=== PATIENT | female | born 1940 | race American Indian/Alaskan Native ===

== ENCOUNTER 2016-04-08 14:31 | Emergency (ER) | payer MEDICARE ==
--- NOTE | 2016-04-08 15:27 | XRay Report ---
PORTABLE CHEST INDICATION: Difficulty breathing. COMPARISON: 11/06/2011 FINDINGS: Portable, frontal chest radiograph again demonstrates post CABG changes with stable cardiomediastinal silhouette, aortic atherosclerotic calcifications and few possible calcified mediastinal lymph nodes. Slightly prominent lung markings may in part be technical. No pleural effusions or CHF. EKG lead. Stable bones. CONCLUSION: No acute disease in the chest, stable. Thank you for the opportunity to participate in this patient's care.
[2016-04-08 16:01] LABS: Anion Gap 21 mmol/L; BUN/Creatinine Ratio 11.25; Blood Urea Nitrogen 18 mg/dL (7-17); Carbon Dioxide 23 mmol/L (22-30); Chloride 101.6 mmol/L (98-107); Glucose 127 mg/dL (65-100); Potassium 4.5 mmol/L (3.6-5.0); Sodium 141 mmol/L (137-145)
[2016-04-08 16:12] LABS: Basophils % (Auto) 0.6 % (0.0-1.8); Hematocrit 37.6 % (30.3-42.9); Hemoglobin 11.8 gm/dl (10.1-14.3); Mean Corpuscular HGB Conc 32 % (30-34); Mean Corpuscular Hemoglobin 27 pg (28-32); Mean Corpuscular Volume 84 fl (79-97); Platelet Count 216 K/mm3 (140-440); Red Blood Count 4.46 M/mm3 (3.65-5.03); Red Cell Distribution Width 15.7 % (13.2-15.2); White Blood Count 6.6 K/mm3 (4.5-11.0)
[2016-04-08] MEDS ORDERED: TESSALON PERLES PO ONE (16:13)
[2016-04-08] MEDS ORDERED: DUONEB 0.5 MG-3 MG/3 ML SOLN IH ONE (16:13)
--- NOTE | 2016-04-08 16:41 | Emergency Department Report ---
HPI - General Chief Complaint: Dyspnea/Respdistress Time Seen by Provider: 04/08/16 15:56 - HPI HPI: The patient is a 75-year-old female with a significant history of asthma, who presents for evaluation of dyspnea. The patient reports dyspnea since last night at 11 PM, greater than 12 hours prior to my evaluation. She states that her dyspnea has been constant since onset, progressive, severe since this morning, exacerbated with exertion, and associated with tightness of the chest. She also reports a mild cough productive of yellow sputum. She states that her symptoms are consistent with her previous asthma exacerbations. The patient denies fever, sore throat, syncope, hemoptysis, unilateral leg swelling , arthralgias, myalgias, rash,, recent immobilization, history of DVT or PE, recent cancer. ED Past Medical Hx - Past Medical History Hx Hypertension: Yes Hx Heart Attack/AMI: Yes (2007) Hx Congestive Heart Failure: Yes Hx Diabetes: Yes Hx Renal Disease: Yes (CKD) Hx Arthritis: Yes Hx Seizures: No Hx Kidney Stones: Yes Hx Asthma: Yes Hx COPD: Yes Hx HIV: No Additional medical history: facial tic - Surgical History Hx Open Heart Surgery: Yes Additional Surgical History: right knee surgery, right foot surgery - Social History Smoking Status: Former Smoker - Medications Home Medications: Home Medications Medication Instructions Recorded Confirmed Last Taken Type Aspirin [Aspirin TAB] 81 mg PO QDAY 04/28/13 08/02/15 08/05/14 History Clopidogrel Bisulfate [Plavix] 75 mg PO DAILY 04/28/13 08/02/15 08/05/14 History Ezetimibe [Zetia] 10 mg PO QDAY 04/28/13 08/02/15 08/09/14 History Famotidine [Pepcid] 20 mg PO DAILY 04/28/13 08/02/15 08/09/14 History Ferrous Sulfate [Ferrous Sulfate 325 mg PO DAILY 04/28/13 08/02/15 08/08/14 History Oral Liq 12.5 Mg/0.83 Ml] Gabapentin 300 mg PO BID 04/28/13 08/02/15 08/09/14 History Ipratropium/Albuterol Sulfate 1 spray IH QID 04/28/13 08/02/15 08/10/14 07:30 History [Combivent Respimat] Metoprolol [Lopressor TAB] 50 mg PO BID 04/28/13 08/02/15 08/10/14 07:30 History Simvastatin 20 mg PO QDAY 04/28/13 08/02/15 08/10/14 07:30 History amLODIPine [Norvasc] 5 mg PO DAILY 04/28/13 08/02/15 08/10/14 07:30 History cloNIDine [Catapres] 0.3 mg PO QHS 04/28/13 08/02/15 08/09/14 21:30 History Budesoni/Formotero 160-4.5(Nf) 2 puff IH BID 11/01/13 08/02/15 08/10/14 07:30 History [Symbicort 160-4.5 (Nf)] Colchicine [Colcrys] 0.6 mg PO DAILY 11/01/13 08/02/15 08/08/14 History HYDROcodone/APAP 7.5-325 [[place] 1 tab PO Q4-6H 08/02/15 08/02/15 Unknown History 7.5-325 mg TAB] Hydrochlorothiazide [HCTZ] 25 mg PO QDAY 08/02/15 08/02/15 Unknown History Montelukast [Singulair] 10 mg PO QPM 08/02/15 08/02/15 Unknown History ProAir HFA Inhaler 2 puff IH Q4-6H 08/02/15 08/02/15 Unknown History Tramadol HCl [traMADol ER 100 MG] 100 mg PO QDAY 08/02/15 08/02/15 Unknown History Budesonide [Pulmicort Respules] 1 mg IH Q12HRT nebu 08/05/15 Unknown Rx predniSONE [Deltasone] 40 mg PO QDAY #5 tablet 08/05/15 Unknown Rx ALBUTEROL Inhaler [ProAir HFA 2 puff IH QID PRN #1 inhalation 04/08/16 Unknown Rx Inhaler] Albuterol Sulfate [Albuterol 0.63% 0.83 mg IH TID PRN #20 vial.neb 04/08/16 Unknown Rx NEBS] Azithromycin [Zithromax Z-KARI] 250 mg PO QDAY #6 tablet 04/08/16 Unknown Rx Benzonatate [Tessalon Perles] 100 mg PO Q8HR #20 capsule 04/08/16 Unknown Rx guaiFENesin [Mucinex] 600 mg PO Q6HR #20 tab.er.12h 04/08/16 Unknown Rx ED Review of Systems ROS: Stated complaint: CRUZITO Other details as noted in HPI Constitutional: denies: fever ENT: denies: throat or neck pain Respiratory: reports cough, shortness of breath Cardiovascular: denies: chest pain Endocrine: denies unexplained weight loss or gain Gastrointestinal: denies: abdominal pain, nausea Genitourinary: denies: dysuria Musculoskeletal: denies: leg swelling Skin: denies: rash Neurological: denies: headache Hematological/Lymphatic: denies: easy bleeding or easy bruising Psych: denies sadness or hopelessness Physical Exam - Physical Exam Vital Signs: Vital Signs 04/08/16 04/08/16 14:40 16:28 Temperature 99.2 F Pulse Rate 42 L Pulse Rate [ 70 Anterior Bilateral Throughout] Respiratory 24 Rate Respiratory 18 Rate [Anterior Bilateral Throughout] Blood Pressure 144/84 [Right] O2 Sat by Pulse 100 Oximetry Physical Exam: General: well-nourished, well-developed, no acute distress Head: Normocephalic, atraumatic Eyes: normal sclera ENT: Mucous membranes are pink and moist Neck: trachea midline, neck supple, No neck stiffness, no cervical adenopathy Respiratory: Mildly diminished breath sounds and wheezing present throughout lung [place] bilaterally Cardio: S1 and S2 present, no murmurs, rubs, gallops, capillary refill is brisk Abdomen: soft abdomen, no tenderness Musc: No pitting edema Skin: No rash Neuro: no facial drooping, normal speech Psych: Normal affect ED Course Vital Signs 04/08/16 04/08/16 14:40 16:28 Temperature 99.2 F Pulse Rate 42 L Pulse Rate [ 70 Anterior Bilateral Throughout] Respiratory 24 Rate Respiratory 18 Rate [Anterior Bilateral Throughout] Blood Pressure 144/84 [Right] O2 Sat by Pulse 100 Oximetry ED Medical Decision Making - Lab Data Result diagrams: 04/08/16 15:25 04/08/16 15:25 - Medical Decision Making The patient was seen and examined by myself. The patient is placed on a insurance marketing rep and continuous pulse ox. On initial evaluation, the patient was found to be in no distress. Evaluation orders were placed. The patient is given Tessalon Perles for her cough and a duoneb breathing treatment for txt of COPD. the patient received Solu-Medrol and magnesium via EMS prior to arrival. Chest x-ray negative for focal consolidation, pleural effusions, pulmonary congestion, pneumothorax, or other acute cardio pulmonary disease process. Lab results are grossly not concerning and are at patient baseline. The patient was reevaluated and reported that their symptoms were markedly improved. The patient is stable for discharge with outpatient follow-up. The patient is given follow-up and return instructions. The patient expressed understanding and agreed with the plan. The patient is given a prescription for prednisone. The patient is discharged in stable condition. Critical care attestation.: If time is entered above; I have spent that time in minutes in the direct care of this critically ill patient, excluding procedure time. ED Disposition Clinical Impression: Acute exacerbation of chronic obstructive pulmonary disease (COPD), Upper respiratory infection, acute Disposition: DISCHARGED TO HOME OR SELFCARE Is pt being admited?: No Does the pt Need Aspirin: No Condition: Stable Instructions: Upper Respiratory Infection (ED), Chronic Obstructive Pulmonary Disease (ED), Viral Syndrome (ED) Prescriptions: ALBUTEROL Inhaler [ProAir HFA Inhaler] 2 puff IH QID PRN #1 inhalation PRN Reason: Shortness Of Breath Albuterol Sulfate [Albuterol 0.63% NEBS] 0.83 mg IH TID PRN #20 vial.neb PRN Reason: Wheezing Azithromycin [Zithromax Z-KARI] 250 mg PO QDAY #6 tablet Benzonatate [Tessalon Perles] 100 mg PO Q8HR #20 capsule guaiFENesin [Mucinex] 600 mg PO Q6HR #20 tab.er.12h Referrals: PRIMARY CARE, [Primary Care Provider] - 3-5 Days Time of Disposition: 16:35
[2016-04-08 17:02] VITALS: BP 120/61
[2016-04-08] MEDS ORDERED: MUCINEX ER PO ONE (17:48)
== END 2016-04-08 17:20 | disposition home or self-care (01) ==
LOC: ED 14:31
DX: J44.1 Chronic obstructive pulmonary disease with (acute) exacerbation (principal); J06.9 Acute upper respiratory infection, unspecified; J45.909 Unspecified asthma, uncomplicated; I25.2 Old myocardial infarction; E11.22 Type 2 diabetes mellitus with diabetic chronic kidney disease; I13.0 Hypertensive heart and chronic kidney disease with heart failure and stage 1 through stage 4 chronic kidney disease, or unspecified chronic kidney disease; N18.9 Chronic kidney disease, unspecified; I50.9 Heart failure, unspecified; Z87.442 Personal history of urinary calculi; Z98.890 Other specified postprocedural states; Z87.891 Personal history of nicotine dependence; Z91.040 Latex allergy status; Z91.011 Allergy to milk products; Z79.82 Long term (current) use of aspirin; Z79.899 Other long term (current) drug therapy
CPT/HCPCS: 36415; 71010; 80048; 84484; 85025; 93005; 93010; 94640

== ENCOUNTER 2016-05-28 20:35 | Inpatient (IN) | payer MEDICARE ==
[2016-05-28] MEDS ORDERED: MAGNESIUM SULFATE 2GM/50ML 2 GM/50 ML BAG IV ONE (20:38)
[2016-05-28] MEDS: ATROVENT IH ONE ×2 (20:39→20:53)
[2016-05-28] MEDS: PROVENTIL IH ONE ×2 (20:39→20:53)
--- NOTE | 2016-05-28 20:42 | Emergency Department Report ---
HPI - General Time Seen by Provider: 05/28/16 20:37 - HPI HPI: Room 21 The patient is a 75-year-old female presenting with a chief complaint of shortness of breath. Patient states for the past 3 days she has had worsening shortness of breath and chest congestion. Patient denies chest pain but admits to feeling as though there is a lot of phlegm in her chest. The patient's symptoms worsened today and EMS was called. EMS states the patient was tripoding upon arrival. The patient was administered albuterol and Atrovent addition to Solu-Medrol 125 mg IV. The patient still complains of shortness of breath upon arrival to the ED Location: Lungs Duration: 3 Days Quality: This of breath Severity:. Moderate Modifying factors: [see above] Context: [see above] Mode of transportation: [not driving] ED Past Medical Hx - Past Medical History Hx Hypertension: Yes Hx Heart Attack/AMI: Yes (2007) Hx Congestive Heart Failure: Yes Hx Diabetes: Yes Hx Renal Disease: Yes (CKD) Hx Arthritis: Yes Hx Kidney Stones: Yes Hx Asthma: Yes Hx COPD: Yes Additional medical history: facial tic - Surgical History Hx Open Heart Surgery: Yes Additional Surgical History: right knee surgery, right foot surgery - Family History Family history: no significant - Social History Smoking Status: Former Smoker - Medications Home Medications: Home Medications Medication Instructions Recorded Confirmed Last Taken Type Aspirin [Aspirin TAB] 81 mg PO QDAY 04/28/13 08/02/15 08/05/14 History Clopidogrel Bisulfate [Plavix] 75 mg PO DAILY 04/28/13 08/02/15 08/05/14 History Ezetimibe [Zetia] 10 mg PO QDAY 04/28/13 08/02/15 08/09/14 History Famotidine [Pepcid] 20 mg PO DAILY 04/28/13 08/02/15 08/09/14 History Ferrous Sulfate [Ferrous Sulfate 325 mg PO DAILY 04/28/13 08/02/15 08/08/14 History Oral Liq 12.5 Mg/0.83 Ml] Gabapentin 300 mg PO BID 04/28/13 08/02/15 08/09/14 History Ipratropium/Albuterol Sulfate 1 spray IH QID 04/28/13 08/02/15 08/10/14 07:30 History [Combivent Respimat] Metoprolol [Lopressor TAB] 50 mg PO BID 04/28/13 08/02/15 08/10/14 07:30 History Simvastatin 20 mg PO QDAY 04/28/13 08/02/15 08/10/14 07:30 History amLODIPine [Norvasc] 5 mg PO DAILY 04/28/13 08/02/15 08/10/14 07:30 History cloNIDine [Catapres] 0.3 mg PO QHS 04/28/13 08/02/15 08/09/14 21:30 History Budesoni/Formotero 160-4.5(Nf) 2 puff IH BID 11/01/13 08/02/15 08/10/14 07:30 History [Symbicort 160-4.5 (Nf)] Colchicine [Colcrys] 0.6 mg PO DAILY 11/01/13 08/02/15 08/08/14 History HYDROcodone/APAP 7.5-325 [[place] 1 tab PO Q4-6H 08/02/15 08/02/15 Unknown History 7.5-325 mg TAB] Montelukast [Singulair] 10 mg PO QPM 08/02/15 08/02/15 Unknown History ProAir HFA Inhaler 2 puff IH Q4-6H 08/02/15 08/02/15 Unknown History Budesonide [Pulmicort Respules] 1 mg IH Q12HRT nebu 08/05/15 Unknown Rx ALBUTEROL Inhaler [ProAir HFA 2 puff IH QID PRN #1 inhalation 04/08/16 Unknown Rx Inhaler] Furosemide [Lasix] 20 mg PO QDAY 05/28/16 05/28/16 Unknown History ED Review of Systems ROS: Stated complaint: CRUZITO Other details as noted in HPI Comment: All other systems reviewed and negative Constitutional: denies: chills, fever Eyes: denies: eye pain, eye discharge, vision change ENT: denies: ear pain, throat pain Respiratory: shortness of breath Cardiovascular: denies: chest pain, palpitations Endocrine: no symptoms reported Gastrointestinal: denies: abdominal pain, nausea, diarrhea Genitourinary: denies: urgency, dysuria, discharge Musculoskeletal: denies: back pain, joint swelling, arthralgia Skin: denies: rash, lesions Neurological: denies: headache, weakness, paresthesias Psychiatric: denies: anxiety, depression Hematological/Lymphatic: denies: easy bleeding, easy bruising Physical Exam - Physical Exam Physical Exam: GENERAL: The patient is well-developed well-nourished female lying on stretcher appearing to be in moderate respiratory discomfort. [] HEENT: Normocephalic. Atraumatic. Extraocular motions are intact. Patient has moist mucous membranes. NECK: Supple. Trachea midline CHEST/LUNGS: Diffuse wheezing. There is moderate respiratory distress noted. HEART/CARDIOVASCULAR: Regular. There is tachycardia. There is no gallop rub or murmur. ABDOMEN: Abdomen is soft, nontender. Patient has normal bowel sounds. There is no abdominal distention. SKIN: There is no rash. There is no edema. There is no diaphoresis. NEURO: The patient is awake, alert, and oriented. The patient is cooperative. The patient has normal speech MUSCULOSKELETAL: There is no evidence of acute injury. ED Medical Decision Making - Lab Data Result diagrams: 05/28/16 20:47 05/28/16 20:47 Laboratory Tests 05/28/16 05/28/16 05/28/16 20:47 20:47 20:47 WBC 8.8 RBC 4.78 Hgb 12.7 Hct 39.6 MCV 83 MCH 27 L MCHC 32 RDW 16.5 H Plt Count 194 Lymph % (Auto) 30.4 [place] % (Auto) 14.0 H Eos % (Auto) 4.2 Baso % (Auto) 0.6 Lymph # 2.7 [place] # 1.2 H Eos # 0.4 Baso # 0.1 Seg Neutrophils % 50.8 Seg Neutrophils # 4.5 PT 13.5 INR 1.04 APTT 29.7 Sodium 145 Potassium 3.6 Chloride 107.1 H Carbon Dioxide 22 Anion Gap 20 BUN 20 H Creatinine 1.6 H Estimated GFR 38 BUN/Creatinine Ratio 12.50 Glucose 119 H Calcium 8.7 Total Creatine Kinase 147 H CK-MB (CK-2) 2.7 CK-MB (CK-2) Rel Index 1.8 Troponin T < 0.010 NT-Pro-B Natriuret Pep 564.7 - Radiology Data Radiology results: image reviewed (chest x-ray) interpreted by me: This x-ray- no definite focal infiltrates, no pneumothorax - Differential Diagnosis COPD exacerbation, CHF exacerbation, pneumonia Critical care attestation.: If time is entered above; I have spent that time in minutes in the direct care of this critically ill patient, excluding procedure time. ED Disposition Clinical Impression: COPD exacerbation, Shortness of breath Disposition: OP ADMITTED IP TO THIS HOSP Is pt being admited?: Yes Does the pt Need Aspirin: No Condition: Fair Instructions: Chronic Obstructive Pulmonary Disease (ED) Time of Disposition: 21:40 (hospitalist paged)
[2016-05-28 21:02] LABS: Basophils % (Auto) 0.6 % (0.0-1.8); Eosinophils % (Auto) 4.2 % (0.0-4.3); Hematocrit 39.6 % (30.3-42.9); Hemoglobin 12.7 gm/dl (10.1-14.3); Mean Corpuscular HGB Conc 32 % (30-34); Mean Corpuscular Hemoglobin 27 pg (28-32); Mean Corpuscular Volume 83 fl (79-97); Platelet Count 194 K/mm3 (140-440); Red Blood Count 4.78 M/mm3 (3.65-5.03); Red Cell Distribution Width 16.5 % (13.2-15.2); White Blood Count 8.8 K/mm3 (4.5-11.0)
[2016-05-28 21:13] LABS: INR 1.04 (0.87-1.13); Partial Thromboplastin Time 29.7 Sec. (24.2-36.6)
--- NOTE | 2016-05-28 21:22 | Admit Criteria Form ---
Admission Criteria Documentation: COPD Clinical Indications for Admission to Inpatient Care (Place 'X' for any and all applicable criteria): Admission is indicated for ANY ONE of the following (1)(2)(3): [ ]I. Acute exacerbation by high-risk comorbidity (e.g., pneumonia, dysrhythmia, heart failure, pleural effusion, pneumothorax) or severe underlying COPD (e.g., steroid dependent) [X ]II. Inpatient admission required rather than observation care (see Chronic Obstructive Pulmonary Disease: Observation Care) because of ANY ONE of the following: [ X]a) New or pre-existing signs or symptoms of COPD (eg, dyspnea or Tachypnea at rest or with minimal activity) that persist despite outpatient and observation care treatment [ ]b) New-onset hypoxemia (room air SaO2 less than 90%, PO2 less than 60 mm Hg (8.0 kPa)) that persists despite outpatient and observation care treatment [ ]c) Worsening of pre-existing hypoxemia (eg, new or increased requirement for supplemental oxygen to maintain oxygenation at baseline level) that persists despite outpatient and observation care treatment, with oxygen treatment needs performable only in acute inpatient setting [ ]d) Hypercarbia (PCO2 greater than 40 mm Hg (5.3 kPa))-induced respiratory acidosis (pH less than 7.35) that persists despite outpatient and observation care treatment [ ]e) Supplemental oxygen or respiratory treatments for over 24 hours that are performable only in acute inpatient setting [ ]f) Chest tube placement with active evacuation (e.g., suction, drainage) (5) [ ]g) Other condition, treatment or monitoring requiring inpatient admission [ ]III. Planned invasive surgical or diagnostic procedures requiring acute- care hospitalization [ ]IV. Acute respiratory failure (e.g., uncompensated hypercarbia, severe hypoxemia) [ ]V. Severe comorbid condition (e.g., severe steroid myopathy, acute vertebral fracture) that has acutely worsened pulmonary function [ ]. Confusion state, lethargy, obtundation, stupor or coma Extended stay beyond goal length of stay may be needed for (31)(32): [ ]a ) Respiratory Failure. [ ]b) Severe or persisting hypoxemia or hypercarbia [ ]c) Severe or persistent dyspnea [ ]d) Comorbidities (e.g. chronic heart failure, atrial fibrillation with rapid response, pneumonia) [ ]e) Malnutrition The original [facility] content created by [facility] has been revised. The portions of the content which have been revised are identified through the use of italic text or in bold, and [facility] has neither reviewed nor approved the modified material. All other unmodified content is copyright [facility]. Please see references footnoted in the original [facility] edition 2016 Admission Criteria Met: Yes
[2016-05-28 21:27] LABS: Creatine Kinase MB 2.7 ng/mL (0.0-4.0)
[2016-05-28 21:28] LABS: Anion Gap 20 mmol/L; Blood Urea Nitrogen 20 mg/dL (7-17); Calcium 8.7 mg/dL (8.4-10.2); Carbon Dioxide 22 mmol/L (22-30); Chloride 107.1 mmol/L (98-107); Creatine Kinase 147 units/L (30-135); Glucose 119 mg/dL (65-100); Potassium 3.6 mmol/L (3.6-5.0); Sodium 145 mmol/L (137-145)
--- NOTE | 2016-05-28 22:59 | XRay Report ---
FINAL REPORT PROCEDURE: XR CHEST 1V AP TECHNIQUE: Chest radiograph anteroposterior view. CPT 44248 HISTORY: shortness of breath COMPARISON: No prior studies are available for comparison. FINDINGS: Heart: Postsurgical changes Mediastinum/Vessels: Normal contour. Lungs/Pleural space: No infiltrate, effusion, or pneumothorax is seen. Bony thorax: No acute osseous abnormality. Life support devices: None. IMPRESSION: No radiographic evidence of acute cardiopulmonary abnormality.
[2016-05-28] MEDS ORDERED: TYLENOL PO PRN (23:40)
[2016-05-28] MEDS ORDERED: MILK OF MAGNESIA PO PRN (23:40)
[2016-05-28] MEDS ORDERED: DULCOLAX PR PRN (23:40)
[2016-05-28] MEDS ORDERED: ZOFRAN IV PRN (23:40)
--- NOTE | 2016-05-28 23:43 | History and Physical Report ---
History of Present Illness Date of examination: 05/28/16 History of present illness: 75 year old woman with history of hypertension, coronary artery disease, CHF, diabetes, chronic kidney disease, gout, COPD comes emergency room with complaints of shortness of breath 3 day. Also complaining of cough productive of yellow phlegm. Patient states she had bleeding on her pad a few days ago, she is not sure if it was vaginal or rectal, he only had one episode Patient denies chest pain, palpitation, abdominal pain, dysuria, frequency, focal weakness, dysarthria, fever chills, polydipsia polyuria, hot or cold intolerance, easy bruisability, or rash or bleeding from mucosal membrane, rhinorrhea, epistaxis, earache, tinnitus, blurry vision, eye discharge, anxiety , depression. Other review of systems negative PAST SURGICAL HISTORY: Right knee, foot surgery, CABG SOCIAL HISTORY: Smoking, no alcohol or drugs FAMILY HISTORY: Hypertension Medications and Allergies Allergies Allergy/AdvReac Type Severity Reaction Status Date / Time latex Allergy Hives Verified 08/02/15 20:42 milk Allergy Rash Verified 08/02/15 14:07 Home Medications Medication Instructions Recorded Confirmed Last Taken Type Aspirin [Aspirin TAB] 81 mg PO QDAY 04/28/13 05/28/16 08/05/14 History Clopidogrel Bisulfate [Plavix] 75 mg PO DAILY 04/28/13 05/28/16 08/05/14 History Ezetimibe [Zetia] 10 mg PO QDAY 04/28/13 05/28/16 08/09/14 History Famotidine [Pepcid] 20 mg PO DAILY 04/28/13 05/28/16 08/09/14 History Ferrous Sulfate [Ferrous Sulfate 325 mg PO DAILY 04/28/13 05/28/16 08/08/14 History Oral Liq 12.5 Mg/0.83 Ml] Gabapentin 300 mg PO BID 04/28/13 05/28/16 08/09/14 History Ipratropium/Albuterol Sulfate 1 spray IH QID 04/28/13 05/28/16 08/10/14 07:30 History [Combivent Respimat] Metoprolol [Lopressor TAB] 50 mg PO BID 04/28/13 05/28/16 08/10/14 07:30 History Simvastatin 20 mg PO QDAY 03/01/3005/28/16 08/10/14 07:30 History amLODIPine [Norvasc] 10 mg PO DAILY 04/28/13 05/28/16 08/10/14 07:30 History cloNIDine [Catapres] 0.1 mg PO QHS 04/28/13 05/28/16 08/09/14 21:30 History Budesoni/Formotero 160-4.5(Nf) 2 puff IH BID 11/01/13 05/28/16 08/10/14 07:30 History [Symbicort 160-4.5 (Nf)] Colchicine [Colcrys] 0.6 mg PO DAILY 11/01/13 05/28/16 08/08/14 History HYDROcodone/APAP 7.5-325 [[place] 1 tab PO Q4-6H 08/02/15 05/28/16 Unknown History 7.5-325 mg TAB] Montelukast [Singulair] 10 mg PO QPM 08/02/15 05/28/16 Unknown History ProAir HFA Inhaler 2 puff IH Q4-6H 08/02/15 05/28/16 Unknown History Budesonide [Pulmicort Respules] 1 mg IH Q12HRT nebu 08/05/15 05/28/16 Unknown Rx ALBUTEROL Inhaler [ProAir HFA 2 puff IH QID PRN #1 inhalation 04/08/16 05/28/16 Unknown Rx Inhaler] Furosemide [Lasix] 20 mg PO QDAY 05/28/16 05/28/16 Unknown History Exam - Physical Exam Narrative exam: Gen. appearance: Patient lying in bed, no apparent distress HEENT: Normocephalic, atraumatic, pupils equally round and reactive to light, extraocular movement intact, and no sclericterus,. No JVD or thyromegaly or nodule,neck supple, no carotid bruit ,mucous membranes moist, no exudate or erythema Heart: S1, S2, regular rate and rhythm Lungs: Wheezing bilaterally, breathing comfortable Abdomen: Positive bowel sounds, nontender, nondistended, no organomegaly Extremity: No edema, cyanosis, clubbing Skin: No rash, nodules, warm, dry Neuro: Oriented 3, cranial nerves II-12 intact, speech is fluent, motor and sensory intact Rectal: brown stool, heme negative - Constitutional Vitals: Temp Pulse Resp BP Pulse Ox 98.2 F 85 22 135/69 95 05/28/16 20:35 05/28/16 23:41 05/28/16 23:41 05/28/16 23:41 05/28/16 23:41 Results - Labs CBC & Chem 7: 05/28/16 20:47 05/28/16 20:47 Labs: Abnormal lab results 05/28/16 05/28/16 Range/Units 20:47 20:47 MCH 27 L (28-32) pg RDW 16.5 H (13.2-15.2) % [place] % (Auto) 14.0 H (0.0-7.3) % [place] # 1.2 H (0.0-0.8) K/mm3 Chloride 107.1 H (98-107) mmol/L BUN 20 H (7-17) mg/dL Creatinine 1.6 H (0.7-1.2) mg/dL Glucose 119 H (65-100) mg/dL Total Creatine Kinase 147 H (30-135) units/L - Imaging and Cardiology EKG: image reviewed Chest x-ray: image reviewed Assessment and Plan COPD exacerbation Probably vaginal bleed Hypertension Diabetes Coronary artery disease CHF, stable Chronic kidney disease Gout Admits medicine Start high-dose IV steroids, nebulizer treatments Monitor hemoglobin, consult [employer] Dvt prophylaxis with SCD, check fingersticks and initiate insulin sliding scale hold aspirin, plavix Continue appropriate outpatient medications
[2016-05-29] MEDS: DUONEB 0.5 MG-3 MG/3 ML SOLN IH SCH ×4 (02:05→21:52)
[2016-05-29 05:52] LABS: Hematocrit 36.8 % (30.3-42.9); Hemoglobin 11.6 gm/dl (10.1-14.3); Mean Corpuscular HGB Conc 32 % (30-34); Mean Corpuscular Hemoglobin 27 pg (28-32); Mean Corpuscular Volume 84 fl (79-97); Platelet Count 178 K/mm3 (140-440); Red Blood Count 4.36 M/mm3 (3.65-5.03); Red Cell Distribution Width 17.1 % (13.2-15.2); White Blood Count 7.4 K/mm3 (4.5-11.0)
[2016-05-29 06:13] LABS: BUN/Creatinine Ratio 14.11; Calcium 8.7 mg/dL (8.4-10.2); Chloride 104.3 mmol/L (98-107)
[2016-05-29 07:01] LABS: Basophils % (Manual) 0 % (0.0-1.8); Blastocytes % (Manual) 0 %; Eosinophils % (Manual) 0 % (0.0-4.3); RBC Morphology Normal
[2016-05-29 07:02] LABS: Diff Status Complete
[2016-05-29] MEDS: PULMICORT IH SCH ×2 (08:04→20:06)
[2016-05-29] MEDS: BROVANA NEBU IH SCH ×2 (08:06→20:06)
[2016-05-29] MEDS: FEOSOL PO SCH (09:46)
[2016-05-29] MEDS: PEPCID PO SCH (09:46)
[2016-05-29] MEDS: NEURONTIN PO SCH ×2 (09:47→21:48)
[2016-05-29] MEDS: LASIX PO SCH (09:47)
[2016-05-29] MEDS: LOPRESSOR PO SCH ×2 (09:47→21:48)
[2016-05-29] MEDS: ZETIA PO SCH (09:47)
[2016-05-29] MEDS: COLCRYS PO SCH (09:47)
[2016-05-29] MEDS: NORVASC PO SCH (09:48)
[2016-05-29] MEDS ORDERED: NON-FORMULARY (Budesoni/Formotero 160-4.5(Nf) 2 PUFF) IH SCH (10:00)
[2016-05-30] MEDS: DUONEB 0.5 MG-3 MG/3 ML SOLN IH SCH ×3 (01:40→13:39)
--- NOTE | 2016-05-30 06:04 | Consultation ---
History of Present Illness Consult date: 05/30/16 History of present illness: Vaginal bleeding This is a 75-year-old female 3 para 3 who presented today to the emergency department with COPD exacerbation. Patient is a poor historian. She states she's had some vaginal bleeding intermittently when she has excessive coughing. Patient states she noticed spotting prior to her admission after she into the bathroom. She also had one episode of 1 spot of blood on toilet paper when she went to the bathroom this admission. She denies any vaginal bleeding now. Patient states she does not remember when her last mammogram and Pap smear was performed. Past History Past Medical History: other (See hospitalist's H&P) Past Surgical History: denies: CRAB PICKER/uterine surgery, section CRAB PICKER History: other (she gives a history of an STD but she was unsure of which one. She denies abnormal Pap smears or abnormal mammograms however she hasn't had either she can't remember the last time she had a Pap or a mammogram.) Medications and Allergies Allergies Allergy/AdvReac Type Severity Reaction Status Date / Time latex Allergy Hives Verified 08/02/15 20:42 milk Allergy Rash Verified 08/02/15 14:07 Home Medications Medication Instructions Recorded Confirmed Last Taken Type Aspirin [Aspirin TAB] 81 mg PO QDAY 04/28/13 05/28/16 08/05/14 History Clopidogrel Bisulfate [Plavix] 75 mg PO DAILY 04/28/13 05/28/16 08/05/14 History Ezetimibe [Zetia] 10 mg PO QDAY 04/28/13 05/28/16 08/09/14 History Famotidine [Pepcid] 20 mg PO DAILY 04/28/13 05/28/16 08/09/14 History Ferrous Sulfate [Ferrous Sulfate 325 mg PO DAILY 04/28/13 05/28/16 08/08/14 History Oral Liq 12.5 Mg/0.83 Ml] Gabapentin 300 mg PO BID 04/28/13 05/28/16 08/09/14 History Ipratropium/Albuterol Sulfate 1 spray IH QID 04/28/13 05/28/16 08/10/14 07:30 History [Combivent Respimat] Metoprolol [Lopressor TAB] 50 mg PO BID 04/28/13 05/28/1615 07:30 History Simvastatin 20 mg PO QDAY 04/28/13 05/28/16 08/10/14 07:30 History amLODIPine [Norvasc] 10 mg PO DAILY 04/28/13 05/28/16 08/10/14 07:30 History cloNIDine [Catapres] 0.1 mg PO QHS 04/28/13 05/28/16 08/09/14 21:30 History Budesoni/Formotero 160-4.5(Nf) 2 puff IH BID 11/01/13 05/28/16 08/10/14 07:30 History [Symbicort 160-4.5 (Nf)] Colchicine [Colcrys] 0.6 mg PO DAILY 11/01/13 05/28/16 08/08/14 History HYDROcodone/APAP 7.5-325 [[place] 1 tab PO Q4-6H 08/02/15 05/28/16 Unknown History 7.5-325 mg TAB] Montelukast [Singulair] 10 mg PO QPM 08/02/15 05/28/16 Unknown History ProAir HFA Inhaler 2 puff IH Q4-6H 08/02/15 05/28/16 Unknown History Budesonide [Pulmicort Respules] 1 mg IH Q12HRT nebu 08/05/15 05/28/16 Unknown Rx ALBUTEROL Inhaler [ProAir HFA 2 puff IH QID PRN #1 inhalation 04/08/16 05/28/16 Unknown Rx Inhaler] Furosemide [Lasix] 20 mg PO QDAY 05/28/16 05/28/16 Unknown History Active Meds: Active Medications Acetaminophen (Tylenol) 650 mg PO Q4H PRN PRN Reason: Pain MILD(1-3)/Fever >100.5/HERRMANN Albuterol/Ipratropium (Duoneb 0.5 Mg-3 Mg/3 Ml Soln) 1 ampul IH Q6HRT [facility] Last Admin: 05/30/16 01:40 Dose: 1 ampul Amlodipine Besylate (Norvasc) 10 mg PO DAILY [facility] Last Admin: 05/29/16 09:48 Dose: 10 mg Arformoterol Tartrate (Brovana Nebu) 15 mcg IH Q12HRT [facility] Last Admin: 05/29/16 20:06 Dose: 15 mcg Bisacodyl (Dulcolax) 10 mg VT QDAY PRN PRN Reason: Constipation unrelieved by MOM Budesonide (Pulmicort) 1 mg IH Q12HRT [facility] Last Admin: 05/29/16 20:06 Dose: 1 mg Colchicine (Colcrys) 0.6 mg PO DAILY [facility] Last Admin: 05/29/16 09:47 Dose: 0.6 mg Ezetimibe (Zetia) 10 mg PO QDAY [facility] Last Admin: 05/29/16 09:47 Dose: 10 mg Famotidine (Pepcid) 20 mg PO DAILY [facility] Last Admin: 05/29/16 09:46 Dose: 20 mg Ferrous Sulfate (Feosol) 325 mg PO DAILY [facility] Last Admin: 05/29/16 09:46 Dose: 325 mg Furosemide (Lasix) 20 mg PO QDAY [facility] Last Admin: 05/29/16 09:47 Dose: 20 mg Gabapentin (Neurontin) 300 mg PO BID [facility] Last Admin: 05/29/16 21:48 Dose: 300 mg Magnesium Hydroxide (Milk Of Magnesia) 30 ml PO Q4H PRN PRN Reason: Constipation Methylprednisolone Sodium Succinate (Solu-Medrol) 125 mg IV Q6H [facility] Last Admin: 05/30/16 01:14 Dose: 125 mg Metoprolol Tartrate (Lopressor) 50 mg PO BID [facility] Last Admin: 05/29/16 21:48 Dose: 50 mg Ondansetron HCl (Zofran) 4 mg IV Q8H PRN PRN Reason: N/V unrelieved by Reglan - Vital Signs Vital signs: Vital Signs Temp Pulse Resp BP Pulse Ox 98.2 F 95 H 40 H 141/104 95 05/28/16 20:35 05/28/16 20:35 05/28/16 20:35 05/28/16 20:35 05/28/16 20:35 Temp Pulse Resp BP Pulse Ox 97.6 F 80 24 168/86 100 05/30/16 04:00 05/30/16 04:00 05/30/16 04:00 05/30/16 04:00 05/30/16 04:00 - Physical Exam Genitourinary (Female): Positive: normal external genitalia, normal perenium Vulva: both: normal ( atrophy) Vagina: Positive: other (blood on the glove noted after the exam.) Adnexa: both: normal Results Result Diagrams: 05/29/16 04:33 05/29/16 04:33 Abnormal lab results 05/29/16 05/29/16 05/29/16 Range/Units 04:33 04:33 07:51 MCH 27 L (28-32) pg RDW 17.1 H (13.2-15.2) % Seg Neuts % (Manual) 92.0 H (40.0-70.0) % Lymphocytes % (Manual) 4.0 L (13.4-35.0) % Lymphocytes # (Manual) 0.3 L (1.2-5.4) K/mm3 Carbon Dioxide 20 L (22-30) mmol/L BUN 24 H (7-17) mg/dL Creatinine 1.7 H (0.7-1.2) mg/dL Glucose 208 H (65-100) mg/dL POC Glucose 154 H (70-105) 05/29/16 05/29/16 Range/Units 11:18 16:38 MCH (28-32) pg RDW (13.2-15.2) % Seg Neuts % (Manual) (40.0-70.0) % Lymphocytes % (Manual) (13.4-35.0) % Lymphocytes # (Manual) (1.2-5.4) K/mm3 Carbon Dioxide (22-30) mmol/L BUN (7-17) mg/dL Creatinine (0.7-1.2) mg/dL Glucose (65-100) mg/dL POC Glucose 198 H 178 H (70-105) All other labs normal. Assessment and Plan - Patient Problems (1) Vaginal bleeding Current Visit: Yes Status: Acute Plan to address problem: No evidence of uterine or vaginal bleeding at this time. She needs to follow-up in our office after discharge for her gynecologic evaluation. Will sign off at this time.
[2016-05-30] MEDS ORDERED: DUONEB 0.5 MG-3 MG/3 ML SOLN IH ONE (07:29)
[2016-05-30] MEDS: BROVANA NEBU IH SCH (07:50)
--- NOTE | 2016-05-30 07:59 | Progress Note ---
Assessment and Plan Assessment and plan: Acute on chronic resp failurre due to COPD exacerbation. COPD exacerbation History Interval history: less shortness of breath, less cough wheezing Hospitalist Physical - Physical exam Narrative exam: Gen: Not in acute distress HEENT: Atraumatic, Normocephalic Neck: supple, no JVD Lungs: Decreased breath sounds bilaterally, bilateral rhonchi and wheezing Heart :S1-S2 regular, no murmurs rubs or gallop, Abdomen: soft, non tender,non-distended, normal bowel sounds Ext: No edema, no clubbing, no cyanosis Neuro: Awake, alert.oriented x 3, no focal neurologic signs, Psych: normal mood - Constitutional Vitals: Temp Pulse Resp BP Pulse Ox 97.4 F L 90 16 175/88 96 05/30/16 07:00 05/30/16 07:50 05/30/16 07:50 05/30/16 07:00 05/30/16 07:50 Results - Labs CBC & Chem 7: 05/29/16 04:33 05/29/16 04:33 Labs: Laboratory Last Values WBC 7.4 K/mm3 (4.5-11.0) 05/29/16 04:33 RBC 4.36 M/mm3 (3.65-5.03) 05/29/16 04:33 Hgb 11.6 gm/dl (10.1-14.3) 05/29/16 04:33 Hct 36.8 % (30.3-42.9) 05/29/16 04:33 MCV 84 fl (79-97) 05/29/16 04:33 MCH 27 pg (28-32) L 05/29/16 04:33 MCHC 32 % (30-34) 05/29/16 04:33 RDW 17.1 % (13.2-15.2) H 05/29/16 04:33 Plt Count 178 K/mm3 (140-440) 05/29/16 04:33 Lymph % (Auto) 30.4 % (13.4-35.0) 05/28/16 20:47 [place] % (Auto) 14.0 % (0.0-7.3) H 05/28/16 20:47 Eos % (Auto) 4.2 % (0.0-4.3) 05/28/16 20:47 Baso % (Auto) 0.6 % (0.0-1.8) 05/28/16 20:47 Lymph # 2.7 K/mm3 (1.2-5.4) 05/28/16 20:47 [place] # 1.2 K/mm3 (0.0-0.8) H 05/28/16 20:47 Eos # 0.4 K/mm3 (0.0-0.4) 05/28/16 20:47 Baso # 0.1 K/mm3 (0.0-0.1) 05/28/16 20:47 Add Manual Diff Complete 05/29/16 04:33 Total Counted 100 05/29/16 04:33 Seg Neutrophils % Life Guard 05/29/16 04:33 Seg Neuts % (Manual) 92.0 % (40.0-70.0) H 05/29/16 04:33 Band Neutrophils % 0 % 05/29/16 04:33 Lymphocytes % (Manual) 4.0 % (13.4-35.0) L 05/29/16 04:33 Reactive Lymphs % (Man) 0 % 05/29/16 04:33 Monocytes % (Manual) 4.0 % (0.0-7.3) 05/29/16 04:33 Eosinophils % (Manual) 0 % (0.0-4.3) 05/29/16 04:33 Basophils % (Manual) 0 % (0.0-1.8) 05/29/16 04:33 Metamyelocytes % 0 % 05/29/16 04:33 Myelocytes % 0 % 05/29/16 04:33 Promyelocytes % 0 % 05/29/16 04:33 Blast Cells % 0 % 05/29/16 04:33 Nucleated RBC % Not Reportable 05/29/16 04:33 Seg Neutrophils # 4.5 K/mm3 (1.8-7.7) 05/28/16 20:47 Seg Neutrophils # Man 6.8 K/mm3 (1.8-7.7) 05/29/16 04:33 Band Neutrophils # 0.0 K/mm3 05/29/16 04:33 Lymphocytes # (Manual) 0.3 K/mm3 (1.2-5.4) L 05/29/16 04:33 Abs React Lymphs (Man) 0.0 K/mm3 05/29/16 04:33 Monocytes # (Manual) 0.3 K/mm3 (0.0-0.8) 05/29/16 04:33 Eosinophils # (Manual) 0.0 K/mm3 (0.0-0.4) 05/29/16 04:33 Basophils # (Manual) 0.0 K/mm3 (0.0-0.1) 05/29/16 04:33 Metamyelocytes # 0.0 K/mm3 05/29/16 04:33 Myelocytes # 0.0 K/mm3 05/29/16 04:33 Promyelocytes # 0.0 K/mm3 05/29/16 04:33 Blast Cells # 0.0 K/mm3 05/29/16 04:33 WBC Morphology Not Reportable 05/29/16 04:33 Hypersegmented Neuts Not Reportable 05/29/16 04:33 Hyposegmented Neuts Not Reportable 05/29/16 04:33 Hypogranular Neuts Not Reportable 05/29/16 04:33 Smudge Cells Not Reportable 05/29/16 04:33 Toxic Granulation Not Reportable 05/29/16 04:33 Toxic Vacuolation Not Reportable 05/29/16 04:33 Dohle Bodies Not Reportable 05/29/16 04:33 Pelger-Huet Anomaly Not Reportable 05/29/16 04:33 Ariel Rods Not Reportable 05/29/16 04:33 Platelet Estimate Appears normal 05/29/16 04:33 Clumped Platelets Not Reportable 05/29/16 04:33 Plt Clumps, EDTA Not Reportable 05/29/16 04:33 Large Platelets Not Reportable 05/29/16 04:33 Giant Platelets Not Reportable 05/29/16 04:33 Platelet Satelliting Not Reportable 05/29/16 04:33 Plt Morphology Comment Not Reportable 05/29/16 04:33 RBC Morphology Normal 05/29/16 04:33 Dimorphic RBCs Not Reportable 05/29/16 04:33 Polychromasia Not Reportable 05/29/16 04:33 Hypochromasia Not Reportable 05/29/16 04:33 Poikilocytosis Not Reportable 05/29/16 04:33 Anisocytosis Not Reportable 05/29/16 04:33 Microcytosis Not Reportable 05/29/16 04:33 Macrocytosis Not Reportable 05/29/16 04:33 Spherocytes Not Reportable 05/29/16 04:33 Pappenheimer Bodies Not Reportable 05/29/16 04:33 Sickle Cells Not Reportable 05/29/16 04:33 Target Cells Not Reportable 05/29/16 04:33 Tear Drop Cells Not Reportable 05/29/16 04:33 Ovalocytes Not Reportable 05/29/16 04:33 Helmet Cells Not Reportable 05/29/16 04:33 Edwards-Boone Bodies Not Reportable 05/29/16 04:33 [place] Rings Not Reportable 05/29/16 04:33 [place] Cells Not Reportable 05/29/16 04:33 Bite Cells Not Reportable 05/29/16 04:33 Crenated Cell Not Reportable 05/29/16 04:33 Elliptocytes Not Reportable 05/29/16 04:33 Acanthocytes (Spur) Not Reportable 05/29/16 04:33 Rouleaux Not Reportable 05/29/16 04:33 Hemoglobin C Crystals Not Reportable 05/29/16 04:33 Schistocytes Not Reportable 05/29/16 04:33 Malaria parasites Not Reportable 05/29/16 04:33 [place] Bodies Not Reportable 05/29/16 04:33 Hem Pathologist Commnt No 05/29/16 04:33 PT 13.5 Sec. (12.2-14.9) 05/28/16 20:47 INR 1.04 (0.87-1.13) 05/28/16 20:47 APTT 29.7 Sec. (24.2-36.6) 05/28/16 20:47 Sodium 143 mmol/L (137-145) 05/29/16 04:33 Potassium 4.0 mmol/L (3.6-5.0) 05/29/16 04:33 Chloride 104.3 mmol/L (98-107) 05/29/16 04:33 Carbon Dioxide 20 mmol/L (22-30) L 05/29/16 04:33 Anion Gap 23 mmol/L 05/29/16 04:33 BUN 24 mg/dL (7-17) H 05/29/16 04:33 Creatinine 1.7 mg/dL (0.7-1.2) H 05/29/16 04:33 Estimated GFR 36 ml/min 05/29/16 04:33 BUN/Creatinine Ratio 14.11 % 05/29/16 04:33 Glucose 208 mg/dL (65-100) H 05/29/16 04:33 POC Glucose 178 (70-105) H 05/29/16 16:38 Calcium 8.7 mg/dL (8.4-10.2) 05/29/16 04:33 Total Creatine Kinase 147 units/L (30-135) H 05/28/16 20:47 CK-MB (CK-2) 2.7 ng/mL (0.0-4.0) 05/28/16 20:47 CK-MB (CK-2) Rel Index 1.8 (0-4) 05/28/16 20:47 Troponin T < 0.010 ng/mL (0.00-0.029) 05/28/16 20:47 NT-Pro-B Natriuret Pep 564.7 pg/mL (0-900) 05/28/16 20:47
--- NOTE | 2016-05-30 10:34 | Discharge Summary ---
Providers - Providers Date of Admission: 05/28/16 23:40 Date of discharge: 05/30/16 Attending physician: GLENN PEREZ 05/29/16 02:06 Consult to Physician [CONS] Routine Consulting Provider: ADAM AQUINO Reason For Exam: vag bleed Notified:: service secretary pl call Primary care physician: [employer] Hospitalization Condition: Fair Disposition: DISCHARGED TO HOME OR SELFCARE - Discharge Diagnoses (1) COPD exacerbation Status: Acute Exam - Constitutional Vitals: Temp Pulse Resp BP Pulse Ox 97.4 F L 92 H 16 175/88 96 05/30/16 07:00 05/30/16 08:05 05/30/16 08:05 05/30/16 07:00 05/30/16 07:50 Plan Activity: advance as tolerated Diet: low fat, low cholesterol, low salt Additional Instructions: 1.Follow up with PCP in 1 week. 2.Follow up with Pulmonology in 1 week. 3.Continue Home oxygen continuous at 2 L/m by NC. 4.Follow up with Dr. Covarrubias, Rotary Operator in 1 week Follow up with: [facility] [Provider Group] - 7 Days PRIMARY CARE, [Primary Care Provider] - 7 Days Prescriptions: Azithromycin [Zithromax TAB] 500 mg PO QDAY #5 tablet Prednisone [predniSONE 10 mg (6-Day Pack, 21 Tabs)] 10 mg PO .TAPER #1 tab.ds.pk
[2016-05-30] MEDS: COLCRYS PO SCH (10:44)
[2016-05-30] MEDS: NEURONTIN PO SCH (10:46)
[2016-05-30] MEDS: PEPCID PO SCH (10:46)
[2016-05-30] MEDS: FEOSOL PO SCH (10:46)
[2016-05-30] MEDS: LOPRESSOR PO SCH (10:47)
[2016-05-30] MEDS: LASIX PO SCH (10:48)
[2016-05-30] MEDS: NORVASC PO SCH (10:48)
[2016-05-30] MEDS: ZETIA PO SCH (10:49)
[2016-05-30] MEDS: PULMICORT IH SCH (13:38)
[2016-05-30] MEDS ORDERED: APRESOLINE IV PRN (14:38)
[2016-05-30 17:52] VITALS: BP 138/78
== END 2016-05-30 17:40 | disposition home or self-care (01) | DRG 189 ==
LOC: ED 20:35 → 4A 23:40
PROVIDERS: ADMIT Internal Medicine; ATTEND Internal Medicine
PROC: 5A09357 Assistance with Respiratory Ventilation, Less than 24 Consecutive Hours, Continuous Positive Airway Pressure (ICD-10-PCS; principal; 2016-05-29)
DX: J96.20 Acute and chronic respiratory failure, unspecified whether with hypoxia or hypercapnia (principal); J44.1 Chronic obstructive pulmonary disease with (acute) exacerbation; I13.0 Hypertensive heart and chronic kidney disease with heart failure and stage 1 through stage 4 chronic kidney disease, or unspecified chronic kidney disease; I50.9 Heart failure, unspecified; I25.10 Atherosclerotic heart disease of native coronary artery without angina pectoris; N93.9 Abnormal uterine and vaginal bleeding, unspecified; N18.9 Chronic kidney disease, unspecified; E11.22 Type 2 diabetes mellitus with diabetic chronic kidney disease; M19.90 Unspecified osteoarthritis, unspecified site; Z96.651 Presence of right artificial knee joint; Z87.891 Personal history of nicotine dependence; I25.2 Old myocardial infarction; Z79.82 Long term (current) use of aspirin; Z79.899 Other long term (current) drug therapy; Z82.49 Family history of ischemic heart disease and other diseases of the circulatory system; Z95.1 Presence of aortocoronary bypass graft; Z91.011 Allergy to milk products; Z91.040 Latex allergy status
CPT/HCPCS: 36415; 71010; 80048; 82550; 82553; 82962; 83880; 84484; 85007; 85025; 85610; 85730; 93005; 93010; 94640; 94644; 94660; 94760; 96365; J0360; J2930; J3475

== ENCOUNTER 2016-09-05 10:36 | Inpatient (IN) | payer MEDICARE ==
[2016-09-05] MEDS ORDERED: ATROVENT IH ONE (11:08)
[2016-09-05] MEDS ORDERED: PROVENTIL IH ONE (11:08)
[2016-09-05] MEDS ORDERED: MAGNESIUM SULFATE 2GM/50ML 2 GM/50 ML BAG IV ONE (11:09)
--- NOTE | 2016-09-05 11:15 | Emergency Department Report ---
HPI - General Chief Complaint: Dyspnea/Respdistress Time Seen by Provider: 09/05/16 11:01 - HPI HPI: Room 4 The patient is a 76-year-old female presenting with a chief complaint of wheezing. The patient states for the past 2-3 days she has been wheezing and developed a cough productive of yellow sputum. Patient admits to subjective fever and rhinorrhea. Patient believes her symptoms are consistent with her COPD. Location: Lungs Duration: 2-3 days Quality: Wheezing Severity: Moderate Modifying factors: [see above] Context: [see above] Mode of transportation: Unknown ED Past Medical Hx - Past Medical History Hx Hypertension: Yes Hx Heart Attack/AMI: Yes (2007) Hx Congestive Heart Failure: Yes Hx Diabetes: Yes Hx Renal Disease: Yes (CKD) Hx Arthritis: Yes Hx Kidney Stones: Yes Hx Asthma: Yes Hx COPD: Yes Additional medical history: facial tic - Surgical History Hx Open Heart Surgery: Yes Additional Surgical History: right knee surgery, right foot surgery - Family History Family history: no significant - Social History Smoking Status: Former Smoker (none 20 years) Substance Use Type: None - Medications Home Medications: Home Medications Medication Instructions Recorded Confirmed Last Taken Type Aspirin [Aspirin TAB] 81 mg PO QDAY 04/28/13 05/28/16 08/05/14 History Famotidine [Pepcid] 20 mg PO DAILY 04/28/13 05/28/16 08/09/14 History Ipratropium/Albuterol Sulfate 1 spray IH QID 04/28/13 05/28/16 08/10/14 07:30 History [Combivent Respimat] Metoprolol [Lopressor TAB] 50 mg PO BID 04/28/13 05/28/16 08/10/14 07:30 History Simvastatin 20 mg PO QDAY 04/28/13 05/28/16 08/10/14 07:30 History amLODIPine [Norvasc] 10 mg PO DAILY 04/28/13 05/28/16 08/10/14 07:30 History cloNIDine [Catapres] 0.1 mg PO QHS 04/28/13 05/28/16 08/09/14 21:30 History Budesoni/Formotero 160-4.5(Nf) 2 puff IH BID 11/01/13 05/28/16 08/10/14 07:30 History [Symbicort 160-4.5 (Nf)] Colchicine [Colcrys] 0.6 mg PO DAILY 11/01/13 05/28/16 08/08/14 History Montelukast [Singulair] 10 mg PO QPM 08/02/15 05/28/16 Unknown History ProAir HFA Inhaler 2 puff IH Q4-6H 08/02/15 05/28/16 Unknown History ALBUTEROL Inhaler [ProAir HFA 2 puff IH QID PRN #1 inhalation 04/08/16 05/28/16 Unknown Rx Inhaler] Allopurinol [Zyloprim] 100 mg PO QDAY 09/05/16 09/05/16 09/04/16 History amLODIPine [Norvasc] 10 mg PO DAILY 09/05/16 09/05/16 09/04/16 History ED Review of Systems ROS: Stated complaint: CRUZITO/CHEST PAIN Other details as noted in HPI Comment: All other systems reviewed and negative Constitutional: fever (subjective) Eyes: denies: eye pain, eye discharge, vision change ENT: denies: ear pain, throat pain Respiratory: cough, shortness of breath, wheezing Cardiovascular: denies: chest pain, palpitations Endocrine: no symptoms reported Gastrointestinal: denies: abdominal pain, nausea, diarrhea Genitourinary: denies: urgency, dysuria, discharge Musculoskeletal: denies: back pain, joint swelling, arthralgia Skin: denies: rash, lesions Neurological: denies: headache, weakness, paresthesias Psychiatric: denies: anxiety, depression Hematological/Lymphatic: denies: easy bleeding, easy bruising Physical Exam - Physical Exam Vital Signs: Vital Signs 09/05/16 10:46 Temperature 99.7 F H Pulse Rate 71 Respiratory 20 Rate Blood Pressure 129/62 O2 Sat by Pulse 98 Oximetry Physical Exam: GENERAL: The patient is well-developed well-nourished female sitting on stretcher appearing to be in moderate respiratory distress. [] HEENT: Normocephalic. Atraumatic. Extraocular motions are intact. Patient has moist mucous membranes. NECK: Supple. Trachea midline CHEST/LUNGS: Diffuse wheezing. There is moderate respiratory distress noted. Frequent coughing HEART/CARDIOVASCULAR: Regular. There is no tachycardia. There is no gallop rub or murmur. ABDOMEN: Abdomen is soft, nontender. Patient has normal bowel sounds. There is no abdominal distention. SKIN: There is no rash. There is no edema. There is no diaphoresis. NEURO: The patient is awake, alert, and oriented. The patient is cooperative. The patient has normal speech MUSCULOSKELETAL: There is no evidence of acute injury. ED Course Vital Signs 09/05/16 10:46 Temperature 99.7 F H Pulse Rate 71 Respiratory 20 Rate Blood Pressure 129/62 O2 Sat by Pulse 98 Oximetry ED Medical Decision Making - Lab Data Result diagrams: 09/05/16 11:01 09/05/16 11:01 Laboratory Tests 09/05/16 09/05/16 09/05/16 11:01 11:01 11:01 WBC 15.7 H RBC 4.45 Hgb 12.2 Hct 37.4 MCV 84 MCH 27 L MCHC 33 RDW 15.7 H Plt Count 182 Lymph % (Auto) 12.7 L [place] % (Auto) 8.6 H Eos % (Auto) 0.1 Baso % (Auto) 0.4 Lymph # 2.0 [place] # 1.4 H Eos # 0.0 Baso # 0.1 Seg Neutrophils % 78.2 H Seg Neutrophils # 12.3 H Sodium 143 Potassium 3.9 Chloride 103.2 Carbon Dioxide 21 L Anion Gap 23 BUN 16 Creatinine 1.5 H Estimated GFR 41 BUN/Creatinine Ratio 10.66 Glucose 115 H Calcium 9.0 Total Creatine Kinase 138 H CK-MB (CK-2) 1.0 CK-MB (CK-2) Rel Index 0.7 Troponin T < 0.010 NT-Pro-B Natriuret Pep 5248 H - EKG Data -: EKG Interpreted by Me EKG shows normal: sinus rhythm Rate: normal - EKG Data When compared to previous EKG there are: changes noted Interpretation: nonspecific ST-T wave masha (T-wave inversions in leads V3, V4, V5 , V6.), other (trigeminy) - Radiology Data Radiology results: image reviewed (chest x-ray) interpreted by me: Chest x-ray-left lower lobe pneumonia - Differential Diagnosis COPD exacerbation, ACS, pneumonia, bronchitis Critical care attestation.: If time is entered above; I have spent that time in minutes in the direct care of this critically ill patient, excluding procedure time. ED Disposition Clinical Impression: Shortness of breath, Trigeminy, Chest tightness, Left lower lobe pneumonia, T wave inversion in EKG Disposition: DC-09 OP ADMIT IP TO THIS HOSP Is pt being admited?: Yes Does the pt Need Aspirin: No Condition: Fair Instructions: Bacterial Pneumonia (ED) Referrals: PRIMARY CARE, [Primary Care Provider] - 3-5 Days Time of Disposition: 12:22 (hospitalist paged)
[2016-09-05 11:18] LABS: Basophils % (Auto) 0.4 % (0.0-1.8); Eosinophils % (Auto) 0.1 % (0.0-4.3); Hematocrit 37.4 % (30.3-42.9); Hemoglobin 12.2 gm/dl (10.1-14.3); Mean Corpuscular HGB Conc 33 % (30-34); Mean Corpuscular Hemoglobin 27 pg (28-32); Mean Corpuscular Volume 84 fl (79-97); Platelet Count 182 K/mm3 (140-440); Red Blood Count 4.45 M/mm3 (3.65-5.03); Red Cell Distribution Width 15.7 % (13.2-15.2); White Blood Count 15.7 K/mm3 (4.5-11.0)
[2016-09-05 11:37] LABS: BUN/Creatinine Ratio 10.66; Chloride 103.2 mmol/L (98-107); Potassium 3.9 mmol/L (3.6-5.0)
--- NOTE | 2016-09-05 11:38 | XRay Report ---
PORTABLE CHEST INDICATION: Shortness of breath. COMPARISON: 05/28/2016 FINDINGS: Portable, frontal chest radiograph demonstrates new left lower lung pneumonia. No pleural effusions or CHF. Stable cardiomediastinal silhouette, given the difference in technique. Stable post CABG changes, aortic knob calcifications, EKG leads and osseous structures. CONCLUSION: New left lower lung pneumonia with few other findings, as above. Please correlate. Thank you for the opportunity to participate in this patient's care.
--- NOTE | 2016-09-05 11:48 | Admit Criteria Form ---
Admission Criteria Documentation: PULMONARY DISEASE GRG Clinical Indications for Admission to Inpatient Care ( Place 'X' for any and all applicable criteria): Hospital admission is needed for appropriate care of the patient because of 1 or more of the following(1)(2): [ ]I. Impending or actual respiratory arrest. See Respiratory Failure GRG guideline for severe respiratory disease and long-term mechanical ventilation patients. (3)(4) (5) [ ]II. Severe airflow or ventilation abnormalities (not responsive to emergency and observation care treatment as appropriate) as indicated by 1 or more of the following (6)(7)(8)(9) : [ ]a) PCO2 greater than 42 mm Hg (5.6 kPa) and pH less than 7.35 (new) [ ]b) Documented PCO2 increased more than 5 mm Hg (0.7 kPa) from disease baseline [ ]c) Airflow measurements[A] less than 60% of previous best or predicted (eg, peak expiratory flow rate less than 300 L/min) despite intensive emergent treatment(B) [ ]d) Required respiratory treatments that are performable only in acute inpatient setting [ ]III. Severe respiratory findings (not responsive to emergency and observation care treatment as appropriate) including 1 or more of the following(6)(9)(10): [ ]a) Respiratory distress as indicated by ALL of the following(6)(11): [ ]i) Patient with 1 or more of the following: [ ]1) Dyspnea (difficulty breathing) [ ]2) Tachypnea [ ]3) Abnormal breathing pattern (eg, chest retractions) [ ]4) Other evidence of difficulty breathing [ ]ii) Evidence of respiratory compromise indicated by 1 or more of the following: [ ]1) Hypoxemia [ ]2) Altered mental status [ ]3) Other evidence of respiratory compromise (eg, pulmonary edema on chest x-ray) [ ]b) Stridor [ ]c) Gross hemoptysis(12) [ ]d) Acute cyanosis [ ]IV. Chronic lung disease with severe deterioration (not responsive to emergency and observation care treatment as appropriate) as indicated by 1 or more of the following(7) (13): [ ]a) SaO2 5% below baseline in patient with chronic hypoxemia [ ]b) New requirement for supplemental oxygen to keep SaO2 at baseline or acceptable level [ ]c) Required supplemental oxygen performable only in acute inpatient setting [ ]d) Severe airflow or ventilation abnormalities [ ]e) Previouslymobile patient unable to walk between rooms [ ]f) Inability to eat or sleep due to dyspnea [ ]g) Altered mental status that is severe or persistent [ ]V. Empyema or lung abscess(14)(15) [ ]Vl. Severe atelectasis or lung collapse(16)(17) [ ]Norma. Tuberculosis requiring inpatient treatment as indicated by 1 or more of the following(18)(19)(20)(21): [ ]a) Diagnosis suspected (eg, symptomatic patient from endemic area or in high-risk population, with abnormal chest imaging) and cannot be ruled out within observation care timeframe (ie, sputum analysis, nucleic acid amplification techniques not rapidly available or not diagnostic) [ ]b) Severely symptomatic patient (eg, Hypoxemia, Hemodynamic instability, Tachypnea) [ ]c) Hkhep-ccul-djstiswyf infection suspected in newly diagnosed patient (eg, treatment regimen may require near-term adjustment) [ ]d) Newly diagnosed patient at high-risk of short-term deterioration (eg, HIV positive, frail, immunocompromised, chronic lung disease) [ ]e) High infectivity suspected (eg, laryngeal disease, cavitary pulmonary lesions, ongoing positivity of sputum) and 1 or more of the following: [ ]i) Unexposed household contacts at high risk (eg, immunocompromised, elderly, infants, chronic lung disease) [ ]ii) Patient unable or unwilling to avoid exposing others (eg, significant psychiatric disease, substance abuse, developmental disability) [ ]f) Complication of tuberculosis requiring inpatient treatment (eg , constrictive pericarditis, tubercular meningitis) [ ]g) Hospitalization mandated by public health authority (eg, patient continually noncompliant with directly observed therapy) [ ]VIII. High-risk pulmonary infection as indicated by 1 or more of the following(22)(23)(24)(25): [ ]a) Temperature less than 95 degrees F (35 degrees C) or greater than 103.1 degrees F (39.5 degrees C) [ ]b) Hemodynamic instability [ ]c) Immunocompromised patient (eg, AIDS, post transplant, neutropenic)(26)(27) [ ]d) History of severe COPD(28) [ ]e) History of severely symptomatic congestive heart failure(29) [ ]f) Other high-risk comorbidity (eg, poorly controlled diabetes, cirrhosis, chronic renal insufficiency) [ ]g) Hypoxemia [ ]h) severe stridor (30) [ ]i) Outpatient, observation, or recovery facility therapy has failed, is not appropriate, or is not feasible. [ ]IX. Complications of tracheostomy that remains after emergency or observation level care(31)(32)(33)(34) [ ]X. Respiratory complications of organ transplant (eg, rejection, respiratory failure, respiratory infection)(27) [ ]XI. Severe pulmonary arterial hypertension or pulmonary vascular disease requiring inpatient care indicated by 1 or more of the following(35)(36)(37)(38): [ ]a) Initiation or change of vasodilators (IV, subcutaneous, or inhaled) or other vasoactive medications needed [ ]b) IV anticoagulation needed (eg, immediate anticoagulation necessary, alternatives not appropriate) [ ]c) Arterial or pulmonary artery catheter monitoring needed due to infusion or other treatment [ ]XII. Cystic fibrosis requiring inpatient care as indicated by 1 or more of the following(39)(40): [ ]a) Severe exacerbation that does not respond to intensified home therapy(41) [ ]b) Severe exacerbation with patient unable to perform prescribed treatments at home [ ]c) Pneumonia [ ]d) Pneumothorax(42) [ ]e) Atelectasis [ ]f) Hemoptysis(43) [ ]XIII. Bronchiectasis requiring inpatient care as indicated by 1 or more of the following(44)(45): [ ]a) Respiratory distress [ ]b) Severe exacerbation and outpatient or observation care therapy has failed, is not appropriate, or is not feasible. [ ]XIV. Sarcoidosis requiring inpatient care as indicated by 1 or more of the following(46)(47)(48): [ ]a) Respiratory distress [ ]b) Cardiac involvement with arrhythmia(49) [ ]c) Outpatient or observation care therapy has failed, is not appropriate, or is not feasible. [ ]XV. Intestitial lung disease requiring inpatient care as indicated by 1 or more of the following(50)(51): [ ]a) Respiratory distress [ ]b) Severe exacerbation and outpatient or observation care therapy has failed, is not appropriate, or is not feasible [ ]XVI. Allergic pneumonitis requiring inpatient care as indicated by 1 or more of the following(52): [ ]a) Respiratory distress [ ]b) Acute eosinophilic pneumonia [ ]c) [place] with cardiac involvement [ ]d) Outpatient or observation care therapy has failed, is not appropriate, or is not feasible [ ]XVIl. Severe right heart failure requiring inpatient care as indicated by 1 or more of the following(35)(53)(54): [ ]a) Respiratory distress [ ]b) Debilitating anasarca that remains after emergency or observation level care (eg, tissue [ ]c) breakdown with severe infection, inability to void due to edema) [C](41)(42)(43)(44) [ ]d) Hemodynamic instability [ ]e) Syncope [ ]f) Angina that requires inpatient care (eg, not treatable in emergency or observation level of care) [ ]g) Increasing organ failure (eg, liver congestion with significant and worsening or new elevation of transaminases) [ ]XVIll. Injury requiring inpatient care (medical) as indicated by 1 or more of the following(59)(60)(61) [ ]a) Significant inhalation injury (eg, smoke inhalation, other toxic inhalation)(62)(63)(64) [ ]b) Airway obstruction that remains or is unstable after emergency or observation level care(65)(66) [ ]c) Severe pain requiring acute inpatient management [ ]d) Lung contusion(67) [ ]e) Flail chest(68) [ ]f) Bronchial tree injury [ ]g) Air or fat emboli [ ]h) Other injury not treatable in emergency or observation level care (eg, hemothorax)(55) [ ]XlX. Pulmonary hemorrhage or significant hemoptysis(12)(43)(69) [ ]XXl. Complications of transplanted lung indicated by 1 or more of the following(70)(71) [ ]a) Acute graft rejection requiring inpatient management (eg, intravenous immunosuppression)(72)(73)(74) [ ]b) Failure of transplant lung as indicated by 1 or more of the following(75)(76): [ ]i) Anastomotic leak [ ]ii) Airway ischemia or necrosis [ ]iii) Airway fistula [ ]iv) Obstructing granulation tissue requiring intervention [ ]v) Bronchial stenosis or stricture requiring intervention [ ]vi) Tracheobronchomalacia requiring intervention [ ]vii) Severe airflow or ventilation abnormalities [ ]viii) Severe respiratory findings [ ]c) Infection requiring inpatient management (eg, Hemodynamic instability, need for intravenous antimicrobial treatment)(77)(78)(79)(80)(81)(82 [ ]d) Other complication of transplanted lung (eg, obliterative bronchiolitis, plastic bronchitis, thrombotic microangiopathy, constrictive pericarditis) requiring inpatient management(83)(84)(85)(86)(87) [ ]XXll. Inpatient palliative care needed.[D](88)(89)(90)(91) [X ]XXlll. Pulmonary Disease condition, symptom, or finding for which emergency and observation care have failed or are not considered appropriate. The original [facility] content created by [employer] has been revised. The portions of the content which have been revised are identified through the use of italic text or in bold, and [facility] has neither reviewed nor approved the modified material. All other unmodified content is copyright [facility]. Please see references footnoted in the original [facility] edition 2017 Admission Criteria Met: Yes
[2016-09-05 12:04] LABS: Creatine Kinase 138 units/L (30-135)
[2016-09-05] MEDS: ZOSYN/NS 3.375GM/50ML 3.375 GM/50 ML BAG IV SCH ×3 (13:16→23:56)
[2016-09-05] MEDS ORDERED: NACL 0.9% 1000 ML IV ONE (13:52)
[2016-09-05] MEDS ORDERED: DUONEB *Not for PRN Use IH (13:52)
[2016-09-05] MEDS ORDERED: ZOFRAN IV PRN (13:52)
[2016-09-05] MEDS ORDERED: DULCOLAX PR PRN (13:52)
[2016-09-05] MEDS ORDERED: TYLENOL PO PRN (13:52)
[2016-09-05] MEDS ORDERED: MILK OF MAGNESIA PO PRN (13:52)
[2016-09-05] MEDS: NACL 0.45% 1000 ML 1,000 ML IV SCH (14:22)
--- NOTE | 2016-09-05 15:03 | History and Physical Report ---
History of Present Illness Chief complaint: I cant breathe, and jessie been coughing History of present illness: 76 YO Female with HTN, MD, CHF, CKD, DM, Asthma, COPD presents to ED for evaluation. Pt states that she has experienced shortness of breath for the past 3 days wit worsening symptoms over the past day. Pt also acknowledges productive cough of yellow sputum, subjective fever, and runny nose. Pt denies shaking chills, CP, Palpitations, NVD, syncope, recent ill contacts, skin rashes , BRBPR, trauma. Past History Past Medical History: CAD, COPD, diabetes, heart failure, hypertension, renal failure Past Surgical History: CABG, Other (R Knee/Foot surgery) Social history: single. denies: smoking, alcohol abuse, prescription drug abuse Family history: no significant family history, diabetes, hypertension Medications and Allergies Allergies Allergy/AdvReac Type Severity Reaction Status Date / Time latex Allergy Hives Verified 09/05/16 10:49 milk Allergy Rash Verified 09/05/16 10:49 Home Medications Medication Instructions Recorded Confirmed Last Taken Type Aspirin [Aspirin TAB] 81 mg PO QDAY 04/28/13 09/05/16 09/04/16 History Famotidine [Pepcid] 20 mg PO DAILY 04/28/13 09/05/16 09/04/16 History Ipratropium/Albuterol Sulfate 1 spray IH QID 04/28/13 09/05/16 09/04/16 History [Combivent Respimat] Metoprolol [Lopressor TAB] 50 mg PO BID 04/28/13 09/05/16 09/04/16 History Simvastatin 20 mg PO QDAY 04/28/13 09/05/16 09/04/16 History amLODIPine [Norvasc] 10 mg PO DAILY 04/28/13 09/05/16 09/04/16 History cloNIDine [Catapres] 0.1 mg PO BID 04/28/13 09/05/16 09/04/16 History Budesoni/Formotero 160-4.5(Nf) 2 puff IH BID 11/01/13 09/05/16 09/04/16 History [Symbicort 160-4.5 (Nf)] Colchicine [Colcrys] 0.6 mg PO DAILY 11/01/13 09/05/16 09/04/16 History Montelukast [Singulair] 10 mg PO QPM 08/02/15 09/05/16 09/04/16 History ProAir HFA Inhaler 2 puff IH Q4-6H 08/02/15 09/05/16 09/04/16 History ALBUTEROL Inhaler [ProAir HFA 2 puff IH QID PRN #1 inhalation 04/08/16 09/05/16 09/04/16 Rx Inhaler] Allopurinol [Zyloprim] 100 mg PO QDAY 09/05/16 09/05/16 09/04/16 History amLODIPine [Norvasc] 10 mg PO DAILY 09/05/16 09/05/16 09/04/16 History Active Meds: Active Medications Acetaminophen (Tylenol) 650 mg PO Q4H PRN PRN Reason: Pain MILD(1-3)/Fever >100.5/HERRMANN Albuterol (Proventil) 2.5 mg IH Q4HRT PRN PRN Reason: Shortness Of Breath Bisacodyl (Dulcolax) 10 mg [place] QDAY PRN PRN Reason: Constipation unrelieved by MOM Piperacillin Sod/Tazobactam Sod (Zosyn/Ns 3.375gm/50ml) 3.375 gm in 50 mls @ 100 mls/hr IV Q6HR [facility] Last Admin: 09/05/16 13:16 Dose: 100 mls/hr Sodium Chloride (Nacl 0.45% 1000 Ml) 1,000 mls @ 75 mls/hr IV DIRECT KVNG Last Admin: 09/05/16 14:22 Dose: 75 mls/hr Azithromycin 500 mg/ Sodium (Chloride) 250 mls @ 250 mls/hr IV Q24HR KVNG Ceftriaxone Sodium (Rocephin/Ns 2 Gm/100 Ml) 2 gm in 100 mls @ 200 mls/hr IV Q24HR KVNG PRN Reason: Protocol Magnesium Hydroxide (Milk Of Magnesia) 30 ml PO Q4H PRN PRN Reason: Constipation Ondansetron HCl (Zofran) 4 mg IV Q8H PRN PRN Reason: N/V unrelieved by Reglan Review of Systems All systems: negative Constitutional: no weight loss Ears, nose, mouth and throat: no ear pain Breasts: no swelling Cardiovascular: no orthopnea Respiratory: cough with sputum Gastrointestinal: no abdominal pain Genitourinary Female: no dyspareunia Menstruation: no ammenorrhea Rectal: no pain Musculoskeletal: no neck stiffness Integumentary: no rash Neurological: no head injury Psychiatric: no anxiety Endocrine: no cold intolerance Hematologic/Lymphatic: no easy bruising Allergic/Immunologic: no urticaria Exam - Constitutional Vitals: Temp Pulse Resp BP Pulse Ox 99.7 F H 98 H 22 142/75 98 09/05/16 10:46 09/05/16 13:20 09/05/16 13:20 09/05/16 13:20 09/05/16 13:20 General appearance: Present: mild distress - EENT Eyes: Present: PERRL ENT: hearing intact, clear oral mucosa - Neck Neck: Present: supple, normal ROM - Respiratory Respiratory: bilateral: diminished - Cardiovascular Heart Sounds: Present: S1 & S2. Absent: rub, click - Extremities Extremities: pulses symmetrical, No edema Peripheral Pulses: within normal limits - Abdominal General gastrointestinal: Present: soft, non-tender, non-distended, normal bowel sounds Female genitourinary: Present: normal - Integumentary Integumentary: Present: clear, dry, decreased turgor - Musculoskeletal Musculoskeletal: generalized weakness - Psychiatric Psychiatric: appropriate mood/affect, intact judgment & insight - Neurologic Neurologic: CNII-XII intact, moves all extremities Results - Labs CBC & Chem 7: 09/05/16 11:01 09/05/16 11:01 Labs: Abnormal lab results 09/05/16 09/05/16 09/05/16 Range/Units 11:01 11:01 11:01 WBC 15.7 H (4.5-11.0) K/mm3 MCH 27 L (28-32) pg RDW 15.7 H (13.2-15.2) % Lymph % (Auto) 12.7 L (13.4-35.0) % [place] % (Auto) 8.6 H (0.0-7.3) % [place] # 1.4 H (0.0-0.8) K/mm3 Seg Neutrophils % 78.2 H (40.0-70.0) % Seg Neutrophils # 12.3 H (1.8-7.7) K/mm3 Carbon Dioxide 21 L (22-30) mmol/L Creatinine 1.5 H (0.7-1.2) mg/dL Glucose 115 H (65-100) mg/dL Total Creatine Kinase 138 H (30-135) units/L NT-Pro-B Natriuret Pep 5248 H (0-900) pg/mL Assessment and Plan - Patient Problems (1) Sepsis Current Visit: Yes Status: Acute Qualifiers: Sepsis type: S Plan to address problem: Sepsis Protocol: IV abx, ivf, monitor uop q shift, serial lactate, blood culture , (2) Acute and chronic respiratory failure Current Visit: No Status: Acute Qualifiers: Respiratory failure complication: hypoxia Qualified Code(s): J96.21 - Acute and chronic respiratory failure with hypoxia Plan to address problem: Supplemental oxygen, nebulizer therapy, aspiration precautions, NIPPV as clinically indicated (3) Pneumonia Current Visit: Yes Status: Acute Qualifiers: Pneumonia type: P Aspiration pneumonia type: A Laterality: L Lung location: L Plan to address problem: Pneumonia protocol: IV abx, supplemental oxygen, nebs, blood culture, repeat cbc (4) COPD exacerbation Current Visit: Yes Status: Acute Plan to address problem: Treat pneumonia, supportive care, incentive spirometry, nebulizer therapy (5) ARF (acute renal failure) Current Visit: Yes Status: Acute Qualifiers: Acute renal failure type: A Plan to address problem: IVF replacement, monitor uop q shift, urine electrolytes. (6) Metabolic acidosis Current Visit: Yes Status: Acute Plan to address problem: Treat sepsis/pneumonia, IVF, repeat bmp, serial lactate (7) DVT prophylaxis Current Visit: Yes Status: Acute
[2016-09-05] MEDS: PROVENTIL IH PRN (18:40)
[2016-09-05] MEDS ORDERED: NACL 0.45% 1000 ML IV ONE (21:00)
[2016-09-06] MEDS: PROVENTIL IH PRN ×3 (00:29→12:20)
[2016-09-06] MEDS: NACL 0.45% 1000 ML 1,000 ML IV SCH ×2 (02:19→17:18)
[2016-09-06] MEDS: ZOSYN/NS 3.375GM/50ML 3.375 GM/50 ML BAG IV SCH ×2 (05:40→13:42)
[2016-09-06] MEDS: DUONEB *Not for PRN Use IH SCH ×3 (07:05→20:01)
[2016-09-06 08:52] LABS: Hematocrit 34.2 % (30.3-42.9); Hemoglobin 10.8 gm/dl (10.1-14.3); Mean Corpuscular HGB Conc 32 % (30-34); Mean Corpuscular Hemoglobin 27 pg (28-32); Mean Corpuscular Volume 85 fl (79-97); Platelet Count 156 K/mm3 (140-440); Red Cell Distribution Width 16.4 % (13.2-15.2); White Blood Count 13.4 K/mm3 (4.5-11.0)
--- NOTE | 2016-09-06 09:00 | Progress Note ---
Assessment and Plan Assessment and plan: Acute on chronic respiratory failure due to pneumonia and COPD exacerbation. Supplemental Oxygen Pneumonia left lower lobe. Started on Rocephin and Zithromax. Blood cultures ordered. Consult her it compliance analyst, Dr. Garriod. COPD exacerbation. She started on Solu-Medrol, DuoNeb Coronary artery disease, stable Diabetes mellitus type II. Check fingerstick glucose before every meal and at bedtime. CKD DVT prophylaxis with heparin Full code status History Interval history: Shortness of breath, cough, wheezing Hospitalist Physical - Physical exam Narrative exam: Gen Appearance: No acute distress, HEENT: normocephalic, atraumatic Neck: supple, no JVD Lungs: Rales right base, bilateral rhonchi. Heart: S1 and S2 regular, no murmurs or gallop Abdomen: Soft,non-tender, non-distended, normal bowel sounds Extremity: No edema, clubbing or cyanosis Neuro : Awake, alert,oriented x 3, moves all extremities - Constitutional Vitals: Temp Pulse Resp BP Pulse Ox 98.8 F 108 H 18 139/73 99 09/06/16 08:00 09/06/16 08:00 09/06/16 08:00 09/06/16 08:00 09/06/16 08:00 General appearance: Present: mild distress Results - Labs CBC & Chem 7: 09/06/16 08:18 09/06/16 08:18 Labs: Laboratory Last Values WBC 13.4 K/mm3 (4.5-11.0) H 09/06/16 08:18 RBC 4.00 M/mm3 (3.65-5.03) 09/06/16 08:18 Hgb 10.8 gm/dl (10.1-14.3) 09/06/16 08:18 Hct 34.2 % (30.3-42.9) 09/06/16 08:18 MCV 85 fl (79-97) 09/06/16 08:18 MCH 27 pg (28-32) L 09/06/16 08:18 MCHC 32 % (30-34) 09/06/16 08:18 RDW 16.4 % (13.2-15.2) H 09/06/16 08:18 Plt Count 156 K/mm3 (140-440) 09/06/16 08:18 Lymph % (Auto) 12.7 % (13.4-35.0) L 09/05/16 11:01 [place] % (Auto) 8.6 % (0.0-7.3) H 09/05/16 11:01 Eos % (Auto) 0.1 % (0.0-4.3) 09/05/16 11:01 Baso % (Auto) 0.4 % (0.0-1.8) 09/05/16 11:01 Lymph # 2.0 K/mm3 (1.2-5.4) 09/05/16 11:01 [place] # 1.4 K/mm3 (0.0-0.8) H 09/05/16 11:01 Eos # 0.0 K/mm3 (0.0-0.4) 09/05/16 11:01 Baso # 0.1 K/mm3 (0.0-0.1) 09/05/16 11:01 Seg Neutrophils % 78.2 % (40.0-70.0) H 09/05/16 11:01 Seg Neutrophils # 12.3 K/mm3 (1.8-7.7) H 09/05/16 11:01 Sodium 143 mmol/L (137-145) 09/05/16 11:01 Potassium 3.9 mmol/L (3.6-5.0) 09/05/16 11:01 Chloride 103.2 mmol/L (98-107) 09/05/16 11:01 Carbon Dioxide 21 mmol/L (22-30) L 09/05/16 11:01 Anion Gap 23 mmol/L 09/05/16 11:01 BUN 16 mg/dL (7-17) 09/05/16 11:01 Creatinine 1.5 mg/dL (0.7-1.2) H 09/05/16 11:01 Estimated GFR 41 ml/min 09/05/16 11:01 BUN/Creatinine Ratio 10.66 % 09/05/16 11:01 Glucose 115 mg/dL (65-100) H 09/05/16 11:01 Lactic Acid 4.20 mmol/L (0.7-2.0) H* 09/05/16 19:59 Calcium 9.0 mg/dL (8.4-10.2) 09/05/16 11:01 Total Creatine Kinase 138 units/L (30-135) H 09/05/16 11:01 CK-MB (CK-2) 1.0 ng/mL (0.0-4.0) 09/05/16 11:01 CK-MB (CK-2) Rel Index 0.7 (0-4) 09/05/16 11:01 Troponin T < 0.010 ng/mL (0.00-0.029) 09/05/16 11:01 NT-Pro-B Natriuret Pep 5248 pg/mL (0-900) H 09/05/16 11:01 Blood Type A POSITIVE 09/05/16 14:06 Antibody Screen TNR 09/05/16 14:06 FELICIANO Antibody Screen Negative 09/05/16 14:06
[2016-09-06 09:03] LABS: Calcium 8.6 mg/dL (8.4-10.2); Potassium 3.4 mmol/L (3.6-5.0)
[2016-09-06] MEDS: ROCEPHIN/NS 2 GM/100 ML 2 GM/100 ML BAG IV SCH (10:36)
[2016-09-06] MEDS: ZITHROMAX 500 MG in NACL 0.9% 250ML 250 ML IV SCH (12:29)
[2016-09-06] MEDS: TESSALON PERLES PO PRN ×2 (13:42→19:55)
[2016-09-06] MEDS: NORCO 5/325 PO PRN ×2 (13:43→22:20)
[2016-09-06] MEDS ORDERED: POTASSIUM CHLORIDE PO ONE (14:13)
[2016-09-06] MEDS ORDERED: LOVENOX SUB-Q SCH ×2 (22:00)
[2016-09-07] MEDS: DUONEB *Not for PRN Use IH SCH ×4 (01:18→20:15)
[2016-09-07] MEDS: ROBITUSSIN AC PO PRN ×3 (03:25→18:05)
[2016-09-07 04:27] LABS: Hematocrit 33.8 % (30.3-42.9); Hemoglobin 10.7 gm/dl (10.1-14.3); Mean Corpuscular HGB Conc 32 % (30-34); Mean Corpuscular Hemoglobin 27 pg (28-32); Mean Corpuscular Volume 86 fl (79-97); Platelet Count 161 K/mm3 (140-440); Red Blood Count 3.95 M/mm3 (3.65-5.03); Red Cell Distribution Width 16.5 % (13.2-15.2); White Blood Count 14.6 K/mm3 (4.5-11.0)
[2016-09-07 04:47] LABS: BUN/Creatinine Ratio 10.9; Calcium 8.5 mg/dL (8.4-10.2); Chloride 103.9 mmol/L (98-107); Potassium 3.8 mmol/L (3.6-5.0)
[2016-09-07] MEDS: NACL 0.45% 1000 ML 1,000 ML IV SCH (07:09)
[2016-09-07] MEDS: NORCO 5/325 PO PRN ×2 (08:41→22:08)
--- NOTE | 2016-09-07 10:40 | Progress Note ---
Assessment and Plan Assessment and plan: Acute on chronic respiratory failure due to pneumonia and COPD exacerbation. Continue Oxygen Pneumonia left lower lobe. Continue Rocephin and Zithromax. Blood cultures - No growth .Consulted her women's ministry director, Dr. Garrido. She feels slightly better. COPD exacerbation. On Solu-Medrol, DuoNeb Coronary artery disease, stable Diabetes mellitus type II. Check fingerstick glucose before every meal and at bedtime. Chronic kidney disease stage 3 DVT prophylaxis with heparin Full code status History Interval history: Still has shortness of breath, cough, wheezing Hospitalist Physical - Physical exam Narrative exam: Gen Appearance: No acute distress, HEENT: normocephalic, atraumatic Neck: supple, no JVD Lungs: Rales right base, bilateral rhonchi. Heart: S1 and S2 regular, no murmurs or gallop Abdomen: Soft,non-tender, non-distended, normal bowel sounds Extremity: No edema, clubbing or cyanosis Neuro : Awake, alert,oriented x 3, moves all extremities - Constitutional Vitals: Temp Pulse Resp BP Pulse Ox 97.8 F 124 H 20 166/90 100 09/07/16 08:00 09/07/16 09:06 09/07/16 09:06 09/07/16 08:00 09/07/16 08:52 General appearance: Present: mild distress Results - Labs CBC & Chem 7: 09/07/16 03:33 09/07/16 03:33 Labs: Laboratory Last Values WBC 14.6 K/mm3 (4.5-11.0) H 09/07/16 03:33 RBC 3.95 M/mm3 (3.65-5.03) 09/07/16 03:33 Hgb 10.7 gm/dl (10.1-14.3) 09/07/16 03:33 Hct 33.8 % (30.3-42.9) 09/07/16 03:33 MCV 86 fl (79-97) 09/07/16 03:33 MCH 27 pg (28-32) L 09/07/16 03:33 MCHC 32 % (30-34) 09/07/16 03:33 RDW 16.5 % (13.2-15.2) H 09/07/16 03:33 Plt Count 161 K/mm3 (140-440) 09/07/16 03:33 Lymph % (Auto) 12.7 % (13.4-35.0) L 09/05/16 11:01 [place] % (Auto) 8.6 % (0.0-7.3) H 09/05/16 11:01 Eos % (Auto) 0.1 % (0.0-4.3) 09/05/16 11:01 Baso % (Auto) 0.4 % (0.0-1.8) 09/05/16 11:01 Lymph # 2.0 K/mm3 (1.2-5.4) 09/05/16 11:01 [place] # 1.4 K/mm3 (0.0-0.8) H 09/05/16 11:01 Eos # 0.0 K/mm3 (0.0-0.4) 09/05/16 11:01 Baso # 0.1 K/mm3 (0.0-0.1) 09/05/16 11:01 Seg Neutrophils % 78.2 % (40.0-70.0) H 09/05/16 11:01 Seg Neutrophils # 12.3 K/mm3 (1.8-7.7) H 09/05/16 11:01 Sodium 143 mmol/L (137-145) 09/07/16 03:33 Potassium 3.8 mmol/L (3.6-5.0) 09/07/16 03:33 Chloride 103.9 mmol/L (98-107) 09/07/16 03:33 Carbon Dioxide 20 mmol/L (22-30) L 09/07/16 03:33 Anion Gap 23 mmol/L 09/07/16 03:33 BUN 12 mg/dL (7-17) 09/07/16 03:33 Creatinine 1.1 mg/dL (0.7-1.2) 09/07/16 03:33 Estimated GFR 59 ml/min 09/07/16 03:33 BUN/Creatinine Ratio 10.90 % 09/07/16 03:33 Glucose 147 mg/dL (65-100) H 09/07/16 03:33 Lactic Acid 4.20 mmol/L (0.7-2.0) H* 09/05/16 19:59 Calcium 8.5 mg/dL (8.4-10.2) 09/07/16 03:33 Total Creatine Kinase 138 units/L (30-135) H 09/05/16 11:01 CK-MB (CK-2) 1.0 ng/mL (0.0-4.0) 09/05/16 11:01 CK-MB (CK-2) Rel Index 0.7 (0-4) 09/05/16 11:01 Troponin T < 0.010 ng/mL (0.00-0.029) 09/05/16 11:01 NT-Pro-B Natriuret Pep 5248 pg/mL (0-900) H 09/05/16 11:01 Blood Type A POSITIVE 09/05/16 14:06 Antibody Screen TNR 09/05/16 14:06 FELICIANO Antibody Screen Negative 09/05/16 14:06
[2016-09-07] MEDS ORDERED: NON-FORMULARY (Budesoni/Formotero 160-4.5(Nf) 2 PUFF) IH SCH (10:45)
[2016-09-07] MEDS: ZOCOR PO SCH (11:00)
[2016-09-07] MEDS ORDERED: PEPCID PO SCH (11:00)
[2016-09-07] MEDS: ROCEPHIN/NS 2 GM/100 ML 2 GM/100 ML BAG IV SCH (11:00)
[2016-09-07] MEDS ORDERED: ASPIRIN PO SCH (11:00)
[2016-09-07] MEDS: ZITHROMAX 500 MG in NACL 0.9% 250ML 250 ML IV SCH (11:01)
[2016-09-07] MEDS: LOPRESSOR PO SCH ×2 (13:14→22:07)
[2016-09-07] MEDS: NORVASC PO SCH (13:14)
[2016-09-07] MEDS: CATAPRES PO SCH ×2 (13:14→22:07)
[2016-09-07] MEDS: COLCRYS PO SCH (13:15)
[2016-09-07] MEDS: TESSALON PERLES PO PRN ×2 (13:15→22:08)
[2016-09-07] MEDS: BABY ASPIRIN PO SCH (13:15)
[2016-09-07] MEDS: ZYLOPRIM PO SCH (13:15)
[2016-09-07] MEDS: BROVANA NEBU IH SCH ×2 (14:32→20:15)
[2016-09-07] MEDS: PULMICORT IH SCH ×2 (14:32→20:15)
--- NOTE | 2016-09-07 16:54 | Consultation ---
History of Present Illness Consult date: 09/07/16 Requesting physician: GLENN PEREZ Reason for consult: pneumonia History of present illness: 76 yo admitted with increased SOB, chest pressure, wheezing, cough w/ brown sputum, subjective fevers/chills. She is feeling better since admit. Denies hemoptysis. She is on O2 QHS. Active Medications Acetaminophen (Tylenol) 650 mg PO Q4H PRN PRN Reason: Pain MILD(1-3)/Fever >100.5/HERRMANN Acetaminophen/Hydrocodone Bitart ([place] 5/325) 1 each PO Q6H PRN PRN Reason: Pain, Moderate (4-6) Last Admin: 09/07/16 08:41 Dose: 1 each Albuterol (Proventil) 2.5 mg IH Q4HRT PRN PRN Reason: Shortness Of Breath Last Admin: 09/06/16 12:20 Dose: 2.5 mg Albuterol/Ipratropium (Duoneb *Not For Prn Use*) 1 ampul IH Q6HRT [facility] Last Admin: 09/07/16 14:11 Dose: 1 ampul Allopurinol (Zyloprim) 100 mg PO QDAY [facility] Last Admin: 09/07/16 13:15 Dose: 100 mg Amlodipine Besylate (Norvasc) 10 mg PO DAILY [facility] Last Admin: 09/07/16 13:14 Dose: 10 mg Arformoterol Tartrate (Brovana Nebu) 15 mcg IH Q12HRT [facility] Last Admin: 09/07/16 14:32 Dose: Not Given Aspirin (Baby Aspirin) 81 mg PO QDAY [facility] Last Admin: 09/07/16 13:15 Dose: 81 mg Benzonatate (Tessalon Perles) 100 mg PO Q8HR PRN PRN Reason: Cough Last Admin: 09/07/16 13:15 Dose: 100 mg Bisacodyl (Dulcolax) 10 mg [place] QDAY PRN PRN Reason: Constipation unrelieved by MOM Budesonide (Pulmicort) 0.5 mg IH Q12HRT [facility] Last Admin: 09/07/16 14:32 Dose: Not Given Clonidine HCl (Catapres) 0.1 mg PO BID [facility] Last Admin: 09/07/16 13:14 Dose: 0.1 mg Colchicine (Colcrys) 0.6 mg PO DAILY [facility] Last Admin: 09/07/16 13:15 Dose: 0.6 mg Enoxaparin Sodium (Lovenox) 40 mg SUB-Q DAILY@2200 [facility] Famotidine (Pepcid) 20 mg PO DAILY [facility] Sodium Chloride (Nacl 0.45% 1000 Ml) 1,000 mls @ 75 mls/hr IV DIRECT [facility] Last Admin: 09/07/16 07:09 Dose: 75 mls/hr Azithromycin 500 mg/ Sodium (Chloride) 250 mls @ 250 mls/hr IV Q24HR [facility] Last Admin: 09/07/16 11:01 Dose: 250 mls/hr Ceftriaxone Sodium (Rocephin/Ns 2 Gm/100 Ml) 2 gm in 100 mls @ 200 mls/hr IV Q24HR [facility] PRN Reason: Protocol Last Admin: 09/07/16 11:00 Dose: 200 mls/hr Magnesium Hydroxide (Milk Of Magnesia) 30 ml PO Q4H PRN PRN Reason: Constipation Methylprednisolone Sodium Succinate (Solu-Medrol) 20 mg IV Q8HR [facility] Metoprolol Tartrate (Lopressor) 50 mg PO BID [facility] Last Admin: 09/07/16 13:14 Dose: 50 mg Montelukast Sodium (Singulair) 10 mg PO QPM [facility] Ondansetron HCl (Zofran) 4 mg IV Q8H PRN PRN Reason: N/V unrelieved by Reglan Pseudoephedrine/Acetam/Chlorphenir (Robitussin Ac) 10 ml PO QID PRN PRN Reason: Cough Last Admin: 09/07/16 08:41 Dose: 10 ml Simvastatin (Zocor) 20 mg PO QDAY [facility] Last Admin: 09/07/16 11:00 Dose: 20 mg Past History Past Medical History: CAD, COPD, diabetes, heart failure, hypertension, renal failure Past Surgical History: CABG, Other (R Knee/Foot surgery) Social history: single. denies: smoking, alcohol abuse, prescription drug abuse Family history: no significant family history, diabetes, hypertension Medications and Allergies Allergies Allergy/AdvReac Type Severity Reaction Status Date / Time latex Allergy Hives Verified 09/05/16 10:49 milk Allergy Rash Verified 09/05/16 10:49 Home Medications Medication Instructions Recorded Confirmed Last Taken Type Aspirin [Aspirin TAB] 81 mg PO QDAY 04/28/13 09/05/16 09/04/16 History Famotidine [Pepcid] 20 mg PO DAILY 04/28/13 09/05/16 09/04/16 History Ipratropium/Albuterol Sulfate 1 spray IH QID 04/28/13 09/05/16 09/04/16 History [Combivent Respimat] Metoprolol [Lopressor TAB] 50 mg PO BID 04/28/13 09/05/16 09/04/16 History Simvastatin 20 mg PO QDAY 04/28/13 09/05/16 09/04/16 History amLODIPine [Norvasc] 10 mg PO DAILY 04/28/13 09/05/16 09/04/16 History cloNIDine [Catapres] 0.1 mg PO BID 04/28/13 09/05/16 09/04/16 History Budesoni/Formotero 160-4.5(Nf) 2 puff IH BID 11/01/13 09/05/16 09/04/16 History [Symbicort 160-4.5 (Nf)] Colchicine [Colcrys] 0.6 mg PO DAILY 11/01/13 09/05/16 09/04/16 History Montelukast [Singulair] 10 mg PO QPM 08/02/15 09/05/16 09/04/16 History ProAir HFA Inhaler 2 puff IH Q4-6H 08/02/15 09/05/16 09/04/16 History ALBUTEROL Inhaler [ProAir HFA 2 puff IH QID PRN #1 inhalation 04/08/16 09/05/16 09/04/16 Rx Inhaler] Allopurinol [Zyloprim] 100 mg PO QDAY 09/05/16 09/05/16 09/04/16 History amLODIPine [Norvasc] 10 mg PO DAILY 09/05/16 09/05/16 09/04/16 History Active Meds: Active Medications Acetaminophen (Tylenol) 650 mg PO Q4H PRN PRN Reason: Pain MILD(1-3)/Fever >100.5/HERRMANN Acetaminophen/Hydrocodone Bitart ([place] 5/325) 1 each PO Q6H PRN PRN Reason: Pain, Moderate (4-6) Last Admin: 09/07/16 08:41 Dose: 1 each Albuterol (Proventil) 2.5 mg IH Q4HRT PRN PRN Reason: Shortness Of Breath Last Admin: 09/06/16 12:20 Dose: 2.5 mg Albuterol/Ipratropium (Duoneb *Not For Prn Use*) 1 ampul IH Q6HRT [facility] Last Admin: 09/07/16 14:11 Dose: 1 ampul Allopurinol (Zyloprim) 100 mg PO QDAY [facility] Last Admin: 09/07/16 13:15 Dose: 100 mg Amlodipine Besylate (Norvasc) 10 mg PO DAILY [facility] Last Admin: 09/07/16 13:14 Dose: 10 mg Arformoterol Tartrate (Brovana Nebu) 15 mcg IH Q12HRT [facility] Last Admin: 09/07/16 14:32 Dose: Not Given Aspirin (Baby Aspirin) 81 mg PO QDAY [facility] Last Admin: 09/07/16 13:15 Dose: 81 mg Benzonatate (Tessalon Perles) 100 mg PO Q8HR PRN PRN Reason: Cough Last Admin: 09/07/16 13:15 Dose: 100 mg Bisacodyl (Dulcolax) 10 mg [place] QDAY PRN PRN Reason: Constipation unrelieved by MOM Budesonide (Pulmicort) 0.5 mg IH Q12HRT [facility] Last Admin: 09/07/16 14:32 Dose: Not Given Clonidine HCl (Catapres) 0.1 mg PO BID [facility] Last Admin: 09/07/16 13:14 Dose: 0.1 mg Colchicine (Colcrys) 0.6 mg PO DAILY [facility] Last Admin: 09/07/16 13:15 Dose: 0.6 mg Enoxaparin Sodium (Lovenox) 40 mg SUB-Q DAILY@2200 [facility] Famotidine (Pepcid) 20 mg PO DAILY [facility] Sodium Chloride (Nacl 0.45% 1000 Ml) 1,000 mls @ 75 mls/hr IV DIRECT [facility] Last Admin: 09/07/16 07:09 Dose: 75 mls/hr Azithromycin 500 mg/ Sodium (Chloride) 250 mls @ 250 mls/hr IV Q24HR [facility] Last Admin: 09/07/16 11:01 Dose: 250 mls/hr Ceftriaxone Sodium (Rocephin/Ns 2 Gm/100 Ml) 2 gm in 100 mls @ 200 mls/hr IV Q24HR [facility] PRN Reason: Protocol Last Admin: 09/07/16 11:00 Dose: 200 mls/hr Magnesium Hydroxide (Milk Of Magnesia) 30 ml PO Q4H PRN PRN Reason: Constipation Methylprednisolone Sodium Succinate (Solu-Medrol) 20 mg IV Q8HR [facility] Metoprolol Tartrate (Lopressor) 50 mg PO BID [facility] Last Admin: 09/07/16 13:14 Dose: 50 mg Montelukast Sodium (Singulair) 10 mg PO QPM [facility] Ondansetron HCl (Zofran) 4 mg IV Q8H PRN PRN Reason: N/V unrelieved by Reglan Pseudoephedrine/Acetam/Chlorphenir (Robitussin Ac) 10 ml PO QID PRN PRN Reason: Cough Last Admin: 09/07/16 08:41 Dose: 10 ml Simvastatin (Zocor) 20 mg PO QDAY [facility] Last Admin: 09/07/16 11:00 Dose: 20 mg Review of Systems All systems: negative Physical Examination Vital signs: Vital Signs Temp Pulse Resp BP Pulse Ox 99.7 F H 71 20 129/62 98 09/05/16 10:46 09/05/16 10:46 09/05/16 10:46 09/05/16 10:46 09/05/16 10:46 Vital Signs - 24 hr 09/06/16 09/06/16 09/06/16 17:00 20:00 20:05 Temperature 98.5 F 98.6 F Pulse Rate [ 121 H Anterior Bilateral Throughout] Pulse Rate [ 109 H 100 H Apical] Pulse Rate [ 109 H 114 H Left Radial] Pulse Rate [ 109 H 114 H Right Radial] Respiratory 18 18 Rate Respiratory 15 Rate [Anterior Bilateral Throughout] Blood Pressure 150/85 176/84 [Left Arm] O2 Sat by Pulse 100 99 Oximetry 09/06/16 09/06/16 09/06/16 20:10 22:00 22:20 Temperature Pulse Rate [ 90 Anterior Bilateral Throughout] Pulse Rate [ Apical] Pulse Rate [ Left Radial] Pulse Rate [ Right Radial] Respiratory 28 H 28 H Rate Respiratory 15 Rate [Anterior Bilateral Throughout] Blood Pressure [Left Arm] O2 Sat by Pulse 99 Oximetry 09/07/16 09/07/16 09/07/16 01:18 01:24 04:00 Temperature 98.7 F Pulse Rate [ 119 H 111 H Anterior Bilateral Throughout] Pulse Rate [ 96 H Apical] Pulse Rate [ 111 H Left Radial] Pulse Rate [ 111 H Right Radial] Respiratory 20 Rate Respiratory 20 16 Rate [Anterior Bilateral Throughout] Blood Pressure 179/85 [Left Arm] O2 Sat by Pulse 98 Oximetry 09/07/16 09/07/16 09/07/16 08:00 08:52 09:06 Temperature 97.8 F Pulse Rate [ 120 H 124 H Anterior Bilateral Throughout] Pulse Rate [ 100 H Apical] Pulse Rate [ 100 H Left Radial] Pulse Rate [ 100 H Right Radial] Respiratory 24 Rate Respiratory 20 20 Rate [Anterior Bilateral Throughout] Blood Pressure 166/90 [Left Arm] O2 Sat by Pulse 96 100 Oximetry 09/07/16 13:15 Temperature 98.1 F Pulse Rate [ Anterior Bilateral Throughout] Pulse Rate [ 110 H Apical] Pulse Rate [ 110 H Left Radial] Pulse Rate [ 110 H Right Radial] Respiratory 24 Rate Respiratory Rate [Anterior Bilateral Throughout] Blood Pressure 168/96 [Left Arm] O2 Sat by Pulse 96 Oximetry General appearance: no acute distress, alert Eyes: non-icteric ENT: oropharynx moist Neck: supple Effort: normal Ascultation: Bilateral: clear Cardiovascular: other (tachy, RR; no mrg) Gastrointestinal: normoactive bowel sounds, soft, non-tender, non-distended Integumentary: normal Extremities: no cyanosis, no edema, pink and warm Musculoskeletal: no deformities normal mental status, non-focal exam, pupils equal and round, CN II-XII normal mood appropriate, affect normal Results - Laboratory Findings CBC and BMP: 09/07/16 03:33 09/07/16 03:33 Abnormal lab findings: Abnormal Labs 09/05/16 09/05/16 09/06/16 17:12 19:59 08:18 WBC 13.4 H MCH 27 L RDW 16.4 H Potassium Carbon Dioxide Creatinine Glucose Lactic Acid 3.30 H* 4.20 H* 09/06/16 09/07/16 09/07/16 08:18 03:33 03:33 WBC 14.6 H MCH 27 L RDW 16.5 H Potassium 3.4 L Carbon Dioxide 19 L 20 L Creatinine 1.4 H Glucose 180 H 147 H Lactic Acid - Diagnostic Findings Chest x-ray: report reviewed, image reviewed (LLL pneumonia) Assessment and Plan Imp: 1. CAP 2. COPD exac. 3. A/C respiratory failure, hypoxia 4. Lactic acidosis 5. SMITA, better 6. Volume depletion Rec: 1. Repeat lactic acid and CXR 2. Cont. Rocephin/Azithro and IVFs 3. Taper Solumedrol 4. Further plans pending clinical course Plan of care reviewed w/ patient, she understands/agrees Thanks kindly for the consult.
[2016-09-07] MEDS: SINGULAIR PO SCH (17:57)
[2016-09-07] MEDS: LOVENOX SUB-Q SCH (22:11)
[2016-09-08] MEDS: DUONEB *Not for PRN Use IH SCH ×4 (01:52→19:39)
[2016-09-08 07:03] LABS: BUN/Creatinine Ratio 14.54; Calcium 8.3 mg/dL (8.4-10.2); Chloride 98.8 mmol/L (98-107)
[2016-09-08 07:04] LABS: Hematocrit 34.2 % (30.3-42.9); Mean Corpuscular HGB Conc 32 % (30-34); Mean Corpuscular Hemoglobin 27 pg (28-32); Mean Corpuscular Volume 85 fl (79-97); Platelet Count 182 K/mm3 (140-440); Red Blood Count 4.03 M/mm3 (3.65-5.03); Red Cell Distribution Width 15.8 % (13.2-15.2); White Blood Count 10.1 K/mm3 (4.5-11.0)
[2016-09-08] MEDS: PULMICORT IH SCH ×2 (07:23→19:40)
[2016-09-08] MEDS: BROVANA NEBU IH SCH ×2 (07:23→19:40)
--- NOTE | 2016-09-08 08:25 | Progress Note ---
Assessment and Plan Assessment and plan: 76 YO Female with HTN, CA, CHF, CKD, DM, Asthma, COPD presents to ED for evaluation. Pt states that she has experienced shortness of breath for the past 3 days wit worsening symptoms over the past day. Pt also acknowledges productive cough of yellow sputum, subjective fever, and runny nose. Pt denies shaking chills, CP, Palpitations, NVD, syncope, recent ill contacts, skin rashes , BRBPR, trauma. Imaging was consistent with LLL pneumonia and emperic treatments for sepsis was began with antibiotics and steroids. Pulmonary was consulted. Acute on chronic respiratory failure due to pneumonia and COPD exacerbation. Continue Oxygen, adjust steroids, pulmonary input appreciated Pneumonia left lower lobe, possible gram-negative. Continue Rocephin and Zithromax. Blood cultures - No growth Sepsis secondary to pneumonia-continue treatment as noted above, lactic acidosis improved COPD exacerbation. On Solu-Medrol, DuoNeb Coronary artery disease, stable Diabetes mellitus type II. Check fingerstick glucose before every meal and at bedtime. Acute kidney injury on Chronic kidney disease stage 3-likely secondary to vasomotor nephropathy improved. Continue fluids and discontinue once patient tolerating adequate by mouth Metabolic acidosis-resolved likely secondary to combination of acute kidney injury and sepsis syndrome. Volume depletion-secondary to sepsis, resolved. DVT prophylaxis with heparin Full code status History Interval history: Patient seen and examined today, still with audible wheezing, short of breath with exertion. not yet at baseline. No other adverse event from nursing staff. Hospitalist Physical - Physical exam Narrative exam: VITAL SIGNS: Reviewed. GENERAL: The patient appeared well nourished and normally developed. Vital signs as documented. HEAD: No signs of head trauma. EYES: Pupils are equal. Extraocular motions intact. EARS: Hearing grossly intact. MOUTH: Oropharynx is normal. NECK: No adenopathy, no JVD. CHEST: Chest with wheezing expiratory Greater inspiratory bilateral lobes. nO rales, or rhonchi. CARDIAC: Regular rate and rhythm. S1 and S2, without murmurs, gallops, or rubs. VASCULAR: No Edema. Peripheral pulses normal and equal in all extremities. ABDOMEN: Soft, without detectable tenderness. No sign of distention. No rebound or guarding, and no masses palpated. Bowel Sounds normal. MUSCULOSKELETAL: Good range of motion of all major joints. Extremities without clubbing, cyanosis or edema. NEUROLOGIC EXAM: Alert and oriented x 3. No focal sensory or strength deficits. Speech normal. Follows commands. PSYCHIATRIC: Mood normal. SKIN: No rash or lesions. - Constitutional Vitals: Temp Pulse Resp BP Pulse Ox 97.8 F 96 H 22 140/90 96 09/08/16 08:00 09/08/16 08:00 09/08/16 08:00 09/08/16 08:00 09/08/16 08:00 General appearance: Present: mild distress Results - Labs CBC & Chem 7: 09/08/16 06:23 09/08/16 06:23 Labs: Laboratory Last Values WBC 10.1 K/mm3 (4.5-11.0) 09/08/16 06:23 RBC 4.03 M/mm3 (3.65-5.03) 09/08/16 06:23 Hgb 11.0 gm/dl (10.1-14.3) 09/08/16 06:23 Hct 34.2 % (30.3-42.9) 09/08/16 06:23 MCV 85 fl (79-97) 09/08/16 06:23 MCH 27 pg (28-32) L 09/08/16 06:23 MCHC 32 % (30-34) 09/08/16 06:23 RDW 15.8 % (13.2-15.2) H 09/08/16 06:23 Plt Count 182 K/mm3 (140-440) 09/08/16 06:23 Lymph % (Auto) 12.7 % (13.4-35.0) L 09/05/16 11:01 [place] % (Auto) 8.6 % (0.0-7.3) H 09/05/16 11:01 Eos % (Auto) 0.1 % (0.0-4.3) 09/05/16 11:01 Baso % (Auto) 0.4 % (0.0-1.8) 09/05/16 11:01 Lymph # 2.0 K/mm3 (1.2-5.4) 09/05/16 11:01 [place] # 1.4 K/mm3 (0.0-0.8) H 09/05/16 11:01 Eos # 0.0 K/mm3 (0.0-0.4) 09/05/16 11:01 Baso # 0.1 K/mm3 (0.0-0.1) 09/05/16 11:01 Seg Neutrophils % 78.2 % (40.0-70.0) H 09/05/16 11:01 Seg Neutrophils # 12.3 K/mm3 (1.8-7.7) H 09/05/16 11:01 Sodium 139 mmol/L (137-145) 09/08/16 06:23 Potassium 4.0 mmol/L (3.6-5.0) 09/08/16 06:23 Chloride 98.8 mmol/L (98-107) 09/08/16 06:23 Carbon Dioxide 26 mmol/L (22-30) 09/08/16 06:23 Anion Gap 18 mmol/L 09/08/16 06:23 BUN 16 mg/dL (7-17) 09/08/16 06:23 Creatinine 1.1 mg/dL (0.7-1.2) 09/08/16 06:23 Estimated GFR 59 ml/min 09/08/16 06:23 BUN/Creatinine Ratio 14.54 % 09/08/16 06:23 Glucose 147 mg/dL (65-100) H 09/08/16 06:23 Lactic Acid 1.20 mmol/L (0.7-2.0) 09/08/16 06:23 Calcium 8.3 mg/dL (8.4-10.2) L 09/08/16 06:23 Total Creatine Kinase 138 units/L (30-135) H 09/05/16 11:01 CK-MB (CK-2) 1.0 ng/mL (0.0-4.0) 09/05/16 11:01 CK-MB (CK-2) Rel Index 0.7 (0-4) 09/05/16 11:01 Troponin T < 0.010 ng/mL (0.00-0.029) 09/05/16 11:01 NT-Pro-B Natriuret Pep 5248 pg/mL (0-900) H 09/05/16 11:01 Blood Type A POSITIVE 09/05/16 14:06 Antibody Screen TNR 09/05/16 14:06 FELICIANO Antibody Screen Negative 09/05/16 14:06
--- NOTE | 2016-09-08 08:58 | XRay Report ---
FINAL REPORT PROCEDURE: XR CHEST 1V AP TECHNIQUE: Chest radiograph anteroposterior view. CPT 45919 HISTORY: Pneumonia COMPARISON: Chest one view 05/28/2016 FINDINGS: Prior CABG is noted. The trachea is midline. The heart is normal in size. Airspace disease at the left lung base is present. There is no evident pneumothorax or pleural fluid. No acute osseous abnormality is seen. IMPRESSION: Left basilar subsegmental atelectasis and or infiltrate. Obtain follow-up imaging as clinically relevant.
[2016-09-08] MEDS: NACL 0.45% 1000 ML 1,000 ML IV SCH (09:05)
[2016-09-08] MEDS: BABY ASPIRIN PO SCH (09:06)
[2016-09-08] MEDS: NORVASC PO SCH (09:06)
[2016-09-08] MEDS: ZYLOPRIM PO SCH (09:06)
[2016-09-08] MEDS: CATAPRES PO SCH ×2 (09:06→21:10)
[2016-09-08] MEDS: NORCO 5/325 PO PRN (09:06)
[2016-09-08] MEDS: LOPRESSOR PO SCH ×2 (09:06→21:09)
[2016-09-08] MEDS: ZOCOR PO SCH (09:06)
[2016-09-08] MEDS: TESSALON PERLES PO PRN ×2 (09:06→21:16)
[2016-09-08] MEDS: COLCRYS PO SCH (09:06)
[2016-09-08] MEDS: ZITHROMAX 500 MG in NACL 0.9% 250ML 250 ML IV SCH (10:28)
--- NOTE | 2016-09-08 10:51 | Discharge Summary ---
Providers - Providers Date of Admission: 09/05/16 13:53 Date of discharge: 09/09/16 Attending physician: AMBER HENRY MD 09/06/16 13:57 Consult to Physician [CONS] Routine Consulting Provider: KOJO HILL Reason For Exam: Pneumonia, COPD Place consult to:: DR. WOODS Notified:: OFFICE Phone number called:: [phone] Was contact made?: Yes If yes, spoke with:: SANDY Time called:: 14:16 Comment:: CALEB NOTIFIED Primary care physician: AMY NGUYEN Hospitalization Reason for admission: sepsis Condition: Stable Hospital course: 76 YO Female with HTN, [place], CHF, CKD, DM, Asthma, COPD presents to ED for evaluation. Pt states that she has experienced shortness of breath for the past 3 days wit worsening symptoms over the past day. Pt also acknowledges productive cough of yellow sputum, subjective fever, and runny nose. Pt denies shaking chills, CP, Palpitations, NVD, syncope, recent ill contacts, skin rashes , BRBPR, trauma. Imaging was consistent with LLL pneumonia and emperic treatments for sepsis was began with antibiotics and steroids. Pulmonary was consulted. Patient was on steroids intravenously and subsequently transitioned to by mouth. She was also treated with antibiotics for pneumonia cultures were unremarkable. Diabetes was adjusted and managed appropriately. Patient's renal function did improve back to baseline. 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 Discharge diagnosis Acute on chronic respiratory failure due to pneumonia and COPD exacerbation. Pneumonia left lower lobe Sepsis secondary to pneumonia COPD exacerbation Coronary artery disease, Diabetes mellitus type II. Acute kidney injury on Chronic kidney disease stage 3-likely secondary to vasomotor nephropathy Metabolic acidosis Disposition: [id number]/TX-06 HOME UNDER HOME [facility] Time spent for discharge: 35 MINS Core Measure Documentation - Palliative Care Palliative Care/ Comfort Measures: Not Applicable - Core Measures Any of the following diagnoses?: none - VTE Discharge Requirements Deep Vein Thrombosis/Pulmonary Embolism Present on Admission: No Exam - Physical Exam Narrative exam: VITAL SIGNS: Reviewed. GENERAL: The patient appeared well nourished and normally developed. Vital signs as documented. HEAD: No signs of head trauma. EYES: Pupils are equal. Extraocular motions intact. EARS: Hearing grossly intact. MOUTH: Oropharynx is normal. NECK: No adenopathy, no JVD. CHEST: Chest with wheezing expiratory Greater inspiratory bilateral lobes. nO rales, or rhonchi. CARDIAC: Regular rate and rhythm. S1 and S2, without murmurs, gallops, or rubs. VASCULAR: No Edema. Peripheral pulses normal and equal in all extremities. ABDOMEN: Soft, without detectable tenderness. No sign of distention. No rebound or guarding, and no masses palpated. Bowel Sounds normal. MUSCULOSKELETAL: Good range of motion of all major joints. Extremities without clubbing, cyanosis or edema. NEUROLOGIC EXAM: Alert and oriented x 3. No focal sensory or strength deficits. Speech normal. Follows commands. PSYCHIATRIC: Mood normal. SKIN: No rash or lesions. - Constitutional Vitals: Temp Pulse Resp BP Pulse Ox 97.8 F 96 H 22 140/90 96 09/08/16 08:00 09/08/16 08:00 09/08/16 08:00 09/08/16 08:00 09/08/16 08:00 Plan Activity: advance as tolerated, fall precautions Diet: low cholesterol Special Instructions: record daily BP diary Follow up with: PRIMARY CAREMD [Referring] - 3-5 Days KOJO HILL MD [Staff Physician] - 7 Days Prescriptions: Azithromycin [Zithromax TAB] 500 mg PO QDAY #10 tablet Benzonatate [Tessalon Perles] 100 mg PO Q8HR PRN #20 capsule PRN Reason: Cough HYDROcodone/APAP 5-325 [[place] 5-325 mg TAB] 1 each PO Q6H PRN 3 Days PRN Reason: Pain, Moderate (4-6) predniSONE [Deltasone] 10 mg PO .TAPER #48 tab
[2016-09-08] MEDS: ROBITUSSIN AC PO PRN (11:09)
[2016-09-08] MEDS: PEPCID PO SCH (11:09)
[2016-09-08] MEDS: ROCEPHIN/NS 2 GM/100 ML 2 GM/100 ML BAG IV SCH (11:09)
--- NOTE | 2016-09-08 14:33 | Progress Note ---
Assessment and Plan Imp: 1. CAP 2. COPD exac. 3. A/C respiratory failure, hypoxia 4. Lactic acidosis, resolved 5. SMITA, better 6. Volume depletion Rec: 1. Cont. Rocephin/Azithro while in hospital; complete ~ 10 days total of ABX oral + IV 2. Tapered Solumedrol -> prednisone taper at d/c 3. Has O2 at home 4. F/u CXR in office 1-2 weeks, w/ Dr. Garrido 5. Can go home pulm-vergara Plan of care reviewed w/ patient, she understands/agrees Subjective Date of service: 09/08/16 Principal diagnosis: pneumonia Interval history: No events. Awake, alert. SOB, cough, wheezing much better. C/o hoarseness. Active Medications Acetaminophen (Tylenol) 650 mg PO Q4H PRN PRN Reason: Pain MILD(1-3)/Fever >100.5/HERRMANN Acetaminophen/Hydrocodone Bitart ([place] 5/325) 1 each PO Q6H PRN PRN Reason: Pain, Moderate (4-6) Last Admin: 09/08/16 09:06 Dose: 1 each Albuterol (Proventil) 2.5 mg IH Q4HRT PRN PRN Reason: Shortness Of Breath Last Admin: 09/06/16 12:20 Dose: 2.5 mg Albuterol/Ipratropium (Duoneb *Not For Prn Use*) 1 ampul IH Q6HRT [facility] Last Admin: 09/08/16 13:56 Dose: 1 ampul Allopurinol (Zyloprim) 100 mg PO QDAY [facility] Last Admin: 09/08/16 09:06 Dose: 100 mg Amlodipine Besylate (Norvasc) 10 mg PO DAILY [facility] Last Admin: 09/08/16 09:06 Dose: 10 mg Arformoterol Tartrate (Brovana Nebu) 15 mcg IH Q12HRT [facility] Last Admin: 09/08/16 07:23 Dose: 15 mcg Aspirin (Baby Aspirin) 81 mg PO QDAY [facility] Last Admin: 09/08/16 09:06 Dose: 81 mg Azithromycin (Zithromax) 500 mg PO QDAY [facility] Benzonatate (Tessalon Perles) 100 mg PO Q8HR PRN PRN Reason: Cough Last Admin: 09/08/16 09:06 Dose: 100 mg Bisacodyl (Dulcolax) 10 mg MS QDAY PRN PRN Reason: Constipation unrelieved by MOM Budesonide (Pulmicort) 0.5 mg IH Q12HRT [facility] Last Admin: 09/08/16 07:23 Dose: 0.5 mg Clonidine HCl (Catapres) 0.1 mg PO BID [facility] Last Admin: 09/08/16 09:06 Dose: 0.1 mg Colchicine (Colcrys) 0.6 mg PO DAILY [facility] Last Admin: 09/08/16 09:06 Dose: 0.6 mg Enoxaparin Sodium (Lovenox) 40 mg SUB-Q DAILY@2200 [facility] Last Admin: 09/07/16 22:11 Dose: 40 mg Famotidine (Pepcid) 20 mg PO DAILY [facility] Last Admin: 09/08/16 11:09 Dose: 20 mg Sodium Chloride (Nacl 0.45% 1000 Ml) 1,000 mls @ 75 mls/hr IV DIRECT [facility] Last Admin: 09/08/16 09:05 Dose: 75 mls/hr Ceftriaxone Sodium (Rocephin/Ns 2 Gm/100 Ml) 2 gm in 100 mls @ 200 mls/hr IV Q24HR [facility] PRN Reason: Protocol Last Admin: 09/08/16 11:09 Dose: 200 mls/hr Magnesium Hydroxide (Milk Of Magnesia) 30 ml PO Q4H PRN PRN Reason: Constipation Methylprednisolone Sodium Succinate (Solu-Medrol) 20 mg IV Q8HR [facility] Last Admin: 09/08/16 13:23 Dose: 20 mg Metoprolol Tartrate (Lopressor) 50 mg PO BID [facility] Last Admin: 09/08/16 09:06 Dose: 50 mg Montelukast Sodium (Singulair) 10 mg PO QPM [facility] Last Admin: 09/07/16 17:57 Dose: 10 mg Ondansetron HCl (Zofran) 4 mg IV Q8H PRN PRN Reason: N/V unrelieved by Reglan Pseudoephedrine/Acetam/Chlorphenir (Robitussin Ac) 10 ml PO QID PRN PRN Reason: Cough Last Admin: 09/08/16 11:09 Dose: 10 ml Simvastatin (Zocor) 20 mg PO QDAY [facility] Last Admin: 09/08/16 09:06 Dose: 20 mg Objective Vital Signs - 12hr 09/08/16 09/08/16 09/08/16 07:23 07:33 08:00 Temperature 97.8 F Pulse Rate [ 89 80 Anterior Bilateral Throughout] Pulse Rate [ 96 H Left Radial] Respiratory 22 Rate Respiratory 20 20 Rate [Anterior Bilateral Throughout] Blood Pressure 140/90 [Left Arm] O2 Sat by Pulse 100 96 Oximetry 09/08/16 09/08/16 09/08/16 12:15 13:56 14:06 Temperature 97.8 F Pulse Rate [ 80 72 Anterior Bilateral Throughout] Pulse Rate [ 82 Left Radial] Respiratory 20 Rate Respiratory 20 20 Rate [Anterior Bilateral Throughout] Blood Pressure 118/72 [Left Arm] O2 Sat by Pulse 97 Oximetry Constitutional: no acute distress, alert Eyes: non-icteric ENT: oropharynx moist Neck: supple Effort: normal Ascultation: Bilateral: clear Cardiovascular: regular rate and rhythm (no mrg) Gastrointestinal: normoactive bowel sounds, soft, non-tender, non-distended Integumentary: normal Extremities: no cyanosis, no edema, pink and warm Neurologic: normal mental status, non-focal exam, pupils equal and round, CN II- XII normal Psychiatric: mood appropriate, affect normal CBC and BMP: 09/08/16 06:23 09/08/16 06:23 Abnormal lab findings: Abnormal Labs 09/05/16 09/05/16 09/06/16 17:12 19:59 08:18 WBC 13.4 H MCH 27 L RDW 16.4 H Potassium Carbon Dioxide Creatinine Glucose Lactic Acid 3.30 H* 4.20 H* Calcium 09/06/16 09/07/16 09/07/16 08:18 03:33 03:33 WBC 14.6 H MCH 27 L RDW 16.5 H Potassium 3.4 L Carbon Dioxide 19 L 20 L Creatinine 1.4 H Glucose 180 H 147 H Lactic Acid Calcium 09/08/16 09/08/16 06:23 06:23 WBC MCH 27 L RDW 15.8 H Potassium Carbon Dioxide Creatinine Glucose 147 H Lactic Acid Calcium 8.3 L Chest x-ray: report reviewed, image reviewed (LLL infiltrate better)
[2016-09-08] MEDS: SINGULAIR PO SCH (17:15)
[2016-09-08] MEDS: LOVENOX SUB-Q SCH (21:10)
[2016-09-09] MEDS: ROBITUSSIN AC PO PRN (00:56)
[2016-09-09] MEDS: NORCO 5/325 PO PRN ×2 (00:56→08:37)
[2016-09-09] MEDS: DUONEB *Not for PRN Use IH SCH ×3 (02:08→14:19)
[2016-09-09] MEDS: PULMICORT IH SCH (08:08)
[2016-09-09] MEDS: BROVANA NEBU IH SCH (08:08)
[2016-09-09] MEDS: TESSALON PERLES PO PRN (08:37)
[2016-09-09] MEDS ORDERED: ZITHROMAX PO SCH (10:00)
[2016-09-09] MEDS: ROCEPHIN/NS 2 GM/100 ML 2 GM/100 ML BAG IV SCH (11:41)
[2016-09-09] MEDS: CATAPRES PO SCH (11:42)
[2016-09-09] MEDS: ZOCOR PO SCH (11:42)
[2016-09-09] MEDS: BABY ASPIRIN PO SCH (11:42)
[2016-09-09] MEDS: LOPRESSOR PO SCH (11:42)
[2016-09-09] MEDS: COLCRYS PO SCH (11:42)
[2016-09-09] MEDS: NORVASC PO SCH (11:44)
[2016-09-09] MEDS: PEPCID PO SCH (11:44)
[2016-09-09 11:45] VITALS: BP 158/80
[2016-09-09] MEDS: ZYLOPRIM PO SCH (11:45)
== END 2016-09-09 15:00 | disposition home health service (06) | DRG 871 ==
LOC: ED 10:36 → 3A 13:53
PROVIDERS: ADMIT Internal Medicine; ATTEND Internal Medicine
DX: A41.9 Sepsis, unspecified organism (principal); J96.21 Acute and chronic respiratory failure with hypoxia; N17.0 Acute kidney failure with tubular necrosis; J18.1 Lobar pneumonia, unspecified organism; J44.1 Chronic obstructive pulmonary disease with (acute) exacerbation; J44.0 Chronic obstructive pulmonary disease with (acute) lower respiratory infection; I13.0 Hypertensive heart and chronic kidney disease with heart failure and stage 1 through stage 4 chronic kidney disease, or unspecified chronic kidney disease; I25.10 Atherosclerotic heart disease of native coronary artery without angina pectoris; E86.9 Volume depletion, unspecified; E11.9 Type 2 diabetes mellitus without complications; I50.9 Heart failure, unspecified; N18.9 Chronic kidney disease, unspecified; E11.22 Type 2 diabetes mellitus with diabetic chronic kidney disease; J45.909 Unspecified asthma, uncomplicated; M19.90 Unspecified osteoarthritis, unspecified site; Z79.82 Long term (current) use of aspirin; Z87.891 Personal history of nicotine dependence; Z79.899 Other long term (current) drug therapy; Z95.1 Presence of aortocoronary bypass graft; I25.2 Old myocardial infarction; Z91.040 Latex allergy status; Z91.011 Allergy to milk products
CPT/HCPCS: 36415; 71010; 80048; 82140; 82550; 82553; 83880; 84484; 85025; 85027; 86850; 86900; 86901; 87040; 93005; 93010; 94640; 94644; 94760; 96374; 99285; J0456; J0696; J1650; J2543; J2920; J7030; J7050

== ENCOUNTER 2016-12-31 08:12 | Inpatient (IN) | payer MEDICARE ==
--- NOTE | 2016-12-31 08:47 | Emergency Department Report ---
HPI - General Time Seen by Provider: 12/31/16 08:21 - HPI HPI: This is a 76-year-old -[place] female who presents to the emergency department by EMS from home with complaint of difficulty breathing since waking up this morning. She tried to use her home nebulizer treatment without much relief. She received a total of 7.5 mg of albuterol, 125 mg of Solu-Medrol and 1-2 g of magnesium in route. She has a past medical history of asthma, CHF, COPD, diabetes, coronary artery disease with [place], hypertension. She has been intubated 3 times in the past for similar asthmatic or respiratory conditions. No recent travel or sick contacts at home. Her primary care physician is Dr. 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 Iniguez and her last putter away is through [facility] ED Past Medical Hx - Past Medical History Previous Medical History?: Yes Hx Hypertension: Yes Hx Heart Attack/AMI: Yes Hx Congestive Heart Failure: Yes Hx Diabetes: Yes Hx Renal Disease: Yes Hx Arthritis: Yes Hx Kidney Stones: Yes Hx Asthma: Yes Hx COPD: Yes Hx HIV: No Additional medical history: facial tic - Surgical History Hx Open Heart Surgery: Yes Additional Surgical History: right knee surgery, right foot surgery - Social History Smoking Status: Never Smoker Substance Use Type: None - Medications Home Medications: Home Medications Medication Instructions Recorded Confirmed Last Taken Type Aspirin [Aspirin TAB] 81 mg PO QDAY 04/28/13 12/31/16 12/30/16 History Ipratropium/Albuterol Sulfate 1 spray IH QID 04/28/13 12/31/16 12/30/16 History [Combivent Respimat] Metoprolol [Lopressor TAB] 50 mg PO BID 04/28/13 12/31/16 12/30/16 History Simvastatin 20 mg PO QDAY 04/28/13 12/31/16 12/30/16 History cloNIDine [Catapres] 0.1 mg PO BID 04/28/13 12/31/16 12/30/16 History Budesoni/Formotero 160-4.5(Nf) 2 puff IH BID 11/01/13 12/31/16 12/30/16 History [Symbicort 160-4.5 (Nf)] Colchicine [Colcrys] 0.6 mg PO DAILY 11/01/13 12/31/1612/30/17 History Montelukast [Singulair] 10 mg PO QPM 08/02/15 12/31/16 12/30/16 History ALBUTEROL Inhaler [ProAir HFA 2 puff IH QID PRN #1 inhalation 04/08/16 12/31/16 12/30/16 Rx Inhaler] Allopurinol [Zyloprim] 100 mg PO QDAY 09/05/16 12/31/16 12/30/16 History amLODIPine [Norvasc] 10 mg PO DAILY 09/05/16 12/31/16 12/30/16 History Fluticasone [Flonase] 1 spray NS QDAY 12/31/16 12/31/16 12/30/16 History Furosemide [Lasix] 20 mg PO BID 12/31/16 12/31/16 12/30/16 History HYDROcodone/APAP 7.5-325 [[place] 1 each PO Q6HR PRN 12/31/16 12/31/16 12/30/16 History 7.5/325] ED Review of Systems ROS: Stated complaint: CRUZITO Other details as noted in HPI Comment: All other systems reviewed and negative Constitutional: denies: chills, fever Eyes: denies: eye pain, eye discharge, vision change ENT: denies: ear pain, throat pain Respiratory: cough, shortness of breath, wheezing Cardiovascular: denies: chest pain, edema Gastrointestinal: denies: abdominal pain, nausea, diarrhea Genitourinary: denies: urgency, dysuria, discharge Musculoskeletal: denies: back pain, joint swelling, arthralgia Skin: denies: rash, lesions Neurological: denies: headache, weakness, paresthesias Physical Exam - Physical Exam Vital Signs: Vital Signs 12/31/16 08:12 Temperature 98.6 F Pulse Rate 79 Respiratory 24 Rate Blood Pressure 140/76 Blood Pressure 140/76 [Right] O2 Sat by Pulse 100 Oximetry Physical Exam: GENERAL: The patient is well-developed well-nourished. HENT: Normocephalic. Atraumatic. Patient has moist mucous membranes. EYES: Extraocular motions are intact. Pupils equal reactive to light bilaterally. NECK: Supple. Trachea is midline. CHEST/LUNGS: There is moderate to severe wheezing throughout the chest. There is tachypnea and supraclavicular accessory muscle use. Patient has conversational dyspnea. There is respiratory distress noted. HEART/CARDIOVASCULAR: Regular. There is no tachycardia. There is no gallop rub or murmur. ABDOMEN: Abdomen is soft, nontender. Patient has normal bowel sounds. There is no abdominal distention. SKIN: Skin is warm and dry. NEURO: The patient is awake, alert, and oriented. The patient is cooperative. The patient has no focal neurologic deficits. The patient has normal speech. MUSCULOSKELETAL: There is no tenderness or deformity. There is no limitation range of motion. There is no evidence of acute injury. ED Course Vital Signs 12/31/16 08:12 Temperature 98.6 F Pulse Rate 79 Respiratory 24 Rate Blood Pressure 140/76 Blood Pressure 140/76 [Right] O2 Sat by Pulse 100 Oximetry ED Medical Decision Making - Lab Data Result diagrams: 12/31/16 08:45 12/31/16 08:45 - EKG Data -: EKG Interpreted by Me EKG shows normal: sinus rhythm (PVCs), axis (left axis deviation), intervals ( prolonged QT and QTC intervals), QRS complexes, ST-T waves (nonspecific ST-T waves) Rate: normal - EKG Data When compared to previous EKG there are: no significant change Interpretation: unchanged when compared t (08/06/16) - Radiology Data Radiology results: report reviewed, image reviewed interpreted by me: Chest x-ray does not show any acute process. There are no pleural effusions, obvious pneumonia and there is no pneumothorax. Perfusion lung scan: SOB. Perfusion imaging in multiple projections demonstrates multiple segmental and subsegmental areas of perfusion deficiency bilaterally. A prior scan 2011 is described as being homogeneous and unremarkable. A current chest x-ray shows no obvious pulmonary lesions. Impressions: High probability of pulmonary embolus. Transcribed By: LUCIANO Dictated By: MINDY ZELAYA MD Electronically Authenticated By: MINDY ZELAYA MD Signed Date/Time: 12/31/16 1121 - Medical Decision Making 76-year-old female presents with shortness of breath that started this morning. She has some severe bronchospasm. She was given steroids, magnesium and breathing treatments as she came in to be seen. She required BiPAP because of increased work of breathing. Labs show a very elevated d-dimer and some renal insufficiency so a VQ scan was done and it came back showing high probability for a pulmonary embolus. Patient was started on heparin. She will be admitted to the hospitalist service and has been accepted for admission by Dr Milan. - Differential Diagnosis PE, Asthma, Pneumonia, CHF, MO Critical Care Time: No Critical care attestation.: If time is entered above; I have spent that time in minutes in the direct care of this critically ill patient, excluding procedure time. ED Disposition Clinical Impression: Dyspnea Qualifiers: Dyspnea type: shortness of breath Qualified Code(s): R06.02 - Shortness of breath Asthma exacerbation Qualifiers: Asthma severity: unspecified severity Asthma persistence: unspecified Qualified Code(s): J45.901 - Unspecified asthma with (acute) exacerbation Pulmonary embolism Qualifiers: Pulmonary embolism type: other Chronicity: acute Acute cor pulmonale presence: without acute cor pulmonale Qualified Code(s): I26.99 - Other pulmonary embolism without acute cor pulmonale Disposition: DC-09 OP ADMIT IP TO THIS HOSP Is pt being admited?: Yes Condition: Stable Time of Disposition: 11:49
--- NOTE | 2016-12-31 08:58 | XRay Report ---
Single view chest: Compared to 09/08/16. History: Dyspnea. Findings: Cardiomegaly. Trachea is midline. No consolidation, pneumothorax or pleural effusion. No significant interval change. Impression: No significant interval change.
[2016-12-31 09:00] LABS: Basophils % (Auto) 0.5 % (0.0-1.8); Hematocrit 36.5 % (30.3-42.9); Hemoglobin 11.6 gm/dl (10.1-14.3); Mean Corpuscular HGB Conc 32 % (30-34); Mean Corpuscular Hemoglobin 27 pg (28-32); Mean Corpuscular Volume 85 fl (79-97); Platelet Count 163 K/mm3 (140-440); Red Blood Count 4.27 M/mm3 (3.65-5.03); Red Cell Distribution Width 15.9 % (13.2-15.2); White Blood Count 7.1 K/mm3 (4.5-11.0)
[2016-12-31 09:14] LABS: Calcium 8.5 mg/dL (8.4-10.2); Chloride 101.1 mmol/L (98-107); Magnesium 2.9 mg/dL (1.7-2.3); Potassium 4.8 mmol/L (3.6-5.0)
[2016-12-31] MEDS ORDERED: PROVENTIL IH ONE (11:09)
--- NOTE | 2016-12-31 11:37 | Nuclear Medicine Report ---
Perfusion lung scan: SOB. Perfusion imaging in multiple projections demonstrates multiple segmental and subsegmental areas of perfusion deficiency bilaterally. A prior scan 2011 is described as being homogeneous and unremarkable. A current chest x-ray shows no obvious pulmonary lesions. Impressions: High probability of pulmonary embolus.
[2016-12-31] MEDS ORDERED: HEPARIN 10,000 UNITS/10 ML IV ONE (11:48)
[2016-12-31 12:11] LABS: Bilirubin,Urine NEG (Negative); Blood,Urine NEG (Negative); Ketones,Urine NEG (Negative); Leukocyte Esterase,Urine SM (Negative); Nitrite,Urine NEG (Negative); Protein,Urine <15 mg/dL mg/dL (Negative); Urobilinogen,Urine < 2.0 mg/dL (<2.0); WBC,Urine < 1.0 /HPF (0.0-6.0)
[2016-12-31] MEDS: HEPARIN/ 0.45% NACL-25,000 UNIT/500 ML 25,000 UNIT/500 ML BAG IV SCH (12:29)
[2016-12-31 12:37] LABS: Partial Thromboplastin Time 30.2 Sec. (24.2-36.6)
--- NOTE | 2016-12-31 15:34 | Progress Note ---
Subjective Date of service: 12/31/16 Objective - Constitutional Vitals: Vital Signs - 12hr 12/31/16 12/31/16 13:00 14:00 Pulse Rate 78 75 Respiratory 19 13 Rate Blood Pressure 133/67 143/79 O2 Sat by Pulse 100 100 Oximetry - Labs CBC & Chem 7: 12/31/16 08:45 12/31/16 08:45
[2016-12-31] MEDS ORDERED: DUONEB *Not for PRN Use IH ONE (16:47)
[2016-12-31] MEDS: DUONEB *Not for PRN Use IH SCH ×2 (17:00→21:38)
--- NOTE | 2016-12-31 23:59 | History and Physical Report ---
History of Present Illness Date of examination: 12/31/16 Date of admission: 12/31/16 12:06 Chief complaint: CC : Increasing SOB for couple of days History of present illness: HPI This is a 76-year-old -[place] female who presents to the emergency department by EMS from home with complaint of difficulty breathing since waking up this morning. She tried to use her home nebulizer treatment without much relief. She received a total of 7.5 mg of albuterol, 125 mg of Solu-Medrol and 1-2 g of magnesium in route. She has a past medical history of asthma, CHF, COPD, diabetes, coronary artery disease with [place], hypertension. She has been intubated 3 times in the past for similar asthmatic or respiratory conditions. No recent travel or sick contacts at home. - Past Medical History Previous Medical History?: Yes Hx Hypertension: Yes Hx Heart Attack/AMI: Yes Hx Congestive Heart Failure: Yes Hx Diabetes: Yes Hx Renal Disease: Yes Hx Arthritis: Yes Hx Kidney Stones: Yes Hx Asthma: Yes Hx COPD: Yes Additional medical history: facial tic - Surgical History Hx Open Heart Surgery: Yes Additional Surgical History: right knee surgery, right foot surgery - Social History Smoking Status: Never Smoker Substance Use Type: None - Medications Home Medications: Home Medications Medication Instructions Recorded Confirmed Last Taken Type Aspirin [Aspirin TAB] 81 mg PO QDAY 04/28/13 12/31/16 12/30/16 History Ipratropium/Albuterol Sulfate 1 spray IH QID 04/28/13 12/31/16 12/30/16 History [Combivent Respimat] Metoprolol [Lopressor TAB] 50 mg PO BID 04/28/13 12/31/16 12/30/16 History Simvastatin 20 mg PO QDAY 04/28/13 12/31/16 12/30/16 History cloNIDine [Catapres] 0.1 mg PO BID 04/28/13 12/31/16 12/30/16 History Budesoni/Formotero 160-4.5(Nf) 2 puff IH BID 11/01/13 12/31/16 12/30/16 History [Symbicort 160-4.5 (Nf)] Colchicine [Colcrys] 0.6 mg PO DAILY 11/01/13 12/31/16 12/30/16 History Montelukast [Singulair] 10 mg PO QPM 06/15/16 11/14/17 11/13/17 History ALBUTEROL Inhaler [ProAir HFA 2 puff IH QID PRN #1 inhalation 04/08/16 12/31/16 12/30/16 Rx Inhaler] Allopurinol [Zyloprim] 100 mg PO QDAY 09/05/16 12/31/16 12/30/16 History amLODIPine [Norvasc] 10 mg PO DAILY 09/05/16 12/31/16 12/30/16 History Fluticasone [Flonase] 1 spray NS QDAY 12/31/16 12/31/16 12/30/16 History Furosemide [Lasix] 20 mg PO BID 12/31/16 12/31/16 12/30/16 History HYDROcodone/APAP 7.5-325 [[place] 1 each PO Q6HR PRN 12/31/16 12/31/16 12/30/16 History 7.5/325] Review of Systems ROS: Stated complaint: CRUZITO Other details as noted in HPI Comment: All other systems reviewed and negative Constitutional: denies: chills, fever Eyes: denies: eye pain, eye discharge, vision change ENT: denies: ear pain, throat pain Respiratory: cough, shortness of breath, wheezing Cardiovascular: denies: chest pain, edema Gastrointestinal: denies: abdominal pain, nausea, diarrhea Genitourinary: denies: urgency, dysuria, discharge Musculoskeletal: denies: back pain, joint swelling, arthralgia Skin: denies: rash, lesions Neurological: denies: headache, weakness, paresthesias Medications and Allergies Allergies Allergy/AdvReac Type Severity Reaction Status Date / Time latex Allergy Hives Verified 09/05/16 10:49 milk Allergy Rash Verified 09/05/16 10:49 Home Medications Medication Instructions Recorded Confirmed Last Taken Type Aspirin [Aspirin TAB] 81 mg PO QDAY 04/28/13 12/31/16 12/30/16 History Ipratropium/Albuterol Sulfate 1 spray IH QID 04/28/13 12/31/16 12/30/16 History [Combivent Respimat] Metoprolol [Lopressor TAB] 50 mg PO BID 04/28/13 12/31/16 12/30/16 History Simvastatin 20 mg PO QDAY 04/28/13 12/31/16 12/30/16 History cloNIDine [Catapres] 0.1 mg PO BID 04/28/13 12/31/16 12/30/16 History Budesoni/Formotero 160-4.5(Nf) 2 puff IH BID 11/01/13 12/31/16 12/30/16 History [Symbicort 160-4.5 (Nf)] Colchicine [Colcrys] 0.6 mg PO DAILY 11/01/13 12/31/16 12/30/16 History Montelukast [Singulair] 10 mg PO QPM 08/02/15 12/31/16 12/30/16 History ALBUTEROL Inhaler [ProAir HFA 2 puff IH QID PRN #1 inhalation 04/08/16 12/31/16 12/30/16 Rx Inhaler] Allopurinol [Zyloprim] 100 mg PO QDAY 09/05/16 12/31/16 12/30/16 History amLODIPine [Norvasc] 10 mg PO DAILY 09/05/16 12/31/16 12/30/16 History Fluticasone [Flonase] 1 spray NS QDAY 12/31/16 12/31/16 12/30/16 History Furosemide [Lasix] 20 mg PO BID 12/31/16 12/31/16 12/30/16 History HYDROcodone/APAP 7.5-325 [[place] 1 each PO Q6HR PRN 12/31/16 12/31/16 12/30/16 History 7.5/325] Active Meds: Active Medications Albuterol/Ipratropium (Duoneb *Not For Prn Use*) 1 ampul IH Q4HRT [facility] Last Admin: 12/31/16 21:38 Dose: 1 ampul Heparin Sodium/Sodium Chloride (Heparin/ 0.45% Nacl-25,000 Unit/500 Ml) 25,000 unit in 500 mls @ 15 mls/hr IV TITR [facility]; 750 UNITS/HR PRN Reason: Protocol Last Admin: 12/31/16 12:29 Dose: 750 units/hr, 15 mls/hr Influenza Virus Vaccine Quadrival (Fluarix Quad 6152-8363(36 Mos+) 0.5 ml IM .ONCE ONE Stop: 01/01/17 12:01 Exam - Constitutional Vitals: Temp Pulse Resp BP Pulse Ox 98.1 F 86 22 175/89 100 12/31/16 19:30 12/31/16 21:50 12/31/16 21:50 12/31/16 19:30 12/31/16 19:30 General appearance: Present: no acute distress, mild distress, well-nourished - EENT Eyes: Present: PERRL ENT: hearing intact, clear oral mucosa - Neck Neck: Present: supple, normal ROM - Respiratory Respiratory effort: normal Respiratory: bilateral: diminished, rhonchi - Cardiovascular Heart rate: 80 Rhythm: regular Heart Sounds: Present: S1 & S2. Absent: rub, click - Extremities Extremities: no ischemia, pulses intact, pulses symmetrical, No edema Peripheral Pulses: within normal limits - Abdominal General gastrointestinal: Present: soft, non-tender, non-distended, normal bowel sounds Female genitourinary: Present: normal - Rectal Rectal Exam: deferred - Integumentary Integumentary: Present: clear, warm, dry - Musculoskeletal Musculoskeletal: gait normal, strength equal bilaterally - Psychiatric Psychiatric: appropriate mood/affect, intact judgment & insight - Neurologic Neurologic: CNII-XII intact, moves all extremities - Allied Health Allied health notes reviewed: nursing, case management Results - Labs CBC & Chem 7: 12/31/16 08:45 12/31/16 08:45 Labs: Laboratory Last Values WBC 7.1 K/mm3 (4.5-11.0) 12/31/16 08:45 RBC 4.27 M/mm3 (3.65-5.03) 12/31/16 08:45 Hgb 11.6 gm/dl (10.1-14.3) 12/31/16 08:45 Hct 36.5 % (30.3-42.9) 12/31/16 08:45 MCV 85 fl (79-97) 12/31/16 08:45 MCH 27 pg (28-32) L 12/31/16 08:45 MCHC 32 % (30-34) 12/31/16 08:45 RDW 15.9 % (13.2-15.2) H 12/31/16 08:45 Plt Count 163 K/mm3 (140-440) 12/31/16 08:45 Lymph % (Auto) 18.9 % (13.4-35.0) 12/31/16 08:45 [place] % (Auto) 14.3 % (0.0-7.3) H 12/31/16 08:45 Eos % (Auto) 2.0 % (0.0-4.3) 12/31/16 08:45 Baso % (Auto) 0.5 % (0.0-1.8) 12/31/16 08:45 Lymph # 1.3 K/mm3 (1.2-5.4) 12/31/16 08:45 [place] # 1.0 K/mm3 (0.0-0.8) H 12/31/16 08:45 Eos # 0.1 K/mm3 (0.0-0.4) 12/31/16 08:45 Baso # 0.0 K/mm3 (0.0-0.1) 12/31/16 08:45 Seg Neutrophils % 64.3 % (40.0-70.0) 12/31/16 08:45 Seg Neutrophils # 4.5 K/mm3 (1.8-7.7) 12/31/16 08:45 PT 13.7 Sec. (12.2-14.9) 12/31/16 12:12 INR 1.00 (0.87-1.13) 12/31/16 12:12 APTT 30.2 Sec. (24.2-36.6) 12/31/16 12:12 D-Dimer 2527.54 ng/mlDDU (0-234) H 12/31/16 08:45 Heparin Anti-Xa Level 1.31 U.I./ml (0.3-0.7) H 12/31/16 17:50 Sodium 143 mmol/L (137-145) 12/31/16 08:45 Potassium 4.8 mmol/L (3.6-5.0) 12/31/16 08:45 Chloride 101.1 mmol/L (98-107) 12/31/16 08:45 Carbon Dioxide 26 mmol/L (22-30) 12/31/16 08:45 Anion Gap 21 mmol/L 12/31/16 08:45 BUN 35 mg/dL (7-17) H 12/31/16 08:45 Creatinine 1.8 mg/dL (0.7-1.2) H 12/31/16 08:45 Estimated GFR 33 ml/min 12/31/16 08:45 BUN/Creatinine Ratio 19 % 12/31/16 08:45 Glucose 103 mg/dL (65-100) H 12/31/16 08:45 Calcium 8.5 mg/dL (8.4-10.2) 12/31/16 08:45 Magnesium 2.90 mg/dL (1.7-2.3) H 12/31/16 08:45 Troponin T < 0.010 ng/mL (0.00-0.029) 12/31/16 08:45 NT-Pro-B Natriuret Pep 909.2 pg/mL (0-900) H 12/31/16 08:54 Urine Color Straw (Yellow) 12/31/16 11:15 Urine Turbidity Clear (Clear) 12/31/16 11:15 Urine pH 7.0 (5.0-7.0) 12/31/16 11:15 Ur Specific [place] 1.013 (1.003-1.030) 12/31/16 11:15 Urine Protein <15 mg/dl mg/dL (Negative) 12/31/16 11:15 Urine Glucose (UA) Neg mg/dL (Negative) 12/31/16 11:15 Urine Ketones Neg mg/dL (Negative) 12/31/16 11:15 Urine Blood Neg (Negative) 12/31/16 11:15 Urine Nitrite Neg (Negative) 12/31/16 11:15 Urine Bilirubin Neg (Negative) 12/31/16 11:15 Urine Urobilinogen < 2.0 mg/dL (<2.0) 12/31/16 11:15 Ur Leukocyte Esterase Sm (Negative) 12/31/16 11:15 Urine WBC (Auto) < 1.0 /HPF (0.0-6.0) 12/31/16 11:15 Urine RBC (Auto) 1.0 /HPF (0.0-6.0) 12/31/16 11:15 U Epithel Cells (Auto) < 1.0 /HPF (0-13.0) 12/31/16 11:15 - Imaging and Cardiology EKG: report reviewed Chest x-ray: report reviewed Assessment and Plan Advance Directives: Yes (Full code) VTE prophylaxis?: Chemical Plan of care discussed with patient/family: Yes - Patient Problems (1) Acute pulmonary embolism Current Visit: Yes Status: Acute Qualifiers: Pulmonary embolism type: P Acute cor pulmonale presence: without acute cor pulmonale Plan to address problem: Patient initiated on IV Heparin and Xarelto IR consult requested (2) COPD exacerbation Current Visit: Yes Status: Acute Plan to address problem: Patient initiated on Neb tx IV solumedrol and Levaquin pulm consulted (3) SMITA (acute kidney injury) Current Visit: Yes Status: Acute Plan to address problem: IV fluids for now (4) HTN (hypertension) Current Visit: Yes Status: Chronic Qualifiers: Hypertension type: essential hypertension Qualified Code(s): I10 - Essential (primary) hypertension Plan to address problem: Cont Metoprolol and Clonidine (5) HLD (hyperlipidemia) Current Visit: Yes Status: Chronic Qualifiers: Hyperlipidemia type: mixed hyperlipidemia Qualified Code(s): E78.2 - Mixed hyperlipidemia Plan to address problem: Cont Simvastatin (6) Gout Current Visit: Yes Status: Inactive Qualifiers: Gout site: G Gout etiology: G Encounter type: E Chronicity: C Laterality: L Presence of tophus: P Plan to address problem: Cont Allopurinol (7) Asthma Current Visit: Yes Status: Acute Qualifiers: Asthma severity: mild Asthma persistence: A Asthma complication type: A Plan to address problem: Cont Singulair (8) DVT prophylaxis Current Visit: Yes Status: Acute Plan to address problem: On Heparin and Xarelto
[2017-01-01] MEDS: DUONEB *Not for PRN Use IH SCH ×6 (00:20→20:00)
[2017-01-01] MEDS ORDERED: MILK OF MAGNESIA PO PRN (00:46)
[2017-01-01] MEDS ORDERED: ZOFRAN IV PRN (00:46)
[2017-01-01] MEDS ORDERED: DULCOLAX PR PRN (00:46)
[2017-01-01] MEDS ORDERED: TYLENOL PO PRN (00:46)
[2017-01-01] MEDS: NACL 0.9% 1000 ML 1,000 ML IV SCH ×2 (02:35→14:20)
[2017-01-01] MEDS: PEPCID IV SCH (09:49)
[2017-01-01] MEDS ORDERED: NON-FORMULARY (Ipratropium/Albuterol Sulfate [Combivent Respimat] 1 SPRAY) IH SCH (10:00)
[2017-01-01] MEDS ORDERED: LEVAQUIN 750MG/150ML 750 MG/150 ML BAG IV SCH ×2 (10:00)
[2017-01-01] MEDS ORDERED: NON-FORMULARY (Budesoni/Formotero 160-4.5(Nf) 2 PUFF) IH SCH (10:00)
[2017-01-01] MEDS ORDERED: PEPCID IV SCH (10:00)
[2017-01-01] MEDS ORDERED: ASPIRIN PO SCH (10:00)
[2017-01-01] MEDS ORDERED: NON-FORMULARY (Simvastatin [Simvastatin] 20 MG) PO SCH (10:00)
[2017-01-01] MEDS: LOPRESSOR PO SCH ×2 (10:07→22:45)
[2017-01-01] MEDS: BABY ASPIRIN PO SCH (10:08)
[2017-01-01] MEDS: LASIX PO SCH ×2 (10:08→17:41)
[2017-01-01] MEDS: NORVASC PO SCH (10:08)
[2017-01-01] MEDS: CATAPRES PO SCH ×2 (10:08→22:45)
[2017-01-01] MEDS: ZYLOPRIM PO SCH (10:09)
[2017-01-01] MEDS: HEPARIN/ 0.45% NACL-25,000 UNIT/500 ML 25,000 UNIT/500 ML BAG IV SCH (10:54)
--- NOTE | 2017-01-01 11:51 | Consultation ---
History of Present Illness - Reason for Consult Consult date: 01/01/17 acute renal failure - History of Present Illness The patient is a 76-year-old AAF with medical history significant for COPD, Asthma, CHF, Type 2 diabetes, CAD, Hypertension and CKD stage 3 who presented to the emergency department by EMS from home with complaint of difficulty breathing since she woke up that morning. She tried to use her home nebulizer without much relief. Patient was intubated 3 times in the past for similar asthmatic or respiratory conditions. She reports poor appetite, decreased PO intake and 30 lbs weight loss over the past 3 months. Her creatinine on admission was 1.8. She is currently not followed by any [employer] [facility] [employer] [facility]. Consult requested for evaluation of SMITA. Past History Past Medical History: COPD, diabetes, heart failure, hypertension, hyperlipidemia Medications and Allergies Allergies Allergy/AdvReac Type Severity Reaction Status Date / Time latex Allergy Hives Verified 09/05/16 10:49 milk Allergy Rash Verified 09/05/16 10:49 Home Medications Medication Instructions Recorded Confirmed Last Taken Type Aspirin [Aspirin TAB] 81 mg PO QDAY 04/28/13 12/31/16 12/30/16 History Ipratropium/Albuterol Sulfate 1 spray IH QID 04/28/13 12/31/16 12/30/16 History [Combivent Respimat] Metoprolol [Lopressor TAB] 50 mg PO BID 04/28/13 12/31/16 12/30/16 History Simvastatin 20 mg PO QDAY 04/28/13 12/31/16 12/30/16 History cloNIDine [Catapres] 0.1 mg PO BID 04/28/13 12/31/16 12/30/16 History Budesoni/Formotero 160-4.5(Nf) 2 puff IH BID 11/01/13 12/31/16 12/30/16 History [Symbicort 160-4.5 (Nf)] Colchicine [Colcrys] 0.6 mg PO DAILY 11/01/13 12/31/16 12/30/16 History Montelukast [Singulair] 10 mg PO QPM 08/02/15 12/31/16 12/30/16 History ALBUTEROL Inhaler [ProAir HFA 2 puff IH QID PRN #1 inhalation 04/08/16 12/31/16 12/30/16 Rx Inhaler] Allopurinol [Zyloprim] 100 mg PO QDAY 09/05/16 12/31/16 12/30/16 History amLODIPine [Norvasc] 10 mg PO DAILY 09/05/16 12/31/16 12/30/16 History Fluticasone [Flonase] 1 spray NS QDAY 12/31/16 12/31/16 12/30/16 History Furosemide [Lasix] 20 mg PO BID 12/31/16 12/31/16 12/30/16 History HYDROcodone/APAP 7.5-325 [[place] 1 each PO Q6HR PRN 12/31/16 12/31/16 12/30/16 History 7.5/325] Active Meds: Active Medications Acetaminophen (Tylenol) 650 mg PO Q4H PRN PRN Reason: Pain MILD(1-3)/Fever >100.5/HERRMANN Acetaminophen/Hydrocodone Bitart ([place] 7.5/325) 1 each PO Q6HR PRN PRN Reason: Pain Albuterol/Ipratropium (Duoneb *Not For Prn Use*) 1 ampul IH Q6HRT [facility] Last Admin: 01/01/17 08:47 Dose: 1 ampul Allopurinol (Zyloprim) 100 mg PO QDAY [facility] Last Admin: 01/01/17 10:09 Dose: 100 mg Amlodipine Besylate (Norvasc) 10 mg PO DAILY [facility] Last Admin: 01/01/17 10:08 Dose: 10 mg Aspirin (Baby Aspirin) 81 mg PO QDAY [facility] Last Admin: 01/01/17 10:08 Dose: 81 mg Bisacodyl (Dulcolax) 10 mg [place] QDAY PRN PRN Reason: Constipation unrelieved by MOM Clonidine HCl (Catapres) 0.1 mg PO BID [facility] Last Admin: 01/01/17 10:08 Dose: 0.1 mg Famotidine (Pepcid) 20 mg IV DAILY [facility] Last Admin: 01/01/17 09:49 Dose: 20 mg Fluticasone Propionate (Flonase) mcg NS QDAY [facility] Furosemide (Lasix) 20 mg PO 0600,1800 [facility] Last Admin: 01/01/17 10:08 Dose: 20 mg Heparin Sodium/Sodium Chloride (Heparin/ 0.45% Nacl-25,000 Unit/500 Ml) 25,000 unit in 500 mls @ 15 mls/hr IV TITR [facility]; 750 UNITS/HR PRN Reason: Protocol Last Admin: 01/01/17 10:54 Dose: 700 units/hr, 14 mls/hr Sodium Chloride (Nacl 0.9% 1000 Ml) 1,000 mls @ 100 mls/hr IV DIRECT [facility] Last Admin: 01/01/17 02:35 Dose: 100 mls/hr Levofloxacin/Dextrose (Levaquin 750mg/150ml) 750 mg in 150 mls @ 100 mls/hr IV Q48HR [facility]KNG PRN Reason: Protocol Last Admin: 01/01/17 09:48 Dose: 100 mls/hr Influenza Virus Vaccine Quadrival (Fluarix Quad [id number](36 Mos+) 0.5 ml IM .ONCE ONE Stop: 01/01/17 12:01 Magnesium Hydroxide (Milk Of Magnesia) 30 ml PO Q4H PRN PRN Reason: Constipation Methylprednisolone Sodium Succinate (Solu-Medrol) 125 mg IV Q8H [facility] Last Admin: 01/01/17 09:49 Dose: 125 mg Metoprolol Tartrate (Lopressor) 50 mg PO BID [facility] Last Admin: 01/01/17 10:07 Dose: 50 mg Miscellaneous Medication (Budesoni/Formotero 160-4.5(Nf)) 2 puff IH BID [facility] Miscellaneous Medication (Ipratropium/Albuterol Sulfate [Combivent Respimat]) 1 spray IH QID [facility] Miscellaneous Medication (Simvastatin [Simvastatin]) 20 mg PO QDAY [facility] Montelukast Sodium (Singulair) 10 mg PO QPM [facility] Ondansetron HCl (Zofran) 4 mg IV Q8H PRN PRN Reason: N/V unrelieved by Reglan Oxycodone/Acetaminophen (Percocet 5/325) 1 tab PO Q6H PRN PRN Reason: Pain, Moderate (4-6) Rivaroxaban (Xarelto) 15 mg PO BIDDIAB [facility] PRN Reason: Protocol Zolpidem Tartrate (Ambien) 5 mg PO QHS PRN PRN Reason: Insomnia Review of Systems Constitutional: weight loss (30 lbs weigt loss over 3 months), anorexia, poor appetite, no weight gain, no fever, no chills Ears, nose, mouth and throat: no epistaxis Breasts: deferred Cardiovascular: shortness of breath, dyspnea on exertion, high blood pressure, decreased exercise tolerance, no chest pain, no orthopnea, no palpitations, no edema, no syncope, no lightheadedness, no leg edema Respiratory: cough, shortness of breath, dyspnea on exertion, no hemoptysis Gastrointestinal: no abdominal pain, no nausea, no vomiting, no diarrhea, no BRBPR, no melena Genitourinary Female: no dysuria, no hematuria Rectal: no bleeding Musculoskeletal: no redness of joints Integumentary: no rash, no redness, no wounds, no jaundice Neurological: no paralysis, no weakness, no seizures, no syncope Psychiatric: no disorientation Exam - Vital Signs Vital signs: Vital Signs Temp Pulse Resp BP Pulse Ox 98.6 F 79 24 140/76 100 12/31/16 08:12 12/31/16 08:12 12/31/16 08:12 12/31/16 08:12 12/31/16 08:12 - General Appearance General appearance: well-developed, appears stated age, other (thin built, tachypneic) EENT: ATNC, PERRL, hearing intact, vision intact Neck: Present: neck supple, trachea midline Respiratory: Ronchi Heart: regular, S1S2, no murmurs Gastrointestinal: Present: normoactive bowel sounds Integumentary: no rash, warm and dry Neurologic: no focal deficit, no asterixis, alert and oriented x3, CN 3-12 intact Musculoskeletal: Present: other (no edema) Psychiatric: mood/affect appropriate, cooperative Results - Lab Results 01/02/17 07:14 01/02/17 07:14 Most recent lab results Calcium 8.5 mg/dL (8.4-10.2) 12/31/16 08:45 Magnesium 2.90 mg/dL (1.7-2.3) H 12/31/16 08:45 Assessment and Plan 1. Acute kidney injury: SMITA superimposed on CKD stage 3 in the setting of volume depletion. Continue IV fluids. Hemodynamically stable. 2. Acute PE. 3. COPD exacerbation.
[2017-01-01] MEDS ORDERED: Fluarix Quad 2017-2018(36 MOS+ IM ONE (12:00)
--- NOTE | 2017-01-01 12:15 | Consultation ---
History of Present Illness Consult date: 01/01/17 Reason for consult: dyspnea, COPD, pulmonary embolism History of present illness: Called to evaluate case of a 76-year-old -[place] female, admitted to the hospital after she presented with history of shortness of breath and COPD. The patient reportedly had breathing problems yesterday and came to the ED after no improvement with breathing treatments. She has history of COPD and heart problems and she follows with Dr. Garrido at the pulmonary office. She reported that she had some shortness of breath, chest tightness and some increase in her cough and expectoration. Expectoration appears to be yellow color. No hemoptysis. She denies fever, chills or flu contacts. The patient has prior history of DVT for which she had been taking aspirin and reportedly Plavix previously Initial chest x-ray showed no evidence of pulmonary infiltrates or effusions. No pneumothorax. There was evidence of sternotomy. Ventilation/perfusion scan however was reportedly high probability, consistent with pulmonary embolism. Called to evaluate. Past History Past Medical History: COPD, DVT Medications and Allergies Allergies Allergy/AdvReac Type Severity Reaction Status Date / Time latex Allergy Hives Verified 09/05/16 10:49 milk Allergy Rash Verified 09/05/16 10:49 Home Medications Medication Instructions Recorded Confirmed Last Taken Type Aspirin [Aspirin TAB] 81 mg PO QDAY 04/28/13 12/31/16 12/30/16 History Ipratropium/Albuterol Sulfate 1 spray IH QID 04/28/13 12/31/16 12/30/16 History [Combivent Respimat] Metoprolol [Lopressor TAB] 50 mg PO BID 04/28/13 12/31/16 12/30/16 History Simvastatin 20 mg PO QDAY 04/28/13 12/31/16 12/30/16 History cloNIDine [Catapres] 0.1 mg PO BID 04/28/13 12/31/16 12/30/16 History Budesoni/Formotero 160-4.5(Nf) 2 puff IH BID 11/01/13 12/31/16 12/30/16 History [Symbicort 160-4.5 (Nf)] Colchicine [Colcrys] 0.6 mg PO DAILY 11/01/13 12/31/16 12/30/16 History Montelukast [Singulair] 10 mg PO QPM 08/02/15 12/31/16 12/30/16 History ALBUTEROL Inhaler [ProAir HFA 2 puff IH QID PRN #1 inhalation 04/08/16 12/31/16 12/30/16 Rx Inhaler] Allopurinol [Zyloprim] 100 mg PO QDAY 09/05/16 12/31/16 12/30/16 History amLODIPine [Norvasc] 10 mg PO DAILY 09/05/16 12/31/16 12/30/16 History Fluticasone [Flonase] 1 spray NS QDAY 12/31/16 12/31/16 12/30/16 History Furosemide [Lasix] 20 mg PO BID 12/31/16 12/31/16 12/30/16 History HYDROcodone/APAP 7.5-325 [[place] 1 each PO Q6HR PRN 12/31/16 12/31/16 12/30/16 History 7.5/325] Active Meds: Active Medications Acetaminophen (Tylenol) 650 mg PO Q4H PRN PRN Reason: Pain MILD(1-3)/Fever >100.5/HERRMANN Acetaminophen/Hydrocodone Bitart ([place] 7.5/325) 1 each PO Q6HR PRN PRN Reason: Pain Albuterol/Ipratropium (Duoneb *Not For Prn Use*) 1 ampul IH Q6HRT [facility] Last Admin: 01/01/17 08:47 Dose: 1 ampul Allopurinol (Zyloprim) 100 mg PO QDAY [facility] Last Admin: 01/01/17 10:09 Dose: 100 mg Amlodipine Besylate (Norvasc) 10 mg PO DAILY [facility] Last Admin: 01/01/17 10:08 Dose: 10 mg Aspirin (Baby Aspirin) 81 mg PO QDAY [facility] Last Admin: 01/01/17 10:08 Dose: 81 mg Bisacodyl (Dulcolax) 10 mg [place] QDAY PRN PRN Reason: Constipation unrelieved by MOM Clonidine HCl (Catapres) 0.1 mg PO BID [facility] Last Admin: 01/01/17 10:08 Dose: 0.1 mg Famotidine (Pepcid) 20 mg IV DAILY [facility] Last Admin: 01/01/17 09:49 Dose: 20 mg Fluticasone Propionate (Flonase) 100 mcg NS QDAY [facility] Furosemide (Lasix) 20 mg PO 0600,1800 [facility] Last Admin: 01/01/17 10:08 Dose: 20 mg Heparin Sodium/Sodium Chloride (Heparin/ 0.45% Nacl-25,000 Unit/500 Ml) 25,000 unit in 500 mls @ 15 mls/hr IV TITR [facility]; 750 UNITS/HR PRN Reason: Protocol Last Admin: 01/01/17 10:54 Dose: 700 units/hr, 14 mls/hr Sodium Chloride (Nacl 0.9% 1000 Ml) 1,000 mls @ 100 mls/hr IV DIRECT [facility] Last Admin: 01/01/17 02:35 Dose: 100 mls/hr Levofloxacin/Dextrose (Levaquin 750mg/150ml) 750 mg in 150 mls @ 100 mls/hr IV Q48HR [facility] PRN Reason: Protocol Last Admin: 01/01/17 09:48 Dose: 100 mls/hr Magnesium Hydroxide (Milk Of Magnesia) 30 ml PO Q4H PRN PRN Reason: Constipation Methylprednisolone Sodium Succinate (Solu-Medrol) 125 mg IV Q8H [facility] Last Admin: 01/01/17 09:49 Dose: 125 mg Metoprolol Tartrate (Lopressor) 50 mg PO BID [facility] Last Admin: 01/01/17 10:07 Dose: 50 mg Miscellaneous Medication (Budesoni/Formotero 160-4.5(Nf)) 2 puff IH BID [facility] Miscellaneous Medication (Ipratropium/Albuterol Sulfate [Combivent Respimat]) 1 spray IH QID [facility] Miscellaneous Medication (Simvastatin [Simvastatin]) 20 mg PO QDAY [facility] Montelukast Sodium (Singulair) 10 mg PO QPM [facility] Ondansetron HCl (Zofran) 4 mg IV Q8H PRN PRN Reason: N/V unrelieved by Reglan Oxycodone/Acetaminophen (Percocet 5/325) 1 tab PO Q6H PRN PRN Reason: Pain, Moderate (4-6) Rivaroxaban (Xarelto) 15 mg PO BIDDIAB [facility] PRN Reason: Protocol Zolpidem Tartrate (Ambien) 5 mg PO QHS PRN PRN Reason: Insomnia Review of Systems Constitutional: no fever, no chills, no sweats Ears, nose, mouth and throat: no epistaxis, no bleeding gums Cardiovascular: shortness of breath, dyspnea on exertion, no chest pain, no orthopnea, no palpitations, no rapid/irregular heart beat, no edema, no syncope Respiratory: cough with sputum Gastrointestinal: no abdominal pain, no nausea, no vomiting, no diarrhea, no constipation, no BRBPR, no melena, no hematochezia Genitourinary Female: no menorrhagia Rectal: no bleeding Neurological: no head injury, no transient paralysis, no paralysis, no weakness , no parathesias, no numbness, no tingling, no seizures Hematologic/Lymphatic: no easy bruising, no easy bleeding, no lymphadenopathy, no lymphedema Physical Examination Vital signs: Vital Signs Temp Pulse Resp BP Pulse Ox 98.6 F 79 24 140/76 100 12/31/16 08:12 12/31/16 08:12 12/31/16 08:12 12/31/16 08:12 12/31/16 08:12 General appearance: no acute distress Eyes: non-icteric ENT: oropharynx moist Neck: supple, no lymphadenopathy, no JVD Ascultation: Bilateral: diminished breath sounds, rales (very mild bases bilaterally.) Cardiovascular: regular rate and rhythm Gastrointestinal: normoactive bowel sounds, non-distended Integumentary: normal Extremities: no cyanosis, no edema, other (yaya's is negative) normal mental status, non-focal exam, CN II-XII normal, motor strength normal and Results - Laboratory Findings CBC and BMP: 12/31/16 08:45 12/31/16 08:45 PT/INR, D-dimer PT 13.7 Sec. (12.2-14.9) 12/31/16 12:12 INR 1.00 (0.87-1.13) 12/31/16 12:12 D-Dimer 2527.54 ng/mlDDU (0-234) H 12/31/16 08:45 Abnormal lab findings: Abnormal Labs 12/31/16 01/01/17 01/01/17 17:50 05:25 08:06 Heparin Anti-Xa Level 1.31 H 0.15 L 0.22 L - Diagnostic Findings Chest x-ray: report reviewed, image reviewed Assessment and Plan Pulmonary embolism. Hemodynamically stable at this time. High BNP COPD with exacerbation Dyspnea secondary to the above. Past medical history of DVT Chronic kidney disease Recommendations Albuterol 2.5 milligram nebulizations every 4-6 hours with or without ipratropium Solu-Medrol 40-60 mg IV every 6-8 hours Oxygen support via nasal cannula or mask to maintain oximetry over 92% Continue started on the coordination with heparin and progress to OAC as tolerated. Echo evaluation
--- NOTE | 2017-01-01 12:37 | Progress Note ---
Assessment and Plan Assessment and plan: (1) Acute pulmonary embolism Patient initiated on IV Heparin and Xarelto. Echocardiogram IR consulted (2) COPD exacerbation Continue on Neb tx, IV solumedrol and Levaquin. Oxygen support via nasal cannula or mask to maintain oximetry over 92% pulm consulted (3) SMITA (acute kidney injury) IV fluids for now (4) HTN (hypertension) Cont Metoprolol and Clonidine (5) HLD (hyperlipidemia) Cont Simvastatin (6) Gout Cont Allopurinol (7) Asthma Cont Singulair (8) DVT prophylaxis On Heparin and Xarelto History Interval history: No new issues overnight. Hospitalist Physical - Constitutional Vitals: Temp Pulse Resp BP Pulse Ox 97.9 F 96 H 22 172/89 97 01/01/17 04:52 01/01/17 12:07 01/01/17 10:00 01/01/17 10:08 01/01/17 10:00 General appearance: Present: no acute distress, well-nourished Results - Labs CBC & Chem 7: 12/31/16 08:45 12/31/16 08:45 Labs: Laboratory Last Values WBC 7.1 K/mm3 (4.5-11.0) 12/31/16 08:45 RBC 4.27 M/mm3 (3.65-5.03) 12/31/16 08:45 Hgb 11.6 gm/dl (10.1-14.3) 12/31/16 08:45 Hct 36.5 % (30.3-42.9) 12/31/16 08:45 MCV 85 fl (79-97) 12/31/16 08:45 MCH 27 pg (28-32) L 12/31/16 08:45 MCHC 32 % (30-34) 12/31/16 08:45 RDW 15.9 % (13.2-15.2) H 12/31/16 08:45 Plt Count 163 K/mm3 (140-440) 12/31/16 08:45 Lymph % (Auto) 18.9 % (13.4-35.0) 12/31/16 08:45 [place] % (Auto) 14.3 % (0.0-7.3) H 12/31/16 08:45 Eos % (Auto) 2.0 % (0.0-4.3) 12/31/16 08:45 Baso % (Auto) 0.5 % (0.0-1.8) 12/31/16 08:45 Lymph # 1.3 K/mm3 (1.2-5.4) 12/31/16 08:45 [place] # 1.0 K/mm3 (0.0-0.8) H 12/31/16 08:45 Eos # 0.1 K/mm3 (0.0-0.4) 12/31/16 08:45 Baso # 0.0 K/mm3 (0.0-0.1) 12/31/16 08:45 Seg Neutrophils % 64.3 % (40.0-70.0) 12/31/16 08:45 Seg Neutrophils # 4.5 K/mm3 (1.8-7.7) 12/31/16 08:45 PT 13.7 Sec. (12.2-14.9) 12/31/16 12:12 INR 1.00 (0.87-1.13) 12/31/16 12:12 APTT 30.2 Sec. (24.2-36.6) 12/31/16 12:12 D-Dimer 2527.54 ng/mlDDU (0-234) H 12/31/16 08:45 Heparin Anti-Xa Level 0.22 U.I./ml (0.3-0.7) L 01/01/17 08:06 Sodium 143 mmol/L (137-145) 12/31/16 08:45 Potassium 4.8 mmol/L (3.6-5.0) 12/31/16 08:45 Chloride 101.1 mmol/L (98-107) 12/31/16 08:45 Carbon Dioxide 26 mmol/L (22-30) 12/31/16 08:45 Anion Gap 21 mmol/L 12/31/16 08:45 BUN 35 mg/dL (7-17) H 12/31/16 08:45 Creatinine 1.8 mg/dL (0.7-1.2) H 12/31/16 08:45 Estimated GFR 33 ml/min 12/31/16 08:45 BUN/Creatinine Ratio 19 % 12/31/16 08:45 Glucose 103 mg/dL (65-100) H 12/31/16 08:45 Calcium 8.5 mg/dL (8.4-10.2) 12/31/16 08:45 Magnesium 2.90 mg/dL (1.7-2.3) H 12/31/16 08:45 Troponin T < 0.010 ng/mL (0.00-0.029) 12/31/16 08:45 NT-Pro-B Natriuret Pep 909.2 pg/mL (0-900) H 12/31/16 08:54 Urine Color Straw (Yellow) 12/31/16 11:15 Urine Turbidity Clear (Clear) 12/31/16 11:15 Urine pH 7.0 (5.0-7.0) 12/31/16 11:15 Ur Specific [place] 1.013 (1.003-1.030) 12/31/16 11:15 Urine Protein <15 mg/dl mg/dL (Negative) 12/31/16 11:15 Urine Glucose (UA) Neg mg/dL (Negative) 12/31/16 11:15 Urine Ketones Neg mg/dL (Negative) 12/31/16 11:15 Urine Blood Neg (Negative) 12/31/16 11:15 Urine Nitrite Neg (Negative) 12/31/16 11:15 Urine Bilirubin Neg (Negative) 12/31/16 11:15 Urine Urobilinogen < 2.0 mg/dL (<2.0) 12/31/16 11:15 Ur Leukocyte Esterase Sm (Negative) 12/31/16 11:15 Urine WBC (Auto) < 1.0 /HPF (0.0-6.0) 12/31/16 11:15 Urine RBC (Auto) 1.0 /HPF (0.0-6.0) 12/31/16 11:15 U Epithel Cells (Auto) < 1.0 /HPF (0-13.0) 12/31/16 11:15
[2017-01-01] MEDS: ELIQUIS PO SCH ×2 (13:30→22:45)
[2017-01-01] MEDS: PULMICORT IH SCH ×2 (14:00→19:57)
[2017-01-01] MEDS: BROVANA NEBU IH SCH ×2 (14:00→19:57)
[2017-01-01] MEDS: FLONASE NS SCH (14:21)
[2017-01-01] MEDS ORDERED: DUONEB *Not for PRN Use IH SCH (16:00)
[2017-01-01] MEDS ORDERED: XARELTO PO SCH (17:00)
[2017-01-01] MEDS: SINGULAIR PO SCH (17:41)
--- NOTE | 2017-01-01 19:15 | Consultation ---
History of Present Illness - Reason for Consult Consult date: 01/01/17 Pulmonary Embolus Requesting physician: KEITH ROTH - History of Present Illness This patient is a 76-year-old -[place] female who presented to the emergency room due to progressive shortness of breath. She has underlying lung disease. However, this did not improved with her typical nebulizer treatments. Therefore, she went to the emergency room where she has since been admitted. A VQ scan was ordered and showed a high probability of pulmonary embolus. A vascular surgery consult has been requested to further evaluate. She was started on heparin initially and has since been converted to Eliquis. Past History Past Medical History: CAD, COPD, diabetes, DVT, PVD, renal failure Past Surgical History: CABG, Other (right knee and foot surgery ) Social history: denies: smoking Family history: no significant family history (none listed) Medications and Allergies Allergies Allergy/AdvReac Type Severity Reaction Status Date / Time latex Allergy Hives Verified 09/05/16 10:49 milk Allergy Rash Verified 09/05/16 10:49 Home Medications Medication Instructions Recorded Confirmed Last Taken Type Aspirin [Aspirin TAB] 81 mg PO QDAY 04/28/13 12/31/16 12/30/16 History Ipratropium/Albuterol Sulfate 1 spray IH QID 04/28/13 12/31/16 12/30/16 History [Combivent Respimat] Metoprolol [Lopressor TAB] 50 mg PO BID 04/28/13 12/31/16 12/30/16 History Simvastatin 20 mg PO QDAY 04/28/13 12/31/16 12/30/16 History cloNIDine [Catapres] 0.1 mg PO BID 04/28/13 12/31/16 12/30/16 History Budesoni/Formotero 160-4.5(Nf) 2 puff IH BID 11/01/13 12/31/16 12/30/16 History [Symbicort 160-4.5 (Nf)] Colchicine [Colcrys] 0.6 mg PO DAILY 11/01/13 12/31/16 12/30/16 History Montelukast [Singulair] 10 mg PO QPM 08/02/15 12/31/16 12/30/16 History ALBUTEROL Inhaler [ProAir HFA 2 puff IH QID PRN #1 inhalation 04/08/16 12/31/16 12/30/16 Rx Inhaler] Allopurinol [Zyloprim] 100 mg PO QDAY 09/05/16 12/31/16 12/30/16 History amLODIPine [Norvasc] 10 mg PO DAILY 09/05/16 12/31/16 12/30/16 History Fluticasone [Flonase] 1 spray NS QDAY 12/31/16 12/31/16 12/30/16 History Furosemide [Lasix] 20 mg PO BID 12/31/16 12/31/16 12/30/16 History HYDROcodone/APAP 7.5-325 [Sublimity 1 each PO Q6HR PRN 12/31/16 12/31/16 12/30/16 History 7.5/325] Active Meds: Active Medications Acetaminophen (Tylenol) 650 mg PO Q4H PRN PRN Reason: Pain MILD(1-3)/Fever >100.5/HERRMANN Acetaminophen/Hydrocodone Bitart (Sublimity 7.5/325) 1 each PO Q6HR PRN PRN Reason: Pain Albuterol/Ipratropium (Duoneb *Not For Prn Use*) 1 ampul IH Q6HRT [facility] Last Admin: 01/01/17 14:00 Dose: 1 ampul Allopurinol (Zyloprim) 100 mg PO QDAY [facility] Last Admin: 01/01/17 10:09 Dose: 100 mg Amlodipine Besylate (Norvasc) 10 mg PO DAILY [facility] Last Admin: 01/01/17 10:08 Dose: 10 mg Apixaban (Eliquis) 10 mg PO Q12HR [facility] Stop: 01/07/17 22:01 Last Admin: 01/01/17 13:30 Dose: 10 mg Apixaban (Eliquis) 5 mg PO Q12HR [facility] Arformoterol Tartrate (Brovana Nebu) 15 mcg Q12HRT [facility] Last Admin: 01/01/17 14:00 Dose: Not Given Aspirin (Baby Aspirin) 81 mg PO QDAY [facility] Last Admin: 01/01/17 10:08 Dose: 81 mg Bisacodyl (Dulcolax) 10 mg CO QDAY PRN PRN Reason: Constipation unrelieved by MOM Budesonide (Pulmicort) 0.5 mg IH Q12HRT [facility] Last Admin: 01/01/17 14:00 Dose: 0.5 mg Clonidine HCl (Catapres) 0.1 mg PO BID [facility] Last Admin: 01/01/17 10:08 Dose: 0.1 mg Famotidine (Pepcid) 20 mg IV DAILY [facility] Last Admin: 01/01/17 09:49 Dose: 20 mg Fluticasone Propionate (Flonase) 100 mcg NS QDAY [facility] Last Admin: 01/01/17 14:21 Dose: 100 mcg Furosemide (Lasix) 20 mg PO 0600,1800 [facility] Last Admin: 01/01/17 17:41 Dose: 20 mg Sodium Chloride (Nacl 0.9% 1000 Ml) 1,000 mls @ 100 mls/hr IV DIRECT [facility] Last Admin: 01/01/17 14:20 Dose: 100 mls/hr Levofloxacin/Dextrose (Levaquin 750mg/150ml) 750 mg in 150 mls @ 100 mls/hr IV Q48HR [facility] PRN Reason: Protocol Last Admin: 01/01/17 09:48 Dose: 100 mls/hr Magnesium Hydroxide (Milk Of Magnesia) 30 ml PO Q4H PRN PRN Reason: Constipation Methylprednisolone Sodium Succinate (Solu-Medrol) 125 mg IV Q8H [facility] Last Admin: 01/01/17 18:01 Dose: 125 mg Metoprolol Tartrate (Lopressor) 50 mg PO BID [facility] Last Admin: 01/01/17 10:07 Dose: 50 mg Montelukast Sodium (Singulair) 10 mg PO QPM [facility] Last Admin: 01/01/17 17:41 Dose: 10 mg Ondansetron HCl (Zofran) 4 mg IV Q8H PRN PRN Reason: N/V unrelieved by Reglan Oxycodone/Acetaminophen (Percocet 5/325) 1 tab PO Q6H PRN PRN Reason: Pain, Moderate (4-6) Pravastatin Sodium (Pravachol) 40 mg PO QHS [facility] Zolpidem Tartrate (Ambien) 5 mg PO QHS PRN PRN Reason: Insomnia Review of Systems All systems: negative Exam - Constitutional Vitals: Temp Pulse Resp BP Pulse Ox 98.8 F 81 18 163/83 96 01/01/17 16:30 01/01/17 16:30 01/01/17 16:30 01/01/17 16:30 01/01/17 16:30 General appearance: Present: no acute distress - EENT Eyes: Present: EOM intact ENT: hearing intact - Neck Neck: Present: supple - Respiratory Respiratory effort: other (patient presently on oxygen supplementation and CPAP) - Extremities Extremities: no ischemia, normal temperature - Psychiatric Psychiatric: appropriate mood/affect, intact judgment & insight, cooperative - Neurologic Neurologic: no focal deficits Results - Labs CBC & Chem 7: 12/31/16 08:45 12/31/16 08:45 Labs: Abnormal lab results 01/01/17 01/01/17 01/01/17 Range/Units 05:25 08:06 16:47 Heparin Anti-Xa Level 0.15 L 0.22 L > 2.00 H (0.3-0.7) U.I./ml Assessment and Plan Patient presented with progressive shortness of breath. Patient with acute renal failure, and therefore a CT scan was not ordered. VQ scan suggests pulmonary embolus. The patient is currently on anticoagulation. Await the results of echocardiogram. I doubt the patient will require thrombolytic therapy. We'll see again tomorrow. - Patient Problems (1) Pulmonary embolism Current Visit: Yes Status: Acute Qualifiers: Pulmonary embolism type: other Chronicity: acute Acute cor pulmonale presence: without acute cor pulmonale Qualified Code(s): I26.99 - Other pulmonary embolism without acute cor pulmonale (2) SMITA (acute kidney injury) Current Visit: Yes Status: Acute (3) ARF (acute renal failure) Current Visit: No Status: Acute Qualifiers: Acute renal failure type: A (4) CAD (coronary artery disease) Current Visit: No Status: Chronic Qualifiers: Coronary Disease-Associated Artery/Lesion type: bypass graft, other [place] vs. transplanted heart: N Associated angina: A (5) COPD (chronic obstructive pulmonary disease) Current Visit: No Status: Chronic Qualifiers: COPD type: C Chronic bronchitis type: C Emphysema type: E (6) Diabetes mellitus type 2 in nonobese Current Visit: No Status: Chronic
[2017-01-01] MEDS ORDERED: PULMICORT IH SCH (20:00)
[2017-01-01] MEDS: PRAVACHOL PO SCH (22:45)
[2017-01-02] MEDS: DUONEB *Not for PRN Use IH SCH ×4 (01:28→20:48)
[2017-01-02] MEDS: LASIX PO SCH (06:00)
[2017-01-02 08:08] LABS: Hematocrit 37.2 % (30.3-42.9); Hemoglobin 12.1 gm/dl (10.1-14.3); Mean Corpuscular HGB Conc 33 % (30-34); Mean Corpuscular Hemoglobin 28 pg (28-32); Mean Corpuscular Volume 87 fl (79-97); Platelet Count 173 K/mm3 (140-440); White Blood Count 9.7 K/mm3 (4.5-11.0)
[2017-01-02] MEDS: PULMICORT IH SCH ×2 (08:18→20:48)
[2017-01-02] MEDS: BROVANA NEBU IH SCH ×2 (08:18→20:48)
[2017-01-02 08:34] LABS: Albumin 3.5 g/dL (3.9-5); Albumin/Globulin Ratio 0.9 %; Bilirubin,Total 0.2 mg/dL (0.1-1.2); Calcium 8.9 mg/dL (8.4-10.2); Chloride 97.1 mmol/L (98-107); Total Protein 7.2 g/dL (6.3-8.2)
--- NOTE | 2017-01-02 09:25 | Progress Note ---
Assessment and Plan 1. Acute kidney injury: SMITA superimposed on CKD stage 3 in the setting of volume depletion. Renal function is improving. Continue IV fluids. Hemodynamically stable. 2. Acute PE. 3. COPD exacerbation. Subjective Date of service: 01/02/17 Interval history: Patient is feeling better today. Objective - Vital Signs Vital signs: Vital Signs - 12hr 01/01/17 01/01/17 01/02/17 22:00 22:45 00:21 Temperature 98.8 F Pulse Rate 67 65 Pulse Rate [ Anterior Bilateral Throughout] Respiratory 22 23 Rate Respiratory Rate [Anterior Bilateral Throughout] Blood Pressure 131/78 150/67 Blood Pressure [Right] O2 Sat by Pulse 100 100 Oximetry 01/02/17 01/02/17 01/02/17 01:00 01:37 04:00 Temperature Pulse Rate 85 65 Pulse Rate [ 84 Anterior Bilateral Throughout] Respiratory 23 Rate Respiratory 18 Rate [Anterior Bilateral Throughout] Blood Pressure 150/67 Blood Pressure [Right] O2 Sat by Pulse 100 Oximetry 01/02/17 01/02/17 01/02/17 05:17 06:02 07:45 Temperature 98.7 F 98.7 F 98.9 F Pulse Rate 87 85 85 Pulse Rate [ Anterior Bilateral Throughout] Respiratory 18 20 18 Rate Respiratory Rate [Anterior Bilateral Throughout] Blood Pressure 148/81 133/77 Blood Pressure 148/81 [Right] O2 Sat by Pulse 100 100 Oximetry - General Appearance General appearance: well-developed, appears stated age, other (thin built, no acute distress) EENT: ATNC, PERRL, hearing intact, vision intact Neck: supple Respiratory: Present: Clear to Ascultation Cardiology: regular, S1S2, no murmurs Gastrointestinal: normoactive bowel sounds, no tenderness, no distended Integumentary: no rash, warm and dry Neurologic: no focal deficit, no asterixis, alert and oriented x3 Musculoskeletal: other (no edema) Psychiatric: mood/affect appropriate, cooperative - Lab 01/02/17 07:14 01/02/17 07:14 Most recent lab results Calcium 8.9 mg/dL (8.4-10.2) 01/02/17 07:14 Magnesium 2.90 mg/dL (1.7-2.3) H 12/31/16 08:45
[2017-01-02 09:27] LABS: Anisocytosis 1+; Basophils % (Manual) 0 % (0.0-1.8); Blastocytes % (Manual) 0 %; Diff Status Complete; Eosinophils % (Manual) 0 % (0.0-4.3); Ovalocytes 1+
[2017-01-02] MEDS: FLONASE NS SCH (09:32)
[2017-01-02] MEDS: PEPCID IV SCH (09:32)
[2017-01-02] MEDS: CATAPRES PO SCH ×2 (09:33→22:10)
[2017-01-02] MEDS: ELIQUIS PO SCH ×2 (09:33→22:10)
[2017-01-02] MEDS: BABY ASPIRIN PO SCH (09:33)
[2017-01-02] MEDS: NORVASC PO SCH (09:33)
[2017-01-02] MEDS: PERCOCET 5/325 PO PRN ×2 (09:34→17:39)
[2017-01-02] MEDS: LOPRESSOR PO SCH ×2 (09:38→22:10)
[2017-01-02] MEDS: ZYLOPRIM PO SCH (09:38)
--- NOTE | 2017-01-02 11:22 | Progress Note ---
Assessment and Plan Pt presented with progressive SOB. VQ was ordered (instead of CTA given ARF). VQ suggest high probability of PE. Pt was started on anticoagulation. The reliability of VQ with underlying chronic lung dz can be compromised. Would consider Echo if concerned about Right heart strain. If present then could consider further work up (including CT angiography) to determine if thrombolysis would be of benefit. Will check lower ext venous duplex to eval for dvt. Pt c/o pain in lower ext discomfort, including muscle cramping. Will check lower ext arterial duplex as well. - Patient Problems (1) Pulmonary embolism Current Visit: Yes Status: Acute Qualifiers: Pulmonary embolism type: other Chronicity: acute Acute cor pulmonale presence: without acute cor pulmonale Qualified Code(s): I26.99 - Other pulmonary embolism without acute cor pulmonale (2) SMITA (acute kidney injury) Current Visit: Yes Status: Acute (3) ARF (acute renal failure) Current Visit: No Status: Acute (4) CAD (coronary artery disease) Current Visit: No Status: Chronic Qualifiers: Coronary Disease-Associated Artery/Lesion type: bypass graft, other (5) COPD (chronic obstructive pulmonary disease) Current Visit: No Status: Chronic (6) Diabetes mellitus type 2 in nonobese Current Visit: No Status: Chronic Subjective Date of service: 01/02/17 Interval history: Pt awake and alert. She feels a little better today. Objective - Constitutional Vitals: Vital Signs - 12hr 01/02/17 01/02/17 01/02/17 00:21 01:00 01:37 Temperature 98.8 F Pulse Rate 65 85 Pulse Rate [ 84 Anterior Bilateral Throughout] Respiratory 23 Rate Respiratory 18 Rate [Anterior Bilateral Throughout] Blood Pressure 150/67 Blood Pressure [Right] O2 Sat by Pulse 100 Oximetry 01/02/17 01/02/17 01/02/17 04:00 05:17 06:02 Temperature 98.7 F 98.7 F Pulse Rate 65 87 85 Pulse Rate [ Anterior Bilateral Throughout] Respiratory 23 18 20 Rate Respiratory Rate [Anterior Bilateral Throughout] Blood Pressure 150/67 148/81 Blood Pressure 148/81 [Right] O2 Sat by Pulse 100 100 Oximetry 01/02/17 01/02/17 01/02/17 07:45 08:18 09:33 Temperature 98.9 F Pulse Rate 85 84 Pulse Rate [ 66 Anterior Bilateral Throughout] Respiratory 18 Rate Respiratory 20 Rate [Anterior Bilateral Throughout] Blood Pressure 133/77 133/77 Blood Pressure [Right] O2 Sat by Pulse 100 100 Oximetry General appearance: Present: no acute distress - EENT Eyes: EOM intact ENT: hearing intact - Respiratory Respiratory effort: normal (unlabored at rest with oxygen supplementation.) Extremities: No edema, normal temperature - Neurologic Neurologic: no focal deficits - Psychiatric Psychiatric: appropriate mood/affect, intact judgment & insight, cooperative - Labs CBC & Chem 7: 01/02/17 07:14 01/02/17 07:14 Labs: Abnormal lab results 01/01/17 01/02/17 01/02/17 Range/Units 16:47 07:14 07:14 RDW 16.0 H (13.2-15.2) % Seg Neuts % (Manual) 91.0 H (40.0-70.0) % Lymphocytes % (Manual) 8.0 L (13.4-35.0) % Seg Neutrophils # Man 8.8 H (1.8-7.7) K/mm3 Lymphocytes # (Manual) 0.8 L (1.2-5.4) K/mm3 Heparin Anti-Xa Level > 2.00 H (0.3-0.7) U.I./ml Chloride 97.1 L (98-107) mmol/L BUN 25 H (7-17) mg/dL Creatinine 1.3 H (0.7-1.2) mg/dL Glucose 156 H (65-100) mg/dL Albumin 3.5 L (3.9-5) g/dL
--- NOTE | 2017-01-02 11:55 | Ultrasound Report ---
ULTRASOUND RENAL INDICATION: Acute renal failure. COMPARISON: None similar. FINDINGS: Renal sonography suggests borderline/slight increased renal cortical echogenicity somewhat difficult to appreciate on the right secondary to echogenic imaged liver. Grossly preserved contours. No hydronephrosis. RIGHT KIDNEY measures 9 x 3.7 x 4.3 cm with cortical thickness of 0.9 cm. A 1.7 cm right lower renal cortical cyst with few level intrinsic echoes, images 7-11. Approximately 1 cm similar right upper renal cortical cyst also seen, image 15. LEFT KIDNEY estimated at 8.4 x 3.1 x 3 cm with cortical thickness of 0.9 cm. URINARY BLADDER region obscured due to artifact, inadequately assessed. CONCLUSION: Right renal cysts, mild underlying medical renal disease and fatty liver possible sonographically without acute renal abnormality. Please correlate. Thank you for the opportunity to participate in this patient's care.
--- NOTE | 2017-01-02 12:19 | Event Note ---
Date: 01/02/17 Came to see Patient, but she is currently out on test. Echocardiogram pending. We'll see later on went available.
--- NOTE | 2017-01-02 12:42 | Progress Note ---
Assessment and Plan Assessment and plan: (1) Acute pulmonary embolism Patient initiated on IV Heparin and Xarelto. Echocardiogram pending. Doppler ultrasound of lower extremities negative. IR consulted (2) COPD exacerbation Continue on Neb tx, IV solumedrol and Levaquin. Oxygen support via nasal cannula or mask to maintain oximetry over 92% pulm consulted (3) SMITA (acute kidney injury) IV fluids for now (4) HTN (hypertension) Cont Metoprolol and Clonidine (5) HLD (hyperlipidemia) Cont Simvastatin (6) Gout Cont Allopurinol (7) Asthma Cont Singulair (8) DVT prophylaxis On Heparin and Xarelto History Interval history: No new issues overnight. Hospitalist Physical - Constitutional Vitals: Temp Pulse Resp BP Pulse Ox 98.9 F 84 20 133/77 100 01/02/17 07:45 01/02/17 09:33 01/02/17 08:28 01/02/17 09:33 01/02/17 10:00 General appearance: Present: no acute distress - EENT Eyes: Present: PERRL, EOM intact ENT: hearing intact, clear oral mucosa, dentition normal - Neck Neck: Present: supple, normal ROM - Respiratory Respiratory effort: normal Respiratory: bilateral: CTA - Cardiovascular Rhythm: regular Heart Sounds: Present: S1 & S2. Absent: gallop, rub - Extremities Extremities: no ischemia, No edema, Full ROM - Abdominal General gastrointestinal: soft, non-tender, non-distended, normal bowel sounds - Integumentary Integumentary: Present: clear, warm, dry - Neurologic Neurologic: CNII-XII intact, moves all extremities Results - Labs CBC & Chem 7: 01/02/17 07:14 01/02/17 07:14 Labs: Laboratory Last Values WBC 9.7 K/mm3 (4.5-11.0) 01/02/17 07:14 RBC 4.30 M/mm3 (3.65-5.03) 01/02/17 07:14 Hgb 12.1 gm/dl (10.1-14.3) 01/02/17 07:14 Hct 37.2 % (30.3-42.9) 01/02/17 07:14 MCV 87 fl (79-97) 01/02/17 07:14 MCH 28 pg (28-32) 01/02/17 07:14 MCHC 33 % (30-34) 01/02/17 07:14 RDW 16.0 % (13.2-15.2) H 01/02/17 07:14 Plt Count 173 K/mm3 (140-440) 01/02/17 07:14 Lymph % (Auto) 18.9 % (13.4-35.0) 12/31/16 08:45 Real % (Auto) 14.3 % (0.0-7.3) H 12/31/16 08:45 Eos % (Auto) 2.0 % (0.0-4.3) 12/31/16 08:45 Baso % (Auto) 0.5 % (0.0-1.8) 12/31/16 08:45 Lymph # 1.3 K/mm3 (1.2-5.4) 12/31/16 08:45 Real # 1.0 K/mm3 (0.0-0.8) H 12/31/16 08:45 Eos # 0.1 K/mm3 (0.0-0.4) 12/31/16 08:45 Baso # 0.0 K/mm3 (0.0-0.1) 12/31/16 08:45 Add Manual Diff Complete 01/02/17 07:14 Total Counted 100 01/02/17 07:14 Seg Neutrophils % 64.3 % (40.0-70.0) 12/31/16 08:45 Seg Neuts % (Manual) 91.0 % (40.0-70.0) H 01/02/17 07:14 Band Neutrophils % 0 % 01/02/17 07:14 Lymphocytes % (Manual) 8.0 % (13.4-35.0) L 01/02/17 07:14 Reactive Lymphs % (Man) 0 % 01/02/17 07:14 Monocytes % (Manual) 1.0 % (0.0-7.3) 01/02/17 07:14 Eosinophils % (Manual) 0 % (0.0-4.3) 01/02/17 07:14 Basophils % (Manual) 0 % (0.0-1.8) 01/02/17 07:14 Metamyelocytes % 0 % 01/02/17 07:14 Myelocytes % 0 % 01/02/17 07:14 Promyelocytes % 0 % 01/02/17 07:14 Blast Cells % 0 % 01/02/17 07:14 Nucleated RBC % Not Reportable 01/02/17 07:14 Seg Neutrophils # 4.5 K/mm3 (1.8-7.7) 12/31/16 08:45 Seg Neutrophils # Man 8.8 K/mm3 (1.8-7.7) H 01/02/17 07:14 Band Neutrophils # 0.0 K/mm3 01/02/17 07:14 Lymphocytes # (Manual) 0.8 K/mm3 (1.2-5.4) L 01/02/17 07:14 Abs React Lymphs (Man) 0.0 K/mm3 01/02/17 07:14 Monocytes # (Manual) 0.1 K/mm3 (0.0-0.8) 01/02/17 07:14 Eosinophils # (Manual) 0.0 K/mm3 (0.0-0.4) 01/02/17 07:14 Basophils # (Manual) 0.0 K/mm3 (0.0-0.1) 01/02/17 07:14 Metamyelocytes # 0.0 K/mm3 01/02/17 07:14 Myelocytes # 0.0 K/mm3 01/02/17 07:14 Promyelocytes # 0.0 K/mm3 01/02/17 07:14 Blast Cells # 0.0 K/mm3 01/02/17 07:14 WBC Morphology Not Reportable 01/02/17 07:14 Hypersegmented Neuts Not Reportable 01/02/17 07:14 Hyposegmented Neuts Not Reportable 01/02/17 07:14 Hypogranular Neuts Not Reportable 01/02/17 07:14 Smudge Cells Not Reportable 01/02/17 07:14 Toxic Granulation Not Reportable 01/02/17 07:14 Toxic Vacuolation Not Reportable 01/02/17 07:14 Dohle Bodies Not Reportable 01/02/17 07:14 Pelger-Huet Anomaly Not Reportable 01/02/17 07:14 Ariel Rods Not Reportable 01/02/17 07:14 Platelet Estimate Appears normal 01/02/17 07:14 Clumped Platelets Not Reportable 01/02/17 07:14 Plt Clumps, EDTA Not Reportable 01/02/17 07:14 Large Platelets Not Reportable 01/02/17 07:14 Giant Platelets Not Reportable 01/02/17 07:14 Platelet Satelliting Not Reportable 01/02/17 07:14 Plt Morphology Comment Not Reportable 01/02/17 07:14 RBC Morphology Not Reportable 01/02/17 07:14 Dimorphic RBCs Not Reportable 01/02/17 07:14 Polychromasia Not Reportable 01/02/17 07:14 Hypochromasia Not Reportable 01/02/17 07:14 Poikilocytosis Not Reportable 01/02/17 07:14 Anisocytosis 1+ 01/02/17 07:14 Microcytosis Not Reportable 01/02/17 07:14 Macrocytosis Not Reportable 01/02/17 07:14 Spherocytes Not Reportable 01/02/17 07:14 Pappenheimer Bodies Not Reportable 01/02/17 07:14 Sickle Cells Not Reportable 01/02/17 07:14 Target Cells Not Reportable 01/02/17 07:14 Tear Drop Cells Not Reportable 01/02/17 07:14 Ovalocytes 1+ 01/02/17 07:14 Helmet Cells Not Reportable 01/02/17 07:14 [place] Bodies Not Reportable 01/02/17 07:14 [place] Rings Not Reportable 01/02/17 07:14 [place] Cells Not Reportable 01/02/17 07:14 Bite Cells Not Reportable 01/02/17 07:14 Crenated Cell Not Reportable 01/02/17 07:14 Elliptocytes Not Reportable 01/02/17 07:14 Acanthocytes (Spur) Not Reportable 01/02/17 07:14 Rouleaux Not Reportable 01/02/17 07:14 Hemoglobin C Crystals Not Reportable 01/02/17 07:14 Schistocytes Not Reportable 01/02/17 07:14 Malaria parasites Not Reportable 01/02/17 07:14 [place] Bodies Not Reportable 01/02/17 07:14 Hem Pathologist Commnt No 01/02/17 07:14 PT 13.7 Sec. (12.2-14.9) 12/31/16 12:12 INR 1.00 (0.87-1.13) 12/31/16 12:12 APTT 30.2 Sec. (24.2-36.6) 12/31/16 12:12 D-Dimer 2527.54 ng/mlDDU (0-234) H 12/31/16 08:45 Heparin Anti-Xa Level > 2.00 U.I./ml (0.3-0.7) H 01/01/17 16:47 Sodium 137 mmol/L (137-145) 01/02/17 07:14 Potassium 4.0 mmol/L (3.6-5.0) 01/02/17 07:14 Chloride 97.1 mmol/L (98-107) L 01/02/17 07:14 Carbon Dioxide 24 mmol/L (22-30) 01/02/17 07:14 Anion Gap 20 mmol/L 01/02/17 07:14 BUN 25 mg/dL (7-17) H 01/02/17 07:14 Creatinine 1.3 mg/dL (0.7-1.2) H 01/02/17 07:14 Estimated GFR 48 ml/min 01/02/17 07:14 BUN/Creatinine Ratio 19 % 01/02/17 07:14 Glucose 156 mg/dL (65-100) H 01/02/17 07:14 Calcium 8.9 mg/dL (8.4-10.2) 01/02/17 07:14 Magnesium 2.90 mg/dL (1.7-2.3) H 12/31/16 08:45 Total Bilirubin 0.20 mg/dL (0.1-1.2) 01/02/17 07:14 AST 20 units/L (5-40) 01/02/17 07:14 ALT 18 units/L (7-56) 01/02/17 07:14 Alkaline Phosphatase 100 units/L (35-129) 01/02/17 07:14 Troponin T < 0.010 ng/mL (0.00-0.029) 12/31/16 08:45 NT-Pro-B Natriuret Pep 909.2 pg/mL (0-900) H 12/31/16 08:54 Total Protein 7.2 g/dL (6.3-8.2) 01/02/17 07:14 Albumin 3.5 g/dL (3.9-5) L 01/02/17 07:14 Albumin/Globulin Ratio 0.9 % 01/02/17 07:14 Urine Color Straw (Yellow) 12/31/16 11:15 Urine Turbidity Clear (Clear) 12/31/16 11:15 Urine pH 7.0 (5.0-7.0) 12/31/16 11:15 Ur Specific [place] 1.013 (1.003-1.030) 12/31/16 11:15 Urine Protein <15 mg/dl mg/dL (Negative) 12/31/16 11:15 Urine Glucose (UA) Neg mg/dL (Negative) 12/31/16 11:15 Urine Ketones Neg mg/dL (Negative) 12/31/16 11:15 Urine Blood Neg (Negative) 12/31/16 11:15 Urine Nitrite Neg (Negative) 12/31/16 11:15 Urine Bilirubin Neg (Negative) 12/31/16 11:15 Urine Urobilinogen < 2.0 mg/dL (<2.0) 12/31/16 11:15 Ur Leukocyte Esterase Sm (Negative) 12/31/16 11:15 Urine WBC (Auto) < 1.0 /HPF (0.0-6.0) 12/31/16 11:15 Urine RBC (Auto) 1.0 /HPF (0.0-6.0) 12/31/16 11:15 U Epithel Cells (Auto) < 1.0 /HPF (0-13.0) 12/31/16 11:15
--- NOTE | 2017-01-02 15:12 | Query- Renal Failure ---
Dear ___Manav Date: 01/02/17 Medicaid Specialist/CDS:___Jaya Phone#:[phone] Exercise your independent professional judgment when responding to query. Questions asked do not imply a particular answer is desired or expected. We greatly appreciate your clarification on this issue. Clinical Documentation States: 76 year old female was admitted on 12/31/16. The H&P (Dr. Milan) states " This is a 76-year-old -[place] female who presents to the emergency department by EMS from home with complaint of difficulty breathing since waking up this morning. " The Nephrology progress note (Dr. Friedman 01/02/17) states " Assessment and Plan : 1. Acute kidney injury: SMITA superimposed on CKD stage 3 in the setting of volume depletion. Renal function is improving. Continue IV fluids. Hemodynamically stable. " The Progress note (Dr. Em 01/02/17) states " (3) SMITA (acute kidney injury) IV fluids for now " Clinical Findings Show: 12/31/16 01/02/17 Creatinine: 1.8 1.3 Please clarify if you mean: Acute Renal Failure with or due to: [ ] Tubular Necrosis [ ] Medullary Necrosis [ x] Vasomotor Nephropathy [ ] Shock Kidney [ ] Tubular Nephrosis [ ] Renal Tubular Stasis [ ] Cortical Necrosis [ ] Acute Renal Failure (unspecified) [ ] Lower Tubular Nephrosis [ ] Other: [ ] Not Applicable Present on Admission: [ x] Yes (Y) [ ] Clinically undeterminable (W) [ ] No (N) Please also document response in your Progress Notes and/or Discharge Summary and indicate if the condition was present on admission. MTDD
[2017-01-02] MEDS: SINGULAIR PO SCH (17:39)
[2017-01-02] MEDS: PRAVACHOL PO SCH (22:05)
[2017-01-03] MEDS: DUONEB *Not for PRN Use IH SCH ×4 (02:54→21:42)
[2017-01-03 06:30] LABS: Basophils % (Auto) 0.1 % (0.0-1.8); Hematocrit 38.2 % (30.3-42.9); Hemoglobin 12.2 gm/dl (10.1-14.3); Mean Corpuscular HGB Conc 32 % (30-34); Mean Corpuscular Hemoglobin 27 pg (28-32); Mean Corpuscular Volume 85 fl (79-97); Platelet Count 176 K/mm3 (140-440); Red Blood Count 4.48 M/mm3 (3.65-5.03); Red Cell Distribution Width 15.6 % (13.2-15.2); White Blood Count 9.1 K/mm3 (4.5-11.0)
[2017-01-03 07:17] LABS: Calcium 8.5 mg/dL (8.4-10.2); Chloride 95.7 mmol/L (98-107); Potassium 4.2 mmol/L (3.6-5.0)
[2017-01-03] MEDS: PULMICORT IH SCH ×2 (07:31→21:28)
[2017-01-03] MEDS: BROVANA NEBU IH SCH ×2 (07:31→21:28)
--- NOTE | 2017-01-03 09:04 | Progress Note ---
Assessment and Plan 1. Acute kidney injury: SMITA superimposed on CKD stage 3 in the setting of volume depletion. Renal function is overall better. Continue IV fluids. Advised to increase fluid intake. Hemodynamically stable. 2. Acute PE. 3. COPD exacerbation. Will follow. Pateint was advised to follow with us in 1-2 weeks. Subjective Date of service: 01/03/17 Interval history: Patient is feeling better. Objective - Vital Signs Vital signs: Vital Signs - 12hr 01/02/17 01/03/17 01/03/17 22:10 00:38 02:43 Temperature 98.3 F Pulse Rate 78 75 Pulse Rate [ Anterior Bilateral Throughout] Respiratory 20 20 Rate Respiratory Rate [Anterior Bilateral Throughout] Blood Pressure 144/91 134/68 O2 Sat by Pulse 98 100 Oximetry 01/03/17 01/03/17 01/03/17 02:55 05:00 05:23 Temperature 98.0 F Pulse Rate 75 72 Pulse Rate [ 72 Anterior Bilateral Throughout] Respiratory 19 Rate Respiratory 18 Rate [Anterior Bilateral Throughout] Blood Pressure 135/79 O2 Sat by Pulse 97 Oximetry 01/03/17 01/03/17 01/03/17 06:25 07:24 07:52 Temperature Pulse Rate Pulse Rate [ 80 89 92 H Anterior Bilateral Throughout] Respiratory Rate Respiratory 18 20 20 Rate [Anterior Bilateral Throughout] Blood Pressure O2 Sat by Pulse 100 Oximetry - General Appearance General appearance: well-developed, appears stated age, other (no distress) EENT: ATNC, PERRL, hearing intact, vision intact Neck: supple Respiratory: Present: Clear to Ascultation Cardiology: regular, S1S2, no murmurs Gastrointestinal: normoactive bowel sounds, no tenderness Integumentary: no rash, warm and dry Neurologic: no focal deficit, no asterixis, alert and oriented x3 Musculoskeletal: other (no edema) Psychiatric: mood/affect appropriate, cooperative - Lab 01/03/17 05:16 01/03/17 05:16 Most recent lab results Calcium 8.5 mg/dL (8.4-10.2) 01/03/17 05:16 Magnesium 2.90 mg/dL (1.7-2.3) H 12/31/16 08:45
[2017-01-03] MEDS: FLONASE NS SCH (11:54)
[2017-01-03] MEDS: LEVAQUIN PO SCH (11:54)
[2017-01-03] MEDS: BABY ASPIRIN PO SCH (11:55)
[2017-01-03] MEDS: ZYLOPRIM PO SCH (11:56)
[2017-01-03] MEDS: PEPCID PO SCH (11:57)
[2017-01-03] MEDS: ELIQUIS PO SCH ×2 (11:57→21:35)
[2017-01-03] MEDS: CATAPRES PO SCH ×2 (12:24→21:40)
[2017-01-03] MEDS: LOPRESSOR PO SCH ×2 (12:25→21:33)
[2017-01-03] MEDS: NORVASC PO SCH (12:25)
--- NOTE | 2017-01-03 12:30 | Progress Note ---
Assessment and Plan Assessment and plan: (1) Acute pulmonary embolism Patient initiated on IV Heparin and Xarelto. Echocardiogram pending. Doppler ultrasound of lower extremities negative. IR consulted (2) COPD exacerbation Continue on Neb tx, IV solumedrol and Levaquin. Oxygen support via nasal cannula or mask to maintain oximetry over 92% pulm consulted (3) SMITA (acute kidney injury) IV fluids for now (4) HTN (hypertension) Cont Metoprolol and Clonidine (5) HLD (hyperlipidemia) Cont Simvastatin (6) Gout Cont Allopurinol (7) Asthma Cont Singulair (8) DVT prophylaxis On Heparin and Xarelto History Interval history: No new issues overnight. Hospitalist Physical - Constitutional Vitals: Temp Pulse Resp BP Pulse Ox 98.2 F 80 18 147/78 100 01/03/17 08:25 01/03/17 12:25 01/03/17 08:25 01/03/17 12:25 01/03/17 08:26 General appearance: Present: no acute distress - EENT Eyes: Present: PERRL, EOM intact ENT: hearing intact, clear oral mucosa, dentition normal - Neck Neck: Present: supple, normal ROM - Respiratory Respiratory effort: normal Respiratory: bilateral: CTA - Cardiovascular Rhythm: regular Heart Sounds: Present: S1 & S2. Absent: gallop, rub - Extremities Extremities: no ischemia, No edema, Full ROM - Abdominal General gastrointestinal: soft, non-tender, non-distended, normal bowel sounds - Integumentary Integumentary: Present: clear, warm, dry - Neurologic Neurologic: CNII-XII intact, moves all extremities Results - Labs CBC & Chem 7: 01/03/17 05:16 01/03/17 05:16 Labs: Laboratory Last Values WBC 9.1 K/mm3 (4.5-11.0) 01/03/17 05:16 RBC 4.48 M/mm3 (3.65-5.03) 01/03/17 05:16 Hgb 12.2 gm/dl (10.1-14.3) 01/03/17 05:16 Hct 38.2 % (30.3-42.9) 01/03/17 05:16 MCV 85 fl (79-97) 01/03/17 05:16 MCH 27 pg (28-32) L 01/03/17 05:16 MCHC 32 % (30-34) 01/03/17 05:16 RDW 15.6 % (13.2-15.2) H 01/03/17 05:16 Plt Count 176 K/mm3 (140-440) 01/03/17 05:16 Lymph % (Auto) 6.6 % (13.4-35.0) L 01/03/17 05:16 [place] % (Auto) 3.4 % (0.0-7.3) 01/03/17 05:16 Eos % (Auto) 0.0 % (0.0-4.3) 01/03/17 05:16 Baso % (Auto) 0.1 % (0.0-1.8) 01/03/17 05:16 Lymph # 0.6 K/mm3 (1.2-5.4) L 01/03/17 05:16 [place] # 0.3 K/mm3 (0.0-0.8) 01/03/17 05:16 Eos # 0.0 K/mm3 (0.0-0.4) 01/03/17 05:16 Baso # 0.0 K/mm3 (0.0-0.1) 01/03/17 05:16 Add Manual Diff Complete 01/02/17 07:14 Total Counted 100 01/02/17 07:14 Seg Neutrophils % 89.9 % (40.0-70.0) H 01/03/17 05:16 Seg Neuts % (Manual) 91.0 % (40.0-70.0) H 01/02/17 07:14 Band Neutrophils % 0 % 01/02/17 07:14 Lymphocytes % (Manual) 8.0 % (13.4-35.0) L 01/02/17 07:14 Reactive Lymphs % (Man) 0 % 01/02/17 07:14 Monocytes % (Manual) 1.0 % (0.0-7.3) 01/02/17 07:14 Eosinophils % (Manual) 0 % (0.0-4.3) 01/02/17 07:14 Basophils % (Manual) 0 % (0.0-1.8) 01/02/17 07:14 Metamyelocytes % 0 % 01/02/17 07:14 Myelocytes % 0 % 01/02/17 07:14 Promyelocytes % 0 % 01/02/17 07:14 Blast Cells % 0 % 01/02/17 07:14 Nucleated RBC % Not Reportable 01/02/17 07:14 Seg Neutrophils # 8.2 K/mm3 (1.8-7.7) H 01/03/17 05:16 Seg Neutrophils # Man 8.8 K/mm3 (1.8-7.7) H 01/02/17 07:14 Band Neutrophils # 0.0 K/mm3 01/02/17 07:14 Lymphocytes # (Manual) 0.8 K/mm3 (1.2-5.4) L 01/02/17 07:14 Abs React Lymphs (Man) 0.0 K/mm3 01/02/17 07:14 Monocytes # (Manual) 0.1 K/mm3 (0.0-0.8) 01/02/17 07:14 Eosinophils # (Manual) 0.0 K/mm3 (0.0-0.4) 01/02/17 07:14 Basophils # (Manual) 0.0 K/mm3 (0.0-0.1) 01/02/17 07:14 Metamyelocytes # 0.0 K/mm3 01/02/17 07:14 Myelocytes # 0.0 K/mm3 01/02/17 07:14 Promyelocytes # 0.0 K/mm3 01/02/17 07:14 Blast Cells # 0.0 K/mm3 01/02/17 07:14 WBC Morphology Not Reportable 01/02/17 07:14 Hypersegmented Neuts Not Reportable 01/02/17 07:14 Hyposegmented Neuts Not Reportable 01/02/17 07:14 Hypogranular Neuts Not Reportable 01/02/17 07:14 Smudge Cells Not Reportable 01/02/17 07:14 Toxic Granulation Not Reportable 01/02/17 07:14 Toxic Vacuolation Not Reportable 01/02/17 07:14 Dohle Bodies Not Reportable 01/02/17 07:14 Pel[place]-Huet Anomaly Not Reportable 01/02/17 07:14 Ariel Rods Not Reportable 01/02/17 07:14 Platelet Estimate Appears normal 01/02/17 07:14 Clumped Platelets Not Reportable 01/02/17 07:14 Plt Clumps, EDTA Not Reportable 01/02/17 07:14 Large Platelets Not Reportable 01/02/17 07:14 Giant Platelets Not Reportable 01/02/17 07:14 Platelet Satelliting Not Reportable 01/02/17 07:14 Plt Morphology Comment Not Reportable 01/02/17 07:14 RBC Morphology Not Reportable 01/02/17 07:14 Dimorphic RBCs Not Reportable 01/02/17 07:14 Polychromasia Not Reportable 01/02/17 07:14 Hypochromasia Not Reportable 01/02/17 07:14 Poikilocytosis Not Reportable 01/02/17 07:14 Anisocytosis 1+ 01/02/17 07:14 Microcytosis Not Reportable 01/02/17 07:14 Macrocytosis Not Reportable 01/02/17 07:14 Spherocytes Not Reportable 01/02/17 07:14 Pappenheimer Bodies Not Reportable 01/02/17 07:14 Sickle Cells Not Reportable 01/02/17 07:14 Target Cells Not Reportable 01/02/17 07:14 Tear Drop Cells Not Reportable 01/02/17 07:14 Ovalocytes 1+ 01/02/17 07:14 Helmet Cells Not Reportable 01/02/17 07:14 [place] Bodies Not Reportable 01/02/17 07:14 [place] Rings Not Reportable 01/02/17 07:14 [place] Cells Not Reportable 01/02/17 07:14 Bite Cells Not Reportable 01/02/17 07:14 Crenated Cell Not Reportable 01/02/17 07:14 Elliptocytes Not Reportable 01/02/17 07:14 Acanthocytes (Spur) Not Reportable 01/02/17 07:14 Rouleaux Not Reportable 01/02/17 07:14 Hemoglobin C Crystals Not Reportable 01/02/17 07:14 Schistocytes Not Reportable 01/02/17 07:14 Malaria parasites Not Reportable 01/02/17 07:14 [place] Bodies Not Reportable 01/02/17 07:14 Hem Pathologist Commnt No 01/02/17 07:14 PT 13.7 Sec. (12.2-14.9) 12/31/16 12:12 INR 1.00 (0.87-1.13) 12/31/16 12:12 APTT 30.2 Sec. (24.2-36.6) 12/31/16 12:12 D-Dimer 2527.54 ng/mlDDU (0-234) H 12/31/16 08:45 Heparin Anti-Xa Level > 2.00 U.I./ml (0.3-0.7) H 01/01/17 16:47 Sodium 141 mmol/L (137-145) 01/03/17 05:16 Potassium 4.2 mmol/L (3.6-5.0) 01/03/17 05:16 Chloride 95.7 mmol/L (98-107) L 01/03/17 05:16 Carbon Dioxide 28 mmol/L (22-30) 01/03/17 05:16 Anion Gap 22 mmol/L 01/03/17 05:16 BUN 37 mg/dL (7-17) H 01/03/17 05:16 Creatinine 1.7 mg/dL (0.7-1.2) H 01/03/17 05:16 Estimated GFR 36 ml/min 01/03/17 05:16 BUN/Creatinine Ratio 22 % 01/03/17 05:16 Glucose 152 mg/dL (65-100) H 01/03/17 05:16 Calcium 8.5 mg/dL (8.4-10.2) 01/03/17 05:16 Magnesium 2.90 mg/dL (1.7-2.3) H 12/31/16 08:45 Total Bilirubin 0.20 mg/dL (0.1-1.2) 01/02/17 07:14 AST 20 units/L (5-40) 01/02/17 07:14 ALT 18 units/L (7-56) 01/02/17 07:14 Alkaline Phosphatase 100 units/L (35-129) 01/02/17 07:14 Troponin T < 0.010 ng/mL (0.00-0.029) 12/31/16 08:45 NT-Pro-B Natriuret Pep 909.2 pg/mL (0-900) H 12/31/16 08:54 Total Protein 7.2 g/dL (6.3-8.2) 01/02/17 07:14 Albumin 3.5 g/dL (3.9-5) L 01/02/17 07:14 Albumin/Globulin Ratio 0.9 % 01/02/17 07:14 Urine Color Straw (Yellow) 12/31/16 11:15 Urine Turbidity Clear (Clear) 12/31/16 11:15 Urine pH 7.0 (5.0-7.0) 12/31/16 11:15 Ur Specific [place] 1.013 (1.003-1.030) 12/31/16 11:15 Urine Protein <15 mg/dl mg/dL (Negative) 12/31/16 11:15 Urine Glucose (UA) Neg mg/dL (Negative) 12/31/16 11:15 Urine Ketones Neg mg/dL (Negative) 12/31/16 11:15 Urine Blood Neg (Negative) 12/31/16 11:15 Urine Nitrite Neg (Negative) 12/31/16 11:15 Urine Bilirubin Neg (Negative) 12/31/16 11:15 Urine Urobilinogen < 2.0 mg/dL (<2.0) 12/31/16 11:15 Ur Leukocyte Esterase Sm (Negative) 12/31/16 11:15 Urine WBC (Auto) < 1.0 /HPF (0.0-6.0) 12/31/16 11:15 Urine RBC (Auto) 1.0 /HPF (0.0-6.0) 12/31/16 11:15 U Epithel Cells (Auto) < 1.0 /HPF (0-13.0) 12/31/16 11:15
[2017-01-03] MEDS: PERCOCET 5/325 PO PRN (12:38)
--- NOTE | 2017-01-03 13:57 | Progress Note ---
Assessment and Plan Pulmonary embolism. Hemodynamically stable at this time. High BNP COPD with exacerbation Dyspnea secondary to the above. Past medical history of DVT Chronic kidney disease Epistaxis Recommendations Continue nebs Can transition to Breo or Symbicort at . Oxygen support via nasal cannula or mask to maintain oximetry over 92% Continue to progress to OAC as tolerated.Monitor epistaxis, may need to adjust to 2.5 mg BID in the meantime and based on creat, Creat Cl. Check Echo results Subjective Date of service: 01/03/17 Interval history: Some nose bleeds,cough. Nose bleed an old problem. Otherwise fine. Objective Vital Signs - 12hr 01/03/17 01/03/17 01/03/17 02:43 02:55 05:00 Temperature Pulse Rate 75 Pulse Rate [ 72 Anterior Bilateral Throughout] Respiratory 20 Rate Respiratory 18 Rate [Anterior Bilateral Throughout] Blood Pressure O2 Sat by Pulse 100 Oximetry 01/03/17 01/03/17 01/03/17 05:23 06:25 07:24 Temperature 98.0 F Pulse Rate 72 Pulse Rate [ 80 89 Anterior Bilateral Throughout] Respiratory 19 Rate Respiratory 18 20 Rate [Anterior Bilateral Throughout] Blood Pressure 135/79 O2 Sat by Pulse 97 100 Oximetry 01/03/17 01/03/17 01/03/17 07:52 08:25 08:26 Temperature 98.2 F Pulse Rate 78 72 Pulse Rate [ 92 H Anterior Bilateral Throughout] Respiratory 18 Rate Respiratory 20 Rate [Anterior Bilateral Throughout] Blood Pressure 136/89 O2 Sat by Pulse 100 100 Oximetry 01/03/17 01/03/17 01/03/17 12:24 12:25 12:38 Temperature Pulse Rate 80 80 Pulse Rate [ Anterior Bilateral Throughout] Respiratory 21 Rate Respiratory Rate [Anterior Bilateral Throughout] Blood Pressure 147/78 147/78 O2 Sat by Pulse Oximetry 01/03/17 01/03/17 13:36 13:38 Temperature Pulse Rate Pulse Rate [ 80 Anterior Bilateral Throughout] Respiratory Rate Respiratory 20 Rate [Anterior Bilateral Throughout] Blood Pressure O2 Sat by Pulse 100 Oximetry Constitutional: no acute distress Eyes: non-icteric ENT: oropharynx moist, epistaxis Neck: supple, no lymphadenopathy, no JVD Ascultation: Bilateral: clear, diminished breath sounds Cardiovascular: regular rate and rhythm Gastrointestinal: normoactive bowel sounds, non-distended Integumentary: normal Extremities: no cyanosis, no edema, other (yaya's is negative) Neurologic: normal mental status, non-focal exam, CN II-XII normal, motor strength normal and CBC and BMP: 01/03/17 05:16 01/03/17 05:16 ABG, PT/INR, D-dimer: PT/INR, D-dimer PT 13.7 Sec. (12.2-14.9) 12/31/16 12:12 INR 1.00 (0.87-1.13) 12/31/16 12:12 D-Dimer 2527.54 ng/mlDDU (0-234) H 12/31/16 08:45 Abnormal lab findings: Abnormal Labs 12/31/16 12/31/16 12/31/16 08:45 08:45 08:45 MCH 27 L RDW 15.9 H Lymph % (Auto) [place] % (Auto) 14.3 H Lymph # [place] # 1.0 H Seg Neutrophils % Seg Neuts % (Manual) Lymphocytes % (Manual) Seg Neutrophils # Seg Neutrophils # Man Lymphocytes # (Manual) D-Dimer 2527.54 H Heparin Anti-Xa Level Chloride BUN 35 H Creatinine 1.8 H Glucose 103 H Magnesium 2.90 H NT-Pro-B Natriuret Pep Albumin 12/31/16 12/31/16 01/01/17 08:54 17:50 05:25 MCH RDW Lymph % (Auto) [place] % (Auto) Lymph # [place] # Seg Neutrophils % Seg Neuts % (Manual) Lymphocytes % (Manual) Seg Neutrophils # Seg Neutrophils # Man Lymphocytes # (Manual) D-Dimer Heparin Anti-Xa Level 1.31 H 0.15 L Chloride BUN Creatinine Glucose Magnesium NT-Pro-B Natriuret Pep 909.2 H Albumin 01/01/17 01/01/17 01/02/17 08:06 16:47 07:14 MCH RDW 16.0 H Lymph % (Auto) [place] % (Auto) Lymph # [place] # Seg Neutrophils % Seg Neuts % (Manual) 91.0 H Lymphocytes % (Manual) 8.0 L Seg Neutrophils # Seg Neutrophils # Man 8.8 H Lymphocytes # (Manual) 0.8 L D-Dimer Heparin Anti-Xa Level 0.22 L > 2.00 H Chloride BUN Creatinine Glucose Magnesium NT-Pro-B Natriuret Pep Albumin 11/01/03/17 01/03/17 07:14 05:16 05:16 MCH 27 L RDW 15.6 H Lymph % (Auto) 6.6 L [place] % (Auto) Lymph # 0.6 L [place] # Seg Neutrophils % 89.9 H Seg Neuts % (Manual) Lymphocytes % (Manual) Seg Neutrophils # 8.2 H Seg Neutrophils # Man Lymphocytes # (Manual) D-Dimer Heparin Anti-Xa Level Chloride 97.1 L 95.7 L BUN 25 H 37 H Creatinine 1.3 H 1.7 H Glucose 156 H 152 H Magnesium NT-Pro-B Natriuret Pep Albumin 3.5 L
--- NOTE | 2017-01-03 15:32 | Progress Note ---
Assessment and Plan Echocardiogram completed. Results pending. Further recommendations based upon these findings. Venous duplex was negative for DVT. Her arterial studies did show peripheral vascular disease. No need for acute intervention, this can be addressed in our office as an outpatient once her breathing issues have resolved. - Patient Problems (1) Pulmonary embolism Current Visit: Yes Status: Acute Qualifiers: Pulmonary embolism type: other Chronicity: acute Acute cor pulmonale presence: without acute cor pulmonale Qualified Code(s): I26.99 - Other pulmonary embolism without acute cor pulmonale (2) SMITA (acute kidney injury) Current Visit: Yes Status: Acute (3) ARF (acute renal failure) Current Visit: No Status: Acute (4) CAD (coronary artery disease) Current Visit: No Status: Chronic Qualifiers: Coronary Disease-Associated Artery/Lesion type: bypass graft, other (5) COPD (chronic obstructive pulmonary disease) Current Visit: No Status: Chronic (6) Diabetes mellitus type 2 in nonobese Current Visit: No Status: Chronic Subjective Date of service: 01/03/17 Interval history: Pt awake and alert, breathing is improved. Objective - Constitutional Vitals: Vital Signs - 12hr 01/03/17 01/03/17 01/03/17 05:00 05:23 06:25 Temperature 98.0 F Pulse Rate 75 72 Pulse Rate [ 80 Anterior Bilateral Throughout] Pulse Rate [ Posterior Right Throughout] Respiratory 19 Rate Respiratory 18 Rate [Anterior Bilateral Throughout] Respiratory Rate [Posterior Right Throughout] Blood Pressure 135/79 O2 Sat by Pulse 97 Oximetry 01/03/17 01/03/17 01/03/17 07:24 07:52 08:25 Temperature 98.2 F Pulse Rate 78 Pulse Rate [ 89 92 H Anterior Bilateral Throughout] Pulse Rate [ Posterior Right Throughout] Respiratory 18 Rate Respiratory 20 20 Rate [Anterior Bilateral Throughout] Respiratory Rate [Posterior Right Throughout] Blood Pressure 136/89 O2 Sat by Pulse 100 100 Oximetry 01/03/17 01/03/17 01/03/17 08:26 12:24 12:25 Temperature Pulse Rate 72 80 80 Pulse Rate [ Anterior Bilateral Throughout] Pulse Rate [ Posterior Right Throughout] Respiratory Rate Respiratory Rate [Anterior Bilateral Throughout] Respiratory Rate [Posterior Right Throughout] Blood Pressure 147/78 147/78 O2 Sat by Pulse 100 Oximetry 01/03/17 01/03/17 01/03/17 12:38 13:36 13:38 Temperature Pulse Rate Pulse Rate [ 80 Anterior Bilateral Throughout] Pulse Rate [ Posterior Right Throughout] Respiratory 21 Rate Respiratory 20 Rate [Anterior Bilateral Throughout] Respiratory Rate [Posterior Right Throughout] Blood Pressure O2 Sat by Pulse 100 Oximetry 01/03/17 14:01 Temperature Pulse Rate Pulse Rate [ Anterior Bilateral Throughout] Pulse Rate [ 86 Posterior Right Throughout] Respiratory Rate Respiratory Rate [Anterior Bilateral Throughout] Respiratory 20 Rate [Posterior Right Throughout] Blood Pressure O2 Sat by Pulse Oximetry General appearance: Present: no acute distress - EENT Eyes: PERRL ENT: hearing intact - Neck Neck: supple - Respiratory Respiratory effort: normal (unlabored at rest on oxygen supplementation by NC) Extremities: no ischemia, No edema, normal temperature - Neurologic Neurologic: no focal deficits - Psychiatric Psychiatric: appropriate mood/affect, intact judgment & insight, cooperative - Labs CBC & Chem 7: 01/03/17 05:16 01/03/17 05:16 Labs: Abnormal lab results 01/03/17 01/03/17 Range/Units 05:16 05:16 MCH 27 L (28-32) pg RDW 15.6 H (13.2-15.2) % Lymph % (Auto) 6.6 L (13.4-35.0) % Lymph # 0.6 L (1.2-5.4) K/mm3 Seg Neutrophils % 89.9 H (40.0-70.0) % Seg Neutrophils # 8.2 H (1.8-7.7) K/mm3 Chloride 95.7 L (98-107) mmol/L BUN 37 H (7-17) mg/dL Creatinine 1.7 H (0.7-1.2) mg/dL Glucose 152 H (65-100) mg/dL
[2017-01-03] MEDS: ROBITUSSIN DM PO PRN (17:25)
[2017-01-03] MEDS: SINGULAIR PO SCH (17:26)
[2017-01-03] MEDS: TESSALON PERLES PO PRN (21:35)
[2017-01-03] MEDS: AMBIEN PO PRN (21:40)
[2017-01-03] MEDS: NORCO 7.5/325 PO PRN (22:53)
[2017-01-04] MEDS: DUONEB *Not for PRN Use IH SCH ×4 (02:09→20:12)
[2017-01-04] MEDS: PRAVACHOL PO SCH ×2 (05:28→22:00)
[2017-01-04] MEDS: TESSALON PERLES PO PRN ×2 (05:31→22:30)
[2017-01-04 05:35] LABS: Hematocrit 37.3 % (30.3-42.9); Hemoglobin 11.8 gm/dl (10.1-14.3)
--- NOTE | 2017-01-04 07:14 | Progress Note ---
Assessment and Plan 1. Acute kidney injury: SMITA superimposed on CKD stage 3 in the setting of volume depletion. Renal function is overall better. Creatinine level is dtable. Continue IV fluids. Advised to increase fluid intake. Hemodynamically stable. 2. Acute PE. 3. COPD exacerbation. Will follow. Subjective Date of service: 01/04/17 Interval history: Patient is feeling ok. Objective - Vital Signs Vital signs: Vital Signs - 12hr 01/03/17 01/03/17 01/03/17 21:28 21:32 21:33 Temperature Pulse Rate 88 Pulse Rate [ 83 Posterior Left Throughout] Respiratory Rate Respiratory 17 Rate [Posterior Left Throughout] Blood Pressure 114/82 Blood Pressure [Right] O2 Sat by Pulse 97 Oximetry 01/03/17 01/03/17 01/03/17 21:40 21:44 22:00 Temperature Pulse Rate 80 61 Pulse Rate [ 80 Posterior Left Throughout] Respiratory 22 Rate Respiratory 15 Rate [Posterior Left Throughout] Blood Pressure 114/82 Blood Pressure [Right] O2 Sat by Pulse 96 Oximetry 01/03/17 01/03/17 01/03/17 22:47 22:53 23:53 Temperature 99.0 F Pulse Rate 61 Pulse Rate [ Posterior Left Throughout] Respiratory 22 27 H 15 Rate Respiratory Rate [Posterior Left Throughout] Blood Pressure Blood Pressure 149/82 [Right] O2 Sat by Pulse 98 Oximetry 01/04/17 01/04/17 01/04/17 00:14 02:10 02:21 Temperature 98.3 F Pulse Rate 74 Pulse Rate [ 75 81 Posterior Left Throughout] Respiratory 22 Rate Respiratory 12 15 Rate [Posterior Left Throughout] Blood Pressure Blood Pressure 117/64 [Right] O2 Sat by Pulse 94 Oximetry 01/04/17 04:00 Temperature 98.6 F Pulse Rate 76 Pulse Rate [ Posterior Left Throughout] Respiratory 18 Rate Respiratory Rate [Posterior Left Throughout] Blood Pressure Blood Pressure 151/86 [Right] O2 Sat by Pulse Oximetry - General Appearance General appearance: well-developed, appears stated age, other (no distress) EENT: ATNC, PERRL, hearing intact, vision intact Neck: supple Respiratory: Present: Clear to Ascultation, Decreased Breath Sounds Cardiology: regular, S1S2, no murmurs Gastrointestinal: normoactive bowel sounds, no tenderness, no distended Integumentary: no rash, warm and dry Neurologic: no focal deficit, no asterixis, alert and oriented x3 Musculoskeletal: other (no edema) Psychiatric: mood/affect appropriate, cooperative - Lab 01/04/17 03:13 01/04/17 07:47 Most recent lab results Calcium 8.5 mg/dL (8.4-10.2) 01/03/17 05:16 Magnesium 2.90 mg/dL (1.7-2.3) H 12/31/16 08:45
[2017-01-04] MEDS: PULMICORT IH SCH ×2 (08:36→20:11)
[2017-01-04] MEDS: BROVANA NEBU IH SCH ×2 (08:37→20:11)
[2017-01-04] MEDS: NORVASC PO SCH (10:00)
[2017-01-04] MEDS: ZYLOPRIM PO SCH (10:00)
[2017-01-04] MEDS: CATAPRES PO SCH ×2 (10:00→22:00)
[2017-01-04] MEDS: PEPCID PO SCH (10:00)
[2017-01-04] MEDS: ELIQUIS PO SCH ×2 (10:00→22:00)
[2017-01-04] MEDS: LOPRESSOR PO SCH (10:00)
[2017-01-04] MEDS: FLONASE NS SCH (10:00)
[2017-01-04] MEDS: BABY ASPIRIN PO SCH (10:00)
--- NOTE | 2017-01-04 11:23 | Progress Note ---
Assessment and Plan Patient has venous duplex negative for DVT and 2-D echo showing no right heart strain, therefore no vascular intervention needed at this time. Patient will follow-up with Dr. York in the office as an outpatient. Subjective Date of service: 01/04/17 Interval history: Patient feels well, complains of left leg cramps sometimes. Objective - Exam Narrative Exam: Feet warm bilaterally, stable oxygen requirements, at baseline - Constitutional Vitals: Vital Signs - 12hr 01/03/17 01/04/17 01/04/17 23:53 00:06 00:14 Temperature 98.3 F Pulse Rate 81 74 Pulse Rate [ Posterior Left Throughout] Respiratory 15 22 Rate Respiratory Rate [Posterior Left Throughout] Blood Pressure Blood Pressure 117/64 [Right] O2 Sat by Pulse 99 94 Oximetry 01/04/17 01/04/17 01/04/17 02:10 02:21 04:00 Temperature 98.6 F Pulse Rate 76 Pulse Rate [ 75 81 Posterior Left Throughout] Respiratory 18 Rate Respiratory 12 15 Rate [Posterior Left Throughout] Blood Pressure Blood Pressure 151/86 [Right] O2 Sat by Pulse Oximetry 01/04/17 01/04/17 04:42 10:00 Temperature 97.9 F Pulse Rate 86 Pulse Rate [ Posterior Left Throughout] Respiratory 22 18 Rate Respiratory Rate [Posterior Left Throughout] Blood Pressure 151/86 Blood Pressure 149/90 [Right] O2 Sat by Pulse 99 Oximetry - Labs CBC & Chem 7: 01/04/17 03:13 01/04/17 07:47 Labs: Abnormal lab results 01/04/17 Range/Units 07:47 Chloride 96.0 L (98-107) mmol/L BUN 40 H (7-17) mg/dL Creatinine 1.6 H (0.7-1.2) mg/dL Glucose 148 H (65-100) mg/dL Calcium 8.0 L (8.4-10.2) mg/dL
--- NOTE | 2017-01-04 11:46 | Progress Note ---
Assessment and Plan Pulmonary embolism. Hemodynamically stable at this time. Normal venous Doppler and echocardiogram with no significant right ventricular strain, mild pulmonary hypertension at 37 mmHg. Also evidence of left ventricular diastolic dysfunction COPD with exacerbation. Controlled Dyspnea secondary to the above. Controlled Past medical history of DVT Chronic kidney disease Epistaxis. After today. On anticoagulation Recommendations Continue nebs Can transition to Breo or Symbicort at . Oxygen support via nasal cannula or mask to maintain oximetry over 92% Continue OAC as tolerated. Revaluate as an outpatient. She is to follow-up [place] a patient for COPD and PE evaluation. She follows with Dr. Garrido, we'll set for follow-up appointment in 2-3 weeks after discharge Will sign off Subjective Date of service: 01/04/17 Interval history: Patient reports no respiratory complaints. She has some chest tightness and wheezing earlier this morning that disappeared after her neb treatment Objective Vital Signs - 12hr 01/03/17 01/04/17 01/04/17 23:53 00:06 00:14 Temperature 98.3 F Pulse Rate 81 74 Pulse Rate [ Posterior Left Throughout] Respiratory 15 22 Rate Respiratory Rate [Posterior Left Throughout] Blood Pressure Blood Pressure 117/64 [Right] O2 Sat by Pulse 99 94 Oximetry 01/04/17 01/04/17 01/04/17 02:10 02:21 04:00 Temperature 98.6 F Pulse Rate 76 Pulse Rate [ 75 81 Posterior Left Throughout] Respiratory 18 Rate Respiratory 12 15 Rate [Posterior Left Throughout] Blood Pressure Blood Pressure 151/86 [Right] O2 Sat by Pulse Oximetry 01/04/17 01/04/17 04:42 10:00 Temperature 97.9 F Pulse Rate 86 Pulse Rate [ Posterior Left Throughout] Respiratory 22 18 Rate Respiratory Rate [Posterior Left Throughout] Blood Pressure 151/86 Blood Pressure 149/90 [Right] O2 Sat by Pulse 99 Oximetry Constitutional: no acute distress Eyes: non-icteric ENT: oropharynx moist, epistaxis Neck: supple, no lymphadenopathy, no JVD Ascultation: Bilateral: clear, diminished breath sounds Cardiovascular: regular rate and rhythm Gastrointestinal: normoactive bowel sounds, non-distended Integumentary: normal Extremities: no cyanosis, no edema, other (yaya's is negative) Neurologic: normal mental status, non-focal exam, CN II-XII normal, motor strength normal and CBC and BMP: 01/04/17 03:13 01/04/17 07:47 ABG, PT/INR, D-dimer: PT/INR, D-dimer PT 13.7 Sec. (12.2-14.9) 12/31/16 12:12 INR 1.00 (0.87-1.13) 12/31/16 12:12 D-Dimer 2527.54 ng/mlDDU (0-234) H 12/31/16 08:45 Abnormal lab findings: Abnormal Labs 12/31/16 12/31/16 12/31/16 08:45 08:45 08:45 MCH 27 L RDW 15.9 H Lymph % (Auto) [place] % (Auto) 14.3 H Lymph # [place] # 1.0 H Seg Neutrophils % Seg Neuts % (Manual) Lymphocytes % (Manual) Seg Neutrophils # Seg Neutrophils # Man Lymphocytes # (Manual) D-Dimer 2527.54 H Heparin Anti-Xa Level Chloride BUN 35 H Creatinine 1.8 H Glucose 103 H Calcium Magnesium 2.90 H NT-Pro-B Natriuret Pep Albumin 12/31/16 12/31/16 01/01/17 08:54 17:50 05:25 MCH RDW Lymph % (Auto) [place] % (Auto) Lymph # [place] # Seg Neutrophils % Seg Neuts % (Manual) Lymphocytes % (Manual) Seg Neutrophils # Seg Neutrophils # Man Lymphocytes # (Manual) D-Dimer Heparin Anti-Xa Level 1.31 H 0.15 L Chloride BUN Creatinine Glucose Calcium Magnesium NT-Pro-B Natriuret Pep 909.2 H Albumin 01/01/17 01/01/17 01/02/17 08:06 16:47 07:14 MCH RDW 16.0 H Lymph % (Auto) [place] % (Auto) Lymph # [place] # Seg Neutrophils % Seg Neuts % (Manual) 91.0 H Lymphocytes % (Manual) 8.0 L Seg Neutrophils # Seg Neutrophils # Man 8.8 H Lymphocytes # (Manual) 0.8 L D-Dimer Heparin Anti-Xa Level 0.22 L > 2.00 H Chloride BUN Creatinine Glucose Calcium Magnesium NT-Pro-B Natriuret Pep Albumin 01/02/17 01/03/17 01/03/17 07:14 05:16 05:16 MCH 27 L RDW 15.6 H Lymph % (Auto) 6.6 L [place] % (Auto) Lymph # 0.6 L [place] # Seg Neutrophils % 89.9 H Seg Neuts % (Manual) Lymphocytes % (Manual) Seg Neutrophils # 8.2 H Seg Neutrophils # Man Lymphocytes # (Manual) D-Dimer Heparin Anti-Xa Level Chloride 97.1 L 95.7 L BUN 25 H 37 H Creatinine 1.3 H 1.7 H Glucose 156 H 152 H Calcium Magnesium NT-Pro-B Natriuret Pep Albumin 3.5 L 01/04/17 07:47 MCH RDW Lymph % (Auto) [place] % (Auto) Lymph # [place] # Seg Neutrophils % Seg Neuts % (Manual) Lymphocytes % (Manual) Seg Neutrophils # Seg Neutrophils # Man Lymphocytes # (Manual) D-Dimer Heparin Anti-Xa Level Chloride 96.0 L BUN 40 H Creatinine 1.6 H Glucose 148 H Calcium 8.0 L Magnesium NT-Pro-B Natriuret Pep Albumin
--- NOTE | 2017-01-04 12:23 | Progress Note ---
Assessment and Plan Assessment and plan: (1) Acute pulmonary embolism Patient initiated on IV Heparin and Xarelto. Echocardiogram reveals left ventricular chamber size, normal with mild concentric left ventricular hypertrophy. Left ventricular wall motion and contractility are within normal limits. EF 50-55%. There is mild pulmonary hypertension but no heart strain . Doppler ultrasound of lower extremities negative. Patient has venous duplex negative for DVT and 2-D echo showing no right heart strain, therefore no vascular intervention needed at this time (2) COPD exacerbation Continue on Neb tx, IV solumedrol and Levaquin. Oxygen support via nasal cannula or mask to maintain oximetry over 92% pulm consulted (3) SMITA (acute kidney injury) IV fluids for now. Nephrology following (4) HTN (hypertension) Cont Metoprolol and Clonidine (5) HLD (hyperlipidemia) Cont Simvastatin (6) Gout Cont Allopurinol (7) Asthma Cont Singulair (8) DVT prophylaxis On Heparin and Xarelto History Interval history: No new issues overnight. Hospitalist Physical - Constitutional Vitals: Temp Pulse Resp BP Pulse Ox 97.9 F 86 18 149/90 99 01/04/17 10:00 01/04/17 10:00 01/04/17 10:00 01/04/17 10:00 01/04/17 10:00 General appearance: Present: no acute distress - EENT Eyes: Present: PERRL, EOM intact ENT: hearing intact, clear oral mucosa, dentition normal - Neck Neck: Present: supple, normal ROM - Respiratory Respiratory effort: normal Respiratory: bilateral: CTA - Cardiovascular Rhythm: regular Heart Sounds: Present: S1 & S2. Absent: gallop, rub - Extremities Extremities: no ischemia, No edema, Full ROM - Abdominal General gastrointestinal: soft, non-tender, non-distended, normal bowel sounds - Integumentary Integumentary: Present: clear, warm, dry - Neurologic Neurologic: CNII-XII intact, moves all extremities Results - Labs CBC & Chem 7: 01/04/17 03:13 01/04/17 07:47 Labs: Laboratory Last Values WBC 9.1 K/mm3 (4.5-11.0) 01/03/17 05:16 RBC 4.48 M/mm3 (3.65-5.03) 01/03/17 05:16 Hgb 11.8 gm/dl (10.1-14.3) 01/04/17 03:13 Hct 37.3 % (30.3-42.9) 01/04/17 03:13 MCV 85 fl (79-97) 01/03/17 05:16 MCH 27 pg (28-32) L 01/03/17 05:16 MCHC 32 % (30-34) 01/03/17 05:16 RDW 15.6 % (13.2-15.2) H 01/03/17 05:16 Plt Count 191 K/mm3 (140-440) 01/04/17 03:13 Lymph % (Auto) 6.6 % (13.4-35.0) L 01/03/17 05:16 [place] % (Auto) 3.4 % (0.0-7.3) 01/03/17 05:16 Eos % (Auto) 0.0 % (0.0-4.3) 01/03/17 05:16 Baso % (Auto) 0.1 % (0.0-1.8) 01/03/17 05:16 Lymph # 0.6 K/mm3 (1.2-5.4) L 01/03/17 05:16 [place] # 0.3 K/mm3 (0.0-0.8) 01/03/17 05:16 Eos # 0.0 K/mm3 (0.0-0.4) 01/03/17 05:16 Baso # 0.0 K/mm3 (0.0-0.1) 01/03/17 05:16 Add Manual Diff Complete 01/02/17 07:14 Total Counted 100 01/02/17 07:14 Seg Neutrophils % 89.9 % (40.0-70.0) H 01/03/17 05:16 Seg Neuts % (Manual) 91.0 % (40.0-70.0) H 01/02/17 07:14 Band Neutrophils % 0 % 01/02/17 07:14 Lymphocytes % (Manual) 8.0 % (13.4-35.0) L 01/02/17 07:14 Reactive Lymphs % (Man) 0 % 01/02/17 07:14 Monocytes % (Manual) 1.0 % (0.0-7.3) 01/02/17 07:14 Eosinophils % (Manual) 0 % (0.0-4.3) 01/02/17 07:14 Basophils % (Manual) 0 % (0.0-1.8) 01/02/17 07:14 Metamyelocytes % 0 % 01/02/17 07:14 Myelocytes % 0 % 01/02/17 07:14 Promyelocytes % 0 % 01/02/17 07:14 Blast Cells % 0 % 01/02/17 07:14 Nucleated RBC % Not Reportable 01/02/17 07:14 Seg Neutrophils # 8.2 K/mm3 (1.8-7.7) H 01/03/17 05:16 Seg Neutrophils # Man 8.8 K/mm3 (1.8-7.7) H 01/02/17 07:14 Band Neutrophils # 0.0 K/mm3 01/02/17 07:14 Lymphocytes # (Manual) 0.8 K/mm3 (1.2-5.4) L 01/02/17 07:14 Abs React Lymphs (Man) 0.0 K/mm3 01/02/17 07:14 Monocytes # (Manual) 0.1 K/mm3 (0.0-0.8) 01/02/17 07:14 Eosinophils # (Manual) 0.0 K/mm3 (0.0-0.4) 01/02/17 07:14 Basophils # (Manual) 0.0 K/mm3 (0.0-0.1) 01/02/17 07:14 Metamyelocytes # 0.0 K/mm3 01/02/17 07:14 Myelocytes # 0.0 K/mm3 01/02/17 07:14 Promyelocytes # 0.0 K/mm3 01/02/17 07:14 Blast Cells # 0.0 K/mm3 01/02/17 07:14 WBC Morphology Not Reportable 01/02/17 07:14 Hypersegmented Neuts Not Reportable 01/02/17 07:14 Hyposegmented Neuts Not Reportable 01/02/17 07:14 Hypogranular Neuts Not Reportable 01/02/17 07:14 Smudge Cells Not Reportable 01/02/17 07:14 Toxic Granulation Not Reportable 01/02/17 07:14 Toxic Vacuolation Not Reportable 01/02/17 07:14 Dohle Bodies Not Reportable 01/02/17 07:14 Pelger-Huet Anomaly Not Reportable 01/02/17 07:14 Ariel Rods Not Reportable 01/02/17 07:14 Platelet Estimate Appears normal 01/02/17 07:14 Clumped Platelets Not Reportable 01/02/17 07:14 Plt Clumps, EDTA Not Reportable 01/02/17 07:14 Large Platelets Not Reportable 01/02/17 07:14 Giant Platelets Not Reportable 01/02/17 07:14 Platelet Satelliting Not Reportable 01/02/17 07:14 Plt Morphology Comment Not Reportable 01/02/17 07:14 RBC Morphology Not Reportable 01/02/17 07:14 Dimorphic RBCs Not Reportable 01/02/17 07:14 Polychromasia Not Reportable 01/02/17 07:14 Hypochromasia Not Reportable 01/02/17 07:14 Poikilocytosis Not Reportable 01/02/17 07:14 Anisocytosis 1+ 01/02/17 07:14 Microcytosis Not Reportable 01/02/17 07:14 Macrocytosis Not Reportable 01/02/17 07:14 Spherocytes Not Reportable 01/02/17 07:14 Pappenheimer Bodies Not Reportable 01/02/17 07:14 Sickle Cells Not Reportable 01/02/17 07:14 Target Cells Not Reportable 01/02/17 07:14 Tear Drop Cells Not Reportable 01/02/17 07:14 Ovalocytes 1+ 01/02/17 07:14 Helmet Cells Not Reportable 01/02/17 07:14 Edwards-[place]off[place] Bodies Not Reportable 01/02/17 07:14 [place] Rings Not Reportable 01/02/17 07:14 [place] Cells Not Reportable 01/02/17 07:14 Bite Cells Not Reportable 01/02/17 07:14 Crenated Cell Not Reportable 01/02/17 07:14 Elliptocytes Not Reportable 01/02/17 07:14 Acanthocytes (Spur) Not Reportable 01/02/17 07:14 Rouleaux Not Reportable 01/02/17 07:14 Hemoglobin C Crystals Not Reportable 01/02/17 07:14 Schistocytes Not Reportable 01/02/17 07:14 Malaria parasites Not Reportable 01/02/17 07:14 [place] Bodies Not Reportable 01/02/17 07:14 Hem Pathologist Commnt No 01/02/17 07:14 PT 13.7 Sec. (12.2-14.9) 12/31/16 12:12 INR 1.00 (0.87-1.13) 12/31/16 12:12 APTT 30.2 Sec. (24.2-36.6) 12/31/16 12:12 D-Dimer 2527.54 ng/mlDDU (0-234) H 12/31/16 08:45 Heparin Anti-Xa Level > 2.00 U.I./ml (0.3-0.7) H 01/01/17 16:47 Sodium 139 mmol/L (137-145) 01/04/17 07:47 Potassium 4.0 mmol/L (3.6-5.0) 01/04/17 07:47 Chloride 96.0 mmol/L (98-107) L 01/04/17 07:47 Carbon Dioxide 29 mmol/L (22-30) 01/04/17 07:47 Anion Gap 18 mmol/L 01/04/17 07:47 BUN 40 mg/dL (7-17) H 01/04/17 07:47 Creatinine 1.6 mg/dL (0.7-1.2) H 01/04/17 07:47 Estimated GFR 38 ml/min 01/04/17 07:47 BUN/Creatinine Ratio 25 % 01/04/17 07:47 Glucose 148 mg/dL (65-100) H 01/04/17 07:47 Calcium 8.0 mg/dL (8.4-10.2) L 01/04/17 07:47 Magnesium 2.90 mg/dL (1.7-2.3) H 12/31/16 08:45 Total Bilirubin 0.20 mg/dL (0.1-1.2) 01/02/17 07:14 AST 20 units/L (5-40) 01/02/17 07:14 ALT 18 units/L (7-56) 01/02/17 07:14 Alkaline Phosphatase 100 units/L (35-129) 01/02/17 07:14 Troponin T < 0.010 ng/mL (0.00-0.029) 12/31/16 08:45 NT-Pro-B Natriuret Pep 909.2 pg/mL (0-900) H 12/31/16 08:54 Total Protein 7.2 g/dL (6.3-8.2) 01/02/17 07:14 Albumin 3.5 g/dL (3.9-5) L 01/02/17 07:14 Albumin/Globulin Ratio 0.9 % 01/02/17 07:14 Urine Color Straw (Yellow) 12/31/16 11:15 Urine Turbidity Clear (Clear) 12/31/16 11:15 Urine pH 7.0 (5.0-7.0) 12/31/16 11:15 Ur Specific [place] 1.013 (1.003-1.030) 12/31/16 11:15 Urine Protein <15 mg/dl mg/dL (Negative) 12/31/16 11:15 Urine Glucose (UA) Neg mg/dL (Negative) 12/31/16 11:15 Urine Ketones Neg mg/dL (Negative) 12/31/16 11:15 Urine Blood Neg (Negative) 12/31/16 11:15 Urine Nitrite Neg (Negative) 12/31/16 11:15 Urine Bilirubin Neg (Negative) 12/31/16 11:15 Urine Urobilinogen < 2.0 mg/dL (<2.0) 12/31/16 11:15 Ur Leukocyte Esterase Sm (Negative) 12/31/16 11:15 Urine WBC (Auto) < 1.0 /HPF (0.0-6.0) 12/31/16 11:15 Urine RBC (Auto) 1.0 /HPF (0.0-6.0) 12/31/16 11:15 U Epithel Cells (Auto) < 1.0 /HPF (0-13.0) 12/31/16 11:15
[2017-01-04] MEDS: AMBIEN PO PRN (22:00)
[2017-01-04] MEDS: ROBITUSSIN DM PO PRN (22:30)
[2017-01-05] MEDS: LOPRESSOR PO SCH ×3 (00:29→22:25)
[2017-01-05] MEDS: DUONEB *Not for PRN Use IH SCH ×5 (03:55→21:03)
[2017-01-05] MEDS: PULMICORT IH SCH ×2 (07:22→21:03)
[2017-01-05] MEDS: BROVANA NEBU IH SCH ×2 (07:22→21:03)
[2017-01-05 07:46] LABS: Calcium 8.5 mg/dL (8.4-10.2); Chloride 96.9 mmol/L (98-107); Phosphorous 3.7 mg/dL (2.5-4.5); Potassium 3.9 mmol/L (3.6-5.0)
[2017-01-05] MEDS: SINGULAIR PO SCH ×2 (08:38→18:35)
[2017-01-05] MEDS: PERCOCET 5/325 PO PRN ×2 (08:50→13:50)
--- NOTE | 2017-01-05 09:05 | Progress Note ---
Assessment and Plan 1. Acute kidney injury: SMITA superimposed on CKD stage 3 in the setting of volume depletion. Renal function is overall better. Creatinine level is stable. Continue IV fluids. Advised to increase fluid intake. Hemodynamically stable. 2. Acute PE. 3. COPD exacerbation. Will follow. Subjective Date of service: 01/05/17 Interval history: Patient is feeling ok. Objective - Vital Signs Vital signs: Vital Signs - 12hr 01/05/17 01/05/17 01/05/17 00:28 04:58 05:30 Temperature 98.3 F 97.8 F Pulse Rate 71 81 Pulse Rate [ 77 Anterior Bilateral Throughout] Pulse Rate [ Posterior Bilateral Throughout] Respiratory 20 19 Rate Respiratory 24 Rate [Anterior Bilateral Throughout] Respiratory Rate [Posterior Bilateral Throughout] Blood Pressure 127/66 Blood Pressure 145/92 [Right] O2 Sat by Pulse 98 100 Oximetry 01/05/17 01/05/17 01/05/17 05:40 07:20 08:00 Temperature Pulse Rate Pulse Rate [ 70 82 Anterior Bilateral Throughout] Pulse Rate [ 84 Posterior Bilateral Throughout] Respiratory Rate Respiratory 22 20 Rate [Anterior Bilateral Throughout] Respiratory 20 Rate [Posterior Bilateral Throughout] Blood Pressure Blood Pressure [Right] O2 Sat by Pulse 100 Oximetry 01/05/17 08:35 Temperature Pulse Rate 81 Pulse Rate [ Anterior Bilateral Throughout] Pulse Rate [ Posterior Bilateral Throughout] Respiratory Rate Respiratory Rate [Anterior Bilateral Throughout] Respiratory Rate [Posterior Bilateral Throughout] Blood Pressure Blood Pressure [Right] O2 Sat by Pulse Oximetry - General Appearance General appearance: well-developed, appears stated age, other (thin built, no distress) EENT: ATNC, PERRL, hearing intact, vision intact Neck: supple Respiratory: Present: Clear to Ascultation, Decreased Breath Sounds Cardiology: regular, S1S2, no murmurs Gastrointestinal: normoactive bowel sounds, no tenderness, no distended Integumentary: no rash Neurologic: no focal deficit, no asterixis, alert and oriented x3, CN 3-12 intact Musculoskeletal: other (no edema) Psychiatric: mood/affect appropriate, cooperative - Lab 01/06/17 04:36 01/06/17 04:36 Most recent lab results Calcium 8.5 mg/dL (8.4-10.2) 01/05/17 07:08 Phosphorus 3.70 mg/dL (2.5-4.5) 01/05/17 07:08 Magnesium 2.90 mg/dL (1.7-2.3) H 12/31/16 08:45
[2017-01-05] MEDS: ZYLOPRIM PO SCH (10:30)
[2017-01-05] MEDS: CATAPRES PO SCH ×2 (10:30→22:24)
[2017-01-05] MEDS: FLONASE NS SCH (10:30)
[2017-01-05] MEDS: NORVASC PO SCH (10:30)
[2017-01-05] MEDS: PEPCID PO SCH (10:30)
[2017-01-05] MEDS: ELIQUIS PO SCH ×2 (10:30→22:26)
[2017-01-05] MEDS: LEVAQUIN PO SCH (10:30)
[2017-01-05] MEDS: BABY ASPIRIN PO SCH (10:30)
--- NOTE | 2017-01-05 10:41 | Progress Note ---
Assessment and Plan Assessment and plan: (1) Acute pulmonary embolism Cont. Eliquis. Echocardiogram reveals left ventricular chamber size, normal with mild concentric left ventricular hypertrophy. Left ventricular wall motion and contractility are within normal limits. EF 50-55%. There is mild pulmonary hypertension but no heart strain . Doppler ultrasound of lower extremities negative. Patient has venous duplex negative for DVT and 2-D echo showing no right heart strain, therefore no vascular intervention needed at this time (2) COPD exacerbation Continue on Neb tx, IV solumedrol and Levaquin. Oxygen support via nasal cannula or mask to maintain oximetry over 92% pulm consulted (3) SMITA (acute kidney injury) IV fluids for now. Nephrology following. Creatinine is still slightly elevated. Anticipate normalization in a.m. Likely discharged at that time. (4) HTN (hypertension) Cont Metoprolol and Clonidine (5) HLD (hyperlipidemia) Cont Simvastatin (6) Gout Cont Allopurinol (7) Asthma Cont Singulair (8) DVT prophylaxis On Heparin and Xarelto (9) Disposition Anticipate discharge in a.m. History Interval history: No new issues overnight. Hospitalist Physical - Constitutional Vitals: Temp Pulse Resp BP Pulse Ox 97.8 F 81 20 145/92 100 01/05/17 04:58 01/05/17 08:35 01/05/17 08:00 01/05/17 04:58 01/05/17 07:20 General appearance: Present: no acute distress - EENT Eyes: Present: PERRL, EOM intact ENT: hearing intact, clear oral mucosa, dentition normal - Neck Neck: Present: supple, normal ROM - Respiratory Respiratory effort: normal Respiratory: bilateral: CTA - Cardiovascular Rhythm: regular Heart Sounds: Present: S1 & S2. Absent: gallop, rub - Extremities Extremities: no ischemia, No edema, Full ROM - Abdominal General gastrointestinal: soft, non-tender, non-distended, normal bowel sounds - Integumentary Integumentary: Present: clear, warm, dry - Neurologic Neurologic: CNII-XII intact, moves all extremities Results - Labs CBC & Chem 7: 01/04/17 03:13 01/05/17 07:08 Labs: Laboratory Last Values WBC 9.1 K/mm3 (4.5-11.0) 01/03/17 05:16 RBC 4.48 M/mm3 (3.65-5.03) 01/03/17 05:16 Hgb 11.8 gm/dl (10.1-14.3) 01/04/17 03:13 Hct 37.3 % (30.3-42.9) 01/04/17 03:13 MCV 85 fl (79-97) 01/03/17 05:16 MCH 27 pg (28-32) L 01/03/17 05:16 MCHC 32 % (30-34) 01/03/17 05:16 RDW 15.6 % (13.2-15.2) H 01/03/17 05:16 Plt Count 191 K/mm3 (140-440) 01/04/17 03:13 Lymph % (Auto) 6.6 % (13.4-35.0) L 01/03/17 05:16 [place] % (Auto) 3.4 % (0.0-7.3) 01/03/17 05:16 Eos % (Auto) 0.0 % (0.0-4.3) 01/03/17 05:16 Baso % (Auto) 0.1 % (0.0-1.8) 01/03/17 05:16 Lymph # 0.6 K/mm3 (1.2-5.4) L 01/03/17 05:16 [place] # 0.3 K/mm3 (0.0-0.8) 01/03/17 05:16 Eos # 0.0 K/mm3 (0.0-0.4) 01/03/17 05:16 Baso # 0.0 K/mm3 (0.0-0.1) 01/03/17 05:16 Add Manual Diff Complete 01/02/17 07:14 Total Counted 100 01/02/17 07:14 Seg Neutrophils % 89.9 % (40.0-70.0) H 01/03/17 05:16 Seg Neuts % (Manual) 91.0 % (40.0-70.0) H 01/02/17 07:14 Band Neutrophils % 0 % 01/02/17 07:14 Lymphocytes % (Manual) 8.0 % (13.4-35.0) L 01/02/17 07:14 Reactive Lymphs % (Man) 0 % 01/02/17 07:14 Monocytes % (Manual) 1.0 % (0.0-7.3) 01/02/17 07:14 Eosinophils % (Manual) 0 % (0.0-4.3) 01/02/17 07:14 Basophils % (Manual) 0 % (0.0-1.8) 01/02/17 07:14 Metamyelocytes % 0 % 01/02/17 07:14 Myelocytes % 0 % 01/02/17 07:14 Promyelocytes % 0 % 01/02/17 07:14 Blast Cells % 0 % 01/02/17 07:14 Nucleated RBC % Not Reportable 01/02/17 07:14 Seg Neutrophils # 8.2 K/mm3 (1.8-7.7) H 01/03/17 05:16 Seg Neutrophils # Man 8.8 K/mm3 (1.8-7.7) H 01/02/17 07:14 Band Neutrophils # 0.0 K/mm3 01/02/17 07:14 Lymphocytes # (Manual) 0.8 K/mm3 (1.2-5.4) L 01/02/17 07:14 Abs React Lymphs (Man) 0.0 K/mm3 01/02/17 07:14 Monocytes # (Manual) 0.1 K/mm3 (0.0-0.8) 01/02/17 07:14 Eosinophils # (Manual) 0.0 K/mm3 (0.0-0.4) 01/02/17 07:14 Basophils # (Manual) 0.0 K/mm3 (0.0-0.1) 01/02/17 07:14 Metamyelocytes # 0.0 K/mm3 01/02/17 07:14 Myelocytes # 0.0 K/mm3 01/02/17 07:14 Promyelocytes # 0.0 K/mm3 01/02/17 07:14 Blast Cells # 0.0 K/mm3 01/02/17 07:14 WBC Morphology Not Reportable 01/02/17 07:14 Hypersegmented Neuts Not Reportable 01/02/17 07:14 Hyposegmented Neuts Not Reportable 01/02/17 07:14 Hypogranular Neuts Not Reportable 01/02/17 07:14 Smudge Cells Not Reportable 01/02/17 07:14 Toxic Granulation Not Reportable 01/02/17 07:14 Toxic Vacuolation Not Reportable 01/02/17 07:14 Dohle Bodies Not Reportable 01/02/17 07:14 Pelger-Huet Anomaly Not Reportable 01/02/17 07:14 Ariel Rods Not Reportable 01/02/17 07:14 Platelet Estimate Appears normal 01/02/17 07:14 Clumped Platelets Not Reportable 01/02/17 07:14 Plt Clumps, EDTA Not Reportable 01/02/17 07:14 Large Platelets Not Reportable 01/02/17 07:14 Giant Platelets Not Reportable 01/02/17 07:14 Platelet Satelliting Not Reportable 01/02/17 07:14 Plt Morphology Comment Not Reportable 01/02/17 07:14 RBC Morphology Not Reportable 01/02/17 07:14 Dimorphic RBCs Not Reportable 01/02/17 07:14 Polychromasia Not Reportable 01/02/17 07:14 Hypochromasia Not Reportable 01/02/17 07:14 Poikilocytosis Not Reportable 01/02/17 07:14 Anisocytosis 1+ 01/02/17 07:14 Microcytosis Not Reportable 01/02/17 07:14 Macrocytosis Not Reportable 01/02/17 07:14 Spherocytes Not Reportable 01/02/17 07:14 Pappenheimer Bodies Not Reportable 01/02/17 07:14 Sickle Cells Not Reportable 01/02/17 07:14 Target Cells Not Reportable 01/02/17 07:14 Tear Drop Cells Not Reportable 01/02/17 07:14 Ovalocytes 1+ 01/02/17 07:14 Helmet Cells Not Reportable 01/02/17 07:14 [place] Bodies Not Reportable 01/02/17 07:14 [place] Rings Not Reportable 01/02/17 07:14 [place] Cells Not Reportable 01/02/17 07:14 Bite Cells Not Reportable 01/02/17 07:14 Crenated Cell Not Reportable 01/02/17 07:14 Elliptocytes Not Reportable 01/02/17 07:14 Acanthocytes (Spur) Not Reportable 01/02/17 07:14 Rouleaux Not Reportable 01/02/17 07:14 Hemoglobin C Crystals Not Reportable 01/02/17 07:14 Schistocytes Not Reportable 01/02/17 07:14 Malaria parasites Not Reportable 01/02/17 07:14 [place] Bodies Not Reportable 01/02/17 07:14 Hem Pathologist Commnt No 01/02/17 07:14 PT 13.7 Sec. (12.2-14.9) 12/31/16 12:12 INR 1.00 (0.87-1.13) 12/31/16 12:12 APTT 30.2 Sec. (24.2-36.6) 12/31/16 12:12 D-Dimer 2527.54 ng/mlDDU (0-234) H 12/31/16 08:45 Heparin Anti-Xa Level > 2.00 U.I./ml (0.3-0.7) H 01/01/17 16:47 Sodium 139 mmol/L (137-145) 01/05/17 07:08 Potassium 3.9 mmol/L (3.6-5.0) 01/05/17 07:08 Chloride 96.9 mmol/L (98-107) L 01/05/17 07:08 Carbon Dioxide 30 mmol/L (22-30) 01/05/17 07:08 Anion Gap 16 mmol/L 01/05/17 07:08 BUN 38 mg/dL (7-17) H 01/05/17 07:08 Creatinine 1.4 mg/dL (0.7-1.2) H 01/05/17 07:08 Estimated GFR 44 ml/min 01/05/17 07:08 BUN/Creatinine Ratio 27 % 01/05/17 07:08 Glucose 157 mg/dL (65-100) H 01/05/17 07:08 Calcium 8.5 mg/dL (8.4-10.2) 01/05/17 07:08 Phosphorus 3.70 mg/dL (2.5-4.5) 01/05/17 07:08 Magnesium 2.90 mg/dL (1.7-2.3) H 12/31/16 08:45 Total Bilirubin 0.20 mg/dL (0.1-1.2) 01/02/17 07:14 AST 20 units/L (5-40) 01/02/17 07:14 ALT 18 units/L (7-56) 01/02/17 07:14 Alkaline Phosphatase 100 units/L (35-129) 01/02/17 07:14 Total Creatine Kinase 72 units/L (30-135) 01/05/17 07:08 Troponin T < 0.010 ng/mL (0.00-0.029) 12/31/16 08:45 NT-Pro-B Natriuret Pep 909.2 pg/mL (0-900) H 12/31/16 08:54 Total Protein 7.2 g/dL (6.3-8.2) 01/02/17 07:14 Albumin 3.5 g/dL (3.9-5) L 01/02/17 07:14 Albumin/Globulin Ratio 0.9 % 01/02/17 07:14 Urine Color Straw (Yellow) 12/31/16 11:15 Urine Turbidity Clear (Clear) 12/31/16 11:15 Urine pH 7.0 (5.0-7.0) 12/31/16 11:15 Ur Specific [place] 1.013 (1.003-1.030) 12/31/16 11:15 Urine Protein <15 mg/dl mg/dL (Negative) 12/31/16 11:15 Urine Glucose (UA) Neg mg/dL (Negative) 12/31/16 11:15 Urine Ketones Neg mg/dL (Negative) 12/31/16 11:15 Urine Blood Neg (Negative) 12/31/16 11:15 Urine Nitrite Neg (Negative) 12/31/16 11:15 Urine Bilirubin Neg (Negative) 12/31/16 11:15 Urine Urobilinogen < 2.0 mg/dL (<2.0) 12/31/16 11:15 Ur Leukocyte Esterase Sm (Negative) 12/31/16 11:15 Urine WBC (Auto) < 1.0 /HPF (0.0-6.0) 12/31/16 11:15 Urine RBC (Auto) 1.0 /HPF (0.0-6.0) 12/31/16 11:15 U Epithel Cells (Auto) < 1.0 /HPF (0-13.0) 12/31/16 11:15
[2017-01-05] MEDS: ROBITUSSIN DM PO PRN (11:38)
[2017-01-05] MEDS: NORCO 7.5/325 PO PRN ×2 (11:44→17:35)
--- NOTE | 2017-01-05 14:34 | Vascular Lab Report ---
LOWER EXTREMITY VENOUS DUPLEX: REASON FOR EXAM: Pain of the lower extremities. COMMENTS ON THE RIGHT: All veins visualized are freely compressible without evidence of internal echogenicity. Flow is spontaneous and phasic throughout. COMMENTS ON THE LEFT: All veins visualized are freely compressible without evidence of internal echogenicity. Flow is spontaneous and phasic throughout. IMPRESSION: No evidence of acute or chronic deep venous thrombosis in either lower extremity.
[2017-01-05] MEDS: TESSALON PERLES PO PRN (18:36)
[2017-01-05] MEDS: PRAVACHOL PO SCH (22:27)
[2017-01-06] MEDS: DUONEB *Not for PRN Use IH SCH ×3 (02:00→13:33)
[2017-01-06 05:14] LABS: Hematocrit 37.3 % (30.3-42.9); Hemoglobin 12.2 gm/dl (10.1-14.3); Mean Corpuscular HGB Conc 33 % (30-34); Mean Corpuscular Hemoglobin 28 pg (28-32); Mean Corpuscular Volume 85 fl (79-97); Platelet Count 178 K/mm3 (140-440); Red Blood Count 4.39 M/mm3 (3.65-5.03); Red Cell Distribution Width 15.2 % (13.2-15.2); White Blood Count 7.8 K/mm3 (4.5-11.0)
[2017-01-06 05:53] LABS: Calcium 8.5 mg/dL (8.4-10.2); Potassium 4.5 mmol/L (3.6-5.0)
[2017-01-06 06:38] LABS: Basophils % (Manual) 0 % (0.0-1.8); Blastocytes % (Manual) 0 %; Diff Status Complete; Eosinophils % (Manual) 0 % (0.0-4.3); Platelet Estimate Consistent w Auto
--- NOTE | 2017-01-06 07:21 | Progress Note ---
Assessment and Plan 1. Acute kidney injury: SMITA superimposed on CKD stage 3 in the setting of volume depletion. Renal function has improved. Creatinine level is stable. Advised to increase fluid intake. Hemodynamically stable. 2. Acute PE. 3. COPD exacerbation. 4. HTN. Will follow. Subjective Date of service: 01/06/17 Interval history: Patient is feeling ok. Objective - Vital Signs Vital signs: Vital Signs - 12hr 01/05/17 01/05/17 01/05/17 20:00 20:08 21:04 Temperature Pulse Rate 72 64 Pulse Rate [ Posterior Bilateral Throughout] Respiratory 20 Rate Respiratory Rate [Posterior Bilateral Throughout] Blood Pressure 150/80 O2 Sat by Pulse 99 100 Oximetry 01/05/17 01/05/17 01/06/17 21:05 21:25 00:40 Temperature 98.0 F Pulse Rate 67 Pulse Rate [ 71 72 Posterior Bilateral Throughout] Respiratory 20 Rate Respiratory 19 18 Rate [Posterior Bilateral Throughout] Blood Pressure 134/80 O2 Sat by Pulse 100 Oximetry 01/06/17 05:34 Temperature 98.4 F Pulse Rate 71 Pulse Rate [ Posterior Bilateral Throughout] Respiratory 17 Rate Respiratory Rate [Posterior Bilateral Throughout] Blood Pressure 140/58 O2 Sat by Pulse 99 Oximetry - General Appearance General appearance: well-developed, appears stated age, other (no distress) EENT: ATNC, PERRL, hearing intact, vision intact Neck: supple Respiratory: Present: Clear to Ascultation, Decreased Breath Sounds Cardiology: regular, S1S2, no murmurs Gastrointestinal: normoactive bowel sounds, no tenderness, no distended Integumentary: no rash, warm and dry Neurologic: no focal deficit, no asterixis, alert and oriented x3, CN 3-12 intact Musculoskeletal: other (no edema) Psychiatric: mood/affect appropriate, cooperative - Lab 01/06/17 04:36 01/06/17 04:36 Most recent lab results Calcium 8.5 mg/dL (8.4-10.2) 01/06/17 04:36 Phosphorus 3.70 mg/dL (2.5-4.5) 01/05/17 07:08 Magnesium 2.90 mg/dL (1.7-2.3) H 12/31/16 08:45
[2017-01-06] MEDS: PULMICORT IH SCH (07:42)
[2017-01-06] MEDS: BROVANA NEBU IH SCH (07:42)
--- NOTE | 2017-01-06 09:21 | XRay Report ---
AP CHEST: HISTORY: Shortness of breath Compared to 12/31/16. 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 Heart size is borderline. The lungs are hyperinflated but clear. The bony structures are grossly intact. IMPRESSION: No acute cardiopulmonary process. Borderline heart size. Mild hyperinflation.
[2017-01-06] MEDS: ELIQUIS PO SCH (10:46)
[2017-01-06] MEDS: BABY ASPIRIN PO SCH (10:46)
[2017-01-06] MEDS: NORVASC PO SCH (10:47)
[2017-01-06] MEDS: LOPRESSOR PO SCH (10:47)
[2017-01-06] MEDS: PEPCID PO SCH (10:47)
[2017-01-06] MEDS: CATAPRES PO SCH (10:48)
[2017-01-06] MEDS: ZYLOPRIM PO SCH (10:48)
--- NOTE | 2017-01-06 12:31 | Discharge Summary ---
Providers - Providers Date of Admission: 12/31/16 12:06 Attending physician: PAL MORGAN 01/01/17 08:37 Consult to Physician [CONS] Routine Consulting Provider: ODALIS RAMOS Reason For Exam: acute PE Place consult to:: Dr. Ramos Notified:: Divya RN Phone number called:: Was contact made?: Yes If yes, spoke with:: Marcella-office Time called:: 09:27 01/01/17 08:38 Consult to Physician [CONS] Routine Consulting Provider: ANAM RODRIGUEZ Reason For Exam: SMITA Place consult to:: Dr. 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 OFFICER Hospitalization Condition: Stable Disposition: DC-30 STILL A PATIENT Core Measure Documentation - Palliative Care Palliative Care/ Comfort Measures: Not Applicable Exam - Constitutional Vitals: Temp Pulse Resp BP Pulse Ox 99.0 F 67 18 153/76 100 01/06/17 07:35 01/06/17 10:48 01/06/17 07:52 01/06/17 10:48 01/06/17 07:42 Plan Follow up with: PRIMARY CAREMD [Primary Care Provider] - 3-5 Days Prescriptions: ALBUTEROL Inhaler [ProAir HFA Inhaler] 2 puff IH QID PRN #1 inhalation PRN Reason: Shortness Of Breath Allopurinol [Zyloprim] 100 mg PO QDAY #30 tablet amLODIPine [Norvasc] 10 mg PO DAILY #30 tablet Apixaban [Eliquis] 10 mg PO Q12HR #30 tablet Arformoterol Nebu [Brovana Nebu] 15 mcg IH Q12HRT #7 ml Benzonatate [Tessalon Perles] 100 mg PO Q8HR PRN #30 capsule PRN Reason: cough Budesonide [Pulmicort Respules] 0.5 mg IH Q12HRT #1 nebu cloNIDine [Catapres] 0.1 mg PO BID #60 tablet Famotidine [Pepcid] 20 mg PO DAILY #30 tablet Fluticasone [Flonase] 1 spray NS QDAY #1 bottle Furosemide [Lasix TAB] 20 mg PO BID #60 tablet Ipratropium/Albuterol Sulfate [DUONEB *Not for PRN Use*] 1 ampul IH Q6HRT #1 ampul.neb Ipratropium/Albuterol Sulfate [Combivent Respimat] 1 spray IH QID #1 mist.inhal Levofloxacin [Levaquin TAB] 750 mg PO Q48HR #7 tablet Metoprolol [Lopressor TAB] 50 mg PO BID #60 tablet Montelukast [Singulair] 10 mg PO QPM #30 tablet oxyCODONE /ACETAMINOPHEN [Percocet 5/325 mg] 1 tab PO Q6H PRN #30 tablet PRN Reason: Pain, Moderate (4-6) Pravastatin [Pravachol] 40 mg PO QHS #30 tablet
[2017-01-06 12:35] VITALS: BP 158/70
--- NOTE | 2017-01-06 13:18 | Discharge Summary ---
Providers - Providers Date of Admission: 12/31/16 12:06 Date of discharge: 01/06/17 Attending physician: PAL MORGAN 01/01/17 08:37 Consult to Physician [CONS] Routine Consulting Provider: ODALIS RAMOS Reason For Exam: acute PE Place consult to:: Dr. Ramos Notified:: Divya RN Phone number called:: Was contact made?: Yes If yes, spoke with:: Marcella-office Time called:: 09:27 01/01/17 08:38 Consult to Physician [CONS] Routine Consulting Provider: ANAM RODRIGUEZ Reason For Exam: SMITA Place consult to:: Dr. Chowdhury Notified:: Divya HAMM Phone number called:: Was contact made?: Yes If yes, spoke with:: message with consult info left via voicemail Time called:: 09:03 Consult to Physician [CONS] Urgent Consulting Provider: KOJO HILL Reason For Exam: COPD Notified:: antonette Primary care physician: COMPUTER ARCHITECT Hospitalization Condition: Stable Hospital course: This is a 76-year-old -[place] female who was admitted to the hospital 6 days ago after she presented to the emergency department by EMS from home with complaint of difficulty breathing upon waking that morning. Chest X-ray revealed cardiomegaly but no significant interval changes. VQ scan revealed high probability of PE. Renal US revealed R renal cyst, mild underlying medical renal disease and fatty liver possible sonographically without acute renal abnormality. Lower extremity venous duplex showed no evidence of acute or chronic deep venous thrombosis in either lower extremity. Echocarcardiogram showed L ventricular hypertrophy, EF 50-55, abnormal left ventricular diastolic filling was noted consistent with impaired relaxation. Patient was treated with IVF, antibiotics, inhaled steroids and beta agonist, anticoagulant and resumed home medications. Patient improved clinically. Patient instructed to follow up with PCP in 3-5 days Disposition: DC-01 TO HOME OR SELFCARE Core Measure Documentation - Palliative Care Palliative Care/ Comfort Measures: Not Applicable - Core Measures Any of the following diagnoses?: DVT/PE - VTE Discharge Requirements Deep Vein Thrombosis/Pulmonary Embolism Present on Admission: Yes Has pt received <5 days of overlap therapy or INR<2.0: No (Patient d/c on Eliquis) Anticoagulant overlap therapy prescribed at discharge: Yes Contraindication No Overlap Therapy order at DC: Not Indicated Exam - Constitutional Vitals: Temp Pulse Resp BP Pulse Ox 99.8 F H 67 18 158/70 100 01/06/17 12:43 01/06/17 12:43 01/06/17 12:43 01/06/17 12:43 01/06/17 07:42 Plan Activity: no restrictions, fall precautions Weight Bearing Status: Full Weight Bearing Diet: low fat, low cholesterol, low salt, renal Follow up with: [facility] [Provider Group] - 7 Days PRIMARY [facility]ARE, [Primary Care Provider] - 3-5 Days Prescriptions: Pravastatin [Pravachol] 40 mg PO QHS #30 tablet ALBUTEROL Inhaler [ProAir HFA Inhaler] 2 puff IH QID PRN #1 inhalation PRN Reason: Shortness Of Breath Allopurinol [Zyloprim] 100 mg PO QDAY #30 tablet amLODIPine [Norvasc] 10 mg PO DAILY #30 tablet Apixaban [Eliquis] 10 mg PO Q12HR #30 tablet Arformoterol Nebu [Brovana Nebu] 15 mcg IH Q12HRT #7 ml Benzonatate [Tessalon Perles] 100 mg PO Q8HR PRN #30 capsule PRN Reason: cough Budesonide [Pulmicort Respules] 0.5 mg IH Q12HRT #1 nebu cloNIDine [Catapres] 0.1 mg PO BID #60 tablet Famotidine [Pepcid] 20 mg PO DAILY #30 tablet Fluticasone [Flonase] 1 spray NS QDAY #1 bottle Furosemide [Lasix TAB] 20 mg PO BID #60 tablet Ipratropium/Albuterol Sulfate [DUONEB *Not for PRN Use*] 1 ampul IH Q6HRT #1 ampul.neb Ipratropium/Albuterol Sulfate [Combivent Respimat] 1 spray IH QID #1 mist.inhal Metoprolol [Lopressor TAB] 50 mg PO BID #60 tablet Montelukast [Singulair] 10 mg PO QPM #30 tablet oxyCODONE /ACETAMINOPHEN [Percocet 5/325 mg] 1 tab PO Q6H PRN #30 tablet PRN Reason: Pain, Moderate (4-6) Levofloxacin [Levaquin TAB] 750 mg PO Q48HR #7 tablet
--- NOTE | 2017-01-07 11:21 | Vascular Lab Report ---
LOWER EXTREMITY ARTERIAL DUPLEX: REASON FOR EXAM: Peripheral arterial disease. COMMENTS ON THE RIGHT: Biphasic waveforms are seen proximally. Monophasic waveforms are seen distally. No significant velocity gradients are identified. No focal significant plaque is identified. Findings are consistent with abnormal perfusion. Findings are inconclusive with the ability to heal distal wounds. COMMENTS ON THE LEFT: Monophasic waveforms are seen proximally. Monophasic waveforms are seen distally. No significant velocity gradients are identified. No focal significant plaque is identified. Findings are consistent with abnormal perfusion. Findings are inconclusive with the ability to heal distal wounds. IMPRESSION: RIGHT: Possible inflow disease without any identifiable stenosis in the lower extremity. LEFT:Possible inflow disease without identified any focal stenosis of the lower extremity. Clinical correlation is recommended. If warranted contrast angiography should be considered..
[2017-01-08] MEDS ORDERED: ELIQUIS PO SCH (10:00)
== END 2017-01-06 15:32 | disposition home or self-care (01) | DRG 175 ==
LOC: ED 08:12 → 4A 12:06
PROVIDERS: ADMIT Internal Medicine; ATTEND Internal Medicine
PROC: 5A09357 Assistance with Respiratory Ventilation, Less than 24 Consecutive Hours, Continuous Positive Airway Pressure (ICD-10-PCS; principal; 2017-01-01)
PROC: 3E0234Z Introduction of Serum, Toxoid and Vaccine into Muscle, Percutaneous Approach (ICD-10-PCS; principal; 2017-01-01)
DX: I26.99 Other pulmonary embolism without acute cor pulmonale (principal); N17.0 Acute kidney failure with tubular necrosis; J44.1 Chronic obstructive pulmonary disease with (acute) exacerbation; J45.901 Unspecified asthma with (acute) exacerbation; I13.0 Hypertensive heart and chronic kidney disease with heart failure and stage 1 through stage 4 chronic kidney disease, or unspecified chronic kidney disease; E78.5 Hyperlipidemia, unspecified; M10.9 Gout, unspecified; E11.22 Type 2 diabetes mellitus with diabetic chronic kidney disease; N18.3 Chronic kidney disease, stage 3 (moderate); M19.90 Unspecified osteoarthritis, unspecified site; R04.0 Epistaxis; I50.9 Heart failure, unspecified; I25.10 Atherosclerotic heart disease of native coronary artery without angina pectoris; I25.2 Old myocardial infarction; Z23 Encounter for immunization; Z87.442 Personal history of urinary calculi; Z79.82 Long term (current) use of aspirin; Z79.899 Other long term (current) drug therapy; Z91.040 Latex allergy status; Z91.011 Allergy to milk products; Z95.1 Presence of aortocoronary bypass graft
CPT/HCPCS: 36415; 71010; 76770; 78580; 80048; 80053; 81001; 82550; 83735; 83880; 84100; 84484; 85007; 85014; 85018; 85025; 85049; 85379; 85520; 85610; 85730; 90686; 93005; 93010; 93306; 93925; 93970; 94640; 94660; 94760; A9540; J1644; J1956; J2930; J7030

== ENCOUNTER 2018-06-17 15:56 | Inpatient (IN) | payer MEDICARE ==
[2018-06-17] MEDS ORDERED: MAGNESIUM SULFATE 2GM/50ML 2 GM/50 ML BAG IV ONE ×2 (16:11→16:22)
[2018-06-17] MEDS ORDERED: SOLU-Medrol ONE (16:11)
[2018-06-17] MEDS ORDERED: SOLU-Medrol IV ONE (16:22)
--- NOTE | 2018-06-17 17:29 | XRay Report ---
PROCEDURE: XR CHEST 1V AP TECHNIQUE: AP chest HISTORY: Dyspnea COMPARISONS: Chest x-ray January 23, 2018 FINDINGS: Trachea midline. Heart size top normal. Atherosclerotic calcification of the aorta. Stable appearance . No pneumothorax. No sizable effusion. No acute airspace disease No acute bony abnormality. Status post sternotomy IMPRESSION: No acute pulmonary disease. This document is electronically signed by Vincent York MD., Jun 17 2018 05:27:25 PM ET
[2018-06-17 18:20] LABS: Basophils % (Auto) 0.5 % (0.0-1.8); Eosinophils % (Auto) 0.7 % (0.0-4.3); Hematocrit 37.8 % (30.3-42.9); Hemoglobin 12.4 gm/dl (10.1-14.3); Lymphocytes # (Auto) 1.5 K/mm3 (1.2-5.4); Mean Corpuscular HGB Conc 33 % (30-34); Mean Corpuscular Volume 84 fl (79-97); Monocytes # (Auto) 0.5 K/mm3 (0.0-0.8); Monocytes % (Auto) 6.6 % (0.0-7.3); Platelet Count 189 K/mm3 (140-440); Red Blood Count 4.52 M/mm3 (3.65-5.03); Red Cell Distribution Width 14.9 % (13.2-15.2)
[2018-06-17 18:40] LABS: Albumin 3.6 g/dL (3.9-5); Calcium 9.1 mg/dL (8.4-10.2)
[2018-06-17] MEDS ORDERED: NORCO 5/325 PO ONE (19:21)
--- NOTE | 2018-06-17 20:11 | Emergency Department Report ---
HPI <CHERRI WEBBER III - Last Filed: 06/17/18 22:43> - HPI HPI: 78-year-old female presents to the emergency Department from the office of her vascular surgeon with a complaint of shortness of breath, wheezing. The patient was at the office of Dr. Rivera for some type of procedure to take care of her peripheral arterial disease and a chronic discoloration and vascular issue of one of the toes on her right foot. While the patient was on the "table" she began having coughing fits and some shortness of breath. The patient does have a history of COPD and is oxygen dependent at home. She also has history of hypertension and elevated cholesterol levels. She was given a small breathing treatment in route with EMS. No recent travel or sick contacts at home. She is a former smoker. <CHARIS MEYERS - Last Filed: 06/19/18 10:02> - General Chief Complaint: Dyspnea/Respdistress Time Seen by Provider: 06/17/18 16:26 ED Past Medical Hx <CHERRI WEBBER III - Last Filed: 06/17/18 22:43> - Past Medical History Previous Medical History?: Yes Hx Hypertension: Yes Hx Heart Attack/AMI: Yes Hx Congestive Heart Failure: Yes Hx Diabetes: Yes Hx Renal Disease: Yes Hx Arthritis: Yes Hx Kidney Stones: Yes Hx Asthma: Yes Hx COPD: Yes Hx HIV: No Additional medical history: facial tic - Surgical History Past Surgical History?: Yes Hx Open Heart Surgery: Yes Additional Surgical History: right knee surgery, right/left foot surgery, left hip surgery - Social History Smoking Status: Former Smoker <CHARIS MEYERS - Last Filed: 06/19/18 10:02> - Medications Home Medications: Home Medications Medication Instructions Recorded Confirmed Last Taken Type Ipratropium/Albuterol Sulfate 1 puff IH BID 01/23/18 06/17/18 Unknown History [Combivent Respimat] Allopurinol [Zyloprim] 100 mg PO QDAY #30 tablet 01/27/18 06/17/18 Unknown Rx Metoprolol [Lopressor TAB] 50 mg PO BID #60 tablet 01/27/18 06/17/18 Unknown Rx Montelukast [Singulair] 10 mg PO QPM #30 tablet 01/27/18 06/17/18 Unknown Rx Pravastatin [Pravachol] 40 mg PO QHS #30 tablet 01/27/18 06/17/18 Unknown Rx amLODIPine [Norvasc] 10 mg PO DAILY #30 tablet 01/27/18 06/17/18 Unknown Rx hydrALAZINE [Apresoline TAB] 100 mg PO TID #90 tab 01/27/18 06/17/18 Unknown Rx Aspirin 81 mg PO DAILY 06/17/18 06/17/18 Unknown History Famotidine [Pepcid] 20 mg PO BID 06/17/18 06/17/18 Unknown History traMADol [Ultram] 50 mg PO Q8H PRN 06/17/18 06/17/18 Unknown History ED Review of Systems ROS: Stated complaint: CRUZITO/FOOT PAIN Other details as noted in HPI <CHERRI WEBBER III - Last Filed: 06/17/18 22:43> ROS: Stated complaint: CRUZITO/FOOT PAIN Other details as noted in HPI Comment: All other systems reviewed and negative Constitutional: denies: chills, fever Eyes: denies: eye pain, vision change ENT: denies: ear pain, throat pain Respiratory: cough, shortness of breath, wheezing Cardiovascular: denies: chest pain, palpitations Gastrointestinal: denies: abdominal pain, vomiting Genitourinary: denies: dysuria, discharge Musculoskeletal: denies: back pain, arthralgia Skin: denies: rash, lesions Neurological: denies: headache, weakness <CHARIS MEYERS - Last Filed: 06/19/18 10:02> Physical Exam - Physical Exam Vital Signs: Vital Signs 06/17/18 06/17/18 06/17/18 16:12 16:15 16:17 Pulse Rate 70 70 Pulse Rate [ 87 Bilateral] Pulse Rate [ 88 Throughout] Respiratory 21 28 H Rate Respiratory 24 Rate [Bilateral ] Respiratory 16 Rate [ Throughout] Blood Pressure 135/81 158/67 O2 Sat by Pulse 94 100 Oximetry 06/17/18 06/17/18 06/17/18 16:31 16:45 17:01 Pulse Rate 69 68 69 Pulse Rate [ Bilateral] Pulse Rate [ Throughout] Respiratory 26 H 21 18 Rate Respiratory Rate [Bilateral ] Respiratory Rate [ Throughout] Blood Pressure 154/83 156/70 147/78 O2 Sat by Pulse 100 100 99 Oximetry 06/17/18 06/17/18 06/17/18 17:31 17:45 18:01 Pulse Rate 71 75 76 Pulse Rate [ Bilateral] Pulse Rate [ Throughout] Respiratory 22 18 18 Rate Respiratory Rate [Bilateral ] Respiratory Rate [ Throughout] Blood Pressure 139/59 150/79 145/77 O2 Sat by Pulse 99 95 87 Oximetry 06/17/18 06/17/18 06/17/18 18:15 18:30 18:45 Pulse Rate 80 78 86 Pulse Rate [ Bilateral] Pulse Rate [ Throughout] Respiratory 19 20 22 Rate Respiratory Rate [Bilateral ] Respiratory Rate [ Throughout] Blood Pressure 145/69 150/75 152/93 O2 Sat by Pulse 88 89 89 Oximetry 06/17/18 06/17/18 06/17/18 19:09 19:15 20:45 Pulse Rate 88 75 Pulse Rate [ Bilateral] Pulse Rate [ Throughout] Respiratory 24 Rate Respiratory Rate [Bilateral ] Respiratory Rate [ Throughout] Blood Pressure 150/75 154/72 152/93 O2 Sat by Pulse 88 90 97 Oximetry 06/17/18 06/17/18 06/17/18 21:01 21:15 21:31 Pulse Rate 83 81 76 Pulse Rate [ Bilateral] Pulse Rate [ Throughout] Respiratory 25 H 26 H 21 Rate Respiratory Rate [Bilateral ] Respiratory Rate [ Throughout] Blood Pressure 152/93 150/58 150/58 O2 Sat by Pulse 97 96 96 Oximetry 06/17/18 06/17/18 21:45 22:01 Pulse Rate 78 Pulse Rate [ Bilateral] Pulse Rate [ Throughout] Respiratory 16 15 Rate Respiratory Rate [Bilateral ] Respiratory Rate [ Throughout] Blood Pressure 150/58 150/58 O2 Sat by Pulse 98 98 Oximetry <CHERRI WEBBER III - Last Filed: 06/17/18 22:43> - Physical Exam Vital Signs: Vital Signs 06/17/18 06/17/18 06/17/18 16:12 16:15 16:17 Pulse Rate 70 70 Pulse Rate [ 87 Bilateral] Pulse Rate [ 88 Throughout] Respiratory 21 28 H Rate Respiratory 24 Rate [Bilateral ] Respiratory 16 Rate [ Throughout] Blood Pressure 135/81 158/67 O2 Sat by Pulse 94 100 Oximetry 06/17/18 06/17/18 06/17/18 16:31 16:45 17:01 Pulse Rate 69 68 69 Pulse Rate [ Bilateral] Pulse Rate [ Throughout] Respiratory 26 H 21 18 Rate Respiratory Rate [Bilateral ] Respiratory Rate [ Throughout] Blood Pressure 154/83 156/70 147/78 O2 Sat by Pulse 100 100 99 Oximetry 06/17/18 06/17/18 06/17/18 17:31 17:45 18:01 Pulse Rate 71 75 76 Pulse Rate [ Bilateral] Pulse Rate [ Throughout] Respiratory 22 18 18 Rate Respiratory Rate [Bilateral ] Respiratory Rate [ Throughout] Blood Pressure 139/59 150/79 145/77 O2 Sat by Pulse 99 95 87 Oximetry 06/17/18 06/17/18 06/17/18 18:15 18:30 18:45 Pulse Rate 80 78 86 Pulse Rate [ Bilateral] Pulse Rate [ Throughout] Respiratory 19 20 22 Rate Respiratory Rate [Bilateral ] Respiratory Rate [ Throughout] Blood Pressure 145/69 150/75 152/93 O2 Sat by Pulse 88 89 89 Oximetry 06/17/18 06/17/18 19:09 19:15 Pulse Rate 88 Pulse Rate [ Bilateral] Pulse Rate [ Throughout] Respiratory 24 Rate Respiratory Rate [Bilateral ] Respiratory Rate [ Throughout] Blood Pressure 150/75 154/72 O2 Sat by Pulse 88 90 Oximetry Physical Exam: GENERAL: The patient is well-developed well-nourished. HENT: Normocephalic. Atraumatic. Patient has moist mucous membranes. EYES: Extraocular motions are intact. Pupils equal reactive to light bilaterally. NECK: Supple. Trachea is midline. CHEST/LUNGS: Moderate to severe wheezing. The chest. Tachypnea with accessory muscle use. Conversational dyspnea. Clear to auscultation. There is respiratory distress noted. HEART/CARDIOVASCULAR: Regular. There is no tachycardia. There is no murmur. ABDOMEN: Abdomen is soft, nontender. Patient has normal bowel sounds. There is no abdominal distention. SKIN: Skin is warm and dry. There is darkening of the toes of the right foot. NEURO: The patient is awake, alert, and oriented. The patient is cooperative. The patient has no focal neurologic deficits. MUSCULOSKELETAL: There is no tenderness or deformity. There is no limitation range of motion. There is no evidence of acute injury. <CHARIS MEYERS S - Last Filed: 06/19/18 10:02> ED Course Vital Signs 06/17/18 06/17/18 06/17/18 16:12 16:15 16:17 Pulse Rate 70 70 Pulse Rate [ 87 Bilateral] Pulse Rate [ 88 Throughout] Respiratory 21 28 H Rate Respiratory 24 Rate [Bilateral ] Respiratory 16 Rate [ Throughout] Blood Pressure 135/81 158/67 O2 Sat by Pulse 94 100 Oximetry 06/17/18 06/17/18 06/17/18 16:31 16:45 17:01 Pulse Rate 69 68 69 Pulse Rate [ Bilateral] Pulse Rate [ Throughout] Respiratory 26 H 21 18 Rate Respiratory Rate [Bilateral ] Respiratory Rate [ Throughout] Blood Pressure 154/83 156/70 147/78 O2 Sat by Pulse 100 100 99 Oximetry 06/17/18 06/17/18 06/17/18 17:31 17:45 18:01 Pulse Rate 71 75 76 Pulse Rate [ Bilateral] Pulse Rate [ Throughout] Respiratory 22 18 18 Rate Respiratory Rate [Bilateral ] Respiratory Rate [ Throughout] Blood Pressure 139/59 150/79 145/77 O2 Sat by Pulse 99 95 87 Oximetry 06/17/18 06/17/18 06/17/18 18:15 18:30 18:45 Pulse Rate 80 78 86 Pulse Rate [ Bilateral] Pulse Rate [ Throughout] Respiratory 19 20 22 Rate Respiratory Rate [Bilateral ] Respiratory Rate [ Throughout] Blood Pressure 145/69 150/75 152/93 O2 Sat by Pulse 88 89 89 Oximetry 06/17/18 06/17/18 06/17/18 19:09 19:15 20:45 Pulse Rate 88 75 Pulse Rate [ Bilateral] Pulse Rate [ Throughout] Respiratory 24 Rate Respiratory Rate [Bilateral ] Respiratory Rate [ Throughout] Blood Pressure 150/75 154/72 152/93 O2 Sat by Pulse 88 90 97 Oximetry 06/17/18 06/17/18 06/17/18 21:01 21:15 21:31 Pulse Rate 83 81 76 Pulse Rate [ Bilateral] Pulse Rate [ Throughout] Respiratory 25 H 26 H 21 Rate Respiratory Rate [Bilateral ] Respiratory Rate [ Throughout] Blood Pressure 152/93 150/58 150/58 O2 Sat by Pulse 97 96 96 Oximetry 06/17/18 06/17/18 21:45 22:01 Pulse Rate 78 Pulse Rate [ Bilateral] Pulse Rate [ Throughout] Respiratory 16 15 Rate Respiratory Rate [Bilateral ] Respiratory Rate [ Throughout] Blood Pressure 150/58 150/58 O2 Sat by Pulse 98 98 Oximetry - Consultations Consultation #2: Hospitalist consulted for admission. Hospitalist to admit patient. Hospitalist to assume care patient. Dr. Arteaga to see patient <CHERRI WEBBER III - Last Filed: 06/17/18 22:43> Vital Signs 06/17/18 06/17/18 06/17/18 16:12 16:15 16:17 Pulse Rate 70 70 Pulse Rate [ 87 Bilateral] Pulse Rate [ 88 Throughout] Respiratory 21 28 H Rate Respiratory 24 Rate [Bilateral ] Respiratory 16 Rate [ Throughout] Blood Pressure 135/81 158/67 O2 Sat by Pulse 94 100 Oximetry 06/17/18 06/17/18 06/17/18 16:31 16:45 17:01 Pulse Rate 69 68 69 Pulse Rate [ Bilateral] Pulse Rate [ Throughout] Respiratory 26 H 21 18 Rate Respiratory Rate [Bilateral ] Respiratory Rate [ Throughout] Blood Pressure 154/83 156/70 147/78 O2 Sat by Pulse 100 100 99 Oximetry 06/17/18 06/17/18 06/17/18 17:31 17:45 18:01 Pulse Rate 71 75 76 Pulse Rate [ Bilateral] Pulse Rate [ Throughout] Respiratory 22 18 18 Rate Respiratory Rate [Bilateral ] Respiratory Rate [ Throughout] Blood Pressure 139/59 150/79 145/77 O2 Sat by Pulse 99 95 87 Oximetry 06/17/18 06/17/18 06/17/18 18:15 18:30 18:45 Pulse Rate 80 78 86 Pulse Rate [ Bilateral] Pulse Rate [ Throughout] Respiratory 19 20 22 Rate Respiratory Rate [Bilateral ] Respiratory Rate [ Throughout] Blood Pressure 145/69 150/75 152/93 O2 Sat by Pulse 88 89 89 Oximetry 06/17/18 06/17/18 19:09 19:15 Pulse Rate 88 Pulse Rate [ Bilateral] Pulse Rate [ Throughout] Respiratory 24 Rate Respiratory Rate [Bilateral ] Respiratory Rate [ Throughout] Blood Pressure 150/75 154/72 O2 Sat by Pulse 88 90 Oximetry - Consultations Consultation #1: 06/17/18 20:10 I spoke the patient's vascular surgeon, Dr Rivera, who says that the discoloration of her toe and her foot pain is a chronic issue and the patient can follow up regarding this outpatient after she is discharged. <CHARIS MEYERS - Last Filed: 06/19/18 10:02> ED Medical Decision Making - Lab Data Result diagrams: 06/17/18 17:50 06/17/18 17:50 <CHERRI WEBBER III - Last Filed: 06/17/18 22:43> - Lab Data Result diagrams: 06/17/18 17:50 06/18/18 05:07 - EKG Data -: EKG Interpreted by Me EKG shows normal: sinus rhythm, axis, intervals, QRS complexes, ST-T waves (diffuse T-wave inversions) Rate: normal - EKG Data When compared to previous EKG there are: previous EKG unavailable Interpretation: other (sinus rhythm, normal axis, diffuse T-wave inversions) - Radiology Data Radiology results: report reviewed, image reviewed interpreted by me: Chest x-ray does not show any acute process. There are no pleural effusions, obvious pneumonia and there is no pneumothorax. PROCEDURE: NM LUNG SCAN PERF/VENT HISTORY: SOB, elevated dimer FINDINGS: Ventilation perfusion scan was performed following the injection of 5.3 mCi technetium 99m labeled macroaggregated of and inflammation of 17.2 mCi xenon-133. No focal perfusion defect is seen. Ventilation is somewhat heterogeneous which could represent COPD or which could be due to technical factors. Impression: No scintigraphic evidence of pulmonary thromboembolic disease This document is electronically signed by Norman Qureshi MD., Jun 17 2018 08:54:25 PM ET Transcribed By: CELINA Dictated By: NORMAN QURESHI MD Electronically Authenticated By: NORMAN QURESHI MD Signed Date/Time: 06/17/182055 - Medical Decision Making Patient presents with moderate to severe bronchospasm with some mild respiratory distress at first. However after long breathing treatments, the patient did not require BiPAP or intubation and had some improvement. Chest x-ray did not show any focal consolidation, pneumothorax, pneumonia, pleural effusions, or any other acute processes. The patient's labs were grossly unremarkable except for chronic kidney disease, and elevated d-dimer level. VQ scan was done and was negative for pulmonary embolus. Patient received Solu-Medrol, magnesium and these pretreatments and while she had some improvement she still has moderate bronchospasm and worsens with any, even mild, exertion. For this reason the patient will be admitted to hospital for further evaluation and treatment. - Differential Diagnosis COPD, asthma, pneumonia, PE <CHARIS MEYERS - Last Filed: 06/19/18 10:02> Critical care attestation.: If time is entered above; I have spent that time in minutes in the direct care of this critically ill patient, excluding procedure time. <CHERRI WEBBER III - Last Filed: 06/17/18 22:43> Critical care attestation.: If time is entered above; I have spent that time in minutes in the direct care of this critically ill patient, excluding procedure time. <CHARIS MEYERS - Last Filed: 06/19/18 10:02> ED Disposition Is pt being admited?: Yes Does the pt Need Aspirin: No <CHERRI WEBBER III - Last Filed: 06/17/18 22:43> Is pt being admited?: Yes Time of Disposition: 20:11 <CHARIS MEYERS S - Last Filed: 06/19/18 10:02> Clinical Impression: COPD exacerbation CKD (chronic kidney disease) Qualifiers: Chronic kidney disease stage: unspecified stage Qualified Code(s): N18.9 - Chronic kidney disease, unspecified COPD (chronic obstructive pulmonary disease) Qualifiers: COPD type: COPD with acute exacerbation Qualified Code(s): J44.1 - Chronic obstructive pulmonary disease with (acute) exacerbation Disposition: 09 OP ADMIT IP TO THIS HOSP Condition: Critical
--- NOTE | 2018-06-17 20:56 | Nuclear Medicine Report ---
PROCEDURE: NM LUNG SCAN PERF/VENT HISTORY: SOB, elevated dimer FINDINGS: Ventilation perfusion scan was performed following the injection of 5.3 mCi technetium 99m labeled macroaggregated of and inflammation of 17.2 mCi xenon-133. No focal perfusion defect is seen. Ventilation is somewhat heterogeneous which could represent COPD o r which could be due to technical factors. Impression: No scintigraphic evidence of pulmonary thromboembolic disease This document is electronically signed by Norman Qureshi MD., Jun 17 2018 08:54:25 PM ET
[2018-06-17] MEDS ORDERED: DUONEB *Not for PRN Use IH ONE (23:13)
[2018-06-17] MEDS ORDERED: TYLENOL PO PRN (23:37)
[2018-06-17] MEDS ORDERED: NORCO 5/325 PO PRN (23:37)
[2018-06-17] MEDS ORDERED: ZOFRAN IV PRN (23:37)
[2018-06-18] MEDS ORDERED: SOLU-Medrol ONE (01:17)
[2018-06-18] MEDS ORDERED: MUCINEX ER PO ONE (01:18)
[2018-06-18] MEDS ORDERED: DUONEB *Not for PRN Use IH ONE (01:18)
[2018-06-18] MEDS: ZITHROMAX 500 MG in NACL 0.9% 250ML 250 ML IV SCH (01:22)
[2018-06-18] MEDS: MUCINEX ER PO SCH ×2 (01:22→12:53)
[2018-06-18] MEDS: SOLU-Medrol IV SCH ×4 (01:23→17:40)
[2018-06-18] MEDS: DUONEB *Not for PRN Use IH SCH ×6 (01:36→19:49)
--- NOTE | 2018-06-18 02:10 | History and Physical Report ---
History of Present Illness Date of examination: 06/17/18 Date of admission: 06/17/18 23:37 Chief complaint: Shortness of breath History of present illness: Patient is a 78-year-old -[place] female with history of COPD on home oxygen who presented to the ED on account of few weeks history of worsening shortness of breath. She has associated cough productive of yellow sputum, sore throat and lightheadedness. She also has positive history of right foot sw elling. She denies chest pain, fever, chills, palpitation, runny nose/congestion, orthopnea or PND. No headaches, nausea, vomiting, syncope or loss of consciousness. No abdominal pain, constipation, diarrhea, bleeding from any orifice, dysuria or frequency. Past History Past Medical History: CAD, COPD (on home oxygen 2 L), hypertension, PVD, other (gout) Past Surgical History: CABG, Other (arterial stent placement, feet surgery) Social history: smoking (smoked cigarettes for 30 years but quit about a year ago. She denies alcohol or illicit drug use) Family history: other (reviewed and noncontributory) Medications and Allergies Allergies Allergy/AdvReac Type Severity Reaction Status Date / Time latex Allergy Hives Verified 01/23/18 09:20 milk Allergy Rash Verified 01/23/18 09:20 Home Medications Medication Instructions Recorded Confirmed Last Taken Type Ipratropium/Albuterol Sulfate 1 puff IH BID 01/23/18 06/17/18 Unknown History [Combivent Respimat] Allopurinol [Zyloprim] 100 mg PO QDAY #30 tablet 01/27/18 06/17/18 Unknown Rx Metoprolol [Lopressor TAB] 50 mg PO BID #60 tablet 01/27/18 06/17/18 Unknown Rx Montelukast [Singulair] 10 mg PO QPM #30 tablet 01/27/18 06/17/18 Unknown Rx Pravastatin [Pravachol] 40 mg PO QHS #30 tablet 01/27/18 06/17/18 Unknown Rx amLODIPine [Norvasc] 10 mg PO DAILY #30 tablet 01/27/18 06/17/18 Unknown Rx hydrALAZINE [Apresoline TAB] 100 mg PO TID #90 tab 01/27/18 06/17/18 Unknown Rx Aspirin 81 mg PO DAILY 06/17/18 06/17/18 Unknown History Famotidine [Pepcid] 20 mg PO BID 06/17/18 06/17/18 Unknown History traMADol [Ultram] 50 mg PO Q8H PRN 06/17/18 06/17/18 Unknown History Active Meds: Active Medications Acetaminophen (Tylenol) 650 mg PO Q4H PRN PRN Reason: Pain MILD(1-3)/Fever >100.5/HERRMANN Acetaminophen/Hydrocodone Bitart ([place] 5/325) 1 each PO Q6H PRN PRN Reason: Pain, Moderate (4-6) Albuterol/Ipratropium (Duoneb *Not For Prn Use*) 1 ampul IH Q4HRT [facility] Last Admin: 06/18/18 01:36 Dose: Not Given Documented by: Guaifenesin (Mucinex Er) 600 mg PO BID [facility] Last Admin: 06/18/18 01:22 Dose: 600 mg Documented by: Heparin Sodium (Porcine) (Heparin) 5,000 unit SUB-Q Q12HR [facility] Sodium Chloride (Nacl 0.9% 1000 Ml) 1,000 mls @ 100 mls/hr IV DIRECT [facility] Azithromycin 500 mg/ Sodium (Chloride) 250 mls @ 250 mls/hr IV Q24HR@2200 [facility] Stop: 06/22/18 23:55 Last Admin: 06/18/18 01:22 Dose: 250 mls/hr Documented by: Methylprednisolone Sodium Succinate (Solu-Medrol) 125 mg IV Q6HR [facility] Last Admin: 06/18/18 01:23 Dose: 125 mg Documented by: Ondansetron HCl (Zofran) 4 mg IV Q8H PRN PRN Reason: Nausea And Vomiting Sodium Chloride (Sodium Chloride Flush Syringe 10 Ml) 10 ml IV BID [facility] Sodium Chloride (Sodium Chloride Flush Syringe 10 Ml) 10 ml IV PRN PRN PRN Reason: LINE FLUSH Review of Systems All systems: negative (except as documented in the HPI, all other systems were reviewed and negative) Exam - Constitutional Vitals: Temp Pulse Resp BP Pulse Ox 78 15 150/58 98 06/17/18 21:45 06/17/18 22:01 06/17/18 22:01 06/17/18 22:01 General appearance: Present: mild distress - EENT Eyes: Present: PERRL, EOM intact ENT: hearing intact, clear oral mucosa - Neck Neck: Present: supple, normal ROM - Respiratory Respiratory effort: labored Respiratory: bilateral: CTA - Cardiovascular Rhythm: regular Heart Sounds: Present: S1 & S2. Absent: rub, click - Extremities Extremities: pulses symmetrical Extremity abnormal: edema (in RT foot and toes) - Abdominal General gastrointestinal: Present: soft, non-tender, non-distended, normal bowel sounds Female genitourinary: Present: deferred - Integumentary Integumentary: Present: clear, warm, dry - Musculoskeletal Musculoskeletal: gait normal, strength equal bilaterally - Psychiatric Psychiatric: appropriate mood/affect, intact judgment & insight - Neurologic Neurologic: CNII-XII intact, moves all extremities Results - Labs CBC & Chem 7: 06/17/18 17:50 06/17/18 17:50 Labs: Laboratory Last Values WBC 7.2 K/mm3 (4.5-11.0) 06/17/18 17:50 RBC 4.52 M/mm3 (3.65-5.03) 06/17/18 17:50 Hgb 12.4 gm/dl (10.1-14.3) 06/17/18 17:50 Hct 37.8 % (30.3-42.9) 06/17/18 17:50 MCV 84 fl (79-97) 06/17/18 17:50 MCH 27 pg (28-32) L 06/17/18 17:50 MCHC 33 % (30-34) 06/17/18 17:50 RDW 14.9 % (13.2-15.2) 06/17/18 17:50 Plt Count 189 K/mm3 (140-440) 06/17/18 17:50 Lymph % (Auto) 21.0 % (13.4-35.0) 06/17/18 17:50 [place] % (Auto) 6.6 % (0.0-7.3) 06/17/18 17:50 Eos % (Auto) 0.7 % (0.0-4.3) 06/17/18 17:50 Baso % (Auto) 0.5 % (0.0-1.8) 06/17/18 17:50 Lymph # 1.5 K/mm3 (1.2-5.4) 06/17/18 17:50 [place] # 0.5 K/mm3 (0.0-0.8) 06/17/18 17:50 Eos # 0.0 K/mm3 (0.0-0.4) 06/17/18 17:50 Baso # 0.0 K/mm3 (0.0-0.1) 06/17/18 17:50 Seg Neutrophils % 71.2 % (40.0-70.0) H 06/17/18 17:50 Seg Neutrophils # 5.1 K/mm3 (1.8-7.7) 06/17/18 17:50 D-Dimer 686.12 ng/mlDDU (0-234) H 06/17/18 17:50 Sodium 140 mmol/L (137-145) 06/17/18 17:50 Potassium 4.1 mmol/L (3.6-5.0) 06/17/18 17:50 Chloride 104.5 mmol/L (98-107) 06/17/18 17:50 Carbon Dioxide 21 mmol/L (22-30) L 06/17/18 17:50 Anion Gap 19 mmol/L 06/17/18 17:50 BUN 21 mg/dL (7-17) H 06/17/18 17:50 Creatinine 1.6 mg/dL (0.7-1.2) H 06/17/18 17:50 Estimated GFR 38 ml/min 06/17/18 17:50 BUN/Creatinine Ratio 13 % 06/17/18 17:50 Glucose 118 mg/dL (65-100) H 06/17/18 17:50 Calcium 9.1 mg/dL (8.4-10.2) 06/17/18 17:50 Magnesium 2.70 mg/dL (1.7-2.3) H 06/17/18 17:50 Total Bilirubin 0.40 mg/dL (0.1-1.2) 06/17/18 17:50 AST 15 units/L (5-40) 06/17/18 17:50 ALT 15 units/L (7-56) 06/17/18 17:50 Alkaline Phosphatase 85 units/L (35-129) 06/17/18 17:50 Troponin T < 0.010 ng/mL (0.00-0.029) 06/17/18 23:55 Total Protein 6.3 g/dL (6.3-8.2) 06/17/18 17:50 Albumin 3.6 g/dL (3.9-5) L 06/17/18 17:50 Albumin/Globulin Ratio 1.3 % 06/17/18 17:50 Assessment and Plan Assessment and plan: Acute severe COPD exacerbation -Likely secondary to acute bronchitis -On IV steroids, Mucinex, antibiotic and nebulizer breathing treatments Acute on chronic hypoxemic respiratory failure -We'll continue oxygen supplementation as needed and nebulizer breathing treatments RT foot/toes swelling with pain -will do RT foot x-ray Hypertension -stable, we'll resume her home antihypertensives PVD/CAD -Stable, will resume home meds Gout -cont allopurinol DVT prophylaxis with heparin Disposition: for d/c when medically stable Time spent: 38 minutes
[2018-06-18] MEDS ORDERED: ULTRAM PO PRN (03:02)
[2018-06-18] MEDS: APRESOLINE PO SCH ×3 (03:40→15:31)
[2018-06-18] MEDS: NORVASC PO SCH ×2 (03:40→12:53)
[2018-06-18] MEDS: LOPRESSOR PO SCH ×2 (04:05→10:00)
[2018-06-18 05:37] LABS: Bilirubin,Urine NEG (Negative); Blood,Urine LG (Negative); Color,Urine Yellow (Yellow); Hyaline Casts,Urine 26 /LPF; Mucus,Urine FEW /HPF
[2018-06-18 05:39] LABS: RBC,Urine > 182.0 /HPF (0.0-6.0)
[2018-06-18] MEDS: NACL 0.9% 1000 ML 1,000 ML IV SCH ×2 (05:52→15:30)
[2018-06-18 06:55] LABS: Calcium 9.6 mg/dL (8.4-10.2)
--- NOTE | 2018-06-18 09:13 | XRay Report ---
Right foot 2 views: History: Right foot swelling with its lead in the stools. Findings: There is osteopenia. Soft tissue swelling/mass distal second toe with absorption/destruction of the intervening bone. Post-osteotomy changes at the distal first metatarsal. There is calcification identified within the medullary canal of the first metatarsal. No soft tissue swelling. Vascular calcifications. No periosteal reaction. No lytic lesion. Impression: Postsurgical changes distal right great toe. Soft tissue mass/swelling distal second toe with loss of distal part of the middle phalanx and the proximal part of the distal phalanx including the joint. No previous studies available for comparison. Additional findings as detailed above.
[2018-06-18] MEDS ORDERED: HEPARIN SUB-Q SCH (10:00)
[2018-06-18] MEDS ORDERED: PEPCID PO SCH (10:00)
[2018-06-18] MEDS ORDERED: ZITHROMAX 500 MG in NACL 0.9% 250ML 250 ML IV SCH (10:00)
--- NOTE | 2018-06-18 11:34 | Progress Note ---
<CHRISTEL LAWSON - Last Filed: 06/18/18 17:47> Assessment and Plan Assessment and plan: 78-year-old -[place] female with history of HLD, CAD, s/p CABG, s/p stent placenets, PVD, gout, right foot swelling, COPD on 2L [place] home oxygen who presented to the ED with c/o dyspnea which has progressively worsened over the past few weeks. She has associated cough productive of yellow sputum, sore throat and lightheadedness. She also c/o worsening right foot pain and swelling. Rt foot XR showed postsurgical changes distal right great toe; soft tissue mass/swelling distal second toe with loss of distal part of the middle phalanx and the proximal part of the distal phalanx including the joint. Acute exacerbation of COPD Acute on chronic respiratory failure Hypertension CAD/PVD History of gout CKD stage III Right Foot swelling History of PE- previously anticoagulated on L [place] Plan: Continue allopurinol Continue duo nebs Continue systemic steroids Continue supplemental oxygen weaned to baseline requirements as tolerated Start Lovenox 60 mg daily Continue statin Continue azithromycin to and on / Continue guaifenesin Monitor BP Continue antihypertensive medication to optimize BP Continue pain management Arterial Doppler pending Vascular consult pending Nephrology consult pending History Interval history: Pt is seen on the HEATH unit. She is on 3L [place] with saturation of 95%. She continues to have labored breathing with prolong expiratory phase. Right foot is warm to touch, tender with swelling. She continues to have intermittent productive cough. She denies fever, chills, hemoptysis, pain other than in the right foot. Hospitalist Physical - Constitutional Vitals: Temp Pulse Resp BP Pulse Ox 98.8 F 94 H 26 H 137/58 99 06/18/18 08:03 06/18/18 08:03 06/18/18 08:03 06/18/18 08:03 06/18/18 08:03 General appearance: Present: mild distress - EENT Eyes: Present: PERRL, EOM intact ENT: hearing intact, poor dentition - Neck Neck: Present: supple, normal ROM - Respiratory Respiratory effort: labored Respiratory: bilateral: diminished (bases), wheezing (scattered wheezing with poor air movement) - Cardiovascular Heart rate: 93 (bpm) Rhythm: regular Heart Sounds: Present: S1 & S2. 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) - Peripheral Assessment Right Foot Edema Type: Pitting Edema Degree: 2+ Peripheral Pulses: abnormal (diminished right pedal pulse) - Abdominal General gastrointestinal: soft, non-tender, normal bowel sounds - Integumentary Integumentary: Present: warm, dry - Psychiatric Psychiatric: cooperative Results - Labs CBC & Chem 7: 06/17/18 17:50 06/18/18 05:07 Labs: Laboratory Last Values WBC 7.2 K/mm3 (4.5-11.0) 06/17/18 17:50 RBC 4.52 M/mm3 (3.65-5.03) 06/17/18 17:50 Hgb 12.4 gm/dl (10.1-14.3) 06/17/18 17:50 Hct 37.8 % (30.3-42.9) 06/17/18 17:50 MCV 84 fl (79-97) 06/17/18 17:50 MCH 27 pg (28-32) L 06/17/18 17:50 MCHC 33 % (30-34) 06/17/18 17:50 RDW 14.9 % (13.2-15.2) 06/17/18 17:50 Plt Count 189 K/mm3 (140-440) 06/17/18 17:50 Lymph % (Auto) 21.0 % (13.4-35.0) 06/17/18 17:50 [place] % (Auto) 6.6 % (0.0-7.3) 06/17/18 17:50 Eos % (Auto) 0.7 % (0.0-4.3) 06/17/18 17:50 Baso % (Auto) 0.5 % (0.0-1.8) 06/17/18 17:50 Lymph # 1.5 K/mm3 (1.2-5.4) 06/17/18 17:50 [place] # 0.5 K/mm3 (0.0-0.8) 06/17/18 17:50 Eos # 0.0 K/mm3 (0.0-0.4) 06/17/18 17:50 Baso # 0.0 K/mm3 (0.0-0.1) 06/17/18 17:50 Seg Neutrophils % 71.2 % (40.0-70.0) H 06/17/18 17:50 Seg Neutrophils # 5.1 K/mm3 (1.8-7.7) 06/17/18 17:50 D-Dimer 686.12 ng/mlDDU (0-234) H 06/17/18 17:50 Sodium 140 mmol/L (137-145) 06/18/18 05:07 Potassium 4.6 mmol/L (3.6-5.0) 06/18/18 05:07 Chloride 103.3 mmol/L (98-107) 06/18/18 05:07 Carbon Dioxide 19 mmol/L (22-30) L 06/18/18 05:07 Anion Gap 22 mmol/L 06/18/18 05:07 BUN 27 mg/dL (7-17) H 06/18/18 05:07 Creatinine 1.8 mg/dL (0.7-1.2) H 06/18/18 05:07 Estimated GFR 33 ml/min 06/18/18 05:07 BUN/Creatinine Ratio 15 % 06/18/18 05:07 Glucose 241 mg/dL (65-100) H 06/18/18 05:07 Calcium 9.6 mg/dL (8.4-10.2) 06/18/18 05:07 Magnesium 2.70 mg/dL (1.7-2.3) H 06/17/18 17:50 Total Bilirubin 0.40 mg/dL (0.1-1.2) 06/17/18 17:50 AST 15 units/L (5-40) 06/17/18 17:50 ALT 15 units/L (7-56) 06/17/18 17:50 Alkaline Phosphatase 85 units/L (35-129) 06/17/18 17:50 Troponin T < 0.010 ng/mL (0.00-0.029) 06/18/18 05:07 Total Protein 6.3 g/dL (6.3-8.2) 06/17/18 17:50 Albumin 3.6 g/dL (3.9-5) L 06/17/18 17:50 Albumin/Globulin Ratio 1.3 % 06/17/18 17:50 Urine Color Yellow (Yellow) 06/18/18 04:00 Urine Turbidity Slightly-cloudy (Clear) 06/18/18 04:00 Urine pH 5.0 (5.0-7.0) 06/18/18 04:00 Ur Specific [place] 1.025 (1.003-1.030) 06/18/18 04:00 Urine Protein 30 mg/dl mg/dL (Negative) 06/18/18 04:00 Urine Glucose (UA) Neg mg/dL (Negative) 06/18/18 04:00 Urine Ketones Tr mg/dL (Negative) 06/18/18 04:00 Urine Blood Lg (Negative) 06/18/18 04:00 Urine Nitrite Neg (Negative) 06/18/18 04:00 Urine Bilirubin Neg (Negative) 06/18/18 04:00 Urine Urobilinogen 2.0 mg/dL (<2.0) 06/18/18 04:00 Ur Leukocyte Esterase Neg (Negative) 06/18/18 04:00 Urine WBC (Auto) 3.0 /HPF (0.0-6.0) 06/18/18 04:00 Urine RBC (Auto) > 182.0 /HPF (0.0-6.0) 06/18/18 04:00 U Epithel Cells (Auto) 1.0 /HPF (0-13.0) 06/18/18 04:00 Hyaline Casts 26 /LPF 06/18/18 04:00 Urine Mucus Few /HPF 06/18/18 04:00 Active Medications - Current Medications Current Medications: Generic Name Dose Route Start Last Admin Trade Name Freq PRN Reason Stop Dose Admin Acetaminophen 650 mg 06/17/18 23:37 Tylenol PO Q4H PRN Pain MILD(1-3)/Fever >100.5/HERRMANN Albuterol/Ipratropium 1 ampul 06/18/18 00:00 06/18/18 07:49 Duoneb *Not For Prn Use* IH 1 ampul Q4HRT KVNG Administration Allopurinol 100 mg 06/18/18 10:00 Zyloprim PO QDAY KVNG Amlodipine Besylate 10 mg 06/18/18 03:02 06/18/18 03:40 Norvasc PO 10 mg DAILY KVNG Administration Aspirin 81 mg 06/18/18 10:00 Baby Aspirin PO DAILY [facility] Famotidine 10 mg 06/18/18 10:00 Pepcid PO BID KVNG Guaifenesin 600 mg 06/17/18 23:45 06/18/18 01:22 Mucinex Er PO 600 mg BID KVNG Administration Heparin Sodium (Porcine) 5,000 unit 06/18/18 10:00 Heparin SUB-Q Q12HR KVNG Hydralazine HCl 100 mg 06/18/18 03:03 06/18/18 03:40 Apresoline PO 100 mg TID KVNG Administration Sodium Chloride 1,000 mls @ 100 mls/hr 06/17/18 23:45 06/18/18 05:52 Nacl 0.9% 1000 Ml IV 100 mls/hr DIRECT KVNG Administration Azithromycin 500 mg/ Sodium 250 mls @ 250 mls/hr 06/17/18 23:56 06/18/18 01:22 Chloride IV 06/22/18 23:55 250 mls/hr Q24HR@2200 KVNG Administration Methylprednisolone Sodium Succinate 125 mg 06/18/18 00:00 06/18/18 06:55 Solu-Medrol IV 125 mg Q6HR KVNG Administration Metoprolol Tartrate 50 mg 06/18/18 04:00 06/18/18 04:05 Lopressor PO 50 mg BID KVNG Administration Montelukast Sodium 10 mg 06/18/18 18:00 Singulair PO QPM KVNG Ondansetron HCl 4 mg 06/17/18 23:37 Zofran IV Q8H PRN Nausea And Vomiting Pravastatin Sodium 40 mg 06/18/18 22:00 Pravachol PO QHS [facility] Sodium Chloride 10 ml 06/18/18 10:00 Sodium Chloride Flush Syringe 10 Ml IV BID KVNG Sodium Chloride 10 ml 06/17/18 23:37 Sodium Chloride Flush Syringe 10 Ml IV PRN PRN LINE FLUSH Tramadol HCl 50 mg 06/18/18 03:02 Ultram PO Q8H PRN Pain <HANSEL MOLINA M - Last Filed: 06/20/18 19:16> Assessment and Plan Assessment and plan: I saw and evaluated the patient. I agree with the findings and the plan of care as documented in the Nurse Practitioner's~note, with the following corrections and additions. claudication; awaiting vasc sx consult cont breathing rx cont anticoagulation, Hospitalist Physical - Constitutional Vitals: Temp Pulse Resp BP Pulse Ox 97.7 F 102 H 21 171/91 94 06/20/18 13:25 06/20/18 14:05 06/20/18 16:43 06/20/18 13:25 06/20/18 13:25 Results - Labs CBC & Chem 7: 06/19/18 13:34 06/20/18 10:47 Labs: Laboratory Last Values WBC 7.2 K/mm3 (4.5-11.0) 06/17/18 17:50 RBC 4.52 M/mm3 (3.65-5.03) 06/17/18 17:50 Hgb 11.3 gm/dl (10.1-14.3) 06/19/18 13:34 Hct 35.4 % (30.3-42.9) 06/19/18 13:34 MCV 84 fl (79-97) 06/17/18 17:50 MCH 27 pg (28-32) L 06/17/18 17:50 MCHC 33 % (30-34) 06/17/18 17:50 RDW 14.9 % (13.2-15.2) 06/17/18 17:50 Plt Count 196 K/mm3 (140-440) 06/19/18 13:34 Lymph % (Auto) 21.0 % (13.4-35.0) 06/17/18 17:50 [place] % (Auto) 6.6 % (0.0-7.3) 06/17/18 17:50 Eos % (Auto) 0.7 % (0.0-4.3) 06/17/18 17:50 Baso % (Auto) 0.5 % (0.0-1.8) 06/17/18 17:50 Lymph # 1.5 K/mm3 (1.2-5.4) 06/17/18 17:50 [place] # 0.5 K/mm3 (0.0-0.8) 06/17/18 17:50 Eos # 0.0 K/mm3 (0.0-0.4) 06/17/18 17:50 Baso # 0.0 K/mm3 (0.0-0.1) 06/17/18 17:50 Seg Neutrophils % 71.2 % (40.0-70.0) H 06/17/18 17:50 Seg Neutrophils # 5.1 K/mm3 (1.8-7.7) 06/17/18 17:50 PT 14.6 Sec. (12.2-14.9) 06/19/18 13:34 INR 1.07 (0.87-1.13) 06/19/18 13:34 APTT 94.9 Sec. (24.2-36.6) H* 06/19/18 13:34 D-Dimer 686.12 ng/mlDDU (0-234) H 06/17/18 17:50 Heparin Anti-Xa Level 0.68 U.I./ml (0.3-0.7) 06/19/18 20:40 POC ABG pH 7.320 (7.35-7.45) L 06/20/18 14:47 POC ABG pCO2 39.1 (35-45) 06/20/18 14:47 POC ABG pO2 87 (80-105) 06/20/18 14:47 POC ABG HCO3 20.1 (22-26 mml/L) 06/20/18 14:47 POC ABG Total CO2 21 (23-27mmol/L) 06/20/18 14:47 POC ABG O2 Sat 96 06/20/18 14:47 POC ABG Base Excess -6 ((-2) - (+3)mmol/L) 06/20/18 14:47 FiO2 21 % 06/20/18 14:47 Sodium 142 mmol/L (137-145) 06/20/18 06:06 Potassium 4.9 mmol/L (3.6-5.0) 06/20/18 10:47 Chloride 109.3 mmol/L (98-107) H 06/20/18 06:06 Carbon Dioxide 18 mmol/L (22-30) L 06/20/18 06:06 Anion Gap 20 mmol/L 06/20/18 06:06 BUN 40 mg/dL (7-17) H 06/20/18 06:06 Creatinine 1.8 mg/dL (0.7-1.2) H 06/20/18 06:06 Estimated GFR 33 ml/min 06/20/18 06:06 BUN/Creatinine Ratio 22 % 06/20/18 06:06 Glucose 148 mg/dL (65-100) H 06/20/18 06:06 Calcium 8.9 mg/dL (8.4-10.2) 06/20/18 06:06 Magnesium 2.70 mg/dL (1.7-2.3) H 06/17/18 17:50 Total Bilirubin 0.40 mg/dL (0.1-1.2) 06/17/18 17:50 AST 15 units/L (5-40) 06/17/18 17:50 ALT 15 units/L (7-56) 06/17/18 17:50 Alkaline Phosphatase 85 units/L (35-129) 06/17/18 17:50 Troponin T < 0.010 ng/mL (0.00-0.029) 06/18/18 05:07 Total Protein 6.3 g/dL (6.3-8.2) 06/17/18 17:50 Albumin 3.6 g/dL (3.9-5) L 06/17/18 17:50 Albumin/Globulin Ratio 1.3 % 06/17/18 17:50 TSH 0.147 mlU/mL (0.270-4.200) L 06/19/18 Unknown Free T4 1.26 ng/dL (0.76-1.46) 06/19/18 Unknown Thyroxine (T4) 6.6 ug/dL (4.0-12.0) 06/19/18 Unknown Urine Color Yellow (Yellow) 06/18/18 04:00 Urine Turbidity Slightly-cloudy (Clear) 06/18/18 04:00 Urine pH 5.0 (5.0-7.0) 06/18/18 04:00 Ur Specific [place] 1.025 (1.003-1.030) 06/18/18 04:00 Urine Protein 30 mg/dl mg/dL (Negative) 06/18/18 04:00 Urine Glucose (UA) Neg mg/dL (Negative) 06/18/18 04:00 Urine Ketones Tr mg/dL (Negative) 06/18/18 04:00 Urine Blood Lg (Negative) 06/18/18 04:00 Urine Nitrite Neg (Negative) 06/18/18 04:00 Urine Bilirubin Neg (Negative) 06/18/18 04:00 Urine Urobilinogen 2.0 mg/dL (<2.0) 06/18/18 04:00 Ur Leukocyte Esterase Neg (Negative) 06/18/18 04:00 Urine WBC (Auto) 3.0 /HPF (0.0-6.0) 06/18/18 04:00 Urine RBC (Auto) > 182.0 /HPF (0.0-6.0) 06/18/18 04:00 U Epithel Cells (Auto) 1.0 /HPF (0-13.0) 06/18/18 04:00 Hyaline Casts 26 /LPF 06/18/18 04:00 Urine Mucus Few /HPF 06/18/18 04:00 Active Medications - Current Medications Current Medications: Generic Name Dose Route Start Last Admin Trade Name Freq PRN Reason Stop Dose Admin Acetaminophen 650 mg 06/17/18 23:37 Tylenol PO Q4H PRN Pain MILD(1-3)/Fever >100.5/HERRMANN Albuterol 2.5 mg 06/18/18 15:46 Proventil IH Q4HRT PRN Shortness Of Breath Albuterol/Ipratropium 1 ampul 06/20/18 12:15 06/20/18 13:47 Duoneb *Not For Prn Use* IH 1 ampul Q6H KVNG Administration Allopurinol 100 mg 06/18/18 10:00 06/20/18 09:24 Zyloprim PO 100 mg QDAY KVNG Administration Amlodipine Besylate 10 mg 06/18/18 03:02 06/20/18 09:24 Norvasc PO 10 mg DAILY KVNG Administration Arformoterol Tartrate 15 mcg 06/20/18 12:15 06/20/18 12:17 Brovana Nebu IH Not Given Q12HRT KVNG Aspirin 81 mg 06/18/18 10:00 06/20/18 09:24 Baby Aspirin PO 81 mg DAILY KVNG Administration Azithromycin 500 mg 06/20/18 22:00 Zithromax PO QHS KVNG Budesonide 0.5 mg 06/20/18 20:00 Pulmicort IH Q12HRT KVNG Famotidine 10 mg 06/18/18 10:00 06/20/18 09:23 Pepcid PO 10 mg BID KVNG Administration Guaifenesin 600 mg 06/17/18 23:45 06/20/18 09:23 Mucinex Er PO 600 mg BID KVNG Administration Hydralazine HCl 100 mg 06/18/18 03:03 06/20/18 15:03 Apresoline PO 100 mg TID KVNG Administration Hydromorphone HCl 1 mg 06/19/18 12:01 06/20/18 16:43 Dilaudid IV 1 mg Q4H PRN Administration Pain , Severe (7-10) Heparin Sodium/Sodium Chloride 25,000 unit in 500 mls @ 14 mls/hr 06/19/18 1 2:00 06/19/18 15:16 Heparin/ 0.45% Nacl-25,000 Unit/500 Ml IV 700 units/hr TITR KVNG 14 mls/hr Administration Protocol 700 UNITS/HR Methylprednisolone Sodium Succinate 60 mg 06/20/18 20:00 Solu-Medrol IV Q8H [facility] Metoprolol Tartrate 50 mg 06/18/18 04:00 06/20/18 09:25 Lopressor PO 50 mg BID KVNG Administration Montelukast Sodium 10 mg 06/18/18 18:00 06/20/18 17:33 Singulair PO 10 mg QPM KVNG Administration Ondansetron HCl 4 mg 06/17/18 23:37 Zofran IV Q8H PRN Nausea And Vomiting Oxycodone/Acetaminophen 2 tab 06/19/18 12:01 Percocet 5/325 PO Q4H PRN Pain, Moderate (4-6) Pravastatin Sodium 40 mg 06/18/18 22:00 06/19/18 22:24 Pravachol PO 40 mg QHS KVNG Administration Sodium Bicarbonate 650 mg 06/19/18 22:00 06/20/18 09:23 Sodium Bicarbonate PO 650 mg BID KVNG Administration Sodium Chloride 10 ml 06/18/18 10:00 06/20/18 09:23 Sodium Chloride Flush Syringe 10 Ml IV 10 ml BID KVNG Administration Sodium Chloride 10 ml 06/17/18 23:37 06/20/18 16:44 Sodium Chloride Flush Syringe 10 Ml IV 10 ml PRN PRN Administration LINE FLUSH Warfarin Sodium 5 mg 06/20/18 17:00 06/20/18 16:47 Coumadin PO 5 mg DAILY@1700 KVNG Administration
[2018-06-18] MEDS: PEPCID PO SCH (12:52)
[2018-06-18] MEDS: BABY ASPIRIN PO SCH (12:53)
[2018-06-18] MEDS: ZYLOPRIM PO SCH (12:53)
[2018-06-18] MEDS: SODIUM CHLORIDE FLUSH SYRINGE 10 ML IV SCH (15:34)
[2018-06-18] MEDS ORDERED: PROVENTIL IH PRN (15:46)
[2018-06-18] MEDS: SINGULAIR PO SCH (17:39)
[2018-06-18] MEDS: SODIUM CHLORIDE FLUSH SYRINGE 10 ML IV PRN (17:40)
[2018-06-18] MEDS ORDERED: PERCOCET 5/325 PO PRN (18:27)
[2018-06-18] MEDS ORDERED: LOVENOX SUB-Q SCH ×2 (22:00)
[2018-06-19] MEDS: DUONEB *Not for PRN Use IH SCH ×6 (00:21→19:36)
[2018-06-19] MEDS: SOLU-Medrol IV SCH ×4 (05:31→23:09)
[2018-06-19] MEDS: NACL 0.9% 1000 ML 1,000 ML IV SCH (05:32)
[2018-06-19] MEDS ORDERED: LOVENOX SUB-Q SCH ×3 (10:00→22:00)
--- NOTE | 2018-06-19 11:45 | Vascular Lab Report ---
PROCEDURE: VL ARTERIAL DUPLEX LE BILAT TECHNIQUE: [place]za scale, color and pulsed Doppler ultrasound with color flow and spectral analysis eval uation of both lower extremities arteries were performed. HISTORY: claudication in rt foot with pain and swelling COMPARISONS: None currently available. FINDINGS: RIGHT EXTREMITY: Proximal STAFF RN, STAFF RN, SFA origin, proximal SFA, DFA, mid SFA, distal SFA, popliteal, distal popliteal, P TA, MOLINA, and peroneal velocities in cm/sec: 276, 145, 159, 94, 0, 82, 177, 204, 32, 0, 0, and 32. Possible stent edge at the distal right superficial femoral artery. LEFT EXTREMITY: Proximal STAFF RN, STAFF RN, SFA origin, proximal SFA, DFA, mid SFA, distal SFA, popliteal, distal popliteal, P TA, MOLINA, and peroneal velocities in cm/sec: 118, 95, 352, 58, 280, 62, 57, 56, 60, 0, 0, and 56. [place] phasic waveforms throughout. IMPRESSION: * Suspect significant right inflow disease. * Greater than 50% stenosis in the right STAFF RN. * Occluded right deep femoral artery and both anterior and posterior tibial arteries. * Greater than 75% stenosis suspected in the right mid to distal SFA. Possible stent. * Greater than 75% stenosis at the right popliteal artery. * Greater than 75% stenosis suspected at the left common femoral artery bifurcation. * 06/19/2018 at 0843 PT: IShaheen MD, discussed the findings over the phone with Dr. Bowden. This document is electronically signed by Shaheen Casey MD., Jun 19 2018 11:43:44 AM ET
[2018-06-19] MEDS ORDERED: PERCOCET 5/325 PO PRN (12:01)
[2018-06-19] MEDS: MUCINEX ER PO SCH ×3 (12:12→22:28)
[2018-06-19] MEDS: APRESOLINE PO SCH ×3 (12:13→20:51)
[2018-06-19] MEDS: LOPRESSOR PO SCH ×2 (12:13→22:24)
[2018-06-19] MEDS: ZYLOPRIM PO SCH (12:14)
[2018-06-19] MEDS: PEPCID PO SCH ×2 (12:14→22:24)
[2018-06-19] MEDS: NORVASC PO SCH (12:16)
[2018-06-19] MEDS: SODIUM CHLORIDE FLUSH SYRINGE 10 ML IV SCH ×2 (12:16→23:13)
[2018-06-19] MEDS: DILAUDID IV PRN ×2 (12:36→17:24)
[2018-06-19] MEDS: BABY ASPIRIN PO SCH (12:36)
[2018-06-19 12:37] LABS: Calcium 8.4 mg/dL (8.4-10.2)
[2018-06-19] MEDS ORDERED: HEPARIN 10,000 UNITS/10 ML IV ONE (12:42)
[2018-06-19 14:01] LABS: Hematocrit 35.4 % (30.3-42.9); Hemoglobin 11.3 gm/dl (10.1-14.3)
[2018-06-19 14:19] LABS: INR 1.07 (0.87-1.13)
[2018-06-19 14:26] LABS: Partial Thromboplastin Time 94.9 Sec. (24.2-36.6)
--- NOTE | 2018-06-19 14:27 | Progress Note ---
<CHRISTEL LAWSON - Last Filed: 06/19/18 14:34> Assessment and Plan Assessment and plan: 78-year-old -Cypriot female with history of HLD, CAD, s/p CABG, s/p stent placenets, PVD, gout, right foot swelling, COPD on 2L [place] home oxygen who presented to the ED with c/o dyspnea which has progressively worsened over the past few weeks. She has associated cough productive of yellow sputum, sore throat and lightheadedness. She also c/o worsening right foot pain and swelling. Rt foot XR showed postsurgical changes distal right great toe; soft tissue mass/swelling distal second toe with loss of distal part of the middle phalanx and the proximal part of the distal phalanx including the joint. 06/19/18 Bilateral arterial LE doppler reveals: Suspect significant right inflow disease. Greater than 50% stenosis in the right [employer]ER. Occluded right deep femoral artery and both anterior and posterior tibial arteries. Greater than 75% stenosis suspected in the right mid to distal SFA. Possible stent. Greater than 75% stenosis at the right popliteal artery. Greater than 75% stenosis suspected at the left common femoral artery bifurcation. Acute exacerbation of COPD Acute on chronic respiratory failure Hypertension CAD/PVD History of gout CKD stage III Right Foot swelling History of PE- previously anticoagulated on Eliquis Plan: Continue allopurinol Continue duo nebs Continue systemic steroids Continue supplemental oxygen weaned to baseline requirements as tolerated Continue statin Continue azithromycin to and on 6 Continue guaifenesin Monitor BP Continue antihypertensive medication to optimize BP Continue pain management Start on Heparin gtt Vascular consult pending Nephrology consult pending Will request pt's med list from op pharmacy History Interval history: Pt is seen on the HEATH unit. She is placed on BiPaP nocturnally. She remains on 3L NC with saturation of 95%. Her breathing is still labored with prolong expiratory phase. Pt went for bilateral arterial doppler this morning. Right foot is still discolored, warm to touch, tender with swelling. She c/o of periods of restlessness and foot pain. She denies fever, chills, hemoptysis, pain other than in the right foot. Hospitalist Physical - Physical exam Narrative exam: General appearance: Present: mild distress - EENT Eyes: Present: PERRL, EOM intact ENT: hearing intact, poor dentition - Neck Neck: Present: supple, normal ROM - Respiratory Respiratory effort: labored Respiratory: bilateral: diminished (bases), wheezing (scattered wheezing with poor air movement) - Cardiovascular Heart rate: 93 (bpm) Rhythm: regular Heart Sounds: Present: S1 & S2. Absent: rub, click - Extremities Extremities: abnormal (discoloration of right foot, swelling to right foot, it is warm to touch, right pedal pulse diminished, prolonged capillary refill) Extremity abnormal: edema, cyanosis, other (right electric cell tender to touch) - Peripheral Assessment Right Foot Edema Type: Pitting Edema Degree: 2+ Peripheral Pulses: abnormal (diminished right pedal pulse) - Abdominal General gastrointestinal: soft, non-tender, normal bowel sounds - Integumentary Integumentary: Present: warm, dry - Psychiatric Psychiatric: cooperative - Constitutional Vitals: Temp Pulse Resp BP Pulse Ox 98.4 F 68 22 155/60 99 06/19/18 13:34 06/19/18 13:34 06/19/18 13:34 06/19/18 13:34 06/19/18 13:34 General appearance: Present: mild distress Results - Labs CBC & Chem 7: 06/19/18 13:34 06/19/18 11:47 Labs: Laboratory Last Values WBC 7.2 K/mm3 (4.5-11.0) 06/17/18 17:50 RBC 4.52 M/mm3 (3.65-5.03) 06/17/18 17:50 Hgb 11.3 gm/dl (10.1-14.3) 06/19/18 13:34 Hct 35.4 % (30.3-42.9) 06/19/18 13:34 MCV 84 fl (79-97) 06/17/18 17:50 MCH 27 pg (28-32) L 06/17/18 17:50 MCHC 33 % (30-34) 06/17/18 17:50 RDW 14.9 % (13.2-15.2) 06/17/18 17:50 Plt Count 196 K/mm3 (140-440) 06/19/18 13:34 Lymph % (Auto) 21.0 % (13.4-35.0) 06/17/18 17:50 [place] % (Auto) 6.6 % (0.0-7.3) 06/17/18 17:50 Eos % (Auto) 0.7 % (0.0-4.3) 06/17/18 17:50 Baso % (Auto) 0.5 % (0.0-1.8) 06/17/18 17:50 Lymph # 1.5 K/mm3 (1.2-5.4) 06/17/18 17:50 [place] # 0.5 K/mm3 (0.0-0.8) 06/17/18 17:50 Eos # 0.0 K/mm3 (0.0-0.4) 06/17/18 17:50 Baso # 0.0 K/mm3 (0.0-0.1) 06/17/18 17:50 Seg Neutrophils % 71.2 % (40.0-70.0) H 06/17/18 17:50 Seg Neutrophils # 5.1 K/mm3 (1.8-7.7) 06/17/18 17:50 PT 14.6 Sec. (12.2-14.9) 06/19/18 13:34 INR 1.07 (0.87-1.13) 06/19/18 13:34 D-Dimer 686.12 ng/mlDDU (0-234) H 06/17/18 17:50 POC ABG pH 7.409 (7.35-7.45) 06/18/18 20:50 POC ABG pCO2 30.2 (35-45) L 06/18/18 20:50 POC ABG pO2 100 (80-105) 06/18/18 20:50 POC ABG HCO3 19.1 (22-26 mml/L) 06/18/18 20:50 POC ABG Total CO2 20 (23-27mmol/L) 06/18/18 20:50 POC ABG O2 Sat 98 06/18/18 20:50 POC ABG Base Excess -6 ((-2) - (+3)mmol/L) 06/18/18 20:50 FiO2 28 % 06/18/18 20:50 Sodium 142 mmol/L (137-145) 06/19/18 11:47 Potassium 4.3 mmol/L (3.6-5.0) 06/19/18 11:47 Chloride 112.9 mmol/L (98-107) H 06/19/18 11:47 Carbon Dioxide 16 mmol/L (22-30) L 06/19/18 11:47 Anion Gap 17 mmol/L 06/19/18 11:47 BUN 29 mg/dL (7-17) H 06/19/18 11:47 Creatinine 1.6 mg/dL (0.7-1.2) H 06/19/18 11:47 Estimated GFR 38 ml/min 06/19/18 11:47 BUN/Creatinine Ratio 18 % 06/19/18 11:47 Glucose 182 mg/dL (65-100) H 06/19/18 11:47 Calcium 8.4 mg/dL (8.4-10.2) 06/19/18 11:47 Magnesium 2.70 mg/dL (1.7-2.3) H 06/17/18 17:50 Total Bilirubin 0.40 mg/dL (0.1-1.2) 06/17/18 17:50 AST 15 units/L (5-40) 06/17/18 17:50 ALT 15 units/L (7-56) 06/17/18 17:50 Alkaline Phosphatase 85 units/L (35-129) 06/17/18 17:50 Troponin T < 0.010 ng/mL (0.00-0.029) 06/18/18 05:07 Total Protein 6.3 g/dL (6.3-8.2) 06/17/18 17:50 Albumin 3.6 g/dL (3.9-5) L 06/17/18 17:50 Albumin/Globulin Ratio 1.3 % 06/17/18 17:50 Urine Color Yellow (Yellow) 06/18/18 04:00 Urine Turbidity Slightly-cloudy (Clear) 06/18/18 04:00 Urine pH 5.0 (5.0-7.0) 06/18/18 04:00 Ur Specific [place] 1.025 (1.003-1.030) 06/18/18 04:00 Urine Protein 30 mg/dl mg/dL (Negative) 06/18/18 04:00 Urine Glucose (UA) Neg mg/dL (Negative) 06/18/18 04:00 Urine Ketones Tr mg/dL (Negative) 06/18/18 04:00 Urine Blood Lg (Negative) 06/18/18 04:00 Urine Nitrite Neg (Negative) 06/18/18 04:00 Urine Bilirubin Neg (Negative) 06/18/18 04:00 Urine Urobilinogen 2.0 mg/dL (<2.0) 06/18/18 04:00 Ur Leukocyte Esterase Neg (Negative) 06/18/18 04:00 Urine WBC (Auto) 3.0 /HPF (0.0-6.0) 06/18/18 04:00 Urine RBC (Auto) > 182.0 /HPF (0.0-6.0) 06/18/18 04:00 U Epithel Cells (Auto) 1.0 /HPF (0-13.0) 06/18/18 04:00 Hyaline Casts 26 /LPF 06/18/18 04:00 Urine Mucus Few /HPF 06/18/18 04:00 Active Medications - Current Medications Current Medications: Generic Name Dose Route Start Last Admin Trade Name Freq PRN Reason Stop Dose Admin Acetaminophen 650 mg 06/17/18 23:37 Tylenol PO Q4H PRN Pain MILD(1-3)/Fever >100.5/HERRMANN Albuterol 2.5 mg 06/18/18 15:46 Proventil IH Q4HRT PRN Shortness Of Breath Albuterol/Ipratropium 1 ampul 06/18/18 00:00 06/19/18 13:03 Duoneb *Not For Prn Use* IH 1 ampul Q4HRT KVNG Administration Allopurinol 100 mg 06/18/18 10:00 06/19/18 12:14 Zyloprim PO 100 mg QDAY KVNG Administration Amlodipine Besylate 10 mg 06/18/18 03:02 06/19/18 12:16 Norvasc PO Not Given DAILY KVNG Aspirin 81 mg 06/18/18 10:00 06/19/18 12:36 Baby Aspirin PO 81 mg DAILY KVNG Administration Famotidine 10 mg 06/18/18 10:00 06/19/18 12:14 Pepcid PO 10 mg BID KVNG Administration Guaifenesin 600 mg 06/17/18 23:45 06/19/18 12:13 Mucinex Er PO 600 mg BID KVNG Administration Hydralazine HCl 100 mg 06/18/18 03:03 06/19/18 12:13 Apresoline PO Not Given TID KVNG Hydromorphone HCl 1 mg 06/19/18 12:01 06/19/18 12:36 Dilaudid IV 1 mg Q4H PRN Administration Pain , Severe (7-10) Sodium Chloride 1,000 mls @ 100 mls/hr 06/17/18 23:45 06/19/18 05:32 Nacl 0.9% 1000 Ml IV 100 mls/hr DIRECT KVNG Administration Azithromycin 500 mg/ Sodium 250 mls @ 250 mls/hr 06/17/18 23:56 06/18/18 01:22 Chloride IV 06/22/18 23:55 250 mls/hr Q24HR@2200 KVNG Administration Heparin Sodium/Sodium Chloride 25,000 unit in 500 mls @ 14 mls/hr 06/19/18 12:00 Heparin/ 0.45% Nacl-25,000 Unit/500 Ml IV TITR KVNG Protocol 700 UNITS/HR Methylprednisolone Sodium Succinate 125 mg 06/18/18 00:00 06/19/18 12:14 Solu-Medrol IV 125 mg Q6HR KVNG Administration Metoprolol Tartrate 50 mg 06/18/18 04:00 06/19/18 12:13 Lopressor PO 50 mg BID KVNG Administration Montelukast Sodium 10 mg 06/18/18 18:00 06/18/18 17:39 Singulair PO 10 mg QPM KVNG Administration Ondansetron HCl 4 mg 06/17/18 23:37 Zofran IV Q8H PRN Nausea And Vomiting Oxycodone/Acetaminophen 2 tab 06/19/18 12:01 Percocet 5/325 PO Q4H PRN Pain, Moderate (4-6) Pravastatin Sodium 40 mg 06/18/18 22:00 Pravachol PO QHS KVNG Sodium Chloride 10 ml 06/18/18 10:00 06/19/18 12:16 Sodium Chloride Flush Syringe 10 Ml IV 10 ml BID KVNG Administration Sodium Chloride 10 ml 06/17/18 23:37 06/18/18 17:40 Sodium Chloride Flush Syringe 10 Ml IV 10 ml PRN PRN Administration LINE FLUSH <HANSEL MOLINA M - Last Filed: 06/21/18 23:01> Assessment and Plan Assessment and plan: I saw and evaluated the patient. I agree with the findings and the plan of care as documented in the Nurse Practitioner's~note, with the following corrections and additions. cont anticoagulation and meds for COPD Hospitalist Physical - Constitutional Vitals: Temp Pulse Resp BP Pulse Ox 98.5 F 84 20 132/69 100 06/21/18 19:31 06/21/18 20:44 06/21/18 21:37 06/21/18 19:31 06/21/18 20:29 Results - Labs CBC & Chem 7: 06/21/18 03:47 06/21/18 03:47 Labs: Laboratory Last Values WBC 7.2 K/mm3 (4.5-11.0) 06/17/18 17:50 RBC 4.52 M/mm3 (3.65-5.03) 06/17/18 17:50 Hgb 11.8 gm/dl (10.1-14.3) 06/21/18 03:47 Hct 36.5 % (30.3-42.9) 06/21/18 03:47 MCV 84 fl (79-97) 06/17/18 17:50 MCH 27 pg (28-32) L 06/17/18 17:50 MCHC 33 % (30-34) 06/17/18 17:50 RDW 14.9 % (13.2-15.2) 06/17/18 17:50 Plt Count 184 K/mm3 (140-440) 06/21/18 03:47 Lymph % (Auto) 21.0 % (13.4-35.0) 06/17/18 17:50 [place] % (Auto) 6.6 % (0.0-7.3) 06/17/18 17:50 Eos % (Auto) 0.7 % (0.0-4.3) 06/17/18 17:50 Baso % (Auto) 0.5 % (0.0-1.8) 06/17/18 17:50 Lymph # 1.5 K/mm3 (1.2-5.4) 06/17/18 17:50 [place] # 0.5 K/mm3 (0.0-0.8) 06/17/18 17:50 Eos # 0.0 K/mm3 (0.0-0.4) 06/17/18 17:50 Baso # 0.0 K/mm3 (0.0-0.1) 06/17/18 17:50 Seg Neutrophils % 71.2 % (40.0-70.0) H 06/17/18 17:50 Seg Neutrophils # 5.1 K/mm3 (1.8-7.7) 06/17/18 17:50 PT 14.8 Sec. (12.2-14.9) 06/21/18 03:47 INR 1.09 (0.87-1.13) 06/21/18 03:47 APTT 94.9 Sec. (24.2-36.6) H* 06/19/18 13:34 D-Dimer 686.12 ng/mlDDU (0-234) H 06/17/18 17:50 Heparin Anti-Xa Level 0.59 U.I./ml (0.3-0.7) 06/21/18 03:47 POC ABG pH 7.320 (7.35-7.45) L 06/20/18 14:47 POC ABG pCO2 39.1 (35-45) 06/20/18 14:47 POC ABG pO2 87 (80-105) 06/20/18 14:47 POC ABG HCO3 20.1 (22-26 mml/L) 06/20/18 14:47 POC ABG Total CO2 21 (23-27mmol/L) 06/20/18 14:47 POC ABG O2 Sat 96 06/20/18 14:47 POC ABG Base Excess -6 ((-2) - (+3)mmol/L) 06/20/18 14:47 FiO2 21 % 06/20/18 14:47 Sodium 142 mmol/L (137-145) 06/21/18 03:47 Potassium 4.6 mmol/L (3.6-5.0) 06/21/18 03:47 Chloride 106.8 mmol/L (98-107) 06/21/18 03:47 Carbon Dioxide 21 mmol/L (22-30) L 06/21/18 03:47 Anion Gap 19 mmol/L 06/21/18 03:47 BUN 43 mg/dL (7-17) H 06/21/18 03:47 Creatinine 1.7 mg/dL (0.7-1.2) H 06/21/18 03:47 Estimated GFR 35 ml/min 06/21/18 03:47 BUN/Creatinine Ratio 25 % 06/21/18 03:47 Glucose 138 mg/dL (65-100) H 06/21/18 03:47 Calcium 8.7 mg/dL (8.4-10.2) 06/21/18 03:47 Magnesium 2.70 mg/dL (1.7-2.3) H 06/17/18 17:50 Total Bilirubin 0.40 mg/dL (0.1-1.2) 06/17/18 17:50 AST 15 units/L (5-40) 06/17/18 17:50 ALT 15 units/L (7-56) 06/17/18 17:50 Alkaline Phosphatase 85 units/L (35-129) 06/17/18 17:50 Troponin T < 0.010 ng/mL (0.00-0.029) 06/18/18 05:07 Total Protein 6.3 g/dL (6.3-8.2) 06/17/18 17:50 Albumin 3.6 g/dL (3.9-5) L 06/17/18 17:50 Albumin/Globulin Ratio 1.3 % 06/17/18 17:50 TSH 0.147 mlU/mL (0.270-4.200) L 06/19/18 Unknown Free T4 1.26 ng/dL (0.76-1.46) 06/19/18 Unknown Thyroxine (T4) 6.6 ug/dL (4.0-12.0) 06/19/18 Unknown Urine Color Yellow (Yellow) 06/18/18 04:00 Urine Turbidity Slightly-cloudy (Clear) 06/18/18 04:00 Urine pH 5.0 (5.0-7.0) 06/18/18 04:00 Ur Specific [place] 1.025 (1.003-1.030) 06/18/18 04:00 Urine Protein 30 mg/dl mg/dL (Negative) 06/18/18 04:00 Urine Glucose (UA) Neg mg/dL (Negative) 06/18/18 04:00 Urine Ketones Tr mg/dL (Negative) 06/18/18 04:00 Urine Blood Lg (Negative) 06/18/18 04:00 Urine Nitrite Neg (Negative) 06/18/18 04:00 Urine Bilirubin Neg (Negative) 06/18/18 04:00 Urine Urobilinogen 2.0 mg/dL (<2.0) 06/18/18 04:00 Ur Leukocyte Esterase Neg (Negative) 06/18/18 04:00 Urine WBC (Auto) 3.0 /HPF (0.0-6.0) 06/18/18 04:00 Urine RBC (Auto) > 182.0 /HPF (0.0-6.0) 06/18/18 04:00 U Epithel Cells (Auto) 1.0 /HPF (0-13.0) 06/18/18 04:00 Hyaline Casts 26 /LPF 06/18/18 04:00 Urine Mucus Few /HPF 06/18/18 04:00 Active Medications - Current Medications Current Medications: Generic Name Dose Route Start Last Admin Trade Name Freq PRN Reason Stop Dose Admin Acetaminophen 650 mg 06/17/18 23:37 Tylenol PO Q4H PRN Pain MILD(1-3)/Fever >100.5/HERRMANN Albuterol 2.5 mg 06/18/18 15:46 06/21/18 11:42 Proventil IH 2.5 mg Q4HRT PRN Administration Shortness Of Breath Albuterol/Ipratropium 1 ampul 06/20/18 12:15 06/21/18 20:28 Duoneb *Not For Prn Use* IH Not Given Q6H KVNG Allopurinol 100 mg 06/18/18 10:00 06/21/18 09:23 Zyloprim PO 100 mg QDAY KVNG Administration Amlodipine Besylate 10 mg 06/18/18 03:02 06/21/18 09:24 Norvasc PO 10 mg DAILY KVNG Administration Arformoterol Tartrate 15 mcg 06/20/18 12:15 06/21/18 20:28 Brovana Nebu IH 15 mcg Q12HRT KVNG Administration Aspirin 81 mg 06/18/18 10:00 06/21/18 09:23 Baby Aspirin PO 81 mg DAILY KVNG Administration Budesonide 0.5 mg 06/20/18 20:00 06/21/18 20:28 Pulmicort IH 0.5 mg Q12HRT KVNG Administration Famotidine 10 mg 06/18/18 10:00 06/21/18 21:01 Pepcid PO 10 mg BID KVNG Administration Guaifenesin 600 mg 06/17/18 23:45 06/21/18 21:02 Mucinex Er PO 600 mg BID KVNG Administration Hydralazine HCl 100 mg 06/18/18 03:03 06/21/18 20:54 Apresoline PO 100 mg TID KVNG Administration Hydromorphone HCl 1 mg 06/19/18 12:01 06/21/18 21:37 Dilaudid IV 1 mg Q4H PRN Administration Pain , Severe (7-10) Heparin Sodium/Sodium Chloride 25,000 unit in 500 mls @ 14 mls/hr 06/19/18 12:00 06/21/18 05:01 Heparin/ 0.45% Nacl-25,000 Unit/500 Ml IV 650 units/hr TITR KVNG 13 mls/hr Titration Protocol 700 UNITS/HR Levofloxacin/Dextrose 500 mg in 100 mls @ 100 mls/hr 06/21/18 13:00 06/21/18 13:30 Levaquin 500mg/100ml IV 100 mls/hr Q48H KVNG Administration Protocol Methylprednisolone Sodium Succinate 60 mg 06/20/18 20:00 06/21/18 20:53 Solu-Medrol IV 60 mg Q8H KVNG Administration Metoprolol Tartrate 50 mg 06/18/18 04:00 06/21/18 21:02 Lopressor PO 50 mg BID KVNG Administration Montelukast Sodium 10 mg 06/18/18 18:00 06/21/18 17:30 Singulair PO 10 mg QPM KVNG Administration Morphine Sulfate 2 mg 06/21/18 16:42 06/21/18 17:39 Morphine IV 06/23/18 16:41 2 mg Q4H PRN Administration Pain, Moderate (4-6) Ondansetron HCl 4 mg 06/17/18 23:37 Zofran IV Q8H PRN Nausea And Vomiting Oxycodone/Acetaminophen 2 tab 06/19/18 12:01 Percocet 5/325 PO Q4H PRN Pain, Moderate (4-6) Pravastatin Sodium 40 mg 06/18/18 22:00 06/21/18 21:02 Pravachol PO 40 mg QHS KVNG Administration Sodium Bicarbonate 650 mg 06/19/18 22:00 06/21/18 21:01 Sodium Bicarbonate PO 650 mg BID KVNG Administration Sodium Chloride 10 ml 06/18/18 10:00 06/21/18 21:37 Sodium Chloride Flush Syringe 10 Ml IV 10 ml BID KVNG Administration Sodium Chloride 10 ml 06/17/18 23:37 06/21/18 17:40 Sodium Chloride Flush Syringe 10 Ml IV 10 ml PRN PRN Administration LINE FLUSH Warfarin Sodium 5 mg 06/20/18 17:00 06/21/18 17:30 Coumadin PO 5 mg DAILY@1700 KVNG Administration
--- NOTE | 2018-06-19 15:01 | Consultation ---
History of Present Illness - Reason for Consult Consult date: 06/19/18 PAD - History of Present Illness This pt is a 78yo AAF that was admitted via the ER on 06/17/18 due to SOB. She has underlying PAD. She was at Dr Rivera's office in preparation for a procedure, but this was unable to be completed due to her inability to lay flat. She c/o pain at rest (worse at night) and a darkened toe to the right 2nd toe. She frequently hangs her feet off the side of the bed due to discomfort. A vascular surgery consult is requested to further evaluate. Past History Past Medical History: CAD, COPD (on home oxygen 2 L), hypertension, PVD, other (gout) Past Surgical History: CABG, Other (Previous peripheral arterial stent place ment, feet surgery (casting of the L foot due to a Charcot's foot), bilat 1st toe bunionectomy ) Social history: smoking (smoked cigarettes for 30 years but quit about a year ago. She denies alcohol or illicit drug use) Family history: other (reviewed and noncontributory) Medications and Allergies Allergies Allergy/AdvReac Type Severity Reaction Status Date / Time latex Allergy Hives Verified 01/23/18 09:20 milk Allergy Rash Verified 01/23/18 09:20 Home Medications Medication Instructions Recorded Confirmed Last Taken Type Ipratropium/Albuterol Sulfate 1 puff IH BID 01/23/18 06/17/18 Unknown History [Combivent Respimat] Allopurinol [Zyloprim] 100 mg PO QDAY #30 tablet 01/27/18 06/17/18 Unknown Rx Metoprolol [Lopressor TAB] 50 mg PO BID #60 tablet 01/27/18 06/17/18 Unknown Rx Montelukast [Singulair] 10 mg PO QPM #30 tablet 01/27/18 06/17/18 Unknown Rx Pravastatin [Pravachol] 40 mg PO QHS #30 tablet 01/27/18 06/17/18 Unknown Rx amLODIPine [Norvasc] 10 mg PO DAILY #30 tablet 01/27/18 06/17/18 Unknown Rx hydrALAZINE [Apresoline TAB] 100 mg PO TID #90 tab 01/27/18 06/17/18 Unknown Rx Aspirin 81 mg PO DAILY 06/17/18 06/17/18 Unknown History Famotidine [Pepcid] 20 mg PO BID 06/17/18 06/17/18 Unknown History traMADol [Ultram] 50 mg PO Q8H PRN 06/17/18 06/17/18 Unknown History Active Meds: Active Medications Acetaminophen (Tylenol) 650 mg PO Q4H PRN PRN Reason: Pain MILD(1-3)/Fever >100.5/HERRMANN Albuterol (Proventil) 2.5 mg IH Q4HRT PRN PRN Reason: Shortness Of Breath Albuterol/Ipratropium (Duoneb *Not For Prn Use*) 1 ampul IH Q4HRT [facility] Last Admin: 06/19/18 13:03 Dose: 1 ampul Documented by: Allopurinol (Zyloprim) 100 mg PO QDAY [facility] Last Admin: 06/19/18 12:14 Dose: 100 mg Documented by: Amlodipine Besylate (Norvasc) 10 mg PO DAILY [facility] Last Admin: 06/19/18 12:16 Dose: Not Given Documented by: Aspirin (Baby Aspirin) 81 mg PO DAILY [facility] Last Admin: 06/19/18 12:36 Dose: 81 mg Documented by: Famotidine (Pepcid) 10 mg PO BID [facility] Last Admin: 06/19/18 12:14 Dose: 10 mg Documented by: Guaifenesin (Mucinex Er) 600 mg PO BID [facility] Last Admin: 06/19/18 12:13 Dose: 600 mg Documented by: Hydralazine HCl (Apresoline) 100 mg PO TID [facility] Last Admin: 06/19/18 12:13 Dose: Not Given Documented by: Hydromorphone HCl (Dilaudid) 1 mg IV Q4H PRN PRN Reason: Pain , Severe (7-10) Last Admin: 06/19/18 12:36 Dose: 1 mg Documented by: Sodium Chloride (Nacl 0.9% 1000 Ml) 1,000 mls @ 100 mls/hr IV DIRECT [facility] Last Admin: 06/19/18 05:32 Dose: 100 mls/hr Documented by: Azithromycin 500 mg/ Sodium (Chloride) 250 mls @ 250 mls/hr IV Q24HR@2200 [facility] Stop: 06/22/18 23:55 Last Admin: 06/18/18 01:22 Dose: 250 mls/hr Documented by: Heparin Sodium/Sodium Chloride (Heparin/ 0.45% Nacl-25,000 Unit/500 Ml) 25,000 unit in 500 mls @ 14 mls/hr IV TITR [facility]; Protocol Methylprednisolone Sodium Succinate (Solu-Medrol) 125 mg IV Q6HR [facility] Last Admin: 06/19/18 12:14 Dose: 125 mg Documented by: Metoprolol Tartrate (Lopressor) 50 mg PO BID [facility] Last Admin: 06/19/18 12:13 Dose: 50 mg Documented by: Montelukast Sodium (Singulair) 10 mg PO QPM [facility] Last Admin: 06/18/18 17:39 Dose: 10 mg Documented by: Ondansetron HCl (Zofran) 4 mg IV Q8H PRN PRN Reason: Nausea And Vomiting Oxycodone/Acetaminophen (Percocet 5/325) 2 tab PO Q4H PRN PRN Reason: Pain, Moderate (4-6) Pravastatin Sodium (Pravachol) 40 mg PO QHS [facility] Sodium Chloride (Sodium Chloride Flush Syringe 10 Ml) 10 ml IV BID [facility] Last Admin: 06/19/18 12:16 Dose: 10 ml Documented by: Sodium Chloride (Sodium Chloride Flush Syringe 10 Ml) 10 ml IV PRN PRN PRN Reason: LINE FLUSH Last Admin: 06/18/18 17:40 Dose: 10 ml Documented by: Review of Systems All systems: negative Exam - Constitutional Vitals: Temp Pulse Resp BP Pulse Ox 98.4 F 68 22 155/60 99 06/19/18 13:34 06/19/18 13:34 06/19/18 13:34 06/19/18 13:34 06/19/18 13:34 General appearance: Present: no acute distress - EENT Eyes: Present: EOM intact ENT: hearing intact - Neck Neck: Present: supple - Extremities Extremities: normal temperature, abnormal (right 2nd toe (hammer toe) is darker than the others, skin appears viable, no appreciable ulcerations. ) Extremity abnormal: pulses diminished (unable to palpate pedal pulses bilaterally) - Psychiatric Psychiatric: appropriate mood/affect, intact judgment & insight, cooperative - Neurologic Neurologic: no focal deficits Results - Labs CBC & Chem 7: 06/19/18 13:34 06/19/18 11:47 Labs: Abnormal lab results 06/18/18 06/19/18 06/19/18 Range/Units 20:50 11:47 13:34 APTT 94.9 H* (24.2-36.6) Sec. Heparin Anti-Xa Level (0.3-0.7) U.I./ml POC ABG pCO2 30.2 L (35-45) Chloride 112.9 H (98-107) mmol/L Carbon Dioxide 16 L (22-30) mmol/L BUN 29 H (7-17) mg/dL Creatinine 1.6 H (0.7-1.2) mg/dL Glucose 182 H (65-100) mg/dL 06/19/18 Range/Units 13:34 APTT (24.2-36.6) Sec. Heparin Anti-Xa Level 1.00 H (0.3-0.7) U.I./ml POC ABG pCO2 (35-45) Chloride (98-107) mmol/L Carbon Dioxide (22-30) mmol/L BUN (7-17) mg/dL Creatinine (0.7-1.2) mg/dL Glucose (65-100) mg/dL [facility] [address] [place] [address] Vascular Lab Report Signed Patient: GENARO SCHMID#: [id number] : 3Acct:[id number] Age/Sex: 78 / FADM Date: 06/17/18 Loc: 2B-[facility] B243-[address]: HANSEL MOLINA MD Ordering Physician: CHRISTEL LAWSON NP Date of Service: 06/18/18 Procedure(s): arterial duplex LE BILAT Accession Number(s): [id number] cc: CHRISTEL LAWSON NP~ PROCEDURE: ARTERIAL DUPLEX LE BILAT TECHNIQUE: Pedroza scale, color and pulsed Doppler ultrasound with color flow and spectral analysis evaluation of both lower extremities arteries were performed. HISTORY: claudication in rt foot with pain and swelling COMPARISONS: None currently available. FINDINGS: RIGHT EXTREMITY: Proximal SCREEN WRITER, SCREEN WRITER, SFA origin, proximal SFA, DFA, mid SFA, distal SFA, popliteal, distal popliteal, TRACTOR EXPERT, MOLINA, and peroneal velocities in cm/sec: 276, 145, 159, 94, 0, 82, 177, 204, 32, 0, 0, and 32. Possible stent edge at the distal right superficial femoral artery. LEFT EXTREMITY: Proximal SCREEN WRITER, SCREEN WRITER, SFA origin, proximal SFA, DFA, mid SFA, distal SFA, popliteal, distal popliteal, TRACTOR EXPERT, MOLINA, and peroneal velocities in cm/sec: 118, 95, 352, 58, 280, 62, 57, 56, 60, 0, 0, and 56. Monophasic waveforms throughout. IMPRESSION: * Suspect significant right inflow disease. * Greater than 50% stenosis in the right SCREEN WRITER. * Occluded right deep femoral artery and both anterior and posterior tibial arteries. * Greater than 75% stenosis suspected in the right mid to distal SFA. Possible stent. * Greater than 75% stenosis at the right popliteal artery. * Greater than 75% stenosis suspected at the left common femoral artery bifurcation. * 06/19/2018 at 0843 PT: IShaheen MD, discussed the findings over the phone with Dr. Bowden. This document is electronically signed by Shaheen Garner MD., Jun 19 2018 11:43:44 AM ET Transcribed By: TYM Dictated By: SHAHEEN GARNER MD Electronically Authenticated By: SHAHEEN GARNER MD Signed Date/Time: 06/19/18 1146 Imaging [id number] Patient name: SANDY SCHMID 2 of 2 DD/ 1117 TD/TT: 06/19/18 1120 Imaging [id number] Assessment and Plan Pt presented with an acute on chronic exacerbation of lung disease. She was scheduled to have a vascular procedure completed as an outpt by Dr Rivera, but was unable to lay flat to complete the arteriogram. The procedure was cx'd and the pt sent home. She subsequently called EMS and was brought to the ER at [facility] and has since been admitted. A non-invasive arterial duplex was completed. This was reported as: IMPRESSION: * Suspect significant right inflow disease. * Greater than 50% stenosis in the right SCREEN WRITER. * Occluded right deep femoral artery and both anterior and posterior tibial arteries. * Greater than 75% stenosis suspected in the right mid to distal SFA. Possible stent. * Greater than 75% stenosis at the right popliteal artery. * Greater than 75% stenosis suspected at the left common femoral artery bifurcation. She has multi-level arterial disease, with an acute exacerbation of underlying lung disease. In addition she has CKD and at risk of contrast nephropathy. Her leg is viable and does not appear to need emergent intervention at this point. Discussed with Dr Rivera. She can follow up with him upon discharge. - Patient Problems (1) Atherosclerosis of [place] arteries of extremity with rest pain Current Visit: Yes Status: Acute (2) CKD (chronic kidney disease) Current Visit: Yes Status: Acute Qualifiers: Chronic kidney disease stage: unspecified stage Qualified Code(s): N18.9 - Chronic kidney disease, unspecified (3) COPD exacerbation Current Visit: Yes Status: Acute (4) CHF (congestive heart failure) Current Visit: No Status: Acute Qualifiers: Heart failure type: other Qualified Code(s): I50.9 - Heart failure, unspecified (5) Shortness of breath Current Visit: No Status: Acute (6) Diet-controlled type 2 diabetes mellitus Current Visit: No Status: Chronic (7) HLD (hyperlipidemia) Current Visit: No Status: Chronic Qualifiers: Hyperlipidemia type: mixed hyperlipidemia Qualified Code(s): E78.2 - Mixed hyperlipidemia (8) HTN (hypertension) Current Visit: No Status: Chronic Qualifiers: Hypertension type: essential hypertension Qualified Code(s): I10 - Essential (primary) hypertension
[2018-06-19] MEDS: HEPARIN/ 0.45% NACL-25,000 UNIT/500 ML 25,000 UNIT/500 ML BAG IV SCH (15:16)
--- NOTE | 2018-06-19 15:51 | Consultation ---
History of Present Illness - Reason for Consult Consult date: 06/19/18 chronic renal failure Requesting physician: CHRISTEL LAWSON - History of Present Illness This is a 78 yo F with past medical history of hypertension, CAD, PVD, COPD on home oxygen who presented to the ED with complaints of worsening shortness of breath, associated with productive cough, sore throat. She also c/o for worsening R foot swelling and pain. pt was found to be in acute COPD exacerbat ion and was started on IV steroids, IV antibiotic and nebulizer breathing treatments. Rt foot XR showed postsurgical changes distal right great toe; soft tissue mass/swelling distal second toe with loss of distal part of the middle phalanx and the proximal part of the distal phalanx including the joint. labs showed elevated BUN/Cr at 27/1.8mg/dl for which renal consult is requested. based on chart review pt has underlying CKD with baseline Cr around 1.3-1.8mg/dl in the past. pt denies recent NSAIDs use IV contrast exposure. Past History Past Medical History: CAD, COPD (on home oxygen 2 L), hypertension, PVD, other (gout) Past Surgical History: CABG, Other (Previous peripheral arterial stent placement, feet surgery (casting of the L foot due to a Charcot's foot), bilat 1st toe bunionectomy ) Social history: smoking (smoked cigarettes for 30 years but quit about a year ago. She denies alcohol or illicit drug use) Family history: other (reviewed and noncontributory) Medications and Allergies Allergies Allergy/AdvReac Type Severity Reaction Status Date / Time latex Allergy Hives Verified 01/23/18 09:20 milk Allergy Rash Verified 01/23/18 09:20 Home Medications Medication Instructions Recorded Confirmed Last Taken Type Ipratropium/Albuterol Sulfate 1 puff IH BID 01/23/18 06/17/18 Unknown History [Combivent Respimat] Allopurinol [Zyloprim] 100 mg PO QDAY #30 tablet 01/27/18 06/17/18 Unknown Rx Metoprolol [Lopressor TAB] 50 mg PO BID #60 tablet 01/27/18 06/17/18 Unknown Rx Montelukast [Singulair] 10 mg PO QPM #30 tablet 01/27/18 06/17/18 Unknown Rx Pravastatin [Pravachol] 40 mg PO QHS #30 tablet 01/27/18 06/17/18 Unknown Rx amLODIPine [Norvasc] 10 mg PO DAILY #30 tablet 01/27/18 06/17/18 Unknown Rx hydrALAZINE [Apresoline TAB] 100 mg PO TID #90 tab 01/27/18 06/17/18 Unknown Rx Aspirin 81 mg PO DAILY 06/17/18 06/17/18 Unknown History Famotidine [Pepcid] 20 mg PO BID 06/17/18 06/17/18 Unknown History traMADol [Ultram] 50 mg PO Q8H PRN 06/17/18 06/17/18 Unknown History Active Meds: Active Medications Acetaminophen (Tylenol) 650 mg PO Q4H PRN PRN Reason: Pain MILD(1-3)/Fever >100.5/HERRMANN Albuterol (Proventil) 2.5 mg IH Q4HRT PRN PRN Reason: Shortness Of Breath Albuterol/Ipratropium (Duoneb *Not For Prn Use*) 1 ampul IH Q4HRT [facility] Last Admin: 06/19/18 13:03 Dose: 1 ampul Documented by: Allopurinol (Zyloprim) 100 mg PO QDAY [facility] Last Admin: 06/19/18 12:14 Dose: 100 mg Documented by: Amlodipine Besylate (Norvasc) 10 mg PO DAILY [facility] Last Admin: 06/19/18 12:16 Dose: Not Given Documented by: Aspirin (Baby Aspirin) 81 mg PO DAILY [facility] Last Admin: 06/19/18 12:36 Dose: 81 mg Documented by: Famotidine (Pepcid) 10 mg PO BID [facility] Last Admin: 06/19/18 12:14 Dose: 10 mg Documented by: Guaifenesin (Mucinex Er) 600 mg PO BID [facility] Last Admin: 06/19/18 12:13 Dose: 600 mg Documented by: Hydralazine HCl (Apresoline) 100 mg PO TID [facility] Last Admin: 06/19/18 15:32 Dose: 100 mg Documented by: Hydromorphone HCl (Dilaudid) 1 mg IV Q4H PRN PRN Reason: Pain , Severe (7-10) Last Admin: 06/19/18 12:36 Dose: 1 mg Documented by: Sodium Chloride (Nacl 0.9% 1000 Ml) 1,000 mls @ 100 mls/hr IV DIRECT [facility] Last Admin: 06/19/18 05:32 Dose: 100 mls/hr Documented by: Azithromycin 500 mg/ Sodium (Chloride) 250 mls @ 250 mls/hr IV Q24HR@2200 [facility] Stop: 06/22/18 23:55 Last Admin: 06/18/18 01:22 Dose: 250 mls/hr Documented by: Heparin Sodium/Sodium Chloride (Heparin/ 0.45% Nacl-25,000 Unit/500 Ml) 25,000 unit in 500 mls @ 14 mls/hr IV TITR [facility]; Protocol Last Admin: 06/19/18 15:16 Dose: 700 units/hr, 14 mls/hr Documented by: Methylprednisolone Sodium Succinate (Solu-Medrol) 125 mg IV Q6HR [facility] Last Admin: 06/19/18 12:14 Dose: 125 mg Documented by: Metoprolol Tartrate (Lopressor) 50 mg PO BID [facility] Last Admin: 06/19/18 12:13 Dose: 50 mg Documented by: Montelukast Sodium (Singulair) 10 mg PO QPM [facility] Last Admin: 06/18/18 17:39 Dose: 10 mg Documented by: Ondansetron HCl (Zofran) 4 mg IV Q8H PRN PRN Reason: Nausea And Vomiting Oxycodone/Acetaminophen (Percocet 5/325) 2 tab PO Q4H PRN PRN Reason: Pain, Moderate (4-6) Pravastatin Sodium (Pravachol) 40 mg PO QHS [facility] Sodium Chloride (Sodium Chloride Flush Syringe 10 Ml) 10 ml IV BID [facility] Last Admin: 06/19/18 12:16 Dose: 10 ml Documented by: Sodium Chloride (Sodium Chloride Flush Syringe 10 Ml) 10 ml IV PRN PRN PRN Reason: LINE FLUSH Last Admin: 06/18/18 17:40 Dose: 10 ml Documented by: Exam - Vital Signs Vital signs: Vital Signs Pulse Resp 87 24 06/17/18 16:12 06/17/18 16:12 - General Appearance General appearance: well-developed, appears stated age, chronically ill EENT: ATNC, PERRL, mucous membranes moist Neck: Present: neck supple Respiratory: Decreased Breath Sounds Heart: regular, S1S2 Gastrointestinal: Present: normoactive bowel sounds Integumentary: no rash, other (R foot edema ) Neurologic: no focal deficit, alert and oriented x3, strength 5/5, CN 3-12 intact Psychiatric: mood/affect appropriate, cooperative Results - Lab Results 06/19/18 13:34 06/19/18 11:47 Most recent lab results Calcium 8.4 mg/dL (8.4-10.2) 06/19/18 11:47 Magnesium 2.70 mg/dL (1.7-2.3) H 06/17/18 17:50 Laboratory Tests 06/17/18 06/17/18 06/17/18 17:50 17:50 17:50 PT INR D-Dimer 686.12 H Heparin Anti-Xa Level POC ABG pH POC ABG pCO2 POC ABG pO2 POC ABG HCO3 POC ABG Total CO2 POC ABG O2 Sat POC ABG Base Excess Calcium 9.1 Magnesium 2.70 H Total Bilirubin 0.40 AST 15 ALT 15 Alkaline Phosphatase 85 Troponin T < 0.010 Total Protein 6.3 Albumin 3.6 L Albumin/Globulin Ratio 1.3 Urine Color Urine Turbidity Urine pH Ur Specific [place] Urine Protein Urine Glucose (UA) Urine Ketones Urine Blood Urine Nitrite Urine Bilirubin Urine Urobilinogen Ur Leukocyte Esterase Urine WBC (Auto) Urine RBC (Auto) U Epithel Cells (Auto) Hyaline Casts Urine Mucus 06/18/18 06/18/18 06/19/18 04:00 20:50 13:34 PT 14.6 INR 1.07 D-Dimer Heparin Anti-Xa Level POC ABG pH 7.409 POC ABG pCO2 30.2 L POC ABG pO2 100 POC ABG HCO3 19.1 POC ABG Total CO2 20 POC ABG O2 Sat 98 POC ABG Base Excess -6 Calcium Magnesium Total Bilirubin AST ALT Alkaline Phosphatase Troponin T Total Protein Albumin Albumin/Globulin Ratio Urine Color Yellow Urine Turbidity Slightly-cloudy Urine pH 5.0 Ur Specific [place] 1.025 Urine Protein 30 mg/dl Urine Glucose (UA) Neg Urine Ketones Tr Urine Blood Lg Urine Nitrite Neg Urine Bilirubin Neg Urine Urobilinogen 2.0 Ur Leukocyte Esterase Neg Urine WBC (Auto) 3.0 Urine RBC (Auto) > 182.0 U Epithel Cells (Auto) 1.0 Hyaline Casts 26 Urine Mucus Few 06/19/18 13:34 PT INR D-Dimer Heparin Anti-Xa Level 1.00 H POC ABG pH POC ABG pCO2 POC ABG pO2 POC ABG HCO3 POC ABG Total CO2 POC ABG O2 Sat POC ABG Base Excess Calcium Magnesium Total Bilirubin AST ALT Alkaline Phosphatase Troponin T Total Protein Albumin Albumin/Globulin Ratio Urine Color Urine Turbidity Urine pH Ur Specific [place] Urine Protein Urine Glucose (UA) Urine Ketones Urine Blood Urine Nitrite Urine Bilirubin Urine Urobilinogen Ur Leukocyte Esterase Urine WBC (Auto) Urine RBC (Auto) U Epithel Cells (Auto) Hyaline Casts Urine Mucus Assessment and Plan - Patient Problems (1) COPD exacerbation Current Visit: Yes Status: Acute Plan to address problem: cont IV steroid, ABXs and bronchodilator therapy as per primary attending (2) CKD (chronic kidney disease) Current Visit: Yes Status: Acute Qualifiers: Chronic kidney disease stage: unspecified stage Qualified Code(s): N18.9 - Chronic kidney disease, unspecified Plan to address problem: 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 appears to be stable at her baseline based on chart review. UA showed large blood with > 182 RBCs likely in the setting of systemic anticoagulation. no significant proteinuria seen, I doubt acute glomerular injury. however will repeat UA, urine protein/cr ratio, if significant proteinuria and persistent hematuria seen will obtain further GN w/u. Avoid nephrotoxins, NSAIDs, IV contrast. If IV contrast required to further evaluate/treat PAD, pt will need IV hydration 12hr prior and post IV contrast exposure, since she has increased risk for Contrast induced nephropathy. (3) Hypertensive chronic kidney disease with stage 1 through stage 4 chronic kidney disease, or unspecified chronic kidney disease Current Visit: Yes Status: Acute Plan to address problem: Monitor BP on current meds (4) Atherosclerosis of [place] arteries of extremity with rest pain Current Visit: Yes Status: Acute Plan to address problem: on heparin gtt, follow vascular surgery recommendations.
[2018-06-19] MEDS: SINGULAIR PO SCH (17:24)
[2018-06-19] MEDS: SODIUM BICARBONATE PO SCH (22:24)
[2018-06-19] MEDS: PRAVACHOL PO SCH (22:24)
[2018-06-19] MEDS: ZITHROMAX 500 MG in NACL 0.9% 250ML 250 ML IV SCH (22:25)
[2018-06-20] MEDS: DILAUDID IV PRN ×4 (00:23→22:00)
[2018-06-20] MEDS: DUONEB *Not for PRN Use IH SCH ×6 (01:11→21:18)
[2018-06-20] MEDS: SOLU-Medrol IV SCH ×3 (05:24→19:46)
[2018-06-20 06:55] LABS: Calcium 8.9 mg/dL (8.4-10.2)
[2018-06-20] MEDS: SODIUM CHLORIDE FLUSH SYRINGE 10 ML IV PRN ×4 (08:07→19:48)
[2018-06-20] MEDS: APRESOLINE PO SCH ×3 (08:09→19:45)
[2018-06-20] MEDS: PEPCID PO SCH ×2 (09:23→21:26)
[2018-06-20] MEDS: SODIUM CHLORIDE FLUSH SYRINGE 10 ML IV SCH ×2 (09:23→21:30)
[2018-06-20] MEDS: MUCINEX ER PO SCH ×2 (09:23→21:27)
[2018-06-20] MEDS: SODIUM BICARBONATE PO SCH ×2 (09:23→21:26)
[2018-06-20] MEDS: ZYLOPRIM PO SCH (09:24)
[2018-06-20] MEDS: NORVASC PO SCH (09:24)
[2018-06-20] MEDS: BABY ASPIRIN PO SCH (09:24)
[2018-06-20] MEDS: LOPRESSOR PO SCH ×2 (09:25→21:28)
--- NOTE | 2018-06-20 10:39 | Progress Note ---
Assessment and Plan Assessment and plan: 78-year-old -B[place] female with history of HLD, CAD, s/p CABG, s/p stent placenets, PVD, gout, right foot swelling, COPD on 2L [place] home oxygen who presented to the ED with c/o dyspnea, cough and chronic Bilat LE pain worse on Right 2nd toe, she takes eliquis at homewhich has progressively worsened over the past few weeks. She has associated cough productive of yellow sputum, sore throat and lightheadedness. She also c/o worsening right foot pain and swelling. Rt foot XR showed postsurgical changes distal right great toe; soft tissue mass/swelling distal second toe with loss of distal part of the middle phalanx and the proximal part of the distal phalanx including the joint. 06/19/18 Bilateral arterial LE doppler reveals: Suspect significant right inflow disease. Greater than 50% stenosis in the right [employer]. Occluded right deep femoral artery and both anterior and posterior tibial arteries. Greater than 75% stenosis suspected in the right mid to distal SFA. Possible stent. Greater than 75% stenosis at the right popliteal artery. Greater than 75% stenosis suspected at the left common femoral artery bifurcation. Diagnosis Acute exacerbation of COPD; cont steroids, nebs and RT Acute on chronic respiratory failure; cont oxygen Hypertension; optimize BP meds CAD/PVD; cw Vasc, has chronic PAD, and needs to fup as outpatient, continue anticoagulation, plan to put back on eliquis prior to dc, on heparin ggt for now History of gout; cont allopurinol CKD stage III; stable, nephrology managing, avoid nephrotoxins History of PE- takes Eliquis at home History Interval history: BL LE pain is improved, Review of systems Constitutional: No fevers, no malaise, no joint pains CVS: No chest pain, no orthopnea, no dyspnea on exertion, no pedal edema GI: No abdominal pain, no diarrhea, no vomiting, no constipation Respiratory: sob and wheezing is imrpoved Hospitalist Physical - Physical exam Narrative exam: General appearance: Present: mild distress - EENT Eyes: Present: PERRL, EOM intact ENT: hearing intact, poor dentition - Neck Neck: Present: supple, normal ROM - Respiratory Respiratory effort: labored Respiratory: bilateral: diminished (bases), wheezing (scattered wheezing with poor air movement) - Cardiovascular Heart rate: 93 (bpm) Rhythm: regular Heart Sounds: Present: S1 & S2. 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) - Peripheral Assessment no edema Peripheral Pulses: abnormal (diminished right pedal pulse) - Abdominal General gastrointestinal: soft, non-tender, normal bowel sounds - Integumentary Integumentary: Present: warm, dry - Psychiatric Psychiatric: cooperative - Constitutional Vitals: Temp Pulse Resp BP Pulse Ox 98.6 F 93 H 20 164/87 94 06/20/18 07:47 06/20/18 09:36 06/20/18 09:36 06/20/18 09:25 06/20/18 09:36 General appearance: Present: no acute distress Results - Labs CBC & Chem 7: 06/22/18 06:43 06/22/18 04:51 Labs: Laboratory Last Values WBC 7.2 K/mm3 (4.5-11.0) 06/17/18 17:50 RBC 4.52 M/mm3 (3.65-5.03) 06/17/18 17:50 Hgb 11.3 gm/dl (10.1-14.3) 06/19/18 13:34 Hct 35.4 % (30.3-42.9) 06/19/18 13:34 MCV 84 fl (79-97) 06/17/18 17:50 MCH 27 pg (28-32) L 06/17/18 17:50 MCHC 33 % (30-34) 06/17/18 17:50 RDW 14.9 % (13.2-15.2) 06/17/18 17:50 Plt Count 196 K/mm3 (140-440) 06/19/18 13:34 Lymph % (Auto) 21.0 % (13.4-35.0) 06/17/18 17:50 [place] % (Auto) 6.6 % (0.0-7.3) 06/17/18 17:50 Eos % (Auto) 0.7 % (0.0-4.3) 06/17/18 17:50 Baso % (Auto) 0.5 % (0.0-1.8) 06/17/18 17:50 Lymph # 1.5 K/mm3 (1.2-5.4) 06/17/18 17:50 [place] # 0.5 K/mm3 (0.0-0.8) 06/17/18 17:50 Eos # 0.0 K/mm3 (0.0-0.4) 06/17/18 17:50 Baso # 0.0 K/mm3 (0.0-0.1) 06/17/18 17:50 Seg Neutrophils % 71.2 % (40.0-70.0) H 06/17/18 17:50 Seg Neutrophils # 5.1 K/mm3 (1.8-7.7) 06/17/18 17:50 PT 14.6 Sec. (12.2-14.9) 06/19/18 13:34 INR 1.07 (0.87-1.13) 06/19/18 13:34 APTT 94.9 Sec. (24.2-36.6) H* 06/19/18 13:34 D-Dimer 686.12 ng/mlDDU (0-234) H 06/17/18 17:50 Heparin Anti-Xa Level 0.68 U.I./ml (0.3-0.7) 06/19/18 20:40 POC ABG pH 7.409 (7.35-7.45) 06/18/18 20:50 POC ABG pCO2 30.2 (35-45) L 06/18/18 20:50 POC ABG pO2 100 (80-105) 06/18/18 20:50 POC ABG HCO3 19.1 (22-26 mml/L) 06/18/18 20:50 POC ABG Total CO2 20 (23-27mmol/L) 06/18/18 20:50 POC ABG O2 Sat 98 06/18/18 20:50 POC ABG Base Excess -6 ((-2) - (+3)mmol/L) 06/18/18 20:50 FiO2 28 % 06/18/18 20:50 Sodium 142 mmol/L (137-145) 06/20/18 06:06 Potassium 5.7 mmol/L (3.6-5.0) H D 06/20/18 06:06 Chloride 109.3 mmol/L (98-107) H 06/20/18 06:06 Carbon Dioxide 18 mmol/L (22-30) L 06/20/18 06:06 Anion Gap 20 mmol/L 06/20/18 06:06 BUN 40 mg/dL (7-17) H 06/20/18 06:06 Creatinine 1.8 mg/dL (0.7-1.2) H 06/20/18 06:06 Estimated GFR 33 ml/min 06/20/18 06:06 BUN/Creatinine Ratio 22 % 06/20/18 06:06 Glucose 148 mg/dL (65-100) H 06/20/18 06:06 Calcium 8.9 mg/dL (8.4-10.2) 06/20/18 06:06 Magnesium 2.70 mg/dL (1.7-2.3) H 06/17/18 17:50 Total Bilirubin 0.40 mg/dL (0.1-1.2) 06/17/18 17:50 AST 15 units/L (5-40) 06/17/18 17:50 ALT 15 units/L (7-56) 06/17/18 17:50 Alkaline Phosphatase 85 units/L (35-129) 06/17/18 17:50 Troponin T < 0.010 ng/mL (0.00-0.029) 06/18/18 05:07 Total Protein 6.3 g/dL (6.3-8.2) 06/17/18 17:50 Albumin 3.6 g/dL (3.9-5) L 06/17/18 17:50 Albumin/Globulin Ratio 1.3 % 06/17/18 17:50 TSH 0.147 mlU/mL (0.270-4.200) L 06/19/18 Unknown Free T4 1.26 ng/dL (0.76-1.46) 06/19/18 Unknown Thyroxine (T4) 6.6 ug/dL (4.0-12.0) 06/19/18 Unknown Urine Color Yellow (Yellow) 06/18/18 04:00 Urine Turbidity Slightly-cloudy (Clear) 06/18/18 04:00 Urine pH 5.0 (5.0-7.0) 06/18/18 04:00 Ur Specific [place] 1.025 (1.003-1.030) 06/18/18 04:00 Urine Protein 30 mg/dl mg/dL (Negative) 06/18/18 04:00 Urine Glucose (UA) Neg mg/dL (Negative) 06/18/18 04:00 Urine Ketones Tr mg/dL (Negative) 06/18/18 04:00 Urine Blood Lg (Negative) 06/18/18 04:00 Urine Nitrite Neg (Negative) 06/18/18 04:00 Urine Bilirubin Neg (Negative) 06/18/18 04:00 Urine Urobilinogen 2.0 mg/dL (<2.0) 06/18/18 04:00 Ur Leukocyte Esterase Neg (Negative) 06/18/18 04:00 Urine WBC (Auto) 3.0 /HPF (0.0-6.0) 06/18/18 04:00 Urine RBC (Auto) > 182.0 /HPF (0.0-6.0) 06/18/18 04:00 U Epithel Cells (Auto) 1.0 /HPF (0-13.0) 06/18/18 04:00 Hyaline Casts 26 /LPF 06/18/18 04:00 Urine Mucus Few /HPF 06/18/18 04:00 Active Medications - Current Medications Current Medications: Generic Name Dose Route Start Last Admin Trade Name Freq PRN Reason Stop Dose Admin Acetaminophen 650 mg 06/17/18 23:37 Tylenol PO Q4H PRN Pain MILD(1-3)/Fever >100.5/HERRMANN Albuterol 2.5 mg 06/18/18 15:46 Proventil IH Q4HRT PRN Shortness Of Breath Albuterol/Ipratropium 1 ampul 06/18/18 00:00 06/20/18 08:18 Duoneb *Not For Prn Use* IH 1 ampul Q4HRT KVNG Administration Allopurinol 100 mg 06/18/18 10:00 06/20/18 09:24 Zyloprim PO 100 mg QDAY KVNG Administration Amlodipine Besylate 10 mg 06/18/18 03:02 06/20/18 09:24 Norvasc PO 10 mg DAILY KVNG Administration Aspirin 81 mg 06/18/18 10:00 06/20/18 09:24 Baby Aspirin PO 81 mg DAILY KVNG Administration Famotidine 10 mg 06/18/18 10:00 06/20/18 09:23 Pepcid PO 10 mg BID KVNG Administration Guaifenesin 600 mg 06/17/18 23:45 06/20/18 09:23 Mucinex Er PO 600 mg BID KVNG Administration Hydralazine HCl 100 mg 06/18/18 03:03 06/20/18 08:09 Apresoline PO 100 mg TID KVNG Administration Hydromorphone HCl 1 mg 06/19/18 12:01 06/20/18 08:07 Dilaudid IV 1 mg Q4H PRN Administration Pain , Severe (7-10) Azithromycin 500 mg/ Sodium 250 mls @ 250 mls/hr 06/17/18 23:56 06/20/18 00:18 Chloride IV 06/22/18 23:55 Infused Q24HR@2200 KVNG Infusion Heparin Sodium/Sodium Chloride 25,000 unit in 500 mls @ 14 mls/hr 06/19/18 12:00 06/19/18 15:16 Heparin/ 0.45% Nacl-25,000 Unit/500 Ml IV 700 units/hr TITR KVNG 14 mls/hr Administration Protocol 700 UNITS/HR Methylprednisolone Sodium Succinate 125 mg 06/18/18 00:00 06/20/18 05:24 Solu-Medrol IV 125 mg Q6HR KVNG Administration Metoprolol Tartrate 50 mg 06/18/18 04:00 06/20/18 09:25 Lopressor PO 50 mg BID KVNG Administration Montelukast Sodium 10 mg 06/18/18 18:00 06/19/18 17:24 Singulair PO 10 mg QPM KVNG Administration Ondansetron HCl 4 mg 06/17/18 23:37 Zofran IV Q8H PRN Nausea And Vomiting Oxycodone/Acetaminophen 2 tab 06/19/18 12:01 Percocet 5/325 PO Q4H PRN Pain, Moderate (4-6) Pravastatin Sodium 40 mg 06/18/18 22:00 06/19/18 22:24 Pravachol PO 40 mg QHS KVNG Administration Sodium Bicarbonate 650 mg 06/19/18 22:00 06/20/18 09:23 Sodium Bicarbonate PO 650 mg BID KVNG Administration Sodium Chloride 10 ml 06/18/18 10:00 06/20/18 09:23 Sodium Chloride Flush Syringe 10 Ml IV 10 ml BID KVNG Administration Sodium Chloride 10 ml 06/17/18 23:37 06/20/18 08:07 Sodium Chloride Flush Syringe 10 Ml IV 10 ml PRN PRN Administration LINE FLUSH
[2018-06-20] MEDS ORDERED: ATIVAN IV NR (12:03)
[2018-06-20] MEDS: BROVANA NEBU IH SCH ×2 (12:17→21:18)
--- NOTE | 2018-06-20 13:52 | Event Note ---
Date: 06/20/18 Patient is a 78-year-old -[place]i female with history of COPD on home oxygen who presented to the ED on account of few weeks history of worsening shortness of breath. She has associated cough productive of yellow sputum, sore throat and lightheadedness. She also has positive history of right foot swelling. She denies chest pain, fever, chills, palpitation, runny nose/congestion, orthopnea or PND. No headaches, nausea, vomiting, syncope or loss of consciousness. No abdominal pain, constipation, diarrhea, bleeding from any orifice, dysuria or frequency. I have been consulted for COPD. Thank you Patient was seen and examined. Vitals, labs, medications, chart and imaging reviewed. She is in moderate distress on NIPPV. She was able to tell me that she is on home oxygen but not on NIPPV She is seen by Dr. Garrido in the outpatient Past Medical History: CAD, COPD (on home oxygen 2 L), hypertension, PVD, other (gout) Past Surgical History: CABG, Other (arterial stent placement, feet surgery) Social history: smoking (smoked cigarettes for 30 years but quit about a year ago. She denies alcohol or illicit drug use) Family history: other (reviewed and noncontributory) PHYSICAL EXAMINATION General appearance: Present: moderate distress on MVS -HEENT Eyes: Present: PERRL, EOM intact ENT: hearing intact, clear oral mucosa - Neck Neck: Present: supple, normal ROM - Respiratory Respiratory effort: labored Respiratory: bilateral: CTA - Cardiovascular Rhythm: regular Heart Sounds: Present: S1 & S2. Absent: rub, click - Extremities Extremities: pulses symmetrical Extremity abnormal: edema (in RT foot and toes) - Abdominal General gastrointestinal: Present: soft, non-tender, non-distended, normal bowel sounds Female genitourinary: Present: deferred - Integumentary Integumentary: Present: clear, warm, dry - Musculoskeletal Musculoskeletal: gait normal, strength equal bilaterally - Psychiatric Psychiatric: appropriate mood/affect, intact judgment & insight - Neurologic Neurologic: CNII-XII intact, moves all extremities Assessment and Plan Acute severe COPD exacerbation Acute on chronic hypoxemic respiratory failure -Continue with NIPPV -Bronchodilators -Steroids -Accuchecks with glycemic control -Anticoagulation -ABG Continue all current care. Notified primary service and clerk secretary to change consult request to Dr. Garrido. Thank you for the consult
--- NOTE | 2018-06-20 15:28 | Progress Note ---
Assessment and Plan - Patient Problems (1) Chronic kidney disease, stage III (moderate) Current Visit: Yes Status: Acute Plan to address problem: Kidney function stable at baseline. No labs today. Will follow-up tomorrow if still in the hospital but otherwise as out patient (2) COPD exacerbation Current Visit: Yes Status: Acute Plan to address problem: Continue management by primary attending (3) Hypertensive chronic kidney disease with stage 1 through stage 4 chronic kidney disease, or unspecified chronic kidney disease Current Visit: Yes Status: Acute Plan to address problem: Blood pressure is not quite at goal. Adjust medications and follow up blood pressure (4) Acute and chronic respiratory failure Current Visit: No Status: Acute Qualifiers: Respiratory failure complication: hypoxia Qualified Code(s): J96.21 - Acute and chronic respiratory failure with hypoxia Plan to address problem: Continue management by primary attending Subjective Date of service: 06/20/18 Principal diagnosis: CKD 3 Interval history: Patient seen lying in bed. No new C/o Still with SOB No N/V Objective - Exam Narrative Exam: Elderly female on BiPAP i HEENT: NCAT, pink oral mucous membrane Neck: Supple, no venous distention CVS: S1S2 RRR with no murmur, rub or gallop Chest: Few scattered rales lower zones Abdomen: Protuberant, soft, nontender, no organomegaly, bowel sounds are present Extremities: Mild edema Neuro: Awake, alert no focal deficits - Vital Signs Vital signs: Vital Signs - 12hr 06/20/18 06/20/18 06/20/18 04:00 05:40 07:47 Temperature 98.6 F Pulse Rate 90 Pulse Rate [ Apical] Pulse Rate [ 76 74 Throughout] Respiratory 20 Rate Respiratory 20 20 Rate [ Throughout] Blood Pressure 151/82 O2 Sat by Pulse 94 Oximetry 06/20/18 06/20/18 06/20/18 08:07 08:19 08:20 Temperature Pulse Rate Pulse Rate [ Apical] Pulse Rate [ 80 Throughout] Respiratory 20 Rate Respiratory 20 Rate [ Throughout] Blood Pressure O2 Sat by Pulse 96 Oximetry 06/20/18 06/20/18 06/20/18 08:28 09:24 09:25 Temperature Pulse Rate 93 H 93 H Pulse Rate [ Apical] Pulse Rate [ 84 Throughout] Respiratory Rate Respiratory 18 Rate [ Throughout] Blood Pressure 164/87 164/87 O2 Sat by Pulse Oximetry 06/20/18 06/20/18 06/20/18 10:00 11:41 11:49 Temperature Pulse Rate Pulse Rate [ 93 H Apical] Pulse Rate [ 90 94 H Throughout] Respiratory 20 Rate Respiratory 20 20 Rate [ Throughout] Blood Pressure O2 Sat by Pulse 94 Oximetry 06/20/18 06/20/18 06/20/18 12:19 13:25 13:47 Temperature 97.7 F Pulse Rate 84 93 H Pulse Rate [ Apical] Pulse Rate [ 100 H Throughout] Respiratory 32 H 20 Rate Respiratory 20 Rate [ Throughout] Blood Pressure 171/91 O2 Sat by Pulse 95 94 Oximetry 06/20/18 14:05 Temperature Pulse Rate Pulse Rate [ Apical] Pulse Rate [ 102 H Throughout] Respiratory Rate Respiratory 20 Rate [ Throughout] Blood Pressure O2 Sat by Pulse Oximetry - Lab 06/19/18 13:34 06/20/18 10:47 Most recent lab results Calcium 8.9 mg/dL (8.4-10.2) 06/20/18 06:06 Magnesium 2.70 mg/dL (1.7-2.3) H 06/17/18 17:50 Medications & Allergies - Medications Allergies/Adverse Reactions: Allergies latex Allergy (Verified 01/23/18 09:20) Hives milk Allergy (Verified 01/23/18 09:20) Rash Home Medications: Home Medications Medication Instructions Recorded Confirmed Last Taken Type Ipratropium/Albuterol Sulfate 1 puff IH BID 01/23/18 06/17/18 Unknown History [Combivent Respimat] Allopurinol [Zyloprim] 100 mg PO QDAY #30 tablet 01/27/18 06/17/18 Unknown Rx Metoprolol [Lopressor TAB] 50 mg PO BID #60 tablet 01/27/18 06/17/18 Unknown Rx Montelukast [Singulair] 10 mg PO QPM #30 tablet 01/27/18 06/17/18 Unknown Rx Pravastatin [Pravachol] 40 mg PO QHS #30 tablet 01/27/18 06/17/18 Unknown Rx amLODIPine [Norvasc] 10 mg PO DAILY #30 tablet 01/27/18 06/17/18 Unknown Rx hydrALAZINE [Apresoline TAB] 100 mg PO TID #90 tab 01/27/18 06/17/18 Unknown Rx Aspirin 81 mg PO DAILY 06/17/18 06/17/18 Unknown History Famotidine [Pepcid] 20 mg PO BID 06/17/18 06/17/18 Unknown History traMADol [Ultram] 50 mg PO Q8H PRN 06/17/18 06/17/18 Unknown History Active Medications: Generic Name Dose Route Start Last Admin Trade Name Freq PRN Reason Stop Dose Admin Acetaminophen 650 mg 06/17/18 23:37 Tylenol PO Q4H PRN Pain MILD(1-3)/Fever >100.5/HERRMANN Albuterol 2.5 mg 06/18/18 15:46 Proventil IH Q4HRT PRN Shortness Of Breath Albuterol/Ipratropium 1 ampul 06/20/18 12:15 06/20/18 13:47 Duoneb *Not For Prn Use* IH 1 ampul Q6H KVNG Administration Allopurinol 100 mg 06/18/18 10:00 06/20/18 09:24 Zyloprim PO 100 mg QDAY KVNG Administration Amlodipine Besylate 10 mg 06/18/18 03:02 06/20/18 09:24 Norvasc PO 10 mg DAILY KVNG Administration Arformoterol Tartrate 15 mcg 06/20/18 12:15 06/20/18 12:17 Brovana Nebu IH Not Given Q12HRT KVNG Aspirin 81 mg 06/18/18 10:00 06/20/18 09:24 Baby Aspirin PO 81 mg DAILY KVNG Administration Azithromycin 500 mg 06/20/18 22:00 Zithromax PO QHS KVNG Budesonide 0.5 mg 06/20/18 20:00 Pulmicort IH Q12HRT KVNG Famotidine 10 mg 06/18/18 10:00 06/20/18 09:23 Pepcid PO 10 mg BID KVNG Administration Guaifenesin 600 mg 06/17/18 23:45 06/20/18 09:23 Mucinex Er PO 600 mg BID KVNG Administration Hydralazine HCl 100 mg 06/18/18 03:03 06/20/18 15:03 Apresoline PO 100 mg TID KVNG Administration Hydromorphone HCl 1 mg 06/19/18 12:01 06/20/18 08:07 Dilaudid IV 1 mg Q4H PRN Administration Pain , Severe (7-10) Heparin Sodium/Sodium Chloride 25,000 unit in 500 mls @ 14 mls/hr 06/19/18 12:00 06/19/18 15:16 Heparin/ 0.45% Nacl-25,000 Unit/500 Ml IV 700 units/hr TITR KVNG 14 mls/hr Administration Protocol 700 UNITS/HR Methylprednisolone Sodium Succinate 60 mg 06/20/18 20:00 Solu-Medrol IV Q8H KVNG Metoprolol Tartrate 50 mg 06/18/18 04:00 06/20/18 09:25 Lopressor PO 50 mg BID KVNG Administration Montelukast Sodium 10 mg 06/18/18 18:00 06/19/18 17:24 Singulair PO 10 mg QPM KVNG Administration Ondansetron HCl 4 mg 06/17/18 23:37 Zofran IV Q8H PRN Nausea And Vomiting Oxycodone/Acetaminophen 2 tab 06/19/18 12:01 Percocet 5/325 PO Q4H PRN Pain, Moderate (4-6) Pravastatin Sodium 40 mg 06/18/18 22:00 06/19/18 22:24 Pravachol PO 40 mg QHS [facility] Administration Sodium Bicarbonate 650 mg 06/19/18 22:00 06/20/18 09:23 Sodium Bicarbonate PO 650 mg BID VKNG Administration Sodium Chloride 10 ml 06/18/18 10:00 06/20/18 09:23 Sodium Chloride Flush Syringe 10 Ml IV 10 ml BID KVNG Administration Sodium Chloride 10 ml 06/17/18 23:37 06/20/18 11:54 Sodium Chloride Flush Syringe 10 Ml IV 10 ml PRN PRN Administration LINE FLUSH Warfarin Sodium 5 mg 06/20/18 17:00 Coumadin PO DAILY@1700 [facility]
--- NOTE | 2018-06-20 16:41 | XRay Report ---
PROCEDURE: XR CHEST 1V AP TECHNIQUE: Single view chest HISTORY: Asthma COMPARISONS: Chest x-ray June 17, 2018 FINDINGS: Heart size remains top normal. Atherosclerotic calcification and tortuosity aorta. New right base airspace disease. Small right effusion. Mild interstitial prominence stable. No pneumothorax Status post sternotomy IMPRESSION: New right basilar airspace disease.. This document is electronically signed by Vincent York MD., Jun 20 2018 04:38:54 PM ET
[2018-06-20] MEDS: COUMADIN PO SCH (16:47)
[2018-06-20] MEDS: SINGULAIR PO SCH (17:33)
[2018-06-20] MEDS: PULMICORT IH SCH (21:18)
[2018-06-20] MEDS: PRAVACHOL PO SCH (21:27)
[2018-06-20] MEDS ORDERED: ZITHROMAX PO SCH (22:00)
[2018-06-21] MEDS: DUONEB *Not for PRN Use IH SCH ×5 (02:31→20:28)
[2018-06-21] MEDS: SOLU-Medrol IV SCH ×3 (04:38→20:53)
[2018-06-21] MEDS: HEPARIN/ 0.45% NACL-25,000 UNIT/500 ML 25,000 UNIT/500 ML BAG IV SCH (04:39)
[2018-06-21 04:47] LABS: INR 1.09 (0.87-1.13)
[2018-06-21 04:54] LABS: Hematocrit 36.5 % (30.3-42.9); Hemoglobin 11.8 gm/dl (10.1-14.3)
[2018-06-21 04:56] LABS: Calcium 8.7 mg/dL (8.4-10.2)
[2018-06-21] MEDS: APRESOLINE PO SCH ×4 (08:15→20:54)
[2018-06-21] MEDS: DILAUDID IV PRN ×3 (08:16→21:37)
[2018-06-21] MEDS: SODIUM CHLORIDE FLUSH SYRINGE 10 ML IV PRN ×4 (08:16→17:40)
[2018-06-21] MEDS: BROVANA NEBU IH SCH ×2 (09:03→20:28)
[2018-06-21] MEDS: PULMICORT IH SCH ×2 (09:04→20:28)
[2018-06-21] MEDS: BABY ASPIRIN PO SCH (09:23)
[2018-06-21] MEDS: PEPCID PO SCH ×3 (09:23→21:01)
[2018-06-21] MEDS: SODIUM BICARBONATE PO SCH ×2 (09:23→21:01)
[2018-06-21] MEDS: MUCINEX ER PO SCH ×2 (09:23→21:02)
[2018-06-21] MEDS: ZYLOPRIM PO SCH (09:23)
[2018-06-21] MEDS: NORVASC PO SCH (09:24)
[2018-06-21] MEDS: LOPRESSOR PO SCH ×3 (09:24→21:02)
[2018-06-21] MEDS: SODIUM CHLORIDE FLUSH SYRINGE 10 ML IV SCH ×3 (09:25→21:37)
--- NOTE | 2018-06-21 11:42 | Consultation ---
History of Present Illness Reason for consult: dyspnea, cough, COPD History of present illness: This is a 78 yo AAF w hx of chronic resp failure on home o2 who was scheduled for a vascular procedure on but it was unable to be done secondary to her resp status ( pt couldnt lay flat). She was dc and went to her daughters house. She was not feeling better and EMS was called and she was brought to the hosp. Since admission she has been treated with heparin for her vascular problems and was also treated for copd exacerb w steroids and antibx plus neb tx. She reports that she is still sob worse than her baseline. At home she wears o2 at night and with ambulation , she reports some dyspnea w limited excertion. Presently she reports that she is coughing up thick yellow phelgm Past History Past Medical History: CAD, COPD (on home oxygen 2 L), hypertension, PVD, other (gout, PVD) Past Surgical History: CABG, Other (Previous peripheral arterial stent placement, feet surgery (casting of the L foot due to a Charcot's foot), bilat 1st toe bunionectomy ) Social history: smoking (smoked cigarettes for 30 years but quit about a year ago. She denies alcohol or illicit drug use) Family history: hypertension Medications and Allergies Allergies Allergy/AdvReac Type Severity Reaction Status Date / Time latex Allergy Hives Verified 01/23/18 09:20 milk Allergy Rash Verified 01/23/18 09:20 Home Medications Medication Instructions Recorded Confirmed Last Taken Type Ipratropium/Albuterol Sulfate 1 puff IH BID 01/23/18 06/17/18 Unknown History [Combivent Respimat] Allopurinol [Zyloprim] 100 mg PO QDAY #30 tablet 01/27/18 06/17/18 Unknown Rx Metoprolol [Lopressor TAB] 50 mg PO BID #60 tablet 01/27/18 06/17/18 Unknown Rx Montelukast [Singulair] 10 mg PO QPM #30 tablet 01/27/18 06/17/18 Unknown Rx Pravastatin [Pravachol] 40 mg PO QHS #30 tablet 01/27/18 06/17/18 Unknown Rx amLODIPine [Norvasc] 10 mg PO DAILY #30 tablet 01/27/18 06/17/18 Unknown Rx hydrALAZINE [Apresoline TAB] 100 mg PO TID #90 tab 01/27/18 06/17/18 Unknown Rx Aspirin 81 mg PO DAILY 06/17/18 06/17/18 Unknown History Famotidine [Pepcid] 20 mg PO BID 06/17/18 06/17/18 Unknown History traMADol [Ultram] 50 mg PO Q8H PRN 06/17/18 06/17/18 Unknown History Active Meds: Active Medications Acetaminophen (Tylenol) 650 mg PO Q4H PRN PRN Reason: Pain MILD(1-3)/Fever >100.5/HERRMANN Albuterol (Proventil) 2.5 mg IH Q4HRT PRN PRN Reason: Shortness Of Breath Albuterol/Ipratropium (Duoneb *Not For Prn Use*) 1 ampul IH Q6H [facility] Last Admin: 06/21/18 09:06 Dose: Not Given Documented by: Allopurinol (Zyloprim) 100 mg PO QDAY [facility] Last Admin: 06/21/18 09:23 Dose: 100 mg Documented by: Amlodipine Besylate (Norvasc) 10 mg PO DAILY [facility] Last Admin: 06/21/18 09:24 Dose: 10 mg Documented by: Arformoterol Tartrate (Brovana Nebu) 15 mcg IH Q12HRT [facility] Last Admin: 06/21/18 09:03 Dose: 15 mcg Documented by: Aspirin (Baby Aspirin) 81 mg PO DAILY [facility] Last Admin: 06/21/18 09:23 Dose: 81 mg Documented by: Azithromycin (Zithromax) 500 mg PO QHS [facility] Last Admin: 06/20/18 21:28 Dose: 500 mg Documented by: Budesonide (Pulmicort) 0.5 mg IH Q12HRT [facility] Last Admin: 06/21/18 09:04 Dose: 0.5 mg Documented by: Famotidine (Pepcid) 10 mg PO BID [facility] Last Admin: 06/21/18 09:23 Dose: 10 mg Documented by: Guaifenesin (Mucinex Er) 600 mg PO BID [facility] Last Admin: 06/21/18 09:23 Dose: 600 mg Documented by: Hydralazine HCl (Apresoline) 100 mg PO TID [facility] Last Admin: 06/21/18 08:15 Dose: 100 mg Documented by: Hydromorphone HCl (Dilaudid) 1 mg IV Q4H PRN PRN Reason: Pain , Severe (7-10) Last Admin: 06/21/18 08:16 Dose: 1 mg Documented by: Heparin Sodium/Sodium Chloride (Heparin/ 0.45% Nacl-25,000 Unit/500 Ml) 25,000 unit in 500 mls @ 14 mls/hr IV TITR [facility]; Protocol Last Titration: 06/21/18 05:01 Dose: 650 units/hr, 13 mls/hr Documented by: Methylprednisolone Sodium Succinate (Solu-Medrol) 60 mg IV Q8H [facility] Last Admin: 06/21/18 04:38 Dose: 60 mg Documented by: Metoprolol Tartrate (Lopressor) 50 mg PO BID [facility] Last Admin: 06/21/18 09:24 Dose: 50 mg Documented by: Montelukast Sodium (Singulair) 10 mg PO QPM [facility] Last Admin: 06/20/18 17:33 Dose: 10 mg Documented by: Ondansetron HCl (Zofran) 4 mg IV Q8H PRN PRN Reason: Nausea And Vomiting Oxycodone/Acetaminophen (Percocet 5/325) 2 tab PO Q4H PRN PRN Reason: Pain, Moderate (4-6) Pravastatin Sodium (Pravachol) 40 mg PO QHS [facility] Last Admin: 06/20/18 21:27 Dose: 40 mg Documented by: Sodium Bicarbonate (Sodium Bicarbonate) 650 mg PO BID [facility] Last Admin: 06/21/18 09:23 Dose: 650 mg Documented by: Sodium Chloride (Sodium Chloride Flush Syringe 10 Ml) 10 ml IV BID [facility] Last Admin: 06/21/18 09:25 Dose: 10 ml Documented by: Sodium Chloride (Sodium Chloride Flush Syringe 10 Ml) 10 ml IV PRN PRN PRN Reason: LINE FLUSH Last Admin: 06/21/18 08:16 Dose: 10 ml Documented by: Warfarin Sodium (Coumadin) 5 mg PO DAILY@1700 [facility] Last Admin: 06/20/18 16:47 Dose: 5 mg Documented by: Review of Systems Constitutional: poor appetite Ears, nose, mouth and throat: post-nasal drip Breasts: deferred Cardiovascular: rapid/irregular heart beat (history of) Respiratory: cough with sputum, shortness of breath, dyspnea on exertion, whee zing, home oxygen Gastrointestinal: abdominal pain (lower abdomen) Genitourinary Female: nocturia Musculoskeletal: morning stiffness, arthritis, other (she reports pain in le on rt with discolration of 2nd toe) Physical Examination Vital signs: Vital Signs Pulse Resp 87 24 06/17/18 16:12 06/17/18 16:12 General appearance: alert Eyes: non-icteric ENT: oropharynx moist Neck: supple Effort: mildly labored Ascultation: Bilateral: wheezes Percussion: Bilateral: not dull Tactile fremitus: Bilateral: normal Cardiovascular: regular rate and rhythm Gastrointestinal: normoactive bowel sounds Integumentary: normal Extremities: other (rt second toe discolored) Musculoskeletal: no deformities normal mental status, non-focal exam Results - Laboratory Findings CBC and BMP: 06/21/18 03:47 06/21/18 03:47 ABG POC ABG pH 7.320 (7.35-7.45) L 06/20/18 14:47 POC ABG pCO2 39.1 (35-45) 06/20/18 14:47 POC ABG pO2 87 (80-105) 06/20/18 14:47 POC ABG HCO3 20.1 (22-26 mml/L) 06/20/18 14:47 POC ABG Total CO2 21 (23-27mmol/L) 06/20/18 14:47 POC ABG O2 Sat 96 06/20/18 14:47 PT/INR, D-dimer PT 14.8 Sec. (12.2-14.9) 06/21/18 03:47 INR 1.09 (0.87-1.13) 06/21/18 03:47 D-Dimer 686.12 ng/mlDDU (0-234) H 06/17/18 17:50 Abnormal lab findings: Abnormal Labs 06/17/18 06/17/18 06/17/18 17:50 17:50 17:50 MCH 27 L Seg Neutrophils % 71.2 H APTT D-Dimer 686.12 H Heparin Anti-Xa Level POC ABG pH POC ABG pCO2 Potassium Chloride Carbon Dioxide 21 L BUN 21 H Creatinine 1.6 H Glucose 118 H Magnesium 2.70 H Albumin 3.6 L TSH 06/18/18 06/18/18 06/19/18 05:07 20:50 11:47 MCH Seg Neutrophils % APTT D-Dimer Heparin Anti-Xa Level POC ABG pH POC ABG pCO2 30.2 L Potassium Chloride 112.9 H Carbon Dioxide 19 L 16 L BUN 27 H 29 H Creatinine 1.8 H 1.6 H Glucose 241 H 182 H Magnesium Albumin TSH 06/19/18 06/19/18 06/19/18 13:34 13:34 Unknown MCH Seg Neutrophils % APTT 94.9 H* D-Dimer Heparin Anti-Xa Level 1.00 H POC ABG pH POC ABG pCO2 Potassium Chloride Carbon Dioxide BUN Creatinine Glucose Magnesium Albumin TSH 0.147 L 06/20/18 06/20/18 06/20/18 06:06 14:47 20:27 MCH Seg Neutrophils % APTT D-Dimer Heparin Anti-Xa Level 0.71 H POC ABG pH 7.320 L POC ABG pCO2 Potassium 5.7 H D Chloride 109.3 H Carbon Dioxide 18 L BUN 40 H Creatinine 1.8 H Glucose 148 H Magnesium Albumin TSH 06/21/18 03:47 MCH Seg Neutrophils % APTT D-Dimer Heparin Anti-Xa Level POC ABG pH POC ABG pCO2 Potassium Chloride Carbon Dioxide 21 L BUN 43 H Creatinine 1.7 H Glucose 138 H Magnesium Albumin TSH - Diagnostic Findings Chest x-ray: report reviewed, image reviewed Assessment and Plan - Patient Problems (1) Peripheral vascular disease Current Visit: Yes Status: Acute (2) COPD exacerbation Current Visit: Yes Status: Acute (3) Hypertensive chronic kidney disease with stage 1 through stage 4 chronic kidney disease, or unspecified chronic kidney disease Current Visit: Yes Status: Acute (4) COPD (chronic obstructive pulmonary disease) Current Visit: Yes Status: Chronic Qualifiers: COPD type: COPD with acute exacerbation Qualified Code(s): J44.1 - Chronic obstructive pulmonary disease with (acute) exacerbation (5) SMITA (acute kidney injury) Current Visit: No Status: Acute (6) Acute and chronic respiratory failure Current Visit: No Status: Acute Qualifiers: Respiratory failure complication: hypoxia Qualified Code(s): J96.21 - Acute and chronic respiratory failure with hypoxia (7) Arthralgia of right hand Current Visit: No Status: Acute (8) Gout Current Visit: No Status: Inactive
[2018-06-21] MEDS: LEVAQUIN 500MG/100ML 500 MG/100 ML BAG IV SCH (13:30)
--- NOTE | 2018-06-21 15:07 | Progress Note ---
Assessment and Plan Assessment and plan: 78-year-old -[place] female with history of HLD, CAD, s/p CABG, s/p stent placenets, PVD, gout, right foot swelling, COPD on 2L [place] home oxygen who presented to the ED with c/o dyspnea, cough and chronic Bilat LE pain worse on Right 2nd toe, she takes eliquis at homewhich has progressively worsened over the past few weeks. She has associated cough productive of yellow sputum, sore throat and lightheadedness. She also c/o worsening right foot pain and swelling. Rt foot XR showed postsurgical changes distal right great toe; soft tissue mass/swelling distal second toe with loss of distal part of the middle phalanx and the proximal part of the distal phalanx including the joint. 06/19/18 Bilateral arterial LE doppler reveals: Suspect significant right inflow disease. Greater than 50% stenosis in the right [employer]. Occluded right deep femoral artery and both anterior and posterior tibial arteries. Greater than 75% stenosis suspected in the right mid to distal SFA. Possible stent. Greater than 75% stenosis at the right popliteal artery. Greater than 75% stenosis suspected at the left common femoral artery bifurcation. CXR; Right basilar PNA Diagnosis Acute exacerbation of COPD; cont steroids, nebs and RT PNA; cont abx Acute on chronic respiratory failure; cont oxygen Abdominal pain; obtain CT A/P CKD stage III; stable, nephrology managing, avoid nephrotoxins CAD/PVD; cw Vasc, has chronic PAD, and needs to fup as outpatient, continue anticoagulation, plan to put back on eliquis prior to dc, on heparin ggt for now History of gout; cont allopurinol History of PE- takes Eliquis at home Hypertension; optimize BP meds History Interval history: BL LE pain is improved, Review of systems Constitutional: No fevers, no malaise, no joint pains CVS: No chest pain, no orthopnea, no dyspnea on exertion, no pedal edema GI: c/o lower abdominal pain, no diarrhea, no vomiting, no constipation Respiratory: sob and wheezing is imrpoved Hospitalist Physical - Physical exam Narrative exam: General appearance: Present: mild distress - EENT Eyes: Present: PERRL, EOM intact ENT: hearing intact, poor dentition - Neck Neck: Present: supple, normal ROM - Respiratory Respiratory effort: labored Respiratory: bilateral: diminished (bases), wheezing (scattered wheezing with poor air movement) - Cardiovascular Heart rate: 93 (bpm) Rhythm: regular Heart Sounds: Present: S1 & S2. Absent: rub, click - Extremities Extremities: abnormal (discoloration of right foot, swelling to right foot, it is warm to touch, right pedal pulse diminished, prolonged capillary refill) Extremity abnormal: edema, , other (right blister packing machine tender to touch) - Peripheral Assessment no edema Peripheral Pulses: abnormal (diminished right pedal pulse) - Abdominal General gastrointestinal: soft, non-tender, normal bowel sounds - Integumentary Integumentary: Present: warm, dry - Psychiatric Psychiatric: cooperative - Constitutional Vitals: Temp Pulse Resp BP Pulse Ox 97.8 F 83 16 138/69 97 06/21/18 13:26 06/21/18 15:04 06/21/18 15:04 06/21/18 13:26 06/21/18 13:26 General appearance: Present: no acute distress Results - Labs CBC & Chem 7: 06/22/18 06:43 06/22/18 04:51 Labs: Laboratory Last Values WBC 7.2 K/mm3 (4.5-11.0) 06/17/18 17:50 RBC 4.52 M/mm3 (3.65-5.03) 06/17/18 17:50 Hgb 11.8 gm/dl (10.1-14.3) 06/21/18 03:47 Hct 36.5 % (30.3-42.9) 06/21/18 03:47 MCV 84 fl (79-97) 06/17/18 17:50 MCH 27 pg (28-32) L 06/17/18 17:50 MCHC 33 % (30-34) 06/17/18 17:50 RDW 14.9 % (13.2-15.2) 06/17/18 17:50 Plt Count 184 K/mm3 (140-440) 06/21/18 03:47 Lymph % (Auto) 21.0 % (13.4-35.0) 06/17/18 17:50 [place] % (Auto) 6.6 % (0.0-7.3) 06/17/18 17:50 Eos % (Auto) 0.7 % (0.0-4.3) 06/17/18 17:50 Baso % (Auto) 0.5 % (0.0-1.8) 06/17/18 17:50 Lymph # 1.5 K/mm3 (1.2-5.4) 06/17/18 17:50 [place] # 0.5 K/mm3 (0.0-0.8) 06/17/18 17:50 Eos # 0.0 K/mm3 (0.0-0.4) 06/17/18 17:50 Baso # 0.0 K/mm3 (0.0-0.1) 06/17/18 17:50 Seg Neutrophils % 71.2 % (40.0-70.0) H 06/17/18 17:50 Seg Neutrophils # 5.1 K/mm3 (1.8-7.7) 06/17/18 17:50 PT 14.8 Sec. (12.2-14.9) 06/21/18 03:47 INR 1.09 (0.87-1.13) 06/21/18 03:47 APTT 94.9 Sec. (24.2-36.6) H* 06/19/18 13:34 D-Dimer 686.12 ng/mlDDU (0-234) H 06/17/18 17:50 Heparin Anti-Xa Level 0.59 U.I./ml (0.3-0.7) 06/21/18 03:47 POC ABG pH 7.320 (7.35-7.45) L 06/20/18 14:47 POC ABG pCO2 39.1 (35-45) 06/20/18 14:47 POC ABG pO2 87 (80-105) 06/20/18 14:47 POC ABG HCO3 20.1 (22-26 mml/L) 06/20/18 14:47 POC ABG Total CO2 21 (23-27mmol/L) 06/20/18 14:47 POC ABG O2 Sat 96 06/20/18 14:47 POC ABG Base Excess -6 ((-2) - (+3)mmol/L) 06/20/18 14:47 FiO2 21 % 06/20/18 14:47 Sodium 142 mmol/L (137-145) 06/21/18 03:47 Potassium 4.6 mmol/L (3.6-5.0) 06/21/18 03:47 Chloride 106.8 mmol/L (98-107) 06/21/18 03:47 Carbon Dioxide 21 mmol/L (22-30) L 06/21/18 03:47 Anion Gap 19 mmol/L 06/21/18 03:47 BUN 43 mg/dL (7-17) H 06/21/18 03:47 Creatinine 1.7 mg/dL (0.7-1.2) H 06/21/18 03:47 Estimated GFR 35 ml/min 06/21/18 03:47 BUN/Creatinine Ratio 25 % 06/21/18 03:47 Glucose 138 mg/dL (65-100) H 06/21/18 03:47 Calcium 8.7 mg/dL (8.4-10.2) 06/21/18 03:47 Magnesium 2.70 mg/dL (1.7-2.3) H 06/17/18 17:50 Total Bilirubin 0.40 mg/dL (0.1-1.2) 06/17/18 17:50 AST 15 units/L (5-40) 06/17/18 17:50 ALT 15 units/L (7-56) 06/17/18 17:50 Alkaline Phosphatase 85 units/L (35-129) 06/17/18 17:50 Troponin T < 0.010 ng/mL (0.00-0.029) 06/18/18 05:07 Total Protein 6.3 g/dL (6.3-8.2) 06/17/18 17:50 Albumin 3.6 g/dL (3.9-5) L 06/17/18 17:50 Albumin/Globulin Ratio 1.3 % 06/17/18 17:50 TSH 0.147 mlU/mL (0.270-4.200) L 06/19/18 Unknown Free T4 1.26 ng/dL (0.76-1.46) 06/19/18 Unknown Thyroxine (T4) 6.6 ug/dL (4.0-12.0) 06/19/18 Unknown Urine Color Yellow (Yellow) 06/18/18 04:00 Urine Turbidity Slightly-cloudy (Clear) 06/18/18 04:00 Urine pH 5.0 (5.0-7.0) 06/18/18 04:00 Ur Specific [place] 1.025 (1.003-1.030) 06/18/18 04:00 Urine Protein 30 mg/dl mg/dL (Negative) 06/18/18 04:00 Urine Glucose (UA) Neg mg/dL (Negative) 06/18/18 04:00 Urine Ketones Tr mg/dL (Negative) 06/18/18 04:00 Urine Blood Lg (Negative) 06/18/18 04:00 Urine Nitrite Neg (Negative) 06/18/18 04:00 Urine Bilirubin Neg (Negative) 06/18/18 04:00 Urine Urobilinogen 2.0 mg/dL (<2.0) 06/18/18 04:00 Ur Leukocyte Esterase Neg (Negative) 06/18/18 04:00 Urine WBC (Auto) 3.0 /HPF (0.0-6.0) 06/18/18 04:00 Urine RBC (Auto) > 182.0 /HPF (0.0-6.0) 06/18/18 04:00 U Epithel Cells (Auto) 1.0 /HPF (0-13.0) 06/18/18 04:00 Hyaline Casts 26 /LPF 06/18/18 04:00 Urine Mucus Few /HPF 06/18/18 04:00 Active Medications - Current Medications Current Medications: Generic Name Dose Route Start Last Admin Trade Name Freq PRN Reason Stop Dose Admin Acetaminophen 650 mg 06/17/18 23:37 Tylenol PO Q4H PRN Pain MILD(1-3)/Fever >100.5/HERRMANN Albuterol 2.5 mg 06/18/18 15:46 06/21/18 11:42 Proventil IH 2.5 mg Q4HRT PRN Administration Shortness Of Breath Albuterol/Ipratropium 1 ampul 06/20/18 12:15 06/21/18 14:53 Duoneb *Not For Prn Use* IH 1 ampul Q6H [facility] Administration Allopurinol 100 mg 06/18/18 10:00 06/21/18 09:23 Zyloprim PO 100 mg QDAY [facility] Administration Amlodipine Besylate 10 mg 06/18/18 03:02 06/21/18 09:24 Norvasc PO 10 mg DAILY [facility] Administration Arformoterol Tartrate 15 mcg 06/20/18 12:15 06/21/18 09:03 Brovana Nebu IH 15 mcg Q12HRT [facility] Administration Aspirin 81 mg 06/18/18 10:00 06/21/18 09:23 Baby Aspirin PO 81 mg DAILY [facility] Administration Budesonide 0.5 mg 06/20/18 20:00 06/21/18 09:04 Pulmicort IH 0.5 mg Q12HRT [facility] Administration Famotidine 10 mg 06/18/18 10:00 06/21/18 09:23 Pepcid PO 10 mg BID [facility] Administration Guaifenesin 600 mg 06/17/18 23:45 06/21/18 09:23 Mucinex Er PO 600 mg BID [facility] Administration Hydralazine HCl 100 mg 06/18/18 03:03 06/21/18 13:34 Apresoline PO 100 mg TID [facility] Administration Hydromorphone HCl 1 mg 06/19/18 12:01 06/21/18 15:01 Dilaudid IV 1 mg Q4H PRN Administration Pain , Severe (7-10) Heparin Sodium/Sodium Chloride 25,000 unit in 500 mls @ 14 mls/hr 06/19/18 12 :00 06/21/18 05:01 Heparin/ 0.45% Nacl-25,000 Unit/500 Ml IV 650 units/hr TITR [facility] 13 mls/hr Titration Protocol 700 UNITS/HR Levofloxacin/Dextrose 500 mg in 100 mls @ 100 mls/hr 06/21/18 13:00 06/21/18 13:30 Levaquin 500mg/100ml IV 100 mls/hr Q48H [facility] Administration Protocol Methylprednisolone Sodium Succinate 60 mg 06/20/18 20:00 06/21/18 11:55 Solu-Medrol IV 60 mg Q8H [facility] Administration Metoprolol Tartrate 50 mg 06/18/18 04:00 06/21/18 09:24 Lopressor PO 50 mg BID [facility] Administration Montelukast Sodium 10 mg 06/18/18 18:00 06/20/18 17:33 Singulair PO 10 mg QPM [facility] Administration Ondansetron HCl 4 mg 06/17/18 23:37 Zofran IV Q8H PRN Nausea And Vomiting Oxycodone/Acetaminophen 2 tab 06/19/18 12:01 Percocet 5/325 PO Q4H PRN Pain, Moderate (4-6) Pravastatin Sodium 40 mg 06/18/18 22:00 06/20/18 21:27 Pravachol PO 40 mg QHS [facility] Administration Sodium Bicarbonate 650 mg 06/19/18 22:00 06/21/18 09:23 Sodium Bicarbonate PO 650 mg BID [facility] Administration Sodium Chloride 10 ml 06/18/18 10:00 06/21/18 09:25 Sodium Chloride Flush Syringe 10 Ml IV 10 ml BID [facility] Administration Sodium Chloride 10 ml 06/17/18 23:37 06/21/18 15:01 Sodium Chloride Flush Syringe 10 Ml IV 10 ml PRN PRN Administration LINE FLUSH Warfarin Sodium 5 mg 06/20/18 17:00 06/20/18 16:47 Coumadin PO 5 mg DAILY@1700 [facility] Administration
[2018-06-21] MEDS ORDERED: MAXIPIME/NS 1 GM/100 ML 1 GM/100 ML BAG IV SCH (16:00)
--- NOTE | 2018-06-21 16:30 | Progress Note ---
Assessment and Plan - Patient Problems (1) Chronic kidney disease, stage III (moderate) Current Visit: Yes Status: Acute Plan to address problem: Kidney function stable at baseline/marginally better. Discharge planning per primary attending (2) COPD exacerbation Current Visit: Yes Status: Acute Plan to address problem: Continue management by primary attending (3) Hypertensive chronic kidney disease with stage 1 through stage 4 chronic k idney disease, or unspecified chronic kidney disease Current Visit: Yes Status: Acute Plan to address problem: Blood pressure has improved. Follow up blood pressure on current medications (4) Acute and chronic respiratory failure Current Visit: No Status: Acute Qualifiers: Respiratory failure complication: hypoxia Qualified Code(s): J96.21 - Acute and chronic respiratory failure with hypoxia Plan to address problem: Continue management by primary attending (5) Lower abdominal pain Current Visit: Yes Status: Acute Plan to address problem: Patient has suprapubic fullness. Question bladder mass. Get bedside bladder scan and if significant postvoid residual, straight cath patient. I discussed this with the nurse. Repeat bladder scan in 6 hours and if patient again has significant postvoid residual, insert Taveras catheter and leave intact Subjective Date of service: 06/21/18 Principal diagnosis: CKD 3 Interval history: Patient seen lying in bed. No new C/o except for lower abdominal pain. Feels better today. Shortness of breath improving. No nausea or vomiting. Objective - Exam Narrative Exam: Elderly female on BiPAP i HEENT: NCAT, pink oral mucous membrane Neck: Supple, no venous distention CVS: S1S2 RRR with no murmur, rub or gallop Chest: Few scattered rales lower zones Abdomen: Protuberant, soft, suprapubic fullness and tenderness, no organomegaly, bowel sounds are present Extremities: Mild edema Neuro: Awake, alert no focal deficits - Vital Signs Vital signs: Vital Signs - 12hr 06/21/18 06/21/18 06/21/18 07:28 08:16 09:03 Temperature 98.4 F Pulse Rate 82 Pulse Rate [ Apical] Pulse Rate [ 83 Throughout] Respiratory 18 20 Rate Respiratory 17 Rate [ Throughout] Blood Pressure 176/74 O2 Sat by Pulse 96 Oximetry 06/21/18 06/21/18 06/21/18 09:07 09:15 09:23 Temperature Pulse Rate Pulse Rate [ Apical] Pulse Rate [ 91 H Throughout] Respiratory Rate Respiratory 17 Rate [ Throughout] Blood Pressure 161/80 O2 Sat by Pulse 98 Oximetry 06/21/18 06/21/18 06/21/18 09:24 10:00 11:42 Temperature Pulse Rate 86 Pulse Rate [ 82 Apical] Pulse Rate [ 78 Throughout] Respiratory 18 Rate Respiratory 20 Rate [ Throughout] Blood Pressure 161/80 O2 Sat by Pulse 96 Oximetry 06/21/18 06/21/18 06/21/18 11:51 13:26 14:54 Temperature 97.8 F Pulse Rate 80 Pulse Rate [ Apical] Pulse Rate [ 83 75 Throughout] Respiratory 18 Rate Respiratory 20 16 Rate [ Throughout] Blood Pressure 138/69 O2 Sat by Pulse 97 Oximetry 06/21/18 06/21/18 15:01 15:04 Temperature Pulse Rate Pulse Rate [ Apical] Pulse Rate [ 83 Throughout] Respiratory 20 Rate Respiratory 16 Rate [ Throughout] Blood Pressure O2 Sat by Pulse Oximetry - Lab 06/21/18 03:47 06/21/18 03:47 Most recent lab results Calcium 8.7 mg/dL (8.4-10.2) 06/21/18 03:47 Magnesium 2.70 mg/dL (1.7-2.3) H 06/17/18 17:50 Medications & Allergies - Medications Allergies/Adverse Reactions: Allergies latex Allergy (Verified 01/23/18 09:20) Hives milk Allergy (Verified 01/23/18 09:20) Rash Home Medications: Home Medications Medication Instructions Recorded Confirmed Last Taken Type Ipratropium/Albuterol Sulfate 1 puff IH BID 01/23/18 06/17/18 Unknown History [Combivent Respimat] Allopurinol [Zyloprim] 100 mg PO QDAY #30 tablet 01/27/18 06/17/18 Unknown Rx Metoprolol [Lopressor TAB] 50 mg PO BID #60 tablet 01/27/18 06/17/18 Unknown Rx Montelukast [Singulair] 10 mg PO QPM #30 tablet 01/27/18 06/17/18 Unknown Rx Pravastatin [Pravachol] 40 mg PO QHS #30 tablet 01/27/18 06/17/18 Unknown Rx amLODIPine [Norvasc] 10 mg PO DAILY #30 tablet 01/27/18 06/17/18 Unknown Rx hydrALAZINE [Apresoline TAB] 100 mg PO TID #90 tab 12/11/18 05/01/19 Unknown Rx Aspirin 81 mg PO DAILY 06/17/18 06/17/18 Unknown History Famotidine [Pepcid] 20 mg PO BID 06/17/18 06/17/18 Unknown History traMADol [Ultram] 50 mg PO Q8H PRN 06/17/18 06/17/18 Unknown History Active Medications: Generic Name Dose Route Start Last Admin Trade Name Freq PRN Reason Stop Dose Admin Acetaminophen 650 mg 06/17/18 23:37 Tylenol PO Q4H PRN Pain MILD(1-3)/Fever >100.5/HERRMANN Albuterol 2.5 mg 06/18/18 15:46 06/21/18 11:42 Proventil IH 2.5 mg Q4HRT PRN Administration Shortness Of Breath Albuterol/Ipratropium 1 ampul 06/20/18 12:15 06/21/18 14:53 Duoneb *Not For Prn Use* IH 1 ampul Q6H KVNG Administration Allopurinol 100 mg 06/18/18 10:00 06/21/18 09:23 Zyloprim PO 100 mg QDAY KVNG Administration Amlodipine Besylate 10 mg 06/18/18 03:02 06/21/18 09:24 Norvasc PO 10 mg DAILY KVNG Administration Arformoterol Tartrate 15 mcg 06/20/18 12:15 06/21/18 09:03 Brovana Nebu IH 15 mcg Q12HRT KVNG Administration Aspirin 81 mg 06/18/18 10:00 06/21/18 09:23 Baby Aspirin PO 81 mg DAILY KVNG Administration Budesonide 0.5 mg 06/20/18 20:00 06/21/18 09:04 Pulmicort IH 0.5 mg Q12HRT KVNG Administration Famotidine 10 mg 06/18/18 10:00 06/21/18 09:23 Pepcid PO 10 mg BID KVNG Administration Guaifenesin 600 mg 06/17/18 23:45 06/21/18 09:23 Mucinex Er PO 600 mg BID KVNG Administration Hydralazine HCl 100 mg 06/18/18 03:03 06/21/18 13:34 Apresoline PO 100 mg TID KVNG Administration Hydromorphone HCl 1 mg 06/19/18 12:01 06/21/18 15:01 Dilaudid IV 1 mg Q4H PRN Administration Pain , Severe (7-10) Heparin Sodium/Sodium Chloride 25,000 unit in 500 mls @ 14 mls/hr 06/19/18 12:00 06/21/18 05:01 Heparin/ 0.45% Nacl-25,000 Unit/500 Ml IV 650 units/hr TITR KVNG 13 mls/hr Titration Protocol 700 UNITS/HR Levofloxacin/Dextrose 500 mg in 100 mls @ 100 mls/hr 06/21/18 13:00 06/21/18 13:30 Levaquin 500mg/100ml IV 100 mls/hr Q48H KVNG Administration Protocol Methylprednisolone Sodium Succinate 60 mg 06/20/18 20:00 06/21/18 11:55 Solu-Medrol IV 60 mg Q8H KVNG Administration Metoprolol Tartrate 50 mg 06/18/18 04:00 06/21/18 09:24 Lopressor PO 50 mg BID KVNG Administration Montelukast Sodium 10 mg 06/18/18 18:00 06/20/18 17:33 Singulair PO 10 mg QPM KVNG Administration Ondansetron HCl 4 mg 06/17/18 23:37 Zofran IV Q8H PRN Nausea And Vomiting Oxycodone/Acetaminophen 2 tab 06/19/18 12:01 Percocet 5/325 PO Q4H PRN Pain, Moderate (4-6) Pravastatin Sodium 40 mg 06/18/18 22:00 06/20/18 21:27 Pravachol PO 40 mg QHS KVNG Administration Sodium Bicarbonate 650 mg 06/19/18 22:00 06/21/18 09:23 Sodium Bicarbonate PO 650 mg BID KVNG Administration Sodium Chloride 10 ml 06/18/18 10:00 06/21/18 09:25 Sodium Chloride Flush Syringe 10 Ml IV 10 ml BID KVNG Administration Sodium Chloride 10 ml 06/17/18 23:37 06/21/18 15:01 Sodium Chloride Flush Syringe 10 Ml IV 10 ml PRN PRN Administration LINE FLUSH Warfarin Sodium 5 mg 06/20/18 17:00 06/20/18 16:47 Coumadin PO 5 mg DAILY@1700 KVNG Administration
[2018-06-21] MEDS ORDERED: MORPHINE IV PRN (16:42)
[2018-06-21] MEDS: COUMADIN PO SCH (17:30)
[2018-06-21] MEDS: SINGULAIR PO SCH (17:30)
[2018-06-21] MEDS: PRAVACHOL PO SCH ×2 (20:35→21:02)
[2018-06-21] MEDS: ZITHROMAX 500 MG in NACL 0.9% 250ML 250 ML IV SCH (20:37)
[2018-06-22] MEDS: SOLU-Medrol IV SCH ×3 (04:57→22:18)
[2018-06-22 05:44] LABS: INR 1.71 (0.87-1.13)
[2018-06-22 05:54] LABS: Calcium 8.5 mg/dL (8.4-10.2)
[2018-06-22] MEDS: DUONEB *Not for PRN Use IH SCH ×4 (06:15→19:27)
[2018-06-22 07:19] LABS: Hematocrit 28.8 % (30.3-42.9); Hemoglobin 9.7 gm/dl (10.1-14.3)
[2018-06-22] MEDS: BROVANA NEBU IH SCH ×2 (07:25→19:26)
[2018-06-22] MEDS: PULMICORT IH SCH ×2 (07:25→19:26)
[2018-06-22] MEDS: APRESOLINE PO SCH ×3 (08:45→20:14)
--- NOTE | 2018-06-22 09:05 | Cat Scan Report ---
CT scan of abdomen and pelvis without IV contrast: History: Abdominal pain. Findings: There is right basilar atelectasis/infiltrate with minimal pleural thickening/pleural effusion. No pericardial effusion. Bilateral thickening of the skin of the breast with edema of the right breast tissue. If clinically indicated further evaluation with mammogram recommended. Minimal perihepatic fluid. The Extensive vascular calcifications. Pancreas faintly visualized and grossly appears unremarkable. Spleen appears normal. Normal adrenals. Bilateral small kidneys however no mass identified. No evidence of hydronephrosis. Bladder grossly appears unremarkable. The suspected cystic mass measuring 6.5 cm in diameter noted right of the bladder above the right adnexa. Gaseous colon the stool in colon. Generalized edema of the subcutaneous tissue. The Impression: There is a cystic mass in the pelvis. Additional findings as detailed above. If clinically indicated further evaluation with oral and IV contrast recommended.
--- NOTE | 2018-06-22 10:29 | XRay Report ---
Chest 2 views: Compared to 06/20/18. History: PNA/SOB. Findings: Borderline cardiomegaly. Trachea is midline. Blunting of right CP angle probably due to pleural thickening and/or pleural effusion. Minimal blunting of left CP angle. No consolidation. Impression: Findings as detailed above. If clinically indicated CT scan may be utilized. The
--- NOTE | 2018-06-22 10:43 | Progress Note ---
Assessment and Plan - Patient Problems (1) Chronic kidney disease, stage III (moderate) Current Visit: No Status: Chronic Plan to address problem: Fluctuation noted today on labs, with SMITA on CKD in setting of gross hematuria and consequent drop in H/H. Will add patient on NS @ 75 cc/hr. Transfuse PRBC to maintain HgB>7. Avoid nephrotoxins. Maintain MAP >65mmHg. (2) Hematuria Current Visit: Yes Status: Acute Qualifiers: Hematuria type: gross Qualified Code(s): R31.0 - Gross hematuria Plan to address problem: Patient underwent CT abdomen pelvis, with findings noted with concerns for cystic mass above right adnexal region, just right of the bladder per reading. Would recommend urologic/gynecologic evaluation. (3) Hypertensive chronic kidney disease with stage 1 through stage 4 chronic kidney disease, or unspecified chronic kidney disease Current Visit: Yes Status: Chronic Plan to address problem: Monitor on current regimen. (4) Lower abdominal pain Current Visit: Yes Status: Acute Plan to address problem: Patient underwent CT abdomen and is also scheduled for MRA abdomen given h/o PAD. Will follow up on findings. (5) COPD (chronic obstructive pulmonary disease) Current Visit: Yes Status: Chronic Qualifiers: COPD type: COPD with acute exacerbation Qualified Code(s): J44.1 - Chronic obstructive pulmonary disease with (acute) exacerbation Plan to address problem: Management per primary attending. (6) Acute and chronic respiratory failure Current Visit: No Status: Acute Qualifiers: Respiratory failure complication: hypoxia Qualified Code(s): J96.21 - Acute and chronic respiratory failure with hypoxia Plan to address problem: Respiratory status is stable. Further management per primary attending. Subjective Date of service: 06/22/18 Principal diagnosis: CKD 3 Interval history: Patient had episode of gross hematuria this am, and was being transported to radiology for CT abdomen imaging. Her renal function does show fluctuation of renal function/serum creatinine this morning in setting of drop in H/H with the aforementioned gross hematuria. Objective - Vital Signs Vital signs: Vital Signs - 12hr 06/22/18 06/22/18 06/22/18 02:30 02:34 06:18 Temperature 98.0 F 98.1 F Pulse Rate 80 84 Pulse Rate [ Posterior Bilateral Throughout] Respiratory 20 18 Rate Respiratory Rate [Posterior Bilateral Throughout] Blood Pressure 143/76 110/50 O2 Sat by Pulse 91 96 Oximetry 06/22/18 06/22/18 06/22/18 07:25 07:35 07:48 Temperature 98.4 F Pulse Rate 85 Pulse Rate [ 80 78 Posterior Bilateral Throughout] Respiratory 20 Rate Respiratory 18 18 Rate [Posterior Bilateral Throughout] Blood Pressure 106/59 O2 Sat by Pulse 100 100 Oximetry - General Appearance General appearance: appears stated age, chronically ill, frail EENT: ATNC, PERRL Neck: no JVD, no thyromegaly Respiratory: Present: Wheezes Cardiology: regular, S1S2 Gastrointestinal: normal, normoactive bowel sounds Integumentary: warm and dry Neurologic: no focal deficit Psychiatric: mood/affect appropriate, cooperative - Lab 06/22/18 06:43 06/22/18 04:51 Most recent lab results Calcium 8.5 mg/dL (8.4-10.2) 06/22/18 04:51 Magnesium 2.70 mg/dL (1.7-2.3) H 06/17/18 17:50 - Imaging Chest x-ray: report reviewed CT scan - abdomen: report reviewed - Allied health notes Allied health notes reviewed: nursing Medications & Allergies - Medications Allergies/Adverse Reactions: Allergies latex Allergy (Verified 01/23/18 09:20) Hives milk Allergy (Verified 01/23/18 09:20) Rash Home Medications: Home Medications Medication Instructions Recorded Confirmed Last Taken Type Ipratropium/Albuterol Sulfate 1 puff IH BID 01/23/18 06/17/18 Unknown History [Combivent Respimat] Allopurinol [Zyloprim] 100 mg PO QDAY #30 tablet 01/27/18 06/17/18 Unknown Rx Metoprolol [Lopressor TAB] 50 mg PO BID #60 tablet 01/27/18 06/17/18 Unknown Rx Montelukast [Singulair] 10 mg PO QPM #30 tablet 01/27/18 06/17/18 Unknown Rx Pravastatin [Pravachol] 40 mg PO QHS #30 tablet 01/27/18 06/17/18 Unknown Rx amLODIPine [Norvasc] 10 mg PO DAILY #30 tablet 01/27/18 06/17/18 Unknown Rx hydrALAZINE [Apresoline TAB] 100 mg PO TID #90 tab 01/27/18 06/17/18 Unknown Rx Aspirin 81 mg PO DAILY 06/17/18 06/17/18 Unknown History Famotidine [Pepcid] 20 mg PO BID 06/17/18 06/17/18 Unknown History traMADol [Ultram] 50 mg PO Q8H PRN 06/17/18 06/17/18 Unknown History Active Medications: Generic Name Dose Route Start Last Admin Trade Name Freq PRN Reason Stop Dose Admin Acetaminophen 650 mg 06/17/18 23:37 Tylenol PO Q4H PRN Pain MILD(1-3)/Fever >100.5/HERRMANN Albuterol 2.5 mg 06/18/18 15:46 06/21/18 11:42 Proventil IH 2.5 mg Q4HRT PRN Administration Shortness Of Breath Albuterol/Ipratropium 1 ampul 06/22/18 02:00 06/22/18 07:26 Duoneb *Not For Prn Use* IH Not Given Q6HRT KVNG Allopurinol 100 mg 06/18/18 10:00 06/21/18 09:23 Zyloprim PO 100 mg QDAY KVNG Administration Amlodipine Besylate 10 mg 06/18/18 03:02 06/21/18 09:24 Norvasc PO 10 mg DAILY KVNG Administration Arformoterol Tartrate 15 mcg 06/20/18 12:15 06/22/18 07:25 Brovana Nebu IH 15 mcg Q12HRT KVNG Administration Aspirin 81 mg 06/18/18 10:00 06/21/18 09:23 Baby Aspirin PO 81 mg DAILY KVNG Administration Budesonide 0.5 mg 06/20/18 20:00 06/22/18 07:25 Pulmicort IH 0.5 mg Q12HRT KVNG Administration Famotidine 10 mg 06/18/18 10:00 06/21/18 21:01 Pepcid PO 10 mg BID KVNG Administration Guaifenesin 600 mg 06/17/18 23:45 06/21/18 21:02 Mucinex Er PO 600 mg BID KVNG Administration Hydralazine HCl 100 mg 06/18/18 03:03 06/22/18 08:45 Apresoline PO Not Given TID KVNG Hydromorphone HCl 1 mg 06/19/18 12:01 06/21/18 21:37 Dilaudid IV 1 mg Q4H PRN Administration Pain , Severe (7-10) Levofloxacin/Dextrose 500 mg in 100 mls @ 100 mls/hr 06/21/18 13:00 06/21/18 13:30 Levaquin 500mg/100ml IV 100 mls/hr Q48H KVNG Administration Protocol Sodium Chloride 1,000 mls @ 75 mls/hr 06/22/18 09:00 Nacl 0.9% 1000 Ml IV DIRECT KVNG Methylprednisolone Sodium Succinate 60 mg 06/20/18 20:00 06/22/18 04:57 Solu-Medrol IV 60 mg Q8H KVNG Administration Metoprolol Tartrate 50 mg 06/18/18 04:00 06/21/18 21:02 Lopressor PO 50 mg BID KVNG Administration Montelukast Sodium 10 mg 06/18/18 18:00 06/21/18 17:30 Singulair PO 10 mg QPM KVNG Administration Morphine Sulfate 2 mg 06/21/18 16:42 06/21/18 17:39 Morphine IV 06/23/18 16:41 2 mg Q4H PRN Administration Pain, Moderate (4-6) Ondansetron HCl 4 mg 06/17/18 23:37 Zofran IV Q8H PRN Nausea And Vomiting Oxycodone/Acetaminophen 2 tab 06/19/18 12:01 Percocet 5/325 PO Q4H PRN Pain, Moderate (4-6) Pravastatin Sodium 40 mg 06/18/18 22:00 06/21/18 21:02 Pravachol PO 40 mg QHS KVNG Administration Sodium Bicarbonate 650 mg 06/19/18 22:00 06/21/18 21:01 Sodium Bicarbonate PO 650 mg BID KVNG Administration Sodium Chloride 10 ml 06/18/18 10:00 06/21/18 21:37 Sodium Chloride Flush Syringe 10 Ml IV 10 ml BID KVNG Administration Sodium Chloride 10 ml 06/17/18 23:37 06/21/18 17:40 Sodium Chloride Flush Syringe 10 Ml IV 10 ml PRN PRN Administration LINE FLUSH Warfarin Sodium 2.5 mg 06/22/18 17:00 Coumadin PO DAILY@1700 [facility]
--- NOTE | 2018-06-22 10:51 | Progress Note ---
Assessment and Plan 78 y/o female with known COPD and chronic respiratory failure 1. Follow up OB recs 2. Continue baseline home cannula 3. Will decrease steroids tomorrow to 40 or 20 q8 4. Continue long acting bronchodilator therapy Subjective Date of service: 06/22/18 Principal diagnosis: CKD 3 Interval history: No acute events. Afebrile and other vitals have been stable Objective Vital Signs - 12hr 06/22/18 06/22/18 06/22/18 02:30 02:34 06:18 Temperature 98.0 F 98.1 F Pulse Rate 80 84 Pulse Rate [ Posterior Bilateral Throughout] Respiratory 20 18 Rate Respiratory Rate [Posterior Bilateral Throughout] Blood Pressure 143/76 110/50 O2 Sat by Pulse 91 96 Oximetry 06/22/18 06/22/18 06/22/18 07:25 07:35 07:48 Temperature 98.4 F Pulse Rate 85 Pulse Rate [ 80 78 Posterior Bilateral Throughout] Respiratory 20 Rate Respiratory 18 18 Rate [Posterior Bilateral Throughout] Blood Pressure 106/59 O2 Sat by Pulse 100 100 Oximetry Constitutional: alert Eyes: non-icteric ENT: oropharynx moist Neck: supple Effort: mildly labored Ascultation: Bilateral: wheezes Percussion: Bilateral: not dull Tactile fremitus: Bilateral: normal Cardiovascular: regular rate and rhythm Gastrointestinal: normoactive bowel sounds Integumentary: normal Extremities: other (rt second toe discolored) Neurologic: normal mental status, non-focal exam CBC and BMP: 06/23/18 09:54 06/23/18 06:00 ABG, PT/INR, D-dimer: ABG POC ABG pH 7.320 (7.35-7.45) L 06/20/18 14:47 POC ABG pCO2 39.1 (35-45) 06/20/18 14:47 POC ABG pO2 87 (80-105) 06/20/18 14:47 POC ABG HCO3 20.1 (22-26 mml/L) 06/20/18 14:47 POC ABG Total CO2 21 (23-27mmol/L) 06/20/18 14:47 POC ABG O2 Sat 96 06/20/18 14:47 PT/INR, D-dimer PT 21.2 Sec. (12.2-14.9) H 06/22/18 04:51 INR 1.71 (0.87-1.13) H 06/22/18 04:51 D-Dimer 686.12 ng/mlDDU (0-234) H 06/17/18 17:50 Abnormal lab findings: Abnormal Labs 06/17/18 06/17/18 06/17/18 17:50 17:50 17:50 Hgb Hct MCH 27 L Seg Neutrophils % 71.2 H PT INR APTT D-Dimer 686.12 H Heparin Anti-Xa Level POC ABG pH POC ABG pCO2 Potassium Chloride Carbon Dioxide 21 L BUN 21 H Creatinine 1.6 H Glucose 118 H Magnesium 2.70 H Albumin 3.6 L TSH 06/18/18 06/18/18 06/19/18 05:07 20:50 11:47 Hgb Hct MCH Seg Neutrophils % PT INR APTT D-Dimer Heparin Anti-Xa Level POC ABG pH POC ABG pCO2 30.2 L Potassium Chloride 112.9 H Carbon Dioxide 19 L 16 L BUN 27 H 29 H Creatinine 1.8 H 1.6 H Glucose 241 H 182 H Magnesium Albumin TSH 06/19/18 06/19/18 06/19/18 13:34 13:34 Unknown Hgb Hct MCH Seg Neutrophils % PT INR APTT 94.9 H* D-Dimer Heparin Anti-Xa Level 1.00 H POC ABG pH POC ABG pCO2 Potassium Chloride Carbon Dioxide BUN Creatinine Glucose Magnesium Albumin TSH 0.147 L 06/20/18 06/20/18 06/20/18 06:06 14:47 20:27 Hgb Hct MCH Seg Neutrophils % PT INR APTT D-Dimer Heparin Anti-Xa Level 0.71 H POC ABG pH 7.320 L POC ABG pCO2 Potassium 5.7 H D Chloride 109.3 H Carbon Dioxide 18 L BUN 40 H Creatinine 1.8 H Glucose 148 H Magnesium Albumin TSH 06/21/18 06/22/18 06/22/18 03:47 04:51 04:51 Hgb Hct MCH Seg Neutrophils % PT 21.2 H INR 1.71 H APTT D-Dimer Heparin Anti-Xa Level 0.84 H POC ABG pH POC ABG pCO2 Potassium 5.3 H Chloride Carbon Dioxide 21 L 19 L BUN 43 H 61 H Creatinine 1.7 H 2.7 H D Glucose 138 H 155 H Magnesium Albumin TSH 06/22/18 06:43 Hgb 9.7 L Hct 28.8 L D MCH Seg Neutrophils % PT INR APTT D-Dimer Heparin Anti-Xa Level POC ABG pH POC ABG pCO2 Potassium Chloride Carbon Dioxide BUN Creatinine Glucose Magnesium Albumin TSH Allied health notes reviewed: nursing
[2018-06-22] MEDS: NACL 0.9% 1000 ML 1,000 ML IV SCH ×2 (11:02→22:17)
[2018-06-22] MEDS: SODIUM CHLORIDE FLUSH SYRINGE 10 ML IV SCH ×2 (11:06→22:23)
[2018-06-22] MEDS: LOPRESSOR PO SCH ×2 (11:08→22:22)
[2018-06-22] MEDS: BABY ASPIRIN PO SCH (11:08)
[2018-06-22] MEDS: NORVASC PO SCH (11:09)
[2018-06-22] MEDS: MUCINEX ER PO SCH ×2 (11:09→22:18)
[2018-06-22] MEDS: PEPCID PO SCH ×2 (11:09→22:19)
[2018-06-22] MEDS: ZYLOPRIM PO SCH (11:10)
[2018-06-22] MEDS: SODIUM BICARBONATE PO SCH ×2 (11:10→22:19)
[2018-06-22] MEDS ORDERED: AFLURIA QUAD 2018-2019 SYRINGE IM ONE (12:00)
--- NOTE | 2018-06-22 13:08 | Ultrasound Report ---
Sonogram right upper quadrant: History: Right lower quadrant pain. Findings: Normal aorta. Normal liver. Common bile duct diameter 2.7 mm. No intrahepatic duct dilatation. Gallbladder wall thickness 2.3 mm. No definite calculi in the gallbladder. There is extrinsic pressure on the gallbladder neck which may be from adjacent bowel. If clinically indicated CT scan may be advised. Right kidney 6.3 x 2.5 x 3.8 cm. Cortical thickness 2.9 cm normal pancreas. Incidentally noted in the pelvis the mass in the midline measuring approximate 7 cm. Impression: Findings as detailed above. Clinical correlation and if necessary further evaluation
--- NOTE | 2018-06-22 13:19 | Magnetic Resonance Report ---
MRI ABDOMEN WITHOUT CONTRAST : 06/22/18 CLINICAL: Abdominal pain. COMPARISON :06/22/18 CT abdomen TECHNIQUE: Axial T1 in phase and opposed phase, coronal and axial T2 and axial T2 fat sat sequences without contrast on a 1.5 Lisette magnet. FINDINGS: A small liver with normal contour and signal. The right lobe measures 12 cm in length. No liver mass. Normal hepatic veins and portal veins. The gallbladder and bile ducts are normal. The gallbladder is normally distended with no stones. The common bile duct is normal and measures 8 mm maximum diameter. The pancreatic head and proximal body are mildly enlarged where as the distal body and tail are relatively small. Normal pancreatic signal and no pre-pancreatic fluid or inflammatory changes. The pancreatic duct is normal. Bilateral benign renal cysts. The largest is in the lower pole of the right kidney and measures 1.9 cm. The right kidney measures 8 cm in length and the left kidney measures 7 cm in length. The spleen is small. Mild ascites with most of the fluid around the liver. Aortic tortuosity. The inferior vena cava is normal. The imaged portions of small and large bowel are normal. Pronounced edema of the posterolateral abdominal wall. IMPRESSION: 1. Small but otherwise normal liver. 2. Normal biliary tract. 3. Enlargement of the pancreatic head and proximal body suggesting possible mild acute pancreatitis. 4. No pancreatic pseudocyst. 5. Benign renal cysts. 5. Benign dependent edema of the abdominal wall.
--- NOTE | 2018-06-22 13:50 | Magnetic Resonance Report ---
MRI PELVIS WITHOUT CONTRAST: 06/22/18 CLINICAL: Pelvic mass and pelvic pain. COMPARISON :06/22/18 CT abdomen and pelvis without contrast TECHNIQUE: Sagittal, coronal and axial T1 and T2 fat sat sequences without contrast on a 1.5 Lisette magnet. FINDINGS: Considerable artifact from a left hip prosthesis degrades the quality of imaging and the lack of IV contrast limits the examination. The urinary bladder is moderately distended with a thickened but relatively smooth wall. The bladder wall measures approximately 14 mm in maximum thickness. The uterus is small and measures 6.9 x 1.2 x 4.0 cm. The uterine cavity is nondistended there is no measurable endometrial thickening. 2 collections of fluid are identified superior to the urinary bladder. The largest is relatively midline and measures 9.1 x 8.3 x 7.1 cm. There is a fluid debris level. There is a relatively thin wall to this fluid collection. A similar right-sided fluid collection is more tubular and measures 11.7 x 4.2 x 6.3 cm. This collection has a few partial septations but also has a fluid debris level and is similar in signal to the more midline fluid collection. Neither fluid collection contains air. Ovaries are not identified. Moderate free pelvic fluid. The rectum and small and large bowel loops are normal. Extensive edema of the subcutaneous soft tissues. IMPRESSION: Pelvic fluid collections measuring 11.7 and 9.1 cm in maximum dimension. The appearance is suggestive of chronic hydrosalpinx with a without infection. Despite the absence of air, abscesses cannot be excluded. They do not appear to be related to bowel but this cannot be excluded without bowel contrast. A less likely possibility is that these are tumors. A pelvic CT with both oral and IV contrast would be helpful in better delineating these fluid collections and determining their etiology.
[2018-06-22] MEDS: DILAUDID IV PRN (15:10)
[2018-06-22] MEDS ORDERED: COUMADIN PO SCH (17:00)
--- NOTE | 2018-06-22 17:56 | Consultation ---
History of Present Illness Consult date: 06/22/18 Requesting physician: HANSEL MOLINA Reason for consult: other (Postmenopausal Bleeding ) History of present illness: Thank you for this consultation. Limited history is obtained from patient. The patient is a 78-year-old -[place] female 5 para 2123 LMP at least ten years ago with multiple medical comorbidities including cardiovascular disease status post CABG, peripheral vascular disease, COPD on home oxygen 2L nasal cannula, history of DVT, hypertension, and gout was initially admitted on 06/17/2018 with shortness of breath and concern for pulmonary embolus. She has been anticoagulated during this hospitalization. Two days ago the patient began to have dark red blood in her diaper that she reports occurs after urination. The patient reports that she does not have a flute grinder and has not seen 1 in greater than 10 years. She believes her last Pap smear was 10 years ago as well. She denies a history of any other gynecologic issues. Past History Past Medical History: heart disease, hypertension, deep vein thrombosis, other (per HPI) Past Surgical History: other (vascular surgery, foot surgery ) Social history: no significant social history, smoking (former ) Medications and Allergies Allergies Allergy/AdvReac Type Severity Reaction Status Date / Time latex Allergy Hives Verified 01/23/18 09:20 milk Allergy Rash Verified 01/23/18 09:20 Home Medications Medication Instructions Recorded Confirmed Last Taken Type Ipratropium/Albuterol Sulfate 1 puff IH BID 01/23/18 06/17/18 Unknown History [Combivent Respimat] Allopurinol [Zyloprim] 100 mg PO QDAY #30 tablet 01/27/18 06/17/18 Unknown Rx Metoprolol [Lopressor TAB] 50 mg PO BID #60 tablet 01/27/18 06/17/18 Unknown Rx Montelukast [Singulair] 10 mg PO QPM #30 tablet 01/27/18 06/17/18 Unknown Rx Pravastatin [Pravachol] 40 mg PO QHS #30 tablet 01/27/18 06/17/18 Unknown Rx amLODIPine [Norvasc] 10 mg PO DAILY #30 tablet 01/27/18 06/17/18 Unknown Rx hydrALAZINE [Apresoline TAB] 100 mg PO TID #90 tab 01/27/18 06/17/18 Unknown Rx Aspirin 81 mg PO DAILY 06/17/18 06/17/18 Unknown History Famotidine [Pepcid] 20 mg PO BID 06/17/18 06/17/18 Unknown History traMADol [Ultram] 50 mg PO Q8H PRN 06/17/18 06/17/18 Unknown History Active Meds: Active Medications Acetaminophen (Tylenol) 650 mg PO Q4H PRN PRN Reason: Pain MILD(1-3)/Fever >100.5/HERRMANN Albuterol (Proventil) 2.5 mg IH Q4HRT PRN PRN Reason: Shortness Of Breath Last Admin: 06/21/18 11:42 Dose: 2.5 mg Documented by: Albuterol/Ipratropium (Duoneb *Not For Prn Use*) 1 ampul IH Q6HRT [facility] Last Admin: 06/22/18 13:01 Dose: 1 ampul Documented by: Allopurinol (Zyloprim) 100 mg PO QDAY [facility] Last Admin: 06/22/18 11:10 Dose: Not Given Documented by: Amlodipine Besylate (Norvasc) 10 mg PO DAILY [facility] Last Admin: 06/22/18 11:09 Dose: Not Given Documented by: Arformoterol Tartrate (Brovana Nebu) 15 mcg IH Q12HRT [facility] Last Admin: 06/22/18 07:25 Dose: 15 mcg Documented by: Aspirin (Baby Aspirin) 81 mg PO DAILY [facility] Last Admin: 06/22/18 11:08 Dose: Not Given Documented by: Budesonide (Pulmicort) 0.5 mg IH Q12HRT [facility] Last Admin: 06/22/18 07:25 Dose: 0.5 mg Documented by: Famotidine (Pepcid) 10 mg PO BID [facility] Last Admin: 06/22/18 11:09 Dose: Not Given Documented by: Guaifenesin (Mucinex Er) 600 mg PO BID [facility] Last Admin: 06/22/18 11:09 Dose: Not Given Documented by: Hydralazine HCl (Apresoline) 100 mg PO TID [facility] Last Admin: 06/22/18 14:12 Dose: Not Given Documented by: Hydromorphone HCl (Dilaudid) 1 mg IV Q4H PRN PRN Reason: Pain , Severe (7-10) Last Admin: 06/22/18 15:10 Dose: 1 mg Documented by: Levofloxacin/Dextrose (Levaquin 500mg/100ml) 500 mg in 100 mls @ 100 mls/hr IV Q48H [facility]; Protocol Last Admin: 06/21/18 13:30 Dose: 100 mls/hr Documented by: Sodium Chloride (Nacl 0.9% 1000 Ml) 1,000 mls @ 75 mls/hr IV DIRECT [facility] Last Admin: 06/22/18 11:02 Dose: 75 mls/hr Documented by: Methylprednisolone Sodium Succinate (Solu-Medrol) 60 mg IV Q8H [facility] Last Admin: 06/22/18 12:55 Dose: 60 mg Documented by: Metoprolol Tartrate (Lopressor) 50 mg PO BID [facility] Last Admin: 06/22/18 11:08 Dose: Not Given Documented by: Montelukast Sodium (Singulair) 10 mg PO QPM [facility] Last Admin: 06/21/18 17:30 Dose: 10 mg Documented by: Morphine Sulfate (Morphine) 2 mg IV Q4H PRN PRN Reason: Pain, Moderate (4-6) Stop: 06/23/18 16:41 Last Admin: 06/21/18 17:39 Dose: 2 mg Documented by: Ondansetron HCl (Zofran) 4 mg IV Q8H PRN PRN Reason: Nausea And Vomiting Oxycodone/Acetaminophen (Percocet 5/325) 2 tab PO Q4H PRN PRN Reason: Pain, Moderate (4-6) Pravastatin Sodium (Pravachol) 40 mg PO QHS [facility] Last Admin: 06/21/18 21:02 Dose: 40 mg Documented by: Sodium Bicarbonate (Sodium Bicarbonate) 650 mg PO BID [facility] Last Admin: 06/22/18 11:10 Dose: Not Given Documented by: Sodium Chloride (Sodium Chloride Flush Syringe 10 Ml) 10 ml IV BID [facility] Last Admin: 06/22/18 11:06 Dose: 10 ml Documented by: Sodium Chloride (Sodium Chloride Flush Syringe 10 Ml) 10 ml IV PRN PRN PRN Reason: LINE FLUSH Last Admin: 06/21/18 17:40 Dose: 10 ml Documented by: - Vital Signs Vital signs: Vital Signs Pulse Resp 87 24 06/17/18 16:12 06/17/18 16:12 Temp Pulse Resp BP Pulse Ox 97.7 F 89 20 107/61 98 06/22/18 14:03 06/22/18 14:03 06/22/18 15:10 06/22/18 14:03 06/22/18 14:03 - Physical Exam Breasts: Positive: deferred Cardiovascular: Regular rate Lungs: Positive: Other (decreased air movement in both bases ) Abdomen: Positive: soft, abnormal bowel sounds (hypoactive ). Negative: tenderness Genitourinary (Female): Positive: normal external genitalia Results Result Diagrams: 06/22/18 06:43 06/22/18 04:51 Abnormal lab results 06/22/18 06/22/18 06/22/18 Range/Units 04:51 04:51 06:43 Hgb 9.7 L (10.1-14.3) gm/dl Hct 28.8 L D (30.3-42.9) % PT 21.2 H (12.2-14.9) Sec. INR 1.71 H (0.87-1.13) Heparin Anti-Xa Level 0.84 H (0.3-0.7) U.I./ml POC ABG pCO2 (35-45) Potassium 5.3 H (3.6-5.0) mmol/L Carbon Dioxide 19 L (22-30) mmol/L BUN 61 H (7-17) mg/dL Creatinine 2.7 H D (0.7-1.2) mg/dL Glucose 155 H (65-100) mg/dL 06/22/18 Range/Units 11:40 Hgb (10.1-14.3) gm/dl Hct (30.3-42.9) % PT (12.2-14.9) Sec. INR (0.87-1.13) Heparin Anti-Xa Level (0.3-0.7) U.I./ml POC ABG pCO2 33.7 L (35-45) Potassium (3.6-5.0) mmol/L Carbon Dioxide (22-30) mmol/L BUN (7-17) mg/dL Creatinine (0.7-1.2) mg/dL Glucose (65-100) mg/dL All other labs normal. CT scan - pelvis: report reviewed Chest x-ray: report reviewed MRI: report reviewed Assessment and Plan A: Hematuria vs vaginal bleeding in the setting of anticoagulation Two pelvic masses (9.1 cm mass with thin wall and fluid debris level; 11.7 cm mass which is more tubular, septated, and contains fluid debris) No measurable endometrium on pelvic MRI Multiple medical comorbidities P: Given pt's history that bleeding only seems to occur during micturition and there is no thickening of the endometrial lining on pelvic MRI, a Urologic evaluation would be useful in this patient. It remains unclear whether this bleeding is urethral or vaginal. Additionally, given the pt's age, size and character of the pelvic masses, she would benefit from a Gynecologic-Oncology consult, though we do not have that service at this hospital. I am happy to see this pt in the office once she is discharged to facilitate obtaining an appt with a Gynecologic-Oncologist to further evaluate these masses. Please draw a Cancer Antigen -125 at her next blood draw. Please contact me if I can be of any further assistance.
[2018-06-22] MEDS: SINGULAIR PO SCH (17:58)
--- NOTE | 2018-06-22 21:56 | Progress Note ---
Assessment and Plan Assessment and plan: 78-year-old -[place]ij[place] female with history of HLD, CAD, s/p CABG, s/p stent placenets, PVD, gout, right foot swelling, COPD on 2L [place] home oxygen who presented to the ED with c/o dyspnea, cough and chronic Bilat LE pain worse on Right 2nd toe, she takes eliquis at homewhich has progressively worsened over the past few weeks. She has associated cough productive of yellow sputum, sore throat and lightheadedness. She also c/o worsening right foot pain and swelling. Rt foot XR showed postsurgical changes distal right great toe; soft tissue mass/swelling distal second toe with loss of distal part of the middle phalanx and the proximal part of the distal phalanx including the joint. 06/19/18 Bilateral arterial LE doppler reveals: Suspect significant right inflow disease. Greater than 50% stenosis in the right [employer]. Occluded right deep femoral artery and both anterior and posterior tibial arteries. Greater than 75% stenosis suspected in the right mid to distal SFA. Possible stent. Greater than 75% stenosis at the right popliteal artery. Greater than 75% stenosis suspected at the left common femoral artery bifurcation. CXR; Right basilar PNA Diagnosis Acute exacerbation of COPD; cont steroids, nebs and RT PNA; cont abx Acute on chronic respiratory failure; cont oxygen Abdominal pain; pelvic mass noted on CT a/p, with hematuria obtain MR pelvis, WASTE/MATERIALS EXCHANGE SPECIALIST consult, Urology consult, hold anticoagulation for now Acute blood loss anemia; hg dropping, stop blood thinners, monitor closely CKD stage III; stable, nephrology managing, avoid nephrotoxins CAD/PVD; cw Vasc, has chronic PAD, and needs to fup as outpatient, continue anticoagulation, plan to put back on eliquis prior to dc, on heparin ggt for now History of gout; cont allopurinol History of PE- takes Eliquis at home Hypertension; optimize BP meds History Interval history: BL LE pain is improved, c/o hematuria Review of systems Constitutional: No fevers, no malaise, no joint pains CVS: No chest pain, no orthopnea, no dyspnea on exertion, no pedal edema GI: c/o lower abdominal pain, no diarrhea, no vomiting, no constipation Respiratory: sob and wheezing is imrpoved Hospitalist Physical - Physical exam Narrative exam: General appearance: Present: mild distress - EENT Eyes: Present: PERRL, EOM intact ENT: hearing intact, poor dentition - Neck Neck: Present: supple, normal ROM - Respiratory Respiratory effort: labored Respiratory: bilateral: diminished (bases), wheezing (scattered wheezing with poor air movement) - Cardiovascular Heart rate: 93 (bpm) Rhythm: regular Heart Sounds: Present: S1 & S2. Absent: rub, click - Extremities Extremities: abnormal (discoloration of right foot, swelling to right foot, it is warm to touch, right pedal pulse diminished, prolonged capillary refill) Extremity abnormal: edema, , other (right ball thread machine tender to touch) - Peripheral Assessment no edema Peripheral Pulses: abnormal (diminished right pedal pulse) - Abdominal General gastrointestinal: soft, non-tender, normal bowel sounds - Integumentary Integumentary: Present: warm, dry - Psychiatric Psychiatric: cooperative - Constitutional Vitals: Temp Pulse Resp BP Pulse Ox 98.3 F 93 H 20 105/72 98 06/22/18 20:10 06/22/18 20:10 06/22/18 20:10 06/22/18 20:10 06/22/18 20:10 General appearance: Present: no acute distress Results - Labs CBC & Chem 7: 06/22/18 06:43 06/22/18 04:51 Labs: Laboratory Last Values WBC 7.2 K/mm3 (4.5-11.0) 06/17/18 17:50 RBC 4.52 M/mm3 (3.65-5.03) 06/17/18 17:50 Hgb 9.7 gm/dl (10.1-14.3) L 06/22/18 06:43 Hct 28.8 % (30.3-42.9) L D 06/22/18 06:43 MCV 84 fl (79-97) 06/17/18 17:50 MCH 27 pg (28-32) L 06/17/18 17:50 MCHC 33 % (30-34) 06/17/18 17:50 RDW 14.9 % (13.2-15.2) 06/17/18 17:50 Plt Count 184 K/mm3 (140-440) 06/21/18 03:47 Lymph % (Auto) 21.0 % (13.4-35.0) 06/17/18 17:50 [place] % (Auto) 6.6 % (0.0-7.3) 06/17/18 17:50 Eos % (Auto) 0.7 % (0.0-4.3) 06/17/18 17:50 Baso % (Auto) 0.5 % (0.0-1.8) 06/17/18 17:50 Lymph # 1.5 K/mm3 (1.2-5.4) 06/17/18 17:50 [place] # 0.5 K/mm3 (0.0-0.8) 06/17/18 17:50 Eos # 0.0 K/mm3 (0.0-0.4) 06/17/18 17:50 Baso # 0.0 K/mm3 (0.0-0.1) 06/17/18 17:50 Seg Neutrophils % 71.2 % (40.0-70.0) H 06/17/18 17:50 Seg Neutrophils # 5.1 K/mm3 (1.8-7.7) 06/17/18 17:50 PT 21.2 Sec. (12.2-14.9) H 06/22/18 04:51 INR 1.71 (0.87-1.13) H 06/22/18 04:51 APTT 94.9 Sec. (24.2-36.6) H* 06/19/18 13:34 D-Dimer 686.12 ng/mlDDU (0-234) H 06/17/18 17:50 Heparin Anti-Xa Level 0.84 U.I./ml (0.3-0.7) H 06/22/18 04:51 POC ABG pH 7.384 (7.35-7.45) 06/22/18 11:40 POC ABG pCO2 33.7 (35-45) L 06/22/18 11:40 POC ABG pO2 86 (80-105) 06/22/18 11:40 POC ABG HCO3 20.1 (22-26 mml/L) 06/22/18 11:40 POC ABG Total CO2 21 (23-27mmol/L) 06/22/18 11:40 POC ABG O2 Sat 97 06/22/18 11:40 POC ABG Base Excess -5 ((-2) - (+3)mmol/L) 06/22/18 11:40 FiO2 2 % 06/22/18 11:40 Sodium 139 mmol/L (137-145) 06/22/18 04:51 Potassium 5.3 mmol/L (3.6-5.0) H 06/22/18 04:51 Chloride 104.5 mmol/L (98-107) 06/22/18 04:51 Carbon Dioxide 19 mmol/L (22-30) L 06/22/18 04:51 Anion Gap 21 mmol/L 06/22/18 04:51 BUN 61 mg/dL (7-17) H 06/22/18 04:51 Creatinine 2.7 mg/dL (0.7-1.2) H D 06/22/18 04:51 Estimated GFR 21 ml/min 06/22/18 04:51 BUN/Creatinine Ratio 23 % 06/22/18 04:51 Glucose 155 mg/dL (65-100) H 06/22/18 04:51 Calcium 8.5 mg/dL (8.4-10.2) 06/22/18 04:51 Magnesium 2.70 mg/dL (1.7-2.3) H 06/17/18 17:50 Total Bilirubin 0.40 mg/dL (0.1-1.2) 06/17/18 17:50 AST 15 units/L (5-40) 06/17/18 17:50 ALT 15 units/L (7-56) 06/17/18 17:50 Alkaline Phosphatase 85 units/L (35-129) 06/17/18 17:50 Troponin T < 0.010 ng/mL (0.00-0.029) 06/18/18 05:07 Total Protein 6.3 g/dL (6.3-8.2) 06/17/18 17:50 Albumin 3.6 g/dL (3.9-5) L 06/17/18 17:50 Albumin/Globulin Ratio 1.3 % 06/17/18 17:50 TSH 0.147 mlU/mL (0.270-4.200) L 06/19/18 Unknown Free T4 1.26 ng/dL (0.76-1.46) 06/19/18 Unknown Thyroxine (T4) 6.6 ug/dL (4.0-12.0) 06/19/18 Unknown Urine Color Yellow (Yellow) 06/18/18 04:00 Urine Turbidity Slightly-cloudy (Clear) 06/18/18 04:00 Urine pH 5.0 (5.0-7.0) 06/18/18 04:00 Ur Specific [place] 1.025 (1.003-1.030) 06/18/18 04:00 Urine Protein 30 mg/dl mg/dL (Negative) 06/18/18 04:00 Urine Glucose (UA) Neg mg/dL (Negative) 06/18/18 04:00 Urine Ketones Tr mg/dL (Negative) 06/18/18 04:00 Urine Blood Lg (Negative) 06/18/18 04:00 Urine Nitrite Neg (Negative) 06/18/18 04:00 Urine Bilirubin Neg (Negative) 06/18/18 04:00 Urine Urobilinogen 2.0 mg/dL (<2.0) 06/18/18 04:00 Ur Leukocyte Esterase Neg (Negative) 06/18/18 04:00 Urine WBC (Auto) 3.0 /HPF (0.0-6.0) 06/18/18 04:00 Urine RBC (Auto) > 182.0 /HPF (0.0-6.0) 06/18/18 04:00 U Epithel Cells (Auto) 1.0 /HPF (0-13.0) 06/18/18 04:00 Hyaline Casts 26 /LPF 06/18/18 04:00 Urine Mucus Few /HPF 06/18/18 04:00 Active Medications - Current Medications Current Medications: Generic Name Dose Route Start Last Admin Trade Name Donavanq PRN Reason Stop Dose Admin Acetaminophen 650 mg 06/17/18 23:37 Tylenol PO Q4H PRN Pain MILD(1-3)/Fever >100.5/HERRMANN Albuterol 2.5 mg 06/18/18 15:46 06/21/18 11:42 Proventil IH 2.5 mg Q4HRT PRN Administration Shortness Of Breath Albuterol/Ipratropium 1 ampul 06/22/18 02:00 06/22/18 19:27 Duoneb *Not For Prn Use* IH Not Given Q6HRT [facility] Allopurinol 100 mg 06/18/18 10:00 06/22/18 11:10 Zyloprim PO Not Given QDAY [facility] Amlodipine Besylate 10 mg 06/18/18 03:02 06/22/18 11:09 Norvasc PO Not Given DAILY [facility] Arformoterol Tartrate 15 mcg 06/20/18 12:15 06/22/18 19:26 Иван Nebu IH 15 mcg Q12HRT [facility] Administration Aspirin 81 mg 06/18/18 10:00 06/22/18 11:08 Baby Aspirin PO Not Given DAILY [facility] Budesonide 0.5 mg 06/20/18 20:00 06/22/18 19:26 Pulmicort IH 0.5 mg Q12HRT [facility] Administration Famotidine 10 mg 06/18/18 10:00 06/22/18 11:09 Pepcid PO Not Given BID [facility] Guaifenesin 600 mg 06/17/18 23:45 06/22/18 11:09 Mucinex Er PO Not Given BID [facility] Hydralazine HCl 100 mg 06/18/18 03:03 06/22/18 20:14 Apresoline PO Not Given TID [facility] Hydromorphone HCl 1 mg 06/19/18 12:01 06/22/18 15:10 Dilaudid IV 1 mg Q4H PRN Administration Pain , Severe (7-10) Levofloxacin/Dextrose 500 mg in 100 mls @ 100 mls/hr 06/21/18 13:00 06/21/18 13:30 Levaquin 500mg/100ml IV 100 mls/hr Q48H [facility] Administration Protocol Sodium Chloride 1,000 mls @ 75 mls/hr 06/22/18 09:00 06/22/18 11:02 Nacl 0.9% 1000 Ml IV 75 mls/hr DIRECT [facility] Administration Methylprednisolone Sodium Succinate 60 mg 06/20/18 20:00 06/22/18 12:55 Solu-Medrol IV 60 mg Q8H [facility] Administration Metoprolol Tartrate 50 mg 06/18/18 04:00 06/22/18 11:08 Lopressor PO Not Given BID [facility] Montelukast Sodium 10 mg 06/18/18 18:00 06/22/18 17:58 Singulair PO 10 mg QPM [facility] Administration Morphine Sulfate 2 mg 06/21/18 16:42 06/21/18 17:39 Morphine IV 06/23/18 16:41 2 mg Q4H PRN Administration Pain, Moderate (4-6) Ondansetron HCl 4 mg 06/17/18 23:37 Zofran IV Q8H PRN Nausea And Vomiting Oxycodone/Acetaminophen 2 tab 06/19/18 12:01 Percocet 5/325 PO Q4H PRN Pain, Moderate (4-6) Pravastatin Sodium 40 mg 06/18/18 22:00 06/21/18 21:02 Pravachol PO 40 mg QHS [facility] Administration Sodium Bicarbonate 650 mg 06/19/18 22:00 06/22/18 11:10 Sodium Bicarbonate PO Not Given BID [facility] Sodium Chloride 10 ml 06/18/18 10:00 06/22/18 11:06 Sodium Chloride Flush Syringe 10 Ml IV 10 ml BID [facility] Administration Sodium Chloride 10 ml 06/17/18 23:37 06/21/18 17:40 Sodium Chloride Flush Syringe 10 Ml IV 10 ml PRN PRN Administration LINE FLUSH Nutrition/Malnutrition Assess - Dietary Evaluation Nutrition/Malnutrition Findings: Nutrition Notes Start: 06/22/18 16:55 Freq: Status: Active Protocol: Document 06/22/18 16:55 RM (Rec: 06/22/18 17:03 RM [id number]) Nutrition Notes Need for Assessment generated from: MST Initial or Follow up Assessment Current Diagnosis Acute Kidney Injury,CKD(stage I-IV),COPD Other Pertinent Diagnosis Lower abdominal pain Current Diet Cardiac Labs/Tests K 5.3 Pertinent Medications Solu-Medrol Height 5 ft Weight 53.8 kg Usual Body Weight 50 kg Adams Body Weight (kg) 45.45 BMI 23.1 Subjective/Other Information Screened for malnutrition and Coumadin/Vit K diet education. Pt and pt daughter in room at time of visit. Pt daughter helped answer questions. VOCATIONAL EVALUATOR pt had a good appetite and ate 3 meals daily. Pt appetite is now poor and she eats bites of her meals. Noted preferences. Pt daughter stated that pt needs food to be soft d/t throat pain. Pt declined regular ONS d/t similarity to milk. Stated UBW was 110 lbs months ago. No temporal or orbital wasting . Reviewed Coumadin/Vit K diet education. Gave handout. Burn Absent Trauma Absent #2 Nutrition Diagnosis Food and nutrition-related knowledge deficit Etiology lack of prior education As Evidenced by Signs and Symptoms no prior knowledge of need for food and nutrition recommendations #1 Nutrition Diagnosis Inadequate oral intake Etiology decreased appetite, abdominal pain, throat pain As Evidenced by Signs and Symptoms pt eating bites of her meals Is patient on ventilator? No Is Patient Ambulatory and/or Out of Bed Yes REE-([facility]-ambulatory/OOB) [ 1234.350 [id number]] Kcal/Kg value to use for calculation 27 Approximate Energy Requirements Using 1453 kcal/Kg Calculation Used for Recommendations [facility] Additional Notes Protein Needs: 42-54g (0.8-1g/ kg) Fluid Needs: 1 ml/kcal Nutrition Intervention Change Diet Order: Continue current Add Supplement/Snack (indicate name/kcal Ensure Clear 1 daily /protein ) Provides kCal: 240 Provides Protein (gm) 8 Teaching Recipient Patient,Family Learning Readiness Good Teaching Methods Discussion,Handout Response to Teaching Verbalize understanding Education Handouts Provided Vitamin K and medications Barriers to Learning No Barriers RD phone number provided Yes Patient aware of follow up options Yes Goal #1 Meet at least 75% of calorie and protein needs via PO and ONS intakes Goal #2 Adhere to diet Anticipated Discharge Needs: Cardiac diet Follow-Up By: 06/24/18 Additional Comments Follow for PO and ONS intakes
[2018-06-22] MEDS: PRAVACHOL PO SCH (22:19)
[2018-06-23] MEDS: DUONEB *Not for PRN Use IH SCH ×4 (01:38→21:40)
[2018-06-23] MEDS: DILAUDID IV PRN ×3 (01:50→22:11)
[2018-06-23] MEDS: SOLU-Medrol IV SCH ×3 (04:15→21:37)
[2018-06-23] MEDS: APRESOLINE PO SCH ×3 (08:00→21:39)
--- NOTE | 2018-06-23 08:20 | Progress Note ---
Assessment and Plan - Patient Problems (1) Chronic kidney disease, stage III (moderate) Current Visit: No Status: Chronic Plan to address problem: Fluctuation noted yesterday on labs, with SMITA on CKD in setting of gross hematuria and consequent drop in H/H. Added patient on NS @ 75 cc/hr. Transfuse PRBC to maintain HgB>7. Avoid nephrotoxins. Maintain MAP >65mmHg. Labs pending today. Will monitor renal function closely. (2) Hematuria Current Visit: Yes Status: Acute Qualifiers: Hematuria type: gross Qualified Code(s): R31.0 - Gross hematuria Plan to address problem: Patient underwent CT abdomen pelvis as well as MRI pelvis, with findings noted , pending urology evaluation. Gynecology input noted. (3) Hypertensive chronic kidney disease with stage 1 through stage 4 chronic kidney disease, or unspecified chronic kidney disease Current Visit: Yes Status: Chronic Plan to address problem: Monitor on current regimen. (4) Lower abdominal pain Current Visit: Yes Status: Acute Plan to address problem: Patient underwent CT abdomen and MRA abdomen given h/o PAD. Studies reviewed. (5) COPD (chronic obstructive pulmonary disease) Current Visit: Yes Status: Chronic Qualifiers: COPD type: COPD with acute exacerbation Qualified Code(s): J44.1 - Chronic obstructive pulmonary disease with (acute) exacerbation Plan to address problem: Management per primary attending. (6) Acute and chronic respiratory failure Current Visit: No Status: Acute Qualifiers: Respiratory failure complication: hypoxia Qualified Code(s): J96.21 - Acute and chronic respiratory failure with hypoxia Plan to address problem: Respiratory status is stable. Further management per primary attending. Subjective Date of service: 06/23/18 Principal diagnosis: CKD 3 Interval history: Continues to have gross hematuria. Gynecologic evaluation noted. Based on MRI findings and symptoms, urology consulted and pending evaluation this am. No new labs this am. Placed on continuous IVF overnight. Objective - Vital Signs Vital signs: Vital Signs - 12hr 06/22/18 06/23/18 06/23/18 22:00 01:38 01:46 Temperature 97.6 F Pulse Rate 91 H Pulse Rate [ 89 Posterior Bilateral Throughout] Respiratory 20 24 Rate Respiratory Rate [Lower Abdomen] Respiratory 16 Rate [Posterior Bilateral Throughout] Blood Pressure 129/66 O2 Sat by Pulse 99 99 Oximetry 06/23/18 06/23/18 06/23/18 01:48 01:50 02:20 Temperature Pulse Rate Pulse Rate [ 95 H Posterior Bilateral Throughout] Respiratory 20 20 Rate Respiratory 20 Rate [Lower Abdomen] Respiratory 21 Rate [Posterior Bilateral Throughout] Blood Pressure O2 Sat by Pulse Oximetry - General Appearance General appearance: appears stated age, frail EENT: ATNC, PERRL Neck: no JVD, no thyromegaly Respiratory: Present: Clear to Ascultation Cardiology: regular, S1S2 Gastrointestinal: normal, normoactive bowel sounds Integumentary: no rash, warm and dry Neurologic: no focal deficit Musculoskeletal: other (-edema) Psychiatric: mood/affect appropriate, cooperative - Lab 06/22/18 06:43 06/22/18 04:51 Most recent lab results Calcium 8.5 mg/dL (8.4-10.2) 06/22/18 04:51 Magnesium 2.70 mg/dL (1.7-2.3) H 06/17/18 17:50 - Imaging Other: report reviewed - Allied health notes Allied health notes reviewed: nursing Medications & Allergies - Medications Allergies/Adverse Reactions: Allergies latex Allergy (Verified 01/23/18 09:20) Hives milk Allergy (Verified 01/23/18 09:20) Rash Home Medications: Home Medications Medication Instructions Recorded Confirmed Last Taken Type Ipratropium/Albuterol Sulfate 1 puff IH BID 01/23/18 06/17/18 Unknown History [Combivent Respimat] Allopurinol [Zyloprim] 100 mg PO QDAY #30 tablet 01/27/18 06/17/18 Unknown Rx Metoprolol [Lopressor TAB] 50 mg PO BID #60 tablet 01/27/18 06/17/18 Unknown Rx Montelukast [Singulair] 10 mg PO QPM #30 tablet 01/27/18 06/17/18 Unknown Rx Pravastatin [Pravachol] 40 mg PO QHS #30 tablet 01/27/18 06/17/18 Unknown Rx amLODIPine [Norvasc] 10 mg PO DAILY #30 tablet 01/27/18 06/17/18 Unknown Rx hydrALAZINE [Apresoline TAB] 100 mg PO TID #90 tab 01/27/18 06/17/18 Unknown Rx Aspirin 81 mg PO DAILY 06/17/18 06/17/18 Unknown History Famotidine [Pepcid] 20 mg PO BID 06/17/18 06/17/18 Unknown History traMADol [Ultram] 50 mg PO Q8H PRN 06/17/18 06/17/18 Unknown History Active Medications: Generic Name Dose Route Start Last Admin Trade Name Freq PRN Reason Stop Dose Admin Acetaminophen 650 mg 06/17/18 23:37 Tylenol PO Q4H PRN Pain MILD(1-3)/Fever >100.5/HERRMANN Albuterol 2.5 mg 06/18/18 15:46 06/21/18 11:42 Proventil IH 2.5 mg Q4HRT PRN Administration Shortness Of Breath Albuterol/Ipratropium 1 ampul 06/22/18 02:00 06/23/18 01:38 Duoneb *Not For Prn Use* IH 1 ampul Q6HRT KVNG Administration Allopurinol 100 mg 06/18/18 10:00 06/22/18 11:10 Zyloprim PO Not Given QDAY KVNG Amlodipine Besylate 10 mg 06/18/18 03:02 06/22/18 11:09 Norvasc PO Not Given DAILY KVNG Arformoterol Tartrate 15 mcg 06/20/18 12:15 06/22/18 19:26 Brovana Nebu IH 15 mcg Q12HRT KVNG Administration Aspirin 81 mg 06/18/18 10:00 06/22/18 11:08 Baby Aspirin PO Not Given DAILY KVNG Budesonide 0.5 mg 06/20/18 20:00 06/22/18 19:26 Pulmicort IH 0.5 mg Q12HRT KVNG Administration Famotidine 10 mg 06/18/18 10:00 06/22/18 22:19 Pepcid PO 10 mg BID KVNG Administration Guaifenesin 600 mg 06/17/18 23:45 06/22/18 22:18 Mucinex Er PO 600 mg BID KVNG Administration Hydralazine HCl 100 mg 06/18/18 03:03 06/22/18 20:14 Apresoline PO Not Given TID KVNG Hydromorphone HCl 1 mg 06/19/18 12:01 06/23/18 01:50 Dilaudid IV 1 mg Q4H PRN Administration Pain , Severe (7-10) Levofloxacin/Dextrose 500 mg in 100 mls @ 100 mls/hr 06/21/18 13:00 06/21/18 13:30 Levaquin 500mg/100ml IV 100 mls/hr Q48H KVNG Administration Protocol Sodium Chloride 1,000 mls @ 75 mls/hr 06/22/18 09:00 06/22/18 22:17 Nacl 0.9% 1000 Ml IV 75 mls/hr DIRECT KVNG Administration Methylprednisolone Sodium Succinate 60 mg 06/20/18 20:00 06/23/18 04:15 Solu-Medrol IV 60 mg Q8H KVNG Administration Metoprolol Tartrate 50 mg 06/18/18 04:00 06/22/18 22:22 Lopressor PO Not Given BID KVNG Montelukast Sodium 10 mg 06/18/18 18:00 06/22/18 17:58 Singulair PO 10 mg QPM KVNG Administration Morphine Sulfate 2 mg 06/21/18 16:42 06/21/18 17:39 Morphine IV 06/23/18 16:41 2 mg Q4H PRN Administration Pain, Moderate (4-6) Ondansetron HCl 4 mg 06/17/18 23:37 Zofran IV Q8H PRN Nausea And Vomiting Oxycodone/Acetaminophen 2 tab 06/19/18 12:01 Percocet 5/325 PO Q4H PRN Pain, Moderate (4-6) Pravastatin Sodium 40 mg 06/18/18 22:00 06/22/18 22:19 Pravachol PO 40 mg QHS KVNG Administration Sodium Bicarbonate 650 mg 06/19/18 22:00 06/22/18 22:19 Sodium Bicarbonate PO 650 mg BID KVNG Administration Sodium Chloride 10 ml 06/18/18 10:00 06/22/18 22:23 Sodium Chloride Flush Syringe 10 Ml IV 10 ml BID KVNG Administration Sodium Chloride 10 ml 06/17/18 23:37 06/21/18 17:40 Sodium Chloride Flush Syringe 10 Ml IV 10 ml PRN PRN Administration LINE FLUSH
[2018-06-23 08:48] LABS: Calcium 7.6 mg/dL (8.4-10.2)
[2018-06-23] MEDS: BROVANA NEBU IH SCH ×2 (09:38→21:40)
[2018-06-23] MEDS: PULMICORT IH SCH ×2 (09:38→21:40)
[2018-06-23] MEDS: LOPRESSOR PO SCH ×2 (10:04→21:37)
[2018-06-23] MEDS: NORVASC PO SCH (10:05)
[2018-06-23 10:22] LABS: Hematocrit 22.9 % (30.3-42.9); Hemoglobin 7.5 gm/dl (10.1-14.3)
[2018-06-23 10:30] LABS: INR 2.21 (0.87-1.13)
[2018-06-23] MEDS: NACL 0.9% 1000 ML 1,000 ML IV SCH (11:18)
[2018-06-23] MEDS: SODIUM CHLORIDE FLUSH SYRINGE 10 ML IV SCH ×3 (11:19→22:11)
[2018-06-23] MEDS: SODIUM BICARBONATE PO SCH ×2 (11:26→21:39)
[2018-06-23] MEDS: MUCINEX ER PO SCH ×2 (11:26→21:38)
[2018-06-23] MEDS: PEPCID PO SCH ×2 (11:27→21:38)
[2018-06-23] MEDS: ZYLOPRIM PO SCH (11:27)
[2018-06-23] MEDS: BABY ASPIRIN PO SCH (11:27)
--- NOTE | 2018-06-23 12:14 | Progress Note ---
Assessment and Plan Assessment and plan: 78-year-old -[place] female with history of HLD, CAD, s/p CABG, s/p stent placenets, PVD, gout, right foot swelling, COPD on 2L [place] home oxygen who presented to the ED with c/o dyspnea, cough and chronic Bilat LE pain worse on Right 2nd toe, she takes eliquis at home which has progressively worsened over the past few weeks. She has associated cough productive of yellow sputum, sore throat and lightheadedness. She also c/o worsening right foot pain and swelling. Rt foot XR showed postsurgical changes distal right great toe; soft tissue mass/swelling distal second toe with loss of distal part of the middle phalanx and the proximal part of the distal phalanx including the joint. 06/19/18 Bilateral arterial LE doppler reveals: Suspect significant right inflow disease. Greater than 50% stenosis in the right COMMUNITY LIAISON. Occluded right deep femoral artery and both anterior and posterior tibial arteries. Greater than 75% stenosis suspected in the right mid to distal SFA. Possible stent. Greater than 75% stenosis at the right popliteal artery. Greater than 75% stenosis suspected at the left common femoral artery bifurcation. 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 Patient denied any abdominal pain, nausea or vomiting. Hospitalist Physical - Physical exam Narrative exam: Not in cardiopulmonary distress. The patient appeared well nourished and normally developed. Vital signs as documented. Head exam is unremarkable. No scleral icterus . Neck is without jugular venous distension, thyromegaly, or carotid bruits. Lungs are clear to auscultation. Cardiac exam reveals regular rate and Rhythm. Abdominal exam reveals normal bowel sounds. Extremities are nonedematous and both femoral and pedal pulses are normal. 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 No focal weakness. - Constitutional Vitals: Temp Pulse Resp BP Pulse Ox 97.6 F 84 20 112/62 96 06/23/18 07:43 06/23/18 09:40 06/23/18 09:40 06/23/18 07:43 06/23/18 09:41 General appearance: Present: no acute distress Results - Labs CBC & Chem 7: 06/23/18 09:54 06/23/18 06:00 Labs: Laboratory Last Values WBC 7.2 K/mm3 (4.5-11.0) 06/17/18 17:50 RBC 4.52 M/mm3 (3.65-5.03) 06/17/18 17:50 Hgb 7.5 gm/dl (10.1-14.3) L 06/23/18 09:54 Hct 22.9 % (30.3-42.9) L 06/23/18 09:54 MCV 84 fl (79-97) 06/17/18 17:50 MCH 27 pg (28-32) L 06/17/18 17:50 MCHC 33 % (30-34) 06/17/18 17:50 RDW 14.9 % (13.2-15.2) 06/17/18 17:50 Plt Count 158 K/mm3 (140-440) 06/23/18 09:54 Lymph % (Auto) 21.0 % (13.4-35.0) 06/17/18 17:50 [place] % (Auto) 6.6 % (0.0-7.3) 06/17/18 17:50 Eos % (Auto) 0.7 % (0.0-4.3) 06/17/18 17:50 Baso % (Auto) 0.5 % (0.0-1.8) 06/17/18 17:50 Lymph # 1.5 K/mm3 (1.2-5.4) 06/17/18 17:50 [place] # 0.5 K/mm3 (0.0-0.8) 06/17/18 17:50 Eos # 0.0 K/mm3 (0.0-0.4) 06/17/18 17:50 Baso # 0.0 K/mm3 (0.0-0.1) 06/17/18 17:50 Seg Neutrophils % 71.2 % (40.0-70.0) H 06/17/18 17:50 Seg Neutrophils # 5.1 K/mm3 (1.8-7.7) 06/17/18 17:50 PT 26.0 Sec. (12.2-14.9) H 06/23/18 09:54 INR 2.21 (0.87-1.13) H 06/23/18 09:54 APTT 94.9 Sec. (24.2-36.6) H* 06/19/18 13:34 686.12 ng/mlDDU (0-234) H 06/17/18 17:50 Heparin Anti-Xa Level 0.84 U.I./ml (0.3-0.7) H 06/22/18 04:51 POC ABG pH 7.384 (7.35-7.45) 06/22/18 11:40 POC ABG pCO2 33.7 (35-45) L 06/22/18 11:40 POC ABG pO2 86 (80-105) 06/22/18 11:40 POC ABG HCO3 20.1 (22-26 mml/L) 06/22/18 11:40 POC ABG Total CO2 21 (23-27mmol/L) 06/22/18 11:40 POC ABG O2 Sat 97 06/22/18 11:40 POC ABG Base Excess -5 ((-2) - (+3)mmol/L) 06/22/18 11:40 2 % 06/22/18 11:40 Sodium 136 mmol/L (137-145) L 06/23/18 06:00 Potassium 5.3 mmol/L (3.6-5.0) H 06/23/18 06:00 Chloride 103.8 mmol/L (98-107) 06/23/18 06:00 Carbon Dioxide 16 mmol/L (22-30) L 06/23/18 06:00 22 mmol/L 06/23/18 06:00 BUN 79 mg/dL (7-17) H 06/23/18 06:00 2.9 mg/dL (0.7-1.2) H 06/23/18 06:00 Estimated GFR 19 ml/min 06/23/18 06:00 27 % 06/23/18 06:00 Glucose 175 mg/dL (65-100) H 06/23/18 06:00 Calcium 7.6 mg/dL (8.4-10.2) L 06/23/18 06:00 Magnesium 2.70 mg/dL (1.7-2.3) H 06/17/18 17:50 0.40 mg/dL (0.1-1.2) 06/17/18 17:50 AST 15 units/L (5-40) 06/17/18 17:50 ALT 15 units/L (7-56) 06/17/18 17:50 85 units/L (35-129) 06/17/18 17:50 < 0.010 ng/mL (0.00-0.029) 06/18/18 05:07 6.3 g/dL (6.3-8.2) 06/17/18 17:50 3.6 g/dL (3.9-5) L 06/17/18 17:50 1.3 % 06/17/18 17:50 TSH 0.147 mlU/mL (0.270-4.200) L 06/19/18 Unknown Free T4 1.26 ng/dL (0.76-1.46) 06/19/18 Unknown 6.6 ug/dL (4.0-12.0) 06/19/18 Unknown Yellow (Yellow) 06/18/18 04:00 Slightly-cloudy (Clear) 06/18/18 04:00 5.0 (5.0-7.0) 06/18/18 04:00 Ur Specific [place] 1.025 (1.003-1.030) 06/18/18 04:00 30 mg/dl mg/dL (Negative) 06/18/18 04:00 Neg mg/dL (Negative) 06/18/18 04:00 Tr mg/dL (Negative) 06/18/18 04:00 Lg (Negative) 06/18/18 04:00 Neg (Negative) 06/18/18 04:00 Neg (Negative) 06/18/18 04:00 2.0 mg/dL (<2.0) 06/18/18 04:00 Ur Leukocyte Esterase Neg (Negative) 06/18/18 04:00 3.0 /HPF (0.0-6.0) 06/18/18 04:00 > 182.0 /HPF (0.0-6.0) 06/18/18 04:00 U Epithel Cells (Auto) 1.0 /HPF (0-13.0) 06/18/18 04:00 Hyaline Casts 26 /LPF 06/18/18 04:00 Few /HPF 06/18/18 04:00 Active Medications - Current Medications Current Medications: Generic Name Dose Route Start Last Admin Trade Name Freq PRN Reason Stop Dose Admin Acetaminophen 650 mg 06/17/18 23:37 Tylenol PO Q4H PRN Pain MILD(1-3)/Fever >100.5/HERRMANN Albuterol 2.5 mg 06/18/18 15:46 06/21/18 11:42 Proventil IH 2.5 mg Q4HRT PRN Administration Shortness Of Breath Albuterol/Ipratropium 1 ampul 06/22/18 02:00 06/23/18 09:38 Duoneb *Not For Prn Use* IH 1 ampul Q6HRT KVNG Administration Allopurinol 100 mg 06/18/18 10:00 06/23/18 11:27 Zyloprim PO 100 mg QDAY KVNG Administration Amlodipine Besylate 10 mg 06/18/18 03:02 06/23/18 10:05 Norvasc PO Not Given DAILY KVNG Arformoterol Tartrate 15 mcg 06/20/18 12:15 06/23/18 09:38 Brovana Nebu IH 15 mcg Q12HRT KVNG Administration Aspirin 81 mg 06/18/18 10:00 06/23/18 11:27 Baby Aspirin PO 81 mg DAILY KVNG Administration Budesonide 0.5 mg 06/20/18 20:00 06/23/18 09:38 Pulmicort IH 0.5 mg Q12HRT KVNG Administration Famotidine 10 mg 06/18/18 10:00 06/23/18 11:27 Pepcid PO 10 mg BID KVNG Administration Guaifenesin 600 mg 06/17/18 23:45 06/23/18 11:26 Mucinex Er PO 600 mg BID KVNG Administration Hydralazine HCl 100 mg 06/18/18 03:03 06/23/18 08:00 Apresoline PO Not Given TID KVNG Hydromorphone HCl 1 mg 06/19/18 12:01 06/23/18 01:50 Dilaudid IV 1 mg Q4H PRN Administration Pain , Severe (7-10) Levofloxacin/Dextrose 500 mg in 100 mls @ 100 mls/hr 06/21/18 13:00 06/21/18 13:30 Levaquin 500mg/100ml IV 100 mls/hr Q48H KVNG Administration Protocol Sodium Chloride 1,000 mls @ 75 mls/hr 06/22/18 09:00 06/23/18 11:18 Nacl 0.9% 1000 Ml IV 75 mls/hr DIRECT KVNG Administration Methylprednisolone Sodium Succinate 60 mg 06/20/18 20:00 06/23/18 04:15 Solu-Medrol IV 60 mg Q8H KVNG Administration Metoprolol Tartrate 50 mg 06/18/18 04:00 06/23/18 10:04 Lopressor PO Not Given BID KVNG Montelukast Sodium 10 mg 06/18/18 18:00 06/22/18 17:58 Singulair PO 10 mg QPM KVNG Administration Morphine Sulfate 2 mg 06/21/18 16:42 06/21/18 17:39 Morphine IV 06/23/18 16:41 2 mg Q4H PRN Administration Pain, Moderate (4-6) Ondansetron HCl 4 mg 06/17/18 23:37 Zofran IV Q8H PRN Nausea And Vomiting Oxycodone/Acetaminophen 2 tab 06/19/18 12:01 Percocet 5/325 PO Q4H PRN Pain, Moderate (4-6) Pravastatin Sodium 40 mg 06/18/18 22:00 06/22/18 22:19 Pravachol PO 40 mg QHS KVNG Administration Sodium Bicarbonate 650 mg 06/19/18 22:00 06/23/18 11:26 Sodium Bicarbonate PO 650 mg BID KVNG Administration Sodium Chloride 10 ml 06/18/18 10:00 06/23/18 11:19 Sodium Chloride Flush Syringe 10 Ml IV 10 ml BID KVNG Administration Sodium Chloride 10 ml 06/17/18 23:37 06/21/18 17:40 Sodium Chloride Flush Syringe 10 Ml IV 10 ml PRN PRN Administration LINE FLUSH Nutrition/Malnutrition Assess - Dietary Evaluation Nutrition/Malnutrition Findings: Nutrition Notes Start: 06/22/18 16:55 Freq: Status: Active Protocol: Document 06/22/18 16:55 RM (Rec: 06/22/18 17:03 RM [id number]) Nutrition Notes Need for Assessment generated from: [facility] Initial or Follow up Assessment Current Diagnosis Acute Kidney Injury,CKD(stage I-IV),COPD Other Pertinent Diagnosis Lower abdominal pain Current Diet Cardiac Labs/Tests K 5.3 Pertinent Medications Solu-Medrol Height 5 ft Weight 53.8 kg Usual Body Weight 50 kg [place] Body Weight (kg) 45.45 BMI 23.1 Subjective/Other Information Screened for malnutrition and Coumadin/Vit K diet education. Pt and pt daughter in room at time of visit. Pt daughter helped answer questions. 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 Pt appetite is now poor and she eats bites of her meals. Noted preferences. Pt daughter stated that pt needs food to be soft d/t throat pain. Pt declined regular ONS d/t similarity to milk. Stated UBW was 110 lbs months ago. No temporal or orbital wasting . Reviewed Coumadin/Vit K diet education. Gave handout. Burn Absent Trauma Absent #2 Nutrition Diagnosis Food and nutrition-related knowledge deficit Etiology lack of prior education As Evidenced by Signs and Symptoms no prior knowledge of need for food and nutrition recommendations #1 Nutrition Diagnosis Inadequate oral intake Etiology decreased appetite, abdominal pain, throat pain As Evidenced by Signs and Symptoms pt eating bites of her meals Is patient on ventilator? No Is Patient Ambulatory and/or Out of Bed Yes REE-([facility]-ambulatory/OOB) [ 1234.350 [id number]] Kcal/Kg value to use for calculation 27 Approximate Energy Requirements Using 1453 kcal/Kg Calculation Used for Recommendations [facility] Additional Notes Protein Needs: 42-54g (0.8-1g/ kg) Fluid Needs: 1 ml/kcal Nutrition Intervention Change Diet Order: Continue current Add Supplement/Snack (indicate name/kcal Ensure Clear 1 daily /protein ) Provides kCal: 240 Provides Protein (gm) 8 Teaching Recipient Patient,Family Learning Readiness Good Teaching Methods Discussion,Handout Response to Teaching Verbalize understanding Education Handouts Provided Vitamin K and medications Barriers to Learning No Barriers RD phone number provided Yes Patient aware of follow up options Yes Goal #1 Meet at least 75% of calorie and protein needs via PO and ONS intakes Goal #2 Adhere to diet Anticipated Discharge Needs: Cardiac diet Follow-Up By: 06/24/18 Additional Comments Follow for PO and ONS intakes
[2018-06-23] MEDS: LEVAQUIN 500MG/100ML 500 MG/100 ML BAG IV SCH (12:39)
--- NOTE | 2018-06-23 12:40 | Progress Note ---
Assessment and Plan 78 y/o female with known COPD and chronic respiratory failure 1. 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 2. Continue baseline home cannula 3. decrease roids 4. Continue long acting bronchodilator therapy 5. CXR reviewed and right lower lobe airspace disease appears to be more consistent with fluid and atelectasis. ordered IS yesterday but given findings in pelvis, may need thora to help with diagnosis but will hold for now. Subjective Date of service: 06/23/18 Principal diagnosis: CKD 3 Interval history: stable Objective Vital Signs - 12hr 06/23/18 06/23/18 06/23/18 01:38 01:46 01:48 Temperature 97.6 F Pulse Rate 91 H Pulse Rate [ 89 95 H Posterior Bilateral Throughout] Pulse Rate [ Throughout] Respiratory 24 Rate Respiratory Rate [Lower Abdomen] Respiratory 16 21 Rate [Posterior Bilateral Throughout] Respiratory Rate [ Throughout] Blood Pressure 129/66 O2 Sat by Pulse 99 Oximetry 06/23/18 06/23/18 06/23/18 01:50 02:20 07:43 Temperature 97.6 F Pulse Rate 98 H Pulse Rate [ Posterior Bilateral Throughout] Pulse Rate [ Throughout] Respiratory 20 20 18 Rate Respiratory 20 Rate [Lower Abdomen] Respiratory Rate [Posterior Bilateral Throughout] Respiratory Rate [ Throughout] Blood Pressure 112/62 O2 Sat by Pulse 98 Oximetry 06/23/18 06/23/18 06/23/18 07:45 09:40 09:41 Temperature Pulse Rate 95 H Pulse Rate [ 96 H Posterior Bilateral Throughout] Pulse Rate [ 84 Throughout] Respiratory Rate Respiratory Rate [Lower Abdomen] Respiratory 18 Rate [Posterior Bilateral Throughout] Respiratory 20 Rate [ Throughout] Blood Pressure O2 Sat by Pulse 99 96 Oximetry Constitutional: alert Eyes: non-icteric ENT: oropharynx moist Neck: supple Effort: mildly labored Ascultation: Bilateral: wheezes Percussion: Bilateral: not dull Tactile fremitus: Bilateral: normal Cardiovascular: regular rate and rhythm Gastrointestinal: normoactive bowel sounds Integumentary: normal Extremities: other (rt second toe discolored) Neurologic: normal mental status, non-focal exam CBC and BMP: 06/23/18 09:54 06/23/18 06:00 ABG, PT/INR, D-dimer: ABG POC ABG pH 7.384 (7.35-7.45) 06/22/18 11:40 POC ABG pCO2 33.7 (35-45) L 06/22/18 11:40 POC ABG pO2 86 (80-105) 06/22/18 11:40 POC ABG HCO3 20.1 (22-26 mml/L) 06/22/18 11:40 POC ABG Total CO2 21 (23-27mmol/L) 06/22/18 11:40 POC ABG O2 Sat 97 06/22/18 11:40 PT/INR, D-dimer PT 26.0 Sec. (12.2-14.9) H 06/23/18 09:54 INR 2.21 (0.87-1.13) H 06/23/18 09:54 686.12 ng/mlDDU (0-234) H 06/17/18 17:50 Abnormal lab findings: Abnormal Labs 06/17/18 06/17/18 06/17/18 17:50 17:50 17:50 Hgb Hct MCH 27 L Seg Neutrophils % 71.2 H PT INR APTT D-Dimer 686.12 H Heparin Anti-Xa Level POC ABG pH POC ABG pCO2 Sodium Potassium Chloride Carbon Dioxide 21 L BUN 21 H Creatinine 1.6 H Glucose 118 H Calcium Magnesium 2.70 H Albumin 3.6 L TSH 06/18/18 06/18/18 06/19/18 05:07 20:50 11:47 Hgb Hct MCH Seg Neutrophils % PT INR APTT D-Dimer Heparin Anti-Xa Level POC ABG pH POC ABG pCO2 30.2 L Sodium Potassium Chloride 112.9 H Carbon Dioxide 19 L 16 L BUN 27 H 29 H Creatinine 1.8 H 1.6 H Glucose 241 H 182 H Calcium Magnesium Albumin TSH 06/19/18 06/19/18 06/19/18 13:34 13:34 Unknown Hgb Hct MCH Seg Neutrophils % PT INR APTT 94.9 H* D-Dimer Heparin Anti-Xa Level 1.00 H POC ABG pH POC ABG pCO2 Sodium Potassium Chloride Carbon Dioxide BUN Creatinine Glucose Calcium Magnesium Albumin TSH 0.147 L 06/20/18 06/20/18 06/20/18 06:06 14:47 20:27 Hgb Hct MCH Seg Neutrophils % PT INR APTT D-Dimer Heparin Anti-Xa Level 0.71 H POC ABG pH 7.320 L POC ABG pCO2 Sodium Potassium 5.7 H D Chloride 109.3 H Carbon Dioxide 18 L BUN 40 H Creatinine 1.8 H Glucose 148 H Calcium Magnesium Albumin TSH 06/21/18 06/22/18 06/22/18 03:47 04:51 04:51 Hgb Hct MCH Seg Neutrophils % PT 21.2 H INR 1.71 H APTT D-Dimer Heparin Anti-Xa Level 0.84 H POC ABG pH POC ABG pCO2 Sodium Potassium 5.3 H Chloride Carbon Dioxide 21 L 19 L BUN 43 H 61 H Creatinine 1.7 H 2.7 H D Glucose 138 H 155 H Calcium Magnesium Albumin TSH 06/22/18 06/22/18 06/23/18 06:43 11:40 06:00 Hgb 9.7 L Hct 28.8 L D MCH Seg Neutrophils % PT INR APTT D-Dimer Heparin Anti-Xa Level POC ABG pH POC ABG pCO2 33.7 L Sodium 136 L Potassium 5.3 H Chloride Carbon Dioxide 16 L BUN 79 H Creatinine 2.9 H Glucose 175 H Calcium 7.6 L Magnesium Albumin TSH 06/23/18 06/23/18 09:54 09:54 Hgb 7.5 L Hct 22.9 L MCH Seg Neutrophils % PT 26.0 H INR 2.21 H APTT D-Dimer Heparin Anti-Xa Level POC ABG pH POC ABG pCO2 Sodium Potassium Chloride Carbon Dioxide BUN Creatinine Glucose Calcium Magnesium Albumin TSH Allied health notes reviewed: nursing
--- NOTE | 2018-06-23 12:55 | Consultation ---
History of Present Illness - Reason for Consult Consult date: 06/23/18 - History of Present Illness Patient is a 78-year-old -Mong[place] female with history of COPD on home oxygen who presented to the ED on account of few weeks history of worsening shortness of breath. She has associated cough productive of yellow sputum, sore throat and lightheadedness. She also has positive history of right foot swelling. She denies chest pain, fever, chills, palpitation, runny nose/congestion, orthopnea or PND. No headaches, nausea, vomiting, syncope or loss of consciousness. No abdominal pain, constipation, diarrhea, bleeding from any orifice, dysuria or frequency. CTAP - pelvic mass abd soft gross blood in toilet Hb7 (down from 12) A/P gross hematuria pelvic mass on CT needs medical clearance for cystoscopy, bx NPO after midnight may need tranfusion Past History Past Medical History: CAD, COPD (on home oxygen 2 L), hypertension, PVD, other (gout, PVD) Past Surgical History: CABG, Other (Previous peripheral arterial stent placement, feet surgery (casting of the L foot due to a Charcot's foot), bilat 1st toe bunionectomy ) Social history: no significant social history, smoking (former ) Family history: hypertension Medications and Allergies Allergies Allergy/AdvReac Type Severity Reaction Status Date / Time latex Allergy Hives Verified 01/23/18 09:20 milk Allergy Rash Verified 01/23/18 09:20 Home Medications Medication Instructions Recorded Confirmed Last Taken Type Ipratropium/Albuterol Sulfate 1 puff IH BID 01/23/18 06/17/18 Unknown History [Combivent Respimat] Allopurinol [Zyloprim] 100 mg PO QDAY #30 tablet 01/27/18 06/17/18 Unknown Rx Metoprolol [Lopressor TAB] 50 mg PO BID #60 tablet 01/27/18 06/17/18 Unknown Rx Montelukast [Singulair] 10 mg PO QPM #30 tablet 01/27/18 06/17/18 Unknown Rx Pravastatin [Pravachol] 40 mg PO QHS #30 tablet 01/27/18 06/17/18 Unknown Rx amLODIPine [Norvasc] 10 mg PO DAILY #30 tablet 01/27/18 06/17/18 Unknown Rx hydrALAZINE [Apresoline TAB] 100 mg PO TID #90 tab 01/27/18 06/17/18 Unknown Rx Aspirin 81 mg PO DAILY 06/17/18 06/17/18 Unknown History Famotidine [Pepcid] 20 mg PO BID 06/17/18 06/17/18 Unknown History traMADol [Ultram] 50 mg PO Q8H PRN 06/17/18 06/17/18 Unknown History Active Meds: Active Medications Acetaminophen (Tylenol) 650 mg PO Q4H PRN PRN Reason: Pain MILD(1-3)/Fever >100.5/HERRMANN Albuterol (Proventil) 2.5 mg IH Q4HRT PRN PRN Reason: Shortness Of Breath Last Admin: 06/21/18 11:42 Dose: 2.5 mg Documented by: Albuterol/Ipratropium (Duoneb *Not For Prn Use*) 1 ampul IH Q6HRT [facility] Last Admin: 06/23/18 09:38 Dose: 1 ampul Documented by: Allopurinol (Zyloprim) 100 mg PO QDAY [facility] Last Admin: 06/23/18 11:27 Dose: 100 mg Documented by: Amlodipine Besylate (Norvasc) 10 mg PO DAILY [facility] Last Admin: 06/23/18 10:05 Dose: Not Given Documented by: Arformoterol Tartrate (Brovana Nebu) 15 mcg IH Q12HRT [facility] Last Admin: 06/23/18 09:38 Dose: 15 mcg Documented by: Aspirin (Baby Aspirin) 81 mg PO DAILY [facility] Last Admin: 06/23/18 11:27 Dose: 81 mg Documented by: Budesonide (Pulmicort) 0.5 mg IH Q12HRT [facility] Last Admin: 06/23/18 09:38 Dose: 0.5 mg Documented by: Famotidine (Pepcid) 10 mg PO BID [facility] Last Admin: 06/23/18 11:27 Dose: 10 mg Documented by: Guaifenesin (Mucinex Er) 600 mg PO BID [facility] Last Admin: 06/23/18 11:26 Dose: 600 mg Documented by: Hydralazine HCl (Apresoline) 100 mg PO TID [facility] Last Admin: 06/23/18 08:00 Dose: Not Given Documented by: Hydromorphone HCl (Dilaudid) 1 mg IV Q4H PRN PRN Reason: Pain , Severe (7-10) Last Admin: 06/23/18 12:39 Dose: 1 mg Documented by: Levofloxacin/Dextrose (Levaquin 500mg/100ml) 500 mg in 100 mls @ 100 mls/hr IV Q48H [facility]; Protocol Last Admin: 06/23/18 12:39 Dose: 100 mls/hr Documented by: Sodium Chloride (Nacl 0.9% 1000 Ml) 1,000 mls @ 75 mls/hr IV DIRECT [facility] Last Admin: 06/23/18 11:18 Dose: 75 mls/hr Documented by: Methylprednisolone Sodium Succinate (Solu-Medrol) 60 mg IV Q8H [facility] Last Admin: 06/23/18 12:39 Dose: 60 mg Documented by: Metoprolol Tartrate (Lopressor) 50 mg PO BID [facility] Last Admin: 06/23/18 10:04 Dose: Not Given Documented by: Montelukast Sodium (Singulair) 10 mg PO QPM [facility] Last Admin: 06/22/18 17:58 Dose: 10 mg Documented by: Morphine Sulfate (Morphine) 2 mg IV Q4H PRN PRN Reason: Pain, Moderate (4-6) Stop: 06/23/18 16:41 Last Admin: 06/21/18 17:39 Dose: 2 mg Documented by: Ondansetron HCl (Zofran) 4 mg IV Q8H PRN PRN Reason: Nausea And Vomiting Oxycodone/Acetaminophen (Percocet 5/325) 2 tab PO Q4H PRN PRN Reason: Pain, Moderate (4-6) Pravastatin Sodium (Pravachol) 40 mg PO QHS [facility] Last Admin: 06/22/18 22:19 Dose: 40 mg Documented by: Sodium Bicarbonate (Sodium Bicarbonate) 650 mg PO BID [facility] Last Admin: 06/23/18 11:26 Dose: 650 mg Documented by: Sodium Chloride (Sodium Chloride Flush Syringe 10 Ml) 10 ml IV BID [facility] Last Admin: 06/23/18 11:19 Dose: 10 ml Documented by: Sodium Chloride (Sodium Chloride Flush Syringe 10 Ml) 10 ml IV PRN PRN PRN Reason: LINE FLUSH Last Admin: 06/21/18 17:40 Dose: 10 ml Documented by: Exam - Constitutional Vitals: Temp Pulse Resp BP Pulse Ox 97.6 F 84 20 112/62 96 06/23/18 07:43 06/23/18 09:40 06/23/18 09:40 06/23/18 07:43 06/23/18 09:41 Results - Labs CBC & Chem 7: 06/23/18 09:54 06/23/18 06:00 Labs: Abnormal lab results 06/23/18 06/23/18 06/23/18 Range/Units 06:00 09:54 09:54 Hgb 7.5 L (10.1-14.3) gm/dl Hct 22.9 L (30.3-42.9) % PT 26.0 H (12.2-14.9) Sec. INR 2.21 H (0.87-1.13) Sodium 136 L (137-145) mmol/L Potassium 5.3 H (3.6-5.0) mmol/L Carbon Dioxide 16 L (22-30) mmol/L BUN 79 H (7-17) mg/dL Creatinine 2.9 H (0.7-1.2) mg/dL Glucose 175 H (65-100) mg/dL Calcium 7.6 L (8.4-10.2) mg/dL
[2018-06-23] MEDS ORDERED: NACL 0.9% 500 ML 500 ML IV SCH (13:52)
[2018-06-23] MEDS: SINGULAIR PO SCH (17:23)
[2018-06-23] MEDS: PRAVACHOL PO SCH (21:38)
[2018-06-24] MEDS: NACL 0.9% 1000 ML 1,000 ML IV SCH (03:11)
[2018-06-24] MEDS: SOLU-Medrol IV SCH ×3 (03:32→21:48)
[2018-06-24 06:21] LABS: Hematocrit 22.2 % (30.3-42.9); Hemoglobin 7.5 gm/dl (10.1-14.3); Mean Corpuscular HGB Conc 34 % (30-34); Mean Corpuscular Volume 84 fl (79-97); Platelet Count 114 K/mm3 (140-440); Red Blood Count 2.65 M/mm3 (3.65-5.03); Red Cell Distribution Width 14.5 % (13.2-15.2)
[2018-06-24 06:30] LABS: INR 1.99 (0.87-1.13)
[2018-06-24 06:34] LABS: Calcium 7.4 mg/dL (8.4-10.2)
[2018-06-24] MEDS: PULMICORT IH SCH ×2 (08:21→21:12)
[2018-06-24] MEDS: BROVANA NEBU IH SCH ×2 (08:21→20:59)
[2018-06-24] MEDS: DUONEB *Not for PRN Use IH SCH ×3 (08:23→20:59)
[2018-06-24] MEDS: NORVASC PO SCH (09:42)
[2018-06-24] MEDS: BABY ASPIRIN PO SCH (09:42)
[2018-06-24] MEDS: MUCINEX ER PO SCH ×2 (09:42→21:49)
[2018-06-24] MEDS: APRESOLINE PO SCH ×3 (09:42→21:49)
[2018-06-24] MEDS: LOPRESSOR PO SCH ×2 (09:42→21:54)
[2018-06-24] MEDS: SODIUM CHLORIDE FLUSH SYRINGE 10 ML IV SCH ×2 (09:43→21:47)
[2018-06-24] MEDS: PEPCID PO SCH ×2 (09:43→21:49)
[2018-06-24] MEDS: ZYLOPRIM PO SCH (09:43)
[2018-06-24] MEDS: SODIUM BICARBONATE PO SCH ×2 (09:43→21:49)
--- NOTE | 2018-06-24 11:19 | Progress Note ---
Assessment and Plan 78 y/o female with known COPD and chronic respiratory failure 1. Follow up OB recs, needs urology as well as likely manager sustainability-onc. 2. Continue baseline home cannula 3. decrease roids 4. Continue long acting bronchodilator therapy 5. CXR reviewed and right lower lobe airspace disease appears to be more consistent with fluid and atelectasis. ordered IS yesterday but given findings in pelvis, may need thora to help with diagnosis but will hold for now. At this point, COPD is optimized and right lower lobe airspace disease appears stable. If benefits outweigh the risk, suggest proceeding with cystoscopy to obtain hopeful diagnosis to plan further treatment. Subjective Date of service: 06/24/18 Principal diagnosis: CKD 3 Interval history: No acute events. Seen by Urology yesterday afternoon. Breathing stable. Objective Vital Signs - 12hr 06/23/18 06/23/18 06/24/18 23:18 23:48 02:36 Temperature 98.1 F 98.1 F 97.5 F L Pulse Rate 84 83 86 Pulse Rate [ From Monitor] Pulse Rate [ Throughout] Respiratory 16 16 20 Rate Respiratory Rate [ Throughout] Blood Pressure 152/84 143/88 137/107 O2 Sat by Pulse 99 99 100 Oximetry 06/24/18 06/24/18 06/24/18 07:54 08:24 08:25 Temperature 98.1 F Pulse Rate 84 Pulse Rate [ From Monitor] Pulse Rate [ 90 Throughout] Respiratory 18 Rate Respiratory 16 Rate [ Throughout] Blood Pressure 140/65 O2 Sat by Pulse 98 100 Oximetry 06/24/18 09:12 Temperature Pulse Rate Pulse Rate [ 90 From Monitor] Pulse Rate [ Throughout] Respiratory Rate Respiratory Rate [ Throughout] Blood Pressure O2 Sat by Pulse Oximetry Constitutional: alert Eyes: non-icteric ENT: oropharynx moist Neck: supple Effort: mildly labored Ascultation: Bilateral: wheezes Percussion: Bilateral: not dull Tactile fremitus: Bilateral: normal Cardiovascular: regular rate and rhythm Gastrointestinal: normoactive bowel sounds Integumentary: normal Extremities: other (rt second toe discolored) Neurologic: normal mental status, non-focal exam CBC and BMP: 06/24/18 06:03 06/24/18 06:03 ABG, PT/INR, D-dimer: ABG POC ABG pH 7.384 (7.35-7.45) 06/22/18 11:40 POC ABG pCO2 33.7 (35-45) L 06/22/18 11:40 POC ABG pO2 86 (80-105) 06/22/18 11:40 POC ABG HCO3 20.1 (22-26 mml/L) 06/22/18 11:40 POC ABG Total CO2 21 (23-27mmol/L) 06/22/18 11:40 POC ABG O2 Sat 97 06/22/18 11:40 PT/INR, D-dimer PT 23.9 Sec. (12.2-14.9) H 06/24/18 06:03 INR 1.99 (0.87-1.13) H 06/24/18 06:03 686.12 ng/mlDDU (0-234) H 06/17/18 17:50 Abnormal lab findings: Abnormal Labs 06/17/18 06/17/18 06/17/18 17:50 17:50 17:50 RBC Hgb Hct MCH 27 L Plt Count Seg Neutrophils % 71.2 H PT INR APTT D-Dimer 686.12 H Heparin Anti-Xa Level POC ABG pH POC ABG pCO2 Sodium Potassium Chloride Carbon Dioxide 21 L BUN 21 H Creatinine 1.6 H Glucose 118 H Calcium Magnesium 2.70 H Albumin 3.6 L TSH Crossmatch 06/18/18 06/18/18 06/19/18 05:07 20:50 11:47 RBC Hgb Hct MCH Plt Count Seg Neutrophils % PT INR APTT D-Dimer Heparin Anti-Xa Level POC ABG pH POC ABG pCO2 30.2 L Sodium Potassium Chloride 112.9 H Carbon Dioxide 19 L 16 L BUN 27 H 29 H Creatinine 1.8 H 1.6 H Glucose 241 H 182 H Calcium Magnesium Albumin TSH Crossmatch 06/19/18 06/19/18 06/19/18 13:34 13:34 Unknown RBC Hgb Hct MCH Plt Count Seg Neutrophils % PT INR APTT 94.9 H* D-Dimer Heparin Anti-Xa Level 1.00 H POC ABG pH POC ABG pCO2 Sodium Potassium Chloride Carbon Dioxide BUN Creatinine Glucose Calcium Magnesium Albumin TSH 0.147 L Crossmatch 06/20/18 06/20/18 06/20/18 06:06 14:47 20:27 RBC Hgb Hct MCH Plt Count Seg Neutrophils % PT INR APTT D-Dimer Heparin Anti-Xa Level 0.71 H POC ABG pH 7.320 L POC ABG pCO2 Sodium Potassium 5.7 H D Chloride 109.3 H Carbon Dioxide 18 L BUN 40 H Creatinine 1.8 H Glucose 148 H Calcium Magnesium Albumin TSH Crossmatch 06/21/18 06/22/18 06/22/18 03:47 04:51 04:51 RBC Hgb Hct MCH Plt Count Seg Neutrophils % PT 21.2 H INR 1.71 H APTT D-Dimer Heparin Anti-Xa Level 0.84 H POC ABG pH POC ABG pCO2 Sodium Potassium 5.3 H Chloride Carbon Dioxide 21 L 19 L BUN 43 H 61 H Creatinine 1.7 H 2.7 H D Glucose 138 H 155 H Calcium Magnesium Albumin TSH Crossmatch 06/22/18 06/22/18 06/23/18 06:43 11:40 06:00 RBC Hgb 9.7 L Hct 28.8 L D MCH Plt Count Seg Neutrophils % PT INR APTT D-Dimer Heparin Anti-Xa Level POC ABG pH POC ABG pCO2 33.7 L Sodium 136 L Potassium 5.3 H Chloride Carbon Dioxide 16 L BUN 79 H Creatinine 2.9 H Glucose 175 H Calcium 7.6 L Magnesium Albumin TSH Crossmatch 06/23/18 06/23/18 06/23/18 09:54 09:54 14:58 RBC Hgb 7.5 L Hct 22.9 L MCH Plt Count Seg Neutrophils % PT 26.0 H INR 2.21 H APTT D-Dimer Heparin Anti-Xa Level POC ABG pH POC ABG pCO2 Sodium Potassium Chloride Carbon Dioxide BUN Creatinine Glucose Calcium Magnesium Albumin TSH Crossmatch See Detail 06/24/18 06/24/18 06/24/18 06:03 06:03 06:03 RBC 2.65 L Hgb 7.5 L Hct 22.2 L MCH Plt Count 114 L Seg Neutrophils % PT 23.9 H INR 1.99 H APTT D-Dimer Heparin Anti-Xa Level POC ABG pH POC ABG pCO2 Sodium Potassium Chloride 109.0 H Carbon Dioxide 18 L BUN 86 H Creatinine 2.7 H Glucose 161 H Calcium 7.4 L Magnesium Albumin TSH Crossmatch Allied health notes reviewed: nursing
[2018-06-24 14:23] LABS: Total Cells Counted 100
[2018-06-24 14:24] LABS: Band Neutrophils # (Manual) 0.1 K/mm3; Basophils % (Manual) 0 % (0.0-1.8); Eosinophils % (Manual) 0 % (0.0-4.3)
[2018-06-24 14:25] LABS: Platelet Estimate Consistent w Auto; RBC Morphology Normal
--- NOTE | 2018-06-24 14:41 | Progress Note ---
Assessment and Plan Assessment and plan: 78-year-old -[place] female with history of HLD, CAD, s/p CABG, s/p stent placenets, PVD, gout, right foot swelling, COPD on 2L [place] home oxygen who presented to the ED with c/o dyspnea, cough and chronic Bilat LE pain worse on Right 2nd toe, she takes eliquis at home which has progressively worsened over the past few weeks. She has associated cough productive of yellow sputum, sore throat and lightheadedness. She also c/o worsening right foot pain and swelling. Rt foot XR showed postsurgical changes distal right great toe; soft tissue mass/swelling distal second toe with loss of distal part of the middle phalanx and the proximal part of the distal phalanx including the joint. 06/19/18 Bilateral arterial LE doppler reveals: Suspect significant right inflow disease. 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 Occluded right deep femoral artery and both anterior and posterior tibial arteries. Greater than 75% stenosis suspected in the right mid to distal SFA. Possible stent. Greater than 75% stenosis at the right popliteal artery. Greater than 75% stenosis suspected at the left common femoral artery bifurcation. CXR; Right basilar PNA Diagnosis Acute exacerbation of COPD; cont steroids, nebs and RT PNA; cont abx Acute on chronic respiratory failure; cont oxygen Abdominal pain; pelvic mass noted on CT a/p, with hematuria obtain MR pelvis, STAFFING DIRECTOR consult, Urology consult, considering cystoscopy Acute blood loss anemia; patient refused blood transfusion because she is Johva witness. CKD stage III; stable, nephrology managing, avoid nephrotoxins CAD/PVD; cw Vasc, has chronic PAD, and needs to f/up as outpatient, continue anticoagulation, plan to put back on eliquis prior to discharge. History of gout; cont allopurinol History of PE- takes Eliquis at home Hypertension; optimize BP meds History Interval history: Patient was seen and evaluated this morning. Patient denied any abdominal pain, nausea or vomiting. Hematuria resolved. Hospitalist Physical - Physical exam Narrative exam: Not in cardiopulmonary distress. The patient appeared well nourished and normally developed. Vital signs as documented. Head exam is unremarkable. No scleral icterus . Neck is without jugular venous distension, thyromegaly, or carotid bruits. Lungs are clear to auscultation. Cardiac exam reveals regular rate and Rhythm. Abdominal exam reveals normal bowel sounds. Extremities are nonedematous and both femoral and pedal pulses are normal. ANGLESMITH HELPER: Alert and oriented 3. No focal weakness. - Constitutional Vitals: Temp Pulse Resp BP Pulse Ox 98.1 F 90 16 140/65 100 06/24/18 07:54 06/24/18 13:27 06/24/18 13:27 06/24/18 07:54 06/24/18 08:25 General appearance: Present: no acute distress Results - Labs CBC & Chem 7: 06/24/18 06:03 06/24/18 06:03 Labs: Laboratory Last Values WBC 8.6 K/mm3 (4.5-11.0) 06/24/18 06:03 RBC 2.65 M/mm3 (3.65-5.03) L 06/24/18 06:03 Hgb 7.5 gm/dl (10.1-14.3) L 06/24/18 06:03 Hct 22.2 % (30.3-42.9) L 06/24/18 06:03 MCV 84 fl (79-97) 06/24/18 06:03 MCH 28 pg (28-32) 06/24/18 06:03 MCHC 34 % (30-34) 06/24/18 06:03 RDW 14.5 % (13.2-15.2) 06/24/18 06:03 Plt Count 114 K/mm3 (140-440) L 06/24/18 06:03 Lymph % (Auto) 21.0 % (13.4-35.0) 06/17/18 17:50 [place] % (Auto) 6.6 % (0.0-7.3) 06/17/18 17:50 Eos % (Auto) 0.7 % (0.0-4.3) 06/17/18 17:50 Baso % (Auto) 0.5 % (0.0-1.8) 06/17/18 17:50 Lymph # 1.5 K/mm3 (1.2-5.4) 06/17/18 17:50 [place] # 0.5 K/mm3 (0.0-0.8) 06/17/18 17:50 Eos # 0.0 K/mm3 (0.0-0.4) 06/17/18 17:50 Baso # 0.0 K/mm3 (0.0-0.1) 06/17/18 17:50 Add Manual Diff Complete 06/24/18 06:03 Total Counted 100 06/24/18 06:03 Seg Neutrophils % 71.2 % (40.0-70.0) H 06/17/18 17:50 Seg Neuts % (Manual) 94.0 % (40.0-70.0) H 06/24/18 06:03 1.0 % 06/24/18 06:03 1.0 % (13.4-35.0) L 06/24/18 06:03 Reactive Lymphs % (Man) 0 % 06/24/18 06:03 3.0 % (0.0-7.3) 06/24/18 06:03 0 % (0.0-4.3) 06/24/18 06:03 0 % (0.0-1.8) 06/24/18 06:03 1.0 % 06/24/18 06:03 0 % 06/24/18 06:03 0 % 06/24/18 06:03 0 % 06/24/18 06:03 Nucleated RBC % 1.0 % (0.0-0.9) H 06/24/18 06:03 Seg Neutrophils # 5.1 K/mm3 (1.8-7.7) 06/17/18 17:50 Seg Neutrophils # Man 8.1 K/mm3 (1.8-7.7) H 06/24/18 06:03 Band Neutrophils # 0.1 K/mm3 06/24/18 06:03 0.1 K/mm3 (1.2-5.4) L 06/24/18 06:03 Abs React Lymphs (Man) 0.0 K/mm3 06/24/18 06:03 0.3 K/mm3 (0.0-0.8) 06/24/18 06:03 0.0 K/mm3 (0.0-0.4) 06/24/18 06:03 0.0 K/mm3 (0.0-0.1) 06/24/18 06:03 0.1 K/mm3 06/24/18 06:03 0.0 K/mm3 06/24/18 06:03 0.0 K/mm3 06/24/18 06:03 Blast Cells # 0.0 K/mm3 06/24/18 06:03 WBC Morphology Not Reportable 06/24/18 06:03 Hypersegmented Neuts Not Reportable 06/24/18 06:03 Hyposegmented Neuts Not Reportable 06/24/18 06:03 Hypogranular Neuts Not Reportable 06/24/18 06:03 Not Reportable 06/24/18 06:03 Not Reportable 06/24/18 06:03 Not Reportable 06/24/18 06:03 Not Reportable 06/24/18 06:03 Not Reportable 06/24/18 06:03 Not Reportable 06/24/18 06:03 Consistent w auto 06/24/18 06:03 Not Reportable 06/24/18 06:03 Plt Clumps, EDTA Not Reportable 06/24/18 06:03 Not Reportable 06/24/18 06:03 Not Reportable 06/24/18 06:03 Not Reportable 06/24/18 06:03 Plt Morphology Comment Not Reportable 06/24/18 06:03 RBC Morphology Normal 06/24/18 06:03 Dimorphic RBCs Not Reportable 06/24/18 06:03 Not Reportable 06/24/18 06:03 Not Reportable 06/24/18 06:03 Not Reportable 06/24/18 06:03 Not Reportable 06/24/18 06:03 Not Reportable 06/24/18 06:03 Not Reportable 06/24/18 06:03 Not Reportable 06/24/18 06:03 Not Reportable 06/24/18 06:03 Not Reportable 06/24/18 06:03 Not Reportable 06/24/18 06:03 Not Reportable 06/24/18 06:03 Not Reportable 06/24/18 06:03 Not Reportable 06/24/18 06:03 Not Reportable 06/24/18 06:03 Not Reportable 06/24/18 06:03 Not Reportable 06/24/18 06:03 Not Reportable 06/24/18 06:03 Not Reportable 06/24/18 06:03 Not Reportable 06/24/18 06:03 Acanthocytes (Spur) Not Reportable 06/24/18 06:03 Rouleaux Not Reportable 06/24/18 06:03 Not Reportable 06/24/18 06:03 Not Reportable 06/24/18 06:03 Not Reportable 06/24/18 06:03 Not Reportable 06/24/18 06:03 Hem Pathologist Commnt No 06/24/18 06:03 PT 23.9 Sec. (12.2-14.9) H 06/24/18 06:03 INR 1.99 (0.87-1.13) H 06/24/18 06:03 APTT 94.9 Sec. (24.2-36.6) H* 06/19/18 13:34 686.12 ng/mlDDU (0-234) H 06/17/18 17:50 Heparin Anti-Xa Level 0.84 U.I./ml (0.3-0.7) H 06/22/18 04:51 POC ABG pH 7.384 (7.35-7.45) 06/22/18 11:40 POC ABG pCO2 33.7 (35-45) L 06/22/18 11:40 POC ABG pO2 86 (80-105) 06/22/18 11:40 POC ABG HCO3 20.1 (22-26 mml/L) 06/22/18 11:40 POC ABG Total CO2 21 (23-27mmol/L) 06/22/18 11:40 POC ABG O2 Sat 97 06/22/18 11:40 POC ABG Base Excess -5 ((-2) - (+3)mmol/L) 06/22/18 11:40 2 % 06/22/18 11:40 Sodium 139 mmol/L (137-145) 06/24/18 06:03 Potassium 4.8 mmol/L (3.6-5.0) 06/24/18 06:03 Chloride 109.0 mmol/L (98-107) H 06/24/18 06:03 Carbon Dioxide 18 mmol/L (22-30) L 06/24/18 06:03 17 mmol/L 06/24/18 06:03 BUN 86 mg/dL (7-17) H 06/24/18 06:03 2.7 mg/dL (0.7-1.2) H 06/24/18 06:03 Estimated GFR 21 ml/min 06/24/18 06:03 32 % 06/24/18 06:03 Glucose 161 mg/dL (65-100) H 06/24/18 06:03 Calcium 7.4 mg/dL (8.4-10.2) L 06/24/18 06:03 Magnesium 2.70 mg/dL (1.7-2.3) H 06/17/18 17:50 0.40 mg/dL (0.1-1.2) 06/17/18 17:50 AST 15 units/L (5-40) 06/17/18 17:50 ALT 15 units/L (7-56) 06/17/18 17:50 85 units/L (35-129) 06/17/18 17:50 < 0.010 ng/mL (0.00-0.029) 06/18/18 05:07 6.3 g/dL (6.3-8.2) 06/17/18 17:50 3.6 g/dL (3.9-5) L 06/17/18 17:50 1.3 % 06/17/18 17:50 TSH 0.147 mlU/mL (0.270-4.200) L 06/19/18 Unknown Free T4 1.26 ng/dL (0.76-1.46) 06/19/18 Unknown 6.6 ug/dL (4.0-12.0) 06/19/18 Unknown Yellow (Yellow) 06/18/18 04:00 Slightly-cloudy (Clear) 06/18/18 04:00 5.0 (5.0-7.0) 06/18/18 04:00 Ur Specific [place] 1.025 (1.003-1.030) 06/18/18 04:00 30 mg/dl mg/dL (Negative) 06/18/18 04:00 Neg mg/dL (Negative) 06/18/18 04:00 Tr mg/dL (Negative) 06/18/18 04:00 Lg (Negative) 06/18/18 04:00 Neg (Negative) 06/18/18 04:00 Neg (Negative) 06/18/18 04:00 2.0 mg/dL (<2.0) 06/18/18 04:00 Ur Leukocyte Esterase Neg (Negative) 06/18/18 04:00 3.0 /HPF (0.0-6.0) 06/18/18 04:00 > 182.0 /HPF (0.0-6.0) 06/18/18 04:00 U Epithel Cells (Auto) 1.0 /HPF (0-13.0) 06/18/18 04:00 Hyaline Casts 26 /LPF 06/18/18 04:00 Few /HPF 06/18/18 04:00 Blood Type A POSITIVE 06/23/18 14:58 Antibody Screen Negative 06/23/18 14:58 Crossmatch See Detail 06/23/18 14:58 Active Medications - Current Medications Current Medications: Generic Name Dose Route Start Last Admin Trade Name Freq PRN Reason Stop Dose Admin Acetaminophen 650 mg 06/17/18 23:37 Tylenol PO Q4H PRN Pain MILD(1-3)/Fever >100.5/HERRMANN Albuterol 2.5 mg 06/18/18 15:46 06/21/18 11:42 Proventil IH 2.5 mg Q4HRT PRN Administration Shortness Of Breath Albuterol/Ipratropium 1 ampul 06/22/18 02:00 06/24/18 13:26 Duoneb *Not For Prn Use* IH 1 ampul Q6HRT [facility] Administration Allopurinol 100 mg 06/18/18 10:00 06/24/18 09:43 Zyloprim PO Not Given QDAY [facility] Amlodipine Besylate 10 mg 06/18/18 03:02 06/24/18 09:42 Norvasc PO Not Given DAILY [facility] Arformoterol Tartrate 15 mcg 06/20/18 12:15 06/24/18 08:21 Brovana Nebu IH 15 mcg Q12HRT [facility] Administration Aspirin 81 mg 06/18/18 10:00 06/24/18 09:42 Baby Aspirin PO Not Given DAILY [facility] Budesonide 0.5 mg 06/20/18 20:00 06/24/18 08:21 Pulmicort IH 0.5 mg Q12HRT [facility] Administration Famotidine 10 mg 06/18/18 10:00 06/24/18 09:43 Pepcid PO Not Given BID [facility] Guaifenesin 600 mg 06/17/18 23:45 06/24/18 09:42 Mucinex Er PO Not Given BID [facility] Hydralazine HCl 100 mg 06/18/18 03:03 06/24/18 13:37 Apresoline PO 100 mg TID [facility] Administration Hydromorphone HCl 1 mg 06/19/18 12:01 06/23/18 22:11 Dilaudid IV 1 mg Q4H PRN Administration Pain , Severe (7-10) Levofloxacin/Dextrose 500 mg in 100 mls @ 100 mls/hr 06/21/18 13:00 06/23/18 12:39 Levaquin 500mg/100ml IV 100 mls/hr Q48H [facility] Administration Protocol Sodium Chloride 1,000 mls @ 75 mls/hr 06/22/18 09:00 06/24/18 03:11 Nacl 0.9% 1000 Ml IV 75 mls/hr DIRECT [facility] Administration Methylprednisolone Sodium Succinate 60 mg 06/20/18 20:00 06/24/18 13:31 Solu-Medrol IV 60 mg Q8H [facility] Administration Metoprolol Tartrate 50 mg 06/18/18 04:00 06/24/18 09:42 Lopressor PO Not Given BID [facility] Montelukast Sodium 10 mg 06/18/18 18:00 06/23/18 17:23 Singulair PO 10 mg QPM [facility] Administration Ondansetron HCl 4 mg 06/17/18 23:37 Zofran IV Q8H PRN Nausea And Vomiting Oxycodone/Acetaminophen 2 tab 06/19/18 12:01 Percocet 5/325 PO Q4H PRN Pain, Moderate (4-6) Pravastatin Sodium 40 mg 06/18/18 22:00 06/23/18 21:38 Pravachol PO 40 mg QHS KVNG Administration Sodium Bicarbonate 650 mg 06/19/18 22:00 06/24/18 09:43 Sodium Bicarbonate PO Not Given BID KVNG Sodium Chloride 10 ml 06/18/18 10:00 06/24/18 09:43 Sodium Chloride Flush Syringe 10 Ml IV Not Given BID KVNG Sodium Chloride 10 ml 06/17/18 23:37 06/21/18 17:40 Sodium Chloride Flush Syringe 10 Ml IV 10 ml PRN PRN Administration LINE FLUSH Nutrition/Malnutrition Assess - Dietary Evaluation Nutrition/Malnutrition Findings: Nutrition Notes Start: 06/22/18 16:55 Freq: Status: Active Protocol: Document 05/08/19 13:44 CP (Rec: 06/24/18 13:46 CP [id number]) Co-Sign 06/24/18 13:44 LP Nutrition Notes Initial or Follow up Brief Note Current Diagnosis Acute Kidney Injury,CKD(stage I-IV),COPD Other Pertinent Diagnosis Lower abdominal pain Current Diet NPO after midnight Subjective/Other Information F/U for PO/ONS intakes. Pt is currently NPO but requested to be put on a mechanical soft diet when NPO status is lifted . Nutrition Intervention Follow-Up By: 06/26/18 Additional Comments Follow for PO and ONS intakes
[2018-06-24] MEDS ORDERED: XYLOCAINE MPF 2% ONE (16:22)
[2018-06-24] MEDS ORDERED: DIPRIVAN 10 MG/ML IV ONE (16:23)
[2018-06-24] MEDS ORDERED: SUBLIMAZE ONE (16:23)
--- NOTE | 2018-06-24 16:23 | Anesthesia Day of Surgery ---
Anesthesia Day of Surgery - Day of Surgery Patient Examined: Yes Patient H&P Reviewed: Yes Patient is NPO: Yes Beta Blockers: No Cardiac Clearance: No Pulmonary Clearance: No Herb's Test: N/A
[2018-06-24] MEDS ORDERED: LACTATED RINGERS 1,000 ML ONE (16:25)
--- NOTE | 2018-06-24 16:26 | Anesthesia Consultation ---
Anesthesia Consult and Med Hx Date of service: 06/24/18 - Airway Anesthetic Teeth Evaluation: Poor ROM Head & Neck: Adequate Mental/Hyoid Distance: Adequate Mallampati Class: Class II - Pulmonary Exam CTA: No (inspiratory crackles, wheezing ) - Pre-Operative Health Status ASA Pre-Surgery Classification: ASA4 Proposed Anesthetic Plan: General, MAC - Pulmonary Hx Smoking: Yes Hx Asthma: Yes COPD: Yes Hx Pneumonia: No Hx Sleep Apnea: No - Cardiovascular System Hx Hypertension: Yes Hx Coronary Artery Disease: Yes (+ CHF; s/p CABG 2007) Hx Heart Attack/AMI: Yes Hx Angina: No Hx Pacemaker: No Hx Internal Defibrillator: No Hx Peripheral Vascular Disease: Yes - Central Nervous System CVA: Yes Hx Psychiatric Problems: No - Gastrointestinal Hx Gastroesophageal Reflux Disease: Yes (CONTROLLED W/ MEDS) - Endocrine Hx Renal Disease: Yes Hx End Stage Renal Disease: No Hx Non-Insulin Dependent Diabetes: Yes (NO MEDS, diet controlled) Hx Thyroid Disease: No - Hematic Hx Anemia: No - Other Systems Hx Substance Use: Yes (DENIES CURRENT USE;) Hx Cancer: No Hx Obesity: No - Additional Comments Anesthesia Medical History Comments: - COPD and chronic respiratory failure on baseline 2L N/C. long acting bronchodilator therapy. - CXR reviewed and right lower lobe airspace disease appears to be more consistent with fluid and atelectasis. - At this point, COPD is optimized and right lower lobe airspace disease appears stable. -CKD 3: on labs, with SMITA on CKD in setting of gross hematuria and consequent drop in H/H.
[2018-06-24] MEDS ORDERED: OMNIPAQUE 300 MG/50 ML (CATH LAB) IV ONE (17:10)
--- NOTE | 2018-06-24 17:25 | Post Operative Note ---
Date of procedure: 06/24/18 Pre-op diagnosis: hematuria, pelvic mass Post-op diagnosis: other (mass not in bladder, + patchy erythema - bx done) Procedure: cysto, rpg, bladdr bx, cystogram Anesthesia: GETA Surgeon: FRANCHESKA AYALA Estimated blood loss: minimal Pathology: list (bladder lesions) Specimen disposition: to lab Condition: stable Disposition: PACU
--- NOTE | 2018-06-24 17:30 | Event Note ---
Date: 06/24/18 update (cysto) pt has external hemrrhoids also this may also cause bleeding mass is note in bladder maybe EQUINE PHARMACOLOGY TECHNICIAN pr GI in nature
--- NOTE | 2018-06-24 18:22 | Progress Note ---
Assessment and Plan - Patient Problems (1) Chronic kidney disease, stage III (moderate) Status: Acute Plan to address problem: Kidney function stable at baseline/marginally better. Discharge planning per primary attending (2) COPD exacerbation Status: Acute Plan to address problem: Continue management by primary attending (3) Hypertensive chronic kidney disease with stage 1 through stage 4 chronic kidney disease, or unspecified chronic kidney disease Status: Chronic Plan to address problem: Blood pressure has improved. Follow up blood pressure on current medications (4) Acute and chronic respiratory failure Status: Acute Qualifiers: Respiratory failure complication: hypoxia Qualified Code(s): J96.21 - Acute and chronic respiratory failure with hypoxia Plan to address problem: Continue management by primary attending (5) Lower abdominal pain Status: Acute Plan to address problem: s/p cystoscopy, fulguration of bladder lesions and biopsy. Follow-up histology Subjective Date of service: 06/24/18 Principal diagnosis: CKD 3 Interval history: Patient seen lying in bed. She is in the recovery rooms. Still a bit drowsy Objective - Exam Narrative Exam: Elderly female on BiPAP i HEENT: NCAT, pink oral mucous membrane Neck: Supple, no venous distention CVS: S1S2 RRR with no murmur, rub or gallop Chest: Few scattered rales lower zones Abdomen: Protuberant, soft, suprapubic fullness and tenderness, no organomegaly, bowel sounds are present Extremities: Mild edema Neuro: Awake, alert no focal deficits - Vital Signs Vital signs: Vital Signs - 12hr 06/24/18 06/24/18 06/24/18 07:54 08:24 08:25 Temperature 98.1 F Pulse Rate 84 Pulse Rate [ From Monitor] Pulse Rate [ Posterior Bilateral Throughout] Pulse Rate [ 90 Throughout] Respiratory 18 Rate Respiratory Rate [Posterior Bilateral Throughout] Respiratory 16 Rate [ Throughout] Blood Pressure 140/65 O2 Sat by Pulse 98 100 Oximetry 06/24/18 06/24/18 06/24/18 09:12 13:27 14:50 Temperature 99.6 F Pulse Rate 90 Pulse Rate [ 90 From Monitor] Pulse Rate [ 88 Posterior Bilateral Throughout] Pulse Rate [ 90 Throughout] Respiratory 22 Rate Respiratory 16 Rate [Posterior Bilateral Throughout] Respiratory 16 Rate [ Throughout] Blood Pressure 146/71 O2 Sat by Pulse 100 Oximetry 06/24/18 06/24/18 06/24/18 15:54 17:34 17:40 Temperature 99.6 F 99.0 F Pulse Rate 90 95 H 91 H Pulse Rate [ From Monitor] Pulse Rate [ Posterior Bilateral Throughout] Pulse Rate [ Throughout] Respiratory 22 16 17 Rate Respiratory Rate [Posterior Bilateral Throughout] Respiratory Rate [ Throughout] Blood Pressure 146/71 156/75 155/75 O2 Sat by Pulse 100 98 100 Oximetry 06/24/18 06/24/18 06/24/18 17:45 17:50 18:05 Temperature Pulse Rate 89 86 85 Pulse Rate [ From Monitor] Pulse Rate [ Posterior Bilateral Throughout] Pulse Rate [ Throughout] Respiratory 16 15 20 Rate Respiratory Rate [Posterior Bilateral Throughout] Respiratory Rate [ Throughout] Blood Pressure 156/76 149/78 150/72 O2 Sat by Pulse 100 100 99 Oximetry - Lab 06/25/18 05:37 06/25/18 05:37 Most recent lab results Calcium 7.4 mg/dL (8.4-10.2) L 06/24/18 06:03 Magnesium 2.70 mg/dL (1.7-2.3) H 06/17/18 17:50 Medications & Allergies - Medications Allergies/Adverse Reactions: Allergies latex Allergy (Verified 01/23/18 09:20) Hives milk Allergy (Verified 01/23/18 09:20) Rash Home Medications: Home Medications Medication Instructions Recorded Confirmed Last Taken Type Ipratropium/Albuterol Sulfate 1 puff IH BID 01/23/18 06/17/18 Unknown History [Combivent Respimat] Allopurinol [Zyloprim] 100 mg PO QDAY #30 tablet 01/27/18 06/17/18 Unknown Rx Metoprolol [Lopressor TAB] 50 mg PO BID #60 tablet 01/27/18 06/17/18 Unknown Rx Montelukast [Singulair] 10 mg PO QPM #30 tablet 01/27/18 06/17/18 Unknown Rx Pravastatin [Pravachol] 40 mg PO QHS #30 tablet 01/27/18 06/17/18 Unknown Rx amLODIPine [Norvasc] 10 mg PO DAILY #30 tablet 01/27/18 06/17/18 Unknown Rx hydrALAZINE [Apresoline TAB] 100 mg PO TID #90 tab 01/27/18 06/17/18 Unknown Rx Famotidine [Pepcid] 20 mg PO BID 06/17/18 06/17/18 Unknown History traMADol [Ultram 50 MG tab] 50 mg PO Q8H PRN 06/17/18 06/17/18 Unknown History ALBUTEROL NEB's [Proventil 0.083% 2.5 mg IH Q4HRT PRN #60 nebu 06/25/18 Unknown Rx NEBS] Budesonide [Pulmicort Respules] 0.5 mg IH Q12HRT #60 nebu 06/25/18 Unknown Rx Prednisone [predniSONE 10 mg 10 mg PO .TAPER #1 tab.ds.pk 06/25/18 Unknown Rx (6-Day Pack, 21 Tabs)] Sodium Bicarbonate 650 mg PO BID #60 tablet 06/25/18 Unknown Rx Active Medications: Generic Name Dose Route Start Last Admin Trade Name Freq PRN Reason Stop Dose Admin Acetaminophen 650 mg 06/17/18 23:37 Tylenol PO Q4H PRN Pain MILD(1-3)/Fever >100.5/HERRMANN Albuterol 2.5 mg 06/18/18 15:46 06/21/18 11:42 Proventil IH 2.5 mg Q4HRT PRN Administration Shortness Of Breath Albuterol/Ipratropium 1 ampul 06/22/18 02:00 06/24/18 13:26 Duoneb *Not For Prn Use* IH 1 ampul Q6HRT KVNG Administration Allopurinol 100 mg 06/18/18 10:00 06/24/18 09:43 Zyloprim PO Not Given QDAY KVNG Amlodipine Besylate 10 mg 06/18/18 03:02 06/24/18 09:42 Norvasc PO Not Given DAILY KVNG Arformoterol Tartrate 15 mcg 06/20/18 12:15 06/24/18 08:21 Brovana Nebu IH 15 mcg Q12HRT KVNG Administration Aspirin 81 mg 06/18/18 10:00 06/24/18 09:42 Baby Aspirin PO Not Given DAILY KVNG Budesonide 0.5 mg 06/20/18 20:00 06/24/18 08:21 Pulmicort IH 0.5 mg Q12HRT KVNG Administration Famotidine 10 mg 06/18/18 10:00 06/24/18 09:43 Pepcid PO Not Given BID KVNG Guaifenesin 600 mg 06/17/18 23:45 06/24/18 09:42 Mucinex Er PO Not Given BID KVNG Hydralazine HCl 100 mg 06/18/18 03:03 06/24/18 13:37 Apresoline PO 100 mg TID KVNG Administration Hydromorphone HCl 1 mg 06/19/18 12:01 06/23/18 22:11 Dilaudid IV 1 mg Q4H PRN Administration Pain , Severe (7-10) Levofloxacin/Dextrose 500 mg in 100 mls @ 100 mls/hr 06/21/18 13:00 06/23/18 12:39 Levaquin 500mg/100ml IV 100 mls/hr Q48H KVNG Administration Protocol Sodium Chloride 1,000 mls @ 75 mls/hr 06/22/18 09:00 06/24/18 03:11 Nacl 0.9% 1000 Ml IV 75 mls/hr DIRECT KVNG Administration Methylprednisolone Sodium Succinate 60 mg 06/20/18 20:00 06/24/18 13:31 Solu-Medrol IV 60 mg Q8H KVNG Administration Metoprolol Tartrate 50 mg 06/18/18 04:00 06/24/18 09:42 Lopressor PO Not Given BID KVNG Montelukast Sodium 10 mg 06/18/18 18:00 06/23/18 17:23 Singulair PO 10 mg QPM KVNG Administration Ondansetron HCl 4 mg 06/17/18 23:37 Zofran IV Q8H PRN Nausea And Vomiting Oxycodone/Acetaminophen 2 tab 06/19/18 12:01 Percocet 5/325 PO Q4H PRN Pain, Moderate (4-6) Pravastatin Sodium 40 mg 06/18/18 22:00 06/23/18 21:38 Pravachol PO 40 mg QHS KVNG Administration Sodium Bicarbonate 650 mg 06/19/18 22:00 06/24/18 09:43 Sodium Bicarbonate PO Not Given BID KVNG Sodium Chloride 10 ml 06/18/18 10:00 06/24/18 09:43 Sodium Chloride Flush Syringe 10 Ml IV Not Given BID KVNG Sodium Chloride 10 ml 06/17/18 23:37 06/21/18 17:40 Sodium Chloride Flush Syringe 10 Ml IV 10 ml PRN PRN Administration LINE FLUSH
--- NOTE | 2018-06-24 18:57 | Operative Report ---
PREOPERATIVE DIAGNOSIS: Pelvic mass, hematuria. POSTOPERATIVE DIAGNOSES: Pelvic mass, hematuria. PROCEDURE: Cystoscopy, bilateral retrograde pyelograms, cystogram, biopsy of bladder lesions. SURGEON: Gibson Ruffin MD ANESTHESIA: General. ESTIMATED BLOOD LOSS: Minimal. FLUIDS: Crystalloid. COMPLICATIONS: No complications. INDICATIONS: This is a 78-year-old female, who was admitted through the department for shortness of breath. The patient was due to have some type of procedure by Dr. Pamela Rivera for peripheral vascular disease. She started coughing and subsequently presented to the Emergency Room. She is a former smoker. She was also found to have what appeared to be blood per in hematuria and abdominal pain. CT of abdomen and pelvis revealed the cystic mass in the pelvis approximately 6.5 cm of unknown etiology. Based on these findings, Urology was consulted. DESCRIPTION OF PROCEDURE: The patient was taken to the operative suite, placed in a supine position. After adequate general anesthesia, she was placed in a dorsal lithotomy position, prepped and draped in a sterile fashion. On external exam, she had obvious external hemorrhoids. Pelvic exam under anesthesia, you could palpate grapefruit size mass in the pelvis. Cystoscopy was performed. No obvious mass could be appreciated in the bladder. There was some patchy erythema diffusely. Both ureteral orifices were in normal position. No stones or tumors noted. Bilateral retrograde pyelograms were obtained with an 8 Welsh Giles catheter and 8 mL of contrast. No filling defects or obstruction could be appreciated. Alphonso Cup biopsy forceps was used, biopsy of 3 different areas of this patchy erythema was obtained with fulguration. Specimen was sent for routine pathologic evaluation. Cystogram, no extravasation. Bladder was drained. She was extubated and taken to the recovery room in stable condition. JOB# [id number] [facility]
[2018-06-24] MEDS: SINGULAIR PO SCH (19:06)
[2018-06-24] MEDS: PRAVACHOL PO SCH (21:49)
[2018-06-25] MEDS: DUONEB *Not for PRN Use IH SCH ×3 (03:24→14:10)
[2018-06-25] MEDS: SOLU-Medrol IV SCH (04:14)
[2018-06-25 06:22] LABS: Hematocrit 21.8 % (30.3-42.9); Hemoglobin 7.4 gm/dl (10.1-14.3)
[2018-06-25 06:34] LABS: INR 1.67 (0.87-1.13)
[2018-06-25 06:37] LABS: Calcium 7.6 mg/dL (8.4-10.2)
--- NOTE | 2018-06-25 07:52 | Fluoroscopy Report ---
FLUORO RETROGRADE UROGRAPHY FLUORO CYSTOGRAM STATIC - OR INDICATION: Gross hematuria. COMPARISON: None similar. IMAGES/CINE CLIPS: 7+3 FINDINGS: Automatic Centrifugal Station Operator view demonstrates left hip arthroplasty, left iliac stent, numerous pelvic vascular calcifications and sternotomy wires. Submitted 7 fluoroscopic images demonstrate normal opacification and caliber of both ureters. No persistent suspicious filling defects. No hydronephrosis. Some motion artifact. Submitted 3 images for the cystogram suggest grossly normal urinary bladder contours with complete drainage. CONCLUSION: Intraoperative fluoroscopic assistance provided for bilateral retrograde pyelogram, cystoscopy/cystogram, biopsy and fulguration of bladder lesions. Please also correlate with Dr. Ruffin's procedure notes. Thank you for the opportunity to participate in this patient's care.
[2018-06-25] MEDS: BROVANA NEBU IH SCH (08:20)
[2018-06-25] MEDS: PULMICORT IH SCH (08:21)
[2018-06-25] MEDS: ZYLOPRIM PO SCH (09:12)
[2018-06-25] MEDS: MUCINEX ER PO SCH (09:13)
[2018-06-25] MEDS: SODIUM BICARBONATE PO SCH (09:13)
[2018-06-25] MEDS: BABY ASPIRIN PO SCH (09:13)
[2018-06-25] MEDS: APRESOLINE PO SCH (09:13)
[2018-06-25] MEDS: PEPCID PO SCH (09:13)
[2018-06-25] MEDS: LOPRESSOR PO SCH (09:14)
[2018-06-25] MEDS: NORVASC PO SCH (09:14)
[2018-06-25 09:15] VITALS: BP 153/98
[2018-06-25] MEDS: SODIUM CHLORIDE FLUSH SYRINGE 10 ML IV SCH (09:15)
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
--- NOTE | 2018-06-25 10:29 | Progress Note ---
Assessment and Plan - Patient Problems (1) Chronic kidney disease, stage III (moderate) Current Visit: No Status: Chronic Plan to address problem: Overall renal function is improving with adequate fluid hydration. From a nephrology standpoint patient is stable for D/C with need for follow up in 1-2 weeks post discharge. (2) Hematuria Current Visit: Yes Status: Acute Qualifiers: Hematuria type: gross Qualified Code(s): R31.0 - Gross hematuria Plan to address problem: s/p cystoscopy with no evidence of bladder mass per urology. She will need to follow up with gynecology as outpatient. (3) Hypertensive chronic kidney disease with stage 1 through stage 4 chronic kidney disease, or unspecified chronic kidney disease Current Visit: Yes Status: Chronic Plan to address problem: Monitor on current regimen. (4) Lower abdominal pain Current Visit: Yes Status: Acute Plan to address problem: Patient underwent CT abdomen and MRA abdomen given h/o PAD. Studies reviewed. Overall abdominal pain has improved at this time. (5) COPD (chronic obstructive pulmonary disease) Current Visit: Yes Status: Chronic Qualifiers: COPD type: COPD with acute exacerbation Qualified Code(s): J44.1 - Chronic obstructive pulmonary disease with (acute) exacerbation Plan to address problem: Management per primary attending. (6) Acute and chronic respiratory failure Current Visit: No Status: Acute Qualifiers: Respiratory failure complication: hypoxia Qualified Code(s): J96.21 - Acute and chronic respiratory failure with hypoxia Plan to address problem: Respiratory status is stable. Further management per primary attending. Subjective Date of service: 06/25/18 Principal diagnosis: CKD 3 Interval history: No acute issues overnight. She denies any gross hematuria over night. Labs noted and renal function is stable with slight improvement noted with fluid hydration. S/P cystoscopy with no evidence of bladder mass noted per urology noted. Objective - Vital Signs Vital signs: Vital Signs - 12hr 06/25/18 06/25/18 06/25/18 00:26 01:58 03:16 Temperature 97.8 F Pulse Rate 80 80 Pulse Rate [ 78 Anterior Bilateral Upper Lobe] Respiratory 16 20 Rate Respiratory 20 Rate [Anterior Bilateral Upper Lobe] Blood Pressure 135/70 O2 Sat by Pulse 100 100 Oximetry 06/25/18 06/25/18 06/25/18 03:26 07:33 07:34 Temperature 99.1 F Pulse Rate 83 83 Pulse Rate [ 80 Anterior Bilateral Upper Lobe] Respiratory 20 20 Rate Respiratory 18 Rate [Anterior Bilateral Upper Lobe] Blood Pressure 153/64 O2 Sat by Pulse 98 99 Oximetry 06/25/18 09:14 Temperature Pulse Rate Pulse Rate [ Anterior Bilateral Upper Lobe] Respiratory Rate Respiratory Rate [Anterior Bilateral Upper Lobe] Blood Pressure 153/98 O2 Sat by Pulse Oximetry - General Appearance General appearance: well-nourished, appears stated age EENT: ATNC, PERRL Neck: no JVD, no thyromegaly Respiratory: Present: Clear to Ascultation, Normal Exam Cardiology: regular, normal heart rate, S1S2 Gastrointestinal: normal, normoactive bowel sounds Integumentary: no rash, warm and dry Neurologic: no focal deficit Musculoskeletal: other (-edema ) Psychiatric: mood/affect appropriate - Lab 06/25/18 05:37 06/25/18 05:37 Most recent lab results Calcium 7.6 mg/dL (8.4-10.2) L 06/25/18 05:37 Magnesium 2.70 mg/dL (1.7-2.3) H 06/17/18 17:50 - Allied health notes Allied health notes reviewed: nursing Medications & Allergies - Medications Allergies/Adverse Reactions: Allergies latex Allergy (Verified 01/23/18 09:20) Hives milk Allergy (Verified 01/23/18 09:20) Rash Home Medications: Home Medications Medication Instructions Recorded Confirmed Last Taken Type Ipratropium/Albuterol Sulfate 1 puff IH BID 01/23/18 06/17/18 Unknown History [Combivent Respimat] Allopurinol [Zyloprim] 100 mg PO QDAY #30 tablet 01/27/18 06/17/18 Unknown Rx Metoprolol [Lopressor TAB] 50 mg PO BID #60 tablet 01/27/18 06/17/18 Unknown Rx Montelukast [Singulair] 10 mg PO QPM #30 tablet 01/27/18 06/17/18 Unknown Rx Pravastatin [Pravachol] 40 mg PO QHS #30 tablet 01/27/18 06/17/18 Unknown Rx amLODIPine [Norvasc] 10 mg PO DAILY #30 tablet 01/27/18 06/17/18 Unknown Rx hydrALAZINE [Apresoline TAB] 100 mg PO TID #90 tab 01/27/18 06/17/18 Unknown Rx Famotidine [Pepcid] 20 mg PO BID 06/17/18 06/17/18 Unknown History traMADol [Ultram 50 MG tab] 50 mg PO Q8H PRN 06/17/18 06/17/18 Unknown History ALBUTEROL NEB's [Proventil 0.083% 2.5 mg IH Q4HRT PRN #60 nebu 06/25/18 Unknown Rx NEBS] Budesonide [Pulmicort Respules] 0.5 mg IH Q12HRT #60 nebu 06/25/18 Unknown Rx Prednisone [predniSONE 10 mg 10 mg PO .TAPER #1 tab.ds.pk 06/25/18 Unknown Rx (6-Day Pack, 21 Tabs)] Sodium Bicarbonate 650 mg PO BID #60 tablet 06/25/18 Unknown Rx Active Medications: Generic Name Dose Route Start Last Admin Trade Name Freq PRN Reason Stop Dose Admin Acetaminophen 650 mg 06/17/18 23:37 Tylenol PO Q4H PRN Pain MILD(1-3)/Fever >100.5/HERRMANN Albuterol 2.5 mg 06/18/18 15:46 06/21/18 11:42 Proventil IH 2.5 mg Q4HRT PRN Administration Shortness Of Breath Albuterol/Ipratropium 1 ampul 06/22/18 02:00 06/25/18 08:20 Duoneb *Not For Prn Use* IH 1 ampul Q6HRT KVNG Administration Allopurinol 100 mg 06/18/18 10:00 06/25/18 09:12 Zyloprim PO 100 mg QDAY KVNG Administration Amlodipine Besylate 10 mg 06/18/18 03:02 06/25/18 09:14 Norvasc PO 10 mg DAILY KVNG Administration Arformoterol Tartrate 15 mcg 06/20/18 12:15 06/25/18 08:20 Brovana Nebu IH 15 mcg Q12HRT KVNG Administration Aspirin 81 mg 06/18/18 10:00 06/25/18 09:13 Baby Aspirin PO 81 mg DAILY KVNG Administration Budesonide 0.5 mg 06/20/18 20:00 06/25/18 08:21 Pulmicort IH 0.5 mg Q12HRT KVNG Administration Famotidine 10 mg 06/18/18 10:00 06/25/18 09:13 Pepcid PO 10 mg BID KVNG Administration Guaifenesin 600 mg 06/17/18 23:45 06/25/18 09:13 Mucinex Er PO 600 mg BID KVNG Administration Hydralazine HCl 100 mg 06/18/18 03:03 06/25/18 09:13 Apresoline PO 100 mg TID KVNG Administration Hydromorphone HCl 1 mg 06/19/18 12:01 06/23/18 22:11 Dilaudid IV 1 mg Q4H PRN Administration Pain , Severe (7-10) Levofloxacin/Dextrose 500 mg in 100 mls @ 100 mls/hr 06/21/18 13:00 06/23/18 12:39 Levaquin 500mg/100ml IV 100 mls/hr Q48H KVNG Administration Protocol Sodium Chloride 1,000 mls @ 75 mls/hr 06/22/18 09:00 06/24/18 03:11 Nacl 0.9% 1000 Ml IV 75 mls/hr DIRECT KVNG Administration Methylprednisolone Sodium Succinate 60 mg 06/20/18 20:00 06/25/18 04:14 Solu-Medrol IV 60 mg Q8H KVNG Administration Metoprolol Tartrate 50 mg 06/18/18 04:00 06/25/18 09:14 Lopressor PO 50 mg BID KVNG Administration Montelukast Sodium 10 mg 06/18/18 18:00 06/24/18 19:06 Singulair PO Not Given QPM KVNG Ondansetron HCl 4 mg 06/17/18 23:37 Zofran IV Q8H PRN Nausea And Vomiting Oxycodone/Acetaminophen 2 tab 06/19/18 12:01 06/24/18 21:55 Percocet 5/325 PO 2 tab Q4H PRN Administration Pain, Moderate (4-6) Pravastatin Sodium 40 mg 06/18/18 22:00 06/24/18 21:49 Pravachol PO 40 mg QHS KVNG Administration Sodium Bicarbonate 650 mg 06/19/18 22:00 06/25/18 09:13 Sodium Bicarbonate PO 650 mg BID KVNG Administration Sodium Chloride 10 ml 06/18/18 10:00 06/25/18 09:15 Sodium Chloride Flush Syringe 10 Ml IV 10 ml BID KVNG Administration Sodium Chloride 10 ml 06/17/18 23:37 06/21/18 17:40 Sodium Chloride Flush Syringe 10 Ml IV 10 ml PRN PRN Administration LINE FLUSH
--- NOTE | 2018-06-25 11:59 | Progress Note ---
Assessment and Plan 78 y/o female with known COPD and chronic respiratory failure 1. Discharge on steroid taper: 60 daily for 4 days, 40 for 4 , 20x4 then 10 for 4 then stop. 2. Continue baseline home cannula 3. Follow up in office in 10-14 days 4. send home with Incentive spirometer Subjective Date of service: 06/25/18 Principal diagnosis: CKD 3 Interval history: Mass not in bladder based on cysto. IMS discharging today. Objective Vital Signs - 12hr 06/25/18 06/25/18 06/25/18 00:26 01:58 03:16 Temperature 97.8 F Pulse Rate 80 80 Pulse Rate [ 78 Anterior Bilateral Upper Lobe] Respiratory 16 20 Rate Respiratory 20 Rate [Anterior Bilateral Upper Lobe] Blood Pressure 135/70 O2 Sat by Pulse 100 100 Oximetry 06/25/18 06/25/18 06/25/18 03:26 07:33 07:34 Temperature 99.1 F Pulse Rate 83 83 Pulse Rate [ 80 Anterior Bilateral Upper Lobe] Respiratory 20 20 Rate Respiratory 18 Rate [Anterior Bilateral Upper Lobe] Blood Pressure 153/64 O2 Sat by Pulse 98 99 Oximetry 06/25/18 09:14 Temperature Pulse Rate Pulse Rate [ Anterior Bilateral Upper Lobe] Respiratory Rate Respiratory Rate [Anterior Bilateral Upper Lobe] Blood Pressure 153/98 O2 Sat by Pulse Oximetry Constitutional: alert Eyes: non-icteric ENT: oropharynx moist Neck: supple Effort: mildly labored Ascultation: Bilateral: wheezes Percussion: Bilateral: not dull Tactile fremitus: Bilateral: normal Cardiovascular: regular rate and rhythm Gastrointestinal: normoactive bowel sounds Integumentary: normal Extremities: other (rt second toe discolored) Neurologic: normal mental status, non-focal exam CBC and BMP: 06/25/18 05:37 06/25/18 05:37 ABG, PT/INR, D-dimer: ABG POC ABG pH 7.384 (7.35-7.45) 06/22/18 11:40 POC ABG pCO2 33.7 (35-45) L 06/22/18 11:40 POC ABG pO2 86 (80-105) 06/22/18 11:40 POC ABG HCO3 20.1 (22-26 mml/L) 06/22/18 11:40 POC ABG Total CO2 21 (23-27mmol/L) 06/22/18 11:40 POC ABG O2 Sat 97 06/22/18 11:40 PT/INR, D-dimer PT 20.8 Sec. (12.2-14.9) H 06/25/18 05:37 INR 1.67 (0.87-1.13) H 06/25/18 05:37 686.12 ng/mlDDU (0-234) H 06/17/18 17:50 Abnormal lab findings: Abnormal Labs 06/17/18 06/17/18 06/17/18 17:50 17:50 17:50 RBC Hgb Hct MCH 27 L Plt Count Seg Neutrophils % 71.2 H Seg Neuts % (Manual) Lymphocytes % (Manual) Nucleated RBC % Seg Neutrophils # Man Lymphocytes # (Manual) PT INR APTT D-Dimer 686.12 H Heparin Anti-Xa Level POC ABG pH POC ABG pCO2 Sodium Potassium Chloride Carbon Dioxide 21 L BUN 21 H Creatinine 1.6 H Glucose 118 H POC Glucose Calcium Magnesium 2.70 H Albumin 3.6 L TSH Crossmatch 06/18/18 06/18/18 06/19/18 05:07 20:50 11:47 RBC Hgb Hct MCH Plt Count Seg Neutrophils % Seg Neuts % (Manual) Lymphocytes % (Manual) Nucleated RBC % Seg Neutrophils # Man Lymphocytes # (Manual) PT INR APTT D-Dimer Heparin Anti-Xa Level POC ABG pH POC ABG pCO2 30.2 L Sodium Potassium Chloride 112.9 H Carbon Dioxide 19 L 16 L BUN 27 H 29 H Creatinine 1.8 H 1.6 H Glucose 241 H 182 H POC Glucose Calcium Magnesium Albumin TSH Crossmatch 06/19/18 06/19/18 06/19/18 13:34 13:34 Unknown RBC Hgb Hct MCH Plt Count Seg Neutrophils % Seg Neuts % (Manual) Lymphocytes % (Manual) Nucleated RBC % Seg Neutrophils # Man Lymphocytes # (Manual) PT INR APTT 94.9 H* D-Dimer Heparin Anti-Xa Level 1.00 H POC ABG pH POC ABG pCO2 Sodium Potassium Chloride Carbon Dioxide BUN Creatinine Glucose POC Glucose Calcium Magnesium Albumin TSH 0.147 L Crossmatch 06/20/18 06/20/18 06/20/18 06:06 14:47 20:27 RBC Hgb Hct MCH Plt Count Seg Neutrophils % Seg Neuts % (Manual) Lymphocytes % (Manual) Nucleated RBC % Seg Neutrophils # Man Lymphocytes # (Manual) PT INR APTT D-Dimer Heparin Anti-Xa Level 0.71 H POC ABG pH 7.320 L POC ABG pCO2 Sodium Potassium 5.7 H D Chloride 109.3 H Carbon Dioxide 18 L BUN 40 H Creatinine 1.8 H Glucose 148 H POC Glucose Calcium Magnesium Albumin TSH Crossmatch 06/21/18 06/22/18 06/22/18 03:47 04:51 04:51 RBC Hgb Hct MCH Plt Count Seg Neutrophils % Seg Neuts % (Manual) Lymphocytes % (Manual) Nucleated RBC % Seg Neutrophils # Man Lymphocytes # (Manual) PT 21.2 H INR 1.71 H APTT D-Dimer Heparin Anti-Xa Level 0.84 H POC ABG pH POC ABG pCO2 Sodium Potassium 5.3 H Chloride Carbon Dioxide 21 L 19 L BUN 43 H 61 H Creatinine 1.7 H 2.7 H D Glucose 138 H 155 H POC Glucose Calcium Magnesium Albumin TSH Crossmatch 06/22/18 06/22/18 06/23/18 06:43 11:40 06:00 RBC Hgb 9.7 L Hct 28.8 L D MCH Plt Count Seg Neutrophils % Seg Neuts % (Manual) Lymphocytes % (Manual) Nucleated RBC % Seg Neutrophils # Man Lymphocytes # (Manual) PT INR APTT D-Dimer Heparin Anti-Xa Level POC ABG pH POC ABG pCO2 33.7 L Sodium 136 L Potassium 5.3 H Chloride Carbon Dioxide 16 L BUN 79 H Creatinine 2.9 H Glucose 175 H POC Glucose Calcium 7.6 L Magnesium Albumin TSH Crossmatch 06/23/18 06/23/18 06/23/18 09:54 09:54 14:58 RBC Hgb 7.5 L Hct 22.9 L MCH Plt Count Seg Neutrophils % Seg Neuts % (Manual) Lymphocytes % (Manual) Nucleated RBC % Seg Neutrophils # Man Lymphocytes # (Manual) PT 26.0 H INR 2.21 H APTT D-Dimer Heparin Anti-Xa Level POC ABG pH POC ABG pCO2 Sodium Potassium Chloride Carbon Dioxide BUN Creatinine Glucose POC Glucose Calcium Magnesium Albumin TSH Crossmatch See Detail 06/24/18 06/24/18 06/24/18 06:03 06:03 06:03 RBC 2.65 L Hgb 7.5 L Hct 22.2 L MCH Plt Count 114 L Seg Neutrophils % Seg Neuts % (Manual) 94.0 H Lymphocytes % (Manual) 1.0 L Nucleated RBC % 1.0 H Seg Neutrophils # Man 8.1 H Lymphocytes # (Manual) 0.1 L PT 23.9 H INR 1.99 H APTT D-Dimer Heparin Anti-Xa Level POC ABG pH POC ABG pCO2 Sodium Potassium Chloride 109.0 H Carbon Dioxide 18 L BUN 86 H Creatinine 2.7 H Glucose 161 H POC Glucose Calcium 7.4 L Magnesium Albumin TSH Crossmatch 06/24/18 06/24/18 06/25/18 17:44 22:22 05:37 RBC Hgb Hct MCH Plt Count Seg Neutrophils % Seg Neuts % (Manual) Lymphocytes % (Manual) Nucleated RBC % Seg Neutrophils # Man Lymphocytes # (Manual) PT INR APTT D-Dimer Heparin Anti-Xa Level POC ABG pH POC ABG pCO2 Sodium Potassium Chloride 111.9 H Carbon Dioxide 21 L BUN 70 H Creatinine 2.3 H Glucose 186 H POC Glucose 154 H 215 H Calcium 7.6 L Magnesium Albumin TSH Crossmatch 06/25/18 06/25/18 06/25/18 05:37 05:37 07:37 RBC Hgb 7.4 L Hct 21.8 L MCH Plt Count 129 L Seg Neutrophils % Seg Neuts % (Manual) Lymphocytes % (Manual) Nucleated RBC % Seg Neutrophils # Man Lymphocytes # (Manual) PT 20.8 H INR 1.67 H APTT D-Dimer Heparin Anti-Xa Level POC ABG pH POC ABG pCO2 Sodium Potassium Chloride Carbon Dioxide BUN Creatinine Glucose POC Glucose 198 H Calcium Magnesium Albumin TSH Crossmatch 06/25/18 11:18 RBC Hgb Hct MCH Plt Count Seg Neutrophils % Seg Neuts % (Manual) Lymphocytes % (Manual) Nucleated RBC % Seg Neutrophils # Man Lymphocytes # (Manual) PT INR APTT D-Dimer Heparin Anti-Xa Level POC ABG pH POC ABG pCO2 Sodium Potassium Chloride Carbon Dioxide BUN Creatinine Glucose POC Glucose 203 H Calcium Magnesium Albumin TSH Crossmatch Allied health notes reviewed: nursing
== END 2018-06-25 14:00 | disposition home health service (06) | DRG 987 ==
LOC: ED 15:56 → 2B-ACE 23:37
PROVIDERS: ADMIT Internal Medicine; ATTEND Internal Medicine
PROC: 4A033R1 Measurement of Arterial Saturation, Peripheral, Percutaneous Approach (ICD-10-PCS; 2018-06-18)
PROC: 5A09357 Assistance with Respiratory Ventilation, Less than 24 Consecutive Hours, Continuous Positive Airway Pressure (ICD-10-PCS; 2018-06-18)
PROC: 5A09357 Assistance with Respiratory Ventilation, Less than 24 Consecutive Hours, Continuous Positive Airway Pressure (ICD-10-PCS; 2018-06-19)
PROC: 5A09357 Assistance with Respiratory Ventilation, Less than 24 Consecutive Hours, Continuous Positive Airway Pressure (ICD-10-PCS; 2018-06-20)
PROC: 30233N1 Transfusion of Nonautologous Red Blood Cells into Peripheral Vein, Percutaneous Approach (ICD-10-PCS; principal; 2018-06-23)
PROC: 5A09357 Assistance with Respiratory Ventilation, Less than 24 Consecutive Hours, Continuous Positive Airway Pressure (ICD-10-PCS; 2018-06-23)
PROC: 05HY33Z Insertion of Infusion Device into Upper Vein, Percutaneous Approach (ICD-10-PCS; 2018-06-24)
PROC: 0TBB8ZX Excision of Bladder, Via Natural or Artificial Opening Endoscopic, Diagnostic (ICD-10-PCS; 2018-06-24)
PROC: BT141ZZ Fluoroscopy of Kidneys, Ureters and Bladder using Low Osmolar Contrast (ICD-10-PCS; 2018-06-24)
PROC: 5A09357 Assistance with Respiratory Ventilation, Less than 24 Consecutive Hours, Continuous Positive Airway Pressure (ICD-10-PCS; 2018-06-25)
DX: J96.21 Acute and chronic respiratory failure with hypoxia (principal); J18.1 Lobar pneumonia, unspecified organism; J44.1 Chronic obstructive pulmonary disease with (acute) exacerbation; I13.0 Hypertensive heart and chronic kidney disease with heart failure and stage 1 through stage 4 chronic kidney disease, or unspecified chronic kidney disease; D62 Acute posthemorrhagic anemia; E87.2 Acidosis; J44.0 Chronic obstructive pulmonary disease with (acute) lower respiratory infection; N17.9 Acute kidney failure, unspecified; R31.0 Gross hematuria; K64.8 Other hemorrhoids; R19.00 Intra-abdominal and pelvic swelling, mass and lump, unspecified site; N18.3 Chronic kidney disease, stage 3 (moderate); I50.9 Heart failure, unspecified; E11.22 Type 2 diabetes mellitus with diabetic chronic kidney disease; E11.51 Type 2 diabetes mellitus with diabetic peripheral angiopathy without gangrene; I25.2 Old myocardial infarction; M19.90 Unspecified osteoarthritis, unspecified site; I25.10 Atherosclerotic heart disease of native coronary artery without angina pectoris; M10.9 Gout, unspecified; F17.210 Nicotine dependence, cigarettes, uncomplicated; I70.221 Atherosclerosis of native arteries of extremities with rest pain, right leg; E78.2 Mixed hyperlipidemia; Z99.81 Dependence on supplemental oxygen; Z95.1 Presence of aortocoronary bypass graft; Z79.82 Long term (current) use of aspirin; Z95.9 Presence of cardiac and vascular implant and graft, unspecified; Z91.040 Latex allergy status; Z91.011 Allergy to milk products
CPT/HCPCS: 36415; 36600; 71045; 71046; 72195; 74176; 74181; 74420; 74430; 76705; 78582; 80048; 80053; 81001; 82378; 82803; 82962; 83735; 84132; 84436; 84439; 84443; 84484; 85007; 85014; 85018; 85025; 85049; 85379; 85520; 85610; 85730; 86850; 86900; 86901; 86920; 87116; 88305; 88307; 88341; 88342; 90686; 93005; 93010; 93925; 94640; 94644; 94660; 94760; 96365; 96375; 99285; G0378; A9270-GY; A9540; A9558; C1758; J0456; J1170; J1644; J1650; J1956; J2270; J2704; J2920; J2930; J3010; J3475; J7030; J7050; J7120; P9016; Q9967

== ENCOUNTER 2018-12-28 15:55 | Inpatient (IN) | payer MEDICARE ==
[2018-12-28] MEDS ORDERED: FUROSEMIDE 40 MG/4 ML INJ IV ONE (16:57)
--- NOTE | 2018-12-28 17:01 | Emergency Department Report ---
ED Shortness of Breath HPI - General Chief Complaint: Dyspnea/Respdistress Stated Complaint: CRUZITO Time Seen by Provider: 12/28/18 16:33 Source: patient, EMS Mode of arrival: Stretcher Limitations: Physical Limitation - History of Present Illness Initial Comments: Patient is 78-year-old female with history of COPD, congestive heart failure, hypertension and diabetes. Patient brought to the emergency room via EMS for evaluation of shortness of breath for the last 3 days. Patient stated that she is getting out of breath when she even walk for a short distance. The patient denies any fever cough. Patient also denied any chest pain. MD Complaint: shortness of breath -: days(s) (3) Known History Of: COPD, congestive heart failure - Related Data Home Medications Medication Instructions Recorded Confirmed Last Taken Ipratropium/Albuterol Sulfate 1 puff IH BID 01/23/18 06/17/18 Unknown [Combivent Respimat] Famotidine [Pepcid] 20 mg PO BID 06/17/18 06/17/18 Unknown traMADol [Ultram 50 MG tab] 50 mg PO Q8H PRN 06/17/18 06/17/18 Unknown Previous Rx's Medication Instructions Recorded Last Taken Type Allopurinol [Zyloprim] 100 mg PO QDAY #30 tablet 01/27/18 Unknown Rx Metoprolol [Lopressor TAB] 50 mg PO BID #60 tablet 01/27/18 Unknown Rx Montelukast [Singulair] 10 mg PO QPM #30 tablet 01/27/18 Unknown Rx Pravastatin [Pravachol] 40 mg PO QHS #30 tablet 01/27/18 Unknown Rx amLODIPine 10 mg PO DAILY #30 tablet 01/27/18 Unknown Rx hydrALAZINE [Apresoline TAB] 100 mg PO TID #90 tab 01/27/18 Unknown Rx ALBUTEROL NEB's [Proventil 0.083% 2.5 mg IH Q4HRT PRN #60 nebu 06/25/18 Unknown Rx NEBS] Budesonide [Pulmicort Respules] 0.5 mg IH Q12HRT #60 nebu 06/25/18 Unknown Rx Prednisone [predniSONE 10 mg 10 mg PO .TAPER #1 tab.ds.pk 06/25/18 Unknown Rx (6-Day Pack, 21 Tabs)] Sodium Bicarbonate 650 mg PO BID #60 tablet 06/25/18 Unknown Rx Allergies Allergy/AdvReac Type Severity Reaction Status Date / Time latex Allergy Hives Verified 01/23/18 09:20 milk Allergy Rash Verified 01/23/18 09:20 ED Review of Systems ROS: Stated complaint: CRUZITO Other details as noted in HPI Comment: All other systems reviewed and negative Constitutional: denies: chills, fever Respiratory: shortness of breath, SOB with exertion. denies: cough, wheezing Cardiovascular: denies: chest pain, palpitations Gastrointestinal: denies: abdominal pain, nausea, vomiting Musculoskeletal: denies: back pain ED Past Medical Hx - Past Medical History Hx Hypertension: Yes Hx Heart Attack/AMI: Yes Hx Congestive Heart Failure: Yes Hx Diabetes: Yes Hx Deep Vein Thrombosis: No Hx Renal Disease: Yes Hx Arthritis: Yes Hx Kidney Stones: Yes Hx Asthma: Yes Hx COPD: Yes Hx HIV: No Additional medical history: facial tic - Surgical History Hx Open Heart Surgery: Yes Hx Pacemaker: No Hx Internal Defibrillator: No Additional Surgical History: right knee surgery, right/left foot surgery, left hip surgery - Social History Smoking Status: Former Smoker Substance Use Type: Alcohol - Medications Home Medications: Home Medications Medication Instructions Recorded Confirmed Last Taken Type Ipratropium/Albuterol Sulfate 1 puff IH BID 01/23/18 06/17/18 Unknown History [Combivent Respimat] Allopurinol [Zyloprim] 100 mg PO QDAY #30 tablet 01/27/18 06/17/18 Unknown Rx Metoprolol [Lopressor TAB] 50 mg PO BID #60 tablet 01/27/18 06/17/18 Unknown Rx Montelukast [Singulair] 10 mg PO QPM #30 tablet 01/27/18 06/17/18 Unknown Rx Pravastatin [Pravachol] 40 mg PO QHS #30 tablet 01/27/18 06/17/18 Unknown Rx amLODIPine 10 mg PO DAILY #30 tablet 01/27/18 06/17/18 Unknown Rx hydrALAZINE [Apresoline TAB] 100 mg PO TID #90 tab 01/27/18 06/17/18 Unknown Rx Famotidine [Pepcid] 20 mg PO BID 06/17/18 06/17/18 Unknown History traMADol [Ultram 50 MG tab] 50 mg PO Q8H PRN 06/17/18 06/17/18 Unknown History ALBUTEROL NEB's [Proventil 0.083% 2.5 mg IH Q4HRT PRN #60 nebu 06/25/18 Unknown Rx NEBS] Budesonide [Pulmicort Respules] 0.5 mg IH Q12HRT #60 nebu 06/25/18 Unknown Rx Prednisone [predniSONE 10 mg 10 mg PO .TAPER #1 tab.ds.pk 06/25/18 Unknown Rx (6-Day Pack, 21 Tabs)] Sodium Bicarbonate 650 mg PO BID #60 tablet 06/25/18 Unknown Rx ED Physical Exam - General Limitations: Physical Limitation ED Course Vital Signs 12/28/18 12/28/18 16:20 18:03 Temperature 98.0 F Pulse Rate 89 88 Respiratory 20 20 Rate Blood Pressure 182/91 Blood Pressure 177/98 [Left] O2 Sat by Pulse 100 100 Oximetry ED Medical Decision Making - Lab Data Result diagrams: 12/28/18 Unknown 12/28/18 Unknown - EKG Data -: EKG Interpreted by Me - Radiology Data Radiology results: report reviewed - Medical Decision Making Patient is 78-year-old female with history of COPD, congestive heart failure, hypertension and diabetes. Patient brought to the emergency room via EMS for evaluation of shortness of breath for the last 3 days. Patient stated that she is getting out of breath when she even walk for a short distance. The patient denies any fever cough. Patient also denied any chest pain. Labs reviewed and showed elevated creatinine. Significant elevated BNP. Patient found to be in acute CHF exacerbation. I discussed the patient is Dr. Milan, he agreed to admit the patient to medical service for further management. Critical Care Time: Yes Critical care time in (mins) excluding proc time.: 30 Critical care attestation.: If time is entered above; I have spent that time in minutes in the direct care of this critically ill patient, excluding procedure time. ED Disposition Clinical Impression: Chronic kidney disease, stage III (moderate), Shortness of breath, Acute exacerbation of CHF (congestive heart failure) Disposition: OP ADMIT IP TO THIS HOSP Is pt being admited?: Yes Condition: Stable
[2018-12-28 17:32] LABS: Hemoglobin 11.3 gm/dl (10.1-14.3); Mean Corpuscular HGB Conc 32 % (30-34); Mean Corpuscular Volume 86 fl (79-97); Platelet Count 173 K/mm3 (140-440); Red Blood Count 4.07 M/mm3 (3.65-5.03); Red Cell Distribution Width 16.3 % (13.2-15.2)
[2018-12-28 17:39] LABS: Partial Thromboplastin Time 25.5 Sec. (24.2-36.6)
[2018-12-28 17:45] LABS: Calcium 9.4 mg/dL (8.4-10.2)
--- NOTE | 2018-12-28 17:45 | XRay Report ---
CHEST 1 VIEW INDICATION: Dyspnea. COMPARISON: 06/22/2018. FINDINGS: Support devices: None. Heart: Mild cardiomegaly status post previous median sternotomy. Lungs/Pleura: No acute air space or interstitial disease. Additional findings: None. IMPRESSION: Stable mild cardiomegaly. Signer Name: Davian Malone MD Signed: 12/28/2018 5:41 PM Workstation Name: [id number]
[2018-12-28 17:49] LABS: Alanine Aminotransferase 62 units/L (7-56); Albumin 3.8 g/dL (3.9-5)
[2018-12-28 18:00] LABS: Bilirubin,Direct < 0.2 mg/dL (0-0.2); LDL Cholesterol,Direct 158 mg/dL (50-130)
[2018-12-28 18:14] LABS: HDL Cholesterol 98 mg/dL (40-59)
[2018-12-28 19:04] LABS: Basophils % (Manual) 0 % (0.0-1.8); Eosinophils % (Manual) 0 % (0.0-4.3); Total Cells Counted 100
[2018-12-28 19:06] LABS: Platelet Estimate Consistent w Auto; RBC Morphology Normal
[2018-12-28] MEDS ORDERED: hydrALAZINE 20 MG/1 ML INJ IV ONE (20:20)
[2018-12-28] MEDS ORDERED: hydrALAZINE 20 MG/1 ML INJ ONE ×2 (20:29→21:54)
[2018-12-28] MEDS ORDERED: HYDROmorphone 1 MG/1 ML INJ IV ONE (20:47)
[2018-12-28] MEDS ORDERED: ALBUTEROL 2.5 MG/3 ML NEBU IH ONE (20:52)
[2018-12-28] MEDS ORDERED: HYDROmorphone 1 MG/1 ML INJ ONE (21:31)
[2018-12-28] MEDS ORDERED: hydrALAZINE 20 MG/1 ML INJ IV PRN (21:49)
[2018-12-28] MEDS ORDERED: ALBUTEROL 2.5 MG/3 ML NEBU IH PRN (22:03)
[2018-12-28] MEDS ORDERED: traMADol 50 MG TAB PO PRN (22:03)
[2018-12-28] MEDS ORDERED: ONDANSETRON 4 MG/2 ML INJ IV PRN (22:09)
[2018-12-28] MEDS ORDERED: ACETAMINOPHEN 325 MG TAB PO PRN (22:09)
[2018-12-28] MEDS ORDERED: HYDROmorphone 1 MG/1 ML INJ IV PRN (22:09)
[2018-12-28] MEDS ORDERED: METOCLOPRAMIDE 10 MG/2 ML INJ IV PRN ×2 (22:09→22:27)
[2018-12-28] MEDS ORDERED: BUDESONIDE 0.5 MG/2 ML NEBU IH SCH (22:15)
[2018-12-28] MEDS ORDERED: FAMOTIDINE 20 MG TAB PO SCH (23:00)
[2018-12-28] MEDS: METOPROLOL TARTRATE 50 MG TAB PO SCH (23:30)
[2018-12-28] MEDS: FAMOTIDINE 10 MG TAB PO SCH (23:31)
[2018-12-28] MEDS: SODIUM BICARBONATE 650 MG TAB PO SCH (23:31)
[2018-12-29] MEDS: oxyCODONE /ACETAMINOPHEN 5-325MG TAB PO PRN ×3 (00:54→21:49)
--- NOTE | 2018-12-29 02:05 | History and Physical Report ---
History of Present Illness Date of examination: 12/28/18 Date of admission: 12/28/18 18:20 Chief complaint: SOB for 3 days History of present illness: 78-year-old female with history of COPD, congestive heart failure, hypertension and diabetes brought to the emergency room via EMS for evaluation of shortness of breath for the last 3 days. Patient stated that she is getting out of breath when she even walks for a short distance. The patient denies any fever cough. Patient also denied any chest pain.Orthopnea present. Past Medical History Hypertension: Yes Hx Heart Attack/AMI: Yes Congestive Heart Failure: Yes Diabetes Renal Disease Asthma: Yes COPD Additional medical history: facial tic Surgical History Open Heart Surgery: Yes Additional Surgical History: right knee surgery, right/left foot surgery, left hip surgery Social History Smoking Status: Former Smoker Substance Use Type: Alcohol Family History Htn - Medications Home Medications: Home Medications Medication Instructions Recorded Confirmed Last Taken Type Ipratropium/Albuterol Sulfate 1 puff IH BID 01/23/18 06/17/18 Unknown History [Combivent Respimat] Allopurinol [Zyloprim] 100 mg PO QDAY #30 tablet 01/27/18 06/17/18 Unknown Rx Metoprolol [Lopressor TAB] 50 mg PO BID #60 tablet 01/27/18 06/17/18 Unknown Rx Montelukast [Singulair] 10 mg PO QPM #30 tablet 01/27/18 06/17/18 Unknown Rx Pravastatin [Pravachol] 40 mg PO QHS #30 tablet 01/27/18 06/17/18 Unknown Rx amLODIPine 10 mg PO DAILY #30 tablet 01/27/18 06/17/18 Unknown Rx hydrALAZINE [Apresoline TAB] 100 mg PO TID #90 tab 01/27/18 06/17/18 Unknown Rx Famotidine [Pepcid] 20 mg PO BID 06/17/18 06/17/18 Unknown History traMADol [Ultram 50 MG tab] 50 mg PO Q8H PRN 06/17/18 06/17/18 Unknown History ALBUTEROL NEB's [Proventil 0.083% 2.5 mg IH Q4HRT PRN #60 nebu 06/25/18 Unknown Rx NEBS] Budesonide [Pulmicort Respules] 0.5 mg IH Q12HRT #60 nebu 06/25/18 Unknown Rx Prednisone [predniSONE 10 mg 10 mg PO .TAPER #1 tab.ds.pk 06/25/18 Unknown Rx (6-Day Pack, 21 Tabs)] Sodium Bicarbonate 650 mg PO BID #60 tablet 06/25/18 Unknown Rx Review of Systems ROS: Stated complaint: CRUZITO Other details as noted in HPI Comment: All other systems reviewed and negative Constitutional: denies: chills, fever Respiratory: shortness of breath, SOB with exertion. denies: cough, wheezing Cardiovascular: denies: chest pain, palpitations Gastrointestinal: denies: abdominal pain, nausea, vomiting Musculoskeletal: denies: back pain Medications and Allergies Allergies Allergy/AdvReac Type Severity Reaction Status Date / Time latex Allergy Hives Verified 01/23/18 09:20 milk Allergy Rash Verified 01/23/18 09:20 Home Medications Medication Instructions Recorded Confirmed Last Taken Type Ipratropium/Albuterol Sulfate 1 puff IH BID 01/23/18 12/28/18 Unknown History [Combivent Respimat] Allopurinol [Zyloprim] 100 mg PO QDAY #30 tablet 01/27/18 12/28/18 Unknown Rx Metoprolol [Lopressor TAB] 50 mg PO BID #60 tablet 01/27/18 12/28/18 Unknown Rx Montelukast [Singulair] 10 mg PO QPM #30 tablet 01/27/18 12/28/18 Unknown Rx Pravastatin [Pravachol] 40 mg PO QHS #30 tablet 01/27/18 12/28/18 Unknown Rx amLODIPine 10 mg PO DAILY #30 tablet 01/27/18 12/28/18 Unknown Rx hydrALAZINE [Apresoline TAB] 100 mg PO TID #90 tab 01/27/18 12/28/18 Unknown Rx Famotidine [Pepcid] 20 mg PO BID 06/17/18 12/28/18 Unknown History traMADol [Ultram 50 MG tab] 50 mg PO Q8H PRN 06/17/18 12/28/18 Unknown History ALBUTEROL NEB's [Proventil 0.083% 2.5 mg IH Q4HRT PRN #60 nebu 06/25/18 12/28/18 Unknown Rx NEBS] Budesonide [Pulmicort Respules] 0.5 mg IH Q12HRT #60 nebu 06/25/18 12/28/18 Unknown Rx Prednisone [predniSONE 10 mg 10 mg PO .TAPER #1 tab.ds.pk 06/25/18 12/28/18 Unknown Rx (6-Day Pack, 21 Tabs)] Sodium Bicarbonate 650 mg PO BID #60 tablet 06/25/18 12/28/18 Unknown Rx Active Meds: Active Medications Acetaminophen (Tylenol) 650 mg PO Q4H PRN PRN Reason: Pain MILD(1-3)/Fever >100.5/HERRMANN Albuterol/Ipratropium (Duoneb *Not For Prn Use*) 1 ampul IH QIDRT [facility] Allopurinol (Zyloprim) 100 mg PO QDAY [facility] Amlodipine Besylate (Amlodipine) 10 mg PO DAILY [facility] Budesonide (Pulmicort) 0.5 mg IH Q12HRT [facility] Famotidine (Pepcid) 10 mg PO BID [facility] Last Admin: 12/28/18 23:31 Dose: 10 mg Documented by: Furosemide (Lasix) 40 mg IV 0600,1800 [facility] Hydralazine HCl (Apresoline) 100 mg PO TID [facility] Hydralazine HCl (Apresoline) 10 mg IV Q3H PRN PRN Reason: Blood Pressure Hydromorphone HCl (Dilaudid) 0.5 mg IV Q3H PRN PRN Reason: Pain , Severe (7-10) Metoclopramide HCl (Reglan) 5 mg IV Q6H PRN PRN Reason: Nausea And Vomiting Metoprolol Tartrate (Metoprolol) 50 mg PO BID [facility] Last Admin: 12/28/18 23:30 Dose: 50 mg Documented by: Montelukast Sodium (Singulair) 10 mg PO QPM [facility] Ondansetron HCl (Zofran) 4 mg IV Q8H PRN PRN Reason: Nausea And Vomiting Oxycodone/Acetaminophen (Percocet 5/325) 1 tab PO Q6H PRN PRN Reason: Pain, Moderate (4-6) Last Admin: 12/29/18 00:54 Dose: 1 tab Documented by: Potassium Chloride (K-Dur) 20 meq PO Q12HR [facility] Pravastatin Sodium (Pravachol) 40 mg PO QHS [facility] Sodium Bicarbonate (Sodium Bicarbonate) 650 mg PO BID [facility] Last Admin: 12/28/18 23:31 Dose: 650 mg Documented by: Sodium Chloride (Sodium Chloride Flush Syringe 10 Ml) 10 ml IV BID [facility] Last Admin: 12/28/18 23:31 Dose: 10 ml Documented by: Sodium Chloride (Sodium Chloride Flush Syringe 10 Ml) 10 ml IV PRN PRN PRN Reason: LINE FLUSH Tramadol HCl (Ultram) 50 mg PO Q8H PRN PRN Reason: Pain, Moderate (4-6) Exam - Constitutional Vitals: Temp Pulse Resp BP Pulse Ox 98.5 F 103 H 22 200/99 99 12/28/18 23:15 12/28/18 23:30 12/28/18 23:15 12/28/18 23:30 12/28/18 23:15 General appearance: Present: mild distress, well-nourished - EENT Eyes: Present: PERRL ENT: hearing intact, clear oral mucosa - Neck Neck: Present: supple, normal ROM - Respiratory Respiratory effort: normal Respiratory: bilateral: CTA - Cardiovascular Heart rate: 78 Rhythm: regular Heart Sounds: Present: S1 & S2. Absent: rub, click - Extremities Extremities: no ischemia, pulses symmetrical, No edema Peripheral Pulses: within normal limits - Abdominal General gastrointestinal: Present: soft, non-tender, non-distended, normal bowel sounds Female genitourinary: Present: normal - Rectal Rectal Exam: deferred - Integumentary Integumentary: Present: clear, warm, dry - Musculoskeletal Musculoskeletal: gait normal, strength equal bilaterally - Psychiatric Psychiatric: appropriate mood/affect, intact judgment & insight - Neurologic Neurologic: CNII-XII intact, moves all extremities - Allied Health Allied health notes reviewed: nursing, case management Results - Labs CBC & Chem 7: 12/28/18 Unknown 12/28/18 Unknown Labs: Laboratory Last Values WBC 7.5 K/mm3 (4.5-11.0) 12/28/18 Unknown RBC 4.07 M/mm3 (3.65-5.03) 12/28/18 Unknown Hgb 11.3 gm/dl (10.1-14.3) 12/28/18 Unknown Hct 35.0 % (30.3-42.9) 12/28/18 Unknown MCV 86 fl (79-97) 12/28/18 Unknown MCH 28 pg (28-32) 12/28/18 Unknown MCHC 32 % (30-34) 12/28/18 Unknown RDW 16.3 % (13.2-15.2) H 12/28/18 Unknown Plt Count 173 K/mm3 (140-440) 12/28/18 Unknown Add Manual Diff Complete 12/28/18 Unknown Total Counted 100 12/28/18 Unknown Seg Neutrophils % Citizenship Teacher 12/28/18 Unknown Seg Neuts % (Manual) 93.0 % (40.0-70.0) H 12/28/18 Unknown Band Neutrophils % 0 % 12/28/18 Unknown Lymphocytes % (Manual) 4.0 % (13.4-35.0) L 12/28/18 Unknown Reactive Lymphs % (Man) 0 % 12/28/18 Unknown Monocytes % (Manual) 3.0 % (0.0-7.3) 12/28/18 Unknown Eosinophils % (Manual) 0 % (0.0-4.3) 12/28/18 Unknown Basophils % (Manual) 0 % (0.0-1.8) 12/28/18 Unknown Metamyelocytes % 0 % 12/28/18 Unknown Myelocytes % 0 % 12/28/18 Unknown Promyelocytes % 0 % 12/28/18 Unknown Blast Cells % 0 % 12/28/18 Unknown Nucleated RBC % Not Reportable 12/28/18 Unknown Seg Neutrophils # Man 7.0 K/mm3 (1.8-7.7) 12/28/18 Unknown Band Neutrophils # 0.0 K/mm3 12/28/18 Unknown Lymphocytes # (Manual) 0.3 K/mm3 (1.2-5.4) L 12/28/18 Unknown Abs React Lymphs (Man) 0.0 K/mm3 12/28/18 Unknown Monocytes # (Manual) 0.2 K/mm3 (0.0-0.8) 12/28/18 Unknown Eosinophils # (Manual) 0.0 K/mm3 (0.0-0.4) 12/28/18 Unknown Basophils # (Manual) 0.0 K/mm3 (0.0-0.1) 12/28/18 Unknown Metamyelocytes # 0.0 K/mm3 12/28/18 Unknown Myelocytes # 0.0 K/mm3 12/28/18 Unknown Promyelocytes # 0.0 K/mm3 12/28/18 Unknown Blast Cells # 0.0 K/mm3 12/28/18 Unknown WBC Morphology Not Reportable 12/28/18 Unknown Hypersegmented Neuts Not Reportable 12/28/18 Unknown Hyposegmented Neuts Not Reportable 12/28/18 Unknown Hypogranular Neuts Not Reportable 12/28/18 Unknown Smudge Cells Not Reportable 12/28/18 Unknown Toxic Granulation Not Reportable 12/28/18 Unknown Toxic Vacuolation Not Reportable 12/28/18 Unknown Dohle Bodies Not Reportable 12/28/18 Unknown Pelger-Huet Anomaly Not Reportable 12/28/18 Unknown Ariel Rods Not Reportable 12/28/18 Unknown Platelet Estimate Consistent w auto 12/28/18 Unknown Clumped Platelets Not Reportable 12/28/18 Unknown Plt Clumps, EDTA Not Reportable 12/28/18 Unknown Large Platelets Not Reportable 12/28/18 Unknown Giant Platelets Not Reportable 12/28/18 Unknown Platelet Satelliting Not Reportable 12/28/18 Unknown Plt Morphology Comment Not Reportable 12/28/18 Unknown RBC Morphology Normal 12/28/18 Unknown Dimorphic RBCs Not Reportable 12/28/18 Unknown Polychromasia Not Reportable 12/28/18 Unknown Hypochromasia Not Reportable 12/28/18 Unknown Poikilocytosis Not Reportable 12/28/18 Unknown Anisocytosis Not Reportable 12/28/18 Unknown Microcytosis Not Reportable 12/28/18 Unknown Macrocytosis Not Reportable 12/28/18 Unknown Spherocytes Not Reportable 12/28/18 Unknown Pappenheimer Bodies Not Reportable 12/28/18 Unknown Sickle Cells Not Reportable 12/28/18 Unknown Target Cells Not Reportable 12/28/18 Unknown Tear Drop Cells Not Reportable 12/28/18 Unknown Ovalocytes Not Reportable 12/28/18 Unknown Helmet Cells Not Reportable 12/28/18 Unknown Edwards-Harri[place] Bodies Not Reportable 12/28/18 Unknown [place] Rings Not Reportable 12/28/18 Unknown [place] Cells Not Reportable 12/28/18 Unknown Bite Cells Not Reportable 12/28/18 Unknown Crenated Cell Not Reportable 12/28/18 Unknown Elliptocytes Not Reportable 12/28/18 Unknown Acanthocytes (Spur) Not Reportable 12/28/18 Unknown Rouleaux Not Reportable 12/28/18 Unknown Hemoglobin C Crystals Not Reportable 12/28/18 Unknown Schistocytes Not Reportable 12/28/18 Unknown Malaria parasites Not Reportable 12/28/18 Unknown Garland Bodies Not Reportable 12/28/18 Unknown Hem Pathologist Commnt No 12/28/18 Unknown PT 13.1 Sec. (12.2-14.9) 12/28/18 Unknown INR 1.00 (0.87-1.13) 12/28/18 Unknown APTT 25.5 Sec. (24.2-36.6) 12/28/18 Unknown Sodium 138 mmol/L (137-145) 12/28/18 Unknown Potassium 5.4 mmol/L (3.6-5.0) H 12/28/18 Unknown Chloride 101.1 mmol/L (98-107) 12/28/18 Unknown Carbon Dioxide 19 mmol/L (22-30) L 12/28/18 Unknown Anion Gap 23 mmol/L 12/28/18 Unknown BUN 41 mg/dL (7-17) H 12/28/18 Unknown Creatinine 2.3 mg/dL (0.7-1.2) H 12/28/18 Unknown Estimated GFR 25 ml/min 12/28/18 Unknown BUN/Creatinine Ratio 18 % 12/28/18 Unknown Glucose 274 mg/dL (65-100) H 12/28/18 Unknown Calcium 9.4 mg/dL (8.4-10.2) 12/28/18 Unknown Total Bilirubin 0.20 mg/dL (0.1-1.2) 12/28/18 Unknown Direct Bilirubin < 0.2 mg/dL (0-0.2) 12/28/18 Unknown Indirect Bilirubin 0.0 mg/dL 12/28/18 Unknown AST 54 units/L (5-40) H 12/28/18 Unknown ALT 62 units/L (7-56) H 12/28/18 Unknown Alkaline Phosphatase 93 units/L (35-129) 12/28/18 Unknown Troponin T 0.047 ng/mL (0.00-0.029) H 12/28/18 Unknown NT-Pro-B Natriuret Pep 44818 pg/mL (0-900) H 12/28/18 Unknown Total Protein 6.9 g/dL (6.3-8.2) 12/28/18 Unknown Albumin 3.8 g/dL (3.9-5) L 12/28/18 Unknown Albumin/Globulin Ratio 1.2 % 12/28/18 Unknown Triglycerides 175 mg/dL (2-149) H 12/28/18 Unknown Cholesterol 265 mg/dL (50-199) H 12/28/18 Unknown LDL Cholesterol Direct 158 mg/dL (50-130) H 12/28/18 Unknown HDL Cholesterol 98 mg/dL (40-59) H 12/28/18 Unknown Cholesterol/HDL Ratio 2.70 % 12/28/18 Unknown Short CBC 12/28/18 Range/Units Unknown WBC 7.5 (4.5-11.0) K/mm3 Hgb 11.3 (10.1-14.3) gm/dl Hct 35.0 (30.3-42.9) % Plt Count 173 (140-440) K/mm3 BMP 12/28/18 Unknown Sodium 138 Potassium 5.4 H Chloride 101.1 Carbon Dioxide 19 L BUN 41 H Creatinine 2.3 H Glucose 274 H Calcium 9.4 Cardiac Enzymes 12/28/18 12/28/18 Range/Units 20:53 Unknown Troponin T 0.052 H 0.047 H (0.00-0.029) ng/mL Liver Function 12/28/18 Range/Units Unknown Total Bilirubin 0.20 (0.1-1.2) mg/dL Direct Bilirubin < 0.2 (0-0.2) mg/dL AST 54 H (5-40) units/L ALT 62 H (7-56) units/L Alkaline Phosphatase 93 (35-129) units/L Albumin 3.8 L (3.9-5) g/dL - Imaging and Cardiology EKG: report reviewed Chest x-ray: report reviewed (Stable Cardiomegaly) Assessment and Plan Advance Directives: Yes (Full code) VTE prophylaxis?: Chemical Plan of care discussed with patient/family: Yes - Patient Problems (1) Acute exacerbation of CHF (congestive heart failure) Current Visit: Yes Status: Acute Qualifiers: Heart failure type: combined systolic and diastolic Qualified Code(s): I50.43 - Acute on chronic combined systolic (congestive) and diastolic (congestive) heart failure Plan to address problem: Check ECHO for EF IV Lasix for now Daily weights I/o,s (2) COPD exacerbation Current Visit: No Status: Acute Plan to address problem: Neb treatments and low dose steroids (3) HLD (hyperlipidemia) Current Visit: No Status: Chronic Qualifiers: Hyperlipidemia type: mixed hyperlipidemia Qualified Code(s): E78.2 - Mixed hyperlipidemia Plan to address problem: Cont statins (4) HTN (hypertension) Current Visit: No Status: Chronic Qualifiers: Hypertension type: essential hypertension Qualified Code(s): I10 - Essential (primary) hypertension Plan to address problem: Cont antihypertensives (5) CKD (chronic kidney disease) Current Visit: Yes Status: Chronic Qualifiers: Chronic kidney disease stage: stage 3 (moderate) Qualified Code(s): N18.3 - Chronic kidney disease, stage 3 (moderate) Plan to address problem: Cr stable In June 2018 Bun/cr 70/2.3 --today 41/2.3 (6) DVT prophylaxis Current Visit: No Status: Acute Plan to address problem: on Heparin and GI prophylaxis
[2018-12-29] MEDS: hydrALAZINE 20 MG/1 ML INJ IV PRN ×2 (05:15→08:39)
[2018-12-29] MEDS: FUROSEMIDE 40 MG/4 ML INJ IV SCH ×2 (05:15→18:57)
[2018-12-29 06:25] LABS: Hematocrit 37.7 % (30.3-42.9); Hemoglobin 12.2 gm/dl (10.1-14.3); Mean Corpuscular HGB Conc 32 % (30-34); Mean Corpuscular Volume 85 fl (79-97); Platelet Count 192 K/mm3 (140-440); Red Blood Count 4.45 M/mm3 (3.65-5.03)
[2018-12-29 07:13] LABS: Albumin 4.1 g/dL (3.9-5)
[2018-12-29] MEDS: hydrALAZINE 100 MG TAB PO SCH ×3 (08:33→21:51)
[2018-12-29 08:59] LABS: Band Neutrophils # (Manual) 0.1 K/mm3; Basophils % (Manual) 0 % (0.0-1.8); Eosinophils % (Manual) 0 % (0.0-4.3); Myelocytes # (Manual) 0.2 K/mm3; Platelet Estimate Consistent w Auto; RBC Morphology Normal; Total Cells Counted 100
[2018-12-29] MEDS: BUDESONIDE 0.5 MG/2 ML NEBU IH SCH ×2 (09:06→21:16)
[2018-12-29] MEDS: IPRATROPIUM/ALBUTEROL SULFATE 3 ML AMPUL.NEB IH SCH ×5 (09:06→21:16)
[2018-12-29] MEDS: amLODIPine 10 MG TAB PO SCH (09:41)
[2018-12-29] MEDS: allopurinoL 100 MG TAB PO SCH (09:41)
[2018-12-29] MEDS: METOPROLOL TARTRATE 50 MG TAB PO SCH ×2 (09:41→21:50)
[2018-12-29] MEDS: SODIUM BICARBONATE 650 MG TAB PO SCH ×2 (09:41→21:51)
[2018-12-29] MEDS: FAMOTIDINE 10 MG TAB PO SCH ×2 (09:41→21:51)
[2018-12-29] MEDS ORDERED: FAMOTIDINE 20 MG TAB PO SCH (10:00)
[2018-12-29] MEDS ORDERED: POTASSIUM CHLORIDE ER 20 MEQ TAB PO SCH (10:00)
[2018-12-29] MEDS ORDERED: IPRATROPIUM IH SCH (10:00)
[2018-12-29] MEDS ORDERED: ALBUTEROL SULFATE IH SCH (10:00)
--- NOTE | 2018-12-29 11:01 | Consultation ---
History of Present Illness Consult date: 12/29/18 Consult reason: congestive heart failure History of present illness: This is a 78-year old woman with multiple medical problems including a history of chronic respiratory failure, COPD on home oxygen who presented with shortness of breath with minimal exertion. She was placed on Bipap therapy in the emergency department. Noted with an uncontrolled systolic blood pressure ranging from 180's to 218. A cardiac consultation has been requested for CHF evaluation. Initial lab measurement shows a creatinine of 2.4 and a proBNP greater than 14,000. A chest x-ray reports no evidence of interstitial disease.There is no lower extremity edema. Patient is known to [facility] and shows with Dr Santos on a routine basis. She has a cardiac history of coronary artery disease with prior bypass grafting in 2006. An echocardiogram done in October reports a normal left ventricular systolic function, ejection fraction 60%. Medications and Allergies Allergies Allergy/AdvReac Type Severity Reaction Status Date / Time latex Allergy Hives Verified 01/23/18 09:20 milk Allergy Rash Verified 01/23/18 09:20 Home Medications Medication Instructions Recorded Confirmed Last Taken Type Ipratropium/Albuterol Sulfate 1 puff IH BID 01/23/18 12/28/18 Unknown History [Combivent Respimat] Allopurinol [Zyloprim] 100 mg PO QDAY #30 tablet 01/27/18 12/28/18 Unknown Rx Metoprolol [Lopressor TAB] 50 mg PO BID #60 tablet 01/27/18 12/28/18 Unknown Rx Montelukast [Singulair] 10 mg PO QPM #30 tablet 01/27/18 12/28/18 Unknown Rx Pravastatin [Pravachol] 40 mg PO QHS #30 tablet 01/27/18 12/28/18 Unknown Rx amLODIPine 10 mg PO DAILY #30 tablet 01/27/18 12/28/18 Unknown Rx hydrALAZINE [Apresoline TAB] 100 mg PO TID #90 tab 01/27/18 12/28/18 Unknown Rx Famotidine [Pepcid] 20 mg PO BID 06/17/18 12/28/18 Unknown History traMADol [Ultram 50 MG tab] 50 mg PO Q8H PRN 06/17/18 12/28/18 Unknown History ALBUTEROL NEB's [Proventil 0.083% 2.5 mg IH Q4HRT PRN #60 nebu 06/25/18 12/28/18 Unknown Rx NEBS] Budesonide [Pulmicort Respules] 0.5 mg IH Q12HRT #60 nebu 06/25/18 12/28/18 Unknown Rx Prednisone [predniSONE 10 mg 10 mg PO .TAPER #1 tab.ds.pk 06/25/18 12/28/18 Unknown Rx (6-Day Pack, 21 Tabs)] Sodium Bicarbonate 650 mg PO BID #60 tablet 06/25/18 12/28/18 Unknown Rx Active Meds: Active Medications Acetaminophen (Tylenol) 650 mg PO Q4H PRN PRN Reason: Pain MILD(1-3)/Fever >100.5/HERRMANN Last Admin: 12/29/18 08:33 Dose: 650 mg Documented by: Albuterol/Ipratropium (Duoneb *Not For Prn Use*) 1 ampul IH QIDRT [facility] Last Admin: 12/29/18 09:06 Dose: 1 ampul Documented by: Allopurinol (Zyloprim) 100 mg PO QDAY [facility] Last Admin: 12/29/18 09:41 Dose: 100 mg Documented by: Amlodipine Besylate (Amlodipine) 10 mg PO DAILY [facility] Last Admin: 12/29/18 09:41 Dose: 10 mg Documented by: Budesonide (Pulmicort) 0.5 mg IH Q12HRT [facility] Last Admin: 12/29/18 09:06 Dose: 0.5 mg Documented by: Famotidine (Pepcid) 10 mg PO BID [facility] Last Admin: 12/29/18 09:41 Dose: 10 mg Documented by: Furosemide (Lasix) 40 mg IV 0600,1800 [facility] Last Admin: 12/29/18 05:15 Dose: 40 mg Documented by: Hydralazine HCl (Apresoline) 100 mg PO TID [facility] Last Admin: 12/29/18 08:33 Dose: 100 mg Documented by: Hydralazine HCl (Apresoline) 10 mg IV Q3H PRN PRN Reason: Blood Pressure Last Admin: 12/29/18 08:39 Dose: 10 mg Documented by: Hydromorphone HCl (Dilaudid) 0.5 mg IV Q3H PRN PRN Reason: Pain , Severe (7-10) Metoclopramide HCl (Reglan) 5 mg IV Q6H PRN PRN Reason: Nausea And Vomiting Metoprolol Tartrate (Metoprolol) 50 mg PO BID [facility] Last Admin: 12/29/18 09:41 Dose: 50 mg Documented by: Montelukast Sodium (Singulair) 10 mg PO QPM [facility] Ondansetron HCl (Zofran) 4 mg IV Q8H PRN PRN Reason: Nausea And Vomiting Oxycodone/Acetaminophen (Percocet 5/325) 1 tab PO Q6H PRN PRN Reason: Pain, Moderate (4-6) Last Admin: 12/29/18 00:54 Dose: 1 tab Documented by: Pravastatin Sodium (Pravachol) 40 mg PO QHS [facility] Sodium Bicarbonate (Sodium Bicarbonate) 650 mg PO BID [facility] Last Admin: 12/29/18 09:41 Dose: 650 mg Documented by: Sodium Chloride (Sodium Chloride Flush Syringe 10 Ml) 10 ml IV BID [facility] Last Admin: 12/29/18 09:41 Dose: 10 ml Documented by: Sodium Chloride (Sodium Chloride Flush Syringe 10 Ml) 10 ml IV PRN PRN PRN Reason: LINE FLUSH Tramadol HCl (Ultram) 50 mg PO Q8H PRN PRN Reason: Pain, Moderate (4-6) Physical Examination Vital Signs Temp Pulse Resp BP Pulse Ox 98.0 F 89 20 182/91 100 12/28/18 16:20 12/28/18 16:20 12/28/18 16:20 12/28/18 16:20 12/28/18 16:20 General appearance: other (on Bipap) HEENT: Positive: PERRL Cardiac: Positive: Reg Rate and Rhythm Lungs: Positive: Decreased Breath Sounds Results 12/29/18 05:25 12/29/18 05:25 Cardiac Enzymes 12/28/18 12/29/18 Range/Units Unknown 05:25 AST 54 H 58 H (5-40) units/L Coagulation 12/28/18 Range/Units Unknown PT 13.1 (12.2-14.9) Sec. INR 1.00 (0.87-1.13) APTT 25.5 (24.2-36.6) Sec. Lipids 12/28/18 Range/Units Unknown Triglycerides 175 H (2-149) mg/dL Cholesterol 265 H (50-199) mg/dL HDL Cholesterol 98 H (40-59) mg/dL Cholesterol/HDL Ratio 2.70 % CBC 12/28/18 12/29/18 Range/Units Unknown 05:25 WBC 7.5 9.9 (4.5-11.0) K/mm3 RBC 4.07 4.45 (3.65-5.03) M/mm3 Hgb 11.3 12.2 (10.1-14.3) gm/dl Hct 35.0 37.7 (30.3-42.9) % Plt Count 173 192 (140-440) K/mm3 Comprehensive Metabolic Panel 12/28/18 12/28/18 12/29/18 Range/Units Unknown Unknown 05:25 Sodium 138 141 (137-145) mmol/L Potassium 5.4 H 4.9 (3.6-5.0) mmol/L Chloride 101.1 100.6 (98-107) mmol/L Carbon Dioxide 19 L 23 (22-30) mmol/L BUN 41 H 44 H (7-17) mg/dL Creatinine 2.3 H 2.4 H (0.7-1.2) mg/dL Glucose 274 H 96 (65-100) mg/dL Calcium 9.4 10.0 (8.4-10.2) mg/dL Direct Bilirubin < 0.2 (0-0.2) mg/dL Indirect Bilirubin 0.0 mg/dL AST 54 H 58 H (5-40) units/L ALT 62 H 82 H (7-56) units/L Alkaline Phosphatase 93 105 (35-129) units/L Total Protein 6.9 8.0 (6.3-8.2) g/dL Albumin 3.8 L 4.1 (3.9-5) g/dL
[2018-12-29] MEDS: HEPARIN 5,000 UNIT/1 ML VIAL SUB-Q SCH ×2 (11:11→21:51)
--- NOTE | 2018-12-29 11:31 | Progress Note ---
Assessment and Plan Assessment and plan: 78-year-old woman who presented to the hospital with shortness of breath COPD exacerbation Continue BiPAP as needed. Pulmonology consult pending, steroids nebulizers Acute hypoxic respiratory failure Continue rescue BiPAP and will try on nasal cannula if patient tolerates. Acute on chronic systolic CHF, EF 45% Has mild pulmonary edema, judicious use of diuretics Patient will need predischarge MPI Chronic kidney disease stage III Creatinine is at baseline, nephrology consult, judicious use of diuretics DVT prophylaxis chemical History Interval history: Review of systems Constitutional: No fevers, no malaise, no joint pains CVS: No chest pain, has had mild orthopnea, no pedal edema GI: No abdominal pain, no diarrhea, no vomiting, no constipation Respiratory: Complaining of severe shortness of breath Hospitalist Physical - Physical exam Narrative exam: General.: Appears well, no distress, nontoxic HEENT: Moist mucous membranes, extraocular muscles intact, no lymphadenopathy Neck: supple Cardiac: S1-S2 heard Lungs: Minimal crackles in the bases, decreased air entry. Abdomen: soft , nontender, nondistended, bowel sounds positive Extremities: no edema clubbing or cyanosis Skin: no rash or lesions Neurologic: no gross focal deficits Psych: calm, and cooperative - Constitutional Vitals: Temp Pulse Resp BP Pulse Ox 97.9 F 88 16 204/105 99 12/29/18 08:11 12/29/18 08:11 12/29/18 08:11 12/29/18 08:11 12/29/18 08:11 General appearance: Present: other (on Bipap) Results - Labs CBC & Chem 7: 12/29/18 05:25 12/29/18 05:25 Labs: Laboratory Last Values WBC 9.9 K/mm3 (4.5-11.0) 12/29/18 05:25 RBC 4.45 M/mm3 (3.65-5.03) 12/29/18 05:25 Hgb 12.2 gm/dl (10.1-14.3) 12/29/18 05:25 Hct 37.7 % (30.3-42.9) 12/29/18 05:25 MCV 85 fl (79-97) 12/29/18 05:25 MCH 27 pg (28-32) L 12/29/18 05:25 MCHC 32 % (30-34) 12/29/18 05:25 RDW 16.0 % (13.2-15.2) H 12/29/18 05:25 Plt Count 192 K/mm3 (140-440) 12/29/18 05:25 Add Manual Diff Complete 12/29/18 05:25 Total Counted 100 12/29/18 05:25 Seg Neutrophils % Ragman 12/28/18 Unknown Seg Neuts % (Manual) 74.0 % (40.0-70.0) H 12/29/18 05:25 Band Neutrophils % 1.0 % 12/29/18 05:25 Lymphocytes % (Manual) 18.0 % (13.4-35.0) 12/29/18 05:25 Reactive Lymphs % (Man) 0 % 12/29/18 05:25 Monocytes % (Manual) 5.0 % (0.0-7.3) 12/29/18 05:25 Eosinophils % (Manual) 0 % (0.0-4.3) 12/29/18 05:25 Basophils % (Manual) 0 % (0.0-1.8) 12/29/18 05:25 Metamyelocytes % 0 % 12/29/18 05:25 Myelocytes % 2.0 % 12/29/18 05:25 Promyelocytes % 0 % 12/29/18 05:25 Blast Cells % 0 % 12/29/18 05:25 Nucleated RBC % Not Reportable 12/29/18 05:25 Seg Neutrophils # Man 7.3 K/mm3 (1.8-7.7) 12/29/18 05:25 Band Neutrophils # 0.1 K/mm3 12/29/18 05:25 Lymphocytes # (Manual) 1.8 K/mm3 (1.2-5.4) 12/29/18 05:25 Abs React Lymphs (Man) 0.0 K/mm3 12/29/18 05:25 Monocytes # (Manual) 0.5 K/mm3 (0.0-0.8) 12/29/18 05:25 Eosinophils # (Manual) 0.0 K/mm3 (0.0-0.4) 12/29/18 05:25 Basophils # (Manual) 0.0 K/mm3 (0.0-0.1) 12/29/18 05:25 Metamyelocytes # 0.0 K/mm3 12/29/18 05:25 Myelocytes # 0.2 K/mm3 12/29/18 05:25 Promyelocytes # 0.0 K/mm3 12/29/18 05:25 Blast Cells # 0.0 K/mm3 12/29/18 05:25 WBC Morphology Not Reportable 12/29/18 05:25 Hypersegmented Neuts Not Reportable 12/29/18 05:25 Hyposegmented Neuts Not Reportable 12/29/18 05:25 Hypogranular Neuts Not Reportable 12/29/18 05:25 Smudge Cells Not Reportable 12/29/18 05:25 Toxic Granulation Not Reportable 12/29/18 05:25 Toxic Vacuolation Not Reportable 12/29/18 05:25 Dohle Bodies Not Reportable 12/29/18 05:25 Pelger-Huet Anomaly Not Reportable 12/29/18 05:25 Ariel Rods Not Reportable 12/29/18 05:25 Platelet Estimate Consistent w auto 12/29/18 05:25 Clumped Platelets Not Reportable 12/29/18 05:25 Plt Clumps, EDTA Not Reportable 12/29/18 05:25 Large Platelets Not Reportable 12/29/18 05:25 Giant Platelets Not Reportable 12/29/18 05:25 Platelet Satelliting Not Reportable 12/29/18 05:25 Plt Morphology Comment Not Reportable 12/29/18 05:25 RBC Morphology Normal 12/29/18 05:25 Dimorphic RBCs Not Reportable 12/29/18 05:25 Polychromasia Not Reportable 12/29/18 05:25 Hypochromasia Not Reportable 12/29/18 05:25 Poikilocytosis Not Reportable 12/29/18 05:25 Anisocytosis Not Reportable 12/29/18 05:25 Microcytosis Not Reportable 12/29/18 05:25 Macrocytosis Not Reportable 12/29/18 05:25 Spherocytes Not Reportable 12/29/18 05:25 Pappenheimer Bodies Not Reportable 12/29/18 05:25 Sickle Cells Not Reportable 12/29/18 05:25 Target Cells Not Reportable 12/29/18 05:25 Tear Drop Cells Not Reportable 12/29/18 05:25 Ovalocytes Not Reportable 12/29/18 05:25 Helmet Cells Not Reportable 12/29/18 05:25 Edwards-De Graff Bodies Not Reportable 12/29/18 05:25 Onaka Rings Not Reportable 12/29/18 05:25 Bethany Cells Not Reportable 12/29/18 05:25 Bite Cells Not Reportable 12/29/18 05:25 Crenated Cell Not Reportable 12/29/18 05:25 Elliptocytes Not Reportable 12/29/18 05:25 Acanthocytes (Spur) Not Reportable 12/29/18 05:25 Rouleaux Not Reportable 12/29/18 05:25 Hemoglobin C Crystals Not Reportable 12/29/18 05:25 Schistocytes Not Reportable 12/29/18 05:25 Malaria parasites Not Reportable 12/29/18 05:25 Garland Bodies Not Reportable 12/29/18 05:25 Hem Pathologist Commnt No 12/29/18 05:25 PT 13.1 Sec. (12.2-14.9) 12/28/18 Unknown INR 1.00 (0.87-1.13) 12/28/18 Unknown APTT 25.5 Sec. (24.2-36.6) 12/28/18 Unknown Sodium 141 mmol/L (137-145) 12/29/18 05:25 Potassium 4.9 mmol/L (3.6-5.0) 12/29/18 05:25 Chloride 100.6 mmol/L (98-107) 12/29/18 05:25 Carbon Dioxide 23 mmol/L (22-30) 12/29/18 05:25 Anion Gap 22 mmol/L 12/29/18 05:25 BUN 44 mg/dL (7-17) H 12/29/18 05:25 Creatinine 2.4 mg/dL (0.7-1.2) H 12/29/18 05:25 Estimated GFR 24 ml/min 12/29/18 05:25 BUN/Creatinine Ratio 18 % 12/29/18 05:25 Glucose 96 mg/dL (65-100) 12/29/18 05:25 POC Glucose 105 (70-105) 12/29/18 09:15 Hemoglobin A1c 6.6 % (4-6) H 12/29/18 05:25 Calcium 10.0 mg/dL (8.4-10.2) 12/29/18 05:25 Total Bilirubin 0.40 mg/dL (0.1-1.2) 12/29/18 05:25 Direct Bilirubin < 0.2 mg/dL (0-0.2) 12/28/18 Unknown Indirect Bilirubin 0.0 mg/dL 12/28/18 Unknown AST 58 units/L (5-40) H 12/29/18 05:25 ALT 82 units/L (7-56) H 12/29/18 05:25 Alkaline Phosphatase 105 units/L (35-129) 12/29/18 05:25 Troponin T 0.047 ng/mL (0.00-0.029) H 12/28/18 Unknown NT-Pro-B Natriuret Pep 41155 pg/mL (0-900) H 12/28/18 Unknown Total Protein 8.0 g/dL (6.3-8.2) 12/29/18 05:25 Albumin 4.1 g/dL (3.9-5) 12/29/18 05:25 Albumin/Globulin Ratio 1.1 % 12/29/18 05:25 Triglycerides 175 mg/dL (2-149) H 12/28/18 Unknown Cholesterol 265 mg/dL (50-199) H 12/28/18 Unknown LDL Cholesterol Direct 158 mg/dL (50-130) H 12/28/18 Unknown HDL Cholesterol 98 mg/dL (40-59) H 12/28/18 Unknown Cholesterol/HDL Ratio 2.70 % 12/28/18 Unknown Active Medications - Current Medications Current Medications: Generic Name Dose Route Start Last Admin Trade Name Freq PRN Reason Stop Dose Admin Acetaminophen 650 mg 12/28/18 22:09 12/29/18 08:33 Tylenol PO 650 mg Q4H PRN Administration Pain MILD(1-3)/Fever >100.5/HERRMANN Albuterol/Ipratropium 1 ampul 12/29/18 08:00 12/29/18 09:06 Duoneb *Not For Prn Use* IH 1 ampul QIDRT KVNG Administration Allopurinol 100 mg 12/29/18 10:00 12/29/18 09:41 Zyloprim PO 100 mg QDAY KVNG Administration Amlodipine Besylate 10 mg 12/29/18 10:00 12/29/18 09:41 Amlodipine PO 10 mg DAILY KVNG Administration Budesonide 0.5 mg 12/29/18 08:00 12/29/18 09:06 Pulmicort IH 0.5 mg Q12HRT KVNG Administration Famotidine 10 mg 12/28/18 23:00 12/29/18 09:41 Pepcid PO 10 mg BID KVNG Administration Furosemide 40 mg 12/29/18 06:00 12/29/18 05:15 Lasix IV 40 mg 0600,1800 KVNG Administration Heparin Sodium (Porcine) 5,000 unit 12/29/18 11:30 12/29/18 11:11 Heparin SUB-Q 5,000 unit Q12HR KVNG Administration Hydralazine HCl 100 mg 12/29/18 08:00 12/29/18 08:33 Apresoline PO 100 mg TID KVNG Administration Hydralazine HCl 10 mg 12/28/18 22:05 12/29/18 08:39 Apresoline IV 10 mg Q3H PRN Administration Blood Pressure Hydromorphone HCl 0.5 mg 12/28/18 22:09 Dilaudid IV Q3H PRN Pain , Severe (7-10) Metoclopramide HCl 5 mg 12/28/18 22:27 Reglan IV Q6H PRN Nausea And Vomiting Metoprolol Tartrate 50 mg 12/28/18 23:00 12/29/18 09:41 Metoprolol PO 50 mg BID [facility] Administration Montelukast Sodium 10 mg 12/29/18 18:00 Singulair PO QPM [facility] Ondansetron HCl 4 mg 12/28/18 22:09 12/29/18 11:11 Zofran IV 4 mg Q8H PRN Administration Nausea And Vomiting Oxycodone/Acetaminophen 1 tab 12/28/18 22:09 12/29/18 00:54 Percocet 5/325 PO 1 tab Q6H PRN Administration Pain, Moderate (4-6) Pravastatin Sodium 40 mg 12/29/18 22:00 Pravachol PO QHS [facility] Sodium Bicarbonate 650 mg 12/28/18 23:00 12/29/18 09:41 Sodium Bicarbonate PO 650 mg BID KVNG Administration Sodium Chloride 10 ml 12/28/18 23:00 12/29/18 09:41 Sodium Chloride Flush Syringe 10 Ml IV 10 ml BID KVNG Administration Sodium Chloride 10 ml 12/28/18 22:09 Sodium Chloride Flush Syringe 10 Ml IV PRN PRN LINE FLUSH Tramadol HCl 50 mg 12/28/18 22:03 Ultram PO Q8H PRN Pain, Moderate (4-6)
[2018-12-29] MEDS: methylPREDNISolone Sod Succinate 125 MG/2 ML INJ IV SCH ×2 (16:05→23:00)
[2018-12-29] MEDS: MONTELUKAST 10 MG TAB PO SCH (18:57)
[2018-12-29] MEDS: PRAVASTATIN 40 MG TAB PO SCH (21:51)
[2018-12-30] MEDS: hydrALAZINE 20 MG/1 ML INJ IV PRN ×2 (05:06→18:25)
[2018-12-30] MEDS: FUROSEMIDE 40 MG/4 ML INJ IV SCH ×2 (05:06→18:25)
[2018-12-30] MEDS: oxyCODONE /ACETAMINOPHEN 5-325MG TAB PO PRN (05:14)
[2018-12-30] MEDS: hydrALAZINE 100 MG TAB PO SCH ×3 (08:40→21:28)
[2018-12-30] MEDS: methylPREDNISolone Sod Succinate 125 MG/2 ML INJ IV SCH ×2 (08:40→18:24)
[2018-12-30] MEDS: IPRATROPIUM/ALBUTEROL SULFATE 3 ML AMPUL.NEB IH SCH ×3 (09:23→20:30)
[2018-12-30] MEDS: BUDESONIDE 0.5 MG/2 ML NEBU IH SCH ×2 (09:23→20:30)
[2018-12-30] MEDS: amLODIPine 10 MG TAB PO SCH (09:52)
[2018-12-30] MEDS: SODIUM BICARBONATE 650 MG TAB PO SCH ×2 (09:53→21:28)
[2018-12-30] MEDS: HEPARIN 5,000 UNIT/1 ML VIAL SUB-Q SCH ×2 (09:53→21:28)
[2018-12-30] MEDS: allopurinoL 100 MG TAB PO SCH (09:53)
[2018-12-30] MEDS: METOPROLOL TARTRATE 50 MG TAB PO SCH ×2 (09:53→21:28)
[2018-12-30] MEDS: FAMOTIDINE 10 MG TAB PO SCH ×2 (09:53→21:28)
--- NOTE | 2018-12-30 10:46 | Progress Note ---
<ELIZABETH ALBERTO - Last Filed: 12/30/18 10:42> Assessment and Plan COPD on home oxygen Hx of coronary artery disease s/p CABG in 2006 Mild cardiomyopathy echocardiogram done 01/2018 reports an ejection fraction of 40-45%. echocardiogram on this presentation reports an ejection fraction 45-50%. Chronic kidney disease Hypertension Recommendations: Continue medical therapy including diuretics as tolerated for mild fluid overload. Lexiscan thallium stress test for further ischemia assessment will be done . Subjective Date of service: 12/30/18 Interval history: Patient reports her breathing is better. No distress noted. Objective Vital Signs Temp Pulse Pulse Resp Resp BP BP 12/30/18 09:53 86 211/104 12/30/18 09:52 86 211/104 12/30/18 09:43 98 H 20 12/30/18 09:23 12/30/18 08:28 98.6 F 86 18 211/104 12/30/18 05:14 20 12/30/18 05:06 85 187/94 12/30/18 04:01 98.6 F 87 18 187/94 12/30/18 03:00 83 12/30/18 00:30 84 168/84 12/30/18 00:00 87 18 12/29/18 22:28 98.6 F 89 17 171/78 12/29/18 22:27 22 12/29/18 21:50 88 180/88 12/29/18 21:49 0 L 12/29/18 21:18 12/29/18 21:16 89 20 12/29/18 19:30 98.1 F 89 18 180/88 12/29/18 19:00 88 12/29/18 17:13 92 H 20 12/29/18 16:16 98.4 F 83 18 177/88 12/29/18 14:25 88 22 12/29/18 11:27 96.6 F L 74 20 154/86 Pulse Ox 12/30/18 09:53 12/30/18 09:52 12/30/18 09:43 12/30/18 09:23 99 12/30/18 08:28 100 12/30/18 05:14 12/30/18 05:06 12/30/18 04:01 100 12/30/18 03:00 12/30/18 00:30 12/30/18 00:00 100 12/29/18 22:28 97 12/29/18 22:27 12/29/18 21:50 12/29/18 21:49 12/29/18 21:18 100 12/29/18 21:16 12/29/18 19:30 100 12/29/18 19:00 12/29/18 17:13 12/29/18 16:16 100 12/29/18 14:25 12/29/18 11:27 98 - Physical Examination General: No Apparent Distress HEENT: Positive: PERRL Neck: Positive: trachea midline Cardiac: Positive: Reg Rate and Rhythm Lungs: Positive: Decreased Breath Sounds Neuro: Positive: Grossly Intact Extremities: Absent: edema - Imaging and Cardiology EKG: report reviewed <GLENN BURRELL - Last Filed: 12/30/18 12:07> Assessment and Plan I've seen and evaluated the patient and agree with the assessment and plan. The patient presents with history of COPD on home oxygen, history of coronary artery disease status post bypass in 2006, and mild LV dysfunction, as well as chronic kidney disease and hypertension. At this time continue maximal medical therapy for treatment of cardiomyopathy. Continue gentle diuresis as tolerated for volume removal. Plan for Lexiscan tomorrow. Objective Vital Signs Temp Pulse Pulse Resp Resp BP BP 12/30/18 11:59 98.9 F 85 18 181/87 12/30/18 11:04 12/30/18 10:50 88 12/30/18 10:00 22 12/30/18 09:53 86 211/104 12/30/18 09:52 86 211/104 12/30/18 09:43 98 H 20 12/30/18 09:23 12/30/18 08:28 98.6 F 86 18 211/104 12/30/18 05:14 20 12/30/18 05:06 85 187/94 12/30/18 04:01 98.6 F 87 18 187/94 12/30/18 03:00 83 12/30/18 00:30 84 168/84 12/30/18 00:00 87 18 12/29/18 22:28 98.6 F 89 17 171/78 12/29/18 22:27 22 12/29/18 21:50 88 180/88 12/29/18 21:49 0 L 12/29/18 21:18 12/29/18 21:16 89 20 12/29/18 19:30 98.1 F 89 18 180/88 12/29/18 19:00 88 12/29/18 17:13 92 H 20 12/29/18 16:16 98.4 F 83 18 177/88 12/29/18 14:25 88 22 Pulse Ox 12/30/18 11:59 98 12/30/18 11:04 99 12/30/18 10:50 12/30/18 10:00 12/30/18 09:53 12/30/18 09:52 12/30/18 09:43 12/30/18 09:23 99 12/30/18 08:28 100 12/30/18 05:14 12/30/18 05:06 12/30/18 04:01 100 12/30/18 03:00 12/30/18 00:30 12/30/18 00:00 100 12/29/18 22:28 97 12/29/18 22:27 12/29/18 21:50 12/29/18 21:49 12/29/18 21:18 100 12/29/18 21:16 12/29/18 19:30 100 12/29/18 19:00 12/29/18 17:13 12/29/18 16:16 100 12/29/18 14:25
--- NOTE | 2018-12-30 11:09 | Consultation ---
History of Present Illness Consult date: 12/30/18 Requesting physician: HANSEL MOLINA Reason for consult: COPD History of present illness: 78 y/o female with known COPD and CHF followed by Hema, with chronic respiratory failure admitted with worsening shortness of breath. patient with shortness of breath for about 3 days duration prior to coming in. Found to have elevated BNP as well. Patient placed on IV diuresis and cardiology seen. Past History Past Medical History: COPD, hypertension, other (chronic respiratory failure) Social history: no significant social history Family history: CAD Medications and Allergies Allergies Allergy/AdvReac Type Severity Reaction Status Date / Time latex Allergy Hives Verified 01/23/18 09:20 milk Allergy Rash Verified 01/23/18 09:20 Home Medications Medication Instructions Recorded Confirmed Last Taken Type Ipratropium/Albuterol Sulfate 1 puff IH BID 01/23/18 12/28/18 Unknown History [Combivent Respimat] Allopurinol [Zyloprim] 100 mg PO QDAY #30 tablet 01/27/18 12/28/18 Unknown Rx Metoprolol [Lopressor TAB] 50 mg PO BID #60 tablet 01/27/18 12/28/18 Unknown Rx Montelukast [Singulair] 10 mg PO QPM #30 tablet 01/27/18 12/28/18 Unknown Rx Pravastatin [Pravachol] 40 mg PO QHS #30 tablet 01/27/18 12/28/18 Unknown Rx amLODIPine 10 mg PO DAILY #30 tablet 01/27/18 12/28/18 Unknown Rx hydrALAZINE [Apresoline TAB] 100 mg PO TID #90 tab 01/27/18 12/28/18 Unknown Rx Famotidine [Pepcid] 20 mg PO BID 06/17/18 12/28/18 Unknown History traMADoL [Ultram 50 MG tab] 50 mg PO Q8H PRN 06/17/18 12/28/18 Unknown History ALBUTEROL NEB's [Proventil 0.083% 2.5 mg IH Q4HRT PRN #60 nebu 06/25/18 12/28/18 Unknown Rx NEBS] Budesonide [Pulmicort Respules] 0.5 mg IH Q12HRT #60 nebu 06/25/18 12/28/18 Unknown Rx Prednisone [predniSONE 10 mg 10 mg PO .TAPER #1 tab.ds.pk 06/25/18 12/28/18 Unknown Rx (6-Day Pack, 21 Tabs)] Sodium Bicarbonate 650 mg PO BID #60 tablet 06/25/18 12/28/18 Unknown Rx Active Meds: Active Medications Acetaminophen (Tylenol) 650 mg PO Q4H PRN PRN Reason: Pain MILD(1-3)/Fever >100.5/HERRMANN Last Admin: 12/29/18 08:33 Dose: 650 mg Documented by: Albuterol/Ipratropium (Duoneb *Not For Prn Use*) 1 ampul IH QIDRT [facility] Last Admin: 12/30/18 09:23 Dose: 1 ampul Documented by: Allopurinol (Zyloprim) 100 mg PO QDAY [facility] Last Admin: 12/30/18 09:53 Dose: 100 mg Documented by: Amlodipine Besylate (Amlodipine) 10 mg PO DAILY [facility] Last Admin: 12/30/18 09:52 Dose: 10 mg Documented by: Budesonide (Pulmicort) 0.5 mg IH Q12HRT [facility] Last Admin: 12/30/18 09:23 Dose: 0.5 mg Documented by: Famotidine (Pepcid) 10 mg PO BID [facility] Last Admin: 12/30/18 09:53 Dose: 10 mg Documented by: Furosemide (Lasix) 40 mg IV 0600,1800 [facility] Last Admin: 12/30/18 05:06 Dose: 40 mg Documented by: Heparin Sodium (Porcine) (Heparin) 5,000 unit SUB-Q Q12HR [facility] Last Admin: 12/30/18 09:53 Dose: 5,000 unit Documented by: Hydralazine HCl (Apresoline) 100 mg PO TID [facility] Last Admin: 12/30/18 08:40 Dose: 100 mg Documented by: Hydralazine HCl (Apresoline) 10 mg IV Q3H PRN PRN Reason: Blood Pressure Last Admin: 12/30/18 05:06 Dose: 10 mg Documented by: Hydromorphone HCl (Dilaudid) 0.5 mg IV Q3H PRN PRN Reason: Pain , Severe (7-10) Methylprednisolone Sodium Succinate (Solu-Medrol) 80 mg IV Q8H [facility] Last Admin: 12/30/18 08:40 Dose: 80 mg Documented by: Metoclopramide HCl (Reglan) 5 mg IV Q6H PRN PRN Reason: Nausea And Vomiting Metoprolol Tartrate (Metoprolol) 50 mg PO BID [facility] Last Admin: 12/30/18 09:53 Dose: 50 mg Documented by: Montelukast Sodium (Singulair) 10 mg PO QPM [facility] Last Admin: 12/29/18 18:57 Dose: 10 mg Documented by: Ondansetron HCl (Zofran) 4 mg IV Q8H PRN PRN Reason: Nausea And Vomiting Last Admin: 12/29/18 11:11 Dose: 4 mg Documented by: Oxycodone/Acetaminophen (Percocet 5/325) 1 tab PO Q6H PRN PRN Reason: Pain, Moderate (4-6) Last Admin: 12/30/18 05:14 Dose: 1 tab Documented by: Pravastatin Sodium (Pravachol) 40 mg PO QHS [facility] Last Admin: 12/29/18 21:51 Dose: 40 mg Documented by: Sodium Bicarbonate (Sodium Bicarbonate) 650 mg PO BID [facility] Last Admin: 12/30/18 09:53 Dose: 650 mg Documented by: Sodium Chloride (Sodium Chloride Flush Syringe 10 Ml) 10 ml IV BID [facility] Last Admin: 12/30/18 09:53 Dose: 10 ml Documented by: Sodium Chloride (Sodium Chloride Flush Syringe 10 Ml) 10 ml IV PRN PRN PRN Reason: LINE FLUSH Tramadol HCl (Ultram) 50 mg PO Q8H PRN PRN Reason: Pain, Moderate (4-6) Review of Systems All systems: negative Physical Examination Vital signs: Vital Signs Temp Pulse Resp BP Pulse Ox 98.0 F 89 20 182/91 100 12/28/18 16:20 12/28/18 16:20 12/28/18 16:20 12/28/18 16:20 12/28/18 16:20 General appearance: no acute distress, alert Eyes: non-icteric ENT: oropharynx moist Neck: supple Effort: normal Ascultation: Bilateral: wheezes, rales Percussion: Bilateral: not dull Tactile fremitus: Bilateral: normal Cardiovascular: regular rate and rhythm Gastrointestinal: normoactive bowel sounds, soft Musculoskeletal: no deformities normal mental status Results - Laboratory Findings CBC and BMP: 12/29/18 05:25 12/29/18 05:25 PT/INR, D-dimer PT 13.1 Sec. (12.2-14.9) 12/28/18 Unknown INR 1.00 (0.87-1.13) 12/28/18 Unknown Abnormal lab findings: Abnormal Labs 12/28/18 12/28/18 12/28/18 20:53 Unknown Unknown MCH RDW 16.3 H Seg Neuts % (Manual) 93.0 H Lymphocytes % (Manual) 4.0 L Lymphocytes # (Manual) 0.3 L Potassium 5.4 H Carbon Dioxide 19 L BUN 41 H Creatinine 2.3 H Glucose 274 H Hemoglobin A1c AST ALT Troponin T 0.052 H NT-Pro-B Natriuret Pep Albumin Triglycerides Cholesterol LDL Cholesterol Direct HDL Cholesterol 12/28/18 12/29/18 12/29/18 Unknown 05:25 05:25 MCH 27 L RDW 16.0 H Seg Neuts % (Manual) 74.0 H Lymphocytes % (Manual) Lymphocytes # (Manual) Potassium Carbon Dioxide BUN Creatinine Glucose Hemoglobin A1c 6.6 H AST 54 H ALT 62 H Troponin T 0.047 H NT-Pro-B Natriuret Pep 99441 H Albumin 3.8 L Triglycerides 175 H Cholesterol 265 H LDL Cholesterol Direct 158 H HDL Cholesterol 98 H 12/29/18 05:25 MCH RDW Seg Neuts % (Manual) Lymphocytes % (Manual) Lymphocytes # (Manual) Potassium Carbon Dioxide BUN 44 H Creatinine 2.4 H Glucose Hemoglobin A1c AST 58 H ALT 82 H Troponin T NT-Pro-B Natriuret Pep Albumin Triglycerides Cholesterol LDL Cholesterol Direct HDL Cholesterol - Diagnostic Findings Chest x-ray: image reviewed (hyperinflation with what appears to be chronic interstitial changes, possibly some superimposed edema) Assessment and Plan 78 y/o with known COPD and chronic respiratory failure admitted with worsening shortness of breath. 1. Start to wean steroids 2. Follow up Cardiology recs (stress tomorrow) 3. Needs outpatient GEORGETTE screening 4. Continue pulmicort and scheduled nebs.
--- NOTE | 2018-12-30 12:18 | Progress Note ---
Assessment and Plan Assessment and plan: 78-year-old woman who presented to the hospital with shortness of breath COPD exacerbation Continue BiPAP as needed. Pulmonology consult pending, steroids nebulizers need op sleep study, suspect vicki Acute on chronic hypoxic respiratory failure Tolerating oxygen by nasal cannula. Uses 2.5 l at home, currently on 3 L Acute on chronic systolic CHF, EF 45% Has mild pulmonary edema, judicious use of diuretics Patient will need predischarge MPI tomorrow Chronic kidney disease stage III Creatinine is at baseline, nephrology consult, judicious use of diuretics DVT prophylaxis chemical History Interval history: Review of systems Constitutional: No fevers, no malaise, no joint pains CVS: No chest pain, has had mild orthopnea, no pedal edema GI: No abdominal pain, no diarrhea, no vomiting, no constipation Respiratory: Complaining of shortness of breath which has improved Hospitalist Physical - Physical exam Narrative exam: General.: Appears well, no distress, nontoxic HEENT: Moist mucous membranes, extraocular muscles intact, no lymphadenopathy Neck: supple Cardiac: S1-S2 heard Lungs: decreased air entry. Abdomen: soft , nontender, nondistended, bowel sounds positive Extremities: no edema clubbing or cyanosis Skin: no rash or lesions Neurologic: no gross focal deficits Psych: calm, and cooperative - Constitutional Vitals: Temp Pulse Resp BP Pulse Ox 98.9 F 85 18 181/87 98 12/30/18 11:59 12/30/18 11:59 12/30/18 11:59 12/30/18 11:59 12/30/18 11:59 General appearance: Present: other (on Bipap) Results - Labs CBC & Chem 7: 12/29/18 05:25 12/29/18 05:25 Labs: Laboratory Last Values WBC 9.9 K/mm3 (4.5-11.0) 12/29/18 05:25 RBC 4.45 M/mm3 (3.65-5.03) 12/29/18 05:25 Hgb 12.2 gm/dl (10.1-14.3) 12/29/18 05:25 Hct 37.7 % (30.3-42.9) 12/29/18 05:25 MCV 85 fl (79-97) 12/29/18 05:25 MCH 27 pg (28-32) L 12/29/18 05:25 MCHC 32 % (30-34) 12/29/18 05:25 RDW 16.0 % (13.2-15.2) H 12/29/18 05:25 Plt Count 192 K/mm3 (140-440) 12/29/18 05:25 Add Manual Diff Complete 12/29/18 05:25 Total Counted 100 12/29/18 05:25 Seg Neutrophils % [employer]ice 12/28/18 Unknown Seg Neuts % (Manual) 74.0 % (40.0-70.0) H 12/29/18 05:25 Band Neutrophils % 1.0 % 12/29/18 05:25 Lymphocytes % (Manual) 18.0 % (13.4-35.0) 12/29/18 05:25 Reactive Lymphs % (Man) 0 % 12/29/18 05:25 Monocytes % (Manual) 5.0 % (0.0-7.3) 12/29/18 05:25 Eosinophils % (Manual) 0 % (0.0-4.3) 12/29/18 05:25 Basophils % (Manual) 0 % (0.0-1.8) 12/29/18 05:25 Metamyelocytes % 0 % 12/29/18 05:25 Myelocytes % 2.0 % 12/29/18 05:25 Promyelocytes % 0 % 12/29/18 05:25 Blast Cells % 0 % 12/29/18 05:25 Nucleated RBC % Not Reportable 12/29/18 05:25 Seg Neutrophils # Man 7.3 K/mm3 (1.8-7.7) 12/29/18 05:25 Band Neutrophils # 0.1 K/mm3 12/29/18 05:25 Lymphocytes # (Manual) 1.8 K/mm3 (1.2-5.4) 12/29/18 05:25 Abs React Lymphs (Man) 0.0 K/mm3 12/29/18 05:25 Monocytes # (Manual) 0.5 K/mm3 (0.0-0.8) 12/29/18 05:25 Eosinophils # (Manual) 0.0 K/mm3 (0.0-0.4) 12/29/18 05:25 Basophils # (Manual) 0.0 K/mm3 (0.0-0.1) 12/29/18 05:25 Metamyelocytes # 0.0 K/mm3 12/29/18 05:25 Myelocytes # 0.2 K/mm3 12/29/18 05:25 Promyelocytes # 0.0 K/mm3 12/29/18 05:25 Blast Cells # 0.0 K/mm3 12/29/18 05:25 WBC Morphology Not Reportable 12/29/18 05:25 Hypersegmented Neuts Not Reportable 12/29/18 05:25 Hyposegmented Neuts Not Reportable 12/29/18 05:25 Hypogranular Neuts Not Reportable 12/29/18 05:25 Smudge Cells Not Reportable 12/29/18 05:25 Toxic Granulation Not Reportable 12/29/18 05:25 Toxic Vacuolation Not Reportable 12/29/18 05:25 Dohle Bodies Not Reportable 12/29/18 05:25 Pelger-Huet Anomaly Not Reportable 12/29/18 05:25 Ariel Rods Not Reportable 12/29/18 05:25 Platelet Estimate Consistent w auto 12/29/18 05:25 Clumped Platelets Not Reportable 12/29/18 05:25 Plt Clumps, EDTA Not Reportable 12/29/18 05:25 Large Platelets Not Reportable 12/29/18 05:25 Giant Platelets Not Reportable 12/29/18 05:25 Platelet Satelliting Not Reportable 12/29/18 05:25 Plt Morphology Comment Not Reportable 12/29/18 05:25 RBC Morphology Normal 12/29/18 05:25 Dimorphic RBCs Not Reportable 12/29/18 05:25 Polychromasia Not Reportable 12/29/18 05:25 Hypochromasia Not Reportable 12/29/18 05:25 Poikilocytosis Not Reportable 12/29/18 05:25 Anisocytosis Not Reportable 12/29/18 05:25 Microcytosis Not Reportable 12/29/18 05:25 Macrocytosis Not Reportable 12/29/18 05:25 Spherocytes Not Reportable 12/29/18 05:25 Pappenheimer Bodies Not Reportable 12/29/18 05:25 Sickle Cells Not Reportable 12/29/18 05:25 Target Cells Not Reportable 12/29/18 05:25 Tear Drop Cells Not Reportable 12/29/18 05:25 Ovalocytes Not Reportable 12/29/18 05:25 Helmet Cells Not Reportable 12/29/18 05:25 Edwards-Thayne Bodies Not Reportable 12/29/18 05:25 [place] Rings Not Reportable 12/29/18 05:25 [place] Cells Not Reportable 12/29/18 05:25 Bite Cells Not Reportable 12/29/18 05:25 Crenated Cell Not Reportable 12/29/18 05:25 Elliptocytes Not Reportable 12/29/18 05:25 Acanthocytes (Spur) Not Reportable 12/29/18 05:25 Rouleaux Not Reportable 12/29/18 05:25 Hemoglobin C Crystals Not Reportable 12/29/18 05:25 Schistocytes Not Reportable 12/29/18 05:25 Malaria parasites Not Reportable 12/29/18 05:25 [place] Bodies Not Reportable 12/29/18 05:25 Hem Pathologist Commnt No 12/29/18 05:25 PT 13.1 Sec. (12.2-14.9) 12/28/18 Unknown INR 1.00 (0.87-1.13) 12/28/18 Unknown APTT 25.5 Sec. (24.2-36.6) 12/28/18 Unknown Sodium 141 mmol/L (137-145) 12/29/18 05:25 Potassium 4.9 mmol/L (3.6-5.0) 12/29/18 05:25 Chloride 100.6 mmol/L (98-107) 12/29/18 05:25 Carbon Dioxide 23 mmol/L (22-30) 12/29/18 05:25 Anion Gap 22 mmol/L 12/29/18 05:25 BUN 44 mg/dL (7-17) H 12/29/18 05:25 Creatinine 2.4 mg/dL (0.7-1.2) H 12/29/18 05:25 Estimated GFR 24 ml/min 12/29/18 05:25 BUN/Creatinine Ratio 18 % 12/29/18 05:25 Glucose 96 mg/dL (65-100) 12/29/18 05:25 POC Glucose 105 (70-105) 12/29/18 09:15 Hemoglobin A1c 6.6 % (4-6) H 12/29/18 05:25 Calcium 10.0 mg/dL (8.4-10.2) 12/29/18 05:25 Total Bilirubin 0.40 mg/dL (0.1-1.2) 12/29/18 05:25 Direct Bilirubin < 0.2 mg/dL (0-0.2) 12/28/18 Unknown Indirect Bilirubin 0.0 mg/dL 12/28/18 Unknown AST 58 units/L (5-40) H 12/29/18 05:25 ALT 82 units/L (7-56) H 12/29/18 05:25 Alkaline Phosphatase 105 units/L (35-129) 12/29/18 05:25 Troponin T 0.047 ng/mL (0.00-0.029) H 12/28/18 Unknown NT-Pro-B Natriuret Pep 36469 pg/mL (0-900) H 12/28/18 Unknown Total Protein 8.0 g/dL (6.3-8.2) 12/29/18 05:25 Albumin 4.1 g/dL (3.9-5) 12/29/18 05:25 Albumin/Globulin Ratio 1.1 % 12/29/18 05:25 Triglycerides 175 mg/dL (2-149) H 12/28/18 Unknown Cholesterol 265 mg/dL (50-199) H 12/28/18 Unknown LDL Cholesterol Direct 158 mg/dL (50-130) H 12/28/18 Unknown HDL Cholesterol 98 mg/dL (40-59) H 12/28/18 Unknown Cholesterol/HDL Ratio 2.70 % 12/28/18 Unknown Active Medications - Current Medications Current Medications: Generic Name Dose Route Start Last Admin Trade Name Freq PRN Reason Stop Dose Admin Acetaminophen 650 mg 12/28/18 22:09 12/29/18 08:33 Tylenol PO 650 mg Q4H PRN Administration Pain MILD(1-3)/Fever >100.5/HERRMANN Albuterol/Ipratropium 1 ampul 12/30/18 14:00 Duoneb *Not For Prn Use* IH TIDRT PENDING SALE TO [facility] Allopurinol 100 mg 12/29/18 10:00 12/30/18 09:53 Zyloprim PO 100 mg QDAY KVNG Administration Amlodipine Besylate 10 mg 12/29/18 10:00 12/30/18 09:52 Amlodipine PO 10 mg DAILY KVNG Administration Budesonide 0.5 mg 12/29/18 08:00 12/30/18 09:23 Pulmicort IH 0.5 mg Q12HRT KVNG Administration Famotidine 10 mg 12/28/18 23:00 12/30/18 09:53 Pepcid PO 10 mg BID KVNG Administration Furosemide 40 mg 12/29/18 06:00 12/30/18 05:06 Lasix IV 40 mg 0600,1800 KVNG Administration Heparin Sodium (Porcine) 5,000 unit 12/29/18 11:30 12/30/18 09:53 Heparin SUB-Q 5,000 unit Q12HR KVNG Administration Hydralazine HCl 100 mg 12/29/18 08:00 12/30/18 08:40 Apresoline PO 100 mg TID KVNG Administration Hydralazine HCl 10 mg 12/28/18 22:05 12/30/18 05:06 Apresoline IV 10 mg Q3H PRN Administration Blood Pressure Hydromorphone HCl 0.5 mg 12/28/18 22:09 Dilaudid IV Q3H PRN Pain , Severe (7-10) Methylprednisolone Sodium Succinate 80 mg 12/29/18 16:00 12/30/18 08:40 Solu-Medrol IV 80 mg Q8H KVNG Administration Metoclopramide HCl 5 mg 12/28/18 22:27 Reglan IV Q6H PRN Nausea And Vomiting Metoprolol Tartrate 50 mg 12/28/18 23:00 12/30/18 09:53 Metoprolol PO 50 mg BID KVNG Administration Montelukast Sodium 10 mg 12/29/18 18:00 12/29/18 18:57 Singulair PO 10 mg QPM KVNG Administration Ondansetron HCl 4 mg 12/28/18 22:09 12/29/18 11:11 Zofran IV 4 mg Q8H PRN Administration Nausea And Vomiting Oxycodone/Acetaminophen 1 tab 12/28/18 22:09 12/30/18 05:14 Percocet 5/325 PO 1 tab Q6H PRN Administration Pain, Moderate (4-6) Pravastatin Sodium 40 mg 12/29/18 22:00 12/29/18 21:51 Pravachol PO 40 mg QHS KVNG Administration Sodium Bicarbonate 650 mg 12/28/18 23:00 12/30/18 09:53 Sodium Bicarbonate PO 650 mg BID KVNG Administration Sodium Chloride 10 ml 12/28/18 23:00 12/30/18 09:53 Sodium Chloride Flush Syringe 10 Ml IV 10 ml BID KVNG Administration Sodium Chloride 10 ml 12/28/18 22:09 Sodium Chloride Flush Syringe 10 Ml IV PRN PRN LINE FLUSH Tramadol HCl 50 mg 12/28/18 22:03 Ultram PO Q8H PRN Pain, Moderate (4-6)
[2018-12-30] MEDS: MONTELUKAST 10 MG TAB PO SCH (18:25)
[2018-12-30] MEDS: PRAVASTATIN 40 MG TAB PO SCH (21:28)
[2018-12-31] MEDS: methylPREDNISolone Sod Succinate 125 MG/2 ML INJ IV SCH (00:32)
[2018-12-31] MEDS: FUROSEMIDE 40 MG/4 ML INJ IV SCH ×2 (06:45→18:00)
[2018-12-31] MEDS ORDERED: REGADENOSON 0.4 MG/5 ML INJ IV ONE (07:22)
--- NOTE | 2018-12-31 08:00 | Progress Note ---
Assessment and Plan 78 y/o with known COPD and chronic respiratory failure admitted with worsening shortness of breath. 1. Start to wean steroids, will drop today as IMS did not see my note yesterday. 2. Follow up Cardiology recs (stress today) 3. Needs outpatient GEORGETTE screening 4. Continue pulmicort and scheduled nebs. Subjective Date of service: 12/31/18 Interval history: Patient did not wear bipap last night. stable on nasal cannula. Going for stress today. Objective Vital Signs - 12hr 12/30/18 12/30/18 12/30/18 20:00 20:31 20:33 Temperature Pulse Rate 88 Pulse Rate [ 85 Bilateral Throughout] Respiratory Rate Respiratory 18 Rate [Bilateral Throughout] Blood Pressure O2 Sat by Pulse 100 Oximetry 12/30/18 12/30/18 12/30/18 21:28 21:47 23:18 Temperature 98.1 F Pulse Rate 88 Pulse Rate [ Bilateral Throughout] Respiratory 20 18 Rate Respiratory Rate [Bilateral Throughout] Blood Pressure 175/77 162/84 O2 Sat by Pulse Oximetry 12/30/18 12/31/18 12/31/18 23:40 00:12 03:34 Temperature 98.5 F Pulse Rate 88 88 84 Pulse Rate [ Bilateral Throughout] Respiratory 18 18 Rate Respiratory Rate [Bilateral Throughout] Blood Pressure 172/86 O2 Sat by Pulse 93 93 99 Oximetry 12/31/18 12/31/18 04:00 07:41 Temperature 98.6 F Pulse Rate 87 91 H Pulse Rate [ Bilateral Throughout] Respiratory 18 Rate Respiratory Rate [Bilateral Throughout] Blood Pressure 194/108 O2 Sat by Pulse 100 Oximetry Constitutional: no acute distress, alert Eyes: non-icteric ENT: oropharynx moist Neck: supple Effort: normal Ascultation: Bilateral: wheezes, rales Percussion: Bilateral: not dull Tactile fremitus: Bilateral: normal Cardiovascular: regular rate and rhythm Gastrointestinal: normoactive bowel sounds, soft Neurologic: normal mental status CBC and BMP: 12/29/18 05:25 12/29/18 05:25 ABG, PT/INR, D-dimer: PT/INR, D-dimer PT 13.1 Sec. (12.2-14.9) 12/28/18 Unknown INR 1.00 (0.87-1.13) 12/28/18 Unknown Abnormal lab findings: Abnormal Labs 11/01/0512/28/18 12/28/18 20:53 Unknown Unknown MCH RDW 16.3 H Seg Neuts % (Manual) 93.0 H Lymphocytes % (Manual) 4.0 L Lymphocytes # (Manual) 0.3 L Potassium 5.4 H Carbon Dioxide 19 L BUN 41 H Creatinine 2.3 H Glucose 274 H Hemoglobin A1c AST ALT Troponin T 0.052 H NT-Pro-B Natriuret Pep Albumin Triglycerides Cholesterol LDL Cholesterol Direct HDL Cholesterol 12/28/18 12/29/18 12/29/18 Unknown 05:25 05:25 MCH 27 L RDW 16.0 H Seg Neuts % (Manual) 74.0 H Lymphocytes % (Manual) Lymphocytes # (Manual) Potassium Carbon Dioxide BUN Creatinine Glucose Hemoglobin A1c 6.6 H AST 54 H ALT 62 H Troponin T 0.047 H NT-Pro-B Natriuret Pep 63208 H Albumin 3.8 L Triglycerides 175 H Cholesterol 265 H LDL Cholesterol Direct 158 H HDL Cholesterol 98 H 12/29/18 05:25 MCH RDW Seg Neuts % (Manual) Lymphocytes % (Manual) Lymphocytes # (Manual) Potassium Carbon Dioxide BUN 44 H Creatinine 2.4 H Glucose Hemoglobin A1c AST 58 H ALT 82 H Troponin T NT-Pro-B Natriuret Pep Albumin Triglycerides Cholesterol LDL Cholesterol Direct HDL Cholesterol
[2018-12-31] MEDS ORDERED: methylPREDNISolone Sod Succinate 125 MG/2 ML INJ IV SCH (08:01)
--- NOTE | 2018-12-31 10:35 | Discharge Summary ---
Providers - Providers Date of Admission: 12/28/18 18:20 Attending physician: HANSEL MOLINA MD 12/28/18 22:09 Consult to Physician [CONS] Routine Comment: Consulting Provider: GLENN BURRELL Physician Instructions: Reason For Exam: CHF exacerbation 12/29/18 12:11 Consult to Physician [CONS] Routine Comment: Consulting Provider: JOHN DUDLEY Physician Instructions: Reason For Exam: copd [facility] care [facility]: [facility] Hospitalization Condition: Stable Hospital course: 78-year-old woman who presented to the hospital with shortness of breath COPD exacerbation Was medically treated and improved. Received pulmonology consult need op sleep study, suspect vicki Acute on chronic hypoxic respiratory failure She was treated with supplemental oxygen Acute on chronic systolic CHF, EF 45% Has mild pulmonary edema, judicious use of diuretics predischarge MPI was negative, cardiology input appreciated Chronic kidney disease stage III Creatinine is at baseline, nephrology consult appreciated, judicious use of diuretics DVT prophylaxis chemical Disposition: TO HOME OR SELFCARE Time spent for discharge: 33 mins Core Measure Documentation - Palliative Care Palliative Care/ Comfort Measures: Not Applicable - Core Measures Any of the following diagnoses?: none Exam - Physical Exam Narrative exam: General.: Appears well, no distress, nontoxic HEENT: Moist mucous membranes, extraocular muscles intact, no lymphadenopathy Neck: supple Cardiac: S1-S2 heard Lungs: decreased air entry. Abdomen: soft , nontender, nondistended, bowel sounds positive Extremities: no edema clubbing or cyanosis Skin: no rash or lesions Neurologic: no gross focal deficits Psych: calm, and cooperative - Constitutional Vitals: Temp Pulse Resp BP Pulse Ox 98.6 F 92 H 18 194/108 100 12/31/18 07:41 12/31/18 08:48 12/31/18 07:41 12/31/18 07:41 12/31/18 07:41 Plan Follow up with: JOHN DUDLEY MD [Staff Physician] - 7 Days KARTHIKEYAN RAMOS MD [Staff Physician] - 7 Days [place] FRANNIE HEBERT MD [Primary Care Provider] - 7 Days Prescriptions: Fluticasone/Vilanterol [Breo Ellipta 200-25 Mcg INH] 1 each IH BID #1 blst.w.dev Ipratropium/Albuterol Sulfate [Combivent Respimat] 1 puff IH BID #1 Prednisone [predniSONE 10 mg (6-Day Pack, 21 Tabs)] 10 mg PO .TAPER #1 tab.ds.pk ALBUTEROL NEB's [Proventil 0.083% NEBS] 2.5 mg IH Q4HRT PRN #60 nebu PRN Reason: Shortness Of Breath Tiotropium [place] [Spiriva Respimat] 4 gm IH DAILY #1 mist.inhal
[2018-12-31] MEDS: allopurinoL 100 MG TAB PO SCH (11:45)
[2018-12-31] MEDS: oxyCODONE /ACETAMINOPHEN 5-325MG TAB PO PRN (11:45)
[2018-12-31] MEDS: FAMOTIDINE 10 MG TAB PO SCH (11:46)
[2018-12-31] MEDS: SODIUM BICARBONATE 650 MG TAB PO SCH (11:46)
[2018-12-31] MEDS: METOPROLOL TARTRATE 50 MG TAB PO SCH (11:46)
[2018-12-31] MEDS: methylPREDNISolone Sod Succinate 40 MG/1 ML INJ IV SCH ×2 (11:46→16:34)
[2018-12-31] MEDS: amLODIPine 10 MG TAB PO SCH (11:46)
--- NOTE | 2018-12-31 12:41 | Treadmill Report ---
THALLIUM STRESS TEST LEFT VENTRICLE: Left ventricular chamber size is within normal spread. Perfusion study demonstrates a small to medium sized, fixed basal lateral wall defect. On the resting study, there is no significant reversibility. Gated analysis suggests mild left ventricular systolic dysfunction with ejection fraction 43%. 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 There is no reversible periinfarct ischemia noted on this study. There is mild residual left ventricular systolic dysfunction. Clinical correlation is recommended. JOB# [id number] CA/NTS
--- NOTE | 2018-12-31 13:19 | Event Note ---
Date: 12/31/18 Patient underwent a Lexiscan thallium stress test today, which shows a small to moderate size, fixed basal lateral wall defect. Defect is consistent with a prior infarct in this territory, but no clare-infarct ischemia is demonstrated. Left ventricular systolic ejection fraction was 43% by gated SPECT, and 45-50% by echocardiogram. In the absence of an ischemic defect, we'll recommend continued medical therapy and risk factor modification for underlying coronary artery disease. Patient is otherwise stable for cardiac discharge and outpatient follow-up in 7-10 days.
[2018-12-31] MEDS: BUDESONIDE 0.5 MG/2 ML NEBU IH SCH (14:46)
[2018-12-31] MEDS: IPRATROPIUM/ALBUTEROL SULFATE 3 ML AMPUL.NEB IH SCH ×2 (14:46→14:47)
[2018-12-31 15:38] VITALS: BP 161/74
[2018-12-31] MEDS: HEPARIN 5,000 UNIT/1 ML VIAL SUB-Q SCH (16:34)
[2018-12-31] MEDS: hydrALAZINE 100 MG TAB PO SCH ×2 (16:34→16:45)
[2018-12-31] MEDS: MONTELUKAST 10 MG TAB PO SCH (18:02)
== END 2018-12-31 18:27 | disposition home or self-care (01) | DRG 291 ==
LOC: ED 15:55 → 4A 18:20
PROVIDERS: ADMIT Internal Medicine; ATTEND Internal Medicine
PROC: 5A09357 Assistance with Respiratory Ventilation, Less than 24 Consecutive Hours, Continuous Positive Airway Pressure (ICD-10-PCS; principal; 2018-12-28)
PROC: 5A09357 Assistance with Respiratory Ventilation, Less than 24 Consecutive Hours, Continuous Positive Airway Pressure (ICD-10-PCS; 2018-12-29)
DX: I13.0 Hypertensive heart and chronic kidney disease with heart failure and stage 1 through stage 4 chronic kidney disease, or unspecified chronic kidney disease (principal); I50.43 Acute on chronic combined systolic (congestive) and diastolic (congestive) heart failure; J96.21 Acute and chronic respiratory failure with hypoxia; J44.1 Chronic obstructive pulmonary disease with (acute) exacerbation; I16.1 Hypertensive emergency; I42.9 Cardiomyopathy, unspecified; E87.5 Hyperkalemia; E78.2 Mixed hyperlipidemia; N18.3 Chronic kidney disease, stage 3 (moderate); E11.22 Type 2 diabetes mellitus with diabetic chronic kidney disease; Z79.51 Long term (current) use of inhaled steroids; Z79.899 Other long term (current) drug therapy; Z91.040 Latex allergy status; Z91.011 Allergy to milk products; I25.2 Old myocardial infarction; Z87.442 Personal history of urinary calculi; Z87.891 Personal history of nicotine dependence; Z95.1 Presence of aortocoronary bypass graft; Z99.81 Dependence on supplemental oxygen; Z82.49 Family history of ischemic heart disease and other diseases of the circulatory system; Z79.84 Long term (current) use of oral hypoglycemic drugs
CPT/HCPCS: 36415; 71045; 78452; 80048; 80053; 80061; 80076; 82962; 83036; 83880; 84484; 85007; 85025; 85610; 85730; 93005; 93010; 93017; 93306; 94640; 94644; 94660; 94760; 96360; G0378; A9270-GY; A9502; J0360; J1170; J1644; J1940; J2405; J2785; J2920; J2930

== ENCOUNTER 2019-04-30 09:45 | Inpatient (IN) | payer MEDICARE ==
[2019-04-30] MEDS ORDERED: ALBUTEROL 2.5 MG/3 ML NEBU IH ONE ×2 (09:48→09:58)
[2019-04-30] MEDS ORDERED: IPRATROPIUM 0.02% NEBU 2.5 ML IH ONE ×2 (09:48→09:59)
[2019-04-30] MEDS ORDERED: MAGNESIUM SULFATE 2 GM/50 ML BAG IV ONE (09:55)
[2019-04-30] MEDS ORDERED: NITROGLYCERIN 2% OINT 1 GM TP ONE (09:59)
--- NOTE | 2019-04-30 10:00 | Emergency Department Report ---
ED Shortness of Breath HPI - General Chief Complaint: Dyspnea/Respdistress Stated Complaint: CHEST PAIN/CRUZITO Time Seen by Provider: 04/30/19 09:54 Source: EMS Mode of arrival: Ambulatory Limitations: No Limitations - History of Present Illness Initial Comments: Patient is a 78 yo AA woman with a history of [place], Diastolic CHF, CAD S/P CABG, DM, Asthma, OA, Anxiety disorder, Chronic Respiratory Failure on 2-3 L Home oxygen due to end stage COPD and ESRD on HD(M,W,F) who presented to [facility] ED with SOB and wheezing for the last 2 days. No improvement with home breathing treatments. Patient was found tachypneic in mild respiratory distress upon their arrival to the house. Patient received albuterol 7.5 mg, started initiation of mag 1 g, Decadron 20 mg IV, and required CPAP and additional oxygen support during transport to the hospital. Patient states she has a history of one intubation. The last 3 days she has been short of breath with wheezing and cough productive of yellow sputum. She is compliant with dialysis and is due today. Patient has very little urine output daily. Patient did complain of chest pain prior to arrival which has improved with CPAP support. - Related Data Home Medications Medication Instructions Recorded Confirmed Last Taken Famotidine [Pepcid] 20 mg PO BID 06/17/18 04/12/19 04/11/19 Previous Rx's Medication Instructions Recorded Last Taken Type Metoprolol [Lopressor TAB] 50 mg PO BID #60 tablet 01/27/18 04/11/19 Rx Montelukast [Singulair] 10 mg PO QPM #30 tablet 01/27/18 04/11/19 Rx Pravastatin [Pravachol] 40 mg PO QHS #30 tablet 01/27/18 04/11/19 Rx allopurinoL [Zyloprim] 100 mg PO QDAY #30 tablet 01/27/18 04/11/19 Rx Fluticasone/Vilanterol [Breo 1 each IH BID #1 blst.w.dev 12/31/18 04/11/19 Rx Ellipta 200-25 Mcg INH] Tiotropium [place] [Spiriva 4 gm IH DAILY #1 mist.inhal 12/31/18 04/11/19 Rx Respimat] Aspirin EC [Halfprin EC] 81 mg PO QDAY #30 tablet. 02/18/19 04/11/19 Rx ISOSORBIDE MONOnitrate [Imdur ER] 30 mg PO QDAY #30 tablet 02/18/19 Unknown Rx glipiZIDE [Glucotrol] 5 mg PO QDAY #30 tablet 02/18/19 Unknown Rx ALBUTEROL NEB's [Proventil 0.083% 2.5 mg IH Q4HRT PRN #30 nebu 04/15/19 Unknown Rx NEBS] Furosemide [Lasix] 20 mg PO QDAY #30 tablet 04/15/19 Unknown Rx Ipratropium/Albuterol Sulfate 2 puff IH BID #1 unit 04/15/19 Unknown Rx [Combivent Respimat] Olanzapine/Fluoxetine HCl [Symbyax 1 each PO QHS #30 capsule 04/15/19 Unknown Rx 3-25 mg] Sodium Bicarbonate 650 mg PO BID #60 tablet 04/15/19 Unknown Rx amLODIPine 10 mg PO DAILY #30 tablet 04/15/19 Unknown Rx cefUROXime [Ceftin] 250 mg PO Q12H #14 tablet 04/15/19 Unknown Rx predniSONE [Deltasone] 1 tab PO QDAY #91 tab 04/15/19 Unknown Rx traMADoL [Ultram 50 MG tab] 50 mg PO Q8H PRN #15 tab 04/15/19 04/11/19 Rx Allergies Allergy/AdvReac Type Severity Reaction Status Date / Time latex Allergy Hives Verified 02/05/19 13:51 milk Allergy Rash Verified 02/05/19 13:51 ED Review of Systems ROS: Stated complaint: CHEST PAIN/CRUZITO Other details as noted in HPI Comment: All other systems reviewed and negative ED Past Medical Hx - Past Medical History Previous Medical History?: Yes Hx Hypertension: Yes (usu high per pt.) Hx Heart Attack/AMI: Yes Hx Congestive Heart Failure: Yes Hx Diabetes: Yes Hx Deep Vein Thrombosis: No Hx Renal Disease: Yes (right VAS cath, M, W, F) Hx Arthritis: Yes Hx Kidney Stones: Yes Hx Asthma: Yes Hx COPD: Yes (2L at home) Hx HIV: No Additional medical history: facial tic - Surgical History Past Surgical History?: Yes Hx Open Heart Surgery: Yes Hx Pacemaker: No Hx Internal Defibrillator: No Additional Surgical History: right knee surgery, right/left foot surgery, left hip surgery - Social History Smoking Status: Former Smoker - Medications Home Medications: Home Medications Medication Instructions Recorded Confirmed Last Taken Type Metoprolol [Lopressor TAB] 50 mg PO BID #60 tablet 01/27/18 04/12/19 04/11/19 Rx Montelukast [Singulair] 10 mg PO QPM #30 tablet 01/27/18 04/12/19 04/11/19 Rx Pravastatin [Pravachol] 40 mg PO QHS #30 tablet 01/27/18 04/12/19 04/11/19 Rx allopurinoL [Zyloprim] 100 mg PO QDAY #30 tablet 01/27/18 04/12/19 04/11/19 Rx Famotidine [Pepcid] 20 mg PO BID 06/17/18 04/12/19 04/11/19 History Fluticasone/Vilanterol [Breo 1 each IH BID #1 blst.w.dev 12/31/18 04/12/19 04/11/19 Rx Ellipta 200-25 Mcg INH] Tiotropium [place] [Spiriva 4 gm IH DAILY #1 mist.inhal 12/31/18 04/12/19 04/11/19 Rx Respimat] Aspirin EC [Halfprin EC] 81 mg PO QDAY #30 tablet. 02/18/19 04/12/19 04/11/19 Rx ISOSORBIDE MONOnitrate [Imdur ER] 30 mg PO QDAY #30 tablet 02/18/19 04/13/19 Unknown Rx glipiZIDE [Glucotrol] 5 mg PO QDAY #30 tablet 02/18/19 04/13/19 Unknown Rx ALBUTEROL NEB's [Proventil 0.083% 2.5 mg IH Q4HRT PRN #30 nebu 04/15/19 Unknown Rx NEBS] Furosemide [Lasix] 20 mg PO QDAY #30 tablet 04/15/19 Unknown Rx Ipratropium/Albuterol Sulfate 2 puff IH BID #1 unit 04/15/19 Unknown Rx [Combivent Respimat] Olanzapine/Fluoxetine HCl [Symbyax 1 each PO QHS #30 capsule 04/15/19 Unknown Rx 3-25 mg] Sodium Bicarbonate 650 mg PO BID #60 tablet 04/15/19 Unknown Rx amLODIPine 10 mg PO DAILY #30 tablet 04/15/19 Unknown Rx cefUROXime [Ceftin] 250 mg PO Q12H #14 tablet 04/15/19 Unknown Rx predniSONE [Deltasone] 1 tab PO QDAY #91 tab 04/15/19 Unknown Rx traMADoL [Ultram 50 MG tab] 50 mg PO Q8H PRN #15 tab 04/15/19 04/12/19 04/11/19 Rx ED Physical Exam - General Limitations: No Limitations - Other Other exam information: General: Moderate respiratory distress Head: Atraumatic Eyes: normal appearance ENT: Moist mucous membranes Neck: Normal appearance, no midline tenderness Chest: Bilateral wheezing, fair air movement, tachypnea, accessory muscle use, breathlessness with speaking CV: R tachycardic regular rhythm Abdomen: Soft, normal bowel sounds, nontender, nondistended, no rebound or guarding Back: Normal inspection Extremity: Normal inspection, full range of motion, no leg edema or calf tenderness Neuro: Alert O x 3, no facial asymmetry, speech clear, no gross motor sensory deficit Psych: Appropriate behavior Skin: No rash ED Course Vital Signs 04/30/19 04/30/19 04/30/19 09:42 09:45 09:46 Temperature Pulse Rate 102 H 98 H 96 H Pulse Rate [ Bilateral] Respiratory 44 H 34 H 34 H Rate Respiratory Rate [Bilateral ] Blood Pressure 197/108 Blood Pressure [Left] O2 Sat by Pulse 99 100 Oximetry 04/30/19 04/30/19 04/30/19 09:47 09:51 10:01 Temperature Pulse Rate 100 H 98 H Pulse Rate [ Bilateral] Respiratory 30 H 30 H 28 H Rate Respiratory Rate [Bilateral ] Blood Pressure 184/117 Blood Pressure 197/108 [Left] O2 Sat by Pulse 100 100 100 Oximetry 04/30/19 04/30/19 04/30/19 10:06 10:15 10:29 Temperature Pulse Rate 95 H 95 H Pulse Rate [ 96 H Bilateral] Respiratory 28 H Rate Respiratory 20 Rate [Bilateral ] Blood Pressure 175/104 175/104 Blood Pressure [Left] O2 Sat by Pulse 100 Oximetry 04/30/19 04/30/19 04/30/19 10:30 10:45 11:01 Temperature Pulse Rate 99 H 101 H 99 H Pulse Rate [ Bilateral] Respiratory 23 18 22 Rate Respiratory Rate [Bilateral ] Blood Pressure 172/104 172/104 162/109 Blood Pressure [Left] O2 Sat by Pulse 100 100 100 Oximetry 04/30/19 04/30/19 04/30/19 11:15 11:31 11:45 Temperature Pulse Rate 101 H 105 H 100 H Pulse Rate [ Bilateral] Respiratory 38 H 21 28 H Rate Respiratory Rate [Bilateral ] Blood Pressure 170/108 190/106 173/109 Blood Pressure [Left] O2 Sat by Pulse 100 100 Oximetry 04/30/19 04/30/19 04/30/19 12:01 12:15 12:30 Temperature Pulse Rate 97 H 98 H 94 H Pulse Rate [ Bilateral] Respiratory 17 35 H 20 Rate Respiratory Rate [Bilateral ] Blood Pressure 178/113 208/105 213/120 Blood Pressure [Left] O2 Sat by Pulse 100 100 99 Oximetry 04/30/19 04/30/19 04/30/19 12:45 13:01 13:15 Temperature Pulse Rate 96 H 104 H Pulse Rate [ Bilateral] Respiratory 23 19 16 Rate Respiratory Rate [Bilateral ] Blood Pressure 205/114 176/116 183/89 Blood Pressure [Left] O2 Sat by Pulse 99 99 100 Oximetry 04/30/19 04/30/19 04/30/19 13:24 13:30 13:45 Temperature 97.7 F Pulse Rate 100 H 100 H Pulse Rate [ Bilateral] Respiratory 22 27 H Rate Respiratory Rate [Bilateral ] Blood Pressure 192/121 182/112 Blood Pressure [Left] O2 Sat by Pulse 100 100 Oximetry 04/30/19 04/30/19 04/30/19 13:55 14:10 14:15 Temperature 97.7 F Pulse Rate 100 H 67 82 Pulse Rate [ Bilateral] Respiratory 27 H Rate Respiratory Rate [Bilateral ] Blood Pressure 210/108 192/78 168/114 Blood Pressure [Left] O2 Sat by Pulse Oximetry 04/30/19 04/30/19 04/30/19 14:30 14:45 15:00 Temperature Pulse Rate 81 60 75 Pulse Rate [ Bilateral] Respiratory Rate Respiratory Rate [Bilateral ] Blood Pressure 165/105 160/80 172/111 Blood Pressure [Left] O2 Sat by Pulse Oximetry 04/30/19 04/30/19 04/30/19 15:15 15:30 15:45 Temperature Pulse Rate 74 63 62 Pulse Rate [ Bilateral] Respiratory Rate Respiratory Rate [Bilateral ] Blood Pressure 192/101 192/94 204/107 Blood Pressure [Left] O2 Sat by Pulse Oximetry 04/30/19 16:00 Temperature Pulse Rate 79 Pulse Rate [ Bilateral] Respiratory Rate Respiratory Rate [Bilateral ] Blood Pressure 177/115 Blood Pressure [Left] O2 Sat by Pulse Oximetry - Consultations Consultation #1: 04/30/19 13:[address] Markham title i math tutor who will manage dialysis. At this time labs are still pending (delayed) 04/30/19 13:12 dialysis called and they will collect remaining labs in dialysis ED Medical Decision Making - Lab Data Result diagrams: 04/30/19 11:32 04/30/19 14:20 Lab Results 04/30/19 04/30/19 04/30/19 Range/Units 10:12 11:32 11:32 WBC 7.4 (4.5-11.0) K/mm3 RBC 4.38 (3.65-5.03) M/mm3 Hgb 13.0 (10.1-14.3) gm/dl Hct 41.1 (30.3-42.9) % MCV 94 (79-97) fl MCH 30 (28-32) pg MCHC 32 (30-34) % RDW 17.1 H (13.2-15.2) % Plt Count 84 L (140-440) K/mm3 Lymph % (Auto) 10.9 L (13.4-35.0) % [place] % (Auto) 7.4 H (0.0-7.3) % Eos % (Auto) 0.4 (0.0-4.3) % Baso % (Auto) 0.7 (0.0-1.8) % Lymph # 0.8 L (1.2-5.4) K/mm3 [place] # 0.5 (0.0-0.8) K/mm3 Eos # 0.0 (0.0-0.4) K/mm3 Baso # 0.1 (0.0-0.1) K/mm3 Seg Neutrophils % 80.6 H (40.0-70.0) % Seg Neutrophils # 6.0 (1.8-7.7) K/mm3 PT 28.3 H (12.2-14.9) Sec. INR 2.59 H (0.87-1.13) APTT 32.6 (24.2-36.6) Sec. ABG pH 7.347 L (7.350-7.450) pH Units ABG pCO2 43.9 mm Hg ABG pO2 221.9 H (80.0-90.0) mm Hg ABG HCO3 23.5 (20.0-26.0) mmol/L ABG O2 Saturation 99.3 H (95.0-99.0) % ABG O2 Content 17.5 (0.0-44) ABG Base Excess -2.2 L (-2.0-3.0) mmol/L ABG Hemoglobin 12.4 (12.0-16.0) gm/dl ABG Carboxyhemoglobin 1.6 (0.0-5.0) % ABG Methemoglobin 0.7 (0.0-1.5) % Oxyhemoglobin 97.1 (95.0-99.0) % FiO2 30 % - EKG Data -: EKG Interpreted by [place] EKG shows normal: sinus rhythm, ST-T waves (lat wave inver, lvh) Rate: normal (99) - EKG Data When compared to previous EKG there are: no significant change - Radiology Data Radiology results: report reviewed CHEST 1 VIEW 04/30/2019 9:37 AM INDICATION / CLINICAL INFORMATION: Dyspnea. COMPARISON: 2 views of the chest from 04/15/2019. FINDINGS: SUPPORT DEVICES: Stable right internal jugular vein PermCath. HEART / MEDIASTINUM: Stable. LUNGS / PLEURA: Generalized bilateral interstitial opacities are seen with a bibasilar predominance. No significant pleural effusion. No pneumothorax. ADDITIONAL FINDINGS: No significant additional findings. IMPRESSION: Probable interstitial edema. - Medical Decision Making There was a delay in obtaining labs because patient was a difficult IV access patient. IV team place IV and collected labs. For some reason only CBC was collected and other labs are pending. I discussed case with title i math tutor as patient is due for dialysis today. The plan is to collect the remaining labs during dialysis. Patient also noted to have elevated INR but states she is taking aspirin and initially denied blood thinner use. Her current medication list is not available for review therefore PT/INR repeat order has been placed. Patient does not complain of chest pain currently does not have any acute EKG findings or signs of ischemia. Troponin level is pending at disposition. Patient is afebrile without pulmonary infiltrate or leukocytosis. Nitroglycerin paste placed in the ED for hypertension and mild CHF ABG does not reveal significant respiratory acidosis. Respiratory therapist discontinued BiPAP for a trial and continued nebs. Pt did not do well off bipap and it was restarted - Differential Diagnosis CHF, pneumonia, bronchitis, COPD Critical Care Time: No Critical care attestation.: If time is entered above; I have spent that time in minutes in the direct care of this critically ill patient, excluding procedure time. ED Disposition Clinical Impression: COPD exacerbation, Mild congestive heart failure, ESRD needing dialysis, O2 dependent Disposition: OP ADMIT IP TO THIS HOSP Is pt being admited?: Yes Condition: Stable Time of Disposition: 13:15 (Dr garcia/hosp)
[2019-04-30 10:41] LABS: ABG Base Excess -2.2 mmol/L (-2.0-3.0); ABG HCO3 23.5 mmol/L (20.0-26.0); ABG Methemoglobin 0.7 % (0.0-1.5); ABG Oxygen Saturation 99.3 % (95.0-99.0); ABG PCO2 43.9 mm Hg; ABG PH 7.347 pH Units (7.350-7.450); ABG PO2 221.9 mm Hg (80.0-90.0)
--- NOTE | 2019-04-30 10:43 | XRay Report ---
CHEST 1 VIEW 04/30/2019 9:37 AM INDICATION / CLINICAL INFORMATION: Dyspnea. COMPARISON: 2 views of the chest from 04/15/2019. FINDINGS: SUPPORT DEVICES: Stable right internal jugular vein PermCath. HEART / MEDIASTINUM: Stable. LUNGS / PLEURA: Generalized bilateral interstitial opacities are seen with a bibasilar predominance. No significant pleural effusion. No pneumothorax. ADDITIONAL FINDINGS: No significant additional findings. IMPRESSION: Probable interstitial edema. Signer Name: Geo Rasmussen MD Signed: 04/30/2019 10:39 AM Workstation Name: [id number]
[2019-04-30 11:49] LABS: Basophils # (Auto) 0.1 K/mm3 (0.0-0.1); Basophils % (Auto) 0.7 % (0.0-1.8); Eosinophils % (Auto) 0.4 % (0.0-4.3); Hematocrit 41.1 % (30.3-42.9); Lymphocytes # (Auto) 0.8 K/mm3 (1.2-5.4); Lymphocytes % (Auto) 10.9 % (13.4-35.0); Mean Corpuscular HGB Conc 32 % (30-34); Mean Corpuscular Volume 94 fl (79-97); Monocytes # (Auto) 0.5 K/mm3 (0.0-0.8); Monocytes % (Auto) 7.4 % (0.0-7.3); Red Blood Count 4.38 M/mm3 (3.65-5.03); Red Cell Distribution Width 17.1 % (13.2-15.2)
[2019-04-30 11:54] LABS: Platelet Count 84 K/mm3 (140-440)
[2019-04-30 11:58] LABS: INR 2.59 (0.87-1.13)
[2019-04-30 11:59] LABS: Partial Thromboplastin Time 32.6 Sec. (24.2-36.6)
[2019-04-30] MEDS ORDERED: SODIUM CHLORIDE 0.9% 100 ML IV PRN (13:29)
[2019-04-30 15:16] LABS: Hepatitis B Surface Antigen Non-Reactive (Negative); Hepatitis C Virus Antibody Non-Reactive (NonReactive)
[2019-04-30 15:30] LABS: Albumin 4.1 g/dL (3.9-5); Calcium 9.3 mg/dL (8.4-10.2)
--- NOTE | 2019-04-30 15:47 | Consultation ---
History of Present Illness - Reason for Consult Consult date: 04/30/19 end stage renal disease Requesting physician: TAMMY QUINONEZ - History of Present Illness Patient is a 78 yo AA woman with a history of [place], Diastolic CHF, CAD S/P CABG, DM, Asthma, OA, Anxiety disorder, Chronic Respiratory Failure on 2-3 L Home oxygen due to end stage COPD and ESRD on HD(M,W,F) who presented to [facility] ED with SOB and wheezing for the last 2 days. No improvement with home breathing treatments. Patient was found tachypneic in mild respiratory distress upon their arrival to the house. Patient received albuterol 7.5 mg, started initiation of mag 1 g, Decadron 20 mg IV, and required CPAP and additional oxygen support during transport to the hospital. Patient states she has a h istory of one intubation. The last 3 days she has been short of breath with wheezing and cough productive of yellow sputum. She is compliant with dialysis and is due today. Patient has very little urine output daily. Patient did complain of chest pain prior to arrival which has improved with CPAP support. Patient is seen in the dialysis room. Currently she is on a BiPAP mask. Difficult to obtain much history from her. Information obtained from patient's current chart Past History Past Medical History: CAD, COPD, diabetes, dialysis, hypertension Past Surgical History: Other (History of coronary artery bypass surgery and also PermCath placement) Social history: no significant social history Family history: no significant family history Medications and Allergies Allergies Allergy/AdvReac Type Severity Reaction Status Date / Time latex Allergy Hives Verified 02/05/19 13:51 milk Allergy Rash Verified 02/05/19 13:51 Home Medications Medication Instructions Recorded Confirmed Last Taken Type Metoprolol [Lopressor TAB] 50 mg PO BID #60 tablet 01/27/18 04/12/19 04/11/19 Rx Montelukast [Singulair] 10 mg PO QPM #30 tablet 01/27/18 04/12/19 04/11/19 Rx Pravastatin [Pravachol] 40 mg PO QHS #30 tablet 01/27/18 04/12/19 04/11/19 Rx allopurinoL [Zyloprim] 100 mg PO QDAY #30 tablet 01/27/18 04/12/19 04/11/19 Rx Famotidine [Pepcid] 20 mg PO BID 06/17/18 04/12/19 04/11/19 History Fluticasone/Vilanterol [Breo 1 each IH BID #1 blst.w.dev 12/31/18 04/12/19 04/11/19 Rx Ellipta 200-25 Mcg INH] Tiotropium [place] [Spiriva 4 gm IH DAILY #1 mist.inhal 12/31/18 04/12/19 04/11/19 Rx Respimat] Aspirin EC [Halfprin EC] 81 mg PO QDAY #30 tablet.dr 02/18/19 04/12/19 04/11/19 Rx ISOSORBIDE MONOnitrate [Imdur ER] 30 mg PO QDAY #30 tablet 02/18/19 04/13/19 Unknown Rx glipiZIDE [Glucotrol] 5 mg PO QDAY #30 tablet 02/18/19 04/13/19 Unknown Rx ALBUTEROL NEB's [Proventil 0.083% 2.5 mg IH Q4HRT PRN #30 nebu 04/15/19 Unknown Rx NEBS] Furosemide [Lasix] 20 mg PO QDAY #30 tablet 04/15/19 Unknown Rx Ipratropium/Albuterol Sulfate 2 puff IH BID #1 unit 04/15/19 Unknown Rx [Combivent Respimat] Olanzapine/Fluoxetine HCl [Symbyax 1 each PO QHS #30 capsule 04/15/19 Unknown Rx 3-25 mg] Sodium Bicarbonate 650 mg PO BID #60 tablet 04/15/19 Unknown Rx amLODIPine 10 mg PO DAILY #30 tablet 04/15/19 Unknown Rx cefUROXime [Ceftin] 250 mg PO Q12H #14 tablet 04/15/19 Unknown Rx predniSONE [Deltasone] 1 tab PO QDAY #91 tab 04/15/19 Unknown Rx traMADoL [Ultram 50 MG tab] 50 mg PO Q8H PRN #15 tab 04/15/19 04/12/19 04/11/19 Rx Active Meds: Active Medications Sodium Chloride (Nacl 0.9%) 100 mls @ 999 mls/hr IV ALBINO PRN PRN Reason: Hypotension Review of Systems All systems: negative (As noted above) Exam - Vital Signs Vital signs: Vital Signs Pulse Resp 102 H 44 H 04/30/19 09:42 04/30/19 09:42 - General Appearance General appearance: well-developed, well-nourished, appears stated age, other (Patient is currently on a BiPAP mask) EENT: PERRL, mucous membranes moist Neck: Present: neck supple, trachea midline. Absent: JVD/HJR, Masses Respiratory: Wheezes (Bilateral wheezing) Heart: regular, normal heart rate, S1S2, no murmurs Gastrointestinal: Present: normal, normoactive bowel sounds Integumentary: other (No edema) Results - Lab Results 04/30/19 11:32 04/30/19 14:20 Most recent lab results ABG pH 7.347 pH Units (7.350-7.450) L 04/30/19 10:12 ABG pCO2 43.9 mm Hg 04/30/19 10:12 ABG pO2 221.9 mm Hg (80.0-90.0) H 04/30/19 10:12 ABG HCO3 23.5 mmol/L (20.0-26.0) 04/30/19 10:12 ABG O2 Saturation 99.3 % (95.0-99.0) H 04/30/19 10:12 Calcium 9.3 mg/dL (8.4-10.2) 04/30/19 14:20 Assessment and Plan Impression * End-stage renal disease on maintenance hemodialysis * Respiratory failure secondary to COPD exacerbation * Coronary artery disease status post bypass surgery * Hypertension * Diabetes Recommendations * Patient is currently undergoing hemodialysis * Remove fluid as tolerated. * Respiratory failure seems to be more from her COPD exacerbation then volume overload. She is already starting to cramp and ultrafiltration has been re duced * Adjust diet and meds for ESRD state * Avoid nephrotoxins * Monitor fluid status and electrolytes closely * Thank you very much for the consultation. Shall follow along with you
[2019-04-30 16:00] LABS: Chol/HDL Ratio 2.88 %
[2019-04-30 16:29] LABS: INR 1.1 (0.87-1.13)
[2019-04-30 16:30] LABS: Partial Thromboplastin Time 37.2 Sec. (24.2-36.6)
[2019-04-30] MEDS ORDERED: hydrALAZINE 20 MG/1 ML INJ IV ONE (17:00)
[2019-04-30] MEDS ORDERED: LORazepam 2 MG/ML VIAL IV ONE (17:30)
[2019-04-30] MEDS ORDERED: traMADol 50 MG TAB PO PRN (17:37)
[2019-04-30] MEDS ORDERED: HYDROmorphone 1 MG/1 ML INJ IV PRN (17:44)
[2019-04-30] MEDS ORDERED: ONDANSETRON 4 MG/2 ML INJ IV PRN (17:44)
[2019-04-30] MEDS ORDERED: oxyCODONE /ACETAMINOPHEN 5-325MG TAB PO PRN (17:44)
[2019-04-30] MEDS ORDERED: ACETAMINOPHEN 325 MG TAB PO PRN (17:44)
[2019-04-30] MEDS ORDERED: METOCLOPRAMIDE 10 MG/2 ML INJ IV PRN (17:44)
[2019-04-30] MEDS ORDERED: predniSONE 10 MG TAB PO SCH (18:00)
[2019-04-30] MEDS ORDERED: FUROSEMIDE 20 MG TAB PO SCH (18:00)
[2019-04-30 18:10] LABS: ABG Base Excess 0.3 mmol/L (-2.0-3.0); ABG HCO3 25.4 mmol/L (20.0-26.0); ABG Methemoglobin 0.6 % (0.0-1.5); ABG Oxygen Saturation 96.5 % (95.0-99.0); ABG PCO2 42.7 mm Hg; ABG PH 7.392 pH Units (7.350-7.450); ABG PO2 79.2 mm Hg (80.0-90.0)
[2019-04-30] MEDS: LORazepam 2 MG/ML VIAL IV PRN ×2 (18:14→21:40)
[2019-04-30] MEDS ORDERED: IPRATROPIUM/ALBUTEROL SULFATE 3 ML AMPUL.NEB IH PRN (18:25)
[2019-04-30] MEDS ORDERED: fentaNYL 100 MCG/2 ML INJ IV ONE (18:30)
[2019-04-30] MEDS ORDERED: HALOPERIDOL LACTATE 5 MG/1 ML INJ IV ONE (19:00)
[2019-04-30] MEDS: VALSARTAN 160MG TAB PO SCH (20:25)
[2019-04-30] MEDS: FAMOTIDINE 10 MG TAB PO SCH (20:25)
[2019-04-30] MEDS: METOPROLOL TARTRATE 50 MG TAB PO SCH (20:25)
[2019-04-30] MEDS: MONTELUKAST 10 MG TAB PO SCH (20:25)
[2019-04-30] MEDS: methylPREDNISolone Sod Succinate 125 MG/2 ML INJ IV SCH (20:37)
[2019-04-30] MEDS: allopurinoL 100 MG TAB PO SCH (20:41)
[2019-04-30] MEDS: ASPIRIN EC 81 MG TAB PO SCH (20:41)
[2019-04-30] MEDS: amLODIPine 10 MG TAB PO SCH (20:41)
[2019-04-30] MEDS: IPRATROPIUM/ALBUTEROL SULFATE 3 ML AMPUL.NEB IH SCH (21:41)
[2019-04-30] MEDS ORDERED: FAMOTIDINE 20 MG TAB PO SCH (22:00)
[2019-04-30] MEDS ORDERED: OLANZAPINE PO SCH (22:00)
[2019-04-30] MEDS ORDERED: NON-FORMULARY EACH (Fluticasone/Vilanterol [Breo Ellipta 200-25 Mcg Inh] 1 EACH) IH SCH (22:00)
[2019-04-30] MEDS ORDERED: FLUOXETINE HCL PO SCH (22:00)
[2019-04-30] MEDS: PRAVASTATIN 40 MG TAB PO SCH (22:24)
[2019-04-30] MEDS: SODIUM BICARBONATE 650 MG TAB PO SCH (22:25)
[2019-04-30 22:30] LABS: ABG Base Excess -0.7 mmol/L (-2.0-3.0); ABG HCO3 25.3 mmol/L (20.0-26.0); ABG Methemoglobin 0.7 % (0.0-1.5); ABG Oxygen Saturation 97.3 % (95.0-99.0); ABG PCO2 46.8 mm Hg; ABG PH 7.351 pH Units (7.350-7.450); ABG PO2 98.3 mm Hg (80.0-90.0)
[2019-04-30] MEDS ORDERED: HALOPERIDOL LACTATE 5 MG/1 ML INJ IV STA (22:34)
[2019-04-30] MEDS ORDERED: fentaNYL 100 MCG/2 ML INJ IV STA (22:34)
[2019-05-01] MEDS: methylPREDNISolone Sod Succinate 125 MG/2 ML INJ IV SCH ×3 (03:40→21:46)
[2019-05-01] MEDS: LORazepam 2 MG/ML VIAL IV PRN ×3 (03:54→11:36)
[2019-05-01] MEDS: ALBUTEROL 2.5 MG/3 ML NEBU IH PRN (04:13)
--- NOTE | 2019-05-01 07:17 | History and Physical Report ---
History of Present Illness Date of examination: 04/30/19 Date of admission: 04/30/19 13:20 Chief complaint: SOB and Wheezing for 3 days-not responding to out patient treatment History of present illness: 78 yo AA woman with a history of TX, Diastolic CHF, CAD S/P CABG, DM, Asthma, OA, Anxiety disorder, Chronic Respiratory Failure on 2-3 L Home oxygen due to end stage COPD and ESRD on HD(M,W,F) who presented to [facility] ED with SOB and wheezing for the last 2 days. No improvement with home breathing treatments. Patient was found tachypneic and respiratory distress upon their arrival to the house. Patient received albuterol 7.5 mg, started initiation of mag 1 g, Decadron 20 mg IV, and required CPAP and additional oxygen support during transport to the hospital. Patient states she has a history of one intubation. The last 3 days she has been short of breath with wheezing and cough productive of yellow sputum. She is compliant with dialysis and is due today. Patient has very little urine output daily. Patient did complain of chest pain prior to arrival which has improved with CPAP support. Patient very SOB and wheezing during my exam.Patient has not been exposed to anyone with fever and Dry cough.No recent travewl.No exposure to foreign traveled patients. No fever or chills or Body aches Past Medical History Previous Medical History?: Yes Hypertension: Yes (usu high per pt.) Heart Attack/AMI: Yes Congestive Heart Failure: Yes Diabetes: Yes Renal Disease: Yes (right VAS cath, M, W, F) Arthritis: Yes Kidney Stones: Yes Asthma: Yes COPD: Yes (2L at home) Additional medical history: facial tic Surgical History Past Surgical History?: Yes Open Heart Surgery: Yes Additional Surgical History: right knee surgery, right/left foot surgery, left hip surgery Social History Smoking Status: Former Smoker Family history Htn - Medications Home Medications: Home Medications Medication Instructions Recorded Confirmed Last Taken Type Metoprolol [Lopressor TAB] 50 mg PO BID #60 tablet 01/27/18 04/12/19 04/11/19 Rx Montelukast [Singulair] 10 mg PO QPM #30 tablet 01/27/18 04/12/19 04/11/19 Rx Pravastatin [Pravachol] 40 mg PO QHS #30 tablet 01/27/18 04/12/19 04/11/19 Rx allopurinoL [Zyloprim] 100 mg PO QDAY #30 tablet 01/27/18 04/12/19 04/11/19 Rx Famotidine [Pepcid] 20 mg PO BID 06/17/18 04/12/19 04/11/19 History Fluticasone/Vilanterol [Breo 1 each IH BID #1 blst.w.dev 12/31/18 04/12/19 04/11/19 Rx Ellipta 200-25 Mcg INH] Tiotropium Scio [Spiriva 4 gm IH DAILY #1 mist.inhal 12/31/18 04/12/19 04/11/19 Rx Respimat] Aspirin EC [Halfprin EC] 81 mg PO QDAY #30 tablet. 02/18/19 04/12/19 04/11/19 Rx ISOSORBIDE MONOnitrate [Imdur ER] 30 mg PO QDAY #30 tablet 02/18/19 04/13/19 Unknown Rx glipiZIDE [Glucotrol] 5 mg PO QDAY #30 tablet 02/18/19 04/13/19 Unknown Rx ALBUTEROL NEB's [Proventil 0.083% 2.5 mg IH Q4HRT PRN #30 nebu 04/15/19 Unknown Rx NEBS] Furosemide [Lasix] 20 mg PO QDAY #30 tablet 04/15/19 Unknown Rx Ipratropium/Albuterol Sulfate 2 puff IH BID #1 unit 04/15/19 Unknown Rx [Combivent Respimat] Olanzapine/Fluoxetine HCl [Symbyax 1 each PO QHS #30 capsule 04/15/19 Unknown R x 3-25 mg] Sodium Bicarbonate 650 mg PO BID #60 tablet 04/15/19 Unknown Rx amLODIPine 10 mg PO DAILY #30 tablet 04/15/19 Unknown Rx cefUROXime [Ceftin] 250 mg PO Q12H #14 tablet 04/15/19 Unknown Rx predniSONE [Deltasone] 1 tab PO QDAY #91 tab 04/15/19 Unknown Rx traMADoL [Ultram 50 MG tab] 50 mg PO Q8H PRN #15 tab 04/15/19 04/12/19 04/11/19 Rx Review of Systems ROS: Stated complaint: CHEST PAIN/CRUZITO Other details as noted in HPI Comment: All other systems reviewed and negative Past History Past Medical History: CAD, COPD, diabetes, dialysis, hypertension Past Surgical History: Other (History of coronary artery bypass surgery and also PermCath placement) Social history: no significant social history Family history: no significant family history Medications and Allergies Allergies Allergy/AdvReac Type Severity Reaction Status Date / Time latex Allergy Hives Verified 02/05/19 13:51 milk Allergy Rash Verified 02/05/19 13:51 Home Medications Medication Instructions Recorded Confirmed Last Taken Type Metoprolol [Lopressor TAB] 50 mg PO BID #60 tablet 01/27/18 04/12/19 04/11/19 Rx Montelukast [Singulair] 10 mg PO QPM #30 tablet 01/27/18 04/12/19 04/11/19 Rx Pravastatin [Pravachol] 40 mg PO QHS #30 tablet 01/27/18 04/12/19 04/11/19 Rx allopurinoL [Zyloprim] 100 mg PO QDAY #30 tablet 01/27/18 04/12/19 04/11/19 Rx Famotidine [Pepcid] 20 mg PO BID 06/17/18 04/12/19 04/11/19 History Fluticasone/Vilanterol [Breo 1 each IH BID #1 blst.w.dev 12/31/18 04/12/19 04/11/19 Rx Ellipta 200-25 Mcg INH] Tiotropium Scio [Spiriva 4 gm IH DAILY #1 mist.inhal 12/31/18 04/12/19 04/11/19 Rx Respimat] Aspirin EC [Halfprin EC] 81 mg PO QDAY #30 tablet.dr 02/18/19 04/12/19 04/11/19 Rx ISOSORBIDE MONOnitrate [Imdur ER] 30 mg PO QDAY #30 tablet 02/18/19 04/13/19 Unknown Rx glipiZIDE [Glucotrol] 5 mg PO QDAY #30 tablet 02/18/19 04/13/19 Unknown Rx ALBUTEROL NEB's [Proventil 0.083% 2.5 mg IH Q4HRT PRN #30 nebu 04/15/19 Unknown Rx NEBS] Furosemide [Lasix] 20 mg PO QDAY #30 tablet 04/15/19 Unknown Rx Ipratropium/Albuterol Sulfate 2 puff IH BID #1 unit 04/15/19 Unknown Rx [Combivent Respimat] Olanzapine/Fluoxetine HCl [Symbyax 1 each PO QHS #30 capsule 04/15/19 Unknown Rx 3-25 mg] Sodium Bicarbonate 650 mg PO BID #60 tablet 04/15/19 Unknown Rx amLODIPine 10 mg PO DAILY #30 tablet 04/15/19 Unknown Rx cefUROXime [Ceftin] 250 mg PO Q12H #14 tablet 04/15/19 Unknown Rx predniSONE [Deltasone] 1 tab PO QDAY #91 tab 04/15/19 Unknown Rx traMADoL [Ultram 50 MG tab] 50 mg PO Q8H PRN #15 tab 04/15/19 04/12/19 04/11/19 Rx Active Meds: Active Medications Acetaminophen (Tylenol) 650 mg PO Q4H PRN PRN Reason: Pain MILD(1-3)/Fever >100.5/HERRMANN Albuterol (Proventil) 2.5 mg IH Q3H PRN PRN Reason: Shortness Of Breath Last Admin: 05/01/19 04:13 Dose: 2.5 mg Documented by: Albuterol/Ipratropium (Duoneb *Not For Prn Use*) 1 ampul IH QIDRT [facility] Last Admin: 04/30/19 21:41 Dose: 1 ampul Documented by: Allopurinol (Zyloprim) 100 mg PO QDAY [facility] Last Admin: 04/30/19 20:41 Dose: Not Given Documented by: Amlodipine Besylate (Amlodipine) 10 mg PO DAILY [facility] Last Admin: 04/30/19 20:41 Dose: Not Given Documented by: Arformoterol Tartrate (Brovana Nebu) 15 mcg IH Q12HRT [facility] Aspirin (Halfprin Ec) 81 mg PO QDAY [facility] Last Admin: 04/30/19 20:41 Dose: Not Given Documented by: Budesonide (Pulmicort) 1 mg IH Q12HRT [facility] Famotidine (Pepcid) 10 mg PO BID [facility] Last Admin: 04/30/19 20:25 Dose: Not Given Documented by: Furosemide (Lasix) 20 mg PO QDAY [facility] Last Admin: 04/30/19 20:41 Dose: Not Given Documented by: Hydromorphone HCl (Dilaudid) 0.5 mg IV Q3H PRN PRN Reason: Pain , Severe (7-10) Sodium Chloride (Nacl 0.9%) 100 mls @ 999 mls/hr IV ALBINO PRN PRN Reason: Hypotension Levofloxacin/Dextrose (Levaquin 500mg/100ml) 500 mg in 100 mls @ 100 mls/hr IV Q48H [facility] Isosorbide Mononitrate (Imdur) 30 mg PO QDAY [facility] Last Admin: 04/30/19 20:41 Dose: Not Given Documented by: Lorazepam (Ativan) 2 mg IV Q3H PRN PRN Reason: Agitation Last Admin: 05/01/19 03:54 Dose: 2 mg Documented by: Methylprednisolone Sodium Succinate (Solu-Medrol) 125 mg IV Q8H [facility] Last Admin: 05/01/19 03:40 Dose: 125 mg Documented by: Metoclopramide HCl (Reglan) 10 mg IV Q6H PRN PRN Reason: Nausea And Vomiting Metoprolol Tartrate (Metoprolol) 50 mg PO BID [facility] Last Admin: 04/30/19 20:25 Dose: Not Given Documented by: Miscellaneous Medication (Olanzapine/Fluoxetine Hcl [Symbyax 3-25 Mg]) 1 each PO QHS [facility] Montelukast Sodium (Singulair) 10 mg PO QPM [facility] Last Admin: 04/30/19 20:25 Dose: Not Given Documented by: Ondansetron HCl (Zofran) 4 mg IV Q3H PRN PRN Reason: Nausea And Vomiting Oxycodone/Acetaminophen (Percocet 5/325) 1 tab PO Q6H PRN PRN Reason: Pain, Moderate (4-6) Pravastatin Sodium (Pravachol) 40 mg PO QHS [facility] Last Admin: 04/30/19 22:24 Dose: Not Given Documented by: Sodium Bicarbonate (Sodium Bicarbonate) 650 mg PO BID [facility] Last Admin: 04/30/19 22:25 Dose: Not Given Documented by: Sodium Chloride (Sodium Chloride Flush Syringe 10 Ml) 10 ml IV BID [facility] Last Admin: 04/30/19 21:44 Dose: 10 ml Documented by: Sodium Chloride (Sodium Chloride Flush Syringe 10 Ml) 10 ml IV PRN PRN PRN Reason: LINE FLUSH Last Admin: 05/01/19 03:55 Dose: 10 ml Documented by: Tramadol HCl (Ultram) 50 mg PO Q8H PRN PRN Reason: Pain, Moderate (4-6) Valsartan (Diovan) 160 mg PO BID [facility] Last Admin: 04/30/19 20:25 Dose: Not Given Documented by: Exam - Constitutional Vitals: Temp Pulse Resp BP Pulse Ox 98.6 F 104 H 24 151/123 100 05/01/19 04:50 05/01/19 06:25 05/01/19 06:25 05/01/19 05:53 05/01/19 06:25 General appearance: Present: severe distress, well-nourished - EENT Eyes: Present: PERRL ENT: hearing intact, clear oral mucosa - Neck Neck: Present: supple, normal ROM - Respiratory Respiratory effort: normal Respiratory: bilateral: diminished, rhonchi, wheezing - Cardiovascular Heart rate: 88 Rhythm: regular Heart Sounds: Present: S1 & S2. Absent: rub, click - Extremities Extremities: no ischemia, pulses intact, pulses symmetrical, No edema Peripheral Pulses: within normal limits - Abdominal General gastrointestinal: Present: soft, non-tender, non-distended, normal bowel sounds Female genitourinary: Present: normal - Rectal Rectal Exam: deferred - Integumentary Integumentary: Present: clear, warm, dry - Musculoskeletal Musculoskeletal: gait normal, strength equal bilaterally - Psychiatric Psychiatric: appropriate mood/affect, intact judgment & insight - Neurologic Neurologic: CNII-XII intact, moves all extremities - Allied Health Allied health notes reviewed: nursing, case management ROB score - Rob Score Age > 65: (1) Yes Aspirin use within the Past 7 Days: (1) Yes 3 or more CAD Risk Factors: (1) Yes 2 or more Angina events in past 24 hrs: (0) No Known CAD with more than 50% Stenosis: (0) No Elevated Cardiac Markers: (0) No ST Deviation Greater than 0.5mm: (0) No ROB Score: 3 Results - Labs CBC & Chem 7: 04/30/19 11:32 04/30/19 14:20 Labs: Laboratory Last Values WBC 7.4 K/mm3 (4.5-11.0) 04/30/19 11:32 RBC 4.38 M/mm3 (3.65-5.03) 04/30/19 11:32 Hgb 13.0 gm/dl (10.1-14.3) 04/30/19 11: Hct 41.1 % (30.3-42.9) 04/30/19 11: MCV 94 fl (79-97) 04/30/19 11: MCH 30 pg (28-32) 04/30/19 11: MCHC 32 % (30-34) 04/30/19 11: RDW 17.1 % (13.2-15.2) H 04/30/19 11:32 Plt Count 84 K/mm3 (140-440) L 04/30/19 11: Lymph % (Auto) 10.9 % (13.4-35.0) L 04/30/19 11:32 Foard % (Auto) 7.4 % (0.0-7.3) H 04/30/19 11: Eos % (Auto) 0.4 % (0.0-4.3) 04/30/19 11: Baso % (Auto) 0.7 % (0.0-1.8) 04/30/19 11: Lymph # 0.8 K/mm3 (1.2-5.4) L 04/30/19 11: Foard # 0.5 K/mm3 (0.0-0.8) 04/30/19 11: Eos # 0.0 K/mm3 (0.0-0.4) 04/30/19 11: Baso # 0.1 K/mm3 (0.0-0.1) 04/30/19 11: Seg Neutrophils % 80.6 % (40.0-70.0) H 04/30/19 11: Seg Neutrophils # 6.0 K/mm3 (1.8-7.7) 04/30/19 11: PT 14.3 Sec. (12.2-14.9) 04/30/19 15: INR 1.10 (0.87-1.13) 04/30/19 15:23 APTT 37.2 Sec. (24.2-36.6) H 04/30/19 15:23 ABG pH 7.351 pH Units (7.350-7.450) 04/30/19 22:20 ABG pCO2 46.8 mm Hg 04/30/19 22:20 ABG pO2 98.3 mm Hg (80.0-90.0) H 04/30/19 22:20 ABG HCO3 25.3 mmol/L (20.0-26.0) 04/30/19 22:20 ABG O2 Saturation 97.3 % (95.0-99.0) 04/30/19 22:20 ABG O2 Content 17.7 (0.0-44) 04/30/19 22:20 ABG Base Excess -0.7 mmol/L (-2.0-3.0) 04/30/19 22:20 ABG Hemoglobin 13.2 gm/dl (12.0-16.0) 04/30/19 22:20 ABG Carboxyhemoglobin 1.6 % (0.0-5.0) 04/30/19 22: ABG Methemoglobin 0.7 % (0.0-1.5) 04/30/19 22:20 Oxyhemoglobin 95.1 % (95.0-99.0) 04/30/19 22:20 FiO2 35 % 04/30/19 22:20 Sodium 146 mmol/L (137-145) H 04/30/19 14:20 Potassium 3.2 mmol/L (3.6-5.0) L 04/30/19 14:20 Chloride 105.9 mmol/L (98-107) 04/30/19 14:20 Carbon Dioxide 22 mmol/L (22-30) 04/30/19 14:20 Anion Gap 21 mmol/L 04/30/19 14:20 BUN 39 mg/dL (7-17) H 04/30/19 14:20 Creatinine 2.6 mg/dL (0.7-1.2) H 04/30/19 14:20 Estimated GFR 22 ml/min 04/30/19 14:20 BUN/Creatinine Ratio 15 % 04/30/19 14:20 Glucose 90 mg/dL (65-100) 04/30/19 14:20 POC Glucose 142 (70-105) H 05/01/19 04:46 Hemoglobin A1c 5.6 % (4-6) 04/30/19 11:32 Calcium 9.3 mg/dL (8.4-10.2) 04/30/19 14:20 Total Bilirubin 0.40 mg/dL (0.1-1.2) 04/30/19 14:20 AST 30 units/L (5-40) 04/30/19 14:20 ALT 23 units/L (7-56) 04/30/19 14:20 Alkaline Phosphatase 106 units/L (35-129) 04/30/19 14:20 Total Creatine Kinase Cancelled 04/30/19 14:20 CK-MB (CK-2) Cancelled 04/30/19 14:20 CK-MB (CK-2) Rel Index Cancelled 04/30/19 14:20 Troponin T 0.117 ng/mL (0.00-0.029) H* 04/30/19 14:20 NT-Pro-B Natriuret Pep 96268 pg/mL (0-900) H 04/30/19 14:20 Total Protein 6.4 g/dL (6.3-8.2) 04/30/19 14:20 Albumin 4.1 g/dL (3.9-5) 04/30/19 14:20 Albumin/Globulin Ratio 1.8 % 04/30/19 14:20 Triglycerides 178 mg/dL (2-149) H 04/30/19 14:20 Cholesterol 303 mg/dL (50-199) H 04/30/19 14:20 LDL Cholesterol Direct 190 mg/dL (50-130) H 04/30/19 14:20 HDL Cholesterol 105 mg/dL (40-59) H 04/30/19 14:20 Cholesterol/HDL Ratio 2.88 % 04/30/19 14:20 Hepatitis A IgM Ab Non-reactive (NonReactive) 04/30/19 14:20 Hep Bs Antigen Non-reactive (Negative) 04/30/19 14:20 Hep B Core IgM Ab Non-reactive (NonReactive) 04/30/19 14:20 Hepatitis C Antibody Non-reactive (NonReactive) 04/30/19 14:20 Short CBC 04/30/19 Range/Units 11:32 WBC 7.4 (4.5-11.0) K/mm3 Hgb 13.0 (10.1-14.3) gm/dl Hct 41.1 (30.3-42.9) % Plt Count 84 L (140-440) K/mm3 BMP 04/30/19 14:20 Sodium 146 H Potassium 3.2 L Chloride 105.9 Carbon Dioxide 22 BUN 39 H Creatinine 2.6 H Glucose 90 Calcium 9.3 Cardiac Enzymes 04/30/19 Range/Units 14:20 Total Creatine Kinase Cancelled CK-MB (CK-2) Cancelled Troponin T 0.117 H* (0.00-0.029) ng/mL Liver Function 04/30/19 Range/Units 14:20 Total Bilirubin 0.40 (0.1-1.2) mg/dL AST 30 (5-40) units/L ALT 23 (7-56) units/L Alkaline Phosphatase 106 (35-129) units/L Albumin 4.1 (3.9-5) g/dL - Imaging and Cardiology EKG: report reviewed Chest x-ray: report reviewed (CHF) Imaging and Cardiology: EKG SINUS RHYTHM VENTRICULAR PREMATURE COMPLEX PROBABLE LEFT ATRIAL ENLARGEMENT LVH WITH SECONDARY REPOLARIZATION ABNORMALITY INFERIOR INFARCT, OLD PROLONGED QT INTERVAL [place]/IV: Voiding Method Incontinent IV Catheter Type [Right Hand] INT / Saline Lock IV Catheter Type [Left Forearm INT / Saline Lock ] IV Catheter Type [Right VAS Cath Internal Jugular] Assessment and Plan Advance Directives: Yes (Full code) VTE prophylaxis?: Chemical Plan of care discussed with patient/family: Yes - Patient Problems (1) Acute and chronic respiratory failure Current Visit: No Status: Acute Qualifiers: Respiratory failure complication: hypoxia Qualified Code(s): J96.21 - Acute and chronic respiratory failure with hypoxia Plan to address problem: Patient admitted to [facility] initially Had to transfer to ICU for severe Tachypnea and Severe anxiety Duonebs IV steroids and IV abx On Bipap Intubation if necessary (2) JOSE ANGEL (generalized anxiety disorder) Current Visit: Yes Status: Acute Plan to address problem: IV Ativan q3 prn (3) COPD exacerbation Current Visit: Yes Status: Acute Plan to address problem: Patient admitted to [facility] initially Had to transfer to ICU for severe Tachypnea and Severe anxiety Duonebs IV steroids and IV abx On Bipap Intubation if necessary (4) ESRD needing dialysis Current Visit: Yes Status: Chronic Plan to address problem: Nephrology consult requested Emergent HD Increased UF (5) CAD (coronary artery disease) Current Visit: No Status: Chronic Qualifiers: Coronary Disease-Associated Artery/Lesion type: [place] artery [place] vs. transplanted heart: [place] heart Plan to address problem: On Ismo and Asa (6) HLD (hyperlipidemia) Current Visit: No Status: Chronic Qualifiers: Hyperlipidemia type: mixed hyperlipidemia Qualified Code(s): E78.2 - Mixed hyperlipidemia Plan to address problem: On Statins (7) HTN (hypertension) Current Visit: No Status: Chronic Qualifiers: Hypertension type: essential hypertension Qualified Code(s): I10 - Essential (primary) hypertension Plan to address problem: Cnt antihypertensives (8) Hypokalemia Current Visit: Yes Status: Acute Plan to address problem: Supplemented (9) Elevated troponin level Current Visit: Yes Status: Chronic Plan to address problem: Sec to ESRD NSTEMI 2 (10) DVT prophylaxis Current Visit: No Status: Acute Plan to address problem: On Heparin and GI prophylaxis
[2019-05-01] MEDS: ARFORMOTEROL 15 MCG/2 ML NEBU IH SCH ×2 (07:19→20:29)
[2019-05-01] MEDS: BUDESONIDE 0.5 MG/2 ML NEBU IH SCH ×2 (07:19→20:29)
[2019-05-01] MEDS: IPRATROPIUM/ALBUTEROL SULFATE 3 ML AMPUL.NEB IH SCH ×4 (07:19→20:29)
[2019-05-01] MEDS ORDERED: FUROSEMIDE 40 MG/4 ML INJ IV ONE ×2 (08:44→11:24)
[2019-05-01] MEDS ORDERED: TIOTROPIUM BROMIDE 4 GM IH SCH (10:00)
--- NOTE | 2019-05-01 11:09 | Consultation ---
History of Present Illness Consult date: 05/01/19 Requesting physician: KEITH ROTH Reason for consult: dyspnea History of present illness: 78 y/o female well known to me admitted with acute on chronic respiratory failure from volume overload. Required continuous bipap therapy and was transitioned to either IMCU or ICU, orders were not placed. She recieved none of her PO meds and was not able to finish HD yesterday secondary to anxiety. Remainder of the review is negative. Past History Past Medical History: CAD, COPD, diabetes, dialysis, hypertension Past Surgical History: Other (History of coronary artery bypass surgery and also PermCath placement) Social history: no significant social history Family history: no significant family history Medications and Allergies Allergies Allergy/AdvReac Type Severity Reaction Status Date / Time latex Allergy Hives Verified 02/05/19 13:51 milk Allergy Rash Verified 02/05/19 13:51 Home Medications Medication Instructions Recorded Confirmed Last Taken Type Metoprolol [Lopressor TAB] 50 mg PO BID #60 tablet 01/27/18 04/12/19 04/11/19 Rx Montelukast [Singulair] 10 mg PO QPM #30 tablet 01/27/18 04/12/19 04/11/19 Rx Pravastatin [Pravachol] 40 mg PO QHS #30 tablet 01/27/18 04/12/19 04/11/19 Rx allopurinoL [Zyloprim] 100 mg PO QDAY #30 tablet 01/27/18 04/12/19 04/11/19 Rx Famotidine [Pepcid] 20 mg PO BID 06/17/18 04/12/19 04/11/19 History Fluticasone/Vilanterol [Breo 1 each IH BID #1 blst.w.dev 12/31/18 04/12/19 04/11/19 Rx Ellipta 200-25 Mcg INH] Tiotropium [place] [Spiriva 4 gm IH DAILY #1 mist.inhal 12/31/18 04/12/19 04/11/19 Rx Respimat] Aspirin EC [Halfprin EC] 81 mg PO QDAY #30 tablet. 02/18/19 04/12/19 04/11/19 Rx ISOSORBIDE MONOnitrate [Imdur ER] 30 mg PO QDAY #30 tablet 02/18/19 04/13/19 Unknown Rx glipiZIDE [Glucotrol] 5 mg PO QDAY #30 tablet 02/18/19 04/13/19 Unknown Rx ALBUTEROL NEB's [Proventil 0.083% 2.5 mg IH Q4HRT PRN #30 nebu 04/15/19 Unknown Rx NEBS] Furosemide [Lasix] 20 mg PO QDAY #30 tablet 04/15/19 Unknown Rx Ipratropium/Albuterol Sulfate 2 puff IH BID #1 unit 04/15/19 Unknown Rx [Combivent Respimat] Olanzapine/Fluoxetine HCl [Symbyax 1 each PO QHS #30 capsule 04/15/19 Unknown Rx 3-25 mg] Sodium Bicarbonate 650 mg PO BID #60 tablet 04/15/19 Unknown Rx amLODIPine 10 mg PO DAILY #30 tablet 04/15/19 Unknown Rx cefUROXime [Ceftin] 250 mg PO Q12H #14 tablet 04/15/19 Unknown Rx predniSONE [Deltasone] 1 tab PO QDAY #91 tab 04/15/19 Unknown Rx traMADoL [Ultram 50 MG tab] 50 mg PO Q8H PRN #15 tab 04/15/19 04/12/19 04/11/19 Rx Active Meds: Active Medications Acetaminophen (Tylenol) 650 mg PO Q4H PRN PRN Reason: Pain MILD(1-3)/Fever >100.5/HERRMANN Albuterol (Proventil) 2.5 mg IH Q3H PRN PRN Reason: Shortness Of Breath Last Admin: 05/01/19 04:13 Dose: 2.5 mg Documented by: Albuterol/Ipratropium (Duoneb *Not For Prn Use*) 1 ampul IH QIDRT [facility] Last Admin: 05/01/19 07:19 Dose: Not Given Documented by: Allopurinol (Zyloprim) 100 mg PO QDAY [facility] Last Admin: 04/30/19 20:41 Dose: Not Given Documented by: Amlodipine Besylate (Amlodipine) 10 mg PO DAILY [facility] Last Admin: 04/30/19 20:41 Dose: Not Given Documented by: Arformoterol Tartrate (Brovana Nebu) 15 mcg IH Q12HRT [facility] Last Admin: 05/01/19 07:19 Dose: 15 mcg Documented by: Aspirin (Halfprin Ec) 81 mg PO QDAY [facility] Last Admin: 04/30/19 20:41 Dose: Not Given Documented by: Budesonide (Pulmicort) 1 mg IH Q12HRT [facility] Last Admin: 05/01/19 07:19 Dose: 1 mg Documented by: Famotidine (Pepcid) 10 mg PO BID [facility] Last Admin: 04/30/19 20:25 Dose: Not Given Documented by: Furosemide (Lasix) 40 mg IV 0600,1800 [facility] Hydromorphone HCl (Dilaudid) 0.5 mg IV Q3H PRN PRN Reason: Pain , Severe (7-10) Sodium Chloride (Nacl 0.9%) 100 mls @ 999 mls/hr IV ALBINO PRN PRN Reason: Hypotension Levofloxacin/Dextrose (Levaquin 500mg/100ml) 500 mg in 100 mls @ 100 mls/hr IV Q48H [facility] Isosorbide Mononitrate (Imdur) 30 mg PO QDAY [facility] Last Admin: 04/30/19 20:41 Dose: Not Given Documented by: Lorazepam (Ativan) 2 mg IV Q3H PRN PRN Reason: Agitation Last Admin: 05/01/19 07:12 Dose: 2 mg Documented by: Methylprednisolone Sodium Succinate (Solu-Medrol) 125 mg IV Q8H [facility] Last Admin: 05/01/19 03:40 Dose: 125 mg Documented by: Metoclopramide HCl (Reglan) 10 mg IV Q6H PRN PRN Reason: Nausea And Vomiting Metoprolol Tartrate (Metoprolol) 50 mg PO BID [facility] Last Admin: 04/30/19 20:25 Dose: Not Given Documented by: Miscellaneous Medication (Olanzapine/Fluoxetine Hcl [Symbyax 3-25 Mg]) 1 each PO QHS [facility] Montelukast Sodium (Singulair) 10 mg PO QPM [facility] Last Admin: 04/30/19 20:25 Dose: Not Given Documented by: Ondansetron HCl (Zofran) 4 mg IV Q3H PRN PRN Reason: Nausea And Vomiting Oxycodone/Acetaminophen (Percocet 5/325) 1 tab PO Q6H PRN PRN Reason: Pain, Moderate (4-6) Pravastatin Sodium (Pravachol) 40 mg PO QHS [facility] Last Admin: 04/30/19 22:24 Dose: Not Given Documented by: Sodium Bicarbonate (Sodium Bicarbonate) 650 mg PO BID [facility] Last Admin: 04/30/19 22:25 Dose: Not Given Documented by: Sodium Chloride (Sodium Chloride Flush Syringe 10 Ml) 10 ml IV BID [facility] Last Admin: 04/30/19 21:44 Dose: 10 ml Documented by: Sodium Chloride (Sodium Chloride Flush Syringe 10 Ml) 10 ml IV PRN PRN PRN Reason: LINE FLUSH Last Admin: 05/01/19 03:55 Dose: 10 ml Documented by: Tramadol HCl (Ultram) 50 mg PO Q8H PRN PRN Reason: Pain, Moderate (4-6) Valsartan (Diovan) 160 mg PO BID [facility] Last Admin: 04/30/19 20:25 Dose: Not Given Documented by: Review of Systems All systems: negative Physical Examination Vital signs: Vital Signs Pulse Resp 102 H 44 H 04/30/19 09:42 04/30/19 09:42 General appearance: appears uncomfortable Eyes: non-icteric ENT: other (still on full face bipap mask) Neck: supple Effort: mildly labored Ascultation: Bilateral: rales Results - Laboratory Findings CBC and BMP: 04/30/19 11:32 04/30/19 14:20 ABG ABG pH 7.351 pH Units (7.350-7.450) 04/30/19 22:20 ABG pCO2 46.8 mm Hg 04/30/19 22:20 ABG pO2 98.3 mm Hg (80.0-90.0) H 04/30/19 22:20 ABG O2 Saturation 97.3 % (95.0-99.0) 04/30/19 22:20 PT/INR, D-dimer PT 14.3 Sec. (12.2-14.9) 04/30/19 15:23 INR 1.10 (0.87-1.13) 04/30/19 15:23 Abnormal lab findings: Abnormal Labs 04/30/19 04/30/19 04/30/19 10:12 11:32 11:32 RDW 17.1 H Plt Count 84 L Lymph % (Auto) 10.9 L [place] % (Auto) 7.4 H Lymph # 0.8 L Seg Neutrophils % 80.6 H PT 28.3 H INR 2.59 H APTT ABG pH 7.347 L ABG pO2 221.9 H ABG O2 Saturation 99.3 H ABG Base Excess -2.2 L Oxyhemoglobin Sodium Potassium BUN Creatinine POC Glucose Troponin T NT-Pro-B Natriuret Pep Triglycerides Cholesterol LDL Cholesterol Direct HDL Cholesterol 04/30/19 04/30/19 04/30/19 14:20 15:23 18:05 RDW Plt Count Lymph % (Auto) [place] % (Auto) Lymph # Seg Neutrophils % PT INR APTT 37.2 H ABG pH ABG pO2 79.2 L ABG O2 Saturation ABG Base Excess Oxyhemoglobin 94.4 L Sodium 146 H Potassium 3.2 L BUN 39 H Creatinine 2.6 H POC Glucose Troponin T 0.117 H* NT-Pro-B Natriuret Pep 33581 H Triglycerides 178 H Cholesterol 303 H LDL Cholesterol Direct 190 H HDL Cholesterol 105 H 04/30/19 05/01/19 05/01/19 22:20 00:48 04:46 RDW Plt Count Lymph % (Auto) [place] % (Auto) Lymph # Seg Neutrophils % PT INR APTT ABG pH ABG pO2 98.3 H ABG O2 Saturation ABG Base Excess Oxyhemoglobin Sodium Potassium BUN Creatinine POC Glucose 108 H 142 H Troponin T NT-Pro-B Natriuret Pep Triglycerides Cholesterol LDL Cholesterol Direct HDL Cholesterol - Diagnostic Findings Chest x-ray: image reviewed Assessment and Plan 78 y/o female with acute on chronic respiratory failure secondary to volume overload 1. Started patient on IV BID lasix. Awaiting renal eval but patient states that she makes urine 2. Per report, did not finish HD on yesterday, may need more today. 3. Will transfer/place order for step down bed.
[2019-05-01] MEDS: ASPIRIN EC 81 MG TAB PO SCH ×2 (11:13→13:45)
[2019-05-01] MEDS: SODIUM BICARBONATE 650 MG TAB PO SCH ×3 (11:13→22:40)
[2019-05-01] MEDS: VALSARTAN 160MG TAB PO SCH ×3 (11:13→22:40)
[2019-05-01] MEDS: METOPROLOL TARTRATE 50 MG TAB PO SCH ×4 (11:13→22:40)
[2019-05-01] MEDS: FAMOTIDINE 10 MG TAB PO SCH ×3 (11:13→22:40)
[2019-05-01] MEDS: amLODIPine 10 MG TAB PO SCH ×2 (11:14→13:44)
[2019-05-01] MEDS: POTASSIUM CHLORIDE ER 20 MEQ TAB PO ONE ×2 (11:16→13:40)
[2019-05-01] MEDS: allopurinoL 100 MG TAB PO SCH ×2 (11:16→13:50)
--- NOTE | 2019-05-01 12:19 | Progress Note ---
Assessment and Plan Impression * End-stage renal disease on maintenance hemodialysis * Respiratory failure secondary to COPD exacerbation * Coronary artery disease status post bypass surgery * Hypertension * Diabetes Recommendations * Patient had hemodialysis treatment yesterday. She did however developed severe cramps on dialysis and ultrafiltration had to be reduced * Respiratory failure seems to be more from her COPD exacerbation then volume overload. * Adjust diet and meds for ESRD state * Avoid nephrotoxins * Monitor fluid status and electrolytes closely * Agree with trial of loop diuretics. However would increase the dose to 80 mg twice a day. Discussed with patient's nurse * No urgent indication for dialysis treatment today Subjective Date of service: 05/01/19 Interval history: Patient is currently in the ICU. On a BiPAP mask. Appears comfortable. Objective - Vital Signs Vital signs: Vital Signs - 12hr 05/01/19 05/01/19 05/01/19 00:20 00:31 00:41 Temperature Pulse Rate 100 H 99 H 108 H Pulse Rate [ Bilateral] Respiratory 30 H 27 H 28 H Rate Respiratory Rate [Bilateral ] Blood Pressure 99/61 99/61 99/61 O2 Sat by Pulse 99 99 98 Oximetry 05/01/19 05/01/19 05/01/19 00:51 00:58 01:00 Temperature Pulse Rate 101 H 103 H 101 H Pulse Rate [ Bilateral] Respiratory 25 H 28 H 25 H Rate Respiratory Rate [Bilateral ] Blood Pressure 99/61 99/61 131/65 O2 Sat by Pulse 98 98 97 Oximetry 05/01/19 05/01/19 05/01/19 01:10 01:21 01:31 Temperature Pulse Rate 99 H 102 H 99 H Pulse Rate [ Bilateral] Respiratory 25 H 27 H 23 Rate Respiratory Rate [Bilateral ] Blood Pressure 131/65 131/65 131/65 O2 Sat by Pulse 99 99 99 Oximetry 05/01/19 05/01/19 05/01/19 01:41 01:51 02:00 Temperature Pulse Rate 96 H 103 H 97 H Pulse Rate [ Bilateral] Respiratory 29 H 26 H 27 H Rate Respiratory Rate [Bilateral ] Blood Pressure 131/65 131/65 122/75 O2 Sat by Pulse 99 99 99 Oximetry 05/01/19 05/01/19 05/01/19 02:11 02:21 02:31 Temperature Pulse Rate 100 H 102 H 101 H Pulse Rate [ Bilateral] Respiratory 27 H 26 H 25 H Rate Respiratory Rate [Bilateral ] Blood Pressure 122/75 122/75 122/75 O2 Sat by Pulse 99 100 100 Oximetry 05/01/19 05/01/19 05/01/19 02:41 02:51 03:00 Temperature Pulse Rate 98 H 95 H 97 H Pulse Rate [ Bilateral] Respiratory 22 25 H 25 H Rate Respiratory Rate [Bilateral ] Blood Pressure 122/75 122/75 140/80 O2 Sat by Pulse 100 100 98 Oximetry 05/01/19 05/01/19 05/01/19 03:11 03:20 03:21 Temperature Pulse Rate 98 H 103 H 100 H Pulse Rate [ Bilateral] Respiratory 25 H 24 25 H Rate Respiratory Rate [Bilateral ] Blood Pressure 140/80 140/80 O2 Sat by Pulse 99 100 100 Oximetry 05/01/19 05/01/19 05/01/19 03:31 03:41 03:51 Temperature Pulse Rate 97 H 111 H 113 H Pulse Rate [ Bilateral] Respiratory 24 34 H 36 H Rate Respiratory Rate [Bilateral ] Blood Pressure 140/80 140/80 140/80 O2 Sat by Pulse 100 100 100 Oximetry 05/01/19 05/01/19 05/01/19 04:01 04:11 04:14 Temperature Pulse Rate 104 H 104 H Pulse Rate [ 106 H Bilateral] Respiratory 25 H 25 H Rate Respiratory 30 H Rate [Bilateral ] Blood Pressure 140/80 119/89 O2 Sat by Pulse 100 100 Oximetry 05/01/19 05/01/19 05/01/19 04:21 04:31 04:41 Temperature Pulse Rate 113 H 113 H 111 H Pulse Rate [ Bilateral] Respiratory 32 H 32 H 25 H Rate Respiratory Rate [Bilateral ] Blood Pressure 119/89 140/80 140/80 O2 Sat by Pulse 100 100 100 Oximetry 05/01/19 05/01/19 05/01/19 04:50 04:51 05:01 Temperature 98.6 F Pulse Rate 112 H 110 H Pulse Rate [ Bilateral] Respiratory 31 H 19 Rate Respiratory Rate [Bilateral ] Blood Pressure 140/80 151/123 O2 Sat by Pulse 100 98 Oximetry 05/01/19 05/01/19 05/01/19 05:11 05:20 05:30 Temperature Pulse Rate 116 H 114 H 114 H Pulse Rate [ Bilateral] Respiratory 36 H 21 35 H Rate Respiratory Rate [Bilateral ] Blood Pressure 151/123 151/123 151/123 O2 Sat by Pulse 100 100 100 Oximetry 05/01/19 05/01/19 05/01/19 05:41 05:51 05:53 Temperature Pulse Rate 105 H 105 H 104 H Pulse Rate [ Bilateral] Respiratory 26 H 28 H 28 H Rate Respiratory Rate [Bilateral ] Blood Pressure 151/123 151/123 151/123 O2 Sat by Pulse 100 100 100 Oximetry 05/01/19 05/01/19 05/01/19 06:01 06:11 06:21 Temperature Pulse Rate 101 H 103 H 106 H Pulse Rate [ Bilateral] Respiratory 25 H 22 19 Rate Respiratory Rate [Bilateral ] Blood Pressure 151/123 117/83 117/83 O2 Sat by Pulse 100 100 100 Oximetry 05/01/19 05/01/19 05/01/19 06:25 06:31 06:41 Temperature Pulse Rate 104 H 105 H 104 H Pulse Rate [ Bilateral] Respiratory 24 18 18 Rate Respiratory Rate [Bilateral ] Blood Pressure 117/83 117/83 O2 Sat by Pulse 100 100 100 Oximetry 05/01/19 05/01/19 05/01/19 06:51 07:00 07:11 Temperature Pulse Rate 103 H 107 H 101 H Pulse Rate [ Bilateral] Respiratory 27 H 33 H 24 Rate Respiratory Rate [Bilateral ] Blood Pressure 117/83 185/101 185/101 O2 Sat by Pulse 100 96 100 Oximetry 05/01/19 05/01/19 05/01/19 07:21 07:31 07:38 Temperature Pulse Rate 101 H 104 H Pulse Rate [ 106 H Bilateral] Respiratory 21 22 Rate Respiratory 30 H Rate [Bilateral ] Blood Pressure 146/88 185/101 O2 Sat by Pulse 100 100 Oximetry 05/01/19 05/01/19 05/01/19 07:41 07:51 08:00 Temperature Pulse Rate 101 H 99 H 101 H Pulse Rate [ Bilateral] Respiratory 24 23 22 Rate Respiratory Rate [Bilateral ] Blood Pressure 185/101 185/101 114/76 O2 Sat by Pulse 100 100 98 Oximetry 05/01/19 05/01/19 05/01/19 08:11 08:21 10:27 Temperature 99.0 F Pulse Rate 99 H 101 H Pulse Rate [ Bilateral] Respiratory 21 22 Rate Respiratory Rate [Bilateral ] Blood Pressure 114/76 114/76 O2 Sat by Pulse 99 99 Oximetry - General Appearance General appearance: well-developed, well-nourished, appears stated age, other (On a BiPAP mask) EENT: PERRL, mucous membranes moist Neck: no JVD, no thyromegaly, no carotid bruit, supple, other (Right IJ PermCath in place) Respiratory: Present: Wheezes (Wheezing bilaterally) Cardiology: regular, normal heart rate Gastrointestinal: normal, normoactive bowel sounds Integumentary: no rash, other (No edema) - Lab 04/30/19 11:32 04/30/19 14:20 Most recent lab results ABG pH 7.351 pH Units (7.350-7.450) 04/30/19 22:20 ABG pCO2 46.8 mm Hg 04/30/19 22:20 ABG pO2 98.3 mm Hg (80.0-90.0) H 04/30/19 22:20 ABG HCO3 25.3 mmol/L (20.0-26.0) 04/30/19 22:20 ABG O2 Saturation 97.3 % (95.0-99.0) 04/30/19 22:20 Calcium 9.3 mg/dL (8.4-10.2) 04/30/19 14:20 Medications & Allergies - Medications Allergies/Adverse Reactions: Allergies latex Allergy (Verified 02/05/19 13:51) Hives milk Allergy (Verified 02/05/19 13:51) Rash Home Medications: Home Medications Medication Instructions Recorded Confirmed Last Taken Type Metoprolol [Lopressor TAB] 50 mg PO BID #60 tablet 01/27/18 04/12/19 04/11/19 Rx Montelukast [Singulair] 10 mg PO QPM #30 tablet 01/27/18 04/12/19 04/11/19 Rx Pravastatin [Pravachol] 40 mg PO QHS #30 tablet 01/27/18 04/12/19 04/11/19 Rx allopurinoL [Zyloprim] 100 mg PO QDAY #30 tablet 01/27/18 04/12/19 04/11/19 Rx Famotidine [Pepcid] 20 mg PO BID 06/17/18 04/12/19 04/11/19 History Fluticasone/Vilanterol [Breo 1 each IH BID #1 blst.w.dev 12/31/18 04/12/19 04/11/19 Rx Ellipta 200-25 Mcg INH] Tiotropium [place] [Spiriva 4 gm IH DAILY #1 mist.inhal 12/31/18 04/12/19 04/11/19 Rx Respimat] Aspirin EC [Halfprin EC] 81 mg PO QDAY #30 tablet. 02/18/19 04/12/19 04/11/19 Rx ISOSORBIDE MONOnitrate [Imdur ER] 30 mg PO QDAY #30 tablet 02/18/19 04/13/19 Unknown Rx glipiZIDE [Glucotrol] 5 mg PO QDAY #30 tablet 02/18/19 04/13/19 Unknown Rx ALBUTEROL NEB's [Proventil 0.083% 2.5 mg IH Q4HRT PRN #30 nebu 04/15/19 Unknown Rx NEBS] Furosemide [Lasix] 20 mg PO QDAY #30 tablet 04/15/19 Unknown Rx Ipratropium/Albuterol Sulfate 2 puff IH BID #1 unit 04/15/19 Unknown Rx [Combivent Respimat] Olanzapine/Fluoxetine HCl [Symbyax 1 each PO QHS #30 capsule 04/15/19 Unknown Rx 3-25 mg] Sodium Bicarbonate 650 mg PO BID #60 tablet 04/15/19 Unknown Rx amLODIPine 10 mg PO DAILY #30 tablet 04/15/19 Unknown Rx cefUROXime [Ceftin] 250 mg PO Q12H #14 tablet 04/15/19 Unknown Rx predniSONE [Deltasone] 1 tab PO QDAY #91 tab 04/15/19 Unknown Rx traMADoL [Ultram 50 MG tab] 50 mg PO Q8H PRN #15 tab 04/15/19 04/12/19 04/11/19 Rx Active Medications: Generic Name Dose Route Start Last Admin Trade Name Freq PRN Reason Stop Dose Admin Acetaminophen 650 mg 04/30/19 17:44 Tylenol PO Q4H PRN Pain MILD(1-3)/Fever >100.5/HERRMANN Albuterol 2.5 mg 04/30/19 18:32 05/01/19 04:13 Proventil IH 2.5 mg Q3H PRN Administration Shortness Of Breath Albuterol/Ipratropium 1 ampul 04/30/19 20:00 05/01/19 07:19 Duoneb *Not For Prn Use* IH Not Given QIDRT [facility] Allopurinol 100 mg 04/30/19 18:00 04/30/19 20:41 Zyloprim PO Not Given QDAY [facility] Amlodipine Besylate 10 mg 04/30/19 18:00 04/30/19 20:41 Amlodipine PO Not Given DAILY [facility] Arformoterol Tartrate 15 mcg 05/01/19 08:00 05/01/19 07:19 Brovana Nebu IH 15 mcg Q12HRT [facility] Administration Aspirin 81 mg 04/30/19 18:00 04/30/19 20:41 Halfprin Ec PO Not Given QDAY [facility] Budesonide 1 mg 05/01/19 08:00 05/01/19 07:19 Pulmicort IH 1 mg Q12HRT [facility] Administration Famotidine 10 mg 04/30/19 22:00 04/30/19 20:25 Pepcid PO Not Given BID [facility] Furosemide 80 mg 05/01/19 18:00 Lasix IV 0600,1800 [facility] Hydromorphone HCl 0.5 mg 04/30/19 17:44 Dilaudid IV Q3H PRN Pain , Severe (7-10) Sodium Chloride 100 mls @ 999 mls/hr 04/30/19 13:29 Nacl 0.9% IV ALBINO PRN Hypotension Levofloxacin/Dextrose 500 mg in 100 mls @ 100 mls/hr 05/02/19 19:00 Levaquin 500mg/100ml IV Q48H [facility] Isosorbide Mononitrate 30 mg 04/30/19 18:00 04/30/19 20:41 Imdur PO Not Given QDAY [facility] Lorazepam 2 mg 04/30/19 17:48 05/01/19 11:36 Ativan IV 2 mg Q3H PRN Administration Agitation Lorazepam 1 mg 05/01/19 15:00 Ativan IV Q4H [facility] Methylprednisolone Sodium Succinate 125 mg 04/30/19 20:00 05/01/19 03:40 Solu-Medrol IV 125 mg Q8H [facility] Administration Metoclopramide HCl 10 mg 04/30/19 17:44 Reglan IV Q6H PRN Nausea And Vomiting Metoprolol Tartrate 50 mg 04/30/19 22:00 05/01/19 11:43 Metoprolol PO Not Given BID [facility] Miscellaneous Medication 1 each 04/30/19 22:00 Olanzapine/Fluoxetine Hcl [Symbyax 3-25 Mg] PO QHS [facility] Montelukast Sodium 10 mg 04/30/19 19:00 04/30/19 20:25 Singulair PO Not Given QPM [facility] Ondansetron HCl 4 mg 04/30/19 17:44 Zofran IV Q3H PRN Nausea And Vomiting Oxycodone/Acetaminophen 1 tab 04/30/19 17:44 Percocet 5/325 PO Q6H PRN Pain, Moderate (4-6) Pravastatin Sodium 40 mg 04/30/19 22:00 04/30/19 22:24 Pravachol PO Not Given QHS [facility] Sodium Bicarbonate 650 mg 04/30/19 22:00 04/30/19 22:25 Sodium Bicarbonate PO Not Given BID [facility] Sodium Chloride 10 ml 04/30/19 22:00 05/01/19 11:17 Sodium Chloride Flush Syringe 10 Ml IV 10 ml BID [facility] Administration Sodium Chloride 10 ml 04/30/19 17:44 05/01/19 03:55 Sodium Chloride Flush Syringe 10 Ml IV 10 ml PRN PRN Administration LINE FLUSH Tramadol HCl 50 mg 04/30/19 17:37 Ultram PO Q8H PRN Pain, Moderate (4-6) Valsartan 160 mg 04/30/19 22:00 04/30/19 20:25 Diovan PO Not Given BID [facility]
[2019-05-01 13:13] LABS: Hematocrit 41.1 % (30.3-42.9); Mean Corpuscular HGB Conc 32 % (30-34); Mean Corpuscular Volume 93 fl (79-97); Platelet Count 132 K/mm3 (140-440); Red Blood Count 4.41 M/mm3 (3.65-5.03); Red Cell Distribution Width 16.4 % (13.2-15.2)
[2019-05-01 13:36] LABS: Calcium 9.2 mg/dL (8.4-10.2)
[2019-05-01] MEDS ORDERED: hydrALAZINE 20 MG/1 ML INJ IV ONE (14:00)
[2019-05-01] MEDS: LORazepam 2 MG/ML VIAL IV SCH ×3 (14:58→23:32)
[2019-05-01 15:10] LABS: Basophils % (Manual) 0 % (0.0-1.8); Eosinophils % (Manual) 0 % (0.0-4.3); Total Cells Counted 100
[2019-05-01 15:11] LABS: Giant Platelets Rare; Platelet Estimate Consistent w Auto; Target Cells Rare; Tear Drop Cells Few
[2019-05-01] MEDS ORDERED: FUROSEMIDE 40 MG/4 ML INJ IV SCH (18:00)
[2019-05-01] MEDS: FUROSEMIDE 40 MG/4 ML INJ IV SCH (18:15)
[2019-05-01] MEDS: MONTELUKAST 10 MG TAB PO SCH (18:16)
[2019-05-01] MEDS: PRAVASTATIN 40 MG TAB PO SCH (22:40)
[2019-05-01] MEDS: hydrALAZINE 20 MG/1 ML INJ IV PRN (23:33)
[2019-05-02] MEDS: ALBUTEROL 2.5 MG/3 ML NEBU IH PRN ×2 (01:09→04:49)
[2019-05-02] MEDS: LORazepam 2 MG/ML VIAL IV SCH ×2 (03:48→07:28)
[2019-05-02] MEDS: methylPREDNISolone Sod Succinate 125 MG/2 ML INJ IV SCH ×3 (06:15→18:54)
[2019-05-02] MEDS: FUROSEMIDE 40 MG/4 ML INJ IV SCH ×2 (06:15→18:54)
--- NOTE | 2019-05-02 06:23 | Progress Note ---
Assessment and Plan - Patient Problems (1) Acute and chronic respiratory failure Current Visit: No Status: Acute Qualifiers: Respiratory failure complication: hypoxia Qualified Code(s): J96.21 - Acute and chronic respiratory failure with hypoxia Plan to address problem: Patient admitted to [facility] initially Had to transfer to ICU for severe Tachypnea and Severe anxiety Duonebs IV steroids and IV abx On Bipap Intubation if necessary Interval improvement present (2) JOSE ANGEL (generalized anxiety disorder) Current Visit: Yes Status: Acute Plan to address problem: IV Ativan q3 prn (3) COPD exacerbation Current Visit: Yes Status: Acute Plan to address problem: Patient admitted to [facility] initially Had to transfer to ICU for severe Tachypnea and Severe anxiety Duonebs IV steroids and IV abx On Bipap Intubation if necessary (4) ESRD needing dialysis Current Visit: Yes Status: Chronic Plan to address problem: Nephrology consult requested Emergent HD Increased UF (5) CAD (coronary artery disease) Current Visit: No Status: Chronic Qualifiers: Coronary Disease-Associated Artery/Lesion type: telida artery Lummi vs. transplanted heart: telida heart Plan to address problem: On Ismo and Asa (6) HLD (hyperlipidemia) Current Visit: No Status: Chronic Qualifiers: Hyperlipidemia type: mixed hyperlipidemia Qualified Code(s): E78.2 - Mixed hyperlipidemia Plan to address problem: On Statins (7) HTN (hypertension) Current Visit: No Status: Chronic Qualifiers: Hypertension type: essential hypertension Qualified Code(s): I10 - Essential (primary) hypertension Plan to address problem: Cnt antihypertensives (8) Hypokalemia Current Visit: Yes Status: Acute Plan to address problem: Supplemented (9) Elevated troponin level Current Visit: Yes Status: Chronic Plan to address problem: Sec to ESRD NSTEMI 2 (10) DVT prophylaxis Current Visit: No Status: Acute Plan to address problem: On Heparin and GI prophylaxis Subjective Date of service: 05/01/19 Principal diagnosis: Acute resp failure,COPd exacerbation Interval history: Interval improvement present Objective - Constitutional Vitals: Vital Signs - 12hr 05/01/19 05/01/19 05/01/19 18:20 18:30 18:40 Temperature Pulse Rate 96 H 94 H 92 H Pulse Rate [ Anterior Bilateral] Pulse Rate [ From Monitor] Pulse Rate [ None] Respiratory 34 H 21 21 Rate Respiratory Rate [Anterior Bilateral] Blood Pressure 131/101 131/101 188/124 O2 Sat by Pulse 99 98 100 Oximetry 05/01/19 05/01/19 05/01/19 18:50 19:00 19:10 Temperature Pulse Rate 90 91 H 90 Pulse Rate [ Anterior Bilateral] Pulse Rate [ From Monitor] Pulse Rate [ None] Respiratory 18 18 18 Rate Respiratory Rate [Anterior Bilateral] Blood Pressure 196/130 168/133 168/133 O2 Sat by Pulse 100 98 100 Oximetry 05/01/19 05/01/19 05/01/19 19:20 19:30 19:40 Temperature Pulse Rate 90 89 88 Pulse Rate [ Anterior Bilateral] Pulse Rate [ From Monitor] Pulse Rate [ None] Respiratory 17 15 16 Rate Respiratory Rate [Anterior Bilateral] Blood Pressure 168/133 164/121 164/121 O2 Sat by Pulse 100 97 100 Oximetry 05/01/19 05/01/19 05/01/19 19:50 20:00 20:10 Temperature 97.4 F L Pulse Rate 88 90 89 Pulse Rate [ Anterior Bilateral] Pulse Rate [ From Monitor] Pulse Rate [ None] Respiratory 18 22 19 Rate Respiratory Rate [Anterior Bilateral] Blood Pressure 164/121 161/113 164/121 O2 Sat by Pulse 100 99 100 Oximetry 05/01/19 05/01/19 05/01/19 20:20 20:30 20:37 Temperature Pulse Rate 86 91 H Pulse Rate [ 90 Anterior Bilateral] Pulse Rate [ From Monitor] Pulse Rate [ None] Respiratory 22 30 H Rate Respiratory 22 Rate [Anterior Bilateral] Blood Pressure 164/121 155/95 O2 Sat by Pulse 100 100 Oximetry 05/01/19 05/01/19 05/01/19 20:39 20:40 20:50 Temperature Pulse Rate 88 89 88 Pulse Rate [ Anterior Bilateral] Pulse Rate [ From Monitor] Pulse Rate [ None] Respiratory 22 20 18 Rate Respiratory Rate [Anterior Bilateral] Blood Pressure 155/95 155/95 155/95 O2 Sat by Pulse 100 100 100 Oximetry 05/01/19 05/01/19 05/01/19 21:00 21:10 21:20 Temperature Pulse Rate 89 91 H 94 H Pulse Rate [ Anterior Bilateral] Pulse Rate [ From Monitor] Pulse Rate [ None] Respiratory 21 18 15 Rate Respiratory Rate [Anterior Bilateral] Blood Pressure 155/61 155/61 155/61 O2 Sat by Pulse 100 100 100 Oximetry 03/14/20 03/14/20 03/14/20 21:30 21:40 21:50 Temperature Pulse Rate 94 H 95 H 95 H Pulse Rate [ Anterior Bilateral] Pulse Rate [ From Monitor] Pulse Rate [ None] Respiratory 16 23 18 Rate Respiratory Rate [Anterior Bilateral] Blood Pressure 149/119 149/119 149/119 O2 Sat by Pulse 100 100 100 Oximetry 05/01/19 05/01/19 05/01/19 22:00 23:25 23:33 Temperature 97.4 F L Pulse Rate 93 H 91 H Pulse Rate [ Anterior Bilateral] Pulse Rate [ From Monitor] Pulse Rate [ None] Respiratory 15 Rate Respiratory Rate [Anterior Bilateral] Blood Pressure 160/109 179/101 O2 Sat by Pulse 100 Oximetry 05/02/19 05/02/19 05/02/19 00:00 00:55 01:10 Temperature Pulse Rate 91 H 90 Pulse Rate [ 95 H Anterior Bilateral] Pulse Rate [ 93 H From Monitor] Pulse Rate [ None] Respiratory 18 24 Rate Respiratory 26 H Rate [Anterior Bilateral] Blood Pressure 107/68 O2 Sat by Pulse 100 100 Oximetry 05/02/19 05/02/19 05/02/19 03:56 04:00 04:30 Temperature 97.9 F Pulse Rate 90 93 H Pulse Rate [ Anterior Bilateral] Pulse Rate [ 94 H From Monitor] Pulse Rate [ 97 H None] Respiratory 25 H 27 H 27 H Rate Respiratory Rate [Anterior Bilateral] Blood Pressure 118/88 111/78 O2 Sat by Pulse 100 100 100 Oximetry 05/02/19 04:47 Temperature Pulse Rate Pulse Rate [ 98 H Anterior Bilateral] Pulse Rate [ From Monitor] Pulse Rate [ None] Respiratory Rate Respiratory 28 H Rate [Anterior Bilateral] Blood Pressure O2 Sat by Pulse Oximetry General appearance: Present: mild distress, well-nourished - EENT Eyes: PERRL, EOM intact ENT: hearing intact, clear oral mucosa Ears: bilateral: normal - Neck Neck: supple, normal ROM - Respiratory Respiratory effort: normal Respiratory: bilateral: CTA, rhonchi, wheezing - Breasts Breasts: normal - Cardiovascular Heart rate: 78 Rhythm: regular Heart Sounds: Present: S1 & S2. Absent: gallop, rub Extremities: pulses intact, No edema, normal color, Full ROM - Gastrointestinal General gastrointestinal: Present: soft, non-tender, non-distended, normal bowel sounds - Genitourinary Female genitourinary: normal - Integumentary Integumentary: clear, warm, dry - Musculoskeletal Musculoskeletal: 1, strength equal bilaterally - Neurologic Neurologic: moves all extremities - Psychiatric Psychiatric: memory intact, appropriate mood/affect, intact judgment & insight - Allied health notes Allied health notes reviewed: nursing, case management - Labs CBC & Chem 7: 05/01/19 12:43 05/01/19 12:43 Labs: Abnormal lab results 05/01/19 05/01/19 05/01/19 Range/Units 12:43 12:43 13:27 RDW 16.4 H (13.2-15.2) % Plt Count 132 L (140-440) K/mm3 Seg Neuts % (Manual) 95.0 H (40.0-70.0) % Lymphocytes % (Manual) 3.0 L (13.4-35.0) % Lymphocytes # (Manual) 0.2 L (1.2-5.4) K/mm3 Chloride 95.1 L (98-107) mmol/L Carbon Dioxide 21 L (22-30) mmol/L BUN 29 H (7-17) mg/dL Creatinine 3.2 H (0.7-1.2) mg/dL Glucose 137 H (65-100) mg/dL POC Glucose 114 H (70-105) 05/01/19 05/02/19 05/02/19 Range/Units 18:41 00:01 05:40 RDW (13.2-15.2) % Plt Count (140-440) K/mm3 Seg Neuts % (Manual) (40.0-70.0) % Lymphocytes % (Manual) (13.4-35.0) % Lymphocytes # (Manual) (1.2-5.4) K/mm3 Chloride (98-107) mmol/L Carbon Dioxide (22-30) mmol/L BUN (7-17) mg/dL Creatinine (0.7-1.2) mg/dL Glucose (65-100) mg/dL POC Glucose 127 H 110 H 135 H (70-105)
[2019-05-02] MEDS: SODIUM BICARBONATE 650 MG TAB PO SCH ×2 (10:00→21:24)
[2019-05-02] MEDS: METOPROLOL TARTRATE 50 MG TAB PO SCH ×2 (10:00→21:23)
[2019-05-02] MEDS: amLODIPine 10 MG TAB PO SCH (10:00)
[2019-05-02] MEDS: VALSARTAN 160MG TAB PO SCH ×2 (10:00→21:23)
[2019-05-02] MEDS: ASPIRIN EC 81 MG TAB PO SCH (10:00)
[2019-05-02] MEDS: FAMOTIDINE 10 MG TAB PO SCH ×2 (10:00→21:23)
[2019-05-02] MEDS: allopurinoL 100 MG TAB PO SCH (10:00)
[2019-05-02] MEDS: BUDESONIDE 0.5 MG/2 ML NEBU IH SCH ×2 (10:34→19:43)
[2019-05-02] MEDS: IPRATROPIUM/ALBUTEROL SULFATE 3 ML AMPUL.NEB IH SCH ×4 (10:35→19:43)
[2019-05-02] MEDS: ARFORMOTEROL 15 MCG/2 ML NEBU IH SCH ×2 (10:35→19:43)
--- NOTE | 2019-05-02 11:01 | Progress Note ---
Assessment and Plan Impression * End-stage renal disease on maintenance hemodialysis * Respiratory failure secondary to COPD exacerbation * Coronary artery disease status post bypass surgery * Hypertension * Diabetes Recommendations * Patient had hemodialysis on Friday . She did however developed severe cramps on dialysis and ultrafiltration had to be reduced * Respiratory failure seems to be more from her COPD exacerbation then volume overload. * Adjust diet and meds for ESRD state * Avoid nephrotoxins * Monitor fluid status and electrolytes closely * No urgent indication for dialysis treatment today * Continue dialysis on MWF schedule for now Subjective Date of service: 05/02/19 Principal diagnosis: Acute resp failure,COPd exacerbation Interval history: Patient is currently in the ICU. On a BiPAP mask. Currently on 35% FiO2. Oxygen saturation is 100%. appears comfortable. Objective - Vital Signs Vital signs: Vital Signs - 12hr 05/01/19 05/01/19 05/02/19 23:25 23:33 00:00 Temperature 97.4 F L Pulse Rate 91 H 91 H Pulse Rate [ Anterior Bilateral] Pulse Rate [ 93 H From Monitor] Pulse Rate [ None] Respiratory 18 Rate Respiratory Rate [Anterior Bilateral] Blood Pressure 179/101 O2 Sat by Pulse 100 Oximetry 05/02/19 05/02/19 05/02/19 00:55 01:10 03:56 Temperature Pulse Rate 90 Pulse Rate [ 95 H Anterior Bilateral] Pulse Rate [ From Monitor] Pulse Rate [ 97 H None] Respiratory 24 25 H Rate Respiratory 26 H Rate [Anterior Bilateral] Blood Pressure 107/68 118/88 O2 Sat by Pulse 100 100 Oximetry 05/02/19 05/02/19 05/02/19 04:00 04:30 04:47 Temperature 97.9 F Pulse Rate 90 93 H Pulse Rate [ 98 H Anterior Bilateral] Pulse Rate [ 94 H From Monitor] Pulse Rate [ None] Respiratory 27 H 27 H Rate Respiratory 28 H Rate [Anterior Bilateral] Blood Pressure 111/78 O2 Sat by Pulse 100 100 Oximetry 05/02/19 05/02/19 05/02/19 08:00 10:31 10:35 Temperature Pulse Rate 97 H Pulse Rate [ 97 H Anterior Bilateral] Pulse Rate [ 103 H From Monitor] Pulse Rate [ None] Respiratory 22 30 H Rate Respiratory 31 H Rate [Anterior Bilateral] Blood Pressure 143/66 O2 Sat by Pulse 100 99 Oximetry - General Appearance General appearance: well-developed, well-nourished, appears stated age, other (Currently with a BiPAP mask) EENT: PERRL, mucous membranes moist Neck: no JVD, no thyromegaly, no carotid bruit, supple, other (Right IJ PermCath in place) Respiratory: Present: Wheezes (Bilateral wheezing) Cardiology: regular, normal heart rate, S1S2, no murmurs Gastrointestinal: normal, normoactive bowel sounds Integumentary: no rash, other (No edema) - Lab 05/01/19 12:43 05/01/19 12:43 Most recent lab results ABG pH 7.351 pH Units (7.350-7.450) 04/30/19 22:20 ABG pCO2 46.8 mm Hg 04/30/19 22:20 ABG pO2 98.3 mm Hg (80.0-90.0) H 04/30/19 22:20 ABG HCO3 25.3 mmol/L (20.0-26.0) 04/30/19 22:20 ABG O2 Saturation 97.3 % (95.0-99.0) 04/30/19 22:20 Calcium 9.2 mg/dL (8.4-10.2) 05/01/19 12:43 Medications & Allergies - Medications Allergies/Adverse Reactions: Allergies latex Allergy (Verified 02/05/19 13:51) Hives milk Allergy (Verified 02/05/19 13:51) Rash Home Medications: Home Medications Medication Instructions Recorded Confirmed Last Taken Type Metoprolol [Lopressor TAB] 50 mg PO BID #60 tablet 01/27/18 04/12/19 04/11/19 Rx Montelukast [Singulair] 10 mg PO QPM #30 tablet 01/27/18 04/12/19 04/11/19 Rx Pravastatin [Pravachol] 40 mg PO QHS #30 tablet 01/27/18 04/12/19 04/11/19 Rx allopurinoL [Zyloprim] 100 mg PO QDAY #30 tablet 01/27/18 04/12/19 04/11/19 Rx Famotidine [Pepcid] 20 mg PO BID 06/17/18 04/12/19 04/11/19 History Fluticasone/Vilanterol [Breo 1 each IH BID #1 blst.w.dev 12/31/18 04/12/19 04/11/19 Rx Ellipta 200-25 Mcg INH] Tiotropium [place] [Spiriva 4 gm IH DAILY #1 mist.inhal 12/31/18 04/12/19 04/11/19 Rx Respimat] Aspirin EC [Halfprin EC] 81 mg PO QDAY #30 tablet. 02/18/19 04/12/19 04/11/19 Rx ISOSORBIDE MONOnitrate [Imdur ER] 30 mg PO QDAY #30 tablet 02/18/19 04/13/19 Unknown Rx glipiZIDE [Glucotrol] 5 mg PO QDAY #30 tablet 02/18/19 04/13/19 Unknown Rx ALBUTEROL NEB's [Proventil 0.083% 2.5 mg IH Q4HRT PRN #30 nebu 04/15/19 Unknown Rx NEBS] Furosemide [Lasix] 20 mg PO QDAY #30 tablet 04/15/19 Unknown Rx Ipratropium/Albuterol Sulfate 2 puff IH BID #1 unit 04/15/19 Unknown Rx [Combivent Respimat] Olanzapine/Fluoxetine HCl [Symbyax 1 each PO QHS #30 capsule 04/15/19 Unknown Rx 3-25 mg] Sodium Bicarbonate 650 mg PO BID #60 tablet 04/15/19 Unknown Rx amLODIPine 10 mg PO DAILY #30 tablet 04/15/19 Unknown Rx cefUROXime [Ceftin] 250 mg PO Q12H #14 tablet 04/15/19 Unknown Rx predniSONE [Deltasone] 1 tab PO QDAY #91 tab 04/15/19 Unknown Rx traMADoL [Ultram 50 MG tab] 50 mg PO Q8H PRN #15 tab 04/15/19 04/12/19 04/11/19 Rx Active Medications: Generic Name Dose Route Start Last Admin Trade Name Freq PRN Reason Stop Dose Admin Acetaminophen 650 mg 04/30/19 17:44 Tylenol PO Q4H PRN Pain MILD(1-3)/Fever >100.5/HERRMANN Albuterol 2.5 mg 04/30/19 18:32 05/02/19 04:49 Proventil IH 2.5 mg Q3H PRN Administration Shortness Of Breath Albuterol/Ipratropium 1 ampul 04/30/19 20:00 05/02/19 10:35 Duoneb *Not For Prn Use* IH Not Given QIDRT KVNG Allopurinol 100 mg 04/30/19 18:00 05/01/19 13:50 Zyloprim PO 100 mg QDAY KVNG Administration Amlodipine Besylate 10 mg 04/30/19 18:00 05/01/19 13:44 Amlodipine PO 10 mg DAILY KVNG Administration Arformoterol Tartrate 15 mcg 05/01/19 08:00 05/02/19 10:35 Brovana Nebu IH 15 mcg Q12HRT KVNG Administration Aspirin 81 mg 04/30/19 18:00 05/01/19 13:45 Halfprin Ec PO 81 mg QDAY KVNG Administration Budesonide 1 mg 05/01/19 08:00 05/02/19 10:34 Pulmicort IH 1 mg Q12HRT KVNG Administration Famotidine 10 mg 04/30/19 22:00 05/01/19 22:40 Pepcid PO Not Given BID KVNG Furosemide 80 mg 05/01/19 18:00 05/02/19 06:15 Lasix IV 80 mg 0600,1800 KVNG Administration Hydralazine HCl 5 mg 05/01/19 22:47 05/01/19 23:33 Apresoline IV 5 mg Q6HR PRN Administration Blood Pressure Hydromorphone HCl 0.5 mg 04/30/19 17:44 05/01/19 12:59 Dilaudid IV 0.5 mg Q3H PRN Administration Pain , Severe (7-10) Sodium Chloride 100 mls @ 999 mls/hr 04/30/19 13:29 Nacl 0.9% IV ALBINO PRN Hypotension Levofloxacin/Dextrose 500 mg in 100 mls @ 100 mls/hr 05/02/19 19:00 Levaquin 500mg/100ml IV 05/10/19 19:59 Q48H [facility] Isosorbide Mononitrate 30 mg 04/30/19 18:00 05/01/19 13:45 Imdur PO 30 mg QDAY KVNG Administration Lorazepam 2 mg 04/30/19 17:48 05/01/19 11:36 Ativan IV 2 mg Q3H PRN Administration Agitation Lorazepam 1 mg 05/01/19 15:00 05/02/19 07:28 Ativan IV 1 mg Q4H KVNG Administration Methylprednisolone Sodium Succinate 125 mg 04/30/19 20:00 05/02/19 06:15 Solu-Medrol IV 125 mg Q8H KVNG Administration Metoclopramide HCl 10 mg 04/30/19 17:44 Reglan IV Q6H PRN Nausea And Vomiting Metoprolol Tartrate 50 mg 04/30/19 22:00 05/01/19 22:40 Metoprolol PO Not Given BID [facility] Miscellaneous Medication 1 each 04/30/19 22:00 Olanzapine/Fluoxetine Hcl [Symbyax 3-25 Mg] PO QHS [facility] Montelukast Sodium 10 mg 04/30/19 19:00 05/01/19 18:16 Singulair PO 10 mg QPM KVNG Administration Ondansetron HCl 4 mg 04/30/19 17:44 Zofran IV Q3H PRN Nausea And Vomiting Oxycodone/Acetaminophen 1 tab 04/30/19 17:44 Percocet 5/325 PO Q6H PRN Pain, Moderate (4-6) Pravastatin Sodium 40 mg 04/30/19 22:00 05/01/19 22:40 Pravachol PO Not Given QHS [facility] Sodium Bicarbonate 650 mg 04/30/19 22:00 05/01/19 22:40 Sodium Bicarbonate PO Not Given BID [facility] Sodium Chloride 10 ml 04/30/19 22:00 05/01/19 23:35 Sodium Chloride Flush Syringe 10 Ml IV 10 ml BID KVNG Administration Sodium Chloride 10 ml 04/30/19 17:44 05/01/19 03:55 Sodium Chloride Flush Syringe 10 Ml IV 10 ml PRN PRN Administration LINE FLUSH Tramadol HCl 50 mg 04/30/19 17:37 Ultram PO Q8H PRN Pain, Moderate (4-6) Valsartan 160 mg 04/30/19 22:00 05/01/19 22:40 Diovan PO Not Given BID [facility]
--- NOTE | 2019-05-02 11:16 | Progress Note ---
Assessment and Plan 78 y/o female with acute on chronic respiratory failure secondary to volume overload 1. Decreased steroids to 40q8 2. Will start patient on Klonopin 1 BID and continue PRN ativan at 1 IV q4 3. Continue daily diuresis 4. Patient's anxiety is adding to her respiratory failure, without questions. Must control this to improve her therapy. Subjective Date of service: 05/02/19 Principal diagnosis: Acute resp failure,COPd exacerbation Interval history: Patient remains anxious. Will get tachypnic off bipap. No family at bedside. Objective Vital Signs - 12hr 05/01/19 05/01/19 05/02/19 23:25 23:33 00:00 Temperature 97.4 F L Pulse Rate 91 H 91 H Pulse Rate [ Anterior Bilateral] Pulse Rate [ 93 H From Monitor] Pulse Rate [ None] Respiratory 18 Rate Respiratory Rate [Anterior Bilateral] Blood Pressure 179/101 O2 Sat by Pulse 100 Oximetry 05/02/19 05/02/19 05/02/19 00:55 01:10 03:56 Temperature Pulse Rate 90 Pulse Rate [ 95 H Anterior Bilateral] Pulse Rate [ From Monitor] Pulse Rate [ 97 H None] Respiratory 24 25 H Rate Respiratory 26 H Rate [Anterior Bilateral] Blood Pressure 107/68 118/88 O2 Sat by Pulse 100 100 Oximetry 05/02/19 05/02/19 05/02/19 04:00 04:30 04:47 Temperature 97.9 F Pulse Rate 90 93 H Pulse Rate [ 98 H Anterior Bilateral] Pulse Rate [ 94 H From Monitor] Pulse Rate [ None] Respiratory 27 H 27 H Rate Respiratory 28 H Rate [Anterior Bilateral] Blood Pressure 111/78 O2 Sat by Pulse 100 100 Oximetry 05/02/19 05/02/19 05/02/19 08:00 10:31 10:35 Temperature Pulse Rate 97 H Pulse Rate [ 97 H Anterior Bilateral] Pulse Rate [ 103 H From Monitor] Pulse Rate [ None] Respiratory 22 30 H Rate Respiratory 31 H Rate [Anterior Bilateral] Blood Pressure 143/66 O2 Sat by Pulse 100 99 Oximetry Constitutional: appears uncomfortable Eyes: non-icteric ENT: other (still on full face bipap mask) Neck: supple Effort: mildly labored Ascultation: Bilateral: rales CBC and BMP: 05/01/19 12:43 05/01/19 12:43 ABG, PT/INR, D-dimer: ABG ABG pH 7.351 pH Units (7.350-7.450) 04/30/19 22:20 ABG pCO2 46.8 mm Hg 04/30/19 22:20 ABG pO2 98.3 mm Hg (80.0-90.0) H 04/30/19 22:20 ABG O2 Saturation 97.3 % (95.0-99.0) 04/30/19 22:20 PT/INR, D-dimer PT 14.3 Sec. (12.2-14.9) 04/30/19 15:23 INR 1.10 (0.87-1.13) 04/30/19 15:23 Abnormal lab findings: Abnormal Labs 04/30/19 04/30/19 04/30/19 10:12 11:32 11:32 RDW 17.1 H Plt Count 84 L Lymph % (Auto) 10.9 L [place] % (Auto) 7.4 H Lymph # 0.8 L Seg Neutrophils % 80.6 H Seg Neuts % (Manual) Lymphocytes % (Manual) Lymphocytes # (Manual) PT 28.3 H INR 2.59 H APTT ABG pH 7.347 L ABG pO2 221.9 H ABG O2 Saturation 99.3 H ABG Base Excess -2.2 L Oxyhemoglobin Sodium Potassium Chloride Carbon Dioxide BUN Creatinine Glucose POC Glucose Troponin T NT-Pro-B Natriuret Pep Triglycerides Cholesterol LDL Cholesterol Direct HDL Cholesterol 04/30/19 04/30/19 04/30/19 14:20 15:23 18:05 RDW Plt Count Lymph % (Auto) [place] % (Auto) Lymph # Seg Neutrophils % Seg Neuts % (Manual) Lymphocytes % (Manual) Lymphocytes # (Manual) PT INR APTT 37.2 H ABG pH ABG pO2 79.2 L ABG O2 Saturation ABG Base Excess Oxyhemoglobin 94.4 L Sodium 146 H Potassium 3.2 L Chloride Carbon Dioxide BUN 39 H Creatinine 2.6 H Glucose POC Glucose Troponin T 0.117 H* NT-Pro-B Natriuret Pep 25468 H Triglycerides 178 H Cholesterol 303 H LDL Cholesterol Direct 190 H HDL Cholesterol 105 H 04/30/19 05/01/19 05/01/19 22:20 00:48 04:46 RDW Plt Count Lymph % (Auto) [place] % (Auto) Lymph # Seg Neutrophils % Seg Neuts % (Manual) Lymphocytes % (Manual) Lymphocytes # (Manual) PT INR APTT ABG pH ABG pO2 98.3 H ABG O2 Saturation ABG Base Excess Oxyhemoglobin Sodium Potassium Chloride Carbon Dioxide BUN Creatinine Glucose POC Glucose 108 H 142 H Troponin T NT-Pro-B Natriuret Pep Triglycerides Cholesterol LDL Cholesterol Direct HDL Cholesterol 05/01/19 05/01/19 05/01/19 12:43 12:43 13:27 RDW 16.4 H Plt Count 132 L Lymph % (Auto) [place] % (Auto) Lymph # Seg Neutrophils % Seg Neuts % (Manual) 95.0 H Lymphocytes % (Manual) 3.0 L Lymphocytes # (Manual) 0.2 L PT INR APTT ABG pH ABG pO2 ABG O2 Saturation ABG Base Excess Oxyhemoglobin Sodium Potassium Chloride 95.1 L Carbon Dioxide 21 L BUN 29 H Creatinine 3.2 H Glucose 137 H POC Glucose 114 H Troponin T NT-Pro-B Natriuret Pep Triglycerides Cholesterol LDL Cholesterol Direct HDL Cholesterol 05/01/19 05/02/19 05/02/19 18:41 00:01 05:40 RDW Plt Count Lymph % (Auto) [place] % (Auto) Lymph # Seg Neutrophils % Seg Neuts % (Manual) Lymphocytes % (Manual) Lymphocytes # (Manual) PT INR APTT ABG pH ABG pO2 ABG O2 Saturation ABG Base Excess Oxyhemoglobin Sodium Potassium Chloride Carbon Dioxide BUN Creatinine Glucose POC Glucose 127 H 110 H 135 H Troponin T NT-Pro-B Natriuret Pep Triglycerides Cholesterol LDL Cholesterol Direct HDL Cholesterol
[2019-05-02] MEDS: clonazePAM 0.5 MG TAB PO SCH ×2 (11:56→21:23)
--- NOTE | 2019-05-02 12:39 | Progress Note ---
Subjective Date of service: 05/02/19 Principal diagnosis: Acute resp failure,COPd exacerbation Interval history: Patient is on BiPAP, resting, can be aroused easily, unable to perform review of systems as the patient is on BiPAP Pulmonary and nephrology notes reviewed and appreciated Vital signs and lab results reviewed On examination: Mildly short of breath HEENT: Normocephalic pupils are round reactive to light, throat cannot be assessed Neck: Supple no significant adenopathy no JVD Lungs: Diffuse bilateral expiratory rhonchi Heart: Regular rate and rhythm Abdomen: Soft, nontender Extremities: There is no leg edema A/P: Acute on chronic hypoxic respiratory failure Presently on BiPAP with 35% FiO2 Continue aggressive neb treatments Steroids being tapered Pulmonary consult note reviewed Continue management per Dr. Buck's recommendations COPD exacerbation: Continue neb treatments, antibiotics, steroids and oxygen supplement History of anxiety disorder Continue [place] End-stage renal disease: On hemodialysis Friday and Friday Nephrology note reviewed Objective - Constitutional Vitals: Vital Signs - 12hr 05/02/19 05/02/19 05/02/19 00:55 01:10 03:56 Temperature Pulse Rate 90 Pulse Rate [ 95 H Anterior Bilateral] Pulse Rate [ From Monitor] Pulse Rate [ 97 H None] Respiratory 24 25 H Rate Respiratory 26 H Rate [Anterior Bilateral] Blood Pressure 107/68 118/88 O2 Sat by Pulse 100 100 Oximetry 05/02/19 05/02/19 05/02/19 04:00 04:30 04:47 Temperature 97.9 F Pulse Rate 90 93 H Pulse Rate [ 98 H Anterior Bilateral] Pulse Rate [ 94 H From Monitor] Pulse Rate [ None] Respiratory 27 H 27 H Rate Respiratory 28 H Rate [Anterior Bilateral] Blood Pressure 111/78 O2 Sat by Pulse 100 100 Oximetry 05/02/19 05/02/19 05/02/19 08:00 10:31 10:35 Temperature Pulse Rate 97 H Pulse Rate [ 97 H Anterior Bilateral] Pulse Rate [ 103 H From Monitor] Pulse Rate [ None] Respiratory 22 30 H Rate Respiratory 31 H Rate [Anterior Bilateral] Blood Pressure 143/66 O2 Sat by Pulse 100 99 Oximetry - Labs CBC & Chem 7: 05/01/19 12:43 05/01/19 12:43 Labs: Abnormal lab results 05/01/19 05/01/19 05/01/19 Range/Units 12:43 12:43 13:27 RDW 16.4 H (13.2-15.2) % Plt Count 132 L (140-440) K/mm3 Seg Neuts % (Manual) 95.0 H (40.0-70.0) % Lymphocytes % (Manual) 3.0 L (13.4-35.0) % Lymphocytes # (Manual) 0.2 L (1.2-5.4) K/mm3 Chloride 95.1 L (98-107) mmol/L Carbon Dioxide 21 L (22-30) mmol/L BUN 29 H (7-17) mg/dL Creatinine 3.2 H (0.7-1.2) mg/dL Glucose 137 H (65-100) mg/dL POC Glucose 114 H (70-105) 05/01/19 05/02/19 05/02/19 Range/Units 18:41 00:01 05:40 RDW (13.2-15.2) % Plt Count (140-440) K/mm3 Seg Neuts % (Manual) (40.0-70.0) % Lymphocytes % (Manual) (13.4-35.0) % Lymphocytes # (Manual) (1.2-5.4) K/mm3 Chloride (98-107) mmol/L Carbon Dioxide (22-30) mmol/L BUN (7-17) mg/dL Creatinine (0.7-1.2) mg/dL Glucose (65-100) mg/dL POC Glucose 127 H 110 H 135 H (70-105)
[2019-05-02] MEDS: MONTELUKAST 10 MG TAB PO SCH (18:48)
[2019-05-02] MEDS: LORazepam 2 MG/ML VIAL IV PRN (20:54)
[2019-05-02] MEDS: PRAVASTATIN 40 MG TAB PO SCH (21:23)
[2019-05-02] MEDS ORDERED: LORazepam 2 MG/ML VIAL IV ONE (21:53)
[2019-05-03] MEDS: LORazepam 2 MG/ML VIAL IV PRN ×3 (03:40→16:59)
[2019-05-03] MEDS: methylPREDNISolone Sod Succinate 125 MG/2 ML INJ IV SCH ×3 (03:40→21:52)
[2019-05-03] MEDS: FUROSEMIDE 40 MG/4 ML INJ IV SCH ×2 (06:34→16:59)
[2019-05-03] MEDS: IPRATROPIUM/ALBUTEROL SULFATE 3 ML AMPUL.NEB IH SCH ×4 (08:16→21:46)
[2019-05-03] MEDS: BUDESONIDE 0.5 MG/2 ML NEBU IH SCH ×3 (08:16→21:47)
[2019-05-03] MEDS: ARFORMOTEROL 15 MCG/2 ML NEBU IH SCH ×2 (08:17→21:46)
--- NOTE | 2019-05-03 09:09 | XRay Report ---
CHEST - 1 VIEW INDICATION: Dyspnea COMPARISON: 04/30/2019 FINDINGS: Support devices: Stable support device positioning. Heart: Stable cardiomediastinal silhouette. Lungs/pleura: Clear lungs. Additional findings: None. IMPRESSION: Clear lungs. Signer Name: Hai Castillo MD Signed: 05/03/2019 9:04 AM Workstation Name: [id number]
[2019-05-03 10:23] LABS: ABG Base Excess -8.8 mmol/L (-2.0-3.0); ABG Methemoglobin 0.6 % (0.0-1.5); ABG Oxygen Saturation 94.5 % (95.0-99.0); ABG PCO2 56.5 mm Hg; ABG PO2 83.6 mm Hg (80.0-90.0)
[2019-05-03 10:28] LABS: ABG PH 7.166 pH Units (7.350-7.450)
[2019-05-03 10:42] LABS: Mean Corpuscular HGB Conc 31 % (30-34); Mean Corpuscular Volume 95 fl (79-97); Platelet Count 160 K/mm3 (140-440); Red Blood Count 4.23 M/mm3 (3.65-5.03); Red Cell Distribution Width 17.1 % (13.2-15.2)
[2019-05-03 10:43] LABS: Hematocrit 40.2 % (30.3-42.9); Hemoglobin 12.4 gm/dl (10.1-14.3)
[2019-05-03] MEDS ORDERED: SODIUM BICARB 8.4% 50 MEQ/50 ML SYRINGE IV ONE ×2 (10:56→12:00)
--- NOTE | 2019-05-03 11:01 | Progress Note ---
Assessment and Plan 78 y/o female with acute on chronic respiratory failure secondary to volume overload, resolved. 1. Decreased steroids to 40q8. Will continue this dose for now. 2. Given worsening acidemia, will stop Klonopin BID 3. Continue daily diuresis 4. Patient's anxiety is adding to her respiratory failure, without questions. Must control this to improve her therapy. Will consider buspar after HD to stop the acidemia insult. Subjective Date of service: 05/03/19 Principal diagnosis: Acute resp failure,COPd exacerbation Interval history: No acute events. This am somewhat more lethargic then normal. ABG shows slightly elevated CO2 but very acidotic. More tachypnic. Objective Vital Signs - 12hr 05/02/19 05/03/19 05/03/19 23:00 00:00 01:00 Temperature 96.0 F L Pulse Rate 98 H 92 H 91 H Pulse Rate [ Anterior Bilateral] Pulse Rate [ 97 H From Monitor] Respiratory 28 H 31 H 30 H Rate Respiratory Rate [Anterior Bilateral] Blood Pressure 160/76 158/89 158/89 O2 Sat by Pulse 97 99 100 Oximetry 05/03/19 05/03/19 05/03/19 02:00 03:00 04:00 Temperature Pulse Rate 92 H 90 87 Pulse Rate [ Anterior Bilateral] Pulse Rate [ 97 H From Monitor] Respiratory 27 H 26 H 21 Rate Respiratory Rate [Anterior Bilateral] Blood Pressure 158/89 158/89 133/67 O2 Sat by Pulse 99 100 99 Oximetry 05/03/19 05/03/19 05/03/19 04:10 05:00 05:16 Temperature 94.6 F L Pulse Rate 87 94 H Pulse Rate [ Anterior Bilateral] Pulse Rate [ From Monitor] Respiratory 26 H 22 Rate Respiratory Rate [Anterior Bilateral] Blood Pressure 133/67 O2 Sat by Pulse 99 99 Oximetry 05/03/19 05/03/19 05/03/19 06:00 08:50 09:00 Temperature Pulse Rate 82 Pulse Rate [ 82 Anterior Bilateral] Pulse Rate [ From Monitor] Respiratory 21 28 H Rate Respiratory 28 H Rate [Anterior Bilateral] Blood Pressure 133/67 O2 Sat by Pulse 100 99 Oximetry Constitutional: appears uncomfortable Eyes: non-icteric ENT: other (still on full face bipap mask) Neck: supple Effort: mildly labored Ascultation: Bilateral: rales CBC and BMP: 05/03/19 09:44 05/01/19 12:43 ABG, PT/INR, D-dimer: ABG ABG pH 7.166 pH Units (7.350-7.450) L* 05/03/19 10:13 ABG pCO2 56.5 mm Hg 05/03/19 10:13 ABG pO2 83.6 mm Hg (80.0-90.0) 05/03/19 10:13 ABG O2 Saturation 94.5 % (95.0-99.0) L 05/03/19 10:13 PT/INR, D-dimer PT 14.3 Sec. (12.2-14.9) 04/30/19 15:23 INR 1.10 (0.87-1.13) 04/30/19 15:23 Abnormal lab findings: Abnormal Labs 04/30/19 04/30/19 04/30/19 10:12 11:32 11:32 RDW 17.1 H Plt Count 84 L Lymph % (Auto) 10.9 L [place] % (Auto) 7.4 H Lymph # 0.8 L Seg Neutrophils % 80.6 H Seg Neuts % (Manual) Lymphocytes % (Manual) Lymphocytes # (Manual) PT 28.3 H INR 2.59 H APTT ABG pH 7.347 L ABG pO2 221.9 H ABG O2 Saturation 99.3 H ABG Base Excess -2.2 L ABG Hemoglobin Oxyhemoglobin Sodium Potassium Chloride Carbon Dioxide BUN Creatinine Glucose POC Glucose Troponin T NT-Pro-B Natriuret Pep Triglycerides Cholesterol LDL Cholesterol Direct HDL Cholesterol 04/30/19 04/30/19 04/30/19 14:20 15:23 18:05 RDW Plt Count Lymph % (Auto) [place] % (Auto) Lymph # Seg Neutrophils % Seg Neuts % (Manual) Lymphocytes % (Manual) Lymphocytes # (Manual) PT INR APTT 37.2 H ABG pH ABG pO2 79.2 L ABG O2 Saturation ABG Base Excess ABG Hemoglobin Oxyhemoglobin 94.4 L Sodium 146 H Potassium 3.2 L Chloride Carbon Dioxide BUN 39 H Creatinine 2.6 H Glucose POC Glucose Troponin T 0.117 H* NT-Pro-B Natriuret Pep 92166 H Triglycerides 178 H Cholesterol 303 H LDL Cholesterol Direct 190 H HDL Cholesterol 105 H 04/30/19 05/01/19 05/01/19 22:20 00:48 04:46 RDW Plt Count Lymph % (Auto) [place] % (Auto) Lymph # Seg Neutrophils % Seg Neuts % (Manual) Lymphocytes % (Manual) Lymphocytes # (Manual) PT INR APTT ABG pH ABG pO2 98.3 H ABG O2 Saturation ABG Base Excess ABG Hemoglobin Oxyhemoglobin Sodium Potassium Chloride Carbon Dioxide BUN Creatinine Glucose POC Glucose 108 H 142 H Troponin T NT-Pro-B Natriuret Pep Triglycerides Cholesterol LDL Cholesterol Direct HDL Cholesterol 05/01/19 05/01/19 05/01/19 12:43 12:43 13:27 RDW 16.4 H Plt Count 132 L Lymph % (Auto) [place] % (Auto) Lymph # Seg Neutrophils % Seg Neuts % (Manual) 95.0 H Lymphocytes % (Manual) 3.0 L Lymphocytes # (Manual) 0.2 L PT INR APTT ABG pH ABG pO2 ABG O2 Saturation ABG Base Excess ABG Hemoglobin Oxyhemoglobin Sodium Potassium Chloride 95.1 L Carbon Dioxide 21 L BUN 29 H Creatinine 3.2 H Glucose 137 H POC Glucose 114 H Troponin T NT-Pro-B Natriuret Pep Triglycerides Cholesterol LDL Cholesterol Direct HDL Cholesterol 05/01/19 05/02/19 05/02/19 18:41 00:01 05:40 RDW Plt Count Lymph % (Auto) [place] % (Auto) Lymph # Seg Neutrophils % Seg Neuts % (Manual) Lymphocytes % (Manual) Lymphocytes # (Manual) PT INR APTT ABG pH ABG pO2 ABG O2 Saturation ABG Base Excess ABG Hemoglobin Oxyhemoglobin Sodium Potassium Chloride Carbon Dioxide BUN Creatinine Glucose POC Glucose 127 H 110 H 135 H Troponin T NT-Pro-B Natriuret Pep Triglycerides Cholesterol LDL Cholesterol Direct HDL Cholesterol 05/02/19 05/02/19 05/03/19 13:06 19:14 09:44 RDW 17.1 H Plt Count Lymph % (Auto) [place] % (Auto) Lymph # Seg Neutrophils % Seg Neuts % (Manual) Lymphocytes % (Manual) Lymphocytes # (Manual) PT INR APTT ABG pH ABG pO2 ABG O2 Saturation ABG Base Excess ABG Hemoglobin Oxyhemoglobin Sodium Potassium Chloride Carbon Dioxide BUN Creatinine Glucose POC Glucose 152 H 117 H Troponin T NT-Pro-B Natriuret Pep Triglycerides Cholesterol LDL Cholesterol Direct HDL Cholesterol 05/03/19 10:13 RDW Plt Count Lymph % (Auto) [place] % (Auto) Lymph # Seg Neutrophils % Seg Neuts % (Manual) Lymphocytes % (Manual) Lymphocytes # (Manual) PT INR APTT ABG pH 7.166 L* ABG pO2 ABG O2 Saturation 94.5 L ABG Base Excess -8.8 L ABG Hemoglobin 11.6 L Oxyhemoglobin 92.4 L Sodium Potassium Chloride Carbon Dioxide BUN Creatinine Glucose POC Glucose Troponin T NT-Pro-B Natriuret Pep Triglycerides Cholesterol LDL Cholesterol Direct HDL Cholesterol
[2019-05-03 11:38] LABS: Calcium 8.7 mg/dL (8.4-10.2)
[2019-05-03] MEDS: VALSARTAN 160MG TAB PO SCH ×2 (15:26→23:43)
[2019-05-03] MEDS: amLODIPine 10 MG TAB PO SCH (15:26)
[2019-05-03] MEDS: ASPIRIN EC 81 MG TAB PO SCH (15:26)
[2019-05-03] MEDS: METOPROLOL TARTRATE 50 MG TAB PO SCH ×2 (15:27→23:47)
[2019-05-03] MEDS: FAMOTIDINE 10 MG TAB PO SCH ×2 (15:28→23:43)
[2019-05-03] MEDS: SODIUM BICARBONATE 650 MG TAB PO SCH ×2 (15:28→23:42)
[2019-05-03] MEDS: allopurinoL 100 MG TAB PO SCH (15:29)
--- NOTE | 2019-05-03 15:39 | Progress Note ---
Assessment and Plan Impression: * End stage renal disease * Acute on chronic hypoxic respiratory failure --wears 2-3L [place] oxygen at home * COPD exacerbation * Chronic diastolic heart failure * Hypertension * Anemia secondary to ESRD * Secondary hyperparathyroidism Plan: * Continue MWF schedule * UF as tolerated * Pulmonary recommendations noted * Dose medications for renal function * Renal diet Subjective Date of service: 05/03/19 Principal diagnosis: Acute resp failure,COPd exacerbation Interval history: Chart reviewed. No acute events overnight. Attempted to see patient - patient getting cleaned Objective - Exam Narrative Exam: Deferred - Vital Signs Vital signs: Vital Signs - 12hr 05/03/19 05/03/19 05/03/19 04:00 04:10 05:00 Temperature 94.6 F L Pulse Rate 87 87 Pulse Rate [ Anterior Bilateral] Pulse Rate [ 97 H From Monitor] Respiratory 21 26 H Rate Respiratory Rate [Anterior Bilateral] Blood Pressure 133/67 133/67 O2 Sat by Pulse 99 99 Oximetry O2 Sat by Pulse Oximetry [ Anterior Bilateral] 05/03/19 05/03/19 05/03/19 05:16 06:00 08:00 Temperature 96.5 F L Pulse Rate 94 H Pulse Rate [ Anterior Bilateral] Pulse Rate [ From Monitor] Respiratory 22 21 Rate Respiratory Rate [Anterior Bilateral] Blood Pressure 133/67 O2 Sat by Pulse 99 100 Oximetry O2 Sat by Pulse Oximetry [ Anterior Bilateral] 05/03/19 05/03/19 05/03/19 08:50 09:00 10:30 Temperature 97.2 F L Pulse Rate 82 110 H Pulse Rate [ 82 Anterior Bilateral] Pulse Rate [ From Monitor] Respiratory 28 H 35 H Rate Respiratory 28 H Rate [Anterior Bilateral] Blood Pressure 182/87 O2 Sat by Pulse 99 Oximetry O2 Sat by Pulse 98 Oximetry [ Anterior Bilateral] 05/03/19 05/03/19 05/03/19 10:45 11:00 11:15 Temperature Pulse Rate 87 94 H 108 H Pulse Rate [ Anterior Bilateral] Pulse Rate [ From Monitor] Respiratory Rate Respiratory Rate [Anterior Bilateral] Blood Pressure 172/84 155/84 155/87 O2 Sat by Pulse Oximetry O2 Sat by Pulse Oximetry [ Anterior Bilateral] 05/03/19 05/03/19 05/03/19 11:30 11:45 12:00 Temperature Pulse Rate 109 H 118 H 116 H Pulse Rate [ Anterior Bilateral] Pulse Rate [ From Monitor] Respiratory Rate Respiratory Rate [Anterior Bilateral] Blood Pressure 170/100 155/84 141/88 O2 Sat by Pulse Oximetry O2 Sat by Pulse Oximetry [ Anterior Bilateral] 05/03/19 05/03/19 05/03/19 12:15 12:30 12:45 Temperature Pulse Rate 116 H 110 H 120 H Pulse Rate [ Anterior Bilateral] Pulse Rate [ From Monitor] Respiratory Rate Respiratory Rate [Anterior Bilateral] Blood Pressure 180/104 137/59 130/94 O2 Sat by Pulse Oximetry O2 Sat by Pulse Oximetry [ Anterior Bilateral] 05/03/19 05/03/19 05/03/19 13:00 13:15 13:30 Temperature Pulse Rate 119 H 117 H 114 H Pulse Rate [ Anterior Bilateral] Pulse Rate [ From Monitor] Respiratory Rate Respiratory Rate [Anterior Bilateral] Blood Pressure 144/73 128/80 131/74 O2 Sat by Pulse Oximetry O2 Sat by Pulse Oximetry [ Anterior Bilateral] 05/03/19 05/03/19 05/03/19 13:45 14:00 14:15 Temperature Pulse Rate 109 H 110 H 108 H Pulse Rate [ Anterior Bilateral] Pulse Rate [ From Monitor] Respiratory Rate Respiratory Rate [Anterior Bilateral] Blood Pressure 113/67 123/65 129/65 O2 Sat by Pulse Oximetry O2 Sat by Pulse Oximetry [ Anterior Bilateral] 05/03/19 05/03/19 05/03/19 14:24 14:55 14:56 Temperature Pulse Rate 108 H Pulse Rate [ 108 H Anterior Bilateral] Pulse Rate [ From Monitor] Respiratory 24 Rate Respiratory 18 Rate [Anterior Bilateral] Blood Pressure O2 Sat by Pulse 98 Oximetry O2 Sat by Pulse 98 Oximetry [ Anterior Bilateral] - Lab 05/03/19 09:44 05/03/19 09:44 Most recent lab results ABG pH 7.166 pH Units (7.350-7.450) L* 05/03/19 10:13 ABG pCO2 56.5 mm Hg 05/03/19 10:13 ABG pO2 83.6 mm Hg (80.0-90.0) 05/03/19 10:13 ABG HCO3 20.0 mmol/L (20.0-26.0) 05/03/19 10:13 ABG O2 Saturation 94.5 % (95.0-99.0) L 05/03/19 10:13 Calcium 8.7 mg/dL (8.4-10.2) 05/03/19 09:44 Phosphorus 12.90 mg/dL (2.5-4.5) H 05/03/19 09:44 Magnesium 2.70 mg/dL (1.7-2.3) H 05/03/19 09:44 Medications & Allergies - Medications Allergies/Adverse Reactions: Allergies latex Allergy (Verified 02/05/19 13:51) Hives milk Allergy (Verified 02/05/19 13:51) Rash Home Medications: Home Medications Medication Instructions Recorded Confirmed Last Taken Type Metoprolol [Lopressor TAB] 50 mg PO BID #60 tablet 01/27/18 05/03/19 04/11/19 Rx Montelukast [Singulair] 10 mg PO QPM #30 tablet 01/27/18 05/03/19 04/11/19 Rx Pravastatin [Pravachol] 40 mg PO QHS #30 tablet 01/27/18 05/03/19 04/11/19 Rx allopurinoL [Zyloprim] 100 mg PO QDAY #30 tablet 01/27/18 05/03/19 04/11/19 Rx Famotidine [Pepcid] 20 mg PO BID 06/17/18 05/03/19 04/11/19 History Fluticasone/Vilanterol [Breo 1 each IH BID #1 blst.w.dev 12/31/18 05/03/19 04/11/19 Rx Ellipta 200-25 Mcg INH] Tiotropium [place] [Spiriva 4 gm IH DAILY #1 mist.inhal 12/31/18 05/03/19 04/11/19 Rx Respimat] Aspirin EC [Halfprin EC] 81 mg PO QDAY #30 tablet.dr 02/18/19 05/03/19 04/11/19 Rx ISOSORBIDE MONOnitrate [Imdur ER] 30 mg PO QDAY #30 tablet 02/18/19 05/03/19 Unknown Rx glipiZIDE [Glucotrol] 5 mg PO QDAY #30 tablet 02/18/19 05/03/19 Unknown Rx ALBUTEROL NEB's [Proventil 0.083% 2.5 mg IH Q4HRT PRN #30 nebu 04/15/19 05/03/19 Unknown Rx NEBS] Furosemide [Lasix] 20 mg PO QDAY #30 tablet 04/15/19 05/03/19 Unknown Rx Ipratropium/Albuterol Sulfate 2 puff IH BID #1 unit 04/15/19 05/03/19 Unknown Rx [Combivent Respimat] Olanzapine/Fluoxetine HCl [Symbyax 1 each PO QHS #30 capsule 04/15/19 05/03/19 Unknown Rx 3-25 mg] Sodium Bicarbonate 650 mg PO BID #60 tablet 04/15/19 05/03/19 Unknown Rx amLODIPine 10 mg PO DAILY #30 tablet 04/15/19 05/03/19 Unknown Rx cefUROXime [Ceftin] 250 mg PO Q12H #14 tablet 04/15/19 05/03/19 Unknown Rx predniSONE [Deltasone] 1 tab PO QDAY #91 tab 04/15/19 05/03/19 Unknown Rx traMADoL [Ultram 50 MG tab] 50 mg PO Q8H PRN #15 tab 04/15/19 05/03/19 04/11/19 Rx Active Medications: Generic Name Dose Route Start Last Admin Trade Name Freq PRN Reason Stop Dose Admin Acetaminophen 650 mg 04/30/19 17:44 Tylenol PO Q4H PRN Pain MILD(1-3)/Fever >100.5/HERRMANN Albuterol 2.5 mg 04/30/19 18:32 05/02/19 04:49 Proventil IH 2.5 mg Q3H PRN Administration Shortness Of Breath Albuterol/Ipratropium 1 ampul 04/30/19 20:00 05/03/19 14:53 Duoneb *Not For Prn Use* IH 1 ampul QIDRT KVNG Administration Allopurinol 100 mg 04/30/19 18:00 05/02/19 10:00 Zyloprim PO Not Given QDAY KVNG Amlodipine Besylate 10 mg 04/30/19 18:00 05/02/19 10:00 Amlodipine PO Not Given DAILY KVNG Arformoterol Tartrate 15 mcg 05/01/19 08:00 05/03/19 08:17 Brovana Nebu IH 15 mcg Q12HRT KVNG Administration Aspirin 81 mg 04/30/19 18:00 05/02/19 10:00 Halfprin Ec PO Not Given QDAY KVNG Budesonide 0.5 mg 05/03/19 11:00 05/03/19 14:53 Pulmicort IH Not Given Q12HRT [facility] Famotidine 10 mg 04/30/19 22:00 05/02/19 21:23 Pepcid PO Not Given BID [facility] Furosemide 80 mg 05/01/19 18:00 05/03/19 06:34 Lasix IV 80 mg 0600,1800 KVNG Administration Hydralazine HCl 5 mg 05/01/19 22:47 05/01/19 23:33 Apresoline IV 5 mg Q6HR PRN Administration SBP > 160 AND/OR DBP > 100 Sodium Chloride 100 mls @ 999 mls/hr 04/30/19 13:29 Nacl 0.9% IV ALBINO PRN Hypotension Levofloxacin/Dextrose 500 mg in 100 mls @ 100 mls/hr 05/02/19 19:00 05/02/19 18:54 Levaquin 500mg/100ml IV 05/10/19 19:59 100 mls/hr Q48H KVNG Administration Isosorbide Mononitrate 30 mg 04/30/19 18:00 05/02/19 10:00 Imdur PO Not Given QDAY [facility] Lorazepam 1 mg 05/02/19 11:08 05/03/19 11:15 Ativan IV 1 mg Q4H PRN Administration Anxiety Methylprednisolone Sodium Succinate 40 mg 05/02/19 11:08 05/03/19 03:40 Solu-Medrol IV 40 mg Q8H KVNG Administration Metoclopramide HCl 10 mg 04/30/19 17:44 Reglan IV Q6H PRN Nausea And Vomiting Metoprolol Tartrate 50 mg 04/30/19 22:00 05/02/19 21:23 Metoprolol PO Not Given BID [facility] Miscellaneous Medication 1 each 04/30/19 22:00 Olanzapine/Fluoxetine Hcl [Symbyax 3-25 Mg] PO QHS [facility] Montelukast Sodium 10 mg 04/30/19 19:00 05/02/19 18:48 Singulair PO Not Given QPM [facility] Ondansetron HCl 4 mg 04/30/19 17:44 Zofran IV Q3H PRN Nausea And Vomiting Pravastatin Sodium 40 mg 04/30/19 22:00 05/02/19 21:23 Pravachol PO Not Given QHS [facility] Sodium Bicarbonate 650 mg 04/30/19 22:00 05/02/19 21:24 Sodium Bicarbonate PO Not Given BID [facility] Sodium Chloride 10 ml 04/30/19 22:00 05/02/19 22:06 Sodium Chloride Flush Syringe 10 Ml IV 10 ml BID KVNG Administration Sodium Chloride 10 ml 04/30/19 17:44 05/01/19 03:55 Sodium Chloride Flush Syringe 10 Ml IV 10 ml PRN PRN Administration LINE FLUSH Valsartan 160 mg 04/30/19 22:00 05/02/19 21:23 Diovan PO Not Given BID [facility]
--- NOTE | 2019-05-03 17:31 | Progress Note ---
Assessment and Plan Assessment and plan: 78 yo AA woman with a history of TX, Diastolic CHF, CAD S/P CABG, DM, Asthma, OA, Anxiety disorder, Chronic Respiratory Failure on 2-3 L Home oxygen due to end stage COPD and ESRD on HD(M,W,F) who presented to [facility] ED with SOB and wheezing for the last 2 days. No improvement with home breathing treatments. Patient was found tachypneic and respiratory distress upon their arrival to the house. Patient received albuterol 7.5 mg, started initiation of mag 1 g, Decadron 20 mg IV, and required CPAP and additional oxygen support during transport to the hospital. Patient states she has a history of one intubation. The last 3 days she has been short of breath with wheezing and cough productive of yellow sputum. She is compliant with dialysis and is due today. Patient has very little urine output daily. Patient did complain of chest pain prior to arrival which has improved with CPAP support. Patient very SOB and wheezing during my exam.Patient has not been exposed to anyone with fever and Dry cough.No recent travewl.No exposure to foreign traveled patients. No fever or chills or Body aches Acute on chronic hypoxic respiratory failure Presently on BiPAP with 35% FiO2 Continue aggressive neb treatments Steroids being tapered Pulmonary consult note reviewed Continue management per Dr. Buck's recommendations COPD exacerbation: Continue neb treatments, antibiotics, steroids and oxygen supplement History of anxiety disorder Continue Klonopin End-stage renal disease: On hemodialysis Friday and Friday Nephrology note reviewed The high probability of a clinically significant, sudden or life threatening deterioration of the [] system(s) required my full and direct attention, intervention and personal management. The aggregate critical care time was [] minutes. This time is in addition to time spent performing reported procedures but includes the following: [] Data Review and interpretation [] Patient assessment and monitoring of vital signs [] Documentation [] Medication orders and management History Interval history: Patient seen and examined remains agitated on BiPAP. Unable to wean off of BiPAP Hospitalist Physical - Physical exam Narrative exam: On examination: Remains acutely short of breath on BiPAP very agitated HEENT: Normocephalic pupils are round reactive to light, throat cannot be assessed Neck: Supple no significant adenopathy no JVD Lungs: Diffuse bilateral expiratory rhonchi Heart: Regular rate and rhythm Abdomen: Soft, nontender Extremities: There is no leg edema - Constitutional Vitals: Temp Pulse Resp BP Pulse Ox 96.7 F L 106 H 31 H 178/86 94 05/03/19 16:00 05/03/19 16:00 05/03/19 16:00 05/03/19 16:00 05/03/19 16:00 General appearance: Present: mild distress, well-nourished ROB score - Rob Score Age > 65: (1) Yes Aspirin use within the Past 7 Days: (1) Yes 3 or more CAD Risk Factors: (1) Yes 2 or more Angina events in past 24 hrs: (0) No Known CAD with more than 50% Stenosis: (0) No Elevated Cardiac Markers: (0) No ST Deviation Greater than 0.5mm: (0) No ROB Score: 3 Results - Labs CBC & Chem 7: 05/04/19 03:51 05/04/19 03:51 Labs: Laboratory Last Values WBC 9.9 K/mm3 (4.5-11.0) 05/03/19 09:44 RBC 4.23 M/mm3 (3.65-5.03) 05/03/19 09:44 Hgb 12.4 gm/dl (10.1-14.3) 05/03/19 09:44 Hct 40.2 % (30.3-42.9) 05/03/19 09:44 MCV 95 fl (79-97) 05/03/19 09:44 MCH 29 pg (28-32) 05/03/19 09:44 MCHC 31 % (30-34) 05/03/19 09:44 RDW 17.1 % (13.2-15.2) H 05/03/19 09:44 Plt Count 160 K/mm3 (140-440) 05/03/19 09:44 Lymph % (Auto) 10.9 % (13.4-35.0) L 04/30/19 11:32 Story % (Auto) 7.4 % (0.0-7.3) H 04/30/19 11:32 Eos % (Auto) 0.4 % (0.0-4.3) 04/30/19 11:32 Baso % (Auto) 0.7 % (0.0-1.8) 04/30/19 11:32 Lymph # 0.8 K/mm3 (1.2-5.4) L 04/30/19 11:32 Story # 0.5 K/mm3 (0.0-0.8) 04/30/19 11:32 Eos # 0.0 K/mm3 (0.0-0.4) 04/30/19 11:32 Baso # 0.1 K/mm3 (0.0-0.1) 04/30/19 11:32 Add Manual Diff Complete 05/01/19 12:43 Total Counted 100 05/01/19 12:43 Seg Neutrophils % Cell Room Operator 05/01/19 12:43 Seg Neuts % (Manual) 95.0 % (40.0-70.0) H 05/01/19 12:43 Band Neutrophils % 0 % 05/01/19 12:43 Lymphocytes % (Manual) 3.0 % (13.4-35.0) L 05/01/19 12:43 Reactive Lymphs % (Man) 0 % 05/01/19 12:43 Monocytes % (Manual) 2.0 % (0.0-7.3) 05/01/19 12:43 Eosinophils % (Manual) 0 % (0.0-4.3) 05/01/19 12:43 Basophils % (Manual) 0 % (0.0-1.8) 05/01/19 12:43 Metamyelocytes % 0 % 05/01/19 12:43 Myelocytes % 0 % 05/01/19 12:43 Promyelocytes % 0 % 05/01/19 12:43 Blast Cells % 0 % 05/01/19 12:43 Nucleated RBC % Not Reportable 05/01/19 12:43 Seg Neutrophils # 6.0 K/mm3 (1.8-7.7) 04/30/19 11:32 Seg Neutrophils # Man 6.5 K/mm3 (1.8-7.7) 05/01/19 12:43 Band Neutrophils # 0.0 K/mm3 05/01/19 12:43 Lymphocytes # (Manual) 0.2 K/mm3 (1.2-5.4) L 05/01/19 12:43 Abs React Lymphs (Man) 0.0 K/mm3 05/01/19 12:43 Monocytes # (Manual) 0.1 K/mm3 (0.0-0.8) 05/01/19 12:43 Eosinophils # (Manual) 0.0 K/mm3 (0.0-0.4) 05/01/19 12:43 Basophils # (Manual) 0.0 K/mm3 (0.0-0.1) 05/01/19 12:43 Metamyelocytes # 0.0 K/mm3 05/01/19 12:43 Myelocytes # 0.0 K/mm3 05/01/19 12:43 Promyelocytes # 0.0 K/mm3 05/01/19 12:43 Blast Cells # 0.0 K/mm3 05/01/19 12:43 WBC Morphology Not Reportable 05/01/19 12:43 Hypersegmented Neuts Not Reportable 05/01/19 12:43 Hyposegmented Neuts Not Reportable 05/01/19 12:43 Hypogranular Neuts Not Reportable 05/01/19 12:43 Smudge Cells Not Reportable 05/01/19 12:43 Toxic Granulation Not Reportable 05/01/19 12:43 Toxic Vacuolation Not Reportable 05/01/19 12:43 Dohle Bodies Not Reportable 05/01/19 12:43 Pelger-Huet Anomaly Not Reportable 05/01/19 12:43 Ariel Rods Not Reportable 05/01/19 12:43 Platelet Estimate Consistent w auto 05/01/19 12:43 Clumped Platelets Not Reportable 05/01/19 12:43 Plt Clumps, EDTA Not Reportable 05/01/19 12:43 Large Platelets Not Reportable 05/01/19 12:43 Giant Platelets Rare 05/01/19 12:43 Platelet Satelliting Not Reportable 05/01/19 12:43 Plt Morphology Comment Not Reportable 05/01/19 12:43 RBC Morphology Not Reportable 05/01/19 12:43 Dimorphic RBCs Not Reportable 05/01/19 12:43 Polychromasia Not Reportable 05/01/19 12:43 Hypochromasia Not Reportable 05/01/19 12:43 Poikilocytosis Not Reportable 05/01/19 12:43 Anisocytosis Not Reportable 05/01/19 12:43 Microcytosis Not Reportable 05/01/19 12:43 Macrocytosis Not Reportable 05/01/19 12:43 Spherocytes Not Reportable 05/01/19 12:43 Pappenheimer Bodies Not Reportable 05/01/19 12:43 Sickle Cells Not Reportable 05/01/19 12:43 Target Cells Rare 05/01/19 12:43 Tear Drop Cells Few 05/01/19 12:43 Ovalocytes Not Reportable 05/01/19 12:43 Helmet Cells Not Reportable 05/01/19 12:43 Edwards-Lavallette Bodies Not Reportable 05/01/19 12:43 [place] Rings Not Reportable 05/01/19 12:43 [place] Cells Not Reportable 05/01/19 12:43 Bite Cells Not Reportable 05/01/19 12:43 Crenated Cell Not Reportable 05/01/19 12:43 Elliptocytes Few 05/01/19 12:43 Acanthocytes (Spur) Not Reportable 05/01/19 12:43 Rouleaux Not Reportable 05/01/19 12:43 Hemoglobin C Crystals Not Reportable 05/01/19 12:43 Schistocytes Not Reportable 05/01/19 12:43 Malaria parasites Not Reportable 05/01/19 12:43 [place] Bodies Not Reportable 05/01/19 12:43 Hem Pathologist Commnt No 05/01/19 12:43 PT 14.3 Sec. (12.2-14.9) 04/30/19 15:23 INR 1.10 (0.87-1.13) 04/30/19 15:23 APTT 37.2 Sec. (24.2-36.6) H 04/30/19 15:23 ABG pH 7.166 pH Units (7.350-7.450) L* 05/03/19 10:13 ABG pCO2 56.5 mm Hg 05/03/19 10:13 ABG pO2 83.6 mm Hg (80.0-90.0) 05/03/19 10:13 ABG HCO3 20.0 mmol/L (20.0-26.0) 05/03/19 10:13 ABG O2 Saturation 94.5 % (95.0-99.0) L 05/03/19 10:13 ABG O2 Content 15.2 (0.0-44) 05/03/19 10:13 ABG Base Excess -8.8 mmol/L (-2.0-3.0) L 05/03/19 10:13 ABG Hemoglobin 11.6 gm/dl (12.0-16.0) L 05/03/19 10:13 ABG Carboxyhemoglobin 1.5 % (0.0-5.0) 05/03/19 10:13 ABG Methemoglobin 0.6 % (0.0-1.5) 05/03/19 10:13 Oxyhemoglobin 92.4 % (95.0-99.0) L 05/03/19 10:13 FiO2 30 % 05/03/19 10:13 Sodium 139 mmol/L (137-145) 05/03/19 09:44 Potassium 6.2 mmol/L (3.6-5.0) H* D 05/03/19 09:44 Chloride 93.2 mmol/L (98-107) L 05/03/19 09:44 Carbon Dioxide 13 mmol/L (22-30) L D 05/03/19 09:44 Anion Gap 39 mmol/L 05/03/19 09:44 BUN 93 mg/dL (7-17) H 05/03/19 09:44 Creatinine 7.2 mg/dL (0.7-1.2) H D 05/03/19 09:44 Estimated GFR 7 ml/min 05/03/19 09:44 BUN/Creatinine Ratio 13 % 05/03/19 09:44 Glucose 138 mg/dL (65-100) H 05/03/19 09:44 POC Glucose 117 (70-105) H 05/02/19 19:14 Hemoglobin A1c 5.6 % (4-6) 04/30/19 11:32 Calcium 8.7 mg/dL (8.4-10.2) 05/03/19 09:44 Phosphorus 12.90 mg/dL (2.5-4.5) H 05/03/19 09:44 Magnesium 2.70 mg/dL (1.7-2.3) H 05/03/19 09:44 Total Bilirubin 0.40 mg/dL (0.1-1.2) 05/01/19 12:43 AST 39 units/L (5-40) 05/01/19 12:43 ALT 23 units/L (7-56) 05/01/19 12:43 Alkaline Phosphatase 102 units/L (35-129) 05/01/19 12:43 Total Creatine Kinase Cancelled 04/30/19 14:20 CK-MB (CK-2) Cancelled 04/30/19 14:20 CK-MB (CK-2) Rel Index Cancelled 04/30/19 14:20 Troponin T 0.117 ng/mL (0.00-0.029) H* 04/30/19 14:20 NT-Pro-B Natriuret Pep 04651 pg/mL (0-900) H 04/30/19 14:20 Total Protein 6.6 g/dL (6.3-8.2) 05/01/19 12:43 Albumin 4.0 g/dL (3.9-5) 05/01/19 12:43 Albumin/Globulin Ratio 1.5 % 05/01/19 12:43 Triglycerides 178 mg/dL (2-149) H 04/30/19 14:20 Cholesterol 303 mg/dL (50-199) H 04/30/19 14:20 LDL Cholesterol Direct 190 mg/dL (50-130) H 04/30/19 14:20 HDL Cholesterol 105 mg/dL (40-59) H 04/30/19 14:20 Cholesterol/HDL Ratio 2.88 % 04/30/19 14:20 Hepatitis A IgM Ab Non-reactive (NonReactive) 04/30/19 14:20 Hep Bs Antigen Non-reactive (Negative) 04/30/19 14:20 Hep B Core IgM Ab Non-reactive (NonReactive) 04/30/19 14:20 Hepatitis C Antibody Non-reactive (NonReactive) 04/30/19 14:20 [place]/IV: Voiding Method Bedpan IV Catheter Type [Right Upper INT / Saline Lock arm] IV Catheter Type [Right Hand] INT / Saline Lock IV Catheter Type [Left Forearm INT / Saline Lock ] IV Catheter Type [Right VAS Cath Internal Jugular] Active Medications - Current Medications Current Medications: Generic Name Dose Route Start Last Admin Trade Name Freq PRN Reason Stop Dose Admin Acetaminophen 650 mg 04/30/19 17:44 Tylenol PO Q4H PRN Pain MILD(1-3)/Fever >100.5/HERRMANN Albuterol 2.5 mg 04/30/19 18:32 05/02/19 04:49 Proventil IH 2.5 mg Q3H PRN Administration Shortness Of Breath Albuterol/Ipratropium 1 ampul 04/30/19 20:00 05/03/19 14:53 Duoneb *Not For Prn Use* IH 1 ampul QIDRT KVNG Administration Allopurinol 100 mg 04/30/19 18:00 05/03/19 15:29 Zyloprim PO Not Given QDAY KVNG Amlodipine Besylate 10 mg 04/30/19 18:00 05/03/19 15:26 Amlodipine PO Not Given DAILY [facility] Arformoterol Tartrate 15 mcg 05/01/19 08:00 05/03/19 08:17 Brovana Nebu IH 15 mcg Q12HRT KVNG Administration Aspirin 81 mg 04/30/19 18:00 05/03/19 15:26 Halfprin Ec PO Not Given QDAY KVNG Budesonide 0.5 mg 05/03/19 11:00 05/03/19 14:53 Pulmicort IH Not Given Q12HRT KVNG Famotidine 10 mg 04/30/19 22:00 05/03/19 15:28 Pepcid PO Not Given BID [facility] Furosemide 80 mg 05/01/19 18:00 05/03/19 16:59 Lasix IV 80 mg 0600,1800 KVNG Administration Hydralazine HCl 5 mg 05/01/19 22:47 05/01/19 23:33 Apresoline IV 5 mg Q6HR PRN Administration SBP > 160 AND/OR DBP > 100 Sodium Chloride 100 mls @ 999 mls/hr 04/30/19 13:29 Nacl 0.9% IV ALBINO PRN Hypotension Levofloxacin/Dextrose 500 mg in 100 mls @ 100 mls/hr 05/02/19 19:00 05/02/19 18:54 Levaquin 500mg/100ml IV 05/10/19 19:59 100 mls/hr Q48H KVNG Administration Isosorbide Mononitrate 30 mg 04/30/19 18:00 05/03/19 15:26 Imdur PO Not Given QDAY KVNG Lorazepam 1 mg 05/02/19 11:08 05/03/19 16:59 Ativan IV 1 mg Q4H PRN Administration Anxiety Methylprednisolone Sodium Succinate 40 mg 05/02/19 11:08 05/03/19 15:34 Solu-Medrol IV 40 mg Q8H KVNG Administration Metoclopramide HCl 10 mg 04/30/19 17:44 Reglan IV Q6H PRN Nausea And Vomiting Metoprolol Tartrate 50 mg 04/30/19 22:00 05/03/19 15:27 Metoprolol PO Not Given BID [facility] Miscellaneous Medication 1 each 04/30/19 22:00 Olanzapine/Fluoxetine Hcl [Symbyax 3-25 Mg] PO QHS [facility] Montelukast Sodium 10 mg 04/30/19 19:00 05/02/19 18:48 Singulair PO Not Given QPM [facility] Ondansetron HCl 4 mg 04/30/19 17:44 Zofran IV Q3H PRN Nausea And Vomiting Pravastatin Sodium 40 mg 04/30/19 22:00 05/02/19 21:23 Pravachol PO Not Given QHS [facility] Sodium Bicarbonate 650 mg 04/30/19 22:00 05/03/19 15:28 Sodium Bicarbonate PO Not Given BID [facility] Sodium Chloride 10 ml 04/30/19 22:00 05/03/19 15:28 Sodium Chloride Flush Syringe 10 Ml IV Not Given BID [facility] Sodium Chloride 10 ml 04/30/19 17:44 05/01/19 03:55 Sodium Chloride Flush Syringe 10 Ml IV 10 ml PRN PRN Administration LINE FLUSH Valsartan 160 mg 04/30/19 22:00 05/03/19 15:26 Diovan PO Not Given BID [facility]
[2019-05-03 20:14] LABS: Calcium 9.4 mg/dL (8.4-10.2)
[2019-05-03] MEDS: hydrALAZINE 20 MG/1 ML INJ IV PRN (23:38)
[2019-05-03] MEDS: PRAVASTATIN 40 MG TAB PO SCH (23:43)
[2019-05-03] MEDS: MONTELUKAST 10 MG TAB PO SCH (23:47)
[2019-05-04 05:11] LABS: Hematocrit 40.8 % (30.3-42.9); Hemoglobin 12.6 gm/dl (10.1-14.3); Mean Corpuscular HGB Conc 31 % (30-34); Mean Corpuscular Volume 94 fl (79-97); Platelet Count 170 K/mm3 (140-440); Red Blood Count 4.36 M/mm3 (3.65-5.03); Red Cell Distribution Width 16.6 % (13.2-15.2)
[2019-05-04 05:23] LABS: Calcium 9.5 mg/dL (8.4-10.2)
[2019-05-04] MEDS: methylPREDNISolone Sod Succinate 125 MG/2 ML INJ IV SCH ×4 (05:34→22:51)
[2019-05-04] MEDS: hydrALAZINE 20 MG/1 ML INJ IV PRN (05:38)
[2019-05-04] MEDS: FUROSEMIDE 40 MG/4 ML INJ IV SCH ×2 (05:48→17:03)
[2019-05-04] MEDS ORDERED: fentaNYL 100 MCG/2 ML INJ IV ONE ×2 (09:00)
[2019-05-04] MEDS ORDERED: MIDAZOLAM 2 MG/2 ML INJ IV ONE (09:00)
--- NOTE | 2019-05-04 09:19 | Event Note ---
Date: 05/04/19 patient's breathing is still not better, even after HD on yesterday. Spoke with Daughter, Kasia, over the phone. Will electively intubate patient. Using RSI, given 100 of Fentanyl 10 of Etomidate and 4 of versed. Intubated using the glide scope. 8.0 tube placed and secured. Good color change. Easy to bag. Awaiting CXR to confirm placement. No immediate post procedure complications were noted.
--- NOTE | 2019-05-04 09:25 | Progress Note ---
Assessment and Plan 78 y/o female with acute on chronic respiratory failure secondary to volume overload, resolved. 1. Will increase steroids to 60q6. Continue the other pulmonary treatments. 2. Will use Diprovan for sedation. 3. Continue daily diuresis and HD per renal 4. Started Buspar prior to intubation, will continue 5. Midline placement 6. NG tube placed. CCT 31 minutes. Subjective Date of service: 05/04/19 Principal diagnosis: Acute resp failure,COPd exacerbation Interval history: Electively Intubated this am secondary to work of breathing and respiratory distress. Spoke with Daughter over the phone. Objective Vital Signs - 12hr 05/03/19 05/03/19 05/03/19 22:00 22:30 23:00 Temperature Pulse Rate 114 H 120 H 120 H Pulse Rate [ From Monitor] Respiratory 32 H 34 H 35 H Rate Blood Pressure 152/92 165/94 171/96 O2 Sat by Pulse 98 96 97 Oximetry 05/03/19 05/03/19 05/03/19 23:30 23:36 23:38 Temperature 98.2 F Pulse Rate 111 H 120 H 121 H Pulse Rate [ From Monitor] Respiratory 35 H 33 H Rate Blood Pressure 187/91 180/98 187/91 O2 Sat by Pulse 97 96 Oximetry 05/03/19 05/03/19 05/04/19 23:43 23:47 00:00 Temperature Pulse Rate 114 H 114 H 119 H Pulse Rate [ 119 H From Monitor] Respiratory 35 H Rate Blood Pressure 152/92 152/92 171/96 O2 Sat by Pulse 96 Oximetry 05/04/19 05/04/19 05/04/19 00:30 01:00 01:30 Temperature Pulse Rate 119 H 117 H 118 H Pulse Rate [ From Monitor] Respiratory 40 H 37 H 38 H Rate Blood Pressure 160/91 166/80 135/82 O2 Sat by Pulse 96 96 96 Oximetry 05/04/19 05/04/19 05/04/19 01:49 02:00 02:30 Temperature Pulse Rate 113 H 118 H 118 H Pulse Rate [ From Monitor] Respiratory 38 H 35 H 38 H Rate Blood Pressure 135/82 152/89 141/76 O2 Sat by Pulse 95 95 96 Oximetry 05/04/19 05/04/19 05/04/19 03:00 03:30 03:41 Temperature 98.3 F Pulse Rate 117 H 115 H Pulse Rate [ From Monitor] Respiratory 39 H 25 H Rate Blood Pressure 138/80 150/80 O2 Sat by Pulse 96 96 Oximetry 05/04/19 05/04/19 05/04/19 04:00 04:30 05:00 Temperature Pulse Rate 116 H 117 H 118 H Pulse Rate [ 116 H From Monitor] Respiratory 22 36 H 36 H Rate Blood Pressure 157/87 154/85 169/90 O2 Sat by Pulse 98 97 96 Oximetry 05/04/19 05/04/19 05/04/19 05:30 05:38 06:00 Temperature Pulse Rate 119 H 116 H 118 H Pulse Rate [ From Monitor] Respiratory 44 H 37 H Rate Blood Pressure 158/99 158/100 163/89 O2 Sat by Pulse 97 96 Oximetry 05/04/19 08:00 Temperature 98.3 F Pulse Rate Pulse Rate [ From Monitor] Respiratory Rate Blood Pressure O2 Sat by Pulse Oximetry Constitutional: appears uncomfortable Eyes: non-icteric ENT: other (orally intubated and sedated.) Neck: supple Effort: mildly labored Ascultation: Bilateral: rales Percussion: Bilateral: not dull Cardiovascular: other (sinus tach) Gastrointestinal: normoactive bowel sounds Neurologic: unable to assess CBC and BMP: 05/04/19 03:51 05/04/19 03:51 ABG, PT/INR, D-dimer: ABG ABG pH 7.166 pH Units (7.350-7.450) L* 05/03/19 10:13 ABG pCO2 56.5 mm Hg 05/03/19 10:13 ABG pO2 83.6 mm Hg (80.0-90.0) 05/03/19 10:13 ABG O2 Saturation 94.5 % (95.0-99.0) L 05/03/19 10:13 PT/INR, D-dimer PT 14.3 Sec. (12.2-14.9) 04/30/19 15:23 INR 1.10 (0.87-1.13) 04/30/19 15:23 Abnormal lab findings: Abnormal Labs 04/30/19 04/30/19 04/30/19 10:12 11:32 11:32 WBC RDW 17.1 H Plt Count 84 L Lymph % (Auto) 10.9 L [place] % (Auto) 7.4 H Lymph # 0.8 L Seg Neutrophils % 80.6 H Seg Neuts % (Manual) Lymphocytes % (Manual) Lymphocytes # (Manual) PT 28.3 H INR 2.59 H APTT ABG pH 7.347 L ABG pO2 221.9 H ABG O2 Saturation 99.3 H ABG Base Excess -2.2 L ABG Hemoglobin Oxyhemoglobin Sodium Potassium Chloride Carbon Dioxide BUN Creatinine Glucose POC Glucose Phosphorus Magnesium Troponin T NT-Pro-B Natriuret Pep Triglycerides Cholesterol LDL Cholesterol Direct HDL Cholesterol 04/30/19 04/30/19 04/30/19 14:20 15:23 18:05 WBC RDW Plt Count Lymph % (Auto) [place] % (Auto) Lymph # Seg Neutrophils % Seg Neuts % (Manual) Lymphocytes % (Manual) Lymphocytes # (Manual) PT INR APTT 37.2 H ABG pH ABG pO2 79.2 L ABG O2 Saturation ABG Base Excess ABG Hemoglobin Oxyhemoglobin 94.4 L Sodium 146 H Potassium 3.2 L Chloride Carbon Dioxide BUN 39 H Creatinine 2.6 H Glucose POC Glucose Phosphorus Magnesium Troponin T 0.117 H* NT-Pro-B Natriuret Pep 73450 H Triglycerides 178 H Cholesterol 303 H LDL Cholesterol Direct 190 H HDL Cholesterol 105 H 04/30/19 05/01/19 05/01/19 22:20 00:48 04:46 WBC RDW Plt Count Lymph % (Auto) [place] % (Auto) Lymph # Seg Neutrophils % Seg Neuts % (Manual) Lymphocytes % (Manual) Lymphocytes # (Manual) PT INR APTT ABG pH ABG pO2 98.3 H ABG O2 Saturation ABG Base Excess ABG Hemoglobin Oxyhemoglobin Sodium Potassium Chloride Carbon Dioxide BUN Creatinine Glucose POC Glucose 108 H 142 H Phosphorus Magnesium Troponin T NT-Pro-B Natriuret Pep Triglycerides Cholesterol LDL Cholesterol Direct HDL Cholesterol 05/01/19 05/01/19 05/01/19 12:43 12:43 13:27 WBC RDW 16.4 H Plt Count 132 L Lymph % (Auto) [place] % (Auto) Lymph # Seg Neutrophils % Seg Neuts % (Manual) 95.0 H Lymphocytes % (Manual) 3.0 L Lymphocytes # (Manual) 0.2 L PT INR APTT ABG pH ABG pO2 ABG O2 Saturation ABG Base Excess ABG Hemoglobin Oxyhemoglobin Sodium Potassium Chloride 95.1 L Carbon Dioxide 21 L BUN 29 H Creatinine 3.2 H Glucose 137 H POC Glucose 114 H Phosphorus Magnesium Troponin T NT-Pro-B Natriuret Pep Triglycerides Cholesterol LDL Cholesterol Direct HDL Cholesterol 05/01/19 05/02/19 05/02/19 18:41 00:01 05:40 WBC RDW Plt Count Lymph % (Auto) [place] % (Auto) Lymph # Seg Neutrophils % Seg Neuts % (Manual) Lymphocytes % (Manual) Lymphocytes # (Manual) PT INR APTT ABG pH ABG pO2 ABG O2 Saturation ABG Base Excess ABG Hemoglobin Oxyhemoglobin Sodium Potassium Chloride Carbon Dioxide BUN Creatinine Glucose POC Glucose 127 H 110 H 135 H Phosphorus Magnesium Troponin T NT-Pro-B Natriuret Pep Triglycerides Cholesterol LDL Cholesterol Direct HDL Cholesterol 05/02/19 05/02/19 05/03/19 13:06 19:14 09:44 WBC RDW 17.1 H Plt Count Lymph % (Auto) [place] % (Auto) Lymph # Seg Neutrophils % Seg Neuts % (Manual) Lymphocytes % (Manual) Lymphocytes # (Manual) PT INR APTT ABG pH ABG pO2 ABG O2 Saturation ABG Base Excess ABG Hemoglobin Oxyhemoglobin Sodium Potassium Chloride Carbon Dioxide BUN Creatinine Glucose POC Glucose 152 H 117 H Phosphorus Magnesium Troponin T NT-Pro-B Natriuret Pep Triglycerides Cholesterol LDL Cholesterol Direct HDL Cholesterol 05/03/19 05/03/19 05/03/19 09:44 10:13 18:45 WBC RDW Plt Count Lymph % (Auto) [place] % (Auto) Lymph # Seg Neutrophils % Seg Neuts % (Manual) Lymphocytes % (Manual) Lymphocytes # (Manual) PT INR APTT ABG pH 7.166 L* ABG pO2 ABG O2 Saturation 94.5 L ABG Base Excess -8.8 L ABG Hemoglobin 11.6 L Oxyhemoglobin 92.4 L Sodium Potassium 6.2 H* D Chloride 93.2 L Carbon Dioxide 13 L D BUN 93 H Creatinine 7.2 H D Glucose 138 H POC Glucose 128 H Phosphorus 12.90 H Magnesium 2.70 H Troponin T NT-Pro-B Natriuret Pep Triglycerides Cholesterol LDL Cholesterol Direct HDL Cholesterol 05/03/19 05/04/19 05/04/19 19:40 01:04 03:51 WBC 11.2 H RDW 16.6 H Plt Count Lymph % (Auto) [place] % (Auto) Lymph # Seg Neutrophils % Seg Neuts % (Manual) Lymphocytes % (Manual) Lymphocytes # (Manual) PT INR APTT ABG pH ABG pO2 ABG O2 Saturation ABG Base Excess ABG Hemoglobin Oxyhemoglobin Sodium Potassium Chloride 92.7 L Carbon Dioxide BUN 26 H Creatinine 3.2 H D Glucose 129 H POC Glucose 134 H Phosphorus Magnesium Troponin T NT-Pro-B Natriuret Pep Triglycerides Cholesterol LDL Cholesterol Direct HDL Cholesterol 05/04/19 05/04/19 03:51 06:05 WBC RDW Plt Count Lymph % (Auto) [place] % (Auto) Lymph # Seg Neutrophils % Seg Neuts % (Manual) Lymphocytes % (Manual) Lymphocytes # (Manual) PT INR APTT ABG pH ABG pO2 ABG O2 Saturation ABG Base Excess ABG Hemoglobin Oxyhemoglobin Sodium Potassium Chloride 92.5 L Carbon Dioxide 19 L BUN 39 H Creatinine 4.3 H Glucose 148 H POC Glucose 138 H Phosphorus Magnesium Troponin T NT-Pro-B Natriuret Pep Triglycerides Cholesterol LDL Cholesterol Direct HDL Cholesterol
[2019-05-04] MEDS ORDERED: LIP THERAPY VASELINE TP PRN (09:42)
[2019-05-04] MEDS ORDERED: MINERAL OIL/PETROLATUM, WHITE OPHTH OINT 3.5 GM OU PRN (09:42)
--- NOTE | 2019-05-04 10:15 | Progress Note ---
Assessment and Plan Impression: * End stage renal disease * Acute on chronic hypoxic respiratory failure --wears 2-3L [place] oxygen at home * COPD exacerbation * Chronic diastolic heart failure * Hypertension * Anemia secondary to ESRD * Secondary hyperparathyroidism Plan: * Continue MWF schedule * UF as tolerated * Vent management per pulmonary medicine * Dose medications for renal function * Epogen TIW prn * Nutrition per primary team Subjective Date of service: 05/04/19 Principal diagnosis: Acute resp failure,COPd exacerbation Interval history: Patient intubated this AM Objective - Vital Signs Vital signs: Vital Signs - 12hr 05/03/19 05/03/19 05/03/19 22:30 23:00 23:30 Temperature 98.2 F Pulse Rate 120 H 120 H 111 H Pulse Rate [ From Monitor] Respiratory 34 H 35 H 35 H Rate Blood Pressure 165/94 171/96 187/91 O2 Sat by Pulse 96 97 97 Oximetry 05/03/19 05/03/19 05/03/19 23:36 23:38 23:43 Temperature Pulse Rate 120 H 121 H 114 H Pulse Rate [ From Monitor] Respiratory 33 H Rate Blood Pressure 180/98 187/91 152/92 O2 Sat by Pulse 96 Oximetry 05/03/19 05/04/19 05/04/19 23:47 00:00 00:30 Temperature Pulse Rate 114 H 119 H 119 H Pulse Rate [ 119 H From Monitor] Respiratory 35 H 40 H Rate Blood Pressure 152/92 171/96 160/91 O2 Sat by Pulse 96 96 Oximetry 05/04/19 05/04/19 05/04/19 01:00 01:30 01:49 Temperature Pulse Rate 117 H 118 H 113 H Pulse Rate [ From Monitor] Respiratory 37 H 38 H 38 H Rate Blood Pressure 166/80 135/82 135/82 O2 Sat by Pulse 96 96 95 Oximetry 05/04/19 05/04/19 05/04/19 02:00 02:30 03:00 Temperature Pulse Rate 118 H 118 H 117 H Pulse Rate [ From Monitor] Respiratory 35 H 38 H 39 H Rate Blood Pressure 152/89 141/76 138/80 O2 Sat by Pulse 95 96 96 Oximetry 05/04/19 05/04/19 05/04/19 03:30 03:41 04:00 Temperature 98.3 F Pulse Rate 115 H 116 H Pulse Rate [ 116 H From Monitor] Respiratory 25 H 22 Rate Blood Pressure 150/80 157/87 O2 Sat by Pulse 96 98 Oximetry 05/04/19 05/04/19 05/04/19 04:30 05:00 05:30 Temperature Pulse Rate 117 H 118 H 119 H Pulse Rate [ From Monitor] Respiratory 36 H 36 H 44 H Rate Blood Pressure 154/85 169/90 158/99 O2 Sat by Pulse 97 96 97 Oximetry 05/04/19 05/04/19 05/04/19 05:38 06:00 08:00 Temperature 98.3 F Pulse Rate 116 H 118 H Pulse Rate [ From Monitor] Respiratory 37 H Rate Blood Pressure 158/100 163/89 O2 Sat by Pulse 96 Oximetry - General Appearance General appearance: intubated, frail EENT: ATNC Respiratory: Present: Clear to Ascultation Cardiology: regular, S1S2 Gastrointestinal: no tenderness, no distended Integumentary: no rash, cool/clammy Musculoskeletal: other (no edema) - Lab 05/04/19 03:51 05/04/19 03:51 Most recent lab results ABG pH 7.166 pH Units (7.350-7.450) L* 05/03/19 10:13 ABG pCO2 56.5 mm Hg 05/03/19 10:13 ABG pO2 83.6 mm Hg (80.0-90.0) 05/03/19 10:13 ABG HCO3 20.0 mmol/L (20.0-26.0) 05/03/19 10:13 ABG O2 Saturation 94.5 % (95.0-99.0) L 05/03/19 10:13 Calcium 9.5 mg/dL (8.4-10.2) 05/04/19 03:51 Phosphorus 12.90 mg/dL (2.5-4.5) H 05/03/19 09:44 Magnesium 2.70 mg/dL (1.7-2.3) H 05/03/19 09:44 Medications & Allergies - Medications Allergies/Adverse Reactions: Allergies latex Allergy (Verified 02/05/19 13:51) Hives milk Allergy (Verified 02/05/19 13:51) Rash Home Medications: Home Medications Medication Instructions Recorded Confirmed Last Taken Type Metoprolol [Lopressor TAB] 50 mg PO BID #60 tablet 01/27/18 05/03/19 04/11/19 Rx Montelukast [Singulair] 10 mg PO QPM #30 tablet 01/27/18 05/03/19 04/11/19 Rx Pravastatin [Pravachol] 40 mg PO QHS #30 tablet 01/27/18 05/03/19 04/11/19 Rx allopurinoL [Zyloprim] 100 mg PO QDAY #30 tablet 01/27/18 05/03/19 04/11/19 Rx Famotidine [Pepcid] 20 mg PO BID 06/17/18 05/03/19 04/11/19 History Fluticasone/Vilanterol [Breo 1 each IH BID #1 blst.w.dev 12/31/18 05/03/19 04/11/19 Rx Ellipta 200-25 Mcg INH] Tiotropium [place] [Spiriva 4 gm IH DAILY #1 mist.inhal 12/31/18 05/03/19 04/11/19 Rx Respimat] Aspirin EC [Halfprin EC] 81 mg PO QDAY #30 tablet. 02/18/19 05/03/19 04/11/19 Rx ISOSORBIDE MONOnitrate [Imdur ER] 30 mg PO QDAY #30 tablet 02/18/19 05/03/19 Unknown Rx glipiZIDE [Glucotrol] 5 mg PO QDAY #30 tablet 02/18/19 05/03/19 Unknown Rx ALBUTEROL NEB's [Proventil 0.083% 2.5 mg IH Q4HRT PRN #30 nebu 04/15/19 05/03/19 Unknown Rx NEBS] Furosemide [Lasix] 20 mg PO QDAY #30 tablet 04/15/19 05/03/19 Unknown Rx Ipratropium/Albuterol Sulfate 2 puff IH BID #1 unit 04/15/19 05/03/19 Unknown Rx [Combivent Respimat] Olanzapine/Fluoxetine HCl [Symbyax 1 each PO QHS #30 capsule 04/15/19 05/03/19 Unknown Rx 3-25 mg] Sodium Bicarbonate 650 mg PO BID #60 tablet 04/15/19 05/03/19 Unknown Rx amLODIPine 10 mg PO DAILY #30 tablet 04/15/19 05/03/19 Unknown Rx cefUROXime [Ceftin] 250 mg PO Q12H #14 tablet 04/15/19 05/03/19 Unknown Rx predniSONE [Deltasone] 1 tab PO QDAY #91 tab 04/15/19 05/03/19 Unknown Rx traMADoL [Ultram 50 MG tab] 50 mg PO Q8H PRN #15 tab 04/15/19 05/03/19 04/11/19 Rx Active Medications: Generic Name Dose Route Start Last Admin Trade Name Freq PRN Reason Stop Dose Admin Acetaminophen 650 mg 04/30/19 17:44 Tylenol PO Q4H PRN Pain MILD(1-3)/Fever >100.5/HERRMANN Albuterol 2.5 mg 04/30/19 18:32 05/02/19 04:49 Proventil IH 2.5 mg Q3H PRN Administration Shortness Of Breath Albuterol/Ipratropium 1 ampul 04/30/19 20:00 05/03/19 21:46 Duoneb *Not For Prn Use* IH 1 ampul QIDRT KVNG Administration Allopurinol 100 mg 04/30/19 18:00 05/03/19 15:29 Zyloprim PO Not Given QDAY KVNG Amlodipine Besylate 10 mg 04/30/19 18:00 05/03/19 15:26 Amlodipine PO Not Given DAILY KVNG Arformoterol Tartrate 15 mcg 05/01/19 08:00 05/03/19 21:46 Brovana Nebu IH 15 mcg Q12HRT KVNG Administration Aspirin 81 mg 04/30/19 18:00 05/03/19 15:26 Halfprin Ec PO Not Given QDAY KVNG Budesonide 0.5 mg 05/03/19 11:00 05/03/19 21:47 Pulmicort IH 0.5 mg Q12HRT KVNG Administration Buspirone HCl 15 mg 05/04/19 10:00 Buspar PO BID K[facility]NG Famotidine 10 mg 04/30/19 22:00 05/03/19 23:43 Pepcid PO Not Given BID K[facility]NG Furosemide 80 mg 05/01/19 18:00 05/04/19 05:48 Lasix IV 80 mg 0600,1800 K[facility]NG Administration Hydralazine HCl 5 mg 05/01/19 22:47 05/04/19 05:38 Apresoline IV 5 mg Q6HR PRN Administration SBP > 160 AND/OR DBP > 100 Hydrophilic Ointment 1 applic 05/04/19 09:42 Vaseline Lip Therapy TP Q2HR PRN Dry Lips Sodium Chloride 100 mls @ 999 mls/hr 04/30/19 13:29 Nacl 0.9% IV ALBINO PRN Hypotension Levofloxacin/Dextrose 500 mg in 100 mls @ 100 mls/hr 05/02/19 19:00 05/02/19 18:54 Levaquin 500mg/100ml IV 05/10/19 19:59 100 mls/hr Q48H K[facility]NG Administration Propofol 1,000 mg in 100 mls @ 1.482 mls/hr 05/04/19 09:00 Diprivan 10 Mg/Ml IV TITR K[facility]NG Protocol 5 MCG/KG/MIN Isosorbide Dinitrate 10 mg 05/04/19 14:00 Isordil Titradose PO Q8HR [facility] Lorazepam 1 mg 05/02/19 11:08 05/03/19 16:59 Ativan IV 1 mg Q4H PRN Administration Anxiety Methylprednisolone Sodium Succinate 60 mg 05/04/19 09:00 Solu-Medrol IV Q6H [facility] Metoclopramide HCl 10 mg 04/30/19 17:44 Reglan IV Q6H PRN Nausea And Vomiting Metoprolol Tartrate 50 mg 04/30/19 22:00 05/03/19 23:47 Metoprolol PO Not Given BID [facility] Miscellaneous Medication 1 each 04/30/19 22:00 Olanzapine/Fluoxetine Hcl [Symbyax 3-25 Mg] PO QHS [facility] Montelukast Sodium 10 mg 04/30/19 19:00 05/03/19 23:47 Singulair PO Not Given QPM [facility] Multi-Ingred Cream/Lotion/Oil/Oint 1 applic 05/04/19 09:42 Artificial Tears Ophth Oint OU Q4HR PRN Dry Eye(s) Ondansetron HCl 4 mg 04/30/19 17:44 Zofran IV Q3H PRN Nausea And Vomiting Pravastatin Sodium 40 mg 04/30/19 22:00 05/03/19 23:43 Pravachol PO Not Given QHS [facility] Sodium Bicarbonate 650 mg 04/30/19 22:00 05/03/19 23:42 Sodium Bicarbonate PO Not Given BID [facility] Sodium Chloride 10 ml 04/30/19 22:00 05/03/19 21:53 Sodium Chloride Flush Syringe 10 Ml IV 10 ml BID [facility] Administration Sodium Chloride 10 ml 04/30/19 17:44 05/01/19 03:55 Sodium Chloride Flush Syringe 10 Ml IV 10 ml PRN PRN Administration LINE FLUSH Valsartan 160 mg 04/30/19 22:00 05/03/19 23:43 Diovan PO Not Given BID [facility]
--- NOTE | 2019-05-04 10:25 | XRay Report ---
CHEST 1 VIEW 05/04/2019 9:17 AM INDICATION / CLINICAL INFORMATION: ET tube placement. COMPARISON: One view of the chest from 05/03/2019. FINDINGS: SUPPORT DEVICES: Stable right internal jugular vein PermCath. An ET tube has been placed with the tip located 5 cm above the dat. An esophagogastric tube has been placed with the most distal visualiz ed portion projecting over the gastric fundus. The tip of that tube is not seen. HEART / MEDIASTINUM: Stable. LUNGS / PLEURA: No significant pulmonary or pleural abnormality. No pneumothorax. ADDITIONAL FINDINGS: No significant additional findings. IMPRESSION: 1. No acute abnormality of the chest. 2. ET and esophagogastric tubes as above. Signer Name: Geo Rasmussen MD Signed: 05/04/2019 10:21 AM Workstation Name: [id number]
--- NOTE | 2019-05-04 10:26 | XRay Report ---
ABDOMEN 1 VIEW INDICATION: NGT placement. COMPARISON: No relevant prior imaging study available. FINDINGS: A nasogastric tube tip appears to be within the distal stomach at the pylorus. Normal bowel gas patte rn. IMPRESSION: 1. Satisfactory NG tube placement.. Signer Name: Mo Prieto MD Signed: 05/04/2019 10:22 AM Workstation Name: [id number]
--- NOTE | 2019-05-04 10:28 | XRay Report ---
ABDOMEN 1 VIEW INDICATION: NGT. COMPARISON: No relevant prior imaging study available. FINDINGS: A nasogastric tube tip appears to be in the distal stomach in satisfactory position. Normal gas patte rn. IMPRESSION: 1. Satisfactory NG tube placement.. Signer Name: Mo Prieto MD Signed: 05/04/2019 10:24 AM Workstation Name: [id number]
[2019-05-04] MEDS: VALSARTAN 160MG TAB PO SCH ×2 (11:20→22:54)
[2019-05-04] MEDS: ASPIRIN EC 81 MG TAB PO SCH (11:21)
[2019-05-04] MEDS: FAMOTIDINE 10 MG TAB PO SCH ×2 (11:21→22:55)
[2019-05-04] MEDS: SODIUM BICARBONATE 650 MG TAB PO SCH ×2 (11:21→22:54)
[2019-05-04] MEDS: METOPROLOL TARTRATE 50 MG TAB PO SCH ×2 (11:21→22:53)
[2019-05-04] MEDS: allopurinoL 100 MG TAB PO SCH (11:21)
[2019-05-04] MEDS: amLODIPine 10 MG TAB PO SCH (11:22)
[2019-05-04 12:17] LABS: ABG Base Excess -3.4 mmol/L (-2.0-3.0); ABG HCO3 21.5 mmol/L (20.0-26.0); ABG Methemoglobin 0.6 % (0.0-1.5); ABG Oxygen Saturation 96.5 % (95.0-99.0); ABG PCO2 38.3 mm Hg; ABG PH 7.368 pH Units (7.350-7.450); ABG PO2 83.5 mm Hg (80.0-90.0)
[2019-05-04] MEDS: IPRATROPIUM/ALBUTEROL SULFATE 3 ML AMPUL.NEB IH SCH ×3 (13:28→19:49)
[2019-05-04] MEDS: BUDESONIDE 0.5 MG/2 ML NEBU IH SCH ×2 (13:28→19:49)
[2019-05-04] MEDS: ARFORMOTEROL 15 MCG/2 ML NEBU IH SCH ×2 (13:28→19:49)
[2019-05-04] MEDS: ISOSORBIDE DINITRATE 10 MG TAB PO SCH ×2 (14:23→22:53)
[2019-05-04] MEDS: busPIRone 10 MG TAB PO SCH ×2 (14:23→22:52)
[2019-05-04] MEDS ORDERED: SIMPLE SYRUP 15 ML FEEDTUBE PRN ×2 (14:58)
[2019-05-04] MEDS ORDERED: LIPASE 10,500/PROTEASE 25,000/AMYLASE 43,750 (UNITS) DR CAP FEEDTUBE PRN (14:58)
[2019-05-04] MEDS ORDERED: SODIUM BICARBONATE 325 MG TAB FEEDTUBE PRN (14:58)
[2019-05-04] MEDS: MONTELUKAST 10 MG TAB PO SCH (17:02)
--- NOTE | 2019-05-04 18:30 | Progress Note ---
Assessment and Plan Assessment and plan: 78 yo AA woman with a history of SC, Diastolic CHF, CAD S/P CABG, DM, Asthma, OA, Anxiety disorder, Chronic Respiratory Failure on 2-3 L Home oxygen due to end stage COPD and ESRD on HD(M,W,F) who presented to [facility] ED with SOB and wheezing for the last 2 days. No improvement with home breathing treatments. Patient was found tachypneic and respiratory distress upon their arrival to the house. Patient received albuterol 7.5 mg, started initiation of mag 1 g, Decadron 20 mg IV, and required CPAP and additional oxygen support during transport to the hospital. Patient states she has a history of one intubation. The last 3 days she has been short of breath with wheezing and cough productive of yellow sputum. She is compliant with dialysis and is due today. Patient has very little urine output daily. Patient did complain of chest pain prior to arrival which has improved with CPAP support. Patient very SOB and wheezing during my exam.Patient has not been exposed to anyone with fever and Dry cough.No recent travel.No exposure to foreign traveled patients. No fever or chills or Body aches Acute on chronic hypoxic respiratory failure Now placed on Mechanical ventilation Continue aggressive neb treatments Steroids being tapered Pulmonary consult note reviewed Continue management per Dr. Buck's recommendations COPD exacerbation: Continue neb treatments, antibiotics, steroids and oxygen supplement History of anxiety disorder Continue Candy End-stage renal disease: On hemodialysis Friday and Friday Nephrology note reviewed The high probability of a clinically significant, sudden or life threatening deterioration of the [pulmonary] system(s) required my full and direct attention, intervention and personal management. The aggregate critical care time was [35] minutes. This time is in addition to time spent performing reported procedures but includes the following: [x] Data Review and interpretation [x] Patient assessment and monitoring of vital signs [x] Documentation [x] Medication orders and management History Interval history: Patient seen and examined required intubation this morning and stable at this time Hospitalist Physical - Physical exam Narrative exam: On examination: Remains acutely short of breath on BiPAP very agitated HEENT: Normocephalic pupils are round reactive to light, throat cannot be assessed Neck: Supple no significant adenopathy no JVD Lungs: Diffuse bilateral expiratory rhonchi Heart: Regular rate and rhythm Abdomen: Soft, nontender Extremities: There is no leg edema - Constitutional Vitals: Temp Pulse Resp BP Pulse Ox 98.3 F 97 H 29 H 132/74 96 05/04/19 16:00 05/04/19 18:23 05/04/19 18:00 05/04/19 18:23 05/04/19 18:23 General appearance: Present: mild distress, well-nourished ROB score - Rob Score Age > 65: (1) Yes Aspirin use within the Past 7 Days: (1) Yes 3 or more CAD Risk Factors: (1) Yes 2 or more Angina events in past 24 hrs: (0) No Known CAD with more than 50% Stenosis: (0) No Elevated Cardiac Markers: (0) No ST Deviation Greater than 0.5mm: (0) No ROB Score: 3 Results - Labs CBC & Chem 7: 05/04/19 03:51 05/04/19 03:51 Labs: Laboratory Last Values WBC 11.2 K/mm3 (4.5-11.0) H 05/04/19 03:51 RBC 4.36 M/mm3 (3.65-5.03) 05/04/19 03:51 Hgb 12.6 gm/dl (10.1-14.3) 05/04/19 03:51 Hct 40.8 % (30.3-42.9) 05/04/19 03:51 MCV 94 fl (79-97) 05/04/19 03:51 MCH 29 pg (28-32) 05/04/19 03:51 MCHC 31 % (30-34) 05/04/19 03:51 RDW 16.6 % (13.2-15.2) H 05/04/19 03:51 Plt Count 170 K/mm3 (140-440) 05/04/19 03:51 Lymph % (Auto) 10.9 % (13.4-35.0) L 04/30/19 11:32 [place] % (Auto) 7.4 % (0.0-7.3) H 04/30/19 11:32 Eos % (Auto) 0.4 % (0.0-4.3) 04/30/19 11:32 Baso % (Auto) 0.7 % (0.0-1.8) 04/30/19 11:32 Lymph # 0.8 K/mm3 (1.2-5.4) L 04/30/19 11:32 [place] # 0.5 K/mm3 (0.0-0.8) 04/30/19 11:32 Eos # 0.0 K/mm3 (0.0-0.4) 04/30/19 11:32 Baso # 0.1 K/mm3 (0.0-0.1) 04/30/19 11:32 Add Manual Diff Complete 05/01/19 12:43 Total Counted 100 05/01/19 12:43 Seg Neutrophils % Moving Picture Producer 05/01/19 12:43 Seg Neuts % (Manual) 95.0 % (40.0-70.0) H 05/01/19 12:43 Band Neutrophils % 0 % 05/01/19 12:43 Lymphocytes % (Manual) 3.0 % (13.4-35.0) L 05/01/19 12:43 Reactive Lymphs % (Man) 0 % 05/01/19 12:43 Monocytes % (Manual) 2.0 % (0.0-7.3) 05/01/19 12:43 Eosinophils % (Manual) 0 % (0.0-4.3) 05/01/19 12:43 Basophils % (Manual) 0 % (0.0-1.8) 05/01/19 12:43 Metamyelocytes % 0 % 05/01/19 12:43 Myelocytes % 0 % 05/01/19 12:43 Promyelocytes % 0 % 05/01/19 12:43 Blast Cells % 0 % 05/01/19 12:43 Nucleated RBC % Not Reportable 05/01/19 12:43 Seg Neutrophils # 6.0 K/mm3 (1.8-7.7) 04/30/19 11:32 Seg Neutrophils # Man 6.5 K/mm3 (1.8-7.7) 05/01/19 12:43 Band Neutrophils # 0.0 K/mm3 05/01/19 12:43 Lymphocytes # (Manual) 0.2 K/mm3 (1.2-5.4) L 05/01/19 12:43 Abs React Lymphs (Man) 0.0 K/mm3 05/01/19 12:43 Monocytes # (Manual) 0.1 K/mm3 (0.0-0.8) 05/01/19 12:43 Eosinophils # (Manual) 0.0 K/mm3 (0.0-0.4) 05/01/19 12:43 Basophils # (Manual) 0.0 K/mm3 (0.0-0.1) 05/01/19 12:43 Metamyelocytes # 0.0 K/mm3 05/01/19 12:43 Myelocytes # 0.0 K/mm3 05/01/19 12:43 Promyelocytes # 0.0 K/mm3 05/01/19 12:43 Blast Cells # 0.0 K/mm3 05/01/19 12:43 WBC Morphology Not Reportable 05/01/19 12:43 Hypersegmented Neuts Not Reportable 05/01/19 12:43 Hyposegmented Neuts Not Reportable 05/01/19 12:43 Hypogranular Neuts Not Reportable 05/01/19 12:43 Smudge Cells Not Reportable 05/01/19 12:43 Toxic Granulation Not Reportable 05/01/19 12:43 Toxic Vacuolation Not Reportable 05/01/19 12:43 Dohle Bodies Not Reportable 05/01/19 12:43 Pelger-Huet Anomaly Not Reportable 05/01/19 12:43 Ariel Rods Not Reportable 05/01/19 12:43 Platelet Estimate Consistent w auto 05/01/19 12:43 Clumped Platelets Not Reportable 05/01/19 12:43 Plt Clumps, EDTA Not Reportable 05/01/19 12:43 Large Platelets Not Reportable 05/01/19 12:43 Giant Platelets Rare 05/01/19 12:43 Platelet Satelliting Not Reportable 05/01/19 12:43 Plt Morphology Comment Not Reportable 05/01/19 12:43 RBC Morphology Not Reportable 05/01/19 12:43 Dimorphic RBCs Not Reportable 05/01/19 12:43 Polychromasia Not Reportable 05/01/19 12:43 Hypochromasia Not Reportable 05/01/19 12:43 Poikilocytosis Not Reportable 05/01/19 12:43 Anisocytosis Not Reportable 05/01/19 12:43 Microcytosis Not Reportable 05/01/19 12:43 Macrocytosis Not Reportable 05/01/19 12:43 Spherocytes Not Reportable 05/01/19 12:43 Pappenheimer Bodies Not Reportable 05/01/19 12:43 Sickle Cells Not Reportable 05/01/19 12:43 Target Cells Rare 05/01/19 12:43 Tear Drop Cells Few 05/01/19 12:43 Ovalocytes Not Reportable 05/01/19 12:43 Helmet Cells Not Reportable 05/01/19 12:43 [place] Bodies Not Reportable 05/01/19 12:43 [place] Rings Not Reportable 05/01/19 12:43 [place] Cells Not Reportable 05/01/19 12:43 Bite Cells Not Reportable 05/01/19 12:43 Crenated Cell Not Reportable 05/01/19 12:43 Elliptocytes Few 05/01/19 12:43 Acanthocytes (Spur) Not Reportable 05/01/19 12:43 Rouleaux Not Reportable 05/01/19 12:43 Hemoglobin C Crystals Not Reportable 05/01/19 12:43 Schistocytes Not Reportable 05/01/19 12:43 Malaria parasites Not Reportable 05/01/19 12:43 [place] Bodies Not Reportable 05/01/19 12:43 Hem Pathologist Commnt No 05/01/19 12:43 PT 14.3 Sec. (12.2-14.9) 04/30/19 15:23 INR 1.10 (0.87-1.13) 04/30/19 15:23 APTT 37.2 Sec. (24.2-36.6) H 04/30/19 15:23 ABG pH 7.368 pH Units (7.350-7.450) 05/04/19 Unknown ABG pCO2 38.3 mm Hg 05/04/19 Unknown ABG pO2 83.5 mm Hg (80.0-90.0) 05/04/19 Unknown ABG HCO3 21.5 mmol/L (20.0-26.0) 05/04/19 Unknown ABG O2 Saturation 96.5 % (95.0-99.0) 05/04/19 Unknown ABG O2 Content 16.5 (0.0-44) 05/04/19 Unknown ABG Base Excess -3.4 mmol/L (-2.0-3.0) L 05/04/19 Unknown ABG Hemoglobin 12.4 gm/dl (12.0-16.0) 05/04/19 Unknown ABG Carboxyhemoglobin 1.5 % (0.0-5.0) 05/04/19 Unknown ABG Methemoglobin 0.6 % (0.0-1.5) 05/04/19 Unknown Oxyhemoglobin 94.5 % (95.0-99.0) L 05/04/19 Unknown FiO2 30 % 05/04/19 Unknown Sodium 142 mmol/L (137-145) 05/04/19 03:51 Potassium 4.5 mmol/L (3.6-5.0) 05/04/19 03:51 Chloride 92.5 mmol/L (98-107) L 05/04/19 03:51 Carbon Dioxide 19 mmol/L (22-30) L 05/04/19 03:51 Anion Gap 35 mmol/L 05/04/19 03:51 BUN 39 mg/dL (7-17) H 05/04/19 03:51 Creatinine 4.3 mg/dL (0.7-1.2) H 05/04/19 03:51 Estimated GFR 12 ml/min 05/04/19 03:51 BUN/Creatinine Ratio 9 % 05/04/19 03:51 Glucose 148 mg/dL (65-100) H 05/04/19 03:51 POC Glucose 190 (70-105) H 05/04/19 12:33 Hemoglobin A1c 5.6 % (4-6) 04/30/19 11:32 Calcium 9.5 mg/dL (8.4-10.2) 05/04/19 03:51 Phosphorus 12.90 mg/dL (2.5-4.5) H 05/03/19 09:44 Magnesium 2.70 mg/dL (1.7-2.3) H 05/03/19 09:44 Total Bilirubin 0.40 mg/dL (0.1-1.2) 05/01/19 12:43 AST 39 units/L (5-40) 05/01/19 12:43 ALT 23 units/L (7-56) 05/01/19 12:43 Alkaline Phosphatase 102 units/L (35-129) 05/01/19 12:43 Total Creatine Kinase Cancelled 04/30/19 14:20 CK-MB (CK-2) Cancelled 04/30/19 14:20 CK-MB (CK-2) Rel Index Cancelled 04/30/19 14:20 Troponin T 0.117 ng/mL (0.00-0.029) H* 04/30/19 14:20 NT-Pro-B Natriuret Pep 94568 pg/mL (0-900) H 04/30/19 14:20 Total Protein 6.6 g/dL (6.3-8.2) 05/01/19 12:43 Albumin 4.0 g/dL (3.9-5) 05/01/19 12:43 Albumin/Globulin Ratio 1.5 % 05/01/19 12:43 Triglycerides 178 mg/dL (2-149) H 04/30/19 14:20 Cholesterol 303 mg/dL (50-199) H 04/30/19 14:20 LDL Cholesterol Direct 190 mg/dL (50-130) H 04/30/19 14:20 HDL Cholesterol 105 mg/dL (40-59) H 04/30/19 14:20 Cholesterol/HDL Ratio 2.88 % 04/30/19 14:20 Hepatitis A IgM Ab Non-reactive (NonReactive) 04/30/19 14:20 Hep Bs Antigen Non-reactive (Negative) 04/30/19 14:20 Hep B Core IgM Ab Non-reactive (NonReactive) 04/30/19 14:20 Hepatitis C Antibody Non-reactive (NonReactive) 04/30/19 14:20 [place]/IV: Voiding Method Bedpan IV Catheter Type [Right Upper INT / Saline Lock arm] IV Catheter Type [Right Hand] INT / Saline Lock IV Catheter Type [Left Forearm INT / Saline Lock ] IV Catheter Type [Right VAS Cath Internal Jugular] Active Medications - Current Medications Current Medications: Generic Name Dose Route Start Last Admin Trade Name Freq PRN Reason Stop Dose Admin Acetaminophen 650 mg 04/30/19 17:44 Tylenol PO Q4H PRN Pain MILD(1-3)/Fever >100.5/HERRMANN Albuterol 2.5 mg 04/30/19 18:32 05/02/19 04:49 Proventil IH 2.5 mg Q3H PRN Administration Shortness Of Breath Albuterol/Ipratropium 1 ampul 04/30/19 20:00 05/04/19 13:28 Duoneb *Not For Prn Use* IH 1 ampul QIDRT KVNG Administration Allopurinol 100 mg 04/30/19 18:00 05/04/19 11:21 Zyloprim PO 100 mg QDAY [facility] Administration Lipase/Protease/Amylase 1 each 05/04/19 14:58 Pancreazivania Gould 10,500 Unit FEEDTUBE PRN PRN For Clogged Feeding Tube Arformoterol Tartrate 15 mcg 05/01/19 08:00 05/04/19 13:28 Brovana Nebu IH Not Given Q12HRT KVNG Aspirin 81 mg 04/30/19 18:00 05/04/19 11:21 Halfprin Ec PO 81 mg QDAY KVNG Administration Budesonide 0.5 mg 05/03/19 11:00 05/04/19 13:28 Pulmicort IH 0.5 mg Q12HRT KVNG Administration Buspirone HCl 15 mg 05/04/19 10:00 05/04/19 14:23 Buspar PO 15 mg BID KVNG Administration Famotidine 10 mg 04/30/19 22:00 05/04/19 11:21 Pepcid PO 10 mg BID KVNG Administration Furosemide 80 mg 05/01/19 18:00 05/04/19 17:03 Lasix IV 80 mg 0600,1800 [facility] Administration Heparin Sodium (Porcine) 5,000 unit 05/04/19 22:00 Heparin SUB-Q Q12HR [facility] Hydralazine HCl 5 mg 05/01/19 22:47 05/04/19 05:38 Apresoline IV 5 mg Q6HR PRN Administration SBP > 160 AND/OR DBP > 100 Hydrophilic Ointment 1 applic 05/04/19 09:42 Vaseline Lip Therapy TP Q2HR PRN Dry Lips Sodium Chloride 100 mls @ 999 mls/hr 04/30/19 13:29 Nacl 0.9% IV ALBINO PRN Hypotension Levofloxacin/Dextrose 500 mg in 100 mls @ 100 mls/hr 05/02/19 19:00 05/04/19 18:06 Levaquin 500mg/100ml IV 05/10/19 19:59 100 mls/hr Q48H KVNG Administration Propofol 1,000 mg in 100 mls @ 1.482 mls/hr 05/04/19 09:00 05/04/19 13:00 Diprivan 10 Mg/Ml IV 20 mcg/kg/min TITR KVNG 5.928 mls/hr Titration Protocol 5 MCG/KG/MIN Isosorbide Dinitrate 10 mg 05/04/19 14:00 05/04/19 14:23 Isordil Titradose PO 10 mg Q8HR KVNG Administration Lorazepam 1 mg 05/02/19 11:08 05/03/19 16:59 Ativan IV 1 mg Q4H PRN Administration Anxiety Methylprednisolone Sodium Succinate 60 mg 05/04/19 09:00 05/04/19 14:23 Solu-Medrol IV 60 mg Q6H KVNG Administration Metoprolol Tartrate 50 mg 04/30/19 22:00 05/04/19 11:21 Metoprolol PO 50 mg BID KVNG Administration Miscellaneous Medication 1 each 04/30/19 22:00 Olanzapine/Fluoxetine Hcl [Symbyax 3-25 Mg] PO QHS KVNG Montelukast Sodium 10 mg 04/30/19 19:00 05/04/19 17:02 Singulair PO 10 mg QPM KVNG Administration Multi-Ingred Cream/Lotion/Oil/Oint 1 applic 05/04/19 09:42 Artificial Tears Ophth Oint OU Q4HR PRN Dry Eye(s) Pravastatin Sodium 40 mg 04/30/19 22:00 05/03/19 23:43 Pravachol PO Not Given QHS KVNG Simple Syrup 15 ml 05/04/19 14:58 Simple Syrup FEEDTUBE PRN PRN Hypoglycemia Simple Syrup 30 ml 05/04/19 14:58 Simple Syrup FEEDTUBE PRN PRN Hypoglycemia Sodium Bicarbonate 650 mg 04/30/19 22:00 05/04/19 11:21 Sodium Bicarbonate PO 650 mg BID KVNG Administration Sodium Bicarbonate 325 mg 05/04/19 14:58 Sodium Bicarbonate FEEDTUBE PRN PRN For Clogged Feeding Tube Sodium Chloride 10 ml 04/30/19 22:00 05/04/19 11:23 Sodium Chloride Flush Syringe 10 Ml IV 10 ml BID KVNG Administration Sodium Chloride 10 ml 04/30/19 17:44 05/01/19 03:55 Sodium Chloride Flush Syringe 10 Ml IV 10 ml PRN PRN Administration LINE FLUSH Valsartan 160 mg 04/30/19 22:00 05/04/19 11:20 Diovan PO 160 mg BID KVNG Administration Nutrition/Malnutrition Assess - Dietary Evaluation Nutrition/Malnutrition Findings: Nutrition Notes Start: 05/04/19 11:09 Freq: Status: Active Protocol: Document 05/04/19 11:09 LM (Rec: 05/04/19 11:27 LM [email or web address]) Nutrition Notes Need for Assessment generated from: MD Order Initial or Follow up Assessment Current Diagnosis CKD (stage V CKD),COPD, Coronary Artery Disease, Diabetes,Heart Failure, Respiratory Failure Other Pertinent Diagnosis End stage COPD, SOB, asthma, OA, SC Current Diet NPO Labs/Tests Reviewed Pertinent Medications Lasix Height 5 ft Weight 49.4 kg [place] Body Weight (kg) 45.45 BMI 21.2 Weight change and time frame 14% wt loss in 1 month ( possibly fluid wt) Weight Status Underweight Subjective/Other Information MD consult to evaluate nutritional intake and for TF. Pt intubated today. Reviewed chart from 02/18/19. Pt weighed 57.6 kg with good appetite and intakes reported from pt. Wt change could be from fluid. Burn Absent Trauma Absent GI Symptoms None Difficulty In Swallowing Current % PO Negligible Minimum of two criteria Yes Interpretation of Weight Loss (severe) >5% in 1 month Fluid Accumulation Mild (non-severe) Reduced Project Safety Manager Strength Measurably Reduced (severe) #2 Nutrition Diagnosis Inadequate oral intake Etiology Mechanical vent As Evidenced by Signs and Symptoms Pt NPO #1 Nutrition Diagnosis Malnutrition Etiology COPD, chronic illness As Evidenced by Signs and Symptoms 14% wt loss in 1 month, fluid accumulation, weak manipulator operator strength Is patient on ventilator? Yes Is Patient Ambulatory and/or Out of Bed No REE-([facility]-confined to bed) [phone] Calculation Used for Recommendations [facility] Additional Notes Protein: 59-98g (1.2-2g/kg) Fluid: per MD Nutrition Intervention Change Diet Order: TF Nutrition Support: Nepro 1.8 at 30 ml/hr Flush 130 ml q4h Kcal 1,296 Protein (gm) 58 Fluid (mL) 523 Goal #1 Start TF start/tolerance Anticipated Discharge Needs: unable to determine at this time Follow-Up By: 05/06/19 Additional Comments F/U for TF start/tolerance
[2019-05-04] MEDS: PRAVASTATIN 40 MG TAB PO SCH (22:52)
[2019-05-04] MEDS: HEPARIN 5,000 UNIT/1 ML VIAL SUB-Q SCH (22:55)
[2019-05-05] MEDS: methylPREDNISolone Sod Succinate 125 MG/2 ML INJ IV SCH ×4 (02:33→22:12)
--- NOTE | 2019-05-05 02:53 | XRay Report ---
CHEST 1 VIEW INDICATION: follow up respiratory failure. COMPARISON: 05/04/2019 FINDINGS: SUPPORT DEVICES: Endotracheal tubes in good position. Hemodialysis catheters tip in superior vena cav a. Nasogastric tubes in place. HEART / MEDIASTINUM: No significant abnormality. LUNGS / PLEURA: No significant pulmonary or pleural abnormality. No pneumothorax. ADDITIONAL FINDINGS: IMPRESSION: 1. No acute cardiopulmonary disease Signer Name: Christopher Edward MD Signed: 05/05/2019 2:49 AM Workstation Name: [email or web address]
[2019-05-05 03:58] LABS: ABG Base Excess 0.3 mmol/L (-2.0-3.0); ABG HCO3 23.8 mmol/L (20.0-26.0); ABG Methemoglobin 0.7 % (0.0-1.5); ABG Oxygen Saturation 93.6 % (95.0-99.0); ABG PCO2 34.5 mm Hg; ABG PH 7.456 pH Units (7.350-7.450); ABG PO2 64.8 mm Hg (80.0-90.0)
[2019-05-05] MEDS: ISOSORBIDE DINITRATE 10 MG TAB PO SCH ×3 (06:28→21:22)
[2019-05-05] MEDS: FUROSEMIDE 40 MG/4 ML INJ IV SCH (06:28)
[2019-05-05] MEDS: ARFORMOTEROL 15 MCG/2 ML NEBU IH SCH ×2 (09:07→22:32)
[2019-05-05] MEDS: BUDESONIDE 0.5 MG/2 ML NEBU IH SCH ×2 (09:07→22:32)
[2019-05-05] MEDS: IPRATROPIUM/ALBUTEROL SULFATE 3 ML AMPUL.NEB IH SCH ×4 (09:08→22:32)
--- NOTE | 2019-05-05 09:25 | Progress Note ---
Assessment and Plan Impression: * End stage renal disease * Acute on chronic hypoxic respiratory failure --wears 2-3L NC oxygen at home * COPD exacerbation * Chronic diastolic heart failure * Hypertension * Anemia secondary to ESRD * Secondary hyperparathyroidism Plan: * HD today. Continue MWF schedule * UF as tolerated * Vent management per pulmonary medicine * Dose medications for renal function * Epogen TIW prn * Nutrition per primary team Subjective Date of service: 05/05/19 Principal diagnosis: Acute resp failure,COPd exacerbation Interval history: Patient remains intubated, sedated. No acute events overnight. Objective - Vital Signs Vital signs: Vital Signs - 12hr 05/04/19 05/04/19 05/04/19 21:30 22:00 22:30 Temperature Pulse Rate 113 H 102 H 103 H Pulse Rate [ Anterior Bilateral] Respiratory 29 H 30 H 28 H Rate Respiratory Rate [Anterior Bilateral] Blood Pressure 153/108 138/99 107/75 O2 Sat by Pulse 94 94 95 Oximetry 05/04/19 05/04/19 05/04/19 22:53 22:54 23:00 Temperature Pulse Rate 107 H 107 H 102 H Pulse Rate [ Anterior Bilateral] Respiratory 29 H Rate Respiratory Rate [Anterior Bilateral] Blood Pressure 107/75 107/75 109/85 O2 Sat by Pulse 96 Oximetry 05/04/19 05/04/19 05/04/19 23:20 23:30 23:48 Temperature Pulse Rate 103 H 100 H 108 H Pulse Rate [ Anterior Bilateral] Respiratory 29 H 29 H Rate Respiratory Rate [Anterior Bilateral] Blood Pressure 175/107 129/78 129/78 O2 Sat by Pulse 95 95 96 Oximetry 05/05/19 05/05/19 05/05/19 00:00 00:30 01:00 Temperature 100.0 F H Pulse Rate 103 H 107 H 109 H Pulse Rate [ Anterior Bilateral] Respiratory 29 H 29 H 31 H Rate Respiratory Rate [Anterior Bilateral] Blood Pressure 139/87 149/94 142/88 O2 Sat by Pulse 96 94 94 Oximetry 05/05/19 05/05/19 05/05/19 01:30 02:00 02:30 Temperature Pulse Rate 104 H 105 H 107 H Pulse Rate [ Anterior Bilateral] Respiratory 28 H 29 H 29 H Rate Respiratory Rate [Anterior Bilateral] Blood Pressure 125/75 132/85 125/75 O2 Sat by Pulse 94 95 94 Oximetry 05/05/19 05/05/19 05/05/19 03:00 03:18 03:30 Temperature Pulse Rate 110 H 103 H 101 H Pulse Rate [ Anterior Bilateral] Respiratory 33 H 28 H Rate Respiratory Rate [Anterior Bilateral] Blood Pressure 144/72 156/86 112/77 O2 Sat by Pulse 94 94 94 Oximetry 05/05/19 05/05/19 05/05/19 03:50 04:00 04:30 Temperature 100.1 F H Pulse Rate 95 H 92 H Pulse Rate [ Anterior Bilateral] Respiratory 28 H 28 H Rate Respiratory Rate [Anterior Bilateral] Blood Pressure 102/75 137/79 O2 Sat by Pulse 95 95 Oximetry 05/05/19 05/05/19 05/05/19 05:00 05:30 06:00 Temperature Pulse Rate 96 H 92 H 91 H Pulse Rate [ Anterior Bilateral] Respiratory 32 H 28 H 31 H Rate Respiratory Rate [Anterior Bilateral] Blood Pressure 137/79 112/73 123/72 O2 Sat by Pulse 94 94 94 Oximetry 05/05/19 05/05/19 05/05/19 06:28 06:30 07:00 Temperature Pulse Rate 93 H 95 H 99 H Pulse Rate [ Anterior Bilateral] Respiratory 16 27 H Rate Respiratory Rate [Anterior Bilateral] Blood Pressure 123/72 117/71 134/69 O2 Sat by Pulse 96 95 Oximetry 05/05/19 05/05/19 05/05/19 07:30 08:00 08:30 Temperature 99.3 F Pulse Rate 96 H 98 H 96 H Pulse Rate [ Anterior Bilateral] Respiratory 28 H 30 H 28 H Rate Respiratory Rate [Anterior Bilateral] Blood Pressure 133/77 127/79 117/79 O2 Sat by Pulse 96 96 96 Oximetry 05/05/19 05/05/19 05/05/19 09:01 09:09 09:10 Temperature Pulse Rate 98 H 104 H Pulse Rate [ 95 H Anterior Bilateral] Respiratory 29 H Rate Respiratory 32 H Rate [Anterior Bilateral] Blood Pressure 157/97 157/97 O2 Sat by Pulse 96 96 Oximetry - General Appearance General appearance: well-developed, well-nourished EENT: ATNC Respiratory: Present: Clear to Ascultation Cardiology: regular, S1S2 Gastrointestinal: normal, no tenderness, no distended Neurologic: other (sedated) Musculoskeletal: other (no edema) - Lab 05/04/19 03:51 05/04/19 03:51 Most recent lab results ABG pH 7.456 pH Units (7.350-7.450) H 05/05/19 03:45 ABG pCO2 34.5 mm Hg 05/05/19 03:45 ABG pO2 64.8 mm Hg (80.0-90.0) L 05/05/19 03:45 ABG HCO3 23.8 mmol/L (20.0-26.0) 05/05/19 03:45 ABG O2 Saturation 93.6 % (95.0-99.0) L 05/05/19 03:45 Calcium 9.5 mg/dL (8.4-10.2) 05/04/19 03:51 Phosphorus 12.90 mg/dL (2.5-4.5) H 05/03/19 09:44 Magnesium 2.70 mg/dL (1.7-2.3) H 05/03/19 09:44 Medications & Allergies - Medications Allergies/Adverse Reactions: Allergies latex Allergy (Verified 02/05/19 13:51) Hives milk Allergy (Verified 02/05/19 13:51) Rash Home Medications: Home Medications Medication Instructions Recorded Confirmed Last Taken Type Metoprolol [Lopressor TAB] 50 mg PO BID #60 tablet 01/27/18 05/03/19 04/11/19 Rx Montelukast [Singulair] 10 mg PO QPM #30 tablet 01/27/18 05/03/19 04/11/19 Rx Pravastatin [Pravachol] 40 mg PO QHS #30 tablet 01/27/18 05/03/19 04/11/19 Rx allopurinoL [Zyloprim] 100 mg PO QDAY #30 tablet 01/27/18 05/03/19 04/11/19 Rx Famotidine [Pepcid] 20 mg PO BID 06/17/18 05/03/19 04/11/19 History Fluticasone/Vilanterol [Breo 1 each IH BID #1 blst.w.dev 12/31/18 05/03/19 04/11/19 Rx Ellipta 200-25 Mcg INH] Tiotropium [place] [Spiriva 4 gm IH DAILY #1 mist.inhal 12/31/18 05/03/19 04/11/19 Rx Respimat] Aspirin EC [Halfprin EC] 81 mg PO QDAY #30 tablet. 02/18/19 05/03/19 04/11/19 Rx ISOSORBIDE MONOnitrate [Imdur ER] 30 mg PO QDAY #30 tablet 02/18/19 05/03/19 Unknown Rx glipiZIDE [Glucotrol] 5 mg PO QDAY #30 tablet 02/18/19 05/03/19 Unknown Rx ALBUTEROL NEB's [Proventil 0.083% 2.5 mg IH Q4HRT PRN #30 nebu 04/15/19 05/03/19 Unknown Rx NEBS] Furosemide [Lasix] 20 mg PO QDAY #30 tablet 04/15/19 05/03/19 Unknown Rx Ipratropium/Albuterol Sulfate 2 puff IH BID #1 unit 04/15/19 05/03/19 Unknown Rx [Combivent Respimat] Olanzapine/Fluoxetine HCl [Symbyax 1 each PO QHS #30 capsule 04/15/19 05/03/19 Unknown Rx 3-25 mg] Sodium Bicarbonate 650 mg PO BID #60 tablet 04/15/19 05/03/19 Unknown Rx amLODIPine 10 mg PO DAILY #30 tablet 04/15/19 05/03/19 Unknown Rx cefUROXime [Ceftin] 250 mg PO Q12H #14 tablet 04/15/19 05/03/19 Unknown Rx predniSONE [Deltasone] 1 tab PO QDAY #91 tab 04/15/19 05/03/19 Unknown Rx traMADoL [Ultram 50 MG tab] 50 mg PO Q8H PRN #15 tab 04/15/19 05/03/19 04/11/19 Rx Active Medications: Generic Name Dose Route Start Last Admin Trade Name Freq PRN Reason Stop Dose Admin Acetaminophen 650 mg 04/30/19 17:44 Tylenol PO Q4H PRN Pain MILD(1-3)/Fever >100.5/HERRMANN Albuterol 2.5 mg 04/30/19 18:32 05/02/19 04:49 Proventil IH 2.5 mg Q3H PRN Administration Shortness Of Breath Albuterol/Ipratropium 1 ampul 04/30/19 20:00 05/05/19 09:08 Duoneb *Not For Prn Use* IH Not Given QIDRT KVNG Allopurinol 100 mg 04/30/19 18:00 05/04/19 11:21 Zyloprim PO 100 mg QDAY KVNG Administration Lipase/Protease/Amylase 1 each 05/04/19 14:58 Pancrejessica Gould 10,500 Unit FEEDTUBE PRN PRN For Clogged Feeding Tube Arformoterol Tartrate 15 mcg 05/01/19 08:00 05/05/19 09:07 Brovana Nebu IH 15 mcg Q12HRT KVNG Administration Aspirin 81 mg 04/30/19 18:00 05/04/19 11:21 Halfprin Ec PO 81 mg QDAY KVNG Administration Budesonide 0.5 mg 05/03/19 11:00 05/05/19 09:07 Pulmicort IH 0.5 mg Q12HRT KVNG Administration Buspirone HCl 15 mg 05/04/19 10:00 05/04/19 22:52 Buspar PO 15 mg BID KVNG Administration Famotidine 10 mg 04/30/19 22:00 05/04/19 22:55 Pepcid PO 10 mg BID KVNG Administration Furosemide 80 mg 05/01/19 18:00 05/05/19 06:28 Lasix IV 80 mg 0600,1800 KVNG Administration Heparin Sodium (Porcine) 5,000 unit 05/04/19 22:00 05/04/19 22:55 Heparin SUB-Q 5,000 unit Q12HR KVNG Administration Hydralazine HCl 5 mg 05/01/19 22:47 05/04/19 05:38 Apresoline IV 5 mg Q6HR PRN Administration SBP > 160 AND/OR DBP > 100 Hydrophilic Ointment 1 applic 05/04/19 09:42 Vaseline Lip Therapy TP Q2HR PRN Dry Lips Sodium Chloride 100 mls @ 999 mls/hr 04/30/19 13:29 Nacl 0.9% IV ALBINO PRN Hypotension Levofloxacin/Dextrose 500 mg in 100 mls @ 100 mls/hr 05/02/19 19:00 05/04/19 18:06 Levaquin 500mg/100ml IV 05/10/19 19:59 100 mls/hr Q48H KVNG Administration Propofol 1,000 mg in 100 mls @ 1.482 mls/hr 05/04/19 09:00 05/05/19 02:33 Diprivan 10 Mg/Ml IV 20 mcg/kg/min TITR KVNG 5.928 mls/hr Administration Protocol 5 MCG/KG/MIN Isosorbide Dinitrate 10 mg 05/04/19 14:00 05/05/19 06:28 Isordil Titradose PO 10 mg Q8HR KVNG Administration Lorazepam 1 mg 05/02/19 11:08 05/03/19 16:59 Ativan IV 1 mg Q4H PRN Administration Anxiety Methylprednisolone Sodium Succinate 60 mg 05/04/19 09:00 05/05/19 02:33 Solu-Medrol IV 60 mg Q6H KVNG Administration Metoprolol Tartrate 50 mg 04/30/19 22:00 05/04/19 22:53 Metoprolol PO 50 mg BID KVNG Administration Miscellaneous Medication 1 each 04/30/19 22:00 Olanzapine/Fluoxetine Hcl [Symbyax 3-25 Mg] PO QHS KVNG Montelukast Sodium 10 mg 04/30/19 19:00 05/04/19 17:02 Singulair PO 10 mg QPM KVNG Administration Multi-Ingred Cream/Lotion/Oil/Oint 1 applic 05/04/19 09:42 Artificial Tears Ophth Oint OU Q4HR PRN Dry Eye(s) Pravastatin Sodium 40 mg 04/30/19 22:00 05/04/19 22:52 Pravachol PO 40 mg QHS KVNG Administration Simple Syrup 15 ml 05/04/19 14:58 Simple Syrup FEEDTUBE PRN PRN Hypoglycemia Simple Syrup 30 ml 05/04/19 14:58 Simple Syrup FEEDTUBE PRN PRN Hypoglycemia Sodium Bicarbonate 650 mg 04/30/19 22:00 05/04/19 22:54 Sodium Bicarbonate PO 650 mg BID KVNG Administration Sodium Bicarbonate 325 mg 05/04/19 14:58 Sodium Bicarbonate FEEDTUBE PRN PRN For Clogged Feeding Tube Sodium Chloride 10 ml 04/30/19 22:00 05/04/19 22:55 Sodium Chloride Flush Syringe 10 Ml IV 10 ml BID KVNG Administration Sodium Chloride 10 ml 04/30/19 17:44 05/01/19 03:55 Sodium Chloride Flush Syringe 10 Ml IV 10 ml PRN PRN Administration LINE FLUSH Valsartan 160 mg 04/30/19 22:00 05/04/19 22:54 Diovan PO 160 mg BID KVNG Administration
--- NOTE | 2019-05-05 09:48 | Progress Note ---
Assessment and Plan 78 y/o female with acute on chronic respiratory failure secondary to volume overload, resolved. 1. Continue steroids at 60q6 2. Will use Diprovan for sedation. Asked Nursing to achieve RASS of 0. Decreasing Diprovan now. Check Triglycerides tomorrow. 3. Continue daily diuresis and HD per renal. Placed rosa to see how much urin e, essentially anuric. Will remove rosa and stop lasix therapy. 4. Started Buspar prior to intubation, will continue 5. Midline placement, done 6. NG tube placed. 7. Guarded prognosis. Will given patient another 24-36 hours of rest on vent and then start PSV trials with hopes of extubation. CCT 31 minutes. Subjective Date of service: 05/05/19 Principal diagnosis: Acute resp failure,COPd exacerbation Interval history: DAy one of intubation. CXR stable. ABG stable. No fever. Has had 2 doses of IV abx given renal function (every other day). No family present but I did speak with daughter over the phone on yesterday prior to intubation. Objective Vital Signs - 12hr 05/04/19 05/04/19 05/04/19 22:00 22:30 22:53 Temperature Pulse Rate 102 H 103 H 107 H Pulse Rate [ Anterior Bilateral] Respiratory 30 H 28 H Rate Respiratory Rate [Anterior Bilateral] Blood Pressure 138/99 107/75 107/75 O2 Sat by Pulse 94 95 Oximetry 05/04/19 05/04/19 05/04/19 22:54 23:00 23:20 Temperature Pulse Rate 107 H 102 H 103 H Pulse Rate [ Anterior Bilateral] Respiratory 29 H 29 H Rate Respiratory Rate [Anterior Bilateral] Blood Pressure 107/75 109/85 175/107 O2 Sat by Pulse 96 95 Oximetry 05/04/19 05/04/19 05/05/19 23:30 23:48 00:00 Temperature 100.0 F H Pulse Rate 100 H 108 H 103 H Pulse Rate [ Anterior Bilateral] Respiratory 29 H 29 H Rate Respiratory Rate [Anterior Bilateral] Blood Pressure 129/78 129/78 139/87 O2 Sat by Pulse 95 96 96 Oximetry 05/05/19 05/05/19 05/05/19 00:30 01:00 01:30 Temperature Pulse Rate 107 H 109 H 104 H Pulse Rate [ Anterior Bilateral] Respiratory 29 H 31 H 28 H Rate Respiratory Rate [Anterior Bilateral] Blood Pressure 149/94 142/88 125/75 O2 Sat by Pulse 94 94 94 Oximetry 05/05/19 05/05/19 05/05/19 02:00 02:30 03:00 Temperature Pulse Rate 105 H 107 H 110 H Pulse Rate [ Anterior Bilateral] Respiratory 29 H 29 H 33 H Rate Respiratory Rate [Anterior Bilateral] Blood Pressure 132/85 125/75 144/72 O2 Sat by Pulse 95 94 94 Oximetry 05/05/19 05/05/19 05/05/19 03:18 03:30 03:50 Temperature 100.1 F H Pulse Rate 103 H 101 H Pulse Rate [ Anterior Bilateral] Respiratory 28 H Rate Respiratory Rate [Anterior Bilateral] Blood Pressure 156/86 112/77 O2 Sat by Pulse 94 94 Oximetry 05/05/19 05/05/19 05/05/19 04:00 04:30 05:00 Temperature Pulse Rate 95 H 92 H 96 H Pulse Rate [ Anterior Bilateral] Respiratory 28 H 28 H 32 H Rate Respiratory Rate [Anterior Bilateral] Blood Pressure 102/75 137/79 137/79 O2 Sat by Pulse 95 95 94 Oximetry 05/05/19 05/05/19 05/05/19 05:30 06:00 06:28 Temperature Pulse Rate 92 H 91 H 93 H Pulse Rate [ Anterior Bilateral] Respiratory 28 H 31 H Rate Respiratory Rate [Anterior Bilateral] Blood Pressure 112/73 123/72 123/72 O2 Sat by Pulse 94 94 Oximetry 05/05/19 05/05/19 05/05/19 06:30 07:00 07:30 Temperature Pulse Rate 95 H 99 H 96 H Pulse Rate [ Anterior Bilateral] Respiratory 16 27 H 28 H Rate Respiratory Rate [Anterior Bilateral] Blood Pressure 117/71 134/69 133/77 O2 Sat by Pulse 96 95 96 Oximetry 05/05/19 05/05/19 05/05/19 08:00 08:30 09:01 Temperature 99.3 F Pulse Rate 98 H 96 H 98 H Pulse Rate [ Anterior Bilateral] Respiratory 30 H 28 H 29 H Rate Respiratory Rate [Anterior Bilateral] Blood Pressure 127/79 117/79 157/97 O2 Sat by Pulse 96 96 96 Oximetry 05/05/19 05/05/19 09:09 09:10 Temperature Pulse Rate 104 H Pulse Rate [ 95 H Anterior Bilateral] Respiratory Rate Respiratory 32 H Rate [Anterior Bilateral] Blood Pressure 157/97 O2 Sat by Pulse 96 Oximetry Constitutional: appears uncomfortable Eyes: non-icteric ENT: other (orally intubated and sedated.) Neck: supple Effort: mildly labored Ascultation: Bilateral: rales Percussion: Bilateral: not dull Cardiovascular: other (sinus tach) Gastrointestinal: normoactive bowel sounds Neurologic: unable to assess CBC and BMP: 05/04/19 03:51 05/04/19 03:51 ABG, PT/INR, D-dimer: ABG ABG pH 7.456 pH Units (7.350-7.450) H 05/05/19 03:45 ABG pCO2 34.5 mm Hg 05/05/19 03:45 ABG pO2 64.8 mm Hg (80.0-90.0) L 05/05/19 03:45 ABG O2 Saturation 93.6 % (95.0-99.0) L 05/05/19 03:45 PT/INR, D-dimer PT 14.3 Sec. (12.2-14.9) 04/30/19 15:23 INR 1.10 (0.87-1.13) 04/30/19 15:23 Abnormal lab findings: Abnormal Labs 04/30/19 04/30/19 04/30/19 10:12 11:32 11:32 WBC RDW 17.1 H Plt Count 84 L Lymph % (Auto) 10.9 L Andrew % (Auto) 7.4 H Lymph # 0.8 L Seg Neutrophils % 80.6 H Seg Neuts % (Manual) Lymphocytes % (Manual) Lymphocytes # (Manual) PT 28.3 H INR 2.59 H APTT ABG pH 7.347 L ABG pO2 221.9 H ABG O2 Saturation 99.3 H ABG Base Excess -2.2 L ABG Hemoglobin Oxyhemoglobin Sodium Potassium Chloride Carbon Dioxide BUN Creatinine Glucose POC Glucose Phosphorus Magnesium Troponin T NT-Pro-B Natriuret Pep Triglycerides Cholesterol LDL Cholesterol Direct HDL Cholesterol 04/30/19 04/30/19 04/30/19 14:20 15:23 18:05 WBC RDW Plt Count Lymph % (Auto) Andrew % (Auto) Lymph # Seg Neutrophils % Seg Neuts % (Manual) Lymphocytes % (Manual) Lymphocytes # (Manual) PT INR APTT 37.2 H ABG pH ABG pO2 79.2 L ABG O2 Saturation ABG Base Excess ABG Hemoglobin Oxyhemoglobin 94.4 L Sodium 146 H Potassium 3.2 L Chloride Carbon Dioxide BUN 39 H Creatinine 2.6 H Glucose POC Glucose Phosphorus Magnesium Troponin T 0.117 H* NT-Pro-B Natriuret Pep 69276 H Triglycerides 178 H Cholesterol 303 H LDL Cholesterol Direct 190 H HDL Cholesterol 105 H 04/30/19 05/01/19 05/01/19 22:20 00:48 04:46 WBC RDW Plt Count Lymph % (Auto) Andrew % (Auto) Lymph # Seg Neutrophils % Seg Neuts % (Manual) Lymphocytes % (Manual) Lymphocytes # (Manual) PT INR APTT ABG pH ABG pO2 98.3 H ABG O2 Saturation ABG Base Excess ABG Hemoglobin Oxyhemoglobin Sodium Potassium Chloride Carbon Dioxide BUN Creatinine Glucose POC Glucose 108 H 142 H Phosphorus Magnesium Troponin T NT-Pro-B Natriuret Pep Triglycerides Cholesterol LDL Cholesterol Direct HDL Cholesterol 05/01/19 05/01/19 05/01/19 12:43 12:43 13:27 WBC RDW 16.4 H Plt Count 132 L Lymph % (Auto) Andrew % (Auto) Lymph # Seg Neutrophils % Seg Neuts % (Manual) 95.0 H Lymphocytes % (Manual) 3.0 L Lymphocytes # (Manual) 0.2 L PT INR APTT ABG pH ABG pO2 ABG O2 Saturation ABG Base Excess ABG Hemoglobin Oxyhemoglobin Sodium Potassium Chloride 95.1 L Carbon Dioxide 21 L BUN 29 H Creatinine 3.2 H Glucose 137 H POC Glucose 114 H Phosphorus Magnesium Troponin T NT-Pro-B Natriuret Pep Triglycerides Cholesterol LDL Cholesterol Direct HDL Cholesterol 05/01/19 05/02/19 05/02/19 18:41 00:01 05:40 WBC RDW Plt Count Lymph % (Auto) Andrew % (Auto) Lymph # Seg Neutrophils % Seg Neuts % (Manual) Lymphocytes % (Manual) Lymphocytes # (Manual) PT INR APTT ABG pH ABG pO2 ABG O2 Saturation ABG Base Excess ABG Hemoglobin Oxyhemoglobin Sodium Potassium Chloride Carbon Dioxide BUN Creatinine Glucose POC Glucose 127 H 110 H 135 H Phosphorus Magnesium Troponin T NT-Pro-B Natriuret Pep Triglycerides Cholesterol LDL Cholesterol Direct HDL Cholesterol 05/02/19 05/02/19 05/03/19 13:06 19:14 09:44 WBC RDW 17.1 H Plt Count Lymph % (Auto) Andrew % (Auto) Lymph # Seg Neutrophils % Seg Neuts % (Manual) Lymphocytes % (Manual) Lymphocytes # (Manual) PT INR APTT ABG pH ABG pO2 ABG O2 Saturation ABG Base Excess ABG Hemoglobin Oxyhemoglobin Sodium Potassium Chloride Carbon Dioxide BUN Creatinine Glucose POC Glucose 152 H 117 H Phosphorus Magnesium Troponin T NT-Pro-B Natriuret Pep Triglycerides Cholesterol LDL Cholesterol Direct HDL Cholesterol 05/03/19 05/03/19 05/03/19 09:44 10:13 18:45 WBC RDW Plt Count Lymph % (Auto) Andrew % (Auto) Lymph # Seg Neutrophils % Seg Neuts % (Manual) Lymphocytes % (Manual) Lymphocytes # (Manual) PT INR APTT ABG pH 7.166 L* ABG pO2 ABG O2 Saturation 94.5 L ABG Base Excess -8.8 L ABG Hemoglobin 11.6 L Oxyhemoglobin 92.4 L Sodium Potassium 6.2 H* D Chloride 93.2 L Carbon Dioxide 13 L D BUN 93 H Creatinine 7.2 H D Glucose 138 H POC Glucose 128 H Phosphorus 12.90 H Magnesium 2.70 H Troponin T NT-Pro-B Natriuret Pep Triglycerides Cholesterol LDL Cholesterol Direct HDL Cholesterol 05/03/19 05/04/19 05/04/19 19:40 01:04 03:51 WBC 11.2 H RDW 16.6 H Plt Count Lymph % (Auto) Andrew % (Auto) Lymph # Seg Neutrophils % Seg Neuts % (Manual) Lymphocytes % (Manual) Lymphocytes # (Manual) PT INR APTT ABG pH ABG pO2 ABG O2 Saturation ABG Base Excess ABG Hemoglobin Oxyhemoglobin Sodium Potassium Chloride 92.7 L Carbon Dioxide BUN 26 H Creatinine 3.2 H D Glucose 129 H POC Glucose 134 H Phosphorus Magnesium Troponin T NT-Pro-B Natriuret Pep Triglycerides Cholesterol LDL Cholesterol Direct HDL Cholesterol 05/04/19 05/04/19 05/04/19 03:51 06:05 12:33 WBC RDW Plt Count Lymph % (Auto) Andrew % (Auto) Lymph # Seg Neutrophils % Seg Neuts % (Manual) Lymphocytes % (Manual) Lymphocytes # (Manual) PT INR APTT ABG pH ABG pO2 ABG O2 Saturation ABG Base Excess ABG Hemoglobin Oxyhemoglobin Sodium Potassium Chloride 92.5 L Carbon Dioxide 19 L BUN 39 H Creatinine 4.3 H Glucose 148 H POC Glucose 138 H 190 H Phosphorus Magnesium Troponin T NT-Pro-B Natriuret Pep Triglycerides Cholesterol LDL Cholesterol Direct HDL Cholesterol 05/04/19 05/04/19 05/04/19 18:25 23:57 Unknown WBC RDW Plt Count Lymph % (Auto) Andrew % (Auto) Lymph # Seg Neutrophils % Seg Neuts % (Manual) Lymphocytes % (Manual) Lymphocytes # (Manual) PT INR APTT ABG pH ABG pO2 ABG O2 Saturation ABG Base Excess -3.4 L ABG Hemoglobin Oxyhemoglobin 94.5 L Sodium Potassium Chloride Carbon Dioxide BUN Creatinine Glucose POC Glucose 190 H 119 H Phosphorus Magnesium Troponin T NT-Pro-B Natriuret Pep Triglycerides Cholesterol LDL Cholesterol Direct HDL Cholesterol 05/05/19 05/05/19 03:45 06:09 WBC RDW Plt Count Lymph % (Auto) Andrew % (Auto) Lymph # Seg Neutrophils % Seg Neuts % (Manual) Lymphocytes % (Manual) Lymphocytes # (Manual) PT INR APTT ABG pH 7.456 H ABG pO2 64.8 L ABG O2 Saturation 93.6 L ABG Base Excess ABG Hemoglobin Oxyhemoglobin 91.4 L Sodium Potassium Chloride Carbon Dioxide BUN Creatinine Glucose POC Glucose 173 H Phosphorus Magnesium Troponin T NT-Pro-B Natriuret Pep Triglycerides Cholesterol LDL Cholesterol Direct HDL Cholesterol
[2019-05-05] MEDS: FAMOTIDINE 10 MG TAB PO SCH ×2 (10:36→21:22)
[2019-05-05] MEDS: SODIUM BICARBONATE 650 MG TAB PO SCH ×2 (10:36→21:23)
[2019-05-05] MEDS: ASPIRIN EC 81 MG TAB PO SCH (10:36)
[2019-05-05] MEDS: VALSARTAN 160MG TAB PO SCH ×2 (10:37→21:21)
[2019-05-05] MEDS: allopurinoL 100 MG TAB PO SCH (10:37)
[2019-05-05] MEDS: HEPARIN 5,000 UNIT/1 ML VIAL SUB-Q SCH ×2 (10:37→21:18)
[2019-05-05] MEDS: METOPROLOL TARTRATE 50 MG TAB PO SCH ×2 (10:37→21:23)
[2019-05-05] MEDS: busPIRone 10 MG TAB PO SCH ×2 (10:46→21:20)
--- NOTE | 2019-05-05 15:19 | Progress Note ---
Assessment and Plan Assessment and plan: 78 yo AA woman with a history of [place], Diastolic CHF, CAD S/P CABG, DM, Asthma, OA, Anxiety disorder, Chronic Respiratory Failure on 2-3 L Home oxygen due to end stage COPD and ESRD on HD(M,W,F) who presented to [facility] ED with SOB and wheezing for the last 2 days. No improvement with home breathing treatments. Patient was found tachypneic and respiratory distress upon their arrival to the house. Patient received albuterol 7.5 mg, started initiation of mag 1 g, Decadron 20 mg IV, and required CPAP and additional oxygen support during transport to the hospital. Patient states she has a history of one intubation. The last 3 days she has been short of breath with wheezing and cough productive of yellow sputum. She is compliant with dialysis and is due today. Patient has very little urine output daily. Patient did complain of chest pain prior to arrival which has improved with CPAP support. Patient very SOB and wheezing during my exam.Patient has not been exposed to anyone with fever and Dry cough.No recent travel.No exposure to foreign traveled patients. Acute on chronic hypoxic respiratory failure Now placed on Mechanical ventilation Patient chronically on home oxygen Continue aggressive neb treatments Steroids being tapered Pulmonary consult note reviewed Continue management per Dr. Buck's recommendations COPD exacerbation: Continue neb treatments, antibiotics, steroids and oxygen supplement History of anxiety disorder Continue Klonopin Hyperglycemia Continue to monitor likely induced by steroid use. end-stage renal disease: On hemodialysis Friday and Friday Nephrology note reviewed Acute metabolic acidosis Chronic diastolic heart failure, Hypertension, Anemia of chronic kidney disease The high probability of a clinically significant, sudden or life threatening deterioration of the [pulmonary] system(s) required my full and direct attention, intervention and personal management. The aggregate critical care time was [35] minutes. This time is in addition to time spent performing reported procedures but includes the following: [x] Data Review and interpretation [x] Patient assessment and monitoring of vital signs [x] Documentation [x] Medication orders and management History Interval history: Patient seen and examined still on mechanical ventilatory support agitated during periods of sedation holiday Hospitalist Physical - Physical exam Narrative exam: VITAL SIGNS: Reviewed. GENERAL: The patient appears chronically ill, agitated, on mechanical ventilation vital signs as documented. HEAD: No signs of head trauma. EYES: Pupils are equal. EARS: Hearing grossly intact. MOUTH: ET tube in place. NECK: No adenopathy, no JVD. CHEST: Chest with clear breath sounds bilaterally. No wheezes, rales, or rhonchi. CARDIAC: Regular rate and rhythm. S1 and S2, without murmurs, gallops, or rubs. VASCULAR: No Edema. Peripheral pulses normal and equal in all extremities. ABDOMEN: Soft, non tender and non distended. No rebound or guarding, and no masses palpated. Bowel Sounds normal. MUSCULOSKELETAL: moving all around NEUROLOGIC EXAM: Disoriented, currently on full mechanical support PSYCHIATRIC: Unable to assess SKIN: detail exam as documented in skin assessment - Constitutional Vitals: Temp Pulse Resp BP Pulse Ox 99.1 F 94 H 28 H 221/116 100 05/05/19 12:00 05/05/19 15:13 05/05/19 13:00 05/05/19 15:13 05/05/19 13:00 General appearance: Present: mild distress, well-nourished ROB score - Rob Score Age > 65: (1) Yes Aspirin use within the Past 7 Days: (1) Yes 3 or more CAD Risk Factors: (1) Yes 2 or more Angina events in past 24 hrs: (0) No Known CAD with more than 50% Stenosis: (0) No Elevated Cardiac Markers: (0) No ST Deviation Greater than 0.5mm: (0) No ROB Score: 3 Results - Labs CBC & Chem 7: 05/04/19 03:51 05/04/19 03:51 Labs: Laboratory Last Values WBC 11.2 K/mm3 (4.5-11.0) H 05/04/19 03:51 RBC 4.36 M/mm3 (3.65-5.03) 05/04/19 03:51 Hgb 12.6 gm/dl (10.1-14.3) 05/04/19 03:51 Hct 40.8 % (30.3-42.9) 05/04/19 03:51 MCV 94 fl (79-97) 05/04/19 03:51 MCH 29 pg (28-32) 05/04/19 03:51 MCHC 31 % (30-34) 05/04/19 03:51 RDW 16.6 % (13.2-15.2) H 05/04/19 03:51 Plt Count 170 K/mm3 (140-440) 05/04/19 03:51 Lymph % (Auto) 10.9 % (13.4-35.0) L 04/30/19 11:32 Dickey % (Auto) 7.4 % (0.0-7.3) H 04/30/19 11:32 Eos % (Auto) 0.4 % (0.0-4.3) 04/30/19 11:32 Baso % (Auto) 0.7 % (0.0-1.8) 04/30/19 11:32 Lymph # 0.8 K/mm3 (1.2-5.4) L 04/30/19 11:32 Dickey # 0.5 K/mm3 (0.0-0.8) 04/30/19 11:32 Eos # 0.0 K/mm3 (0.0-0.4) 04/30/19 11:32 Baso # 0.1 K/mm3 (0.0-0.1) 04/30/19 11:32 Add Manual Diff Complete 05/01/19 12:43 Total Counted 100 05/01/19 12:43 Seg Neutrophils % Chief Yeoman 05/01/19 12:43 Seg Neuts % (Manual) 95.0 % (40.0-70.0) H 05/01/19 12:43 Band Neutrophils % 0 % 05/01/19 12:43 Lymphocytes % (Manual) 3.0 % (13.4-35.0) L 05/01/19 12:43 Reactive Lymphs % (Man) 0 % 05/01/19 12:43 Monocytes % (Manual) 2.0 % (0.0-7.3) 05/01/19 12:43 Eosinophils % (Manual) 0 % (0.0-4.3) 05/01/19 12:43 Basophils % (Manual) 0 % (0.0-1.8) 05/01/19 12:43 Metamyelocytes % 0 % 05/01/19 12:43 Myelocytes % 0 % 05/01/19 12:43 Promyelocytes % 0 % 05/01/19 12:43 Blast Cells % 0 % 05/01/19 12:43 Nucleated RBC % Not Reportable 05/01/19 12:43 Seg Neutrophils # 6.0 K/mm3 (1.8-7.7) 04/30/19 11:32 Seg Neutrophils # Man 6.5 K/mm3 (1.8-7.7) 05/01/19 12:43 Band Neutrophils # 0.0 K/mm3 05/01/19 12:43 Lymphocytes # (Manual) 0.2 K/mm3 (1.2-5.4) L 05/01/19 12:43 Abs React Lymphs (Man) 0.0 K/mm3 05/01/19 12:43 Monocytes # (Manual) 0.1 K/mm3 (0.0-0.8) 05/01/19 12:43 Eosinophils # (Manual) 0.0 K/mm3 (0.0-0.4) 05/01/19 12:43 Basophils # (Manual) 0.0 K/mm3 (0.0-0.1) 05/01/19 12:43 Metamyelocytes # 0.0 K/mm3 05/01/19 12:43 Myelocytes # 0.0 K/mm3 05/01/19 12:43 Promyelocytes # 0.0 K/mm3 05/01/19 12:43 Blast Cells # 0.0 K/mm3 05/01/19 12:43 WBC Morphology Not Reportable 05/01/19 12:43 Hypersegmented Neuts Not Reportable 05/01/19 12:43 Hyposegmented Neuts Not Reportable 05/01/19 12:43 Hypogranular Neuts Not Reportable 05/01/19 12:43 Smudge Cells Not Reportable 05/01/19 12:43 Toxic Granulation Not Reportable 05/01/19 12:43 Toxic Vacuolation Not Reportable 05/01/19 12:43 Dohle Bodies Not Reportable 05/01/19 12:43 Pelger-Huet Anomaly Not Reportable 05/01/19 12:43 Ariel Rods Not Reportable 05/01/19 12:43 Platelet Estimate Consistent w auto 05/01/19 12:43 Clumped Platelets Not Reportable 05/01/19 12:43 Plt Clumps, EDTA Not Reportable 05/01/19 12:43 Large Platelets Not Reportable 05/01/19 12:43 Giant Platelets Rare 05/01/19 12:43 Platelet Satelliting Not Reportable 05/01/19 12:43 Plt Morphology Comment Not Reportable 05/01/19 12:43 RBC Morphology Not Reportable 05/01/19 12:43 Dimorphic RBCs Not Reportable 05/01/19 12:43 Polychromasia Not Reportable 05/01/19 12:43 Hypochromasia Not Reportable 05/01/19 12:43 Poikilocytosis Not Reportable 05/01/19 12:43 Anisocytosis Not Reportable 05/01/19 12:43 Microcytosis Not Reportable 05/01/19 12:43 Macrocytosis Not Reportable 05/01/19 12:43 Spherocytes Not Reportable 05/01/19 12:43 Pappenheimer Bodies Not Reportable 05/01/19 12:43 Sickle Cells Not Reportable 05/01/19 12:43 Target Cells Rare 05/01/19 12:43 Tear Drop Cells Few 05/01/19 12:43 Ovalocytes Not Reportable 05/01/19 12:43 Helmet Cells Not Reportable 05/01/19 12:43 Edwards-Bergman Bodies Not Reportable 05/01/19 12:43 [place] Rings Not Reportable 05/01/19 12:43 Channing Cells Not Reportable 05/01/19 12:43 Bite Cells Not Reportable 05/01/19 12:43 Crenated Cell Not Reportable 05/01/19 12:43 Elliptocytes Few 05/01/19 12:43 Acanthocytes (Spur) Not Reportable 05/01/19 12:43 Rouleaux Not Reportable 05/01/19 12:43 Hemoglobin C Crystals Not Reportable 05/01/19 12:43 Schistocytes Not Reportable 05/01/19 12:43 Malaria parasites Not Reportable 05/01/19 12:43 Garland Bodies Not Reportable 05/01/19 12:43 Hem Pathologist Commnt No 05/01/19 12:43 PT 14.3 Sec. (12.2-14.9) 04/30/19 15: INR 1.10 (0.87-1.13) 04/30/19 15:23 APTT 37.2 Sec. (24.2-36.6) H 04/30/19 15:23 ABG pH 7.456 pH Units (7.350-7.450) H 05/05/19 03:45 ABG pCO2 34.5 mm Hg 05/05/19 03:45 ABG pO2 64.8 mm Hg (80.0-90.0) L 05/05/19 03:45 ABG HCO3 23.8 mmol/L (20.0-26.0) 05/05/19 03:45 ABG O2 Saturation 93.6 % (95.0-99.0) L 05/05/19 03:45 ABG O2 Content 15.5 (0.0-44) 05/05/19 03:45 ABG Base Excess 0.3 mmol/L (-2.0-3.0) 05/05/19 03:45 ABG Hemoglobin 12.0 gm/dl (12.0-16.0) 05/05/19 03:45 ABG Carboxyhemoglobin 1.7 % (0.0-5.0) 05/05/19 03:45 ABG Methemoglobin 0.7 % (0.0-1.5) 05/05/19 03:45 Oxyhemoglobin 91.4 % (95.0-99.0) L 05/05/19 03:45 FiO2 25 % 05/05/19 03:45 Sodium 142 mmol/L (137-145) 05/04/19 03:51 Potassium 4.5 mmol/L (3.6-5.0) 05/04/19 03:51 Chloride 92.5 mmol/L (98-107) L 05/04/19 03:51 Carbon Dioxide 19 mmol/L (22-30) L 05/04/19 03:51 Anion Gap 35 mmol/L 05/04/19 03:51 BUN 39 mg/dL (7-17) H 05/04/19 03:51 Creatinine 4.3 mg/dL (0.7-1.2) H 05/04/19 03:51 Estimated GFR 12 ml/min 05/04/19 03:51 BUN/Creatinine Ratio 9 % 05/04/19 03:51 Glucose 148 mg/dL (65-100) H 05/04/19 03:51 POC Glucose 260 (70-105) H 05/05/19 12:07 Hemoglobin A1c 5.6 % (4-6) 04/30/19 11:32 Calcium 9.5 mg/dL (8.4-10.2) 03/17/20 03:51 Phosphorus 12.90 mg/dL (2.5-4.5) H 05/03/19 09:44 Magnesium 2.70 mg/dL (1.7-2.3) H 05/03/19 09:44 Total Bilirubin 0.40 mg/dL (0.1-1.2) 05/01/19 12:43 AST 39 units/L (5-40) 05/01/19 12:43 ALT 23 units/L (7-56) 05/01/19 12:43 Alkaline Phosphatase 102 units/L (35-129) 05/01/19 12:43 Total Creatine Kinase Cancelled 04/30/19 14:20 CK-MB (CK-2) Cancelled 04/30/19 14:20 CK-MB (CK-2) Rel Index Cancelled 04/30/19 14:20 Troponin T 0.117 ng/mL (0.00-0.029) H* 04/30/19 14:20 NT-Pro-B Natriuret Pep 72569 pg/mL (0-900) H 04/30/19 14:20 Total Protein 6.6 g/dL (6.3-8.2) 05/01/19 12:43 Albumin 4.0 g/dL (3.9-5) 05/01/19 12:43 Albumin/Globulin Ratio 1.5 % 05/01/19 12:43 Triglycerides 178 mg/dL (2-149) H 04/30/19 14:20 Cholesterol 303 mg/dL (50-199) H 04/30/19 14:20 LDL Cholesterol Direct 190 mg/dL (50-130) H 04/30/19 14:20 HDL Cholesterol 105 mg/dL (40-59) H 04/30/19 14:20 Cholesterol/HDL Ratio 2.88 % 04/30/19 14:20 Hepatitis A IgM Ab Non-reactive (NonReactive) 04/30/19 14:20 Hep Bs Antigen Non-reactive (Negative) 04/30/19 14:20 Hep B Core IgM Ab Non-reactive (NonReactive) 04/30/19 14:20 Hepatitis C Antibody Non-reactive (NonReactive) 04/30/19 14:20 Microbiology: Microbiology 05/04/19 Unknown Tracheal Aspirate Sputum Culture - Preliminary [place]/IV: Voiding Method Bedpan IV Catheter Type [Left Mid-line Subclavian] IV Catheter Type [Right Upper INT / Saline Lock arm] IV Catheter Type [Right Hand] INT / Saline Lock IV Catheter Type [Left Forearm INT / Saline Lock ] IV Catheter Type [Right VAS Cath Internal Jugular] Active Medications - Current Medications Current Medications: Generic Name Dose Route Start Last Admin Trade Name Freq PRN Reason Stop Dose Admin Acetaminophen 650 mg 04/30/19 17:44 Tylenol PO Q4H PRN Pain MILD(1-3)/Fever >100.5/HERRMANN Albuterol 2.5 mg 04/30/19 18:32 05/02/19 04:49 Proventil IH 2.5 mg Q3H PRN Administration Shortness Of Breath Albuterol/Ipratropium 1 ampul 04/30/19 20:00 05/05/19 12:40 Duoneb *Not For Prn Use* IH 1 ampul QIDRT KVNG Administration Allopurinol 100 mg 04/30/19 18:00 05/05/19 10:37 Zyloprim PO 100 mg QDAY KVNG Administration Lipase/Protease/Amylase 1 each 05/04/19 14:58 Pancreaze 10,500 Unit FEEDTUBE PRN PRN For Clogged Feeding Tube Arformoterol Tartrate 15 mcg 05/01/19 08:00 05/05/19 09:07 Brovana Nebu IH 15 mcg Q12HRT KVNG Administration Aspirin 81 mg 04/30/19 18:00 05/05/19 10:36 Halfprin Ec PO 81 mg QDAY KVNG Administration Budesonide 0.5 mg 05/03/19 11:00 05/05/19 09:07 Pulmicort IH 0.5 mg Q12HRT KVNG Administration Buspirone HCl 15 mg 05/04/19 10:00 05/05/19 10:46 Buspar PO 15 mg BID KVNG Administration Famotidine 10 mg 04/30/19 22:00 05/05/19 10:36 Pepcid PO 10 mg BID KVNG Administration Heparin Sodium (Porcine) 5,000 unit 05/04/19 22:00 05/05/19 10:37 Heparin SUB-Q 5,000 unit Q12HR KVNG Administration Hydralazine HCl 5 mg 05/01/19 22:47 05/04/19 05:38 Apresoline IV 5 mg Q6HR PRN Administration SBP > 160 AND/OR DBP > 100 Hydrophilic Ointment 1 applic 05/04/19 09:42 Vaseline Lip Therapy TP Q2HR PRN Dry Lips Sodium Chloride 100 mls @ 999 mls/hr 04/30/19 13:29 Nacl 0.9% IV ALBINO PRN Hypotension Levofloxacin/Dextrose 500 mg in 100 mls @ 100 mls/hr 05/02/19 19:00 05/04/19 18:06 Levaquin 500mg/100ml IV 05/10/19 19:59 100 mls/hr Q48H KVNG Administration Propofol 1,000 mg in 100 mls @ 1.482 mls/hr 05/04/19 09:00 05/05/19 11:30 Diprivan 10 Mg/Ml IV 15 mcg/kg/min TITR KVNG 4.446 mls/hr Titration Protocol 5 MCG/KG/MIN Isosorbide Dinitrate 10 mg 05/04/19 14:00 05/05/19 15:13 Isordil Titradose PO 10 mg Q8HR KVNG Administration Lorazepam 1 mg 05/02/19 11:08 05/03/19 16:59 Ativan IV 1 mg Q4H PRN Administration Anxiety Methylprednisolone Sodium Succinate 60 mg 05/04/19 09:00 05/05/19 15:12 Solu-Medrol IV 60 mg Q6H KVNG Administration Metoprolol Tartrate 50 mg 04/30/19 22:00 05/05/19 10:37 Metoprolol PO 50 mg BID KVNG Administration Montelukast Sodium 10 mg 04/30/19 19:00 05/04/19 17:02 Singulair PO 10 mg QPM KVNG Administration Multi-Ingred Cream/Lotion/Oil/Oint 1 applic 05/04/19 09:42 Artificial Tears Ophth Oint OU Q4HR PRN Dry Eye(s) Pravastatin Sodium 40 mg 04/30/19 22:00 05/04/19 22:52 Pravachol PO 40 mg QHS KVNG Administration Simple Syrup 15 ml 05/04/19 14:58 Simple Syrup FEEDTUBE PRN PRN Hypoglycemia Simple Syrup 30 ml 05/04/19 14:58 Simple Syrup FEEDTUBE PRN PRN Hypoglycemia Sodium Bicarbonate 650 mg 04/30/19 22:00 05/05/19 10:36 Sodium Bicarbonate PO 650 mg BID KVNG Administration Sodium Bicarbonate 325 mg 05/04/19 14:58 Sodium Bicarbonate FEEDTUBE PRN PRN For Clogged Feeding Tube Sodium Chloride 10 ml 04/30/19 22:00 05/05/19 10:38 Sodium Chloride Flush Syringe 10 Ml IV 10 ml BID KVNG Administration Sodium Chloride 10 ml 04/30/19 17:44 05/01/19 03:55 Sodium Chloride Flush Syringe 10 Ml IV 10 ml PRN PRN Administration LINE FLUSH Valsartan 160 mg 04/30/19 22:00 05/05/19 10:37 Diovan PO 160 mg BID KVNG Administration Nutrition/Malnutrition Assess - Dietary Evaluation Nutrition/Malnutrition Findings: Nutrition Notes Start: 05/04/19 11:09 Freq: Status: Active Protocol: Document 05/04/19 11:09 LM (Rec: 05/04/19 11:27 LM [id number]) Nutrition Notes Need for Assessment generated from: MD Order Initial or Follow up Assessment Current Diagnosis CKD (stage V CKD),COPD, Coronary Artery Disease, Diabetes,Heart Failure, Respiratory Failure Other Pertinent Diagnosis End stage COPD, SOB, asthma, OA, [place] Current Diet NPO Labs/Tests Reviewed Pertinent Medications Lasix Height 5 ft Weight 49.4 kg [place] Body Weight (kg) 45.45 BMI 21.2 Weight change and time frame 14% wt loss in 1 month ( possibly fluid wt) Weight Status Underweight Subjective/Other Information MD consult to evaluate nutritional intake and for TF. Pt intubated today. Reviewed chart from 02/18/19. Pt weighed 57.6 kg with good appetite and intakes reported from pt. Wt change could be from fluid. Burn Absent Trauma Absent GI Symptoms None Difficulty In Swallowing Current % PO Negligible Minimum of two criteria Yes Interpretation of Weight Loss (severe) >5% in 1 month Fluid Accumulation Mild (non-severe) Reduced Curing Room Supervisor Strength Measurably Reduced (severe) #2 Nutrition Diagnosis Inadequate oral intake Etiology Mechanical vent As Evidenced by Signs and Symptoms Pt NPO #1 Nutrition Diagnosis Malnutrition Etiology COPD, chronic illness As Evidenced by Signs and Symptoms 14% wt loss in 1 month, fluid accumulation, weak assistant real estate manager strength Is patient on ventilator? Yes Is Patient Ambulatory and/or Out of Bed No REE-([facility]-confined to bed) [phone] Calculation Used for Recommendations [facility] Additional Notes Protein: 59-98g (1.2-2g/kg) Fluid: per Nutrition Intervention Change Diet Order: TF Nutrition Support: Nepro 1.8 at 30 ml/hr Flush 130 ml q4h Kcal 1,296 Protein (gm) 58 Fluid (mL) 523 Goal #1 Start TF start/tolerance Anticipated Discharge Needs: unable to determine at this time Follow-Up By: 05/06/19 Additional Comments F/U for TF start/tolerance
[2019-05-05] MEDS: MONTELUKAST 10 MG TAB PO SCH (18:17)
[2019-05-05] MEDS: INSULIN LISPRO 100 UNIT/ML SUB-Q SCH (18:17)
[2019-05-05] MEDS: PRAVASTATIN 40 MG TAB PO SCH (21:23)
[2019-05-06] MEDS: methylPREDNISolone Sod Succinate 125 MG/2 ML INJ IV SCH ×4 (03:05→22:30)
--- NOTE | 2019-05-06 04:07 | XRay Report ---
CHEST 1 VIEW INDICATION: follow up respiratory failure. COMPARISON: 05/05/2019 FINDINGS: SUPPORT DEVICES: Endotracheal tubes in good position. Hemodialysis catheters tip in superior vena cav a. Nasogastric tubes in place. HEART / MEDIASTINUM: No significant abnormality. LUNGS / PLEURA: No significant pulmonary or pleural abnormality. No pneumothorax. ADDITIONAL FINDINGS: IMPRESSION: 1. No acute cardiopulmonary disease Signer Name: Christopher Edward MD Signed: 05/06/2019 4:03 AM Workstation Name: [id number]
[2019-05-06] MEDS: hydrALAZINE 20 MG/1 ML INJ IV PRN (04:57)
[2019-05-06 05:04] LABS: Hematocrit 41.8 % (30.3-42.9); Hemoglobin 13.1 gm/dl (10.1-14.3); Mean Corpuscular HGB Conc 31 % (30-34); Mean Corpuscular Volume 92 fl (79-97); Platelet Count 170 K/mm3 (140-440); Red Blood Count 4.54 M/mm3 (3.65-5.03); Red Cell Distribution Width 16.9 % (13.2-15.2)
[2019-05-06] MEDS: ISOSORBIDE DINITRATE 10 MG TAB PO SCH ×2 (05:14→15:11)
[2019-05-06 05:25] LABS: Calcium 9.3 mg/dL (8.4-10.2)
[2019-05-06 06:13] LABS: ABG Base Excess -1.2 mmol/L (-2.0-3.0); ABG HCO3 22.5 mmol/L (20.0-26.0); ABG Methemoglobin 0.6 % (0.0-1.5); ABG Oxygen Saturation 92.5 % (95.0-99.0); ABG PCO2 34.7 mm Hg; ABG PH 7.43 pH Units (7.350-7.450); ABG PO2 62.9 mm Hg (80.0-90.0)
[2019-05-06] MEDS: INSULIN LISPRO 100 UNIT/ML SUB-Q SCH ×4 (06:24→18:24)
[2019-05-06 06:38] LABS: Anisocytosis 1+; Basophils % (Manual) 0 % (0.0-1.8); Eosinophils % (Manual) 0 % (0.0-4.3); Platelet Estimate Consistent w Auto; Total Cells Counted 100
--- NOTE | 2019-05-06 06:39 | Progress Note ---
Assessment and Plan 78 y/o female with acute on chronic respiratory failure secondary to volume overload, resolved. 1. Continue steroids at 60q6 2. Added scheduled fentanyl pushes along with PRN ativan pushes. Will start to wean off diprovan. Would like to do PSV trials later today. 3. Continue HD per renal 4. Started Buspar prior to intubation, will continue 5. Midline placement, done 6. NG tube placed. 7. Guarded prognosis. Will continuous sedation off today and start PSV trials with hopes of extubation as early as tomorrow, if not later today. Will likely need to have bipap on standby. CCT 31 minutes. Subjective Date of service: 05/06/19 Principal diagnosis: Acute resp failure,COPd exacerbation Interval history: No acute events. CXR remain stable. ABG stable. Triglycerides elevated on Diprovan. Will add PRN Fent. No other issues. Objective Vital Signs - 12hr 05/05/19 05/05/19 05/05/19 18:45 19:00 19:01 Temperature Pulse Rate 97 H 88 90 Pulse Rate [ Anterior Bilateral] Pulse Rate [ From Monitor] Respiratory 34 H Rate Respiratory Rate [Anterior Bilateral] Blood Pressure 124/89 122/95 122/95 O2 Sat by Pulse Oximetry O2 Sat by Pulse Oximetry [ Anterior Bilateral] 05/05/19 05/05/19 05/05/19 19:15 19:31 19:54 Temperature 98.4 F 98.4 F Pulse Rate 85 91 H Pulse Rate [ Anterior Bilateral] Pulse Rate [ From Monitor] Respiratory 30 H 37 H Rate Respiratory Rate [Anterior Bilateral] Blood Pressure 163/77 126/85 O2 Sat by Pulse 98 Oximetry O2 Sat by Pulse 99 Oximetry [ Anterior Bilateral] 05/05/19 05/05/19 05/05/19 20:00 20:01 20:31 Temperature 98.4 F Pulse Rate 92 H 91 H 93 H Pulse Rate [ Anterior Bilateral] Pulse Rate [ 92 H From Monitor] Respiratory 29 H 28 H Rate Respiratory Rate [Anterior Bilateral] Blood Pressure 140/66 140/66 O2 Sat by Pulse 100 100 100 Oximetry O2 Sat by Pulse Oximetry [ Anterior Bilateral] 05/05/19 05/05/19 05/05/19 20:45 21:00 21:21 Temperature Pulse Rate 91 H 101 H 95 H Pulse Rate [ Anterior Bilateral] Pulse Rate [ From Monitor] Respiratory 29 H 25 H Rate Respiratory Rate [Anterior Bilateral] Blood Pressure 140/66 155/111 149/76 O2 Sat by Pulse 100 100 Oximetry O2 Sat by Pulse Oximetry [ Anterior Bilateral] 05/05/19 05/05/19 05/05/19 21:22 21:23 21:31 Temperature Pulse Rate 93 H 93 H 90 Pulse Rate [ Anterior Bilateral] Pulse Rate [ From Monitor] Respiratory 28 H Rate Respiratory Rate [Anterior Bilateral] Blood Pressure 149/76 149/76 138/90 O2 Sat by Pulse 100 Oximetry O2 Sat by Pulse Oximetry [ Anterior Bilateral] 05/05/19 05/05/19 05/05/19 22:00 22:01 22:28 Temperature Pulse Rate 100 H 110 H Pulse Rate [ 102 H Anterior Bilateral] Pulse Rate [ From Monitor] Respiratory 33 H Rate Respiratory 32 H Rate [Anterior Bilateral] Blood Pressure 161/125 112/45 O2 Sat by Pulse 100 100 Oximetry O2 Sat by Pulse Oximetry [ Anterior Bilateral] 05/05/19 05/05/19 05/05/19 22:31 23:01 23:30 Temperature Pulse Rate 99 H 101 H 106 H Pulse Rate [ Anterior Bilateral] Pulse Rate [ From Monitor] Respiratory 30 H 28 H 28 H Rate Respiratory Rate [Anterior Bilateral] Blood Pressure 101/56 107/70 114/43 O2 Sat by Pulse 100 99 100 Oximetry O2 Sat by Pulse Oximetry [ Anterior Bilateral] 05/06/19 05/06/19 05/06/19 00:00 00:01 00:31 Temperature 98.5 F Pulse Rate 100 H 108 H 100 H Pulse Rate [ Anterior Bilateral] Pulse Rate [ 100 H From Monitor] Respiratory 27 H 28 H Rate Respiratory Rate [Anterior Bilateral] Blood Pressure 107/85 96/63 O2 Sat by Pulse 100 100 94 Oximetry O2 Sat by Pulse Oximetry [ Anterior Bilateral] 05/06/19 05/06/19 05/06/19 00:55 01:00 01:30 Temperature Pulse Rate 98 H 99 H 101 H Pulse Rate [ Anterior Bilateral] Pulse Rate [ From Monitor] Respiratory 28 H 28 H Rate Respiratory Rate [Anterior Bilateral] Blood Pressure 131/93 138/99 151/73 O2 Sat by Pulse 95 95 96 Oximetry O2 Sat by Pulse Oximetry [ Anterior Bilateral] 05/06/19 05/06/19 05/06/19 02:00 02:31 03:00 Temperature Pulse Rate 99 H 99 H 99 H Pulse Rate [ Anterior Bilateral] Pulse Rate [ From Monitor] Respiratory 28 H 28 H 28 H Rate Respiratory Rate [Anterior Bilateral] Blood Pressure 146/78 102/56 136/114 O2 Sat by Pulse 96 96 97 Oximetry O2 Sat by Pulse Oximetry [ Anterior Bilateral] 05/06/19 05/06/19 05/06/19 03:31 04:00 04:01 Temperature 97.8 F Pulse Rate 105 H 110 H 104 H Pulse Rate [ Anterior Bilateral] Pulse Rate [ 110 H From Monitor] Respiratory 17 28 H Rate Respiratory Rate [Anterior Bilateral] Blood Pressure 173/152 173/152 O2 Sat by Pulse 95 94 96 Oximetry O2 Sat by Pulse Oximetry [ Anterior Bilateral] 05/06/19 05/06/19 05/06/19 04:31 04:57 05:00 Temperature Pulse Rate 105 H 105 H 107 H Pulse Rate [ Anterior Bilateral] Pulse Rate [ From Monitor] Respiratory 19 29 H Rate Respiratory Rate [Anterior Bilateral] Blood Pressure 173/152 167/109 186/109 O2 Sat by Pulse 95 95 Oximetry O2 Sat by Pulse Oximetry [ Anterior Bilateral] 05/06/19 05/06/19 05/06/19 05:14 05:30 05:55 Temperature Pulse Rate 115 H 108 H 110 H Pulse Rate [ Anterior Bilateral] Pulse Rate [ From Monitor] Respiratory 44 H Rate Respiratory Rate [Anterior Bilateral] Blood Pressure 186/109 139/75 145/102 O2 Sat by Pulse 94 95 Oximetry O2 Sat by Pulse Oximetry [ Anterior Bilateral] 05/06/19 05/06/19 06:01 06:30 Temperature Pulse Rate 108 H 108 H Pulse Rate [ Anterior Bilateral] Pulse Rate [ From Monitor] Respiratory 22 30 H Rate Respiratory Rate [Anterior Bilateral] Blood Pressure 148/100 163/86 O2 Sat by Pulse 94 94 Oximetry O2 Sat by Pulse Oximetry [ Anterior Bilateral] Constitutional: appears uncomfortable Eyes: non-icteric ENT: other (orally intubated and sedated.) Neck: supple Effort: mildly labored Ascultation: Bilateral: rales Percussion: Bilateral: not dull Cardiovascular: other (sinus tach) Gastrointestinal: normoactive bowel sounds Neurologic: unable to assess CBC and BMP: 05/06/19 04:20 05/06/19 04:20 ABG, PT/INR, D-dimer: ABG ABG pH 7.430 pH Units (7.350-7.450) 05/06/19 05:39 ABG pCO2 34.7 mm Hg 05/06/19 05:39 ABG pO2 62.9 mm Hg (80.0-90.0) L 05/06/19 05:39 ABG O2 Saturation 92.5 % (95.0-99.0) L 05/06/19 05:39 PT/INR, D-dimer PT 14.3 Sec. (12.2-14.9) 04/30/19 15:23 INR 1.10 (0.87-1.13) 04/30/19 15:23 Abnormal lab findings: Abnormal Labs 04/30/19 04/30/19 04/30/19 10:12 11:32 11:32 WBC RDW 17.1 H Plt Count 84 L Lymph % (Auto) 10.9 L [place] % (Auto) 7.4 H Lymph # 0.8 L Seg Neutrophils % 80.6 H Seg Neuts % (Manual) Lymphocytes % (Manual) Lymphocytes # (Manual) PT 28.3 H INR 2.59 H APTT ABG pH 7.347 L ABG pO2 221.9 H ABG O2 Saturation 99.3 H ABG Base Excess -2.2 L ABG Hemoglobin Oxyhemoglobin Sodium Potassium Chloride Carbon Dioxide BUN Creatinine Glucose POC Glucose Phosphorus Magnesium Troponin T NT-Pro-B Natriuret Pep Triglycerides Cholesterol LDL Cholesterol Direct HDL Cholesterol 04/30/19 04/30/19 04/30/19 14:20 15:23 18:05 WBC RDW Plt Count Lymph % (Auto) [place] % (Auto) Lymph # Seg Neutrophils % Seg Neuts % (Manual) Lymphocytes % (Manual) Lymphocytes # (Manual) PT INR APTT 37.2 H ABG pH ABG pO2 79.2 L ABG O2 Saturation ABG Base Excess ABG Hemoglobin Oxyhemoglobin 94.4 L Sodium 146 H Potassium 3.2 L Chloride Carbon Dioxide BUN 39 H Creatinine 2.6 H Glucose POC Glucose Phosphorus Magnesium Troponin T 0.117 H* NT-Pro-B Natriuret Pep 38092 H Triglycerides 178 H Cholesterol 303 H LDL Cholesterol Direct 190 H HDL Cholesterol 105 H 04/30/19 05/01/19 05/01/19 22:20 00:48 04:46 WBC RDW Plt Count Lymph % (Auto) [place] % (Auto) Lymph # Seg Neutrophils % Seg Neuts % (Manual) Lymphocytes % (Manual) Lymphocytes # (Manual) PT INR APTT ABG pH ABG pO2 98.3 H ABG O2 Saturation ABG Base Excess ABG Hemoglobin Oxyhemoglobin Sodium Potassium Chloride Carbon Dioxide BUN Creatinine Glucose POC Glucose 108 H 142 H Phosphorus Magnesium Troponin T NT-Pro-B Natriuret Pep Triglycerides Cholesterol LDL Cholesterol Direct HDL Cholesterol 05/01/19 05/01/19 05/01/19 12:43 12:43 13:27 WBC RDW 16.4 H Plt Count 132 L Lymph % (Auto) [place] % (Auto) Lymph # Seg Neutrophils % Seg Neuts % (Manual) 95.0 H Lymphocytes % (Manual) 3.0 L Lymphocytes # (Manual) 0.2 L PT INR APTT ABG pH ABG pO2 ABG O2 Saturation ABG Base Excess ABG Hemoglobin Oxyhemoglobin Sodium Potassium Chloride 95.1 L Carbon Dioxide 21 L BUN 29 H Creatinine 3.2 H Glucose 137 H POC Glucose 114 H Phosphorus Magnesium Troponin T NT-Pro-B Natriuret Pep Triglycerides Cholesterol LDL Cholesterol Direct HDL Cholesterol 05/01/19 05/02/19 05/02/19 18:41 00:01 05:40 WBC RDW Plt Count Lymph % (Auto) [place] % (Auto) Lymph # Seg Neutrophils % Seg Neuts % (Manual) Lymphocytes % (Manual) Lymphocytes # (Manual) PT INR APTT ABG pH ABG pO2 ABG O2 Saturation ABG Base Excess ABG Hemoglobin Oxyhemoglobin Sodium Potassium Chloride Carbon Dioxide BUN Creatinine Glucose POC Glucose 127 H 110 H 135 H Phosphorus Magnesium Troponin T NT-Pro-B Natriuret Pep Triglycerides Cholesterol LDL Cholesterol Direct HDL Cholesterol 05/02/19 05/02/19 05/03/19 13:06 19:14 09:44 WBC RDW 17.1 H Plt Count Lymph % (Auto) [place] % (Auto) Lymph # Seg Neutrophils % Seg Neuts % (Manual) Lymphocytes % (Manual) Lymphocytes # (Manual) PT INR APTT ABG pH ABG pO2 ABG O2 Saturation ABG Base Excess ABG Hemoglobin Oxyhemoglobin Sodium Potassium Chloride Carbon Dioxide BUN Creatinine Glucose POC Glucose 152 H 117 H Phosphorus Magnesium Troponin T NT-Pro-B Natriuret Pep Triglycerides Cholesterol LDL Cholesterol Direct HDL Cholesterol 05/03/19 05/03/19 05/03/19 09:44 10:13 18:45 WBC RDW Plt Count Lymph % (Auto) [place] % (Auto) Lymph # Seg Neutrophils % Seg Neuts % (Manual) Lymphocytes % (Manual) Lymphocytes # (Manual) PT INR APTT ABG pH 7.166 L* ABG pO2 ABG O2 Saturation 94.5 L ABG Base Excess -8.8 L ABG Hemoglobin 11.6 L Oxyhemoglobin 92.4 L Sodium Potassium 6.2 H* D Chloride 93.2 L Carbon Dioxide 13 L D BUN 93 H Creatinine 7.2 H D Glucose 138 H POC Glucose 128 H Phosphorus 12.90 H Magnesium 2.70 H Troponin T NT-Pro-B Natriuret Pep Triglycerides Cholesterol LDL Cholesterol Direct HDL Cholesterol 05/03/19 05/04/19 05/04/19 19:40 01:04 03:51 WBC 11.2 H RDW 16.6 H Plt Count Lymph % (Auto) [place] % (Auto) Lymph # Seg Neutrophils % Seg Neuts % (Manual) Lymphocytes % (Manual) Lymphocytes # (Manual) PT INR APTT ABG pH ABG pO2 ABG O2 Saturation ABG Base Excess ABG Hemoglobin Oxyhemoglobin Sodium Potassium Chloride 92.7 L Carbon Dioxide BUN 26 H Creatinine 3.2 H D Glucose 129 H POC Glucose 134 H Phosphorus Magnesium Troponin T NT-Pro-B Natriuret Pep Triglycerides Cholesterol LDL Cholesterol Direct HDL Cholesterol 05/04/19 05/04/19 05/04/19 03:51 06:05 12:33 WBC RDW Plt Count Lymph % (Auto) [place] % (Auto) Lymph # Seg Neutrophils % Seg Neuts % (Manual) Lymphocytes % (Manual) Lymphocytes # (Manual) PT INR APTT ABG pH ABG pO2 ABG O2 Saturation ABG Base Excess ABG Hemoglobin Oxyhemoglobin Sodium Potassium Chloride 92.5 L Carbon Dioxide 19 L BUN 39 H Creatinine 4.3 H Glucose 148 H POC Glucose 138 H 190 H Phosphorus Magnesium Troponin T NT-Pro-B Natriuret Pep Triglycerides Cholesterol LDL Cholesterol Direct HDL Cholesterol 05/04/19 05/04/19 05/04/19 18:25 23:57 Unknown WBC RDW Plt Count Lymph % (Auto) [place] % (Auto) Lymph # Seg Neutrophils % Seg Neuts % (Manual) Lymphocytes % (Manual) Lymphocytes # (Manual) PT INR APTT ABG pH ABG pO2 ABG O2 Saturation ABG Base Excess -3.4 L ABG Hemoglobin Oxyhemoglobin 94.5 L Sodium Potassium Chloride Carbon Dioxide BUN Creatinine Glucose POC Glucose 190 H 119 H Phosphorus Magnesium Troponin T NT-Pro-B Natriuret Pep Triglycerides Cholesterol LDL Cholesterol Direct HDL Cholesterol 05/05/19 05/05/19 05/05/19 03:45 06:09 12:07 WBC RDW Plt Count Lymph % (Auto) [place] % (Auto) Lymph # Seg Neutrophils % Seg Neuts % (Manual) Lymphocytes % (Manual) Lymphocytes # (Manual) PT INR APTT ABG pH 7.456 H ABG pO2 64.8 L ABG O2 Saturation 93.6 L ABG Base Excess ABG Hemoglobin Oxyhemoglobin 91.4 L Sodium Potassium Chloride Carbon Dioxide BUN Creatinine Glucose POC Glucose 173 H 260 H Phosphorus Magnesium Troponin T NT-Pro-B Natriuret Pep Triglycerides Cholesterol LDL Cholesterol Direct HDL Cholesterol 05/05/19 05/06/19 05/06/19 18:34 00:49 04:20 WBC 12.8 H RDW 16.9 H Plt Count Lymph % (Auto) [place] % (Auto) Lymph # Seg Neutrophils % Seg Neuts % (Manual) Lymphocytes % (Manual) Lymphocytes # (Manual) PT INR APTT ABG pH ABG pO2 ABG O2 Saturation ABG Base Excess ABG Hemoglobin Oxyhemoglobin Sodium Potassium Chloride Carbon Dioxide BUN Creatinine Glucose POC Glucose 334 H 230 H Phosphorus Magnesium Troponin T NT-Pro-B Natriuret Pep Triglycerides Cholesterol LDL Cholesterol Direct HDL Cholesterol 05/06/19 05/06/19 05/06/19 04:20 04:20 05:39 WBC RDW Plt Count Lymph % (Auto) [place] % (Auto) Lymph # Seg Neutrophils % Seg Neuts % (Manual) Lymphocytes % (Manual) Lymphocytes # (Manual) PT INR APTT ABG pH ABG pO2 62.9 L ABG O2 Saturation 92.5 L ABG Base Excess ABG Hemoglobin Oxyhemoglobin 90.5 L Sodium Potassium Chloride 95.1 L Carbon Dioxide BUN 40 H Creatinine 3.6 H Glucose 267 H POC Glucose Phosphorus Magnesium Troponin T NT-Pro-B Natriuret Pep Triglycerides 380 H Cholesterol LDL Cholesterol Direct HDL Cholesterol 05/06/19 06:08 WBC RDW Plt Count Lymph % (Auto) [place] % (Auto) Lymph # Seg Neutrophils % Seg Neuts % (Manual) Lymphocytes % (Manual) Lymphocytes # (Manual) PT INR APTT ABG pH ABG pO2 ABG O2 Saturation ABG Base Excess ABG Hemoglobin Oxyhemoglobin Sodium Potassium Chloride Carbon Dioxide BUN Creatinine Glucose POC Glucose 325 H Phosphorus Magnesium Troponin T NT-Pro-B Natriuret Pep Triglycerides Cholesterol LDL Cholesterol Direct HDL Cholesterol
[2019-05-06] MEDS: fentaNYL 100 MCG/2 ML INJ IV SCH ×7 (07:55→22:24)
[2019-05-06] MEDS: IPRATROPIUM/ALBUTEROL SULFATE 3 ML AMPUL.NEB IH SCH ×4 (08:27→22:13)
[2019-05-06] MEDS: ARFORMOTEROL 15 MCG/2 ML NEBU IH SCH ×2 (08:27→22:13)
[2019-05-06] MEDS: BUDESONIDE 0.5 MG/2 ML NEBU IH SCH ×2 (08:28→22:13)
[2019-05-06] MEDS: allopurinoL 100 MG TAB PO SCH (09:34)
[2019-05-06] MEDS: busPIRone 10 MG TAB PO SCH ×2 (09:34→22:30)
[2019-05-06] MEDS: SODIUM BICARBONATE 650 MG TAB PO SCH ×2 (09:34→22:31)
[2019-05-06] MEDS: FAMOTIDINE 10 MG TAB PO SCH ×2 (09:34→22:32)
[2019-05-06] MEDS: ASPIRIN EC 81 MG TAB PO SCH (09:35)
[2019-05-06] MEDS: HEPARIN 5,000 UNIT/1 ML VIAL SUB-Q SCH ×2 (09:35→22:24)
[2019-05-06] MEDS: VALSARTAN 160MG TAB PO SCH ×2 (09:46→22:29)
[2019-05-06] MEDS: METOPROLOL TARTRATE 50 MG TAB PO SCH ×2 (09:46→22:32)
--- NOTE | 2019-05-06 10:08 | XRay Report ---
ABDOMEN 1 VIEW(S) INDICATION / CLINICAL INFORMATION: not tolerating TF, absent bowel sounds. COMPARISON: 05/05/2019, 05/04/2019. FINDINGS: TUBES / LINES: Gastric tube is again noted with tip overlying the left mid/lower abdomen. This is not significantly changed from prior exam and may be within a distended stomach. BOWEL GAS PATTERN: No gas-distended loops of intestines. FREE AIR / EXTRALUMINAL GAS: No definite free intraperitoneal gas, although evaluation is limited on supine imaging. ADDITIONAL FINDINGS: Vascular stents within the proximal iliac arteries are again noted. Exam is limited as the right and inferior abdomen/pelvis are not included on this study. IMPRESSION: No significant change in nasogastric tube with tip overlying the left lower abdomen. This may be with in a distended stomach. No distended loops of intestines in the partially visualized abdomen. Signer Name: Tyron Coe MD Signed: 05/06/2019 10:03 AM Workstation Name: [id number]
--- NOTE | 2019-05-06 10:33 | Progress Note ---
Assessment and Plan Impression: * End stage renal disease * Acute on chronic hypoxic respiratory failure --wears 2-3L NC oxygen at home * COPD exacerbation * Chronic diastolic heart failure * Hypertension * Anemia secondary to ESRD * Secondary hyperparathyroidism Plan: * Continue MWF schedule. No acute need for HD today * UF as tolerated * Vent management per pulmonary medicine * Dose medications for renal function * Epogen TIW prn * Nutrition per primary team Subjective Date of service: 05/06/19 Principal diagnosis: Acute resp failure,COPd exacerbation Interval history: No acute events overnight. Remains intuabed. FiO2 25%. PS trial today. Objective - Vital Signs Vital signs: Vital Signs - 12hr 05/05/19 05/05/19 05/06/19 23:01 23:30 00:00 Temperature 98.5 F Pulse Rate 101 H 106 H 100 H Pulse Rate [ Anterior Bilateral] Pulse Rate [ 100 H From Monitor] Respiratory 28 H 28 H Rate Respiratory Rate [Anterior Bilateral] Blood Pressure 107/70 114/43 O2 Sat by Pulse 99 100 100 Oximetry 05/06/19 05/06/19 05/06/19 00:01 00:31 00:55 Temperature Pulse Rate 108 H 100 H 98 H Pulse Rate [ Anterior Bilateral] Pulse Rate [ From Monitor] Respiratory 27 H 28 H Rate Respiratory Rate [Anterior Bilateral] Blood Pressure 107/85 96/63 131/93 O2 Sat by Pulse 100 94 95 Oximetry 05/06/19 05/06/19 05/06/19 01:00 01:30 02:00 Temperature Pulse Rate 99 H 101 H 99 H Pulse Rate [ Anterior Bilateral] Pulse Rate [ From Monitor] Respiratory 28 H 28 H 28 H Rate Respiratory Rate [Anterior Bilateral] Blood Pressure 138/99 151/73 146/78 O2 Sat by Pulse 95 96 96 Oximetry 05/06/19 05/06/19 05/06/19 02:31 03:00 03:31 Temperature Pulse Rate 99 H 99 H 105 H Pulse Rate [ Anterior Bilateral] Pulse Rate [ From Monitor] Respiratory 28 H 28 H 17 Rate Respiratory Rate [Anterior Bilateral] Blood Pressure 102/56 136/114 173/152 O2 Sat by Pulse 96 97 95 Oximetry 05/06/19 05/06/19 05/06/19 04:00 04:01 04:31 Temperature 97.8 F Pulse Rate 110 H 104 H 105 H Pulse Rate [ Anterior Bilateral] Pulse Rate [ 110 H From Monitor] Respiratory 28 H 19 Rate Respiratory Rate [Anterior Bilateral] Blood Pressure 173/152 173/152 O2 Sat by Pulse 94 96 95 Oximetry 05/06/19 05/06/19 05/06/19 04:57 05:00 05:14 Temperature Pulse Rate 105 H 107 H 115 H Pulse Rate [ Anterior Bilateral] Pulse Rate [ From Monitor] Respiratory 29 H Rate Respiratory Rate [Anterior Bilateral] Blood Pressure 167/109 186/109 186/109 O2 Sat by Pulse 95 Oximetry 05/06/19 05/06/19 05/06/19 05:30 05:55 06:01 Temperature Pulse Rate 108 H 110 H 108 H Pulse Rate [ Anterior Bilateral] Pulse Rate [ From Monitor] Respiratory 44 H 22 Rate Respiratory Rate [Anterior Bilateral] Blood Pressure 139/75 145/102 148/100 O2 Sat by Pulse 94 95 94 Oximetry 05/06/19 05/06/19 05/06/19 06:30 07:00 07:31 Temperature Pulse Rate 108 H 109 H 113 H Pulse Rate [ Anterior Bilateral] Pulse Rate [ From Monitor] Respiratory 30 H 26 H 19 Rate Respiratory Rate [Anterior Bilateral] Blood Pressure 163/86 143/92 157/82 O2 Sat by Pulse 94 94 94 Oximetry 05/06/19 05/06/19 05/06/19 08:00 08:30 08:31 Temperature 98.7 F Pulse Rate 106 H 110 H Pulse Rate [ 109 H Anterior Bilateral] Pulse Rate [ 99 H From Monitor] Respiratory 29 H 29 H Rate Respiratory 30 H Rate [Anterior Bilateral] Blood Pressure 142/91 129/98 O2 Sat by Pulse 99 97 Oximetry 05/06/19 05/06/19 05/06/19 08:55 09:01 09:46 Temperature Pulse Rate 107 H 108 H Pulse Rate [ Anterior Bilateral] Pulse Rate [ From Monitor] Respiratory 32 H 38 H Rate Respiratory Rate [Anterior Bilateral] Blood Pressure 158/91 O2 Sat by Pulse 99 Oximetry 05/06/19 10:01 Temperature Pulse Rate Pulse Rate [ Anterior Bilateral] Pulse Rate [ From Monitor] Respiratory 29 H Rate Respiratory Rate [Anterior Bilateral] Blood Pressure O2 Sat by Pulse Oximetry - General Appearance General appearance: intubated, frail EENT: other (ETT in place) Respiratory: Present: Wheezes Cardiology: regular, S1S2 Gastrointestinal: hypoactive bowel sounds Integumentary: no rash, warm and dry Musculoskeletal: other (no edema) - Lab 03/19/20 04:20 05/06/19 04:20 Most recent lab results ABG pH 7.430 pH Units (7.350-7.450) 05/06/19 05:39 ABG pCO2 34.7 mm Hg 05/06/19 05:39 ABG pO2 62.9 mm Hg (80.0-90.0) L 05/06/19 05:39 ABG HCO3 22.5 mmol/L (20.0-26.0) 05/06/19 05:39 ABG O2 Saturation 92.5 % (95.0-99.0) L 05/06/19 05:39 Calcium 9.3 mg/dL (8.4-10.2) 05/06/19 04:20 Phosphorus 12.90 mg/dL (2.5-4.5) H 05/03/19 09:44 Magnesium 2.70 mg/dL (1.7-2.3) H 05/03/19 09:44 Medications & Allergies - Medications Allergies/Adverse Reactions: Allergies latex Allergy (Verified 02/05/19 13:51) Hives milk Allergy (Verified 02/05/19 13:51) Rash Home Medications: Home Medications Medication Instructions Recorded Confirmed Last Taken Type Metoprolol [Lopressor TAB] 50 mg PO BID #60 tablet 01/27/18 05/03/19 04/11/19 Rx Montelukast [Singulair] 10 mg PO QPM #30 tablet 01/27/18 05/03/19 04/11/19 Rx Pravastatin [Pravachol] 40 mg PO QHS #30 tablet 01/27/18 05/03/19 04/11/19 Rx allopurinoL [Zyloprim] 100 mg PO QDAY #30 tablet 01/27/18 05/03/19 04/11/19 Rx Famotidine [Pepcid] 20 mg PO BID 06/17/18 05/03/19 04/11/19 History Fluticasone/Vilanterol [Breo 1 each IH BID #1 blst.w.dev 12/31/18 05/03/19 04/11/19 Rx Ellipta 200-25 Mcg INH] Tiotropium Childress [Spiriva 4 gm IH DAILY #1 mist.inhal 12/31/18 05/03/19 04/11/19 Rx Respimat] Aspirin EC [Halfprin EC] 81 mg PO QDAY #30 tablet. 02/18/19 05/03/19 04/11/19 Rx ISOSORBIDE MONOnitrate [Imdur ER] 30 mg PO QDAY #30 tablet 02/18/19 05/03/19 Unknown Rx glipiZIDE [Glucotrol] 5 mg PO QDAY #30 tablet 02/18/19 05/03/19 Unknown Rx ALBUTEROL NEB's [Proventil 0.083% 2.5 mg IH Q4HRT PRN #30 nebu 04/15/19 05/03/19 Unknown Rx NEBS] Furosemide [Lasix] 20 mg PO QDAY #30 tablet 04/15/19 05/03/19 Unknown Rx Ipratropium/Albuterol Sulfate 2 puff IH BID #1 unit 04/15/19 05/03/19 Unknown Rx [Combivent Respimat] Olanzapine/Fluoxetine HCl [Symbyax 1 each PO QHS #30 capsule 04/15/19 05/03/19 Unknown Rx 3-25 mg] Sodium Bicarbonate 650 mg PO BID #60 tablet 04/15/19 05/03/19 Unknown Rx amLODIPine 10 mg PO DAILY #30 tablet 04/15/19 05/03/19 Unknown Rx cefUROXime [Ceftin] 250 mg PO Q12H #14 tablet 04/15/19 05/03/19 Unknown Rx predniSONE [Deltasone] 1 tab PO QDAY #91 tab 04/15/19 05/03/19 Unknown Rx traMADoL [Ultram 50 MG tab] 50 mg PO Q8H PRN #15 tab 04/15/19 05/03/19 04/11/19 Rx Active Medications: Generic Name Dose Route Start Last Admin Trade Name Freq PRN Reason Stop Dose Admin Acetaminophen 650 mg 04/30/19 17:44 05/05/19 15:22 Tylenol PO 650 mg Q4H PRN Administration Pain MILD(1-3)/Fever >100.5/HERRMANN Albuterol 2.5 mg 04/30/19 18:32 05/02/19 04:49 Proventil IH 2.5 mg Q3H PRN Administration Shortness Of Breath Albuterol/Ipratropium 1 ampul 04/30/19 20:00 05/06/19 08:27 Duoneb *Not For Prn Use* IH 1 ampul QIDRT KVNG Administration Allopurinol 100 mg 04/30/19 18:00 05/06/19 09:34 Zyloprim PO 100 mg QDAY KVNG Administration Lipase/Protease/Amylase 1 each 05/04/19 14:58 Pancrejessica Gould 10,500 Unit FEEDTUBE PRN PRN For Clogged Feeding Tube Arformoterol Tartrate 15 mcg 05/01/19 08:00 05/06/19 08:27 Brovana Nebu IH 15 mcg Q12HRT KVNG Administration Aspirin 81 mg 04/30/19 18:00 05/06/19 09:35 Halfprin Ec PO 81 mg QDAY KVNG Administration Budesonide 0.5 mg 05/03/19 11:00 05/06/19 08:28 Pulmicort IH 0.5 mg Q12HRT KVNG Administration Buspirone HCl 15 mg 05/04/19 10:00 05/06/19 09:34 Buspar PO 15 mg BID KVNG Administration Famotidine 10 mg 04/30/19 22:00 05/06/19 09:34 Pepcid PO 10 mg BID KVNG Administration Fentanyl 50 mcg 05/06/19 08:00 05/06/19 10:01 Sublimaze IV 50 mcg Q2H KVNG Administration Heparin Sodium (Porcine) 5,000 unit 05/04/19 22:00 05/06/19 09:35 Heparin SUB-Q 5,000 unit Q12HR KVNG Administration Hydralazine HCl 5 mg 05/01/19 22:47 05/06/19 04:57 Apresoline IV 5 mg Q6HR PRN Administration SBP > 160 AND/OR DBP > 100 Hydrophilic Ointment 1 applic 05/04/19 09:42 Vaseline Lip Therapy TP Q2HR PRN Dry Lips Sodium Chloride 100 mls @ 999 mls/hr 04/30/19 13:29 Nacl 0.9% IV ALBINO PRN Hypotension Levofloxacin/Dextrose 500 mg in 100 mls @ 100 mls/hr 05/02/19 19:00 05/04/19 18:06 Levaquin 500mg/100ml IV 05/10/19 19:59 100 mls/hr Q48H KVNG Administration Propofol 1,000 mg in 100 mls @ 1.482 mls/hr 05/04/19 09:00 05/05/19 21:24 Diprivan 10 Mg/Ml IV 15 mcg/kg/min TITR KVNG 4.446 mls/hr Administration Protocol 5 MCG/KG/MIN Insulin Human Lispro 0 unit 05/05/19 18:00 05/06/19 06:25 Humalog SUB-Q 3 unit Q6HR KVNG Administration Protocol Isosorbide Dinitrate 10 mg 05/04/19 14:00 05/06/19 05:14 Isordil Titradose PO 10 mg Q8HR KVNG Administration Lorazepam 1 mg 05/02/19 11:08 05/03/19 16:59 Ativan IV 1 mg Q4H PRN Administration Anxiety Methylprednisolone Sodium Succinate 60 mg 05/04/19 09:00 05/06/19 09:33 Solu-Medrol IV 60 mg Q6H [facility] Administration Metoprolol Tartrate 50 mg 04/30/19 22:00 05/06/19 09:46 Metoprolol PO 50 mg BID [facility] Administration Montelukast Sodium 10 mg 04/30/19 19:00 05/05/19 18:17 Singulair PO Not Given QPM [facility] Multi-Ingred Cream/Lotion/Oil/Oint 1 applic 05/04/19 09:42 Artificial Tears Ophth Oint OU Q4HR PRN Dry Eye(s) Pravastatin Sodium 40 mg 04/30/19 22:00 05/05/19 21:23 Pravachol PO 40 mg QHS [facility] Administration Simple Syrup 15 ml 05/04/19 14:58 Simple Syrup FEEDTUBE PRN PRN Hypoglycemia Simple Syrup 30 ml 05/04/19 14:58 Simple Syrup FEEDTUBE PRN PRN Hypoglycemia Sodium Bicarbonate 650 mg 04/30/19 22:00 05/06/19 09:34 Sodium Bicarbonate PO 650 mg BID [facility] Administration Sodium Bicarbonate 325 mg 05/04/19 14:58 Sodium Bicarbonate FEEDTUBE PRN PRN For Clogged Feeding Tube Sodium Chloride 10 ml 04/30/19 22:00 05/06/19 09:36 Sodium Chloride Flush Syringe 10 Ml IV 10 ml BID KVNG Administration Sodium Chloride 10 ml 04/30/19 17:44 05/01/19 03:55 Sodium Chloride Flush Syringe 10 Ml IV 10 ml PRN PRN Administration LINE FLUSH Valsartan 160 mg 04/30/19 22:00 05/06/19 09:46 Diovan PO 160 mg BID KVNG Administration
[2019-05-06] MEDS: LORazepam 2 MG/ML VIAL IV PRN (10:53)
[2019-05-06 11:40] LABS: ABG Base Excess -0.5 mmol/L (-2.0-3.0); ABG HCO3 25.6 mmol/L (20.0-26.0); ABG Methemoglobin 0.7 % (0.0-1.5); ABG Oxygen Saturation 85.5 % (95.0-99.0); ABG PCO2 48.1 mm Hg; ABG PH 7.344 pH Units (7.350-7.450); ABG PO2 56.8 mm Hg (80.0-90.0)
[2019-05-06] MEDS: MONTELUKAST 10 MG TAB PO SCH (18:12)
--- NOTE | 2019-05-06 20:33 | Progress Note ---
Assessment and Plan Assessment and plan: 78 yo AA woman with a history of TX, Diastolic CHF, CAD S/P CABG, DM, Asthma, OA, Anxiety disorder, Chronic Respiratory Failure on 2-3 L Home oxygen due to end stage COPD and ESRD on HD(M,W,F) who presented to [facility] ED with SOB and wheezing for the last 2 days. No improvement with home breathing treatments. Patient was found tachypneic and respiratory distress upon their arrival to the house. Patient received albuterol 7.5 mg, started initiation of mag 1 g, Decadron 20 mg IV, and required CPAP and additional oxygen support during transport to the hospital. Patient states she has a history of one intubation. The last 3 days she has been short of breath with wheezing and cough productive of yellow sputum. She is compliant with dialysis and is due today. Patient has very little urine output daily. Patient did complain of chest pain prior to arrival which has improved with CPAP support. Patient very SOB and wheezing during my exam.Patient has not been exposed to anyone with fever and Dry cough.No recent travel.No exposure to foreign traveled patients. * Still on full ventilaotry support. Not tolerating wean becomes tachypenic, fentanyl for pain control added, continue steroids Acute on chronic hypoxic respiratory failure Now placed on Mechanical ventilation Patient chronically on home oxygen Continue aggressive neb treatments Steroids being tapered Pulmonary consult note reviewed Continue management per Dr. Buck's recommendations COPD exacerbation: Continue neb treatments, antibiotics, steroids and oxygen supplement History of anxiety disorder Continue Klonopin Hyperglycemia Continue to monitor likely induced by steroid use. end-stage renal disease: On hemodialysis Friday and Friday Nephrology note reviewed Acute metabolic acidosis Chronic diastolic heart failure, Hypertension, Anemia of chronic kidney disease The high probability of a clinically significant, sudden or life threatening deterioration of the [pulmonary] system(s) required my full and direct attention, intervention and personal management. The aggregate critical care time was [35] minutes. This time is in addition to time spent performing reported procedures but includes the following: [x] Data Review and interpretation [x] Patient assessment and monitoring of vital signs [x] Documentation [x] Medication orders and management History Interval history: Patient seen and examined still on mechanical ventilatory support agitated at times, trial of CPAP this morning, off sedation but requiring pain meds Hospitalist Physical - Physical exam Narrative exam: VITAL SIGNS: Reviewed. GENERAL: The patient appears chronically ill, agitated, on mechanical ventilation vital signs as documented. HEAD: No signs of head trauma. EYES: Pupils are equal. EARS: Hearing grossly intact. MOUTH: ET tube in place. NECK: No adenopathy, no JVD. CHEST: Chest with clear breath sounds bilaterally. tachypenia No wheezes, rales, or rhonchi. CARDIAC: Regular rate and rhythm. S1 and S2, without murmurs, gallops, or rubs. VASCULAR: No Edema. Peripheral pulses normal and equal in all extremities. ABDOMEN: Soft, non tender and non distended. No rebound or guarding, and no masses palpated. Bowel Sounds normal. MUSCULOSKELETAL: moving all around NEUROLOGIC EXAM: Disoriented, currently on full mechanical support PSYCHIATRIC: Unable to assess SKIN: detail exam as documented in skin assessment - Constitutional Vitals: Temp Pulse Resp BP Pulse Ox 98.5 F 89 28 H 114/78 96 05/06/19 16:00 05/06/19 18:00 05/06/19 19:25 05/06/19 18:00 05/06/19 18:00 General appearance: Present: mild distress, well-nourished ROB score - Rob Score Age > 65: (1) Yes Aspirin use within the Past 7 Days: (1) Yes 3 or more CAD Risk Factors: (1) Yes 2 or more Angina events in past 24 hrs: (0) No Known CAD with more than 50% Stenosis: (0) No Elevated Cardiac Markers: (0) No ST Deviation Greater than 0.5mm: (0) No ROB Score: 3 Results - Labs CBC & Chem 7: 05/06/19 04:20 05/06/19 04:20 Labs: Laboratory Last Values WBC 12.8 K/mm3 (4.5-11.0) H 05/06/19 04:20 RBC 4.54 M/mm3 (3.65-5.03) 05/06/19 04:20 Hgb 13.1 gm/dl (10.1-14.3) 05/06/19 04:20 Hct 41.8 % (30.3-42.9) 05/06/19 04:20 MCV 92 fl (79-97) 05/06/19 04:20 MCH 29 pg (28-32) 05/06/19 04:20 MCHC 31 % (30-34) 05/06/19 04:20 RDW 16.9 % (13.2-15.2) H 05/06/19 04:20 Plt Count 170 K/mm3 (140-440) 05/06/19 04:20 Lymph % (Auto) 10.9 % (13.4-35.0) L 04/30/19 11:32 [place] % (Auto) 7.4 % (0.0-7.3) H 04/30/19 11:32 Eos % (Auto) 0.4 % (0.0-4.3) 04/30/19 11:32 Baso % (Auto) 0.7 % (0.0-1.8) 04/30/19 11:32 Lymph # 0.8 K/mm3 (1.2-5.4) L 04/30/19 11:32 [place] # 0.5 K/mm3 (0.0-0.8) 04/30/19 11:32 Eos # 0.0 K/mm3 (0.0-0.4) 04/30/19 11:32 Baso # 0.1 K/mm3 (0.0-0.1) 04/30/19 11:32 Add Manual Diff Complete 05/06/19 04:20 Total Counted 100 05/06/19 04:20 Seg Neutrophils % Acupuncture Physician 05/06/19 04:20 Seg Neuts % (Manual) 93.0 % (40.0-70.0) H 05/06/19 04:20 Band Neutrophils % 0 % 05/06/19 04:20 Lymphocytes % (Manual) 2.0 % (13.4-35.0) L 05/06/19 04:20 Reactive Lymphs % (Man) 0 % 05/06/19 04:20 Monocytes % (Manual) 5.0 % (0.0-7.3) 05/06/19 04:20 Eosinophils % (Manual) 0 % (0.0-4.3) 05/06/19 04:20 Basophils % (Manual) 0 % (0.0-1.8) 05/06/19 04:20 Metamyelocytes % 0 % 05/06/19 04:20 Myelocytes % 0 % 05/06/19 04:20 Promyelocytes % 0 % 05/06/19 04:20 Blast Cells % 0 % 05/06/19 04:20 Nucleated RBC % 1.0 % (0.0-0.9) H 05/06/19 04:20 Seg Neutrophils # 6.0 K/mm3 (1.8-7.7) 04/30/19 11:32 Seg Neutrophils # Man 11.9 K/mm3 (1.8-7.7) H 05/06/19 04:20 Band Neutrophils # 0.0 K/mm3 05/06/19 04:20 Lymphocytes # (Manual) 0.3 K/mm3 (1.2-5.4) L 05/06/19 04:20 Abs React Lymphs (Man) 0.0 K/mm3 05/06/19 04:20 Monocytes # (Manual) 0.6 K/mm3 (0.0-0.8) 05/06/19 04:20 Eosinophils # (Manual) 0.0 K/mm3 (0.0-0.4) 05/06/19 04:20 Basophils # (Manual) 0.0 K/mm3 (0.0-0.1) 05/06/19 04:20 Metamyelocytes # 0.0 K/mm3 05/06/19 04:20 Myelocytes # 0.0 K/mm3 05/06/19 04:20 Promyelocytes # 0.0 K/mm3 05/06/19 04:20 Blast Cells # 0.0 K/mm3 05/06/19 04:20 WBC Morphology Not Reportable 05/06/19 04:20 Hypersegmented Neuts Not Reportable 05/06/19 04:20 Hyposegmented Neuts Not Reportable 05/06/19 04:20 Hypogranular Neuts Not Reportable 05/06/19 04:20 Smudge Cells Not Reportable 05/06/19 04:20 Toxic Granulation Not Reportable 05/06/19 04:20 Toxic Vacuolation Not Reportable 05/06/19 04:20 Dohle Bodies Not Reportable 05/06/19 04:20 Pel[place]-Huet Anomaly Not Reportable 05/06/19 04:20 Ariel Rods Not Reportable 05/06/19 04:20 Platelet Estimate Consistent w auto 05/06/19 04:20 Clumped Platelets Not Reportable 05/06/19 04:20 Plt Clumps, EDTA Not Reportable 05/06/19 04:20 Large Platelets Not Reportable 05/06/19 04:20 Giant Platelets Not Reportable 05/06/19 04:20 Platelet Satelliting Not Reportable 05/06/19 04:20 Plt Morphology Comment Not Reportable 05/06/19 04:20 RBC Morphology Not Reportable 05/06/19 04:20 Dimorphic RBCs Not Reportable 05/06/19 04:20 Polychromasia Not Reportable 05/06/19 04:20 Hypochromasia Not Reportable 05/06/19 04:20 Poikilocytosis Not Reportable 05/06/19 04:20 Anisocytosis 1+ 05/06/19 04:20 Microcytosis Not Reportable 05/06/19 04:20 Macrocytosis Not Reportable 05/06/19 04:20 Spherocytes Not Reportable 05/06/19 04:20 Pappenheimer Bodies Not Reportable 05/06/19 04:20 Sickle Cells Not Reportable 05/06/19 04:20 Target Cells Not Reportable 05/06/19 04:20 Tear Drop Cells Not Reportable 05/06/19 04:20 Ovalocytes Not Reportable 05/06/19 04:20 Helmet Cells Not Reportable 05/06/19 04:20 [place] Bodies Not Reportable 05/06/19 04:20 [place] Rings Not Reportable 05/06/19 04:20 [place] Cells Not Reportable 05/06/19 04:20 Bite Cells Not Reportable 05/06/19 04:20 Crenated Cell Not Reportable 05/06/19 04:20 Elliptocytes Not Reportable 05/06/19 04:20 Acanthocytes (Spur) Not Reportable 05/06/19 04:20 Rouleaux Not Reportable 05/06/19 04:20 Hemoglobin C Crystals Not Reportable 05/06/19 04:20 Schistocytes Not Reportable 05/06/19 04:20 Malaria parasites Not Reportable 05/06/19 04:20 [place] Bodies Not Reportable 05/06/19 04:20 Hem Pathologist Commnt No 05/06/19 04:20 PT 14.3 Sec. (12.2-14.9) 04/30/19 15:23 INR 1.10 (0.87-1.13) 04/30/19 15:23 APTT 37.2 Sec. (24.2-36.6) H 04/30/19 15:23 ABG pH 7.344 pH Units (7.350-7.450) L 05/06/19 11:15 ABG pCO2 48.1 mm Hg 05/06/19 11:15 ABG pO2 56.8 mm Hg (80.0-90.0) L 05/06/19 11:15 ABG HCO3 25.6 mmol/L (20.0-26.0) 05/06/19 11:15 ABG O2 Saturation 85.5 % (95.0-99.0) L 05/06/19 11:15 ABG O2 Content 15.3 (0.0-44) 05/06/19 11:15 ABG Base Excess -0.5 mmol/L (-2.0-3.0) 05/06/19 11:15 ABG Hemoglobin 13.0 gm/dl (12.0-16.0) 05/06/19 11:15 ABG Carboxyhemoglobin 1.4 % (0.0-5.0) 05/06/19 11:15 ABG Methemoglobin 0.7 % (0.0-1.5) 05/06/19 11:15 Oxyhemoglobin 83.8 % (95.0-99.0) L 05/06/19 11:15 FiO2 25 % 05/06/19 11:15 Sodium 140 mmol/L (137-145) 05/06/19 04:20 Potassium 4.0 mmol/L (3.6-5.0) 05/06/19 04:20 Chloride 95.1 mmol/L (98-107) L 05/06/19 04:20 Carbon Dioxide 22 mmol/L (22-30) 05/06/19 04:20 Anion Gap 27 mmol/L 05/06/19 04:20 BUN 40 mg/dL (7-17) H 05/06/19 04:20 Creatinine 3.6 mg/dL (0.7-1.2) H 05/06/19 04:20 Estimated GFR 15 ml/min 05/06/19 04:20 BUN/Creatinine Ratio 11 % 05/06/19 04:20 Glucose 267 mg/dL (65-100) H 05/06/19 04:20 POC Glucose 172 (70-105) H 05/06/19 17:30 Hemoglobin A1c 5.6 % (4-6) 04/30/19 11:32 Calcium 9.3 mg/dL (8.4-10.2) 05/06/19 04:20 Phosphorus 12.90 mg/dL (2.5-4.5) H 05/03/19 09:44 Magnesium 2.70 mg/dL (1.7-2.3) H 05/03/19 09:44 Total Bilirubin 0.40 mg/dL (0.1-1.2) 05/01/19 12:43 AST 39 units/L (5-40) 05/01/19 12:43 ALT 23 units/L (7-56) 05/01/19 12:43 Alkaline Phosphatase 102 units/L (35-129) 05/01/19 12:43 Total Creatine Kinase Cancelled 04/30/19 14:20 CK-MB (CK-2) Cancelled 04/30/19 14:20 CK-MB (CK-2) Rel Index Cancelled 04/30/19 14:20 Troponin T 0.117 ng/mL (0.00-0.029) H* 04/30/19 14:20 NT-Pro-B Natriuret Pep 65652 pg/mL (0-900) H 04/30/19 14:20 Total Protein 6.6 g/dL (6.3-8.2) 05/01/19 12:43 Albumin 4.0 g/dL (3.9-5) 05/01/19 12:43 Albumin/Globulin Ratio 1.5 % 05/01/19 12:43 Triglycerides 380 mg/dL (2-149) H 05/06/19 04:20 Cholesterol 303 mg/dL (50-199) H 04/30/19 14:20 LDL Cholesterol Direct 190 mg/dL (50-130) H 04/30/19 14:20 HDL Cholesterol 105 mg/dL (40-59) H 04/30/19 14:20 Cholesterol/HDL Ratio 2.88 % 04/30/19 14:20 Hepatitis A IgM Ab Non-reactive (NonReactive) 04/30/19 14:20 Hep Bs Antigen Non-reactive (Negative) 04/30/19 14:20 Hep B Core IgM Ab Non-reactive (NonReactive) 04/30/19 14:20 Hepatitis C Antibody Non-reactive (NonReactive) 04/30/19 14:20 Microbiology: Microbiology 05/04/19 Unknown Tracheal Aspirate Sputum Culture - Preliminary [place]/IV: Voiding Method Incontinent IV Catheter Type [Left Mid-line Subclavian] IV Catheter Type [Right Upper INT / Saline Lock arm] IV Catheter Type [Right Hand] INT / Saline Lock IV Catheter Type [Left Forearm INT / Saline Lock ] IV Catheter Type [Right VAS Cath Internal Jugular] Active Medications - Current Medications Current Medications: Generic Name Dose Route Start Last Admin Trade Name Freq PRN Reason Stop Dose Admin Acetaminophen 650 mg 04/30/19 17:44 05/05/19 15:22 Tylenol PO 650 mg Q4H PRN Administration Pain MILD(1-3)/Fever >100.5/HERRMANN Albuterol 2.5 mg 04/30/19 18:32 05/02/19 04:49 Proventil IH 2.5 mg Q3H PRN Administration Shortness Of Breath Albuterol/Ipratropium 1 ampul 04/30/19 20:00 05/06/19 15:05 Duoneb *Not For Prn Use* IH Not Given QIDRT KVNG Allopurinol 100 mg 04/30/19 18:00 05/06/19 09:34 Zyloprim PO 100 mg QDAY KVNG Administration Lipase/Protease/Amylase 1 each 05/04/19 14:58 Pancreazivania [place] 10,500 Unit FEEDTUBE PRN PRN For Clogged Feeding Tube Arformoterol Tartrate 15 mcg 05/01/19 08:00 05/06/19 08:27 Brovana Nebu IH 15 mcg Q12HRT KVNG Administration Aspirin 81 mg 04/30/19 18:00 05/06/19 09:35 Halfprin Ec PO 81 mg QDAY KVNG Administration Budesonide 0.5 mg 05/03/19 11:00 05/06/19 08:28 Pulmicort IH 0.5 mg Q12HRT KVGN Administration Buspirone HCl 15 mg 05/04/19 10:00 05/06/19 09:34 Buspar PO 15 mg BID KVNG Administration Famotidine 10 mg 04/30/19 22:00 05/06/19 09:34 Pepcid PO 10 mg BID KVNG Administration Fentanyl 50 mcg 05/06/19 08:00 05/06/19 18:25 Sublimaze IV 50 mcg Q2H KVNG Administration Heparin Sodium (Porcine) 5,000 unit 05/04/19 22:00 05/06/19 09:35 Heparin SUB-Q 5,000 unit Q12HR KVNG Administration Hydralazine HCl 5 mg 05/01/19 22:47 05/06/19 04:57 Apresoline IV 5 mg Q6HR PRN Administration SBP > 160 AND/OR DBP > 100 Hydrophilic Ointment 1 applic 05/04/19 09:42 Vaseline Lip Therapy TP Q2HR PRN Dry Lips Sodium Chloride 100 mls @ 999 mls/hr 04/30/19 13:29 Nacl 0.9% IV ALBINO PRN Hypotension Levofloxacin/Dextrose 500 mg in 100 mls @ 100 mls/hr 05/02/19 19:00 05/06/19 18:12 Levaquin 500mg/100ml IV 05/10/19 19:59 100 mls/hr Q48H KVNG Administration Propofol 1,000 mg in 100 mls @ 1.482 mls/hr 05/04/19 09:00 05/06/19 07:50 Diprivan 10 Mg/Ml IV 0 mcg/kg/min TITR KVNG 0 mls/hr Titration Protocol 5 MCG/KG/MIN Insulin Human Lispro 0 unit 05/05/19 18:00 05/06/19 18:24 Humalog SUB-Q 3 unit Q6HR KVNG Administration Protocol Isosorbide Dinitrate 10 mg 05/04/19 14:00 05/06/19 15:11 Isordil Titradose PO 10 mg Q8HR KVNG Administration Lorazepam 1 mg 05/02/19 11:08 05/06/19 10:53 Ativan IV 1 mg Q4H PRN Administration Anxiety Methylprednisolone Sodium Succinate 60 mg 05/04/19 09:00 05/06/19 15:11 Solu-Medrol IV 60 mg Q6H KVNG Administration Metoprolol Tartrate 50 mg 04/30/19 22:00 05/06/19 09:46 Metoprolol PO 50 mg BID KVNG Administration Montelukast Sodium 10 mg 04/30/19 19:00 05/06/19 18:12 Singulair PO 10 mg QPM KVNG Administration Multi-Ingred Cream/Lotion/Oil/Oint 1 applic 05/04/19 09:42 Artificial Tears Ophth Oint OU Q4HR PRN Dry Eye(s) Pravastatin Sodium 40 mg 04/30/19 22:00 05/05/19 21:23 Pravachol PO 40 mg QHS KVNG Administration Simple Syrup 15 ml 05/04/19 14:58 Simple Syrup FEEDTUBE PRN PRN Hypoglycemia Simple Syrup 30 ml 05/04/19 14:58 Simple Syrup FEEDTUBE PRN PRN Hypoglycemia Sodium Bicarbonate 650 mg 04/30/19 22:00 05/06/19 09:34 Sodium Bicarbonate PO 650 mg BID KVNG Administration Sodium Bicarbonate 325 mg 05/04/19 14:58 Sodium Bicarbonate FEEDTUBE PRN PRN For Clogged Feeding Tube Sodium Chloride 10 ml 04/30/19 22:00 05/06/19 09:36 Sodium Chloride Flush Syringe 10 Ml IV 10 ml BID KVNG Administration Sodium Chloride 10 ml 04/30/19 17:44 05/01/19 03:55 Sodium Chloride Flush Syringe 10 Ml IV 10 ml PRN PRN Administration LINE FLUSH Valsartan 160 mg 04/30/19 22:00 05/06/19 09:46 Diovan PO 160 mg BID KVNG Administration Nutrition/Malnutrition Assess - Dietary Evaluation Nutrition/Malnutrition Findings: Nutrition Notes Start: 05/04/19 11:09 Freq: Status: Active Protocol: Document 05/06/19 08:23 LP (Rec: 05/06/19 08:27 LP [id number]) Nutrition Notes Initial or Follow up Reassessment Current Diagnosis CKD (stage V CKD),COPD, Coronary Artery Disease, Diabetes,Heart Failure, Respiratory Failure Current Diet Nepro at 30ml/hr Labs/Tests Reviewed Pertinent Medications Reviewed Height 5 ft Weight 50.6 kg [place] Body Weight (kg) 45.45 BMI 21.7 Weight Status Appropriate Subjective/Other Information Pt tolerating TF at goal rate. Pt remains on vent. Burn Absent Trauma Absent GI Symptoms None Difficulty In Swallowing Current % PO Negligible Minimum of two criteria Yes Interpretation of Weight Loss (severe) >5% in 1 month Fluid Accumulation Mild (non-severe) Reduced Reproduction Artist Strength Measurably Reduced (severe) #2 Nutrition Diagnosis Inadequate oral intake Diagnosis Progress(for reassessment Continues documentation) #1 Nutrition Diagnosis Malnutrition Diagnosis Progress(for reassessment Continues documentation) Is patient on ventilator? Yes Is Patient Ambulatory and/or Out of Bed No REE-([place]-St. Jeor-confined to bed) [phone] Calculation Used for Recommendations [place]-St Jeor Additional Notes Protein: 59-98g (1.2-2g/kg) Fluid: per MD Nutrition Intervention Change Diet Order: TF Nutrition Support: Nepro 1.8 at 30 ml/hr Flush 130 ml q4h Kcal 1,296 Protein (gm) 58 Fluid (mL) 523 Goal #1 Meet at least 80% of kcal and protein needs via TF Anticipated Discharge Needs: Unable to determine at this time Follow-Up By: 05/10/19 Additional Comments Follow for TF tolerance
[2019-05-06] MEDS: PRAVASTATIN 40 MG TAB PO SCH (22:31)
[2019-05-07] MEDS: INSULIN LISPRO 100 UNIT/ML SUB-Q SCH ×4 (00:26→18:25)
[2019-05-07] MEDS: ISOSORBIDE DINITRATE 10 MG TAB PO SCH ×4 (00:26→22:08)
[2019-05-07] MEDS: fentaNYL 100 MCG/2 ML INJ IV SCH ×13 (00:30→22:06)
[2019-05-07] MEDS: methylPREDNISolone Sod Succinate 125 MG/2 ML INJ IV SCH ×4 (03:14→22:07)
--- NOTE | 2019-05-07 04:31 | XRay Report ---
CHEST 1 VIEW INDICATION: follow up respiratory failure. COMPARISON: FINDINGS: SUPPORT DEVICES: Endotracheal tubes in good position. Hemodialysis catheters tip in superior vena cav a. Nasogastric tubes in place. HEART / MEDIASTINUM: No significant abnormality. LUNGS / PLEURA: No significant pulmonary or pleural abnormality. No pneumothorax. ADDITIONAL FINDINGS: Median sternotomy changes are present. IMPRESSION: 1. No acute cardiopulmonary disease Signer Name: Christopher Edward MD Signed: 05/07/2019 4:27 AM Workstation Name: [id number]
[2019-05-07 05:37] LABS: ABG Base Excess -3.3 mmol/L (-2.0-3.0); ABG HCO3 21.8 mmol/L (20.0-26.0); ABG Methemoglobin 0.7 % (0.0-1.5); ABG Oxygen Saturation 83.6 % (95.0-99.0); ABG PCO2 39.7 mm Hg; ABG PH 7.358 pH Units (7.350-7.450); ABG PO2 51.8 mm Hg (80.0-90.0)
[2019-05-07] MEDS: LORazepam 2 MG/ML VIAL IV PRN ×3 (07:30→17:12)
[2019-05-07] MEDS: IPRATROPIUM/ALBUTEROL SULFATE 3 ML AMPUL.NEB IH SCH ×4 (08:54→20:58)
[2019-05-07] MEDS: ARFORMOTEROL 15 MCG/2 ML NEBU IH SCH ×2 (08:54→20:57)
[2019-05-07] MEDS: BUDESONIDE 0.5 MG/2 ML NEBU IH SCH ×2 (08:54→20:57)
--- NOTE | 2019-05-07 09:32 | Progress Note ---
Subjective Date of service: 05/07/19 Principal diagnosis: Acute resp failure,COPd exacerbation Interval history: No acute events. Tolerated PSV yesterday but I wasn't called with gas so not extubated. Objective Vital Signs - 12hr 05/06/19 05/06/19 05/06/19 22:01 22:13 22:24 Temperature Pulse Rate 103 H 105 H Pulse Rate [ Anterior Bilateral] Pulse Rate [ From Monitor] Respiratory 32 H 25 H Rate Respiratory Rate [Anterior Bilateral] Respiratory Rate [denies] Blood Pressure 161/90 161/90 O2 Sat by Pulse 89 93 Oximetry 05/06/19 05/06/19 05/06/19 22:29 22:30 22:32 Temperature Pulse Rate 101 H 100 H 99 H Pulse Rate [ Anterior Bilateral] Pulse Rate [ 101 H From Monitor] Respiratory 40 H Rate Respiratory Rate [Anterior Bilateral] Respiratory Rate [denies] Blood Pressure 161/90 107/67 107/67 O2 Sat by Pulse 100 Oximetry 05/06/19 05/06/19 05/06/19 22:37 23:00 23:31 Temperature Pulse Rate 104 H 94 H Pulse Rate [ 110 H Anterior Bilateral] Pulse Rate [ From Monitor] Respiratory 28 H 28 H Rate Respiratory 36 H Rate [Anterior Bilateral] Respiratory Rate [denies] Blood Pressure 104/65 139/72 O2 Sat by Pulse 95 88 Oximetry 05/07/19 05/07/19 05/07/19 00:00 00:30 00:52 Temperature 98.2 F Pulse Rate 101 H 91 H Pulse Rate [ Anterior Bilateral] Pulse Rate [ From Monitor] Respiratory 28 H 21 Rate Respiratory Rate [Anterior Bilateral] Respiratory Rate [denies] Blood Pressure 104/67 126/79 O2 Sat by Pulse 94 Oximetry 05/07/19 05/07/19 05/07/19 01:01 01:32 02:01 Temperature Pulse Rate 96 H 97 H 96 H Pulse Rate [ Anterior Bilateral] Pulse Rate [ From Monitor] Respiratory 27 H 34 H Rate Respiratory Rate [Anterior Bilateral] Respiratory Rate [denies] Blood Pressure 144/104 163/85 153/96 O2 Sat by Pulse 93 92 Oximetry 05/07/19 05/07/19 05/07/19 02:28 02:30 03:00 Temperature Pulse Rate 89 Pulse Rate [ Anterior Bilateral] Pulse Rate [ From Monitor] Respiratory 28 H 28 H Rate Respiratory Rate [Anterior Bilateral] Respiratory 26 H Rate [denies] Blood Pressure 98/63 O2 Sat by Pulse Oximetry 05/07/19 05/07/19 05/07/19 04:00 04:01 04:08 Temperature Pulse Rate 94 H 94 H Pulse Rate [ Anterior Bilateral] Pulse Rate [ From Monitor] Respiratory 25 H 28 H Rate Respiratory Rate [Anterior Bilateral] Respiratory Rate [denies] Blood Pressure 180/88 O2 Sat by Pulse Oximetry 05/07/19 05/07/19 05/07/19 04:30 05:01 05:15 Temperature 98.3 F Pulse Rate 86 Pulse Rate [ Anterior Bilateral] Pulse Rate [ From Monitor] Respiratory 28 H 28 H Rate Respiratory Rate [Anterior Bilateral] Respiratory Rate [denies] Blood Pressure 109/67 O2 Sat by Pulse 100 Oximetry 05/07/19 05/07/19 05/07/19 05:17 06:00 06:11 Temperature Pulse Rate 93 H Pulse Rate [ Anterior Bilateral] Pulse Rate [ From Monitor] Respiratory 24 22 Rate Respiratory Rate [Anterior Bilateral] Respiratory 22 Rate [denies] Blood Pressure 109/67 146/95 O2 Sat by Pulse Oximetry 05/07/19 05/07/19 05/07/19 07:00 07:11 08:00 Temperature 97.6 F Pulse Rate 89 92 H Pulse Rate [ Anterior Bilateral] Pulse Rate [ 92 H From Monitor] Respiratory 23 22 26 H Rate Respiratory Rate [Anterior Bilateral] Respiratory Rate [denies] Blood Pressure 171/87 O2 Sat by Pulse 97 100 Oximetry 05/07/19 05/07/19 05/07/19 08:01 08:03 08:54 Temperature Pulse Rate 99 H 87 Pulse Rate [ 87 Anterior Bilateral] Pulse Rate [ From Monitor] Respiratory 28 H 16 Rate Respiratory 28 H Rate [Anterior Bilateral] Respiratory Rate [denies] Blood Pressure 160/94 123/78 O2 Sat by Pulse 93 98 Oximetry Constitutional: appears uncomfortable Eyes: non-icteric ENT: other (orally intubated and sedated.) Neck: supple Effort: mildly labored Ascultation: Bilateral: rales Percussion: Bilateral: not dull Cardiovascular: other (sinus tach) Gastrointestinal: normoactive bowel sounds Neurologic: unable to assess CBC and BMP: 05/06/19 04:20 05/06/19 04:20 ABG, PT/INR, D-dimer: ABG ABG pH 7.358 pH Units (7.350-7.450) 05/07/19 05:25 ABG pCO2 39.7 mm Hg 05/07/19 05:25 ABG pO2 51.8 mm Hg (80.0-90.0) L 05/07/19 05:25 ABG O2 Saturation 83.6 % (95.0-99.0) L 05/07/19 05:25 PT/INR, D-dimer PT 14.3 Sec. (12.2-14.9) 04/30/19 15:23 INR 1.10 (0.87-1.13) 04/30/19 15:23 Abnormal lab findings: Abnormal Labs 04/30/19 04/30/19 04/30/19 10:12 11:32 11:32 WBC RDW 17.1 H Plt Count 84 L Lymph % (Auto) 10.9 L [place] % (Auto) 7.4 H Lymph # 0.8 L Seg Neutrophils % 80.6 H Seg Neuts % (Manual) Lymphocytes % (Manual) Nucleated RBC % Seg Neutrophils # Man Lymphocytes # (Manual) PT 28.3 H INR 2.59 H APTT ABG pH 7.347 L ABG pO2 221.9 H ABG O2 Saturation 99.3 H ABG Base Excess -2.2 L ABG Hemoglobin Oxyhemoglobin Sodium Potassium Chloride Carbon Dioxide BUN Creatinine Glucose POC Glucose Phosphorus Magnesium Troponin T NT-Pro-B Natriuret Pep Triglycerides Cholesterol LDL Cholesterol Direct HDL Cholesterol 04/30/19 04/30/19 04/30/19 14:20 15:23 18:05 WBC RDW Plt Count Lymph % (Auto) [place] % (Auto) Lymph # Seg Neutrophils % Seg Neuts % (Manual) Lymphocytes % (Manual) Nucleated RBC % Seg Neutrophils # Man Lymphocytes # (Manual) PT INR APTT 37.2 H ABG pH ABG pO2 79.2 L ABG O2 Saturation ABG Base Excess ABG Hemoglobin Oxyhemoglobin 94.4 L Sodium 146 H Potassium 3.2 L Chloride Carbon Dioxide BUN 39 H Creatinine 2.6 H Glucose POC Glucose Phosphorus Magnesium Troponin T 0.117 H* NT-Pro-B Natriuret Pep 52777 H Triglycerides 178 H Cholesterol 303 H LDL Cholesterol Direct 190 H HDL Cholesterol 105 H 04/30/19 05/01/19 05/01/19 22:20 00:48 04:46 WBC RDW Plt Count Lymph % (Auto) [place] % (Auto) Lymph # Seg Neutrophils % Seg Neuts % (Manual) Lymphocytes % (Manual) Nucleated RBC % Seg Neutrophils # Man Lymphocytes # (Manual) PT INR APTT ABG pH ABG pO2 98.3 H ABG O2 Saturation ABG Base Excess ABG Hemoglobin Oxyhemoglobin Sodium Potassium Chloride Carbon Dioxide BUN Creatinine Glucose POC Glucose 108 H 142 H Phosphorus Magnesium Troponin T NT-Pro-B Natriuret Pep Triglycerides Cholesterol LDL Cholesterol Direct HDL Cholesterol 05/01/19 05/01/19 05/01/19 12:43 12:43 13:27 WBC RDW 16.4 H Plt Count 132 L Lymph % (Auto) [place] % (Auto) Lymph # Seg Neutrophils % Seg Neuts % (Manual) 95.0 H Lymphocytes % (Manual) 3.0 L Nucleated RBC % Seg Neutrophils # Man Lymphocytes # (Manual) 0.2 L PT INR APTT ABG pH ABG pO2 ABG O2 Saturation ABG Base Excess ABG Hemoglobin Oxyhemoglobin Sodium Potassium Chloride 95.1 L Carbon Dioxide 21 L BUN 29 H Creatinine 3.2 H Glucose 137 H POC Glucose 114 H Phosphorus Magnesium Troponin T NT-Pro-B Natriuret Pep Triglycerides Cholesterol LDL Cholesterol Direct HDL Cholesterol 05/01/19 05/02/19 05/02/19 18:41 00:01 05:40 WBC RDW Plt Count Lymph % (Auto) [place] % (Auto) Lymph # Seg Neutrophils % Seg Neuts % (Manual) Lymphocytes % (Manual) Nucleated RBC % Seg Neutrophils # Man Lymphocytes # (Manual) PT INR APTT ABG pH ABG pO2 ABG O2 Saturation ABG Base Excess ABG Hemoglobin Oxyhemoglobin Sodium Potassium Chloride Carbon Dioxide BUN Creatinine Glucose POC Glucose 127 H 110 H 135 H Phosphorus Magnesium Troponin T NT-Pro-B Natriuret Pep Triglycerides Cholesterol LDL Cholesterol Direct HDL Cholesterol 05/02/19 05/02/19 05/03/19 13:06 19:14 09:44 WBC RDW 17.1 H Plt Count Lymph % (Auto) [place] % (Auto) Lymph # Seg Neutrophils % Seg Neuts % (Manual) Lymphocytes % (Manual) Nucleated RBC % Seg Neutrophils # Man Lymphocytes # (Manual) PT INR APTT ABG pH ABG pO2 ABG O2 Saturation ABG Base Excess ABG Hemoglobin Oxyhemoglobin Sodium Potassium Chloride Carbon Dioxide BUN Creatinine Glucose POC Glucose 152 H 117 H Phosphorus Magnesium Troponin T NT-Pro-B Natriuret Pep Triglycerides Cholesterol LDL Cholesterol Direct HDL Cholesterol 05/03/19 05/03/19 05/03/19 09:44 10:13 18:45 WBC RDW Plt Count Lymph % (Auto) [place] % (Auto) Lymph # Seg Neutrophils % Seg Neuts % (Manual) Lymphocytes % (Manual) Nucleated RBC % Seg Neutrophils # Man Lymphocytes # (Manual) PT INR APTT ABG pH 7.166 L* ABG pO2 ABG O2 Saturation 94.5 L ABG Base Excess -8.8 L ABG Hemoglobin 11.6 L Oxyhemoglobin 92.4 L Sodium Potassium 6.2 H* D Chloride 93.2 L Carbon Dioxide 13 L D BUN 93 H Creatinine 7.2 H D Glucose 138 H POC Glucose 128 H Phosphorus 12.90 H Magnesium 2.70 H Troponin T NT-Pro-B Natriuret Pep Triglycerides Cholesterol LDL Cholesterol Direct HDL Cholesterol 05/03/19 05/04/19 05/04/19 19:40 01:04 03:51 WBC 11.2 H RDW 16.6 H Plt Count Lymph % (Auto) [place] % (Auto) Lymph # Seg Neutrophils % Seg Neuts % (Manual) Lymphocytes % (Manual) Nucleated RBC % Seg Neutrophils # Man Lymphocytes # (Manual) PT INR APTT ABG pH ABG pO2 ABG O2 Saturation ABG Base Excess ABG Hemoglobin Oxyhemoglobin Sodium Potassium Chloride 92.7 L Carbon Dioxide BUN 26 H Creatinine 3.2 H D Glucose 129 H POC Glucose 134 H Phosphorus Magnesium Troponin T NT-Pro-B Natriuret Pep Triglycerides Cholesterol LDL Cholesterol Direct HDL Cholesterol 05/04/19 05/04/19 05/04/19 03:51 06:05 12:33 WBC RDW Plt Count Lymph % (Auto) [place] % (Auto) Lymph # Seg Neutrophils % Seg Neuts % (Manual) Lymphocytes % (Manual) Nucleated RBC % Seg Neutrophils # Man Lymphocytes # (Manual) PT INR APTT ABG pH ABG pO2 ABG O2 Saturation ABG Base Excess ABG Hemoglobin Oxyhemoglobin Sodium Potassium Chloride 92.5 L Carbon Dioxide 19 L BUN 39 H Creatinine 4.3 H Glucose 148 H POC Glucose 138 H 190 H Phosphorus Magnesium Troponin T NT-Pro-B Natriuret Pep Triglycerides Cholesterol LDL Cholesterol Direct HDL Cholesterol 05/04/19 05/04/19 05/04/19 18:25 23:57 Unknown WBC RDW Plt Count Lymph % (Auto) [place] % (Auto) Lymph # Seg Neutrophils % Seg Neuts % (Manual) Lymphocytes % (Manual) Nucleated RBC % Seg Neutrophils # Man Lymphocytes # (Manual) PT INR APTT ABG pH ABG pO2 ABG O2 Saturation ABG Base Excess -3.4 L ABG Hemoglobin Oxyhemoglobin 94.5 L Sodium Potassium Chloride Carbon Dioxide BUN Creatinine Glucose POC Glucose 190 H 119 H Phosphorus Magnesium Troponin T NT-Pro-B Natriuret Pep Triglycerides Cholesterol LDL Cholesterol Direct HDL Cholesterol 05/05/19 05/05/19 05/05/19 03:45 06:09 12:07 WBC RDW Plt Count Lymph % (Auto) [place] % (Auto) Lymph # Seg Neutrophils % Seg Neuts % (Manual) Lymphocytes % (Manual) Nucleated RBC % Seg Neutrophils # Man Lymphocytes # (Manual) PT INR APTT ABG pH 7.456 H ABG pO2 64.8 L ABG O2 Saturation 93.6 L ABG Base Excess ABG Hemoglobin Oxyhemoglobin 91.4 L Sodium Potassium Chloride Carbon Dioxide BUN Creatinine Glucose POC Glucose 173 H 260 H Phosphorus Magnesium Troponin T NT-Pro-B Natriuret Pep Triglycerides Cholesterol LDL Cholesterol Direct HDL Cholesterol 05/05/19 05/06/19 05/06/19 18:34 00:49 04:20 WBC 12.8 H RDW 16.9 H Plt Count Lymph % (Auto) [place] % (Auto) Lymph # Seg Neutrophils % Seg Neuts % (Manual) 93.0 H Lymphocytes % (Manual) 2.0 L Nucleated RBC % 1.0 H Seg Neutrophils # Man 11.9 H Lymphocytes # (Manual) 0.3 L PT INR APTT ABG pH ABG pO2 ABG O2 Saturation ABG Base Excess ABG Hemoglobin Oxyhemoglobin Sodium Potassium Chloride Carbon Dioxide BUN Creatinine Glucose POC Glucose 334 H 230 H Phosphorus Magnesium Troponin T NT-Pro-B Natriuret Pep Triglycerides Cholesterol LDL Cholesterol Direct HDL Cholesterol 05/06/19 05/06/19 05/06/19 04:20 04:20 05:39 WBC RDW Plt Count Lymph % (Auto) [place] % (Auto) Lymph # Seg Neutrophils % Seg Neuts % (Manual) Lymphocytes % (Manual) Nucleated RBC % Seg Neutrophils # Man Lymphocytes # (Manual) PT INR APTT ABG pH ABG pO2 62.9 L ABG O2 Saturation 92.5 L ABG Base Excess ABG Hemoglobin Oxyhemoglobin 90.5 L Sodium Potassium Chloride 95.1 L Carbon Dioxide BUN 40 H Creatinine 3.6 H Glucose 267 H POC Glucose Phosphorus Magnesium Troponin T NT-Pro-B Natriuret Pep Triglycerides 380 H Cholesterol LDL Cholesterol Direct HDL Cholesterol 05/06/19 05/06/19 05/06/19 06:08 11:15 12:42 WBC RDW Plt Count Lymph % (Auto) [place] % (Auto) Lymph # Seg Neutrophils % Seg Neuts % (Manual) Lymphocytes % (Manual) Nucleated RBC % Seg Neutrophils # Man Lymphocytes # (Manual) PT INR APTT ABG pH 7.344 L ABG pO2 56.8 L ABG O2 Saturation 85.5 L ABG Base Excess ABG Hemoglobin Oxyhemoglobin 83.8 L Sodium Potassium Chloride Carbon Dioxide BUN Creatinine Glucose POC Glucose 325 H 168 H Phosphorus Magnesium Troponin T NT-Pro-B Natriuret Pep Triglycerides Cholesterol LDL Cholesterol Direct HDL Cholesterol 05/06/19 05/07/19 05/07/19 17:30 00:33 05:25 WBC RDW Plt Count Lymph % (Auto) [place] % (Auto) Lymph # Seg Neutrophils % Seg Neuts % (Manual) Lymphocytes % (Manual) Nucleated RBC % Seg Neutrophils # Man Lymphocytes # (Manual) PT INR APTT ABG pH ABG pO2 51.8 L ABG O2 Saturation 83.6 L ABG Base Excess -3.3 L ABG Hemoglobin Oxyhemoglobin 81.7 L Sodium Potassium Chloride Carbon Dioxide BUN Creatinine Glucose POC Glucose 172 H 131 H Phosphorus Magnesium Troponin T NT-Pro-B Natriuret Pep Triglycerides Cholesterol LDL Cholesterol Direct HDL Cholesterol 05/07/19 06:31 WBC RDW Plt Count Lymph % (Auto) [place] % (Auto) Lymph # Seg Neutrophils % Seg Neuts % (Manual) Lymphocytes % (Manual) Nucleated RBC % Seg Neutrophils # Man Lymphocytes # (Manual) PT INR APTT ABG pH ABG pO2 ABG O2 Saturation ABG Base Excess ABG Hemoglobin Oxyhemoglobin Sodium Potassium Chloride Carbon Dioxide BUN Creatinine Glucose POC Glucose 223 H Phosphorus Magnesium Troponin T NT-Pro-B Natriuret Pep Triglycerides Cholesterol LDL Cholesterol Direct HDL Cholesterol
[2019-05-07] MEDS: HEPARIN 5,000 UNIT/1 ML VIAL SUB-Q SCH ×2 (10:15→22:07)
[2019-05-07] MEDS: busPIRone 10 MG TAB PO SCH ×2 (10:16→22:08)
[2019-05-07] MEDS: METOPROLOL TARTRATE 50 MG TAB PO SCH ×2 (10:16→22:08)
[2019-05-07] MEDS: allopurinoL 100 MG TAB PO SCH (10:16)
[2019-05-07] MEDS: FAMOTIDINE 10 MG TAB PO SCH ×2 (10:17→22:08)
[2019-05-07] MEDS: SODIUM BICARBONATE 650 MG TAB PO SCH ×2 (10:18→22:08)
[2019-05-07] MEDS: VALSARTAN 160MG TAB PO SCH (10:20)
[2019-05-07] MEDS: ASPIRIN EC 81 MG TAB PO SCH (10:20)
--- NOTE | 2019-05-07 11:02 | Progress Note ---
Assessment and Plan Impression: * End stage renal disease * Acute on chronic hypoxic respiratory failure --wears 2-3L NC oxygen at home * COPD exacerbation * Chronic diastolic heart failure * Hypertension by history * hypotensive * Anemia secondary to ESRD * Secondary hyperparathyroidism Plan: * Continue MWF schedule. * stop bp meds * UF as tolerated * Vent management per pulmonary medicine * Dose medications for renal function * Epogen TIW prn * Nutrition per primary team Subjective Date of service: 05/07/19 Principal diagnosis: Acute resp failure,COPd exacerbation Interval history: resting in bed Objective - Exam Narrative Exam: General appearance: intubated, frail EENT: other (ETT in place) Respiratory: Present: Wheezes Cardiology: regular, S1S2 Gastrointestinal: hypoactive bowel sounds Integumentary: no rash, warm and dry Musculoskeletal: other (no edema) - Vital Signs Vital signs: Vital Signs - 12hr 05/06/19 05/07/19 05/07/19 23:31 00:00 00:30 Temperature Pulse Rate 94 H 101 H 91 H Pulse Rate [ Anterior Bilateral] Pulse Rate [ From Monitor] Respiratory 28 H 28 H 21 Rate Respiratory Rate [Anterior Bilateral] Respiratory Rate [denies] Blood Pressure 139/72 104/67 126/79 O2 Sat by Pulse 88 94 Oximetry 05/07/19 05/07/19 05/07/19 00:52 01:01 01:32 Temperature 98.2 F Pulse Rate 96 H 97 H Pulse Rate [ Anterior Bilateral] Pulse Rate [ From Monitor] Respiratory 27 H Rate Respiratory Rate [Anterior Bilateral] Respiratory Rate [denies] Blood Pressure 144/104 163/85 O2 Sat by Pulse 93 Oximetry 05/07/19 05/07/19 05/07/19 02:01 02:28 02:30 Temperature Pulse Rate 96 H Pulse Rate [ Anterior Bilateral] Pulse Rate [ From Monitor] Respiratory 34 H 28 H Rate Respiratory Rate [Anterior Bilateral] Respiratory 26 H Rate [denies] Blood Pressure 153/96 O2 Sat by Pulse 92 Oximetry 05/07/19 05/07/19 05/07/19 03:00 04:00 04:01 Temperature Pulse Rate 89 94 H 94 H Pulse Rate [ Anterior Bilateral] Pulse Rate [ From Monitor] Respiratory 28 H 25 H Rate Respiratory Rate [Anterior Bilateral] Respiratory Rate [denies] Blood Pressure 98/63 180/88 O2 Sat by Pulse Oximetry 0305/07/19 05/07/19 04:08 04:30 05:01 Temperature Pulse Rate 86 Pulse Rate [ Anterior Bilateral] Pulse Rate [ From Monitor] Respiratory 28 H 28 H 28 H Rate Respiratory Rate [Anterior Bilateral] Respiratory Rate [denies] Blood Pressure 109/67 O2 Sat by Pulse 100 Oximetry 05/07/19 05/07/19 05/07/19 05:15 05:17 06:00 Temperature 98.3 F Pulse Rate 93 H Pulse Rate [ Anterior Bilateral] Pulse Rate [ From Monitor] Respiratory 24 Rate Respiratory Rate [Anterior Bilateral] Respiratory 22 Rate [denies] Blood Pressure 109/67 146/95 O2 Sat by Pulse Oximetry 05/07/19 05/07/19 05/07/19 06:11 07:00 07:11 Temperature Pulse Rate 89 Pulse Rate [ Anterior Bilateral] Pulse Rate [ From Monitor] Respiratory 22 23 22 Rate Respiratory Rate [Anterior Bilateral] Respiratory Rate [denies] Blood Pressure 171/87 O2 Sat by Pulse 97 Oximetry 05/07/19 05/07/19 05/07/19 08:00 08:01 08:03 Temperature 97.6 F Pulse Rate 92 H 99 H Pulse Rate [ Anterior Bilateral] Pulse Rate [ 92 H From Monitor] Respiratory 26 H 28 H 16 Rate Respiratory Rate [Anterior Bilateral] Respiratory Rate [denies] Blood Pressure 160/94 O2 Sat by Pulse 100 93 Oximetry 05/07/19 05/07/19 05/07/19 08:54 10:05 10:08 Temperature Pulse Rate 87 92 H Pulse Rate [ 87 Anterior Bilateral] Pulse Rate [ From Monitor] Respiratory 17 Rate Respiratory 28 H Rate [Anterior Bilateral] Respiratory Rate [denies] Blood Pressure 123/78 148/105 O2 Sat by Pulse 98 Oximetry 05/07/19 05/07/19 05/07/19 10:15 10:16 10:20 Temperature Pulse Rate 91 H 92 H 102 H Pulse Rate [ Anterior Bilateral] Pulse Rate [ From Monitor] Respiratory Rate Respiratory Rate [Anterior Bilateral] Respiratory Rate [denies] Blood Pressure 92/62 92/62 92/62 O2 Sat by Pulse Oximetry 05/07/19 05/07/19 10:30 10:45 Temperature Pulse Rate 95 H 93 H Pulse Rate [ Anterior Bilateral] Pulse Rate [ From Monitor] Respiratory Rate Respiratory Rate [Anterior Bilateral] Respiratory Rate [denies] Blood Pressure 90/67 93/69 O2 Sat by Pulse Oximetry - Lab 05/06/19 04:20 05/06/19 04:20 Most recent lab results ABG pH 7.358 pH Units (7.350-7.450) 05/07/19 05:25 ABG pCO2 39.7 mm Hg 05/07/19 05:25 ABG pO2 51.8 mm Hg (80.0-90.0) L 05/07/19 05:25 ABG HCO3 21.8 mmol/L (20.0-26.0) 05/07/19 05:25 ABG O2 Saturation 83.6 % (95.0-99.0) L 05/07/19 05:25 Calcium 9.3 mg/dL (8.4-10.2) 05/06/19 04:20 Phosphorus 12.90 mg/dL (2.5-4.5) H 05/03/19 09:44 Magnesium 2.70 mg/dL (1.7-2.3) H 05/03/19 09:44 Medications & Allergies - Medications Allergies/Adverse Reactions: Allergies latex Allergy (Verified 02/05/19 13:51) Hives milk Allergy (Verified 02/05/19 13:51) Rash Home Medications: Home Medications Medication Instructions Recorded Confirmed Last Taken Type Metoprolol [Lopressor TAB] 50 mg PO BID #60 tablet 01/27/18 05/03/19 04/11/19 Rx Montelukast [Singulair] 10 mg PO QPM #30 tablet 01/27/18 05/03/19 04/11/19 Rx Pravastatin [Pravachol] 40 mg PO QHS #30 tablet 01/27/18 05/03/19 04/11/19 Rx allopurinoL [Zyloprim] 100 mg PO QDAY #30 tablet 01/27/18 05/03/19 04/11/19 Rx Famotidine [Pepcid] 20 mg PO BID 06/17/18 05/03/19 04/11/19 History Fluticasone/Vilanterol [Breo 1 each IH BID #1 blst.w.dev 12/31/18 05/03/19 Rx Ellipta 200-25 Mcg INH] Tiotropium [place] [Spiriva 4 gm IH DAILY #1 mist.inhal 12/31/18 05/03/19 04/11/19 Rx Respimat] Aspirin EC [Halfprin EC] 81 mg PO QDAY #30 tablet. 02/18/19 05/03/19 04/11/19 Rx ISOSORBIDE MONOnitrate [Imdur ER] 30 mg PO QDAY #30 tablet 02/18/19 05/03/19 Unknown Rx glipiZIDE [Glucotrol] 5 mg PO QDAY #30 tablet 02/18/19 05/03/19 Unknown Rx ALBUTEROL NEB's [Proventil 0.083% 2.5 mg IH Q4HRT PRN #30 nebu 04/15/19 05/03/19 Unknown Rx NEBS] Furosemide [Lasix] 20 mg PO QDAY #30 tablet 04/15/19 05/03/19 Unknown Rx Ipratropium/Albuterol Sulfate 2 puff IH BID #1 unit 04/15/19 05/03/19 Unknown Rx [Combivent Respimat] Olanzapine/Fluoxetine HCl [Symbyax 1 each PO QHS #30 capsule 04/15/19 05/03/19 Unknown Rx 3-25 mg] Sodium Bicarbonate 650 mg PO BID #60 tablet 04/15/19 05/03/19 Unknown Rx amLODIPine 10 mg PO DAILY #30 tablet 04/15/19 05/03/19 Unknown Rx cefUROXime [Ceftin] 250 mg PO Q12H #14 tablet 04/15/19 05/03/19 Unknown Rx predniSONE [Deltasone] 1 tab PO QDAY #91 tab 04/15/19 05/03/19 Unknown Rx traMADoL [Ultram 50 MG tab] 50 mg PO Q8H PRN #15 tab 04/15/19 05/03/19 04/11/19 Rx Active Medications: Generic Name Dose Route Start Last Admin Trade Name Freq PRN Reason Stop Dose Admin Acetaminophen 650 mg 04/30/19 17:44 05/05/19 15:22 Tylenol PO 650 mg Q4H PRN Administration Pain MILD(1-3)/Fever >100.5/HERRMANN Albuterol 2.5 mg 04/30/19 18:32 05/02/19 04:49 Proventil IH 2.5 mg Q3H PRN Administration Shortness Of Breath Albuterol/Ipratropium 1 ampul 04/30/19 20:00 05/07/19 08:54 Duoneb *Not For Prn Use* IH 1 ampul QIDRT KVNG Administration Allopurinol 100 mg 04/30/19 18:00 05/07/19 10:16 Zyloprim PO 100 mg QDAY KVNG Administration Lipase/Protease/Amylase 1 each 05/04/19 14:58 Pancrejessica Gould 10,500 Unit FEEDTUBE PRN PRN For Clogged Feeding Tube Arformoterol Tartrate 15 mcg 05/01/19 08:00 05/07/19 08:54 Brovana Nebu IH 15 mcg Q12HRT KVNG Administration Aspirin 81 mg 04/30/19 18:00 05/07/19 10:20 Halfprin Ec PO 81 mg QDAY KVNG Administration Budesonide 0.5 mg 05/03/19 11:00 05/07/19 08:54 Pulmicort IH 0.5 mg Q12HRT KVNG Administration Buspirone HCl 15 mg 05/04/19 10:00 05/07/19 10:16 Buspar PO 15 mg BID KVNG Administration Famotidine 10 mg 04/30/19 22:00 05/07/19 10:17 Pepcid PO 10 mg BID KVNG Administration Fentanyl 50 mcg 05/06/19 08:00 05/07/19 10:08 Sublimaze IV 50 mcg Q2H KVNG Administration Heparin Sodium (Porcine) 5,000 unit 05/04/19 22:00 05/07/19 10:15 Heparin SUB-Q 5,000 unit Q12HR KVNG Administration Hydralazine HCl 5 mg 05/01/19 22:47 05/06/19 04:57 Apresoline IV 5 mg Q6HR PRN Administration SBP > 160 AND/OR DBP > 100 Hydrophilic Ointment 1 applic 05/04/19 09:42 Vaseline Lip Therapy TP Q2HR PRN Dry Lips Sodium Chloride 100 mls @ 999 mls/hr 04/30/19 13:29 Nacl 0.9% IV ALBINO PRN Hypotension Levofloxacin/Dextrose 500 mg in 100 mls @ 100 mls/hr 05/02/19 19:00 05/06/19 18:12 Levaquin 500mg/100ml IV 05/10/19 19:59 100 mls/hr Q48H KVNG Administration Propofol 1,000 mg in 100 mls @ 1.482 mls/hr 05/04/19 09:00 05/06/19 07:50 Diprivan 10 Mg/Ml IV 0 mcg/kg/min TITR KVNG 0 mls/hr Titration Protocol 5 MCG/KG/MIN Insulin Human Lispro 0 unit 05/05/19 18:00 05/07/19 06:35 Humalog SUB-Q 4 unit Q6HR KVNG Administration Protocol Isosorbide Dinitrate 10 mg 05/04/19 14:00 05/07/19 08:18 Isordil Titradose PO Not Given Q8HR KVNG Lorazepam 1 mg 05/02/19 11:08 05/07/19 07:30 Ativan IV 1 mg Q4H PRN Administration Anxiety Methylprednisolone Sodium Succinate 60 mg 05/04/19 09:00 05/07/19 10:15 Solu-Medrol IV 60 mg Q6H KVNG Administration Metoprolol Tartrate 50 mg 04/30/19 22:00 05/07/19 10:16 Metoprolol PO 50 mg BID KVNG Administration Montelukast Sodium 10 mg 04/30/19 19:00 05/06/19 18:12 Singulair PO 10 mg QPM KVNG Administration Multi-Ingred Cream/Lotion/Oil/Oint 1 applic 05/04/19 09:42 Artificial Tears Ophth Oint OU Q4HR PRN Dry Eye(s) Pravastatin Sodium 40 mg 04/30/19 22:00 05/06/19 22:31 Pravachol PO 40 mg QHS KVNG Administration Simple Syrup 15 ml 05/04/19 14:58 Simple Syrup FEEDTUBE PRN PRN Hypoglycemia Simple Syrup 30 ml 05/04/19 14:58 Simple Syrup FEEDTUBE PRN PRN Hypoglycemia Sodium Bicarbonate 650 mg 04/30/19 22:00 05/07/19 10:18 Sodium Bicarbonate PO 650 mg BID KVNG Administration Sodium Bicarbonate 325 mg 05/04/19 14:58 Sodium Bicarbonate FEEDTUBE PRN PRN For Clogged Feeding Tube Sodium Chloride 10 ml 04/30/19 22:00 05/07/19 10:19 Sodium Chloride Flush Syringe 10 Ml IV 10 ml BID KVNG Administration Sodium Chloride 10 ml 04/30/19 17:44 05/01/19 03:55 Sodium Chloride Flush Syringe 10 Ml IV 10 ml PRN PRN Administration LINE FLUSH Valsartan 160 mg 04/30/19 22:00 05/07/19 10:20 Diovan PO 160 mg BID KVNG Administration
[2019-05-07] MEDS ORDERED: SODIUM CHLORIDE*PRIMING MACHINE ONLY FOR DIALYSIS MC ONE (13:40)
[2019-05-07 15:36] LABS: ABG Base Excess -1.3 mmol/L (-2.0-3.0); ABG HCO3 25.4 mmol/L (20.0-26.0); ABG Methemoglobin 0.6 % (0.0-1.5); ABG Oxygen Saturation 89.7 % (95.0-99.0); ABG PCO2 50.7 mm Hg; ABG PH 7.317 pH Units (7.350-7.450)
[2019-05-07] MEDS: MONTELUKAST 10 MG TAB PO SCH (18:16)
--- NOTE | 2019-05-07 19:09 | Progress Note ---
Assessment and Plan Assessment and plan: 78 yo AA woman with a history of [place], Diastolic CHF, CAD S/P CABG, DM, Asthma, OA, Anxiety disorder, Chronic Respiratory Failure on 2-3 L Home oxygen due to end stage COPD and ESRD on HD(M,W,F) who presented to [facility] ED with SOB and wheezing for the last 2 days. No improvement with home breathing treatments. Patient was found tachypneic and respiratory distress upon their arrival to the house. Patient received albuterol 7.5 mg, started initiation of mag 1 g, Decadron 20 mg IV, and required CPAP and additional oxygen support during transport to the hospital. Patient states she has a history of one intubation. The last 3 days she has been short of breath with wheezing and cough productive of yellow sputum. She is compliant with dialysis and is due today. Patient has very little urine output daily. Patient did complain of chest pain prior to arrival which has improved with CPAP support. Patient very SOB and wheezing during my exam.Patient has not been exposed to anyone with fever and Dry cough.No recent travel.No exposure to foreign traveled patients. * Still on full ventilaotry support. Not tolerating wean becomes tachypenic, fentanyl for pain control added, continue steroids * 05/06: Discussed with historical guide plan is for extubation today. Continue management. Acute on chronic hypoxic respiratory failure Now placed on Mechanical ventilation Patient chronically on home oxygen Continue aggressive neb treatments Steroids being tapered Pulmonary consult note reviewed Continue management per Dr. Buck's recommendations COPD exacerbation: Continue neb treatments, antibiotics, steroids and oxygen supplement History of anxiety disorder Continue Klonopin Hyperglycemia Continue to monitor likely induced by steroid use. end-stage renal disease: On hemodialysis Friday and Friday Nephrology note reviewed Acute metabolic acidosis Chronic diastolic heart failure, Hypertension, Anemia of chronic kidney disease The high probability of a clinically significant, sudden or life threatening deterioration of the [pulmonary] system(s) required my full and direct attention, intervention and personal management. The aggregate critical care time was [35] minutes. This time is in addition to time spent performing rep orted procedures but includes the following: [x] Data Review and interpretation [x] Patient assessment and monitoring of vital signs [x] Documentation [x] Medication orders and management History Interval history: Patient seen and examined still on mechanical ventilatory support more calm today. Planning for extubation Hospitalist Physical - Physical exam Narrative exam: VITAL SIGNS: Reviewed. GENERAL: The patient appears chronically ill, on mechanical ventilation vital signs as documented. HEAD: No signs of head trauma. EYES: Pupils are equal. EARS: Hearing grossly intact. MOUTH: ET tube in place. NECK: No adenopathy, no JVD. CHEST: Chest with clear breath sounds bilaterally. tachypenia No wheezes, rales, or rhonchi. CARDIAC: Regular rate and rhythm. S1 and S2, without murmurs, gallops, or rubs. VASCULAR: No Edema. Peripheral pulses normal and equal in all extremities. ABDOMEN: Soft, non tender and non distended. No rebound or guarding, and no masses palpated. Bowel Sounds normal. MUSCULOSKELETAL: Restful. Moves all extremities. NEUROLOGIC EXAM: Disoriented, currently on full mechanical support PSYCHIATRIC: Unable to assess SKIN: detail exam as documented in skin assessment - Constitutional Vitals: Temp Pulse Resp BP Pulse Ox 97.5 F L 103 H 33 H 145/82 93 05/07/19 16:00 05/07/19 18:01 05/07/19 18:15 05/07/19 18:01 05/07/19 18:01 General appearance: Present: mild distress, well-nourished ROB score - Rob Score Age > 65: (1) Yes Aspirin use within the Past 7 Days: (1) Yes 3 or more CAD Risk Factors: (1) Yes 2 or more Angina events in past 24 hrs: (0) No Known CAD with more than 50% Stenosis: (0) No Elevated Cardiac Markers: (0) No ST Deviation Greater than 0.5mm: (0) No ROB Score: 3 Results - Labs CBC & Chem 7: 05/06/19 04:20 05/06/19 04:20 Labs: Laboratory Last Values WBC 12.8 K/mm3 (4.5-11.0) H 05/06/19 04:20 RBC 4.54 M/mm3 (3.65-5.03) 05/06/19 04:20 Hgb 13.1 gm/dl (10.1-14.3) 05/06/19 04:20 Hct 41.8 % (30.3-42.9) 05/06/19 04:20 MCV 92 fl (79-97) 05/06/19 04:20 MCH 29 pg (28-32) 05/06/19 04:20 MCHC 31 % (30-34) 05/06/19 04:20 RDW 16.9 % (13.2-15.2) H 05/06/19 04:20 Plt Count 170 K/mm3 (140-440) 05/06/19 04:20 Lymph % (Auto) 10.9 % (13.4-35.0) L 04/30/19 11:32 [place] % (Auto) 7.4 % (0.0-7.3) H 04/30/19 11:32 Eos % (Auto) 0.4 % (0.0-4.3) 04/30/19 11:32 Baso % (Auto) 0.7 % (0.0-1.8) 04/30/19 11:32 Lymph # 0.8 K/mm3 (1.2-5.4) L 04/30/19 11:32 [place] # 0.5 K/mm3 (0.0-0.8) 04/30/19 11:32 Eos # 0.0 K/mm3 (0.0-0.4) 04/30/19 11:32 Baso # 0.1 K/mm3 (0.0-0.1) 04/30/19 11:32 Add Manual Diff Complete 05/06/19 04:20 Total Counted 100 05/06/19 04:20 Seg Neutrophils % [place] 05/06/19 04:20 Seg Neuts % (Manual) 93.0 % (40.0-70.0) H 05/06/19 04:20 Band Neutrophils % 0 % 05/06/19 04:20 Lymphocytes % (Manual) 2.0 % (13.4-35.0) L 05/06/19 04:20 Reactive Lymphs % (Man) 0 % 05/06/19 04:20 Monocytes % (Manual) 5.0 % (0.0-7.3) 05/06/19 04:20 Eosinophils % (Manual) 0 % (0.0-4.3) 05/06/19 04:20 Basophils % (Manual) 0 % (0.0-1.8) 05/06/19 04:20 Metamyelocytes % 0 % 05/06/19 04:20 Myelocytes % 0 % 05/06/19 04:20 Promyelocytes % 0 % 05/06/19 04:20 Blast Cells % 0 % 05/06/19 04:20 Nucleated RBC % 1.0 % (0.0-0.9) H 05/06/19 04:20 Seg Neutrophils # 6.0 K/mm3 (1.8-7.7) 04/30/19 11:32 Seg Neutrophils # Man 11.9 K/mm3 (1.8-7.7) H 05/06/19 04:20 Band Neutrophils # 0.0 K/mm3 05/06/19 04:20 Lymphocytes # (Manual) 0.3 K/mm3 (1.2-5.4) L 05/06/19 04:20 Abs React Lymphs (Man) 0.0 K/mm3 05/06/19 04:20 Monocytes # (Manual) 0.6 K/mm3 (0.0-0.8) 05/06/19 04:20 Eosinophils # (Manual) 0.0 K/mm3 (0.0-0.4) 05/06/19 04:20 Basophils # (Manual) 0.0 K/mm3 (0.0-0.1) 05/06/19 04:20 Metamyelocytes # 0.0 K/mm3 05/06/19 04:20 Myelocytes # 0.0 K/mm3 05/06/19 04:20 Promyelocytes # 0.0 K/mm3 05/06/19 04:20 Blast Cells # 0.0 K/mm3 05/06/19 04:20 WBC Morphology Not Reportable 05/06/19 04:20 Hypersegmented Neuts Not Reportable 05/06/19 04:20 Hyposegmented Neuts Not Reportable 05/06/19 04:20 Hypogranular Neuts Not Reportable 05/06/19 04:20 Smudge Cells Not Reportable 05/06/19 04:20 Toxic Granulation Not Reportable 05/06/19 04:20 Toxic Vacuolation Not Reportable 05/06/19 04:20 Dohle Bodies Not Reportable 05/06/19 04:20 Pelger-Huet Anomaly Not Reportable 05/06/19 04:20 Ariel Rods Not Reportable 05/06/19 04:20 Platelet Estimate Consistent w auto 05/06/19 04:20 Clumped Platelets Not Reportable 05/06/19 04:20 Plt Clumps, EDTA Not Reportable 05/06/19 04:20 Large Platelets Not Reportable 05/06/19 04:20 Giant Platelets Not Reportable 05/06/19 04:20 Platelet Satelliting Not Reportable 05/06/19 04:20 Plt Morphology Comment Not Reportable 05/06/19 04:20 RBC Morphology Not Reportable 05/06/19 04:20 Dimorphic RBCs Not Reportable 05/06/19 04:20 Polychromasia Not Reportable 05/06/19 04:20 Hypochromasia Not Reportable 05/06/19 04:20 Poikilocytosis Not Reportable 05/06/19 04:20 Anisocytosis 1+ 05/06/19 04:20 Microcytosis Not Reportable 05/06/19 04:20 Macrocytosis Not Reportable 05/06/19 04:20 Spherocytes Not Reportable 05/06/19 04:20 Pappenheimer Bodies Not Reportable 05/06/19 04:20 Sickle Cells Not Reportable 05/06/19 04:20 Target Cells Not Reportable 05/06/19 04:20 Tear Drop Cells Not Reportable 05/06/19 04:20 Ovalocytes Not Reportable 05/06/19 04:20 Helmet Cells Not Reportable 05/06/19 04:20 [place] Bodies Not Reportable 05/06/19 04:20 [place] Rings Not Reportable 05/06/19 04:20 [place] Cells Not Reportable 05/06/19 04:20 Bite Cells Not Reportable 05/06/19 04:20 Crenated Cell Not Reportable 05/06/19 04:20 Elliptocytes Not Reportable 05/06/19 04:20 Acanthocytes (Spur) Not Reportable 05/06/19 04:20 Rouleaux Not Reportable 05/06/19 04:20 Hemoglobin C Crystals Not Reportable 05/06/19 04:20 Schistocytes Not Reportable 05/06/19 04:20 Malaria parasites Not Reportable 05/06/19 04:20 [place] Bodies Not Reportable 05/06/19 04:20 Hem Pathologist Commnt No 05/06/19 04:20 PT 14.3 Sec. (12.2-14.9) 04/30/19 15:23 INR 1.10 (0.87-1.13) 04/30/19 15:23 APTT 37.2 Sec. (24.2-36.6) H 04/30/19 15:23 ABG pH 7.317 pH Units (7.350-7.450) L 05/07/19 15:15 ABG pCO2 50.7 mm Hg 05/07/19 15:15 ABG pO2 64.0 mm Hg (80.0-90.0) L 05/07/19 15:15 ABG HCO3 25.4 mmol/L (20.0-26.0) 05/07/19 15:15 ABG O2 Saturation 89.7 % (95.0-99.0) L 05/07/19 15:15 ABG O2 Content 16.8 (0.0-44) 05/07/19 15:15 ABG Base Excess -1.3 mmol/L (-2.0-3.0) 05/07/19 15:15 ABG Hemoglobin 13.6 gm/dl (12.0-16.0) 05/07/19 15:15 ABG Carboxyhemoglobin 1.4 % (0.0-5.0) 05/07/19 15:15 ABG Methemoglobin 0.6 % (0.0-1.5) 05/07/19 15:15 Oxyhemoglobin 87.8 % (95.0-99.0) L 05/07/19 15:15 FiO2 30 % 05/07/19 15:15 Sodium 140 mmol/L (137-145) 05/06/19 04:20 Potassium 4.0 mmol/L (3.6-5.0) 05/06/19 04:20 Chloride 95.1 mmol/L (98-107) L 05/06/19 04:20 Carbon Dioxide 22 mmol/L (22-30) 05/06/19 04:20 Anion Gap 27 mmol/L 05/06/19 04:20 BUN 40 mg/dL (7-17) H 05/06/19 04:20 Creatinine 3.6 mg/dL (0.7-1.2) H 05/06/19 04:20 Estimated GFR 15 ml/min 05/06/19 04:20 BUN/Creatinine Ratio 11 % 05/06/19 04:20 Glucose 267 mg/dL (65-100) H 05/06/19 04:20 POC Glucose 142 (70-105) H 05/07/19 18:40 Hemoglobin A1c 5.6 % (4-6) 04/30/19 11:32 Calcium 9.3 mg/dL (8.4-10.2) 05/06/19 04:20 Phosphorus 12.90 mg/dL (2.5-4.5) H 05/03/19 09:44 Magnesium 2.70 mg/dL (1.7-2.3) H 05/03/19 09:44 Total Bilirubin 0.40 mg/dL (0.1-1.2) 05/01/19 12:43 AST 39 units/L (5-40) 05/01/19 12:43 ALT 23 units/L (7-56) 05/01/19 12:43 Alkaline Phosphatase 102 units/L (35-129) 05/01/19 12:43 Total Creatine Kinase Cancelled 04/30/19 14:20 CK-MB (CK-2) Cancelled 04/30/19 14:20 CK-MB (CK-2) Rel Index Cancelled 04/30/19 14:20 Troponin T 0.117 ng/mL (0.00-0.029) H* 04/30/19 14:20 NT-Pro-B Natriuret Pep 94558 pg/mL (0-900) H 04/30/19 14:20 Total Protein 6.6 g/dL (6.3-8.2) 05/01/19 12:43 Albumin 4.0 g/dL (3.9-5) 05/01/19 12:43 Albumin/Globulin Ratio 1.5 % 05/01/19 12:43 Triglycerides 380 mg/dL (2-149) H 05/06/19 04:20 Cholesterol 303 mg/dL (50-199) H 04/30/19 14:20 LDL Cholesterol Direct 190 mg/dL (50-130) H 04/30/19 14:20 HDL Cholesterol 105 mg/dL (40-59) H 04/30/19 14:20 Cholesterol/HDL Ratio 2.88 % 04/30/19 14:20 Hepatitis A IgM Ab Non-reactive (NonReactive) 04/30/19 14:20 Hep Bs Antigen Non-reactive (Negative) 03/13/20 14:20 Hep B Core IgM Ab Non-reactive (NonReactive) 04/30/19 14:20 Hepatitis C Antibody Non-reactive (NonReactive) 04/30/19 14:20 [place]/IV: Voiding Method Incontinent IV Catheter Type [Left Mid-line Subclavian] IV Catheter Type [Right Upper INT / Saline Lock arm] IV Catheter Type [Right Hand] INT / Saline Lock IV Catheter Type [Left Forearm INT / Saline Lock ] IV Catheter Type [Right VAS Cath Internal Jugular] Active Medications - Current Medications Current Medications: Generic Name Dose Route Start Last Admin Trade Name Freq PRN Reason Stop Dose Admin Acetaminophen 650 mg 04/30/19 17:44 05/05/19 15:22 Tylenol PO 650 mg Q4H PRN Administration Pain MILD(1-3)/Fever >100.5/HERRMANN Albuterol 2.5 mg 04/30/19 18:32 05/02/19 04:49 Proventil IH 2.5 mg Q3H PRN Administration Shortness Of Breath Albuterol/Ipratropium 1 ampul 04/30/19 20:00 05/07/19 15:54 Duoneb *Not For Prn Use* IH 1 ampul QIDRT KVNG Administration Allopurinol 100 mg 04/30/19 18:00 05/07/19 10:16 Zyloprim PO 100 mg QDAY KVNG Administration Lipase/Protease/Amylase 1 each 05/04/19 14:58 Pancreazivania Gould 10,500 Unit FEEDTUBE PRN PRN For Clogged Feeding Tube Arformoterol Tartrate 15 mcg 05/01/19 08:00 05/07/19 08:54 Brovana Nebu IH 15 mcg Q12HRT KVNG Administration Aspirin 81 mg 04/30/19 18:00 05/07/19 10:20 Halfprin Ec PO 81 mg QDAY KVNG Administration Budesonide 0.5 mg 05/03/19 11:00 05/07/19 08:54 Pulmicort IH 0.5 mg Q12HRT KVNG Administration Buspirone HCl 15 mg 05/04/19 10:00 05/07/19 10:16 Buspar PO 15 mg BID KVNG Administration Famotidine 10 mg 04/30/19 22:00 05/07/19 10:17 Pepcid PO 10 mg BID KVNG Administration Fentanyl 50 mcg 05/06/19 08:00 05/07/19 18:15 Sublimaze IV 50 mcg Q2H KVNG Administration Heparin Sodium (Porcine) 5,000 unit 05/04/19 22:00 05/07/19 10:15 Heparin SUB-Q 5,000 unit Q12HR KVNG Administration Hydralazine HCl 5 mg 05/01/19 22:47 05/06/19 04:57 Apresoline IV 5 mg Q6HR PRN Administration SBP > 160 AND/OR DBP > 100 Hydrophilic Ointment 1 applic 05/04/19 09:42 Vaseline Lip Therapy TP Q2HR PRN Dry Lips Sodium Chloride 100 mls @ 999 mls/hr 04/30/19 13:29 Nacl 0.9% IV ALBINO PRN Hypotension Levofloxacin/Dextrose 500 mg in 100 mls @ 100 mls/hr 05/02/19 19:00 05/06/19 18:12 Levaquin 500mg/100ml IV 05/10/19 19:59 100 mls/hr Q48H KVNG Administration Propofol 1,000 mg in 100 mls @ 1.482 mls/hr 05/04/19 09:00 05/06/19 07:50 Diprivan 10 Mg/Ml IV 0 mcg/kg/min TITR KVNG 0 mls/hr Titration Protocol 5 MCG/KG/MIN Insulin Human Lispro 0 unit 05/05/19 18:00 05/07/19 18:25 Humalog SUB-Q Not Given Q6HR [facility] Protocol Isosorbide Dinitrate 10 mg 05/04/19 14:00 05/07/19 13:23 Isordil Titradose PO 10 mg Q8HR KVNG Administration Lorazepam 1 mg 05/02/19 11:08 05/07/19 17:12 Ativan IV 1 mg Q4H PRN Administration Anxiety Methylprednisolone Sodium Succinate 60 mg 05/04/19 09:00 05/07/19 14:11 Solu-Medrol IV 60 mg Q6H KVNG Administration Metoprolol Tartrate 50 mg 04/30/19 22:00 05/07/19 10:16 Metoprolol PO 50 mg BID KVNG Administration Montelukast Sodium 10 mg 04/30/19 19:00 05/07/19 18:16 Singulair PO 10 mg QPM KVNG Administration Multi-Ingred Cream/Lotion/Oil/Oint 1 applic 05/04/19 09:42 Artificial Tears Ophth Oint OU Q4HR PRN Dry Eye(s) Pravastatin Sodium 40 mg 04/30/19 22:00 05/06/19 22:31 Pravachol PO 40 mg QHS KVNG Administration Simple Syrup 15 ml 05/04/19 14:58 Simple Syrup FEEDTUBE PRN PRN Hypoglycemia Simple Syrup 30 ml 05/04/19 14:58 Simple Syrup FEEDTUBE PRN PRN Hypoglycemia Sodium Bicarbonate 650 mg 04/30/19 22:00 05/07/19 10:18 Sodium Bicarbonate PO 650 mg BID KVNG Administration Sodium Bicarbonate 325 mg 05/04/19 14:58 Sodium Bicarbonate FEEDTUBE PRN PRN For Clogged Feeding Tube Sodium Chloride 10 ml 04/30/19 22:00 05/07/19 10:19 Sodium Chloride Flush Syringe 10 Ml IV 10 ml BID KVNG Administration Sodium Chloride 10 ml 04/30/19 17:44 05/01/19 03:55 Sodium Chloride Flush Syringe 10 Ml IV 10 ml PRN PRN Administration LINE FLUSH Nutrition/Malnutrition Assess - Dietary Evaluation Nutrition/Malnutrition Findings: Nutrition Notes Start: 05/04/19 11:09 Freq: Status: Active Protocol: Document 05/06/19 08:23 LP (Rec: 05/06/19 08:27 LP [id number]) Nutrition Notes Initial or Follow up Reassessment Current Diagnosis CKD (stage V CKD),COPD, Coronary Artery Disease, Diabetes,Heart Failure, Respiratory Failure Current Diet Nepro at 30ml/hr Labs/Tests Reviewed Pertinent Medications Reviewed Height 5 ft Weight 50.6 kg [place] Body Weight (kg) 45.45 BMI 21.7 Weight Status Appropriate Subjective/Other Information Pt tolerating TF at goal rate. Pt remains on vent. 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 Yes Is Patient Ambulatory and/or Out of Bed No [facility] [phone] Calculation Used for Recommendations Teresa Hardy Additional Notes Protein: 59-98g (1.2-2g/kg) Fluid: per MD Nutrition Intervention Change Diet Order: TF Nutrition Support: Nepro 1.8 at 30 ml/hr Flush 130 ml q4h Kcal 1,296 Protein (gm) 58 Fluid (mL) 523 Goal #1 Meet at least 80% of kcal and protein needs via TF Anticipated Discharge Needs: Unable to determine at this time Follow-Up By: 05/10/19 Additional Comments Follow for TF tolerance
[2019-05-07] MEDS: PRAVASTATIN 40 MG TAB PO SCH (22:08)
[2019-05-08] MEDS: fentaNYL 100 MCG/2 ML INJ IV SCH ×10 (00:27→23:28)
[2019-05-08] MEDS: INSULIN LISPRO 100 UNIT/ML SUB-Q SCH ×3 (00:27→23:49)
[2019-05-08] MEDS: methylPREDNISolone Sod Succinate 125 MG/2 ML INJ IV SCH ×3 (02:32→23:31)
[2019-05-08] MEDS: ISOSORBIDE DINITRATE 10 MG TAB PO SCH ×2 (06:09→23:48)
[2019-05-08] MEDS: BUDESONIDE 0.5 MG/2 ML NEBU IH SCH ×2 (08:26→21:06)
[2019-05-08] MEDS: ARFORMOTEROL 15 MCG/2 ML NEBU IH SCH ×2 (08:26→21:07)
[2019-05-08] MEDS: IPRATROPIUM/ALBUTEROL SULFATE 3 ML AMPUL.NEB IH SCH ×4 (08:26→21:06)
[2019-05-08] MEDS ORDERED: SODIUM CHLORIDE 0.9% 1000 ML 1,000 ML ONE (08:32)
[2019-05-08] MEDS ORDERED: NORepinephrine/NS 4 MG-250 ML 4 MG/250 ML BAG IV ONE (08:47)
[2019-05-08 09:54] LABS: ABG Base Excess -5.8 mmol/L (-2.0-3.0); ABG HCO3 18.7 mmol/L (20.0-26.0); ABG Methemoglobin 0.6 % (0.0-1.5); ABG Oxygen Saturation 91.9 % (95.0-99.0); ABG PCO2 33.8 mm Hg; ABG PH 7.36 pH Units (7.350-7.450); ABG PO2 65.1 mm Hg (80.0-90.0)
--- NOTE | 2019-05-08 11:43 | Progress Note ---
Assessment and Plan Impression: * End stage renal disease * Acute on chronic hypoxic respiratory failure --wears 2-3L NC oxygen at home * COPD exacerbation * Chronic diastolic heart failure * Hypertension by history * hypotensive * Anemia secondary to ESRD * Secondary hyperparathyroidism Plan: * Continue MWF schedule. * stopped bp meds * UF as tolerated * Vent management per pulmonary medicine * Dose medications for renal function * Epogen TIW prn * Nutrition per primary team Subjective Date of service: 05/08/19 Principal diagnosis: Acute resp failure,COPd exacerbation Interval history: resting in bed Objective - Exam Narrative Exam: General appearance: intubated, frail EENT: other (ETT in place) Respiratory: Present: Wheezes Cardiology: regular, S1S2 Gastrointestinal: hypoactive bowel sounds Integumentary: no rash, warm and dry Musculoskeletal: other (no edema) - Vital Signs Vital signs: Vital Signs - 12hr 05/07/19 05/08/19 05/08/19 23:45 00:01 00:30 Temperature 97.9 F Pulse Rate 110 H 102 H Pulse Rate [ From Monitor] Respiratory 28 H Rate Blood Pressure 154/89 O2 Sat by Pulse 93 Oximetry 05/08/19 05/08/19 05/08/19 00:31 00:41 01:01 Temperature Pulse Rate 105 H 114 H Pulse Rate [ 102 H From Monitor] Respiratory 25 H 22 37 H Rate Blood Pressure 156/89 154/89 O2 Sat by Pulse 98 97 89 Oximetry 05/08/19 05/08/19 05/08/19 02:01 03:01 03:31 Temperature Pulse Rate 124 H 119 H 117 H Pulse Rate [ From Monitor] Respiratory 32 H 28 H 28 H Rate Blood Pressure 155/77 155/77 155/77 O2 Sat by Pulse 90 91 92 Oximetry 05/08/19 05/08/19 05/08/19 04:00 04:28 04:37 Temperature 99.7 F H Pulse Rate 118 H Pulse Rate [ 102 H From Monitor] Respiratory 42 H 25 H Rate Blood Pressure 155/77 O2 Sat by Pulse 92 98 Oximetry 05/08/19 05/08/19 05/08/19 04:43 05:00 06:00 Temperature Pulse Rate 126 H 115 H 113 H Pulse Rate [ From Monitor] Respiratory 32 H 31 H Rate Blood Pressure 135/58 147/68 O2 Sat by Pulse 92 91 Oximetry 03/05/08/19 05/08/19 06:09 07:00 08:00 Temperature 99.0 F Pulse Rate 112 H 111 H Pulse Rate [ From Monitor] Respiratory 40 H 19 Rate Blood Pressure 105/58 147/68 50/14 O2 Sat by Pulse 92 92 Oximetry - Lab 05/06/19 04:20 05/06/19 04:20 Most recent lab results ABG pH 7.360 pH Units (7.350-7.450) 05/08/19 09:32 ABG pCO2 33.8 mm Hg 05/08/19 09:32 ABG pO2 65.1 mm Hg (80.0-90.0) L 05/08/19 09:32 ABG HCO3 18.7 mmol/L (20.0-26.0) L 05/08/19 09:32 ABG O2 Saturation 91.9 % (95.0-99.0) L 05/08/19 09:32 Calcium 9.3 mg/dL (8.4-10.2) 05/06/19 04:20 Phosphorus 12.90 mg/dL (2.5-4.5) H 05/03/19 09:44 Magnesium 1.60 mg/dL (1.7-2.3) L 05/07/19 19:35 Medications & Allergies - Medications Allergies/Adverse Reactions: Allergies latex Allergy (Verified 02/05/19 13:51) Hives milk Allergy (Verified 02/05/19 13:51) Rash Home Medications: Home Medications Medication Instructions Recorded Confirmed Last Taken Type Metoprolol [Lopressor TAB] 50 mg PO BID #60 tablet 01/27/18 05/03/19 04/11/19 Rx Montelukast [Singulair] 10 mg PO QPM #30 tablet 01/27/18 05/03/19 04/11/19 Rx Pravastatin [Pravachol] 40 mg PO QHS #30 tablet 01/27/18 05/03/19 04/11/19 Rx allopurinoL [Zyloprim] 100 mg PO QDAY #30 tablet 01/27/18 05/03/19 04/11/19 Rx Famotidine [Pepcid] 20 mg PO BID 06/17/18 05/03/19 04/11/19 History Fluticasone/Vilanterol [Breo 1 each IH BID #1 blst.w.dev 11/14/19 03/16/20 02/ 23/20 Rx Ellipta 200-25 Mcg INH] Tiotropium [place] [Spiriva 4 gm IH DAILY #1 mist.inhal 12/31/18 05/03/19 04/11/19 Rx Respimat] Aspirin EC [Halfprin EC] 81 mg PO QDAY #30 tablet.dr 02/18/19 05/03/19 04/11/19 Rx ISOSORBIDE MONOnitrate [Imdur ER] 30 mg PO QDAY #30 tablet 02/18/19 05/03/19 Unknown Rx glipiZIDE [Glucotrol] 5 mg PO QDAY #30 tablet 02/18/19 05/03/19 Unknown Rx ALBUTEROL NEB's [Proventil 0.083% 2.5 mg IH Q4HRT PRN #30 nebu 04/15/19 05/03/19 Unknown Rx NEBS] Furosemide [Lasix] 20 mg PO QDAY #30 tablet 04/15/19 05/03/19 Unknown Rx Ipratropium/Albuterol Sulfate 2 puff IH BID #1 unit 04/15/19 05/03/19 Unknown Rx [Combivent Respimat] Olanzapine/Fluoxetine HCl [Symbyax 1 each PO QHS #30 capsule 04/15/19 05/03/19 Unknown Rx 3-25 mg] Sodium Bicarbonate 650 mg PO BID #60 tablet 04/15/19 05/03/19 Unknown Rx amLODIPine 10 mg PO DAILY #30 tablet 04/15/19 05/03/19 Unknown Rx cefUROXime [Ceftin] 250 mg PO Q12H #14 tablet 04/15/19 05/03/19 Unknown Rx predniSONE [Deltasone] 1 tab PO QDAY #91 tab 04/15/19 05/03/19 Unknown Rx traMADoL [Ultram 50 MG tab] 50 mg PO Q8H PRN #15 tab 04/15/19 05/03/19 04/11/19 Rx Active Medications: Generic Name Dose Route Start Last Admin Trade Name Freq PRN Reason Stop Dose Admin Acetaminophen 650 mg 04/30/19 17:44 05/05/19 15:22 Tylenol PO 650 mg Q4H PRN Administration Pain MILD(1-3)/Fever >100.5/HERRMANN Albuterol 2.5 mg 04/30/19 18:32 05/02/19 04:49 Proventil IH 2.5 mg Q3H PRN Administration Shortness Of Breath Albuterol/Ipratropium 1 ampul 04/30/19 20:00 05/08/19 08:26 Duoneb *Not For Prn Use* IH 1 ampul QIDRT KVNG Administration Allopurinol 100 mg 04/30/19 18:00 05/07/19 10:16 Zyloprim PO 100 mg QDAY KVNG Administration Lipase/Protease/Amylase 1 each 05/04/19 14:58 Pancreazivania Gould 10,500 Unit FEEDTUBE PRN PRN For Clogged Feeding Tube Arformoterol Tartrate 15 mcg 05/01/19 08:00 05/08/19 08:26 Brovana Nebu IH 15 mcg Q12HRT KVNG Administration Aspirin 81 mg 04/30/19 18:00 05/07/19 10:20 Halfprin Ec PO 81 mg QDAY KVNG Administration Budesonide 0.5 mg 05/03/19 11:00 05/08/19 08:26 Pulmicort IH 0.5 mg Q12HRT KVNG Administration Buspirone HCl 15 mg 05/04/19 10:00 05/07/19 22:08 Buspar PO Not Given BID [facility] Famotidine 10 mg 04/30/19 22:00 05/07/19 22:08 Pepcid PO Not Given BID [facility] Fentanyl 50 mcg 05/06/19 08:00 05/08/19 10:58 Sublimaze IV 50 mcg Q2H KVNG Administration Heparin Sodium (Porcine) 5,000 unit 05/04/19 22:00 05/07/19 22:07 Heparin SUB-Q 5,000 unit Q12HR KVNG Administration Hydralazine HCl 5 mg 05/01/19 22:47 05/06/19 04:57 Apresoline IV 5 mg Q6HR PRN Administration SBP > 160 AND/OR DBP > 100 Hydrophilic Ointment 1 applic 05/04/19 09:42 Vaseline Lip Therapy TP Q2HR PRN Dry Lips Sodium Chloride 100 mls @ 999 mls/hr 04/30/19 13:29 Nacl 0.9% IV ALBINO PRN Hypotension Levofloxacin/Dextrose 500 mg in 100 mls @ 100 mls/hr 05/02/19 19:00 05/06/19 18:12 Levaquin 500mg/100ml IV 05/10/19 19:59 100 mls/hr Q48H [facility] Administration Propofol 1,000 mg in 100 mls @ 1.482 mls/hr 05/04/19 09:00 05/06/19 07:50 Diprivan 10 Mg/Ml IV 0 mcg/kg/min TITR KVNG 0 mls/hr Titration Protocol 5 MCG/KG/MIN Norepinephrine 4 mg in 250 mls @ 7.5 mls/hr 05/08/19 09:00 Levophed Drip 4 Mg/Ns 250 Ml IV TITR KVNG Protocol 2 MCG/MIN Insulin Human Lispro 0 unit 05/05/19 18:00 05/08/19 06:46 Humalog SUB-Q Not Given Q6HR [facility] Protocol Isosorbide Dinitrate 10 mg 05/04/19 14:00 05/08/19 06:09 Isordil Titradose PO Not Given Q8HR [facility] Lorazepam 1 mg 05/02/19 11:08 05/07/19 17:12 Ativan IV 1 mg Q4H PRN Administration Anxiety Methylprednisolone Sodium Succinate 60 mg 05/04/19 09:00 05/08/19 02:32 Solu-Medrol IV 60 mg Q6H [facility] Administration Metoprolol Tartrate 50 mg 04/30/19 22:00 05/07/19 22:08 Metoprolol PO Not Given BID [facility] Montelukast Sodium 10 mg 04/30/19 19:00 05/07/19 18:16 Singulair PO 10 mg QPM [facility] Administration Multi-Ingred Cream/Lotion/Oil/Oint 1 applic 05/04/19 09:42 Artificial Tears Ophth Oint OU Q4HR PRN Dry Eye(s) Pravastatin Sodium 40 mg 04/30/19 22:00 05/07/19 22:08 Pravachol PO Not Given QHS KVNG Simple Syrup 15 ml 05/04/19 14:58 Simple Syrup FEEDTUBE PRN PRN Hypoglycemia Simple Syrup 30 ml 05/04/19 14:58 Simple Syrup FEEDTUBE PRN PRN Hypoglycemia Sodium Bicarbonate 650 mg 04/30/19 22:00 05/07/19 22:08 Sodium Bicarbonate PO Not Given BID KVNG Sodium Bicarbonate 325 mg 05/04/19 14:58 Sodium Bicarbonate FEEDTUBE PRN PRN For Clogged Feeding Tube Sodium Chloride 10 ml 04/30/19 22:00 05/07/19 22:07 Sodium Chloride Flush Syringe 10 Ml IV 10 ml BID KVNG Administration Sodium Chloride 10 ml 04/30/19 17:44 05/01/19 03:55 Sodium Chloride Flush Syringe 10 Ml IV 10 ml PRN PRN Administration LINE FLUSH
--- NOTE | 2019-05-08 12:43 | XRay Report ---
CHEST 1 VIEW 05/08/2019 11:27 AM INDICATION / CLINICAL INFORMATION: MAIN: resp distress, ETT PLACEMENT. COMPARISON: 05/06/17 FINDINGS: Patient is rotated to the left. SUPPORT DEVICES: Endotracheal tube has been placed or repositioned with the tip about 3.9 cm above th e dat. Other tubes and lines are unchanged. HEART / MEDIASTINUM: Stable. LUNGS / PLEURA: Interval development of mild bilateral pulmonary opacities which may represent inters titial edema. No pneumothorax. ADDITIONAL FINDINGS: No significant additional findings. IMPRESSION: 1. ET tube in expected position. 2. Development of mild bilateral pulmonary opacities. Signer Name: Jesus Kelly MD Signed: 05/08/2019 12:39 PM Workstation Name: [id number]
[2019-05-08 14:11] LABS: ABG Base Excess -6.8 mmol/L (-2.0-3.0); ABG HCO3 18.4 mmol/L (20.0-26.0); ABG Methemoglobin 0.7 % (0.0-1.5); ABG Oxygen Saturation 91.6 % (95.0-99.0); ABG PH 7.327 pH Units (7.350-7.450); ABG PO2 67.2 mm Hg (80.0-90.0)
--- NOTE | 2019-05-08 14:51 | Progress Note ---
Assessment and Plan Impression: COPD with acute exacerbation Mild interstitial lung disease Acute hypoxic hypercapnic respiratory failure. End-stage renal disease on hemodialysis Diabetes mellitus. Recommendations: Continue with mechanical ventilation. Adjustments were made in the settings for proper ventilation Continue with inhaled bronchodilator. Will consider nebulized CAMPOS if available. Continue with steroids. Patient be closely monitored. DVT and GI prophylaxis. Total critical care time 31-minute Subjective Date of service: 05/08/19 Principal diagnosis: Acute resp failure,COPd exacerbation Interval history: Patient was extubated yesterday. Developed respiratory difficulties and distress this morning requiring reintubation. Patient now on mechanical ventilation. She is sedated. Remained tachypneic in spite of mechanical ventilation. Objective Vital Signs - 12hr 05/08/19 05/08/19 05/08/19 03:01 03:31 04:00 Temperature Pulse Rate 119 H 117 H 118 H Pulse Rate [ Anterior Bilateral] Pulse Rate [ From Monitor] Respiratory 28 H 28 H 42 H Rate Respiratory Rate [Anterior Bilateral] Blood Pressure 155/77 155/77 155/77 O2 Sat by Pulse 91 92 92 Oximetry 05/08/19 05/08/19 05/08/19 04:28 04:37 04:43 Temperature 99.7 F H Pulse Rate 126 H Pulse Rate [ Anterior Bilateral] Pulse Rate [ 102 H From Monitor] Respiratory 25 H Rate Respiratory Rate [Anterior Bilateral] Blood Pressure O2 Sat by Pulse 98 Oximetry 05/08/19 05/08/19 05/08/19 05:00 06:00 06:09 Temperature Pulse Rate 115 H 113 H Pulse Rate [ Anterior Bilateral] Pulse Rate [ From Monitor] Respiratory 32 H 31 H Rate Respiratory Rate [Anterior Bilateral] Blood Pressure 135/58 147/68 105/58 O2 Sat by Pulse 92 91 Oximetry 05/08/19 05/08/19 05/08/19 07:00 08:00 08:14 Temperature 99.0 F Pulse Rate 112 H 111 H 115 H Pulse Rate [ Anterior Bilateral] Pulse Rate [ From Monitor] Respiratory 40 H 21 33 H Rate Respiratory Rate [Anterior Bilateral] Blood Pressure 147/68 50/14 O2 Sat by Pulse 92 92 95 Oximetry 05/08/19 05/08/19 05/08/19 09:00 09:16 09:30 Temperature Pulse Rate 111 H 114 H 113 H Pulse Rate [ 115 H Anterior Bilateral] Pulse Rate [ From Monitor] Respiratory 31 H 30 H 32 H Rate Respiratory 33 H Rate [Anterior Bilateral] Blood Pressure 120/17 120/17 120/17 O2 Sat by Pulse 96 94 94 Oximetry 05/08/19 05/08/19 05/08/19 09:46 10:00 10:16 Temperature Pulse Rate 113 H 112 H 111 H Pulse Rate [ Anterior Bilateral] Pulse Rate [ From Monitor] Respiratory 33 H 31 H 30 H Rate Respiratory Rate [Anterior Bilateral] Blood Pressure 120/17 120/76 168/73 O2 Sat by Pulse 95 96 95 Oximetry 05/08/19 05/08/19 05/08/19 10:30 10:46 11:00 Temperature Pulse Rate 109 H 107 H 109 H Pulse Rate [ Anterior Bilateral] Pulse Rate [ From Monitor] Respiratory 29 H 30 H 39 H Rate Respiratory Rate [Anterior Bilateral] Blood Pressure 168/73 168/73 125/74 O2 Sat by Pulse 96 100 Oximetry 05/08/19 05/08/19 05/08/19 11:15 11:30 11:46 Temperature Pulse Rate 106 H 97 H 111 H Pulse Rate [ Anterior Bilateral] Pulse Rate [ From Monitor] Respiratory 26 H 28 H 28 H Rate Respiratory Rate [Anterior Bilateral] Blood Pressure 92/60 92/60 92/60 O2 Sat by Pulse 97 96 94 Oximetry 05/08/19 05/08/19 05/08/19 12:00 12:16 12:30 Temperature 99.6 F Pulse Rate 109 H 112 H 111 H Pulse Rate [ Anterior Bilateral] Pulse Rate [ From Monitor] Respiratory 30 H 28 H 27 H Rate Respiratory Rate [Anterior Bilateral] Blood Pressure 122/77 122/77 122/77 O2 Sat by Pulse 92 93 Oximetry 05/08/19 05/08/19 05/08/19 12:46 13:00 13:16 Temperature Pulse Rate 108 H 109 H 107 H Pulse Rate [ Anterior Bilateral] Pulse Rate [ From Monitor] Respiratory 28 H 28 H 27 H Rate Respiratory Rate [Anterior Bilateral] Blood Pressure 122/77 120/74 120/74 O2 Sat by Pulse 95 93 94 Oximetry 05/08/19 05/08/19 05/08/19 13:30 13:46 14:00 Temperature Pulse Rate 113 H 113 H 110 H Pulse Rate [ Anterior Bilateral] Pulse Rate [ From Monitor] Respiratory 28 H 28 H 25 H Rate Respiratory Rate [Anterior Bilateral] Blood Pressure 120/74 120/74 117/79 O2 Sat by Pulse 95 94 94 Oximetry 03/21/20 14:16 Temperature Pulse Rate 109 H Pulse Rate [ Anterior Bilateral] Pulse Rate [ From Monitor] Respiratory 28 H Rate Respiratory Rate [Anterior Bilateral] Blood Pressure 117/79 O2 Sat by Pulse 96 Oximetry Constitutional: appears uncomfortable, other (Sedated) Eyes: non-icteric ENT: other (orally intubated and sedated.) Neck: supple Effort: mildly labored Ascultation: Bilateral: diminished breath sounds, rales, rhonchi Percussion: Bilateral: not dull Cardiovascular: other (sinus tach) Gastrointestinal: normoactive bowel sounds Neurologic: unable to assess CBC and BMP: 05/06/19 04:20 05/06/19 04:20 ABG, PT/INR, D-dimer: ABG ABG pH 7.327 pH Units (7.350-7.450) L 05/08/19 13:54 ABG pCO2 36.0 mm Hg 05/08/19 13:54 ABG pO2 67.2 mm Hg (80.0-90.0) L 05/08/19 13:54 ABG O2 Saturation 91.6 % (95.0-99.0) L 05/08/19 13:54 PT/INR, D-dimer PT 14.3 Sec. (12.2-14.9) 04/30/19 15:23 INR 1.10 (0.87-1.13) 04/30/19 15:23 Abnormal lab findings: Abnormal Labs 04/30/19 04/30/19 04/30/19 10:12 11:32 11:32 WBC RDW 17.1 H Plt Count 84 L Lymph % (Auto) 10.9 L [place] % (Auto) 7.4 H Lymph # 0.8 L Seg Neutrophils % 80.6 H Seg Neuts % (Manual) Lymphocytes % (Manual) Nucleated RBC % Seg Neutrophils # Man Lymphocytes # (Manual) PT 28.3 H INR 2.59 H APTT ABG pH 7.347 L ABG pO2 221.9 H ABG HCO3 ABG O2 Saturation 99.3 H ABG Base Excess -2.2 L ABG Hemoglobin Oxyhemoglobin Sodium Potassium Chloride Carbon Dioxide BUN Creatinine Glucose POC Glucose Phosphorus Magnesium Troponin T NT-Pro-B Natriuret Pep Triglycerides Cholesterol LDL Cholesterol Direct HDL Cholesterol 04/30/19 04/30/1920 14:20 15:23 18:05 WBC RDW Plt Count Lymph % (Auto) [place] % (Auto) Lymph # Seg Neutrophils % Seg Neuts % (Manual) Lymphocytes % (Manual) Nucleated RBC % Seg Neutrophils # Man Lymphocytes # (Manual) PT INR APTT 37.2 H ABG pH ABG pO2 79.2 L ABG HCO3 ABG O2 Saturation ABG Base Excess ABG Hemoglobin Oxyhemoglobin 94.4 L Sodium 146 H Potassium 3.2 L Chloride Carbon Dioxide BUN 39 H Creatinine 2.6 H Glucose POC Glucose Phosphorus Magnesium Troponin T 0.117 H* NT-Pro-B Natriuret Pep [id number] H Triglycerides 178 H Cholesterol 303 H LDL Cholesterol Direct 190 H HDL Cholesterol 105 H 04/30/19 05/01/19 05/01/19 22:20 00:48 04:46 WBC RDW Plt Count Lymph % (Auto) [place] % (Auto) Lymph # Seg Neutrophils % Seg Neuts % (Manual) Lymphocytes % (Manual) Nucleated RBC % Seg Neutrophils # Man Lymphocytes # (Manual) PT INR APTT ABG pH ABG pO2 98.3 H ABG HCO3 ABG O2 Saturation ABG Base Excess ABG Hemoglobin Oxyhemoglobin Sodium Potassium Chloride Carbon Dioxide BUN Creatinine Glucose POC Glucose 108 H 142 H Phosphorus Magnesium Troponin T NT-Pro-B Natriuret Pep Triglycerides Cholesterol LDL Cholesterol Direct HDL Cholesterol 05/01/19 05/01/19 05/01/19 12:43 12:43 13:27 WBC RDW 16.4 H Plt Count 132 L Lymph % (Auto) [place] % (Auto) Lymph # Seg Neutrophils % Seg Neuts % (Manual) 95.0 H Lymphocytes % (Manual) 3.0 L Nucleated RBC % Seg Neutrophils # Man Lymphocytes # (Manual) 0.2 L PT INR APTT ABG pH ABG pO2 ABG HCO3 ABG O2 Saturation ABG Base Excess ABG Hemoglobin Oxyhemoglobin Sodium Potassium Chloride 95.1 L Carbon Dioxide 21 L BUN 29 H Creatinine 3.2 H Glucose 137 H POC Glucose 114 H Phosphorus Magnesium Troponin T NT-Pro-B Natriuret Pep Triglycerides Cholesterol LDL Cholesterol Direct HDL Cholesterol 05/01/19 05/02/19 05/02/19 18:41 00:01 05:40 WBC RDW Plt Count Lymph % (Auto) [place] % (Auto) Lymph # Seg Neutrophils % Seg Neuts % (Manual) Lymphocytes % (Manual) Nucleated RBC % Seg Neutrophils # Man Lymphocytes # (Manual) PT INR APTT ABG pH ABG pO2 ABG HCO3 ABG O2 Saturation ABG Base Excess ABG Hemoglobin Oxyhemoglobin Sodium Potassium Chloride Carbon Dioxide BUN Creatinine Glucose POC Glucose 127 H 110 H 135 H Phosphorus Magnesium Troponin T NT-Pro-B Natriuret Pep Triglycerides Cholesterol LDL Cholesterol Direct HDL Cholesterol 05/02/19 05/02/19 05/03/19 13:06 19:14 09:44 WBC RDW 17.1 H Plt Count Lymph % (Auto) [place] % (Auto) Lymph # Seg Neutrophils % Seg Neuts % (Manual) Lymphocytes % (Manual) Nucleated RBC % Seg Neutrophils # Man Lymphocytes # (Manual) PT INR APTT ABG pH ABG pO2 ABG HCO3 ABG O2 Saturation ABG Base Excess ABG Hemoglobin Oxyhemoglobin Sodium Potassium Chloride Carbon Dioxide BUN Creatinine Glucose POC Glucose 152 H 117 H Phosphorus Magnesium Troponin T NT-Pro-B Natriuret Pep Triglycerides Cholesterol LDL Cholesterol Direct HDL Cholesterol 05/03/19 05/03/19 05/03/19 09:44 10:13 18:45 WBC RDW Plt Count Lymph % (Auto) [place] % (Auto) Lymph # Seg Neutrophils % Seg Neuts % (Manual) Lymphocytes % (Manual) Nucleated RBC % Seg Neutrophils # Man Lymphocytes # (Manual) PT INR APTT ABG pH 7.166 L* ABG pO2 ABG HCO3 ABG O2 Saturation 94.5 L ABG Base Excess -8.8 L ABG Hemoglobin 11.6 L Oxyhemoglobin 92.4 L Sodium Potassium 6.2 H* D Chloride 93.2 L Carbon Dioxide 13 L D BUN 93 H Creatinine 7.2 H D Glucose 138 H POC Glucose 128 H Phosphorus 12.90 H Magnesium 2.70 H Troponin T NT-Pro-B Natriuret Pep Triglycerides Cholesterol LDL Cholesterol Direct HDL Cholesterol 05/03/19 05/04/19 05/04/19 19:40 01:04 03:51 WBC 11.2 H RDW 16.6 H Plt Count Lymph % (Auto) [place] % (Auto) Lymph # Seg Neutrophils % Seg Neuts % (Manual) Lymphocytes % (Manual) Nucleated RBC % Seg Neutrophils # Man Lymphocytes # (Manual) PT INR APTT ABG pH ABG pO2 ABG HCO3 ABG O2 Saturation ABG Base Excess ABG Hemoglobin Oxyhemoglobin Sodium Potassium Chloride 92.7 L Carbon Dioxide BUN 26 H Creatinine 3.2 H D Glucose 129 H POC Glucose 134 H Phosphorus Magnesium Troponin T NT-Pro-B Natriuret Pep Triglycerides Cholesterol LDL Cholesterol Direct HDL Cholesterol 05/04/19 05/04/19 05/04/19 03:51 06:05 12:33 WBC RDW Plt Count Lymph % (Auto) [place] % (Auto) Lymph # Seg Neutrophils % Seg Neuts % (Manual) Lymphocytes % (Manual) Nucleated RBC % Seg Neutrophils # Man Lymphocytes # (Manual) PT INR APTT ABG pH ABG pO2 ABG HCO3 ABG O2 Saturation ABG Base Excess ABG Hemoglobin Oxyhemoglobin Sodium Potassium Chloride 92.5 L Carbon Dioxide 19 L BUN 39 H Creatinine 4.3 H Glucose 148 H POC Glucose 138 H 190 H Phosphorus Magnesium Troponin T NT-Pro-B Natriuret Pep Triglycerides Cholesterol LDL Cholesterol Direct HDL Cholesterol 05/04/19 05/04/19 05/04/19 18:25 23:57 Unknown WBC RDW Plt Count Lymph % (Auto) [place] % (Auto) Lymph # Seg Neutrophils % Seg Neuts % (Manual) Lymphocytes % (Manual) Nucleated RBC % Seg Neutrophils # Man Lymphocytes # (Manual) PT INR APTT ABG pH ABG pO2 ABG HCO3 ABG O2 Saturation ABG Base Excess -3.4 L ABG Hemoglobin Oxyhemoglobin 94.5 L Sodium Potassium Chloride Carbon Dioxide BUN Creatinine Glucose POC Glucose 190 H 119 H Phosphorus Magnesium Troponin T NT-Pro-B Natriuret Pep Triglycerides Cholesterol LDL Cholesterol Direct HDL Cholesterol 05/05/19 05/05/19 05/05/19 03:45 06:09 12:07 WBC RDW Plt Count Lymph % (Auto) [place] % (Auto) Lymph # Seg Neutrophils % Seg Neuts % (Manual) Lymphocytes % (Manual) Nucleated RBC % Seg Neutrophils # Man Lymphocytes # (Manual) PT INR APTT ABG pH 7.456 H ABG pO2 64.8 L ABG HCO3 ABG O2 Saturation 93.6 L ABG Base Excess ABG Hemoglobin Oxyhemoglobin 91.4 L Sodium Potassium Chloride Carbon Dioxide BUN Creatinine Glucose POC Glucose 173 H 260 H Phosphorus Magnesium Troponin T NT-Pro-B Natriuret Pep Triglycerides Cholesterol LDL Cholesterol Direct HDL Cholesterol 05/05/19 05/06/19 05/06/19 18:34 00:49 04:20 WBC 12.8 H RDW 16.9 H Plt Count Lymph % (Auto) [place] % (Auto) Lymph # Seg Neutrophils % Seg Neuts % (Manual) 93.0 H Lymphocytes % (Manual) 2.0 L Nucleated RBC % 1.0 H Seg Neutrophils # Man 11.9 H Lymphocytes # (Manual) 0.3 L PT INR APTT ABG pH ABG pO2 ABG HCO3 ABG O2 Saturation ABG Base Excess ABG Hemoglobin Oxyhemoglobin Sodium Potassium Chloride Carbon Dioxide BUN Creatinine Glucose POC Glucose 334 H 230 H Phosphorus Magnesium Troponin T NT-Pro-B Natriuret Pep Triglycerides Cholesterol LDL Cholesterol Direct HDL Cholesterol 05/06/19 05/06/19 05/06/19 04:20 04:20 05:39 WBC RDW Plt Count Lymph % (Auto) [place] % (Auto) Lymph # Seg Neutrophils % Seg Neuts % (Manual) Lymphocytes % (Manual) Nucleated RBC % Seg Neutrophils # Man Lymphocytes # (Manual) PT INR APTT ABG pH ABG pO2 62.9 L ABG HCO3 ABG O2 Saturation 92.5 L ABG Base Excess ABG Hemoglobin Oxyhemoglobin 90.5 L Sodium Potassium Chloride 95.1 L Carbon Dioxide BUN 40 H Creatinine 3.6 H Glucose 267 H POC Glucose Phosphorus Magnesium Troponin T NT-Pro-B Natriuret Pep Triglycerides 380 H Cholesterol LDL Cholesterol Direct HDL Cholesterol 05/06/19 05/06/19 05/06/19 06:08 11:15 12:42 WBC RDW Plt Count Lymph % (Auto) [place] % (Auto) Lymph # Seg Neutrophils % Seg Neuts % (Manual) Lymphocytes % (Manual) Nucleated RBC % Seg Neutrophils # Man Lymphocytes # (Manual) PT INR APTT ABG pH 7.344 L ABG pO2 56.8 L ABG HCO3 ABG O2 Saturation 85.5 L ABG Base Excess ABG Hemoglobin Oxyhemoglobin 83.8 L Sodium Potassium Chloride Carbon Dioxide BUN Creatinine Glucose POC Glucose 325 H 168 H Phosphorus Magnesium Troponin T NT-Pro-B Natriuret Pep Triglycerides Cholesterol LDL Cholesterol Direct HDL Cholesterol 05/06/19 05/07/19 05/07/19 17:30 00:33 05:25 WBC RDW Plt Count Lymph % (Auto) [place] % (Auto) Lymph # Seg Neutrophils % Seg Neuts % (Manual) Lymphocytes % (Manual) Nucleated RBC % Seg Neutrophils # Man Lymphocytes # (Manual) PT INR APTT ABG pH ABG pO2 51.8 L ABG HCO3 ABG O2 Saturation 83.6 L ABG Base Excess -3.3 L ABG Hemoglobin Oxyhemoglobin 81.7 L Sodium Potassium Chloride Carbon Dioxide BUN Creatinine Glucose POC Glucose 172 H 131 H Phosphorus Magnesium Troponin T NT-Pro-B Natriuret Pep Triglycerides Cholesterol LDL Cholesterol Direct HDL Cholesterol 05/07/19 05/07/19 05/07/19 06:31 13:21 15:15 WBC RDW Plt Count Lymph % (Auto) [place] % (Auto) Lymph # Seg Neutrophils % Seg Neuts % (Manual) Lymphocytes % (Manual) Nucleated RBC % Seg Neutrophils # Man Lymphocytes # (Manual) PT INR APTT ABG pH 7.317 L ABG pO2 64.0 L ABG HCO3 ABG O2 Saturation 89.7 L ABG Base Excess ABG Hemoglobin Oxyhemoglobin 87.8 L Sodium Potassium Chloride Carbon Dioxide BUN Creatinine Glucose POC Glucose 223 H 200 H Phosphorus Magnesium Troponin T NT-Pro-B Natriuret Pep Triglycerides Cholesterol LDL Cholesterol Direct HDL Cholesterol 05/07/19 05/07/19 05/07/19 18:40 19:35 21:39 WBC RDW Plt Count Lymph % (Auto) [place] % (Auto) Lymph # Seg Neutrophils % Seg Neuts % (Manual) Lymphocytes % (Manual) Nucleated RBC % Seg Neutrophils # Man Lymphocytes # (Manual) PT INR APTT ABG pH ABG pO2 ABG HCO3 ABG O2 Saturation ABG Base Excess ABG Hemoglobin Oxyhemoglobin Sodium Potassium Chloride Carbon Dioxide BUN Creatinine Glucose POC Glucose 142 H 138 H Phosphorus Magnesium 1.60 L Troponin T NT-Pro-B Natriuret Pep Triglycerides Cholesterol LDL Cholesterol Direct HDL Cholesterol 05/07/19 05/08/19 05/08/19 23:49 09:32 12:31 WBC RDW Plt Count Lymph % (Auto) [place] % (Auto) Lymph # Seg Neutrophils % Seg Neuts % (Manual) Lymphocytes % (Manual) Nucleated RBC % Seg Neutrophils # Man Lymphocytes # (Manual) PT INR APTT ABG pH ABG pO2 65.1 L ABG HCO3 18.7 L ABG O2 Saturation 91.9 L ABG Base Excess -5.8 L ABG Hemoglobin Oxyhemoglobin 90.1 L Sodium Potassium Chloride Carbon Dioxide BUN Creatinine Glucose POC Glucose 195 H 298 H Phosphorus Magnesium Troponin T NT-Pro-B Natriuret Pep Triglycerides Cholesterol LDL Cholesterol Direct HDL Cholesterol 05/08/19 13:54 WBC RDW Plt Count Lymph % (Auto) [place] % (Auto) Lymph # Seg Neutrophils % Seg Neuts % (Manual) Lymphocytes % (Manual) Nucleated RBC % Seg Neutrophils # Man Lymphocytes # (Manual) PT INR APTT ABG pH 7.327 L ABG pO2 67.2 L ABG HCO3 18.4 L ABG O2 Saturation 91.6 L ABG Base Excess -6.8 L ABG Hemoglobin Oxyhemoglobin 89.6 L Sodium Potassium Chloride Carbon Dioxide BUN Creatinine Glucose POC Glucose Phosphorus Magnesium Troponin T NT-Pro-B Natriuret Pep Triglycerides Cholesterol LDL Cholesterol Direct HDL Cholesterol Chest x-ray: image reviewed (ET tube in good position but somewhat high end of normal. Changes of COPD and minimal interstitial changes bilaterally no acute infiltrates.)
[2019-05-08 15:28] LABS: Calcium 8.6 mg/dL (8.4-10.2); Hematocrit 42.3 % (30.3-42.9); Mean Corpuscular HGB Conc 31 % (30-34); Mean Corpuscular Volume 94 fl (79-97); Platelet Count 176 K/mm3 (140-440); Red Blood Count 4.52 M/mm3 (3.65-5.03); Red Cell Distribution Width 16.9 % (13.2-15.2)
--- NOTE | 2019-05-08 15:58 | Progress Note ---
Assessment and Plan Assessment and plan: 78 yo AA woman with a history of [place], Diastolic CHF, CAD S/P CABG, DM, Asthma, OA, Anxiety disorder, Chronic Respiratory Failure on 2-3 L Home oxygen due to end stage COPD and ESRD on HD(M,W,F) who presented to [facility] ED with SOB and wheezing for the last 2 days. No improvement with home breathing treatments. Patient was found tachypneic and respiratory distress upon their arrival to the house. Patient received albuterol 7.5 mg, started initiation of mag 1 g, Decadron 20 mg IV, and required CPAP and additional oxygen support during transport to the hospital. Patient states she has a history of one intubation. The last 3 days she has been short of breath with wheezing and cough productive of yellow sputum. She is compliant with dialysis and is due today. Patient has very little urine output daily. Patient did complain of chest pain prior to arrival which has improved with CPAP support. Patient very SOB and wheezing during my exam.Patient has not been exposed to anyone with fever and Dry cough.No recent travel.No exposure to foreign traveled patients. * Still on full ventilaotry support. Not tolerating wean becomes tachypenic, fentanyl for pain control added, continue steroids * 05/06: Discussed with record librarian plan is for extubation today. Continue management. * 05/07: Discussed with family and record librarian, will proceed with re-intubation and possible plan for Trach and PEG. * Daughter informs me that the patient is very anxious and believes that this hampers extubation. Stated that she had discussed with record librarian to reintubate the patient if she failed extubation. She does understand the process of weaning from ventilation. Acute on chronic hypoxic respiratory failure Now placed on Mechanical ventilation Patient chronically on home oxygen Continue aggressive neb treatments Steroids being tapered Pulmonary consult note reviewed Continue management per Dr. Buck's recommendations COPD exacerbation: Continue neb treatments, antibiotics, steroids and oxygen supplement Anxiety disorder Continue Klonopin Hyperglycemia Continue to monitor likely induced by steroid use. end-stage renal disease: On hemodialysis Friday and Friday Nephrology note reviewed Acute metabolic acidosis Chronic diastolic heart failure, Hypertension, Anemia of chronic kidney disease The high probability of a clinically significant, sudden or life threatening deterioration of the [pulmonary] system(s) required my full and direct attention, intervention and personal management. The aggregate critical care time was [35] minutes. This time is in addition to time spent performing reported procedures but includes the following: [x] Data Review and interpretation [x] Patient assessment and monitoring of vital signs [x] Documentation [x] Medication orders and management History Interval history: Patient seen and examined was extubated and on BIPAP but was still struggling to breath and discussed with family, expressed that the patient may need Trach and PEG. AND THEY ARE OK WITH IT. Hospitalist Physical - Physical exam Narrative exam: VITAL SIGNS: Reviewed. GENERAL: The patient appears chronically ill, on mechanical ventilation vital signs as documented. HEAD: No signs of head trauma. EYES: Pupils are equal. EARS: Hearing grossly intact. MOUTH: ET tube in place. NECK: No adenopathy, no JVD. CHEST: dimished, shallow. tachypenia No wheezes, rales, or rhonchi. CARDIAC: tachycardia, S1 and S2, without murmurs, gallops, or rubs. VASCULAR: No Edema. Peripheral pulses normal and equal in all extremities. ABDOMEN: Soft, non tender and non distended. No rebound or guarding, and no masses palpated. Bowel Sounds normal. MUSCULOSKELETAL: Restful. Moves all extremities. NEUROLOGIC EXAM: Disoriented, currently on full mechanical support PSYCHIATRIC: Unable to assess SKIN: detail exam as documented in skin assessment - Constitutional Vitals: Temp Pulse Resp BP Pulse Ox 99.6 F 109 H 28 H 117/79 96 05/08/19 12:00 05/08/19 14:16 05/08/19 14:16 05/08/19 14:16 05/08/19 14:16 General appearance: Present: mild distress, well-nourished ROB score - Rob Score Age > 65: (1) Yes Aspirin use within the Past 7 Days: (1) Yes 3 or more CAD Risk Factors: (1) Yes 2 or more Angina events in past 24 hrs: (0) No Known CAD with more than 50% Stenosis: (0) No Elevated Cardiac Markers: (0) No ST Deviation Greater than 0.5mm: (0) No ROB Score: 3 Results - Labs CBC & Chem 7: 05/08/19 14:44 05/08/19 14:44 Labs: Laboratory Last Values WBC 15.3 K/mm3 (4.5-11.0) H 05/08/19 14:44 RBC 4.52 M/mm3 (3.65-5.03) 05/08/19 14:44 Hgb 13.0 gm/dl (10.1-14.3) 05/08/19 14:44 Hct 42.3 % (30.3-42.9) 05/08/19 14:44 MCV 94 fl (79-97) 05/08/19 14:44 MCH 29 pg (28-32) 05/08/19 14:44 MCHC 31 % (30-34) 05/08/19 14:44 RDW 16.9 % (13.2-15.2) H 05/08/19 14:44 Plt Count 176 K/mm3 (140-440) 05/08/19 14:44 Lymph % (Auto) 10.9 % (13.4-35.0) L 04/30/19 11:32 [place] % (Auto) 7.4 % (0.0-7.3) H 04/30/19 11:32 Eos % (Auto) 0.4 % (0.0-4.3) 04/30/19 11:32 Baso % (Auto) 0.7 % (0.0-1.8) 04/30/19 11:32 Lymph # 0.8 K/mm3 (1.2-5.4) L 04/30/19 11:32 [place] # 0.5 K/mm3 (0.0-0.8) 04/30/19 11:32 Eos # 0.0 K/mm3 (0.0-0.4) 04/30/19 11:32 Baso # 0.1 K/mm3 (0.0-0.1) 04/30/19 11:32 Add Manual Diff Complete 05/06/19 04:20 Total Counted 100 05/06/19 04:20 Seg Neutrophils % Digital Ad Trafficker 05/06/19 04:20 Seg Neuts % (Manual) 93.0 % (40.0-70.0) H 05/06/19 04:20 Band Neutrophils % 0 % 05/06/19 04:20 Lymphocytes % (Manual) 2.0 % (13.4-35.0) L 05/06/19 04:20 Reactive Lymphs % (Man) 0 % 05/06/19 04:20 Monocytes % (Manual) 5.0 % (0.0-7.3) 05/06/19 04:20 Eosinophils % (Manual) 0 % (0.0-4.3) 05/06/19 04:20 Basophils % (Manual) 0 % (0.0-1.8) 05/06/19 04:20 Metamyelocytes % 0 % 05/06/19 04:20 Myelocytes % 0 % 05/06/19 04:20 Promyelocytes % 0 % 05/06/19 04:20 Blast Cells % 0 % 05/06/19 04:20 Nucleated RBC % 1.0 % (0.0-0.9) H 05/06/19 04:20 Seg Neutrophils # 6.0 K/mm3 (1.8-7.7) 04/30/19 11:32 Seg Neutrophils # Man 11.9 K/mm3 (1.8-7.7) H 05/06/19 04:20 Band Neutrophils # 0.0 K/mm3 05/06/19 04:20 Lymphocytes # (Manual) 0.3 K/mm3 (1.2-5.4) L 05/06/19 04:20 Abs React Lymphs (Man) 0.0 K/mm3 05/06/19 04:20 Monocytes # (Manual) 0.6 K/mm3 (0.0-0.8) 05/06/19 04:20 Eosinophils # (Manual) 0.0 K/mm3 (0.0-0.4) 05/06/19 04:20 Basophils # (Manual) 0.0 K/mm3 (0.0-0.1) 05/06/19 04:20 Metamyelocytes # 0.0 K/mm3 05/06/19 04:20 Myelocytes # 0.0 K/mm3 05/06/19 04:20 Promyelocytes # 0.0 K/mm3 05/06/19 04:20 Blast Cells # 0.0 K/mm3 05/06/19 04:20 WBC Morphology Not Reportable 05/06/19 04:20 Hypersegmented Neuts Not Reportable 05/06/19 04:20 Hyposegmented Neuts Not Reportable 05/06/19 04:20 Hypogranular Neuts Not Reportable 05/06/19 04:20 Smudge Cells Not Reportable 05/06/19 04:20 Toxic Granulation Not Reportable 05/06/19 04:20 Toxic Vacuolation Not Reportable 05/06/19 04:20 Dohle Bodies Not Reportable 05/06/19 04:20 Pelger-Huet Anomaly Not Reportable 05/06/19 04:20 Ariel Rods Not Reportable 05/06/19 04:20 Platelet Estimate Consistent w auto 05/06/19 04:20 Clumped Platelets Not Reportable 05/06/19 04:20 Plt Clumps, EDTA Not Reportable 05/06/19 04:20 Large Platelets Not Reportable 05/06/19 04:20 Giant Platelets Not Reportable 05/06/19 04:20 Platelet Satelliting Not Reportable 05/06/19 04:20 Plt Morphology Comment Not Reportable 05/06/19 04:20 RBC Morphology Not Reportable 05/06/19 04:20 Dimorphic RBCs Not Reportable 05/06/19 04:20 Polychromasia Not Reportable 05/06/19 04:20 Hypochromasia Not Reportable 05/06/19 04:20 Poikilocytosis Not Reportable 05/06/19 04:20 Anisocytosis 1+ 05/06/19 04:20 Microcytosis Not Reportable 05/06/19 04:20 Macrocytosis Not Reportable 05/06/19 04:20 Spherocytes Not Reportable 05/06/19 04:20 Pappenheimer Bodies Not Reportable 05/06/19 04:20 Sickle Cells Not Reportable 05/06/19 04:20 Target Cells Not Reportable 05/06/19 04:20 Tear Drop Cells Not Reportable 05/06/19 04:20 Ovalocytes Not Reportable 05/06/19 04:20 Helmet Cells Not Reportable 05/06/19 04:20 [place] Bodies Not Reportable 05/06/19 04:20 [place] Rings Not Reportable 05/06/19 04:20 [place] Cells Not Reportable 05/06/19 04:20 Bite Cells Not Reportable 05/06/19 04:20 Crenated Cell Not Reportable 05/06/19 04:20 Elliptocytes Not Reportable 05/06/19 04:20 Acanthocytes (Spur) Not Reportable 05/06/19 04:20 Rouleaux Not Reportable 05/06/19 04:20 Hemoglobin C Crystals Not Reportable 05/06/19 04:20 Schistocytes Not Reportable 05/06/19 04:20 Malaria parasites Not Reportable 05/06/19 04:20 [place] Bodies Not Reportable 05/06/19 04:20 Hem Pathologist Commnt No 05/06/19 04:20 PT 14.3 Sec. (12.2-14.9) 04/30/19 15:23 INR 1.10 (0.87-1.13) 04/30/19 15:23 APTT 37.2 Sec. (24.2-36.6) H 04/30/19 15:23 ABG pH 7.327 pH Units (7.350-7.450) L 05/08/19 13:54 ABG pCO2 36.0 mm Hg 05/08/19 13:54 ABG pO2 67.2 mm Hg (80.0-90.0) L 05/08/19 13:54 ABG HCO3 18.4 mmol/L (20.0-26.0) L 05/08/19 13:54 ABG O2 Saturation 91.6 % (95.0-99.0) L 05/08/19 13:54 ABG O2 Content 16.8 (0.0-44) 05/08/19 13:54 ABG Base Excess -6.8 mmol/L (-2.0-3.0) L 05/08/19 13:54 ABG Hemoglobin 13.3 gm/dl (12.0-16.0) 05/08/19 13:54 ABG Carboxyhemoglobin 1.4 % (0.0-5.0) 05/08/19 13:54 ABG Methemoglobin 0.7 % (0.0-1.5) 05/08/19 13:54 Oxyhemoglobin 89.6 % (95.0-99.0) L 05/08/19 13:54 FiO2 35 % 05/08/19 13:54 Sodium 137 mmol/L (137-145) 05/08/19 14:44 Potassium 4.6 mmol/L (3.6-5.0) 05/08/19 14:44 Chloride 91.3 mmol/L (98-107) L 05/08/19 14:44 Carbon Dioxide 17 mmol/L (22-30) L 05/08/19 14:44 Anion Gap 33 mmol/L 05/08/19 14:44 BUN 64 mg/dL (7-17) H 05/08/19 14:44 Creatinine 5.0 mg/dL (0.7-1.2) H 05/08/19 14:44 Estimated GFR 10 ml/min 05/08/19 14:44 BUN/Creatinine Ratio 13 % 05/08/19 14:44 Glucose 337 mg/dL (65-100) H 05/08/19 14:44 POC Glucose 298 (70-105) H 05/08/19 12:31 Hemoglobin A1c 5.6 % (4-6) 04/30/19 11:32 Calcium 8.6 mg/dL (8.4-10.2) 05/08/19 14:44 Phosphorus 12.90 mg/dL (2.5-4.5) H 05/03/19 09:44 Magnesium 1.60 mg/dL (1.7-2.3) L 05/07/19 19:35 Total Bilirubin 0.40 mg/dL (0.1-1.2) 05/01/19 12:43 AST 39 units/L (5-40) 05/01/19 12:43 ALT 23 units/L (7-56) 05/01/19 12:43 Alkaline Phosphatase 102 units/L (35-129) 05/01/19 12:43 Total Creatine Kinase Cancelled 04/30/19 14:20 CK-MB (CK-2) Cancelled 04/30/19 14:20 CK-MB (CK-2) Rel Index Cancelled 04/30/19 14:20 Troponin T 0.117 ng/mL (0.00-0.029) H* 04/30/19 14:20 NT-Pro-B Natriuret Pep 96910 pg/mL (0-900) H 04/30/19 14:20 Total Protein 6.6 g/dL (6.3-8.2) 05/01/19 12:43 Albumin 4.0 g/dL (3.9-5) 05/01/19 12:43 Albumin/Globulin Ratio 1.5 % 05/01/19 12:43 Triglycerides 380 mg/dL (2-149) H 05/06/19 04:20 Cholesterol 303 mg/dL (50-199) H 04/30/19 14:20 LDL Cholesterol Direct 190 mg/dL (50-130) H 04/30/19 14:20 HDL Cholesterol 105 mg/dL (40-59) H 04/30/19 14:20 Cholesterol/HDL Ratio 2.88 % 04/30/19 14:20 Hepatitis A IgM Ab Non-reactive (NonReactive) 04/30/19 14:20 Hep Bs Antigen Non-reactive (Negative) 04/30/19 14:20 Hep B Core IgM Ab Non-reactive (NonReactive) 04/30/19 14:20 Hepatitis C Antibody Non-reactive (NonReactive) 04/30/19 14:20 Microbiology: Microbiology 05/04/19 Unknown Tracheal Aspirate Sputum Culture - Final Neisseria Mucosa [place]/IV: Voiding Method Incontinent IV Catheter Type [Left Mid-line Subclavian] IV Catheter Type [Right Upper INT / Saline Lock arm] IV Catheter Type [Right Hand] INT / Saline Lock IV Catheter Type [Left Forearm INT / Saline Lock ] IV Catheter Type [Right VAS Cath Internal Jugular] Active Medications - Current Medications Current Medications: Generic Name Dose Route Start Last Admin Trade Name Freq PRN Reason Stop Dose Admin Acetaminophen 650 mg 04/30/19 17:44 05/05/19 15:22 Tylenol PO 650 mg Q4H PRN Administration Pain MILD(1-3)/Fever >100.5/HERRMANN Albuterol 2.5 mg 04/30/19 18:32 05/02/19 04:49 Proventil IH 2.5 mg Q3H PRN Administration Shortness Of Breath Albuterol/Ipratropium 1 ampul 04/30/19 20:00 05/08/19 08:26 Duoneb *Not For Prn Use* IH 1 ampul QIDRT KVNG Administration Allopurinol 100 mg 04/30/19 18:00 05/07/19 10:16 Zyloprim PO 100 mg QDAY KVNG Administration Lipase/Protease/Amylase 1 each 05/04/19 14:58 Denisha Gould 10,500 Unit FEEDTUBE PRN PRN For Clogged Feeding Tube Arformoterol Tartrate 15 mcg 05/01/19 08:00 05/08/19 08:26 Brovana Nebu IH 15 mcg Q12HRT KVNG Administration Aspirin 81 mg 04/30/19 18:00 05/07/19 10:20 Halfprin Ec PO 81 mg QDAY KVNG Administration Budesonide 0.5 mg 05/03/19 11:00 05/08/19 08:26 Pulmicort IH 0.5 mg Q12HRT KVNG Administration Buspirone HCl 15 mg 05/04/19 10:00 05/07/19 22:08 Buspar PO Not Given BID [facility] Famotidine 10 mg 04/30/19 22:00 05/07/19 22:08 Pepcid PO Not Given BID [facility] Fentanyl 50 mcg 05/06/19 08:00 05/08/19 10:58 Sublimaze IV 50 mcg Q2H KVNG Administration Heparin Sodium (Porcine) 5,000 unit 05/04/19 22:00 05/07/19 22:07 Heparin SUB-Q 5,000 unit Q12HR KVNG Administration Hydralazine HCl 5 mg 05/01/19 22:47 05/06/19 04:57 Apresoline IV 5 mg Q6HR PRN Administration SBP > 160 AND/OR DBP > 100 Hydrophilic Ointment 1 applic 05/04/19 09:42 Vaseline Lip Therapy TP Q2HR PRN Dry Lips Sodium Chloride 100 mls @ 999 mls/hr 04/30/19 13:29 Nacl 0.9% IV ALBINO PRN Hypotension Levofloxacin/Dextrose 500 mg in 100 mls @ 100 mls/hr 05/02/19 19:00 05/06/19 18:12 Levaquin 500mg/100ml IV 05/10/19 19:59 100 mls/hr Q48H KVNG Administration Propofol 1,000 mg in 100 mls @ 1.482 mls/hr 05/04/19 09:00 05/06/19 07:50 Diprivan 10 Mg/Ml IV 0 mcg/kg/min TITR KVNG 0 mls/hr Titration Protocol 5 MCG/KG/MIN Norepinephrine 4 mg in 250 mls @ 7.5 mls/hr 05/08/19 09:00 Levophed Drip 4 Mg/Ns 250 Ml IV TITR KVNG Protocol 2 MCG/MIN Insulin Human Lispro 0 unit 05/05/19 18:00 05/08/19 06:46 Humalog SUB-Q Not Given Q6HR [facility] Protocol Isosorbide Dinitrate 10 mg 05/04/19 14:00 05/08/19 06:09 Isordil Titradose PO Not Given Q8HR [facility] Lorazepam 1 mg 05/02/19 11:08 05/07/19 17:12 Ativan IV 1 mg Q4H PRN Administration Anxiety Methylprednisolone Sodium Succinate 60 mg 05/04/19 09:00 05/08/19 02:32 Solu-Medrol IV 60 mg Q6H KVNG Administration Metoprolol Tartrate 50 mg 04/30/19 22:00 05/07/19 22:08 Metoprolol PO Not Given BID KVNG Montelukast Sodium 10 mg 04/30/19 19:00 05/07/19 18:16 Singulair PO 10 mg QPM KVNG Administration Multi-Ingred Cream/Lotion/Oil/Oint 1 applic 05/04/19 09:42 Artificial Tears Ophth Oint OU Q4HR PRN Dry Eye(s) Pravastatin Sodium 40 mg 04/30/19 22:00 05/07/19 22:08 Pravachol PO Not Given QHS KVNG Simple Syrup 15 ml 05/04/19 14:58 Simple Syrup FEEDTUBE PRN PRN Hypoglycemia Simple Syrup 30 ml 05/04/19 14:58 Simple Syrup FEEDTUBE PRN PRN Hypoglycemia Sodium Bicarbonate 650 mg 04/30/19 22:00 05/07/19 22:08 Sodium Bicarbonate PO Not Given BID KVNG Sodium Bicarbonate 325 mg 05/04/19 14:58 Sodium Bicarbonate FEEDTUBE PRN PRN For Clogged Feeding Tube Sodium Chloride 10 ml 04/30/19 22:00 05/07/19 22:07 Sodium Chloride Flush Syringe 10 Ml IV 10 ml BID KVNG Administration Sodium Chloride 10 ml 04/30/19 17:44 05/01/19 03:55 Sodium Chloride Flush Syringe 10 Ml IV 10 ml PRN PRN Administration LINE FLUSH Nutrition/Malnutrition Assess - Dietary Evaluation Nutrition/Malnutrition Findings: Nutrition Notes Start: 05/04/19 11:09 Freq: Status: Active Protocol: Document 05/06/19 08:23 LP (Rec: 05/06/19 08:27 LP [id number]) Nutrition Notes Initial or Follow up Reassessment Current Diagnosis CKD (stage V CKD),COPD, Coronary Artery Disease, Diabetes,Heart Failure, Respiratory Failure Current Diet Nepro at 30ml/hr Labs/Tests Reviewed Pertinent Medications Reviewed Height 5 ft Weight 50.6 kg [place] Body Weight (kg) 45.45 BMI 21.7 Weight Status Appropriate Subjective/Other Information Pt tolerating TF at goal rate. Pt remains on vent. Burn Absent Trauma Absent GI Symptoms None Difficulty In Swallowing Current % PO Negligible Minimum of two criteria Yes Interpretation of Weight Loss (severe) >5% in 1 month Fluid Accumulation Mild (non-severe) Reduced Aluminum Siding Applicator Strength Measurably Reduced (severe) #2 Nutrition Diagnosis Inadequate oral intake Diagnosis Progress(for reassessment Continues documentation) #1 Nutrition Diagnosis Malnutrition Diagnosis Progress(for reassessment Continues documentation) Is patient on ventilator? Yes Is Patient Ambulatory and/or Out of Bed No REE-([facility] Jepr-confined to bed) [phone] Calculation Used for Recommendations [facility] Additional Notes Protein: 59-98g (1.2-2g/kg) Fluid: per MD Nutrition Intervention Change Diet Order: TF Nutrition Support: Nepro 1.8 at 30 ml/hr Flush 130 ml q4h Kcal 1,296 Protein (gm) 58 Fluid (mL) 523 Goal #1 Meet at least 80% of kcal and protein needs via TF Anticipated Discharge Needs: Unable to determine at this time Follow-Up By: 05/10/19 Additional Comments Follow for TF tolerance
[2019-05-08] MEDS ORDERED: MIDAZOLAM 5 MG/5 ML INJ MDV IV ONE (16:19)
[2019-05-08] MEDS: busPIRone 10 MG TAB PO SCH ×2 (20:42→23:36)
[2019-05-08] MEDS: FAMOTIDINE 10 MG TAB PO SCH (23:29)
[2019-05-08] MEDS: SODIUM BICARBONATE 650 MG TAB PO SCH (23:30)
[2019-05-08] MEDS: PRAVASTATIN 40 MG TAB PO SCH (23:40)
[2019-05-09] MEDS: fentaNYL 100 MCG/2 ML INJ IV SCH ×11 (03:21→23:52)
--- NOTE | 2019-05-09 03:42 | XRay Report ---
CHEST 1 VIEW INDICATION / CLINICAL INFORMATION: follow up respiratory failure. COMPARISON: 05/08/2019 FINDINGS: SUPPORT DEVICES: Endotracheal tube, nasogastric tube, right central venous line HEART / MEDIASTINUM: No significant abnormality. LUNGS / PLEURA: Left retrocardiac density No pneumothorax. ADDITIONAL FINDINGS: No significant additional findings. IMPRESSION: The lower left thorax is not included on this exam. There may be left retrocardiac opacity representi ng either atelectasis or pneumonia Signer Name: Huebrt Savage MD FACR Signed: 05/09/2019 3:37 AM Workstation Name: [id number]
[2019-05-09] MEDS: INSULIN LISPRO 100 UNIT/ML SUB-Q SCH ×4 (06:26→19:13)
[2019-05-09] MEDS: ISOSORBIDE DINITRATE 10 MG TAB PO SCH ×4 (06:27→22:11)
[2019-05-09] MEDS: BUDESONIDE 0.5 MG/2 ML NEBU IH SCH ×2 (07:44→21:44)
[2019-05-09] MEDS: IPRATROPIUM/ALBUTEROL SULFATE 3 ML AMPUL.NEB IH SCH ×4 (07:44→21:44)
[2019-05-09] MEDS: ARFORMOTEROL 15 MCG/2 ML NEBU IH SCH ×2 (07:44→21:44)
[2019-05-09] MEDS: allopurinoL 100 MG TAB PO SCH ×2 (07:53→11:20)
[2019-05-09] MEDS: FAMOTIDINE 10 MG TAB PO SCH ×3 (07:53→22:10)
[2019-05-09] MEDS: SODIUM BICARBONATE 650 MG TAB PO SCH ×3 (07:53→22:11)
[2019-05-09] MEDS: HEPARIN 5,000 UNIT/1 ML VIAL SUB-Q SCH ×4 (07:54→22:12)
[2019-05-09] MEDS: ASPIRIN EC 81 MG TAB PO SCH ×2 (07:54→10:43)
[2019-05-09] MEDS: MONTELUKAST 10 MG TAB PO SCH ×2 (07:55→19:02)
[2019-05-09] MEDS: METOPROLOL TARTRATE 50 MG TAB PO SCH ×4 (07:55→22:11)
[2019-05-09 07:56] LABS: Hematocrit 40.2 % (30.3-42.9); Hemoglobin 12.6 gm/dl (10.1-14.3); Mean Corpuscular HGB Conc 32 % (30-34); Mean Corpuscular Volume 92 fl (79-97); Platelet Count 147 K/mm3 (140-440); Red Blood Count 4.38 M/mm3 (3.65-5.03); Red Cell Distribution Width 17.1 % (13.2-15.2)
[2019-05-09 08:06] LABS: Calcium 8.5 mg/dL (8.4-10.2)
[2019-05-09] MEDS: methylPREDNISolone Sod Succinate 125 MG/2 ML INJ IV SCH ×4 (08:13→21:18)
[2019-05-09 09:53] LABS: Band Neutrophils # (Manual) 0.7 K/mm3; Basophils % (Manual) 0 % (0.0-1.8); Eosinophils % (Manual) 0 % (0.0-4.3); Total Cells Counted 100
[2019-05-09 09:54] LABS: Target Cells Few
[2019-05-09 09:55] LABS: Platelet Estimate Consistent w Auto; Tear Drop Cells Few
--- NOTE | 2019-05-09 10:00 | Event Note ---
Date: 05/09/19 Consult for trach/PEG noted. Pt chart reviewed. Pt with hx of CHF, [place], chronic respiratory failure, on HD who presented to hospital on 04/30/19 with SOB. Respiratory status decompensated on 05/03 and she was intubated. Patient appears to have underlying anxiety. She was extubated on 05/06 but reintubated within 24 hours. Surgery is consulted to evaluate for trach/peg. Discussed with Dr. Preciado. Will speak with family tomorrow to discuss procedures and schedule them if they are agreeable. Full consult to follow tomorrow.
[2019-05-09] MEDS: busPIRone 10 MG TAB PO SCH ×2 (10:38→22:11)
--- NOTE | 2019-05-09 13:44 | Progress Note ---
Assessment and Plan Impression: COPD with acute exacerbation Mild interstitial lung disease Acute hypoxic hypercapnic respiratory failure. End-stage renal disease on hemodialysis Diabetes mellitus. Possible left lower lobe atelectasis or infiltrate per radiology report (unable to see images) Recommendations: Continue with mechanical ventilation. Adjustments were made in the settings for proper ventilation Continue with inhaled bronchodilator. Will consider nebulized CAMPOS if available. Continue with steroids and Levaquin. Check sputum/tracheal aspirate for Gram stain and culture Patient be closely monitored. DVT and GI prophylaxis. Total critical care time 31-minute Subjective Date of service: 05/09/19 Principal diagnosis: Acute resp failure,COPd exacerbation Interval history: Patient was intubated yesterday. Remain on mechanical ventilator. Increased work of breathing noted in spite of being on mechanical ventilator. Objective Vital Signs - 12hr 05/09/19 05/09/19 05/09/19 02:00 03:00 04:00 Temperature 98.6 F Pulse Rate 110 H 110 H 106 H Pulse Rate [ Anterior Bilateral] Respiratory 25 H 22 24 Rate Respiratory Rate [Anterior Bilateral] Blood Pressure 114/77 134/89 134/89 O2 Sat by Pulse 92 95 93 Oximetry 05/09/19 05/09/19 05/09/19 04:50 05:00 06:00 Temperature Pulse Rate 117 H 103 H 112 H Pulse Rate [ Anterior Bilateral] Respiratory 24 25 H Rate Respiratory Rate [Anterior Bilateral] Blood Pressure 91/54 81/54 94/49 O2 Sat by Pulse 94 93 93 Oximetry 05/09/19 05/09/19 05/09/19 06:27 07:00 07:44 Temperature Pulse Rate 109 H 110 H 122 H Pulse Rate [ 118 H Anterior Bilateral] Respiratory 24 Rate Respiratory 28 H Rate [Anterior Bilateral] Blood Pressure 94/49 94/49 171/98 O2 Sat by Pulse 95 95 Oximetry 05/09/19 05/09/19 05/09/19 08:00 09:00 10:01 Temperature 98.2 F Pulse Rate 110 H 123 H 120 H Pulse Rate [ Anterior Bilateral] Respiratory 29 H 23 25 H Rate Respiratory Rate [Anterior Bilateral] Blood Pressure 171/98 143/98 164/95 O2 Sat by Pulse 92 91 90 Oximetry 05/09/19 05/09/19 05/09/19 10:43 11:01 11:52 Temperature 98.3 F Pulse Rate 125 H 110 H Pulse Rate [ Anterior Bilateral] Respiratory 25 H Rate Respiratory Rate [Anterior Bilateral] Blood Pressure 164/95 121/53 O2 Sat by Pulse 94 Oximetry 05/09/19 12:06 Temperature Pulse Rate 114 H Pulse Rate [ 112 H Anterior Bilateral] Respiratory Rate Respiratory 25 H Rate [Anterior Bilateral] Blood Pressure 222/130 O2 Sat by Pulse 94 Oximetry Constitutional: other (Sedated and orally intubated) Eyes: non-icteric ENT: other (orally intubated and sedated.) Neck: supple Effort: mildly labored Ascultation: Bilateral: diminished breath sounds, rales, rhonchi Percussion: Bilateral: not dull Cardiovascular: other (sinus tach) Gastrointestinal: normoactive bowel sounds Neurologic: unable to assess CBC and BMP: 05/09/19 07:14 05/09/19 07:14 ABG, PT/INR, D-dimer: ABG ABG pH 7.327 pH Units (7.350-7.450) L 05/08/19 13:54 ABG pCO2 36.0 mm Hg 05/08/19 13:54 ABG pO2 67.2 mm Hg (80.0-90.0) L 05/08/19 13:54 ABG O2 Saturation 91.6 % (95.0-99.0) L 05/08/19 13:54 PT/INR, D-dimer PT 14.3 Sec. (12.2-14.9) 04/30/19 15:23 INR 1.10 (0.87-1.13) 04/30/19 15:23 Abnormal lab findings: Abnormal Labs 04/30/19 04/30/19 04/30/19 10:12 11:32 11:32 WBC RDW 17.1 H Plt Count 84 L Lymph % (Auto) 10.9 L Dane % (Auto) 7.4 H Lymph # 0.8 L Seg Neutrophils % 80.6 H Seg Neuts % (Manual) Lymphocytes % (Manual) Nucleated RBC % Seg Neutrophils # Man Lymphocytes # (Manual) PT 28.3 H INR 2.59 H APTT ABG pH 7.347 L ABG pO2 221.9 H ABG HCO3 ABG O2 Saturation 99.3 H ABG Base Excess -2.2 L ABG Hemoglobin Oxyhemoglobin Sodium Potassium Chloride Carbon Dioxide BUN Creatinine Glucose POC Glucose Phosphorus Magnesium Troponin T NT-Pro-B Natriuret Pep Triglycerides Cholesterol LDL Cholesterol Direct HDL Cholesterol 04/30/19 04/30/19 04/30/19 14:20 15:23 18:05 WBC RDW Plt Count Lymph % (Auto) Dane % (Auto) Lymph # Seg Neutrophils % Seg Neuts % (Manual) Lymphocytes % (Manual) Nucleated RBC % Seg Neutrophils # Man Lymphocytes # (Manual) PT INR APTT 37.2 H ABG pH ABG pO2 79.2 L ABG HCO3 ABG O2 Saturation ABG Base Excess ABG Hemoglobin Oxyhemoglobin 94.4 L Sodium 146 H Potassium 3.2 L Chloride Carbon Dioxide BUN 39 H Creatinine 2.6 H Glucose POC Glucose Phosphorus Magnesium Troponin T 0.117 H* NT-Pro-B Natriuret Pep 33135 H Triglycerides 178 H Cholesterol 303 H LDL Cholesterol Direct 190 H HDL Cholesterol 105 H 04/30/19 05/01/19 05/01/19 22:20 00:48 04:46 WBC RDW Plt Count Lymph % (Auto) Dane % (Auto) Lymph # Seg Neutrophils % Seg Neuts % (Manual) Lymphocytes % (Manual) Nucleated RBC % Seg Neutrophils # Man Lymphocytes # (Manual) PT INR APTT ABG pH ABG pO2 98.3 H ABG HCO3 ABG O2 Saturation ABG Base Excess ABG Hemoglobin Oxyhemoglobin Sodium Potassium Chloride Carbon Dioxide BUN Creatinine Glucose POC Glucose 108 H 142 H Phosphorus Magnesium Troponin T NT-Pro-B Natriuret Pep Triglycerides Cholesterol LDL Cholesterol Direct HDL Cholesterol 05/01/19 05/01/19 05/01/19 12:43 12:43 13:27 WBC RDW 16.4 H Plt Count 132 L Lymph % (Auto) Dane % (Auto) Lymph # Seg Neutrophils % Seg Neuts % (Manual) 95.0 H Lymphocytes % (Manual) 3.0 L Nucleated RBC % Seg Neutrophils # Man Lymphocytes # (Manual) 0.2 L PT INR APTT ABG pH ABG pO2 ABG HCO3 ABG O2 Saturation ABG Base Excess ABG Hemoglobin Oxyhemoglobin Sodium Potassium Chloride 95.1 L Carbon Dioxide 21 L BUN 29 H Creatinine 3.2 H Glucose 137 H POC Glucose 114 H Phosphorus Magnesium Troponin T NT-Pro-B Natriuret Pep Triglycerides Cholesterol LDL Cholesterol Direct HDL Cholesterol 05/01/19 05/02/19 05/02/19 18:41 00:01 05:40 WBC RDW Plt Count Lymph % (Auto) Dane % (Auto) Lymph # Seg Neutrophils % Seg Neuts % (Manual) Lymphocytes % (Manual) Nucleated RBC % Seg Neutrophils # Man Lymphocytes # (Manual) PT INR APTT ABG pH ABG pO2 ABG HCO3 ABG O2 Saturation ABG Base Excess ABG Hemoglobin Oxyhemoglobin Sodium Potassium Chloride Carbon Dioxide BUN Creatinine Glucose POC Glucose 127 H 110 H 135 H Phosphorus Magnesium Troponin T NT-Pro-B Natriuret Pep Triglycerides Cholesterol LDL Cholesterol Direct HDL Cholesterol 05/02/19 05/02/19 05/03/19 13:06 19:14 09:44 WBC RDW 17.1 H Plt Count Lymph % (Auto) Dane % (Auto) Lymph # Seg Neutrophils % Seg Neuts % (Manual) Lymphocytes % (Manual) Nucleated RBC % Seg Neutrophils # Man Lymphocytes # (Manual) PT INR APTT ABG pH ABG pO2 ABG HCO3 ABG O2 Saturation ABG Base Excess ABG Hemoglobin Oxyhemoglobin Sodium Potassium Chloride Carbon Dioxide BUN Creatinine Glucose POC Glucose 152 H 117 H Phosphorus Magnesium Troponin T NT-Pro-B Natriuret Pep Triglycerides Cholesterol LDL Cholesterol Direct HDL Cholesterol 05/03/19 05/03/19 05/03/19 09:44 10:13 18:45 WBC RDW Plt Count Lymph % (Auto) Dane % (Auto) Lymph # Seg Neutrophils % Seg Neuts % (Manual) Lymphocytes % (Manual) Nucleated RBC % Seg Neutrophils # Man Lymphocytes # (Manual) PT INR APTT ABG pH 7.166 L* ABG pO2 ABG HCO3 ABG O2 Saturation 94.5 L ABG Base Excess -8.8 L ABG Hemoglobin 11.6 L Oxyhemoglobin 92.4 L Sodium Potassium 6.2 H* D Chloride 93.2 L Carbon Dioxide 13 L D BUN 93 H Creatinine 7.2 H D Glucose 138 H POC Glucose 128 H Phosphorus 12.90 H Magnesium 2.70 H Troponin T NT-Pro-B Natriuret Pep Triglycerides Cholesterol LDL Cholesterol Direct HDL Cholesterol 05/03/19 05/04/19 05/04/19 19:40 01:04 03:51 WBC 11.2 H RDW 16.6 H Plt Count Lymph % (Auto) Dane % (Auto) Lymph # Seg Neutrophils % Seg Neuts % (Manual) Lymphocytes % (Manual) Nucleated RBC % Seg Neutrophils # Man Lymphocytes # (Manual) PT INR APTT ABG pH ABG pO2 ABG HCO3 ABG O2 Saturation ABG Base Excess ABG Hemoglobin Oxyhemoglobin Sodium Potassium Chloride 92.7 L Carbon Dioxide BUN 26 H Creatinine 3.2 H D Glucose 129 H POC Glucose 134 H Phosphorus Magnesium Troponin T NT-Pro-B Natriuret Pep Triglycerides Cholesterol LDL Cholesterol Direct HDL Cholesterol 05/04/19 05/04/19 05/04/19 03:51 06:05 12:33 WBC RDW Plt Count Lymph % (Auto) Dane % (Auto) Lymph # Seg Neutrophils % Seg Neuts % (Manual) Lymphocytes % (Manual) Nucleated RBC % Seg Neutrophils # Man Lymphocytes # (Manual) PT INR APTT ABG pH ABG pO2 ABG HCO3 ABG O2 Saturation ABG Base Excess ABG Hemoglobin Oxyhemoglobin Sodium Potassium Chloride 92.5 L Carbon Dioxide 19 L BUN 39 H Creatinine 4.3 H Glucose 148 H POC Glucose 138 H 190 H Phosphorus Magnesium Troponin T NT-Pro-B Natriuret Pep Triglycerides Cholesterol LDL Cholesterol Direct HDL Cholesterol 05/04/19 05/04/19 05/04/19 18:25 23:57 Unknown WBC RDW Plt Count Lymph % (Auto) Dane % (Auto) Lymph # Seg Neutrophils % Seg Neuts % (Manual) Lymphocytes % (Manual) Nucleated RBC % Seg Neutrophils # Man Lymphocytes # (Manual) PT INR APTT ABG pH ABG pO2 ABG HCO3 ABG O2 Saturation ABG Base Excess -3.4 L ABG Hemoglobin Oxyhemoglobin 94.5 L Sodium Potassium Chloride Carbon Dioxide BUN Creatinine Glucose POC Glucose 190 H 119 H Phosphorus Magnesium Troponin T NT-Pro-B Natriuret Pep Triglycerides Cholesterol LDL Cholesterol Direct HDL Cholesterol 05/05/19 05/05/19 05/05/19 03:45 06:09 12:07 WBC RDW Plt Count Lymph % (Auto) Dane % (Auto) Lymph # Seg Neutrophils % Seg Neuts % (Manual) Lymphocytes % (Manual) Nucleated RBC % Seg Neutrophils # Man Lymphocytes # (Manual) PT INR APTT ABG pH 7.456 H ABG pO2 64.8 L ABG HCO3 ABG O2 Saturation 93.6 L ABG Base Excess ABG Hemoglobin Oxyhemoglobin 91.4 L Sodium Potassium Chloride Carbon Dioxide BUN Creatinine Glucose POC Glucose 173 H 260 H Phosphorus Magnesium Troponin T NT-Pro-B Natriuret Pep Triglycerides Cholesterol LDL Cholesterol Direct HDL Cholesterol 05/05/19 05/06/19 05/06/19 18:34 00:49 04:20 WBC 12.8 H RDW 16.9 H Plt Count Lymph % (Auto) Dane % (Auto) Lymph # Seg Neutrophils % Seg Neuts % (Manual) 93.0 H Lymphocytes % (Manual) 2.0 L Nucleated RBC % 1.0 H Seg Neutrophils # Man 11.9 H Lymphocytes # (Manual) 0.3 L PT INR APTT ABG pH ABG pO2 ABG HCO3 ABG O2 Saturation ABG Base Excess ABG Hemoglobin Oxyhemoglobin Sodium Potassium Chloride Carbon Dioxide BUN Creatinine Glucose POC Glucose 334 H 230 H Phosphorus Magnesium Troponin T NT-Pro-B Natriuret Pep Triglycerides Cholesterol LDL Cholesterol Direct HDL Cholesterol 05/06/19 05/06/19 05/06/19 04:20 04:20 05:39 WBC RDW Plt Count Lymph % (Auto) Dane % (Auto) Lymph # Seg Neutrophils % Seg Neuts % (Manual) Lymphocytes % (Manual) Nucleated RBC % Seg Neutrophils # Man Lymphocytes # (Manual) PT INR APTT ABG pH ABG pO2 62.9 L ABG HCO3 ABG O2 Saturation 92.5 L ABG Base Excess ABG Hemoglobin Oxyhemoglobin 90.5 L Sodium Potassium Chloride 95.1 L Carbon Dioxide BUN 40 H Creatinine 3.6 H Glucose 267 H POC Glucose Phosphorus Magnesium Troponin T NT-Pro-B Natriuret Pep Triglycerides 380 H Cholesterol LDL Cholesterol Direct HDL Cholesterol 05/06/19 05/06/19 05/06/19 06:08 11:15 12:42 WBC RDW Plt Count Lymph % (Auto) Dane % (Auto) Lymph # Seg Neutrophils % Seg Neuts % (Manual) Lymphocytes % (Manual) Nucleated RBC % Seg Neutrophils # Man Lymphocytes # (Manual) PT INR APTT ABG pH 7.344 L ABG pO2 56.8 L ABG HCO3 ABG O2 Saturation 85.5 L ABG Base Excess ABG Hemoglobin Oxyhemoglobin 83.8 L Sodium Potassium Chloride Carbon Dioxide BUN Creatinine Glucose POC Glucose 325 H 168 H Phosphorus Magnesium Troponin T NT-Pro-B Natriuret Pep Triglycerides Cholesterol LDL Cholesterol Direct HDL Cholesterol 05/06/19 05/07/19 05/07/19 17:30 00:33 05:25 WBC RDW Plt Count Lymph % (Auto) Dane % (Auto) Lymph # Seg Neutrophils % Seg Neuts % (Manual) Lymphocytes % (Manual) Nucleated RBC % Seg Neutrophils # Man Lymphocytes # (Manual) PT INR APTT ABG pH ABG pO2 51.8 L ABG HCO3 ABG O2 Saturation 83.6 L ABG Base Excess -3.3 L ABG Hemoglobin Oxyhemoglobin 81.7 L Sodium Potassium Chloride Carbon Dioxide BUN Creatinine Glucose POC Glucose 172 H 131 H Phosphorus Magnesium Troponin T NT-Pro-B Natriuret Pep Triglycerides Cholesterol LDL Cholesterol Direct HDL Cholesterol 05/07/19 05/07/19 05/07/19 06:31 13:21 15:15 WBC RDW Plt Count Lymph % (Auto) Dane % (Auto) Lymph # Seg Neutrophils % Seg Neuts % (Manual) Lymphocytes % (Manual) Nucleated RBC % Seg Neutrophils # Man Lymphocytes # (Manual) PT INR APTT ABG pH 7.317 L ABG pO2 64.0 L ABG HCO3 ABG O2 Saturation 89.7 L ABG Base Excess ABG Hemoglobin Oxyhemoglobin 87.8 L Sodium Potassium Chloride Carbon Dioxide BUN Creatinine Glucose POC Glucose 223 H 200 H Phosphorus Magnesium Troponin T NT-Pro-B Natriuret Pep Triglycerides Cholesterol LDL Cholesterol Direct HDL Cholesterol 05/07/19 05/07/19 05/07/19 18:40 19:35 21:39 WBC RDW Plt Count Lymph % (Auto) Dane % (Auto) Lymph # Seg Neutrophils % Seg Neuts % (Manual) Lymphocytes % (Manual) Nucleated RBC % Seg Neutrophils # Man Lymphocytes # (Manual) PT INR APTT ABG pH ABG pO2 ABG HCO3 ABG O2 Saturation ABG Base Excess ABG Hemoglobin Oxyhemoglobin Sodium Potassium Chloride Carbon Dioxide BUN Creatinine Glucose POC Glucose 142 H 138 H Phosphorus Magnesium 1.60 L Troponin T NT-Pro-B Natriuret Pep Triglycerides Cholesterol LDL Cholesterol Direct HDL Cholesterol 05/07/19 05/08/19 05/08/19 23:49 09:32 12:31 WBC RDW Plt Count Lymph % (Auto) Dane % (Auto) Lymph # Seg Neutrophils % Seg Neuts % (Manual) Lymphocytes % (Manual) Nucleated RBC % Seg Neutrophils # Man Lymphocytes # (Manual) PT INR APTT ABG pH ABG pO2 65.1 L ABG HCO3 18.7 L ABG O2 Saturation 91.9 L ABG Base Excess -5.8 L ABG Hemoglobin Oxyhemoglobin 90.1 L Sodium Potassium Chloride Carbon Dioxide BUN Creatinine Glucose POC Glucose 195 H 298 H Phosphorus Magnesium Troponin T NT-Pro-B Natriuret Pep Triglycerides Cholesterol LDL Cholesterol Direct HDL Cholesterol 05/08/19 05/08/19 05/08/19 13:54 14:44 14:44 WBC 15.3 H RDW 16.9 H Plt Count Lymph % (Auto) Dane % (Auto) Lymph # Seg Neutrophils % Seg Neuts % (Manual) Lymphocytes % (Manual) Nucleated RBC % Seg Neutrophils # Man Lymphocytes # (Manual) PT INR APTT ABG pH 7.327 L ABG pO2 67.2 L ABG HCO3 18.4 L ABG O2 Saturation 91.6 L ABG Base Excess -6.8 L ABG Hemoglobin Oxyhemoglobin 89.6 L Sodium Potassium Chloride 91.3 L Carbon Dioxide 17 L BUN 64 H Creatinine 5.0 H Glucose 337 H POC Glucose Phosphorus Magnesium Troponin T NT-Pro-B Natriuret Pep Triglycerides Cholesterol LDL Cholesterol Direct HDL Cholesterol 05/08/19 05/08/19 05/09/19 17:14 23:49 05:22 WBC RDW Plt Count Lymph % (Auto) Dane % (Auto) Lymph # Seg Neutrophils % Seg Neuts % (Manual) Lymphocytes % (Manual) Nucleated RBC % Seg Neutrophils # Man Lymphocytes # (Manual) PT INR APTT ABG pH ABG pO2 ABG HCO3 ABG O2 Saturation ABG Base Excess ABG Hemoglobin Oxyhemoglobin Sodium Potassium Chloride Carbon Dioxide BUN Creatinine Glucose POC Glucose 396 H 322 H 239 H Phosphorus Magnesium Troponin T NT-Pro-B Natriuret Pep Triglycerides Cholesterol LDL Cholesterol Direct HDL Cholesterol 05/09/19 05/09/19 05/09/19 07:14 07:14 11:39 WBC 13.6 H RDW 17.1 H Plt Count Lymph % (Auto) Dane % (Auto) Lymph # Seg Neutrophils % Seg Neuts % (Manual) 91.0 H Lymphocytes % (Manual) 2.0 L Nucleated RBC % 4.0 H Seg Neutrophils # Man 12.4 H Lymphocytes # (Manual) 0.3 L PT INR APTT ABG pH ABG pO2 ABG HCO3 ABG O2 Saturation ABG Base Excess ABG Hemoglobin Oxyhemoglobin Sodium 135 L Potassium 5.3 H Chloride 93.5 L Carbon Dioxide 14 L BUN 85 H Creatinine 6.1 H Glucose 242 H POC Glucose 273 H Phosphorus Magnesium Troponin T NT-Pro-B Natriuret Pep Triglycerides Cholesterol LDL Cholesterol Direct HDL Cholesterol Chest x-ray: report reviewed (Retrocardiac density in the left lower lobe infiltrate versus atelectasis)
--- NOTE | 2019-05-09 15:33 | Progress Note ---
Assessment and Plan Assessment and plan: 78 yo AA woman with a history of TX, Diastolic CHF, CAD S/P CABG, DM, Asthma, OA, Anxiety disorder, Chronic Respiratory Failure on 2-3 L Home oxygen due to end stage COPD and ESRD on HD(M,W,F) who presented to [facility] with SOB and wheezing for the last 2 days. No improvement with home breathing treatments. Patient was found tachypneic and respiratory distress upon their arrival to the house. Patient received albuterol 7.5 mg, started initiation of mag 1 g, Decadron 20 mg IV, and required CPAP and additional oxygen support during transport to the hospital. Patient states she has a history of one intubation. The last 3 days she has been short of breath with wheezing and cough productive of yellow sputum. She is compliant with dialysis and is due today. Patient has very little urine output daily. Patient did complain of chest pain prior to arrival which has improved with CPAP support. Patient very SOB and wheezing during my exam.Patient has not been exposed to anyone with fever and Dry cough.No recent travel.No exposure to foreign traveled patients. * Still on full ventilaotry support. Not tolerating wean becomes tachypenic, fentanyl for pain control added, continue steroids * 05/06: Discussed with boilers and pressure vessels inspector plan is for extubation today. Continue management. * 05/07: Discussed with family and boilers and pressure vessels inspector, will proceed with re-intubation and possible plan for Trach and PEG. * Daughter informs me that the patient is very anxious and believes that this hampers extubation. Stated that she had discussed with boilers and pressure vessels inspector to reintubate the patient if she failed extubation. She does understand the process of weaning from ventilation. * 05/08:" Hyperkalemia, Nephrology managing * Pulmonary adjusting vent. No changes clinically. Discussed with Surgery, will plan for Trach and Peg in am. Acute on chronic hypoxic respiratory failure Now placed on Mechanical ventilation Patient chronically on home oxygen Continue aggressive neb treatments Steroids being tapered Pulmonary consult note reviewed Continue management per Dr. Buck's recommendations COPD exacerbation: Continue neb treatments, antibiotics, steroids and oxygen supplement Anxiety disorder Continue Klonopin Hyperglycemia Continue to monitor likely induced by steroid use. end-stage renal disease: On hemodialysis Friday and Friday Nephrology note reviewed Acute metabolic acidosis Chronic diastolic heart failure, Hypertension, Anemia of chronic kidney disease The high probability of a clinically significant, sudden or life threatening deterioration of the [pulmonary] system(s) required my full and direct attention, intervention and personal management. The aggregate critical care time was [35] minutes. This time is in addition to time spent performing reported procedures but includes the following: [x] Data Review and interpretation [x] Patient assessment and monitoring of vital signs [x] Documentation [x] Medication orders and management History Interval history: Patient seen and examined reintubated yesterday, still with some increased ventilatory rate, adjusting sedation. Hospitalist Physical - Physical exam Narrative exam: VITAL SIGNS: Reviewed. GENERAL: The patient appears chronically ill, on mechanical ventilation vital signs as documented. HEAD: No signs of head trauma. EYES: Pupils are equal. EARS: Hearing grossly intact. MOUTH: ET tube in place. NECK: No adenopathy, no JVD. CHEST: dimished, shallow. tachypenia No wheezes, rales, or rhonchi. CARDIAC: tachycardia, S1 and S2, without murmurs, gallops, or rubs. VASCULAR: No Edema. Peripheral pulses normal and equal in all extremities. ABDOMEN: Soft, non tender and non distended. No rebound or guarding, and no masses palpated. Bowel Sounds normal. MUSCULOSKELETAL: Restful. Moves all extremities. NEUROLOGIC EXAM: Disoriented, currently on full mechanical support PSYCHIATRIC: Unable to assess SKIN: detail exam as documented in skin assessment - Constitutional Vitals: Temp Pulse Resp BP Pulse Ox 98.3 F 112 H 25 H 222/130 94 05/09/19 11:52 05/09/19 12:06 05/09/19 12:06 05/09/19 12:06 05/09/19 12:06 General appearance: Present: mild distress, well-nourished ROB score - Rob Score Age > 65: (1) Yes Aspirin use within the Past 7 Days: (1) Yes 3 or more CAD Risk Factors: (1) Yes 2 or more Angina events in past 24 hrs: (0) No Known CAD with more than 50% Stenosis: (0) No Elevated Cardiac Markers: (0) No ST Deviation Greater than 0.5mm: (0) No ROB Score: 3 Results - Labs CBC & Chem 7: 05/09/19 07:14 05/09/19 07:14 Labs: Laboratory Last Values WBC 13.6 K/mm3 (4.5-11.0) H 03/22/20 07:14 RBC 4.38 M/mm3 (3.65-5.03) 05/09/19 07:14 Hgb 12.6 gm/dl (10.1-14.3) 05/09/19 07:14 Hct 40.2 % (30.3-42.9) 05/09/19 07:14 MCV 92 fl (79-97) 05/09/19 07:14 MCH 29 pg (28-32) 05/09/19 07:14 MCHC 32 % (30-34) 05/09/19 07:14 RDW 17.1 % (13.2-15.2) H 05/09/19 07:14 Plt Count 147 K/mm3 (140-440) 05/09/19 07:14 Lymph % (Auto) 10.9 % (13.4-35.0) L 04/30/19 11:32 [place] % (Auto) 7.4 % (0.0-7.3) H 04/30/19 11:32 Eos % (Auto) 0.4 % (0.0-4.3) 04/30/19 11:32 Baso % (Auto) 0.7 % (0.0-1.8) 04/30/19 11:32 Lymph # 0.8 K/mm3 (1.2-5.4) L 04/30/19 11:32 [place] # 0.5 K/mm3 (0.0-0.8) 04/30/19 11:32 Eos # 0.0 K/mm3 (0.0-0.4) 04/30/19 11:32 Baso # 0.1 K/mm3 (0.0-0.1) 04/30/19 11:32 Add Manual Diff Complete 05/09/19 07:14 Total Counted 100 05/09/19 07:14 Seg Neutrophils % Abrasive [place]yer 05/09/19 07:14 Seg Neuts % (Manual) 91.0 % (40.0-70.0) H 05/09/19 07:14 Band Neutrophils % 5.0 % 05/09/19 07:14 Lymphocytes % (Manual) 2.0 % (13.4-35.0) L 05/09/19 07:14 Reactive Lymphs % (Man) 0 % 05/09/19 07:14 Monocytes % (Manual) 1.0 % (0.0-7.3) 05/09/19 07:14 Eosinophils % (Manual) 0 % (0.0-4.3) 05/09/19 07:14 Basophils % (Manual) 0 % (0.0-1.8) 05/09/19 07:14 Metamyelocytes % 1.0 % 05/09/19 07:14 Myelocytes % 0 % 05/09/19 07:14 Promyelocytes % 0 % 05/09/19 07:14 Blast Cells % 0 % 05/09/19 07:14 Nucleated RBC % 4.0 % (0.0-0.9) H 05/09/19 07:14 Seg Neutrophils # 6.0 K/mm3 (1.8-7.7) 04/30/19 11:32 Seg Neutrophils # Man 12.4 K/mm3 (1.8-7.7) H 05/09/19 07:14 Band Neutrophils # 0.7 K/mm3 05/09/19 07:14 Lymphocytes # (Manual) 0.3 K/mm3 (1.2-5.4) L 05/09/19 07:14 Abs React Lymphs (Man) 0.0 K/mm3 05/09/19 07:14 Monocytes # (Manual) 0.1 K/mm3 (0.0-0.8) 05/09/19 07:14 Eosinophils # (Manual) 0.0 K/mm3 (0.0-0.4) 05/09/19 07:14 Basophils # (Manual) 0.0 K/mm3 (0.0-0.1) 05/09/19 07:14 Metamyelocytes # 0.1 K/mm3 05/09/19 07:14 Myelocytes # 0.0 K/mm3 05/09/19 07:14 Promyelocytes # 0.0 K/mm3 05/09/19 07:14 Blast Cells # 0.0 K/mm3 05/09/19 07:14 WBC Morphology Not Reportable 05/09/19 07:14 Hypersegmented Neuts Not Reportable 05/09/19 07:14 Hyposegmented Neuts Not Reportable 05/09/19 07:14 Hypogranular Neuts Not Reportable 05/09/19 07:14 Smudge Cells Not Reportable 05/09/19 07:14 Toxic Granulation Not Reportable 05/09/19 07:14 Toxic Vacuolation Not Reportable 05/09/19 07:14 Dohle Bodies Not Reportable 05/09/19 07:14 Pelger-Huet Anomaly Not Reportable 05/09/19 07:14 Ariel Rods Not Reportable 05/09/19 07:14 Platelet Estimate Consistent w auto 05/09/19 07:14 Clumped Platelets Not Reportable 05/09/19 07:14 Plt Clumps, EDTA Not Reportable 05/09/19 07:14 Large Platelets Not Reportable 05/09/19 07:14 Giant Platelets Not Reportable 05/09/19 07:14 Platelet Satelliting Not Reportable 05/09/19 07:14 Plt Morphology Comment Not Reportable 05/09/19 07:14 RBC Morphology Not Reportable 05/09/19 07:14 Dimorphic RBCs Not Reportable 05/09/19 07:14 Polychromasia Not Reportable 05/09/19 07:14 Hypochromasia Not Reportable 05/09/19 07:14 Poikilocytosis Not Reportable 05/09/19 07:14 Anisocytosis Not Reportable 05/09/19 07:14 Microcytosis Not Reportable 05/09/19 07:14 Macrocytosis Not Reportable 05/09/19 07:14 Spherocytes Not Reportable 05/09/19 07:14 Pappenheimer Bodies Not Reportable 05/09/19 07:14 Sickle Cells Not Reportable 05/09/19 07:14 Target Cells Few 05/09/19 07:14 Tear Drop Cells Few 05/09/19 07:14 Ovalocytes Not Reportable 05/09/19 07:14 Helmet Cells Not Reportable 05/09/19 07:14 Edwards-Honor Bodies Not Reportable 05/09/19 07:14 [place] Rings Not Reportable 05/09/19 07:14 Channing Cells Not Reportable 05/09/19 07:14 Bite Cells Not Reportable 05/09/19 07:14 Crenated Cell Not Reportable 05/09/19 07:14 Elliptocytes Few 05/09/19 07:14 Acanthocytes (Spur) Not Reportable 05/09/19 07:14 Rouleaux Not Reportable 05/09/19 07:14 Hemoglobin C Crystals Not Reportable 05/09/19 07:14 Schistocytes Not Reportable 05/09/19 07:14 Malaria parasites Not Reportable 05/09/19 07:14 [place] Bodies Not Reportable 05/09/19 07:14 Hem Pathologist Commnt No 05/09/19 07:14 PT 14.3 Sec. (12.2-14.9) 04/30/19 15:23 INR 1.10 (0.87-1.13) 04/30/19 15:23 APTT 37.2 Sec. (24.2-36.6) H 04/30/19 15:23 ABG pH 7.327 pH Units (7.350-7.450) L 05/08/19 13:54 ABG pCO2 36.0 mm Hg 05/08/19 13:54 ABG pO2 67.2 mm Hg (80.0-90.0) L 05/08/19 13:54 ABG HCO3 18.4 mmol/L (20.0-26.0) L 05/08/19 13:54 ABG O2 Saturation 91.6 % (95.0-99.0) L 05/08/19 13:54 ABG O2 Content 16.8 (0.0-44) 05/08/19 13:54 ABG Base Excess -6.8 mmol/L (-2.0-3.0) L 05/08/19 13:54 ABG Hemoglobin 13.3 gm/dl (12.0-16.0) 05/08/19 13:54 ABG Carboxyhemoglobin 1.4 % (0.0-5.0) 05/08/19 13:54 ABG Methemoglobin 0.7 % (0.0-1.5) 05/08/19 13:54 Oxyhemoglobin 89.6 % (95.0-99.0) L 05/08/19 13:54 FiO2 35 % 05/08/19 13:54 Sodium 135 mmol/L (137-145) L 05/09/19 07:14 Potassium 5.3 mmol/L (3.6-5.0) H 05/09/19 07:14 Chloride 93.5 mmol/L (98-107) L 05/09/19 07:14 Carbon Dioxide 14 mmol/L (22-30) L 05/09/19 07:14 Anion Gap 33 mmol/L 05/09/19 07:14 BUN 85 mg/dL (7-17) H 05/09/19 07:14 Creatinine 6.1 mg/dL (0.7-1.2) H 05/09/19 07:14 Estimated GFR 8 ml/min 05/09/19 07:14 BUN/Creatinine Ratio 14 % 05/09/19 07:14 Glucose 242 mg/dL (65-100) H 05/09/19 07:14 POC Glucose 273 (70-105) H 05/09/19 11:39 Hemoglobin A1c 5.6 % (4-6) 04/30/19 11:32 Calcium 8.5 mg/dL (8.4-10.2) 05/09/19 07:14 Phosphorus 12.90 mg/dL (2.5-4.5) H 05/03/19 09:44 Magnesium 1.60 mg/dL (1.7-2.3) L 05/07/19 19:35 Total Bilirubin 0.40 mg/dL (0.1-1.2) 05/01/19 12:43 AST 39 units/L (5-40) 05/01/19 12:43 ALT 23 units/L (7-56) 05/01/19 12:43 Alkaline Phosphatase 102 units/L (35-129) 05/01/19 12:43 Total Creatine Kinase Cancelled 04/30/19 14:20 CK-MB (CK-2) Cancelled 04/30/19 14:20 CK-MB (CK-2) Rel Index Cancelled 04/30/19 14:20 Troponin T 0.117 ng/mL (0.00-0.029) H* 04/30/19 14:20 NT-Pro-B Natriuret Pep 99418 pg/mL (0-900) H 04/30/19 14:20 Total Protein 6.6 g/dL (6.3-8.2) 05/01/19 12:43 Albumin 4.0 g/dL (3.9-5) 05/01/19 12:43 Albumin/Globulin Ratio 1.5 % 05/01/19 12:43 Triglycerides 380 mg/dL (2-149) H 05/06/19 04:20 Cholesterol 303 mg/dL (50-199) H 04/30/19 14:20 LDL Cholesterol Direct 190 mg/dL (50-130) H 04/30/19 14:20 HDL Cholesterol 105 mg/dL (40-59) H 04/30/19 14:20 Cholesterol/HDL Ratio 2.88 % 04/30/19 14:20 Hepatitis A IgM Ab Non-reactive (NonReactive) 04/30/19 14:20 Hep Bs Antigen Non-reactive (Negative) 04/30/19 14:20 Hep B Core IgM Ab Non-reactive (NonReactive) 04/30/19 14:20 Hepatitis C Antibody Non-reactive (NonReactive) 04/30/19 14:20 Microbiology: Microbiology 05/04/19 Unknown Tracheal Aspirate Sputum Culture - Final Neisseria Mucosa [place]/IV: Voiding Method Incontinent IV Catheter Type [Left Mid-line Subclavian] IV Catheter Type [Right Upper INT / Saline Lock arm] IV Catheter Type [Right Hand] INT / Saline Lock IV Catheter Type [Left Forearm INT / Saline Lock ] IV Catheter Type [Right VAS Cath Internal Jugular] Active Medications - Current Medications Current Medications: Generic Name Dose Route Start Last Admin Trade Name Freq PRN Reason Stop Dose Admin Acetaminophen 650 mg 04/30/19 17:44 05/05/19 15:22 Tylenol PO 650 mg Q4H PRN Administration Pain MILD(1-3)/Fever >100.5/HERRMANN Albuterol 2.5 mg 04/30/19 18:32 05/02/19 04:49 Proventil IH 2.5 mg Q3H PRN Administration Shortness Of Breath Albuterol/Ipratropium 1 ampul 04/30/19 20:00 05/09/19 12:06 Duoneb *Not For Prn Use* IH 1 ampul QIDRT KVNG Administration Allopurinol 100 mg 04/30/19 18:00 05/09/19 11:20 Zyloprim PO 100 mg QDAY KVNG Administration Lipase/Protease/Amylase 1 each 05/04/19 14:58 Denisha Gould 10,500 Unit FEEDTUBE PRN PRN For Clogged Feeding Tube Arformoterol Tartrate 15 mcg 05/01/19 08:00 05/09/19 07:44 Brovana Nebu IH 15 mcg Q12HRT KVNG Administration Aspirin 81 mg 04/30/19 18:00 05/09/19 10:43 Halfprin Ec PO 81 mg QDAY KVNG Administration Budesonide 0.5 mg 05/03/19 11:00 05/09/19 07:44 Pulmicort IH 0.5 mg Q12HRT KVNG Administration Buspirone HCl 15 mg 05/04/19 10:00 05/09/19 10:38 Buspar PO 15 mg BID KVNG Administration Famotidine 10 mg 04/30/19 22:00 05/09/19 10:37 Pepcid PO 10 mg BID KVNG Administration Fentanyl 50 mcg 05/06/19 08:00 05/09/19 13:10 Sublimaze IV 50 mcg Q2H KVNG Administration Heparin Sodium (Porcine) 5,000 unit 05/04/19 22:00 05/09/19 10:37 Heparin SUB-Q 5,000 unit Q12HR KVNG Administration Hydralazine HCl 5 mg 05/01/19 22:47 05/06/19 04:57 Apresoline IV 5 mg Q6HR PRN Administration SBP > 160 AND/OR DBP > 100 Hydrophilic Ointment 1 applic 05/04/19 09:42 Vaseline Lip Therapy TP Q2HR PRN Dry Lips Sodium Chloride 100 mls @ 999 mls/hr 04/30/19 13:29 Nacl 0.9% IV ALBINO PRN Hypotension Levofloxacin/Dextrose 500 mg in 100 mls @ 100 mls/hr 05/02/19 19:00 05/09/19 08:07 Levaquin 500mg/100ml IV 05/10/19 19:59 Not Given Q48H KVNG Propofol 1,000 mg in 100 mls @ 1.482 mls/hr 05/04/19 09:00 05/06/19 07:50 Diprivan 10 Mg/Ml IV 0 mcg/kg/min TITR KVNG 0 mls/hr Titration Protocol 5 MCG/KG/MIN Norepinephrine 4 mg in 250 mls @ 7.5 mls/hr 05/08/19 09:00 Levophed Drip 4 Mg/Ns 250 Ml IV TITR KVNG Protocol 2 MCG/MIN Insulin Human Lispro 0 unit 05/05/19 18:00 05/09/19 13:33 Humalog SUB-Q 6 unit Q6HR KVNG Administration Protocol Isosorbide Dinitrate 10 mg 05/04/19 14:00 05/09/19 07:51 Isordil Titradose PO Not Given Q8HR KVNG Lorazepam 1 mg 05/02/19 11:08 05/07/19 17:12 Ativan IV 1 mg Q4H PRN Administration Anxiety Methylprednisolone Sodium Succinate 60 mg 05/04/19 09:00 05/09/19 11:18 Solu-Medrol IV 60 mg Q6H KVNG Administration Metoprolol Tartrate 50 mg 04/30/19 22:00 05/09/19 10:43 Metoprolol PO 50 mg BID KVNG Administration Montelukast Sodium 10 mg 04/30/19 19:00 05/09/19 07:55 Singulair PO Not Given QPM KVNG Multi-Ingred Cream/Lotion/Oil/Oint 1 applic 05/04/19 09:42 Artificial Tears Ophth Oint OU Q4HR PRN Dry Eye(s) Pravastatin Sodium 40 mg 04/30/19 22:00 05/08/19 23:40 Pravachol PO 40 mg QHS KVNG Administration Simple Syrup 15 ml 05/04/19 14:58 Simple Syrup FEEDTUBE PRN PRN Hypoglycemia Simple Syrup 30 ml 05/04/19 14:58 Simple Syrup FEEDTUBE PRN PRN Hypoglycemia Sodium Bicarbonate 650 mg 04/30/19 22:00 05/09/19 10:43 Sodium Bicarbonate PO 650 mg BID KVNG Administration Sodium Bicarbonate 325 mg 05/04/19 14:58 Sodium Bicarbonate FEEDTUBE PRN PRN For Clogged Feeding Tube Sodium Chloride 10 ml 04/30/19 22:00 05/09/19 11:19 Sodium Chloride Flush Syringe 10 Ml IV 10 ml BID KVNG Administration Sodium Chloride 10 ml 04/30/19 17:44 05/01/19 03:55 Sodium Chloride Flush Syringe 10 Ml IV 10 ml PRN PRN Administration LINE FLUSH Nutrition/Malnutrition Assess - Dietary Evaluation Nutrition/Malnutrition Findings: Nutrition Notes Start: 05/04/19 11:09 Freq: Status: Active Protocol: Document 05/06/19 08:23 LP (Rec: 05/06/19 08:27 LP [id number]) Nutrition Notes Initial or Follow up Reassessment Current Diagnosis CKD (stage V CKD),COPD, Coronary Artery Disease, Diabetes,Heart Failure, Respiratory Failure Current Diet Nepro at 30ml/hr Labs/Tests Reviewed Pertinent Medications Reviewed Height 5 ft Weight 50.6 kg [place] Body Weight (kg) 45.45 BMI 21.7 Weight Status Appropriate Subjective/Other Information Pt tolerating TF at goal rate. Pt remains on vent. Burn Absent Trauma Absent GI Symptoms None Difficulty In Swallowing Current % PO Negligible Minimum of two criteria Yes Interpretation of Weight Loss (severe) >5% in 1 month Fluid Accumulation Mild (non-severe) Reduced Senior Qa Tester Strength Measurably Reduced (severe) #2 Nutrition Diagnosis Inadequate oral intake Diagnosis Progress(for reassessment Continues documentation) #1 Nutrition Diagnosis Malnutrition Diagnosis Progress(for reassessment Continues documentation) Is patient on ventilator? Yes Is Patient Ambulatory and/or Out of Bed No REE-([facility]-confined to bed) 7640.652 Calculation Used for Recommendations [facility] Additional Notes Protein: 59-98g (1.2-2g/kg) Fluid: per Nutrition Intervention Change Diet Order: TF Nutrition Support: Nepro 1.8 at 30 ml/hr Flush 130 ml q4h Kcal 1,296 Protein (gm) 58 Fluid (mL) 523 Goal #1 Meet at least 80% of kcal and protein needs via TF Anticipated Discharge Needs: Unable to determine at this time Follow-Up By: 05/10/19 Additional Comments Follow for TF tolerance
--- NOTE | 2019-05-09 15:41 | Progress Note ---
Assessment and Plan Impression: * End stage renal disease * Acute on chronic hypoxic respiratory failure --wears 2-3L [place] oxygen at home * COPD exacerbation * Chronic diastolic heart failure * Hypertension by history * hypotensive * Anemia secondary to ESRD * Secondary hyperparathyroidism Plan: * Continue MWF schedule. * stopped bp meds * kayexalate time one now * plans for trach and peg noted in am * UF as tolerated * Vent management per pulmonary medicine * Dose medications for renal function * Epogen TIW prn * Nutrition per primary team Subjective Date of service: 05/09/19 Principal diagnosis: Acute resp failure,COPd exacerbation Interval history: resting in bed Objective - Exam Narrative Exam: General appearance: intubated, frail EENT: other (ETT in place) Respiratory: Present: Wheezes Cardiology: regular, S1S2 Gastrointestinal: hypoactive bowel sounds Integumentary: no rash, warm and dry Musculoskeletal: other (no edema) - Vital Signs Vital signs: Vital Signs - 12hr 05/09/19 05/09/19 05/09/19 04:00 04:50 05:00 Temperature 98.6 F Pulse Rate 106 H 117 H 103 H Pulse Rate [ Anterior Bilateral] Respiratory 24 24 Rate Respiratory Rate [Anterior Bilateral] Blood Pressure 134/89 91/54 81/54 O2 Sat by Pulse 93 94 93 Oximetry 05/09/19 05/09/19 05/09/19 06:00 06:27 07:00 Temperature Pulse Rate 112 H 109 H 110 H Pulse Rate [ Anterior Bilateral] Respiratory 25 H 24 Rate Respiratory Rate [Anterior Bilateral] Blood Pressure 94/49 94/49 94/49 O2 Sat by Pulse 93 95 Oximetry 05/09/19 05/09/19 05/09/19 07:44 08:00 09:00 Temperature 98.2 F Pulse Rate 122 H 110 H 123 H Pulse Rate [ 118 H Anterior Bilateral] Respiratory 29 H 23 Rate Respiratory 28 H Rate [Anterior Bilateral] Blood Pressure 171/98 171/98 143/98 O2 Sat by Pulse 95 92 91 Oximetry 05/09/19 05/09/19 05/09/19 10:01 10:43 11:01 Temperature Pulse Rate 120 H 125 H 110 H Pulse Rate [ Anterior Bilateral] Respiratory 25 H 25 H Rate Respiratory Rate [Anterior Bilateral] Blood Pressure 164/95 164/95 121/53 O2 Sat by Pulse 90 94 Oximetry 05/09/19 05/09/19 11:52 12:06 Temperature 98.3 F Pulse Rate 114 H Pulse Rate [ 112 H Anterior Bilateral] Respiratory Rate Respiratory 25 H Rate [Anterior Bilateral] Blood Pressure 222/130 O2 Sat by Pulse 94 Oximetry - Lab 05/09/19 07:14 05/09/19 07:14 Most recent lab results ABG pH 7.327 pH Units (7.350-7.450) L 05/08/19 13:54 ABG pCO2 36.0 mm Hg 05/08/19 13:54 ABG pO2 67.2 mm Hg (80.0-90.0) L 05/08/19 13:54 ABG HCO3 18.4 mmol/L (20.0-26.0) L 05/08/19 13:54 ABG O2 Saturation 91.6 % (95.0-99.0) L 05/08/19 13:54 Calcium 8.5 mg/dL (8.4-10.2) 05/09/19 07:14 Phosphorus 12.90 mg/dL (2.5-4.5) H 05/03/19 09:44 Magnesium 1.60 mg/dL (1.7-2.3) L 05/07/19 19:35 Medications & Allergies - Medications Allergies/Adverse Reactions: Allergies latex Allergy (Verified 02/05/19 13:51) Hives milk Allergy (Verified 02/05/19 13:51) Rash Home Medications: Home Medications Medication Instructions Recorded Confirmed Last Taken Type Metoprolol [Lopressor TAB] 50 mg PO BID #60 tablet 01/27/18 05/03/19 04/11/19 Rx Montelukast [Singulair] 10 mg PO QPM #30 tablet 01/27/18 05/03/19 04/11/19 Rx Pravastatin [Pravachol] 40 mg PO QHS #30 tablet 01/27/18 05/03/19 04/11/19 Rx allopurinoL [Zyloprim] 100 mg PO QDAY #30 tablet 01/27/18 05/03/19 04/11/19 Rx Famotidine [Pepcid] 20 mg PO BID 06/17/18 05/03/19 04/11/19 History Fluticasone/Vilanterol [Breo 1 each IH BID #1 blst.w.dev 1105/03/19 04/11/19 Rx Ellipta 200-25 Mcg INH] Tiotropium Rosenberg [Spiriva 4 gm IH DAILY #1 mist.inhal 12/31/18 05/03/19 04/11/19 Rx Respimat] Aspirin EC [Halfprin EC] 81 mg PO QDAY #30 tablet. 02/18/19 05/03/19 04/11/19 Rx ISOSORBIDE MONOnitrate [Imdur ER] 30 mg PO QDAY #30 tablet 02/18/19 05/03/19 Unknown Rx glipiZIDE [Glucotrol] 5 mg PO QDAY #30 tablet 02/18/19 05/03/19 Unknown Rx ALBUTEROL NEB's [Proventil 0.083% 2.5 mg IH Q4HRT PRN #30 nebu 04/15/19 05/03/19 Unknown Rx NEBS] Furosemide [Lasix] 20 mg PO QDAY #30 tablet 04/15/19 05/03/19 Unknown Rx Ipratropium/Albuterol Sulfate 2 puff IH BID #1 unit 04/15/19 05/03/19 Unknown Rx [Combivent Respimat] Olanzapine/Fluoxetine HCl [Symbyax 1 each PO QHS #30 capsule 04/15/19 05/03/19 Unknown Rx 3-25 mg] Sodium Bicarbonate 650 mg PO BID #60 tablet 04/15/19 05/03/19 Unknown Rx amLODIPine 10 mg PO DAILY #30 tablet 04/15/19 05/03/19 Unknown Rx cefUROXime [Ceftin] 250 mg PO Q12H #14 tablet 04/15/19 05/03/19 Unknown Rx predniSONE [Deltasone] 1 tab PO QDAY #91 tab 04/15/19 05/03/19 Unknown Rx traMADoL [Ultram 50 MG tab] 50 mg PO Q8H PRN #15 tab 04/15/19 05/03/19 04/11/19 Rx Active Medications: Generic Name Dose Route Start Last Admin Trade Name Freq PRN Reason Stop Dose Admin Acetaminophen 650 mg 04/30/19 17:44 05/05/19 15:22 Tylenol PO 650 mg Q4H PRN Administration Pain MILD(1-3)/Fever >100.5/HERRMANN Albuterol 2.5 mg 04/30/19 18:32 05/02/19 04:49 Proventil IH 2.5 mg Q3H PRN Administration Shortness Of Breath Albuterol/Ipratropium 1 ampul 04/30/19 20:00 05/09/19 12:06 Duoneb *Not For Prn Use* IH 1 ampul QIDRT KVNG Administration Allopurinol 100 mg 04/30/19 18:00 05/09/19 11:20 Zyloprim PO 100 mg QDAY KVNG Administration Lipase/Protease/Amylase 1 each 05/04/19 14:58 Pancreazivania Gould 10,500 Unit FEEDTUBE PRN PRN For Clogged Feeding Tube Arformoterol Tartrate 15 mcg 05/01/19 08:00 05/09/19 07:44 Brovana Nebu IH 15 mcg Q12HRT KVNG Administration Aspirin 81 mg 04/30/19 18:00 05/09/19 10:43 Halfprin Ec PO 81 mg QDAY KVNG Administration Budesonide 0.5 mg 05/03/19 11:00 05/09/19 07:44 Pulmicort IH 0.5 mg Q12HRT KVNG Administration Buspirone HCl 15 mg 05/04/19 10:00 05/09/19 10:38 Buspar PO 15 mg BID KVNG Administration Famotidine 10 mg 04/30/19 22:00 05/09/19 10:37 Pepcid PO 10 mg BID KVNG Administration Fentanyl 50 mcg 05/06/19 08:00 05/09/19 13:10 Sublimaze IV 50 mcg Q2H KVNG Administration Heparin Sodium (Porcine) 5,000 unit 05/04/19 22:00 05/09/19 10:37 Heparin SUB-Q 5,000 unit Q12HR KVNG Administration Hydralazine HCl 5 mg 05/01/19 22:47 05/06/19 04:57 Apresoline IV 5 mg Q6HR PRN Administration SBP > 160 AND/OR DBP > 100 Hydrophilic Ointment 1 applic 05/04/19 09:42 Vaseline Lip Therapy TP Q2HR PRN Dry Lips Sodium Chloride 100 mls @ 999 mls/hr 04/30/19 13:29 Nacl 0.9% IV ALBINO PRN Hypotension Levofloxacin/Dextrose 500 mg in 100 mls @ 100 mls/hr 05/02/19 19:00 05/09/19 08:07 Levaquin 500mg/100ml IV 05/10/19 19:59 Not Given Q48H KVNG Propofol 1,000 mg in 100 mls @ 1.482 mls/hr 05/04/19 09:00 05/06/19 07:50 Diprivan 10 Mg/Ml IV 0 mcg/kg/min TITR KVNG 0 mls/hr Titration Protocol 5 MCG/KG/MIN Norepinephrine 4 mg in 250 mls @ 7.5 mls/hr 05/08/19 09:00 Levophed Drip 4 Mg/Ns 250 Ml IV TITR KVNG Protocol 2 MCG/MIN Insulin Human Lispro 0 unit 05/05/19 18:00 05/09/19 13:33 Humalog SUB-Q 6 unit Q6HR KVNG Administration Protocol Isosorbide Dinitrate 10 mg 05/04/19 14:00 05/09/19 07:51 Isordil Titradose PO Not Given Q8HR [facility] Lorazepam 1 mg 05/02/19 11:08 05/07/19 17:12 Ativan IV 1 mg Q4H PRN Administration Anxiety Methylprednisolone Sodium Succinate 60 mg 05/04/19 09:00 05/09/19 11:18 Solu-Medrol IV 60 mg Q6H [facility] Administration Metoprolol Tartrate 50 mg 04/30/19 22:00 05/09/19 10:43 Metoprolol PO 50 mg BID [facility] Administration Montelukast Sodium 10 mg 04/30/19 19:00 05/09/19 07:55 Singulair PO Not Given QPM [facility] Multi-Ingred Cream/Lotion/Oil/Oint 1 applic 05/04/19 09:42 Artificial Tears Ophth Oint OU Q4HR PRN Dry Eye(s) Pravastatin Sodium 40 mg 04/30/19 22:00 05/08/19 23:40 Pravachol PO 40 mg QHS [facility] Administration Simple Syrup 15 ml 05/04/19 14:58 Simple Syrup FEEDTUBE PRN PRN Hypoglycemia Simple Syrup 30 ml 05/04/19 14:58 Simple Syrup FEEDTUBE PRN PRN Hypoglycemia Sodium Bicarbonate 650 mg 04/30/19 22:00 05/09/19 10:43 Sodium Bicarbonate PO 650 mg BID KVNG Administration Sodium Bicarbonate 325 mg 05/04/19 14:58 Sodium Bicarbonate FEEDTUBE PRN PRN For Clogged Feeding Tube Sodium Chloride 10 ml 04/30/19 22:00 05/09/19 11:19 Sodium Chloride Flush Syringe 10 Ml IV 10 ml BID KVNG Administration Sodium Chloride 10 ml 04/30/19 17:44 05/01/19 03:55 Sodium Chloride Flush Syringe 10 Ml IV 10 ml PRN PRN Administration LINE FLUSH
[2019-05-09] MEDS ORDERED: SODIUM POLYSTYRENE 15 GM/60 ML ORAL LIQD PO ONE (16:00)
[2019-05-09] MEDS: PRAVASTATIN 40 MG TAB PO SCH (22:12)
[2019-05-09] MEDS: LORazepam 2 MG/ML VIAL IV PRN (23:17)
[2019-05-10] MEDS: NORepinephrine/NS 4 MG-250 ML 4 MG/250 ML BAG IV SCH (00:13)
[2019-05-10] MEDS: INSULIN LISPRO 100 UNIT/ML SUB-Q SCH ×4 (00:14→17:43)
[2019-05-10] MEDS ORDERED: METOPROLOL TARTRATE 5 MG/5 ML INJ IV ONE (00:15)
[2019-05-10] MEDS: fentaNYL 100 MCG/2 ML INJ IV SCH ×11 (02:23→22:13)
[2019-05-10] MEDS: methylPREDNISolone Sod Succinate 125 MG/2 ML INJ IV SCH ×4 (03:25→22:15)
--- NOTE | 2019-05-10 04:03 | XRay Report ---
CHEST 1 VIEW INDICATION / CLINICAL INFORMATION: follow up respiratory failure. COMPARISON: 05/09/2019 FINDINGS: SUPPORT DEVICES: Endotracheal tube, nasogastric tube, right central venous line HEART / MEDIASTINUM: No significant abnormality. LUNGS / PLEURA: Left basilar airspace disease No pneumothorax. ADDITIONAL FINDINGS: No significant additional findings. IMPRESSION: Left basilar airspace disease unchanged from yesterday. The right lung remains clear Signer Name: Hubert Savage MD FACR Signed: 05/10/2019 3:59 AM Workstation Name: [id number]
[2019-05-10 05:45] LABS: Hemoglobin 12.5 gm/dl (10.1-14.3); Mean Corpuscular HGB Conc 32 % (30-34); Mean Corpuscular Volume 91 fl (79-97); Platelet Count 180 K/mm3 (140-440); Red Blood Count 4.29 M/mm3 (3.65-5.03); Red Cell Distribution Width 16.8 % (13.2-15.2)
[2019-05-10] MEDS: ISOSORBIDE DINITRATE 10 MG TAB PO SCH (05:56)
[2019-05-10 06:23] LABS: Calcium 8.7 mg/dL (8.4-10.2)
[2019-05-10 08:44] LABS: Band Neutrophils # (Manual) 0.2 K/mm3; Basophils % (Manual) 0 % (0.0-1.8); Eosinophils % (Manual) 0 % (0.0-4.3); Total Cells Counted 100
[2019-05-10 08:45] LABS: Anisocytosis 1+; Poikilocytosis 1+; Tear Drop Cells Few
[2019-05-10 08:46] LABS: Platelet Estimate Consistent w Auto
[2019-05-10] MEDS: IPRATROPIUM/ALBUTEROL SULFATE 3 ML AMPUL.NEB IH SCH ×4 (09:28→21:50)
[2019-05-10] MEDS: BUDESONIDE 0.5 MG/2 ML NEBU IH SCH ×2 (09:28→21:50)
[2019-05-10] MEDS: ARFORMOTEROL 15 MCG/2 ML NEBU IH SCH ×2 (09:28→21:50)
[2019-05-10] MEDS ORDERED: METOPROLOL TARTRATE 50 MG TAB PO SCH (10:00)
--- NOTE | 2019-05-10 10:16 | XRay Report ---
ABDOMEN 3 VIEW(S) INCLUDING CHEST INDICATION / CLINICAL INFORMATION: n/v. COMPARISON: 05/10/2019 at 0338 hours-chest comparison FINDINGS: SUPPORT DEVICES: Endotracheal tubes in good position. Nasogastric tube has tip curled in the stomach. Hemodialysis catheter has tip in superior vena cava right atrial junction HEART / MEDIASTINUM: No significant abnormality. LUNGS / PLEURA: Bronchovascular markings are prominent minimum hazy density left lower lobe. No evide nce of a pneumothorax No pneumothorax BOWEL: No dilated bowel. FREE AIR / EXTRALUMINAL GAS: None seen. CALCIFICATIONS: No significant abnormal calcifications. ADDITIONAL FINDINGS: Iliac stents are present LUNGS: Visualized lungs show no significant abnormality. SKELETAL STRUCTURES: No significant abnormality. IMPRESSION: 1. Interval development of hazy density left lower lobe atelectasis versus pneumonia should be consid ered Signer Name: Christopher Edward MD Signed: 05/10/2019 10:12 AM Workstation Name: [id number]
[2019-05-10] MEDS: busPIRone 10 MG TAB PO SCH ×2 (10:36→22:13)
[2019-05-10] MEDS: SODIUM BICARBONATE 650 MG TAB PO SCH ×2 (10:36→22:13)
[2019-05-10] MEDS: ASPIRIN EC 81 MG TAB PO SCH (10:36)
--- NOTE | 2019-05-10 10:36 | Progress Note ---
Assessment and Plan Impression: * End stage renal disease * Acute on chronic hypoxic respiratory failure --wears 2-3L [place] oxygen at home * COPD exacerbation * Chronic diastolic heart failure * Hypertension by history * Hypotension * Anemia secondary to ESRD * Secondary hyperparathyroidism * Acidosis Plan: * Continue MWF schedule for HD, due today * Holding bp meds, continue pressors prn for MAP>65 * plans for trach and peg noted in am today * UF as tolerated * Vent management per pulmonary medicine * Dose medications for renal function * Epogen TIW prn * Nutrition per primary team Subjective Date of service: 05/10/19 Principal diagnosis: Acute resp failure,COPd exacerbation Interval history: No acute changes noted per chart review Objective - Exam Narrative Exam: General appearance: intubated, frail EENT: other (ETT in place) Respiratory: Present: Wheezes Cardiology: regular, S1S2 Gastrointestinal: hypoactive bowel sounds Integumentary: no rash, warm and dry Musculoskeletal: other (no edema) Neuro: sedated - Vital Signs Vital signs: Vital Signs - 12hr 05/09/19 05/10/19 05/10/19 23:01 00:00 00:33 Temperature 98.9 F Pulse Rate 163 H 163 H 149 H Pulse Rate [ Anterior Bilateral] Pulse Rate [ 154 H From Monitor] Respiratory 30 H 24 Rate Respiratory Rate [Anterior Bilateral] Blood Pressure 75/60 90/49 76/49 O2 Sat by Pulse 92 90 92 Oximetry 05/10/19 05/10/19 05/10/19 01:00 01:27 02:00 Temperature Pulse Rate 144 H 161 H 154 H Pulse Rate [ Anterior Bilateral] Pulse Rate [ From Monitor] Respiratory 24 36 H Rate Respiratory Rate [Anterior Bilateral] Blood Pressure 91/57 108/79 124/83 O2 Sat by Pulse 90 94 Oximetry 05/10/19 05/10/19 05/10/19 03:00 04:00 04:01 Temperature 98.6 F Pulse Rate 149 H 143 H 144 H Pulse Rate [ Anterior Bilateral] Pulse Rate [ 143 H From Monitor] Respiratory 23 26 H 28 H Rate Respiratory Rate [Anterior Bilateral] Blood Pressure 92/57 134/114 O2 Sat by Pulse 93 94 95 Oximetry 05/10/19 05/10/19 05/10/19 05:00 05:56 06:00 Temperature Pulse Rate 138 H 135 H 149 H Pulse Rate [ Anterior Bilateral] Pulse Rate [ From Monitor] Respiratory 23 24 Rate Respiratory Rate [Anterior Bilateral] Blood Pressure 85/62 97/57 97/59 O2 Sat by Pulse 93 95 Oximetry 05/10/19 05/10/19 05/10/19 06:14 07:00 08:00 Temperature Pulse Rate 145 H 130 H Pulse Rate [ Anterior Bilateral] Pulse Rate [ 90 From Monitor] Respiratory 24 26 H Rate Respiratory Rate [Anterior Bilateral] Blood Pressure 97/59 90/64 O2 Sat by Pulse 96 96 96 Oximetry 05/10/19 05/10/19 05/10/19 08:01 09:01 09:25 Temperature Pulse Rate 87 96 H 91 H Pulse Rate [ Anterior Bilateral] Pulse Rate [ From Monitor] Respiratory 24 22 Rate Respiratory Rate [Anterior Bilateral] Blood Pressure 97/73 68/35 120/70 O2 Sat by Pulse 96 95 Oximetry 05/10/19 09:28 Temperature Pulse Rate Pulse Rate [ 101 H Anterior Bilateral] Pulse Rate [ From Monitor] Respiratory Rate Respiratory 29 H Rate [Anterior Bilateral] Blood Pressure O2 Sat by Pulse Oximetry - Lab 05/10/19 05:14 05/10/19 05:14 Most recent lab results ABG pH 7.327 pH Units (7.350-7.450) L 05/08/19 13:54 ABG pCO2 36.0 mm Hg 05/08/19 13:54 ABG pO2 67.2 mm Hg (80.0-90.0) L 05/08/19 13:54 ABG HCO3 18.4 mmol/L (20.0-26.0) L 05/08/19 13:54 ABG O2 Saturation 91.6 % (95.0-99.0) L 05/08/19 13:54 Calcium 8.7 mg/dL (8.4-10.2) 05/10/19 05:14 Phosphorus 12.90 mg/dL (2.5-4.5) H 05/03/19 09:44 Magnesium 1.60 mg/dL (1.7-2.3) L 05/07/19 19:35 Medications & Allergies - Medications Allergies/Adverse Reactions: Allergies latex Allergy (Verified 02/05/19 13:51) Hives milk Allergy (Verified 02/05/19 13:51) Rash Home Medications: Home Medications Medication Instructions Recorded Confirmed Last Taken Type Metoprolol [Lopressor TAB] 50 mg PO BID #60 tablet 01/27/18 05/03/19 04/11/19 Rx Montelukast [Singulair] 10 mg PO QPM #30 tablet 01/27/18 05/03/19 04/11/19 Rx Pravastatin [Pravachol] 40 mg PO QHS #30 tablet 01/27/18 05/03/19 04/11/19 Rx allopurinoL [Zyloprim] 100 mg PO QDAY #30 tablet 01/27/18 05/03/19 04/11/19 Rx Famotidine [Pepcid] 20 mg PO BID 06/17/18 05/03/19 04/11/19 History Fluticasone/Vilanterol [Breo 1 each IH BID #1 blst.w.dev 12/31/18 05/03/19 Rx Ellipta 200-25 Mcg INH] Tiotropium Piru [Spiriva 4 gm IH DAILY #1 mist.inhal 12/31/18 05/03/19 04/11/19 Rx Respimat] Aspirin EC [Halfprin EC] 81 mg PO QDAY #30 tablet.dr 02/18/19 05/03/19 04/11/19 Rx ISOSORBIDE MONOnitrate [Imdur ER] 30 mg PO QDAY #30 tablet 02/18/19 05/03/19 Unknown Rx glipiZIDE [Glucotrol] 5 mg PO QDAY #30 tablet 02/18/19 05/03/19 Unknown Rx ALBUTEROL NEB's [Proventil 0.083% 2.5 mg IH Q4HRT PRN #30 nebu 04/15/19 05/03/19 Unknown Rx NEBS] Furosemide [Lasix] 20 mg PO QDAY #30 tablet 04/15/19 05/03/19 Unknown Rx Ipratropium/Albuterol Sulfate 2 puff IH BID #1 unit 04/15/19 05/03/19 Unknown Rx [Combivent Respimat] Olanzapine/Fluoxetine HCl [Symbyax 1 each PO QHS #30 capsule 04/15/19 05/03/19 Unknown Rx 3-25 mg] Sodium Bicarbonate 650 mg PO BID #60 tablet 04/15/19 05/03/19 Unknown Rx amLODIPine 10 mg PO DAILY #30 tablet 04/15/19 05/03/19 Unknown Rx cefUROXime [Ceftin] 250 mg PO Q12H #14 tablet 04/15/19 05/03/19 Unknown Rx predniSONE [Deltasone] 1 tab PO QDAY #91 tab 04/15/19 05/03/19 Unknown Rx traMADoL [Ultram 50 MG tab] 50 mg PO Q8H PRN #15 tab 04/15/19 05/03/19 04/11/19 Rx Active Medications: Generic Name Dose Route Start Last Admin Trade Name Freq PRN Reason Stop Dose Admin Acetaminophen 650 mg 04/30/19 17:44 05/05/19 15:22 Tylenol PO 650 mg Q4H PRN Administration Pain MILD(1-3)/Fever >100.5/HERRMANN Albuterol 2.5 mg 04/30/19 18:32 05/02/19 04:49 Proventil IH 2.5 mg Q3H PRN Administration Shortness Of Breath Albuterol/Ipratropium 1 ampul 04/30/19 20:00 05/10/19 09:28 Duoneb *Not For Prn Use* IH Not Given QIDRT KVNG Allopurinol 100 mg 04/30/19 18:00 05/09/19 11:20 Zyloprim PO 100 mg QDAY KVNG Administration Lipase/Protease/Amylase 1 each 05/04/19 14:58 Pancreazivania Gould 10,500 Unit FEEDTUBE PRN PRN For Clogged Feeding Tube Arformoterol Tartrate 15 mcg 05/01/19 08:00 05/10/19 09:28 Brovana Nebu IH 15 mcg Q12HRT KVNG Administration Aspirin 81 mg 04/30/19 18:00 05/09/19 10:43 Halfprin Ec PO 81 mg QDAY KVNG Administration Budesonide 0.5 mg 05/03/19 11:00 05/10/19 09:28 Pulmicort IH 0.5 mg Q12HRT KVNG Administration Buspirone HCl 15 mg 05/04/19 10:00 05/09/19 22:11 Buspar PO 15 mg BID KVNG Administration Famotidine 20 mg 05/10/19 10:00 Pepcid IV DAILY KVNG Fentanyl 50 mcg 05/06/19 08:00 05/10/19 08:37 Sublimaze IV 50 mcg Q2H KVNG Administration Heparin Sodium (Porcine) 5,000 unit 05/04/19 22:00 05/09/19 22:12 Heparin SUB-Q 5,000 unit Q12HR KVNG Administration Hydralazine HCl 5 mg 05/01/19 22:47 05/06/19 04:57 Apresoline IV 5 mg Q6HR PRN Administration SBP > 160 AND/OR DBP > 100 Hydrophilic Ointment 1 applic 05/04/19 09:42 Vaseline Lip Therapy TP Q2HR PRN Dry Lips Sodium Chloride 100 mls @ 999 mls/hr 04/30/19 13:29 Nacl 0.9% IV ALBINO PRN Hypotension Levofloxacin/Dextrose 500 mg in 100 mls @ 100 mls/hr 05/02/19 19:00 05/09/19 08:07 Levaquin 500mg/100ml IV 05/10/19 19:59 Not Given Q48H KVNG Propofol 1,000 mg in 100 mls @ 1.482 mls/hr 05/04/19 09:00 05/06/19 07:50 Diprivan 10 Mg/Ml IV 0 mcg/kg/min TITR KVNG 0 mls/hr Titration Protocol 5 MCG/KG/MIN Norepinephrine 4 mg in 250 mls @ 7.5 mls/hr 05/08/19 09:00 05/10/19 10:34 Levophed Drip 4 Mg/Ns 250 Ml IV 2 mcg/min TITR KVNG 7.5 mls/hr Titration Protocol 2 MCG/MIN Insulin Human Lispro 0 unit 05/05/19 18:00 05/10/19 05:56 Humalog SUB-Q Not Given Q6HR REPLACED BY [facility] Protocol Lorazepam 1 mg 05/02/19 11:08 05/09/19 23:17 Ativan IV 1 mg Q4H PRN Administration Anxiety Methylprednisolone Sodium Succinate 60 mg 05/04/19 09:00 05/10/19 03:25 Solu-Medrol IV 60 mg Q6H KVNG Administration Metoprolol Tartrate 25 mg 05/10/19 10:00 Metoprolol PO BID KVNG Montelukast Sodium 10 mg 04/30/19 19:00 05/09/19 19:02 Singulair PO 10 mg QPM KVNG Administration Multi-Ingred Cream/Lotion/Oil/Oint 1 applic 05/04/19 09:42 Artificial Tears Ophth Oint OU Q4HR PRN Dry Eye(s) Pravastatin Sodium 40 mg 04/30/19 22:00 05/09/19 22:12 Pravachol PO 40 mg QHS KVNG Administration Simple Syrup 15 ml 05/04/19 14:58 Simple Syrup FEEDTUBE PRN PRN Hypoglycemia Simple Syrup 30 ml 05/04/19 14:58 Simple Syrup FEEDTUBE PRN PRN Hypoglycemia Sodium Bicarbonate 650 mg 04/30/19 22:00 05/09/19 22:11 Sodium Bicarbonate PO 650 mg BID KVNG Administration Sodium Bicarbonate 325 mg 05/04/19 14:58 Sodium Bicarbonate FEEDTUBE PRN PRN For Clogged Feeding Tube Sodium Chloride 10 ml 04/30/19 22:00 05/09/19 22:12 Sodium Chloride Flush Syringe 10 Ml IV 10 ml BID KVNG Administration Sodium Chloride 10 ml 04/30/19 17:44 05/01/19 03:55 Sodium Chloride Flush Syringe 10 Ml IV 10 ml PRN PRN Administration LINE FLUSH
[2019-05-10] MEDS: FAMOTIDINE 20 MG/2 ML INJ IV SCH (10:37)
[2019-05-10] MEDS: allopurinoL 100 MG TAB PO SCH (10:38)
[2019-05-10] MEDS: HEPARIN 5,000 UNIT/1 ML VIAL SUB-Q SCH ×2 (10:38→22:13)
--- NOTE | 2019-05-10 11:14 | Progress Note ---
Assessment and Plan 78 y/o female with acute on chronic respiratory failure secondary to volume overload, resolved. 1. Continue steroids at 60q6, will start to wean this week. 2. Diprovan for sedation with PRN ativan 3. Continue HD per renal 4. Started Buspar prior to intubation, will continue 5. Midline placement, done 6. NG tube placed. 7. Trach and Peg and LTACH placement CCT 31 minutes. Subjective Date of service: 05/10/19 Principal diagnosis: Acute resp failure,COPd exacerbation Interval history: No acute events. Remains on minimal vent support. Surgery has been consulted for trach and peg. Objective Vital Signs - 12hr 05/10/19 05/10/19 05/10/19 00:00 00:33 01:00 Temperature 98.9 F Pulse Rate 163 H 149 H 144 H Pulse Rate [ Anterior Bilateral] Pulse Rate [ 154 H From Monitor] Respiratory 24 24 Rate Respiratory Rate [Anterior Bilateral] Blood Pressure 90/49 76/49 91/57 O2 Sat by Pulse 90 92 90 Oximetry 05/10/19 05/10/19 05/10/19 01:27 02:00 03:00 Temperature Pulse Rate 161 H 154 H 149 H Pulse Rate [ Anterior Bilateral] Pulse Rate [ From Monitor] Respiratory 36 H 23 Rate Respiratory Rate [Anterior Bilateral] Blood Pressure 108/79 124/83 92/57 O2 Sat by Pulse 94 93 Oximetry 05/10/19 05/10/19 05/10/19 04:00 04:01 05:00 Temperature 98.6 F Pulse Rate 143 H 144 H 138 H Pulse Rate [ Anterior Bilateral] Pulse Rate [ 143 H From Monitor] Respiratory 26 H 28 H 23 Rate Respiratory Rate [Anterior Bilateral] Blood Pressure 134/114 85/62 O2 Sat by Pulse 94 95 93 Oximetry 05/10/19 05/10/19 05/10/19 05:56 06:00 06:14 Temperature Pulse Rate 135 H 149 H 145 H Pulse Rate [ Anterior Bilateral] Pulse Rate [ From Monitor] Respiratory 24 Rate Respiratory Rate [Anterior Bilateral] Blood Pressure 97/57 97/59 97/59 O2 Sat by Pulse 95 96 Oximetry 05/10/19 05/10/19 05/10/19 07:00 08:00 08:01 Temperature Pulse Rate 130 H 87 Pulse Rate [ Anterior Bilateral] Pulse Rate [ 90 From Monitor] Respiratory 24 26 H 24 Rate Respiratory Rate [Anterior Bilateral] Blood Pressure 90/64 97/73 O2 Sat by Pulse 96 96 Oximetry 05/10/19 05/10/19 05/10/19 09:01 09:25 09:28 Temperature Pulse Rate 96 H 91 H Pulse Rate [ 101 H Anterior Bilateral] Pulse Rate [ From Monitor] Respiratory 22 Rate Respiratory 29 H Rate [Anterior Bilateral] Blood Pressure 68/35 120/70 O2 Sat by Pulse 96 95 Oximetry Constitutional: other (Sedated and orally intubated) Eyes: non-icteric ENT: other (orally intubated and sedated.) Neck: supple Effort: mildly labored Ascultation: Bilateral: diminished breath sounds, rales, rhonchi Percussion: Bilateral: not dull Cardiovascular: other (sinus tach) Gastrointestinal: normoactive bowel sounds Neurologic: unable to assess CBC and BMP: 05/10/19 05:14 05/10/19 05:14 ABG, PT/INR, D-dimer: ABG ABG pH 7.327 pH Units (7.350-7.450) L 05/08/19 13:54 ABG pCO2 36.0 mm Hg 05/08/19 13:54 ABG pO2 67.2 mm Hg (80.0-90.0) L 05/08/19 13:54 ABG O2 Saturation 91.6 % (95.0-99.0) L 05/08/19 13:54 PT/INR, D-dimer PT 14.3 Sec. (12.2-14.9) 04/30/19 15:23 INR 1.10 (0.87-1.13) 04/30/19 15:23 Abnormal lab findings: Abnormal Labs 04/30/19 04/30/19 04/30/19 10:12 11:32 11:32 WBC RDW 17.1 H Plt Count 84 L Lymph % (Auto) 10.9 L [place] % (Auto) 7.4 H Lymph # 0.8 L Seg Neutrophils % 80.6 H Seg Neuts % (Manual) Lymphocytes % (Manual) Nucleated RBC % Seg Neutrophils # Man Lymphocytes # (Manual) Monocytes # (Manual) PT 28.3 H INR 2.59 H APTT ABG pH 7.347 L ABG pO2 221.9 H ABG HCO3 ABG O2 Saturation 99.3 H ABG Base Excess -2.2 L ABG Hemoglobin Oxyhemoglobin Sodium Potassium Chloride Carbon Dioxide BUN Creatinine Glucose POC Glucose Phosphorus Magnesium Troponin T NT-Pro-B Natriuret Pep Triglycerides Cholesterol LDL Cholesterol Direct HDL Cholesterol 04/30/19 04/30/19 04/30/19 14:20 15:23 18:05 WBC RDW Plt Count Lymph % (Auto) [place] % (Auto) Lymph # Seg Neutrophils % Seg Neuts % (Manual) Lymphocytes % (Manual) Nucleated RBC % Seg Neutrophils # Man Lymphocytes # (Manual) Monocytes # (Manual) PT INR APTT 37.2 H ABG pH ABG pO2 79.2 L ABG HCO3 ABG O2 Saturation ABG Base Excess ABG Hemoglobin Oxyhemoglobin 94.4 L Sodium 146 H Potassium 3.2 L Chloride Carbon Dioxide BUN 39 H Creatinine 2.6 H Glucose POC Glucose Phosphorus Magnesium Troponin T 0.117 H* NT-Pro-B Natriuret Pep [id number] H Triglycerides 178 H Cholesterol 303 H LDL Cholesterol Direct 190 H HDL Cholesterol 105 H 04/30/19 05/01/19 05/01/19 22:20 00:48 04:46 WBC RDW Plt Count Lymph % (Auto) [place] % (Auto) Lymph # Seg Neutrophils % Seg Neuts % (Manual) Lymphocytes % (Manual) Nucleated RBC % Seg Neutrophils # Man Lymphocytes # (Manual) Monocytes # (Manual) PT INR APTT ABG pH ABG pO2 98.3 H ABG HCO3 ABG O2 Saturation ABG Base Excess ABG Hemoglobin Oxyhemoglobin Sodium Potassium Chloride Carbon Dioxide BUN Creatinine Glucose POC Glucose 108 H 142 H Phosphorus Magnesium Troponin T NT-Pro-B Natriuret Pep Triglycerides Cholesterol LDL Cholesterol Direct HDL Cholesterol 05/01/19 05/01/19 05/01/19 12:43 12:43 13:27 WBC RDW 16.4 H Plt Count 132 L Lymph % (Auto) [place] % (Auto) Lymph # Seg Neutrophils % Seg Neuts % (Manual) 95.0 H Lymphocytes % (Manual) 3.0 L Nucleated RBC % Seg Neutrophils # Man Lymphocytes # (Manual) 0.2 L Monocytes # (Manual) PT INR APTT ABG pH ABG pO2 ABG HCO3 ABG O2 Saturation ABG Base Excess ABG Hemoglobin Oxyhemoglobin Sodium Potassium Chloride 95.1 L Carbon Dioxide 21 L BUN 29 H Creatinine 3.2 H Glucose 137 H POC Glucose 114 H Phosphorus Magnesium Troponin T NT-Pro-B Natriuret Pep Triglycerides Cholesterol LDL Cholesterol Direct HDL Cholesterol 05/01/19 05/02/19 05/02/19 18:41 00:01 05:40 WBC RDW Plt Count Lymph % (Auto) [place] % (Auto) Lymph # Seg Neutrophils % Seg Neuts % (Manual) Lymphocytes % (Manual) Nucleated RBC % Seg Neutrophils # Man Lymphocytes # (Manual) Monocytes # (Manual) PT INR APTT ABG pH ABG pO2 ABG HCO3 ABG O2 Saturation ABG Base Excess ABG Hemoglobin Oxyhemoglobin Sodium Potassium Chloride Carbon Dioxide BUN Creatinine Glucose POC Glucose 127 H 110 H 135 H Phosphorus Magnesium Troponin T NT-Pro-B Natriuret Pep Triglycerides Cholesterol LDL Cholesterol Direct HDL Cholesterol 05/02/19 05/02/19 05/03/19 13:06 19:14 09:44 WBC RDW 17.1 H Plt Count Lymph % (Auto) [place] % (Auto) Lymph # Seg Neutrophils % Seg Neuts % (Manual) Lymphocytes % (Manual) Nucleated RBC % Seg Neutrophils # Man Lymphocytes # (Manual) Monocytes # (Manual) PT INR APTT ABG pH ABG pO2 ABG HCO3 ABG O2 Saturation ABG Base Excess ABG Hemoglobin Oxyhemoglobin Sodium Potassium Chloride Carbon Dioxide BUN Creatinine Glucose POC Glucose 152 H 117 H Phosphorus Magnesium Troponin T NT-Pro-B Natriuret Pep Triglycerides Cholesterol LDL Cholesterol Direct HDL Cholesterol 05/03/19 05/03/19 05/03/19 09:44 10:13 18:45 WBC RDW Plt Count Lymph % (Auto) [place] % (Auto) Lymph # Seg Neutrophils % Seg Neuts % (Manual) Lymphocytes % (Manual) Nucleated RBC % Seg Neutrophils # Man Lymphocytes # (Manual) Monocytes # (Manual) PT INR APTT ABG pH 7.166 L* ABG pO2 ABG HCO3 ABG O2 Saturation 94.5 L ABG Base Excess -8.8 L ABG Hemoglobin 11.6 L Oxyhemoglobin 92.4 L Sodium Potassium 6.2 H* D Chloride 93.2 L Carbon Dioxide 13 L D BUN 93 H Creatinine 7.2 H D Glucose 138 H POC Glucose 128 H Phosphorus 12.90 H Magnesium 2.70 H Troponin T NT-Pro-B Natriuret Pep Triglycerides Cholesterol LDL Cholesterol Direct HDL Cholesterol 05/03/19 05/04/19 05/04/19 19:40 01:04 03:51 WBC 11.2 H RDW 16.6 H Plt Count Lymph % (Auto) [place] % (Auto) Lymph # Seg Neutrophils % Seg Neuts % (Manual) Lymphocytes % (Manual) Nucleated RBC % Seg Neutrophils # Man Lymphocytes # (Manual) Monocytes # (Manual) PT INR APTT ABG pH ABG pO2 ABG HCO3 ABG O2 Saturation ABG Base Excess ABG Hemoglobin Oxyhemoglobin Sodium Potassium Chloride 92.7 L Carbon Dioxide BUN 26 H Creatinine 3.2 H D Glucose 129 H POC Glucose 134 H Phosphorus Magnesium Troponin T NT-Pro-B Natriuret Pep Triglycerides Cholesterol LDL Cholesterol Direct HDL Cholesterol 05/04/19 05/04/19 05/04/19 03:51 06:05 12:33 WBC RDW Plt Count Lymph % (Auto) [place] % (Auto) Lymph # Seg Neutrophils % Seg Neuts % (Manual) Lymphocytes % (Manual) Nucleated RBC % Seg Neutrophils # Man Lymphocytes # (Manual) Monocytes # (Manual) PT INR APTT ABG pH ABG pO2 ABG HCO3 ABG O2 Saturation ABG Base Excess ABG Hemoglobin Oxyhemoglobin Sodium Potassium Chloride 92.5 L Carbon Dioxide 19 L BUN 39 H Creatinine 4.3 H Glucose 148 H POC Glucose 138 H 190 H Phosphorus Magnesium Troponin T NT-Pro-B Natriuret Pep Triglycerides Cholesterol LDL Cholesterol Direct HDL Cholesterol 05/04/19 05/04/19 05/04/19 18:25 23:57 Unknown WBC RDW Plt Count Lymph % (Auto) [place] % (Auto) Lymph # Seg Neutrophils % Seg Neuts % (Manual) Lymphocytes % (Manual) Nucleated RBC % Seg Neutrophils # Man Lymphocytes # (Manual) Monocytes # (Manual) PT INR APTT ABG pH ABG pO2 ABG HCO3 ABG O2 Saturation ABG Base Excess -3.4 L ABG Hemoglobin Oxyhemoglobin 94.5 L Sodium Potassium Chloride Carbon Dioxide BUN Creatinine Glucose POC Glucose 190 H 119 H Phosphorus Magnesium Troponin T NT-Pro-B Natriuret Pep Triglycerides Cholesterol LDL Cholesterol Direct HDL Cholesterol 05/05/19 05/05/19 05/05/19 03:45 06:09 12:07 WBC RDW Plt Count Lymph % (Auto) [place] % (Auto) Lymph # Seg Neutrophils % Seg Neuts % (Manual) Lymphocytes % (Manual) Nucleated RBC % Seg Neutrophils # Man Lymphocytes # (Manual) Monocytes # (Manual) PT INR APTT ABG pH 7.456 H ABG pO2 64.8 L ABG HCO3 ABG O2 Saturation 93.6 L ABG Base Excess ABG Hemoglobin Oxyhemoglobin 91.4 L Sodium Potassium Chloride Carbon Dioxide BUN Creatinine Glucose POC Glucose 173 H 260 H Phosphorus Magnesium Troponin T NT-Pro-B Natriuret Pep Triglycerides Cholesterol LDL Cholesterol Direct HDL Cholesterol 05/05/19 05/06/19 05/06/19 18:34 00:49 04:20 WBC 12.8 H RDW 16.9 H Plt Count Lymph % (Auto) [place] % (Auto) Lymph # Seg Neutrophils % Seg Neuts % (Manual) 93.0 H Lymphocytes % (Manual) 2.0 L Nucleated RBC % 1.0 H Seg Neutrophils # Man 11.9 H Lymphocytes # (Manual) 0.3 L Monocytes # (Manual) PT INR APTT ABG pH ABG pO2 ABG HCO3 ABG O2 Saturation ABG Base Excess ABG Hemoglobin Oxyhemoglobin Sodium Potassium Chloride Carbon Dioxide BUN Creatinine Glucose POC Glucose 334 H 230 H Phosphorus Magnesium Troponin T NT-Pro-B Natriuret Pep Triglycerides Cholesterol LDL Cholesterol Direct HDL Cholesterol 05/06/19 05/06/19 05/06/19 04:20 04:20 05:39 WBC RDW Plt Count Lymph % (Auto) [place] % (Auto) Lymph # Seg Neutrophils % Seg Neuts % (Manual) Lymphocytes % (Manual) Nucleated RBC % Seg Neutrophils # Man Lymphocytes # (Manual) Monocytes # (Manual) PT INR APTT ABG pH ABG pO2 62.9 L ABG HCO3 ABG O2 Saturation 92.5 L ABG Base Excess ABG Hemoglobin Oxyhemoglobin 90.5 L Sodium Potassium Chloride 95.1 L Carbon Dioxide BUN 40 H Creatinine 3.6 H Glucose 267 H POC Glucose Phosphorus Magnesium Troponin T NT-Pro-B Natriuret Pep Triglycerides 380 H Cholesterol LDL Cholesterol Direct HDL Cholesterol 05/06/19 05/06/19 05/06/19 06:08 11:15 12:42 WBC RDW Plt Count Lymph % (Auto) [place] % (Auto) Lymph # Seg Neutrophils % Seg Neuts % (Manual) Lymphocytes % (Manual) Nucleated RBC % Seg Neutrophils # Man Lymphocytes # (Manual) Monocytes # (Manual) PT INR APTT ABG pH 7.344 L ABG pO2 56.8 L ABG HCO3 ABG O2 Saturation 85.5 L ABG Base Excess ABG Hemoglobin Oxyhemoglobin 83.8 L Sodium Potassium Chloride Carbon Dioxide BUN Creatinine Glucose POC Glucose 325 H 168 H Phosphorus Magnesium Troponin T NT-Pro-B Natriuret Pep Triglycerides Cholesterol LDL Cholesterol Direct HDL Cholesterol 05/06/19 05/07/19 05/07/19 17:30 00:33 05:25 WBC RDW Plt Count Lymph % (Auto) [place] % (Auto) Lymph # Seg Neutrophils % Seg Neuts % (Manual) Lymphocytes % (Manual) Nucleated RBC % Seg Neutrophils # Man Lymphocytes # (Manual) Monocytes # (Manual) PT INR APTT ABG pH ABG pO2 51.8 L ABG HCO3 ABG O2 Saturation 83.6 L ABG Base Excess -3.3 L ABG Hemoglobin Oxyhemoglobin 81.7 L Sodium Potassium Chloride Carbon Dioxide BUN Creatinine Glucose POC Glucose 172 H 131 H Phosphorus Magnesium Troponin T NT-Pro-B Natriuret Pep Triglycerides Cholesterol LDL Cholesterol Direct HDL Cholesterol 05/07/19 05/07/19 05/07/19 06:31 13:21 15:15 WBC RDW Plt Count Lymph % (Auto) [place] % (Auto) Lymph # Seg Neutrophils % Seg Neuts % (Manual) Lymphocytes % (Manual) Nucleated RBC % Seg Neutrophils # Man Lymphocytes # (Manual) Monocytes # (Manual) PT INR APTT ABG pH 7.317 L ABG pO2 64.0 L ABG HCO3 ABG O2 Saturation 89.7 L ABG Base Excess ABG Hemoglobin Oxyhemoglobin 87.8 L Sodium Potassium Chloride Carbon Dioxide BUN Creatinine Glucose POC Glucose 223 H 200 H Phosphorus Magnesium Troponin T NT-Pro-B Natriuret Pep Triglycerides Cholesterol LDL Cholesterol Direct HDL Cholesterol 05/07/19 05/07/19 05/07/19 18:40 19:35 21:39 WBC RDW Plt Count Lymph % (Auto) [place] % (Auto) Lymph # Seg Neutrophils % Seg Neuts % (Manual) Lymphocytes % (Manual) Nucleated RBC % Seg Neutrophils # Man Lymphocytes # (Manual) Monocytes # (Manual) PT INR APTT ABG pH ABG pO2 ABG HCO3 ABG O2 Saturation ABG Base Excess ABG Hemoglobin Oxyhemoglobin Sodium Potassium Chloride Carbon Dioxide BUN Creatinine Glucose POC Glucose 142 H 138 H Phosphorus Magnesium 1.60 L Troponin T NT-Pro-B Natriuret Pep Triglycerides Cholesterol LDL Cholesterol Direct HDL Cholesterol 05/07/19 05/08/19 05/08/19 23:49 09:32 12:31 WBC RDW Plt Count Lymph % (Auto) [place] % (Auto) Lymph # Seg Neutrophils % Seg Neuts % (Manual) Lymphocytes % (Manual) Nucleated RBC % Seg Neutrophils # Man Lymphocytes # (Manual) Monocytes # (Manual) PT INR APTT ABG pH ABG pO2 65.1 L ABG HCO3 18.7 L ABG O2 Saturation 91.9 L ABG Base Excess -5.8 L ABG Hemoglobin Oxyhemoglobin 90.1 L Sodium Potassium Chloride Carbon Dioxide BUN Creatinine Glucose POC Glucose 195 H 298 H Phosphorus Magnesium Troponin T NT-Pro-B Natriuret Pep Triglycerides Cholesterol LDL Cholesterol Direct HDL Cholesterol 05/08/19 05/08/19 05/08/19 13:54 14:44 14:44 WBC 15.3 H RDW 16.9 H Plt Count Lymph % (Auto) [place] % (Auto) Lymph # Seg Neutrophils % Seg Neuts % (Manual) Lymphocytes % (Manual) Nucleated RBC % Seg Neutrophils # Man Lymphocytes # (Manual) Monocytes # (Manual) PT INR APTT ABG pH 7.327 L ABG pO2 67.2 L ABG HCO3 18.4 L ABG O2 Saturation 91.6 L ABG Base Excess -6.8 L ABG Hemoglobin Oxyhemoglobin 89.6 L Sodium Potassium Chloride 91.3 L Carbon Dioxide 17 L BUN 64 H Creatinine 5.0 H Glucose 337 H POC Glucose Phosphorus Magnesium Troponin T NT-Pro-B Natriuret Pep Triglycerides Cholesterol LDL Cholesterol Direct HDL Cholesterol 05/08/19 05/08/19 05/09/19 17:14 23:49 05:22 WBC RDW Plt Count Lymph % (Auto) [place] % (Auto) Lymph # Seg Neutrophils % Seg Neuts % (Manual) Lymphocytes % (Manual) Nucleated RBC % Seg Neutrophils # Man Lymphocytes # (Manual) Monocytes # (Manual) PT INR APTT ABG pH ABG pO2 ABG HCO3 ABG O2 Saturation ABG Base Excess ABG Hemoglobin Oxyhemoglobin Sodium Potassium Chloride Carbon Dioxide BUN Creatinine Glucose POC Glucose 396 H 322 H 239 H Phosphorus Magnesium Troponin T NT-Pro-B Natriuret Pep Triglycerides Cholesterol LDL Cholesterol Direct HDL Cholesterol 05/09/19 05/09/19 05/09/19 07:14 07:14 11:39 WBC 13.6 H RDW 17.1 H Plt Count Lymph % (Auto) [place] % (Auto) Lymph # Seg Neutrophils % Seg Neuts % (Manual) 91.0 H Lymphocytes % (Manual) 2.0 L Nucleated RBC % 4.0 H Seg Neutrophils # Man 12.4 H Lymphocytes # (Manual) 0.3 L Monocytes # (Manual) PT INR APTT ABG pH ABG pO2 ABG HCO3 ABG O2 Saturation ABG Base Excess ABG Hemoglobin Oxyhemoglobin Sodium 135 L Potassium 5.3 H Chloride 93.5 L Carbon Dioxide 14 L BUN 85 H Creatinine 6.1 H Glucose 242 H POC Glucose 273 H Phosphorus Magnesium Troponin T NT-Pro-B Natriuret Pep Triglycerides Cholesterol LDL Cholesterol Direct HDL Cholesterol 05/09/19 05/09/19 05/10/19 17:29 21:45 00:11 WBC RDW Plt Count Lymph % (Auto) [place] % (Auto) Lymph # Seg Neutrophils % Seg Neuts % (Manual) Lymphocytes % (Manual) Nucleated RBC % Seg Neutrophils # Man Lymphocytes # (Manual) Monocytes # (Manual) PT INR APTT ABG pH ABG pO2 ABG HCO3 ABG O2 Saturation ABG Base Excess ABG Hemoglobin Oxyhemoglobin Sodium Potassium Chloride Carbon Dioxide BUN Creatinine Glucose POC Glucose 190 H 190 H 247 H Phosphorus Magnesium Troponin T NT-Pro-B Natriuret Pep Triglycerides Cholesterol LDL Cholesterol Direct HDL Cholesterol 05/10/19 05/10/19 05/10/19 05:14 05:14 05:42 WBC 21.0 H RDW 16.8 H Plt Count Lymph % (Auto) [place] % (Auto) Lymph # Seg Neutrophils % Seg Neuts % (Manual) 91.0 H Lymphocytes % (Manual) 2.0 L Nucleated RBC % 7.0 H Seg Neutrophils # Man 19.1 H Lymphocytes # (Manual) 0.4 L Monocytes # (Manual) 1.1 H PT INR APTT ABG pH ABG pO2 ABG HCO3 ABG O2 Saturation ABG Base Excess ABG Hemoglobin Oxyhemoglobin Sodium Potassium Chloride 92.2 L Carbon Dioxide 19 L BUN 111 H Creatinine 7.7 H Glucose 193 H POC Glucose 208 H Phosphorus Magnesium Troponin T NT-Pro-B Natriuret Pep Triglycerides Cholesterol LDL Cholesterol Direct HDL Cholesterol
--- NOTE | 2019-05-10 12:39 | Consultation ---
History of Present Illness Consult date: 05/10/19 Chief complaint: vent dependence - History of present illness History of present illness: 78 yo F with hx of [place], Diastolic CHF, CAD S/P CABG, DM, Asthma, OA, Anxiety disorder, Chronic Respiratory Failure on 2-3 L Home oxygen due to end stage COPD and ESRD on HD(M,W,F) who presented to [facility] ED with SOB and wheezing for 2 days on 04/30/19. Pt was intubated a few days into her hospitalization due to tachypnea and acute respiratory failure. Extubation was attempted this weekend but the patient decompensated and was reintubated. All history is obtained from the chart. Overnight the patient became increasingly tachycardic per nursing notes and EKG showed new onset Afib with RVR. She was treated accordingly and her HR is in the 80s. She is on levophed for hypotension. Surgery consulted for trach/peg Past History Past Medical History: CAD, COPD, diabetes, dialysis, hypertension Past Surgical History: Other (History of coronary artery bypass surgery and also PermCath placement) Social history: no significant social history Family history: no significant family history Medications and Allergies Allergies Allergy/AdvReac Type Severity Reaction Status Date / Time latex Allergy Hives Verified 02/05/19 13:51 milk Allergy Rash Verified 02/05/19 13:51 Home Medications Medication Instructions Recorded Confirmed Last Taken Type Metoprolol [Lopressor TAB] 50 mg PO BID #60 tablet 01/27/18 05/03/19 04/11/19 Rx Montelukast [Singulair] 10 mg PO QPM #30 tablet 01/27/18 05/03/19 04/11/19 Rx Pravastatin [Pravachol] 40 mg PO QHS #30 tablet 01/27/18 05/03/19 04/11/19 Rx allopurinoL [Zyloprim] 100 mg PO QDAY #30 tablet 01/27/18 05/03/19 04/11/19 Rx Famotidine [Pepcid] 20 mg PO BID 06/17/18 05/03/19 04/11/19 History Fluticasone/Vilanterol [Breo 1 each IH BID #1 blst.w.dev 12/31/18 05/03/19 04/11/19 Rx Ellipta 200-25 Mcg INH] Tiotropium [place] [Spiriva 4 gm IH DAILY #1 mist.inhal 12/31/18 05/03/19 Rx Respimat] Aspirin EC [Halfprin EC] 81 mg PO QDAY #30 tablet. 02/18/19 05/03/19 04/11/19 Rx ISOSORBIDE MONOnitrate [Imdur ER] 30 mg PO QDAY #30 tablet 02/18/19 05/03/19 Unknown Rx glipiZIDE [Glucotrol] 5 mg PO QDAY #30 tablet 02/18/19 05/03/19 Unknown Rx ALBUTEROL NEB's [Proventil 0.083% 2.5 mg IH Q4HRT PRN #30 nebu 04/15/19 05/03/19 Unknown Rx NEBS] Furosemide [Lasix] 20 mg PO QDAY #30 tablet 04/15/19 05/03/19 Unknown Rx Ipratropium/Albuterol Sulfate 2 puff IH BID #1 unit 04/15/19 05/03/19 Unknown Rx [Combivent Respimat] Olanzapine/Fluoxetine HCl [Symbyax 1 each PO QHS #30 capsule 04/15/19 05/03/19 Unknown Rx 3-25 mg] Sodium Bicarbonate 650 mg PO BID #60 tablet 04/15/19 05/03/19 Unknown Rx amLODIPine 10 mg PO DAILY #30 tablet 04/15/19 05/03/19 Unknown Rx cefUROXime [Ceftin] 250 mg PO Q12H #14 tablet 04/15/19 05/03/19 Unknown Rx predniSONE [Deltasone] 1 tab PO QDAY #91 tab 04/15/19 05/03/19 Unknown Rx traMADoL [Ultram 50 MG tab] 50 mg PO Q8H PRN #15 tab 04/15/19 05/03/19 04/11/19 Rx Active Meds: Active Medications Acetaminophen (Tylenol) 650 mg PO Q4H PRN PRN Reason: Pain MILD(1-3)/Fever >100.5/HERRMANN Last Admin: 05/05/19 15:22 Dose: 650 mg Documented by: Albuterol (Proventil) 2.5 mg IH Q3H PRN PRN Reason: Shortness Of Breath Last Admin: 05/02/19 04:49 Dose: 2.5 mg Documented by: Albuterol/Ipratropium (Duoneb *Not For Prn Use*) 1 ampul IH QIDRT [facility] Last Admin: 05/10/19 12:20 Dose: 1 ampul Documented by: Allopurinol (Zyloprim) 100 mg PO QDAY [facility] Last Admin: 05/10/19 10:38 Dose: 100 mg Documented by: Lipase/Protease/Amylase (Pancreaze Dr 10,500 Unit) 1 each FEEDTUBE PRN PRN PRN Reason: For Clogged Feeding Tube Arformoterol Tartrate (Brovana Nebu) 15 mcg IH Q12HRT [facility] Last Admin: 05/10/19 09:28 Dose: 15 mcg Documented by: Aspirin (Halfprin Ec) 81 mg PO QDAY [facility] Last Admin: 05/10/19 10:36 Dose: 81 mg Documented by: Budesonide (Pulmicort) 0.5 mg IH Q12HRT [facility] Last Admin: 05/10/19 09:28 Dose: 0.5 mg Documented by: Buspirone HCl (Buspar) 15 mg PO BID [facility] Last Admin: 05/10/19 10:36 Dose: 15 mg Documented by: Famotidine (Pepcid) 20 mg IV DAILY [facility] Last Admin: 05/10/19 10:37 Dose: 20 mg Documented by: Fentanyl (Sublimaze) 50 mcg IV Q2H [facility] Last Admin: 05/10/19 10:37 Dose: 50 mcg Documented by: Heparin Sodium (Porcine) (Heparin) 5,000 unit SUB-Q Q12HR [facility] Last Admin: 05/10/19 10:38 Dose: 5,000 unit Documented by: Hydralazine HCl (Apresoline) 5 mg IV Q6HR PRN PRN Reason: SBP > 160 AND/OR DBP > 100 Last Admin: 05/06/19 04:57 Dose: 5 mg Documented by: Hydrophilic Ointment (Vaseline Lip Therapy) 1 applic TP Q2HR PRN PRN Reason: Dry Lips Sodium Chloride (Nacl 0.9%) 100 mls @ 999 mls/hr IV ALBINO PRN PRN Reason: Hypotension Levofloxacin/Dextrose (Levaquin 500mg/100ml) 500 mg in 100 mls @ 100 mls/hr IV Q48H [facility] Stop: 05/10/19 19:59 Last Admin: 05/09/19 08:07 Dose: Not Given Documented by: Propofol (Diprivan 10 Mg/Ml) 1,000 mg in 100 mls @ 1.482 mls/hr IV TITR [facility]; Protocol Last Titration: 05/06/19 07:50 Dose: 0 mcg/kg/min, 0 mls/hr Documented by: Norepinephrine (Levophed Drip 4 Mg/Ns 250 Ml) 4 mg in 250 mls @ 7.5 mls/hr IV TITR [facility]; Protocol Last Titration: 05/10/19 10:34 Dose: 2 mcg/min, 7.5 mls/hr Documented by: Insulin Human Lispro (Humalog) 0 unit SUB-Q Q6HR [facility]; Protocol Last Admin: 05/10/19 05:56 Dose: Not Given Documented by: Lorazepam (Ativan) 1 mg IV Q4H PRN PRN Reason: Anxiety Last Admin: 05/09/19 23:17 Dose: 1 mg Documented by: Methylprednisolone Sodium Succinate (Solu-Medrol) 60 mg IV Q6H [facility] Last Admin: 05/10/19 10:00 Dose: 60 mg Documented by: Metoprolol Tartrate (Metoprolol) 25 mg PO BID [facility] Montelukast Sodium (Singulair) 10 mg PO QPM [facility] Last Admin: 05/09/19 19:02 Dose: 10 mg Documented by: Multi-Ingred Cream/Lotion/Oil/Oint (Artificial Tears Ophth Oint) 1 applic OU Q4HR PRN PRN Reason: Dry Eye(s) Pravastatin Sodium (Pravachol) 40 mg PO QHS [facility] Last Admin: 05/09/19 22:12 Dose: 40 mg Documented by: Simple Syrup (Simple Syrup) 15 ml FEEDTUBE PRN PRN PRN Reason: Hypoglycemia Simple Syrup (Simple Syrup) 30 ml FEEDTUBE PRN PRN PRN Reason: Hypoglycemia Sodium Bicarbonate (Sodium Bicarbonate) 650 mg PO BID [facility] Last Admin: 05/10/19 10:36 Dose: 650 mg Documented by: Sodium Bicarbonate (Sodium Bicarbonate) 325 mg FEEDTUBE PRN PRN PRN Reason: For Clogged Feeding Tube Sodium Chloride (Sodium Chloride Flush Syringe 10 Ml) 10 ml IV BID [facility] Last Admin: 05/10/19 10:38 Dose: 10 ml Documented by: Sodium Chloride (Sodium Chloride Flush Syringe 10 Ml) 10 ml IV PRN PRN PRN Reason: LINE FLUSH Last Admin: 05/01/19 03:55 Dose: 10 ml Documented by: Review of Systems ROS unobtainable: due to endotracheal tube Exam Vital Signs Pulse Resp 102 H 44 H 04/30/19 09:42 04/30/19 09:42 Narrative exam: Gen: Intubated, restless of vent ENT: ETT and OGT in place CV: s1, S2+ Resp: no wheezes Abd: soft, NT, ND. Ecchymosis of skin of multiple areas of abdominal wall Ext: no c/c/e Results - Labs 05/10/19 05:14 05/10/19 05:14 Abnormal lab results 05/09/19 05/09/19 05/10/19 Range/Units 17:29 21:45 00:11 WBC (4.5-11.0) K/mm3 RDW (13.2-15.2) % Seg Neuts % (Manual) (40.0-70.0) % Lymphocytes % (Manual) (13.4-35.0) % Nucleated RBC % (0.0-0.9) % Seg Neutrophils # Man (1.8-7.7) K/mm3 Lymphocytes # (Manual) (1.2-5.4) K/mm3 Monocytes # (Manual) (0.0-0.8) K/mm3 Chloride (98-107) mmol/L Carbon Dioxide (22-30) mmol/L BUN (7-17) mg/dL Creatinine (0.7-1.2) mg/dL Glucose (65-100) mg/dL POC Glucose 190 H 190 H 247 H (70-105) 05/10/19 05/10/19 05/10/19 Range/Units 05:14 05:14 05:42 WBC 21.0 H (4.5-11.0) K/mm3 RDW 16.8 H (13.2-15.2) % Seg Neuts % (Manual) 91.0 H (40.0-70.0) % Lymphocytes % (Manual) 2.0 L (13.4-35.0) % Nucleated RBC % 7.0 H (0.0-0.9) % Seg Neutrophils # Man 19.1 H (1.8-7.7) K/mm3 Lymphocytes # (Manual) 0.4 L (1.2-5.4) K/mm3 Monocytes # (Manual) 1.1 H (0.0-0.8) K/mm3 Chloride 92.2 L (98-107) mmol/L Carbon Dioxide 19 L (22-30) mmol/L BUN 111 H (7-17) mg/dL Creatinine 7.7 H (0.7-1.2) mg/dL Glucose 193 H (65-100) mg/dL POC Glucose 208 H (70-105) Diabetes panel 05/10/19 Range/Units 05:14 Sodium 140 (137-145) mmol/L Potassium 4.5 (3.6-5.0) mmol/L Chloride 92.2 L (98-107) mmol/L Carbon Dioxide 19 L (22-30) mmol/L BUN 111 H (7-17) mg/dL Creatinine 7.7 H (0.7-1.2) mg/dL Glucose 193 H (65-100) mg/dL Calcium 8.7 (8.4-10.2) mg/dL Calcium panel 05/10/19 Range/Units 05:14 Calcium 8.7 (8.4-10.2) mg/dL Pituitary panel 05/10/19 Range/Units 05:14 Sodium 140 (137-145) mmol/L Potassium 4.5 (3.6-5.0) mmol/L Chloride 92.2 L (98-107) mmol/L Carbon Dioxide 19 L (22-30) mmol/L BUN 111 H (7-17) mg/dL Creatinine 7.7 H (0.7-1.2) mg/dL Glucose 193 H (65-100) mg/dL Calcium 8.7 (8.4-10.2) mg/dL Adrenal panel 05/10/19 Range/Units 05:14 Sodium 140 (137-145) mmol/L Potassium 4.5 (3.6-5.0) mmol/L Chloride 92.2 L (98-107) mmol/L Carbon Dioxide 19 L (22-30) mmol/L BUN 111 H (7-17) mg/dL Creatinine 7.7 H (0.7-1.2) mg/dL Glucose 193 H (65-100) mg/dL Calcium 8.7 (8.4-10.2) mg/dL - Imaging Chest x-ray: report reviewed, image reviewed Abdominal x-ray: report reviewed, image reviewed Assessment and Plan 78 yo F with 1. VDRF 2. hypotension 3. Afib 4. leukocytosis 5. n/v, TF intolerance 6. ESRD Plan: 1. recommend cardiology consult for new onset Afib and preop 2. TF on hold due to high residuals. No obstruction on obs series. Start reglan IV 3. vent management per ICU team 4. wean pressors as tolerated. Ideally will need to be off pressors for procedures. 5. WBC trending up - on levaquin 6. Called patient's daughter, Kasia Dean and left voice message. Once able to discuss trach/peg with family, if they are agreeable - will proceed with scheduling. Thank you, please call with questions.
[2019-05-10] MEDS: METOCLOPRAMIDE 10 MG/2 ML INJ IV SCH (15:00)
[2019-05-10] MEDS: MONTELUKAST 10 MG TAB PO SCH (17:46)
--- NOTE | 2019-05-10 19:21 | Progress Note ---
Assessment and Plan Assessment and plan: 78 yo AA woman with a history of VA, Diastolic CHF, CAD S/P CABG, DM, Asthma, OA, Anxiety disorder, Chronic Respiratory Failure on 2-3 L Home oxygen due to end stage COPD and ESRD on HD(M,W,F) who presented to [facility] ED with SOB and wheezing for the last 2 days. No improvement with home breathing treatments. Patient was found tachypneic and respiratory distress upon their arrival to the house. Patient received albuterol 7.5 mg, started initiation of mag 1 g, Decadron 20 mg IV, and required CPAP and additional oxygen support during transport to the hospital. Patient states she has a history of one intubation. The last 3 days she has been short of breath with wheezing and cough productive of yellow sputum. She is compliant with dialysis and is due today. Patient has very little urine output daily. Patient did complain of chest pain prior to arrival which has improved with CPAP support. Patient very SOB and wheezing during my exam.Patient has not been exposed to anyone with fever and Dry cough.No recent travel.No exposure to foreign traveled patients. * Still on full ventilaotry support. Not tolerating wean becomes tachypenic, fentanyl for pain control added, continue steroids * 05/06: Discussed with automated teller manager plan is for extubation today. Continue management. * 05/07: Discussed with family and automated teller manager, will proceed with re-intubation and possible plan for Trach and PEG. * Daughter informs me that the patient is very anxious and believes that this hampers extubation. Stated that she had discussed with automated teller manager to reintubate the patient if she failed extubation. She does understand the process of weaning from ventilation. * 05/08:" Hyperkalemia, Nephrology managing * 05/09: Afib, will optimize, and plan for trach and PEG. Cardiology consult. * Pulmonary adjusting vent. No changes clinically. Discussed with Surgery, will plan for Trach and Peg Acute on chronic hypoxic respiratory failure Now placed on Mechanical ventilation Patient chronically on home oxygen Continue aggressive neb treatments Steroids being tapered Pulmonary consult note reviewed Continue management per Dr. Buck's recommendations Atrial Fibrillation metoprolol IV with holding parameters Cardiology consulted COPD exacerbation: Continue neb treatments, antibiotics, steroids and oxygen supplement Anxiety disorder Continue Klonopin Hyperglycemia Continue to monitor likely induced by steroid use. end-stage renal disease: On hemodialysis Friday and Friday Nephrology note reviewed Acute metabolic acidosis Chronic diastolic heart failure, Hypertension, Anemia of chronic kidney disease The high probability of a clinically significant, sudden or life threatening deterioration of the [pulmonary] system(s) required my full and direct attention, intervention and personal management. The aggregate critical care time was [35] minutes. This time is in addition to time spent performing reported procedures but includes the following: [x] Data Review and interpretation [x] Patient assessment and monitoring of vital signs [x] Documentation [x] Medication orders and management History Interval history: Patient seen and examined, now with new onset AFIB. still agitated per nursing staff. Hospitalist Physical - Physical exam Narrative exam: VITAL SIGNS: Reviewed. GENERAL: The patient appears chronically ill, on mechanical ventilation vital signs as documented. HEAD: No signs of head trauma. EYES: Pupils are equal. EARS: Hearing grossly intact. MOUTH: ET tube in place. NECK: No adenopathy, no JVD. CHEST: dimished, shallow. tachypenia No wheezes, rales, or rhonchi. CARDIAC: tachycardia, irregular irregular, S1 and S2, without murmurs, gallops, or rubs. VASCULAR: No Edema. Peripheral pulses normal and equal in all extremities. ABDOMEN: Soft, non tender and non distended. No rebound or guarding, and no masses palpated. Bowel Sounds normal. MUSCULOSKELETAL: Restful. Moves all extremities. NEUROLOGIC EXAM: Disoriented, currently on full mechanical support PSYCHIATRIC: Unable to assess SKIN: detail exam as documented in skin assessment - Constitutional Vitals: Temp Pulse Resp BP Pulse Ox 96.9 F L 110 H 24 75/53 99 05/10/19 16:00 05/10/19 19:00 05/10/19 19:00 05/10/19 19:00 05/10/19 19:00 General appearance: Present: mild distress, well-nourished ROB score - Rob Score Age > 65: (1) Yes Aspirin use within the Past 7 Days: (1) Yes 3 or more CAD Risk Factors: (1) Yes 2 or more Angina events in past 24 hrs: (0) No Known CAD with more than 50% Stenosis: (0) No Elevated Cardiac Markers: (0) No ST Deviation Greater than 0.5mm: (0) No ROB Score: 3 Results - Labs CBC & Chem 7: 05/10/19 05:14 05/10/19 05:14 Labs: Laboratory Last Values WBC 21.0 K/mm3 (4.5-11.0) H 05/10/19 05:14 RBC 4.29 M/mm3 (3.65-5.03) 05/10/19 05:14 Hgb 12.5 gm/dl (10.1-14.3) 05/10/19 05:14 Hct 39.0 % (30.3-42.9) 05/10/19 05:14 MCV 91 fl (79-97) 05/10/19 05:14 MCH 29 pg (28-32) 05/10/19 05:14 MCHC 32 % (30-34) 05/10/19 05:14 RDW 16.8 % (13.2-15.2) H 05/10/19 05:14 Plt Count 180 K/mm3 (140-440) 05/10/19 05:14 Lymph % (Auto) 10.9 % (13.4-35.0) L 04/30/19 11:32 Maverick % (Auto) 7.4 % (0.0-7.3) H 04/30/19 11:32 Eos % (Auto) 0.4 % (0.0-4.3) 04/30/19 11:32 Baso % (Auto) 0.7 % (0.0-1.8) 04/30/19 11:32 Lymph # 0.8 K/mm3 (1.2-5.4) L 04/30/19 11:32 Maverick # 0.5 K/mm3 (0.0-0.8) 04/30/19 11:32 Eos # 0.0 K/mm3 (0.0-0.4) 04/30/19 11:32 Baso # 0.1 K/mm3 (0.0-0.1) 04/30/19 11:32 Add Manual Diff Complete 05/10/19 05:14 Total Counted 100 05/10/19 05:14 Seg Neutrophils % Horologist 05/09/19 07:14 Seg Neuts % (Manual) 91.0 % (40.0-70.0) H 05/10/19 05:14 Band Neutrophils % 1.0 % 05/10/19 05:14 Lymphocytes % (Manual) 2.0 % (13.4-35.0) L 05/10/19 05:14 Reactive Lymphs % (Man) 0 % 05/10/19 05:14 Monocytes % (Manual) 5.0 % (0.0-7.3) 05/10/19 05:14 Eosinophils % (Manual) 0 % (0.0-4.3) 05/10/19 05:14 Basophils % (Manual) 0 % (0.0-1.8) 05/10/19 05:14 Metamyelocytes % 1.0 % 05/10/19 05:14 Myelocytes % 0 % 05/10/19 05:14 Promyelocytes % 0 % 05/10/19 05:14 Blast Cells % 0 % 05/10/19 05:14 Nucleated RBC % 7.0 % (0.0-0.9) H 05/10/19 05:14 Seg Neutrophils # 6.0 K/mm3 (1.8-7.7) 04/30/19 11:32 Seg Neutrophils # Man 19.1 K/mm3 (1.8-7.7) H 05/10/19 05:14 Band Neutrophils # 0.2 K/mm3 05/10/19 05:14 Lymphocytes # (Manual) 0.4 K/mm3 (1.2-5.4) L 05/10/19 05:14 Abs React Lymphs (Man) 0.0 K/mm3 05/10/19 05:14 Monocytes # (Manual) 1.1 K/mm3 (0.0-0.8) H 05/10/19 05:14 Eosinophils # (Manual) 0.0 K/mm3 (0.0-0.4) 05/10/19 05:14 Basophils # (Manual) 0.0 K/mm3 (0.0-0.1) 05/10/19 05:14 Metamyelocytes # 0.2 K/mm3 05/10/19 05:14 Myelocytes # 0.0 K/mm3 05/10/19 05:14 Promyelocytes # 0.0 K/mm3 05/10/19 05:14 Blast Cells # 0.0 K/mm3 05/10/19 05:14 WBC Morphology Not Reportable 05/10/19 05:14 Hypersegmented Neuts Not Reportable 05/10/19 05:14 Hyposegmented Neuts Not Reportable 05/10/19 05:14 Hypogranular Neuts Not Reportable 05/10/19 05:14 Smudge Cells Not Reportable 05/10/19 05:14 Toxic Granulation Not Reportable 05/10/19 05:14 Toxic Vacuolation Not Reportable 05/10/19 05:14 Dohle Bodies Not Reportable 05/10/19 05:14 Pelger-Huet Anomaly Not Reportable 05/10/19 05:14 Ariel Rods Not Reportable 05/10/19 05:14 Platelet Estimate Consistent w auto 05/10/19 05:14 Clumped Platelets Not Reportable 05/10/19 05:14 Plt Clumps, EDTA Not Reportable 05/10/19 05:14 Large Platelets Not Reportable 05/10/19 05:14 Giant Platelets Not Reportable 05/10/19 05:14 Platelet Satelliting Not Reportable 05/10/19 05:14 Plt Morphology Comment Not Reportable 05/10/19 05:14 RBC Morphology Not Reportable 05/10/19 05:14 Dimorphic RBCs Not Reportable 05/10/19 05:14 Polychromasia Not Reportable 05/10/19 05:14 Hypochromasia Not Reportable 05/10/19 05:14 Poikilocytosis 1+ 05/10/19 05:14 Anisocytosis 1+ 05/10/19 05:14 Microcytosis Not Reportable 05/10/19 05:14 Macrocytosis Not Reportable 05/10/19 05:14 Spherocytes Not Reportable 05/10/19 05:14 Pappenheimer Bodies Not Reportable 05/10/19 05:14 Sickle Cells Not Reportable 05/10/19 05:14 Target Cells Not Reportable 05/10/19 05:14 Tear Drop Cells Few 05/10/19 05:14 Ovalocytes Not Reportable 05/10/19 05:14 Helmet Cells Not Reportable 05/10/19 05:14 [place] Bodies Not Reportable 05/10/19 05:14 [place] Rings Not Reportable 05/10/19 05:14 [place] Cells Not Reportable 05/10/19 05:14 Bite Cells Not Reportable 05/10/19 05:14 Crenated Cell Not Reportable 05/10/19 05:14 Elliptocytes Few 05/10/19 05:14 Acanthocytes (Spur) Not Reportable 05/10/19 05:14 Rouleaux Not Reportable 05/10/19 05:14 Hemoglobin C Crystals Not Reportable 05/10/19 05:14 Schistocytes Not Reportable 05/10/19 05:14 Malaria parasites Not Reportable 05/10/19 05:14 [place] Bodies Not Reportable 05/10/19 05:14 Hem Pathologist Commnt No 05/10/19 05:14 PT 14.3 Sec. (12.2-14.9) 04/30/19 15:23 INR 1.10 (0.87-1.13) 04/30/19 15:23 APTT 37.2 Sec. (24.2-36.6) H 04/30/19 15:23 ABG pH 7.327 pH Units (7.350-7.450) L 05/08/19 13:54 ABG pCO2 36.0 mm Hg 05/08/19 13:54 ABG pO2 67.2 mm Hg (80.0-90.0) L 05/08/19 13:54 ABG HCO3 18.4 mmol/L (20.0-26.0) L 05/08/19 13:54 ABG O2 Saturation 91.6 % (95.0-99.0) L 05/08/19 13:54 ABG O2 Content 16.8 (0.0-44) 05/08/19 13:54 ABG Base Excess -6.8 mmol/L (-2.0-3.0) L 05/08/19 13:54 ABG Hemoglobin 13.3 gm/dl (12.0-16.0) 05/08/19 13:54 ABG Carboxyhemoglobin 1.4 % (0.0-5.0) 05/08/19 13:54 ABG Methemoglobin 0.7 % (0.0-1.5) 05/08/19 13:54 Oxyhemoglobin 89.6 % (95.0-99.0) L 05/08/19 13:54 FiO2 35 % 05/08/19 13:54 Sodium 140 mmol/L (137-145) 05/10/19 05:14 Potassium 4.5 mmol/L (3.6-5.0) 05/10/19 05:14 Chloride 92.2 mmol/L (98-107) L 05/10/19 05:14 Carbon Dioxide 19 mmol/L (22-30) L 05/10/19 05:14 Anion Gap 33 mmol/L 05/10/19 05:14 BUN 111 mg/dL (7-17) H 05/10/19 05:14 Creatinine 7.7 mg/dL (0.7-1.2) H 05/10/19 05:14 Estimated GFR 6 ml/min 05/10/19 05:14 BUN/Creatinine Ratio 14 % 05/10/19 05:14 Glucose 193 mg/dL (65-100) H 05/10/19 05:14 POC Glucose 214 (70-105) H 05/10/19 17:45 Hemoglobin A1c 5.6 % (4-6) 04/30/19 11:32 Calcium 8.7 mg/dL (8.4-10.2) 05/10/19 05:14 Phosphorus 12.90 mg/dL (2.5-4.5) H 05/03/19 09:44 Magnesium 1.60 mg/dL (1.7-2.3) L 05/07/19 19:35 Total Bilirubin 0.40 mg/dL (0.1-1.2) 05/01/19 12:43 AST 39 units/L (5-40) 05/01/19 12:43 ALT 23 units/L (7-56) 05/01/19 12:43 Alkaline Phosphatase 102 units/L (35-129) 05/01/19 12:43 Total Creatine Kinase Cancelled 04/30/19 14:20 CK-MB (CK-2) Cancelled 04/30/19 14:20 CK-MB (CK-2) Rel Index Cancelled 04/30/19 14:20 Troponin T 0.117 ng/mL (0.00-0.029) H* 04/30/19 14:20 NT-Pro-B Natriuret Pep 98908 pg/mL (0-900) H 04/30/19 14:20 Total Protein 6.6 g/dL (6.3-8.2) 05/01/19 12:43 Albumin 4.0 g/dL (3.9-5) 05/01/19 12:43 Albumin/Globulin Ratio 1.5 % 05/01/19 12:43 Triglycerides 380 mg/dL (2-149) H 05/06/19 04:20 Cholesterol 303 mg/dL (50-199) H 04/30/19 14:20 LDL Cholesterol Direct 190 mg/dL (50-130) H 04/30/19 14:20 HDL Cholesterol 105 mg/dL (40-59) H 04/30/19 14:20 Cholesterol/HDL Ratio 2.88 % 04/30/19 14:20 Hepatitis A IgM Ab Non-reactive (NonReactive) 04/30/19 14:20 Hep Bs Antigen Non-reactive (Negative) 04/30/19 14:20 Hep B Core IgM Ab Non-reactive (NonReactive) 04/30/19 14:20 Hepatitis C Antibody Non-reactive (NonReactive) 04/30/19 14:20 [place]/IV: Voiding Method Diaper IV Catheter Type [Left Mid-line Subclavian] IV Catheter Type [Right Upper INT / Saline Lock arm] IV Catheter Type [Right Hand] INT / Saline Lock IV Catheter Type [Left Forearm INT / Saline Lock ] IV Catheter Type [Right VAS Cath Internal Jugular] Active Medications - Current Medications Current Medications: Generic Name Dose Route Start Last Admin Trade Name Freq PRN Reason Stop Dose Admin Acetaminophen 650 mg 04/30/19 17:44 05/05/19 15:22 Tylenol PO 650 mg Q4H PRN Administration Pain MILD(1-3)/Fever >100.5/HERRMANN Albuterol 2.5 mg 04/30/19 18:32 05/02/19 04:49 Proventil IH 2.5 mg Q3H PRN Administration Shortness Of Breath Albuterol/Ipratropium 1 ampul 04/30/19 20:00 05/10/19 15:38 Duoneb *Not For Prn Use* IH 1 ampul QIDRT KVNG Administration Allopurinol 100 mg 04/30/19 18:00 05/10/19 10:38 Zyloprim PO 100 mg QDAY KVNG Administration Lipase/Protease/Amylase 1 each 05/04/19 14:58 Denisha Gould 10,500 Unit FEEDTUBE PRN PRN For Clogged Feeding Tube Arformoterol Tartrate 15 mcg 05/01/19 08:00 05/10/19 09:28 Brovana Nebu IH 15 mcg Q12HRT KVNG Administration Aspirin 81 mg 04/30/19 18:00 05/10/19 10:36 Halfprin Ec PO 81 mg QDAY KVNG Administration Budesonide 0.5 mg 05/03/19 11:00 05/10/19 09:28 Pulmicort IH 0.5 mg Q12HRT KVNG Administration Buspirone HCl 15 mg 05/04/19 10:00 05/10/19 10:36 Buspar PO 15 mg BID KVNG Administration Famotidine 20 mg 05/10/19 10:00 05/10/19 10:37 Pepcid IV 20 mg DAILY KVNG Administration Fentanyl 50 mcg 05/06/19 08:00 05/10/19 17:15 Sublimaze IV 50 mcg Q2H KVNG Administration Heparin Sodium (Porcine) 5,000 unit 05/04/19 22:00 05/10/19 10:38 Heparin SUB-Q 5,000 unit Q12HR KVNG Administration Hydralazine HCl 5 mg 05/01/19 22:47 05/06/19 04:57 Apresoline IV 5 mg Q6HR PRN Administration SBP > 160 AND/OR DBP > 100 Hydrophilic Ointment 1 applic 05/04/19 09:42 Vaseline Lip Therapy TP Q2HR PRN Dry Lips Sodium Chloride 100 mls @ 999 mls/hr 04/30/19 13:29 Nacl 0.9% IV ALBINO PRN Hypotension Levofloxacin/Dextrose 500 mg in 100 mls @ 100 mls/hr 05/02/19 19:00 05/09/19 08:07 Levaquin 500mg/100ml IV 05/10/19 19:59 Not Given Q48H [facility] Propofol 1,000 mg in 100 mls @ 1.482 mls/hr 05/04/19 09:00 05/06/19 07:50 Diprivan 10 Mg/Ml IV 0 mcg/kg/min TITR KVNG 0 mls/hr Titration Protocol 5 MCG/KG/MIN Norepinephrine 4 mg in 250 mls @ 7.5 mls/hr 05/08/19 09:00 05/10/19 10:34 Levophed Drip 4 Mg/Ns 250 Ml IV 2 mcg/min TITR KVNG 7.5 mls/hr Titration Protocol 2 MCG/MIN Insulin Human Lispro 0 unit 05/05/19 18:00 05/10/19 17:43 Humalog SUB-Q 4 unit Q6HR KVNG Administration Protocol Lorazepam 1 mg 05/02/19 11:08 05/09/19 23:17 Ativan IV 1 mg Q4H PRN Administration Anxiety Methylprednisolone Sodium Succinate 60 mg 05/04/19 09:00 05/10/19 15:30 Solu-Medrol IV 60 mg Q6H KVNG Administration Metoclopramide HCl 5 mg 05/10/19 14:00 05/10/19 15:00 Reglan IV 5 mg Q12H KVNG Administration Montelukast Sodium 10 mg 04/30/19 19:00 05/10/19 17:46 Singulair PO 10 mg QPM KVNG Administration Multi-Ingred Cream/Lotion/Oil/Oint 1 applic 05/04/19 09:42 Artificial Tears Ophth Oint OU Q4HR PRN Dry Eye(s) Pravastatin Sodium 40 mg 04/30/19 22:00 05/09/19 22:12 Pravachol PO 40 mg QHS KVNG Administration Simple Syrup 15 ml 05/04/19 14:58 Simple Syrup FEEDTUBE PRN PRN Hypoglycemia Simple Syrup 30 ml 05/04/19 14:58 Simple Syrup FEEDTUBE PRN PRN Hypoglycemia Sodium Bicarbonate 650 mg 04/30/19 22:00 05/10/19 10:36 Sodium Bicarbonate PO 650 mg BID KVNG Administration Sodium Bicarbonate 325 mg 05/04/19 14:58 Sodium Bicarbonate FEEDTUBE PRN PRN For Clogged Feeding Tube Sodium Chloride 10 ml 04/30/19 22:00 05/10/19 10:38 Sodium Chloride Flush Syringe 10 Ml IV 10 ml BID KVNG Administration Sodium Chloride 10 ml 04/30/19 17:44 05/01/19 03:55 Sodium Chloride Flush Syringe 10 Ml IV 10 ml PRN PRN Administration LINE FLUSH Nutrition/Malnutrition Assess - Dietary Evaluation Nutrition/Malnutrition Findings: Nutrition Notes Start: 05/04/19 11:09 Freq: Status: Active Protocol: Document 05/10/19 12:19 LM (Rec: 05/10/19 12:21 LM [email or web address]) Nutrition Notes Initial or Follow up Brief Note Subjective/Other Information TF on hold due to pt vomiting. Nutrition Intervention Follow-Up By: 05/12/19 Additional Comments F/U for TF restart/tolerance
[2019-05-10] MEDS: LORazepam 2 MG/ML VIAL IV PRN (21:53)
[2019-05-10] MEDS: PRAVASTATIN 40 MG TAB PO SCH (22:13)
[2019-05-11] MEDS: INSULIN LISPRO 100 UNIT/ML SUB-Q SCH ×5 (00:22→23:59)
[2019-05-11] MEDS: fentaNYL 100 MCG/2 ML INJ IV SCH ×5 (00:23→09:23)
[2019-05-11] MEDS: methylPREDNISolone Sod Succinate 125 MG/2 ML INJ IV SCH ×4 (02:33→21:29)
[2019-05-11] MEDS: METOCLOPRAMIDE 10 MG/2 ML INJ IV SCH ×2 (02:35→15:01)
--- NOTE | 2019-05-11 03:59 | XRay Report ---
CHEST 1 VIEW INDICATION / CLINICAL INFORMATION: follow up respiratory failure. COMPARISON: 05/10/2019 FINDINGS: SUPPORT DEVICES: Endotracheal tube, nasogastric tube, right central venous line HEART / MEDIASTINUM: No significant abnormality. LUNGS / PLEURA: Left lower lobe airspace disease has improved some since yesterday No pneumothorax. ADDITIONAL FINDINGS: No significant additional findings. IMPRESSION: Some improvement in the left lower lobe airspace disease since yesterday. Right lung remains clear Signer Name: Hubert Savage MD FACR Signed: 05/11/2019 3:55 AM Workstation Name: [id number]
[2019-05-11 04:19] LABS: ABG Base Excess -0.2 mmol/L (-2.0-3.0); ABG HCO3 23.6 mmol/L (20.0-26.0); ABG Methemoglobin 0.6 % (0.0-1.5); ABG Oxygen Saturation 89.9 % (95.0-99.0); ABG PCO2 35.4 mm Hg; ABG PH 7.441 pH Units (7.350-7.450); ABG PO2 57.9 mm Hg (80.0-90.0)
[2019-05-11 05:24] LABS: Mean Corpuscular HGB Conc 33 % (30-34); Mean Corpuscular Volume 90 fl (79-97); Platelet Count 134 K/mm3 (140-440); Red Blood Count 3.79 M/mm3 (3.65-5.03)
[2019-05-11 05:34] LABS: Calcium 8.5 mg/dL (8.4-10.2)
[2019-05-11 06:41] LABS: Band Neutrophils # (Manual) 0.4 K/mm3; Basophils % (Manual) 0 % (0.0-1.8); Eosinophils % (Manual) 0 % (0.0-4.3); Total Cells Counted 100
[2019-05-11 06:44] LABS: Tear Drop Cells Rare
[2019-05-11 06:47] LABS: Poikilocytosis Few
[2019-05-11 06:49] LABS: Anisocytosis Few; Platelet Estimate Consistent w Auto
[2019-05-11] MEDS: BUDESONIDE 0.5 MG/2 ML NEBU IH SCH ×2 (08:00→21:35)
[2019-05-11] MEDS: ARFORMOTEROL 15 MCG/2 ML NEBU IH SCH ×2 (08:00→21:35)
[2019-05-11] MEDS: IPRATROPIUM/ALBUTEROL SULFATE 3 ML AMPUL.NEB IH SCH ×4 (08:00→21:35)
--- NOTE | 2019-05-11 09:06 | Progress Note ---
Assessment and Plan 78 y/o female with acute on chronic respiratory failure secondary to volume overload, resolved. 1. Continue steroids at 60q6, will start to wean this week. 2. Diprovan for sedation with PRN ativan 3. Continue HD per renal 4. Started Buspar prior to intubation, will continue 5. Midline placement, done 6. NG tube placed. 7. Trach and Peg and LTACH placement. Surgery has spoken to Family and they have agreed to procedure CCT 31 minutes. Subjective Date of service: 05/11/19 Principal diagnosis: Acute resp failure,COPd exacerbation Interval history: Awake on Vent, also on levophed at 2mcgs. Not sure exactly when this was started. Objective Vital Signs - 12hr 05/10/19 05/10/19 05/10/19 21:57 22:00 23:00 Temperature Pulse Rate 115 H 99 H Pulse Rate [ 110 H Anterior Bilateral] Pulse Rate [ From Monitor] Respiratory 24 20 Rate Respiratory 29 H Rate [Anterior Bilateral] Blood Pressure 118/90 125/74 O2 Sat by Pulse 89 100 Oximetry 05/10/19 05/10/19 05/11/19 23:10 23:16 00:00 Temperature 98.8 F Pulse Rate 107 H 100 H Pulse Rate [ Anterior Bilateral] Pulse Rate [ From Monitor] Respiratory 24 18 Rate Respiratory Rate [Anterior Bilateral] Blood Pressure 124/64 146/77 O2 Sat by Pulse 100 98 Oximetry 05/11/19 05/11/19 05/11/19 00:31 01:00 01:35 Temperature Pulse Rate 99 H 107 H Pulse Rate [ Anterior Bilateral] Pulse Rate [ 111 H From Monitor] Respiratory 26 H 22 Rate Respiratory Rate [Anterior Bilateral] Blood Pressure 128/66 84/61 O2 Sat by Pulse 99 100 100 Oximetry 05/11/19 05/11/19 05/11/19 02:00 03:00 03:39 Temperature 98.4 F Pulse Rate 110 H 95 H Pulse Rate [ Anterior Bilateral] Pulse Rate [ From Monitor] Respiratory 19 24 Rate Respiratory Rate [Anterior Bilateral] Blood Pressure 102/69 99/68 O2 Sat by Pulse 100 99 Oximetry 05/11/19 05/11/19 05/11/19 03:57 04:00 04:17 Temperature Pulse Rate 101 H 97 H Pulse Rate [ Anterior Bilateral] Pulse Rate [ 111 H From Monitor] Respiratory 24 26 H Rate Respiratory Rate [Anterior Bilateral] Blood Pressure 97/58 112/61 O2 Sat by Pulse 98 94 99 Oximetry 05/11/19 05/11/19 05/11/19 05:00 06:00 07:57 Temperature Pulse Rate 97 H 92 H 99 H Pulse Rate [ Anterior Bilateral] Pulse Rate [ From Monitor] Respiratory 25 H 25 H Rate Respiratory Rate [Anterior Bilateral] Blood Pressure 109/62 163/92 114/69 O2 Sat by Pulse 100 100 Oximetry 05/11/19 08:00 Temperature Pulse Rate Pulse Rate [ 100 H Anterior Bilateral] Pulse Rate [ From Monitor] Respiratory Rate Respiratory 26 H Rate [Anterior Bilateral] Blood Pressure O2 Sat by Pulse Oximetry Constitutional: other (Sedated and orally intubated) Eyes: non-icteric ENT: other (orally intubated and sedated.) Neck: supple Effort: mildly labored Ascultation: Bilateral: diminished breath sounds, rales, rhonchi Percussion: Bilateral: not dull Cardiovascular: other (sinus tach) Gastrointestinal: normoactive bowel sounds Neurologic: unable to assess CBC and BMP: 05/11/19 04:23 05/11/19 04:23 ABG, PT/INR, D-dimer: ABG ABG pH 7.441 pH Units (7.350-7.450) 05/11/19 04:08 ABG pCO2 35.4 mm Hg 05/11/19 04:08 ABG pO2 57.9 mm Hg (80.0-90.0) L 05/11/19 04:08 ABG O2 Saturation 89.9 % (95.0-99.0) L 05/11/19 04:08 PT/INR, D-dimer PT 14.3 Sec. (12.2-14.9) 04/30/19 15:23 INR 1.10 (0.87-1.13) 04/30/19 15:23 Abnormal lab findings: Abnormal Labs 04/30/19 04/30/19 04/30/19 10:12 11:32 11:32 WBC RDW 17.1 H Plt Count 84 L Lymph % (Auto) 10.9 L Gregg % (Auto) 7.4 H Lymph # 0.8 L Seg Neutrophils % 80.6 H Seg Neuts % (Manual) Lymphocytes % (Manual) Nucleated RBC % Seg Neutrophils # Man Lymphocytes # (Manual) Monocytes # (Manual) PT 28.3 H INR 2.59 H APTT ABG pH 7.347 L ABG pO2 221.9 H ABG HCO3 ABG O2 Saturation 99.3 H ABG Base Excess -2.2 L ABG Hemoglobin Oxyhemoglobin Sodium Potassium Chloride Carbon Dioxide BUN Creatinine Glucose POC Glucose Phosphorus Magnesium Troponin T NT-Pro-B Natriuret Pep Triglycerides Cholesterol LDL Cholesterol Direct HDL Cholesterol 04/30/19 04/30/19 04/30/19 14:20 15:23 18:05 WBC RDW Plt Count Lymph % (Auto) Gre[place] % (Auto) Lymph # Seg Neutrophils % Seg Neuts % (Manual) Lymphocytes % (Manual) Nucleated RBC % Seg Neutrophils # Man Lymphocytes # (Manual) Monocytes # (Manual) PT INR APTT 37.2 H ABG pH ABG pO2 79.2 L ABG HCO3 ABG O2 Saturation ABG Base Excess ABG Hemoglobin Oxyhemoglobin 94.4 L Sodium 146 H Potassium 3.2 L Chloride Carbon Dioxide BUN 39 H Creatinine 2.6 H Glucose POC Glucose Phosphorus Magnesium Troponin T 0.117 H* NT-Pro-B Natriuret Pep 93107 H Triglycerides 178 H Cholesterol 303 H LDL Cholesterol Direct 190 H HDL Cholesterol 105 H 04/30/19 05/01/19 05/01/19 22:20 00:48 04:46 WBC RDW Plt Count Lymph % (Auto) [place] % (Auto) Lymph # Seg Neutrophils % Seg Neuts % (Manual) Lymphocytes % (Manual) Nucleated RBC % Seg Neutrophils # Man Lymphocytes # (Manual) Monocytes # (Manual) PT INR APTT ABG pH ABG pO2 98.3 H ABG HCO3 ABG O2 Saturation ABG Base Excess ABG Hemoglobin Oxyhemoglobin Sodium Potassium Chloride Carbon Dioxide BUN Creatinine Glucose POC Glucose 108 H 142 H Phosphorus Magnesium Troponin T NT-Pro-B Natriuret Pep Triglycerides Cholesterol LDL Cholesterol Direct HDL Cholesterol 05/01/19 05/01/19 05/01/19 12:43 12:43 13:27 WBC RDW 16.4 H Plt Count 132 L Lymph % (Auto) [place] % (Auto) Lymph # Seg Neutrophils % Seg Neuts % (Manual) 95.0 H Lymphocytes % (Manual) 3.0 L Nucleated RBC % Seg Neutrophils # Man Lymphocytes # (Manual) 0.2 L Monocytes # (Manual) PT INR APTT ABG pH ABG pO2 ABG HCO3 ABG O2 Saturation ABG Base Excess ABG Hemoglobin Oxyhemoglobin Sodium Potassium Chloride 95.1 L Carbon Dioxide 21 L BUN 29 H Creatinine 3.2 H Glucose 137 H POC Glucose 114 H Phosphorus Magnesium Troponin T NT-Pro-B Natriuret Pep Triglycerides Cholesterol LDL Cholesterol Direct HDL Cholesterol 05/01/19 05/02/19 05/02/19 18:41 00:01 05:40 WBC RDW Plt Count Lymph % (Auto) [place] % (Auto) Lymph # Seg Neutrophils % Seg Neuts % (Manual) Lymphocytes % (Manual) Nucleated RBC % Seg Neutrophils # Man Lymphocytes # (Manual) Monocytes # (Manual) PT INR APTT ABG pH ABG pO2 ABG HCO3 ABG O2 Saturation ABG Base Excess ABG Hemoglobin Oxyhemoglobin Sodium Potassium Chloride Carbon Dioxide BUN Creatinine Glucose POC Glucose 127 H 110 H 135 H Phosphorus Magnesium Troponin T NT-Pro-B Natriuret Pep Triglycerides Cholesterol LDL Cholesterol Direct HDL Cholesterol 05/02/19 05/02/19 05/03/19 13:06 19:14 09:44 WBC RDW 17.1 H Plt Count Lymph % (Auto) [place] % (Auto) Lymph # Seg Neutrophils % Seg Neuts % (Manual) Lymphocytes % (Manual) Nucleated RBC % Seg Neutrophils # Man Lymphocytes # (Manual) Monocytes # (Manual) PT INR APTT ABG pH ABG pO2 ABG HCO3 ABG O2 Saturation ABG Base Excess ABG Hemoglobin Oxyhemoglobin Sodium Potassium Chloride Carbon Dioxide BUN Creatinine Glucose POC Glucose 152 H 117 H Phosphorus Magnesium Troponin T NT-Pro-B Natriuret Pep Triglycerides Cholesterol LDL Cholesterol Direct HDL Cholesterol 05/03/19 05/03/19 05/03/19 09:44 10:13 18:45 WBC RDW Plt Count Lymph % (Auto) [place] % (Auto) Lymph # Seg Neutrophils % Seg Neuts % (Manual) Lymphocytes % (Manual) Nucleated RBC % Seg Neutrophils # Man Lymphocytes # (Manual) Monocytes # (Manual) PT INR APTT ABG pH 7.166 L* ABG pO2 ABG HCO3 ABG O2 Saturation 94.5 L ABG Base Excess -8.8 L ABG Hemoglobin 11.6 L Oxyhemoglobin 92.4 L Sodium Potassium 6.2 H* D Chloride 93.2 L Carbon Dioxide 13 L D BUN 93 H Creatinine 7.2 H D Glucose 138 H POC Glucose 128 H Phosphorus 12.90 H Magnesium 2.70 H Troponin T NT-Pro-B Natriuret Pep Triglycerides Cholesterol LDL Cholesterol Direct HDL Cholesterol 05/03/19 05/04/19 05/04/19 19:40 01:04 03:51 WBC 11.2 H RDW 16.6 H Plt Count Lymph % (Auto) [place] % (Auto) Lymph # Seg Neutrophils % Seg Neuts % (Manual) Lymphocytes % (Manual) Nucleated RBC % Seg Neutrophils # Man Lymphocytes # (Manual) Monocytes # (Manual) PT INR APTT ABG pH ABG pO2 ABG HCO3 ABG O2 Saturation ABG Base Excess ABG Hemoglobin Oxyhemoglobin Sodium Potassium Chloride 92.7 L Carbon Dioxide BUN 26 H Creatinine 3.2 H D Glucose 129 H POC Glucose 134 H Phosphorus Magnesium Troponin T NT-Pro-B Natriuret Pep Triglycerides Cholesterol LDL Cholesterol Direct HDL Cholesterol 05/04/19 05/04/19 05/04/19 03:51 06:05 12:33 WBC RDW Plt Count Lymph % (Auto) [place] % (Auto) Lymph # Seg Neutrophils % Seg Neuts % (Manual) Lymphocytes % (Manual) Nucleated RBC % Seg Neutrophils # Man Lymphocytes # (Manual) Monocytes # (Manual) PT INR APTT ABG pH ABG pO2 ABG HCO3 ABG O2 Saturation ABG Base Excess ABG Hemoglobin Oxyhemoglobin Sodium Potassium Chloride 92.5 L Carbon Dioxide 19 L BUN 39 H Creatinine 4.3 H Glucose 148 H POC Glucose 138 H 190 H Phosphorus Magnesium Troponin T NT-Pro-B Natriuret Pep Triglycerides Cholesterol LDL Cholesterol Direct HDL Cholesterol 05/04/19 05/04/19 05/04/19 18:25 23:57 Unknown WBC RDW Plt Count Lymph % (Auto) [place] % (Auto) Lymph # Seg Neutrophils % Seg Neuts % (Manual) Lymphocytes % (Manual) Nucleated RBC % Seg Neutrophils # Man Lymphocytes # (Manual) Monocytes # (Manual) PT INR APTT ABG pH ABG pO2 ABG HCO3 ABG O2 Saturation ABG Base Excess -3.4 L ABG Hemoglobin Oxyhemoglobin 94.5 L Sodium Potassium Chloride Carbon Dioxide BUN Creatinine Glucose POC Glucose 190 H 119 H Phosphorus Magnesium Troponin T NT-Pro-B Natriuret Pep Triglycerides Cholesterol LDL Cholesterol Direct HDL Cholesterol 05/05/19 05/05/19 05/05/19 03:45 06:09 12:07 WBC RDW Plt Count Lymph % (Auto) [place] % (Auto) Lymph # Seg Neutrophils % Seg Neuts % (Manual) Lymphocytes % (Manual) Nucleated RBC % Seg Neutrophils # Man Lymphocytes # (Manual) Monocytes # (Manual) PT INR APTT ABG pH 7.456 H ABG pO2 64.8 L ABG HCO3 ABG O2 Saturation 93.6 L ABG Base Excess ABG Hemoglobin Oxyhemoglobin 91.4 L Sodium Potassium Chloride Carbon Dioxide BUN Creatinine Glucose POC Glucose 173 H 260 H Phosphorus Magnesium Troponin T NT-Pro-B Natriuret Pep Triglycerides Cholesterol LDL Cholesterol Direct HDL Cholesterol 05/05/19 05/06/19 05/06/19 18:34 00:49 04:20 WBC 12.8 H RDW 16.9 H Plt Count Lymph % (Auto) [place] % (Auto) Lymph # Seg Neutrophils % Seg Neuts % (Manual) 93.0 H Lymphocytes % (Manual) 2.0 L Nucleated RBC % 1.0 H Seg Neutrophils # Man 11.9 H Lymphocytes # (Manual) 0.3 L Monocytes # (Manual) PT INR APTT ABG pH ABG pO2 ABG HCO3 ABG O2 Saturation ABG Base Excess ABG Hemoglobin Oxyhemoglobin Sodium Potassium Chloride Carbon Dioxide BUN Creatinine Glucose POC Glucose 334 H 230 H Phosphorus Magnesium Troponin T NT-Pro-B Natriuret Pep Triglycerides Cholesterol LDL Cholesterol Direct HDL Cholesterol 05/06/19 05/06/19 05/06/19 04:20 04:20 05:39 WBC RDW Plt Count Lymph % (Auto) [place] % (Auto) Lymph # Seg Neutrophils % Seg Neuts % (Manual) Lymphocytes % (Manual) Nucleated RBC % Seg Neutrophils # Man Lymphocytes # (Manual) Monocytes # (Manual) PT INR APTT ABG pH ABG pO2 62.9 L ABG HCO3 ABG O2 Saturation 92.5 L ABG Base Excess ABG Hemoglobin Oxyhemoglobin 90.5 L Sodium Potassium Chloride 95.1 L Carbon Dioxide BUN 40 H Creatinine 3.6 H Glucose 267 H POC Glucose Phosphorus Magnesium Troponin T NT-Pro-B Natriuret Pep Triglycerides 380 H Cholesterol LDL Cholesterol Direct HDL Cholesterol 05/06/19 05/06/19 05/06/19 06:08 11:15 12:42 WBC RDW Plt Count Lymph % (Auto) [place] % (Auto) Lymph # Seg Neutrophils % Seg Neuts % (Manual) Lymphocytes % (Manual) Nucleated RBC % Seg Neutrophils # Man Lymphocytes # (Manual) Monocytes # (Manual) PT INR APTT ABG pH 7.344 L ABG pO2 56.8 L ABG HCO3 ABG O2 Saturation 85.5 L ABG Base Excess ABG Hemoglobin Oxyhemoglobin 83.8 L Sodium Potassium Chloride Carbon Dioxide BUN Creatinine Glucose POC Glucose 325 H 168 H Phosphorus Magnesium Troponin T NT-Pro-B Natriuret Pep Triglycerides Cholesterol LDL Cholesterol Direct HDL Cholesterol 05/06/19 05/07/19 05/07/19 17:30 00:33 05:25 WBC RDW Plt Count Lymph % (Auto) [place] % (Auto) Lymph # Seg Neutrophils % Seg Neuts % (Manual) Lymphocytes % (Manual) Nucleated RBC % Seg Neutrophils # Man Lymphocytes # (Manual) Monocytes # (Manual) PT INR APTT ABG pH ABG pO2 51.8 L ABG HCO3 ABG O2 Saturation 83.6 L ABG Base Excess -3.3 L ABG Hemoglobin Oxyhemoglobin 81.7 L Sodium Potassium Chloride Carbon Dioxide BUN Creatinine Glucose POC Glucose 172 H 131 H Phosphorus Magnesium Troponin T NT-Pro-B Natriuret Pep Triglycerides Cholesterol LDL Cholesterol Direct HDL Cholesterol 05/07/19 05/07/19 05/07/19 06:31 13:21 15:15 WBC RDW Plt Count Lymph % (Auto) [place] % (Auto) Lymph # Seg Neutrophils % Seg Neuts % (Manual) Lymphocytes % (Manual) Nucleated RBC % Seg Neutrophils # Man Lymphocytes # (Manual) Monocytes # (Manual) PT INR APTT ABG pH 7.317 L ABG pO2 64.0 L ABG HCO3 ABG O2 Saturation 89.7 L ABG Base Excess ABG Hemoglobin Oxyhemoglobin 87.8 L Sodium Potassium Chloride Carbon Dioxide BUN Creatinine Glucose POC Glucose 223 H 200 H Phosphorus Magnesium Troponin T NT-Pro-B Natriuret Pep Triglycerides Cholesterol LDL Cholesterol Direct HDL Cholesterol 05/07/19 05/07/19 05/07/19 18:40 19:35 21:39 WBC RDW Plt Count Lymph % (Auto) [place] % (Auto) Lymph # Seg Neutrophils % Seg Neuts % (Manual) Lymphocytes % (Manual) Nucleated RBC % Seg Neutrophils # Man Lymphocytes # (Manual) Monocytes # (Manual) PT INR APTT ABG pH ABG pO2 ABG HCO3 ABG O2 Saturation ABG Base Excess ABG Hemoglobin Oxyhemoglobin Sodium Potassium Chloride Carbon Dioxide BUN Creatinine Glucose POC Glucose 142 H 138 H Phosphorus Magnesium 1.60 L Troponin T NT-Pro-B Natriuret Pep Triglycerides Cholesterol LDL Cholesterol Direct HDL Cholesterol 05/07/19 05/08/19 05/08/19 23:49 09:32 12:31 WBC RDW Plt Count Lymph % (Auto) [place] % (Auto) Lymph # Seg Neutrophils % Seg Neuts % (Manual) Lymphocytes % (Manual) Nucleated RBC % Seg Neutrophils # Man Lymphocytes # (Manual) Monocytes # (Manual) PT INR APTT ABG pH ABG pO2 65.1 L ABG HCO3 18.7 L ABG O2 Saturation 91.9 L ABG Base Excess -5.8 L ABG Hemoglobin Oxyhemoglobin 90.1 L Sodium Potassium Chloride Carbon Dioxide BUN Creatinine Glucose POC Glucose 195 H 298 H Phosphorus Magnesium Troponin T NT-Pro-B Natriuret Pep Triglycerides Cholesterol LDL Cholesterol Direct HDL Cholesterol 05/08/19 05/08/19 05/08/19 13:54 14:44 14:44 WBC 15.3 H RDW 16.9 H Plt Count Lymph % (Auto) [place] % (Auto) Lymph # Seg Neutrophils % Seg Neuts % (Manual) Lymphocytes % (Manual) Nucleated RBC % Seg Neutrophils # Man Lymphocytes # (Manual) Monocytes # (Manual) PT INR APTT ABG pH 7.327 L ABG pO2 67.2 L ABG HCO3 18.4 L ABG O2 Saturation 91.6 L ABG Base Excess -6.8 L ABG Hemoglobin Oxyhemoglobin 89.6 L Sodium Potassium Chloride 91.3 L Carbon Dioxide 17 L BUN 64 H Creatinine 5.0 H Glucose 337 H POC Glucose Phosphorus Magnesium Troponin T NT-Pro-B Natriuret Pep Triglycerides Cholesterol LDL Cholesterol Direct HDL Cholesterol 05/08/19 05/08/19 05/09/19 17:14 23:49 05:22 WBC RDW Plt Count Lymph % (Auto) [place] % (Auto) Lymph # Seg Neutrophils % Seg Neuts % (Manual) Lymphocytes % (Manual) Nucleated RBC % Seg Neutrophils # Man Lymphocytes # (Manual) Monocytes # (Manual) PT INR APTT ABG pH ABG pO2 ABG HCO3 ABG O2 Saturation ABG Base Excess ABG Hemoglobin Oxyhemoglobin Sodium Potassium Chloride Carbon Dioxide BUN Creatinine Glucose POC Glucose 396 H 322 H 239 H Phosphorus Magnesium Troponin T NT-Pro-B Natriuret Pep Triglycerides Cholesterol LDL Cholesterol Direct HDL Cholesterol 05/09/19 05/09/19 05/09/19 07:14 07:14 11:39 WBC 13.6 H RDW 17.1 H Plt Count Lymph % (Auto) [place] % (Auto) Lymph # Seg Neutrophils % Seg Neuts % (Manual) 91.0 H Lymphocytes % (Manual) 2.0 L Nucleated RBC % 4.0 H Seg Neutrophils # Man 12.4 H Lymphocytes # (Manual) 0.3 L Monocytes # (Manual) PT INR APTT ABG pH ABG pO2 ABG HCO3 ABG O2 Saturation ABG Base Excess ABG Hemoglobin Oxyhemoglobin Sodium 135 L Potassium 5.3 H Chloride 93.5 L Carbon Dioxide 14 L BUN 85 H Creatinine 6.1 H Glucose 242 H POC Glucose 273 H Phosphorus Magnesium Troponin T NT-Pro-B Natriuret Pep Triglycerides Cholesterol LDL Cholesterol Direct HDL Cholesterol 05/09/19 05/09/19 05/10/19 17:29 21:45 00:11 WBC RDW Plt Count Lymph % (Auto) [place] % (Auto) Lymph # Seg Neutrophils % Seg Neuts % (Manual) Lymphocytes % (Manual) Nucleated RBC % Seg Neutrophils # Man Lymphocytes # (Manual) Monocytes # (Manual) PT INR APTT ABG pH ABG pO2 ABG HCO3 ABG O2 Saturation ABG Base Excess ABG Hemoglobin Oxyhemoglobin Sodium Potassium Chloride Carbon Dioxide BUN Creatinine Glucose POC Glucose 190 H 190 H 247 H Phosphorus Magnesium Troponin T NT-Pro-B Natriuret Pep Triglycerides Cholesterol LDL Cholesterol Direct HDL Cholesterol 05/10/19 05/10/19 05/10/19 05:14 05:14 05:42 WBC 21.0 H RDW 16.8 H Plt Count Lymph % (Auto) [place] % (Auto) Lymph # Seg Neutrophils % Seg Neuts % (Manual) 91.0 H Lymphocytes % (Manual) 2.0 L Nucleated RBC % 7.0 H Seg Neutrophils # Man 19.1 H Lymphocytes # (Manual) 0.4 L Monocytes # (Manual) 1.1 H PT INR APTT ABG pH ABG pO2 ABG HCO3 ABG O2 Saturation ABG Base Excess ABG Hemoglobin Oxyhemoglobin Sodium Potassium Chloride 92.2 L Carbon Dioxide 19 L BUN 111 H Creatinine 7.7 H Glucose 193 H POC Glucose 208 H Phosphorus Magnesium Troponin T NT-Pro-B Natriuret Pep Triglycerides Cholesterol LDL Cholesterol Direct HDL Cholesterol 05/10/19 05/10/19 05/11/19 12:28 17:45 00:26 WBC RDW Plt Count Lymph % (Auto) [place] % (Auto) Lymph # Seg Neutrophils % Seg Neuts % (Manual) Lymphocytes % (Manual) Nucleated RBC % Seg Neutrophils # Man Lymphocytes # (Manual) Monocytes # (Manual) PT INR APTT ABG pH ABG pO2 ABG HCO3 ABG O2 Saturation ABG Base Excess ABG Hemoglobin Oxyhemoglobin Sodium Potassium Chloride Carbon Dioxide BUN Creatinine Glucose POC Glucose 275 H 214 H 244 H Phosphorus Magnesium Troponin T NT-Pro-B Natriuret Pep Triglycerides Cholesterol LDL Cholesterol Direct HDL Cholesterol 05/11/19 05/11/19 05/11/19 04:08 04:23 04:23 WBC 20.5 H RDW 17.0 H Plt Count 134 L Lymph % (Auto) [place] % (Auto) Lymph # Seg Neutrophils % Seg Neuts % (Manual) 92.0 H Lymphocytes % (Manual) 1.0 L Nucleated RBC % 3.0 H Seg Neutrophils # Man 18.9 H Lymphocytes # (Manual) 0.2 L Monocytes # (Manual) 1.0 H PT INR APTT ABG pH ABG pO2 57.9 L ABG HCO3 ABG O2 Saturation 89.9 L ABG Base Excess ABG Hemoglobin 10.3 L Oxyhemoglobin 87.9 L Sodium Potassium Chloride 90.9 L Carbon Dioxide BUN 50 H Creatinine 4.2 H Glucose 175 H POC Glucose Phosphorus Magnesium Troponin T NT-Pro-B Natriuret Pep Triglycerides Cholesterol LDL Cholesterol Direct HDL Cholesterol 05/11/19 05:36 WBC RDW Plt Count Lymph % (Auto) [place] % (Auto) Lymph # Seg Neutrophils % Seg Neuts % (Manual) Lymphocytes % (Manual) Nucleated RBC % Seg Neutrophils # Man Lymphocytes # (Manual) Monocytes # (Manual) PT INR APTT ABG pH ABG pO2 ABG HCO3 ABG O2 Saturation ABG Base Excess ABG Hemoglobin Oxyhemoglobin Sodium Potassium Chloride Carbon Dioxide BUN Creatinine Glucose POC Glucose 147 H Phosphorus Magnesium Troponin T NT-Pro-B Natriuret Pep Triglycerides Cholesterol LDL Cholesterol Direct HDL Cholesterol
--- NOTE | 2019-05-11 09:19 | Progress Note ---
Assessment and Plan Impression: * End stage renal disease * Acute on chronic hypoxic respiratory failure --wears 2-3L NC oxygen at home * COPD exacerbation * Chronic diastolic heart failure * Hypertension by history * Hypotension * Anemia secondary to ESRD * Secondary hyperparathyroidism * Acidosis Plan: * Continue MWF schedule for HD, due tomorrow if able to tolerate * Holding bp meds, continue pressors prn for MAP>65, on low dose levo intermittently * plans for trach and peg noted, appreciate surgery input * UF as tolerated with HD * Vent management per pulmonary medicine * Dose medications for renal function * Epogen TIW prn * Nutrition per primary team Subjective Date of service: 05/11/19 Principal diagnosis: Acute resp failure,COPd exacerbation Interval history: No acute changes noted per chart review. Planning for trach and PEG soon. Objective - Exam Narrative Exam: General appearance: intubated, frail EENT: other (ETT in place) Respiratory: Present: Wheezes Cardiology: regular, S1S2 Gastrointestinal: hypoactive bowel sounds Integumentary: no rash, warm and dry Musculoskeletal: other (no edema) Neuro: sedated - Vital Signs Vital signs: Vital Signs - 12hr 05/10/19 05/10/19 05/10/19 21:57 22:00 23:00 Temperature Pulse Rate 115 H 99 H Pulse Rate [ 110 H Anterior Bilateral] Pulse Rate [ From Monitor] Respiratory 24 20 Rate Respiratory 29 H Rate [Anterior Bilateral] Blood Pressure 118/90 125/74 O2 Sat by Pulse 89 100 Oximetry 05/10/19 05/10/19 05/11/19 23:10 23:16 00:00 Temperature 98.8 F Pulse Rate 107 H 100 H Pulse Rate [ Anterior Bilateral] Pulse Rate [ From Monitor] Respiratory 24 18 Rate Respiratory Rate [Anterior Bilateral] Blood Pressure 124/64 146/77 O2 Sat by Pulse 100 98 Oximetry 05/11/19 05/11/19 05/11/19 00:31 01:00 01:35 Temperature Pulse Rate 99 H 107 H Pulse Rate [ Anterior Bilateral] Pulse Rate [ 111 H From Monitor] Respiratory 26 H 22 Rate Respiratory Rate [Anterior Bilateral] Blood Pressure 128/66 84/61 O2 Sat by Pulse 99 100 100 Oximetry 05/11/19 05/11/19 05/11/19 02:00 03:00 03:39 Temperature 98.4 F Pulse Rate 110 H 95 H Pulse Rate [ Anterior Bilateral] Pulse Rate [ From Monitor] Respiratory 19 24 Rate Respiratory Rate [Anterior Bilateral] Blood Pressure 102/69 99/68 O2 Sat by Pulse 100 99 Oximetry 05/11/19 05/11/19 05/11/19 03:57 04:00 04:17 Temperature Pulse Rate 101 H 97 H Pulse Rate [ Anterior Bilateral] Pulse Rate [ 111 H From Monitor] Respiratory 24 26 H Rate Respiratory Rate [Anterior Bilateral] Blood Pressure 97/58 112/61 O2 Sat by Pulse 98 94 99 Oximetry 05/11/19 05/11/19 05/11/19 05:00 06:00 07:00 Temperature Pulse Rate 97 H 92 H 88 Pulse Rate [ Anterior Bilateral] Pulse Rate [ From Monitor] Respiratory 25 H 25 H 24 Rate Respiratory Rate [Anterior Bilateral] Blood Pressure 109/62 163/92 102/58 O2 Sat by Pulse 100 100 Oximetry 05/11/19 05/11/19 05/11/19 07:57 08:00 09:00 Temperature Pulse Rate 99 H 98 H 91 H Pulse Rate [ 100 H Anterior Bilateral] Pulse Rate [ From Monitor] Respiratory 14 24 Rate Respiratory 26 H Rate [Anterior Bilateral] Blood Pressure 114/69 114/69 117/72 O2 Sat by Pulse 100 100 100 Oximetry - Lab 05/11/19 04:23 05/11/19 04:23 Most recent lab results ABG pH 7.441 pH Units (7.350-7.450) 05/11/19 04:08 ABG pCO2 35.4 mm Hg 05/11/19 04:08 ABG pO2 57.9 mm Hg (80.0-90.0) L 05/11/19 04:08 ABG HCO3 23.6 mmol/L (20.0-26.0) 05/11/19 04:08 ABG O2 Saturation 89.9 % (95.0-99.0) L 05/11/19 04:08 Calcium 8.5 mg/dL (8.4-10.2) 05/11/19 04:23 Phosphorus 12.90 mg/dL (2.5-4.5) H 05/03/19 09:44 Magnesium 1.60 mg/dL (1.7-2.3) L 05/07/19 19:35 Medications & Allergies - Medications Allergies/Adverse Reactions: Allergies latex Allergy (Verified 02/05/19 13:51) Hives milk Allergy (Verified 02/05/19 13:51) Rash Home Medications: Home Medications Medication Instructions Recorded Confirmed Last Taken Type Metoprolol [Lopressor TAB] 50 mg PO BID #60 tablet 01/27/18 05/03/19 04/11/19 Rx Montelukast [Singulair] 10 mg PO QPM #30 tablet 01/27/18 05/03/19 04/11/19 Rx Pravastatin [Pravachol] 40 mg PO QHS #30 tablet 01/27/18 05/03/19 04/11/19 Rx allopurinoL [Zyloprim] 100 mg PO QDAY #30 tablet 01/27/18 05/03/19 04/11/19 Rx Famotidine [Pepcid] 20 mg PO BID 06/17/18 05/03/19 04/11/19 History Fluticasone/Vilanterol [Breo 1 each IH BID #1 blst.w.dev 12/31/18 05/03/19 04/11/19 Rx Ellipta 200-25 Mcg INH] Tiotropium [place] [Spiriva 4 gm IH DAILY #1 mist.inhal 12/31/18 05/03/19 04/11/19 Rx Respimat] Aspirin EC [Halfprin EC] 81 mg PO QDAY #30 tablet. 02/18/19 05/03/19 04/11/19 Rx ISOSORBIDE MONOnitrate [Imdur ER] 30 mg PO QDAY #30 tablet 02/18/19 05/03/19 Unknown Rx glipiZIDE [Glucotrol] 5 mg PO QDAY #30 tablet 02/18/19 05/03/19 Unknown Rx ALBUTEROL NEB's [Proventil 0.083% 2.5 mg IH Q4HRT PRN #30 nebu 04/15/19 05/03/19 Unknown Rx NEBS] Furosemide [Lasix] 20 mg PO QDAY #30 tablet 04/15/19 05/03/19 Unknown Rx Ipratropium/Albuterol Sulfate 2 puff IH BID #1 unit 04/15/19 05/03/19 Unknown Rx [Combivent Respimat] Olanzapine/Fluoxetine HCl [Symbyax 1 each PO QHS #30 capsule 04/15/19 05/03/19 Unknown Rx 3-25 mg] Sodium Bicarbonate 650 mg PO BID #60 tablet 04/15/19 05/03/19 Unknown Rx amLODIPine 10 mg PO DAILY #30 tablet 04/15/19 05/03/19 Unknown Rx cefUROXime [Ceftin] 250 mg PO Q12H #14 tablet 04/15/19 05/03/19 Unknown Rx predniSONE [Deltasone] 1 tab PO QDAY #91 tab 04/15/19 05/03/19 Unknown Rx traMADoL [Ultram 50 MG tab] 50 mg PO Q8H PRN #15 tab 04/15/19 05/03/19 04/11/19 Rx Active Medications: Generic Name Dose Route Start Last Admin Trade Name Freq PRN Reason Stop Dose Admin Acetaminophen 650 mg 04/30/19 17:44 05/05/19 15:22 Tylenol PO 650 mg Q4H PRN Administration Pain MILD(1-3)/Fever >100.5/HERRMANN Albuterol 2.5 mg 04/30/19 18:32 05/02/19 04:49 Proventil IH 2.5 mg Q3H PRN Administration Shortness Of Breath Albuterol/Ipratropium 1 ampul 04/30/19 20:00 05/11/19 08:00 Duoneb *Not For Prn Use* IH Not Given QIDRT K[facility]NG Allopurinol 100 mg 04/30/19 18:00 05/10/19 10:38 Zyloprim PO 100 mg QDAY KVNG Administration Lipase/Protease/Amylase 1 each 05/04/19 14:58 Pancrejessica Gould 10,500 Unit FEEDTUBE PRN PRN For Clogged Feeding Tube Arformoterol Tartrate 15 mcg 05/01/19 08:00 05/11/19 08:00 Brovana Nebu IH 15 mcg Q12HRT K[facility]NG Administration Aspirin 81 mg 05/11/19 10:00 Baby Aspirin PO QDAY K[facility]NG Budesonide 0.5 mg 05/03/19 11:00 05/11/19 08:00 Pulmicort IH 0.5 mg Q12HRT KVNG Administration Buspirone HCl 15 mg 05/04/19 10:00 05/10/19 22:13 Buspar PO 15 mg BID KVNG Administration Famotidine 20 mg 05/10/19 10:00 05/10/19 10:37 Pepcid IV 20 mg DAILY KVNG Administration Fentanyl 50 mcg 05/11/19 10:00 Sublimaze IV Q2H PRN AGITATION Heparin Sodium (Porcine) 5,000 unit 05/04/19 22:00 05/10/19 22:13 Heparin SUB-Q 5,000 unit Q12HR K[facility]NG Administration Hydralazine HCl 5 mg 05/01/19 22:47 05/06/19 04:57 Apresoline IV 5 mg Q6HR PRN Administration SBP > 160 AND/OR DBP > 100 Hydrophilic Ointment 1 applic 05/04/19 09:42 Vaseline Lip Therapy TP Q2HR PRN Dry Lips Sodium Chloride 100 mls @ 999 mls/hr 04/30/19 13:29 Nacl 0.9% IV ALBINO PRN Hypotension Propofol 1,000 mg in 100 mls @ 1.482 mls/hr 05/04/19 09:00 05/06/19 07:50 Diprivan 10 Mg/Ml IV 0 mcg/kg/min TITR K[facility]NG 0 mls/hr Titration Protocol 5 MCG/KG/MIN Norepinephrine 4 mg in 250 mls @ 7.5 mls/hr 05/08/19 09:00 05/10/19 10:34 Levophed Drip 4 Mg/Ns 250 Ml IV 2 mcg/min TITR [facility] 7.5 mls/hr Titration Protocol 2 MCG/MIN Insulin Human Lispro 0 unit 05/05/19 18:00 05/11/19 06:09 Humalog SUB-Q Not Given Q6HR K[facility]NG Protocol Lorazepam 1 mg 05/02/19 11:08 05/10/19 21:53 Ativan IV 1 mg Q4H PRN Administration Anxiety Methylprednisolone Sodium Succinate 60 mg 05/04/19 09:00 05/11/19 02:33 Solu-Medrol IV 60 mg Q6H KVNG Administration Metoclopramide HCl 5 mg 05/10/19 14:00 05/11/19 02:35 Reglan IV 5 mg Q12H KVGN Administration Montelukast Sodium 10 mg 04/30/19 19:00 05/10/19 17:46 Singulair PO 10 mg QPM KVNG Administration Multi-Ingred Cream/Lotion/Oil/Oint 1 applic 05/04/19 09:42 Artificial Tears Ophth Oint OU Q4HR PRN Dry Eye(s) Pravastatin Sodium 40 mg 04/30/19 22:00 05/10/19 22:13 Pravachol PO 40 mg QHS KVNG Administration Simple Syrup 15 ml 05/04/19 14:58 Simple Syrup FEEDTUBE PRN PRN Hypoglycemia Simple Syrup 30 ml 05/04/19 14:58 Simple Syrup FEEDTUBE PRN PRN Hypoglycemia Sodium Bicarbonate 650 mg 04/30/19 22:00 05/10/19 22:13 Sodium Bicarbonate PO 650 mg BID KVNG Administration Sodium Bicarbonate 325 mg 05/04/19 14:58 Sodium Bicarbonate FEEDTUBE PRN PRN For Clogged Feeding Tube Sodium Chloride 10 ml 04/30/19 22:00 05/10/19 22:13 Sodium Chloride Flush Syringe 10 Ml IV 10 ml BID KVNG Administration Sodium Chloride 10 ml 04/30/19 17:44 05/01/19 03:55 Sodium Chloride Flush Syringe 10 Ml IV 10 ml PRN PRN Administration LINE FLUSH
[2019-05-11] MEDS: FAMOTIDINE 20 MG/2 ML INJ IV SCH (09:44)
[2019-05-11] MEDS: ASPIRIN 81 MG TAB CHEW PO SCH (09:44)
[2019-05-11] MEDS: allopurinoL 100 MG TAB PO SCH (09:44)
[2019-05-11] MEDS: SODIUM BICARBONATE 650 MG TAB PO SCH ×2 (09:45→21:29)
[2019-05-11] MEDS: busPIRone 10 MG TAB PO SCH ×2 (09:45→21:29)
[2019-05-11] MEDS: fentaNYL 100 MCG/2 ML INJ IV PRN ×4 (09:45→18:51)
[2019-05-11] MEDS: hydrALAZINE 20 MG/1 ML INJ IV PRN ×2 (09:52→18:52)
--- NOTE | 2019-05-11 10:10 | Consultation ---
History of Present Illness Consult date: 05/11/19 Consult reason: atrial fibrillation, pre op evaluation History of present illness: This is a 78-year old woman with multiple medical problems including a history of chronic respiratory failure, COPD on home oxygen. She has end stage renal disease and is on dialysis. She has a cardiac history of coronary artery disease with prior bypass grafting in 2006. Her latest cardiac workup was done less than 6 months ago. She had a persantine thallium stress test that reports a fixed basal lateral wall defect, no ischemia. An echocardiogram showed a left ventricular ejection fraction 45-50%. Patient presented with progressive shortness of breath, admitted 11 days ago with respiratory failure and volume overload requiring intubation on mechanical ventilation. Her presenting ECG is normal sinus rhythm, left ventricular hypertrophy and repolarization abnormalities. Hospital course complicated by hypotension, on pressors for support. Patient was extubated then required reintubation less than 24 hours later due to respiratory difficulties and d istress. She is now planned for PEG/trach placement. On 05/08, patient was noted a change in rhythm. A repeat ECG shows atrial fibrillation with a rapid ventricular rate. This was treated with intravenous metoprolol. A cardiac consultation has been requested for management of paroxysmal atrial fibrillation and risk assessment for PEG/trach placement. Past History Past Medical History: CAD, COPD, diabetes, dialysis, hypertension Past Surgical History: Other (History of coronary artery bypass surgery and also PermCath placement) Social history: no significant social history Family history: no significant family history Medications and Allergies Allergies Allergy/AdvReac Type Severity Reaction Status Date / Time latex Allergy Hives Verified 02/05/19 13:51 milk Allergy Rash Verified 02/05/19 13:51 Home Medications Medication Instructions Recorded Confirmed Last Taken Type Metoprolol [Lopressor TAB] 50 mg PO BID #60 tablet 01/27/18 05/03/19 04/11/19 Rx Montelukast [Singulair] 10 mg PO QPM #30 tablet 01/27/18 05/03/19 04/11/19 Rx Pravastatin [Pravachol] 40 mg PO QHS #30 tablet 01/27/18 05/03/19 04/11/19 Rx allopurinoL [Zyloprim] 100 mg PO QDAY #30 tablet 01/27/18 05/03/19 04/11/19 Rx Famotidine [Pepcid] 20 mg PO BID 06/17/18 05/03/19 04/11/19 History Fluticasone/Vilanterol [Breo 1 each IH BID #1 blst.w.dev 12/31/18 05/03/19 04/11/19 Rx Ellipta 200-25 Mcg INH] Tiotropium [place] [Spiriva 4 gm IH DAILY #1 mist.inhal 12/31/18 05/03/19 04/11/19 Rx Respimat] Aspirin EC [Halfprin EC] 81 mg PO QDAY #30 tablet.dr 02/18/19 05/03/19 04/11/19 Rx ISOSORBIDE MONOnitrate [Imdur ER] 30 mg PO QDAY #30 tablet 02/18/19 05/03/19 Unknown Rx glipiZIDE [Glucotrol] 5 mg PO QDAY #30 tablet 02/18/19 05/03/19 Unknown Rx ALBUTEROL NEB's [Proventil 0.083% 2.5 mg IH Q4HRT PRN #30 nebu 04/15/19 05/03/19 Unknown Rx NEBS] Furosemide [Lasix] 20 mg PO QDAY #30 tablet 04/15/19 05/03/19 Unknown Rx Ipratropium/Albuterol Sulfate 2 puff IH BID #1 unit 04/15/19 05/03/19 Unknown Rx [Combivent Respimat] Olanzapine/Fluoxetine HCl [Symbyax 1 each PO QHS #30 capsule 04/15/19 05/03/19 Unknown Rx 3-25 mg] Sodium Bicarbonate 650 mg PO BID #60 tablet 04/15/19 05/03/19 Unknown Rx amLODIPine 10 mg PO DAILY #30 tablet 04/15/19 05/03/19 Unknown Rx cefUROXime [Ceftin] 250 mg PO Q12H #14 tablet 04/15/19 05/03/19 Unknown Rx predniSONE [Deltasone] 1 tab PO QDAY #91 tab 04/15/19 05/03/19 Unknown Rx traMADoL [Ultram 50 MG tab] 50 mg PO Q8H PRN #15 tab 04/15/19 05/03/19 04/11/19 Rx Active Meds: Active Medications Acetaminophen (Tylenol) 650 mg PO Q4H PRN PRN Reason: Pain MILD(1-3)/Fever >100.5/HERRMANN Last Admin: 05/05/19 15:22 Dose: 650 mg Documented by: Albuterol (Proventil) 2.5 mg IH Q3H PRN PRN Reason: Shortness Of Breath Last Admin: 05/02/19 04:49 Dose: 2.5 mg Documented by: Albuterol/Ipratropium (Duoneb *Not For Prn Use*) 1 ampul IH QIDRT [facility] Last Admin: 05/11/19 08:00 Dose: Not Given Documented by: Allopurinol (Zyloprim) 100 mg PO QDAY [facility] Last Admin: 05/11/19 09:44 Dose: 100 mg Documented by: Lipase/Protease/Amylase (Pancreaze Dr 10,500 Unit) 1 each FEEDTUBE PRN PRN PRN Reason: For Clogged Feeding Tube Arformoterol Tartrate (Brovana Nebu) 15 mcg IH Q12HRT [facility] Last Admin: 05/11/19 08:00 Dose: 15 mcg Documented by: Aspirin (Baby Aspirin) 81 mg PO QDAY [facility] Last Admin: 05/11/19 09:44 Dose: 81 mg Documented by: Budesonide (Pulmicort) 0.5 mg IH Q12HRT [facility] Last Admin: 05/11/19 08:00 Dose: 0.5 mg Documented by: Buspirone HCl (Buspar) 15 mg PO BID [facility] Last Admin: 05/11/19 09:45 Dose: 15 mg Documented by: Famotidine (Pepcid) 20 mg IV DAILY [facility] Last Admin: 05/11/19 09:44 Dose: 20 mg Documented by: Fentanyl (Sublimaze) 50 mcg IV Q2H PRN PRN Reason: AGITATION Last Admin: 05/11/19 09:45 Dose: 50 mcg Documented by: Heparin Sodium (Porcine) (Heparin) 5,000 unit SUB-Q Q12HR [facility] Last Admin: 05/10/19 22:13 Dose: 5,000 unit Documented by: Hydralazine HCl (Apresoline) 5 mg IV Q6HR PRN PRN Reason: SBP > 160 AND/OR DBP > 100 Last Admin: 05/11/19 09:52 Dose: 5 mg Documented by: Hydrophilic Ointment (Vaseline Lip Therapy) 1 applic TP Q2HR PRN PRN Reason: Dry Lips Sodium Chloride (Nacl 0.9%) 100 mls @ 999 mls/hr IV ALBINO PRN PRN Reason: Hypotension Propofol (Diprivan 10 Mg/Ml) 1,000 mg in 100 mls @ 1.482 mls/hr IV TITR [facility]; Protocol Last Titration: 05/06/19 07:50 Dose: 0 mcg/kg/min, 0 mls/hr Documented by: Norepinephrine (Levophed Drip 4 Mg/Ns 250 Ml) 4 mg in 250 mls @ 7.5 mls/hr IV TITR [facility]; Protocol Last Titration: 05/11/19 09:26 Dose: Infused Documented by: Insulin Human Lispro (Humalog) 0 unit SUB-Q Q6HR [facility]; Protocol Last Admin: 05/11/19 06:09 Dose: Not Given Documented by: Lorazepam (Ativan) 1 mg IV Q4H PRN PRN Reason: Anxiety Last Admin: 05/10/19 21:53 Dose: 1 mg Documented by: Methylprednisolone Sodium Succinate (Solu-Medrol) 60 mg IV Q6H [facility] Last Admin: 05/11/19 09:52 Dose: 60 mg Documented by: Metoclopramide HCl (Reglan) 5 mg IV Q12H [facility] Last Admin: 05/11/19 02:35 Dose: 5 mg Documented by: Montelukast Sodium (Singulair) 10 mg PO QPM [facility] Last Admin: 05/10/19 17:46 Dose: 10 mg Documented by: Multi-Ingred Cream/Lotion/Oil/Oint (Artificial Tears Ophth Oint) 1 applic OU Q4HR PRN PRN Reason: Dry Eye(s) Pravastatin Sodium (Pravachol) 40 mg PO QHS [facility] Last Admin: 05/10/19 22:13 Dose: 40 mg Documented by: Simple Syrup (Simple Syrup) 15 ml FEEDTUBE PRN PRN PRN Reason: Hypoglycemia Simple Syrup (Simple Syrup) 30 ml FEEDTUBE PRN PRN PRN Reason: Hypoglycemia Sodium Bicarbonate (Sodium Bicarbonate) 650 mg PO BID [facility] Last Admin: 05/11/19 09:45 Dose: 650 mg Documented by: Sodium Bicarbonate (Sodium Bicarbonate) 325 mg FEEDTUBE PRN PRN PRN Reason: For Clogged Feeding Tube Sodium Chloride (Sodium Chloride Flush Syringe 10 Ml) 10 ml IV BID [facility] Last Admin: 05/11/19 09:46 Dose: 10 ml Documented by: Sodium Chloride (Sodium Chloride Flush Syringe 10 Ml) 10 ml IV PRN PRN PRN Reason: LINE FLUSH Last Admin: 05/01/19 03:55 Dose: 10 ml Documented by: Physical Examination Vital Signs Pulse Resp 102 H 44 H 04/30/19 09:42 04/30/19 09:42 General appearance: other (intubated on the vent) Cardiac: Positive: Reg Rate and Rhythm Results 05/11/19 04:23 05/11/19 04:23 CBC 05/11/19 Range/Units 04:23 WBC 20.5 H (4.5-11.0) K/mm3 RBC 3.79 (3.65-5.03) M/mm3 Hgb 11.0 (10.1-14.3) gm/dl Hct 34.0 (30.3-42.9) % Plt Count 134 L (140-440) K/mm3 Comprehensive Metabolic Panel 05/11/19 Range/Units 04:23 Sodium 137 (137-145) mmol/L Potassium 4.3 (3.6-5.0) mmol/L Chloride 90.9 L (98-107) mmol/L Carbon Dioxide 23 (22-30) mmol/L BUN 50 H (7-17) mg/dL Creatinine 4.2 H (0.7-1.2) mg/dL Glucose 175 H (65-100) mg/dL Calcium 8.5 (8.4-10.2) mg/dL Assessment and Plan Cardiac risk assessment Paroxysmal Afib Respiratory failure -intubated on the vent ESRD on hemodialysis COPD on home oxygen Hx of coronary artery disease s/p CABG in 2006 Mild cardiomyopathy echocardiogram done 01/2018 reports an ejection fraction of 40-45%. echocardiogram 12/2018 reports an ejection fraction 45-50%. MPI 12/2018 - fixed basal lateral wall defect, no ischemia Hyperlipidemia History of DVT -not on anticoagulation secondary to hematuria
--- NOTE | 2019-05-11 11:11 | Progress Note ---
Assessment and Plan Assessment and plan: Patient is a 78 yo AA woman with a history of NC, Diastolic CHF, CAD S/P CABG, DM, Asthma, OA, Anxiety disorder, Chronic Respiratory Failure on 2-3 L Home oxygen due to end stage COPD and ESRD on HD(M,W,F) who presented to [facility] ED on 04/30/2019 with SOB and wheezing for 2 days. Acute on chronic hypoxic respiratory failure >96 hours: trying to wean, CCM Atrial Fibrillation with RVR: metoprolol IV with holding parameters, Cardiology consulted Acute COPD exacerbation: Continue neb treatments, antibiotics, steroids and oxygen supplement Anxiety disorder: Continue Klonopin Hyperglycemia: Continue to monitor likely induced by steroid use. End-stage renal disease: On hemodialysis Friday and Friday, Nephrology note reviewed Acute metabolic acidosis: monitor BMP Chronic diastolic heart failure, Hypertension, Anemia of chronic kidney disease: monitor CBC DVT ppx: sq heparin 05/06: Discussed with cotton classer aide plan is for extubation today. Continue management. 05/07: Discussed with family and cotton classer aide, will proceed with re-intubation and possible plan for Trach and PEG. Daughter informs me that the patient is very anxious and believes that this hampers extubation. Stated that she had discussed with cotton classer aide to reintubate the patient if she failed extubation. She does understand the process of weaning from ventilation. 05/08: Hyperkalemia, Nephrology managing 05/09: Afib, will optimize, and plan for trach and PEG. Cardiology consult. Pulmonary adjusting vent. No changes clinically. Discussed with Surgery, will plan for Trach and Peg 05/11/19: I took over care on Day 11. Still trying to wean vent and vasopressor. Awaiting PEG and trach. Restraints renewed, CCT 32 minutes, History Interval history: Patient was seen and examined. Follow-up on current diagnosis of Afib with RVR. Overnight uneventful as no events directly reported to me. Patient is intubated Imaging, nursing note, chart, labs and old chart reviewed. Hospitalist Physical - Physical exam Narrative exam: Gen: critically ill HEENT: NCAT, ETT in place Neck: supple, no adenopathy, no thyromegaly, no JVD CVS/Heart: irregular irregular, normal S1S2, pulses present bilaterally Chest/Lungs: diminished Symmetrical chest expansion, good air entry bilaterally GI/Abdomen: soft, NTND, good bowel sounds, no guarding or rebound /Bladder: no suprapubic tenderness, no CVA or paraspinal tenderness Extermity/Skin: no c/c/e, no obvious rash MSK: intubated Neuro: intubated Psych: intubated - Constitutional Vitals: Temp Pulse Resp BP Pulse Ox 98.6 F 106 H 21 194/90 100 05/11/19 08:00 05/11/19 09:52 05/11/19 09:45 05/11/19 09:52 05/11/19 09:00 ROB score - Rob Score Age > 65: (1) Yes Aspirin use within the Past 7 Days: (1) Yes 3 or more CAD Risk Factors: (1) Yes 2 or more Angina events in past 24 hrs: (0) No Known CAD with more than 50% Stenosis: (0) No Elevated Cardiac Markers: (0) No ST Deviation Greater than 0.5mm: (0) No ROB Score: 3 Results - Labs CBC & Chem 7: 05/11/19 04:23 05/11/19 04:23 Labs: Laboratory Last Values WBC 20.5 K/mm3 (4.5-11.0) H 05/11/19 04:23 RBC 3.79 M/mm3 (3.65-5.03) 05/11/19 04:23 Hgb 11.0 gm/dl (10.1-14.3) 05/11/19 04:23 Hct 34.0 % (30.3-42.9) 05/11/19 04:23 MCV 90 fl (79-97) 05/11/19 04:23 MCH 29 pg (28-32) 05/11/19 04:23 MCHC 33 % (30-34) 05/11/19 04:23 RDW 17.0 % (13.2-15.2) H 05/11/19 04:23 Plt Count 134 K/mm3 (140-440) L 05/11/19 04:23 Lymph % (Auto) 10.9 % (13.4-35.0) L 04/30/19 11:32 [place] % (Auto) 7.4 % (0.0-7.3) H 04/30/19 11:32 Eos % (Auto) 0.4 % (0.0-4.3) 04/30/19 11:32 Baso % (Auto) 0.7 % (0.0-1.8) 04/30/19 11:32 Lymph # 0.8 K/mm3 (1.2-5.4) L 04/30/19 11:32 Aurora # 0.5 K/mm3 (0.0-0.8) 04/30/19 11:32 Eos # 0.0 K/mm3 (0.0-0.4) 04/30/19 11:32 Baso # 0.1 K/mm3 (0.0-0.1) 04/30/19 11:32 Add Manual Diff Complete 05/11/19 04:23 Total Counted 100 05/11/19 04:23 Seg Neutrophils % Retrieval Specialist 05/11/19 04:23 Seg Neuts % (Manual) 92.0 % (40.0-70.0) H 05/11/19 04:23 Band Neutrophils % 2.0 % 05/11/19 04:23 Lymphocytes % (Manual) 1.0 % (13.4-35.0) L 05/11/19 04:23 Reactive Lymphs % (Man) 0 % 05/11/19 04:23 Monocytes % (Manual) 5.0 % (0.0-7.3) 05/11/19 04:23 Eosinophils % (Manual) 0 % (0.0-4.3) 05/11/19 04:23 Basophils % (Manual) 0 % (0.0-1.8) 05/11/19 04:23 Metamyelocytes % 0 % 05/11/19 04:23 Myelocytes % 0 % 05/11/19 04:23 Promyelocytes % 0 % 05/11/19 04:23 Blast Cells % 0 % 05/11/19 04:23 Nucleated RBC % 3.0 % (0.0-0.9) H 05/11/19 04:23 Seg Neutrophils # 6.0 K/mm3 (1.8-7.7) 04/30/19 11:32 Seg Neutrophils # Man 18.9 K/mm3 (1.8-7.7) H 05/11/19 04:23 Band Neutrophils # 0.4 K/mm3 05/11/19 04:23 Lymphocytes # (Manual) 0.2 K/mm3 (1.2-5.4) L 05/11/19 04:23 Abs React Lymphs (Man) 0.0 K/mm3 05/11/19 04:23 Monocytes # (Manual) 1.0 K/mm3 (0.0-0.8) H 05/11/19 04:23 Eosinophils # (Manual) 0.0 K/mm3 (0.0-0.4) 05/11/19 04:23 Basophils # (Manual) 0.0 K/mm3 (0.0-0.1) 05/11/19 04:23 Metamyelocytes # 0.0 K/mm3 05/11/19 04:23 Myelocytes # 0.0 K/mm3 05/11/19 04:23 Promyelocytes # 0.0 K/mm3 05/11/19 04:23 Blast Cells # 0.0 K/mm3 05/11/19 04:23 WBC Morphology Not Reportable 05/11/19 04:23 Hypersegmented Neuts Not Reportable 05/11/19 04:23 Hyposegmented Neuts Not Reportable 05/11/19 04:23 Hypogranular Neuts Not Reportable 05/11/19 04:23 Smudge Cells Not Reportable 05/11/19 04:23 Toxic Granulation Not Reportable 05/11/19 04:23 Toxic Vacuolation Not Reportable 05/11/19 04:23 Dohle Bodies Not Reportable 05/11/19 04:23 Pelger-Huet Anomaly Not Reportable 05/11/19 04:23 Ariel Rods Not Reportable 05/11/19 04:23 Platelet Estimate Consistent w auto 05/11/19 04:23 Clumped Platelets Not Reportable 05/11/19 04:23 Plt Clumps, EDTA Not Reportable 05/11/19 04:23 Large Platelets Not Reportable 05/11/19 04:23 Giant Platelets Not Reportable 05/11/19 04:23 Platelet Satelliting Not Reportable 05/11/19 04:23 Plt Morphology Comment Not Reportable 05/11/19 04:23 RBC Morphology Not Reportable 05/11/19 04:23 Dimorphic RBCs Not Reportable 05/11/19 04:23 Polychromasia Not Reportable 05/11/19 04:23 Hypochromasia Not Reportable 05/11/19 04:23 Poikilocytosis Few 05/11/19 04:23 Anisocytosis Few 05/11/19 04:23 Microcytosis Not Reportable 05/11/19 04:23 Macrocytosis Not Reportable 05/11/19 04:23 Spherocytes Not Reportable 05/11/19 04:23 Pappenheimer Bodies Not Reportable 05/11/19 04:23 Sickle Cells Not Reportable 05/11/19 04:23 Target Cells Not Reportable 05/11/19 04:23 Tear Drop Cells Rare 05/11/19 04:23 Ovalocytes Not Reportable 05/11/19 04:23 Helmet Cells Not Reportable 05/11/19 04:23 Edwards-Suarez Bodies Not Reportable 05/11/19 04:23 [place] Rings Not Reportable 05/11/19 04:23 Channing Cells Not Reportable 05/11/19 04:23 Bite Cells Not Reportable 05/11/19 04:23 Crenated Cell Not Reportable 05/11/19 04:23 Elliptocytes Rare 05/11/19 04:23 Acanthocytes (Spur) Not Reportable 05/11/19 04:23 Rouleaux Not Reportable 05/11/19 04:23 Hemoglobin C Crystals Not Reportable 05/11/19 04:23 Schistocytes Not Reportable 05/11/19 04:23 Malaria parasites Not Reportable 05/11/19 04:23 Garland Bodies Not Reportable 05/11/19 04:23 Hem Pathologist Commnt No 05/11/19 04:23 PT 14.3 Sec. (12.2-14.9) 04/30/19 15:23 INR 1.10 (0.87-1.13) 04/30/19 15:23 APTT 37.2 Sec. (24.2-36.6) H 04/30/19 15:23 ABG pH 7.441 pH Units (7.350-7.450) 05/11/19 04:08 ABG pCO2 35.4 mm Hg 05/11/19 04:08 ABG pO2 57.9 mm Hg (80.0-90.0) L 05/11/19 04:08 ABG HCO3 23.6 mmol/L (20.0-26.0) 05/11/19 04:08 ABG O2 Saturation 89.9 % (95.0-99.0) L 05/11/19 04:08 ABG O2 Content 12.7 (0.0-44) 05/11/19 04:08 ABG Base Excess -0.2 mmol/L (-2.0-3.0) 05/11/19 04:08 ABG Hemoglobin 10.3 gm/dl (12.0-16.0) L 05/11/19 04:08 ABG Carboxyhemoglobin 1.5 % (0.0-5.0) 05/11/19 04:08 ABG Methemoglobin 0.6 % (0.0-1.5) 05/11/19 04:08 Oxyhemoglobin 87.9 % (95.0-99.0) L 05/11/19 04:08 FiO2 30 % 05/11/19 04:08 Sodium 137 mmol/L (137-145) 05/11/19 04:23 Potassium 4.3 mmol/L (3.6-5.0) 05/11/19 04:23 Chloride 90.9 mmol/L (98-107) L 05/11/19 04:23 Carbon Dioxide 23 mmol/L (22-30) 05/11/19 04:23 Anion Gap 27 mmol/L 05/11/19 04:23 BUN 50 mg/dL (7-17) H 05/11/19 04:23 Creatinine 4.2 mg/dL (0.7-1.2) H 05/11/19 04:23 Estimated GFR 12 ml/min 05/11/19 04:23 BUN/Creatinine Ratio 12 % 05/11/19 04:23 Glucose 175 mg/dL (65-100) H 05/11/19 04:23 POC Glucose 147 (70-105) H 05/11/19 05:36 Hemoglobin A1c 5.6 % (4-6) 04/30/19 11:32 Calcium 8.5 mg/dL (8.4-10.2) 05/11/19 04:23 Phosphorus 12.90 mg/dL (2.5-4.5) H 05/03/19 09:44 Magnesium 1.60 mg/dL (1.7-2.3) L 05/07/19 19:35 Total Bilirubin 0.40 mg/dL (0.1-1.2) 05/01/19 12:43 AST 39 units/L (5-40) 05/01/19 12:43 ALT 23 units/L (7-56) 05/01/19 12:43 Alkaline Phosphatase 102 units/L (35-129) 05/01/19 12:43 Total Creatine Kinase Cancelled 04/30/19 14:20 CK-MB (CK-2) Cancelled 04/30/19 14:20 CK-MB (CK-2) Rel Index Cancelled 04/30/19 14:20 Troponin T 0.117 ng/mL (0.00-0.029) H* 04/30/19 14:20 NT-Pro-B Natriuret Pep 20713 pg/mL (0-900) H 04/30/19 14:20 Total Protein 6.6 g/dL (6.3-8.2) 05/01/19 12:43 Albumin 4.0 g/dL (3.9-5) 05/01/19 12:43 Albumin/Globulin Ratio 1.5 % 05/01/19 12:43 Triglycerides 380 mg/dL (2-149) H 05/06/19 04:20 Cholesterol 303 mg/dL (50-199) H 04/30/19 14:20 LDL Cholesterol Direct 190 mg/dL (50-130) H 04/30/19 14:20 HDL Cholesterol 105 mg/dL (40-59) H 04/30/19 14:20 Cholesterol/HDL Ratio 2.88 % 04/30/19 14:20 Hepatitis A IgM Ab Non-reactive (NonReactive) 04/30/19 14:20 Hep Bs Antigen Non-reactive (Negative) 04/30/19 14:20 Hep B Core IgM Ab Non-reactive (NonReactive) 04/30/19 14:20 Hepatitis C Antibody Non-reactive (NonReactive) 04/30/19 14:20 Microbiology: Microbiology 05/10/19 17:20 Tracheal Aspirate Sputum Culture - Preliminary [place]/IV: Voiding Method Diaper IV Catheter Type [Left Mid-line Subclavian] IV Catheter Type [Right Upper INT / Saline Lock arm] IV Catheter Type [Right Hand] INT / Saline Lock IV Catheter Type [Left Forearm INT / Saline Lock ] IV Catheter Type [Right VAS Cath Internal Jugular] Active Medications - Current Medications Current Medications: Generic Name Dose Route Start Last Admin Trade Name Freq PRN Reason Stop Dose Admin Acetaminophen 650 mg 04/30/19 17:44 05/05/19 15:22 Tylenol PO 650 mg Q4H PRN Administration Pain MILD(1-3)/Fever >100.5/HERRMANN Albuterol 2.5 mg 04/30/19 18:32 05/02/19 04:49 Proventil IH 2.5 mg Q3H PRN Administration Shortness Of Breath Albuterol/Ipratropium 1 ampul 04/30/19 20:00 05/11/19 08:00 Duoneb *Not For Prn Use* IH Not Given QIDRT KVNG Allopurinol 100 mg 04/30/19 18:00 05/11/19 09:44 Zyloprim PO 100 mg QDAY KVNG Administration Lipase/Protease/Amylase 1 each 05/04/19 14:58 Pancrejessica Gould 10,500 Unit FEEDTUBE PRN PRN For Clogged Feeding Tube Arformoterol Tartrate 15 mcg 05/01/19 08:00 05/11/19 08:00 Brovana Nebu IH 15 mcg Q12HRT KVNG Administration Aspirin 81 mg 05/11/19 10:00 05/11/19 09:44 Baby Aspirin PO 81 mg QDAY KVNG Administration Budesonide 0.5 mg 05/03/19 11:00 05/11/19 08:00 Pulmicort IH 0.5 mg Q12HRT KVNG Administration Buspirone HCl 15 mg 05/04/19 10:00 05/11/19 09:45 Buspar PO 15 mg BID KVNG Administration Famotidine 20 mg 05/10/19 10:00 05/11/19 09:44 Pepcid IV 20 mg DAILY KVNG Administration Fentanyl 50 mcg 05/11/19 10:00 05/11/19 09:45 Sublimaze IV 50 mcg Q2H PRN Administration AGITATION Heparin Sodium (Porcine) 5,000 unit 05/04/19 22:00 05/10/19 22:13 Heparin SUB-Q 5,000 unit Q12HR KVNG Administration Hydralazine HCl 5 mg 05/01/19 22:47 05/11/19 09:52 Apresoline IV 5 mg Q6HR PRN Administration SBP > 160 AND/OR DBP > 100 Hydrophilic Ointment 1 applic 05/04/19 09:42 Vaseline Lip Therapy TP Q2HR PRN Dry Lips Sodium Chloride 100 mls @ 999 mls/hr 04/30/19 13:29 Nacl 0.9% IV ALBINO PRN Hypotension Propofol 1,000 mg in 100 mls @ 1.482 mls/hr 05/04/19 09:00 05/06/19 07:50 Diprivan 10 Mg/Ml IV 0 mcg/kg/min TITR KVNG 0 mls/hr Titration Protocol 5 MCG/KG/MIN Norepinephrine 4 mg in 250 mls @ 7.5 mls/hr 05/08/19 09:00 05/11/19 09:26 Levophed Drip 4 Mg/Ns 250 Ml IV Infused TITR KVNG Titration Protocol 2 MCG/MIN Insulin Human Lispro 0 unit 05/05/19 18:00 05/11/19 06:09 Humalog SUB-Q Not Given Q6HR [facility] Protocol Lorazepam 1 mg 05/02/19 11:08 05/10/19 21:53 Ativan IV 1 mg Q4H PRN Administration Anxiety Methylprednisolone Sodium Succinate 60 mg 05/04/19 09:00 05/11/19 09:52 Solu-Medrol IV 60 mg Q6H KVNG Administration Metoclopramide HCl 5 mg 05/10/19 14:00 05/11/19 02:35 Reglan IV 5 mg Q12H KVNG Administration Montelukast Sodium 10 mg 04/30/19 19:00 05/10/19 17:46 Singulair PO 10 mg QPM KVNG Administration Multi-Ingred Cream/Lotion/Oil/Oint 1 applic 05/04/19 09:42 Artificial Tears Ophth Oint OU Q4HR PRN Dry Eye(s) Pravastatin Sodium 40 mg 04/30/19 22:00 05/10/19 22:13 Pravachol PO 40 mg QHS KVNG Administration Simple Syrup 15 ml 05/04/19 14:58 Simple Syrup FEEDTUBE PRN PRN Hypoglycemia Simple Syrup 30 ml 05/04/19 14:58 Simple Syrup FEEDTUBE PRN PRN Hypoglycemia Sodium Bicarbonate 650 mg 04/30/19 22:00 05/11/19 09:45 Sodium Bicarbonate PO 650 mg BID KVNG Administration Sodium Bicarbonate 325 mg 05/04/19 14:58 Sodium Bicarbonate FEEDTUBE PRN PRN For Clogged Feeding Tube Sodium Chloride 10 ml 04/30/19 22:00 05/11/19 09:46 Sodium Chloride Flush Syringe 10 Ml IV 10 ml BID KVNG Administration Sodium Chloride 10 ml 04/30/19 17:44 05/01/19 03:55 Sodium Chloride Flush Syringe 10 Ml IV 10 ml PRN PRN Administration LINE FLUSH Nutrition/Malnutrition Assess - Dietary Evaluation Nutrition/Malnutrition Findings: Nutrition Notes Start: 05/04/19 11:09 Freq: Status: Active Protocol: Document 05/10/19 12:19 LM (Rec: 05/10/19 12:21 LM [email or web address]) Nutrition Notes Initial or Follow up Brief Note Subjective/Other Information TF on hold due to pt vomiting. Nutrition Intervention Follow-Up By: 05/12/19 Additional Comments F/U for TF restart/tolerance
[2019-05-11] MEDS ORDERED: AMIODARONE 300 MG in DEXTROSE 5% IN WATER 100 ML IV ONE (12:00)
[2019-05-11] MEDS: dilTIAZem 30 MG TAB PO SCH ×2 (12:07→18:01)
--- NOTE | 2019-05-11 12:08 | Progress Note ---
Assessment and Plan 78 yo F with 1. VDRF 2. hypotension 3. Afib 4. leukocytosis 5. n/v, TF intolerance 6. ESRD Vent settings: PEEP 8, FIO2 35% Obs series 05/09 - no obstruction Plan: 1. Cardiology consult noted and Yang appreciated. Pt deemed moderate cardiac risk 2. c/w Reglan IV. Pt on TF and tolerating 3. vent management per ICU team 4. Pt BP improved - off pressors 5. On levaquin 6. N.p.o. past midnight tonight 7. Patient scheduled for trach and PEG tomorrow 05/12/2019 at 12 PM. Discussed with daughter Sheron Howard over telephone and questions answered. Consent obtained 8. Discussed with HD RN as patient scheduled for HD tomorrow. HD will be done after procedure. Plan discussed with patient's RN Mateus. Thank you, please call with questions. Subjective Date of service: 05/11/19 Narrative: Pt seen and examined. No overnight events per notes. Tolerating TF. Objective Vital Signs - 12hr 05/11/19 05/11/19 05/11/19 00:31 01:00 01:35 Temperature Pulse Rate 99 H 107 H Pulse Rate [ Anterior Bilateral] Pulse Rate [ 111 H From Monitor] Respiratory 26 H 22 Rate Respiratory Rate [Anterior Bilateral] Blood Pressure 128/66 84/61 O2 Sat by Pulse 99 100 100 Oximetry 05/11/19 05/11/19 05/11/19 02:00 03:00 03:39 Temperature 98.4 F Pulse Rate 110 H 95 H Pulse Rate [ Anterior Bilateral] Pulse Rate [ From Monitor] Respiratory 19 24 Rate Respiratory Rate [Anterior Bilateral] Blood Pressure 102/69 99/68 O2 Sat by Pulse 100 99 Oximetry 05/11/19 05/11/19 05/11/19 03:57 04:00 04:17 Temperature Pulse Rate 101 H 97 H Pulse Rate [ Anterior Bilateral] Pulse Rate [ 111 H From Monitor] Respiratory 24 26 H Rate Respiratory Rate [Anterior Bilateral] Blood Pressure 97/58 112/61 O2 Sat by Pulse 98 94 99 Oximetry 05/11/19 05/11/19 05/11/19 05:00 06:00 07:00 Temperature Pulse Rate 97 H 92 H 88 Pulse Rate [ Anterior Bilateral] Pulse Rate [ From Monitor] Respiratory 25 H 25 H 24 Rate Respiratory Rate [Anterior Bilateral] Blood Pressure 109/62 163/92 102/58 O2 Sat by Pulse 100 100 Oximetry 05/11/19 05/11/19 05/11/19 07:57 08:00 09:00 Temperature 98.6 F Pulse Rate 99 H 98 H 91 H Pulse Rate [ 100 H Anterior Bilateral] Pulse Rate [ 115 H From Monitor] Respiratory 24 24 Rate Respiratory 26 H Rate [Anterior Bilateral] Blood Pressure 114/69 114/69 117/72 O2 Sat by Pulse 100 98 100 Oximetry 05/11/19 05/11/19 05/11/19 09:45 09:52 10:00 Temperature Pulse Rate 106 H 108 H Pulse Rate [ Anterior Bilateral] Pulse Rate [ From Monitor] Respiratory 21 20 Rate Respiratory Rate [Anterior Bilateral] Blood Pressure 194/90 194/102 O2 Sat by Pulse 100 Oximetry 05/11/19 05/11/19 11:00 12:07 Temperature Pulse Rate 116 H 113 H Pulse Rate [ Anterior Bilateral] Pulse Rate [ From Monitor] Respiratory 25 H Rate Respiratory Rate [Anterior Bilateral] Blood Pressure 145/70 138/69 O2 Sat by Pulse 98 Oximetry - General physical appearance Narrative Exam: Gen: Intubated, agitated on vent ENT: ETT, OGT in place CV: s1, S2+ tachy Resp: no wheezes Abd; soft, NT, ND Ext: no c/c/e - Labs 05/11/19 04:23 05/11/19 04:23 Diabetes panel 05/11/19 Range/Units 04:23 Sodium 137 (137-145) mmol/L Potassium 4.3 (3.6-5.0) mmol/L Chloride 90.9 L (98-107) mmol/L Carbon Dioxide 23 (22-30) mmol/L BUN 50 H (7-17) mg/dL Creatinine 4.2 H (0.7-1.2) mg/dL Glucose 175 H (65-100) mg/dL Calcium 8.5 (8.4-10.2) mg/dL Calcium panel 05/11/19 Range/Units 04:23 Calcium 8.5 (8.4-10.2) mg/dL Pituitary panel 05/11/19 Range/Units 04:23 Sodium 137 (137-145) mmol/L Potassium 4.3 (3.6-5.0) mmol/L Chloride 90.9 L (98-107) mmol/L Carbon Dioxide 23 (22-30) mmol/L BUN 50 H (7-17) mg/dL Creatinine 4.2 H (0.7-1.2) mg/dL Glucose 175 H (65-100) mg/dL Calcium 8.5 (8.4-10.2) mg/dL Adrenal panel 05/11/19 Range/Units 04:23 Sodium 137 (137-145) mmol/L Potassium 4.3 (3.6-5.0) mmol/L Chloride 90.9 L (98-107) mmol/L Carbon Dioxide 23 (22-30) mmol/L BUN 50 H (7-17) mg/dL Creatinine 4.2 H (0.7-1.2) mg/dL Glucose 175 H (65-100) mg/dL Calcium 8.5 (8.4-10.2) mg/dL
--- NOTE | 2019-05-11 14:02 | Anesthesia Consultation ---
Anesthesia Consult and Med Hx Date of service: 05/12/19 - Pulmonary Exam CTA: No (Ollie. wheezing noted) - Pre-Operative Health Status ASA Pre-Surgery Classification: ASA4 Proposed Anesthetic Plan: IV Sedation - Pulmonary Hx Smoking: Yes (former smoker) Hx Asthma: Yes Hx Respiratory Symptoms: Yes SOB: Yes COPD: Yes (2L at home) Home Oxygen Therapy: Yes Hx Pneumonia: No Hx Sleep Apnea: No - Cardiovascular System Hx Hypertension: Yes (usu high per pt.) Hx Coronary Artery Disease: Yes (+ CHF; s/p CABG 2007) Hx Heart Attack/AMI: Yes Hx Angina: No Hx Pacemaker: No Hx Internal Defibrillator: No Hx Peripheral Vascular Disease: Yes - Central Nervous System CVA: Yes Hx Psychiatric Problems: No - Gastrointestinal Hx Gastroesophageal Reflux Disease: Yes (CONTROLLED W/ MEDS) - Endocrine Hx Renal Disease: Yes (right VAS cath, M, W, F) Hx End Stage Renal Disease: No Hx Non-Insulin Dependent Diabetes: Yes (NO MEDS, diet controlled) Hx Thyroid Disease: No - Hematic Hx Anemia: No - Other Systems Hx Substance Use: Yes (DENIES CURRENT USE;) Hx Cancer: No Hx Obesity: No
--- NOTE | 2019-05-11 14:13 | Anesthesia Consultation ---
Anesthesia Consult and Med Hx Date of service: 05/12/19 - Pulmonary Exam CTA: No (Ollie. Wheezing) - Pre-Operative Health Status ASA Pre-Surgery Classification: ASA4 Proposed Anesthetic Plan: IV Sedation - Pulmonary Hx Smoking: Yes (former smoker) Hx Asthma: Yes Hx Respiratory Symptoms: Yes SOB: Yes COPD: Yes (2L at home) Home Oxygen Therapy: Yes Hx Pneumonia: No Hx Sleep Apnea: No - Cardiovascular System Hx Hypertension: Yes (usu high per pt.) Hx Coronary Artery Disease: Yes (+ CHF; s/p CABG 2007) Hx Heart Attack/AMI: Yes Hx Angina: No Hx Cardia Arrhythmia: Yes (AFib/Tachycardia) Hx Pacemaker: No Hx Internal Defibrillator: No Hx Peripheral Vascular Disease: Yes - Central Nervous System CVA: Yes Hx Psychiatric Problems: Yes (Anxiety Disorder) - Gastrointestinal Hx Gastroesophageal Reflux Disease: Yes (CONTROLLED W/ MEDS) - Endocrine Hx Renal Disease: Yes (right VAS cath, M, W, F) Hx End Stage Renal Disease: Yes Hx Non-Insulin Dependent Diabetes: Yes (NO MEDS, diet controlled) Hx Thyroid Disease: No - Hematic Hx Anemia: No - Other Systems Hx Substance Use: Yes (DENIES CURRENT USE;) Hx Cancer: No Hx Obesity: No - Additional Comments Anesthesia Medical History Comments: Kofi is intubated and all information culled from record. H/H- 12.; K-4.5
[2019-05-11] MEDS: MONTELUKAST 10 MG TAB PO SCH (18:01)
[2019-05-11] MEDS: PRAVASTATIN 40 MG TAB PO SCH (21:29)
[2019-05-12] MEDS: dilTIAZem 30 MG TAB PO SCH ×4 (00:06→18:40)
[2019-05-12] MEDS: methylPREDNISolone Sod Succinate 125 MG/2 ML INJ IV SCH ×4 (02:21→22:34)
[2019-05-12] MEDS: METOCLOPRAMIDE 10 MG/2 ML INJ IV SCH ×2 (02:21→15:03)
[2019-05-12 05:02] LABS: ABG HCO3 22.7 mmol/L (20.0-26.0); ABG Methemoglobin 0.7 % (0.0-1.5); ABG PCO2 38.5 mm Hg; ABG PH 7.388 pH Units (7.350-7.450); ABG PO2 79.4 mm Hg (80.0-90.0)
[2019-05-12 05:02] LABS: Hematocrit 33.1 % (30.3-42.9); Hemoglobin 10.5 gm/dl (10.1-14.3); Mean Corpuscular HGB Conc 32 % (30-34); Mean Corpuscular Volume 90 fl (79-97); Platelet Count 119 K/mm3 (140-440); Red Blood Count 3.68 M/mm3 (3.65-5.03)
[2019-05-12 05:38] LABS: Calcium 8.4 mg/dL (8.4-10.2)
[2019-05-12] MEDS: INSULIN LISPRO 100 UNIT/ML SUB-Q SCH ×3 (05:47→18:40)
[2019-05-12 06:00] LABS: Anisocytosis 1+; Basophils % (Manual) 0 % (0.0-1.8); Eosinophils % (Manual) 0 % (0.0-4.3); Platelet Estimate Consistent w Auto; Total Cells Counted 100
[2019-05-12] MEDS: SODIUM BICARBONATE 650 MG TAB PO SCH ×2 (09:15→22:34)
[2019-05-12] MEDS: ASPIRIN 81 MG TAB CHEW PO SCH (09:15)
[2019-05-12] MEDS: AMIODARONE 200 MG TAB PO SCH (09:15)
[2019-05-12] MEDS: FAMOTIDINE 20 MG/2 ML INJ IV SCH (09:15)
[2019-05-12] MEDS: busPIRone 10 MG TAB PO SCH ×2 (09:15→22:33)
[2019-05-12] MEDS: allopurinoL 100 MG TAB PO SCH (09:16)
[2019-05-12] MEDS: IPRATROPIUM/ALBUTEROL SULFATE 3 ML AMPUL.NEB IH SCH ×3 (09:27→20:35)
[2019-05-12] MEDS: BUDESONIDE 0.5 MG/2 ML NEBU IH SCH ×2 (09:27→20:35)
[2019-05-12] MEDS: ARFORMOTEROL 15 MCG/2 ML NEBU IH SCH ×2 (09:27→20:35)
--- NOTE | 2019-05-12 10:48 | Event Note ---
Date: 05/12/19 Patient chart reviewed. Patient scheduled for trach/PEG today. K is 5.9. Discussed with anesthesia and recommend HD prior to procedure to address hyperkalemia. Spoke with HD RN at 9:25am to determine if HD could be done OBIE. Unfortunately, all HD nurses currently with other patients. HD on patient will be started after 12 pm and will be at least a 3 hours treatment. Will reschedule procedure to tomorrow 05/12 at 10 am. Repeat labs in am. OK to restart TF and make NPO p MN tonight. Spoke with patient's daughter Kasia Dean to update her. Dr. Buck and Dr. Richter notified.
--- NOTE | 2019-05-12 10:58 | Progress Note ---
Assessment and Plan Cardiac risk assessment Paroxysmal Afib -currently in sinus rhythm -on amiodarone and diltiazem for suppression Respiratory failure -intubated on the vent ESRD on hemodialysis Severe COPD Hx of coronary artery disease s/p CABG in 2006 Mild cardiomyopathy echocardiogram done 01/2018 reports an ejection fraction of 40-45%. echocardiogram 12/2018 reports an ejection fraction 45-50%. MPI 12/2018 - fixed basal lateral wall defect, no ischemia Hyperlipidemia History of DVT -not on anticoagulation secondary to hematuria Recommendations: Continue amiodarone and cardizem for suppression of atrial fibrillation. Patient is not a candidate for medical terminologist oral anticoagulation or aggressive cardiac therapies. OK to proceed with trach/PEG, moderate cardiac risk. Subjective Date of service: 05/12/19 Principal diagnosis: Acute resp failure,COPd exacerbation Interval history: Remains unresponsive on the vent. Stable sinus rhythm on telemetry. Objective Vital Signs Temp Pulse Pulse Pulse Resp Resp BP 05/12/19 10:00 107 H 24 152/71 05/12/19 09:29 106 H 123/75 05/12/19 09:27 116 H 28 H 05/12/19 09:00 124 H 30 H 132/92 05/12/19 08:00 98.1 F 112 H 112 H 28 H 128/85 05/12/19 07:00 108 H 26 H 158/71 05/12/19 06:00 103 H 26 H 181/79 05/12/19 05:48 110 H 164/77 05/12/19 05:27 104 H 167/80 05/12/19 05:00 107 H 19 147/79 05/12/19 04:00 98.1 F 104 H 106 H 23 151/95 05/12/19 03:00 109 H 28 H 160/84 05/12/19 02:00 106 H 27 H 170/101 05/12/19 01:08 105 H 166/88 05/12/19 01:00 98 H 24 166/88 05/12/19 00:06 104 H 159/73 05/12/19 00:00 98.1 F 100 H 106 H 25 H 159/73 05/11/19 23:00 109 H 23 146/83 05/11/19 22:40 113 H 24 134/92 05/11/19 22:08 115 H 28 H 05/11/19 22:00 106 H 23 139/84 05/11/19 21:35 112 H 142/85 05/11/19 21:00 105 H 25 H 135/86 05/11/19 20:50 102 H 21 05/11/19 20:00 97.1 F L 100 H 21 185/88 05/11/19 19:00 99 H 25 H 191/95 05/11/19 18:52 103 H 191/95 05/11/19 18:51 19 05/11/19 18:05 104 H 181/86 05/11/19 18:01 99 H 182/113 05/11/19 17:00 97 H 24 90/47 05/11/19 16:13 20 05/11/19 16:02 106 H 15 140/74 05/11/19 16:00 102 H 99 H 24 05/11/19 15:00 102 H 21 140/74 05/11/19 14:00 88 24 126/67 05/11/19 13:52 88 24 05/11/19 13:50 96 H 80/46 05/11/19 13:00 102/56 05/11/19 12:07 113 H 138/69 05/11/19 12:00 98.5 F 112 H 88 13 138/69 05/11/19 11:00 116 H 25 H 145/70 Pulse Ox 05/12/19 10:00 100 05/12/19 09:29 100 05/12/19 09:27 05/12/19 09:00 100 05/12/19 08:00 100 05/12/19 07:00 100 05/12/19 06:00 100 05/12/19 05:48 05/12/19 05:27 100 05/12/19 05:00 100 05/12/19 04:00 100 05/12/19 03:00 100 05/12/19 02:00 100 05/12/19 01:08 100 05/12/19 01:00 100 05/12/19 00:06 05/12/19 00:00 100 05/11/19 23:00 100 05/11/19 22:40 100 05/11/19 22:08 05/11/19 22:00 100 05/11/19 21:35 96 05/11/19 21:00 100 05/11/19 20:50 100 05/11/19 20:00 95 03/24/20 19:00 100 05/11/19 18:52 05/11/19 18:51 05/11/19 18:05 05/11/19 18:01 05/11/19 17:00 05/11/19 16:13 05/11/19 16:02 05/11/19 16:00 05/11/19 15:00 05/11/19 14:00 05/11/19 13:52 05/11/19 13:50 05/11/19 13:00 05/11/19 12:07 05/11/19 12:00 05/11/19 11:00 98 - Physical Examination General: Other (intubated on the vent) Cardiac: Positive: Reg Rate and Rhythm - Labs and Meds CBC 05/12/19 Range/Units 04:35 WBC 17.5 H (4.5-11.0) K/mm3 RBC 3.68 (3.65-5.03) M/mm3 Hgb 10.5 (10.1-14.3) gm/dl Hct 33.1 (30.3-42.9) % Plt Count 119 L (140-440) K/mm3 Comprehensive Metabolic Panel 05/12/19 Range/Units 04:35 Sodium 130 L D (137-145) mmol/L Potassium 5.9 H D (3.6-5.0) mmol/L Chloride 85.0 L (98-107) mmol/L Carbon Dioxide 19 L (22-30) mmol/L BUN 81 H (7-17) mg/dL Creatinine 5.7 H (0.7-1.2) mg/dL Glucose 228 H (65-100) mg/dL Calcium 8.4 (8.4-10.2) mg/dL
--- NOTE | 2019-05-12 11:43 | Progress Note ---
Assessment and Plan Impression: * End stage renal disease * Acute on chronic hypoxic respiratory failure --wears 2-3L NC oxygen at home * COPD exacerbation * Chronic diastolic heart failure * Hypertension by history * Hypotension * Anemia secondary to ESRD * Secondary hyperparathyroidism * Acidosis * Hyperkalemia Plan: * Continue MWF schedule for HD, due today * K 5.9 noted, needs HD * Holding bp meds, continue pressors prn for MAP>65, on low dose levo intermittently * plans for trach and peg noted, appreciate surgery input, plan tomorrow AM * UF as tolerated with HD * Vent management per pulmonary medicine * Dose medications for renal function * Epogen TIW prn * Nutrition per primary team Subjective Date of service: 05/12/19 Principal diagnosis: Acute resp failure,COPd exacerbation Interval history: No acute changes noted per chart review. Planning for trach and PEG soon. K 5.9 this AM Objective - Exam Narrative Exam: General appearance: intubated, frail EENT: other (ETT in place) Respiratory: Present: Wheezes Cardiology: regular, S1S2 Gastrointestinal: hypoactive bowel sounds Integumentary: no rash, warm and dry Musculoskeletal: other (no edema) Neuro: agitated - Vital Signs Vital signs: Vital Signs - 12hr 05/12/19 05/12/19 05/12/19 00:00 00:06 01:00 Temperature 98.1 F Pulse Rate 100 H 104 H 98 H Pulse Rate [ Anterior Bilateral] Pulse Rate [ 106 H From Monitor] Respiratory 25 H 24 Rate Respiratory Rate [Anterior Bilateral] Blood Pressure 159/73 159/73 166/88 O2 Sat by Pulse 100 100 Oximetry 05/12/19 05/12/19 05/12/19 01:08 02:00 03:00 Temperature Pulse Rate 105 H 106 H 109 H Pulse Rate [ Anterior Bilateral] Pulse Rate [ From Monitor] Respiratory 27 H 28 H Rate Respiratory Rate [Anterior Bilateral] Blood Pressure 166/88 170/101 160/84 O2 Sat by Pulse 100 100 100 Oximetry 05/12/19 05/12/19 05/12/19 04:00 05:00 05:27 Temperature 98.1 F Pulse Rate 104 H 107 H 104 H Pulse Rate [ Anterior Bilateral] Pulse Rate [ 106 H From Monitor] Respiratory 23 19 Rate Respiratory Rate [Anterior Bilateral] Blood Pressure 151/95 147/79 167/80 O2 Sat by Pulse 100 100 100 Oximetry 05/12/19 05/12/19 05/12/19 05:48 06:00 07:00 Temperature Pulse Rate 110 H 103 H 108 H Pulse Rate [ Anterior Bilateral] Pulse Rate [ From Monitor] Respiratory 26 H 26 H Rate Respiratory Rate [Anterior Bilateral] Blood Pressure 164/77 181/79 158/71 O2 Sat by Pulse 100 100 Oximetry 05/12/19 05/12/19 05/12/19 08:00 09:00 09:27 Temperature 98.1 F Pulse Rate 112 H 124 H Pulse Rate [ 116 H Anterior Bilateral] Pulse Rate [ 112 H From Monitor] Respiratory 28 H 30 H Rate Respiratory 28 H Rate [Anterior Bilateral] Blood Pressure 128/85 132/92 O2 Sat by Pulse 100 100 Oximetry 05/12/19 05/12/19 05/12/19 09:29 10:00 11:00 Temperature Pulse Rate 106 H 107 H 111 H Pulse Rate [ Anterior Bilateral] Pulse Rate [ From Monitor] Respiratory 24 27 H Rate Respiratory Rate [Anterior Bilateral] Blood Pressure 123/75 152/71 140/86 O2 Sat by Pulse 100 100 100 Oximetry - Lab 05/12/19 04:35 05/12/19 04:35 Most recent lab results ABG pH 7.388 pH Units (7.350-7.450) 05/12/19 04:36 ABG pCO2 38.5 mm Hg 05/12/19 04:36 ABG pO2 79.4 mm Hg (80.0-90.0) L 05/12/19 04:36 ABG HCO3 22.7 mmol/L (20.0-26.0) 05/12/19 04:36 ABG O2 Saturation 96.0 % (95.0-99.0) 05/12/19 04:36 Calcium 8.4 mg/dL (8.4-10.2) 05/12/19 04:35 Phosphorus 12.90 mg/dL (2.5-4.5) H 05/03/19 09:44 Magnesium 1.50 mg/dL (1.7-2.3) L 05/11/19 13:00 Medications & Allergies - Medications Allergies/Adverse Reactions: Allergies latex Allergy (Verified 02/05/19 13:51) Hives milk Allergy (Verified 02/05/19 13:51) Rash Home Medications: Home Medications Medication Instructions Recorded Confirmed Last Taken Type Metoprolol [Lopressor TAB] 50 mg PO BID #60 tablet 01/27/18 05/03/19 04/11/19 Rx Montelukast [Singulair] 10 mg PO QPM #30 tablet 01/27/18 05/03/19 04/11/19 Rx Pravastatin [Pravachol] 40 mg PO QHS #30 tablet 01/27/18 05/03/19 04/11/19 Rx allopurinoL [Zyloprim] 100 mg PO QDAY #30 tablet 01/27/18 05/03/19 04/11/19 Rx Famotidine [Pepcid] 20 mg PO BID 06/17/18 05/03/19 04/11/19 History Fluticasone/Vilanterol [Breo 1 each IH BID #1 blst.w.dev 12/31/18 05/03/19 04/11/19 Rx Ellipta 200-25 Mcg INH] Tiotropium [place] [Spiriva 4 gm IH DAILY #1 mist.inhal 12/31/18 05/03/19 04/11/19 Rx Respimat] Aspirin EC [Halfprin EC] 81 mg PO QDAY #30 tablet. 02/18/19 05/03/19 04/11/19 Rx ISOSORBIDE MONOnitrate [Imdur ER] 30 mg PO QDAY #30 tablet 02/18/19 05/03/19 Unknown Rx glipiZIDE [Glucotrol] 5 mg PO QDAY #30 tablet 02/18/19 05/03/19 Unknown Rx ALBUTEROL NEB's [Proventil 0.083% 2.5 mg IH Q4HRT PRN #30 nebu 04/15/19 05/03/19 Unknown Rx NEBS] Furosemide [Lasix] 20 mg PO QDAY #30 tablet 04/15/19 05/03/19 Unknown Rx Ipratropium/Albuterol Sulfate 2 puff IH BID #1 unit 04/15/19 05/03/19 Unknown Rx [Combivent Respimat] Olanzapine/Fluoxetine HCl [Symbyax 1 each PO QHS #30 capsule 04/15/19 05/03/19 Unknown Rx 3-25 mg] Sodium Bicarbonate 650 mg PO BID #60 tablet 04/15/19 05/03/19 Unknown Rx amLODIPine 10 mg PO DAILY #30 tablet 04/15/19 05/03/19 Unknown Rx cefUROXime [Ceftin] 250 mg PO Q12H #14 tablet 04/15/19 05/03/19 Unknown Rx predniSONE [Deltasone] 1 tab PO QDAY #91 tab 04/15/19 05/03/19 Unknown Rx traMADoL [Ultram 50 MG tab] 50 mg PO Q8H PRN #15 tab 04/15/19 05/03/19 04/11/19 Rx Active Medications: Generic Name Dose Route Start Last Admin Trade Name Freq PRN Reason Stop Dose Admin Acetaminophen 650 mg 04/30/19 17:44 05/05/19 15:22 Tylenol PO 650 mg Q4H PRN Administration Pain MILD(1-3)/Fever >100.5/HERRMANN Albuterol 2.5 mg 04/30/19 18:32 05/02/19 04:49 Proventil IH 2.5 mg Q3H PRN Administration Shortness Of Breath Albuterol/Ipratropium 1 ampul 05/11/19 14:00 05/12/19 09:27 Duoneb *Not For Prn Use* IH Not Given TIDRT KVNG Allopurinol 100 mg 04/30/19 18:00 05/12/19 09:16 Zyloprim PO 100 mg QDAY KVNG Administration Amiodarone HCl 200 mg 05/12/19 10:00 05/12/19 09:15 Cordarone PO 200 mg QDAY KVNG Administration Lipase/Protease/Amylase 1 each 05/04/19 14:58 Pancrejessica Gould 10,500 Unit FEEDTUBE PRN PRN For Clogged Feeding Tube Arformoterol Tartrate 15 mcg 05/01/19 08:00 05/12/19 09:27 Brovana Nebu IH 15 mcg Q12HRT KVNG Administration Aspirin 81 mg 05/11/19 10:00 05/12/19 09:15 Baby Aspirin PO 81 mg QDAY KVNG Administration Budesonide 0.5 mg 05/03/19 11:00 05/12/19 09:27 Pulmicort IH 0.5 mg Q12HRT KVNG Administration Buspirone HCl 15 mg 05/04/19 10:00 05/12/19 09:15 Buspar PO 15 mg BID KVNG Administration Diltiazem HCl 30 mg 05/11/19 12:00 05/12/19 05:48 Cardizem PO 30 mg Q6HR KVNG Administration Famotidine 20 mg 05/10/19 10:00 05/12/19 09:15 Pepcid IV 20 mg DAILY KVNG Administration Fentanyl 50 mcg 05/11/19 10:00 05/11/19 18:51 Sublimaze IV 50 mcg Q2H PRN Administration AGITATION Heparin Sodium (Porcine) 5,000 unit 05/04/19 22:00 05/10/19 22:13 Heparin SUB-Q 5,000 unit Q12HR KVNG Administration Hydralazine HCl 5 mg 05/01/19 22:47 05/11/19 18:52 Apresoline IV 5 mg Q6HR PRN Administration SBP > 160 AND/OR DBP > 100 Hydrophilic Ointment 1 applic 05/04/19 09:42 Vaseline Lip Therapy TP Q2HR PRN Dry Lips Sodium Chloride 100 mls @ 999 mls/hr 04/30/19 13:29 Nacl 0.9% IV ALBINO PRN Hypotension Propofol 1,000 mg in 100 mls @ 1.482 mls/hr 05/04/19 09:00 05/06/19 07:50 Diprivan 10 Mg/Ml IV 0 mcg/kg/min TITR KVNG 0 mls/hr Titration Protocol 5 MCG/KG/MIN Norepinephrine 4 mg in 250 mls @ 7.5 mls/hr 05/08/19 09:00 05/11/19 09:26 Levophed Drip 4 Mg/Ns 250 Ml IV Infused TITR KVNG Titration Protocol 2 MCG/MIN Insulin Human Lispro 0 unit 05/05/19 18:00 05/12/19 05:47 Humalog SUB-Q 6 unit Q6HR KVNG Administration Protocol Lorazepam 1 mg 05/02/19 11:08 05/10/19 21:53 Ativan IV 1 mg Q4H PRN Administration Anxiety Methylprednisolone Sodium Succinate 60 mg 05/04/19 09:00 05/12/19 09:21 Solu-Medrol IV 60 mg Q6H KVNG Administration Metoclopramide HCl 5 mg 05/10/19 14:00 05/12/19 02:21 Reglan IV 5 mg Q12H KVNG Administration Montelukast Sodium 10 mg 04/30/19 19:00 05/11/19 18:01 Singulair PO 10 mg QPM KVNG Administration Multi-Ingred Cream/Lotion/Oil/Oint 1 applic 05/04/19 09:42 Artificial Tears Ophth Oint OU Q4HR PRN Dry Eye(s) Pravastatin Sodium 40 mg 04/30/19 22:00 05/11/19 21:29 Pravachol PO 40 mg QHS KVNG Administration Simple Syrup 15 ml 05/04/19 14:58 Simple Syrup FEEDTUBE PRN PRN Hypoglycemia Simple Syrup 30 ml 05/04/19 14:58 Simple Syrup FEEDTUBE PRN PRN Hypoglycemia Sodium Bicarbonate 650 mg 04/30/19 22:00 05/12/19 09:15 Sodium Bicarbonate PO 650 mg BID KVNG Administration Sodium Bicarbonate 325 mg 05/04/19 14:58 Sodium Bicarbonate FEEDTUBE PRN PRN For Clogged Feeding Tube Sodium Chloride 10 ml 04/30/19 22:00 05/12/19 09:16 Sodium Chloride Flush Syringe 10 Ml IV 10 ml BID KVNG Administration Sodium Chloride 10 ml 04/30/19 17:44 05/01/19 03:55 Sodium Chloride Flush Syringe 10 Ml IV 10 ml PRN PRN Administration LINE FLUSH
--- NOTE | 2019-05-12 12:24 | Progress Note ---
Assessment and Plan 78 y/o female with acute on chronic respiratory failure secondary to volume overload, resolved. 1. Continue steroids at 60q6, will start to wean this week. 2. Diprovan for sedation with PRN ativan 3. Continue HD per renal 4. Started Buspar prior to intubation, will continue 5. Midline placement, done 6. NG tube placed. 7. Trach and Peg and LTACH placement. Surgery has spoken to Family and they have agreed to procedure CCT 31 minutes. Subjective Date of service: 05/12/19 Principal diagnosis: Acute resp failure,COPd exacerbation Interval history: Trach and PEg pushed secondary to K and need for HD. Pulm status is unchanged. Objective Vital Signs - 12hr 05/12/19 05/12/19 05/12/19 01:00 01:08 02:00 Temperature Pulse Rate 98 H 105 H 106 H Pulse Rate [ Anterior Bilateral] Pulse Rate [ From Monitor] Respiratory 24 27 H Rate Respiratory Rate [Anterior Bilateral] Blood Pressure 166/88 166/88 170/101 O2 Sat by Pulse 100 100 100 Oximetry 05/12/19 05/12/19 05/12/19 03:00 04:00 05:00 Temperature 98.1 F Pulse Rate 109 H 104 H 107 H Pulse Rate [ Anterior Bilateral] Pulse Rate [ 106 H From Monitor] Respiratory 28 H 23 19 Rate Respiratory Rate [Anterior Bilateral] Blood Pressure 160/84 151/95 147/79 O2 Sat by Pulse 100 100 100 Oximetry 05/12/19 05/12/19 05/12/19 05:27 05:48 06:00 Temperature Pulse Rate 104 H 110 H 103 H Pulse Rate [ Anterior Bilateral] Pulse Rate [ From Monitor] Respiratory 26 H Rate Respiratory Rate [Anterior Bilateral] Blood Pressure 167/80 164/77 181/79 O2 Sat by Pulse 100 100 Oximetry 05/12/19 05/12/19 05/12/19 07:00 08:00 09:00 Temperature 98.1 F Pulse Rate 108 H 112 H 124 H Pulse Rate [ Anterior Bilateral] Pulse Rate [ 112 H From Monitor] Respiratory 26 H 28 H 30 H Rate Respiratory Rate [Anterior Bilateral] Blood Pressure 158/71 128/85 132/92 O2 Sat by Pulse 100 100 100 Oximetry 05/12/19 05/12/19 05/12/19 09:27 09:29 10:00 Temperature Pulse Rate 106 H 107 H Pulse Rate [ 116 H Anterior Bilateral] Pulse Rate [ From Monitor] Respiratory 24 Rate Respiratory 28 H Rate [Anterior Bilateral] Blood Pressure 123/75 152/71 O2 Sat by Pulse 100 100 Oximetry 05/12/19 05/12/19 11:00 12:00 Temperature 98.9 F Pulse Rate 111 H Pulse Rate [ Anterior Bilateral] Pulse Rate [ From Monitor] Respiratory 27 H Rate Respiratory Rate [Anterior Bilateral] Blood Pressure 140/86 O2 Sat by Pulse 100 Oximetry Constitutional: other (Sedated and orally intubated) Eyes: non-icteric ENT: other (orally intubated and sedated.) Neck: supple Effort: mildly labored Ascultation: Bilateral: diminished breath sounds, rales, rhonchi Percussion: Bilateral: not dull Cardiovascular: other (sinus tach) Gastrointestinal: normoactive bowel sounds Neurologic: unable to assess CBC and BMP: 05/12/19 04:35 05/12/19 04:35 ABG, PT/INR, D-dimer: ABG ABG pH 7.388 pH Units (7.350-7.450) 05/12/19 04:36 ABG pCO2 38.5 mm Hg 05/12/19 04:36 ABG pO2 79.4 mm Hg (80.0-90.0) L 05/12/19 04:36 ABG O2 Saturation 96.0 % (95.0-99.0) 05/12/19 04:36 PT/INR, D-dimer PT 14.3 Sec. (12.2-14.9) 04/30/19 15:23 INR 1.10 (0.87-1.13) 04/30/19 15:23 Abnormal lab findings: Abnormal Labs 04/30/19 04/30/19 04/30/19 10:12 11:32 11:32 WBC RDW 17.1 H Plt Count 84 L Lymph % (Auto) 10.9 L Craig % (Auto) 7.4 H Lymph # 0.8 L Seg Neutrophils % 80.6 H Seg Neuts % (Manual) Lymphocytes % (Manual) Nucleated RBC % Seg Neutrophils # Man Lymphocytes # (Manual) Monocytes # (Manual) PT 28.3 H INR 2.59 H APTT ABG pH 7.347 L ABG pO2 221.9 H ABG HCO3 ABG O2 Saturation 99.3 H ABG Base Excess -2.2 L ABG Hemoglobin Oxyhemoglobin Sodium Potassium Chloride Carbon Dioxide BUN Creatinine Glucose POC Glucose Phosphorus Magnesium Troponin T NT-Pro-B Natriuret Pep Triglycerides Cholesterol LDL Cholesterol Direct HDL Cholesterol TSH Free T4 04/30/19 04/30/19 04/30/19 14:20 15:23 18:05 WBC RDW Plt Count Lymph % (Auto) Craig % (Auto) Lymph # Seg Neutrophils % Seg Neuts % (Manual) Lymphocytes % (Manual) Nucleated RBC % Seg Neutrophils # Man Lymphocytes # (Manual) Monocytes # (Manual) PT INR APTT 37.2 H ABG pH ABG pO2 79.2 L ABG HCO3 ABG O2 Saturation ABG Base Excess ABG Hemoglobin Oxyhemoglobin 94.4 L Sodium 146 H Potassium 3.2 L Chloride Carbon Dioxide BUN 39 H Creatinine 2.6 H Glucose POC Glucose Phosphorus Magnesium Troponin T 0.117 H* NT-Pro-B Natriuret Pep [id number] H Triglycerides 178 H Cholesterol 303 H LDL Cholesterol Direct 190 H HDL Cholesterol 105 H TSH Free T4 04/30/19 05/01/19 05/01/19 22:20 00:48 04:46 WBC RDW Plt Count Lymph % (Auto) Craig % (Auto) Lymph # Seg Neutrophils % Seg Neuts % (Manual) Lymphocytes % (Manual) Nucleated RBC % Seg Neutrophils # Man Lymphocytes # (Manual) Monocytes # (Manual) PT INR APTT ABG pH ABG pO2 98.3 H ABG HCO3 ABG O2 Saturation ABG Base Excess ABG Hemoglobin Oxyhemoglobin Sodium Potassium Chloride Carbon Dioxide BUN Creatinine Glucose POC Glucose 108 H 142 H Phosphorus Magnesium Troponin T NT-Pro-B Natriuret Pep Triglycerides Cholesterol LDL Cholesterol Direct HDL Cholesterol TSH Free T4 05/01/19 05/01/19 05/01/19 12:43 12:43 13:27 WBC RDW 16.4 H Plt Count 132 L Lymph % (Auto) Craig % (Auto) Lymph # Seg Neutrophils % Seg Neuts % (Manual) 95.0 H Lymphocytes % (Manual) 3.0 L Nucleated RBC % Seg Neutrophils # Man Lymphocytes # (Manual) 0.2 L Monocytes # (Manual) PT INR APTT ABG pH ABG pO2 ABG HCO3 ABG O2 Saturation ABG Base Excess ABG Hemoglobin Oxyhemoglobin Sodium Potassium Chloride 95.1 L Carbon Dioxide 21 L BUN 29 H Creatinine 3.2 H Glucose 137 H POC Glucose 114 H Phosphorus Magnesium Troponin T NT-Pro-B Natriuret Pep Triglycerides Cholesterol LDL Cholesterol Direct HDL Cholesterol TSH Free T4 05/01/19 05/02/19 05/02/19 18:41 00:01 05:40 WBC RDW Plt Count Lymph % (Auto) Craig % (Auto) Lymph # Seg Neutrophils % Seg Neuts % (Manual) Lymphocytes % (Manual) Nucleated RBC % Seg Neutrophils # Man Lymphocytes # (Manual) Monocytes # (Manual) PT INR APTT ABG pH ABG pO2 ABG HCO3 ABG O2 Saturation ABG Base Excess ABG Hemoglobin Oxyhemoglobin Sodium Potassium Chloride Carbon Dioxide BUN Creatinine Glucose POC Glucose 127 H 110 H 135 H Phosphorus Magnesium Troponin T NT-Pro-B Natriuret Pep Triglycerides Cholesterol LDL Cholesterol Direct HDL Cholesterol TSH Free T4 05/02/19 05/02/19 05/03/19 13:06 19:14 09:44 WBC RDW 17.1 H Plt Count Lymph % (Auto) Craig % (Auto) Lymph # Seg Neutrophils % Seg Neuts % (Manual) Lymphocytes % (Manual) Nucleated RBC % Seg Neutrophils # Man Lymphocytes # (Manual) Monocytes # (Manual) PT INR APTT ABG pH ABG pO2 ABG HCO3 ABG O2 Saturation ABG Base Excess ABG Hemoglobin Oxyhemoglobin Sodium Potassium Chloride Carbon Dioxide BUN Creatinine Glucose POC Glucose 152 H 117 H Phosphorus Magnesium Troponin T NT-Pro-B Natriuret Pep Triglycerides Cholesterol LDL Cholesterol Direct HDL Cholesterol TSH Free T4 05/03/19 05/03/19 05/03/19 09:44 10:13 18:45 WBC RDW Plt Count Lymph % (Auto) Craig % (Auto) Lymph # Seg Neutrophils % Seg Neuts % (Manual) Lymphocytes % (Manual) Nucleated RBC % Seg Neutrophils # Man Lymphocytes # (Manual) Monocytes # (Manual) PT INR APTT ABG pH 7.166 L* ABG pO2 ABG HCO3 ABG O2 Saturation 94.5 L ABG Base Excess -8.8 L ABG Hemoglobin 11.6 L Oxyhemoglobin 92.4 L Sodium Potassium 6.2 H* D Chloride 93.2 L Carbon Dioxide 13 L D BUN 93 H Creatinine 7.2 H D Glucose 138 H POC Glucose 128 H Phosphorus 12.90 H Magnesium 2.70 H Troponin T NT-Pro-B Natriuret Pep Triglycerides Cholesterol LDL Cholesterol Direct HDL Cholesterol TSH Free T4 05/03/19 05/04/19 05/04/19 19:40 01:04 03:51 WBC 11.2 H RDW 16.6 H Plt Count Lymph % (Auto) Craig % (Auto) Lymph # Seg Neutrophils % Seg Neuts % (Manual) Lymphocytes % (Manual) Nucleated RBC % Seg Neutrophils # Man Lymphocytes # (Manual) Monocytes # (Manual) PT INR APTT ABG pH ABG pO2 ABG HCO3 ABG O2 Saturation ABG Base Excess ABG Hemoglobin Oxyhemoglobin Sodium Potassium Chloride 92.7 L Carbon Dioxide BUN 26 H Creatinine 3.2 H D Glucose 129 H POC Glucose 134 H Phosphorus Magnesium Troponin T NT-Pro-B Natriuret Pep Triglycerides Cholesterol LDL Cholesterol Direct HDL Cholesterol TSH Free T4 05/04/19 05/04/19 05/04/19 03:51 06:05 12:33 WBC RDW Plt Count Lymph % (Auto) Craig % (Auto) Lymph # Seg Neutrophils % Seg Neuts % (Manual) Lymphocytes % (Manual) Nucleated RBC % Seg Neutrophils # Man Lymphocytes # (Manual) Monocytes # (Manual) PT INR APTT ABG pH ABG pO2 ABG HCO3 ABG O2 Saturation ABG Base Excess ABG Hemoglobin Oxyhemoglobin Sodium Potassium Chloride 92.5 L Carbon Dioxide 19 L BUN 39 H Creatinine 4.3 H Glucose 148 H POC Glucose 138 H 190 H Phosphorus Magnesium Troponin T NT-Pro-B Natriuret Pep Triglycerides Cholesterol LDL Cholesterol Direct HDL Cholesterol TSH Free T4 05/04/19 05/04/19 05/04/19 18:25 23:57 Unknown WBC RDW Plt Count Lymph % (Auto) Craig % (Auto) Lymph # Seg Neutrophils % Seg Neuts % (Manual) Lymphocytes % (Manual) Nucleated RBC % Seg Neutrophils # Man Lymphocytes # (Manual) Monocytes # (Manual) PT INR APTT ABG pH ABG pO2 ABG HCO3 ABG O2 Saturation ABG Base Excess -3.4 L ABG Hemoglobin Oxyhemoglobin 94.5 L Sodium Potassium Chloride Carbon Dioxide BUN Creatinine Glucose POC Glucose 190 H 119 H Phosphorus Magnesium Troponin T NT-Pro-B Natriuret Pep Triglycerides Cholesterol LDL Cholesterol Direct HDL Cholesterol TSH Free T4 05/05/19 05/05/19 05/05/19 03:45 06:09 12:07 WBC RDW Plt Count Lymph % (Auto) Craig % (Auto) Lymph # Seg Neutrophils % Seg Neuts % (Manual) Lymphocytes % (Manual) Nucleated RBC % Seg Neutrophils # Man Lymphocytes # (Manual) Monocytes # (Manual) PT INR APTT ABG pH 7.456 H ABG pO2 64.8 L ABG HCO3 ABG O2 Saturation 93.6 L ABG Base Excess ABG Hemoglobin Oxyhemoglobin 91.4 L Sodium Potassium Chloride Carbon Dioxide BUN Creatinine Glucose POC Glucose 173 H 260 H Phosphorus Magnesium Troponin T NT-Pro-B Natriuret Pep Triglycerides Cholesterol LDL Cholesterol Direct HDL Cholesterol TSH Free T4 05/05/19 05/06/19 05/06/19 18:34 00:49 04:20 WBC 12.8 H RDW 16.9 H Plt Count Lymph % (Auto) Craig % (Auto) Lymph # Seg Neutrophils % Seg Neuts % (Manual) 93.0 H Lymphocytes % (Manual) 2.0 L Nucleated RBC % 1.0 H Seg Neutrophils # Man 11.9 H Lymphocytes # (Manual) 0.3 L Monocytes # (Manual) PT INR APTT ABG pH ABG pO2 ABG HCO3 ABG O2 Saturation ABG Base Excess ABG Hemoglobin Oxyhemoglobin Sodium Potassium Chloride Carbon Dioxide BUN Creatinine Glucose POC Glucose 334 H 230 H Phosphorus Magnesium Troponin T NT-Pro-B Natriuret Pep Triglycerides Cholesterol LDL Cholesterol Direct HDL Cholesterol TSH Free T4 05/06/19 05/06/19 05/06/19 04:20 04:20 05:39 WBC RDW Plt Count Lymph % (Auto) Craig % (Auto) Lymph # Seg Neutrophils % Seg Neuts % (Manual) Lymphocytes % (Manual) Nucleated RBC % Seg Neutrophils # Man Lymphocytes # (Manual) Monocytes # (Manual) PT INR APTT ABG pH ABG pO2 62.9 L ABG HCO3 ABG O2 Saturation 92.5 L ABG Base Excess ABG Hemoglobin Oxyhemoglobin 90.5 L Sodium Potassium Chloride 95.1 L Carbon Dioxide BUN 40 H Creatinine 3.6 H Glucose 267 H POC Glucose Phosphorus Magnesium Troponin T NT-Pro-B Natriuret Pep Triglycerides 380 H Cholesterol LDL Cholesterol Direct HDL Cholesterol TSH Free T4 05/06/19 05/06/19 05/06/19 06:08 11:15 12:42 WBC RDW Plt Count Lymph % (Auto) Craig % (Auto) Lymph # Seg Neutrophils % Seg Neuts % (Manual) Lymphocytes % (Manual) Nucleated RBC % Seg Neutrophils # Man Lymphocytes # (Manual) Monocytes # (Manual) PT INR APTT ABG pH 7.344 L ABG pO2 56.8 L ABG HCO3 ABG O2 Saturation 85.5 L ABG Base Excess ABG Hemoglobin Oxyhemoglobin 83.8 L Sodium Potassium Chloride Carbon Dioxide BUN Creatinine Glucose POC Glucose 325 H 168 H Phosphorus Magnesium Troponin T NT-Pro-B Natriuret Pep Triglycerides Cholesterol LDL Cholesterol Direct HDL Cholesterol TSH Free T4 05/06/19 05/07/19 05/07/19 17:30 00:33 05:25 WBC RDW Plt Count Lymph % (Auto) Craig % (Auto) Lymph # Seg Neutrophils % Seg Neuts % (Manual) Lymphocytes % (Manual) Nucleated RBC % Seg Neutrophils # Man Lymphocytes # (Manual) Monocytes # (Manual) PT INR APTT ABG pH ABG pO2 51.8 L ABG HCO3 ABG O2 Saturation 83.6 L ABG Base Excess -3.3 L ABG Hemoglobin Oxyhemoglobin 81.7 L Sodium Potassium Chloride Carbon Dioxide BUN Creatinine Glucose POC Glucose 172 H 131 H Phosphorus Magnesium Troponin T NT-Pro-B Natriuret Pep Triglycerides Cholesterol LDL Cholesterol Direct HDL Cholesterol TSH Free T4 05/07/19 05/07/19 05/07/19 06:31 13:21 15:15 WBC RDW Plt Count Lymph % (Auto) Craig % (Auto) Lymph # Seg Neutrophils % Seg Neuts % (Manual) Lymphocytes % (Manual) Nucleated RBC % Seg Neutrophils # Man Lymphocytes # (Manual) Monocytes # (Manual) PT INR APTT ABG pH 7.317 L ABG pO2 64.0 L ABG HCO3 ABG O2 Saturation 89.7 L ABG Base Excess ABG Hemoglobin Oxyhemoglobin 87.8 L Sodium Potassium Chloride Carbon Dioxide BUN Creatinine Glucose POC Glucose 223 H 200 H Phosphorus Magnesium Troponin T NT-Pro-B Natriuret Pep Triglycerides Cholesterol LDL Cholesterol Direct HDL Cholesterol TSH Free T4 05/07/19 05/07/19 05/07/19 18:40 19:35 21:39 WBC RDW Plt Count Lymph % (Auto) Craig % (Auto) Lymph # Seg Neutrophils % Seg Neuts % (Manual) Lymphocytes % (Manual) Nucleated RBC % Seg Neutrophils # Man Lymphocytes # (Manual) Monocytes # (Manual) PT INR APTT ABG pH ABG pO2 ABG HCO3 ABG O2 Saturation ABG Base Excess ABG Hemoglobin Oxyhemoglobin Sodium Potassium Chloride Carbon Dioxide BUN Creatinine Glucose POC Glucose 142 H 138 H Phosphorus Magnesium 1.60 L Troponin T NT-Pro-B Natriuret Pep Triglycerides Cholesterol LDL Cholesterol Direct HDL Cholesterol TSH Free T4 05/07/19 05/08/19 05/08/19 23:49 09:32 12:31 WBC RDW Plt Count Lymph % (Auto) Craig % (Auto) Lymph # Seg Neutrophils % Seg Neuts % (Manual) Lymphocytes % (Manual) Nucleated RBC % Seg Neutrophils # Man Lymphocytes # (Manual) Monocytes # (Manual) PT INR APTT ABG pH ABG pO2 65.1 L ABG HCO3 18.7 L ABG O2 Saturation 91.9 L ABG Base Excess -5.8 L ABG Hemoglobin Oxyhemoglobin 90.1 L Sodium Potassium Chloride Carbon Dioxide BUN Creatinine Glucose POC Glucose 195 H 298 H Phosphorus Magnesium Troponin T NT-Pro-B Natriuret Pep Triglycerides Cholesterol LDL Cholesterol Direct HDL Cholesterol TSH Free T4 05/08/19 05/08/19 05/08/19 13:54 14:44 14:44 WBC 15.3 H RDW 16.9 H Plt Count Lymph % (Auto) Craig % (Auto) Lymph # Seg Neutrophils % Seg Neuts % (Manual) Lymphocytes % (Manual) Nucleated RBC % Seg Neutrophils # Man Lymphocytes # (Manual) Monocytes # (Manual) PT INR APTT ABG pH 7.327 L ABG pO2 67.2 L ABG HCO3 18.4 L ABG O2 Saturation 91.6 L ABG Base Excess -6.8 L ABG Hemoglobin Oxyhemoglobin 89.6 L Sodium Potassium Chloride 91.3 L Carbon Dioxide 17 L BUN 64 H Creatinine 5.0 H Glucose 337 H POC Glucose Phosphorus Magnesium Troponin T NT-Pro-B Natriuret Pep Triglycerides Cholesterol LDL Cholesterol Direct HDL Cholesterol TSH Free T4 05/08/19 05/08/19 05/09/19 17:14 23:49 05:22 WBC RDW Plt Count Lymph % (Auto) Craig % (Auto) Lymph # Seg Neutrophils % Seg Neuts % (Manual) Lymphocytes % (Manual) Nucleated RBC % Seg Neutrophils # Man Lymphocytes # (Manual) Monocytes # (Manual) PT INR APTT ABG pH ABG pO2 ABG HCO3 ABG O2 Saturation ABG Base Excess ABG Hemoglobin Oxyhemoglobin Sodium Potassium Chloride Carbon Dioxide BUN Creatinine Glucose POC Glucose 396 H 322 H 239 H Phosphorus Magnesium Troponin T NT-Pro-B Natriuret Pep Triglycerides Cholesterol LDL Cholesterol Direct HDL Cholesterol TSH Free T4 0305/09/19 05/09/19 07:14 07:14 11:39 WBC 13.6 H RDW 17.1 H Plt Count Lymph % (Auto) Craig % (Auto) Lymph # Seg Neutrophils % Seg Neuts % (Manual) 91.0 H Lymphocytes % (Manual) 2.0 L Nucleated RBC % 4.0 H Seg Neutrophils # Man 12.4 H Lymphocytes # (Manual) 0.3 L Monocytes # (Manual) PT INR APTT ABG pH ABG pO2 ABG HCO3 ABG O2 Saturation ABG Base Excess ABG Hemoglobin Oxyhemoglobin Sodium 135 L Potassium 5.3 H Chloride 93.5 L Carbon Dioxide 14 L BUN 85 H Creatinine 6.1 H Glucose 242 H POC Glucose 273 H Phosphorus Magnesium Troponin T NT-Pro-B Natriuret Pep Triglycerides Cholesterol LDL Cholesterol Direct HDL Cholesterol TSH Free T4 05/09/19 05/09/19 05/10/19 17:29 21:45 00:11 WBC RDW Plt Count Lymph % (Auto) Craig % (Auto) Lymph # Seg Neutrophils % Seg Neuts % (Manual) Lymphocytes % (Manual) Nucleated RBC % Seg Neutrophils # Man Lymphocytes # (Manual) Monocytes # (Manual) PT INR APTT ABG pH ABG pO2 ABG HCO3 ABG O2 Saturation ABG Base Excess ABG Hemoglobin Oxyhemoglobin Sodium Potassium Chloride Carbon Dioxide BUN Creatinine Glucose POC Glucose 190 H 190 H 247 H Phosphorus Magnesium Troponin T NT-Pro-B Natriuret Pep Triglycerides Cholesterol LDL Cholesterol Direct HDL Cholesterol TSH Free T4 05/10/19 05/10/19 05/10/19 05:14 05:14 05:42 WBC 21.0 H RDW 16.8 H Plt Count Lymph % (Auto) Craig % (Auto) Lymph # Seg Neutrophils % Seg Neuts % (Manual) 91.0 H Lymphocytes % (Manual) 2.0 L Nucleated RBC % 7.0 H Seg Neutrophils # Man 19.1 H Lymphocytes # (Manual) 0.4 L Monocytes # (Manual) 1.1 H PT INR APTT ABG pH ABG pO2 ABG HCO3 ABG O2 Saturation ABG Base Excess ABG Hemoglobin Oxyhemoglobin Sodium Potassium Chloride 92.2 L Carbon Dioxide 19 L BUN 111 H Creatinine 7.7 H Glucose 193 H POC Glucose 208 H Phosphorus Magnesium Troponin T NT-Pro-B Natriuret Pep Triglycerides Cholesterol LDL Cholesterol Direct HDL Cholesterol TSH Free T4 05/10/19 05/10/19 05/11/19 12:28 17:45 00:26 WBC RDW Plt Count Lymph % (Auto) Craig % (Auto) Lymph # Seg Neutrophils % Seg Neuts % (Manual) Lymphocytes % (Manual) Nucleated RBC % Seg Neutrophils # Man Lymphocytes # (Manual) Monocytes # (Manual) PT INR APTT ABG pH ABG pO2 ABG HCO3 ABG O2 Saturation ABG Base Excess ABG Hemoglobin Oxyhemoglobin Sodium Potassium Chloride Carbon Dioxide BUN Creatinine Glucose POC Glucose 275 H 214 H 244 H Phosphorus Magnesium Troponin T NT-Pro-B Natriuret Pep Triglycerides Cholesterol LDL Cholesterol Direct HDL Cholesterol TSH Free T4 05/11/19 05/11/19 05/11/19 04:08 04:23 04:23 WBC 20.5 H RDW 17.0 H Plt Count 134 L Lymph % (Auto) Craig % (Auto) Lymph # Seg Neutrophils % Seg Neuts % (Manual) 92.0 H Lymphocytes % (Manual) 1.0 L Nucleated RBC % 3.0 H Seg Neutrophils # Man 18.9 H Lymphocytes # (Manual) 0.2 L Monocytes # (Manual) 1.0 H PT INR APTT ABG pH ABG pO2 57.9 L ABG HCO3 ABG O2 Saturation 89.9 L ABG Base Excess ABG Hemoglobin 10.3 L Oxyhemoglobin 87.9 L Sodium Potassium Chloride 90.9 L Carbon Dioxide BUN 50 H Creatinine 4.2 H Glucose 175 H POC Glucose Phosphorus Magnesium Troponin T NT-Pro-B Natriuret Pep Triglycerides Cholesterol LDL Cholesterol Direct HDL Cholesterol TSH Free T4 05/11/19 05/11/19 05/11/19 05:36 12:00 13:00 WBC RDW Plt Count Lymph % (Auto) Craig % (Auto) Lymph # Seg Neutrophils % Seg Neuts % (Manual) Lymphocytes % (Manual) Nucleated RBC % Seg Neutrophils # Man Lymphocytes # (Manual) Monocytes # (Manual) PT INR APTT ABG pH ABG pO2 ABG HCO3 ABG O2 Saturation ABG Base Excess ABG Hemoglobin Oxyhemoglobin Sodium Potassium Chloride Carbon Dioxide BUN Creatinine Glucose POC Glucose 147 H 318 H Phosphorus Magnesium 1.50 L Troponin T NT-Pro-B Natriuret Pep Triglycerides Cholesterol LDL Cholesterol Direct HDL Cholesterol TSH Free T4 05/11/19 05/11/19 05/11/19 13:00 13:00 18:00 WBC RDW Plt Count Lymph % (Auto) Craig % (Auto) Lymph # Seg Neutrophils % Seg Neuts % (Manual) Lymphocytes % (Manual) Nucleated RBC % Seg Neutrophils # Man Lymphocytes # (Manual) Monocytes # (Manual) PT INR APTT ABG pH ABG pO2 ABG HCO3 ABG O2 Saturation ABG Base Excess ABG Hemoglobin Oxyhemoglobin Sodium Potassium Chloride Carbon Dioxide BUN Creatinine Glucose POC Glucose 237 H Phosphorus Magnesium Troponin T NT-Pro-B Natriuret Pep Triglycerides Cholesterol LDL Cholesterol Direct HDL Cholesterol TSH 0.220 L Free T4 0.70 L 05/11/19 05/12/19 05/12/19 23:49 03:50 04:35 WBC 17.5 H RDW 17.0 H Plt Count 119 L Lymph % (Auto) Craig % (Auto) Lymph # Seg Neutrophils % Seg Neuts % (Manual) 98.0 H Lymphocytes % (Manual) 1.0 L Nucleated RBC % Seg Neutrophils # Man 17.2 H Lymphocytes # (Manual) 0.2 L Monocytes # (Manual) PT INR APTT ABG pH ABG pO2 ABG HCO3 ABG O2 Saturation ABG Base Excess ABG Hemoglobin Oxyhemoglobin Sodium Potassium Chloride Carbon Dioxide BUN Creatinine Glucose POC Glucose 117 H 225 H Phosphorus Magnesium Troponin T NT-Pro-B Natriuret Pep Triglycerides Cholesterol LDL Cholesterol Direct HDL Cholesterol TSH Free T4 05/12/19 05/12/19 05/12/19 04:35 04:36 05:51 WBC RDW Plt Count Lymph % (Auto) Craig % (Auto) Lymph # Seg Neutrophils % Seg Neuts % (Manual) Lymphocytes % (Manual) Nucleated RBC % Seg Neutrophils # Man Lymphocytes # (Manual) Monocytes # (Manual) PT INR APTT ABG pH ABG pO2 79.4 L ABG HCO3 ABG O2 Saturation ABG Base Excess ABG Hemoglobin 10.9 L Oxyhemoglobin 94.0 L Sodium 130 L D Potassium 5.9 H D Chloride 85.0 L Carbon Dioxide 19 L BUN 81 H Creatinine 5.7 H Glucose 228 H POC Glucose 274 H Phosphorus Magnesium Troponin T NT-Pro-B Natriuret Pep Triglycerides Cholesterol LDL Cholesterol Direct HDL Cholesterol TSH Free T4 05/12/19 11:30 WBC RDW Plt Count Lymph % (Auto) Craig % (Auto) Lymph # Seg Neutrophils % Seg Neuts % (Manual) Lymphocytes % (Manual) Nucleated RBC % Seg Neutrophils # Man Lymphocytes # (Manual) Monocytes # (Manual) PT INR APTT ABG pH ABG pO2 ABG HCO3 ABG O2 Saturation ABG Base Excess ABG Hemoglobin Oxyhemoglobin Sodium Potassium Chloride Carbon Dioxide BUN Creatinine Glucose POC Glucose 146 H Phosphorus Magnesium Troponin T NT-Pro-B Natriuret Pep Triglycerides Cholesterol LDL Cholesterol Direct HDL Cholesterol TSH Free T4
[2019-05-12] MEDS: fentaNYL 100 MCG/2 ML INJ IV PRN ×2 (13:00→22:31)
[2019-05-12] MEDS: NORepinephrine/NS 4 MG-250 ML 4 MG/250 ML BAG IV SCH (13:30)
--- NOTE | 2019-05-12 14:34 | Progress Note ---
Assessment and Plan Assessment and plan: Patient is a 78 yo AA woman with a history of VA, Diastolic CHF, CAD S/P CABG, DM, Asthma, OA, Anxiety disorder, Chronic Respiratory Failure on 2-3 L Home oxygen due to end stage COPD and ESRD on HD(M,W,F) who presented to [facility] ED on 04/30/2019 with SOB and wheezing for 2 days. Acute on chronic hypoxic respiratory failure >96 hours: trying to wean, CCM Atrial Fibrillation with RVR: metoprolol IV with holding parameters, Cardiology consulted Acute COPD exacerbation: Continue neb treatments, antibiotics, steroids and oxygen supplement Anxiety disorder: Continue Klonopin Hyperglycemia: Continue to monitor likely induced by steroid use. End-stage renal disease: On hemodialysis Friday and Friday, Nephrology note reviewed Acute metabolic acidosis: monitor BMP Chronic diastolic heart failure, Hypertension, Anemia of chronic kidney disease: monitor CBC DVT ppx: sq heparin 05/06: Discussed with office cashier plan is for extubation today. Continue management. 05/07: Discussed with family and office cashier, will proceed with re-intubation and possible plan for Trach and PEG. Daughter informs me that the patient is very anxious and believes that this hampers extubation. Stated that she had discussed with office cashier to reintubate the patient if she failed extubation. She does understand the process of weaning from ventilation. 05/08: Hyperkalemia, Nephrology managing 05/09: Afib, will optimize, and plan for trach and PEG. Cardiology consult. Pulmonary adjusting vent. No changes clinically. Discussed with Surgery, will plan for Trach and Peg 05/11/19: I took over care on Day 11. Still trying to wean vent and vasopressor. Awaiting PEG and trach. Restraints renewed, CCT 32 minutes, 05/12/19: Hemodialysis today, rogerio and PEG tomorrow. History Interval history: Patient was seen and examined. Follow-up on current diagnosis of Afib with RVR. Overnight uneventful as no events directly reported to me. Patient is intubated Imaging, nursing note, chart, labs and old chart reviewed. Hospitalist Physical - Physical exam Narrative exam: Gen: critically ill HEENT: NCAT, ETT in place Neck: supple, no adenopathy, no thyromegaly, no JVD CVS/Heart: irregular irregular, normal S1S2, pulses present bilaterally Chest/Lungs: diminished Symmetrical chest expansion, good air entry bilaterally GI/Abdomen: soft, NTND, good bowel sounds, no guarding or rebound /Bladder: no suprapubic tenderness, no CVA or paraspinal tenderness Extermity/Skin: no c/c/e, no obvious rash MSK: intubated Neuro: intubated Psych: intubated - Constitutional Vitals: Temp Pulse Resp BP Pulse Ox 98.9 F 97 H 22 111/67 100 05/12/19 12:45 05/12/19 13:45 05/12/19 13:00 05/12/19 13:45 05/12/19 13:00 General appearance: Present: other (intubated on the vent) ROB score - Rob Score Age > 65: (1) Yes Aspirin use within the Past 7 Days: (1) Yes 3 or more CAD Risk Factors: (1) Yes 2 or more Angina events in past 24 hrs: (0) No Known CAD with more than 50% Stenosis: (0) No Elevated Cardiac Markers: (0) No ST Deviation Greater than 0.5mm: (0) No ROB Score: 3 Results - Labs CBC & Chem 7: 05/12/19 04:35 05/12/19 04:35 Labs: Laboratory Last Values WBC 17.5 K/mm3 (4.5-11.0) H 05/12/19 04:35 RBC 3.68 M/mm3 (3.65-5.03) 05/12/19 04:35 Hgb 10.5 gm/dl (10.1-14.3) 05/12/19 04:35 Hct 33.1 % (30.3-42.9) 05/12/19 04:35 MCV 90 fl (79-97) 05/12/19 04:35 MCH 29 pg (28-32) 05/12/19 04:35 MCHC 32 % (30-34) 05/12/19 04:35 RDW 17.0 % (13.2-15.2) H 05/12/19 04:35 Plt Count 119 K/mm3 (140-440) L 05/12/19 04:35 Lymph % (Auto) 10.9 % (13.4-35.0) L 04/30/19 11:32 Cottle % (Auto) 7.4 % (0.0-7.3) H 04/30/19 11:32 Eos % (Auto) 0.4 % (0.0-4.3) 04/30/19 11:32 Baso % (Auto) 0.7 % (0.0-1.8) 04/30/19 11:32 Lymph # 0.8 K/mm3 (1.2-5.4) L 04/30/19 11:32 Cottle # 0.5 K/mm3 (0.0-0.8) 04/30/19 11:32 Eos # 0.0 K/mm3 (0.0-0.4) 04/30/19 11: Baso # 0.1 K/mm3 (0.0-0.1) 04/30/19 11:32 Add Manual Diff Complete 05/12/19 04:35 Total Counted 100 05/12/19 04:35 Seg Neutrophils % Manager Provider Relations 05/12/19 04:35 Seg Neuts % (Manual) 98.0 % (40.0-70.0) H 05/12/19 04:35 Band Neutrophils % 0 % 05/12/19 04:35 Lymphocytes % (Manual) 1.0 % (13.4-35.0) L 05/12/19 04:35 Reactive Lymphs % (Man) 0 % 05/12/19 04:35 Monocytes % (Manual) 1.0 % (0.0-7.3) 05/12/19 04:35 Eosinophils % (Manual) 0 % (0.0-4.3) 05/12/19 04:35 Basophils % (Manual) 0 % (0.0-1.8) 05/12/19 04:35 Metamyelocytes % 0 % 05/12/19 04:35 Myelocytes % 0 % 05/12/19 04:35 Promyelocytes % 0 % 05/12/19 04:35 Blast Cells % 0 % 05/12/19 04:35 Nucleated RBC % Not Reportable 05/12/19 04:35 Seg Neutrophils # 6.0 K/mm3 (1.8-7.7) 04/30/19 11:32 Seg Neutrophils # Man 17.2 K/mm3 (1.8-7.7) H 05/12/19 04:35 Band Neutrophils # 0.0 K/mm3 05/12/19 04:35 Lymphocytes # (Manual) 0.2 K/mm3 (1.2-5.4) L 05/12/19 04:35 Abs React Lymphs (Man) 0.0 K/mm3 05/12/19 04:35 Monocytes # (Manual) 0.2 K/mm3 (0.0-0.8) 05/12/19 04:35 Eosinophils # (Manual) 0.0 K/mm3 (0.0-0.4) 05/12/19 04:35 Basophils # (Manual) 0.0 K/mm3 (0.0-0.1) 05/12/19 04:35 Metamyelocytes # 0.0 K/mm3 05/12/19 04:35 Myelocytes # 0.0 K/mm3 05/12/19 04:35 Promyelocytes # 0.0 K/mm3 05/12/19 04:35 Blast Cells # 0.0 K/mm3 05/12/19 04:35 WBC Morphology Not Reportable 05/12/19 04:35 Hypersegmented Neuts Not Reportable 05/12/19 04:35 Hyposegmented Neuts Not Reportable 05/12/19 04:35 Hypogranular Neuts Not Reportable 05/12/19 04:35 Smudge Cells Not Reportable 05/12/19 04:35 Toxic Granulation Not Reportable 05/12/19 04:35 Toxic Vacuolation Not Reportable 05/12/19 04:35 Dohle Bodies Not Reportable 05/12/19 04:35 Pelger-Huet Anomaly Not Reportable 05/12/19 04:35 Ariel Rods Not Reportable 05/12/19 04:35 Platelet Estimate Consistent w auto 05/12/19 04:35 Clumped Platelets Not Reportable 05/12/19 04:35 Plt Clumps, EDTA Not Reportable 05/12/19 04:35 Large Platelets Not Reportable 05/12/19 04:35 Giant Platelets Not Reportable 05/12/19 04:35 Platelet Satelliting Not Reportable 05/12/19 04:35 Plt Morphology Comment Not Reportable 05/12/19 04:35 RBC Morphology Not Reportable 05/12/19 04:35 Dimorphic RBCs Not Reportable 05/12/19 04:35 Polychromasia Not Reportable 05/12/19 04:35 Hypochromasia Not Reportable 05/12/19 04:35 Poikilocytosis Not Reportable 05/12/19 04:35 Anisocytosis 1+ 05/12/19 04:35 Microcytosis Not Reportable 05/12/19 04:35 Macrocytosis Not Reportable 05/12/19 04:35 Spherocytes Not Reportable 05/12/19 04:35 Pappenheimer Bodies Not Reportable 05/12/19 04:35 Sickle Cells Not Reportable 05/12/19 04:35 Target Cells Not Reportable 05/12/19 04:35 Tear Drop Cells Not Reportable 05/12/19 04:35 Ovalocytes Not Reportable 05/12/19 04:35 Helmet Cells Not Reportable 05/12/19 04:35 Edwards-Delafield Bodies Not Reportable 05/12/19 04:35 [place] Rings Not Reportable 05/12/19 04:35 Channing Cells Not Reportable 05/12/19 04:35 Bite Cells Not Reportable 05/12/19 04:35 Crenated Cell Not Reportable 05/12/19 04:35 Elliptocytes Not Reportable 05/12/19 04:35 Acanthocytes (Spur) Not Reportable 05/12/19 04:35 Rouleaux Not Reportable 05/12/19 04:35 Hemoglobin C Crystals Not Reportable 05/12/19 04:35 Schistocytes Not Reportable 05/12/19 04:35 Malaria parasites Not Reportable 05/12/19 04:35 Garland Bodies Not Reportable 05/12/19 04:35 Hem Pathologist Commnt No 05/12/19 04:35 PT 14.3 Sec. (12.2-14.9) 04/30/19 15:23 INR 1.10 (0.87-1.13) 04/30/19 15:23 APTT 37.2 Sec. (24.2-36.6) H 04/30/19 15:23 ABG pH 7.388 pH Units (7.350-7.450) 05/12/19 04:36 ABG pCO2 38.5 mm Hg 05/12/19 04:36 ABG pO2 79.4 mm Hg (80.0-90.0) L 05/12/19 04:36 ABG HCO3 22.7 mmol/L (20.0-26.0) 05/12/19 04:36 ABG O2 Saturation 96.0 % (95.0-99.0) 05/12/19 04:36 ABG O2 Content 14.5 (0.0-44) 05/12/19 04:36 ABG Base Excess -2.0 mmol/L (-2.0-3.0) 05/12/19 04:36 ABG Hemoglobin 10.9 gm/dl (12.0-16.0) L 05/12/19 04:36 ABG Carboxyhemoglobin 1.4 % (0.0-5.0) 05/12/19 04:36 ABG Methemoglobin 0.7 % (0.0-1.5) 05/12/19 04:36 Oxyhemoglobin 94.0 % (95.0-99.0) L 05/12/19 04:36 FiO2 35 % 05/12/19 04:36 Sodium 130 mmol/L (137-145) L D 05/12/19 04:35 Potassium 5.9 mmol/L (3.6-5.0) H D 05/12/19 04:35 Chloride 85.0 mmol/L (98-107) L 05/12/19 04:35 Carbon Dioxide 19 mmol/L (22-30) L 05/12/19 04:35 Anion Gap 32 mmol/L 05/12/19 04:35 BUN 81 mg/dL (7-17) H 05/12/19 04:35 Creatinine 5.7 mg/dL (0.7-1.2) H 05/12/19 04:35 Estimated GFR 9 ml/min 05/12/19 04:35 BUN/Creatinine Ratio 14 % 05/12/19 04:35 Glucose 228 mg/dL (65-100) H 05/12/19 04:35 POC Glucose 146 (70-105) H 05/12/19 11:30 Hemoglobin A1c 5.6 % (4-6) 04/30/19 11:32 Calcium 8.4 mg/dL (8.4-10.2) 05/12/19 04:35 Phosphorus 12.90 mg/dL (2.5-4.5) H 05/03/19 09:44 Magnesium 1.50 mg/dL (1.7-2.3) L 05/11/19 13:00 Total Bilirubin 0.40 mg/dL (0.1-1.2) 05/01/19 12:43 AST 39 units/L (5-40) 05/01/19 12:43 ALT 23 units/L (7-56) 05/01/19 12:43 Alkaline Phosphatase 102 units/L (35-129) 05/01/19 12:43 Total Creatine Kinase Cancelled 04/30/19 14:20 CK-MB (CK-2) Cancelled 04/30/19 14:20 CK-MB (CK-2) Rel Index Cancelled 04/30/19 14:20 Troponin T 0.117 ng/mL (0.00-0.029) H* 04/30/19 14:20 NT-Pro-B Natriuret Pep 18661 pg/mL (0-900) H 04/30/19 14:20 Total Protein 6.6 g/dL (6.3-8.2) 05/01/19 12:43 Albumin 4.0 g/dL (3.9-5) 05/01/19 12:43 Albumin/Globulin Ratio 1.5 % 05/01/19 12:43 Triglycerides 380 mg/dL (2-149) H 05/06/19 04:20 Cholesterol 303 mg/dL (50-199) H 04/30/19 14:20 LDL Cholesterol Direct 190 mg/dL (50-130) H 04/30/19 14:20 HDL Cholesterol 105 mg/dL (40-59) H 04/30/19 14:20 Cholesterol/HDL Ratio 2.88 % 04/30/19 14:20 TSH 0.220 mlU/mL (0.270-4.200) L 05/11/19 13:00 Free T4 0.70 ng/dL (0.76-1.46) L 05/11/19 13:00 Hepatitis A IgM Ab Non-reactive (NonReactive) 04/30/19 14:20 Hep Bs Antigen Non-reactive (Negative) 04/30/19 14:20 Hep B Core IgM Ab Non-reactive (NonReactive) 04/30/19 14:20 Hepatitis C Antibody Non-reactive (NonReactive) 04/30/19 14:20 Microbiology: Microbiology 05/10/19 17:20 Tracheal Aspirate Sputum Culture - Final [place]/IV: Voiding Method Incontinent IV Catheter Type [Left Upper Mid-line arm] IV Catheter Type [Left Mid-line Subclavian] IV Catheter Type [Right Upper INT / Saline Lock arm] IV Catheter Type [Right Hand] INT / Saline Lock IV Catheter Type [Left Forearm INT / Saline Lock ] IV Catheter Type [Right VAS Cath Internal Jugular] Active Medications - Current Medications Current Medications: Generic Name Dose Route Start Last Admin Trade Name Freq PRN Reason Stop Dose Admin Acetaminophen 650 mg 04/30/19 17:44 05/05/19 15:22 Tylenol PO 650 mg Q4H PRN Administration Pain MILD(1-3)/Fever >100.5/HERRMANN Albuterol 2.5 mg 04/30/19 18:32 05/02/19 04:49 Proventil IH 2.5 mg Q3H PRN Administration Shortness Of Breath Albuterol/Ipratropium 1 ampul 05/11/19 14:00 05/12/19 09:27 Duoneb *Not For Prn Use* IH Not Given TIDRT KVNG Allopurinol 100 mg 04/30/19 18:00 05/12/19 09:16 Zyloprim PO 100 mg QDAY KVNG Administration Amiodarone HCl 200 mg 05/12/19 10:00 05/12/19 09:15 Cordarone PO 200 mg QDAY KVNG Administration Lipase/Protease/Amylase 1 each 05/04/19 14:[address] 10,500 Unit FEEDTUBE PRN PRN For Clogged Feeding Tube Arformoterol Tartrate 15 mcg 05/01/19 08:00 05/12/19 09:27 Brovana Nebu IH 15 mcg Q12HRT KVNG Administration Aspirin 81 mg 05/11/19 10:00 05/12/19 09:15 Baby Aspirin PO 81 mg QDAY KVNG Administration Budesonide 0.5 mg 05/03/19 11:00 05/12/19 09:27 Pulmicort IH 0.5 mg Q12HRT KVNG Administration Buspirone HCl 15 mg 05/04/19 10:00 05/12/19 09:15 Buspar PO 15 mg BID KVNG Administration Diltiazem HCl 30 mg 05/11/19 12:00 05/12/19 13:22 Cardizem PO Not Given Q6HR KVNG Famotidine 20 mg 05/10/19 10:00 05/12/19 09:15 Pepcid IV 20 mg DAILY KVNG Administration Fentanyl 50 mcg 05/11/19 10:00 05/11/19 18:51 Sublimaze IV 50 mcg Q2H PRN Administration AGITATION Heparin Sodium (Porcine) 5,000 unit 05/04/19 22:00 05/10/19 22:13 Heparin SUB-Q 5,000 unit Q12HR KVNG Administration Hydralazine HCl 5 mg 05/01/19 22:47 05/11/19 18:52 Apresoline IV 5 mg Q6HR PRN Administration SBP > 160 AND/OR DBP > 100 Hydrophilic Ointment 1 applic 05/04/19 09:42 Vaseline Lip Therapy TP Q2HR PRN Dry Lips Sodium Chloride 100 mls @ 999 mls/hr 04/30/19 13:29 Nacl 0.9% IV ALBINO PRN Hypotension Propofol 1,000 mg in 100 mls @ 1.482 mls/hr 05/04/19 09:00 05/06/19 07:50 Diprivan 10 Mg/Ml IV 0 mcg/kg/min TITR KVNG 0 mls/hr Titration Protocol 5 MCG/KG/MIN Norepinephrine 4 mg in 250 mls @ 7.5 mls/hr 05/08/19 09:00 05/11/19 09:26 Levophed Drip 4 Mg/Ns 250 Ml IV Infused TITR KVNG Titration Protocol 2 MCG/MIN Amiodarone HCl 150 mg/ 103 mls @ 600 mls/hr 05/12/19 15:00 Dextrose IV 05/12/19 15:10 ONCE ONE Insulin Glargine 5 units 05/12/19 22:00 Lantus SUB-Q QHS [facility] Insulin Human Lispro 0 unit 05/05/19 18:00 05/12/19 13:22 Humalog SUB-Q Not Given Q6HR [facility] Protocol Lorazepam 1 mg 05/02/19 11:08 05/10/19 21:53 Ativan IV 1 mg Q4H PRN Administration Anxiety Methylprednisolone Sodium Succinate 60 mg 05/04/19 09:00 05/12/19 09:21 Solu-Medrol IV 60 mg Q6H KVNG Administration Metoclopramide HCl 5 mg 05/10/19 14:00 05/12/19 02:21 Reglan IV 5 mg Q12H KVNG Administration Metoprolol Tartrate 2.5 mg 05/12/19 15:00 Metoprolol IV 05/12/19 15:01 ONCE ONE Montelukast Sodium 10 mg 04/30/19 19:00 05/11/19 18:01 Singulair PO 10 mg QPM KVNG Administration Multi-Ingred Cream/Lotion/Oil/Oint 1 applic 05/04/19 09:42 Artificial Tears Ophth Oint OU Q4HR PRN Dry Eye(s) Pravastatin Sodium 40 mg 04/30/19 22:00 05/11/19 21:29 Pravachol PO 40 mg QHS KVNG Administration Simple Syrup 15 ml 05/04/19 14:58 Simple Syrup FEEDTUBE PRN PRN Hypoglycemia Simple Syrup 30 ml 05/04/19 14:58 Simple Syrup FEEDTUBE PRN PRN Hypoglycemia Sodium Bicarbonate 650 mg 04/30/19 22:00 05/12/19 09:15 Sodium Bicarbonate PO 650 mg BID KVNG Administration Sodium Bicarbonate 325 mg 05/04/19 14:58 Sodium Bicarbonate FEEDTUBE PRN PRN For Clogged Feeding Tube Sodium Chloride 10 ml 04/30/19 22:00 05/12/19 09:16 Sodium Chloride Flush Syringe 10 Ml IV 10 ml BID KVNG Administration Sodium Chloride 10 ml 04/30/19 17:44 05/01/19 03:55 Sodium Chloride Flush Syringe 10 Ml IV 10 ml PRN PRN Administration LINE FLUSH Nutrition/Malnutrition Assess - Dietary Evaluation Nutrition/Malnutrition Findings: Nutrition Notes Start: 05/04/19 11:09 Freq: Status: Active Protocol: Document 05/12/19 10:54 LM (Rec: 05/12/19 10:[address] [email or web address]) Nutrition Notes Initial or Follow up Brief Note Current Diet NPO Subjective/Other Information Pt NPO for trach and PEG placement Nutrition Intervention Follow-Up By: 05/14/19 Additional Comments F/U for TF restart/tolerance
[2019-05-12] MEDS ORDERED: METOPROLOL TARTRATE 5 MG/5 ML INJ IV ONE (15:00)
[2019-05-12] MEDS ORDERED: AMIODARONE 150 MG in DEXTROSE 5% IN WATER 100 ML IV ONE (15:00)
[2019-05-12] MEDS: LORazepam 2 MG/ML VIAL IV PRN (15:46)
[2019-05-12] MEDS: MONTELUKAST 10 MG TAB PO SCH (18:40)
[2019-05-12] MEDS: hydrALAZINE 20 MG/1 ML INJ IV PRN (18:49)
[2019-05-12] MEDS: PRAVASTATIN 40 MG TAB PO SCH (22:34)
[2019-05-12] MEDS: INSULIN GLARGINE 100 UNITS/ML SUB-Q SCH (22:36)
[2019-05-13] MEDS: dilTIAZem 30 MG TAB PO SCH ×4 (00:07→18:31)
[2019-05-13] MEDS: INSULIN LISPRO 100 UNIT/ML SUB-Q SCH ×4 (00:07→18:00)
[2019-05-13] MEDS: METOCLOPRAMIDE 10 MG/2 ML INJ IV SCH ×2 (02:14→14:30)
[2019-05-13] MEDS: fentaNYL 100 MCG/2 ML INJ IV PRN ×2 (02:14→23:03)
[2019-05-13] MEDS: methylPREDNISolone Sod Succinate 125 MG/2 ML INJ IV SCH ×4 (02:14→22:07)
[2019-05-13 05:28] LABS: Hematocrit 31.3 % (30.3-42.9); Mean Corpuscular HGB Conc 32 % (30-34); Mean Corpuscular Volume 90 fl (79-97); Red Blood Count 3.48 M/mm3 (3.65-5.03)
[2019-05-13 05:34] LABS: Platelet Count 122 K/mm3 (140-440)
[2019-05-13 05:49] LABS: Calcium 8.4 mg/dL (8.4-10.2)
[2019-05-13 06:47] LABS: Total Cells Counted 100
[2019-05-13 06:48] LABS: Basophils % (Manual) 0 % (0.0-1.8); Platelet Estimate Consistent w Auto
[2019-05-13] MEDS: ARFORMOTEROL 15 MCG/2 ML NEBU IH SCH ×2 (08:16→22:07)
[2019-05-13] MEDS: BUDESONIDE 0.5 MG/2 ML NEBU IH SCH ×2 (08:16→22:07)
[2019-05-13] MEDS: IPRATROPIUM/ALBUTEROL SULFATE 3 ML AMPUL.NEB IH SCH ×3 (08:17→22:06)
[2019-05-13] MEDS: hydrALAZINE 20 MG/1 ML INJ IV PRN (09:15)
[2019-05-13] MEDS: ASPIRIN 81 MG TAB CHEW PO SCH (09:18)
[2019-05-13] MEDS: AMIODARONE 200 MG TAB PO SCH (09:18)
[2019-05-13] MEDS: allopurinoL 100 MG TAB PO SCH (09:18)
[2019-05-13] MEDS: FAMOTIDINE 20 MG/2 ML INJ IV SCH (09:18)
[2019-05-13] MEDS: SODIUM BICARBONATE 650 MG TAB PO SCH ×2 (09:19→22:06)
[2019-05-13] MEDS: busPIRone 10 MG TAB PO SCH ×2 (09:20→22:05)
[2019-05-13] MEDS ORDERED: SODIUM CHLORIDE 0.9% 1000 ML 1,000 ML ONE (10:09)
[2019-05-13] MEDS ORDERED: propofoL 200 MG/20 ML VIAL IV ONE ×3 (10:23→14:12)
[2019-05-13] MEDS ORDERED: ROCURONIUM 50 MG/5 ML INJ IV ONE (10:24)
--- NOTE | 2019-05-13 11:21 | Procedure Note ---
Date of procedure: 05/13/19 Pre-op diagnosis: VDRF Post-op diagnosis: same Procedure: Tracheostomy Findings: Timeout performed. Patient placed in supine position with a shoulder roll across the posterior shoulders. The neck was slightly hyperextended. Dr. Stephens performed fiberoptic bronchoscopy throughout the procedure. Please see separate note. The anterior neck was prepped and draped in usual sterile fashion. A 2 cm horizontal incision was made in the anterior neck approximately 2 fingerbreadths superior to the sternal notch. Dissection was carried down through the skin and subcutaneous tissue using blunt dissection with a hemostat until the pretracheal fascia was encountered. The endotracheal tube was pulled back per Dr. Stephens and a needle inserted into the trachea under direct visualization. A wire was passed through the needle towards the dat. The needle was then withdrawn and the trachea serially dilated. A 8 Serbian Shiley tracheostomy tube was inserted and the wire and dilator was removed. The balloon was inflated. The bronchoscope was passed through the tracheostomy and was visualized approximately 5 cm above the dat. There was no bleeding and the airways appeared clear. The tracheostomy was connected to the ventilator. The inspiratory and expiratory tidal volumes were satisfactory. The tracheostomy was then secured to the skin using 2-0 Prolene interrupted sutures through each flange. A drain sponge was applied between the skin and the tracheostomy and the neck strap applied. The patient tolerated the procedure well. All sharps were disposed of appropriately. Implants: 8F shiley tracheostomy Anesthesia: KHADRA, local Surgeon: ANKITA BARRIENTOS Estimated blood loss: minimal Pathology: none Condition: stable Disposition: no change
[2019-05-13] MEDS ORDERED: PHENYLEPHRINE/NS 1,000 MCG/10 ML SYRINGE (OR USE) IV ONE (11:23)
--- NOTE | 2019-05-13 11:46 | Progress Note ---
Assessment and Plan Cardiac risk assessment Paroxysmal Afib -currently in sinus rhythm -on amiodarone and diltiazem for suppression Respiratory failure -intubated on the vent ESRD on hemodialysis Severe COPD Hx of coronary artery disease s/p CABG in 2006 Mild cardiomyopathy echocardiogram done 01/2018 reports an ejection fraction of 40-45%. echocardiogram 12/2018 reports an ejection fraction 45-50%. MPI 12/2018 - fixed basal lateral wall defect, no ischemia Hyperlipidemia History of DVT -not on anticoagulation secondary to hematuria Recommendations: Continue amiodarone and cardizem for suppression of atrial fibrillation. 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 OK to proceed with trach/PEG, moderate cardiac risk. Subjective Date of service: 05/13/19 Principal diagnosis: Acute resp failure,COPd exacerbation Interval history: For peg/trach placement today. Stable sinus rhythm on telemetry. Objective Vital Signs Temp Pulse Pulse Pulse Resp Resp BP 05/13/19 09:46 97.1 F L 103 H 27 H 175/70 05/13/19 09:15 95 H 208/100 05/13/19 08:45 94 H 26 H 156/80 05/13/19 08:30 97 H 25 H 190/91 05/13/19 08:24 107 H 175/88 05/13/19 08:17 99 H 28 H 05/13/19 08:15 96 H 27 H 175/88 05/13/19 08:00 93 H 90 29 H 206/87 05/13/19 07:46 90 23 182/80 05/13/19 07:30 93 H 26 H 158/82 05/13/19 07:16 85 25 H 158/82 05/13/19 07:00 93 H 24 117/84 05/13/19 06:45 84 24 117/84 05/13/19 06:30 74 24 94/58 05/13/19 06:15 88 24 85/48 05/13/19 06:00 75 24 85/48 05/13/19 05:46 76 25 H 88/49 05/13/19 05:30 105 H 24 125/68 05/13/19 05:16 123/86 05/13/19 05:15 83 24 123/86 05/13/19 05:00 81 24 83/42 05/13/19 04:46 82 24 87/49 05/13/19 04:30 99 H 26 H 204/78 05/13/19 04:16 105 H 21 185/77 05/13/19 04:00 98.0 F 75 18 94/58 05/13/19 03:46 94 H 25 H 145/79 05/13/19 03:30 86 21 151/70 05/13/19 03:16 96 H 24 121/71 05/13/19 03:00 98.7 F 81 24 92/51 05/13/19 02:45 97 H 23 92/52 05/13/19 02:30 96 H 23 137/90 05/13/19 02:16 97 H 25 H 137/90 05/13/19 02:00 103 H 21 148/99 05/13/19 01:59 92 H 148/99 05/13/19 01:46 96 H 19 147/67 05/13/19 01:30 106 H 22 140/75 05/13/19 01:16 114 H 26 H 153/71 05/13/19 01:00 90 26 H 152/66 05/13/19 00:46 93 H 23 152/66 05/13/19 00:30 87 18 152/84 05/13/19 00:15 87 11 L 132/70 05/13/19 00:07 81 147/66 05/13/19 00:02 87 24 147/66 05/13/19 00:00 98.8 F 89 23 147/66 05/12/19 23:45 94 H 21 138/61 05/12/19 23:30 82 14 128/55 05/12/19 23:15 87 17 142/65 05/12/19 23:00 93 H 17 136/72 05/12/19 22:45 93 H 20 141/80 05/12/19 22:30 92 H 25 H 136/73 05/12/19 22:15 94 H 30 H 133/74 05/12/19 22:00 93 H 26 H 137/71 05/12/19 21:46 94 H 24 137/71 05/12/19 21:30 93 H 23 128/71 05/12/19 21:16 106 H 28 H 125/57 05/12/19 21:00 109 H 22 126/75 05/12/19 20:46 91 H 26 H 129/68 05/12/19 20:37 94 H 123/67 05/12/19 20:36 96 H 26 H 05/12/19 20:30 100 H 29 H 131/72 05/12/19 20:15 103 H 31 H 131/72 05/12/19 20:00 98.9 F 95 H 26 H 129/71 05/12/19 19:45 96 H 28 H 164/78 05/12/19 19:30 94 H 25 H 148/94 05/12/19 19:16 84 28 H 156/87 05/12/19 19:00 88 30 H 187/113 05/12/19 18:49 84 187/113 05/12/19 18:40 84 181/78 05/12/19 18:00 87 17 188/95 05/12/19 17:00 78 24 94/56 05/12/19 16:00 98.4 F 85 88 23 147/80 05/12/19 15:22 96 H 135/77 05/12/19 15:00 131 H 23 137/72 05/12/19 14:53 98.9 F 137 H 24 137/72 05/12/19 14:34 166 H 138/90 05/12/19 14:00 105 H 26 H 153/68 05/12/19 13:45 97 H 111/67 05/12/19 13:30 92 H 87/42 05/12/19 13:15 91 H 116/53 05/12/19 13:00 99 H 18 153/68 05/12/19 12:45 98.9 F 92 H 16 153/68 05/12/19 12:12 103 H 143/87 05/12/19 12:00 98.9 F 102 H 101 H 23 143/87 Pulse Ox Pulse Ox 05/13/19 09:46 100 05/13/19 09:15 05/13/19 08:45 100 05/13/19 08:30 100 05/13/19 08:24 100 05/13/19 08:17 05/13/19 08:15 100 05/13/19 08:00 99 05/13/19 07:46 100 05/13/19 07:30 100 05/13/19 07:16 100 05/13/19 07:00 100 05/13/19 06:45 100 05/13/19 06:30 100 05/13/19 06:15 100 05/13/19 06:00 100 05/13/19 05:46 100 05/13/19 05:30 100 05/13/19 05:16 05/13/19 05:15 100 05/13/19 05:00 100 05/13/19 04:46 100 05/13/19 04:30 100 05/13/19 04:16 100 05/13/19 04:00 100 05/13/19 03:46 100 05/13/19 03:30 99 05/13/19 03:16 100 05/13/19 03:00 99 05/13/19 02:45 100 05/13/19 02:30 100 05/13/19 02:16 100 05/13/19 02:00 100 05/13/19 01:59 100 05/13/19 01:46 100 05/13/19 01:30 100 05/13/19 01:16 100 05/13/19 01:00 100 05/13/19 00:46 100 05/13/19 00:30 100 05/13/19 00:15 100 05/13/19 00:07 05/13/19 00:02 100 05/13/19 00:00 100 05/12/19 23:45 100 05/12/19 23:30 100 05/12/19 23:15 100 05/12/19 23:00 100 05/12/19 22:45 100 05/12/19 22:30 100 05/12/19 22:15 100 05/12/19 22:00 100 05/12/19 21:46 100 05/12/19 21:30 100 05/12/19 21:16 93 05/12/19 21:00 100 05/12/19 20:46 94 05/12/19 20:37 98 05/12/19 20:36 05/12/19 20:30 92 05/12/19 20:15 95 05/12/19 20:00 97 05/12/19 19:45 97 05/12/19 19:30 97 05/12/19 19:16 100 05/12/19 19:00 99 05/12/19 18:49 05/12/19 18:40 05/12/19 18:00 100 05/12/19 17:00 05/12/19 16:00 05/12/19 15:22 05/12/19 15:00 05/12/19 14:53 05/12/19 14:34 05/12/19 14:00 99 05/12/19 13:45 05/12/19 13:30 05/12/19 13:15 05/12/19 13:00 05/12/19 12:45 05/12/19 12:12 05/12/19 12:00 - Physical Examination General: Other (intubated on the vent) Cardiac: Positive: Reg Rate and Rhythm - Labs and Meds CBC 05/13/19 Range/Units 04:30 WBC 17.4 H (4.5-11.0) K/mm3 RBC 3.48 L (3.65-5.03) M/mm3 Hgb 10.0 L (10.1-14.3) gm/dl Hct 31.3 (30.3-42.9) % Plt Count 122 L (140-440) K/mm3 Comprehensive Metabolic Panel 05/13/19 Range/Units 04:30 Sodium 136 L (137-145) mmol/L Potassium 4.5 D (3.6-5.0) mmol/L Chloride 92.4 L (98-107) mmol/L Carbon Dioxide 23 (22-30) mmol/L BUN 61 H (7-17) mg/dL Creatinine 4.6 H (0.7-1.2) mg/dL Glucose 198 H (65-100) mg/dL Calcium 8.4 (8.4-10.2) mg/dL
--- NOTE | 2019-05-13 12:06 | Progress Note ---
Assessment and Plan 78 y/o female with acute on chronic respiratory failure secondary to volume overload, resolved. 1. Continue steroids at 60q6, will drop to 40q8 starting today. 2. Diprovan for sedation with PRN ativan 3. Continue HD per renal 4. Started Buspar prior to intubation, will continue 5. Midline placement, done 6. NG tube placed. Continue until Peg tube can be placed. 7. LTACH pending. CCT 31 minutes. Subjective Date of service: 05/13/19 Principal diagnosis: Acute resp failure,COPd exacerbation Interval history: Trached this am. Unable to illuminate to see for PEG placement so will need to be done by IR. Tolerated well with no acute issues. Had some afib during HD yesterday but BP was stable. Remainder is negative. Objective Vital Signs - 12hr 05/13/19 05/13/19 05/13/19 00:02 00:07 00:15 Temperature Pulse Rate 87 81 87 Pulse Rate [ Anterior Bilateral] Pulse Rate [ From Monitor] Respiratory 24 11 L Rate Respiratory Rate [Anterior Bilateral] Blood Pressure 147/66 147/66 132/70 O2 Sat by Pulse 100 100 Oximetry 05/13/19 05/13/19 05/13/19 00:30 00:46 01:00 Temperature Pulse Rate 87 93 H 90 Pulse Rate [ Anterior Bilateral] Pulse Rate [ From Monitor] Respiratory 18 23 26 H Rate Respiratory Rate [Anterior Bilateral] Blood Pressure 152/84 152/66 152/66 O2 Sat by Pulse 100 100 100 Oximetry 05/13/19 05/13/19 05/13/19 01:16 01:30 01:46 Temperature Pulse Rate 114 H 106 H 96 H Pulse Rate [ Anterior Bilateral] Pulse Rate [ From Monitor] Respiratory 26 H 22 19 Rate Respiratory Rate [Anterior Bilateral] Blood Pressure 153/71 140/75 147/67 O2 Sat by Pulse 100 100 100 Oximetry 05/13/19 05/13/19 05/13/19 01:59 02:00 02:16 Temperature Pulse Rate 92 H 103 H 97 H Pulse Rate [ Anterior Bilateral] Pulse Rate [ From Monitor] Respiratory 21 25 H Rate Respiratory Rate [Anterior Bilateral] Blood Pressure 148/99 148/99 137/90 O2 Sat by Pulse 100 100 100 Oximetry 05/13/19 05/13/19 05/13/19 02:30 02:45 03:00 Temperature 98.7 F Pulse Rate 96 H 97 H 81 Pulse Rate [ Anterior Bilateral] Pulse Rate [ From Monitor] Respiratory 23 23 24 Rate Respiratory Rate [Anterior Bilateral] Blood Pressure 137/90 92/52 92/51 O2 Sat by Pulse 100 100 99 Oximetry 05/13/19 05/13/19 05/13/19 03:16 03:30 03:46 Temperature Pulse Rate 96 H 86 94 H Pulse Rate [ Anterior Bilateral] Pulse Rate [ From Monitor] Respiratory 24 21 25 H Rate Respiratory Rate [Anterior Bilateral] Blood Pressure 121/71 151/70 145/79 O2 Sat by Pulse 100 99 100 Oximetry 05/13/19 05/13/19 05/13/19 04:00 04:16 04:30 Temperature 98.0 F Pulse Rate 75 105 H 99 H Pulse Rate [ Anterior Bilateral] Pulse Rate [ From Monitor] Respiratory 18 21 26 H Rate Respiratory Rate [Anterior Bilateral] Blood Pressure 94/58 185/77 204/78 O2 Sat by Pulse 100 100 100 Oximetry 05/13/19 05/13/19 05/13/19 04:46 05:00 05:15 Temperature Pulse Rate 82 81 83 Pulse Rate [ Anterior Bilateral] Pulse Rate [ From Monitor] Respiratory 24 24 24 Rate Respiratory Rate [Anterior Bilateral] Blood Pressure 87/49 83/42 123/86 O2 Sat by Pulse 100 100 100 Oximetry 05/13/19 05/13/19 05/13/19 05:16 05:30 05:46 Temperature Pulse Rate 105 H 76 Pulse Rate [ Anterior Bilateral] Pulse Rate [ From Monitor] Respiratory 24 25 H Rate Respiratory Rate [Anterior Bilateral] Blood Pressure 123/86 125/68 88/49 O2 Sat by Pulse 100 100 Oximetry 05/13/19 05/13/19 05/13/19 06:00 06:15 06:30 Temperature Pulse Rate 75 88 74 Pulse Rate [ Anterior Bilateral] Pulse Rate [ From Monitor] Respiratory 24 24 24 Rate Respiratory Rate [Anterior Bilateral] Blood Pressure 85/48 85/48 94/58 O2 Sat by Pulse 100 100 100 Oximetry 05/13/19 05/13/19 05/13/19 06:45 07:00 07:16 Temperature Pulse Rate 84 93 H 85 Pulse Rate [ Anterior Bilateral] Pulse Rate [ From Monitor] Respiratory 24 24 25 H Rate Respiratory Rate [Anterior Bilateral] Blood Pressure 117/84 117/84 158/82 O2 Sat by Pulse 100 100 100 Oximetry 05/13/19 05/13/19 05/13/19 07:30 07:46 08:00 Temperature Pulse Rate 93 H 90 93 H Pulse Rate [ Anterior Bilateral] Pulse Rate [ 90 From Monitor] Respiratory 26 H 23 29 H Rate Respiratory Rate [Anterior Bilateral] Blood Pressure 158/82 182/80 206/87 O2 Sat by Pulse 100 100 99 Oximetry 05/13/19 05/13/19 05/13/19 08:15 08:17 08:24 Temperature Pulse Rate 96 H 107 H Pulse Rate [ 99 H Anterior Bilateral] Pulse Rate [ From Monitor] Respiratory 27 H Rate Respiratory 28 H Rate [Anterior Bilateral] Blood Pressure 175/88 175/88 O2 Sat by Pulse 100 100 Oximetry 05/13/19 05/13/19 05/13/19 08:30 08:45 09:15 Temperature Pulse Rate 97 H 94 H 95 H Pulse Rate [ Anterior Bilateral] Pulse Rate [ From Monitor] Respiratory 25 H 26 H Rate Respiratory Rate [Anterior Bilateral] Blood Pressure 190/91 156/80 208/100 O2 Sat by Pulse 100 100 Oximetry 05/13/19 09:46 Temperature 97.1 F L Pulse Rate 103 H Pulse Rate [ Anterior Bilateral] Pulse Rate [ From Monitor] Respiratory 27 H Rate Respiratory Rate [Anterior Bilateral] Blood Pressure 175/70 O2 Sat by Pulse 100 Oximetry Constitutional: other (Sedated and orally intubated) Eyes: non-icteric ENT: other (orally intubated and sedated.) Neck: supple Effort: mildly labored Ascultation: Bilateral: diminished breath sounds, rales, rhonchi Percussion: Bilateral: not dull Cardiovascular: other (sinus tach) Gastrointestinal: normoactive bowel sounds Neurologic: unable to assess CBC and BMP: 05/13/19 04:30 05/13/19 04:30 ABG, PT/INR, D-dimer: ABG ABG pH 7.388 pH Units (7.350-7.450) 05/12/19 04:36 ABG pCO2 38.5 mm Hg 05/12/19 04:36 ABG pO2 79.4 mm Hg (80.0-90.0) L 05/12/19 04:36 ABG O2 Saturation 96.0 % (95.0-99.0) 05/12/19 04:36 PT/INR, D-dimer PT 14.3 Sec. (12.2-14.9) 04/30/19 15:23 INR 1.10 (0.87-1.13) 04/30/19 15:23 Abnormal lab findings: Abnormal Labs 04/30/19 04/30/19 04/30/19 10:12 11:32 11:32 WBC RBC Hgb RDW 17.1 H Plt Count 84 L Lymph % (Auto) 10.9 L [place] % (Auto) 7.4 H Lymph # 0.8 L Seg Neutrophils % 80.6 H Seg Neuts % (Manual) Lymphocytes % (Manual) Nucleated RBC % Seg Neutrophils # Man Lymphocytes # (Manual) Monocytes # (Manual) PT 28.3 H INR 2.59 H APTT ABG pH 7.347 L ABG pO2 221.9 H ABG HCO3 ABG O2 Saturation 99.3 H ABG Base Excess -2.2 L ABG Hemoglobin Oxyhemoglobin Sodium Potassium Chloride Carbon Dioxide BUN Creatinine Glucose POC Glucose Phosphorus Magnesium Troponin T NT-Pro-B Natriuret Pep Triglycerides Cholesterol LDL Cholesterol Direct HDL Cholesterol TSH Free T4 04/30/19 04/30/19 04/30/19 14:20 15:23 18:05 WBC RBC Hgb RDW Plt Count Lymph % (Auto) [place] % (Auto) Lymph # Seg Neutrophils % Seg Neuts % (Manual) Lymphocytes % (Manual) Nucleated RBC % Seg Neutrophils # Man Lymphocytes # (Manual) Monocytes # (Manual) PT INR APTT 37.2 H ABG pH ABG pO2 79.2 L ABG HCO3 ABG O2 Saturation ABG Base Excess ABG Hemoglobin Oxyhemoglobin 94.4 L Sodium 146 H Potassium 3.2 L Chloride Carbon Dioxide BUN 39 H Creatinine 2.6 H Glucose POC Glucose Phosphorus Magnesium Troponin T 0.117 H* NT-Pro-B Natriuret Pep 45573 H Triglycerides 178 H Cholesterol 303 H LDL Cholesterol Direct 190 H HDL Cholesterol 105 H TSH Free T4 04/30/19 05/01/19 05/01/19 22:20 00:48 04:46 WBC RBC Hgb RDW Plt Count Lymph % (Auto) [place] % (Auto) Lymph # Seg Neutrophils % Seg Neuts % (Manual) Lymphocytes % (Manual) Nucleated RBC % Seg Neutrophils # Man Lymphocytes # (Manual) Monocytes # (Manual) PT INR APTT ABG pH ABG pO2 98.3 H ABG HCO3 ABG O2 Saturation ABG Base Excess ABG Hemoglobin Oxyhemoglobin Sodium Potassium Chloride Carbon Dioxide BUN Creatinine Glucose POC Glucose 108 H 142 H Phosphorus Magnesium Troponin T NT-Pro-B Natriuret Pep Triglycerides Cholesterol LDL Cholesterol Direct HDL Cholesterol TSH Free T4 05/01/19 05/01/19 05/01/19 12:43 12:43 13:27 WBC RBC Hgb RDW 16.4 H Plt Count 132 L Lymph % (Auto) [place] % (Auto) Lymph # Seg Neutrophils % Seg Neuts % (Manual) 95.0 H Lymphocytes % (Manual) 3.0 L Nucleated RBC % Seg Neutrophils # Man Lymphocytes # (Manual) 0.2 L Monocytes # (Manual) PT INR APTT ABG pH ABG pO2 ABG HCO3 ABG O2 Saturation ABG Base Excess ABG Hemoglobin Oxyhemoglobin Sodium Potassium Chloride 95.1 L Carbon Dioxide 21 L BUN 29 H Creatinine 3.2 H Glucose 137 H POC Glucose 114 H Phosphorus Magnesium Troponin T NT-Pro-B Natriuret Pep Triglycerides Cholesterol LDL Cholesterol Direct HDL Cholesterol TSH Free T4 05/01/19 05/02/19 05/02/19 18:41 00:01 05:40 WBC RBC Hgb RDW Plt Count Lymph % (Auto) [place] % (Auto) Lymph # Seg Neutrophils % Seg Neuts % (Manual) Lymphocytes % (Manual) Nucleated RBC % Seg Neutrophils # Man Lymphocytes # (Manual) Monocytes # (Manual) PT INR APTT ABG pH ABG pO2 ABG HCO3 ABG O2 Saturation ABG Base Excess ABG Hemoglobin Oxyhemoglobin Sodium Potassium Chloride Carbon Dioxide BUN Creatinine Glucose POC Glucose 127 H 110 H 135 H Phosphorus Magnesium Troponin T NT-Pro-B Natriuret Pep Triglycerides Cholesterol LDL Cholesterol Direct HDL Cholesterol TSH Free T4 05/02/19 05/02/19 05/03/19 13:06 19:14 09:44 WBC RBC Hgb RDW 17.1 H Plt Count Lymph % (Auto) [place] % (Auto) Lymph # Seg Neutrophils % Seg Neuts % (Manual) Lymphocytes % (Manual) Nucleated RBC % Seg Neutrophils # Man Lymphocytes # (Manual) Monocytes # (Manual) PT INR APTT ABG pH ABG pO2 ABG HCO3 ABG O2 Saturation ABG Base Excess ABG Hemoglobin Oxyhemoglobin Sodium Potassium Chloride Carbon Dioxide BUN Creatinine Glucose POC Glucose 152 H 117 H Phosphorus Magnesium Troponin T NT-Pro-B Natriuret Pep Triglycerides Cholesterol LDL Cholesterol Direct HDL Cholesterol TSH Free T4 05/03/19 05/03/19 05/03/19 09:44 10:13 18:45 WBC RBC Hgb RDW Plt Count Lymph % (Auto) [place] % (Auto) Lymph # Seg Neutrophils % Seg Neuts % (Manual) Lymphocytes % (Manual) Nucleated RBC % Seg Neutrophils # Man Lymphocytes # (Manual) Monocytes # (Manual) PT INR APTT ABG pH 7.166 L* ABG pO2 ABG HCO3 ABG O2 Saturation 94.5 L ABG Base Excess -8.8 L ABG Hemoglobin 11.6 L Oxyhemoglobin 92.4 L Sodium Potassium 6.2 H* D Chloride 93.2 L Carbon Dioxide 13 L D BUN 93 H Creatinine 7.2 H D Glucose 138 H POC Glucose 128 H Phosphorus 12.90 H Magnesium 2.70 H Troponin T NT-Pro-B Natriuret Pep Triglycerides Cholesterol LDL Cholesterol Direct HDL Cholesterol TSH Free T4 05/03/19 05/04/19 05/04/19 19:40 01:04 03:51 WBC 11.2 H RBC Hgb RDW 16.6 H Plt Count Lymph % (Auto) [place] % (Auto) Lymph # Seg Neutrophils % Seg Neuts % (Manual) Lymphocytes % (Manual) Nucleated RBC % Seg Neutrophils # Man Lymphocytes # (Manual) Monocytes # (Manual) PT INR APTT ABG pH ABG pO2 ABG HCO3 ABG O2 Saturation ABG Base Excess ABG Hemoglobin Oxyhemoglobin Sodium Potassium Chloride 92.7 L Carbon Dioxide BUN 26 H Creatinine 3.2 H D Glucose 129 H POC Glucose 134 H Phosphorus Magnesium Troponin T NT-Pro-B Natriuret Pep Triglycerides Cholesterol LDL Cholesterol Direct HDL Cholesterol TSH Free T4 05/04/19 05/04/19 05/04/19 03:51 06:05 12:33 WBC RBC Hgb RDW Plt Count Lymph % (Auto) [place] % (Auto) Lymph # Seg Neutrophils % Seg Neuts % (Manual) Lymphocytes % (Manual) Nucleated RBC % Seg Neutrophils # Man Lymphocytes # (Manual) Monocytes # (Manual) PT INR APTT ABG pH ABG pO2 ABG HCO3 ABG O2 Saturation ABG Base Excess ABG Hemoglobin Oxyhemoglobin Sodium Potassium Chloride 92.5 L Carbon Dioxide 19 L BUN 39 H Creatinine 4.3 H Glucose 148 H POC Glucose 138 H 190 H Phosphorus Magnesium Troponin T NT-Pro-B Natriuret Pep Triglycerides Cholesterol LDL Cholesterol Direct HDL Cholesterol TSH Free T4 05/04/19 05/04/19 05/04/19 18:25 23:57 Unknown WBC RBC Hgb RDW Plt Count Lymph % (Auto) [place] % (Auto) Lymph # Seg Neutrophils % Seg Neuts % (Manual) Lymphocytes % (Manual) Nucleated RBC % Seg Neutrophils # Man Lymphocytes # (Manual) Monocytes # (Manual) PT INR APTT ABG pH ABG pO2 ABG HCO3 ABG O2 Saturation ABG Base Excess -3.4 L ABG Hemoglobin Oxyhemoglobin 94.5 L Sodium Potassium Chloride Carbon Dioxide BUN Creatinine Glucose POC Glucose 190 H 119 H Phosphorus Magnesium Troponin T NT-Pro-B Natriuret Pep Triglycerides Cholesterol LDL Cholesterol Direct HDL Cholesterol TSH Free T4 05/05/19 05/05/19 05/05/19 03:45 06:09 12:07 WBC RBC Hgb RDW Plt Count Lymph % (Auto) [place] % (Auto) Lymph # Seg Neutrophils % Seg Neuts % (Manual) Lymphocytes % (Manual) Nucleated RBC % Seg Neutrophils # Man Lymphocytes # (Manual) Monocytes # (Manual) PT INR APTT ABG pH 7.456 H ABG pO2 64.8 L ABG HCO3 ABG O2 Saturation 93.6 L ABG Base Excess ABG Hemoglobin Oxyhemoglobin 91.4 L Sodium Potassium Chloride Carbon Dioxide BUN Creatinine Glucose POC Glucose 173 H 260 H Phosphorus Magnesium Troponin T NT-Pro-B Natriuret Pep Triglycerides Cholesterol LDL Cholesterol Direct HDL Cholesterol TSH Free T4 05/05/19 05/06/19 05/06/19 18:34 00:49 04:20 WBC 12.8 H RBC Hgb RDW 16.9 H Plt Count Lymph % (Auto) [place] % (Auto) Lymph # Seg Neutrophils % Seg Neuts % (Manual) 93.0 H Lymphocytes % (Manual) 2.0 L Nucleated RBC % 1.0 H Seg Neutrophils # Man 11.9 H Lymphocytes # (Manual) 0.3 L Monocytes # (Manual) PT INR APTT ABG pH ABG pO2 ABG HCO3 ABG O2 Saturation ABG Base Excess ABG Hemoglobin Oxyhemoglobin Sodium Potassium Chloride Carbon Dioxide BUN Creatinine Glucose POC Glucose 334 H 230 H Phosphorus Magnesium Troponin T NT-Pro-B Natriuret Pep Triglycerides Cholesterol LDL Cholesterol Direct HDL Cholesterol TSH Free T4 05/06/19 05/06/19 05/06/19 04:20 04:20 05:39 WBC RBC Hgb RDW Plt Count Lymph % (Auto) [place] % (Auto) Lymph # Seg Neutrophils % Seg Neuts % (Manual) Lymphocytes % (Manual) Nucleated RBC % Seg Neutrophils # Man Lymphocytes # (Manual) Monocytes # (Manual) PT INR APTT ABG pH ABG pO2 62.9 L ABG HCO3 ABG O2 Saturation 92.5 L ABG Base Excess ABG Hemoglobin Oxyhemoglobin 90.5 L Sodium Potassium Chloride 95.1 L Carbon Dioxide BUN 40 H Creatinine 3.6 H Glucose 267 H POC Glucose Phosphorus Magnesium Troponin T NT-Pro-B Natriuret Pep Triglycerides 380 H Cholesterol LDL Cholesterol Direct HDL Cholesterol TSH Free T4 05/06/19 05/06/19 05/06/19 06:08 11:15 12:42 WBC RBC Hgb RDW Plt Count Lymph % (Auto) [place] % (Auto) Lymph # Seg Neutrophils % Seg Neuts % (Manual) Lymphocytes % (Manual) Nucleated RBC % Seg Neutrophils # Man Lymphocytes # (Manual) Monocytes # (Manual) PT INR APTT ABG pH 7.344 L ABG pO2 56.8 L ABG HCO3 ABG O2 Saturation 85.5 L ABG Base Excess ABG Hemoglobin Oxyhemoglobin 83.8 L Sodium Potassium Chloride Carbon Dioxide BUN Creatinine Glucose POC Glucose 325 H 168 H Phosphorus Magnesium Troponin T NT-Pro-B Natriuret Pep Triglycerides Cholesterol LDL Cholesterol Direct HDL Cholesterol TSH Free T4 05/06/19 05/07/19 05/07/19 17:30 00:33 05:25 WBC RBC Hgb RDW Plt Count Lymph % (Auto) [place] % (Auto) Lymph # Seg Neutrophils % Seg Neuts % (Manual) Lymphocytes % (Manual) Nucleated RBC % Seg Neutrophils # Man Lymphocytes # (Manual) Monocytes # (Manual) PT INR APTT ABG pH ABG pO2 51.8 L ABG HCO3 ABG O2 Saturation 83.6 L ABG Base Excess -3.3 L ABG Hemoglobin Oxyhemoglobin 81.7 L Sodium Potassium Chloride Carbon Dioxide BUN Creatinine Glucose POC Glucose 172 H 131 H Phosphorus Magnesium Troponin T NT-Pro-B Natriuret Pep Triglycerides Cholesterol LDL Cholesterol Direct HDL Cholesterol TSH Free T4 05/07/19 05/07/19 05/07/19 06:31 13:21 15:15 WBC RBC Hgb RDW Plt Count Lymph % (Auto) [place] % (Auto) Lymph # Seg Neutrophils % Seg Neuts % (Manual) Lymphocytes % (Manual) Nucleated RBC % Seg Neutrophils # Man Lymphocytes # (Manual) Monocytes # (Manual) PT INR APTT ABG pH 7.317 L ABG pO2 64.0 L ABG HCO3 ABG O2 Saturation 89.7 L ABG Base Excess ABG Hemoglobin Oxyhemoglobin 87.8 L Sodium Potassium Chloride Carbon Dioxide BUN Creatinine Glucose POC Glucose 223 H 200 H Phosphorus Magnesium Troponin T NT-Pro-B Natriuret Pep Triglycerides Cholesterol LDL Cholesterol Direct HDL Cholesterol TSH Free T4 05/07/19 05/07/19 05/07/19 18:40 19:35 21:39 WBC RBC Hgb RDW Plt Count Lymph % (Auto) [place] % (Auto) Lymph # Seg Neutrophils % Seg Neuts % (Manual) Lymphocytes % (Manual) Nucleated RBC % Seg Neutrophils # Man Lymphocytes # (Manual) Monocytes # (Manual) PT INR APTT ABG pH ABG pO2 ABG HCO3 ABG O2 Saturation ABG Base Excess ABG Hemoglobin Oxyhemoglobin Sodium Potassium Chloride Carbon Dioxide BUN Creatinine Glucose POC Glucose 142 H 138 H Phosphorus Magnesium 1.60 L Troponin T NT-Pro-B Natriuret Pep Triglycerides Cholesterol LDL Cholesterol Direct HDL Cholesterol TSH Free T4 05/07/19 05/08/19 05/08/19 23:49 09:32 12:31 WBC RBC Hgb RDW Plt Count Lymph % (Auto) [place] % (Auto) Lymph # Seg Neutrophils % Seg Neuts % (Manual) Lymphocytes % (Manual) Nucleated RBC % Seg Neutrophils # Man Lymphocytes # (Manual) Monocytes # (Manual) PT INR APTT ABG pH ABG pO2 65.1 L ABG HCO3 18.7 L ABG O2 Saturation 91.9 L ABG Base Excess -5.8 L ABG Hemoglobin Oxyhemoglobin 90.1 L Sodium Potassium Chloride Carbon Dioxide BUN Creatinine Glucose POC Glucose 195 H 298 H Phosphorus Magnesium Troponin T NT-Pro-B Natriuret Pep Triglycerides Cholesterol LDL Cholesterol Direct HDL Cholesterol TSH Free T4 05/08/19 05/08/19 05/08/19 13:54 14:44 14:44 WBC 15.3 H RBC Hgb RDW 16.9 H Plt Count Lymph % (Auto) [place] % (Auto) Lymph # Seg Neutrophils % Seg Neuts % (Manual) Lymphocytes % (Manual) Nucleated RBC % Seg Neutrophils # Man Lymphocytes # (Manual) Monocytes # (Manual) PT INR APTT ABG pH 7.327 L ABG pO2 67.2 L ABG HCO3 18.4 L ABG O2 Saturation 91.6 L ABG Base Excess -6.8 L ABG Hemoglobin Oxyhemoglobin 89.6 L Sodium Potassium Chloride 91.3 L Carbon Dioxide 17 L BUN 64 H Creatinine 5.0 H Glucose 337 H POC Glucose Phosphorus Magnesium Troponin T NT-Pro-B Natriuret Pep Triglycerides Cholesterol LDL Cholesterol Direct HDL Cholesterol TSH Free T4 05/08/19 05/08/19 05/09/19 17:14 23:49 05:22 WBC RBC Hgb RDW Plt Count Lymph % (Auto) [place] % (Auto) Lymph # Seg Neutrophils % Seg Neuts % (Manual) Lymphocytes % (Manual) Nucleated RBC % Seg Neutrophils # Man Lymphocytes # (Manual) Monocytes # (Manual) PT INR APTT ABG pH ABG pO2 ABG HCO3 ABG O2 Saturation ABG Base Excess ABG Hemoglobin Oxyhemoglobin Sodium Potassium Chloride Carbon Dioxide BUN Creatinine Glucose POC Glucose 396 H 322 H 239 H Phosphorus Magnesium Troponin T NT-Pro-B Natriuret Pep Triglycerides Cholesterol LDL Cholesterol Direct HDL Cholesterol TSH Free T4 05/09/19 05/09/19 05/09/19 07:14 07:14 11:39 WBC 13.6 H RBC Hgb RDW 17.1 H Plt Count Lymph % (Auto) [place] % (Auto) Lymph # Seg Neutrophils % Seg Neuts % (Manual) 91.0 H Lymphocytes % (Manual) 2.0 L Nucleated RBC % 4.0 H Seg Neutrophils # Man 12.4 H Lymphocytes # (Manual) 0.3 L Monocytes # (Manual) PT INR APTT ABG pH ABG pO2 ABG HCO3 ABG O2 Saturation ABG Base Excess ABG Hemoglobin Oxyhemoglobin Sodium 135 L Potassium 5.3 H Chloride 93.5 L Carbon Dioxide 14 L BUN 85 H Creatinine 6.1 H Glucose 242 H POC Glucose 273 H Phosphorus Magnesium Troponin T NT-Pro-B Natriuret Pep Triglycerides Cholesterol LDL Cholesterol Direct HDL Cholesterol TSH Free T4 05/09/19 05/09/19 05/10/19 17:29 21:45 00:11 WBC RBC Hgb RDW Plt Count Lymph % (Auto) [place] % (Auto) Lymph # Seg Neutrophils % Seg Neuts % (Manual) Lymphocytes % (Manual) Nucleated RBC % Seg Neutrophils # Man Lymphocytes # (Manual) Monocytes # (Manual) PT INR APTT ABG pH ABG pO2 ABG HCO3 ABG O2 Saturation ABG Base Excess ABG Hemoglobin Oxyhemoglobin Sodium Potassium Chloride Carbon Dioxide BUN Creatinine Glucose POC Glucose 190 H 190 H 247 H Phosphorus Magnesium Troponin T NT-Pro-B Natriuret Pep Triglycerides Cholesterol LDL Cholesterol Direct HDL Cholesterol TSH Free T4 05/10/19 05/10/19 05/10/19 05:14 05:14 05:42 WBC 21.0 H RBC Hgb RDW 16.8 H Plt Count Lymph % (Auto) [place] % (Auto) Lymph # Seg Neutrophils % Seg Neuts % (Manual) 91.0 H Lymphocytes % (Manual) 2.0 L Nucleated RBC % 7.0 H Seg Neutrophils # Man 19.1 H Lymphocytes # (Manual) 0.4 L Monocytes # (Manual) 1.1 H PT INR APTT ABG pH ABG pO2 ABG HCO3 ABG O2 Saturation ABG Base Excess ABG Hemoglobin Oxyhemoglobin Sodium Potassium Chloride 92.2 L Carbon Dioxide 19 L BUN 111 H Creatinine 7.7 H Glucose 193 H POC Glucose 208 H Phosphorus Magnesium Troponin T NT-Pro-B Natriuret Pep Triglycerides Cholesterol LDL Cholesterol Direct HDL Cholesterol TSH Free T4 05/10/19 05/10/19 05/11/19 12:28 17:45 00:26 WBC RBC Hgb RDW Plt Count Lymph % (Auto) [place] % (Auto) Lymph # Seg Neutrophils % Seg Neuts % (Manual) Lymphocytes % (Manual) Nucleated RBC % Seg Neutrophils # Man Lymphocytes # (Manual) Monocytes # (Manual) PT INR APTT ABG pH ABG pO2 ABG HCO3 ABG O2 Saturation ABG Base Excess ABG Hemoglobin Oxyhemoglobin Sodium Potassium Chloride Carbon Dioxide BUN Creatinine Glucose POC Glucose 275 H 214 H 244 H Phosphorus Magnesium Troponin T NT-Pro-B Natriuret Pep Triglycerides Cholesterol LDL Cholesterol Direct HDL Cholesterol TSH Free T4 05/11/19 05/11/19 05/11/19 04:08 04:23 04:23 WBC 20.5 H RBC Hgb RDW 17.0 H Plt Count 134 L Lymph % (Auto) [place] % (Auto) Lymph # Seg Neutrophils % Seg Neuts % (Manual) 92.0 H Lymphocytes % (Manual) 1.0 L Nucleated RBC % 3.0 H Seg Neutrophils # Man 18.9 H Lymphocytes # (Manual) 0.2 L Monocytes # (Manual) 1.0 H PT INR APTT ABG pH ABG pO2 57.9 L ABG HCO3 ABG O2 Saturation 89.9 L ABG Base Excess ABG Hemoglobin 10.3 L Oxyhemoglobin 87.9 L Sodium Potassium Chloride 90.9 L Carbon Dioxide BUN 50 H Creatinine 4.2 H Glucose 175 H POC Glucose Phosphorus Magnesium Troponin T NT-Pro-B Natriuret Pep Triglycerides Cholesterol LDL Cholesterol Direct HDL Cholesterol TSH Free T4 05/11/19 05/11/19 05/11/19 05:36 12:00 13:00 WBC RBC Hgb RDW Plt Count Lymph % (Auto) [place] % (Auto) Lymph # Seg Neutrophils % Seg Neuts % (Manual) Lymphocytes % (Manual) Nucleated RBC % Seg Neutrophils # Man Lymphocytes # (Manual) Monocytes # (Manual) PT INR APTT ABG pH ABG pO2 ABG HCO3 ABG O2 Saturation ABG Base Excess ABG Hemoglobin Oxyhemoglobin Sodium Potassium Chloride Carbon Dioxide BUN Creatinine Glucose POC Glucose 147 H 318 H Phosphorus Magnesium 1.50 L Troponin T NT-Pro-B Natriuret Pep Triglycerides Cholesterol LDL Cholesterol Direct HDL Cholesterol TSH Free T4 05/11/19 05/11/19 05/11/19 13:00 13:00 18:00 WBC RBC Hgb RDW Plt Count Lymph % (Auto) [place] % (Auto) Lymph # Seg Neutrophils % Seg Neuts % (Manual) Lymphocytes % (Manual) Nucleated RBC % Seg Neutrophils # Man Lymphocytes # (Manual) Monocytes # (Manual) PT INR APTT ABG pH ABG pO2 ABG HCO3 ABG O2 Saturation ABG Base Excess ABG Hemoglobin Oxyhemoglobin Sodium Potassium Chloride Carbon Dioxide BUN Creatinine Glucose POC Glucose 237 H Phosphorus Magnesium Troponin T NT-Pro-B Natriuret Pep Triglycerides Cholesterol LDL Cholesterol Direct HDL Cholesterol TSH 0.220 L Free T4 0.70 L 05/11/19 05/12/19 05/12/19 23:49 03:50 04:35 WBC 17.5 H RBC Hgb RDW 17.0 H Plt Count 119 L Lymph % (Auto) [place] % (Auto) Lymph # Seg Neutrophils % Seg Neuts % (Manual) 98.0 H Lymphocytes % (Manual) 1.0 L Nucleated RBC % Seg Neutrophils # Man 17.2 H Lymphocytes # (Manual) 0.2 L Monocytes # (Manual) PT INR APTT ABG pH ABG pO2 ABG HCO3 ABG O2 Saturation ABG Base Excess ABG Hemoglobin Oxyhemoglobin Sodium Potassium Chloride Carbon Dioxide BUN Creatinine Glucose POC Glucose 117 H 225 H Phosphorus Magnesium Troponin T NT-Pro-B Natriuret Pep Triglycerides Cholesterol LDL Cholesterol Direct HDL Cholesterol TSH Free T4 05/12/19 05/12/19 05/12/19 04:35 04:36 05:51 WBC RBC Hgb RDW Plt Count Lymph % (Auto) [place] % (Auto) Lymph # Seg Neutrophils % Seg Neuts % (Manual) Lymphocytes % (Manual) Nucleated RBC % Seg Neutrophils # Man Lymphocytes # (Manual) Monocytes # (Manual) PT INR APTT ABG pH ABG pO2 79.4 L ABG HCO3 ABG O2 Saturation ABG Base Excess ABG Hemoglobin 10.9 L Oxyhemoglobin 94.0 L Sodium 130 L D Potassium 5.9 H D Chloride 85.0 L Carbon Dioxide 19 L BUN 81 H Creatinine 5.7 H Glucose 228 H POC Glucose 274 H Phosphorus Magnesium Troponin T NT-Pro-B Natriuret Pep Triglycerides Cholesterol LDL Cholesterol Direct HDL Cholesterol TSH Free T4 05/12/19 05/12/19 05/12/19 11:30 18:11 23:53 WBC RBC Hgb RDW Plt Count Lymph % (Auto) [place] % (Auto) Lymph # Seg Neutrophils % Seg Neuts % (Manual) Lymphocytes % (Manual) Nucleated RBC % Seg Neutrophils # Man Lymphocytes # (Manual) Monocytes # (Manual) PT INR APTT ABG pH ABG pO2 ABG HCO3 ABG O2 Saturation ABG Base Excess ABG Hemoglobin Oxyhemoglobin Sodium Potassium Chloride Carbon Dioxide BUN Creatinine Glucose POC Glucose 146 H 307 H 266 H Phosphorus Magnesium Troponin T NT-Pro-B Natriuret Pep Triglycerides Cholesterol LDL Cholesterol Direct HDL Cholesterol TSH Free T4 05/13/19 05/13/19 05/13/19 04:30 04:30 05:24 WBC 17.4 H RBC 3.48 L Hgb 10.0 L RDW 17.0 H Plt Count 122 L Lymph % (Auto) [place] % (Auto) Lymph # Seg Neutrophils % Seg Neuts % (Manual) 97.0 H Lymphocytes % (Manual) 1.0 L Nucleated RBC % Seg Neutrophils # Man 16.9 H Lymphocytes # (Manual) 0.2 L Monocytes # (Manual) PT INR APTT ABG pH ABG pO2 ABG HCO3 ABG O2 Saturation ABG Base Excess ABG Hemoglobin Oxyhemoglobin Sodium 136 L Potassium Chloride 92.4 L Carbon Dioxide BUN 61 H Creatinine 4.6 H Glucose 198 H POC Glucose 182 H Phosphorus Magnesium Troponin T NT-Pro-B Natriuret Pep Triglycerides Cholesterol LDL Cholesterol Direct HDL Cholesterol TSH Free T4
--- NOTE | 2019-05-13 12:24 | Procedure Note ---
Date of procedure: 05/13/19 Pre-op diagnosis: respiratory failure Post-op diagnosis: same Procedure: Bronchoscopy Consent was on the chart. Timeout was called. After adequate sedation was establish, flexible bronchoscope was introduced via the ETT. The airway was clear. ETT was intially at 20cm. We pulled it back to 18cm. Eventually, we ended up pulling it back to 16cm. Under bronchoscopic guidance, Dr. Wade performed the tracheostomy. Introducer needle, dilator, guidewire, larger dilators, and tracheostomy tube were all directly observed during the case. After the tracheostomy tube was inserted, bronchoscope was introduced via the trach tube and position was confirmed. There was no bleeding. The tip of the tube was at least 4-5cm above the dat. Pt tolerated the procedure well. There were no complications. PEG placement attempt Co-Surgeons Mauro Reynoso Anesth MAC (administered by anesthesia provider) EBL min Implant none Procedure - timeout had already been performed. Consent was on the chart. Bite-block was placed. Endoscope was inserted. We intubated the esophagus. Scope was passed down to the stomach. Stomach was insufflated. We were not able to clearly identify as safe location due to essentially no transilluminate. The rest of the stomach was inspected. First and second portions of duodenum were inspected. Esophagus was evaluated as the scope was being pulled out. Multiple areas of NGT trauma were noted in the stomach, but no other abnormalities were seen. Patient tolerated the procedure well. There were no complications. Patient was in stable condition at the end of the case in ICU. Findings: Unable to transilluminate stomach. Multiple areas of NG tube trauma were seen in the stomach. During the bronchoscopy, patient had a lot of thick mucus in the ET tube. The airway itself was mildly irritated but otherwise normal. Implants: none Anesthesia: MAC Surgeon: JAENLLE REYNOSO (Co-surgeon Mauro) Estimated blood loss: minimal Pathology: none Condition: stable Disposition: ICU
[2019-05-13 12:38] LABS: INR 1.13 (0.87-1.13)
[2019-05-13 12:39] LABS: Partial Thromboplastin Time 23.5 Sec. (24.2-36.6)
--- NOTE | 2019-05-13 12:40 | XRay Report ---
CHEST 1 VIEW INDICATION / CLINICAL INFORMATION: trach. COMPARISON: 05/11/2019 FINDINGS: SUPPORT DEVICES: Tracheostomy tube, nasogastric tube, right central venous line HEART / MEDIASTINUM: No significant abnormality. LUNGS / PLEURA: Pleural-parenchymal disease in the left lung base has worsened slightly since 05/11/19 20. The interstitial markings are also more prominent than on the prior exam. No pneumothorax. ADDITIONAL FINDINGS: No significant additional findings. IMPRESSION: Pleural-parenchymal disease in the left lung base has worsened slightly since 05/11/2019. The intersti tial markings are also more prominent than on the prior exam. No other interval change Signer Name: Hubert Savage MD FACR Signed: 05/13/2019 12:36 PM Workstation Name: [id number]
--- NOTE | 2019-05-13 13:20 | Progress Note ---
Subjective Principal diagnosis: Acute resp failure,COPd exacerbation Interval history: Patient was seen today for follow-up of multiple renal related issues dialysis dependent Events of this hospitalization noted Events of 24 hours vitals labs intake output medications were reviewed Past medical history: Reviewed Family history: Reviewed Social history: Reviewed Allergies: Reviewed Physical examination: Vitals: Reviewed HEENT: No pallor or icterus oral mucosa moist Neck: Supple no JVD no thyromegaly Chest: bilateral few basilar crackles Heart: Regular rate and rhythm S1-S2 heard no S3-S4 Abdomen: Soft nontender no voluntary guarding rigidity rebound Extremity: Dry skin less than 1+ peripheral edema Labs and x-rays: Reviewed from today Assessment and plan ESRD currently maintenance of a dialysis Friday and Friday anemia and end-stage renal disease: To monitor and follow Monitor renal-related labs we may need to Discontinue allopurinol, discontinue sodium bicarbonate Cardiomyopathy atrial fibrillation currently being followed by cardiology We'll continue to follow and make recommendation for renal standpoint Objective - Vital Signs Vital signs: Vital Signs - 12hr 05/13/19 05/13/19 05/13/19 01:30 01:46 01:59 Temperature Pulse Rate 106 H 96 H 92 H Pulse Rate [ Anterior Bilateral] Pulse Rate [ From Monitor] Respiratory 22 19 Rate Respiratory Rate [Anterior Bilateral] Blood Pressure 140/75 147/67 148/99 O2 Sat by Pulse 100 100 100 Oximetry 05/13/19 05/13/19 05/13/19 02:00 02:16 02:30 Temperature Pulse Rate 103 H 97 H 96 H Pulse Rate [ Anterior Bilateral] Pulse Rate [ From Monitor] Respiratory 21 25 H 23 Rate Respiratory Rate [Anterior Bilateral] Blood Pressure 148/99 137/90 137/90 O2 Sat by Pulse 100 100 100 Oximetry 05/13/19 05/13/19 05/13/19 02:45 03:00 03:16 Temperature 98.7 F Pulse Rate 97 H 81 96 H Pulse Rate [ Anterior Bilateral] Pulse Rate [ From Monitor] Respiratory 23 24 24 Rate Respiratory Rate [Anterior Bilateral] Blood Pressure 92/52 92/51 121/71 O2 Sat by Pulse 100 99 100 Oximetry 05/13/19 05/13/19 05/13/19 03:30 03:46 04:00 Temperature 98.0 F Pulse Rate 86 94 H 75 Pulse Rate [ Anterior Bilateral] Pulse Rate [ From Monitor] Respiratory 21 25 H 18 Rate Respiratory Rate [Anterior Bilateral] Blood Pressure 151/70 145/79 94/58 O2 Sat by Pulse 99 100 100 Oximetry 05/13/19 05/13/19 05/13/19 04:16 04:30 04:46 Temperature Pulse Rate 105 H 99 H 82 Pulse Rate [ Anterior Bilateral] Pulse Rate [ From Monitor] Respiratory 21 26 H 24 Rate Respiratory Rate [Anterior Bilateral] Blood Pressure 185/77 204/78 87/49 O2 Sat by Pulse 100 100 100 Oximetry 05/13/19 05/13/19 05/13/19 05:00 05:15 05:16 Temperature Pulse Rate 81 83 Pulse Rate [ Anterior Bilateral] Pulse Rate [ From Monitor] Respiratory 24 24 Rate Respiratory Rate [Anterior Bilateral] Blood Pressure 83/42 123/86 123/86 O2 Sat by Pulse 100 100 Oximetry 05/13/19 05/13/19 05/13/19 05:30 05:46 06:00 Temperature Pulse Rate 105 H 76 75 Pulse Rate [ Anterior Bilateral] Pulse Rate [ From Monitor] Respiratory 24 25 H 24 Rate Respiratory Rate [Anterior Bilateral] Blood Pressure 125/68 88/49 85/48 O2 Sat by Pulse 100 100 100 Oximetry 05/13/19 05/13/19 05/13/19 06:15 06:30 06:45 Temperature Pulse Rate 88 74 84 Pulse Rate [ Anterior Bilateral] Pulse Rate [ From Monitor] Respiratory 24 24 24 Rate Respiratory Rate [Anterior Bilateral] Blood Pressure 85/48 94/58 117/84 O2 Sat by Pulse 100 100 100 Oximetry 05/13/19 05/13/19 05/13/19 07:00 07:16 07:30 Temperature Pulse Rate 93 H 85 93 H Pulse Rate [ Anterior Bilateral] Pulse Rate [ From Monitor] Respiratory 24 25 H 26 H Rate Respiratory Rate [Anterior Bilateral] Blood Pressure 117/84 158/82 158/82 O2 Sat by Pulse 100 100 100 Oximetry 05/13/19 05/13/19 05/13/19 07:46 08:00 08:15 Temperature Pulse Rate 90 93 H 96 H Pulse Rate [ Anterior Bilateral] Pulse Rate [ 90 From Monitor] Respiratory 23 29 H 27 H Rate Respiratory Rate [Anterior Bilateral] Blood Pressure 182/80 206/87 175/88 O2 Sat by Pulse 100 99 100 Oximetry 05/13/19 05/13/19 05/13/19 08:17 08:24 08:30 Temperature Pulse Rate 107 H 97 H Pulse Rate [ 99 H Anterior Bilateral] Pulse Rate [ From Monitor] Respiratory 25 H Rate Respiratory 28 H Rate [Anterior Bilateral] Blood Pressure 175/88 190/91 O2 Sat by Pulse 100 100 Oximetry 05/13/19 05/13/19 05/13/19 08:45 09:15 09:46 Temperature 97.1 F L Pulse Rate 94 H 95 H 103 H Pulse Rate [ Anterior Bilateral] Pulse Rate [ From Monitor] Respiratory 26 H 27 H Rate Respiratory Rate [Anterior Bilateral] Blood Pressure 156/80 208/100 175/70 O2 Sat by Pulse 100 100 Oximetry 05/13/19 05/13/19 05/13/19 11:12 11:27 11:45 Temperature 97.9 F Pulse Rate 100 H 94 H 99 H Pulse Rate [ Anterior Bilateral] Pulse Rate [ From Monitor] Respiratory 16 18 24 Rate Respiratory Rate [Anterior Bilateral] Blood Pressure 184/88 144/72 167/89 O2 Sat by Pulse 100 100 100 Oximetry - Lab 05/14/19 05:21 05/14/19 05:21 Most recent lab results ABG pH 7.388 pH Units (7.350-7.450) 05/12/19 04:36 ABG pCO2 38.5 mm Hg 05/12/19 04:36 ABG pO2 79.4 mm Hg (80.0-90.0) L 05/12/19 04:36 ABG HCO3 22.7 mmol/L (20.0-26.0) 05/12/19 04:36 ABG O2 Saturation 96.0 % (95.0-99.0) 05/12/19 04:36 Calcium 8.4 mg/dL (8.4-10.2) 05/13/19 04:30 Phosphorus 12.90 mg/dL (2.5-4.5) H 05/03/19 09:44 Magnesium 1.50 mg/dL (1.7-2.3) L 05/11/19 13:00 Medications & Allergies - Medications Allergies/Adverse Reactions: Allergies latex Allergy (Verified 02/05/19 13:51) Hives milk Allergy (Verified 02/05/19 13:51) Rash Home Medications: Home Medications Medication Instructions Recorded Confirmed Last Taken Type Metoprolol [Lopressor TAB] 50 mg PO BID #60 tablet 01/27/18 05/03/1904/11/20 Rx Montelukast [Singulair] 10 mg PO QPM #30 tablet 01/27/18 05/03/19 04/11/19 Rx Pravastatin [Pravachol] 40 mg PO QHS #30 tablet 01/27/18 05/03/19 04/11/19 Rx allopurinoL [Zyloprim] 100 mg PO QDAY #30 tablet 01/27/18 05/03/19 04/11/19 Rx Famotidine [Pepcid] 20 mg PO BID 06/17/18 05/03/19 04/11/19 History Fluticasone/Vilanterol [Breo 1 each IH BID #1 blst.w.dev 12/31/18 05/03/19 04/11/19 Rx Ellipta 200-25 Mcg INH] Tiotropium [place] [Spiriva 4 gm IH DAILY #1 mist.inhal 12/31/18 05/03/19 04/11/19 Rx Respimat] Aspirin EC [Halfprin EC] 81 mg PO QDAY #30 tablet. 02/18/19 05/03/19 04/11/19 Rx ISOSORBIDE MONOnitrate [Imdur ER] 30 mg PO QDAY #30 tablet 02/18/19 05/03/19 Unknown Rx glipiZIDE [Glucotrol] 5 mg PO QDAY #30 tablet 02/18/19 05/03/19 Unknown Rx ALBUTEROL NEB's [Proventil 0.083% 2.5 mg IH Q4HRT PRN #30 nebu 04/15/19 05/03/19 Unknown Rx NEBS] Furosemide [Lasix] 20 mg PO QDAY #30 tablet 04/15/19 05/03/19 Unknown Rx Ipratropium/Albuterol Sulfate 2 puff IH BID #1 unit 04/15/19 05/03/19 Unknown Rx [Combivent Respimat] Olanzapine/Fluoxetine HCl [Symbyax 1 each PO QHS #30 capsule 04/15/19 05/03/19 Unknown Rx 3-25 mg] Sodium Bicarbonate 650 mg PO BID #60 tablet 04/15/19 05/03/19 Unknown Rx amLODIPine 10 mg PO DAILY #30 tablet 04/15/19 05/03/19 Unknown Rx cefUROXime [Ceftin] 250 mg PO Q12H #14 tablet 04/15/19 05/03/19 Unknown Rx predniSONE [Deltasone] 1 tab PO QDAY #91 tab 04/15/19 05/03/19 Unknown Rx traMADoL [Ultram 50 MG tab] 50 mg PO Q8H PRN #15 tab 04/15/19 05/03/19 04/11/19 Rx Active Medications: Generic Name Dose Route Start Last Admin Trade Name Freq PRN Reason Stop Dose Admin Acetaminophen 650 mg 04/30/19 17:44 05/05/19 15:22 Tylenol PO 650 mg Q4H PRN Administration Pain MILD(1-3)/Fever >100.5/HERRMANN Albuterol 2.5 mg 04/30/19 18:32 05/02/19 04:49 Proventil IH 2.5 mg Q3H PRN Administration Shortness Of Breath Albuterol/Ipratropium 1 ampul 05/11/19 14:00 05/13/19 08:17 Duoneb *Not For Prn Use* IH Not Given TIDRT KVNG Allopurinol 100 mg 04/30/19 18:00 05/13/19 09:18 Zyloprim PO 100 mg QDAY KVNG Administration Amiodarone HCl 200 mg 05/12/19 10:00 05/13/19 09:18 Cordarone PO 200 mg QDAY KVNG Administration Lipase/Protease/Amylase 1 each 05/04/19 14:58 Pancreaze 10,500 Unit FEEDTUBE PRN PRN For Clogged Feeding Tube Arformoterol Tartrate 15 mcg 05/01/19 08:00 05/13/19 08:16 Brovana Nebu IH 15 mcg Q12HRT KVNG Administration Aspirin 81 mg 05/11/19 10:00 05/13/19 09:18 Baby Aspirin PO 81 mg QDAY KVNG Administration Budesonide 0.5 mg 05/03/19 11:00 05/13/19 08:16 Pulmicort IH 0.5 mg Q12HRT KVNG Administration Buspirone HCl 15 mg 05/04/19 10:00 05/13/19 09:20 Buspar PO 15 mg BID KVNG Administration Diltiazem HCl 30 mg 05/11/19 12:00 05/13/19 05:26 Cardizem PO Not Given Q6HR KVNG Famotidine 20 mg 05/10/19 10:00 05/13/19 09:18 Pepcid IV 20 mg DAILY KVNG Administration Fentanyl 50 mcg 05/11/19 10:00 05/13/19 02:14 Sublimaze IV 50 mcg Q2H PRN Administration AGITATION Heparin Sodium (Porcine) 5,000 unit 05/04/19 22:00 05/10/19 22:13 Heparin SUB-Q 5,000 unit Q12HR KVNG Administration Hydralazine HCl 5 mg 05/01/19 22:47 05/13/19 09:15 Apresoline IV 5 mg Q6HR PRN Administration SBP > 160 AND/OR DBP > 100 Hydrophilic Ointment 1 applic 05/04/19 09:42 Vaseline Lip Therapy TP Q2HR PRN Dry Lips Sodium Chloride 100 mls @ 999 mls/hr 04/30/19 13:29 Nacl 0.9% IV ALBINO PRN Hypotension Propofol 1,000 mg in 100 mls @ 1.482 mls/hr 05/04/19 09:00 05/06/19 07:50 Diprivan 10 Mg/Ml IV 0 mcg/kg/min TITR KVNG 0 mls/hr Titration Protocol 5 MCG/KG/MIN Norepinephrine 4 mg in 250 mls @ 7.5 mls/hr 05/08/19 09:00 05/12/19 14:38 Levophed Drip 4 Mg/Ns 250 Ml IV 0 mcg/min TITR KVNG 0 mls/hr Titration Protocol 2 MCG/MIN Insulin Glargine 5 units 05/12/19 22:00 05/12/19 22:36 Lantus SUB-Q 5 units QHS KVNG Administration Insulin Human Lispro 0 unit 05/05/19 18:00 05/13/19 05:26 Humalog SUB-Q Not Given Q6HR [facility] Protocol Lorazepam 1 mg 05/02/19 11:08 05/12/19 15:46 Ativan IV 1 mg Q4H PRN Administration Anxiety Methylprednisolone Sodium Succinate 60 mg 05/04/19 09:00 05/13/19 02:14 Solu-Medrol IV 60 mg Q6H KVNG Administration Metoclopramide HCl 5 mg 05/10/19 14:00 05/13/19 02:14 Reglan IV 5 mg Q12H KVNG Administration Montelukast Sodium 10 mg 04/30/19 19:00 05/12/19 18:40 Singulair PO 10 mg QPM KVNG Administration Multi-Ingred Cream/Lotion/Oil/Oint 1 applic 05/04/19 09:42 Artificial Tears Ophth Oint OU Q4HR PRN Dry Eye(s) Pravastatin Sodium 40 mg 04/30/19 22:00 05/12/19 22:34 Pravachol PO 40 mg QHS KVNG Administration Simple Syrup 15 ml 05/04/19 14:58 Simple Syrup FEEDTUBE PRN PRN Hypoglycemia Simple Syrup 30 ml 05/04/19 14:58 Simple Syrup FEEDTUBE PRN PRN Hypoglycemia Sodium Bicarbonate 650 mg 04/30/19 22:00 05/13/19 09:19 Sodium Bicarbonate PO 650 mg BID KVNG Administration Sodium Bicarbonate 325 mg 05/04/19 14:58 Sodium Bicarbonate FEEDTUBE PRN PRN For Clogged Feeding Tube Sodium Chloride 10 ml 04/30/19 22:00 05/13/19 00:07 Sodium Chloride Flush Syringe 10 Ml IV 10 ml BID KVNG Administration Sodium Chloride 10 ml 04/30/19 17:44 05/01/19 03:55 Sodium Chloride Flush Syringe 10 Ml IV 10 ml PRN PRN Administration LINE FLUSH
--- NOTE | 2019-05-13 13:21 | Cat Scan Report ---
CT ABDOMEN AND PELVIS WITHOUT CONTRAST HISTORY: Abdominal pain. COMPARISON: None TECHNIQUE: Routine abdominal and pelvic CT exam performed . All CT scans at this location are perform ed using CT dose reduction for ALARA by means of automated exposure control. FINDINGS: CT ABDOMEN: Lung Bases: Significant consolidation or atelectasis of the left lower lobe. Right lower lobe pleural -based patchy lung opacities measure 1.9 x 2.3 cm and 1.3 x 0.9 cm. No pleural effusion. Liver: No significant abnormality. Biliary: Gallbladder and bile ducts are normal. Stomach pancreas and duodenum: An irregular mass of the second portion of the duodenum has poorly def ined margins and measures approximately 3.6 x 3.0 x 3.0 cm. It appears to be lateral to the pancreati c head but a pancreatic origin cannot be excluded on this noncontrast study. The stomach is unremarka ble with a nasogastric tube. The proximal duodenum is normal. Spleen: No significant abnormality. Unenlarged. Adrenals: No significant abnormality. Kidneys: No significant abnormality. The renal collecting systems and ureters are nondilated. 1.4 cm exophytic cyst of the upper pole of the right kidney. Lymphatics: No lymphadenopathy. Vasculature: Extensive calcification of the abdominal vasculature. Bowel/Peritoneum: No significant abnormality. No free air. No free fluid. Appendix not visualized. No pericecal inflammation. CT PELVIC: : No significant abnormality. Lymphatics: No lymphadenopathy. Osseous Structures: No aggressive appearing osseous lesions. A left total hip replacement. Additional Findings: None IMPRESSION: 1. 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 A pancrea tic origin cannot be excluded on this noncontrast study. 2. No other significant finding. Signer Name: Mo Prieto MD Signed: 05/13/2019 1:17 PM Workstation Name: [id number]
[2019-05-13] MEDS ORDERED: LIDOCAINE (2%) 20 MG/1 ML VIAL 20 ML MDV INFILTRATI ONE (14:02)
[2019-05-13] MEDS ORDERED: SODIUM CHLORIDE IRRI 500 ML 500 ML IR ONE (14:02)
[2019-05-13] MEDS ORDERED: SODIUM CHLORIDE 0.9% 250ML 250 ML ONE (14:02)
[2019-05-13] MEDS ORDERED: fentaNYL 100 MCG/2 ML INJ ONE ×2 (14:03→14:12)
[2019-05-13] MEDS ORDERED: MIDAZOLAM 2 MG/2 ML INJ ONE (14:03)
[2019-05-13] MEDS ORDERED: LIDOCAINE MPF (2%) 20 MG/1 ML VIAL 5 ML ONE (14:12)
[2019-05-13] MEDS ORDERED: KETAMINE/STERILE WATER 50 MG/ML SYRINGE ONE (14:13)
--- NOTE | 2019-05-13 14:57 | Operative Report ---
Operative Report Operative Report: Exam: Ultrasound and fluoroscopic guided placement of gastrostomy tube Clinical indication: Patient with poor nutritional status requiring feeding tube, unable to place endoscopically Date: 05/13/2019 Procedure: Following an explanation of the risks, benefits and alternatives; written informed consent was obtained from the patient's daughter. The patient was brought to the angiographic suite and placed in supine position on the table. Initial ultrasound evaluation of the abdomen was performed to document the medial margin of the liver. The patient's upper abdomen was prepped and draped in the usual sterile fashion. Following the induction of anesthesia, the stomach was insufflated with 420 mL's of air through the indwelling nasogastric tube. 2% lidocaine was used for anesthesia. A 7 cm 18-gauge needle loaded with a T-tac fastener was then advanced into the stomach. There is prompt return of air. Contrast was injected through the needle which opacified the gastric rugae under fluoroscopy. This was repeated 2 additional times for a total of 3 T-tac fasteners to draw the anterior wall of the stomach to the abdominal wall. A 7 cm 18-gauge needle was then advanced into the stomach under fluoroscopy. Contrast was again injected which demonstrated prompt opacification of the gastric rugrae under fluoroscopy. A 0.035 guidewire was advanced into the stomach and coiled within the fundus under fluoroscopy. The needle was removed. A vertebral catheter was then advanced over the guidewire to more deeply anchor the guidewire within the stomach under fluoroscopy. The vertebral catheter was removed. A telescoping transitional dilator was then advanced over the guidewire under fluoroscopy. The telescoping portion of the dilator was removed leaving the peel-away sheath. There is prompt expulsion of gastric contents and air. An 18 [place] JUSTINA ALVAREZ gastrostomy tube was then advanced over the guidewire through the peel-away sheath under fluoroscopy into the stomach. The balloon was insufflated with 9 mL's of saline combined with 1 mL of contrast for opacification. The peel-away sheath and guidewire were removed. The G-tube was then withdrawn proximally and the disc advanced to fasten the G-tube securely to the skin surface within the stomach. 20 mL's of dilute contrast was then injected through the G-tube with prompt opacification of the uterine fundus. The G-tube was flushed. Sterile dressings were then applied. The patient tolerated the procedure well. There were no immediate postprocedure complications. Sedation was provided by anesthesia services. Respiratory therapy was in attendance. Continuous cardiopulmonary monitoring was utilized. Impression: Ultrasound and fluoroscopic guided placement of 18 [place] gastrostomy tube.
--- NOTE | 2019-05-13 15:40 | Progress Note ---
Assessment and Plan Assessment and plan: Patient is a 78 yo AA woman with a history of [place], Diastolic CHF, CAD S/P CABG, DM, Asthma, OA, Anxiety disorder, Chronic Respiratory Failure on 2-3 L Home oxygen due to end stage COPD and ESRD on HD(M,W,F) who presented to [facility] ED on 04/30/2019 with SOB and wheezing for 2 days. Acute on chronic hypoxic respiratory failure >96 hours: trying to wean, CCM Atrial Fibrillation with RVR: metoprolol IV with holding parameters, Cardiology consulted Acute COPD exacerbation: Continue neb treatments, antibiotics, steroids and oxygen supplement Anxiety disorder: Continue Klonopin Hyperglycemia: Continue to monitor likely induced by steroid use. End-stage renal disease: On hemodialysis Friday and Friday, Nephrology note reviewed Acute metabolic acidosis: monitor BMP Chronic diastolic heart failure, Hypertension, Anemia of chronic kidney disease: monitor CBC DVT ppx: sq heparin 05/06: Discussed with cryptologic technician technical plan is for extubation today. Continue management. 05/07: Discussed with family and cryptologic technician technical, will proceed with re-intubation and possible plan for Trach and PEG. Daughter informs me that the patient is very anxious and believes that this hampers extubation. Stated that she had discussed with cryptologic technician technical to reintubate the patient if she failed extubation. She does understand the process of weaning from ventilation. 05/08: Hyperkalemia, Nephrology managing 05/09: Afib, will optimize, and plan for trach and PEG. Cardiology consult. Pulmonary adjusting vent. No changes clinically. Discussed with Surgery, will plan for Trach and Peg 05/11/19: I took over care on Day 11. Still trying to wean vent and vasopressor. Awaiting PEG and trach. Restraints renewed, CCT 32 minutes, 05/12/19: Hemodialysis today, trach and PEG tomorrow. : Trach and PEG today, restraints renewed. History Interval history: Patient was seen and examined. Follow-up on current diagnosis of Afib with RVR. Overnight uneventful as no events directly reported to me. Patient is intubated Imaging, nursing note, chart, labs and old chart reviewed. Hospitalist Physical - Physical exam Narrative exam: Gen: critically ill HEENT: NCAT, ETT in place Neck: supple, no adenopathy, no thyromegaly, no JVD CVS/Heart: irregular irregular, normal S1S2, pulses present bilaterally Chest/Lungs: diminished Symmetrical chest expansion, good air entry bilaterally GI/Abdomen: soft, NTND, good bowel sounds, no guarding or rebound /Bladder: no suprapubic tenderness, no CVA or paraspinal tenderness Extermity/Skin: no c/c/e, no obvious rash MSK: intubated Neuro: intubated Psych: intubated - Constitutional Vitals: Temp Pulse Resp BP Pulse Ox 97.1 F L 100 H 24 170/102 97 05/13/19 12:00 05/13/19 13:30 05/13/19 13:30 05/13/19 13:30 05/13/19 13:42 General appearance: Present: other (intubated on the vent) ROB score - Rob Score Age > 65: (1) Yes Aspirin use within the Past 7 Days: (1) Yes 3 or more CAD Risk Factors: (1) Yes 2 or more Angina events in past 24 hrs: (0) No Known CAD with more than 50% Stenosis: (0) No Elevated Cardiac Markers: (0) No ST Deviation Greater than 0.5mm: (0) No ROB Score: 3 Results - Labs CBC & Chem 7: 05/13/19 04:30 05/13/19 04:30 Labs: Laboratory Last Values WBC 17.4 K/mm3 (4.5-11.0) H 05/13/19 04:30 RBC 3.48 M/mm3 (3.65-5.03) L 05/13/19 04:30 Hgb 10.0 gm/dl (10.1-14.3) L 05/13/19 04:30 Hct 31.3 % (30.3-42.9) 05/13/19 04:30 MCV 90 fl (79-97) 05/13/19 04:30 MCH 29 pg (28-32) 05/13/19 04:30 MCHC 32 % (30-34) 05/13/19 04:30 RDW 17.0 % (13.2-15.2) H 05/13/19 04:30 Plt Count 122 K/mm3 (140-440) L 05/13/19 04:30 Lymph % (Auto) 10.9 % (13.4-35.0) L 04/30/19 11:32 [place] % (Auto) 7.4 % (0.0-7.3) H 04/30/19 11:32 Eos % (Auto) 0.4 % (0.0-4.3) 04/30/19 11:32 Baso % (Auto) 0.7 % (0.0-1.8) 04/30/19 11:32 Lymph # 0.8 K/mm3 (1.2-5.4) L 04/30/19 11:32 [place] # 0.5 K/mm3 (0.0-0.8) 04/30/19 11: Eos # 0.0 K/mm3 (0.0-0.4) 04/30/19 11: Baso # 0.1 K/mm3 (0.0-0.1) 04/30/19 11:32 Add Manual Diff Complete 05/13/19 04:30 Total Counted 100 05/13/19 04:30 Seg Neutrophils % [employer] 05/13/19 04:30 Seg Neuts % (Manual) 97.0 % (40.0-70.0) H 05/13/19 04:30 Band Neutrophils % 0 % 05/13/19 04:30 Lymphocytes % (Manual) 1.0 % (13.4-35.0) L 05/13/19 04:30 Reactive Lymphs % (Man) 0 % 05/13/19 04:30 Monocytes % (Manual) 1.0 % (0.0-7.3) 05/13/19 04:30 Eosinophils % (Manual) 1.0 % (0.0-4.3) 05/13/19 04:30 Basophils % (Manual) 0 % (0.0-1.8) 05/13/19 04:30 Metamyelocytes % 0 % 05/13/19 04:30 Myelocytes % 0 % 05/13/19 04:30 Promyelocytes % 0 % 05/13/19 04:30 Blast Cells % 0 % 05/13/19 04:30 Nucleated RBC % Not Reportable 05/13/19 04:30 Seg Neutrophils # 6.0 K/mm3 (1.8-7.7) 04/30/19 11:32 Seg Neutrophils # Man 16.9 K/mm3 (1.8-7.7) H 05/13/19 04:30 Band Neutrophils # 0.0 K/mm3 05/13/19 04:30 Lymphocytes # (Manual) 0.2 K/mm3 (1.2-5.4) L 05/13/19 04:30 Abs React Lymphs (Man) 0.0 K/mm3 05/13/19 04:30 Monocytes # (Manual) 0.2 K/mm3 (0.0-0.8) 05/13/19 04:30 Eosinophils # (Manual) 0.2 K/mm3 (0.0-0.4) 05/13/19 04:30 Basophils # (Manual) 0.0 K/mm3 (0.0-0.1) 05/13/19 04:30 Metamyelocytes # 0.0 K/mm3 05/13/19 04:30 Myelocytes # 0.0 K/mm3 05/13/19 04:30 Promyelocytes # 0.0 K/mm3 05/13/19 04:30 Blast Cells # 0.0 K/mm3 05/13/19 04:30 WBC Morphology Not Reportable 05/13/19 04:30 Hypersegmented Neuts Not Reportable 05/13/19 04:30 Hyposegmented Neuts Not Reportable 05/13/19 04:30 Hypogranular Neuts Not Reportable 05/13/19 04:30 Smudge Cells Not Reportable 05/13/19 04:30 Toxic Granulation Not Reportable 05/13/19 04:30 Toxic Vacuolation Not Reportable 05/13/19 04:30 Dohle Bodies Not Reportable 05/13/19 04:30 Pelger-Huet Anomaly Not Reportable 05/13/19 04:30 Ariel Rods Not Reportable 05/13/19 04:30 Platelet Estimate Consistent w auto 05/13/19 04:30 Clumped Platelets Not Reportable 05/13/19 04:30 Plt Clumps, EDTA Not Reportable 05/13/19 04:30 Large Platelets Not Reportable 05/13/19 04:30 Giant Platelets Not Reportable 05/13/19 04:30 Platelet Satelliting Not Reportable 05/13/19 04:30 Plt Morphology Comment Not Reportable 05/13/19 04:30 RBC Morphology Not Reportable 05/13/19 04:30 Dimorphic RBCs Not Reportable 05/13/19 04:30 Polychromasia Not Reportable 05/13/19 04:30 Hypochromasia Not Reportable 05/13/19 04:30 Poikilocytosis Not Reportable 05/13/19 04:30 Anisocytosis Not Reportable 05/13/19 04:30 Microcytosis Not Reportable 05/13/19 04:30 Macrocytosis Not Reportable 05/13/19 04:30 Spherocytes Not Reportable 05/13/19 04:30 Pappenheimer Bodies Not Reportable 05/13/19 04:30 Sickle Cells Not Reportable 05/13/19 04:30 Target Cells Not Reportable 05/13/19 04:30 Tear Drop Cells Not Reportable 05/13/19 04:30 Ovalocytes Not Reportable 05/13/19 04:30 Helmet Cells Not Reportable 05/13/19 04:30 [place] Bodies Not Reportable 05/13/19 04:30 [place] Rings Not Reportable 05/13/19 04:30 Hendrum Cells Not Reportable 05/13/19 04:30 Bite Cells Not Reportable 05/13/19 04:30 Crenated Cell Not Reportable 05/13/19 04:30 Elliptocytes Not Reportable 05/13/19 04:30 Acanthocytes (Spur) Not Reportable 05/13/19 04:30 Rouleaux Not Reportable 05/13/19 04:30 Hemoglobin C Crystals Not Reportable 05/13/19 04:30 Schistocytes Not Reportable 05/13/19 04:30 Malaria parasites Not Reportable 05/13/19 04:30 [place] Bodies Not Reportable 05/13/19 04:30 Hem Pathologist Commnt No 05/13/19 04:30 PT 14.7 Sec. (12.2-14.9) 05/13/19 12:01 INR 1.13 (0.87-1.13) 05/13/19 12:01 APTT 23.5 Sec. (24.2-36.6) L 05/13/19 12:01 ABG pH 7.388 pH Units (7.350-7.450) 05/12/19 04:36 ABG pCO2 38.5 mm Hg 05/12/19 04:36 ABG pO2 79.4 mm Hg (80.0-90.0) L 05/12/19 04:36 ABG HCO3 22.7 mmol/L (20.0-26.0) 05/12/19 04:36 ABG O2 Saturation 96.0 % (95.0-99.0) 05/12/19 04:36 ABG O2 Content 14.5 (0.0-44) 05/12/19 04:36 ABG Base Excess -2.0 mmol/L (-2.0-3.0) 05/12/19 04:36 ABG Hemoglobin 10.9 gm/dl (12.0-16.0) L 05/12/19 04:36 ABG Carboxyhemoglobin 1.4 % (0.0-5.0) 05/12/19 04:36 ABG Methemoglobin 0.7 % (0.0-1.5) 05/12/19 04:36 Oxyhemoglobin 94.0 % (95.0-99.0) L 05/12/19 04:36 FiO2 35 % 05/12/19 04:36 Sodium 136 mmol/L (137-145) L 05/13/19 04:30 Potassium 4.5 mmol/L (3.6-5.0) D 05/13/19 04:30 Chloride 92.4 mmol/L (98-107) L 05/13/19 04:30 Carbon Dioxide 23 mmol/L (22-30) 05/13/19 04:30 Anion Gap 25 mmol/L 05/13/19 04:30 BUN 61 mg/dL (7-17) H 05/13/19 04:30 Creatinine 4.6 mg/dL (0.7-1.2) H 05/13/19 04:30 Estimated GFR 11 ml/min 05/13/19 04:30 BUN/Creatinine Ratio 13 % 05/13/19 04:30 Glucose 198 mg/dL (65-100) H 05/13/19 04:30 POC Glucose 243 (70-105) H 05/13/19 12:27 Hemoglobin A1c 5.6 % (4-6) 04/30/19 11:32 Calcium 8.4 mg/dL (8.4-10.2) 05/13/19 04:30 Phosphorus 12.90 mg/dL (2.5-4.5) H 05/03/19 09:44 Magnesium 1.50 mg/dL (1.7-2.3) L 05/11/19 13:00 Total Bilirubin 0.40 mg/dL (0.1-1.2) 05/01/19 12:43 AST 39 units/L (5-40) 05/01/19 12:43 ALT 23 units/L (7-56) 05/01/19 12:43 Alkaline Phosphatase 102 units/L (35-129) 05/01/19 12:43 Total Creatine Kinase Cancelled 04/30/19 14:20 CK-MB (CK-2) Cancelled 04/30/19 14:20 CK-MB (CK-2) Rel Index Cancelled 04/30/19 14:20 Troponin T 0.117 ng/mL (0.00-0.029) H* 04/30/19 14:20 NT-Pro-B Natriuret Pep 75287 pg/mL (0-900) H 04/30/19 14:20 Total Protein 6.6 g/dL (6.3-8.2) 05/01/19 12:43 Albumin 4.0 g/dL (3.9-5) 05/01/19 12:43 Albumin/Globulin Ratio 1.5 % 05/01/19 12:43 Triglycerides 380 mg/dL (2-149) H 05/06/19 04:20 Cholesterol 303 mg/dL (50-199) H 04/30/19 14:20 LDL Cholesterol Direct 190 mg/dL (50-130) H 04/30/19 14:20 HDL Cholesterol 105 mg/dL (40-59) H 04/30/19 14:20 Cholesterol/HDL Ratio 2.88 % 04/30/19 14:20 TSH 0.220 mlU/mL (0.270-4.200) L 05/11/19 13:00 Free T4 0.70 ng/dL (0.76-1.46) L 05/11/19 13:00 Hepatitis A IgM Ab Non-reactive (NonReactive) 04/30/19 14:20 Hep Bs Antigen Non-reactive (Negative) 04/30/19 14:20 Hep B Core IgM Ab Non-reactive (NonReactive) 04/30/19 14:20 Hepatitis C Antibody Non-reactive (NonReactive) 04/30/19 14:20 Microbiology: Microbiology 05/10/19 17:20 Tracheal Aspirate Sputum Culture - Final [place]/IV: Voiding Method Diaper IV Catheter Type [Left Upper Mid-line arm] IV Catheter Type [Left Mid-line Subclavian] IV Catheter Type [Right Upper INT / Saline Lock arm] IV Catheter Type [Right Hand] INT / Saline Lock IV Catheter Type [Left Forearm INT / Saline Lock ] IV Catheter Type [Right VAS Cath Internal Jugular] Active Medications - Current Medications Current Medications: Generic Name Dose Route Start Last Admin Trade Name Freq PRN Reason Stop Dose Admin Acetaminophen 650 mg 04/30/19 17:44 05/05/19 15:22 Tylenol PO 650 mg Q4H PRN Administration Pain MILD(1-3)/Fever >100.5/HERRMANN Albuterol 2.5 mg 04/30/19 18:32 05/02/19 04:49 Proventil IH 2.5 mg Q3H PRN Administration Shortness Of Breath Albuterol/Ipratropium 1 ampul 05/11/19 14:00 05/13/19 14:43 Duoneb *Not For Prn Use* IH Not Given TIDRT [facility] Allopurinol 100 mg 04/30/19 18:00 05/13/19 09:18 Zyloprim PO 100 mg QDAY KVNG Administration Amiodarone HCl 200 mg 05/12/19 10:00 05/13/19 09:18 Cordarone PO 200 mg QDAY KVNG Administration Lipase/Protease/Amylase 1 each 05/04/19 14:58 Pancreazivania Gould 10,500 Unit FEEDTUBE PRN PRN For Clogged Feeding Tube Arformoterol Tartrate 15 mcg 05/01/19 08:00 05/13/19 08:16 Brovana Nebu IH 15 mcg Q12HRT KVNG Administration Aspirin 81 mg 05/11/19 10:00 05/13/19 09:18 Baby Aspirin PO 81 mg QDAY KVNG Administration Budesonide 0.5 mg 05/03/19 11:00 05/13/19 08:16 Pulmicort IH 0.5 mg Q12HRT KVNG Administration Buspirone HCl 15 mg 05/04/19 10:00 05/13/19 09:20 Buspar PO 15 mg BID KVNG Administration Diltiazem HCl 30 mg 05/11/19 12:00 05/13/19 05:26 Cardizem PO Not Given Q6HR KVNG Famotidine 20 mg 05/10/19 10:00 05/13/19 09:18 Pepcid IV 20 mg DAILY KVNG Administration Fentanyl 50 mcg 05/11/19 10:00 05/13/19 02:14 Sublimaze IV 50 mcg Q2H PRN Administration AGITATION Heparin Sodium (Porcine) 5,000 unit 05/04/19 22:00 05/10/19 22:13 Heparin SUB-Q 5,000 unit Q12HR KVNG Administration Hydralazine HCl 5 mg 05/01/19 22:47 05/13/19 09:15 Apresoline IV 5 mg Q6HR PRN Administration SBP > 160 AND/OR DBP > 100 Hydrophilic Ointment 1 applic 05/04/19 09:42 Vaseline Lip Therapy TP Q2HR PRN Dry Lips Sodium Chloride 100 mls @ 999 mls/hr 04/30/19 13:29 Nacl 0.9% IV ALBINO PRN Hypotension Propofol 1,000 mg in 100 mls @ 1.482 mls/hr 05/04/19 09:00 05/06/19 07:50 Diprivan 10 Mg/Ml IV 0 mcg/kg/min TITR KVNG 0 mls/hr Titration Protocol 5 MCG/KG/MIN Norepinephrine 4 mg in 250 mls @ 7.5 mls/hr 05/08/19 09:00 05/12/19 14:38 Levophed Drip 4 Mg/Ns 250 Ml IV 0 mcg/min TITR KVNG 0 mls/hr Titration Protocol 2 MCG/MIN Insulin Glargine 5 units 05/12/19 22:00 05/12/19 22:36 Lantus SUB-Q 5 units QHS [facility] Administration Insulin Human Lispro 0 unit 05/05/19 18:00 05/13/19 12:30 Humalog SUB-Q Not Given Q6HR [facility] Protocol Lorazepam 1 mg 05/02/19 11:08 05/12/19 15:46 Ativan IV 1 mg Q4H PRN Administration Anxiety Methylprednisolone Sodium Succinate 60 mg 05/04/19 09:00 05/13/19 02:14 Solu-Medrol IV 60 mg Q6H KVNG Administration Metoclopramide HCl 5 mg 05/10/19 14:00 05/13/19 02:14 Reglan IV 5 mg Q12H KVNG Administration Montelukast Sodium 10 mg 04/30/19 19:00 05/12/19 18:40 Singulair PO 10 mg QPM KVNG Administration Multi-Ingred Cream/Lotion/Oil/Oint 1 applic 05/04/19 09:42 Artificial Tears Ophth Oint OU Q4HR PRN Dry Eye(s) Pravastatin Sodium 40 mg 04/30/19 22:00 05/12/19 22:34 Pravachol PO 40 mg QHS KVNG Administration Simple Syrup 15 ml 05/04/19 14:58 Simple Syrup FEEDTUBE PRN PRN Hypoglycemia Simple Syrup 30 ml 05/04/19 14:58 Simple Syrup FEEDTUBE PRN PRN Hypoglycemia Sodium Bicarbonate 650 mg 04/30/19 22:00 05/13/19 09:19 Sodium Bicarbonate PO 650 mg BID KVNG Administration Sodium Bicarbonate 325 mg 05/04/19 14:58 Sodium Bicarbonate FEEDTUBE PRN PRN For Clogged Feeding Tube Sodium Chloride 10 ml 04/30/19 22:00 05/13/19 00:07 Sodium Chloride Flush Syringe 10 Ml IV 10 ml BID KVNG Administration Sodium Chloride 10 ml 04/30/19 17:44 05/01/19 03:55 Sodium Chloride Flush Syringe 10 Ml IV 10 ml PRN PRN Administration LINE FLUSH Nutrition/Malnutrition Assess - Dietary Evaluation Nutrition/Malnutrition Findings: Nutrition Notes Start: 05/04/19 11:09 Freq: Status: Active Protocol: Document 05/12/19 10:54 LM (Rec: 05/12/19 10:56 LM [id number]) Nutrition Notes Initial or Follow up Brief Note Current Diet NPO Subjective/Other Information Pt NPO for trach and PEG placement Nutrition Intervention Follow-Up By: 05/14/19 Additional Comments F/U for TF restart/tolerance
[2019-05-13] MEDS: MONTELUKAST 10 MG TAB PO SCH (18:32)
[2019-05-13] MEDS: PRAVASTATIN 40 MG TAB PO SCH (22:05)
[2019-05-13] MEDS: INSULIN GLARGINE 100 UNITS/ML SUB-Q SCH (22:06)
[2019-05-14] MEDS: dilTIAZem 30 MG TAB PO SCH ×4 (00:34→18:01)
[2019-05-14] MEDS: METOCLOPRAMIDE 10 MG/2 ML INJ IV SCH ×2 (02:00→14:30)
[2019-05-14] MEDS: methylPREDNISolone Sod Succinate 125 MG/2 ML INJ IV SCH ×4 (03:00→22:28)
[2019-05-14 05:54] LABS: Hematocrit 31.9 % (30.3-42.9); Hemoglobin 10.3 gm/dl (10.1-14.3); Mean Corpuscular HGB Conc 32 % (30-34); Mean Corpuscular Volume 90 fl (79-97); Platelet Count 118 K/mm3 (140-440); Red Blood Count 3.55 M/mm3 (3.65-5.03); Red Cell Distribution Width 16.8 % (13.2-15.2)
[2019-05-14 06:49] LABS: Basophils % (Manual) 0 % (0.0-1.8); Eosinophils % (Manual) 0 % (0.0-4.3); Total Cells Counted 100
[2019-05-14 06:51] LABS: Platelet Estimate Consistent w Auto; Tear Drop Cells Few
[2019-05-14] MEDS: INSULIN LISPRO 100 UNIT/ML SUB-Q SCH ×4 (07:00→18:03)
[2019-05-14] MEDS: IPRATROPIUM/ALBUTEROL SULFATE 3 ML AMPUL.NEB IH SCH ×3 (07:24→20:35)
[2019-05-14] MEDS: BUDESONIDE 0.5 MG/2 ML NEBU IH SCH ×2 (07:24→20:35)
[2019-05-14] MEDS: ARFORMOTEROL 15 MCG/2 ML NEBU IH SCH ×2 (07:24→20:35)
[2019-05-14] MEDS: AMIODARONE 200 MG TAB PO SCH (09:38)
[2019-05-14] MEDS: busPIRone 10 MG TAB PO SCH ×2 (09:38→22:29)
[2019-05-14] MEDS: FAMOTIDINE 20 MG/2 ML INJ IV SCH (09:38)
[2019-05-14] MEDS: ASPIRIN 81 MG TAB CHEW PO SCH (09:39)
[2019-05-14] MEDS ORDERED: INSULIN GLARGINE 100 UNITS/ML SUB-Q ONE (10:00)
--- NOTE | 2019-05-14 10:34 | Progress Note ---
Assessment and Plan Paroxysmal Afib -currently in sinus rhythm -on amiodarone and diltiazem for suppression Respiratory failure -s/p vent to trach ESRD on hemodialysis Severe COPD Hx of coronary artery disease s/p CABG in 2006 Mild cardiomyopathy echocardiogram done 01/2018 reports an ejection fraction of 40-45%. echocardiogram 12/2018 reports an ejection fraction 45-50%. MPI 12/2018 - fixed basal lateral wall defect, no ischemia Hyperlipidemia History of DVT -not on anticoagulation secondary to hematuria Recommendations: Continue amiodarone and cardizem for suppression of atrial fibrillation. Patient is not a candidate for penitentiary oral anticoagulation or aggressive cardiac therapies. Otherwise, conservative cardiac management. Subjective Date of service: 05/14/19 Principal diagnosis: Acute resp failure,COPd exacerbation Interval history: No cardiac events overnight. Stable sinus rhythm on telemetry. Objective Vital Signs Temp Pulse Pulse Pulse Resp Resp BP 05/14/19 10:00 101 H 31 H 154/77 05/14/19 09:46 101 H 32 H 154/77 05/14/19 09:30 91 H 25 H 171/102 05/14/19 09:16 98 H 25 H 171/102 05/14/19 09:00 101 H 31 H 171/102 05/14/19 08:46 94 H 28 H 186/106 05/14/19 08:30 94 H 24 199/94 05/14/19 08:16 92 H 23 199/94 05/14/19 08:00 95.6 F L 93 H 93 H 26 H 209/117 05/14/19 07:46 86 20 209/117 05/14/19 07:30 99 H 27 H 200/113 05/14/19 07:24 96 H 24 05/14/19 07:20 89 187/114 05/14/19 07:16 89 22 193/77 05/14/19 07:00 85 24 193/77 05/14/19 06:59 94 H 92/52 05/14/19 06:46 91 H 16 92/52 05/14/19 06:30 82 24 92/52 05/14/19 06:16 84 24 87/55 05/14/19 06:00 85 25 H 168/105 05/14/19 05:46 94 H 24 168/105 05/14/19 05:30 100 H 24 168/105 05/14/19 05:21 96 H 212/169 05/14/19 05:16 98 H 26 H 201/90 05/14/19 05:00 91 H 25 H 201/90 05/14/19 04:46 94 H 28 H 218/101 05/14/19 04:30 87 24 149/74 05/14/19 04:16 99 H 29 H 149/74 05/14/19 04:00 102 H 81 25 H 215/93 05/14/19 03:46 88 25 H 212/103 05/14/19 03:34 97.3 F L 05/14/19 03:30 86 26 H 102/46 05/14/19 03:16 90 24 102/46 05/14/19 03:00 87 24 102/46 05/14/19 02:46 90 24 96/62 05/14/19 02:30 91 H 23 81/51 05/14/19 02:16 86 24 81/51 05/14/19 02:00 88 24 197/86 05/14/19 01:46 106 H 30 H 197/86 05/14/19 01:30 97 H 27 H 168/112 05/14/19 01:16 92 H 24 168/112 05/14/19 01:00 107 H 30 H 168/112 05/14/19 00:52 103 H 164/92 05/14/19 00:46 96 H 26 H 164/92 05/14/19 00:34 99 H 164/92 05/14/19 00:30 97 H 25 H 164/92 05/14/19 00:16 97 H 25 H 164/83 05/14/19 00:00 86 81 24 193/70 05/13/19 23:46 98.8 F 102 H 30 H 193/70 05/13/19 23:30 98 H 26 H 170/76 05/13/19 23:16 85 24 170/76 05/13/19 23:00 95 H 30 H 224/104 05/13/19 22:46 94 H 22 209/109 05/13/19 22:42 101 H 31 H 209/109 05/13/19 22:30 93 H 31 H 209/109 05/13/19 22:16 98 H 28 H 184/88 05/13/19 22:05 94 H 28 H 05/13/19 22:01 94 H 184/88 05/13/19 22:00 94 H 29 H 186/78 05/13/19 21:46 93 H 27 H 186/78 05/13/19 21:30 86 24 95/57 05/13/19 21:28 05/13/19 21:16 77 24 95/57 05/13/19 21:00 84 24 89/56 05/13/19 20:46 86 24 89/56 05/13/19 20:30 93 H 24 89/56 05/13/19 20:28 97.8 F 05/13/19 20:16 87 24 86/50 05/13/19 20:00 98.4 F 87 81 23 86/50 05/13/19 19:46 89 28 H 192/101 05/13/19 19:30 87 23 107/57 05/13/19 19:16 94 H 29 H 192/101 05/13/19 19:00 92 H 26 H 226/97 05/13/19 18:46 81 23 127/74 05/13/19 18:30 78 22 127/74 05/13/19 18:16 78 24 89/52 05/13/19 18:00 79 23 117/81 05/13/19 17:45 76 24 96/49 05/13/19 17:30 76 24 89/52 05/13/19 17:16 77 24 86/54 05/13/19 17:00 76 25 H 88/54 05/13/19 16:46 77 24 174/79 05/13/19 16:30 84 25 H 192/85 05/13/19 16:16 78 24 119/66 05/13/19 16:00 96.0 F L 80 98 H 25 H 119/66 05/13/19 15:46 83 24 86/50 05/13/19 15:30 81 25 H 86/50 05/13/19 15:18 82 24 99/61 05/13/19 13:42 05/13/19 13:30 100 H 24 170/102 05/13/19 13:28 90 170/102 05/13/19 13:16 96 H 23 170/102 05/13/19 13:00 101 H 26 H 170/102 05/13/19 12:52 182/86 05/13/19 12:30 182/86 05/13/19 12:16 98 H 24 182/86 05/13/19 12:00 97.1 F L 97 H 98 H 25 H 182/86 05/13/19 11:46 101 H 15 175/96 05/13/19 11:45 99 H 24 167/89 05/13/19 11:30 87 24 121/68 05/13/19 11:27 94 H 18 144/72 05/13/19 11:16 89 24 149/58 05/13/19 11:12 97.9 F 100 H 16 184/88 05/13/19 11:00 125 H 21 100/59 05/13/19 10:46 93 H 16 57/35 Pulse Ox Pulse Ox 05/14/19 10:00 100 05/14/19 09:46 100 05/14/19 09:30 100 05/14/19 09:16 100 05/14/19 09:00 100 05/14/19 08:46 100 05/14/19 08:30 100 05/14/19 08:16 100 05/14/19 08:00 100 05/14/19 07:46 100 05/14/19 07:30 100 05/14/19 07:24 05/14/19 07:20 100 05/14/19 07:16 99 05/14/19 07:00 100 05/14/19 06:59 05/14/19 06:46 98 05/14/19 06:30 99 05/14/19 06:16 99 05/14/19 06:00 100 05/14/19 05:46 98 05/14/19 05:30 99 05/14/19 05:21 99 05/14/19 05:16 100 05/14/19 05:00 100 05/14/19 04:46 100 05/14/19 04:30 100 05/14/19 04:16 100 05/14/19 04:00 100 05/14/19 03:46 100 05/14/19 03:34 05/14/19 03:30 100 05/14/19 03:16 100 05/14/19 03:00 99 05/14/19 02:46 100 05/14/19 02:30 100 05/14/19 02:16 100 05/14/19 02:00 100 05/14/19 01:46 99 05/14/19 01:30 99 05/14/19 01:16 100 05/14/19 01:00 100 05/14/19 00:52 100 05/14/19 00:46 99 05/14/19 00:34 05/14/19 00:30 100 05/14/19 00:16 100 05/14/19 00:00 100 05/13/19 23:46 100 05/13/19 23:30 100 05/13/19 23:16 100 05/13/19 23:00 100 05/13/19 22:46 100 05/13/19 22:42 100 05/13/19 22:30 100 05/13/19 22:16 100 05/13/19 22:05 05/13/19 22:01 100 05/13/19 22:00 100 05/13/19 21:46 100 05/13/19 21:30 100 05/13/19 21:28 97 05/13/19 21:16 100 05/13/19 21:00 100 05/13/19 20:46 100 05/13/19 20:30 100 05/13/19 20:28 05/13/19 20:16 100 05/13/19 20:00 99 05/13/19 19:46 100 05/13/19 19:30 100 05/13/19 19:16 99 05/13/19 19:00 99 05/13/19 18:46 100 05/13/19 18:30 100 05/13/19 18:16 100 05/13/19 18:00 99 05/13/19 17:45 99 05/13/19 17:30 99 05/13/19 17:16 98 05/13/19 17:00 98 05/13/19 16:46 99 05/13/19 16:30 99 05/13/19 16:16 98 05/13/19 16:00 97 05/13/19 15:46 97 05/13/19 15:30 98 05/13/19 15:18 100 05/13/19 13:42 97 05/13/19 13:30 96 05/13/19 13:28 97 05/13/19 13:16 97 05/13/19 13:00 97 05/13/19 12:52 05/13/19 12:30 05/13/19 12:16 05/13/19 12:00 05/13/19 11:46 05/13/19 11:45 05/13/19 11:30 05/13/19 11:27 05/13/19 11:16 05/13/19 11:12 05/13/19 11:00 05/13/19 10:46 91 - Physical Examination General: No Apparent Distress Neck: Positive: Other (vent to trach) Cardiac: Positive: Reg Rate and Rhythm - Labs and Meds Coagulation 05/13/19 Range/Units 12:01 PT 14.7 (12.2-14.9) Sec. INR 1.13 (0.87-1.13) APTT 23.5 L (24.2-36.6) Sec. CBC 05/14/19 Range/Units 05:21 WBC 16.3 H (4.5-11.0) K/mm3 RBC 3.55 L (3.65-5.03) M/mm3 Hgb 10.3 (10.1-14.3) gm/dl Hct 31.9 (30.3-42.9) % Plt Count 118 L (140-440) K/mm3 Comprehensive Metabolic Panel 05/14/19 Range/Units 05:21 Sodium 137 (137-145) mmol/L Potassium 3.9 (3.6-5.0) mmol/L Chloride 92.2 L (98-107) mmol/L Carbon Dioxide 18 L (22-30) mmol/L BUN 79 H (7-17) mg/dL Creatinine 5.7 H (0.7-1.2) mg/dL Glucose 243 H (65-100) mg/dL Calcium 9.0 (8.4-10.2) mg/dL
[2019-05-14] MEDS: hydrALAZINE 20 MG/1 ML INJ IV PRN ×2 (10:38→18:09)
[2019-05-14] MEDS: fentaNYL 100 MCG/2 ML INJ IV PRN ×3 (10:47→22:30)
--- NOTE | 2019-05-14 11:56 | Progress Note ---
Assessment and Plan 78 y/o female with acute on chronic respiratory failure secondary to volume overload, resolved. 1. Continue steroids at 60q6, will drop to 40q8 starting today. 2. Diprovan for sedation with PRN ativan 3. Continue HD per renal 4. Started Buspar prior to intubation, will continue 5. Midline placement, done 6. NG tube placed. Continue until Peg tube can be placed. 7. LTACH pending. Patient has been in intensive care for 14 days. CCT 31 minutes. Subjective Date of service: 05/14/19 Principal diagnosis: Acute resp failure,COPd exacerbation Interval history: No acute events. Trach site looks good. Peg is being used. Awake but still not following commands. Will look at you when you call her name. Objective Vital Signs - 12hr 05/14/19 05/14/19 05/14/19 00:00 00:16 00:30 Temperature Pulse Rate 86 97 H 97 H Pulse Rate [ Anterior Bilateral] Pulse Rate [ 81 From Monitor] Respiratory 24 25 H 25 H Rate Respiratory Rate [Anterior Bilateral] Blood Pressure 193/70 164/83 164/92 O2 Sat by Pulse 100 100 100 Oximetry 05/14/19 05/14/19 05/14/19 00:34 00:46 00:52 Temperature Pulse Rate 99 H 96 H 103 H Pulse Rate [ Anterior Bilateral] Pulse Rate [ From Monitor] Respiratory 26 H Rate Respiratory Rate [Anterior Bilateral] Blood Pressure 164/92 164/92 164/92 O2 Sat by Pulse 99 100 Oximetry 05/14/19 05/14/19 05/14/19 01:00 01:16 01:30 Temperature Pulse Rate 107 H 92 H 97 H Pulse Rate [ Anterior Bilateral] Pulse Rate [ From Monitor] Respiratory 30 H 24 27 H Rate Respiratory Rate [Anterior Bilateral] Blood Pressure 168/112 168/112 168/112 O2 Sat by Pulse 100 100 99 Oximetry 05/14/19 05/14/19 05/14/19 01:46 02:00 02:16 Temperature Pulse Rate 106 H 88 86 Pulse Rate [ Anterior Bilateral] Pulse Rate [ From Monitor] Respiratory 30 H 24 24 Rate Respiratory Rate [Anterior Bilateral] Blood Pressure 197/86 197/86 81/51 O2 Sat by Pulse 99 100 100 Oximetry 05/14/19 05/14/19 05/14/19 02:30 02:46 03:00 Temperature Pulse Rate 91 H 90 87 Pulse Rate [ Anterior Bilateral] Pulse Rate [ From Monitor] Respiratory 23 24 24 Rate Respiratory Rate [Anterior Bilateral] Blood Pressure 81/51 96/62 102/46 O2 Sat by Pulse 100 100 99 Oximetry 05/14/19 05/14/19 05/14/19 03:16 03:30 03:34 Temperature 97.3 F L Pulse Rate 90 86 Pulse Rate [ Anterior Bilateral] Pulse Rate [ From Monitor] Respiratory 24 26 H Rate Respiratory Rate [Anterior Bilateral] Blood Pressure 102/46 102/46 O2 Sat by Pulse 100 100 Oximetry 05/14/19 05/14/19 05/14/19 03:46 04:00 04:16 Temperature Pulse Rate 88 102 H 99 H Pulse Rate [ Anterior Bilateral] Pulse Rate [ 81 From Monitor] Respiratory 25 H 25 H 29 H Rate Respiratory Rate [Anterior Bilateral] Blood Pressure 212/103 215/93 149/74 O2 Sat by Pulse 100 100 100 Oximetry 05/14/19 05/14/19 05/14/19 04:30 04:46 05:00 Temperature Pulse Rate 87 94 H 91 H Pulse Rate [ Anterior Bilateral] Pulse Rate [ From Monitor] Respiratory 24 28 H 25 H Rate Respiratory Rate [Anterior Bilateral] Blood Pressure 149/74 218/101 201/90 O2 Sat by Pulse 100 100 100 Oximetry 05/14/19 05/14/19 05/14/19 05:16 05:21 05:30 Temperature Pulse Rate 98 H 96 H 100 H Pulse Rate [ Anterior Bilateral] Pulse Rate [ From Monitor] Respiratory 26 H 24 Rate Respiratory Rate [Anterior Bilateral] Blood Pressure 201/90 212/169 168/105 O2 Sat by Pulse 100 99 99 Oximetry 05/14/19 05/14/19 05/14/19 05:46 06:00 06:16 Temperature Pulse Rate 94 H 85 84 Pulse Rate [ Anterior Bilateral] Pulse Rate [ From Monitor] Respiratory 24 25 H 24 Rate Respiratory Rate [Anterior Bilateral] Blood Pressure 168/105 168/105 87/55 O2 Sat by Pulse 98 100 99 Oximetry 05/14/19 05/14/19 05/14/19 06:30 06:46 06:59 Temperature Pulse Rate 82 91 H 94 H Pulse Rate [ Anterior Bilateral] Pulse Rate [ From Monitor] Respiratory 24 16 Rate Respiratory Rate [Anterior Bilateral] Blood Pressure 92/52 92/52 92/52 O2 Sat by Pulse 99 98 Oximetry 05/14/19 05/14/19 05/14/19 07:00 07:16 07:20 Temperature Pulse Rate 85 89 89 Pulse Rate [ Anterior Bilateral] Pulse Rate [ From Monitor] Respiratory 24 22 Rate Respiratory Rate [Anterior Bilateral] Blood Pressure 193/77 193/77 187/114 O2 Sat by Pulse 100 99 100 Oximetry 05/14/19 05/14/19 05/14/19 07:24 07:30 07:46 Temperature Pulse Rate 99 H 86 Pulse Rate [ 96 H Anterior Bilateral] Pulse Rate [ From Monitor] Respiratory 27 H 20 Rate Respiratory 24 Rate [Anterior Bilateral] Blood Pressure 200/113 209/117 O2 Sat by Pulse 100 100 Oximetry 05/14/19 05/14/19 05/14/19 08:00 08:16 08:30 Temperature 95.6 F L Pulse Rate 93 H 92 H 94 H Pulse Rate [ Anterior Bilateral] Pulse Rate [ 93 H From Monitor] Respiratory 26 H 23 24 Rate Respiratory Rate [Anterior Bilateral] Blood Pressure 209/117 199/94 199/94 O2 Sat by Pulse 100 100 100 Oximetry 05/14/19 05/14/19 05/14/19 08:46 09:00 09:16 Temperature Pulse Rate 94 H 101 H 98 H Pulse Rate [ Anterior Bilateral] Pulse Rate [ From Monitor] Respiratory 28 H 31 H 25 H Rate Respiratory Rate [Anterior Bilateral] Blood Pressure 186/106 171/102 171/102 O2 Sat by Pulse 100 100 100 Oximetry 05/14/19 05/14/19 05/14/19 09:30 09:46 10:00 Temperature Pulse Rate 91 H 101 H 101 H Pulse Rate [ Anterior Bilateral] Pulse Rate [ From Monitor] Respiratory 25 H 32 H 31 H Rate Respiratory Rate [Anterior Bilateral] Blood Pressure 171/102 154/77 154/77 O2 Sat by Pulse 100 100 100 Oximetry 05/14/19 05/14/19 10:38 11:36 Temperature Pulse Rate 96 H 101 H Pulse Rate [ Anterior Bilateral] Pulse Rate [ From Monitor] Respiratory Rate Respiratory Rate [Anterior Bilateral] Blood Pressure 221/89 164/74 O2 Sat by Pulse 99 Oximetry Constitutional: other (Sedated and orally intubated) Eyes: non-icteric ENT: other (orally intubated and sedated.) Neck: supple Effort: mildly labored Ascultation: Bilateral: diminished breath sounds, rales, rhonchi Percussion: Bilateral: not dull Cardiovascular: other (sinus tach) Gastrointestinal: normoactive bowel sounds Neurologic: unable to assess CBC and BMP: 05/14/19 05:21 05/14/19 05:21 ABG, PT/INR, D-dimer: ABG ABG pH 7.388 pH Units (7.350-7.450) 05/12/19 04:36 ABG pCO2 38.5 mm Hg 05/12/19 04:36 ABG pO2 79.4 mm Hg (80.0-90.0) L 05/12/19 04:36 ABG O2 Saturation 96.0 % (95.0-99.0) 05/12/19 04:36 PT/INR, D-dimer PT 14.7 Sec. (12.2-14.9) 05/13/19 12:01 INR 1.13 (0.87-1.13) 05/13/19 12:01 Abnormal lab findings: Abnormal Labs 04/30/19 04/30/19 04/30/19 10:12 11:32 11:32 WBC RBC Hgb RDW 17.1 H Plt Count 84 L Lymph % (Auto) 10.9 L [place] % (Auto) 7.4 H Lymph # 0.8 L Seg Neutrophils % 80.6 H Seg Neuts % (Manual) Lymphocytes % (Manual) Nucleated RBC % Seg Neutrophils # Man Lymphocytes # (Manual) Monocytes # (Manual) PT 28.3 H INR 2.59 H APTT ABG pH 7.347 L ABG pO2 221.9 H ABG HCO3 ABG O2 Saturation 99.3 H ABG Base Excess -2.2 L ABG Hemoglobin Oxyhemoglobin Sodium Potassium Chloride Carbon Dioxide BUN Creatinine Glucose POC Glucose Phosphorus Magnesium Troponin T NT-Pro-B Natriuret Pep Triglycerides Cholesterol LDL Cholesterol Direct HDL Cholesterol TSH Free T4 04/30/19 04/30/19 04/30/19 14:20 15:23 18:05 WBC RBC Hgb RDW Plt Count Lymph % (Auto) [place] % (Auto) Lymph # Seg Neutrophils % Seg Neuts % (Manual) Lymphocytes % (Manual) Nucleated RBC % Seg Neutrophils # Man Lymphocytes # (Manual) Monocytes # (Manual) PT INR APTT 37.2 H ABG pH ABG pO2 79.2 L ABG HCO3 ABG O2 Saturation ABG Base Excess ABG Hemoglobin Oxyhemoglobin 94.4 L Sodium 146 H Potassium 3.2 L Chloride Carbon Dioxide BUN 39 H Creatinine 2.6 H Glucose POC Glucose Phosphorus Magnesium Troponin T 0.117 H* NT-Pro-B Natriuret Pep 03063 H Triglycerides 178 H Cholesterol 303 H LDL Cholesterol Direct 190 H HDL Cholesterol 105 H TSH Free T4 04/30/19 05/01/19 05/01/19 22:20 00:48 04:46 WBC RBC Hgb RDW Plt Count Lymph % (Auto) [place] % (Auto) Lymph # Seg Neutrophils % Seg Neuts % (Manual) Lymphocytes % (Manual) Nucleated RBC % Seg Neutrophils # Man Lymphocytes # (Manual) Monocytes # (Manual) PT INR APTT ABG pH ABG pO2 98.3 H ABG HCO3 ABG O2 Saturation ABG Base Excess ABG Hemoglobin Oxyhemoglobin Sodium Potassium Chloride Carbon Dioxide BUN Creatinine Glucose POC Glucose 108 H 142 H Phosphorus Magnesium Troponin T NT-Pro-B Natriuret Pep Triglycerides Cholesterol LDL Cholesterol Direct HDL Cholesterol TSH Free T4 05/01/19 05/01/19 05/01/19 12:43 12:43 13:27 WBC RBC Hgb RDW 16.4 H Plt Count 132 L Lymph % (Auto) [place] % (Auto) Lymph # Seg Neutrophils % Seg Neuts % (Manual) 95.0 H Lymphocytes % (Manual) 3.0 L Nucleated RBC % Seg Neutrophils # Man Lymphocytes # (Manual) 0.2 L Monocytes # (Manual) PT INR APTT ABG pH ABG pO2 ABG HCO3 ABG O2 Saturation ABG Base Excess ABG Hemoglobin Oxyhemoglobin Sodium Potassium Chloride 95.1 L Carbon Dioxide 21 L BUN 29 H Creatinine 3.2 H Glucose 137 H POC Glucose 114 H Phosphorus Magnesium Troponin T NT-Pro-B Natriuret Pep Triglycerides Cholesterol LDL Cholesterol Direct HDL Cholesterol TSH Free T4 05/01/19 05/02/19 05/02/19 18:41 00:01 05:40 WBC RBC Hgb RDW Plt Count Lymph % (Auto) [place] % (Auto) Lymph # Seg Neutrophils % Seg Neuts % (Manual) Lymphocytes % (Manual) Nucleated RBC % Seg Neutrophils # Man Lymphocytes # (Manual) Monocytes # (Manual) PT INR APTT ABG pH ABG pO2 ABG HCO3 ABG O2 Saturation ABG Base Excess ABG Hemoglobin Oxyhemoglobin Sodium Potassium Chloride Carbon Dioxide BUN Creatinine Glucose POC Glucose 127 H 110 H 135 H Phosphorus Magnesium Troponin T NT-Pro-B Natriuret Pep Triglycerides Cholesterol LDL Cholesterol Direct HDL Cholesterol TSH Free T4 05/02/19 05/02/19 05/03/19 13:06 19:14 09:44 WBC RBC Hgb RDW 17.1 H Plt Count Lymph % (Auto) [place] % (Auto) Lymph # Seg Neutrophils % Seg Neuts % (Manual) Lymphocytes % (Manual) Nucleated RBC % Seg Neutrophils # Man Lymphocytes # (Manual) Monocytes # (Manual) PT INR APTT ABG pH ABG pO2 ABG HCO3 ABG O2 Saturation ABG Base Excess ABG Hemoglobin Oxyhemoglobin Sodium Potassium Chloride Carbon Dioxide BUN Creatinine Glucose POC Glucose 152 H 117 H Phosphorus Magnesium Troponin T NT-Pro-B Natriuret Pep Triglycerides Cholesterol LDL Cholesterol Direct HDL Cholesterol TSH Free T4 05/03/19 05/03/19 05/03/19 09:44 10:13 18:45 WBC RBC Hgb RDW Plt Count Lymph % (Auto) [place] % (Auto) Lymph # Seg Neutrophils % Seg Neuts % (Manual) Lymphocytes % (Manual) Nucleated RBC % Seg Neutrophils # Man Lymphocytes # (Manual) Monocytes # (Manual) PT INR APTT ABG pH 7.166 L* ABG pO2 ABG HCO3 ABG O2 Saturation 94.5 L ABG Base Excess -8.8 L ABG Hemoglobin 11.6 L Oxyhemoglobin 92.4 L Sodium Potassium 6.2 H* D Chloride 93.2 L Carbon Dioxide 13 L D BUN 93 H Creatinine 7.2 H D Glucose 138 H POC Glucose 128 H Phosphorus 12.90 H Magnesium 2.70 H Troponin T NT-Pro-B Natriuret Pep Triglycerides Cholesterol LDL Cholesterol Direct HDL Cholesterol TSH Free T4 05/03/19 05/04/19 05/04/19 19:40 01:04 03:51 WBC 11.2 H RBC Hgb RDW 16.6 H Plt Count Lymph % (Auto) [place] % (Auto) Lymph # Seg Neutrophils % Seg Neuts % (Manual) Lymphocytes % (Manual) Nucleated RBC % Seg Neutrophils # Man Lymphocytes # (Manual) Monocytes # (Manual) PT INR APTT ABG pH ABG pO2 ABG HCO3 ABG O2 Saturation ABG Base Excess ABG Hemoglobin Oxyhemoglobin Sodium Potassium Chloride 92.7 L Carbon Dioxide BUN 26 H Creatinine 3.2 H D Glucose 129 H POC Glucose 134 H Phosphorus Magnesium Troponin T NT-Pro-B Natriuret Pep Triglycerides Cholesterol LDL Cholesterol Direct HDL Cholesterol TSH Free T4 05/04/19 05/04/19 05/04/19 03:51 06:05 12:33 WBC RBC Hgb RDW Plt Count Lymph % (Auto) [place] % (Auto) Lymph # Seg Neutrophils % Seg Neuts % (Manual) Lymphocytes % (Manual) Nucleated RBC % Seg Neutrophils # Man Lymphocytes # (Manual) Monocytes # (Manual) PT INR APTT ABG pH ABG pO2 ABG HCO3 ABG O2 Saturation ABG Base Excess ABG Hemoglobin Oxyhemoglobin Sodium Potassium Chloride 92.5 L Carbon Dioxide 19 L BUN 39 H Creatinine 4.3 H Glucose 148 H POC Glucose 138 H 190 H Phosphorus Magnesium Troponin T NT-Pro-B Natriuret Pep Triglycerides Cholesterol LDL Cholesterol Direct HDL Cholesterol TSH Free T4 05/04/19 05/04/19 05/04/19 18:25 23:57 Unknown WBC RBC Hgb RDW Plt Count Lymph % (Auto) [place] % (Auto) Lymph # Seg Neutrophils % Seg Neuts % (Manual) Lymphocytes % (Manual) Nucleated RBC % Seg Neutrophils # Man Lymphocytes # (Manual) Monocytes # (Manual) PT INR APTT ABG pH ABG pO2 ABG HCO3 ABG O2 Saturation ABG Base Excess -3.4 L ABG Hemoglobin Oxyhemoglobin 94.5 L Sodium Potassium Chloride Carbon Dioxide BUN Creatinine Glucose POC Glucose 190 H 119 H Phosphorus Magnesium Troponin T NT-Pro-B Natriuret Pep Triglycerides Cholesterol LDL Cholesterol Direct HDL Cholesterol TSH Free T4 05/05/19 05/05/19 05/05/19 03:45 06:09 12:07 WBC RBC Hgb RDW Plt Count Lymph % (Auto) [place] % (Auto) Lymph # Seg Neutrophils % Seg Neuts % (Manual) Lymphocytes % (Manual) Nucleated RBC % Seg Neutrophils # Man Lymphocytes # (Manual) Monocytes # (Manual) PT INR APTT ABG pH 7.456 H ABG pO2 64.8 L ABG HCO3 ABG O2 Saturation 93.6 L ABG Base Excess ABG Hemoglobin Oxyhemoglobin 91.4 L Sodium Potassium Chloride Carbon Dioxide BUN Creatinine Glucose POC Glucose 173 H 260 H Phosphorus Magnesium Troponin T NT-Pro-B Natriuret Pep Triglycerides Cholesterol LDL Cholesterol Direct HDL Cholesterol TSH Free T4 05/05/19 05/06/19 05/06/19 18:34 00:49 04:20 WBC 12.8 H RBC Hgb RDW 16.9 H Plt Count Lymph % (Auto) [place] % (Auto) Lymph # Seg Neutrophils % Seg Neuts % (Manual) 93.0 H Lymphocytes % (Manual) 2.0 L Nucleated RBC % 1.0 H Seg Neutrophils # Man 11.9 H Lymphocytes # (Manual) 0.3 L Monocytes # (Manual) PT INR APTT ABG pH ABG pO2 ABG HCO3 ABG O2 Saturation ABG Base Excess ABG Hemoglobin Oxyhemoglobin Sodium Potassium Chloride Carbon Dioxide BUN Creatinine Glucose POC Glucose 334 H 230 H Phosphorus Magnesium Troponin T NT-Pro-B Natriuret Pep Triglycerides Cholesterol LDL Cholesterol Direct HDL Cholesterol TSH Free T4 05/06/19 05/06/19 05/06/19 04:20 04:20 05:39 WBC RBC Hgb RDW Plt Count Lymph % (Auto) [place] % (Auto) Lymph # Seg Neutrophils % Seg Neuts % (Manual) Lymphocytes % (Manual) Nucleated RBC % Seg Neutrophils # Man Lymphocytes # (Manual) Monocytes # (Manual) PT INR APTT ABG pH ABG pO2 62.9 L ABG HCO3 ABG O2 Saturation 92.5 L ABG Base Excess ABG Hemoglobin Oxyhemoglobin 90.5 L Sodium Potassium Chloride 95.1 L Carbon Dioxide BUN 40 H Creatinine 3.6 H Glucose 267 H POC Glucose Phosphorus Magnesium Troponin T NT-Pro-B Natriuret Pep Triglycerides 380 H Cholesterol LDL Cholesterol Direct HDL Cholesterol TSH Free T4 05/06/19 05/06/19 05/06/19 06:08 11:15 12:42 WBC RBC Hgb RDW Plt Count Lymph % (Auto) [place] % (Auto) Lymph # Seg Neutrophils % Seg Neuts % (Manual) Lymphocytes % (Manual) Nucleated RBC % Seg Neutrophils # Man Lymphocytes # (Manual) Monocytes # (Manual) PT INR APTT ABG pH 7.344 L ABG pO2 56.8 L ABG HCO3 ABG O2 Saturation 85.5 L ABG Base Excess ABG Hemoglobin Oxyhemoglobin 83.8 L Sodium Potassium Chloride Carbon Dioxide BUN Creatinine Glucose POC Glucose 325 H 168 H Phosphorus Magnesium Troponin T NT-Pro-B Natriuret Pep Triglycerides Cholesterol LDL Cholesterol Direct HDL Cholesterol TSH Free T4 05/06/19 05/07/19 05/07/19 17:30 00:33 05:25 WBC RBC Hgb RDW Plt Count Lymph % (Auto) [place] % (Auto) Lymph # Seg Neutrophils % Seg Neuts % (Manual) Lymphocytes % (Manual) Nucleated RBC % Seg Neutrophils # Man Lymphocytes # (Manual) Monocytes # (Manual) PT INR APTT ABG pH ABG pO2 51.8 L ABG HCO3 ABG O2 Saturation 83.6 L ABG Base Excess -3.3 L ABG Hemoglobin Oxyhemoglobin 81.7 L Sodium Potassium Chloride Carbon Dioxide BUN Creatinine Glucose POC Glucose 172 H 131 H Phosphorus Magnesium Troponin T NT-Pro-B Natriuret Pep Triglycerides Cholesterol LDL Cholesterol Direct HDL Cholesterol TSH Free T4 05/07/19 05/07/19 05/07/19 06:31 13:21 15:15 WBC RBC Hgb RDW Plt Count Lymph % (Auto) [place] % (Auto) Lymph # Seg Neutrophils % Seg Neuts % (Manual) Lymphocytes % (Manual) Nucleated RBC % Seg Neutrophils # Man Lymphocytes # (Manual) Monocytes # (Manual) PT INR APTT ABG pH 7.317 L ABG pO2 64.0 L ABG HCO3 ABG O2 Saturation 89.7 L ABG Base Excess ABG Hemoglobin Oxyhemoglobin 87.8 L Sodium Potassium Chloride Carbon Dioxide BUN Creatinine Glucose POC Glucose 223 H 200 H Phosphorus Magnesium Troponin T NT-Pro-B Natriuret Pep Triglycerides Cholesterol LDL Cholesterol Direct HDL Cholesterol TSH Free T4 05/07/19 05/07/19 05/07/19 18:40 19:35 21:39 WBC RBC Hgb RDW Plt Count Lymph % (Auto) [place] % (Auto) Lymph # Seg Neutrophils % Seg Neuts % (Manual) Lymphocytes % (Manual) Nucleated RBC % Seg Neutrophils # Man Lymphocytes # (Manual) Monocytes # (Manual) PT INR APTT ABG pH ABG pO2 ABG HCO3 ABG O2 Saturation ABG Base Excess ABG Hemoglobin Oxyhemoglobin Sodium Potassium Chloride Carbon Dioxide BUN Creatinine Glucose POC Glucose 142 H 138 H Phosphorus Magnesium 1.60 L Troponin T NT-Pro-B Natriuret Pep Triglycerides Cholesterol LDL Cholesterol Direct HDL Cholesterol TSH Free T4 05/07/19 05/08/19 05/08/19 23:49 09:32 12:31 WBC RBC Hgb RDW Plt Count Lymph % (Auto) [place] % (Auto) Lymph # Seg Neutrophils % Seg Neuts % (Manual) Lymphocytes % (Manual) Nucleated RBC % Seg Neutrophils # Man Lymphocytes # (Manual) Monocytes # (Manual) PT INR APTT ABG pH ABG pO2 65.1 L ABG HCO3 18.7 L ABG O2 Saturation 91.9 L ABG Base Excess -5.8 L ABG Hemoglobin Oxyhemoglobin 90.1 L Sodium Potassium Chloride Carbon Dioxide BUN Creatinine Glucose POC Glucose 195 H 298 H Phosphorus Magnesium Troponin T NT-Pro-B Natriuret Pep Triglycerides Cholesterol LDL Cholesterol Direct HDL Cholesterol TSH Free T4 05/08/19 05/08/19 05/08/19 13:54 14:44 14:44 WBC 15.3 H RBC Hgb RDW 16.9 H Plt Count Lymph % (Auto) [place] % (Auto) Lymph # Seg Neutrophils % Seg Neuts % (Manual) Lymphocytes % (Manual) Nucleated RBC % Seg Neutrophils # Man Lymphocytes # (Manual) Monocytes # (Manual) PT INR APTT ABG pH 7.327 L ABG pO2 67.2 L ABG HCO3 18.4 L ABG O2 Saturation 91.6 L ABG Base Excess -6.8 L ABG Hemoglobin Oxyhemoglobin 89.6 L Sodium Potassium Chloride 91.3 L Carbon Dioxide 17 L BUN 64 H Creatinine 5.0 H Glucose 337 H POC Glucose Phosphorus Magnesium Troponin T NT-Pro-B Natriuret Pep Triglycerides Cholesterol LDL Cholesterol Direct HDL Cholesterol TSH Free T4 05/08/19 05/08/19 05/09/19 17:14 23:49 05:22 WBC RBC Hgb RDW Plt Count Lymph % (Auto) [place] % (Auto) Lymph # Seg Neutrophils % Seg Neuts % (Manual) Lymphocytes % (Manual) Nucleated RBC % Seg Neutrophils # Man Lymphocytes # (Manual) Monocytes # (Manual) PT INR APTT ABG pH ABG pO2 ABG HCO3 ABG O2 Saturation ABG Base Excess ABG Hemoglobin Oxyhemoglobin Sodium Potassium Chloride Carbon Dioxide BUN Creatinine Glucose POC Glucose 396 H 322 H 239 H Phosphorus Magnesium Troponin T NT-Pro-B Natriuret Pep Triglycerides Cholesterol LDL Cholesterol Direct HDL Cholesterol TSH Free T4 05/09/19 05/09/19 05/09/19 07:14 07:14 11:39 WBC 13.6 H RBC Hgb RDW 17.1 H Plt Count Lymph % (Auto) [place] % (Auto) Lymph # Seg Neutrophils % Seg Neuts % (Manual) 91.0 H Lymphocytes % (Manual) 2.0 L Nucleated RBC % 4.0 H Seg Neutrophils # Man 12.4 H Lymphocytes # (Manual) 0.3 L Monocytes # (Manual) PT INR APTT ABG pH ABG pO2 ABG HCO3 ABG O2 Saturation ABG Base Excess ABG Hemoglobin Oxyhemoglobin Sodium 135 L Potassium 5.3 H Chloride 93.5 L Carbon Dioxide 14 L BUN 85 H Creatinine 6.1 H Glucose 242 H POC Glucose 273 H Phosphorus Magnesium Troponin T NT-Pro-B Natriuret Pep Triglycerides Cholesterol LDL Cholesterol Direct HDL Cholesterol TSH Free T4 05/09/19 05/09/19 05/10/19 17:29 21:45 00:11 WBC RBC Hgb RDW Plt Count Lymph % (Auto) [place] % (Auto) Lymph # Seg Neutrophils % Seg Neuts % (Manual) Lymphocytes % (Manual) Nucleated RBC % Seg Neutrophils # Man Lymphocytes # (Manual) Monocytes # (Manual) PT INR APTT ABG pH ABG pO2 ABG HCO3 ABG O2 Saturation ABG Base Excess ABG Hemoglobin Oxyhemoglobin Sodium Potassium Chloride Carbon Dioxide BUN Creatinine Glucose POC Glucose 190 H 190 H 247 H Phosphorus Magnesium Troponin T NT-Pro-B Natriuret Pep Triglycerides Cholesterol LDL Cholesterol Direct HDL Cholesterol TSH Free T4 05/10/19 05/10/19 05/10/19 05:14 05:14 05:42 WBC 21.0 H RBC Hgb RDW 16.8 H Plt Count Lymph % (Auto) [place] % (Auto) Lymph # Seg Neutrophils % Seg Neuts % (Manual) 91.0 H Lymphocytes % (Manual) 2.0 L Nucleated RBC % 7.0 H Seg Neutrophils # Man 19.1 H Lymphocytes # (Manual) 0.4 L Monocytes # (Manual) 1.1 H PT INR APTT ABG pH ABG pO2 ABG HCO3 ABG O2 Saturation ABG Base Excess ABG Hemoglobin Oxyhemoglobin Sodium Potassium Chloride 92.2 L Carbon Dioxide 19 L BUN 111 H Creatinine 7.7 H Glucose 193 H POC Glucose 208 H Phosphorus Magnesium Troponin T NT-Pro-B Natriuret Pep Triglycerides Cholesterol LDL Cholesterol Direct HDL Cholesterol TSH Free T4 05/10/19 05/10/19 05/11/19 12:28 17:45 00:26 WBC RBC Hgb RDW Plt Count Lymph % (Auto) [place] % (Auto) Lymph # Seg Neutrophils % Seg Neuts % (Manual) Lymphocytes % (Manual) Nucleated RBC % Seg Neutrophils # Man Lymphocytes # (Manual) Monocytes # (Manual) PT INR APTT ABG pH ABG pO2 ABG HCO3 ABG O2 Saturation ABG Base Excess ABG Hemoglobin Oxyhemoglobin Sodium Potassium Chloride Carbon Dioxide BUN Creatinine Glucose POC Glucose 275 H 214 H 244 H Phosphorus Magnesium Troponin T NT-Pro-B Natriuret Pep Triglycerides Cholesterol LDL Cholesterol Direct HDL Cholesterol TSH Free T4 05/11/19 05/11/19 05/11/19 04:08 04:23 04:23 WBC 20.5 H RBC Hgb RDW 17.0 H Plt Count 134 L Lymph % (Auto) [place] % (Auto) Lymph # Seg Neutrophils % Seg Neuts % (Manual) 92.0 H Lymphocytes % (Manual) 1.0 L Nucleated RBC % 3.0 H Seg Neutrophils # Man 18.9 H Lymphocytes # (Manual) 0.2 L Monocytes # (Manual) 1.0 H PT INR APTT ABG pH ABG pO2 57.9 L ABG HCO3 ABG O2 Saturation 89.9 L ABG Base Excess ABG Hemoglobin 10.3 L Oxyhemoglobin 87.9 L Sodium Potassium Chloride 90.9 L Carbon Dioxide BUN 50 H Creatinine 4.2 H Glucose 175 H POC Glucose Phosphorus Magnesium Troponin T NT-Pro-B Natriuret Pep Triglycerides Cholesterol LDL Cholesterol Direct HDL Cholesterol TSH Free T4 05/11/19 05/11/19 05/11/19 05:36 12:00 13:00 WBC RBC Hgb RDW Plt Count Lymph % (Auto) [place] % (Auto) Lymph # Seg Neutrophils % Seg Neuts % (Manual) Lymphocytes % (Manual) Nucleated RBC % Seg Neutrophils # Man Lymphocytes # (Manual) Monocytes # (Manual) PT INR APTT ABG pH ABG pO2 ABG HCO3 ABG O2 Saturation ABG Base Excess ABG Hemoglobin Oxyhemoglobin Sodium Potassium Chloride Carbon Dioxide BUN Creatinine Glucose POC Glucose 147 H 318 H Phosphorus Magnesium 1.50 L Troponin T NT-Pro-B Natriuret Pep Triglycerides Cholesterol LDL Cholesterol Direct HDL Cholesterol TSH Free T4 05/11/19 05/11/19 05/11/19 13:00 13:00 18:00 WBC RBC Hgb RDW Plt Count Lymph % (Auto) [place] % (Auto) Lymph # Seg Neutrophils % Seg Neuts % (Manual) Lymphocytes % (Manual) Nucleated RBC % Seg Neutrophils # Man Lymphocytes # (Manual) Monocytes # (Manual) PT INR APTT ABG pH ABG pO2 ABG HCO3 ABG O2 Saturation ABG Base Excess ABG Hemoglobin Oxyhemoglobin Sodium Potassium Chloride Carbon Dioxide BUN Creatinine Glucose POC Glucose 237 H Phosphorus Magnesium Troponin T NT-Pro-B Natriuret Pep Triglycerides Cholesterol LDL Cholesterol Direct HDL Cholesterol TSH 0.220 L Free T4 0.70 L 05/11/19 05/12/19 05/12/19 23:49 03:50 04:35 WBC 17.5 H RBC Hgb RDW 17.0 H Plt Count 119 L Lymph % (Auto) [place] % (Auto) Lymph # Seg Neutrophils % Seg Neuts % (Manual) 98.0 H Lymphocytes % (Manual) 1.0 L Nucleated RBC % Seg Neutrophils # Man 17.2 H Lymphocytes # (Manual) 0.2 L Monocytes # (Manual) PT INR APTT ABG pH ABG pO2 ABG HCO3 ABG O2 Saturation ABG Base Excess ABG Hemoglobin Oxyhemoglobin Sodium Potassium Chloride Carbon Dioxide BUN Creatinine Glucose POC Glucose 117 H 225 H Phosphorus Magnesium Troponin T NT-Pro-B Natriuret Pep Triglycerides Cholesterol LDL Cholesterol Direct HDL Cholesterol TSH Free T4 05/12/19 05/12/19 05/12/19 04:35 04:36 05:51 WBC RBC Hgb RDW Plt Count Lymph % (Auto) [place] % (Auto) Lymph # Seg Neutrophils % Seg Neuts % (Manual) Lymphocytes % (Manual) Nucleated RBC % Seg Neutrophils # Man Lymphocytes # (Manual) Monocytes # (Manual) PT INR APTT ABG pH ABG pO2 79.4 L ABG HCO3 ABG O2 Saturation ABG Base Excess ABG Hemoglobin 10.9 L Oxyhemoglobin 94.0 L Sodium 130 L D Potassium 5.9 H D Chloride 85.0 L Carbon Dioxide 19 L BUN 81 H Creatinine 5.7 H Glucose 228 H POC Glucose 274 H Phosphorus Magnesium Troponin T NT-Pro-B Natriuret Pep Triglycerides Cholesterol LDL Cholesterol Direct HDL Cholesterol TSH Free T4 05/12/19 05/12/19 05/12/19 11:30 18:11 23:53 WBC RBC Hgb RDW Plt Count Lymph % (Auto) [place] % (Auto) Lymph # Seg Neutrophils % Seg Neuts % (Manual) Lymphocytes % (Manual) Nucleated RBC % Seg Neutrophils # Man Lymphocytes # (Manual) Monocytes # (Manual) PT INR APTT ABG pH ABG pO2 ABG HCO3 ABG O2 Saturation ABG Base Excess ABG Hemoglobin Oxyhemoglobin Sodium Potassium Chloride Carbon Dioxide BUN Creatinine Glucose POC Glucose 146 H 307 H 266 H Phosphorus Magnesium Troponin T NT-Pro-B Natriuret Pep Triglycerides Cholesterol LDL Cholesterol Direct HDL Cholesterol TSH Free T4 05/13/19 05/13/19 05/13/19 04:30 04:30 05:24 WBC 17.4 H RBC 3.48 L Hgb 10.0 L RDW 17.0 H Plt Count 122 L Lymph % (Auto) [place] % (Auto) Lymph # Seg Neutrophils % Seg Neuts % (Manual) 97.0 H Lymphocytes % (Manual) 1.0 L Nucleated RBC % Seg Neutrophils # Man 16.9 H Lymphocytes # (Manual) 0.2 L Monocytes # (Manual) PT INR APTT ABG pH ABG pO2 ABG HCO3 ABG O2 Saturation ABG Base Excess ABG Hemoglobin Oxyhemoglobin Sodium 136 L Potassium Chloride 92.4 L Carbon Dioxide BUN 61 H Creatinine 4.6 H Glucose 198 H POC Glucose 182 H Phosphorus Magnesium Troponin T NT-Pro-B Natriuret Pep Triglycerides Cholesterol LDL Cholesterol Direct HDL Cholesterol TSH Free T4 05/13/19 05/13/19 05/13/19 12:01 12:27 18:35 WBC RBC Hgb RDW Plt Count Lymph % (Auto) [place] % (Auto) Lymph # Seg Neutrophils % Seg Neuts % (Manual) Lymphocytes % (Manual) Nucleated RBC % Seg Neutrophils # Man Lymphocytes # (Manual) Monocytes # (Manual) PT INR APTT 23.5 L ABG pH ABG pO2 ABG HCO3 ABG O2 Saturation ABG Base Excess ABG Hemoglobin Oxyhemoglobin Sodium Potassium Chloride Carbon Dioxide BUN Creatinine Glucose POC Glucose 243 H 294 H Phosphorus Magnesium Troponin T NT-Pro-B Natriuret Pep Triglycerides Cholesterol LDL Cholesterol Direct HDL Cholesterol TSH Free T4 05/13/19 05/13/19 05/14/19 22:15 23:29 05:21 WBC 16.3 H RBC 3.55 L Hgb RDW 16.8 H Plt Count 118 L Lymph % (Auto) [place] % (Auto) Lymph # Seg Neutrophils % Seg Neuts % (Manual) 93.0 H Lymphocytes % (Manual) 0 L Nucleated RBC % Seg Neutrophils # Man 15.2 H Lymphocytes # (Manual) 0.0 L Monocytes # (Manual) PT INR APTT ABG pH ABG pO2 ABG HCO3 ABG O2 Saturation ABG Base Excess ABG Hemoglobin Oxyhemoglobin Sodium Potassium Chloride Carbon Dioxide BUN Creatinine Glucose POC Glucose 228 H 201 H Phosphorus Magnesium Troponin T NT-Pro-B Natriuret Pep Triglycerides Cholesterol LDL Cholesterol Direct HDL Cholesterol TSH Free T4 05/14/19 05/14/19 05:21 05:42 WBC RBC Hgb RDW Plt Count Lymph % (Auto) [place] % (Auto) Lymph # Seg Neutrophils % Seg Neuts % (Manual) Lymphocytes % (Manual) Nucleated RBC % Seg Neutrophils # Man Lymphocytes # (Manual) Monocytes # (Manual) PT INR APTT ABG pH ABG pO2 ABG HCO3 ABG O2 Saturation ABG Base Excess ABG Hemoglobin Oxyhemoglobin Sodium Potassium Chloride 92.2 L Carbon Dioxide 18 L BUN 79 H Creatinine 5.7 H Glucose 243 H POC Glucose 236 H Phosphorus Magnesium Troponin T NT-Pro-B Natriuret Pep Triglycerides Cholesterol LDL Cholesterol Direct HDL Cholesterol TSH Free T4
--- NOTE | 2019-05-14 11:58 | Progress Note ---
Assessment and Plan 78-year-old female status post tracheostomy, fiberoptic bronchoscopy, EGD, postop day 1 and G-tube placement by interventional radiology. 1. Vent management per ICU via trach 2. Trach care as per protocol 3. Tube feed -advance to goal as tolerated 4. Tracheostomy sutures may be repaired removed on May 18 Will sign off. Please call with questions or concerns. Subjective Date of service: 05/14/19 Narrative: Patient seen and examined. No overnight events noted. A percutaneous gastric tube was placed by interventional radiology yesterday. The patient is may ating tube feeds. Objective Vital Signs - 12hr 05/14/19 05/14/19 05/14/19 00:00 00:16 00:30 Temperature Pulse Rate 86 97 H 97 H Pulse Rate [ Anterior Bilateral] Pulse Rate [ 81 From Monitor] Respiratory 24 25 H 25 H Rate Respiratory Rate [Anterior Bilateral] Blood Pressure 193/70 164/83 164/92 O2 Sat by Pulse 100 100 100 Oximetry 05/14/19 05/14/19 05/14/19 00:34 00:46 00:52 Temperature Pulse Rate 99 H 96 H 103 H Pulse Rate [ Anterior Bilateral] Pulse Rate [ From Monitor] Respiratory 26 H Rate Respiratory Rate [Anterior Bilateral] Blood Pressure 164/92 164/92 164/92 O2 Sat by Pulse 99 100 Oximetry 05/14/19 05/14/19 05/14/19 01:00 01:16 01:30 Temperature Pulse Rate 107 H 92 H 97 H Pulse Rate [ Anterior Bilateral] Pulse Rate [ From Monitor] Respiratory 30 H 24 27 H Rate Respiratory Rate [Anterior Bilateral] Blood Pressure 168/112 168/112 168/112 O2 Sat by Pulse 100 100 99 Oximetry 05/14/19 05/14/19 05/14/19 01:46 02:00 02:16 Temperature Pulse Rate 106 H 88 86 Pulse Rate [ Anterior Bilateral] Pulse Rate [ From Monitor] Respiratory 30 H 24 24 Rate Respiratory Rate [Anterior Bilateral] Blood Pressure 197/86 197/86 81/51 O2 Sat by Pulse 99 100 100 Oximetry 05/14/19 05/14/19 05/14/19 02:30 02:46 03:00 Temperature Pulse Rate 91 H 90 87 Pulse Rate [ Anterior Bilateral] Pulse Rate [ From Monitor] Respiratory 23 24 24 Rate Respiratory Rate [Anterior Bilateral] Blood Pressure 81/51 96/62 102/46 O2 Sat by Pulse 100 100 99 Oximetry 05/14/19 05/14/19 05/14/19 03:16 03:30 03:34 Temperature 97.3 F L Pulse Rate 90 86 Pulse Rate [ Anterior Bilateral] Pulse Rate [ From Monitor] Respiratory 24 26 H Rate Respiratory Rate [Anterior Bilateral] Blood Pressure 102/46 102/46 O2 Sat by Pulse 100 100 Oximetry 05/14/19 05/14/19 05/14/19 03:46 04:00 04:16 Temperature Pulse Rate 88 102 H 99 H Pulse Rate [ Anterior Bilateral] Pulse Rate [ 81 From Monitor] Respiratory 25 H 25 H 29 H Rate Respiratory Rate [Anterior Bilateral] Blood Pressure 212/103 215/93 149/74 O2 Sat by Pulse 100 100 100 Oximetry 05/14/19 05/14/19 05/14/19 04:30 04:46 05:00 Temperature Pulse Rate 87 94 H 91 H Pulse Rate [ Anterior Bilateral] Pulse Rate [ From Monitor] Respiratory 24 28 H 25 H Rate Respiratory Rate [Anterior Bilateral] Blood Pressure 149/74 218/101 201/90 O2 Sat by Pulse 100 100 100 Oximetry 05/14/19 05/14/19 05/14/19 05:16 05:21 05:30 Temperature Pulse Rate 98 H 96 H 100 H Pulse Rate [ Anterior Bilateral] Pulse Rate [ From Monitor] Respiratory 26 H 24 Rate Respiratory Rate [Anterior Bilateral] Blood Pressure 201/90 212/169 168/105 O2 Sat by Pulse 100 99 99 Oximetry 05/14/19 05/14/19 05/14/19 05:46 06:00 06:16 Temperature Pulse Rate 94 H 85 84 Pulse Rate [ Anterior Bilateral] Pulse Rate [ From Monitor] Respiratory 24 25 H 24 Rate Respiratory Rate [Anterior Bilateral] Blood Pressure 168/105 168/105 87/55 O2 Sat by Pulse 98 100 99 Oximetry 05/14/19 05/14/19 05/14/19 06:30 06:46 06:59 Temperature Pulse Rate 82 91 H 94 H Pulse Rate [ Anterior Bilateral] Pulse Rate [ From Monitor] Respiratory 24 16 Rate Respiratory Rate [Anterior Bilateral] Blood Pressure 92/52 92/52 92/52 O2 Sat by Pulse 99 98 Oximetry 05/14/19 05/14/19 05/14/19 07:00 07:16 07:20 Temperature Pulse Rate 85 89 89 Pulse Rate [ Anterior Bilateral] Pulse Rate [ From Monitor] Respiratory 24 22 Rate Respiratory Rate [Anterior Bilateral] Blood Pressure 193/77 193/77 187/114 O2 Sat by Pulse 100 99 100 Oximetry 05/14/19 05/14/19 05/14/19 07:24 07:30 07:46 Temperature Pulse Rate 99 H 86 Pulse Rate [ 96 H Anterior Bilateral] Pulse Rate [ From Monitor] Respiratory 27 H 20 Rate Respiratory 24 Rate [Anterior Bilateral] Blood Pressure 200/113 209/117 O2 Sat by Pulse 100 100 Oximetry 05/14/19 05/14/19 05/14/19 08:00 08:16 08:30 Temperature 95.6 F L Pulse Rate 93 H 92 H 94 H Pulse Rate [ Anterior Bilateral] Pulse Rate [ 93 H From Monitor] Respiratory 26 H 23 24 Rate Respiratory Rate [Anterior Bilateral] Blood Pressure 209/117 199/94 199/94 O2 Sat by Pulse 100 100 100 Oximetry 05/14/19 05/14/19 05/14/19 08:46 09:00 09:16 Temperature Pulse Rate 94 H 101 H 98 H Pulse Rate [ Anterior Bilateral] Pulse Rate [ From Monitor] Respiratory 28 H 31 H 25 H Rate Respiratory Rate [Anterior Bilateral] Blood Pressure 186/106 171/102 171/102 O2 Sat by Pulse 100 100 100 Oximetry 05/14/19 05/14/19 05/14/19 09:30 09:46 10:00 Temperature Pulse Rate 91 H 101 H 101 H Pulse Rate [ Anterior Bilateral] Pulse Rate [ From Monitor] Respiratory 25 H 32 H 31 H Rate Respiratory Rate [Anterior Bilateral] Blood Pressure 171/102 154/77 154/77 O2 Sat by Pulse 100 100 100 Oximetry 05/14/19 05/14/19 10:38 11:36 Temperature Pulse Rate 96 H 101 H Pulse Rate [ Anterior Bilateral] Pulse Rate [ From Monitor] Respiratory Rate Respiratory Rate [Anterior Bilateral] Blood Pressure 221/89 164/74 O2 Sat by Pulse 99 Oximetry - General physical appearance Narrative Exam: Gen.: Awake on the vent. Opens her eyes to name. Does not follow commands. ENT: Tracheostomy in place. Site is clean, dry, intact. There is no swelling or bleeding. CV: S1, S2 present Respiratory: No audible wheezes Abdomen: Soft, nondistended, nontender. Left upper quadrant G-tube present with tube feeds running. The site is clean, dry, intact. The outer bumper is at approximately 5 cm. No rebound, rigidity, guarding Extremities: No clubbing, cyanosis, edema - Labs 05/14/19 05:21 05/14/19 05:21 Diabetes panel 05/14/19 Range/Units 05:21 Sodium 137 (137-145) mmol/L Potassium 3.9 (3.6-5.0) mmol/L Chloride 92.2 L (98-107) mmol/L Carbon Dioxide 18 L (22-30) mmol/L BUN 79 H (7-17) mg/dL Creatinine 5.7 H (0.7-1.2) mg/dL Glucose 243 H (65-100) mg/dL Calcium 9.0 (8.4-10.2) mg/dL Calcium panel 05/14/19 Range/Units 05:21 Calcium 9.0 (8.4-10.2) mg/dL Pituitary panel 05/14/19 Range/Units 05:21 Sodium 137 (137-145) mmol/L Potassium 3.9 (3.6-5.0) mmol/L Chloride 92.2 L (98-107) mmol/L Carbon Dioxide 18 L (22-30) mmol/L BUN 79 H (7-17) mg/dL Creatinine 5.7 H (0.7-1.2) mg/dL Glucose 243 H (65-100) mg/dL Calcium 9.0 (8.4-10.2) mg/dL Adrenal panel 05/14/19 Range/Units 05:21 Sodium 137 (137-145) mmol/L Potassium 3.9 (3.6-5.0) mmol/L Chloride 92.2 L (98-107) mmol/L Carbon Dioxide 18 L (22-30) mmol/L BUN 79 H (7-17) mg/dL Creatinine 5.7 H (0.7-1.2) mg/dL Glucose 243 H (65-100) mg/dL Calcium 9.0 (8.4-10.2) mg/dL
[2019-05-14] MEDS ORDERED: ALBUMIN HUMAN 25% (25 GM/100 ML) INJ IV ONE ×2 (13:37→14:00)
--- NOTE | 2019-05-14 13:49 | Progress Note ---
Assessment and Plan Assessment and plan: Patient is a 78 yo AA woman with a history of DC, Diastolic CHF, CAD S/P CABG, DM, Asthma, OA, Anxiety disorder, Chronic Respiratory Failure on 2-3 L Home oxygen due to end stage COPD and ESRD on HD(M,W,F) who presented to [facility] ED on 04/30/2019 with SOB and wheezing for 2 days. Acute on chronic hypoxic respiratory failure >96 hours: trying to wean, CCM Atrial Fibrillation with RVR: metoprolol IV with holding parameters, Cardiology consulted Acute COPD exacerbation: Continue neb treatments, antibiotics, steroids and oxygen supplement Anxiety disorder: Continue Klonopin Hyperglycemia: Continue to monitor likely induced by steroid use. End-stage renal disease: On hemodialysis Friday and Friday, Nephrology note reviewed Acute metabolic acidosis: monitor BMP Chronic diastolic heart failure, Hypertension, Anemia of chronic kidney disease: monitor CBC DVT ppx: sq heparin 05/06: Discussed with second hand plan is for extubation today. Continue management. 05/07: Discussed with family and second hand, will proceed with re-intubation and possible plan for Trach and PEG. Daughter informs me that the patient is very anxious and believes that this hampers extubation. Stated that she had discussed with second hand to reintubate the patient if she failed extubation. She does understand the process of weaning from ventilation. 05/08: Hyperkalemia, Nephrology managing 05/09: Afib, will optimize, and plan for trach and PEG. Cardiology consult. Pulmonary adjusting vent. No changes clinically. Discussed with Surgery, will plan for Trach and Peg 05/11/19: I took over care on Day 11. Still trying to wean vent and vasopressor. Awaiting PEG and trach. Restraints renewed, CCT 32 minutes, 05/12/19: Hemodialysis today, trach and PEG tomorrow. 05/13/19: Trach and PEG today, restraints renewed. 05/14/19: Daily MV weaning attempts, Awaiting on LTACH, her insurance requiring 20 day ICU stay, she is 14 days in ICU. Restraint renewed History Interval history: Patient was seen and examined. Follow-up on current diagnosis of Afib with RVR. Overnight uneventful as no events directly reported to me. Patient is intubated Imaging, nursing note, chart, labs and old chart reviewed. Hospitalist Physical - Physical exam Narrative exam: Gen: critically ill HEENT: NCAT, ETT in place Neck: supple, no adenopathy, no thyromegaly, no JVD CVS/Heart: irregular irregular, normal S1S2, pulses present bilaterally Chest/Lungs: diminished Symmetrical chest expansion, good air entry bilaterally GI/Abdomen: soft, NTND, good bowel sounds, no guarding or rebound /Bladder: no suprapubic tenderness, no CVA or paraspinal tenderness Extermity/Skin: no c/c/e, no obvious rash MSK: intubated Neuro: intubated Psych: intubated - Constitutional Vitals: Temp Pulse Resp BP Pulse Ox 98.6 F 142 H 25 H 164/75 100 05/14/19 12:15 05/14/19 12:45 05/14/19 12:15 05/14/19 12:45 05/14/19 12:00 General appearance: Present: other (intubated on the vent) ROB score - Rob Score Age > 65: (1) Yes Aspirin use within the Past 7 Days: (1) Yes 3 or more CAD Risk Factors: (1) Yes 2 or more Angina events in past 24 hrs: (0) No Known CAD with more than 50% Stenosis: (0) No Elevated Cardiac Markers: (0) No ST Deviation Greater than 0.5mm: (0) No ROB Score: 3 Results - Labs CBC & Chem 7: 05/14/19 05:21 05/14/19 05:21 Labs: Laboratory Last Values WBC 16.3 K/mm3 (4.5-11.0) H 05/14/19 05:21 RBC 3.55 M/mm3 (3.65-5.03) L 05/14/19 05:21 Hgb 10.3 gm/dl (10.1-14.3) 05/14/19 05:21 Hct 31.9 % (30.3-42.9) 05/14/19 05:21 MCV 90 fl (79-97) 05/14/19 05:21 MCH 29 pg (28-32) 05/14/19 05:21 MCHC 32 % (30-34) 05/14/19 05:21 RDW 16.8 % (13.2-15.2) H 05/14/19 05:21 Plt Count 118 K/mm3 (140-440) L 05/14/19 05:21 Lymph % (Auto) 10.9 % (13.4-35.0) L 04/30/19 11:32 [place] % (Auto) 7.4 % (0.0-7.3) H 04/30/19 11:32 Eos % (Auto) 0.4 % (0.0-4.3) 04/30/19 11:32 Baso % (Auto) 0.7 % (0.0-1.8) 04/30/19 11:32 Lymph # 0.8 K/mm3 (1.2-5.4) L 04/30/19 11:32 [place] # 0.5 K/mm3 (0.0-0.8) 04/30/19 11:32 Eos # 0.0 K/mm3 (0.0-0.4) 04/30/19 11:32 Baso # 0.1 K/mm3 (0.0-0.1) 04/30/19 11:32 Add Manual Diff Complete 05/14/19 05:21 Total Counted 100 05/14/19 05:21 Seg Neutrophils % Baggagemaster 05/14/19 05:21 Seg Neuts % (Manual) 93.0 % (40.0-70.0) H 05/14/19 05:21 Band Neutrophils % 6.0 % 05/14/19 05:21 Lymphocytes % (Manual) 0 % (13.4-35.0) L 05/14/19 05:21 Reactive Lymphs % (Man) 0 % 05/14/19 05:21 Monocytes % (Manual) 1.0 % (0.0-7.3) 05/14/19 05:21 Eosinophils % (Manual) 0 % (0.0-4.3) 05/14/19 05:21 Basophils % (Manual) 0 % (0.0-1.8) 05/14/19 05:21 Metamyelocytes % 0 % 05/14/19 05:21 Myelocytes % 0 % 05/14/19 05:21 Promyelocytes % 0 % 05/14/19 05:21 Blast Cells % 0 % 05/14/19 05:21 Nucleated RBC % Not Reportable 05/14/19 05:21 Seg Neutrophils # 6.0 K/mm3 (1.8-7.7) 04/30/19 11:32 Seg Neutrophils # Man 15.2 K/mm3 (1.8-7.7) H 05/14/19 05:21 Band Neutrophils # 1.0 K/mm3 05/14/19 05:21 Lymphocytes # (Manual) 0.0 K/mm3 (1.2-5.4) L 05/14/19 05:21 Abs React Lymphs (Man) 0.0 K/mm3 05/14/19 05:21 Monocytes # (Manual) 0.2 K/mm3 (0.0-0.8) 05/14/19 05:21 Eosinophils # (Manual) 0.0 K/mm3 (0.0-0.4) 05/14/19 05:21 Basophils # (Manual) 0.0 K/mm3 (0.0-0.1) 05/14/19 05:21 Metamyelocytes # 0.0 K/mm3 05/14/19 05:21 Myelocytes # 0.0 K/mm3 05/14/19 05:21 Promyelocytes # 0.0 K/mm3 05/14/19 05:21 Blast Cells # 0.0 K/mm3 05/14/19 05:21 WBC Morphology Not Reportable 05/14/19 05:21 Hypersegmented Neuts Not Reportable 05/14/19 05:21 Hyposegmented Neuts Not Reportable 05/14/19 05:21 Hypogranular Neuts Not Reportable 05/14/19 05:21 Smudge Cells Not Reportable 05/14/19 05:21 Toxic Granulation Not Reportable 05/14/19 05:21 Toxic Vacuolation Not Reportable 05/14/19 05:21 Dohle Bodies Not Reportable 05/14/19 05:21 Pelger-Huet Anomaly Not Reportable 05/14/19 05:21 Ariel Rods Not Reportable 05/14/19 05:21 Platelet Estimate Consistent w auto 05/14/19 05:21 Clumped Platelets Not Reportable 05/14/19 05:21 Plt Clumps, EDTA Not Reportable 05/14/19 05:21 Large Platelets Not Reportable 05/14/19 05:21 Giant Platelets Not Reportable 05/14/19 05:21 Platelet Satelliting Not Reportable 05/14/19 05:21 Plt Morphology Comment Not Reportable 05/14/19 05:21 RBC Morphology Not Reportable 05/14/19 05:21 Dimorphic RBCs Not Reportable 05/14/19 05:21 Polychromasia Not Reportable 05/14/19 05:21 Hypochromasia Not Reportable 05/14/19 05:21 Poikilocytosis Not Reportable 05/14/19 05:21 Anisocytosis Not Reportable 05/14/19 05:21 Microcytosis Not Reportable 05/14/19 05:21 Macrocytosis Not Reportable 05/14/19 05:21 Spherocytes Not Reportable 05/14/19 05:21 Pappenheimer Bodies Not Reportable 05/14/19 05:21 Sickle Cells Not Reportable 05/14/19 05:21 Target Cells Not Reportable 05/14/19 05:21 Tear Drop Cells Few 05/14/19 05:21 Ovalocytes Not Reportable 05/14/19 05:21 Helmet Cells Not Reportable 05/14/19 05:21 [place] Bodies Not Reportable 05/14/19 05:21 Morris Rings Not Reportable 05/14/19 05:21 [place] Cells Not Reportable 05/14/19 05:21 Bite Cells Not Reportable 05/14/19 05:21 Crenated Cell Not Reportable 05/14/19 05:21 Elliptocytes Few 05/14/19 05:21 Acanthocytes (Spur) Not Reportable 05/14/19 05:21 Rouleaux Not Reportable 05/14/19 05:21 Hemoglobin C Crystals Not Reportable 05/14/19 05:21 Schistocytes Not Reportable 05/14/19 05:21 Malaria parasites Not Reportable 05/14/19 05:21 [place] Bodies Not Reportable 05/14/19 05:21 Hem Pathologist Commnt No 05/14/19 05:21 PT 14.7 Sec. (12.2-14.9) 05/13/19 12:01 INR 1.13 (0.87-1.13) 05/13/19 12:01 APTT 23.5 Sec. (24.2-36.6) L 05/13/19 12:01 ABG pH 7.388 pH Units (7.350-7.450) 05/12/19 04:36 ABG pCO2 38.5 mm Hg 05/12/19 04:36 ABG pO2 79.4 mm Hg (80.0-90.0) L 05/12/19 04:36 ABG HCO3 22.7 mmol/L (20.0-26.0) 05/12/19 04:36 ABG O2 Saturation 96.0 % (95.0-99.0) 05/12/19 04:36 ABG O2 Content 14.5 (0.0-44) 05/12/19 04:36 ABG Base Excess -2.0 mmol/L (-2.0-3.0) 05/12/19 04:36 ABG Hemoglobin 10.9 gm/dl (12.0-16.0) L 05/12/19 04:36 ABG Carboxyhemoglobin 1.4 % (0.0-5.0) 05/12/19 04:36 ABG Methemoglobin 0.7 % (0.0-1.5) 05/12/19 04:36 Oxyhemoglobin 94.0 % (95.0-99.0) L 05/12/19 04:36 FiO2 35 % 05/12/19 04:36 Sodium 137 mmol/L (137-145) 05/14/19 05:21 Potassium 3.9 mmol/L (3.6-5.0) 05/14/19 05:21 Chloride 92.2 mmol/L (98-107) L 05/14/19 05:21 Carbon Dioxide 18 mmol/L (22-30) L 05/14/19 05:21 Anion Gap 31 mmol/L 05/14/19 05:21 BUN 79 mg/dL (7-17) H 05/14/19 05:21 Creatinine 5.7 mg/dL (0.7-1.2) H 05/14/19 05:21 Estimated GFR 9 ml/min 05/14/19 05:21 BUN/Creatinine Ratio 14 % 05/14/19 05:21 Glucose 243 mg/dL (65-100) H 05/14/19 05:21 POC Glucose 236 (70-105) H 05/14/19 05:42 Hemoglobin A1c 5.6 % (4-6) 04/30/19 11:32 Calcium 9.0 mg/dL (8.4-10.2) 05/14/19 05:21 Phosphorus 12.90 mg/dL (2.5-4.5) H 05/03/19 09:44 Magnesium 1.50 mg/dL (1.7-2.3) L 05/11/19 13:00 Total Bilirubin 0.40 mg/dL (0.1-1.2) 05/01/19 12:43 AST 39 units/L (5-40) 05/01/19 12:43 ALT 23 units/L (7-56) 05/01/19 12:43 Alkaline Phosphatase 102 units/L (35-129) 05/01/19 12:43 Total Creatine Kinase Cancelled 04/30/19 14:20 CK-MB (CK-2) Cancelled 04/30/19 14:20 CK-MB (CK-2) Rel Index Cancelled 04/30/19 14:20 Troponin T 0.117 ng/mL (0.00-0.029) H* 04/30/19 14:20 NT-Pro-B Natriuret Pep 40724 pg/mL (0-900) H 04/30/19 14:20 Total Protein 6.6 g/dL (6.3-8.2) 05/01/19 12:43 Albumin 4.0 g/dL (3.9-5) 05/01/19 12:43 Albumin/Globulin Ratio 1.5 % 05/01/19 12:43 Triglycerides 380 mg/dL (2-149) H 05/06/19 04:20 Cholesterol 303 mg/dL (50-199) H 04/30/19 14:20 LDL Cholesterol Direct 190 mg/dL (50-130) H 04/30/19 14:20 HDL Cholesterol 105 mg/dL (40-59) H 04/30/19 14:20 Cholesterol/HDL Ratio 2.88 % 04/30/19 14:20 TSH 0.220 mlU/mL (0.270-4.200) L 05/11/19 13:00 Free T4 0.70 ng/dL (0.76-1.46) L 05/11/19 13:00 Hepatitis A IgM Ab Non-reactive (NonReactive) 04/30/19 14:20 Hep Bs Antigen Non-reactive (Negative) 04/30/19 14:20 Hep B Core IgM Ab Non-reactive (NonReactive) 04/30/19 14:20 Hepatitis C Antibody Non-reactive (NonReactive) 04/30/19 14:20 Taveras/IV: Voiding Method Diaper IV Catheter Type [Left Upper Mid-line arm] IV Catheter Type [Left Mid-line Subclavian] IV Catheter Type [Right Upper INT / Saline Lock arm] IV Catheter Type [Right Hand] INT / Saline Lock IV Catheter Type [Left Forearm INT / Saline Lock ] IV Catheter Type [Right VAS Cath Internal Jugular] Active Medications - Current Medications Current Medications: Generic Name Dose Route Start Last Admin Trade Name Freq PRN Reason Stop Dose Admin Acetaminophen 650 mg 04/30/19 17:44 05/05/19 15:22 Tylenol PO 650 mg Q4H PRN Administration Pain MILD(1-3)/Fever >100.5/HERRMANN Albumin Human 25 gm 05/14/19 13:37 Alburx 25% (Albumin) IV 05/14/19 13:38 ONCE ONE Albuterol 2.5 mg 04/30/19 18:32 05/02/19 04:49 Proventil IH 2.5 mg Q3H PRN Administration Shortness Of Breath Albuterol/Ipratropium 1 ampul 05/11/19 14:00 05/14/19 07:24 Duoneb *Not For Prn Use* IH Not Given TIDRT KVNG Amiodarone HCl 200 mg 05/12/19 10:00 05/14/19 09:38 Cordarone PO 200 mg QDAY KVNG Administration Lipase/Protease/Amylase 1 each 05/04/19 14:58 Pancreaziavnia Gould 10,500 Unit FEEDTUBE PRN PRN For Clogged Feeding Tube Arformoterol Tartrate 15 mcg 05/01/19 08:00 05/14/19 07:24 Brovana Nebu IH 15 mcg Q12HRT KVNG Administration Aspirin 81 mg 05/11/19 10:00 05/14/19 09:39 Baby Aspirin PO 81 mg QDAY KVNG Administration Budesonide 0.5 mg 05/03/19 11:00 05/14/19 07:24 Pulmicort IH 0.5 mg Q12HRT KVNG Administration Buspirone HCl 15 mg 05/04/19 10:00 05/14/19 09:38 Buspar PO 15 mg BID KVNG Administration Diltiazem HCl 30 mg 05/11/19 12:00 05/14/19 12:38 Cardizem PO 30 mg Q6HR KVNG Administration Famotidine 20 mg 05/10/19 10:00 05/14/19 09:38 Pepcid IV 20 mg DAILY KVNG Administration Fentanyl 50 mcg 05/11/19 10:00 05/14/19 13:23 Sublimaze IV 50 mcg Q2H PRN Administration AGITATION Hydralazine HCl 5 mg 05/01/19 22:47 05/14/19 10:38 Apresoline IV 5 mg Q6HR PRN Administration SBP > 160 AND/OR DBP > 100 Hydrophilic Ointment 1 applic 05/04/19 09:42 Vaseline Lip Therapy TP Q2HR PRN Dry Lips Sodium Chloride 100 mls @ 999 mls/hr 04/30/19 13:29 Nacl 0.9% IV ALBINO PRN Hypotension Propofol 1,000 mg in 100 mls @ 1.482 mls/hr 05/04/19 09:00 05/06/19 07:50 Diprivan 10 Mg/Ml IV 0 mcg/kg/min TITR KVNG 0 mls/hr Titration Protocol 5 MCG/KG/MIN Norepinephrine 4 mg in 250 mls @ 7.5 mls/hr 05/08/19 09:00 05/12/19 14:38 Levophed Drip 4 Mg/Ns 250 Ml IV 0 mcg/min TITR KVNG 0 mls/hr Titration Protocol 2 MCG/MIN Insulin Glargine 10 units 05/14/19 22:00 Lantus SUB-Q QHS [facility] Insulin Human Lispro 0 unit 05/05/19 18:00 05/14/19 07:00 Humalog SUB-Q 4 unit Q6HR [facility] Administration Protocol Lorazepam 1 mg 05/02/19 11:08 05/12/19 15:46 Ativan IV 1 mg Q4H PRN Administration Anxiety Methylprednisolone Sodium Succinate 40 mg 05/14/19 12:00 05/14/19 12:30 Solu-Medrol IV 40 mg Q8H KVNG Administration Metoclopramide HCl 5 mg 05/10/19 14:00 05/14/19 02:00 Reglan IV Not Given Q12H [facility] Montelukast Sodium 10 mg 04/30/19 19:00 05/13/19 18:32 Singulair PO Not Given QPM KVNG Multi-Ingred Cream/Lotion/Oil/Oint 1 applic 05/04/19 09:42 Artificial Tears Ophth Oint OU Q4HR PRN Dry Eye(s) Pravastatin Sodium 40 mg 04/30/19 22:00 05/13/19 22:05 Pravachol PO 40 mg QHS KVNG Administration Simple Syrup 15 ml 05/04/19 14:58 Simple Syrup FEEDTUBE PRN PRN Hypoglycemia Simple Syrup 30 ml 05/04/19 14:58 Simple Syrup FEEDTUBE PRN PRN Hypoglycemia Sodium Bicarbonate 325 mg 05/04/19 14:58 Sodium Bicarbonate FEEDTUBE PRN PRN For Clogged Feeding Tube Sodium Chloride 10 ml 04/30/19 22:00 05/14/19 09:39 Sodium Chloride Flush Syringe 10 Ml IV 10 ml BID KVNG Administration Sodium Chloride 10 ml 04/30/19 17:44 05/01/19 03:55 Sodium Chloride Flush Syringe 10 Ml IV 10 ml PRN PRN Administration LINE FLUSH Nutrition/Malnutrition Assess - Dietary Evaluation Nutrition/Malnutrition Findings: Nutrition Notes Start: 05/04/19 11:09 Freq: Status: Active Protocol: Document 05/12/19 10:54 LM (Rec: 05/12/19 10:56 LM [id number]) Nutrition Notes Initial or Follow up Brief Note Current Diet NPO Subjective/Other Information Pt NPO for trach and PEG placement Nutrition Intervention Follow-Up By: 05/14/19 Additional Comments F/U for TF restart/tolerance
[2019-05-14] MEDS ORDERED: SODIUM CHLORIDE 0.9% 100 ML IV PRN (13:53)
--- NOTE | 2019-05-14 16:26 | Progress Note ---
Subjective Principal diagnosis: Acute resp failure,COPd exacerbation Interval history: Patient was seen today for follow-up of multiple renal related issues, around 6:30 PM has had dialysis today Prescription had to be changed Overall treatment was well tolerated Events of 24 hours vitals labs intake output medications were reviewed Past medical history: Reviewed Family history: Reviewed Social history: Reviewed Allergies: Reviewed Physical examination: Vitals: Reviewed HEENT: No pallor or icterus oral mucosa moist Neck: Supple no JVD no thyromegaly Chest: bilateral few basilar crackles Heart: Regular rate and rhythm S1-S2 heard no S3-S4 Abdomen: Soft nontender no voluntary guarding rigidity rebound Extremity: Dry skin less than 1+ peripheral edema Labs and x-rays: Reviewed from today Assessment and plan ESRD currently maintenance of a dialysis Friday and Friday dialysis prescription was changed today, albumin was ordered patient tolerated dialysis treatment well anemia and end-stage renal disease: To monitor and follow Monitor renal-related labs, periodically at this point we may need to Discontinue allopurinol, discontinue sodium bicarbonate Cardiomyopathy atrial fibrillation currently being followed by cardiology prognosis remains guarded to poor We'll continue to follow and make recommendation for renal standpoint Objective - Vital Signs Vital signs: Vital Signs - 12hr 05/14/19 05/14/19 05/14/19 04:30 04:46 05:00 Temperature Pulse Rate 87 94 H 91 H Pulse Rate [ Anterior Bilateral] Pulse Rate [ From Monitor] Respiratory 24 28 H 25 H Rate Respiratory Rate [Anterior Bilateral] Blood Pressure 149/74 218/101 201/90 O2 Sat by Pulse 100 100 100 Oximetry 05/14/19 05/14/19 05/14/19 05:16 05:21 05:30 Temperature Pulse Rate 98 H 96 H 100 H Pulse Rate [ Anterior Bilateral] Pulse Rate [ From Monitor] Respiratory 26 H 24 Rate Respiratory Rate [Anterior Bilateral] Blood Pressure 201/90 212/169 168/105 O2 Sat by Pulse 100 99 99 Oximetry 05/14/19 05/14/19 05/14/19 05:46 06:00 06:16 Temperature Pulse Rate 94 H 85 84 Pulse Rate [ Anterior Bilateral] Pulse Rate [ From Monitor] Respiratory 24 25 H 24 Rate Respiratory Rate [Anterior Bilateral] Blood Pressure 168/105 168/105 87/55 O2 Sat by Pulse 98 100 99 Oximetry 05/14/19 05/14/19 05/14/19 06:30 06:46 06:59 Temperature Pulse Rate 82 91 H 94 H Pulse Rate [ Anterior Bilateral] Pulse Rate [ From Monitor] Respiratory 24 16 Rate Respiratory Rate [Anterior Bilateral] Blood Pressure 92/52 92/52 92/52 O2 Sat by Pulse 99 98 Oximetry 05/14/19 05/14/19 05/14/19 07:00 07:16 07:20 Temperature Pulse Rate 85 89 89 Pulse Rate [ Anterior Bilateral] Pulse Rate [ From Monitor] Respiratory 24 22 Rate Respiratory Rate [Anterior Bilateral] Blood Pressure 193/77 193/77 187/114 O2 Sat by Pulse 100 99 100 Oximetry 05/14/19 05/14/19 05/14/19 07:24 07:30 07:46 Temperature Pulse Rate 99 H 86 Pulse Rate [ 96 H Anterior Bilateral] Pulse Rate [ From Monitor] Respiratory 27 H 20 Rate Respiratory 24 Rate [Anterior Bilateral] Blood Pressure 200/113 209/117 O2 Sat by Pulse 100 100 Oximetry 05/14/19 05/14/19 05/14/19 08:00 08:16 08:30 Temperature 95.6 F L Pulse Rate 93 H 92 H 94 H Pulse Rate [ Anterior Bilateral] Pulse Rate [ 93 H From Monitor] Respiratory 26 H 23 24 Rate Respiratory Rate [Anterior Bilateral] Blood Pressure 209/117 199/94 199/94 O2 Sat by Pulse 100 100 100 Oximetry 05/14/19 05/14/19 05/14/19 08:46 09:00 09:16 Temperature Pulse Rate 94 H 101 H 98 H Pulse Rate [ Anterior Bilateral] Pulse Rate [ From Monitor] Respiratory 28 H 31 H 25 H Rate Respiratory Rate [Anterior Bilateral] Blood Pressure 186/106 171/102 171/102 O2 Sat by Pulse 100 100 100 Oximetry 05/14/19 05/14/19 05/14/19 09:30 09:46 10:00 Temperature Pulse Rate 91 H 101 H 101 H Pulse Rate [ Anterior Bilateral] Pulse Rate [ From Monitor] Respiratory 25 H 32 H 31 H Rate Respiratory Rate [Anterior Bilateral] Blood Pressure 171/102 154/77 154/77 O2 Sat by Pulse 100 100 100 Oximetry 05/14/19 05/14/19 05/14/19 10:16 10:30 10:38 Temperature Pulse Rate 101 H 99 H 96 H Pulse Rate [ Anterior Bilateral] Pulse Rate [ From Monitor] Respiratory 30 H 30 H Rate Respiratory Rate [Anterior Bilateral] Blood Pressure 154/77 154/77 221/89 O2 Sat by Pulse 100 100 Oximetry 05/14/19 05/14/19 05/14/19 10:46 11:00 11:16 Temperature Pulse Rate 102 H 100 H 109 H Pulse Rate [ Anterior Bilateral] Pulse Rate [ From Monitor] Respiratory 27 H 21 32 H Rate Respiratory Rate [Anterior Bilateral] Blood Pressure 227/80 145/67 156/52 O2 Sat by Pulse 100 100 100 Oximetry 05/14/19 05/14/19 05/14/19 11:30 11:36 11:46 Temperature Pulse Rate 99 H 101 H 99 H Pulse Rate [ Anterior Bilateral] Pulse Rate [ From Monitor] Respiratory 29 H 22 Rate Respiratory Rate [Anterior Bilateral] Blood Pressure 156/52 164/74 164/74 O2 Sat by Pulse 100 99 100 Oximetry 05/14/19 05/14/19 05/14/19 12:00 12:15 12:30 Temperature 97 F L 98.6 F Pulse Rate 105 H 101 H 105 H Pulse Rate [ Anterior Bilateral] Pulse Rate [ 105 H From Monitor] Respiratory 28 H 29 H 30 H Rate Respiratory Rate [Anterior Bilateral] Blood Pressure 155/84 179/70 179/70 O2 Sat by Pulse 100 100 100 Oximetry 05/14/19 05/14/19 05/14/19 12:38 12:45 12:46 Temperature Pulse Rate 134 H 142 H 135 H Pulse Rate [ Anterior Bilateral] Pulse Rate [ From Monitor] Respiratory 29 H Rate Respiratory Rate [Anterior Bilateral] Blood Pressure 179/71 164/75 205/70 O2 Sat by Pulse 99 Oximetry 05/14/19 05/14/19 05/14/19 13:00 13:15 13:30 Temperature Pulse Rate 114 H 131 H 125 H Pulse Rate [ Anterior Bilateral] Pulse Rate [ From Monitor] Respiratory 31 H 32 H 33 H Rate Respiratory Rate [Anterior Bilateral] Blood Pressure 164/75 147/72 149/89 O2 Sat by Pulse 99 99 99 Oximetry 05/14/19 05/14/19 05/14/19 13:45 14:00 14:04 Temperature Pulse Rate 111 H 104 H 101 H Pulse Rate [ Anterior Bilateral] Pulse Rate [ From Monitor] Respiratory 30 H 22 Rate Respiratory Rate [Anterior Bilateral] Blood Pressure 146/83 146/83 153/89 O2 Sat by Pulse 99 100 Oximetry 05/14/19 05/14/19 05/14/19 14:15 14:30 14:45 Temperature Pulse Rate 103 H 105 H 103 H Pulse Rate [ Anterior Bilateral] Pulse Rate [ From Monitor] Respiratory 30 H 26 H 29 H Rate Respiratory Rate [Anterior Bilateral] Blood Pressure 156/96 156/90 156/90 O2 Sat by Pulse 100 100 100 Oximetry 05/14/19 05/14/19 05/14/19 15:00 15:15 15:16 Temperature Pulse Rate 100 H 107 H 107 H Pulse Rate [ Anterior Bilateral] Pulse Rate [ From Monitor] Respiratory 25 H 32 H Rate Respiratory Rate [Anterior Bilateral] Blood Pressure 156/90 180/95 180/95 O2 Sat by Pulse 100 100 100 Oximetry 05/14/19 05/14/19 05/14/19 15:19 15:30 15:31 Temperature Pulse Rate 100 H 99 H Pulse Rate [ 110 H Anterior Bilateral] Pulse Rate [ From Monitor] Respiratory 25 H Rate Respiratory 29 H Rate [Anterior Bilateral] Blood Pressure 172/103 173/103 O2 Sat by Pulse 100 Oximetry 05/14/19 15:49 Temperature 97.0 F L Pulse Rate 94 H Pulse Rate [ Anterior Bilateral] Pulse Rate [ From Monitor] Respiratory 23 Rate Respiratory Rate [Anterior Bilateral] Blood Pressure 176/105 O2 Sat by Pulse Oximetry - Lab 05/15/19 07:15 05/15/19 07:15 Most recent lab results ABG pH 7.388 pH Units (7.350-7.450) 05/12/19 04:36 ABG pCO2 38.5 mm Hg 05/12/19 04:36 ABG pO2 79.4 mm Hg (80.0-90.0) L 05/12/19 04:36 ABG HCO3 22.7 mmol/L (20.0-26.0) 05/12/19 04:36 ABG O2 Saturation 96.0 % (95.0-99.0) 05/12/19 04:36 Calcium 9.0 mg/dL (8.4-10.2) 05/14/19 05:21 Phosphorus 12.90 mg/dL (2.5-4.5) H 05/03/19 09:44 Magnesium 1.50 mg/dL (1.7-2.3) L 05/11/19 13:00 Medications & Allergies - Medications Allergies/Adverse Reactions: Allergies latex Allergy (Verified 02/05/19 13:51) Hives milk Allergy (Verified 02/05/19 13:51) Rash Home Medications: Home Medications Medication Instructions Recorded Confirmed Last Taken Type Metoprolol [Lopressor TAB] 50 mg PO BID #60 tablet 01/27/18 05/03/19 04/11/19 Rx Montelukast [Singulair] 10 mg PO QPM #30 tablet 01/27/18 05/03/19 04/11/19 Rx Pravastatin [Pravachol] 40 mg PO QHS #30 tablet 01/27/18 05/03/19 04/11/19 Rx allopurinoL [Zyloprim] 100 mg PO QDAY #30 tablet 01/27/18 05/03/19 04/11/19 Rx Famotidine [Pepcid] 20 mg PO BID 06/17/18 05/03/19 04/11/19 History Fluticasone/Vilanterol [Breo 1 each IH BID #1 blst.w.dev 12/31/18 05/03/19 04/11/19 Rx Ellipta 200-25 Mcg INH] Tiotropium Raymond [Spiriva 4 gm IH DAILY #1 mist.inhal 12/31/18 05/03/19 04/11/19 Rx Respimat] Aspirin EC [Halfprin EC] 81 mg PO QDAY #30 tablet. 02/18/19 05/03/19 04/11/19 Rx ISOSORBIDE MONOnitrate [Imdur ER] 30 mg PO QDAY #30 tablet 02/18/19 05/03/19 Unknown Rx glipiZIDE [Glucotrol] 5 mg PO QDAY #30 tablet 02/18/19 05/03/19 Unknown Rx ALBUTEROL NEB's [Proventil 0.083% 2.5 mg IH Q4HRT PRN #30 nebu 04/15/19 05/03/19 Unknown Rx NEBS] Furosemide [Lasix] 20 mg PO QDAY #30 tablet 04/15/19 05/03/19 Unknown Rx Ipratropium/Albuterol Sulfate 2 puff IH BID #1 unit 04/15/19 05/03/19 Unknown Rx [Combivent Respimat] Olanzapine/Fluoxetine HCl [Symbyax 1 each PO QHS #30 capsule 04/15/19 05/03/19 Unknown Rx 3-25 mg] Sodium Bicarbonate 650 mg PO BID #60 tablet 04/15/19 05/03/19 Unknown Rx amLODIPine 10 mg PO DAILY #30 tablet 04/15/19 05/03/19 Unknown Rx cefUROXime [Ceftin] 250 mg PO Q12H #14 tablet 04/15/19 05/03/19 Unknown Rx predniSONE [Deltasone] 1 tab PO QDAY #91 tab 04/15/19 05/03/19 Unknown Rx traMADoL [Ultram 50 MG tab] 50 mg PO Q8H PRN #15 tab 04/15/19 05/03/19 04/11/19 Rx Active Medications: Generic Name Dose Route Start Last Admin Trade Name Freq PRN Reason Stop Dose Admin Acetaminophen 650 mg 04/30/19 17:44 05/05/19 15:22 Tylenol PO 650 mg Q4H PRN Administration Pain MILD(1-3)/Fever >100.5/HERRMANN Albuterol 2.5 mg 04/30/19 18:32 05/02/19 04:49 Proventil IH 2.5 mg Q3H PRN Administration Shortness Of Breath Albuterol/Ipratropium 1 ampul 05/11/19 14:00 05/14/19 15:18 Duoneb *Not For Prn Use* IH 1 ampul TIDRT KVNG Administration Amiodarone HCl 200 mg 05/12/19 10:00 05/14/19 09:38 Cordarone PO 200 mg QDAY KVNG Administration Lipase/Protease/Amylase 1 each 05/04/19 14:58 Pancrejessica Gould 10,500 Unit FEEDTUBE PRN PRN For Clogged Feeding Tube Arformoterol Tartrate 15 mcg 05/01/19 08:00 05/14/19 07:24 Brovana Nebu IH 15 mcg Q12HRT KVNG Administration Aspirin 81 mg 05/11/19 10:00 05/14/19 09:39 Baby Aspirin PO 81 mg QDAY KVNG Administration Budesonide 0.5 mg 05/03/19 11:00 05/14/19 07:24 Pulmicort IH 0.5 mg Q12HRT KVNG Administration Buspirone HCl 15 mg 05/04/19 10:00 05/14/19 09:38 Buspar PO 15 mg BID KVNG Administration Diltiazem HCl 30 mg 05/11/19 12:00 05/14/19 12:38 Cardizem PO 30 mg Q6HR KVNG Administration Famotidine 20 mg 05/10/19 10:00 05/14/19 09:38 Pepcid IV 20 mg DAILY KVNG Administration Fentanyl 50 mcg 05/11/19 10:00 05/14/19 13:23 Sublimaze IV 50 mcg Q2H PRN Administration AGITATION Hydralazine HCl 5 mg 05/01/19 22:47 05/14/19 10:38 Apresoline IV 5 mg Q6HR PRN Administration SBP > 160 AND/OR DBP > 100 Hydrophilic Ointment 1 applic 05/04/19 09:42 Vaseline Lip Therapy TP Q2HR PRN Dry Lips Sodium Chloride 100 mls @ 999 mls/hr 04/30/19 13:29 Nacl 0.9% IV ALBINO PRN Hypotension Propofol 1,000 mg in 100 mls @ 1.482 mls/hr 05/04/19 09:00 05/06/19 07:50 Diprivan 10 Mg/Ml IV 0 mcg/kg/min TITR KVNG 0 mls/hr Titration Protocol 5 MCG/KG/MIN Norepinephrine 4 mg in 250 mls @ 7.5 mls/hr 05/08/19 09:00 05/12/19 14:38 Levophed Drip 4 Mg/Ns 250 Ml IV 0 mcg/min TITR KVNG 0 mls/hr Titration Protocol 2 MCG/MIN Sodium Chloride 100 mls @ 999 mls/hr 05/14/19 13:53 Nacl 0.9% IV ALBINO PRN Hypotension Insulin Glargine 10 units 05/14/19 22:00 Lantus SUB-Q QHS [facility] Insulin Human Lispro 0 unit 05/05/19 18:00 05/14/19 12:30 Humalog SUB-Q 3 unit Q6HR KVNG Administration Protocol Lorazepam 1 mg 05/02/19 11:08 05/12/19 15:46 Ativan IV 1 mg Q4H PRN Administration Anxiety Methylprednisolone Sodium Succinate 40 mg 05/14/19 12:00 05/14/19 12:30 Solu-Medrol IV 40 mg Q8H KVNG Administration Metoclopramide HCl 5 mg 05/10/19 14:00 05/14/19 14:30 Reglan IV 5 mg Q12H KVNG Administration Montelukast Sodium 10 mg 04/30/19 19:00 05/13/19 18:32 Singulair PO Not Given QPM KVNG Multi-Ingred Cream/Lotion/Oil/Oint 1 applic 05/04/19 09:42 Artificial Tears Ophth Oint OU Q4HR PRN Dry Eye(s) Pravastatin Sodium 40 mg 04/30/19 22:00 05/13/19 22:05 Pravachol PO 40 mg QHS KVNG Administration Simple Syrup 15 ml 05/04/19 14:58 Simple Syrup FEEDTUBE PRN PRN Hypoglycemia Simple Syrup 30 ml 05/04/19 14:58 Simple Syrup FEEDTUBE PRN PRN Hypoglycemia Sodium Bicarbonate 325 mg 05/04/19 14:58 Sodium Bicarbonate FEEDTUBE PRN PRN For Clogged Feeding Tube Sodium Chloride 10 ml 04/30/19 22:00 05/14/19 09:39 Sodium Chloride Flush Syringe 10 Ml IV 10 ml BID KVNG Administration Sodium Chloride 10 ml 04/30/19 17:44 05/01/19 03:55 Sodium Chloride Flush Syringe 10 Ml IV 10 ml PRN PRN Administration LINE FLUSH
[2019-05-14] MEDS: MONTELUKAST 10 MG TAB PO SCH (18:02)
[2019-05-14] MEDS: PRAVASTATIN 40 MG TAB PO SCH (22:29)
[2019-05-14] MEDS: INSULIN GLARGINE 100 UNITS/ML SUB-Q SCH (22:34)
[2019-05-15] MEDS: INSULIN LISPRO 100 UNIT/ML SUB-Q SCH ×4 (00:48→18:51)
[2019-05-15] MEDS: dilTIAZem 30 MG TAB PO SCH ×3 (00:48→12:26)
[2019-05-15] MEDS: methylPREDNISolone Sod Succinate 125 MG/2 ML INJ IV SCH ×3 (06:46→22:58)
--- NOTE | 2019-05-15 07:39 | Progress Note ---
Assessment and Plan Assessment and plan: Patient is a 78 yo AA woman with a history of AR, Diastolic CHF, CAD S/P CABG, DM, Asthma, OA, Anxiety disorder, Chronic Respiratory Failure on 2-3 L Home oxygen due to end stage COPD and ESRD on HD(M,W,F) who presented to [facility] ED on 04/30/2019 with SOB and wheezing for 2 days. Acute on chronic hypoxic respiratory failure >96 hours: trying to wean, CCM Atrial Fibrillation with RVR: metoprolol IV with holding parameters, Cardiology consulted Acute COPD exacerbation: Continue neb treatments, antibiotics, steroids and oxygen supplement Anxiety disorder: Continue Klonopin Hyperglycemia: Continue to monitor likely induced by steroid use. 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 Continue management. 05/07: Discussed with family and supervisor meter repair shop, will proceed with re-intubation and possible plan for Trach and PEG. Daughter informs me that the patient is very anxious and believes that this hampers extubation. Stated that she had discussed with supervisor meter repair shop to reintubate the patient if she failed extubation. She does understand the process of weaning from ventilation. 05/08: Hyperkalemia, Nephrology managing 05/09: Afib, will optimize, and plan for trach and PEG. Cardiology consult. Pulmonary adjusting vent. No changes clinically. Discussed with Surgery, will plan for Trach and Peg 05/11/19: I took over care on Day 11. Still trying to wean vent and vasopressor. Awaiting PEG and trach. Restraints renewed, CCT 32 minutes, 05/12/19: Hemodialysis today, trach and PEG tomorrow. 05/13/19: Trach and PEG today, restraints renewed. 05/14/19: Daily MV weaning attempts, Awaiting on LTACH, her insurance requiring 20 day ICU stay, she is 14 days in ICU. Restraint renewed 05/15/19: Still intubated, PEEP 8 FiO2 40%, Restraints renewed. Hyperglycemia should improve with weaning of steroids, currently on Lantus 10u/Humalog SSI History Interval history: Patient was seen and examined. Follow-up on current diagnosis of Afib with RVR. Overnight uneventful as no events directly reported to me. Patient is intubated Imaging, nursing note, chart, labs and old chart reviewed. Hospitalist Physical - Physical exam Narrative exam: Gen: critically ill HEENT: NCAT, ETT in place Neck: supple, no adenopathy, no thyromegaly, no JVD CVS/Heart: irregular irregular, normal S1S2, pulses present bilaterally Chest/Lungs: diminished Symmetrical chest expansion, good air entry bilaterally GI/Abdomen: soft, NTND, good bowel sounds, no guarding or rebound /Bladder: no suprapubic tenderness, no CVA or paraspinal tenderness Extermity/Skin: no c/c/e, no obvious rash MSK: intubated Neuro: intubated Psych: intubated - Constitutional Vitals: Temp Pulse Resp BP Pulse Ox 99.2 F 115 H 29 H 118/43 100 05/15/19 03:38 05/15/19 07:00 05/15/19 07:00 05/15/19 07:00 05/15/19 07:00 General appearance: Present: other (intubated on the vent) ROB score - Rob Score Age > 65: (1) Yes Aspirin use within the Past 7 Days: (1) Yes 3 or more CAD Risk Factors: (1) Yes 2 or more Angina events in past 24 hrs: (0) No Known CAD with more than 50% Stenosis: (0) No Elevated Cardiac Markers: (0) No ST Deviation Greater than 0.5mm: (0) No ROB Score: 3 Results - Labs CBC & Chem 7: 05/14/19 05:21 05/14/19 05:21 Labs: Laboratory Last Values WBC 16.3 K/mm3 (4.5-11.0) H 05/14/19 05:21 RBC 3.55 M/mm3 (3.65-5.03) L 05/14/19 05:21 Hgb 10.3 gm/dl (10.1-14.3) 05/14/19 05:21 Hct 31.9 % (30.3-42.9) 05/14/19 05:21 MCV 90 fl (79-97) 05/14/19 05:21 MCH 29 pg (28-32) 05/14/19 05:21 MCHC 32 % (30-34) 05/14/19 05:21 RDW 16.8 % (13.2-15.2) H 05/14/19 05:21 Plt Count 118 K/mm3 (140-440) L 05/14/19 05:21 Lymph % (Auto) 10.9 % (13.4-35.0) L 04/30/19 11:32 Logan % (Auto) 7.4 % (0.0-7.3) H 04/30/19 11:32 Eos % (Auto) 0.4 % (0.0-4.3) 04/30/19 11:32 Baso % (Auto) 0.7 % (0.0-1.8) 04/30/19 11:32 Lymph # 0.8 K/mm3 (1.2-5.4) L 04/30/19 11:32 Logan # 0.5 K/mm3 (0.0-0.8) 04/30/19 11:32 Eos # 0.0 K/mm3 (0.0-0.4) 04/30/19 11:32 Baso # 0.1 K/mm3 (0.0-0.1) 04/30/19 11:32 Add Manual Diff Complete 05/14/19 05:21 Total Counted 100 05/14/19 05:21 Seg Neutrophils % Manager Java 05/14/19 05:21 Seg Neuts % (Manual) 93.0 % (40.0-70.0) H 05/14/19 05:21 Band Neutrophils % 6.0 % 05/14/19 05:21 Lymphocytes % (Manual) 0 % (13.4-35.0) L 05/14/19 05:21 Reactive Lymphs % (Man) 0 % 05/14/19 05:21 Monocytes % (Manual) 1.0 % (0.0-7.3) 05/14/19 05:21 Eosinophils % (Manual) 0 % (0.0-4.3) 05/14/19 05:21 Basophils % (Manual) 0 % (0.0-1.8) 05/14/19 05:21 Metamyelocytes % 0 % 05/14/19 05:21 Myelocytes % 0 % 05/14/19 05:21 Promyelocytes % 0 % 05/14/19 05:21 Blast Cells % 0 % 05/14/19 05:21 Nucleated RBC % Not Reportable 05/14/19 05:21 Seg Neutrophils # 6.0 K/mm3 (1.8-7.7) 04/30/19 11:32 Seg Neutrophils # Man 15.2 K/mm3 (1.8-7.7) H 05/14/19 05:21 Band Neutrophils # 1.0 K/mm3 05/14/19 05:21 Lymphocytes # (Manual) 0.0 K/mm3 (1.2-5.4) L 05/14/19 05:21 Abs React Lymphs (Man) 0.0 K/mm3 05/14/19 05:21 Monocytes # (Manual) 0.2 K/mm3 (0.0-0.8) 05/14/19 05:21 Eosinophils # (Manual) 0.0 K/mm3 (0.0-0.4) 05/14/19 05:21 Basophils # (Manual) 0.0 K/mm3 (0.0-0.1) 05/14/19 05:21 Metamyelocytes # 0.0 K/mm3 05/14/19 05:21 Myelocytes # 0.0 K/mm3 05/14/19 05:21 Promyelocytes # 0.0 K/mm3 05/14/19 05:21 Blast Cells # 0.0 K/mm3 05/14/19 05:21 WBC Morphology Not Reportable 05/14/19 05:21 Hypersegmented Neuts Not Reportable 05/14/19 05:21 Hyposegmented Neuts Not Reportable 05/14/19 05:21 Hypogranular Neuts Not Reportable 05/14/19 05:21 Smudge Cells Not Reportable 05/14/19 05:21 Toxic Granulation Not Reportable 05/14/19 05:21 Toxic Vacuolation Not Reportable 05/14/19 05:21 Dohle Bodies Not Reportable 05/14/19 05:21 Pelger-Huet Anomaly Not Reportable 05/14/19 05:21 Ariel Rods Not Reportable 05/14/19 05:21 Platelet Estimate Consistent w auto 05/14/19 05:21 Clumped Platelets Not Reportable 05/14/19 05:21 Plt Clumps, EDTA Not Reportable 05/14/19 05:21 Large Platelets Not Reportable 05/14/19 05:21 Giant Platelets Not Reportable 05/14/19 05:21 Platelet Satelliting Not Reportable 05/14/19 05:21 Plt Morphology Comment Not Reportable 05/14/19 05:21 RBC Morphology Not Reportable 05/14/19 05:21 Dimorphic RBCs Not Reportable 05/14/19 05:21 Polychromasia Not Reportable 05/14/19 05:21 Hypochromasia Not Reportable 05/14/19 05:21 Poikilocytosis Not Reportable 05/14/19 05:21 Anisocytosis Not Reportable 05/14/19 05:21 Microcytosis Not Reportable 05/14/19 05:21 Macrocytosis Not Reportable 05/14/19 05:21 Spherocytes Not Reportable 05/14/19 05:21 Pappenheimer Bodies Not Reportable 05/14/19 05:21 Sickle Cells Not Reportable 05/14/19 05:21 Target Cells Not Reportable 05/14/19 05:21 Tear Drop Cells Few 05/14/19 05:21 Ovalocytes Not Reportable 05/14/19 05:21 Helmet Cells Not Reportable 05/14/19 05:21 [place] Bodies Not Reportable 05/14/19 05:21 [place] Rings Not Reportable 05/14/19 05:21 [place] Cells Not Reportable 05/14/19 05:21 Bite Cells Not Reportable 05/14/19 05:21 Crenated Cell Not Reportable 05/14/19 05:21 Elliptocytes Few 05/14/19 05:21 Acanthocytes (Spur) Not Reportable 05/14/19 05:21 Rouleaux Not Reportable 05/14/19 05:21 Hemoglobin C Crystals Not Reportable 05/14/19 05:21 Schistocytes Not Reportable 05/14/19 05:21 Malaria parasites Not Reportable 05/14/19 05:21 [place] Bodies Not Reportable 05/14/19 05:21 Hem Pathologist Commnt No 05/14/19 05:21 PT 14.7 Sec. (12.2-14.9) 05/13/19 12:01 INR 1.13 (0.87-1.13) 05/13/19 12:01 APTT 23.5 Sec. (24.2-36.6) L 05/13/19 12:01 ABG pH 7.388 pH Units (7.350-7.450) 05/12/19 04:36 ABG pCO2 38.5 mm Hg 05/12/19 04:36 ABG pO2 79.4 mm Hg (80.0-90.0) L 05/12/19 04:36 ABG HCO3 22.7 mmol/L (20.0-26.0) 05/12/19 04:36 ABG O2 Saturation 96.0 % (95.0-99.0) 05/12/19 04:36 ABG O2 Content 14.5 (0.0-44) 05/12/19 04:36 ABG Base Excess -2.0 mmol/L (-2.0-3.0) 05/12/19 04:36 ABG Hemoglobin 10.9 gm/dl (12.0-16.0) L 05/12/19 04:36 ABG Carboxyhemoglobin 1.4 % (0.0-5.0) 05/12/19 04:36 ABG Methemoglobin 0.7 % (0.0-1.5) 05/12/19 04:36 Oxyhemoglobin 94.0 % (95.0-99.0) L 05/12/19 04:36 FiO2 35 % 05/12/19 04:36 Sodium 137 mmol/L (137-145) 05/14/19 05:21 Potassium 3.9 mmol/L (3.6-5.0) 05/14/19 05:21 Chloride 92.2 mmol/L (98-107) L 05/14/19 05:21 Carbon Dioxide 18 mmol/L (22-30) L 05/14/19 05:21 Anion Gap 31 mmol/L 05/14/19 05:21 BUN 79 mg/dL (7-17) H 05/14/19 05:21 Creatinine 5.7 mg/dL (0.7-1.2) H 05/14/19 05:21 Estimated GFR 9 ml/min 05/14/19 05:21 BUN/Creatinine Ratio 14 % 05/14/19 05:21 Glucose 243 mg/dL (65-100) H 05/14/19 05:21 POC Glucose 275 (70-105) H 05/15/19 05:38 Hemoglobin A1c 5.6 % (4-6) 04/30/19 11:32 Calcium 9.0 mg/dL (8.4-10.2) 05/14/19 05:21 Phosphorus 12.90 mg/dL (2.5-4.5) H 05/03/19 09:44 Magnesium 1.50 mg/dL (1.7-2.3) L 05/11/19 13:00 Total Bilirubin 0.40 mg/dL (0.1-1.2) 05/01/19 12:43 AST 39 units/L (5-40) 05/01/19 12:43 ALT 23 units/L (7-56) 05/01/19 12:43 Alkaline Phosphatase 102 units/L (35-129) 05/01/19 12:43 Total Creatine Kinase Cancelled 04/30/19 14:20 CK-MB (CK-2) Cancelled 04/30/19 14:20 CK-MB (CK-2) Rel Index Cancelled 04/30/19 14:20 Troponin T 0.117 ng/mL (0.00-0.029) H* 04/30/19 14:20 NT-Pro-B Natriuret Pep 48114 pg/mL (0-900) H 04/30/19 14:20 Total Protein 6.6 g/dL (6.3-8.2) 05/01/19 12:43 Albumin 4.0 g/dL (3.9-5) 05/01/19 12:43 Albumin/Globulin Ratio 1.5 % 05/01/19 12:43 Triglycerides 380 mg/dL (2-149) H 05/06/19 04:20 Cholesterol 303 mg/dL (50-199) H 04/30/19 14:20 LDL Cholesterol Direct 190 mg/dL (50-130) H 04/30/19 14:20 HDL Cholesterol 105 mg/dL (40-59) H 04/30/19 14:20 Cholesterol/HDL Ratio 2.88 % 04/30/19 14:20 TSH 0.220 mlU/mL (0.270-4.200) L 05/11/19 13:00 Free T4 0.70 ng/dL (0.76-1.46) L 05/11/19 13:00 Hepatitis A IgM Ab Non-reactive (NonReactive) 04/30/19 14:20 Hep Bs Antigen Non-reactive (Negative) 04/30/19 14:20 Hep B Core IgM Ab Non-reactive (NonReactive) 04/30/19 14:20 Hepatitis C Antibody Non-reactive (NonReactive) 04/30/19 14:20 Taveras/IV: Voiding Method Diaper IV Catheter Type [Left Upper Mid-line arm] IV Catheter Type [Left Mid-line Subclavian] IV Catheter Type [Right Upper INT / Saline Lock arm] IV Catheter Type [Right Hand] INT / Saline Lock IV Catheter Type [Left Forearm INT / Saline Lock ] IV Catheter Type [Right VAS Cath Internal Jugular] Active Medications - Current Medications Current Medications: Generic Name Dose Route Start Last Admin Trade Name Freq PRN Reason Stop Dose Admin Acetaminophen 650 mg 04/30/19 17:44 05/05/19 15:22 Tylenol PO 650 mg Q4H PRN Administration Pain MILD(1-3)/Fever >100.5/HERRMANN Albuterol 2.5 mg 04/30/19 18:32 05/02/19 04:49 Proventil IH 2.5 mg Q3H PRN Administration Shortness Of Breath Albuterol/Ipratropium 1 ampul 05/11/19 14:00 05/14/19 20:35 Duoneb *Not For Prn Use* IH 1 ampul TIDRT KVNG Administration Amiodarone HCl 200 mg 05/12/19 10:00 05/14/19 09:38 Cordarone PO 200 mg QDAY KVNG Administration Lipase/Protease/Amylase 1 each 05/04/19 14:58 Pancrejessica Gould 10,500 Unit FEEDTUBE PRN PRN For Clogged Feeding Tube Arformoterol Tartrate 15 mcg 05/01/19 08:00 05/14/19 20:35 Brovana Nebu IH 15 mcg Q12HRT KVNG Administration Aspirin 81 mg 05/11/19 10:00 05/14/19 09:39 Baby Aspirin PO 81 mg QDAY KVNG Administration Budesonide 0.5 mg 05/03/19 11:00 05/14/19 20:35 Pulmicort IH 0.5 mg Q12HRT KVNG Administration Buspirone HCl 15 mg 05/04/19 10:00 05/14/19 22:29 Buspar PO 15 mg BID KVNG Administration Diltiazem HCl 30 mg 05/11/19 12:00 05/15/19 06:45 Cardizem PO 30 mg Q6HR KVNG Administration Famotidine 20 mg 05/10/19 10:00 05/14/19 09:38 Pepcid IV 20 mg DAILY KVNG Administration Fentanyl 50 mcg 05/11/19 10:00 05/14/19 22:30 Sublimaze IV 50 mcg Q2H PRN Administration AGITATION Hydralazine HCl 5 mg 05/01/19 22:47 05/14/19 18:09 Apresoline IV 5 mg Q6HR PRN Administration SBP > 160 AND/OR DBP > 100 Hydrophilic Ointment 1 applic 05/04/19 09:42 Vaseline Lip Therapy TP Q2HR PRN Dry Lips Sodium Chloride 100 mls @ 999 mls/hr 04/30/19 13:29 Nacl 0.9% IV ALBINO PRN Hypotension Propofol 1,000 mg in 100 mls @ 1.482 mls/hr 05/04/19 09:00 05/06/19 07:50 Diprivan 10 Mg/Ml IV 0 mcg/kg/min TITR KVNG 0 mls/hr Titration Protocol 5 MCG/KG/MIN Norepinephrine 4 mg in 250 mls @ 7.5 mls/hr 05/08/19 09:00 05/12/19 14:38 Levophed Drip 4 Mg/Ns 250 Ml IV 0 mcg/min TITR KVNG 0 mls/hr Titration Protocol 2 MCG/MIN Sodium Chloride 100 mls @ 999 mls/hr 05/14/19 13:53 Nacl 0.9% IV ALBINO PRN Hypotension Insulin Glargine 10 units 05/14/19 22:00 05/14/19 22:34 Lantus SUB-Q 10 units QHS KVNG Administration Insulin Human Lispro 0 unit 05/05/19 18:00 05/15/19 06:46 Humalog SUB-Q 6 unit Q6HR KVNG Administration Protocol Lorazepam 1 mg 05/02/19 11:08 05/12/19 15:46 Ativan IV 1 mg Q4H PRN Administration Anxiety Methylprednisolone Sodium Succinate 40 mg 05/14/19 12:00 05/15/19 06:46 Solu-Medrol IV 40 mg Q8H KVNG Administration Metoclopramide HCl 5 mg 05/10/19 14:00 05/14/19 14:30 Reglan IV 5 mg Q12H KVNG Administration Montelukast Sodium 10 mg 04/30/19 19:00 05/14/19 18:02 Singulair PO 10 mg QPM KVNG Administration Multi-Ingred Cream/Lotion/Oil/Oint 1 applic 05/04/19 09:42 Artificial Tears Ophth Oint OU Q4HR PRN Dry Eye(s) Pravastatin Sodium 40 mg 04/30/19 22:00 05/14/19 22:29 Pravachol PO 40 mg QHS KVNG Administration Simple Syrup 15 ml 05/04/19 14:58 Simple Syrup FEEDTUBE PRN PRN Hypoglycemia Simple Syrup 30 ml 05/04/19 14:58 Simple Syrup FEEDTUBE PRN PRN Hypoglycemia Sodium Bicarbonate 325 mg 05/04/19 14:58 Sodium Bicarbonate FEEDTUBE PRN PRN For Clogged Feeding Tube Sodium Chloride 10 ml 04/30/19 22:00 05/14/19 09:39 Sodium Chloride Flush Syringe 10 Ml IV 10 ml BID KVNG Administration Sodium Chloride 10 ml 04/30/19 17:44 05/01/19 03:55 Sodium Chloride Flush Syringe 10 Ml IV 10 ml PRN PRN Administration LINE FLUSH Nutrition/Malnutrition Assess - Dietary Evaluation Nutrition/Malnutrition Findings: Nutrition Notes Start: 05/04/19 11:09 Freq: Status: Active Protocol: Document 05/14/19 14:49 LM (Rec: 05/14/19 14:53 LM [id number]) Nutrition Notes Initial or Follow up Reassessment Current Diet Nepro 1.8 at 30ml/hr Labs/Tests BUN 79 Cr 5.7 BG 243 Pertinent Medications Reviewed Height 5 ft Weight 46.8 kg Riley Body Weight (kg) 45.45 BMI 20.1 Subjective/Other Information Per RN, pt was restarted last night via PEG and is running at 20 ml/hr and tolerating. RN stated he will increase to 30 ml/hr today. 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 Yes Is Patient Ambulatory and/or Out of Bed No REE-([facility]-confined to bed) 1062.132 Calculation Used for Recommendations [facility] Additional Notes Protein: 59-98g (1.2-2g/kg) Fluid: per MD Nutrition Intervention Change Diet Order: TF Nutrition Support: Nepro 1.8 at 30 ml/hr Flush 130 ml q4h Kcal 1,296 Protein (gm) 58 Fluid (mL) 523 Goal #1 Meet at least 80% of kcal and protein needs via TF Anticipated Discharge Needs: Unable to determine at this time Follow-Up By: 05/21/19 Additional Comments F/U for TF tolerance
[2019-05-15] MEDS: LORazepam 2 MG/ML VIAL IV PRN (08:10)
[2019-05-15 08:23] LABS: Calcium 9.3 mg/dL (8.4-10.2)
[2019-05-15 08:34] LABS: Monocytes % (Auto) 0.8 % (0.0-7.3)
[2019-05-15 08:52] LABS: Hematocrit 28.9 % (30.3-42.9); Hemoglobin 9.2 gm/dl (10.1-14.3); Mean Corpuscular HGB Conc 32 % (30-34); Mean Corpuscular Volume 90 fl (79-97); Platelet Count 91 K/mm3 (140-440); Red Blood Count 3.22 M/mm3 (3.65-5.03); Red Cell Distribution Width 16.6 % (13.2-15.2)
[2019-05-15 08:53] LABS: Basophils % (Auto) 0.1 % (0.0-1.8); Lymphocytes # (Auto) 0.1 K/mm3 (1.2-5.4); Lymphocytes % (Auto) 0.4 % (13.4-35.0); Monocytes # (Auto) 0.1 K/mm3 (0.0-0.8)
[2019-05-15] MEDS: AMIODARONE 200 MG TAB PO SCH (09:50)
[2019-05-15] MEDS: ASPIRIN 81 MG TAB CHEW PO SCH (09:50)
[2019-05-15] MEDS: busPIRone 10 MG TAB PO SCH ×2 (09:50→23:00)
[2019-05-15] MEDS: FAMOTIDINE 20 MG/2 ML INJ IV SCH (09:50)
[2019-05-15] MEDS: fentaNYL 100 MCG/2 ML INJ IV PRN ×3 (10:18→18:03)
--- NOTE | 2019-05-15 12:16 | Progress Note ---
Assessment and Plan 78 y/o female with acute on chronic respiratory failure secondary to volume overload, resolved. 1. Continue steroids at 40q8, will start to wean this dose on Friday. 2. Diprovan now off, only PRN meds available if needed. 3. Continue HD per renal 4. Started Buspar prior to intubation, will continue. Patient is not on Klonopin 5. Midline placement, done 6. NG out and peg in, working well. 7. LTACH pending. Patient has been in intensive care for 15 days. Spoke with CM. 8. Will defer to cards in regards to increasing meds for BP and Heart rate CCT 31 minutes. Subjective Date of service: 05/15/19 Principal diagnosis: Acute resp failure,COPd exacerbation Interval history: No acute events. HR and BP are both elevated. Cardiology following but have not seen yet. Reviewed home medications list. She is currently on Amio and q6 cardizem therapy here. She takes an entirely different regimen at home including Imdur and amolodipine. Sat is 100% on FiO2 of 40 and eight of peep. Objective Vital Signs - 12hr 05/15/19 05/15/19 05/15/19 00:16 00:30 00:46 Temperature Pulse Rate 126 H 118 H 121 H Pulse Rate [ From Monitor] Pulse Rate [ None] Respiratory 29 H 22 29 H Rate Respiratory Rate [denies] Blood Pressure 201/99 201/99 201/99 O2 Sat by Pulse 100 100 100 Oximetry 05/15/19 05/15/19 05/15/19 00:48 01:00 01:16 Temperature Pulse Rate 123 H 116 H 124 H Pulse Rate [ From Monitor] Pulse Rate [ None] Respiratory 29 H 31 H Rate Respiratory Rate [denies] Blood Pressure 201/99 193/79 193/79 O2 Sat by Pulse 100 99 Oximetry 05/15/19 05/15/19 05/15/19 01:30 01:46 02:00 Temperature Pulse Rate 121 H 124 H 124 H Pulse Rate [ From Monitor] Pulse Rate [ None] Respiratory 27 H 27 H 33 H Rate Respiratory Rate [denies] Blood Pressure 193/79 193/79 204/81 O2 Sat by Pulse 100 100 100 Oximetry 05/15/19 05/15/19 05/15/19 02:16 02:30 02:46 Temperature Pulse Rate 118 H 133 H 117 H Pulse Rate [ From Monitor] Pulse Rate [ None] Respiratory 32 H 31 H 29 H Rate Respiratory Rate [denies] Blood Pressure 204/81 204/81 177/62 O2 Sat by Pulse 100 100 100 Oximetry 05/15/19 05/15/19 05/15/19 03:00 03:16 03:30 Temperature Pulse Rate 125 H 109 H 112 H Pulse Rate [ From Monitor] Pulse Rate [ None] Respiratory 29 H 25 H 25 H Rate Respiratory Rate [denies] Blood Pressure 177/62 184/55 184/55 O2 Sat by Pulse 100 100 100 Oximetry 05/15/19 05/15/19 05/15/19 03:38 03:46 04:00 Temperature 99.2 F Pulse Rate 106 H 114 H Pulse Rate [ 117 H From Monitor] Pulse Rate [ None] Respiratory 24 30 H Rate Respiratory Rate [denies] Blood Pressure 184/55 174/78 O2 Sat by Pulse 100 100 Oximetry 05/15/19 05/15/19 05/15/19 04:16 04:30 04:44 Temperature Pulse Rate 110 H 103 H 106 H Pulse Rate [ From Monitor] Pulse Rate [ None] Respiratory 24 23 Rate Respiratory Rate [denies] Blood Pressure 184/55 184/55 174/78 O2 Sat by Pulse 100 100 100 Oximetry 05/15/19 05/15/19 05/15/19 04:46 05:00 05:16 Temperature Pulse Rate 118 H 117 H 117 H Pulse Rate [ From Monitor] Pulse Rate [ None] Respiratory 21 28 H 29 H Rate Respiratory Rate [denies] Blood Pressure 184/55 184/55 174/78 O2 Sat by Pulse 100 100 99 Oximetry 05/15/19 05/15/19 05/15/19 05:30 05:46 06:00 Temperature Pulse Rate 125 H 102 H 99 H Pulse Rate [ From Monitor] Pulse Rate [ None] Respiratory 29 H 24 24 Rate Respiratory Rate [denies] Blood Pressure 174/78 199/104 199/104 O2 Sat by Pulse 99 99 100 Oximetry 05/15/19 05/15/19 05/15/19 06:16 06:30 06:45 Temperature Pulse Rate 102 H 98 H 111 H Pulse Rate [ From Monitor] Pulse Rate [ None] Respiratory 24 22 Rate Respiratory Rate [denies] Blood Pressure 118/43 118/43 118/43 O2 Sat by Pulse 100 100 Oximetry 05/15/19 05/15/19 05/15/19 06:46 07:00 07:30 Temperature Pulse Rate 115 H 115 H 118 H Pulse Rate [ From Monitor] Pulse Rate [ None] Respiratory 24 29 H 25 H Rate Respiratory Rate [denies] Blood Pressure 118/43 118/43 217/113 O2 Sat by Pulse 100 100 100 Oximetry 05/15/19 05/15/19 05/15/19 08:00 08:30 09:00 Temperature 98.8 F Pulse Rate 105 H 116 H 99 H Pulse Rate [ From Monitor] Pulse Rate [ 111 H None] Respiratory 25 H 25 H 25 H Rate Respiratory Rate [denies] Blood Pressure 160/76 179/111 179/111 O2 Sat by Pulse 100 100 100 Oximetry 05/15/19 05/15/19 09:30 10:00 Temperature Pulse Rate 117 H 111 H Pulse Rate [ From Monitor] Pulse Rate [ None] Respiratory 29 H 30 H Rate Respiratory 30 H Rate [denies] Blood Pressure 160/76 160/76 O2 Sat by Pulse 100 100 Oximetry Constitutional: other (Sedated and orally intubated) Eyes: non-icteric ENT: other (orally intubated and sedated.) Neck: supple Effort: mildly labored Ascultation: Bilateral: diminished breath sounds, rales, rhonchi Percussion: Bilateral: not dull Cardiovascular: other (sinus tach) Gastrointestinal: normoactive bowel sounds Neurologic: unable to assess CBC and BMP: 05/15/19 07:15 05/15/19 07:15 ABG, PT/INR, D-dimer: ABG ABG pH 7.388 pH Units (7.350-7.450) 05/12/19 04:36 ABG pCO2 38.5 mm Hg 05/12/19 04:36 ABG pO2 79.4 mm Hg (80.0-90.0) L 05/12/19 04:36 ABG O2 Saturation 96.0 % (95.0-99.0) 05/12/19 04:36 PT/INR, D-dimer PT 14.7 Sec. (12.2-14.9) 05/13/19 12:01 INR 1.13 (0.87-1.13) 05/13/19 12:01 Abnormal lab findings: Abnormal Labs 04/30/19 04/30/19 04/30/19 10:12 11:32 11:32 WBC RBC Hgb Hct RDW 17.1 H Plt Count 84 L Lymph % (Auto) 10.9 L [place] % (Auto) 7.4 H Lymph # 0.8 L Seg Neutrophils % 80.6 H Seg Neuts % (Manual) Lymphocytes % (Manual) Nucleated RBC % Seg Neutrophils # Seg Neutrophils # Man Lymphocytes # (Manual) Monocytes # (Manual) PT 28.3 H INR 2.59 H APTT ABG pH 7.347 L ABG pO2 221.9 H ABG HCO3 ABG O2 Saturation 99.3 H ABG Base Excess -2.2 L ABG Hemoglobin Oxyhemoglobin Sodium Potassium Chloride Carbon Dioxide BUN Creatinine Glucose POC Glucose Phosphorus Magnesium Troponin T NT-Pro-B Natriuret Pep Triglycerides Cholesterol LDL Cholesterol Direct HDL Cholesterol TSH Free T4 04/30/19 04/30/19 04/30/19 14:20 15:23 18:05 WBC RBC Hgb Hct RDW Plt Count Lymph % (Auto) [place] % (Auto) Lymph # Seg Neutrophils % Seg Neuts % (Manual) Lymphocytes % (Manual) Nucleated RBC % Seg Neutrophils # Seg Neutrophils # Man Lymphocytes # (Manual) Monocytes # (Manual) PT INR APTT 37.2 H ABG pH ABG pO2 79.2 L ABG HCO3 ABG O2 Saturation ABG Base Excess ABG Hemoglobin Oxyhemoglobin 94.4 L Sodium 146 H Potassium 3.2 L Chloride Carbon Dioxide BUN 39 H Creatinine 2.6 H Glucose POC Glucose Phosphorus Magnesium Troponin T 0.117 H* NT-Pro-B Natriuret Pep 75905 H Triglycerides 178 H Cholesterol 303 H LDL Cholesterol Direct 190 H HDL Cholesterol 105 H TSH Free T4 04/30/19 05/01/19 05/01/19 22:20 00:48 04:46 WBC RBC Hgb Hct RDW Plt Count Lymph % (Auto) [place] % (Auto) Lymph # Seg Neutrophils % Seg Neuts % (Manual) Lymphocytes % (Manual) Nucleated RBC % Seg Neutrophils # Seg Neutrophils # Man Lymphocytes # (Manual) Monocytes # (Manual) PT INR APTT ABG pH ABG pO2 98.3 H ABG HCO3 ABG O2 Saturation ABG Base Excess ABG Hemoglobin Oxyhemoglobin Sodium Potassium Chloride Carbon Dioxide BUN Creatinine Glucose POC Glucose 108 H 142 H Phosphorus Magnesium Troponin T NT-Pro-B Natriuret Pep Triglycerides Cholesterol LDL Cholesterol Direct HDL Cholesterol TSH Free T4 05/01/19 05/01/19 05/01/19 12:43 12:43 13:27 WBC RBC Hgb Hct RDW 16.4 H Plt Count 132 L Lymph % (Auto) [place] % (Auto) Lymph # Seg Neutrophils % Seg Neuts % (Manual) 95.0 H Lymphocytes % (Manual) 3.0 L Nucleated RBC % Seg Neutrophils # Seg Neutrophils # Man Lymphocytes # (Manual) 0.2 L Monocytes # (Manual) PT INR APTT ABG pH ABG pO2 ABG HCO3 ABG O2 Saturation ABG Base Excess ABG Hemoglobin Oxyhemoglobin Sodium Potassium Chloride 95.1 L Carbon Dioxide 21 L BUN 29 H Creatinine 3.2 H Glucose 137 H POC Glucose 114 H Phosphorus Magnesium Troponin T NT-Pro-B Natriuret Pep Triglycerides Cholesterol LDL Cholesterol Direct HDL Cholesterol TSH Free T4 05/01/19 05/02/19 05/02/19 18:41 00:01 05:40 WBC RBC Hgb Hct RDW Plt Count Lymph % (Auto) [place] % (Auto) Lymph # Seg Neutrophils % Seg Neuts % (Manual) Lymphocytes % (Manual) Nucleated RBC % Seg Neutrophils # Seg Neutrophils # Man Lymphocytes # (Manual) Monocytes # (Manual) PT INR APTT ABG pH ABG pO2 ABG HCO3 ABG O2 Saturation ABG Base Excess ABG Hemoglobin Oxyhemoglobin Sodium Potassium Chloride Carbon Dioxide BUN Creatinine Glucose POC Glucose 127 H 110 H 135 H Phosphorus Magnesium Troponin T NT-Pro-B Natriuret Pep Triglycerides Cholesterol LDL Cholesterol Direct HDL Cholesterol TSH Free T4 05/02/19 05/02/19 05/03/19 13:06 19:14 09:44 WBC RBC Hgb Hct RDW 17.1 H Plt Count Lymph % (Auto) [place] % (Auto) Lymph # Seg Neutrophils % Seg Neuts % (Manual) Lymphocytes % (Manual) Nucleated RBC % Seg Neutrophils # Seg Neutrophils # Man Lymphocytes # (Manual) Monocytes # (Manual) PT INR APTT ABG pH ABG pO2 ABG HCO3 ABG O2 Saturation ABG Base Excess ABG Hemoglobin Oxyhemoglobin Sodium Potassium Chloride Carbon Dioxide BUN Creatinine Glucose POC Glucose 152 H 117 H Phosphorus Magnesium Troponin T NT-Pro-B Natriuret Pep Triglycerides Cholesterol LDL Cholesterol Direct HDL Cholesterol TSH Free T4 05/03/19 05/03/19 05/03/19 09:44 10:13 18:45 WBC RBC Hgb Hct RDW Plt Count Lymph % (Auto) [place] % (Auto) Lymph # Seg Neutrophils % Seg Neuts % (Manual) Lymphocytes % (Manual) Nucleated RBC % Seg Neutrophils # Seg Neutrophils # Man Lymphocytes # (Manual) Monocytes # (Manual) PT INR APTT ABG pH 7.166 L* ABG pO2 ABG HCO3 ABG O2 Saturation 94.5 L ABG Base Excess -8.8 L ABG Hemoglobin 11.6 L Oxyhemoglobin 92.4 L Sodium Potassium 6.2 H* D Chloride 93.2 L Carbon Dioxide 13 L D BUN 93 H Creatinine 7.2 H D Glucose 138 H POC Glucose 128 H Phosphorus 12.90 H Magnesium 2.70 H Troponin T NT-Pro-B Natriuret Pep Triglycerides Cholesterol LDL Cholesterol Direct HDL Cholesterol TSH Free T4 05/03/19 05/04/19 05/04/19 19:40 01:04 03:51 WBC 11.2 H RBC Hgb Hct RDW 16.6 H Plt Count Lymph % (Auto) [place] % (Auto) Lymph # Seg Neutrophils % Seg Neuts % (Manual) Lymphocytes % (Manual) Nucleated RBC % Seg Neutrophils # Seg Neutrophils # Man Lymphocytes # (Manual) Monocytes # (Manual) PT INR APTT ABG pH ABG pO2 ABG HCO3 ABG O2 Saturation ABG Base Excess ABG Hemoglobin Oxyhemoglobin Sodium Potassium Chloride 92.7 L Carbon Dioxide BUN 26 H Creatinine 3.2 H D Glucose 129 H POC Glucose 134 H Phosphorus Magnesium Troponin T NT-Pro-B Natriuret Pep Triglycerides Cholesterol LDL Cholesterol Direct HDL Cholesterol TSH Free T4 05/04/19 05/04/19 05/04/19 03:51 06:05 12:33 WBC RBC Hgb Hct RDW Plt Count Lymph % (Auto) [place] % (Auto) Lymph # Seg Neutrophils % Seg Neuts % (Manual) Lymphocytes % (Manual) Nucleated RBC % Seg Neutrophils # Seg Neutrophils # Man Lymphocytes # (Manual) Monocytes # (Manual) PT INR APTT ABG pH ABG pO2 ABG HCO3 ABG O2 Saturation ABG Base Excess ABG Hemoglobin Oxyhemoglobin Sodium Potassium Chloride 92.5 L Carbon Dioxide 19 L BUN 39 H Creatinine 4.3 H Glucose 148 H POC Glucose 138 H 190 H Phosphorus Magnesium Troponin T NT-Pro-B Natriuret Pep Triglycerides Cholesterol LDL Cholesterol Direct HDL Cholesterol TSH Free T4 05/04/19 05/04/19 05/04/19 18:25 23:57 Unknown WBC RBC Hgb Hct RDW Plt Count Lymph % (Auto) [place] % (Auto) Lymph # Seg Neutrophils % Seg Neuts % (Manual) Lymphocytes % (Manual) Nucleated RBC % Seg Neutrophils # Seg Neutrophils # Man Lymphocytes # (Manual) Monocytes # (Manual) PT INR APTT ABG pH ABG pO2 ABG HCO3 ABG O2 Saturation ABG Base Excess -3.4 L ABG Hemoglobin Oxyhemoglobin 94.5 L Sodium Potassium Chloride Carbon Dioxide BUN Creatinine Glucose POC Glucose 190 H 119 H Phosphorus Magnesium Troponin T NT-Pro-B Natriuret Pep Triglycerides Cholesterol LDL Cholesterol Direct HDL Cholesterol TSH Free T4 05/05/19 05/05/19 05/05/19 03:45 06:09 12:07 WBC RBC Hgb Hct RDW Plt Count Lymph % (Auto) [place] % (Auto) Lymph # Seg Neutrophils % Seg Neuts % (Manual) Lymphocytes % (Manual) Nucleated RBC % Seg Neutrophils # Seg Neutrophils # Man Lymphocytes # (Manual) Monocytes # (Manual) PT INR APTT ABG pH 7.456 H ABG pO2 64.8 L ABG HCO3 ABG O2 Saturation 93.6 L ABG Base Excess ABG Hemoglobin Oxyhemoglobin 91.4 L Sodium Potassium Chloride Carbon Dioxide BUN Creatinine Glucose POC Glucose 173 H 260 H Phosphorus Magnesium Troponin T NT-Pro-B Natriuret Pep Triglycerides Cholesterol LDL Cholesterol Direct HDL Cholesterol TSH Free T4 05/05/19 05/06/19 05/06/19 18:34 00:49 04:20 WBC 12.8 H RBC Hgb Hct RDW 16.9 H Plt Count Lymph % (Auto) [place] % (Auto) Lymph # Seg Neutrophils % Seg Neuts % (Manual) 93.0 H Lymphocytes % (Manual) 2.0 L Nucleated RBC % 1.0 H Seg Neutrophils # Seg Neutrophils # Man 11.9 H Lymphocytes # (Manual) 0.3 L Monocytes # (Manual) PT INR APTT ABG pH ABG pO2 ABG HCO3 ABG O2 Saturation ABG Base Excess ABG Hemoglobin Oxyhemoglobin Sodium Potassium Chloride Carbon Dioxide BUN Creatinine Glucose POC Glucose 334 H 230 H Phosphorus Magnesium Troponin T NT-Pro-B Natriuret Pep Triglycerides Cholesterol LDL Cholesterol Direct HDL Cholesterol TSH Free T4 05/06/19 05/06/19 05/06/19 04:20 04:20 05:39 WBC RBC Hgb Hct RDW Plt Count Lymph % (Auto) [place] % (Auto) Lymph # Seg Neutrophils % Seg Neuts % (Manual) Lymphocytes % (Manual) Nucleated RBC % Seg Neutrophils # Seg Neutrophils # Man Lymphocytes # (Manual) Monocytes # (Manual) PT INR APTT ABG pH ABG pO2 62.9 L ABG HCO3 ABG O2 Saturation 92.5 L ABG Base Excess ABG Hemoglobin Oxyhemoglobin 90.5 L Sodium Potassium Chloride 95.1 L Carbon Dioxide BUN 40 H Creatinine 3.6 H Glucose 267 H POC Glucose Phosphorus Magnesium Troponin T NT-Pro-B Natriuret Pep Triglycerides 380 H Cholesterol LDL Cholesterol Direct HDL Cholesterol TSH Free T4 05/06/19 05/06/19 05/06/19 06:08 11:15 12:42 WBC RBC Hgb Hct RDW Plt Count Lymph % (Auto) [place] % (Auto) Lymph # Seg Neutrophils % Seg Neuts % (Manual) Lymphocytes % (Manual) Nucleated RBC % Seg Neutrophils # Seg Neutrophils # Man Lymphocytes # (Manual) Monocytes # (Manual) PT INR APTT ABG pH 7.344 L ABG pO2 56.8 L ABG HCO3 ABG O2 Saturation 85.5 L ABG Base Excess ABG Hemoglobin Oxyhemoglobin 83.8 L Sodium Potassium Chloride Carbon Dioxide BUN Creatinine Glucose POC Glucose 325 H 168 H Phosphorus Magnesium Troponin T NT-Pro-B Natriuret Pep Triglycerides Cholesterol LDL Cholesterol Direct HDL Cholesterol TSH Free T4 05/06/19 05/07/19 05/07/19 17:30 00:33 05:25 WBC RBC Hgb Hct RDW Plt Count Lymph % (Auto) [place] % (Auto) Lymph # Seg Neutrophils % Seg Neuts % (Manual) Lymphocytes % (Manual) Nucleated RBC % Seg Neutrophils # Seg Neutrophils # Man Lymphocytes # (Manual) Monocytes # (Manual) PT INR APTT ABG pH ABG pO2 51.8 L ABG HCO3 ABG O2 Saturation 83.6 L ABG Base Excess -3.3 L ABG Hemoglobin Oxyhemoglobin 81.7 L Sodium Potassium Chloride Carbon Dioxide BUN Creatinine Glucose POC Glucose 172 H 131 H Phosphorus Magnesium Troponin T NT-Pro-B Natriuret Pep Triglycerides Cholesterol LDL Cholesterol Direct HDL Cholesterol TSH Free T4 05/07/19 05/07/19 05/07/19 06:31 13:21 15:15 WBC RBC Hgb Hct RDW Plt Count Lymph % (Auto) [place] % (Auto) Lymph # Seg Neutrophils % Seg Neuts % (Manual) Lymphocytes % (Manual) Nucleated RBC % Seg Neutrophils # Seg Neutrophils # Man Lymphocytes # (Manual) Monocytes # (Manual) PT INR APTT ABG pH 7.317 L ABG pO2 64.0 L ABG HCO3 ABG O2 Saturation 89.7 L ABG Base Excess ABG Hemoglobin Oxyhemoglobin 87.8 L Sodium Potassium Chloride Carbon Dioxide BUN Creatinine Glucose POC Glucose 223 H 200 H Phosphorus Magnesium Troponin T NT-Pro-B Natriuret Pep Triglycerides Cholesterol LDL Cholesterol Direct HDL Cholesterol TSH Free T4 05/07/19 05/07/19 05/07/19 18:40 19:35 21:39 WBC RBC Hgb Hct RDW Plt Count Lymph % (Auto) [place] % (Auto) Lymph # Seg Neutrophils % Seg Neuts % (Manual) Lymphocytes % (Manual) Nucleated RBC % Seg Neutrophils # Seg Neutrophils # Man Lymphocytes # (Manual) Monocytes # (Manual) PT INR APTT ABG pH ABG pO2 ABG HCO3 ABG O2 Saturation ABG Base Excess ABG Hemoglobin Oxyhemoglobin Sodium Potassium Chloride Carbon Dioxide BUN Creatinine Glucose POC Glucose 142 H 138 H Phosphorus Magnesium 1.60 L Troponin T NT-Pro-B Natriuret Pep Triglycerides Cholesterol LDL Cholesterol Direct HDL Cholesterol TSH Free T4 05/07/19 05/08/19 05/08/19 23:49 09:32 12:31 WBC RBC Hgb Hct RDW Plt Count Lymph % (Auto) [place] % (Auto) Lymph # Seg Neutrophils % Seg Neuts % (Manual) Lymphocytes % (Manual) Nucleated RBC % Seg Neutrophils # Seg Neutrophils # Man Lymphocytes # (Manual) Monocytes # (Manual) PT INR APTT ABG pH ABG pO2 65.1 L ABG HCO3 18.7 L ABG O2 Saturation 91.9 L ABG Base Excess -5.8 L ABG Hemoglobin Oxyhemoglobin 90.1 L Sodium Potassium Chloride Carbon Dioxide BUN Creatinine Glucose POC Glucose 195 H 298 H Phosphorus Magnesium Troponin T NT-Pro-B Natriuret Pep Triglycerides Cholesterol LDL Cholesterol Direct HDL Cholesterol TSH Free T4 05/08/19 05/08/19 05/08/19 13:54 14:44 14:44 WBC 15.3 H RBC Hgb Hct RDW 16.9 H Plt Count Lymph % (Auto) [place] % (Auto) Lymph # Seg Neutrophils % Seg Neuts % (Manual) Lymphocytes % (Manual) Nucleated RBC % Seg Neutrophils # Seg Neutrophils # Man Lymphocytes # (Manual) Monocytes # (Manual) PT INR APTT ABG pH 7.327 L ABG pO2 67.2 L ABG HCO3 18.4 L ABG O2 Saturation 91.6 L ABG Base Excess -6.8 L ABG Hemoglobin Oxyhemoglobin 89.6 L Sodium Potassium Chloride 91.3 L Carbon Dioxide 17 L BUN 64 H Creatinine 5.0 H Glucose 337 H POC Glucose Phosphorus Magnesium Troponin T NT-Pro-B Natriuret Pep Triglycerides Cholesterol LDL Cholesterol Direct HDL Cholesterol TSH Free T4 05/08/19 05/08/19 05/09/19 17:14 23:49 05:22 WBC RBC Hgb Hct RDW Plt Count Lymph % (Auto) [place] % (Auto) Lymph # Seg Neutrophils % Seg Neuts % (Manual) Lymphocytes % (Manual) Nucleated RBC % Seg Neutrophils # Seg Neutrophils # Man Lymphocytes # (Manual) Monocytes # (Manual) PT INR APTT ABG pH ABG pO2 ABG HCO3 ABG O2 Saturation ABG Base Excess ABG Hemoglobin Oxyhemoglobin Sodium Potassium Chloride Carbon Dioxide BUN Creatinine Glucose POC Glucose 396 H 322 H 239 H Phosphorus Magnesium Troponin T NT-Pro-B Natriuret Pep Triglycerides Cholesterol LDL Cholesterol Direct HDL Cholesterol TSH Free T4 05/09/19 05/09/19 05/09/19 07:14 07:14 11:39 WBC 13.6 H RBC Hgb Hct RDW 17.1 H Plt Count Lymph % (Auto) [place] % (Auto) Lymph # Seg Neutrophils % Seg Neuts % (Manual) 91.0 H Lymphocytes % (Manual) 2.0 L Nucleated RBC % 4.0 H Seg Neutrophils # Seg Neutrophils # Man 12.4 H Lymphocytes # (Manual) 0.3 L Monocytes # (Manual) PT INR APTT ABG pH ABG pO2 ABG HCO3 ABG O2 Saturation ABG Base Excess ABG Hemoglobin Oxyhemoglobin Sodium 135 L Potassium 5.3 H Chloride 93.5 L Carbon Dioxide 14 L BUN 85 H Creatinine 6.1 H Glucose 242 H POC Glucose 273 H Phosphorus Magnesium Troponin T NT-Pro-B Natriuret Pep Triglycerides Cholesterol LDL Cholesterol Direct HDL Cholesterol TSH Free T4 05/09/19 05/09/19 05/10/19 17:29 21:45 00:11 WBC RBC Hgb Hct RDW Plt Count Lymph % (Auto) [place] % (Auto) Lymph # Seg Neutrophils % Seg Neuts % (Manual) Lymphocytes % (Manual) Nucleated RBC % Seg Neutrophils # Seg Neutrophils # Man Lymphocytes # (Manual) Monocytes # (Manual) PT INR APTT ABG pH ABG pO2 ABG HCO3 ABG O2 Saturation ABG Base Excess ABG Hemoglobin Oxyhemoglobin Sodium Potassium Chloride Carbon Dioxide BUN Creatinine Glucose POC Glucose 190 H 190 H 247 H Phosphorus Magnesium Troponin T NT-Pro-B Natriuret Pep Triglycerides Cholesterol LDL Cholesterol Direct HDL Cholesterol TSH Free T4 05/10/19 05/10/19 05/10/19 05:14 05:14 05:42 WBC 21.0 H RBC Hgb Hct RDW 16.8 H Plt Count Lymph % (Auto) [place] % (Auto) Lymph # Seg Neutrophils % Seg Neuts % (Manual) 91.0 H Lymphocytes % (Manual) 2.0 L Nucleated RBC % 7.0 H Seg Neutrophils # Seg Neutrophils # Man 19.1 H Lymphocytes # (Manual) 0.4 L Monocytes # (Manual) 1.1 H PT INR APTT ABG pH ABG pO2 ABG HCO3 ABG O2 Saturation ABG Base Excess ABG Hemoglobin Oxyhemoglobin Sodium Potassium Chloride 92.2 L Carbon Dioxide 19 L BUN 111 H Creatinine 7.7 H Glucose 193 H POC Glucose 208 H Phosphorus Magnesium Troponin T NT-Pro-B Natriuret Pep Triglycerides Cholesterol LDL Cholesterol Direct HDL Cholesterol TSH Free T4 05/10/19 05/10/19 05/11/19 12:28 17:45 00:26 WBC RBC Hgb Hct RDW Plt Count Lymph % (Auto) [place] % (Auto) Lymph # Seg Neutrophils % Seg Neuts % (Manual) Lymphocytes % (Manual) Nucleated RBC % Seg Neutrophils # Seg Neutrophils # Man Lymphocytes # (Manual) Monocytes # (Manual) PT INR APTT ABG pH ABG pO2 ABG HCO3 ABG O2 Saturation ABG Base Excess ABG Hemoglobin Oxyhemoglobin Sodium Potassium Chloride Carbon Dioxide BUN Creatinine Glucose POC Glucose 275 H 214 H 244 H Phosphorus Magnesium Troponin T NT-Pro-B Natriuret Pep Triglycerides Cholesterol LDL Cholesterol Direct HDL Cholesterol TSH Free T4 05/11/19 05/11/19 05/11/19 04:08 04:23 04:23 WBC 20.5 H RBC Hgb Hct RDW 17.0 H Plt Count 134 L Lymph % (Auto) [place] % (Auto) Lymph # Seg Neutrophils % Seg Neuts % (Manual) 92.0 H Lymphocytes % (Manual) 1.0 L Nucleated RBC % 3.0 H Seg Neutrophils # Seg Neutrophils # Man 18.9 H Lymphocytes # (Manual) 0.2 L Monocytes # (Manual) 1.0 H PT INR APTT ABG pH ABG pO2 57.9 L ABG HCO3 ABG O2 Saturation 89.9 L ABG Base Excess ABG Hemoglobin 10.3 L Oxyhemoglobin 87.9 L Sodium Potassium Chloride 90.9 L Carbon Dioxide BUN 50 H Creatinine 4.2 H Glucose 175 H POC Glucose Phosphorus Magnesium Troponin T NT-Pro-B Natriuret Pep Triglycerides Cholesterol LDL Cholesterol Direct HDL Cholesterol TSH Free T4 05/11/19 05/11/19 05/11/19 05:36 12:00 13:00 WBC RBC Hgb Hct RDW Plt Count Lymph % (Auto) [place] % (Auto) Lymph # Seg Neutrophils % Seg Neuts % (Manual) Lymphocytes % (Manual) Nucleated RBC % Seg Neutrophils # Seg Neutrophils # Man Lymphocytes # (Manual) Monocytes # (Manual) PT INR APTT ABG pH ABG pO2 ABG HCO3 ABG O2 Saturation ABG Base Excess ABG Hemoglobin Oxyhemoglobin Sodium Potassium Chloride Carbon Dioxide BUN Creatinine Glucose POC Glucose 147 H 318 H Phosphorus Magnesium 1.50 L Troponin T NT-Pro-B Natriuret Pep Triglycerides Cholesterol LDL Cholesterol Direct HDL Cholesterol TSH Free T4 05/11/19 05/11/19 05/11/19 13:00 13:00 18:00 WBC RBC Hgb Hct RDW Plt Count Lymph % (Auto) [place] % (Auto) Lymph # Seg Neutrophils % Seg Neuts % (Manual) Lymphocytes % (Manual) Nucleated RBC % Seg Neutrophils # Seg Neutrophils # Man Lymphocytes # (Manual) Monocytes # (Manual) PT INR APTT ABG pH ABG pO2 ABG HCO3 ABG O2 Saturation ABG Base Excess ABG Hemoglobin Oxyhemoglobin Sodium Potassium Chloride Carbon Dioxide BUN Creatinine Glucose POC Glucose 237 H Phosphorus Magnesium Troponin T NT-Pro-B Natriuret Pep Triglycerides Cholesterol LDL Cholesterol Direct HDL Cholesterol TSH 0.220 L Free T4 0.70 L 05/11/19 05/12/19 05/12/19 23:49 03:50 04:35 WBC 17.5 H RBC Hgb Hct RDW 17.0 H Plt Count 119 L Lymph % (Auto) [place] % (Auto) Lymph # Seg Neutrophils % Seg Neuts % (Manual) 98.0 H Lymphocytes % (Manual) 1.0 L Nucleated RBC % Seg Neutrophils # Seg Neutrophils # Man 17.2 H Lymphocytes # (Manual) 0.2 L Monocytes # (Manual) PT INR APTT ABG pH ABG pO2 ABG HCO3 ABG O2 Saturation ABG Base Excess ABG Hemoglobin Oxyhemoglobin Sodium Potassium Chloride Carbon Dioxide BUN Creatinine Glucose POC Glucose 117 H 225 H Phosphorus Magnesium Troponin T NT-Pro-B Natriuret Pep Triglycerides Cholesterol LDL Cholesterol Direct HDL Cholesterol TSH Free T4 05/12/19 05/12/19 05/12/19 04:35 04:36 05:51 WBC RBC Hgb Hct RDW Plt Count Lymph % (Auto) [place] % (Auto) Lymph # Seg Neutrophils % Seg Neuts % (Manual) Lymphocytes % (Manual) Nucleated RBC % Seg Neutrophils # Seg Neutrophils # Man Lymphocytes # (Manual) Monocytes # (Manual) PT INR APTT ABG pH ABG pO2 79.4 L ABG HCO3 ABG O2 Saturation ABG Base Excess ABG Hemoglobin 10.9 L Oxyhemoglobin 94.0 L Sodium 130 L D Potassium 5.9 H D Chloride 85.0 L Carbon Dioxide 19 L BUN 81 H Creatinine 5.7 H Glucose 228 H POC Glucose 274 H Phosphorus Magnesium Troponin T NT-Pro-B Natriuret Pep Triglycerides Cholesterol LDL Cholesterol Direct HDL Cholesterol TSH Free T4 05/12/19 05/12/19 05/12/19 11:30 18:11 23:53 WBC RBC Hgb Hct RDW Plt Count Lymph % (Auto) [place] % (Auto) Lymph # Seg Neutrophils % Seg Neuts % (Manual) Lymphocytes % (Manual) Nucleated RBC % Seg Neutrophils # Seg Neutrophils # Man Lymphocytes # (Manual) Monocytes # (Manual) PT INR APTT ABG pH ABG pO2 ABG HCO3 ABG O2 Saturation ABG Base Excess ABG Hemoglobin Oxyhemoglobin Sodium Potassium Chloride Carbon Dioxide BUN Creatinine Glucose POC Glucose 146 H 307 H 266 H Phosphorus Magnesium Troponin T NT-Pro-B Natriuret Pep Triglycerides Cholesterol LDL Cholesterol Direct HDL Cholesterol TSH Free T4 05/13/19 05/13/19 05/13/19 04:30 04:30 05:24 WBC 17.4 H RBC 3.48 L Hgb 10.0 L Hct RDW 17.0 H Plt Count 122 L Lymph % (Auto) [place] % (Auto) Lymph # Seg Neutrophils % Seg Neuts % (Manual) 97.0 H Lymphocytes % (Manual) 1.0 L Nucleated RBC % Seg Neutrophils # Seg Neutrophils # Man 16.9 H Lymphocytes # (Manual) 0.2 L Monocytes # (Manual) PT INR APTT ABG pH ABG pO2 ABG HCO3 ABG O2 Saturation ABG Base Excess ABG Hemoglobin Oxyhemoglobin Sodium 136 L Potassium Chloride 92.4 L Carbon Dioxide BUN 61 H Creatinine 4.6 H Glucose 198 H POC Glucose 182 H Phosphorus Magnesium Troponin T NT-Pro-B Natriuret Pep Triglycerides Cholesterol LDL Cholesterol Direct HDL Cholesterol TSH Free T4 05/13/19 05/13/19 05/13/19 12:01 12:27 18:35 WBC RBC Hgb Hct RDW Plt Count Lymph % (Auto) [place] % (Auto) Lymph # Seg Neutrophils % Seg Neuts % (Manual) Lymphocytes % (Manual) Nucleated RBC % Seg Neutrophils # Seg Neutrophils # Man Lymphocytes # (Manual) Monocytes # (Manual) PT INR APTT 23.5 L ABG pH ABG pO2 ABG HCO3 ABG O2 Saturation ABG Base Excess ABG Hemoglobin Oxyhemoglobin Sodium Potassium Chloride Carbon Dioxide BUN Creatinine Glucose POC Glucose 243 H 294 H Phosphorus Magnesium Troponin T NT-Pro-B Natriuret Pep Triglycerides Cholesterol LDL Cholesterol Direct HDL Cholesterol TSH Free T4 05/13/19 05/13/19 05/14/19 22:15 23:29 05:21 WBC 16.3 H RBC 3.55 L Hgb Hct RDW 16.8 H Plt Count 118 L Lymph % (Auto) [place] % (Auto) Lymph # Seg Neutrophils % Seg Neuts % (Manual) 93.0 H Lymphocytes % (Manual) 0 L Nucleated RBC % Seg Neutrophils # Seg Neutrophils # Man 15.2 H Lymphocytes # (Manual) 0.0 L Monocytes # (Manual) PT INR APTT ABG pH ABG pO2 ABG HCO3 ABG O2 Saturation ABG Base Excess ABG Hemoglobin Oxyhemoglobin Sodium Potassium Chloride Carbon Dioxide BUN Creatinine Glucose POC Glucose 228 H 201 H Phosphorus Magnesium Troponin T NT-Pro-B Natriuret Pep Triglycerides Cholesterol LDL Cholesterol Direct HDL Cholesterol TSH Free T4 05/14/19 05/14/19 05/14/19 05:21 05:42 13:06 WBC RBC Hgb Hct RDW Plt Count Lymph % (Auto) [place] % (Auto) Lymph # Seg Neutrophils % Seg Neuts % (Manual) Lymphocytes % (Manual) Nucleated RBC % Seg Neutrophils # Seg Neutrophils # Man Lymphocytes # (Manual) Monocytes # (Manual) PT INR APTT ABG pH ABG pO2 ABG HCO3 ABG O2 Saturation ABG Base Excess ABG Hemoglobin Oxyhemoglobin Sodium Potassium Chloride 92.2 L Carbon Dioxide 18 L BUN 79 H Creatinine 5.7 H Glucose 243 H POC Glucose 236 H 172 H Phosphorus Magnesium Troponin T NT-Pro-B Natriuret Pep Triglycerides Cholesterol LDL Cholesterol Direct HDL Cholesterol TSH Free T4 05/14/19 05/15/19 05/15/19 17:49 00:31 05:38 WBC RBC Hgb Hct RDW Plt Count Lymph % (Auto) [place] % (Auto) Lymph # Seg Neutrophils % Seg Neuts % (Manual) Lymphocytes % (Manual) Nucleated RBC % Seg Neutrophils # Seg Neutrophils # Man Lymphocytes # (Manual) Monocytes # (Manual) PT INR APTT ABG pH ABG pO2 ABG HCO3 ABG O2 Saturation ABG Base Excess ABG Hemoglobin Oxyhemoglobin Sodium Potassium Chloride Carbon Dioxide BUN Creatinine Glucose POC Glucose 215 H 276 H 275 H Phosphorus Magnesium Troponin T NT-Pro-B Natriuret Pep Triglycerides Cholesterol LDL Cholesterol Direct HDL Cholesterol TSH Free T4 05/15/19 05/15/19 07:15 07:15 WBC 15.6 H RBC 3.22 L Hgb 9.2 L Hct 28.9 L RDW 16.6 H Plt Count 91 L Lymph % (Auto) 0.4 L [place] % (Auto) Lymph # 0.1 L Seg Neutrophils % 98.7 H Seg Neuts % (Manual) Lymphocytes % (Manual) Nucleated RBC % Seg Neutrophils # 15.4 H Seg Neutrophils # Man Lymphocytes # (Manual) Monocytes # (Manual) PT INR APTT ABG pH ABG pO2 ABG HCO3 ABG O2 Saturation ABG Base Excess ABG Hemoglobin Oxyhemoglobin Sodium 135 L Potassium 3.5 L Chloride 94.1 L Carbon Dioxide 21 L BUN 37 H Creatinine 3.3 H Glucose 299 H POC Glucose Phosphorus Magnesium Troponin T NT-Pro-B Natriuret Pep Triglycerides Cholesterol LDL Cholesterol Direct HDL Cholesterol TSH Free T4
[2019-05-15] MEDS: IPRATROPIUM/ALBUTEROL SULFATE 3 ML AMPUL.NEB IH SCH ×3 (13:17→20:50)
[2019-05-15] MEDS: ARFORMOTEROL 15 MCG/2 ML NEBU IH SCH ×2 (13:17→20:50)
[2019-05-15] MEDS: BUDESONIDE 0.5 MG/2 ML NEBU IH SCH ×2 (13:17→20:50)
--- NOTE | 2019-05-15 14:22 | Progress Note ---
Subjective Principal diagnosis: Acute resp failure,COPd exacerbation Interval history: Patient was seen today for follow-up of multiple renal related issues has had dialysis yesterday Events of 24 hours vitals labs intake output medications were reviewed Past medical history: Reviewed Family history: Reviewed Social history: Reviewed Allergies: Reviewed Physical examination: Vitals: Reviewed HEENT: No pallor or icterus oral mucosa moist Neck: Supple no JVD no thyromegaly Chest: bilateral few basilar crackles Heart: Regular rate and rhythm S1-S2 heard no S3-S4 Abdomen: Soft nontender no voluntary guarding rigidity rebound Extremity: Dry skin less than 1+ peripheral edema Labs and x-rays: Reviewed from today Assessment and plan ESRD currently maintenance of a dialysis Friday and Friday, no rekha gent indication for dialysis today We will continue to monitor, Check labs periodically Cardiomyopathy atrial fibrillation currently being followed by cardiology prognosis remains guarded to poor We'll continue to follow and make recommendation for renal standpoint Objective - Vital Signs Vital signs: Vital Signs - 12hr 05/15/19 05/15/19 05/15/19 02:30 02:46 03:00 Temperature Pulse Rate 133 H 117 H 125 H Pulse Rate [ From Monitor] Pulse Rate [ None] Respiratory 31 H 29 H 29 H Rate Respiratory Rate [denies] Blood Pressure 204/81 177/62 177/62 O2 Sat by Pulse 100 100 100 Oximetry O2 Sat by Pulse Oximetry [ Assessment] 05/15/19 05/15/19 05/15/19 03:16 03:30 03:38 Temperature 99.2 F Pulse Rate 109 H 112 H Pulse Rate [ From Monitor] Pulse Rate [ None] Respiratory 25 H 25 H Rate Respiratory Rate [denies] Blood Pressure 184/55 184/55 O2 Sat by Pulse 100 100 Oximetry O2 Sat by Pulse Oximetry [ Assessment] 05/15/19 05/15/19 05/15/19 03:46 04:00 04:16 Temperature Pulse Rate 106 H 114 H 110 H Pulse Rate [ 117 H From Monitor] Pulse Rate [ None] Respiratory 24 30 H 24 Rate Respiratory Rate [denies] Blood Pressure 184/55 174/78 184/55 O2 Sat by Pulse 100 100 100 Oximetry O2 Sat by Pulse Oximetry [ Assessment] 05/15/19 05/15/19 05/15/19 04:30 04:44 04:46 Temperature Pulse Rate 103 H 106 H 118 H Pulse Rate [ From Monitor] Pulse Rate [ None] Respiratory 23 21 Rate Respiratory Rate [denies] Blood Pressure 184/55 174/78 184/55 O2 Sat by Pulse 100 100 100 Oximetry O2 Sat by Pulse Oximetry [ Assessment] 05/15/19 05/15/19 05/15/19 05:00 05:16 05:30 Temperature Pulse Rate 117 H 117 H 125 H Pulse Rate [ From Monitor] Pulse Rate [ None] Respiratory 28 H 29 H 29 H Rate Respiratory Rate [denies] Blood Pressure 184/55 174/78 174/78 O2 Sat by Pulse 100 99 99 Oximetry O2 Sat by Pulse Oximetry [ Assessment] 05/15/19 05/15/19 05/15/19 05:46 06:00 06:16 Temperature Pulse Rate 102 H 99 H 102 H Pulse Rate [ From Monitor] Pulse Rate [ None] Respiratory 24 24 24 Rate Respiratory Rate [denies] Blood Pressure 199/104 199/104 118/43 O2 Sat by Pulse 99 100 100 Oximetry O2 Sat by Pulse Oximetry [ Assessment] 05/15/19 05/15/19 05/15/19 06:30 06:45 06:46 Temperature Pulse Rate 98 H 111 H 115 H Pulse Rate [ From Monitor] Pulse Rate [ None] Respiratory 22 24 Rate Respiratory Rate [denies] Blood Pressure 118/43 118/43 118/43 O2 Sat by Pulse 100 100 Oximetry O2 Sat by Pulse Oximetry [ Assessment] 05/15/19 05/15/19 05/15/19 07:00 07:30 08:00 Temperature 98.8 F Pulse Rate 115 H 118 H 105 H Pulse Rate [ 121 H From Monitor] Pulse Rate [ 111 H None] Respiratory 29 H 25 H 32 H Rate Respiratory Rate [denies] Blood Pressure 118/43 217/113 160/76 O2 Sat by Pulse 100 100 100 Oximetry O2 Sat by Pulse Oximetry [ Assessment] 05/15/19 05/15/19 05/15/19 08:30 09:00 09:30 Temperature Pulse Rate 116 H 99 H 117 H Pulse Rate [ From Monitor] Pulse Rate [ None] Respiratory 25 H 25 H 29 H Rate Respiratory Rate [denies] Blood Pressure 179/111 179/111 160/76 O2 Sat by Pulse 100 100 100 Oximetry O2 Sat by Pulse Oximetry [ Assessment] 05/15/19 05/15/19 05/15/19 10:00 10:30 11:00 Temperature Pulse Rate 111 H 119 H 102 H Pulse Rate [ From Monitor] Pulse Rate [ None] Respiratory 30 H 30 H 25 H Rate Respiratory 30 H Rate [denies] Blood Pressure 160/76 160/76 160/76 O2 Sat by Pulse 100 100 100 Oximetry O2 Sat by Pulse Oximetry [ Assessment] 05/15/19 05/15/19 05/15/19 11:30 12:00 12:26 Temperature 97.9 F Pulse Rate 106 H 119 H 109 H Pulse Rate [ 127 H From Monitor] Pulse Rate [ 118 H None] Respiratory 28 H 25 H Rate Respiratory Rate [denies] Blood Pressure 196/103 184/86 180/86 O2 Sat by Pulse 100 100 Oximetry O2 Sat by Pulse Oximetry [ Assessment] 05/15/19 05/15/19 05/15/19 12:30 13:00 13:30 Temperature Pulse Rate 111 H 109 H 96 H Pulse Rate [ From Monitor] Pulse Rate [ None] Respiratory 28 H 25 H 24 Rate Respiratory Rate [denies] Blood Pressure 196/103 184/86 184/86 O2 Sat by Pulse 100 99 99 Oximetry O2 Sat by Pulse 96 Oximetry [ Assessment] 05/15/19 14:00 Temperature Pulse Rate 110 H Pulse Rate [ From Monitor] Pulse Rate [ None] Respiratory 24 Rate Respiratory Rate [denies] Blood Pressure 165/100 O2 Sat by Pulse 98 Oximetry O2 Sat by Pulse Oximetry [ Assessment] - Lab 05/15/19 07:15 05/15/19 07:15 Most recent lab results ABG pH 7.388 pH Units (7.350-7.450) 05/12/19 04:36 ABG pCO2 38.5 mm Hg 05/12/19 04:36 ABG pO2 79.4 mm Hg (80.0-90.0) L 05/12/19 04:36 ABG HCO3 22.7 mmol/L (20.0-26.0) 05/12/19 04:36 ABG O2 Saturation 96.0 % (95.0-99.0) 05/12/19 04:36 Calcium 9.3 mg/dL (8.4-10.2) 05/15/19 07:15 Phosphorus 12.90 mg/dL (2.5-4.5) H 05/03/19 09:44 Magnesium 1.50 mg/dL (1.7-2.3) L 05/11/19 13:00 Medications & Allergies - Medications Allergies/Adverse Reactions: Allergies latex Allergy (Verified 02/05/19 13:51) Hives milk Allergy (Verified 02/05/19 13:51) Rash Home Medications: Home Medications Medication Instructions Recorded Confirmed Last Taken Type Metoprolol [Lopressor TAB] 50 mg PO BID #60 tablet 01/27/18 05/03/19 04/11/19 Rx Montelukast [Singulair] 10 mg PO QPM #30 tablet 01/27/18 05/03/19 04/11/19 Rx Pravastatin [Pravachol] 40 mg PO QHS #30 tablet 01/27/18 05/03/19 04/11/19 Rx allopurinoL [Zyloprim] 100 mg PO QDAY #30 tablet 01/27/18 05/03/19 04/11/19 Rx Famotidine [Pepcid] 20 mg PO BID 06/17/18 05/03/19 04/11/19 History Fluticasone/Vilanterol [Breo 1 each IH BID #1 blst.w.dev 12/31/18 05/03/19 04/11/19 Rx Ellipta 200-25 Mcg INH] Tiotropium [place] [Spiriva 4 gm IH DAILY #1 mist.inhal 12/31/18 05/03/19 04/11/19 Rx Respimat] Aspirin EC [Halfprin EC] 81 mg PO QDAY #30 tablet. 02/18/19 05/03/19 04/11/19 Rx ISOSORBIDE MONOnitrate [Imdur ER] 30 mg PO QDAY #30 tablet 02/18/19 05/03/19 Unknown Rx glipiZIDE [Glucotrol] 5 mg PO QDAY #30 tablet 02/18/19 05/03/19 Unknown Rx ALBUTEROL NEB's [Proventil 0.083% 2.5 mg IH Q4HRT PRN #30 nebu 04/15/19 05/03/19 Unknown Rx NEBS] Furosemide [Lasix] 20 mg PO QDAY #30 tablet 04/15/19 05/03/19 Unknown Rx Ipratropium/Albuterol Sulfate 2 puff IH BID #1 unit 04/15/19 05/03/19 Unknown Rx [Combivent Respimat] Olanzapine/Fluoxetine HCl [Symbyax 1 each PO QHS #30 capsule 04/15/19 05/03/19 Unknown Rx 3-25 mg] Sodium Bicarbonate 650 mg PO BID #60 tablet 04/15/19 05/03/19 Unknown Rx amLODIPine 10 mg PO DAILY #30 tablet 04/15/19 05/03/19 Unknown Rx cefUROXime [Ceftin] 250 mg PO Q12H #14 tablet 04/15/19 05/03/19 Unknown Rx predniSONE [Deltasone] 1 tab PO QDAY #91 tab 04/15/19 05/03/19 Unknown Rx traMADoL [Ultram 50 MG tab] 50 mg PO Q8H PRN #15 tab 04/15/19 05/03/19 04/11/19 Rx Active Medications: Generic Name Dose Route Start Last Admin Trade Name Freq PRN Reason Stop Dose Admin Acetaminophen 650 mg 04/30/19 17:44 05/05/19 15:22 Tylenol PO 650 mg Q4H PRN Administration Pain MILD(1-3)/Fever >100.5/HERRMANN Albuterol 2.5 mg 04/30/19 18:32 05/02/19 04:49 Proventil IH 2.5 mg Q3H PRN Administration Shortness Of Breath Albuterol/Ipratropium 1 ampul 05/11/19 14:00 05/15/19 13:17 Duoneb *Not For Prn Use* IH 1 ampul TIDRT KVNG Administration Amiodarone HCl 200 mg 05/12/19 10:00 05/15/19 09:50 Cordarone PO 200 mg QDAY KVNG Administration Lipase/Protease/Amylase 1 each 05/04/19 14:58 Pancrejessica Gould 10,500 Unit FEEDTUBE PRN PRN For Clogged Feeding Tube Arformoterol Tartrate 15 mcg 05/01/19 08:00 05/15/19 13:17 Brovana Nebu IH 15 mcg Q12HRT KVNG Administration Aspirin 81 mg 05/11/19 10:00 05/15/19 09:50 Baby Aspirin PO 81 mg QDAY KVNG Administration Budesonide 0.5 mg 05/03/19 11:00 05/15/19 13:17 Pulmicort IH 0.5 mg Q12HRT KVNG Administration Buspirone HCl 15 mg 05/04/19 10:00 05/15/19 09:50 Buspar PO 15 mg BID KVNG Administration Diltiazem HCl 30 mg 05/11/19 12:00 05/15/19 12:26 Cardizem PO 30 mg Q6HR KVNG Administration Famotidine 20 mg 05/10/19 10:00 05/15/19 09:50 Pepcid IV 20 mg DAILY KVNG Administration Fentanyl 50 mcg 05/11/19 10:00 05/15/19 10:18 Sublimaze IV 50 mcg Q2H PRN Administration AGITATION Hydralazine HCl 5 mg 05/01/19 22:47 05/14/19 18:09 Apresoline IV 5 mg Q6HR PRN Administration SBP > 160 AND/OR DBP > 100 Hydrophilic Ointment 1 applic 05/04/19 09:42 Vaseline Lip Therapy TP Q2HR PRN Dry Lips Sodium Chloride 100 mls @ 999 mls/hr 04/30/19 13:29 Nacl 0.9% IV ALBINO PRN Hypotension Sodium Chloride 100 mls @ 999 mls/hr 05/14/19 13:53 Nacl 0.9% IV ALBINO PRN Hypotension Insulin Glargine 10 units 05/14/19 22:00 05/14/19 22:34 Lantus SUB-Q 10 units QHS KVNG Administration Insulin Human Lispro 0 unit 05/05/19 18:00 05/15/19 13:53 Humalog SUB-Q 6 unit Q6HR KVNG Administration Protocol Lorazepam 1 mg 05/02/19 11:08 05/15/19 08:10 Ativan IV 1 mg Q4H PRN Administration Anxiety Methylprednisolone Sodium Succinate 40 mg 05/14/19 12:00 05/15/19 12:26 Solu-Medrol IV 40 mg Q8H KVNG Administration Metoclopramide HCl 5 mg 05/10/19 14:00 05/14/19 14:30 Reglan IV 5 mg Q12H KVNG Administration Montelukast Sodium 10 mg 04/30/19 19:00 05/14/19 18:02 Singulair PO 10 mg QPM KVNG Administration Multi-Ingred Cream/Lotion/Oil/Oint 1 applic 05/04/19 09:42 Artificial Tears Ophth Oint OU Q4HR PRN Dry Eye(s) Pravastatin Sodium 40 mg 04/30/19 22:00 05/14/19 22:29 Pravachol PO 40 mg QHS KVNG Administration Simple Syrup 15 ml 05/04/19 14:58 Simple Syrup FEEDTUBE PRN PRN Hypoglycemia Simple Syrup 30 ml 05/04/19 14:58 Simple Syrup FEEDTUBE PRN PRN Hypoglycemia Sodium Bicarbonate 325 mg 05/04/19 14:58 Sodium Bicarbonate FEEDTUBE PRN PRN For Clogged Feeding Tube Sodium Chloride 10 ml 04/30/19 22:00 05/14/19 09:39 Sodium Chloride Flush Syringe 10 Ml IV 10 ml BID KVNG Administration Sodium Chloride 10 ml 04/30/19 17:44 05/15/19 09:53 Sodium Chloride Flush Syringe 10 Ml IV 10 ml PRN PRN Administration LINE FLUSH
--- NOTE | 2019-05-15 14:49 | Progress Note ---
Assessment and Plan Paroxysmal Afib -currently in sinus rhythm -on amiodarone and diltiazem for suppression Respiratory failure -s/p vent to trach ESRD on hemodialysis Severe COPD Hx of coronary artery disease s/p CABG in 2006 Mild cardiomyopathy echocardiogram done 01/2018 reports an ejection fraction of 40-45%. echocardiogram 12/2018 reports an ejection fraction 45-50%. MPI 12/2018 - fixed basal lateral wall defect, no ischemia Hyperlipidemia History of DVT -not on anticoagulation secondary to hematuria Recommendations: Continue amiodarone suppression of atrial fibrillation. Increase diltiazem and change to Cardizem CD prior to discharge Patient is not a candidate for [facility] oral anticoagulation or aggressive cardiac therapies. Otherwise, conservative cardiac management. Subjective Date of service: 05/15/19 Principal diagnosis: Acute resp failure,COPd exacerbation Interval history: No acute events Objective Vital Signs Temp Pulse Pulse Pulse Pulse Resp Resp 05/15/19 14:00 110 H 24 05/15/19 13:30 96 H 24 05/15/19 13:00 109 H 25 H 05/15/19 12:30 111 H 28 H 05/15/19 12:26 109 H 05/15/19 12:00 97.9 F 119 H 127 H 118 H 25 H 05/15/19 11:30 106 H 28 H 05/15/19 11:00 102 H 25 H 05/15/19 10:30 119 H 30 H 05/15/19 10:00 111 H 30 H 05/15/19 09:30 117 H 29 H 05/15/19 09:00 99 H 25 H 05/15/19 08:30 116 H 25 H 05/15/19 08:00 98.8 F 105 H 121 H 111 H 32 H 05/15/19 07:30 118 H 25 H 05/15/19 07:00 115 H 29 H 05/15/19 06:46 115 H 24 05/15/19 06:45 111 H 05/15/19 06:30 98 H 22 05/15/19 06:16 102 H 24 05/15/19 06:00 99 H 24 05/15/19 05:46 102 H 24 05/15/19 05:30 125 H 29 H 05/15/19 05:16 117 H 29 H 05/15/19 05:00 117 H 28 H 05/15/19 04:46 118 H 21 05/15/19 04:44 106 H 05/15/19 04:30 103 H 23 05/15/19 04:16 110 H 24 05/15/19 04:00 114 H 117 H 30 H 05/15/19 03:46 106 H 24 05/15/19 03:38 99.2 F 05/15/19 03:30 112 H 25 H 05/15/19 03:16 109 H 25 H 05/15/19 03:00 125 H 29 H 05/15/19 02:46 117 H 29 H 05/15/19 02:30 133 H 31 H 05/15/19 02:16 118 H 32 H 05/15/19 02:00 124 H 33 H 05/15/19 01:46 124 H 27 H 05/15/19 01:30 121 H 27 H 05/15/19 01:16 124 H 31 H 05/15/19 01:00 116 H 29 H 05/15/19 00:48 123 H 05/15/19 00:46 121 H 29 H 05/15/19 00:30 118 H 22 05/15/19 00:16 126 H 29 H 05/15/19 00:00 100.5 F H 117 H 117 H 29 H 05/14/19 23:46 117 H 26 H 05/14/19 23:30 114 H 22 05/14/19 23:25 118 H 05/14/19 23:18 116 H 28 H 05/14/19 23:16 119 H 29 H 05/14/19 23:00 120 H 31 H 05/14/19 22:48 106 H 23 05/14/19 22:46 111 H 25 H 05/14/19 22:30 120 H 32 H 05/14/19 22:16 122 H 30 H 05/14/19 22:00 116 H 30 H 05/14/19 21:46 118 H 32 H 05/14/19 21:30 121 H 27 H 05/14/19 21:16 106 H 28 H 05/14/19 21:00 114 H 33 H 05/14/19 20:46 116 H 32 H 05/14/19 20:40 05/14/19 20:38 121 H 30 H 05/14/19 20:35 105 H 05/14/19 20:30 120 H 30 H 05/14/19 20:16 112 H 31 H 05/14/19 20:00 99.4 F 119 H 113 H 30 H 05/14/19 19:46 116 H 27 H 05/14/19 19:30 103 H 24 05/14/19 19:16 98 H 24 05/14/19 19:00 113 H 33 H 05/14/19 18:46 112 H 31 H 05/14/19 18:30 103 H 22 05/14/19 18:15 113 H 24 05/14/19 18:09 115 H 05/14/19 18:01 114 H 05/14/19 18:00 124 H 29 H 05/14/19 17:46 105 H 27 H 05/14/19 17:30 111 H 28 H 05/14/19 17:16 101 H 26 H 05/14/19 17:00 112 H 23 05/14/19 16:46 96 H 24 05/14/19 16:30 95 H 21 05/14/19 16:15 96 H 22 05/14/19 16:00 97.5 F L 100 H 100 H 24 05/14/19 15:49 97.0 F L 94 H 23 05/14/19 15:45 104 H 32 H 05/14/19 15:31 99 H 05/14/19 15:30 100 H 25 H 05/14/19 15:19 110 H 29 H 05/14/19 15:16 107 H 05/14/19 15:15 107 H 32 H 05/14/19 15:00 100 H 25 H Resp BP Pulse Ox Pulse Ox 05/15/19 14:00 165/100 98 05/15/19 13:30 184/86 99 05/15/19 13:00 184/86 99 96 05/15/19 12:30 196/103 100 05/15/19 12:26 180/86 05/15/19 12:00 184/86 100 05/15/19 11:30 196/103 100 05/15/19 11:00 160/76 100 05/15/19 10:30 160/76 100 05/15/19 10:00 30 H 160/76 100 05/15/19 09:30 160/76 100 05/15/19 09:00 179/111 100 05/15/19 08:30 179/111 100 05/15/19 08:00 160/76 100 05/15/19 07:30 217/113 100 05/15/19 07:00 118/43 100 05/15/19 06:46 118/43 100 05/15/19 06:45 118/43 05/15/19 06:30 118/43 100 05/15/19 06:16 118/43 100 05/15/19 06:00 199/104 100 05/15/19 05:46 199/104 99 05/15/19 05:30 174/78 99 05/15/19 05:16 174/78 99 05/15/19 05:00 184/55 100 05/15/19 04:46 184/55 100 05/15/19 04:44 174/78 100 05/15/19 04:30 184/55 100 05/15/19 04:16 184/55 100 05/15/19 04:00 174/78 100 05/15/19 03:46 184/55 100 05/15/19 03:38 05/15/19 03:30 184/55 100 05/15/19 03:16 184/55 100 05/15/19 03:00 177/62 100 05/15/19 02:46 177/62 100 05/15/19 02:30 204/81 100 05/15/19 02:16 204/81 100 05/15/19 02:00 204/81 100 05/15/19 01:46 193/79 100 05/15/19 01:30 193/79 100 05/15/19 01:16 193/79 99 05/15/19 01:00 193/79 100 05/15/19 00:48 201/99 05/15/19 00:46 201/99 100 05/15/19 00:30 201/99 100 05/15/19 00:16 201/99 100 05/15/19 00:00 202/99 100 05/14/19 23:46 202/99 100 05/14/19 23:30 202/99 100 05/14/19 23:25 202/99 100 05/14/19 23:18 202/99 100 05/14/19 23:16 202/99 100 05/14/19 23:00 169/76 100 05/14/19 22:48 169/76 100 03/27/20 22:46 169/76 100 03/27/20 22:30 169/76 100 05/14/19 22:16 169/76 100 05/14/19 22:00 183/82 100 05/14/19 21:46 183/82 100 05/14/19 21:30 183/82 100 05/14/19 21:16 183/82 100 05/14/19 21:00 175/94 100 05/14/19 20:46 175/94 99 05/14/19 20:40 97 05/14/19 20:38 05/14/19 20:35 175/94 100 05/14/19 20:30 175/94 100 05/14/19 20:16 175/94 100 05/14/19 20:00 175/94 100 05/14/19 19:46 174/99 100 05/14/19 19:30 174/99 100 05/14/19 19:16 174/99 100 05/14/19 19:00 174/99 100 05/14/19 18:46 209/68 100 05/14/19 18:30 209/68 100 05/14/19 18:15 181/100 100 05/14/19 18:09 209/68 05/14/19 18:01 157/73 05/14/19 18:00 157/73 100 05/14/19 17:46 157/73 100 05/14/19 17:30 157/73 100 05/14/19 17:16 157/73 100 05/14/19 17:00 210/83 100 05/14/19 16:46 210/83 100 05/14/19 16:30 210/83 100 05/14/19 16:15 199/81 100 05/14/19 16:00 172/76 100 05/14/19 15:49 176/105 05/14/19 15:45 176/105 100 05/14/19 15:31 173/103 05/14/19 15:30 172/103 100 05/14/19 15:19 05/14/19 15:16 180/95 100 05/14/19 15:15 180/95 100 05/14/19 15:00 156/90 100 - Physical Examination General: No Apparent Distress Neck: Positive: Other (vent to trach) Cardiac: Positive: Reg Rate and Rhythm Lungs: Positive: Rhonchi Abdomen: Positive: Soft, Active Bowel Sounds Extremities: Present: edema - Labs and Meds CBC 05/15/19 Range/Units 07:15 WBC 15.6 H (4.5-11.0) K/mm3 RBC 3.22 L (3.65-5.03) M/mm3 Hgb 9.2 L (10.1-14.3) gm/dl Hct 28.9 L (30.3-42.9) % Plt Count 91 L (140-440) K/mm3 Lymph # 0.1 L (1.2-5.4) K/mm3 [place] # 0.1 (0.0-0.8) K/mm3 Eos # 0.0 (0.0-0.4) K/mm3 Baso # 0.0 (0.0-0.1) K/mm3 Comprehensive Metabolic Panel 05/15/19 Range/Units 07:15 Sodium 135 L (137-145) mmol/L Potassium 3.5 L (3.6-5.0) mmol/L Chloride 94.1 L (98-107) mmol/L Carbon Dioxide 21 L (22-30) mmol/L BUN 37 H (7-17) mg/dL Creatinine 3.3 H (0.7-1.2) mg/dL Glucose 299 H (65-100) mg/dL Calcium 9.3 (8.4-10.2) mg/dL - Imaging and Cardiology EKG: report reviewed
[2019-05-15] MEDS: METOCLOPRAMIDE 10 MG/2 ML INJ IV SCH (16:30)
[2019-05-15] MEDS: dilTIAZem 60 MG TAB PO SCH ×2 (17:18→23:04)
[2019-05-15] MEDS: MONTELUKAST 10 MG TAB PO SCH (17:35)
[2019-05-15] MEDS: INSULIN GLARGINE 100 UNITS/ML SUB-Q SCH (23:01)
[2019-05-15] MEDS: PRAVASTATIN 40 MG TAB PO SCH (23:01)
[2019-05-16] MEDS: INSULIN LISPRO 100 UNIT/ML SUB-Q SCH ×4 (01:20→18:02)
[2019-05-16] MEDS: METOCLOPRAMIDE 10 MG/2 ML INJ IV SCH ×2 (01:21→15:11)
[2019-05-16] MEDS: dilTIAZem 60 MG TAB PO SCH ×3 (06:59→18:01)
[2019-05-16] MEDS: methylPREDNISolone Sod Succinate 125 MG/2 ML INJ IV SCH ×3 (07:00→22:44)
--- NOTE | 2019-05-16 08:33 | Progress Note ---
Assessment and Plan Assessment and plan: Patient is a 78 yo AA woman with a history of HI, Diastolic CHF, CAD S/P CABG, DM, Asthma, OA, Anxiety disorder, Chronic Respiratory Failure on 2-3 L Home oxygen due to end stage COPD and ESRD on HD(M,W,F) who presented to [facility] ED on 04/30/2019 with SOB and wheezing for 2 days. Acute on chronic hypoxic respiratory failure >96 hours: trying to wean, CCM Atrial Fibrillation with RVR: metoprolol IV with holding parameters, Cardiology consulted Acute COPD exacerbation: Continue neb treatments, antibiotics, steroids and oxygen supplement Anxiety disorder: Continue Klonopin Hyperglycemia: Continue to monitor likely induced by steroid use. End-stage renal disease: On hemodialysis Friday and Friday, Nephrology note reviewed Acute metabolic acidosis: monitor BMP Chronic diastolic heart failure, Hypertension, Anemia of chronic kidney disease: monitor CBC DVT ppx: sq heparin 05/06: Discussed with boat designer plan is for extubation today. Continue management. 05/07: Discussed with family and boat designer, will proceed with re-intubation and possible plan for Trach and PEG. Daughter informs me that the patient is very anxious and believes that this hampers extubation. Stated that she had discussed with boat designer to reintubate the patient if she failed extubation. She does understand the process of weaning from ventilation. 05/08: Hyperkalemia, Nephrology managing 05/09: Afib, will optimize, and plan for trach and PEG. Cardiology consult. Pulmonary adjusting vent. No changes clinically. Discussed with Surgery, will plan for Trach and Peg 05/11/19: I took over care on Day 11. Still trying to wean vent and vasopressor. Awaiting PEG and trach. Restraints renewed, CCT 32 minutes, 05/12/19: Hemodialysis today, trach and PEG tomorrow. 05/13/19: Trach and PEG today, restraints renewed. 05/14/19: Daily MV weaning attempts, Awaiting on LTACH, her insurance requiring 20 day ICU stay, she is 14 days in ICU. Restraint renewed 05/15/19: Still intubated, PEEP 8 FiO2 40%, Restraints renewed. Hyperglycemia should improve with weaning of steroids, currently on Lantus 10u/Humalog SSI 05/16/19: Still Intubated, day ICU stay needed for LTACH. History Interval history: Patient was seen and examined. Follow-up on current diagnosis of Afib with RVR. Overnight uneventful as no events directly reported to me. Patient is intubated Imaging, nursing note, chart, labs and old chart reviewed. Hospitalist Physical - Physical exam Narrative exam: Gen: critically ill HEENT: NCAT, ETT in place Neck: supple, no adenopathy, no thyromegaly, no JVD CVS/Heart: irregular irregular, normal S1S2, pulses present bilaterally Chest/Lungs: diminished Symmetrical chest expansion, good air entry bilaterally GI/Abdomen: soft, NTND, good bowel sounds, no guarding or rebound /Bladder: no suprapubic tenderness, no CVA or paraspinal tenderness Extermity/Skin: no c/c/e, no obvious rash MSK: intubated Neuro: intubated Psych: intubated - Constitutional Vitals: Temp Pulse Resp BP Pulse Ox 98.8 F 103 H 23 193/77 97 05/16/19 03:42 05/16/19 07:00 05/16/19 07:00 05/16/19 07:00 05/16/19 07:00 General appearance: Present: other (intubated on the vent) ROB score - Rob Score Age > 65: (1) Yes Aspirin use within the Past 7 Days: (1) Yes 3 or more CAD Risk Factors: (1) Yes 2 or more Angina events in past 24 hrs: (0) No Known CAD with more than 50% Stenosis: (0) No Elevated Cardiac Markers: (0) No ST Deviation Greater than 0.5mm: (0) No ROB Score: 3 Results - Labs CBC & Chem 7: 05/15/19 07:15 05/15/19 07:15 Labs: Laboratory Last Values WBC 15.6 K/mm3 (4.5-11.0) H 05/15/19 07:15 RBC 3.22 M/mm3 (3.65-5.03) L 05/15/19 07:15 Hgb 9.2 gm/dl (10.1-14.3) L 05/15/19 07:15 Hct 28.9 % (30.3-42.9) L 05/15/19 07:15 MCV 90 fl (79-97) 05/15/19 07:15 MCH 29 pg (28-32) 05/15/19 07:15 MCHC 32 % (30-34) 05/15/19 07:15 RDW 16.6 % (13.2-15.2) H 05/15/19 07:15 Plt Count 91 K/mm3 (140-440) L 05/15/19 07:15 Lymph % (Auto) 0.4 % (13.4-35.0) L 05/15/19 07:15 [place] % (Auto) 0.8 % (0.0-7.3) 05/15/19 07:15 Eos % (Auto) 0.0 % (0.0-4.3) 05/15/19 07:15 Baso % (Auto) 0.1 % (0.0-1.8) 05/15/19 07:15 Lymph # 0.1 K/mm3 (1.2-5.4) L 05/15/19 07:15 [place] # 0.1 K/mm3 (0.0-0.8) 05/15/19 07:15 Eos # 0.0 K/mm3 (0.0-0.4) 05/15/19 07:15 Baso # 0.0 K/mm3 (0.0-0.1) 05/15/19 07:15 Add Manual Diff Complete 05/14/19 05:21 Total Counted 100 05/14/19 05:21 Seg Neutrophils % 98.7 % (40.0-70.0) H 05/15/19 07:15 Seg Neuts % (Manual) 93.0 % (40.0-70.0) H 05/14/19 05:21 Band Neutrophils % 6.0 % 05/14/19 05:21 Lymphocytes % (Manual) 0 % (13.4-35.0) L 05/14/19 05:21 Reactive Lymphs % (Man) 0 % 05/14/19 05:21 Monocytes % (Manual) 1.0 % (0.0-7.3) 05/14/19 05:21 Eosinophils % (Manual) 0 % (0.0-4.3) 05/14/19 05:21 Basophils % (Manual) 0 % (0.0-1.8) 05/14/19 05:21 Metamyelocytes % 0 % 05/14/19 05:21 Myelocytes % 0 % 05/14/19 05:21 Promyelocytes % 0 % 05/14/19 05:21 Blast Cells % 0 % 05/14/19 05:21 Nucleated RBC % Not Reportable 05/14/19 05:21 Seg Neutrophils # 15.4 K/mm3 (1.8-7.7) H 05/15/19 07:15 Seg Neutrophils # Man 15.2 K/mm3 (1.8-7.7) H 05/14/19 05:21 Band Neutrophils # 1.0 K/mm3 05/14/19 05:21 Lymphocytes # (Manual) 0.0 K/mm3 (1.2-5.4) L 05/14/19 05:21 Abs React Lymphs (Man) 0.0 K/mm3 05/14/19 05:21 Monocytes # (Manual) 0.2 K/mm3 (0.0-0.8) 05/14/19 05:21 Eosinophils # (Manual) 0.0 K/mm3 (0.0-0.4) 05/14/19 05:21 Basophils # (Manual) 0.0 K/mm3 (0.0-0.1) 05/14/19 05:21 Metamyelocytes # 0.0 K/mm3 05/14/19 05:21 Myelocytes # 0.0 K/mm3 05/14/19 05:21 Promyelocytes # 0.0 K/mm3 05/14/19 05:21 Blast Cells # 0.0 K/mm3 05/14/19 05:21 WBC Morphology Not Reportable 05/14/19 05:21 Hypersegmented Neuts Not Reportable 05/14/19 05:21 Hyposegmented Neuts Not Reportable 05/14/19 05:21 Hypogranular Neuts Not Reportable 05/14/19 05:21 Smudge Cells Not Reportable 05/14/19 05:21 Toxic Granulation Not Reportable 05/14/19 05:21 Toxic Vacuolation Not Reportable 05/14/19 05:21 Dohle Bodies Not Reportable 05/14/19 05:21 Pelger-Huet Anomaly Not Reportable 05/14/19 05:21 Ariel Rods Not Reportable 05/14/19 05:21 Platelet Estimate Consistent w auto 05/14/19 05:21 Clumped Platelets Not Reportable 05/14/19 05:21 Plt Clumps, EDTA Not Reportable 05/14/19 05:21 Large Platelets Not Reportable 05/14/19 05:21 Giant Platelets Not Reportable 05/14/19 05:21 Platelet Satelliting Not Reportable 05/14/19 05:21 Plt Morphology Comment Not Reportable 05/14/19 05:21 RBC Morphology Not Reportable 05/14/19 05:21 Dimorphic RBCs Not Reportable 05/14/19 05:21 Polychromasia Not Reportable 05/14/19 05:21 Hypochromasia Not Reportable 05/14/19 05:21 Poikilocytosis Not Reportable 05/14/19 05:21 Anisocytosis Not Reportable 05/14/19 05:21 Microcytosis Not Reportable 05/14/19 05:21 Macrocytosis Not Reportable 05/14/19 05:21 Spherocytes Not Reportable 05/14/19 05:21 Pappenheimer Bodies Not Reportable 05/14/19 05:21 Sickle Cells Not Reportable 05/14/19 05:21 Target Cells Not Reportable 05/14/19 05:21 Tear Drop Cells Few 05/14/19 05:21 Ovalocytes Not Reportable 05/14/19 05:21 Helmet Cells Not Reportable 05/14/19 05:21 [place] Bodies Not Reportable 05/14/19 05:21 Creola Rings Not Reportable 05/14/19 05:21 Sutherland Cells Not Reportable 05/14/19 05:21 Bite Cells Not Reportable 05/14/19 05:21 Crenated Cell Not Reportable 05/14/19 05:21 Elliptocytes Few 05/14/19 05:21 Acanthocytes (Spur) Not Reportable 05/14/19 05:21 Rouleaux Not Reportable 05/14/19 05:21 Hemoglobin C Crystals Not Reportable 05/14/19 05:21 Schistocytes Not Reportable 05/14/19 05:21 Malaria parasites Not Reportable 05/14/19 05:21 [place] Bodies Not Reportable 05/14/19 05:21 Hem Pathologist Commnt No 05/14/19 05:21 PT 14.7 Sec. (12.2-14.9) 05/13/19 12:01 INR 1.13 (0.87-1.13) 05/13/19 12:01 APTT 23.5 Sec. (24.2-36.6) L 05/13/19 12:01 ABG pH 7.388 pH Units (7.350-7.450) 05/12/19 04:36 ABG pCO2 38.5 mm Hg 05/12/19 04:36 ABG pO2 79.4 mm Hg (80.0-90.0) L 05/12/19 04:36 ABG HCO3 22.7 mmol/L (20.0-26.0) 05/12/19 04:36 ABG O2 Saturation 96.0 % (95.0-99.0) 05/12/19 04:36 ABG O2 Content 14.5 (0.0-44) 05/12/19 04:36 ABG Base Excess -2.0 mmol/L (-2.0-3.0) 05/12/19 04:36 ABG Hemoglobin 10.9 gm/dl (12.0-16.0) L 05/12/19 04:36 ABG Carboxyhemoglobin 1.4 % (0.0-5.0) 05/12/19 04:36 ABG Methemoglobin 0.7 % (0.0-1.5) 05/12/19 04:36 Oxyhemoglobin 94.0 % (95.0-99.0) L 05/12/19 04:36 FiO2 35 % 05/12/19 04:36 Sodium 135 mmol/L (137-145) L 05/15/19 07:15 Potassium 3.5 mmol/L (3.6-5.0) L 05/15/19 07:15 Chloride 94.1 mmol/L (98-107) L 05/15/19 07:15 Carbon Dioxide 21 mmol/L (22-30) L 05/15/19 07:15 Anion Gap 23 mmol/L 05/15/19 07:15 BUN 37 mg/dL (7-17) H 05/15/19 07:15 Creatinine 3.3 mg/dL (0.7-1.2) H 05/15/19 07:15 Estimated GFR 16 ml/min 05/15/19 07:15 BUN/Creatinine Ratio 11 % 05/15/19 07:15 Glucose 299 mg/dL (65-100) H 05/15/19 07:15 POC Glucose 289 (70-105) H 05/16/19 05:38 Hemoglobin A1c 5.6 % (4-6) 04/30/19 11:32 Calcium 9.3 mg/dL (8.4-10.2) 05/15/19 07:15 Phosphorus 12.90 mg/dL (2.5-4.5) H 05/03/19 09:44 Magnesium 1.50 mg/dL (1.7-2.3) L 05/11/19 13:00 Total Bilirubin 0.40 mg/dL (0.1-1.2) 05/01/19 12:43 AST 39 units/L (5-40) 05/01/19 12:43 ALT 23 units/L (7-56) 05/01/19 12:43 Alkaline Phosphatase 102 units/L (35-129) 05/01/19 12:43 Total Creatine Kinase Cancelled 04/30/19 14:20 CK-MB (CK-2) Cancelled 04/30/19 14:20 CK-MB (CK-2) Rel Index Cancelled 04/30/19 14:20 Troponin T 0.117 ng/mL (0.00-0.029) H* 04/30/19 14:20 NT-Pro-B Natriuret Pep 99553 pg/mL (0-900) H 04/30/19 14:20 Total Protein 6.6 g/dL (6.3-8.2) 05/01/19 12:43 Albumin 4.0 g/dL (3.9-5) 05/01/19 12:43 Albumin/Globulin Ratio 1.5 % 05/01/19 12:43 Triglycerides 380 mg/dL (2-149) H 05/06/19 04:20 Cholesterol 303 mg/dL (50-199) H 04/30/19 14:20 LDL Cholesterol Direct 190 mg/dL (50-130) H 04/30/19 14:20 HDL Cholesterol 105 mg/dL (40-59) H 04/30/19 14:20 Cholesterol/HDL Ratio 2.88 % 04/30/19 14:20 TSH 0.220 mlU/mL (0.270-4.200) L 05/11/19 13:00 Free T4 0.70 ng/dL (0.76-1.46) L 05/11/19 13:00 Hepatitis A IgM Ab Non-reactive (NonReactive) 04/30/19 14:20 Hep Bs Antigen Non-reactive (Negative) 04/30/19 14:20 Hep B Core IgM Ab Non-reactive (NonReactive) 04/30/19 14:20 Hepatitis C Antibody Non-reactive (NonReactive) 04/30/19 14:20 [place]/IV: Voiding Method Diaper IV Catheter Type [Left Upper Mid-line arm] IV Catheter Type [Left Mid-line Subclavian] IV Catheter Type [Right Upper INT / Saline Lock arm] IV Catheter Type [Right Hand] INT / Saline Lock IV Catheter Type [Left Forearm INT / Saline Lock ] IV Catheter Type [Right VAS Cath Internal Jugular] Active Medications - Current Medications Current Medications: Generic Name Dose Route Start Last Admin Trade Name Freq PRN Reason Stop Dose Admin Acetaminophen 650 mg 04/30/19 17:44 05/05/19 15:22 Tylenol PO 650 mg Q4H PRN Administration Pain MILD(1-3)/Fever >100.5/HERRMANN Albuterol 2.5 mg 04/30/19 18:32 05/02/19 04:49 Proventil IH 2.5 mg Q3H PRN Administration Shortness Of Breath Albuterol/Ipratropium 1 ampul 05/11/19 14:00 05/15/19 20:50 Duoneb *Not For Prn Use* IH 1 ampul TIDRT KVNG Administration Amiodarone HCl 200 mg 05/12/19 10:00 05/15/19 09:50 Cordarone PO 200 mg QDAY KVNG Administration Lipase/Protease/Amylase 1 each 05/04/19 14:58 Pancrejessica Gould 10,500 Unit FEEDTUBE PRN PRN For Clogged Feeding Tube Arformoterol Tartrate 15 mcg 05/01/19 08:00 05/15/19 20:50 Brovana Nebu IH 15 mcg Q12HRT KVNG Administration Aspirin 81 mg 05/11/19 10:00 05/15/19 09:50 Baby Aspirin PO 81 mg QDAY KVNG Administration Budesonide 0.5 mg 05/03/19 11:00 05/15/19 20:50 Pulmicort IH 0.5 mg Q12HRT KVNG Administration Buspirone HCl 15 mg 05/04/19 10:00 05/15/19 23:00 Buspar PO 15 mg BID KVNG Administration Diltiazem HCl 60 mg 05/15/19 18:00 05/16/19 06:59 Cardizem PO 60 mg Q6HR KVNG Administration Famotidine 20 mg 05/10/19 10:00 05/15/19 09:50 Pepcid IV 20 mg DAILY KVNG Administration Fentanyl 50 mcg 05/11/19 10:00 05/15/19 18:03 Sublimaze IV 50 mcg Q2H PRN Administration AGITATION Hydralazine HCl 5 mg 05/01/19 22:47 05/14/19 18:09 Apresoline IV 5 mg Q6HR PRN Administration SBP > 160 AND/OR DBP > 100 Hydrophilic Ointment 1 applic 05/04/19 09:42 Vaseline Lip Therapy TP Q2HR PRN Dry Lips Sodium Chloride 100 mls @ 999 mls/hr 04/30/19 13:29 Nacl 0.9% IV ALBINO PRN Hypotension Sodium Chloride 100 mls @ 999 mls/hr 05/14/19 13:53 Nacl 0.9% IV ALBINO PRN Hypotension Insulin Glargine 10 units 05/14/19 22:00 05/15/19 23:01 Lantus SUB-Q 10 units QHS KVNG Administration Insulin Human Lispro 0 unit 05/05/19 18:00 05/16/19 07:01 Humalog SUB-Q 6 unit Q6HR KVNG Administration Protocol Lorazepam 1 mg 05/02/19 11:08 05/15/19 08:10 Ativan IV 1 mg Q4H PRN Administration Anxiety Methylprednisolone Sodium Succinate 40 mg 05/14/19 12:00 05/16/19 07:00 Solu-Medrol IV 40 mg Q8H KVNG Administration Metoclopramide HCl 5 mg 05/10/19 14:00 05/16/19 01:21 Reglan IV 5 mg Q12H KVNG Administration Montelukast Sodium 10 mg 04/30/19 19:00 05/15/19 17:35 Singulair PO 10 mg QPM KVNG Administration Multi-Ingred Cream/Lotion/Oil/Oint 1 applic 05/04/19 09:42 Artificial Tears Ophth Oint OU Q4HR PRN Dry Eye(s) Pravastatin Sodium 40 mg 04/30/19 22:00 05/15/19 23:01 Pravachol PO 40 mg QHS KVNG Administration Simple Syrup 15 ml 05/04/19 14:58 Simple Syrup FEEDTUBE PRN PRN Hypoglycemia Simple Syrup 30 ml 05/04/19 14:58 Simple Syrup FEEDTUBE PRN PRN Hypoglycemia Sodium Bicarbonate 325 mg 05/04/19 14:58 Sodium Bicarbonate FEEDTUBE PRN PRN For Clogged Feeding Tube Sodium Chloride 10 ml 04/30/19 22:00 05/15/19 17:11 Sodium Chloride Flush Syringe 10 Ml IV Not Given BID KVNG Sodium Chloride 10 ml 04/30/19 17:44 05/15/19 09:53 Sodium Chloride Flush Syringe 10 Ml IV 10 ml PRN PRN Administration LINE FLUSH Nutrition/Malnutrition Assess - Dietary Evaluation Nutrition/Malnutrition Findings: Nutrition Notes Start: 05/04/19 11:09 Freq: Status: Active Protocol: Document 05/14/19 14:49 LM (Rec: 05/14/19 14:53 LM [email or web address]) Nutrition Notes Initial or Follow up Reassessment Current Diet Nepro 1.8 at 30ml/hr Labs/Tests BUN 79 Cr 5.7 BG 243 Pertinent Medications Reviewed Height 5 ft Weight 46.8 kg [place] Body Weight (kg) 45.45 BMI 20.1 Subjective/Other Information Per RN, pt was restarted last night via PEG and is running at 20 ml/hr and tolerating. RN stated he will increase to 30 ml/hr today. 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 Yes Is Patient Ambulatory and/or Out of Bed No REE-([place]-St. Jeor-confined to bed) 1062.132 Calculation [facility] Additional Notes Protein: 59-98g (1.2-2g/kg) Fluid: per Nutrition Intervention Change Diet Order: TF Nutrition Support: Nepro 1.8 at 30 ml/hr Flush 130 ml q4h Kcal 1,296 Protein (gm) 58 Fluid (mL) 523 Goal #1 Meet at least 80% of kcal and protein needs via TF Anticipated Discharge Needs: Unable to determine at this time Follow-Up By: 05/21/19 Additional Comments F/U for TF tolerance
[2019-05-16] MEDS: BUDESONIDE 0.5 MG/2 ML NEBU IH SCH ×2 (09:24→20:07)
[2019-05-16] MEDS: IPRATROPIUM/ALBUTEROL SULFATE 3 ML AMPUL.NEB IH SCH ×3 (09:24→20:07)
[2019-05-16] MEDS: ARFORMOTEROL 15 MCG/2 ML NEBU IH SCH ×2 (09:24→20:07)
[2019-05-16] MEDS: busPIRone 10 MG TAB PO SCH ×2 (10:34→22:44)
[2019-05-16] MEDS: FAMOTIDINE 20 MG/2 ML INJ IV SCH (10:34)
[2019-05-16] MEDS: ASPIRIN 81 MG TAB CHEW PO SCH (10:34)
[2019-05-16] MEDS: AMIODARONE 200 MG TAB PO SCH (10:34)
[2019-05-16] MEDS: hydrALAZINE 20 MG/1 ML INJ IV PRN (10:35)
--- NOTE | 2019-05-16 11:31 | Progress Note ---
Assessment and Plan Paroxysmal Afib -currently in sinus rhythm -on amiodarone and diltiazem for suppression Respiratory failure -s/p vent to trach ESRD on hemodialysis Severe COPD Hx of coronary artery disease s/p CABG in 2006 Mild cardiomyopathy echocardiogram done 01/2018 reports an ejection fraction of 40-45%. echocardiogram 12/2018 reports an ejection fraction 45-50%. MPI 12/2018 - fixed basal lateral wall defect, no ischemia Hyperlipidemia History of DVT -not on anticoagulation secondary to hematuria Htn Recommendations: Continue amiodarone suppression of atrial fibrillation. Change to Cardizem CD prior to discharge Add PO hydralazine Patient is not a candidate for skilled nursing oral anticoagulation or aggressive cardiac therapies. Otherwise, conservative cardiac management. Subjective Date of service: 05/16/19 Principal diagnosis: Acute resp failure,COPd exacerbation Interval history: No acute events - BP remains elevated Objective Vital Signs Temp Pulse Pulse Pulse Pulse Pulse Resp 05/16/19 10:35 104 H 05/16/19 09:24 103 H 97 H 05/16/19 08:00 98.6 F 05/16/19 07:00 103 H 23 05/16/19 06:59 105 H 05/16/19 06:00 103 H 24 05/16/19 05:00 110 H 25 H 05/16/19 04:25 111 H 05/16/19 04:00 111 H 117 H 25 H 05/16/19 03:42 98.8 F 05/16/19 03:25 05/16/19 03:00 106 H 22 05/16/19 02:00 106 H 25 H 05/16/19 01:00 104 H 19 05/16/19 00:23 106 H 05/16/19 00:00 108 H 112 H 26 H 05/15/19 23:56 98.6 F 05/15/19 23:40 109 H 24 05/15/19 23:04 116 H 05/15/19 23:00 111 H 25 H 05/15/19 22:00 111 H 26 H 05/15/19 21:00 108 H 24 05/15/19 20:54 125 H 05/15/19 20:51 109 H 05/15/19 20:00 98.9 F 108 H 110 H 27 H 05/15/19 19:00 101 H 22 05/15/19 18:00 111 H 23 05/15/19 17:18 111 H 05/15/19 17:00 114 H 27 H 05/15/19 16:00 98.6 F 108 H 108 H 108 H 29 H 05/15/19 15:09 122 H 05/15/19 15:00 104 H 24 05/15/19 14:00 110 H 24 05/15/19 13:30 96 H 24 05/15/19 13:00 109 H 25 H 05/15/19 12:30 111 H 28 H 05/15/19 12:26 109 H 05/15/19 12:00 97.9 F 119 H 127 H 118 H 25 H Resp Resp Resp BP Pulse Ox Pulse Ox 05/16/19 10:35 183/93 05/16/19 09:24 24 172/91 100 100 05/16/19 08:00 05/16/19 07:00 193/77 97 05/16/19 06:59 194/77 05/16/19 06:00 158/74 100 05/16/19 05:00 158/74 98 05/16/19 04:25 169/70 100 05/16/19 04:00 173/89 96 05/16/19 03:42 05/16/19 03:25 100 05/16/19 03:00 169/70 99 05/16/19 02:00 167/63 96 05/16/19 01:00 176/86 95 05/16/19 00:23 176/101 99 05/16/19 00:00 176/101 96 05/15/19 23:56 05/15/19 23:40 175/95 99 05/15/19 23:04 175/95 05/15/19 23:00 175/95 96 05/15/19 22:00 180/84 100 05/15/19 21:00 180/84 97 05/15/19 20:54 25 H 05/15/19 20:51 168/93 100 05/15/19 20:00 168/93 100 05/15/19 19:00 190/88 100 05/15/19 18:00 32 H 173/99 99 05/15/19 17:18 180/94 05/15/19 17:00 180/94 96 05/15/19 16:00 135/103 99 05/15/19 15:09 135/103 100 05/15/19 15:00 165/100 99 05/15/19 14:00 24 165/100 98 05/15/19 13:30 184/86 99 05/15/19 13:00 184/86 99 96 05/15/19 12:30 196/103 100 05/15/19 12:26 180/86 05/15/19 12:00 184/86 100 - Physical Examination General: No Apparent Distress Neck: Positive: Other (vent to trach) Cardiac: Positive: Reg Rate and Rhythm Lungs: Positive: Other (trach in place, on vent) Abdomen: Positive: Soft, Active Bowel Sounds Extremities: Present: edema - Imaging and Cardiology EKG: report reviewed
--- NOTE | 2019-05-16 12:19 | Progress Note ---
Subjective Principal diagnosis: Acute resp failure,COPd exacerbation Interval history: Patient was seen today for follow-up of multiple renal related issues resting comfortably no acute distress Has had dialysis on Friday Past medical history: Reviewed Family history: Reviewed Social history: Reviewed Allergies: Reviewed Physical examination: Vitals: Reviewed HEENT: No pallor or icterus oral mucosa moist Neck: Supple no JVD no thyromegaly Chest: bilateral few basilar crackles Heart: Regular rate and rhythm S1-S2 heard no S3-S4 Abdomen: Soft nontender no voluntary guarding rigidity rebound Extremity: Dry skin less than 1+ peripheral edema Labs and x-rays: Reviewed from today Assessment and plan ESRD continue with hemodialysis Friday and Friday Mild hypokalemia check labs tomorrow basic metabolic profile as well as magnesium level Mild hyponatremia to follow sodium 135 Metabolic acidosis last bicarb 21 Anemia in end-stage renal disease last hemoglobin 9.2, erythropoietin periodically Multiple underlying comorbidities, including atrial fibrillation, respiratory failure, status post tracheotomy, severe COPD, coronary artery bypass graft mild cardiomyopathy ejection fraction 45% DVT hypertension prognosis remains guarded to poor We'll continue to follow and make recommendation for renal standpoint Objective - Vital Signs Vital signs: Vital Signs - 12hr 05/16/19 05/16/19 05/16/19 00:23 01:00 02:00 Temperature Pulse Rate 106 H 104 H 106 H Pulse Rate [ Anterior Bilateral Throughout] Pulse Rate [ From Monitor] Respiratory 19 25 H Rate Respiratory Rate [Anterior Bilateral Throughout] Blood Pressure 176/101 176/86 167/63 O2 Sat by Pulse 99 95 96 Oximetry O2 Sat by Pulse Oximetry [ Assessment] 05/16/19 05/16/19 05/16/19 03:00 03:25 03:42 Temperature 98.8 F Pulse Rate 106 H Pulse Rate [ Anterior Bilateral Throughout] Pulse Rate [ From Monitor] Respiratory 22 Rate Respiratory Rate [Anterior Bilateral Throughout] Blood Pressure 169/70 O2 Sat by Pulse 99 Oximetry O2 Sat by Pulse 100 Oximetry [ Assessment] 05/16/19 05/16/19 05/16/19 04:00 04:25 05:00 Temperature Pulse Rate 111 H 111 H 110 H Pulse Rate [ Anterior Bilateral Throughout] Pulse Rate [ 117 H From Monitor] Respiratory 25 H 25 H Rate Respiratory Rate [Anterior Bilateral Throughout] Blood Pressure 173/89 169/70 158/74 O2 Sat by Pulse 96 100 98 Oximetry O2 Sat by Pulse Oximetry [ Assessment] 05/16/19 05/16/19 05/16/19 06:00 06:59 07:00 Temperature Pulse Rate 103 H 105 H 103 H Pulse Rate [ Anterior Bilateral Throughout] Pulse Rate [ From Monitor] Respiratory 24 23 Rate Respiratory Rate [Anterior Bilateral Throughout] Blood Pressure 158/74 194/77 193/77 O2 Sat by Pulse 100 97 Oximetry O2 Sat by Pulse Oximetry [ Assessment] 05/16/19 05/16/19 05/16/19 08:00 09:00 09:24 Temperature 98.6 F Pulse Rate 105 H 96 H 103 H Pulse Rate [ 97 H Anterior Bilateral Throughout] Pulse Rate [ 96 H From Monitor] Respiratory 26 H 24 Rate Respiratory 24 Rate [Anterior Bilateral Throughout] Blood Pressure 187/90 172/91 172/91 O2 Sat by Pulse 97 100 100 Oximetry O2 Sat by Pulse 100 Oximetry [ Assessment] 05/16/19 05/16/19 05/16/19 10:00 10:35 11:00 Temperature Pulse Rate 101 H 104 H 112 H Pulse Rate [ Anterior Bilateral Throughout] Pulse Rate [ From Monitor] Respiratory 24 25 H Rate Respiratory Rate [Anterior Bilateral Throughout] Blood Pressure 183/93 183/93 156/81 O2 Sat by Pulse 97 Oximetry O2 Sat by Pulse Oximetry [ Assessment] 05/16/19 11:57 Temperature Pulse Rate Pulse Rate [ Anterior Bilateral Throughout] Pulse Rate [ 102 H From Monitor] Respiratory 24 Rate Respiratory Rate [Anterior Bilateral Throughout] Blood Pressure O2 Sat by Pulse 100 Oximetry O2 Sat by Pulse Oximetry [ Assessment] - Lab 05/15/19 07:15 05/15/19 07:15 Most recent lab results ABG pH 7.388 pH Units (7.350-7.450) 05/12/19 04:36 ABG pCO2 38.5 mm Hg 05/12/19 04:36 ABG pO2 79.4 mm Hg (80.0-90.0) L 05/12/19 04:36 ABG HCO3 22.7 mmol/L (20.0-26.0) 05/12/19 04:36 ABG O2 Saturation 96.0 % (95.0-99.0) 05/12/19 04:36 Calcium 9.3 mg/dL (8.4-10.2) 05/15/19 07:15 Phosphorus 12.90 mg/dL (2.5-4.5) H 05/03/19 09:44 Magnesium 1.50 mg/dL (1.7-2.3) L 05/11/19 13:00 Medications & Allergies - Medications Allergies/Adverse Reactions: Allergies latex Allergy (Verified 02/05/19 13:51) Hives milk Allergy (Verified 02/05/19 13:51) Rash Home Medications: Home Medications Medication Instructions Recorded Confirmed Last Taken Type Metoprolol [Lopressor TAB] 50 mg PO BID #60 tablet 01/27/18 05/03/19 04/11/19 Rx Montelukast [Singulair] 10 mg PO QPM #30 tablet 01/27/18 05/03/19 04/11/19 Rx Pravastatin [Pravachol] 40 mg PO QHS #30 tablet 01/27/18 05/03/19 04/11/19 Rx allopurinoL [Zyloprim] 100 mg PO QDAY #30 tablet 01/27/18 05/03/19 04/11/19 Rx Famotidine [Pepcid] 20 mg PO BID 06/17/18 05/03/19 04/11/19 History Fluticasone/Vilanterol [Breo 1 each IH BID #1 blst.w.dev 12/31/18 05/03/19 04/11/19 Rx Ellipta 200-25 Mcg INH] Tiotropium [place] [Spiriva 4 gm IH DAILY #1 mist.inhal 12/31/18 05/03/19 04/11/19 Rx Respimat] Aspirin EC [Halfprin EC] 81 mg PO QDAY #30 tablet.dr 02/18/19 05/03/19 04/11/19 Rx ISOSORBIDE MONOnitrate [Imdur ER] 30 mg PO QDAY #30 tablet 02/18/19 05/03/19 Unknown Rx glipiZIDE [Glucotrol] 5 mg PO QDAY #30 tablet 02/18/19 05/03/19 Unknown Rx ALBUTEROL NEB's [Proventil 0.083% 2.5 mg IH Q4HRT PRN #30 nebu 04/15/19 05/03/19 Unknown Rx NEBS] Furosemide [Lasix] 20 mg PO QDAY #30 tablet 04/15/19 05/03/19 Unknown Rx Ipratropium/Albuterol Sulfate 2 puff IH BID #1 unit 04/15/19 05/03/19 Unknown Rx [Combivent Respimat] Olanzapine/Fluoxetine HCl [Symbyax 1 each PO QHS #30 capsule 04/15/19 05/03/19 Unknown Rx 3-25 mg] Sodium Bicarbonate 650 mg PO BID #60 tablet 04/15/19 05/03/19 Unknown Rx amLODIPine 10 mg PO DAILY #30 tablet 04/15/19 05/03/19 Unknown Rx cefUROXime [Ceftin] 250 mg PO Q12H #14 tablet 04/15/19 05/03/19 Unknown Rx predniSONE [Deltasone] 1 tab PO QDAY #91 tab 04/15/19 05/03/19 Unknown Rx traMADoL [Ultram 50 MG tab] 50 mg PO Q8H PRN #15 tab 04/15/19 05/03/19 04/11/19 Rx Active Medications: Generic Name Dose Route Start Last Admin Trade Name Freq PRN Reason Stop Dose Admin Acetaminophen 650 mg 04/30/19 17:44 05/05/19 15:22 Tylenol PO 650 mg Q4H PRN Administration Pain MILD(1-3)/Fever >100.5/HERRMANN Albuterol 2.5 mg 04/30/19 18:32 05/02/19 04:49 Proventil IH 2.5 mg Q3H PRN Administration Shortness Of Breath Albuterol/Ipratropium 1 ampul 05/11/19 14:00 05/16/19 09:24 Duoneb *Not For Prn Use* IH 1 ampul TIDRT KVNG Administration Amiodarone HCl 200 mg 05/12/19 10:00 05/16/19 10:34 Cordarone PO 200 mg QDAY KVNG Administration Lipase/Protease/Amylase 1 each 05/04/19 14:58 Pancrejessica Gould 10,500 Unit FEEDTUBE PRN PRN For Clogged Feeding Tube Arformoterol Tartrate 15 mcg 05/01/19 08:00 05/16/19 09:24 Brovankinjal Nebu IH 15 mcg Q12HRT KVNG Administration Aspirin 81 mg 05/11/19 10:00 05/16/19 10:34 Baby Aspirin PO 81 mg QDAY KVNG Administration Budesonide 0.5 mg 05/03/19 11:00 05/16/19 09:24 Pulmicort IH 0.5 mg Q12HRT KVNG Administration Buspirone HCl 15 mg 05/04/19 10:00 05/16/19 10:34 Buspar PO 15 mg BID KVNG Administration Diltiazem HCl 60 mg 05/15/19 18:00 05/16/19 06:59 Cardizem PO 60 mg Q6HR KVNG Administration Famotidine 20 mg 05/10/19 10:00 05/16/19 10:34 Pepcid IV 20 mg DAILY KVNG Administration Fentanyl 50 mcg 05/11/19 10:00 05/15/19 18:03 Sublimaze IV 50 mcg Q2H PRN Administration AGITATION Hydralazine HCl 5 mg 05/01/19 22:47 05/16/19 10:35 Apresoline IV 5 mg Q6HR PRN Administration SBP > 160 AND/OR DBP > 100 Hydralazine HCl 50 mg 05/16/19 14:00 Apresoline PO Q8HR KVNG Hydrophilic Ointment 1 applic 05/04/19 09:42 Vaseline Lip Therapy TP Q2HR PRN Dry Lips Sodium Chloride 100 mls @ 999 mls/hr 04/30/19 13:29 Nacl 0.9% IV ALBINO PRN Hypotension Sodium Chloride 100 mls @ 999 mls/hr 05/14/19 13:53 Nacl 0.9% IV ALBINO PRN Hypotension Insulin Glargine 10 units 05/14/19 22:00 05/15/19 23:01 Lantus SUB-Q 10 units QHS KVNG Administration Insulin Human Lispro 0 unit 05/05/19 18:00 05/16/19 07:01 Humalog SUB-Q 6 unit Q6HR KVNG Administration Protocol Lorazepam 1 mg 05/02/19 11:08 05/15/19 08:10 Ativan IV 1 mg Q4H PRN Administration Anxiety Methylprednisolone Sodium Succinate 40 mg 05/14/19 12:00 05/16/19 07:00 Solu-Medrol IV 40 mg Q8H VKNG Administration Metoclopramide HCl 5 mg 05/10/19 14:00 05/16/19 01:21 Reglan IV 5 mg Q12H KVNG Administration Montelukast Sodium 10 mg 04/30/19 19:00 05/15/19 17:35 Singulair PO 10 mg QPM KVNG Administration Multi-Ingred Cream/Lotion/Oil/Oint 1 applic 05/04/19 09:42 Artificial Tears Ophth Oint OU Q4HR PRN Dry Eye(s) Pravastatin Sodium 40 mg 04/30/19 22:00 05/15/19 23:01 Pravachol PO 40 mg QHS KVNG Administration Simple Syrup 15 ml 05/04/19 14:58 Simple Syrup FEEDTUBE PRN PRN Hypoglycemia Simple Syrup 30 ml 05/04/19 14:58 Simple Syrup FEEDTUBE PRN PRN Hypoglycemia Sodium Bicarbonate 325 mg 05/04/19 14:58 Sodium Bicarbonate FEEDTUBE PRN PRN For Clogged Feeding Tube Sodium Chloride 10 ml 04/30/19 22:00 05/16/19 10:35 Sodium Chloride Flush Syringe 10 Ml IV 10 ml BID KVNG Administration Sodium Chloride 10 ml 04/30/19 17:44 05/15/19 09:53 Sodium Chloride Flush Syringe 10 Ml IV 10 ml PRN PRN Administration LINE FLUSH
--- NOTE | 2019-05-16 13:00 | Progress Note ---
Assessment and Plan 78 y/o female with acute on chronic respiratory failure secondary to volume overload, resolved. 1. Continue steroids at 40q8, will start to wean this dose on Friday. 2. Diprovan now off, only PRN meds available if needed. 3. Continue HD per renal 4. Started Buspar prior to intubation, will continue. Patient is not on Klonopin 5. Midline placement, done 6. NG out and peg in, working well. 7. LTACH pending. Patient has been in intensive care for 16 days. Spoke with CM. 8. Appreciate cards help with additional blood meds CCT 31 minutes. Subjective Date of service: 05/16/19 Principal diagnosis: Acute resp failure,COPd exacerbation Interval history: Has not been tried on PSV yet today. BP is better with hydralazine, appreciate cards recs. Patient is not on sedation, sleeps majority of day but will respond when spoken to. Remainder is negative. Objective Vital Signs - 12hr 05/16/19 05/16/19 05/16/19 01:00 02:00 03:00 Temperature Pulse Rate 104 H 106 H 106 H Pulse Rate [ Anterior Bilateral Throughout] Pulse Rate [ From Monitor] Respiratory 19 25 H 22 Rate Respiratory Rate [Anterior Bilateral Throughout] Blood Pressure 176/86 167/63 169/70 O2 Sat by Pulse 95 96 99 Oximetry O2 Sat by Pulse Oximetry [ Assessment] 05/16/19 05/16/19 05/16/19 03:25 03:42 04:00 Temperature 98.8 F Pulse Rate 111 H Pulse Rate [ Anterior Bilateral Throughout] Pulse Rate [ 117 H From Monitor] Respiratory 25 H Rate Respiratory Rate [Anterior Bilateral Throughout] Blood Pressure 173/89 O2 Sat by Pulse 96 Oximetry O2 Sat by Pulse 100 Oximetry [ Assessment] 05/16/19 05/16/19 05/16/19 04:25 05:00 06:00 Temperature Pulse Rate 111 H 110 H 103 H Pulse Rate [ Anterior Bilateral Throughout] Pulse Rate [ From Monitor] Respiratory 25 H 24 Rate Respiratory Rate [Anterior Bilateral Throughout] Blood Pressure 169/70 158/74 158/74 O2 Sat by Pulse 100 98 100 Oximetry O2 Sat by Pulse Oximetry [ Assessment] 05/16/19 05/16/19 05/16/19 06:59 07:00 08:00 Temperature 98.6 F Pulse Rate 105 H 103 H 105 H Pulse Rate [ Anterior Bilateral Throughout] Pulse Rate [ 96 H From Monitor] Respiratory 23 26 H Rate Respiratory Rate [Anterior Bilateral Throughout] Blood Pressure 194/77 193/77 187/90 O2 Sat by Pulse 97 97 Oximetry O2 Sat by Pulse Oximetry [ Assessment] 05/16/19 05/16/19 05/16/19 09:00 09:24 10:00 Temperature Pulse Rate 96 H 103 H 101 H Pulse Rate [ 97 H Anterior Bilateral Throughout] Pulse Rate [ From Monitor] Respiratory 24 24 Rate Respiratory 24 Rate [Anterior Bilateral Throughout] Blood Pressure 172/91 172/91 183/93 O2 Sat by Pulse 100 100 97 Oximetry O2 Sat by Pulse 100 Oximetry [ Assessment] 05/16/19 05/16/19 05/16/19 10:35 11:00 11:57 Temperature Pulse Rate 104 H 112 H Pulse Rate [ Anterior Bilateral Throughout] Pulse Rate [ 102 H From Monitor] Respiratory 25 H 24 Rate Respiratory Rate [Anterior Bilateral Throughout] Blood Pressure 183/93 156/81 O2 Sat by Pulse 100 Oximetry O2 Sat by Pulse Oximetry [ Assessment] 05/16/19 05/16/19 12:00 12:43 Temperature Pulse Rate 108 H 110 H Pulse Rate [ Anterior Bilateral Throughout] Pulse Rate [ From Monitor] Respiratory Rate Respiratory Rate [Anterior Bilateral Throughout] Blood Pressure 149/76 O2 Sat by Pulse Oximetry O2 Sat by Pulse Oximetry [ Assessment] Constitutional: other (Sedated and orally intubated) Eyes: non-icteric ENT: other (orally intubated and sedated.) Neck: supple Effort: mildly labored Ascultation: Bilateral: diminished breath sounds, rales, rhonchi Percussion: Bilateral: not dull Cardiovascular: other (sinus tach) Gastrointestinal: normoactive bowel sounds Neurologic: unable to assess CBC and BMP: 05/15/19 07:15 05/15/19 07:15 ABG, PT/INR, D-dimer: ABG ABG pH 7.388 pH Units (7.350-7.450) 05/12/19 04:36 ABG pCO2 38.5 mm Hg 05/12/19 04:36 ABG pO2 79.4 mm Hg (80.0-90.0) L 05/12/19 04:36 ABG O2 Saturation 96.0 % (95.0-99.0) 05/12/19 04:36 PT/INR, D-dimer PT 14.7 Sec. (12.2-14.9) 05/13/19 12:01 INR 1.13 (0.87-1.13) 05/13/19 12:01 Abnormal lab findings: Abnormal Labs 04/30/19 04/30/19 04/30/19 10:12 11:32 11:32 WBC RBC Hgb Hct RDW 17.1 H Plt Count 84 L Lymph % (Auto) 10.9 L [place] % (Auto) 7.4 H Lymph # 0.8 L Seg Neutrophils % 80.6 H Seg Neuts % (Manual) Lymphocytes % (Manual) Nucleated RBC % Seg Neutrophils # Seg Neutrophils # Man Lymphocytes # (Manual) Monocytes # (Manual) PT 28.3 H INR 2.59 H APTT ABG pH 7.347 L ABG pO2 221.9 H ABG HCO3 ABG O2 Saturation 99.3 H ABG Base Excess -2.2 L ABG Hemoglobin Oxyhemoglobin Sodium Potassium Chloride Carbon Dioxide BUN Creatinine Glucose POC Glucose Phosphorus Magnesium Troponin T NT-Pro-B Natriuret Pep Triglycerides Cholesterol LDL Cholesterol Direct HDL Cholesterol TSH Free T4 04/30/19 04/30/19 04/30/19 14:20 15:23 18:05 WBC RBC Hgb Hct RDW Plt Count Lymph % (Auto) [place] % (Auto) Lymph # Seg Neutrophils % Seg Neuts % (Manual) Lymphocytes % (Manual) Nucleated RBC % Seg Neutrophils # Seg Neutrophils # Man Lymphocytes # (Manual) Monocytes # (Manual) PT INR APTT 37.2 H ABG pH ABG pO2 79.2 L ABG HCO3 ABG O2 Saturation ABG Base Excess ABG Hemoglobin Oxyhemoglobin 94.4 L Sodium 146 H Potassium 3.2 L Chloride Carbon Dioxide BUN 39 H Creatinine 2.6 H Glucose POC Glucose Phosphorus Magnesium Troponin T 0.117 H* NT-Pro-B Natriuret Pep 16583 H Triglycerides 178 H Cholesterol 303 H LDL Cholesterol Direct 190 H HDL Cholesterol 105 H TSH Free T4 04/30/19 05/01/19 05/01/19 22:20 00:48 04:46 WBC RBC Hgb Hct RDW Plt Count Lymph % (Auto) [place] % (Auto) Lymph # Seg Neutrophils % Seg Neuts % (Manual) Lymphocytes % (Manual) Nucleated RBC % Seg Neutrophils # Seg Neutrophils # Man Lymphocytes # (Manual) Monocytes # (Manual) PT INR APTT ABG pH ABG pO2 98.3 H ABG HCO3 ABG O2 Saturation ABG Base Excess ABG Hemoglobin Oxyhemoglobin Sodium Potassium Chloride Carbon Dioxide BUN Creatinine Glucose POC Glucose 108 H 142 H Phosphorus Magnesium Troponin T NT-Pro-B Natriuret Pep Triglycerides Cholesterol LDL Cholesterol Direct HDL Cholesterol TSH Free T4 05/01/19 05/01/19 05/01/19 12:43 12:43 13:27 WBC RBC Hgb Hct RDW 16.4 H Plt Count 132 L Lymph % (Auto) [place] % (Auto) Lymph # Seg Neutrophils % Seg Neuts % (Manual) 95.0 H Lymphocytes % (Manual) 3.0 L Nucleated RBC % Seg Neutrophils # Seg Neutrophils # Man Lymphocytes # (Manual) 0.2 L Monocytes # (Manual) PT INR APTT ABG pH ABG pO2 ABG HCO3 ABG O2 Saturation ABG Base Excess ABG Hemoglobin Oxyhemoglobin Sodium Potassium Chloride 95.1 L Carbon Dioxide 21 L BUN 29 H Creatinine 3.2 H Glucose 137 H POC Glucose 114 H Phosphorus Magnesium Troponin T NT-Pro-B Natriuret Pep Triglycerides Cholesterol LDL Cholesterol Direct HDL Cholesterol TSH Free T4 05/01/19 05/02/19 05/02/19 18:41 00:01 05:40 WBC RBC Hgb Hct RDW Plt Count Lymph % (Auto) [place] % (Auto) Lymph # Seg Neutrophils % Seg Neuts % (Manual) Lymphocytes % (Manual) Nucleated RBC % Seg Neutrophils # Seg Neutrophils # Man Lymphocytes # (Manual) Monocytes # (Manual) PT INR APTT ABG pH ABG pO2 ABG HCO3 ABG O2 Saturation ABG Base Excess ABG Hemoglobin Oxyhemoglobin Sodium Potassium Chloride Carbon Dioxide BUN Creatinine Glucose POC Glucose 127 H 110 H 135 H Phosphorus Magnesium Troponin T NT-Pro-B Natriuret Pep Triglycerides Cholesterol LDL Cholesterol Direct HDL Cholesterol TSH Free T4 05/02/19 05/02/19 05/03/19 13:06 19:14 09:44 WBC RBC Hgb Hct RDW 17.1 H Plt Count Lymph % (Auto) [place] % (Auto) Lymph # Seg Neutrophils % Seg Neuts % (Manual) Lymphocytes % (Manual) Nucleated RBC % Seg Neutrophils # Seg Neutrophils # Man Lymphocytes # (Manual) Monocytes # (Manual) PT INR APTT ABG pH ABG pO2 ABG HCO3 ABG O2 Saturation ABG Base Excess ABG Hemoglobin Oxyhemoglobin Sodium Potassium Chloride Carbon Dioxide BUN Creatinine Glucose POC Glucose 152 H 117 H Phosphorus Magnesium Troponin T NT-Pro-B Natriuret Pep Triglycerides Cholesterol LDL Cholesterol Direct HDL Cholesterol TSH Free T4 05/03/19 05/03/19 05/03/19 09:44 10:13 18:45 WBC RBC Hgb Hct RDW Plt Count Lymph % (Auto) [place] % (Auto) Lymph # Seg Neutrophils % Seg Neuts % (Manual) Lymphocytes % (Manual) Nucleated RBC % Seg Neutrophils # Seg Neutrophils # Man Lymphocytes # (Manual) Monocytes # (Manual) PT INR APTT ABG pH 7.166 L* ABG pO2 ABG HCO3 ABG O2 Saturation 94.5 L ABG Base Excess -8.8 L ABG Hemoglobin 11.6 L Oxyhemoglobin 92.4 L Sodium Potassium 6.2 H* D Chloride 93.2 L Carbon Dioxide 13 L D BUN 93 H Creatinine 7.2 H D Glucose 138 H POC Glucose 128 H Phosphorus 12.90 H Magnesium 2.70 H Troponin T NT-Pro-B Natriuret Pep Triglycerides Cholesterol LDL Cholesterol Direct HDL Cholesterol TSH Free T4 05/03/19 05/04/19 05/04/19 19:40 01:04 03:51 WBC 11.2 H RBC Hgb Hct RDW 16.6 H Plt Count Lymph % (Auto) [place] % (Auto) Lymph # Seg Neutrophils % Seg Neuts % (Manual) Lymphocytes % (Manual) Nucleated RBC % Seg Neutrophils # Seg Neutrophils # Man Lymphocytes # (Manual) Monocytes # (Manual) PT INR APTT ABG pH ABG pO2 ABG HCO3 ABG O2 Saturation ABG Base Excess ABG Hemoglobin Oxyhemoglobin Sodium Potassium Chloride 92.7 L Carbon Dioxide BUN 26 H Creatinine 3.2 H D Glucose 129 H POC Glucose 134 H Phosphorus Magnesium Troponin T NT-Pro-B Natriuret Pep Triglycerides Cholesterol LDL Cholesterol Direct HDL Cholesterol TSH Free T4 05/04/19 05/04/19 05/04/19 03:51 06:05 12:33 WBC RBC Hgb Hct RDW Plt Count Lymph % (Auto) [place] % (Auto) Lymph # Seg Neutrophils % Seg Neuts % (Manual) Lymphocytes % (Manual) Nucleated RBC % Seg Neutrophils # Seg Neutrophils # Man Lymphocytes # (Manual) Monocytes # (Manual) PT INR APTT ABG pH ABG pO2 ABG HCO3 ABG O2 Saturation ABG Base Excess ABG Hemoglobin Oxyhemoglobin Sodium Potassium Chloride 92.5 L Carbon Dioxide 19 L BUN 39 H Creatinine 4.3 H Glucose 148 H POC Glucose 138 H 190 H Phosphorus Magnesium Troponin T NT-Pro-B Natriuret Pep Triglycerides Cholesterol LDL Cholesterol Direct HDL Cholesterol TSH Free T4 05/04/19 05/04/19 05/04/19 18:25 23:57 Unknown WBC RBC Hgb Hct RDW Plt Count Lymph % (Auto) [place] % (Auto) Lymph # Seg Neutrophils % Seg Neuts % (Manual) Lymphocytes % (Manual) Nucleated RBC % Seg Neutrophils # Seg Neutrophils # Man Lymphocytes # (Manual) Monocytes # (Manual) PT INR APTT ABG pH ABG pO2 ABG HCO3 ABG O2 Saturation ABG Base Excess -3.4 L ABG Hemoglobin Oxyhemoglobin 94.5 L Sodium Potassium Chloride Carbon Dioxide BUN Creatinine Glucose POC Glucose 190 H 119 H Phosphorus Magnesium Troponin T NT-Pro-B Natriuret Pep Triglycerides Cholesterol LDL Cholesterol Direct HDL Cholesterol TSH Free T4 05/05/19 05/05/19 05/05/19 03:45 06:09 12:07 WBC RBC Hgb Hct RDW Plt Count Lymph % (Auto) [place] % (Auto) Lymph # Seg Neutrophils % Seg Neuts % (Manual) Lymphocytes % (Manual) Nucleated RBC % Seg Neutrophils # Seg Neutrophils # Man Lymphocytes # (Manual) Monocytes # (Manual) PT INR APTT ABG pH 7.456 H ABG pO2 64.8 L ABG HCO3 ABG O2 Saturation 93.6 L ABG Base Excess ABG Hemoglobin Oxyhemoglobin 91.4 L Sodium Potassium Chloride Carbon Dioxide BUN Creatinine Glucose POC Glucose 173 H 260 H Phosphorus Magnesium Troponin T NT-Pro-B Natriuret Pep Triglycerides Cholesterol LDL Cholesterol Direct HDL Cholesterol TSH Free T4 05/05/19 05/06/19 05/06/19 18:34 00:49 04:20 WBC 12.8 H RBC Hgb Hct RDW 16.9 H Plt Count Lymph % (Auto) [place] % (Auto) Lymph # Seg Neutrophils % Seg Neuts % (Manual) 93.0 H Lymphocytes % (Manual) 2.0 L Nucleated RBC % 1.0 H Seg Neutrophils # Seg Neutrophils # Man 11.9 H Lymphocytes # (Manual) 0.3 L Monocytes # (Manual) PT INR APTT ABG pH ABG pO2 ABG HCO3 ABG O2 Saturation ABG Base Excess ABG Hemoglobin Oxyhemoglobin Sodium Potassium Chloride Carbon Dioxide BUN Creatinine Glucose POC Glucose 334 H 230 H Phosphorus Magnesium Troponin T NT-Pro-B Natriuret Pep Triglycerides Cholesterol LDL Cholesterol Direct HDL Cholesterol TSH Free T4 05/06/19 05/06/19 05/06/19 04:20 04:20 05:39 WBC RBC Hgb Hct RDW Plt Count Lymph % (Auto) [place] % (Auto) Lymph # Seg Neutrophils % Seg Neuts % (Manual) Lymphocytes % (Manual) Nucleated RBC % Seg Neutrophils # Seg Neutrophils # Man Lymphocytes # (Manual) Monocytes # (Manual) PT INR APTT ABG pH ABG pO2 62.9 L ABG HCO3 ABG O2 Saturation 92.5 L ABG Base Excess ABG Hemoglobin Oxyhemoglobin 90.5 L Sodium Potassium Chloride 95.1 L Carbon Dioxide BUN 40 H Creatinine 3.6 H Glucose 267 H POC Glucose Phosphorus Magnesium Troponin T NT-Pro-B Natriuret Pep Triglycerides 380 H Cholesterol LDL Cholesterol Direct HDL Cholesterol TSH Free T4 05/06/19 05/06/19 05/06/19 06:08 11:15 12:42 WBC RBC Hgb Hct RDW Plt Count Lymph % (Auto) [place] % (Auto) Lymph # Seg Neutrophils % Seg Neuts % (Manual) Lymphocytes % (Manual) Nucleated RBC % Seg Neutrophils # Seg Neutrophils # Man Lymphocytes # (Manual) Monocytes # (Manual) PT INR APTT ABG pH 7.344 L ABG pO2 56.8 L ABG HCO3 ABG O2 Saturation 85.5 L ABG Base Excess ABG Hemoglobin Oxyhemoglobin 83.8 L Sodium Potassium Chloride Carbon Dioxide BUN Creatinine Glucose POC Glucose 325 H 168 H Phosphorus Magnesium Troponin T NT-Pro-B Natriuret Pep Triglycerides Cholesterol LDL Cholesterol Direct HDL Cholesterol TSH Free T4 05/06/19 05/07/19 05/07/19 17:30 00:33 05:25 WBC RBC Hgb Hct RDW Plt Count Lymph % (Auto) [place] % (Auto) Lymph # Seg Neutrophils % Seg Neuts % (Manual) Lymphocytes % (Manual) Nucleated RBC % Seg Neutrophils # Seg Neutrophils # Man Lymphocytes # (Manual) Monocytes # (Manual) PT INR APTT ABG pH ABG pO2 51.8 L ABG HCO3 ABG O2 Saturation 83.6 L ABG Base Excess -3.3 L ABG Hemoglobin Oxyhemoglobin 81.7 L Sodium Potassium Chloride Carbon Dioxide BUN Creatinine Glucose POC Glucose 172 H 131 H Phosphorus Magnesium Troponin T NT-Pro-B Natriuret Pep Triglycerides Cholesterol LDL Cholesterol Direct HDL Cholesterol TSH Free T4 05/07/19 05/07/19 05/07/19 06:31 13:21 15:15 WBC RBC Hgb Hct RDW Plt Count Lymph % (Auto) [place] % (Auto) Lymph # Seg Neutrophils % Seg Neuts % (Manual) Lymphocytes % (Manual) Nucleated RBC % Seg Neutrophils # Seg Neutrophils # Man Lymphocytes # (Manual) Monocytes # (Manual) PT INR APTT ABG pH 7.317 L ABG pO2 64.0 L ABG HCO3 ABG O2 Saturation 89.7 L ABG Base Excess ABG Hemoglobin Oxyhemoglobin 87.8 L Sodium Potassium Chloride Carbon Dioxide BUN Creatinine Glucose POC Glucose 223 H 200 H Phosphorus Magnesium Troponin T NT-Pro-B Natriuret Pep Triglycerides Cholesterol LDL Cholesterol Direct HDL Cholesterol TSH Free T4 05/07/19 05/07/19 05/07/19 18:40 19:35 21:39 WBC RBC Hgb Hct RDW Plt Count Lymph % (Auto) [place] % (Auto) Lymph # Seg Neutrophils % Seg Neuts % (Manual) Lymphocytes % (Manual) Nucleated RBC % Seg Neutrophils # Seg Neutrophils # Man Lymphocytes # (Manual) Monocytes # (Manual) PT INR APTT ABG pH ABG pO2 ABG HCO3 ABG O2 Saturation ABG Base Excess ABG Hemoglobin Oxyhemoglobin Sodium Potassium Chloride Carbon Dioxide BUN Creatinine Glucose POC Glucose 142 H 138 H Phosphorus Magnesium 1.60 L Troponin T NT-Pro-B Natriuret Pep Triglycerides Cholesterol LDL Cholesterol Direct HDL Cholesterol TSH Free T4 05/07/19 05/08/19 05/08/19 23:49 09:32 12:31 WBC RBC Hgb Hct RDW Plt Count Lymph % (Auto) [place] % (Auto) Lymph # Seg Neutrophils % Seg Neuts % (Manual) Lymphocytes % (Manual) Nucleated RBC % Seg Neutrophils # Seg Neutrophils # Man Lymphocytes # (Manual) Monocytes # (Manual) PT INR APTT ABG pH ABG pO2 65.1 L ABG HCO3 18.7 L ABG O2 Saturation 91.9 L ABG Base Excess -5.8 L ABG Hemoglobin Oxyhemoglobin 90.1 L Sodium Potassium Chloride Carbon Dioxide BUN Creatinine Glucose POC Glucose 195 H 298 H Phosphorus Magnesium Troponin T NT-Pro-B Natriuret Pep Triglycerides Cholesterol LDL Cholesterol Direct HDL Cholesterol TSH Free T4 05/08/19 05/08/19 05/08/19 13:54 14:44 14:44 WBC 15.3 H RBC Hgb Hct RDW 16.9 H Plt Count Lymph % (Auto) [place] % (Auto) Lymph # Seg Neutrophils % Seg Neuts % (Manual) Lymphocytes % (Manual) Nucleated RBC % Seg Neutrophils # Seg Neutrophils # Man Lymphocytes # (Manual) Monocytes # (Manual) PT INR APTT ABG pH 7.327 L ABG pO2 67.2 L ABG HCO3 18.4 L ABG O2 Saturation 91.6 L ABG Base Excess -6.8 L ABG Hemoglobin Oxyhemoglobin 89.6 L Sodium Potassium Chloride 91.3 L Carbon Dioxide 17 L BUN 64 H Creatinine 5.0 H Glucose 337 H POC Glucose Phosphorus Magnesium Troponin T NT-Pro-B Natriuret Pep Triglycerides Cholesterol LDL Cholesterol Direct HDL Cholesterol TSH Free T4 05/08/19 05/08/19 05/09/19 17:14 23:49 05:22 WBC RBC Hgb Hct RDW Plt Count Lymph % (Auto) [place] % (Auto) Lymph # Seg Neutrophils % Seg Neuts % (Manual) Lymphocytes % (Manual) Nucleated RBC % Seg Neutrophils # Seg Neutrophils # Man Lymphocytes # (Manual) Monocytes # (Manual) PT INR APTT ABG pH ABG pO2 ABG HCO3 ABG O2 Saturation ABG Base Excess ABG Hemoglobin Oxyhemoglobin Sodium Potassium Chloride Carbon Dioxide BUN Creatinine Glucose POC Glucose 396 H 322 H 239 H Phosphorus Magnesium Troponin T NT-Pro-B Natriuret Pep Triglycerides Cholesterol LDL Cholesterol Direct HDL Cholesterol TSH Free T4 05/09/19 05/09/19 05/09/19 07:14 07:14 11:39 WBC 13.6 H RBC Hgb Hct RDW 17.1 H Plt Count Lymph % (Auto) [place] % (Auto) Lymph # Seg Neutrophils % Seg Neuts % (Manual) 91.0 H Lymphocytes % (Manual) 2.0 L Nucleated RBC % 4.0 H Seg Neutrophils # Seg Neutrophils # Man 12.4 H Lymphocytes # (Manual) 0.3 L Monocytes # (Manual) PT INR APTT ABG pH ABG pO2 ABG HCO3 ABG O2 Saturation ABG Base Excess ABG Hemoglobin Oxyhemoglobin Sodium 135 L Potassium 5.3 H Chloride 93.5 L Carbon Dioxide 14 L BUN 85 H Creatinine 6.1 H Glucose 242 H POC Glucose 273 H Phosphorus Magnesium Troponin T NT-Pro-B Natriuret Pep Triglycerides Cholesterol LDL Cholesterol Direct HDL Cholesterol TSH Free T4 05/09/19 05/09/19 05/10/19 17:29 21:45 00:11 WBC RBC Hgb Hct RDW Plt Count Lymph % (Auto) [place] % (Auto) Lymph # Seg Neutrophils % Seg Neuts % (Manual) Lymphocytes % (Manual) Nucleated RBC % Seg Neutrophils # Seg Neutrophils # Man Lymphocytes # (Manual) Monocytes # (Manual) PT INR APTT ABG pH ABG pO2 ABG HCO3 ABG O2 Saturation ABG Base Excess ABG Hemoglobin Oxyhemoglobin Sodium Potassium Chloride Carbon Dioxide BUN Creatinine Glucose POC Glucose 190 H 190 H 247 H Phosphorus Magnesium Troponin T NT-Pro-B Natriuret Pep Triglycerides Cholesterol LDL Cholesterol Direct HDL Cholesterol TSH Free T4 05/10/19 05/10/19 05/10/19 05:14 05:14 05:42 WBC 21.0 H RBC Hgb Hct RDW 16.8 H Plt Count Lymph % (Auto) [place] % (Auto) Lymph # Seg Neutrophils % Seg Neuts % (Manual) 91.0 H Lymphocytes % (Manual) 2.0 L Nucleated RBC % 7.0 H Seg Neutrophils # Seg Neutrophils # Man 19.1 H Lymphocytes # (Manual) 0.4 L Monocytes # (Manual) 1.1 H PT INR APTT ABG pH ABG pO2 ABG HCO3 ABG O2 Saturation ABG Base Excess ABG Hemoglobin Oxyhemoglobin Sodium Potassium Chloride 92.2 L Carbon Dioxide 19 L BUN 111 H Creatinine 7.7 H Glucose 193 H POC Glucose 208 H Phosphorus Magnesium Troponin T NT-Pro-B Natriuret Pep Triglycerides Cholesterol LDL Cholesterol Direct HDL Cholesterol TSH Free T4 05/10/19 05/10/19 05/11/19 12:28 17:45 00:26 WBC RBC Hgb Hct RDW Plt Count Lymph % (Auto) [place] % (Auto) Lymph # Seg Neutrophils % Seg Neuts % (Manual) Lymphocytes % (Manual) Nucleated RBC % Seg Neutrophils # Seg Neutrophils # Man Lymphocytes # (Manual) Monocytes # (Manual) PT INR APTT ABG pH ABG pO2 ABG HCO3 ABG O2 Saturation ABG Base Excess ABG Hemoglobin Oxyhemoglobin Sodium Potassium Chloride Carbon Dioxide BUN Creatinine Glucose POC Glucose 275 H 214 H 244 H Phosphorus Magnesium Troponin T NT-Pro-B Natriuret Pep Triglycerides Cholesterol LDL Cholesterol Direct HDL Cholesterol TSH Free T4 05/11/19 05/11/19 05/11/19 04:08 04:23 04:23 WBC 20.5 H RBC Hgb Hct RDW 17.0 H Plt Count 134 L Lymph % (Auto) [place] % (Auto) Lymph # Seg Neutrophils % Seg Neuts % (Manual) 92.0 H Lymphocytes % (Manual) 1.0 L Nucleated RBC % 3.0 H Seg Neutrophils # Seg Neutrophils # Man 18.9 H Lymphocytes # (Manual) 0.2 L Monocytes # (Manual) 1.0 H PT INR APTT ABG pH ABG pO2 57.9 L ABG HCO3 ABG O2 Saturation 89.9 L ABG Base Excess ABG Hemoglobin 10.3 L Oxyhemoglobin 87.9 L Sodium Potassium Chloride 90.9 L Carbon Dioxide BUN 50 H Creatinine 4.2 H Glucose 175 H POC Glucose Phosphorus Magnesium Troponin T NT-Pro-B Natriuret Pep Triglycerides Cholesterol LDL Cholesterol Direct HDL Cholesterol TSH Free T4 05/11/19 05/11/19 05/11/19 05:36 12:00 13:00 WBC RBC Hgb Hct RDW Plt Count Lymph % (Auto) [place] % (Auto) Lymph # Seg Neutrophils % Seg Neuts % (Manual) Lymphocytes % (Manual) Nucleated RBC % Seg Neutrophils # Seg Neutrophils # Man Lymphocytes # (Manual) Monocytes # (Manual) PT INR APTT ABG pH ABG pO2 ABG HCO3 ABG O2 Saturation ABG Base Excess ABG Hemoglobin Oxyhemoglobin Sodium Potassium Chloride Carbon Dioxide BUN Creatinine Glucose POC Glucose 147 H 318 H Phosphorus Magnesium 1.50 L Troponin T NT-Pro-B Natriuret Pep Triglycerides Cholesterol LDL Cholesterol Direct HDL Cholesterol TSH Free T4 05/11/19 05/11/19 05/11/19 13:00 13:00 18:00 WBC RBC Hgb Hct RDW Plt Count Lymph % (Auto) [place] % (Auto) Lymph # Seg Neutrophils % Seg Neuts % (Manual) Lymphocytes % (Manual) Nucleated RBC % Seg Neutrophils # Seg Neutrophils # Man Lymphocytes # (Manual) Monocytes # (Manual) PT INR APTT ABG pH ABG pO2 ABG HCO3 ABG O2 Saturation ABG Base Excess ABG Hemoglobin Oxyhemoglobin Sodium Potassium Chloride Carbon Dioxide BUN Creatinine Glucose POC Glucose 237 H Phosphorus Magnesium Troponin T NT-Pro-B Natriuret Pep Triglycerides Cholesterol LDL Cholesterol Direct HDL Cholesterol TSH 0.220 L Free T4 0.70 L 05/11/19 05/12/19 05/12/19 23:49 03:50 04:35 WBC 17.5 H RBC Hgb Hct RDW 17.0 H Plt Count 119 L Lymph % (Auto) [place] % (Auto) Lymph # Seg Neutrophils % Seg Neuts % (Manual) 98.0 H Lymphocytes % (Manual) 1.0 L Nucleated RBC % Seg Neutrophils # Seg Neutrophils # Man 17.2 H Lymphocytes # (Manual) 0.2 L Monocytes # (Manual) PT INR APTT ABG pH ABG pO2 ABG HCO3 ABG O2 Saturation ABG Base Excess ABG Hemoglobin Oxyhemoglobin Sodium Potassium Chloride Carbon Dioxide BUN Creatinine Glucose POC Glucose 117 H 225 H Phosphorus Magnesium Troponin T NT-Pro-B Natriuret Pep Triglycerides Cholesterol LDL Cholesterol Direct HDL Cholesterol TSH Free T4 05/12/19 05/12/19 05/12/19 04:35 04:36 05:51 WBC RBC Hgb Hct RDW Plt Count Lymph % (Auto) [place] % (Auto) Lymph # Seg Neutrophils % Seg Neuts % (Manual) Lymphocytes % (Manual) Nucleated RBC % Seg Neutrophils # Seg Neutrophils # Man Lymphocytes # (Manual) Monocytes # (Manual) PT INR APTT ABG pH ABG pO2 79.4 L ABG HCO3 ABG O2 Saturation ABG Base Excess ABG Hemoglobin 10.9 L Oxyhemoglobin 94.0 L Sodium 130 L D Potassium 5.9 H D Chloride 85.0 L Carbon Dioxide 19 L BUN 81 H Creatinine 5.7 H Glucose 228 H POC Glucose 274 H Phosphorus Magnesium Troponin T NT-Pro-B Natriuret Pep Triglycerides Cholesterol LDL Cholesterol Direct HDL Cholesterol TSH Free T4 05/12/19 05/12/19 05/12/19 11:30 18:11 23:53 WBC RBC Hgb Hct RDW Plt Count Lymph % (Auto) [place] % (Auto) Lymph # Seg Neutrophils % Seg Neuts % (Manual) Lymphocytes % (Manual) Nucleated RBC % Seg Neutrophils # Seg Neutrophils # Man Lymphocytes # (Manual) Monocytes # (Manual) PT INR APTT ABG pH ABG pO2 ABG HCO3 ABG O2 Saturation ABG Base Excess ABG Hemoglobin Oxyhemoglobin Sodium Potassium Chloride Carbon Dioxide BUN Creatinine Glucose POC Glucose 146 H 307 H 266 H Phosphorus Magnesium Troponin T NT-Pro-B Natriuret Pep Triglycerides Cholesterol LDL Cholesterol Direct HDL Cholesterol TSH Free T4 05/13/19 05/13/19 05/13/19 04:30 04:30 05:24 WBC 17.4 H RBC 3.48 L Hgb 10.0 L Hct RDW 17.0 H Plt Count 122 L Lymph % (Auto) [place] % (Auto) Lymph # Seg Neutrophils % Seg Neuts % (Manual) 97.0 H Lymphocytes % (Manual) 1.0 L Nucleated RBC % Seg Neutrophils # Seg Neutrophils # Man 16.9 H Lymphocytes # (Manual) 0.2 L Monocytes # (Manual) PT INR APTT ABG pH ABG pO2 ABG HCO3 ABG O2 Saturation ABG Base Excess ABG Hemoglobin Oxyhemoglobin Sodium 136 L Potassium Chloride 92.4 L Carbon Dioxide BUN 61 H Creatinine 4.6 H Glucose 198 H POC Glucose 182 H Phosphorus Magnesium Troponin T NT-Pro-B Natriuret Pep Triglycerides Cholesterol LDL Cholesterol Direct HDL Cholesterol TSH Free T4 05/13/19 05/13/19 05/13/19 12:01 12:27 18:35 WBC RBC Hgb Hct RDW Plt Count Lymph % (Auto) [place] % (Auto) Lymph # Seg Neutrophils % Seg Neuts % (Manual) Lymphocytes % (Manual) Nucleated RBC % Seg Neutrophils # Seg Neutrophils # Man Lymphocytes # (Manual) Monocytes # (Manual) PT INR APTT 23.5 L ABG pH ABG pO2 ABG HCO3 ABG O2 Saturation ABG Base Excess ABG Hemoglobin Oxyhemoglobin Sodium Potassium Chloride Carbon Dioxide BUN Creatinine Glucose POC Glucose 243 H 294 H Phosphorus Magnesium Troponin T NT-Pro-B Natriuret Pep Triglycerides Cholesterol LDL Cholesterol Direct HDL Cholesterol TSH Free T4 05/13/19 05/13/19 05/14/19 22:15 23:29 05:21 WBC 16.3 H RBC 3.55 L Hgb Hct RDW 16.8 H Plt Count 118 L Lymph % (Auto) [place] % (Auto) Lymph # Seg Neutrophils % Seg Neuts % (Manual) 93.0 H Lymphocytes % (Manual) 0 L Nucleated RBC % Seg Neutrophils # Seg Neutrophils # Man 15.2 H Lymphocytes # (Manual) 0.0 L Monocytes # (Manual) PT INR APTT ABG pH ABG pO2 ABG HCO3 ABG O2 Saturation ABG Base Excess ABG Hemoglobin Oxyhemoglobin Sodium Potassium Chloride Carbon Dioxide BUN Creatinine Glucose POC Glucose 228 H 201 H Phosphorus Magnesium Troponin T NT-Pro-B Natriuret Pep Triglycerides Cholesterol LDL Cholesterol Direct HDL Cholesterol TSH Free T4 05/14/19 05/14/19 05/14/19 05:21 05:42 13:06 WBC RBC Hgb Hct RDW Plt Count Lymph % (Auto) [place] % (Auto) Lymph # Seg Neutrophils % Seg Neuts % (Manual) Lymphocytes % (Manual) Nucleated RBC % Seg Neutrophils # Seg Neutrophils # Man Lymphocytes # (Manual) Monocytes # (Manual) PT INR APTT ABG pH ABG pO2 ABG HCO3 ABG O2 Saturation ABG Base Excess ABG Hemoglobin Oxyhemoglobin Sodium Potassium Chloride 92.2 L Carbon Dioxide 18 L BUN 79 H Creatinine 5.7 H Glucose 243 H POC Glucose 236 H 172 H Phosphorus Magnesium Troponin T NT-Pro-B Natriuret Pep Triglycerides Cholesterol LDL Cholesterol Direct HDL Cholesterol TSH Free T4 05/14/19 05/15/19 05/15/19 17:49 00:31 05:38 WBC RBC Hgb Hct RDW Plt Count Lymph % (Auto) [place] % (Auto) Lymph # Seg Neutrophils % Seg Neuts % (Manual) Lymphocytes % (Manual) Nucleated RBC % Seg Neutrophils # Seg Neutrophils # Man Lymphocytes # (Manual) Monocytes # (Manual) PT INR APTT ABG pH ABG pO2 ABG HCO3 ABG O2 Saturation ABG Base Excess ABG Hemoglobin Oxyhemoglobin Sodium Potassium Chloride Carbon Dioxide BUN Creatinine Glucose POC Glucose 215 H 276 H 275 H Phosphorus Magnesium Troponin T NT-Pro-B Natriuret Pep Triglycerides Cholesterol LDL Cholesterol Direct HDL Cholesterol TSH Free T4 05/15/19 05/15/19 05/15/19 07:15 07:15 13:44 WBC 15.6 H RBC 3.22 L Hgb 9.2 L Hct 28.9 L RDW 16.6 H Plt Count 91 L Lymph % (Auto) 0.4 L [place] % (Auto) Lymph # 0.1 L Seg Neutrophils % 98.7 H Seg Neuts % (Manual) Lymphocytes % (Manual) Nucleated RBC % Seg Neutrophils # 15.4 H Seg Neutrophils # Man Lymphocytes # (Manual) Monocytes # (Manual) PT INR APTT ABG pH ABG pO2 ABG HCO3 ABG O2 Saturation ABG Base Excess ABG Hemoglobin Oxyhemoglobin Sodium 135 L Potassium 3.5 L Chloride 94.1 L Carbon Dioxide 21 L BUN 37 H Creatinine 3.3 H Glucose 299 H POC Glucose 285 H Phosphorus Magnesium Troponin T NT-Pro-B Natriuret Pep Triglycerides Cholesterol LDL Cholesterol Direct HDL Cholesterol TSH Free T4 03/28/20 03/29/20 03/29/20 18:56 00:29 05:38 WBC RBC Hgb Hct RDW Plt Count Lymph % (Auto) [place] % (Auto) Lymph # Seg Neutrophils % Seg Neuts % (Manual) Lymphocytes % (Manual) Nucleated RBC % Seg Neutrophils # Seg Neutrophils # Man Lymphocytes # (Manual) Monocytes # (Manual) PT INR APTT ABG pH ABG pO2 ABG HCO3 ABG O2 Saturation ABG Base Excess ABG Hemoglobin Oxyhemoglobin Sodium Potassium Chloride Carbon Dioxide BUN Creatinine Glucose POC Glucose 213 H 270 H 289 H Phosphorus Magnesium Troponin T NT-Pro-B Natriuret Pep Triglycerides Cholesterol LDL Cholesterol Direct HDL Cholesterol TSH Free T4 05/16/19 12:38 WBC RBC Hgb Hct RDW Plt Count Lymph % (Auto) [place] % (Auto) Lymph # Seg Neutrophils % Seg Neuts % (Manual) Lymphocytes % (Manual) Nucleated RBC % Seg Neutrophils # Seg Neutrophils # Man Lymphocytes # (Manual) Monocytes # (Manual) PT INR APTT ABG pH ABG pO2 ABG HCO3 ABG O2 Saturation ABG Base Excess ABG Hemoglobin Oxyhemoglobin Sodium Potassium Chloride Carbon Dioxide BUN Creatinine Glucose POC Glucose 216 H Phosphorus Magnesium Troponin T NT-Pro-B Natriuret Pep Triglycerides Cholesterol LDL Cholesterol Direct HDL Cholesterol TSH Free T4
[2019-05-16] MEDS: hydrALAZINE 25 MG TAB PO SCH ×2 (15:10→22:44)
[2019-05-16] MEDS: MONTELUKAST 10 MG TAB PO SCH (18:02)
[2019-05-16] MEDS: PRAVASTATIN 40 MG TAB PO SCH (22:44)
[2019-05-16] MEDS: INSULIN GLARGINE 100 UNITS/ML SUB-Q SCH (22:53)
[2019-05-17] MEDS: dilTIAZem 60 MG TAB PO SCH ×4 (01:18→17:38)
[2019-05-17] MEDS: METOCLOPRAMIDE 10 MG/2 ML INJ IV SCH (01:20)
[2019-05-17] MEDS: methylPREDNISolone Sod Succinate 125 MG/2 ML INJ IV SCH ×3 (05:55→17:25)
[2019-05-17] MEDS: INSULIN LISPRO 100 UNIT/ML SUB-Q SCH ×3 (05:56→17:40)
[2019-05-17] MEDS: hydrALAZINE 25 MG TAB PO SCH ×3 (05:57→22:09)
[2019-05-17] MEDS ORDERED: SODIUM CHLORIDE 0.9% 100 ML IV PRN (08:09)
[2019-05-17] MEDS: LORazepam 2 MG/ML VIAL IV PRN (08:18)
[2019-05-17] MEDS ORDERED: INSULIN GLARGINE 100 UNITS/ML SUB-Q ONE (10:00)
[2019-05-17] MEDS ORDERED: SODIUM CHLORIDE 0.9% 1000 ML 2,000 ML ONE (10:04)
[2019-05-17] MEDS: FAMOTIDINE 20 MG TAB PO SCH (10:18)
[2019-05-17] MEDS: busPIRone 10 MG TAB PO SCH ×2 (10:18→22:12)
[2019-05-17] MEDS: AMIODARONE 200 MG TAB PO SCH (10:18)
[2019-05-17] MEDS: ASPIRIN 81 MG TAB CHEW PO SCH (10:21)
--- NOTE | 2019-05-17 10:29 | Progress Note ---
Assessment and Plan Impression: * End stage renal disease * Acute on chronic hypoxic respiratory failure --wears 2-3L NC oxygen at home * COPD exacerbation * Chronic diastolic heart failure * Hypertension by history * Hypotension * Anemia secondary to ESRD * Secondary hyperparathyroidism * Acidosis * Hyperkalemia * Atrial fibrillation Plan: * Continue MWF schedule for HD, due today * Holding bp meds, continue pressors prn for MAP>65, on low dose levo intermittently * s/p trach and PEG * UF as tolerated with HD, limiting today due to hypotension on HD * Vent management per pulmonary medicine * Dose medications for renal function * Epogen TIW prn * Nutrition per primary team Subjective Date of service: 05/17/19 Principal diagnosis: Acute resp failure,COPd exacerbation Interval history: No acute changes noted per chart review. Seen on HD, tolerating better today. Objective - Exam Narrative Exam: General appearance: intubated, frail EENT: other (ETT in place) Respiratory: coarse breath sounds noted Cardiology: regular, S1S2 Gastrointestinal: hypoactive bowel sounds Integumentary: no rash, warm and dry Musculoskeletal: other (no edema) Neuro: agitated - Vital Signs Vital signs: Vital Signs - 12hr 05/16/19 05/16/19 05/17/19 22:44 23:00 00:00 Temperature Pulse Rate 87 99 H 101 H Pulse Rate [ 81 From Monitor] Respiratory 26 H 25 H Rate Blood Pressure 165/57 173/81 173/81 O2 Sat by Pulse 100 100 Oximetry O2 Sat by Pulse Oximetry [ Anterior Bilateral Throughout] O2 Sat by Pulse Oximetry [ Assessment] 05/17/19 05/17/19 05/17/19 00:05 00:18 00:26 Temperature 98.3 F Pulse Rate 97 H Pulse Rate [ From Monitor] Respiratory Rate Blood Pressure 173/81 O2 Sat by Pulse 100 Oximetry O2 Sat by Pulse Oximetry [ Anterior Bilateral Throughout] O2 Sat by Pulse 100 Oximetry [ Assessment] 05/17/19 05/17/19 05/17/19 01:00 01:18 02:00 Temperature Pulse Rate 91 H 95 H 92 H Pulse Rate [ From Monitor] Respiratory 24 24 Rate Blood Pressure 173/81 136/70 154/88 O2 Sat by Pulse 100 Oximetry O2 Sat by Pulse Oximetry [ Anterior Bilateral Throughout] O2 Sat by Pulse Oximetry [ Assessment] 05/17/19 05/17/19 05/17/19 03:00 04:00 04:20 Temperature 98.4 F Pulse Rate 90 90 89 Pulse Rate [ 91 H From Monitor] Respiratory 24 24 Rate Blood Pressure 150/88 161/76 161/76 O2 Sat by Pulse 99 99 100 Oximetry O2 Sat by Pulse Oximetry [ Anterior Bilateral Throughout] O2 Sat by Pulse Oximetry [ Assessment] 05/17/19 05/17/19 05/17/19 05:00 05:57 06:00 Temperature Pulse Rate 93 H 85 91 H Pulse Rate [ From Monitor] Respiratory 23 26 H Rate Blood Pressure 161/76 161/76 144/83 O2 Sat by Pulse 99 99 Oximetry O2 Sat by Pulse Oximetry [ Anterior Bilateral Throughout] O2 Sat by Pulse Oximetry [ Assessment] 05/17/19 05/17/19 05/17/19 07:00 07:45 08:00 Temperature 99.7 F H 97.6 F Pulse Rate 101 H 100 H 98 H Pulse Rate [ From Monitor] Respiratory 30 H 27 H 23 Rate Blood Pressure 180/87 171/80 171/80 O2 Sat by Pulse 96 98 Oximetry O2 Sat by Pulse 100 Oximetry [ Anterior Bilateral Throughout] O2 Sat by Pulse Oximetry [ Assessment] 05/17/19 05/17/19 05/17/19 08:15 08:30 08:45 Temperature Pulse Rate 104 H 105 H 105 H Pulse Rate [ From Monitor] Respiratory Rate Blood Pressure 164/92 144/84 134/77 O2 Sat by Pulse 100 Oximetry O2 Sat by Pulse Oximetry [ Anterior Bilateral Throughout] O2 Sat by Pulse Oximetry [ Assessment] 05/17/19 05/17/19 05/17/19 09:00 09:15 09:30 Temperature Pulse Rate 101 H 94 H 94 H Pulse Rate [ From Monitor] Respiratory 28 H Rate Blood Pressure 123/73 128/88 126/88 O2 Sat by Pulse 99 Oximetry O2 Sat by Pulse Oximetry [ Anterior Bilateral Throughout] O2 Sat by Pulse Oximetry [ Assessment] 05/17/19 05/17/19 09:45 10:00 Temperature Pulse Rate 94 H 108 H Pulse Rate [ From Monitor] Respiratory Rate Blood Pressure 153/72 142/92 O2 Sat by Pulse Oximetry O2 Sat by Pulse Oximetry [ Anterior Bilateral Throughout] O2 Sat by Pulse Oximetry [ Assessment] Seen on HD: Qb 250ml/min, UF 500ml only - Lab 05/15/19 07:15 05/15/19 07:15 Most recent lab results ABG pH 7.388 pH Units (7.350-7.450) 05/12/19 04:36 ABG pCO2 38.5 mm Hg 05/12/19 04:36 ABG pO2 79.4 mm Hg (80.0-90.0) L 05/12/19 04:36 ABG HCO3 22.7 mmol/L (20.0-26.0) 05/12/19 04:36 ABG O2 Saturation 96.0 % (95.0-99.0) 05/12/19 04:36 Calcium 9.3 mg/dL (8.4-10.2) 05/15/19 07:15 Phosphorus 12.90 mg/dL (2.5-4.5) H 05/03/19 09:44 Magnesium 1.50 mg/dL (1.7-2.3) L 05/11/19 13:00 Medications & Allergies - Medications Allergies/Adverse Reactions: Allergies latex Allergy (Verified 02/05/19 13:51) Hives milk Allergy (Verified 02/05/19 13:51) Rash Home Medications: Home Medications Medication Instructions Recorded Confirmed Last Taken Type Metoprolol [Lopressor TAB] 50 mg PO BID #60 tablet 01/27/18 05/03/19 04/11/19 Rx Montelukast [Singulair] 10 mg PO QPM #30 tablet 01/27/18 05/03/19 04/11/19 Rx Pravastatin [Pravachol] 40 mg PO QHS #30 tablet 01/27/18 05/03/19 04/11/19 Rx allopurinoL [Zyloprim] 100 mg PO QDAY #30 tablet 01/27/18 05/03/19 04/11/19 Rx Famotidine [Pepcid] 20 mg PO BID 06/17/18 05/03/19 04/11/19 History Fluticasone/Vilanterol [Breo 1 each IH BID #1 blst.w.dev 12/31/18 05/03/19 04/11/19 Rx Ellipta 200-25 Mcg INH] Tiotropium [place] [Spiriva 4 gm IH DAILY #1 mist.inhal 12/31/18 05/03/19 04/11/19 Rx Respimat] Aspirin EC [Halfprin EC] 81 mg PO QDAY #30 tablet. 02/18/19 05/03/19 04/11/19 Rx ISOSORBIDE MONOnitrate [Imdur ER] 30 mg PO QDAY #30 tablet 02/18/19 05/03/19 Unk nown Rx glipiZIDE [Glucotrol] 5 mg PO QDAY #30 tablet 02/18/19 05/03/19 Unknown Rx ALBUTEROL NEB's [Proventil 0.083% 2.5 mg IH Q4HRT PRN #30 nebu 04/15/19 05/03/19 Unknown Rx NEBS] Furosemide [Lasix] 20 mg PO QDAY #30 tablet 04/15/19 05/03/19 Unknown Rx Ipratropium/Albuterol Sulfate 2 puff IH BID #1 unit 04/15/19 05/03/19 Unknown Rx [Combivent Respimat] Olanzapine/Fluoxetine HCl [Symbyax 1 each PO QHS #30 capsule 04/15/19 05/03/19 Unknown Rx 3-25 mg] Sodium Bicarbonate 650 mg PO BID #60 tablet 04/15/19 05/03/19 Unknown Rx amLODIPine 10 mg PO DAILY #30 tablet 04/15/19 05/03/19 Unknown Rx cefUROXime [Ceftin] 250 mg PO Q12H #14 tablet 04/15/19 05/03/19 Unknown Rx predniSONE [Deltasone] 1 tab PO QDAY #91 tab 04/15/19 05/03/19 Unknown Rx traMADoL [Ultram 50 MG tab] 50 mg PO Q8H PRN #15 tab 04/15/19 05/03/19 04/11/19 Rx Active Medications: Generic Name Dose Route Start Last Admin Trade Name Freq PRN Reason Stop Dose Admin Acetaminophen 650 mg 04/30/19 17:44 05/05/19 15:22 Tylenol PO 650 mg Q4H PRN Administration Pain MILD(1-3)/Fever >100.5/HERRMANN Albuterol 2.5 mg 04/30/19 18:32 05/02/19 04:49 Proventil IH 2.5 mg Q3H PRN Administration Shortness Of Breath Albuterol/Ipratropium 1 ampul 05/11/19 14:00 05/16/19 20:07 Duoneb *Not For Prn Use* IH 1 ampul TIDRT KVNG Administration Amiodarone HCl 200 mg 05/12/19 10:00 05/17/19 10:18 Cordarone PO 200 mg QDAY KVNG Administration Lipase/Protease/Amylase 1 each 05/04/19 14:58 Denisha Gould 10,500 Unit FEEDTUBE PRN PRN For Clogged Feeding Tube Arformoterol Tartrate 15 mcg 05/01/19 08:00 05/16/19 20:07 Brovana Nebu IH Not Given Q12HRT KVNG Aspirin 81 mg 05/11/19 10:00 05/17/19 10:21 Baby Aspirin PO 81 mg QDAY KVNG Administration Budesonide 0.5 mg 05/03/19 11:00 05/16/19 20:07 Pulmicort IH 0.5 mg Q12HRT KVNG Administration Buspirone HCl 15 mg 05/04/19 10:00 05/17/19 10:18 Buspar PO 15 mg BID KVNG Administration Diltiazem HCl 60 mg 05/15/19 18:00 05/17/19 05:57 Cardizem PO 60 mg Q6HR KVNG Administration Famotidine 20 mg 05/17/19 10:00 05/17/19 10:18 Pepcid PO 20 mg DAILY [facility] Administration Fentanyl 50 mcg 05/11/19 10:00 05/15/19 18:03 Sublimaze IV 50 mcg Q2H PRN Administration AGITATION Hydralazine HCl 5 mg 05/01/19 22:47 05/16/19 10:35 Apresoline IV 5 mg Q6HR PRN Administration SBP > 160 AND/OR DBP > 100 Hydralazine HCl 50 mg 05/16/19 14:00 05/17/19 05:57 Apresoline PO 50 mg Q8HR KVNG Administration Hydrophilic Ointment 1 applic 05/04/19 09:42 Vaseline Lip Therapy TP Q2HR PRN Dry Lips Sodium Chloride 100 mls @ 999 mls/hr 04/30/19 13:29 Nacl 0.9% IV ALBINO PRN Hypotension Sodium Chloride 100 mls @ 999 mls/hr 05/17/19 08:09 Nacl 0.9% IV ALBINO PRN Hypotension Insulin Glargine 20 units 05/17/19 22:00 Lantus SUB-Q QHS [facility] Insulin Human Lispro 0 unit 05/05/19 18:00 05/17/19 05:56 Humalog SUB-Q 10 unit Q6HR KVNG Administration Protocol Lorazepam 1 mg 05/02/19 11:08 05/17/19 08:18 Ativan IV 1 mg Q4H PRN Administration Anxiety Methylprednisolone Sodium Succinate 20 mg 05/17/19 08:29 05/17/19 10:21 Solu-Medrol IV 20 mg Q8H KVNG Administration Montelukast Sodium 10 mg 04/30/19 19:00 05/16/19 18:02 Singulair PO 10 mg QPM KVNG Administration Multi-Ingred Cream/Lotion/Oil/Oint 1 applic 05/04/19 09:42 Artificial Tears Ophth Oint OU Q4HR PRN Dry Eye(s) Pravastatin Sodium 40 mg 04/30/19 22:00 05/16/19 22:44 Pravachol PO 40 mg QHS KVNG Administration Simple Syrup 15 ml 05/04/19 14:58 Simple Syrup FEEDTUBE PRN PRN Hypoglycemia Simple Syrup 30 ml 05/04/19 14:58 Simple Syrup FEEDTUBE PRN PRN Hypoglycemia Sodium Bicarbonate 325 mg 05/04/19 14:58 Sodium Bicarbonate FEEDTUBE PRN PRN For Clogged Feeding Tube Sodium Chloride 10 ml 04/30/19 22:00 05/17/19 10:17 Sodium Chloride Flush Syringe 10 Ml IV 10 ml BID KVNG Administration Sodium Chloride 10 ml 04/30/19 17:44 05/15/19 09:53 Sodium Chloride Flush Syringe 10 Ml IV 10 ml PRN PRN Administration LINE FLUSH
--- NOTE | 2019-05-17 11:05 | Progress Note ---
Assessment and Plan Assessment and plan: Patient is a 78 yo AA woman with a history of IA, Diastolic CHF, CAD S/P CABG, DM, Asthma, OA, Anxiety disorder, Chronic Respiratory Failure on 2-3 L Home oxygen due to end stage COPD and ESRD on HD(M,W,F) who presented to [facility] ED on 04/30/2019 with SOB and wheezing for 2 days. Acute on chronic hypoxic respiratory failure >96 hours: trying to wean, CCM Atrial Fibrillation with RVR: metoprolol IV with holding parameters, Cardiology consulted Acute COPD exacerbation: Continue neb treatments, antibiotics, steroids and oxygen supplement Anxiety disorder: Continue Klonopin Hyperglycemia: Continue to monitor likely induced by steroid use. End-stage renal disease: On hemodialysis Friday and Friday, Nephrology note reviewed Acute metabolic acidosis: monitor BMP Chronic diastolic heart failure, Hypertension, Anemia of chronic kidney disease: monitor CBC DVT ppx: sq heparin 05/06: Discussed with is technician plan is for extubation today. Continue management. 05/07: Discussed with family and is technician, will proceed with re-intubation and possible plan for Trach and PEG. Daughter informs me that the patient is very anxious and believes that this hampers extubation. Stated that she had discussed with is technician to reintubate the patient if she failed extubation. She does understand the process of weaning from ventilation. 05/08: Hyperkalemia, Nephrology managing 05/09: Afib, will optimize, and plan for trach and PEG. Cardiology consult. Pulmonary adjusting vent. No changes clinically. Discussed with Surgery, will plan for Trach and Peg 05/11/19: I took over care on Day 11. Still trying to wean vent and vasopressor. Awaiting PEG and trach. Restraints renewed, CCT 32 minutes, 05/12/19: Hemodialysis today, trach and PEG tomorrow. 05/13/19: Trach and PEG today, restraints renewed. 05/14/19: Daily MV weaning attempts, Awaiting on LTACH, her insurance requiring 20 day ICU stay, she is 14 days in ICU. Restraint renewed 05/15/19: Still intubated, PEEP 8 FiO2 40%, Restraints renewed. Hyperglycemia should improve with weaning of steroids, currently on Lantus 10u/Humalog SSI 05/16/19: Still Intubated, day ICU stay needed for LTACH. 05/17/19: still intubated, HD today, patient needs 20 day stay for her Insurance to pay for LTACH, renewed restraints, reviewed labs. History Interval history: Patient was seen and examined. Follow-up on current diagnosis of Afib with RVR. Overnight uneventful as no events directly reported to me. Patient is intubated Imaging, nursing note, chart, labs and old chart reviewed. Hospitalist Physical - Physical exam Narrative exam: Gen: critically ill, grimacing during HD HEENT: NCAT, ETT in place Neck: supple, no adenopathy, no thyromegaly, no JVD CVS/Heart: irregular irregular, normal S1S2, pulses present bilaterally Chest/Lungs: diminished Symmetrical chest expansion, good air entry bilaterally GI/Abdomen: soft, NTND, good bowel sounds, no guarding or rebound /Bladder: no suprapubic tenderness, no CVA or paraspinal tenderness Extermity/Skin: no c/c/e, no obvious rash MSK: intubated Neuro: intubated Psych: intubated - Constitutional Vitals: Temp Pulse Resp BP Pulse Ox 97.6 F 102 H 28 H 138/76 99 05/17/19 08:00 05/17/19 10:45 05/17/19 09:00 05/17/19 10:45 05/17/19 09:00 General appearance: Present: other (intubated on the vent) ROB score - Rob Score Age > 65: (1) Yes Aspirin use within the Past 7 Days: (1) Yes 3 or more CAD Risk Factors: (1) Yes 2 or more Angina events in past 24 hrs: (0) No Known CAD with more than 50% Stenosis: (0) No Elevated Cardiac Markers: (0) No ST Deviation Greater than 0.5mm: (0) No ROB Score: 3 Results - Labs CBC & Chem 7: 05/15/19 07:15 05/15/19 07:15 Labs: Laboratory Last Values WBC 15.6 K/mm3 (4.5-11.0) H 05/15/19 07:15 RBC 3.22 M/mm3 (3.65-5.03) L 05/15/19 07:15 Hgb 9.2 gm/dl (10.1-14.3) L 05/15/19 07:15 Hct 28.9 % (30.3-42.9) L 05/15/19 07:15 MCV 90 fl (79-97) 05/15/19 07:15 MCH 29 pg (28-32) 05/15/19 07:15 MCHC 32 % (30-34) 05/15/19 07:15 RDW 16.6 % (13.2-15.2) H 05/15/19 07:15 Plt Count 91 K/mm3 (140-440) L 05/15/19 07:15 Lymph % (Auto) 0.4 % (13.4-35.0) L 05/15/19 07:15 [place] % (Auto) 0.8 % (0.0-7.3) 05/15/19 07:15 Eos % (Auto) 0.0 % (0.0-4.3) 05/15/19 07:15 Baso % (Auto) 0.1 % (0.0-1.8) 05/15/19 07:15 Lymph # 0.1 K/mm3 (1.2-5.4) L 05/15/19 07:15 Baxter # 0.1 K/mm3 (0.0-0.8) 05/15/19 07:15 Eos # 0.0 K/mm3 (0.0-0.4) 05/15/19 07:15 Baso # 0.0 K/mm3 (0.0-0.1) 05/15/19 07:15 Add Manual Diff Complete 05/14/19 05:21 Total Counted 100 05/14/19 05:21 Seg Neutrophils % 98.7 % (40.0-70.0) H 05/15/19 07:15 Seg Neuts % (Manual) 93.0 % (40.0-70.0) H 05/14/19 05:21 Band Neutrophils % 6.0 % 05/14/19 05:21 Lymphocytes % (Manual) 0 % (13.4-35.0) L 05/14/19 05:21 Reactive Lymphs % (Man) 0 % 05/14/19 05:21 Monocytes % (Manual) 1.0 % (0.0-7.3) 05/14/19 05:21 Eosinophils % (Manual) 0 % (0.0-4.3) 05/14/19 05:21 Basophils % (Manual) 0 % (0.0-1.8) 05/14/19 05:21 Metamyelocytes % 0 % 05/14/19 05:21 Myelocytes % 0 % 05/14/19 05:21 Promyelocytes % 0 % 05/14/19 05:21 Blast Cells % 0 % 05/14/19 05:21 Nucleated RBC % Not Reportable 05/14/19 05:21 Seg Neutrophils # 15.4 K/mm3 (1.8-7.7) H 05/15/19 07:15 Seg Neutrophils # Man 15.2 K/mm3 (1.8-7.7) H 05/14/19 05:21 Band Neutrophils # 1.0 K/mm3 05/14/19 05:21 Lymphocytes # (Manual) 0.0 K/mm3 (1.2-5.4) L 05/14/19 05:21 Abs React Lymphs (Man) 0.0 K/mm3 05/14/19 05:21 Monocytes # (Manual) 0.2 K/mm3 (0.0-0.8) 05/14/19 05:21 Eosinophils # (Manual) 0.0 K/mm3 (0.0-0.4) 05/14/19 05:21 Basophils # (Manual) 0.0 K/mm3 (0.0-0.1) 05/14/19 05:21 Metamyelocytes # 0.0 K/mm3 05/14/19 05:21 Myelocytes # 0.0 K/mm3 05/14/19 05:21 Promyelocytes # 0.0 K/mm3 05/14/19 05:21 Blast Cells # 0.0 K/mm3 05/14/19 05:21 WBC Morphology Not Reportable 05/14/19 05:21 Hypersegmented Neuts Not Reportable 05/14/19 05:21 Hyposegmented Neuts Not Reportable 05/14/19 05:21 Hypogranular Neuts Not Reportable 05/14/19 05:21 Smudge Cells Not Reportable 05/14/19 05:21 Toxic Granulation Not Reportable 05/14/19 05:21 Toxic Vacuolation Not Reportable 05/14/19 05:21 Dohle Bodies Not Reportable 05/14/19 05:21 Pelger-Huet Anomaly Not Reportable 05/14/19 05:21 Ariel Rods Not Reportable 05/14/19 05:21 Platelet Estimate Consistent w auto 05/14/19 05:21 Clumped Platelets Not Reportable 05/14/19 05:21 Plt Clumps, EDTA Not Reportable 05/14/19 05:21 Large Platelets Not Reportable 05/14/19 05:21 Giant Platelets Not Reportable 05/14/19 05:21 Platelet Satelliting Not Reportable 05/14/19 05:21 Plt Morphology Comment Not Reportable 05/14/19 05:21 RBC Morphology Not Reportable 05/14/19 05:21 Dimorphic RBCs Not Reportable 05/14/19 05:21 Polychromasia Not Reportable 05/14/19 05:21 Hypochromasia Not Reportable 05/14/19 05:21 Poikilocytosis Not Reportable 05/14/19 05:21 Anisocytosis Not Reportable 05/14/19 05:21 Microcytosis Not Reportable 05/14/19 05:21 Macrocytosis Not Reportable 05/14/19 05:21 Spherocytes Not Reportable 05/14/19 05:21 Pappenheimer Bodies Not Reportable 05/14/19 05:21 Sickle Cells Not Reportable 05/14/19 05:21 Target Cells Not Reportable 05/14/19 05:21 Tear Drop Cells Few 05/14/19 05:21 Ovalocytes Not Reportable 05/14/19 05:21 Helmet Cells Not Reportable 05/14/19 05:21 [place] Bodies Not Reportable 05/14/19 05:21 [place] Rings Not Reportable 05/14/19 05:21 [place] Cells Not Reportable 05/14/19 05:21 Bite Cells Not Reportable 05/14/19 05:21 Crenated Cell Not Reportable 05/14/19 05:21 Elliptocytes Few 05/14/19 05:21 Acanthocytes (Spur) Not Reportable 05/14/19 05:21 Rouleaux Not Reportable 05/14/19 05:21 Hemoglobin C Crystals Not Reportable 05/14/19 05:21 Schistocytes Not Reportable 05/14/19 05:21 Malaria parasites Not Reportable 05/14/19 05:21 [place] Bodies Not Reportable 05/14/19 05:21 Hem Pathologist Commnt No 05/14/19 05:21 PT 14.7 Sec. (12.2-14.9) 05/13/19 12:01 INR 1.13 (0.87-1.13) 05/13/19 12:01 APTT 23.5 Sec. (24.2-36.6) L 05/13/19 12:01 ABG pH 7.388 pH Units (7.350-7.450) 05/12/19 04:36 ABG pCO2 38.5 mm Hg 05/12/19 04:36 ABG pO2 79.4 mm Hg (80.0-90.0) L 05/12/19 04:36 ABG HCO3 22.7 mmol/L (20.0-26.0) 05/12/19 04:36 ABG O2 Saturation 96.0 % (95.0-99.0) 05/12/19 04:36 ABG O2 Content 14.5 (0.0-44) 05/12/19 04:36 ABG Base Excess -2.0 mmol/L (-2.0-3.0) 05/12/19 04:36 ABG Hemoglobin 10.9 gm/dl (12.0-16.0) L 05/12/19 04:36 ABG Carboxyhemoglobin 1.4 % (0.0-5.0) 05/12/19 04:36 ABG Methemoglobin 0.7 % (0.0-1.5) 05/12/19 04:36 Oxyhemoglobin 94.0 % (95.0-99.0) L 05/12/19 04:36 FiO2 35 % 05/12/19 04:36 Sodium 135 mmol/L (137-145) L 05/15/19 07:15 Potassium 3.5 mmol/L (3.6-5.0) L 05/15/19 07:15 Chloride 94.1 mmol/L (98-107) L 05/15/19 07:15 Carbon Dioxide 21 mmol/L (22-30) L 05/15/19 07:15 Anion Gap 23 mmol/L 05/15/19 07:15 BUN 37 mg/dL (7-17) H 05/15/19 07:15 Creatinine 3.3 mg/dL (0.7-1.2) H 05/15/19 07:15 Estimated GFR 16 ml/min 05/15/19 07:15 BUN/Creatinine Ratio 11 % 05/15/19 07:15 Glucose 299 mg/dL (65-100) H 05/15/19 07:15 POC Glucose 454 (70-105) H 05/17/19 05:52 Hemoglobin A1c 5.6 % (4-6) 04/30/19 11:32 Calcium 9.3 mg/dL (8.4-10.2) 05/15/19 07:15 Phosphorus 12.90 mg/dL (2.5-4.5) H 05/03/19 09:44 Magnesium 1.50 mg/dL (1.7-2.3) L 05/11/19 13:00 Total Bilirubin 0.40 mg/dL (0.1-1.2) 05/01/19 12:43 AST 39 units/L (5-40) 05/01/19 12:43 ALT 23 units/L (7-56) 05/01/19 12:43 Alkaline Phosphatase 102 units/L (35-129) 05/01/19 12:43 Total Creatine Kinase Cancelled 04/30/19 14:20 CK-MB (CK-2) Cancelled 04/30/19 14:20 CK-MB (CK-2) Rel Index Cancelled 04/30/19 14:20 Troponin T 0.117 ng/mL (0.00-0.029) H* 04/30/19 14:20 NT-Pro-B Natriuret Pep 55313 pg/mL (0-900) H 04/30/19 14:20 Total Protein 6.6 g/dL (6.3-8.2) 05/01/19 12:43 Albumin 4.0 g/dL (3.9-5) 05/01/19 12:43 Albumin/Globulin Ratio 1.5 % 05/01/19 12:43 Triglycerides 380 mg/dL (2-149) H 05/06/19 04:20 Cholesterol 303 mg/dL (50-199) H 04/30/19 14:20 LDL Cholesterol Direct 190 mg/dL (50-130) H 04/30/19 14:20 HDL Cholesterol 105 mg/dL (40-59) H 04/30/19 14:20 Cholesterol/HDL Ratio 2.88 % 04/30/19 14:20 TSH 0.220 mlU/mL (0.270-4.200) L 05/11/19 13:00 Free T4 0.70 ng/dL (0.76-1.46) L 05/11/19 13:00 Hepatitis A IgM Ab Non-reactive (NonReactive) 04/30/19 14:20 Hep Bs Antigen Non-reactive (Negative) 04/30/19 14:20 Hep B Core IgM Ab Non-reactive (NonReactive) 04/30/19 14:20 Hepatitis C Antibody Non-reactive (NonReactive) 04/30/19 14:20 [place]aver[place]/IV: Voiding Method Diaper IV Catheter Type [Left Upper Mid-line arm] IV Catheter Type [Left Mid-line Subclavian] IV Catheter Type [Right Upper INT / Saline Lock arm] IV Catheter Type [Right Hand] INT / Saline Lock IV Catheter Type [Left Forearm INT / Saline Lock ] IV Catheter Type [Right VAS Cath Internal Jugular] Active Medications - Current Medications Current Medications: Generic Name Dose Route Start Last Admin Trade Name Freq PRN Reason Stop Dose Admin Acetaminophen 650 mg 04/30/19 17:44 05/05/19 15:22 Tylenol PO 650 mg Q4H PRN Administration Pain MILD(1-3)/Fever >100.5/HERRMANN Albuterol 2.5 mg 04/30/19 18:32 05/02/19 04:49 Proventil IH 2.5 mg Q3H PRN Administration Shortness Of Breath Albuterol/Ipratropium 1 ampul 05/11/19 14:00 05/16/19 20:07 Duoneb *Not For Prn Use* IH 1 ampul TIDRT KVNG Administration Amiodarone HCl 200 mg 05/12/19 10:00 05/17/19 10:18 Cordarone PO 200 mg QDAY KVNG Administration Lipase/Protease/Amylase 1 each 05/04/19 14:58 Pancrejessica Gould 10,500 Unit FEEDTUBE PRN PRN For Clogged Feeding Tube Arformoterol Tartrate 15 mcg 05/01/19 08:00 05/16/19 20:07 Иван Hebert IH Not Given Q12HRT KVNG Aspirin 81 mg 05/11/19 10:00 05/17/19 10:21 Baby Aspirin PO 81 mg QDAY KVNG Administration Budesonide 0.5 mg 05/03/19 11:00 05/16/19 20:07 Pulmicort IH 0.5 mg Q12HRT KVNG Administration Buspirone HCl 15 mg 05/04/19 10:00 05/17/19 10:18 Buspar PO 15 mg BID KVNG Administration Diltiazem HCl 60 mg 05/15/19 18:00 05/17/19 05:57 Cardizem PO 60 mg Q6HR KVNG Administration Famotidine 20 mg 05/17/19 10:00 05/17/19 10:18 Pepcid PO 20 mg DAILY KVNG Administration Fentanyl 50 mcg 05/11/19 10:00 05/15/19 18:03 Sublimaze IV 50 mcg Q2H PRN Administration AGITATION Hydralazine HCl 5 mg 05/01/19 22:47 05/16/19 10:35 Apresoline IV 5 mg Q6HR PRN Administration SBP > 160 AND/OR DBP > 100 Hydralazine HCl 50 mg 05/16/19 14:00 05/17/19 05:57 Apresoline PO 50 mg Q8HR [facility] Administration Hydrophilic Ointment 1 applic 05/04/19 09:42 Vaseline Lip Therapy TP Q2HR PRN Dry Lips Sodium Chloride 100 mls @ 999 mls/hr 04/30/19 13:29 Nacl 0.9% IV ALBINO PRN Hypotension Sodium Chloride 100 mls @ 999 mls/hr 05/17/19 08:09 Nacl 0.9% IV ALBINO PRN Hypotension Insulin Glargine 20 units 05/17/19 22:00 Lantus SUB-Q QHS [facility] Insulin Human Lispro 0 unit 05/05/19 18:00 05/17/19 05:56 Humalog SUB-Q 10 unit Q6HR [facility] Administration Protocol Lorazepam 1 mg 05/02/19 11:08 05/17/19 08:18 Ativan IV 1 mg Q4H PRN Administration Anxiety Methylprednisolone Sodium Succinate 20 mg 05/17/19 08:29 05/17/19 10:21 Solu-Medrol IV 20 mg Q8H KVNG Administration Montelukast Sodium 10 mg 04/30/19 19:00 05/16/19 18:02 Singulair PO 10 mg QPM [facility] Administration Multi-Ingred Cream/Lotion/Oil/Oint 1 applic 05/04/19 09:42 Artificial Tears Ophth Oint OU Q4HR PRN Dry Eye(s) Pravastatin Sodium 40 mg 04/30/19 22:00 05/16/19 22:44 Pravachol PO 40 mg QHS KVNG Administration Simple Syrup 15 ml 05/04/19 14:58 Simple Syrup FEEDTUBE PRN PRN Hypoglycemia Simple Syrup 30 ml 05/04/19 14:58 Simple Syrup FEEDTUBE PRN PRN Hypoglycemia Sodium Bicarbonate 325 mg 05/04/19 14:58 Sodium Bicarbonate FEEDTUBE PRN PRN For Clogged Feeding Tube Sodium Chloride 10 ml 04/30/19 22:00 05/17/19 10:17 Sodium Chloride Flush Syringe 10 Ml IV 10 ml BID KVNG Administration Sodium Chloride 10 ml 04/30/19 17:44 05/15/19 09:53 Sodium Chloride Flush Syringe 10 Ml IV 10 ml PRN PRN Administration LINE FLUSH Nutrition/Malnutrition Assess - Dietary Evaluation Nutrition/Malnutrition Findings: Nutrition Notes Start: 05/04/19 11:09 Freq: Status: Active Protocol: Document 05/14/19 14:49 LM (Rec: 05/14/19 14:53 LM [email or web address]) Nutrition Notes Initial or Follow up Reassessment Current Diet Nepro 1.8 at 30ml/hr Labs/Tests BUN 79 Cr 5.7 BG 243 Pertinent Medications Reviewed Height 5 ft Weight 46.8 kg [place] Body Weight (kg) 45.45 BMI 20.1 Subjective/Other Information Per RN, pt was restarted last night via PEG and is running at 20 ml/hr and tolerating. RN stated he will increase to 30 ml/hr today. Percent of energy/protein needs met: 100%/98% Burn Absent Trauma Absent GI Symptoms None Difficulty In Swallowing Current % PO Negligible Minimum of two criteria Yes Interpretation of Weight Loss (severe) >5% in 1 month Fluid Accumulation Mild (non-severe) Reduced Audio Visual Manager Strength Measurably Reduced (severe) #2 Nutrition Diagnosis Inadequate oral intake Diagnosis Progress(for reassessment Continues documentation) #1 Nutrition Diagnosis Malnutrition Diagnosis Progress(for reassessment Continues documentation) Is patient on ventilator? Yes Is Patient Ambulatory and/or Out of Bed No [facility] 1062.132 Calculation Used for Recommendations [facility] Additional Notes Protein: 59-98g (1.2-2g/kg) Fluid: per Nutrition Intervention Change Diet Order: TF Nutrition Support: Nepro 1.8 at 30 ml/hr Flush 130 ml q4h Kcal 1,296 Protein (gm) 58 Fluid (mL) 523 Goal #1 Meet at least 80% of kcal and protein needs via TF Anticipated Discharge Needs: Unable to determine at this time Follow-Up By: 05/21/19 Additional Comments F/U for TF tolerance
--- NOTE | 2019-05-17 11:54 | Progress Note ---
Assessment and Plan Paroxysmal Afib -currently in sinus rhythm -on amiodarone and diltiazem for suppression Respiratory failure -s/p vent to trach ESRD on hemodialysis Severe COPD Hx of coronary artery disease s/p CABG in 2006 Mild cardiomyopathy echocardiogram done 01/2018 reports an ejection fraction of 40-45%. echocardiogram 12/2018 reports an ejection fraction 45-50%. MPI 12/2018 - fixed basal lateral wall defect, no ischemia Hyperlipidemia History of DVT -not on anticoagulation secondary to hematuria Recommendations: Continue amiodarone and cardizem for suppression of atrial fibrillation. Patient is not a candidate for longterm oral anticoagulation or aggressive cardiac therapies. Otherwise, conservative cardiac management. Subjective Date of service: 05/17/19 Principal diagnosis: Acute resp failure,COPd exacerbation Interval history: Stable sinus rhythm on telemetry. Undergoing dialysis. Objective Vital Signs Temp Pulse Pulse Pulse Resp Resp BP 05/17/19 11:17 97.5 F L 98 H 21 161/105 05/17/19 11:02 101 H 150/86 05/17/19 11:00 102 H 23 138/76 05/17/19 10:45 102 H 138/76 05/17/19 10:31 105 H 136/74 05/17/19 10:15 100 H 135/90 05/17/19 10:00 105 H 24 142/94 05/17/19 09:45 94 H 153/72 05/17/19 09:30 94 H 126/88 05/17/19 09:15 94 H 128/88 05/17/19 09:00 101 H 28 H 123/73 05/17/19 08:45 105 H 134/77 05/17/19 08:30 105 H 144/84 05/17/19 08:15 104 H 164/92 05/17/19 08:00 97.6 F 98 H 95 H 26 H 171/80 05/17/19 07:45 99.7 F H 100 H 27 H 171/80 05/17/19 07:00 101 H 30 H 180/87 05/17/19 06:00 91 H 26 H 144/83 05/17/19 05:57 85 161/76 05/17/19 05:00 93 H 23 161/76 05/17/19 04:20 89 161/76 05/17/19 04:00 98.4 F 90 91 H 24 161/76 05/17/19 03:00 90 24 150/88 05/17/19 02:00 92 H 24 154/88 05/17/19 01:18 95 H 136/70 05/17/19 01:00 91 H 24 173/81 05/17/19 00:26 05/17/19 00:18 97 H 173/81 05/17/19 00:05 98.3 F 05/17/19 00:00 101 H 81 25 H 173/81 05/16/19 23:00 99 H 26 H 173/81 05/16/19 22:44 87 165/57 05/16/19 22:00 99 H 24 165/57 05/16/19 21:00 109 H 28 H 187/88 05/16/19 20:13 107 H 25 H 05/16/19 20:07 92 H 166/82 05/16/19 20:00 98.2 F 101 H 93 H 30 H 166/82 05/16/19 19:00 103 H 31 H 170/80 05/16/19 18:18 115 H 23 162/81 05/16/19 18:01 106 H 162/81 05/16/19 18:00 103 H 22 162/81 05/16/19 17:00 110 H 28 H 157/85 05/16/19 16:00 99.7 F H 119 H 102 H 25 H 139/80 05/16/19 15:29 109 H 23 139/80 05/16/19 15:10 111 H 139/80 05/16/19 15:00 110 H 22 164/77 05/16/19 14:00 125 H 25 H 164/77 05/16/19 13:02 117 H 106 H 30 H 24 171/84 05/16/19 13:00 111 H 22 171/84 05/16/19 12:45 103 H 149/76 05/16/19 12:43 110 H 149/76 05/16/19 12:00 98.7 F 103 H 21 149/76 05/16/19 11:57 102 H 24 Pulse Ox Pulse Ox Pulse Ox 05/17/19 11:17 99 05/17/19 11:02 05/17/19 11:00 98 05/17/19 10:45 05/17/19 10:31 05/17/19 10:15 05/17/19 10:00 98 05/17/19 09:45 05/17/19 09:30 05/17/19 09:15 05/17/19 09:00 99 05/17/19 08:45 05/17/19 08:30 05/17/19 08:15 100 05/17/19 08:00 100 05/17/19 07:45 100 05/17/19 07:00 96 05/17/19 06:00 99 05/17/19 05:57 05/17/19 05:00 99 05/17/19 04:20 100 05/17/19 04:00 99 05/17/19 03:00 99 05/17/19 02:00 100 05/17/19 01:18 05/17/19 01:00 05/17/19 00:26 100 05/17/19 00:18 100 05/17/19 00:05 05/17/19 00:00 100 05/16/19 23:00 100 05/16/19 22:44 05/16/19 22:00 100 05/16/19 21:00 99 05/16/19 20:13 05/16/19 20:07 100 05/16/19 20:00 96 05/16/19 19:00 98 05/16/19 18:18 100 05/16/19 18:01 05/16/19 18:00 98 05/16/19 17:00 97 05/16/19 16:00 99 05/16/19 15:29 100 100 05/16/19 15:10 05/16/19 15:00 99 05/16/19 14:00 97 05/16/19 13:02 99 05/16/19 13:00 98 05/16/19 12:45 99 05/16/19 12:43 05/16/19 12:00 98 05/16/19 11:57 100 - Physical Examination General: No Apparent Distress Neck: Positive: Other (vent to trach) Cardiac: Positive: Tachycardia
[2019-05-17] MEDS: ARFORMOTEROL 15 MCG/2 ML NEBU IH SCH ×2 (13:20→20:44)
[2019-05-17] MEDS: IPRATROPIUM/ALBUTEROL SULFATE 3 ML AMPUL.NEB IH SCH ×3 (13:21→20:44)
[2019-05-17] MEDS: BUDESONIDE 0.5 MG/2 ML NEBU IH SCH ×2 (13:21→20:44)
[2019-05-17 15:29] LABS: Hematocrit 29.8 % (30.3-42.9); Hemoglobin 9.5 gm/dl (10.1-14.3); Mean Corpuscular HGB Conc 32 % (30-34); Mean Corpuscular Volume 90 fl (79-97); Red Blood Count 3.31 M/mm3 (3.65-5.03); Red Cell Distribution Width 17.2 % (13.2-15.2)
[2019-05-17 15:30] LABS: Platelet Count 79 K/mm3 (140-440)
[2019-05-17] MEDS: fentaNYL 100 MCG/2 ML INJ IV PRN (16:47)
[2019-05-17] MEDS: MONTELUKAST 10 MG TAB PO SCH (17:39)
[2019-05-17] MEDS ORDERED: INSULIN GLARGINE 100 UNITS/ML SUB-Q SCH (22:00)
[2019-05-17] MEDS: PRAVASTATIN 40 MG TAB PO SCH (22:13)
[2019-05-18] MEDS: INSULIN LISPRO 100 UNIT/ML SUB-Q SCH ×3 (00:37→11:13)
[2019-05-18] MEDS: dilTIAZem 60 MG TAB PO SCH ×3 (00:38→11:11)
[2019-05-18] MEDS: methylPREDNISolone Sod Succinate 125 MG/2 ML INJ IV SCH ×2 (00:42→08:31)
[2019-05-18] MEDS: fentaNYL 100 MCG/2 ML INJ IV PRN ×2 (02:38→13:14)
[2019-05-18] MEDS: hydrALAZINE 25 MG TAB PO SCH ×2 (07:15→13:15)
[2019-05-18] MEDS: IPRATROPIUM/ALBUTEROL SULFATE 3 ML AMPUL.NEB IH SCH ×2 (08:05→15:17)
[2019-05-18] MEDS: BUDESONIDE 0.5 MG/2 ML NEBU IH SCH (08:05)
[2019-05-18] MEDS: ARFORMOTEROL 15 MCG/2 ML NEBU IH SCH (08:09)
--- NOTE | 2019-05-18 09:15 | Progress Note ---
Assessment and Plan 78 y/o female with acute on chronic respiratory failure secondary to volume overload, resolved. 1. Continue steroids at 20q8 2. Diprovan now off, only PRN meds available if needed. 3. Continue HD per renal 4. Started Buspar prior to intubation, will continue. Patient is not on Klonopin 5. Midline placement, done 6. NG out and peg in, working well. 7. LTACH pending. Patient has been in intensive care for 17 days. Spoke with CM. 8. Will speak with renal and cards. Can we just place her on Dilt XL 360? May need additional BP meds as well but would like to defer to them. CCT 31 minutes. Subjective Date of service: 05/18/19 Principal diagnosis: Acute resp failure,COPd exacerbation Interval history: No acute events. HD on yesterday. BP elevated this am. Objective Vital Signs - 12hr 05/17/19 05/17/19 05/17/19 22:00 22:09 22:30 Temperature 98.3 F Pulse Rate 105 H 95 H Pulse Rate [ Anterior Bilateral Throughout] Pulse Rate [ From Monitor] Respiratory 26 H Rate Respiratory Rate [Anterior Bilateral Throughout] Blood Pressure 186/93 186/93 O2 Sat by Pulse 97 Oximetry O2 Sat by Pulse Oximetry [ Assessment] 05/17/19 05/17/19 05/17/19 23:00 23:06 23:57 Temperature Pulse Rate 102 H 102 H 93 H Pulse Rate [ Anterior Bilateral Throughout] Pulse Rate [ From Monitor] Respiratory 26 H 28 H Rate Respiratory Rate [Anterior Bilateral Throughout] Blood Pressure 173/92 173/92 173/92 O2 Sat by Pulse 99 100 99 Oximetry O2 Sat by Pulse Oximetry [ Assessment] 05/18/19 05/18/19 05/18/19 00:00 00:38 01:00 Temperature Pulse Rate 100 H 88 105 H Pulse Rate [ Anterior Bilateral Throughout] Pulse Rate [ 103 H From Monitor] Respiratory 26 H 28 H Rate Respiratory Rate [Anterior Bilateral Throughout] Blood Pressure 183/97 183/97 189/93 O2 Sat by Pulse 98 98 Oximetry O2 Sat by Pulse Oximetry [ Assessment] 05/18/19 05/18/19 05/18/19 01:36 02:00 03:00 Temperature 98.3 F Pulse Rate 96 H 94 H Pulse Rate [ Anterior Bilateral Throughout] Pulse Rate [ From Monitor] Respiratory 25 H 24 Rate Respiratory Rate [Anterior Bilateral Throughout] Blood Pressure 189/93 117/65 O2 Sat by Pulse 100 Oximetry O2 Sat by Pulse Oximetry [ Assessment] 05/18/19 05/18/19 05/18/19 03:34 04:00 04:35 Temperature Pulse Rate 98 H 80 Pulse Rate [ Anterior Bilateral Throughout] Pulse Rate [ 95 H From Monitor] Respiratory 26 H Rate Respiratory Rate [Anterior Bilateral Throughout] Blood Pressure 101/66 101/66 O2 Sat by Pulse 100 100 Oximetry O2 Sat by Pulse 100 Oximetry [ Assessment] 05/18/19 05/18/19 05/18/19 04:53 05:00 06:00 Temperature 98.3 F Pulse Rate 91 H 98 H Pulse Rate [ Anterior Bilateral Throughout] Pulse Rate [ From Monitor] Respiratory 18 29 H Rate Respiratory Rate [Anterior Bilateral Throughout] Blood Pressure 198/88 156/92 O2 Sat by Pulse 98 99 Oximetry O2 Sat by Pulse Oximetry [ Assessment] 05/18/19 05/18/19 05/18/19 07:00 07:15 07:16 Temperature Pulse Rate 98 H 96 H 96 H Pulse Rate [ Anterior Bilateral Throughout] Pulse Rate [ From Monitor] Respiratory 24 Rate Respiratory Rate [Anterior Bilateral Throughout] Blood Pressure 156/95 156/95 156/95 O2 Sat by Pulse 98 Oximetry O2 Sat by Pulse Oximetry [ Assessment] 05/18/19 05/18/19 05/18/19 08:00 08:10 08:11 Temperature Pulse Rate 98 H 98 H Pulse Rate [ 99 H Anterior Bilateral Throughout] Pulse Rate [ From Monitor] Respiratory 29 H Rate Respiratory 24 Rate [Anterior Bilateral Throughout] Blood Pressure 170/88 170/88 O2 Sat by Pulse 96 99 Oximetry O2 Sat by Pulse 99 Oximetry [ Assessment] Constitutional: other (Sedated and orally intubated) Eyes: non-icteric ENT: other (orally intubated and sedated.) Neck: supple Effort: mildly labored Ascultation: Bilateral: diminished breath sounds, rales, rhonchi Percussion: Bilateral: not dull Cardiovascular: other (sinus tach) Gastrointestinal: normoactive bowel sounds Neurologic: unable to assess CBC and BMP: 05/17/19 15:08 05/17/19 15:08 ABG, PT/INR, D-dimer: ABG ABG pH 7.388 pH Units (7.350-7.450) 05/12/19 04:36 ABG pCO2 38.5 mm Hg 05/12/19 04:36 ABG pO2 79.4 mm Hg (80.0-90.0) L 05/12/19 04:36 ABG O2 Saturation 96.0 % (95.0-99.0) 05/12/19 04:36 PT/INR, D-dimer PT 14.7 Sec. (12.2-14.9) 05/13/19 12:01 INR 1.13 (0.87-1.13) 05/13/19 12:01 Abnormal lab findings: Abnormal Labs 04/30/19 04/30/19 04/30/19 10:12 11:32 11:32 WBC RBC Hgb Hct RDW 17.1 H Plt Count 84 L Lymph % (Auto) 10.9 L [place] % (Auto) 7.4 H Lymph # 0.8 L Seg Neutrophils % 80.6 H Seg Neuts % (Manual) Lymphocytes % (Manual) Nucleated RBC % Seg Neutrophils # Seg Neutrophils # Man Lymphocytes # (Manual) Monocytes # (Manual) PT 28.3 H INR 2.59 H APTT ABG pH 7.347 L ABG pO2 221.9 H ABG HCO3 ABG O2 Saturation 99.3 H ABG Base Excess -2.2 L ABG Hemoglobin Oxyhemoglobin Sodium Potassium Chloride Carbon Dioxide BUN Creatinine Glucose POC Glucose Phosphorus Magnesium Troponin T NT-Pro-B Natriuret Pep Triglycerides Cholesterol LDL Cholesterol Direct HDL Cholesterol TSH Free T4 04/30/19 04/30/19 04/30/19 14:20 15:23 18:05 WBC RBC Hgb Hct RDW Plt Count Lymph % (Auto) [place] % (Auto) Lymph # Seg Neutrophils % Seg Neuts % (Manual) Lymphocytes % (Manual) Nucleated RBC % Seg Neutrophils # Seg Neutrophils # Man Lymphocytes # (Manual) Monocytes # (Manual) PT INR APTT 37.2 H ABG pH ABG pO2 79.2 L ABG HCO3 ABG O2 Saturation ABG Base Excess ABG Hemoglobin Oxyhemoglobin 94.4 L Sodium 146 H Potassium 3.2 L Chloride Carbon Dioxide BUN 39 H Creatinine 2.6 H Glucose POC Glucose Phosphorus Magnesium Troponin T 0.117 H* NT-Pro-B Natriuret Pep [id number] H Triglycerides 178 H Cholesterol 303 H LDL Cholesterol Direct 190 H HDL Cholesterol 105 H TSH Free T4 04/30/19 05/01/19 05/01/19 22:20 00:48 04:46 WBC RBC Hgb Hct RDW Plt Count Lymph % (Auto) [place] % (Auto) Lymph # Seg Neutrophils % Seg Neuts % (Manual) Lymphocytes % (Manual) Nucleated RBC % Seg Neutrophils # Seg Neutrophils # Man Lymphocytes # (Manual) Monocytes # (Manual) PT INR APTT ABG pH ABG pO2 98.3 H ABG HCO3 ABG O2 Saturation ABG Base Excess ABG Hemoglobin Oxyhemoglobin Sodium Potassium Chloride Carbon Dioxide BUN Creatinine Glucose POC Glucose 108 H 142 H Phosphorus Magnesium Troponin T NT-Pro-B Natriuret Pep Triglycerides Cholesterol LDL Cholesterol Direct HDL Cholesterol TSH Free T4 05/01/19 05/01/19 05/01/19 12:43 12:43 13:27 WBC RBC Hgb Hct RDW 16.4 H Plt Count 132 L Lymph % (Auto) [place] % (Auto) Lymph # Seg Neutrophils % Seg Neuts % (Manual) 95.0 H Lymphocytes % (Manual) 3.0 L Nucleated RBC % Seg Neutrophils # Seg Neutrophils # Man Lymphocytes # (Manual) 0.2 L Monocytes # (Manual) PT INR APTT ABG pH ABG pO2 ABG HCO3 ABG O2 Saturation ABG Base Excess ABG Hemoglobin Oxyhemoglobin Sodium Potassium Chloride 95.1 L Carbon Dioxide 21 L BUN 29 H Creatinine 3.2 H Glucose 137 H POC Glucose 114 H Phosphorus Magnesium Troponin T NT-Pro-B Natriuret Pep Triglycerides Cholesterol LDL Cholesterol Direct HDL Cholesterol TSH Free T4 05/01/19 05/02/19 05/02/19 18:41 00:01 05:40 WBC RBC Hgb Hct RDW Plt Count Lymph % (Auto) [place] % (Auto) Lymph # Seg Neutrophils % Seg Neuts % (Manual) Lymphocytes % (Manual) Nucleated RBC % Seg Neutrophils # Seg Neutrophils # Man Lymphocytes # (Manual) Monocytes # (Manual) PT INR APTT ABG pH ABG pO2 ABG HCO3 ABG O2 Saturation ABG Base Excess ABG Hemoglobin Oxyhemoglobin Sodium Potassium Chloride Carbon Dioxide BUN Creatinine Glucose POC Glucose 127 H 110 H 135 H Phosphorus Magnesium Troponin T NT-Pro-B Natriuret Pep Triglycerides Cholesterol LDL Cholesterol Direct HDL Cholesterol TSH Free T4 05/02/19 05/02/19 05/03/19 13:06 19:14 09:44 WBC RBC Hgb Hct RDW 17.1 H Plt Count Lymph % (Auto) [place] % (Auto) Lymph # Seg Neutrophils % Seg Neuts % (Manual) Lymphocytes % (Manual) Nucleated RBC % Seg Neutrophils # Seg Neutrophils # Man Lymphocytes # (Manual) Monocytes # (Manual) PT INR APTT ABG pH ABG pO2 ABG HCO3 ABG O2 Saturation ABG Base Excess ABG Hemoglobin Oxyhemoglobin Sodium Potassium Chloride Carbon Dioxide BUN Creatinine Glucose POC Glucose 152 H 117 H Phosphorus Magnesium Troponin T NT-Pro-B Natriuret Pep Triglycerides Cholesterol LDL Cholesterol Direct HDL Cholesterol TSH Free T4 05/03/19 05/03/19 05/03/19 09:44 10:13 18:45 WBC RBC Hgb Hct RDW Plt Count Lymph % (Auto) [place] % (Auto) Lymph # Seg Neutrophils % Seg Neuts % (Manual) Lymphocytes % (Manual) Nucleated RBC % Seg Neutrophils # Seg Neutrophils # Man Lymphocytes # (Manual) Monocytes # (Manual) PT INR APTT ABG pH 7.166 L* ABG pO2 ABG HCO3 ABG O2 Saturation 94.5 L ABG Base Excess -8.8 L ABG Hemoglobin 11.6 L Oxyhemoglobin 92.4 L Sodium Potassium 6.2 H* D Chloride 93.2 L Carbon Dioxide 13 L D BUN 93 H Creatinine 7.2 H D Glucose 138 H POC Glucose 128 H Phosphorus 12.90 H Magnesium 2.70 H Troponin T NT-Pro-B Natriuret Pep Triglycerides Cholesterol LDL Cholesterol Direct HDL Cholesterol TSH Free T4 05/03/19 05/04/19 05/04/19 19:40 01:04 03:51 WBC 11.2 H RBC Hgb Hct RDW 16.6 H Plt Count Lymph % (Auto) [place] % (Auto) Lymph # Seg Neutrophils % Seg Neuts % (Manual) Lymphocytes % (Manual) Nucleated RBC % Seg Neutrophils # Seg Neutrophils # Man Lymphocytes # (Manual) Monocytes # (Manual) PT INR APTT ABG pH ABG pO2 ABG HCO3 ABG O2 Saturation ABG Base Excess ABG Hemoglobin Oxyhemoglobin Sodium Potassium Chloride 92.7 L Carbon Dioxide BUN 26 H Creatinine 3.2 H D Glucose 129 H POC Glucose 134 H Phosphorus Magnesium Troponin T NT-Pro-B Natriuret Pep Triglycerides Cholesterol LDL Cholesterol Direct HDL Cholesterol TSH Free T4 05/04/19 05/04/19 05/04/19 03:51 06:05 12:33 WBC RBC Hgb Hct RDW Plt Count Lymph % (Auto) [place] % (Auto) Lymph # Seg Neutrophils % Seg Neuts % (Manual) Lymphocytes % (Manual) Nucleated RBC % Seg Neutrophils # Seg Neutrophils # Man Lymphocytes # (Manual) Monocytes # (Manual) PT INR APTT ABG pH ABG pO2 ABG HCO3 ABG O2 Saturation ABG Base Excess ABG Hemoglobin Oxyhemoglobin Sodium Potassium Chloride 92.5 L Carbon Dioxide 19 L BUN 39 H Creatinine 4.3 H Glucose 148 H POC Glucose 138 H 190 H Phosphorus Magnesium Troponin T NT-Pro-B Natriuret Pep Triglycerides Cholesterol LDL Cholesterol Direct HDL Cholesterol TSH Free T4 05/04/19 05/04/19 05/04/19 18:25 23:57 Unknown WBC RBC Hgb Hct RDW Plt Count Lymph % (Auto) [place] % (Auto) Lymph # Seg Neutrophils % Seg Neuts % (Manual) Lymphocytes % (Manual) Nucleated RBC % Seg Neutrophils # Seg Neutrophils # Man Lymphocytes # (Manual) Monocytes # (Manual) PT INR APTT ABG pH ABG pO2 ABG HCO3 ABG O2 Saturation ABG Base Excess -3.4 L ABG Hemoglobin Oxyhemoglobin 94.5 L Sodium Potassium Chloride Carbon Dioxide BUN Creatinine Glucose POC Glucose 190 H 119 H Phosphorus Magnesium Troponin T NT-Pro-B Natriuret Pep Triglycerides Cholesterol LDL Cholesterol Direct HDL Cholesterol TSH Free T4 05/05/19 05/05/19 05/05/19 03:45 06:09 12:07 WBC RBC Hgb Hct RDW Plt Count Lymph % (Auto) [place] % (Auto) Lymph # Seg Neutrophils % Seg Neuts % (Manual) Lymphocytes % (Manual) Nucleated RBC % Seg Neutrophils # Seg Neutrophils # Man Lymphocytes # (Manual) Monocytes # (Manual) PT INR APTT ABG pH 7.456 H ABG pO2 64.8 L ABG HCO3 ABG O2 Saturation 93.6 L ABG Base Excess ABG Hemoglobin Oxyhemoglobin 91.4 L Sodium Potassium Chloride Carbon Dioxide BUN Creatinine Glucose POC Glucose 173 H 260 H Phosphorus Magnesium Troponin T NT-Pro-B Natriuret Pep Triglycerides Cholesterol LDL Cholesterol Direct HDL Cholesterol TSH Free T4 05/05/19 05/06/19 05/06/19 18:34 00:49 04:20 WBC 12.8 H RBC Hgb Hct RDW 16.9 H Plt Count Lymph % (Auto) [place] % (Auto) Lymph # Seg Neutrophils % Seg Neuts % (Manual) 93.0 H Lymphocytes % (Manual) 2.0 L Nucleated RBC % 1.0 H Seg Neutrophils # Seg Neutrophils # Man 11.9 H Lymphocytes # (Manual) 0.3 L Monocytes # (Manual) PT INR APTT ABG pH ABG pO2 ABG HCO3 ABG O2 Saturation ABG Base Excess ABG Hemoglobin Oxyhemoglobin Sodium Potassium Chloride Carbon Dioxide BUN Creatinine Glucose POC Glucose 334 H 230 H Phosphorus Magnesium Troponin T NT-Pro-B Natriuret Pep Triglycerides Cholesterol LDL Cholesterol Direct HDL Cholesterol TSH Free T4 05/06/19 05/06/19 05/06/19 04:20 04:20 05:39 WBC RBC Hgb Hct RDW Plt Count Lymph % (Auto) [place] % (Auto) Lymph # Seg Neutrophils % Seg Neuts % (Manual) Lymphocytes % (Manual) Nucleated RBC % Seg Neutrophils # Seg Neutrophils # Man Lymphocytes # (Manual) Monocytes # (Manual) PT INR APTT ABG pH ABG pO2 62.9 L ABG HCO3 ABG O2 Saturation 92.5 L ABG Base Excess ABG Hemoglobin Oxyhemoglobin 90.5 L Sodium Potassium Chloride 95.1 L Carbon Dioxide BUN 40 H Creatinine 3.6 H Glucose 267 H POC Glucose Phosphorus Magnesium Troponin T NT-Pro-B Natriuret Pep Triglycerides 380 H Cholesterol LDL Cholesterol Direct HDL Cholesterol TSH Free T4 05/06/19 05/06/19 05/06/19 06:08 11:15 12:42 WBC RBC Hgb Hct RDW Plt Count Lymph % (Auto) [place] % (Auto) Lymph # Seg Neutrophils % Seg Neuts % (Manual) Lymphocytes % (Manual) Nucleated RBC % Seg Neutrophils # Seg Neutrophils # Man Lymphocytes # (Manual) Monocytes # (Manual) PT INR APTT ABG pH 7.344 L ABG pO2 56.8 L ABG HCO3 ABG O2 Saturation 85.5 L ABG Base Excess ABG Hemoglobin Oxyhemoglobin 83.8 L Sodium Potassium Chloride Carbon Dioxide BUN Creatinine Glucose POC Glucose 325 H 168 H Phosphorus Magnesium Troponin T NT-Pro-B Natriuret Pep Triglycerides Cholesterol LDL Cholesterol Direct HDL Cholesterol TSH Free T4 05/06/19 05/07/19 05/07/19 17:30 00:33 05:25 WBC RBC Hgb Hct RDW Plt Count Lymph % (Auto) [place] % (Auto) Lymph # Seg Neutrophils % Seg Neuts % (Manual) Lymphocytes % (Manual) Nucleated RBC % Seg Neutrophils # Seg Neutrophils # Man Lymphocytes # (Manual) Monocytes # (Manual) PT INR APTT ABG pH ABG pO2 51.8 L ABG HCO3 ABG O2 Saturation 83.6 L ABG Base Excess -3.3 L ABG Hemoglobin Oxyhemoglobin 81.7 L Sodium Potassium Chloride Carbon Dioxide BUN Creatinine Glucose POC Glucose 172 H 131 H Phosphorus Magnesium Troponin T NT-Pro-B Natriuret Pep Triglycerides Cholesterol LDL Cholesterol Direct HDL Cholesterol TSH Free T4 05/07/19 05/07/19 05/07/19 06:31 13:21 15:15 WBC RBC Hgb Hct RDW Plt Count Lymph % (Auto) [place] % (Auto) Lymph # Seg Neutrophils % Seg Neuts % (Manual) Lymphocytes % (Manual) Nucleated RBC % Seg Neutrophils # Seg Neutrophils # Man Lymphocytes # (Manual) Monocytes # (Manual) PT INR APTT ABG pH 7.317 L ABG pO2 64.0 L ABG HCO3 ABG O2 Saturation 89.7 L ABG Base Excess ABG Hemoglobin Oxyhemoglobin 87.8 L Sodium Potassium Chloride Carbon Dioxide BUN Creatinine Glucose POC Glucose 223 H 200 H Phosphorus Magnesium Troponin T NT-Pro-B Natriuret Pep Triglycerides Cholesterol LDL Cholesterol Direct HDL Cholesterol TSH Free T4 05/07/19 05/07/19 05/07/19 18:40 19:35 21:39 WBC RBC Hgb Hct RDW Plt Count Lymph % (Auto) [place] % (Auto) Lymph # Seg Neutrophils % Seg Neuts % (Manual) Lymphocytes % (Manual) Nucleated RBC % Seg Neutrophils # Seg Neutrophils # Man Lymphocytes # (Manual) Monocytes # (Manual) PT INR APTT ABG pH ABG pO2 ABG HCO3 ABG O2 Saturation ABG Base Excess ABG Hemoglobin Oxyhemoglobin Sodium Potassium Chloride Carbon Dioxide BUN Creatinine Glucose POC Glucose 142 H 138 H Phosphorus Magnesium 1.60 L Troponin T NT-Pro-B Natriuret Pep Triglycerides Cholesterol LDL Cholesterol Direct HDL Cholesterol TSH Free T4 05/07/19 05/08/19 05/08/19 23:49 09:32 12:31 WBC RBC Hgb Hct RDW Plt Count Lymph % (Auto) [place] % (Auto) Lymph # Seg Neutrophils % Seg Neuts % (Manual) Lymphocytes % (Manual) Nucleated RBC % Seg Neutrophils # Seg Neutrophils # Man Lymphocytes # (Manual) Monocytes # (Manual) PT INR APTT ABG pH ABG pO2 65.1 L ABG HCO3 18.7 L ABG O2 Saturation 91.9 L ABG Base Excess -5.8 L ABG Hemoglobin Oxyhemoglobin 90.1 L Sodium Potassium Chloride Carbon Dioxide BUN Creatinine Glucose POC Glucose 195 H 298 H Phosphorus Magnesium Troponin T NT-Pro-B Natriuret Pep Triglycerides Cholesterol LDL Cholesterol Direct HDL Cholesterol TSH Free T4 05/08/19 05/08/19 05/08/19 13:54 14:44 14:44 WBC 15.3 H RBC Hgb Hct RDW 16.9 H Plt Count Lymph % (Auto) [place] % (Auto) Lymph # Seg Neutrophils % Seg Neuts % (Manual) Lymphocytes % (Manual) Nucleated RBC % Seg Neutrophils # Seg Neutrophils # Man Lymphocytes # (Manual) Monocytes # (Manual) PT INR APTT ABG pH 7.327 L ABG pO2 67.2 L ABG HCO3 18.4 L ABG O2 Saturation 91.6 L ABG Base Excess -6.8 L ABG Hemoglobin Oxyhemoglobin 89.6 L Sodium Potassium Chloride 91.3 L Carbon Dioxide 17 L BUN 64 H Creatinine 5.0 H Glucose 337 H POC Glucose Phosphorus Magnesium Troponin T NT-Pro-B Natriuret Pep Triglycerides Cholesterol LDL Cholesterol Direct HDL Cholesterol TSH Free T4 05/08/19 05/08/19 05/09/19 17:14 23:49 05:22 WBC RBC Hgb Hct RDW Plt Count Lymph % (Auto) [place] % (Auto) Lymph # Seg Neutrophils % Seg Neuts % (Manual) Lymphocytes % (Manual) Nucleated RBC % Seg Neutrophils # Seg Neutrophils # Man Lymphocytes # (Manual) Monocytes # (Manual) PT INR APTT ABG pH ABG pO2 ABG HCO3 ABG O2 Saturation ABG Base Excess ABG Hemoglobin Oxyhemoglobin Sodium Potassium Chloride Carbon Dioxide BUN Creatinine Glucose POC Glucose 396 H 322 H 239 H Phosphorus Magnesium Troponin T NT-Pro-B Natriuret Pep Triglycerides Cholesterol LDL Cholesterol Direct HDL Cholesterol TSH Free T4 05/09/19 05/09/19 05/09/19 07:14 07:14 11:39 WBC 13.6 H RBC Hgb Hct RDW 17.1 H Plt Count Lymph % (Auto) [place] % (Auto) Lymph # Seg Neutrophils % Seg Neuts % (Manual) 91.0 H Lymphocytes % (Manual) 2.0 L Nucleated RBC % 4.0 H Seg Neutrophils # Seg Neutrophils # Man 12.4 H Lymphocytes # (Manual) 0.3 L Monocytes # (Manual) PT INR APTT ABG pH ABG pO2 ABG HCO3 ABG O2 Saturation ABG Base Excess ABG Hemoglobin Oxyhemoglobin Sodium 135 L Potassium 5.3 H Chloride 93.5 L Carbon Dioxide 14 L BUN 85 H Creatinine 6.1 H Glucose 242 H POC Glucose 273 H Phosphorus Magnesium Troponin T NT-Pro-B Natriuret Pep Triglycerides Cholesterol LDL Cholesterol Direct HDL Cholesterol TSH Free T4 05/09/19 05/09/19 05/10/19 17:29 21:45 00:11 WBC RBC Hgb Hct RDW Plt Count Lymph % (Auto) [place] % (Auto) Lymph # Seg Neutrophils % Seg Neuts % (Manual) Lymphocytes % (Manual) Nucleated RBC % Seg Neutrophils # Seg Neutrophils # Man Lymphocytes # (Manual) Monocytes # (Manual) PT INR APTT ABG pH ABG pO2 ABG HCO3 ABG O2 Saturation ABG Base Excess ABG Hemoglobin Oxyhemoglobin Sodium Potassium Chloride Carbon Dioxide BUN Creatinine Glucose POC Glucose 190 H 190 H 247 H Phosphorus Magnesium Troponin T NT-Pro-B Natriuret Pep Triglycerides Cholesterol LDL Cholesterol Direct HDL Cholesterol TSH Free T4 05/10/19 05/10/19 05/10/19 05:14 05:14 05:42 WBC 21.0 H RBC Hgb Hct RDW 16.8 H Plt Count Lymph % (Auto) [place] % (Auto) Lymph # Seg Neutrophils % Seg Neuts % (Manual) 91.0 H Lymphocytes % (Manual) 2.0 L Nucleated RBC % 7.0 H Seg Neutrophils # Seg Neutrophils # Man 19.1 H Lymphocytes # (Manual) 0.4 L Monocytes # (Manual) 1.1 H PT INR APTT ABG pH ABG pO2 ABG HCO3 ABG O2 Saturation ABG Base Excess ABG Hemoglobin Oxyhemoglobin Sodium Potassium Chloride 92.2 L Carbon Dioxide 19 L BUN 111 H Creatinine 7.7 H Glucose 193 H POC Glucose 208 H Phosphorus Magnesium Troponin T NT-Pro-B Natriuret Pep Triglycerides Cholesterol LDL Cholesterol Direct HDL Cholesterol TSH Free T4 05/10/19 05/10/19 05/11/19 12:28 17:45 00:26 WBC RBC Hgb Hct RDW Plt Count Lymph % (Auto) [place] % (Auto) Lymph # Seg Neutrophils % Seg Neuts % (Manual) Lymphocytes % (Manual) Nucleated RBC % Seg Neutrophils # Seg Neutrophils # Man Lymphocytes # (Manual) Monocytes # (Manual) PT INR APTT ABG pH ABG pO2 ABG HCO3 ABG O2 Saturation ABG Base Excess ABG Hemoglobin Oxyhemoglobin Sodium Potassium Chloride Carbon Dioxide BUN Creatinine Glucose POC Glucose 275 H 214 H 244 H Phosphorus Magnesium Troponin T NT-Pro-B Natriuret Pep Triglycerides Cholesterol LDL Cholesterol Direct HDL Cholesterol TSH Free T4 05/11/19 05/11/19 05/11/19 04:08 04:23 04:23 WBC 20.5 H RBC Hgb Hct RDW 17.0 H Plt Count 134 L Lymph % (Auto) [place] % (Auto) Lymph # Seg Neutrophils % Seg Neuts % (Manual) 92.0 H Lymphocytes % (Manual) 1.0 L Nucleated RBC % 3.0 H Seg Neutrophils # Seg Neutrophils # Man 18.9 H Lymphocytes # (Manual) 0.2 L Monocytes # (Manual) 1.0 H PT INR APTT ABG pH ABG pO2 57.9 L ABG HCO3 ABG O2 Saturation 89.9 L ABG Base Excess ABG Hemoglobin 10.3 L Oxyhemoglobin 87.9 L Sodium Potassium Chloride 90.9 L Carbon Dioxide BUN 50 H Creatinine 4.2 H Glucose 175 H POC Glucose Phosphorus Magnesium Troponin T NT-Pro-B Natriuret Pep Triglycerides Cholesterol LDL Cholesterol Direct HDL Cholesterol TSH Free T4 05/11/19 05/11/19 05/11/19 05:36 12:00 13:00 WBC RBC Hgb Hct RDW Plt Count Lymph % (Auto) [place] % (Auto) Lymph # Seg Neutrophils % Seg Neuts % (Manual) Lymphocytes % (Manual) Nucleated RBC % Seg Neutrophils # Seg Neutrophils # Man Lymphocytes # (Manual) Monocytes # (Manual) PT INR APTT ABG pH ABG pO2 ABG HCO3 ABG O2 Saturation ABG Base Excess ABG Hemoglobin Oxyhemoglobin Sodium Potassium Chloride Carbon Dioxide BUN Creatinine Glucose POC Glucose 147 H 318 H Phosphorus Magnesium 1.50 L Troponin T NT-Pro-B Natriuret Pep Triglycerides Cholesterol LDL Cholesterol Direct HDL Cholesterol TSH Free T4 05/11/19 05/11/19 05/11/19 13:00 13:00 18:00 WBC RBC Hgb Hct RDW Plt Count Lymph % (Auto) [place] % (Auto) Lymph # Seg Neutrophils % Seg Neuts % (Manual) Lymphocytes % (Manual) Nucleated RBC % Seg Neutrophils # Seg Neutrophils # Man Lymphocytes # (Manual) Monocytes # (Manual) PT INR APTT ABG pH ABG pO2 ABG HCO3 ABG O2 Saturation ABG Base Excess ABG Hemoglobin Oxyhemoglobin Sodium Potassium Chloride Carbon Dioxide BUN Creatinine Glucose POC Glucose 237 H Phosphorus Magnesium Troponin T NT-Pro-B Natriuret Pep Triglycerides Cholesterol LDL Cholesterol Direct HDL Cholesterol TSH 0.220 L Free T4 0.70 L 05/11/19 05/12/19 05/12/19 23:49 03:50 04:35 WBC 17.5 H RBC Hgb Hct RDW 17.0 H Plt Count 119 L Lymph % (Auto) [place] % (Auto) Lymph # Seg Neutrophils % Seg Neuts % (Manual) 98.0 H Lymphocytes % (Manual) 1.0 L Nucleated RBC % Seg Neutrophils # Seg Neutrophils # Man 17.2 H Lymphocytes # (Manual) 0.2 L Monocytes # (Manual) PT INR APTT ABG pH ABG pO2 ABG HCO3 ABG O2 Saturation ABG Base Excess ABG Hemoglobin Oxyhemoglobin Sodium Potassium Chloride Carbon Dioxide BUN Creatinine Glucose POC Glucose 117 H 225 H Phosphorus Magnesium Troponin T NT-Pro-B Natriuret Pep Triglycerides Cholesterol LDL Cholesterol Direct HDL Cholesterol TSH Free T4 05/12/19 05/12/19 05/12/19 04:35 04:36 05:51 WBC RBC Hgb Hct RDW Plt Count Lymph % (Auto) [place] % (Auto) Lymph # Seg Neutrophils % Seg Neuts % (Manual) Lymphocytes % (Manual) Nucleated RBC % Seg Neutrophils # Seg Neutrophils # Man Lymphocytes # (Manual) Monocytes # (Manual) PT INR APTT ABG pH ABG pO2 79.4 L ABG HCO3 ABG O2 Saturation ABG Base Excess ABG Hemoglobin 10.9 L Oxyhemoglobin 94.0 L Sodium 130 L D Potassium 5.9 H D Chloride 85.0 L Carbon Dioxide 19 L BUN 81 H Creatinine 5.7 H Glucose 228 H POC Glucose 274 H Phosphorus Magnesium Troponin T NT-Pro-B Natriuret Pep Triglycerides Cholesterol LDL Cholesterol Direct HDL Cholesterol TSH Free T4 05/12/19 05/12/19 05/12/19 11:30 18:11 23:53 WBC RBC Hgb Hct RDW Plt Count Lymph % (Auto) [place] % (Auto) Lymph # Seg Neutrophils % Seg Neuts % (Manual) Lymphocytes % (Manual) Nucleated RBC % Seg Neutrophils # Seg Neutrophils # Man Lymphocytes # (Manual) Monocytes # (Manual) PT INR APTT ABG pH ABG pO2 ABG HCO3 ABG O2 Saturation ABG Base Excess ABG Hemoglobin Oxyhemoglobin Sodium Potassium Chloride Carbon Dioxide BUN Creatinine Glucose POC Glucose 146 H 307 H 266 H Phosphorus Magnesium Troponin T NT-Pro-B Natriuret Pep Triglycerides Cholesterol LDL Cholesterol Direct HDL Cholesterol TSH Free T4 05/13/19 05/13/19 05/13/19 04:30 04:30 05:24 WBC 17.4 H RBC 3.48 L Hgb 10.0 L Hct RDW 17.0 H Plt Count 122 L Lymph % (Auto) [place] % (Auto) Lymph # Seg Neutrophils % Seg Neuts % (Manual) 97.0 H Lymphocytes % (Manual) 1.0 L Nucleated RBC % Seg Neutrophils # Seg Neutrophils # Man 16.9 H Lymphocytes # (Manual) 0.2 L Monocytes # (Manual) PT INR APTT ABG pH ABG pO2 ABG HCO3 ABG O2 Saturation ABG Base Excess ABG Hemoglobin Oxyhemoglobin Sodium 136 L Potassium Chloride 92.4 L Carbon Dioxide BUN 61 H Creatinine 4.6 H Glucose 198 H POC Glucose 182 H Phosphorus Magnesium Troponin T NT-Pro-B Natriuret Pep Triglycerides Cholesterol LDL Cholesterol Direct HDL Cholesterol TSH Free T4 05/13/19 05/13/19 05/13/19 12:01 12:27 18:35 WBC RBC Hgb Hct RDW Plt Count Lymph % (Auto) [place] % (Auto) Lymph # Seg Neutrophils % Seg Neuts % (Manual) Lymphocytes % (Manual) Nucleated RBC % Seg Neutrophils # Seg Neutrophils # Man Lymphocytes # (Manual) Monocytes # (Manual) PT INR APTT 23.5 L ABG pH ABG pO2 ABG HCO3 ABG O2 Saturation ABG Base Excess ABG Hemoglobin Oxyhemoglobin Sodium Potassium Chloride Carbon Dioxide BUN Creatinine Glucose POC Glucose 243 H 294 H Phosphorus Magnesium Troponin T NT-Pro-B Natriuret Pep Triglycerides Cholesterol LDL Cholesterol Direct HDL Cholesterol TSH Free T4 05/13/19 05/13/19 05/14/19 22:15 23:29 05:21 WBC 16.3 H RBC 3.55 L Hgb Hct RDW 16.8 H Plt Count 118 L Lymph % (Auto) [place] % (Auto) Lymph # Seg Neutrophils % Seg Neuts % (Manual) 93.0 H Lymphocytes % (Manual) 0 L Nucleated RBC % Seg Neutrophils # Seg Neutrophils # Man 15.2 H Lymphocytes # (Manual) 0.0 L Monocytes # (Manual) PT INR APTT ABG pH ABG pO2 ABG HCO3 ABG O2 Saturation ABG Base Excess ABG Hemoglobin Oxyhemoglobin Sodium Potassium Chloride Carbon Dioxide BUN Creatinine Glucose POC Glucose 228 H 201 H Phosphorus Magnesium Troponin T NT-Pro-B Natriuret Pep Triglycerides Cholesterol LDL Cholesterol Direct HDL Cholesterol TSH Free T4 05/14/19 05/14/19 05/14/19 05:21 05:42 13:06 WBC RBC Hgb Hct RDW Plt Count Lymph % (Auto) [place] % (Auto) Lymph # Seg Neutrophils % Seg Neuts % (Manual) Lymphocytes % (Manual) Nucleated RBC % Seg Neutrophils # Seg Neutrophils # Man Lymphocytes # (Manual) Monocytes # (Manual) PT INR APTT ABG pH ABG pO2 ABG HCO3 ABG O2 Saturation ABG Base Excess ABG Hemoglobin Oxyhemoglobin Sodium Potassium Chloride 92.2 L Carbon Dioxide 18 L BUN 79 H Creatinine 5.7 H Glucose 243 H POC Glucose 236 H 172 H Phosphorus Magnesium Troponin T NT-Pro-B Natriuret Pep Triglycerides Cholesterol LDL Cholesterol Direct HDL Cholesterol TSH Free T4 05/14/19 05/15/19 05/15/19 17:49 00:31 05:38 WBC RBC Hgb Hct RDW Plt Count Lymph % (Auto) [place] % (Auto) Lymph # Seg Neutrophils % Seg Neuts % (Manual) Lymphocytes % (Manual) Nucleated RBC % Seg Neutrophils # Seg Neutrophils # Man Lymphocytes # (Manual) Monocytes # (Manual) PT INR APTT ABG pH ABG pO2 ABG HCO3 ABG O2 Saturation ABG Base Excess ABG Hemoglobin Oxyhemoglobin Sodium Potassium Chloride Carbon Dioxide BUN Creatinine Glucose POC Glucose 215 H 276 H 275 H Phosphorus Magnesium Troponin T NT-Pro-B Natriuret Pep Triglycerides Cholesterol LDL Cholesterol Direct HDL Cholesterol TSH Free T4 05/15/19 05/15/19 05/15/19 07:15 07:15 13:44 WBC 15.6 H RBC 3.22 L Hgb 9.2 L Hct 28.9 L RDW 16.6 H Plt Count 91 L Lymph % (Auto) 0.4 L [place] % (Auto) Lymph # 0.1 L Seg Neutrophils % 98.7 H Seg Neuts % (Manual) Lymphocytes % (Manual) Nucleated RBC % Seg Neutrophils # 15.4 H Seg Neutrophils # Man Lymphocytes # (Manual) Monocytes # (Manual) PT INR APTT ABG pH ABG pO2 ABG HCO3 ABG O2 Saturation ABG Base Excess ABG Hemoglobin Oxyhemoglobin Sodium 135 L Potassium 3.5 L Chloride 94.1 L Carbon Dioxide 21 L BUN 37 H Creatinine 3.3 H Glucose 299 H POC Glucose 285 H Phosphorus Magnesium Troponin T NT-Pro-B Natriuret Pep Triglycerides Cholesterol LDL Cholesterol Direct HDL Cholesterol TSH Free T4 05/15/19 05/16/19 05/16/19 18:56 00:29 05:38 WBC RBC Hgb Hct RDW Plt Count Lymph % (Auto) [place] % (Auto) Lymph # Seg Neutrophils % Seg Neuts % (Manual) Lymphocytes % (Manual) Nucleated RBC % Seg Neutrophils # Seg Neutrophils # Man Lymphocytes # (Manual) Monocytes # (Manual) PT INR APTT ABG pH ABG pO2 ABG HCO3 ABG O2 Saturation ABG Base Excess ABG Hemoglobin Oxyhemoglobin Sodium Potassium Chloride Carbon Dioxide BUN Creatinine Glucose POC Glucose 213 H 270 H 289 H Phosphorus Magnesium Troponin T NT-Pro-B Natriuret Pep Triglycerides Cholesterol LDL Cholesterol Direct HDL Cholesterol TSH Free T4 05/16/19 05/16/19 05/16/19 12:38 18:03 23:19 WBC RBC Hgb Hct RDW Plt Count Lymph % (Auto) [place] % (Auto) Lymph # Seg Neutrophils % Seg Neuts % (Manual) Lymphocytes % (Manual) Nucleated RBC % Seg Neutrophils # Seg Neutrophils # Man Lymphocytes # (Manual) Monocytes # (Manual) PT INR APTT ABG pH ABG pO2 ABG HCO3 ABG O2 Saturation ABG Base Excess ABG Hemoglobin Oxyhemoglobin Sodium Potassium Chloride Carbon Dioxide BUN Creatinine Glucose POC Glucose 216 H 308 H 345 H Phosphorus Magnesium Troponin T NT-Pro-B Natriuret Pep Triglycerides Cholesterol LDL Cholesterol Direct HDL Cholesterol TSH Free T4 05/17/19 05/17/19 05/17/19 05:52 11:20 15:08 WBC 14.6 H RBC 3.31 L Hgb 9.5 L Hct 29.8 L RDW 17.2 H Plt Count 79 L Lymph % (Auto) [place] % (Auto) Lymph # Seg Neutrophils % Seg Neuts % (Manual) Lymphocytes % (Manual) Nucleated RBC % Seg Neutrophils # Seg Neutrophils # Man Lymphocytes # (Manual) Monocytes # (Manual) PT INR APTT ABG pH ABG pO2 ABG HCO3 ABG O2 Saturation ABG Base Excess ABG Hemoglobin Oxyhemoglobin Sodium Potassium Chloride Carbon Dioxide BUN Creatinine Glucose POC Glucose 454 H 162 H Phosphorus Magnesium Troponin T NT-Pro-B Natriuret Pep Triglycerides Cholesterol LDL Cholesterol Direct HDL Cholesterol TSH Free T4 05/17/19 05/17/19 05/17/19 15:08 17:41 21:30 WBC RBC Hgb Hct RDW Plt Count Lymph % (Auto) [place] % (Auto) Lymph # Seg Neutrophils % Seg Neuts % (Manual) Lymphocytes % (Manual) Nucleated RBC % Seg Neutrophils # Seg Neutrophils # Man Lymphocytes # (Manual) Monocytes # (Manual) PT INR APTT ABG pH ABG pO2 ABG HCO3 ABG O2 Saturation ABG Base Excess ABG Hemoglobin Oxyhemoglobin Sodium 132 L Potassium Chloride 95.1 L Carbon Dioxide BUN 45 H Creatinine 2.6 H Glucose 210 H POC Glucose 337 H 264 H Phosphorus Magnesium Troponin T NT-Pro-B Natriuret Pep Triglycerides Cholesterol LDL Cholesterol Direct HDL Cholesterol TSH Free T4 05/18/19 06:46 WBC RBC Hgb Hct RDW Plt Count Lymph % (Auto) [place] % (Auto) Lymph # Seg Neutrophils % Seg Neuts % (Manual) Lymphocytes % (Manual) Nucleated RBC % Seg Neutrophils # Seg Neutrophils # Man Lymphocytes # (Manual) Monocytes # (Manual) PT INR APTT ABG pH ABG pO2 ABG HCO3 ABG O2 Saturation ABG Base Excess ABG Hemoglobin Oxyhemoglobin Sodium Potassium Chloride Carbon Dioxide BUN Creatinine Glucose POC Glucose 220 H Phosphorus Magnesium Troponin T NT-Pro-B Natriuret Pep Triglycerides Cholesterol LDL Cholesterol Direct HDL Cholesterol TSH Free T4
[2019-05-18] MEDS ORDERED: INSULIN GLARGINE 100 UNITS/ML SUB-Q ONE (10:00)
[2019-05-18] MEDS: ASPIRIN 81 MG TAB CHEW PO SCH (10:10)
[2019-05-18] MEDS: busPIRone 10 MG TAB PO SCH (10:10)
[2019-05-18] MEDS: AMIODARONE 200 MG TAB PO SCH (10:11)
--- NOTE | 2019-05-18 10:36 | Progress Note ---
Assessment and Plan Impression: * End stage renal disease * Acute on chronic hypoxic respiratory failure --wears 2-3L NC oxygen at home * COPD exacerbation * Chronic diastolic heart failure * Hypertension by history * Hypotension * Anemia secondary to ESRD * Secondary hyperparathyroidism * Acidosis * Hyperkalemia * Atrial fibrillation Plan: * Continue MWF schedule for HD, due tomorrow * Holding bp meds, continue pressors prn for MAP>65 * s/p trach and PEG * UF as tolerated with HD, have been limiting due to hypotension * Vent management per pulmonary medicine * Dose medications for renal function * Epogen TIW prn * Nutrition per primary team Subjective Date of service: 05/18/19 Principal diagnosis: Acute resp failure,COPd exacerbation Interval history: No acute changes noted per chart review. No issues noted per dialysis nursing yesterday. Objective - Exam Narrative Exam: General appearance: intubated, frail EENT: trach noted Respiratory: coarse breath sounds noted Cardiology: regular, S1S2 Gastrointestinal: hypoactive bowel sounds, PEG tube noted Integumentary: no rash, warm and dry Musculoskeletal: other (no edema) Neuro: agitated - Vital Signs Vital signs: Vital Signs - 12hr 05/17/19 05/17/19 05/17/19 23:00 23:06 23:57 Temperature Pulse Rate 102 H 102 H 93 H Pulse Rate [ Anterior Bilateral Throughout] Pulse Rate [ From Monitor] Respiratory 26 H 28 H Rate Respiratory Rate [Anterior Bilateral Throughout] Blood Pressure 173/92 173/92 173/92 O2 Sat by Pulse 99 100 99 Oximetry O2 Sat by Pulse Oximetry [ Assessment] 05/18/19 05/18/19 05/18/19 00:00 00:38 01:00 Temperature Pulse Rate 100 H 88 105 H Pulse Rate [ Anterior Bilateral Throughout] Pulse Rate [ 103 H From Monitor] Respiratory 26 H 28 H Rate Respiratory Rate [Anterior Bilateral Throughout] Blood Pressure 183/97 183/97 189/93 O2 Sat by Pulse 98 98 Oximetry O2 Sat by Pulse Oximetry [ Assessment] 05/18/19 05/18/19 05/18/19 01:36 02:00 03:00 Temperature 98.3 F Pulse Rate 96 H 94 H Pulse Rate [ Anterior Bilateral Throughout] Pulse Rate [ From Monitor] Respiratory 25 H 24 Rate Respiratory Rate [Anterior Bilateral Throughout] Blood Pressure 189/93 117/65 O2 Sat by Pulse 100 Oximetry O2 Sat by Pulse Oximetry [ Assessment] 05/18/19 05/18/19 05/18/19 03:34 04:00 04:35 Temperature Pulse Rate 98 H 80 Pulse Rate [ Anterior Bilateral Throughout] Pulse Rate [ 95 H From Monitor] Respiratory 26 H Rate Respiratory Rate [Anterior Bilateral Throughout] Blood Pressure 101/66 101/66 O2 Sat by Pulse 100 100 Oximetry O2 Sat by Pulse 100 Oximetry [ Assessment] 05/18/19 05/18/19 05/18/19 04:53 05:00 06:00 Temperature 98.3 F Pulse Rate 91 H 98 H Pulse Rate [ Anterior Bilateral Throughout] Pulse Rate [ From Monitor] Respiratory 18 29 H Rate Respiratory Rate [Anterior Bilateral Throughout] Blood Pressure 198/88 156/92 O2 Sat by Pulse 98 99 Oximetry O2 Sat by Pulse Oximetry [ Assessment] 05/18/19 05/18/19 05/18/19 07:00 07:15 07:16 Temperature Pulse Rate 98 H 96 H 96 H Pulse Rate [ Anterior Bilateral Throughout] Pulse Rate [ From Monitor] Respiratory 24 Rate Respiratory Rate [Anterior Bilateral Throughout] Blood Pressure 156/95 156/95 156/95 O2 Sat by Pulse 98 Oximetry O2 Sat by Pulse Oximetry [ Assessment] 05/18/19 05/18/19 05/18/19 08:00 08:10 08:11 Temperature Pulse Rate 98 H 98 H Pulse Rate [ 99 H Anterior Bilateral Throughout] Pulse Rate [ From Monitor] Respiratory 29 H Rate Respiratory 24 Rate [Anterior Bilateral Throughout] Blood Pressure 170/88 170/88 O2 Sat by Pulse 96 99 Oximetry O2 Sat by Pulse 99 Oximetry [ Assessment] - Lab 05/17/19 15:08 05/17/19 15:08 Most recent lab results ABG pH 7.388 pH Units (7.350-7.450) 05/12/19 04:36 ABG pCO2 38.5 mm Hg 05/12/19 04:36 ABG pO2 79.4 mm Hg (80.0-90.0) L 05/12/19 04:36 ABG HCO3 22.7 mmol/L (20.0-26.0) 05/12/19 04:36 ABG O2 Saturation 96.0 % (95.0-99.0) 05/12/19 04:36 Calcium 9.0 mg/dL (8.4-10.2) 05/17/19 15:08 Phosphorus 12.90 mg/dL (2.5-4.5) H 05/03/19 09:44 Magnesium 1.50 mg/dL (1.7-2.3) L 05/11/19 13:00 Medications & Allergies - Medications Allergies/Adverse Reactions: Allergies latex Allergy (Verified 02/05/19 13:51) Hives milk Allergy (Verified 02/05/19 13:51) Rash Home Medications: Home Medications Medication Instructions Recorded Confirmed Last Taken Type Metoprolol [Lopressor TAB] 50 mg PO BID #60 tablet 01/27/18 05/03/19 04/11/19 Rx Montelukast [Singulair] 10 mg PO QPM #30 tablet 01/27/18 05/03/19 04/11/19 Rx Pravastatin [Pravachol] 40 mg PO QHS #30 tablet 01/27/18 05/03/19 04/11/19 Rx allopurinoL [Zyloprim] 100 mg PO QDAY #30 tablet 01/27/18 05/03/19 04/11/19 Rx Famotidine [Pepcid] 20 mg PO BID 06/17/18 05/03/19 04/11/19 History Fluticasone/Vilanterol [Breo 1 each IH BID #1 blst.w.dev 12/31/18 05/03/19 04/11/19 Rx Ellipta 200-25 Mcg INH] Tiotropium [place] [Spiriva 4 gm IH DAILY #1 mist.inhal 12/31/18 05/03/19 04/11/19 Rx Respimat] Aspirin EC [Halfprin EC] 81 mg PO QDAY #30 tablet.dr 02/18/19 05/03/19 04/11/19 Rx ISOSORBIDE MONOnitrate [Imdur ER] 30 mg PO QDAY #30 tablet 02/18/19 05/03/19 Unknown Rx glipiZIDE [Glucotrol] 5 mg PO QDAY #30 tablet 02/18/19 05/03/19 Unknown Rx ALBUTEROL NEB's [Proventil 0.083% 2.5 mg IH Q4HRT PRN #30 nebu 04/15/19 05/03/19 Unknown Rx NEBS] Furosemide [Lasix] 20 mg PO QDAY #30 tablet 04/15/19 05/03/19 Unknown Rx Ipratropium/Albuterol Sulfate 2 puff IH BID #1 unit 04/15/19 05/03/19 Unknown Rx [Combivent Respimat] Olanzapine/Fluoxetine HCl [Symbyax 1 each PO QHS #30 capsule 04/15/19 05/03/19 Unknown Rx 3-25 mg] Sodium Bicarbonate 650 mg PO BID #60 tablet 04/15/19 05/03/19 Unknown Rx amLODIPine 10 mg PO DAILY #30 tablet 04/15/19 05/03/19 Unknown Rx cefUROXime [Ceftin] 250 mg PO Q12H #14 tablet 04/15/19 05/03/19 Unknown Rx predniSONE [Deltasone] 1 tab PO QDAY #91 tab 04/15/19 05/03/19 Unknown Rx traMADoL [Ultram 50 MG tab] 50 mg PO Q8H PRN #15 tab 04/15/19 05/03/19 04/11/19 Rx Active Medications: Generic Name Dose Route Start Last Admin Trade Name Freq PRN Reason Stop Dose Admin Acetaminophen 650 mg 04/30/19 17:44 05/05/19 15:22 Tylenol PO 650 mg Q4H PRN Administration Pain MILD(1-3)/Fever >100.5/HERRMANN Albuterol 2.5 mg 04/30/19 18:32 05/02/19 04:49 Proventil IH 2.5 mg Q3H PRN Administration Shortness Of Breath Albuterol/Ipratropium 1 ampul 05/11/19 14:00 05/18/19 08:05 Duoneb *Not For Prn Use* IH 1 ampul TIDRT KVNG Administration Amiodarone HCl 200 mg 05/12/19 10:00 05/17/19 10:18 Cordarone PO 200 mg QDAY KVNG Administration Lipase/Protease/Amylase 1 each 05/04/19 14:58 Pancrejessica Gould 10,500 Unit FEEDTUBE PRN PRN For Clogged Feeding Tube Arformoterol Tartrate 15 mcg 05/01/19 08:00 05/18/19 08:09 Иван Hebert IH Not Given Q12HRT KVNG Aspirin 81 mg 05/11/19 10:00 05/17/19 10:21 Baby Aspirin PO 81 mg QDAY KVNG Administration Budesonide 0.5 mg 05/03/19 11:00 05/18/19 08:05 Pulmicort IH 0.5 mg Q12HRT KVNG Administration Buspirone HCl 15 mg 05/04/19 10:00 05/17/19 22:12 Buspar PO 15 mg BID KVNG Administration Diltiazem HCl 60 mg 05/15/19 18:00 05/18/19 07:16 Cardizem PO 60 mg Q6HR KVNG Administration Famotidine 20 mg 05/17/19 10:00 05/17/19 10:18 Pepcid PO 20 mg DAILY KVNG Administration Fentanyl 50 mcg 05/11/19 10:00 05/18/19 02:38 Sublimaze IV 50 mcg Q2H PRN Administration AGITATION Hydralazine HCl 5 mg 05/01/19 22:47 05/16/19 10:35 Apresoline IV 5 mg Q6HR PRN Administration SBP > 160 AND/OR DBP > 100 Hydralazine HCl 50 mg 05/16/19 14:00 05/18/19 07:15 Apresoline PO 50 mg Q8HR [facility] Administration Hydrophilic Ointment 1 applic 05/04/19 09:42 Vaseline Lip Therapy TP Q2HR PRN Dry Lips Sodium Chloride 100 mls @ 999 mls/hr 05/17/19 08:09 Nacl 0.9% IV ALBINO PRN Hypotension Insulin Glargine 30 units 05/18/19 22:00 Lantus SUB-Q QHS [facility] Insulin Human Lispro 0 unit 05/05/19 18:00 05/18/19 07:12 Humalog SUB-Q 4 unit Q6HR [facility] Administration Protocol Lorazepam 1 mg 05/02/19 11:08 05/17/19 08:18 Ativan IV 1 mg Q4H PRN Administration Anxiety Methylprednisolone Sodium Succinate 20 mg 05/17/19 08:29 05/18/19 08:31 Solu-Medrol IV 20 mg Q8H [facility] Administration Montelukast Sodium 10 mg 04/30/19 19:00 05/17/19 17:39 Singulair PO 10 mg QPM KVNG Administration Multi-Ingred Cream/Lotion/Oil/Oint 1 applic 05/04/19 09:42 Artificial Tears Ophth Oint OU Q4HR PRN Dry Eye(s) Pravastatin Sodium 40 mg 04/30/19 22:00 05/17/19 22:13 Pravachol PO 40 mg QHS KVNG Administration Simple Syrup 15 ml 05/04/19 14:58 Simple Syrup FEEDTUBE PRN PRN Hypoglycemia Simple Syrup 30 ml 05/04/19 14:58 Simple Syrup FEEDTUBE PRN PRN Hypoglycemia Sodium Bicarbonate 325 mg 05/04/19 14:58 Sodium Bicarbonate FEEDTUBE PRN PRN For Clogged Feeding Tube Sodium Chloride 10 ml 04/30/19 22:00 05/17/19 22:13 Sodium Chloride Flush Syringe 10 Ml IV 10 ml BID KVNG Administration Sodium Chloride 10 ml 04/30/19 17:44 05/15/19 09:53 Sodium Chloride Flush Syringe 10 Ml IV 10 ml PRN PRN Administration LINE FLUSH
[2019-05-18] MEDS: FAMOTIDINE 20 MG TAB PO SCH (11:10)
--- NOTE | 2019-05-18 11:21 | Progress Note ---
Assessment and Plan Paroxysmal Afib -currently in sinus rhythm -on amiodarone and diltiazem for suppression -patient is not a candidate for intermediate frame tender oral anticoagulation. Respiratory failure -s/p vent to trach ESRD on hemodialysis Severe COPD Hx of coronary artery disease s/p CABG in 2006 Mild cardiomyopathy echocardiogram done 01/2018 reports an ejection fraction of 40-45%. echocardiogram 12/2018 reports an ejection fraction 45-50%. MPI 12/2018 - fixed basal lateral wall defect, no ischemia Hyperlipidemia History of DVT -not on anticoagulation secondary to hematuria Recommendations: Continue cardizem. We will increase amiodarone for suppression of atrial fibrillation. Otherwise, conservative cardiac management. Subjective Date of service: 05/18/19 Principal diagnosis: Acute resp failure,COPd exacerbation Interval history: Patient with intermittent afib on telemetry. Objective Vital Signs Temp Pulse Pulse Pulse Resp Resp BP 05/18/19 11:11 102 H 151/88 05/18/19 08:11 98 H 170/88 05/18/19 08:10 99 H 24 05/18/19 08:00 98.2 F 98 H 29 H 170/88 05/18/19 07:16 96 H 156/95 05/18/19 07:15 96 H 156/95 05/18/19 07:00 98 H 24 156/95 05/18/19 06:00 98 H 29 H 156/92 05/18/19 05:00 91 H 18 198/88 05/18/19 04:53 98.3 F 05/18/19 04:35 80 101/66 05/18/19 04:00 98 H 95 H 26 H 101/66 05/18/19 03:34 05/18/19 03:00 94 H 24 117/65 05/18/19 02:00 96 H 25 H 189/93 05/18/19 01:36 98.3 F 05/18/19 01:00 105 H 28 H 189/93 05/18/19 00:38 88 183/97 05/18/19 00:00 100 H 103 H 26 H 183/97 05/17/19 23:57 93 H 173/92 05/17/19 23:06 102 H 28 H 173/92 05/17/19 23:00 102 H 26 H 173/92 05/17/19 22:30 98.3 F 05/17/19 22:09 95 H 186/93 05/17/19 22:00 105 H 26 H 186/93 05/17/19 21:00 97 H 24 174/80 05/17/19 20:48 97 H 25 H 05/17/19 20:45 86 167/83 05/17/19 20:00 96 H 95 H 26 H 166/76 05/17/19 19:00 100 H 28 H 179/89 05/17/19 18:00 93 H 27 H 149/90 05/17/19 17:38 84 153/90 05/17/19 17:00 79 24 97/55 05/17/19 16:31 84 180/87 05/17/19 16:00 97.0 F L 95 H 81 22 195/87 05/17/19 15:00 98 H 25 H 187/94 05/17/19 14:00 100 H 25 H 167/95 05/17/19 13:39 97 H 181/97 05/17/19 13:21 89 24 05/17/19 13:00 83 24 144/75 05/17/19 12:35 86 127/79 05/17/19 12:00 97.5 F L 85 81 21 118/65 Pulse Ox Pulse Ox 05/18/19 11:11 05/18/19 08:11 99 05/18/19 08:10 05/18/19 08:00 96 99 05/18/19 07:16 05/18/19 07:15 05/18/19 07:00 98 05/18/19 06:00 99 05/18/19 05:00 98 05/18/19 04:53 05/18/19 04:35 100 05/18/19 04:00 100 05/18/19 03:34 100 05/18/19 03:00 05/18/19 02:00 100 05/18/19 01:36 05/18/19 01:00 98 05/18/19 00:38 05/18/19 00:00 98 05/17/19 23:57 99 05/17/19 23:06 100 05/17/19 23:00 99 05/17/19 22:30 05/17/19 22:09 05/17/19 22:00 97 05/17/19 21:00 99 05/17/19 20:48 05/17/19 20:45 100 05/17/19 20:00 100 05/17/19 19:00 97 05/17/19 18:00 99 05/17/19 17:38 05/17/19 17:00 05/17/19 16:31 100 05/17/19 16:00 100 100 05/17/19 15:00 98 05/17/19 14:00 99 05/17/19 13:39 05/17/19 13:21 05/17/19 13:00 100 05/17/19 12:35 05/17/19 12:00 100 - Physical Examination General: No Apparent Distress Neck: Positive: Other (vent to trach) Cardiac: Positive: Reg Rate and Rhythm - Labs and Meds CBC 05/17/19 Range/Units 15:08 WBC 14.6 H (4.5-11.0) K/mm3 RBC 3.31 L (3.65-5.03) M/mm3 Hgb 9.5 L (10.1-14.3) gm/dl Hct 29.8 L (30.3-42.9) % Plt Count 79 L (140-440) K/mm3 Comprehensive Metabolic Panel 05/17/19 Range/Units 15:08 Sodium 132 L (137-145) mmol/L Potassium 4.8 D (3.6-5.0) mmol/L Chloride 95.1 L (98-107) mmol/L Carbon Dioxide 22 (22-30) mmol/L BUN 45 H (7-17) mg/dL Creatinine 2.6 H (0.7-1.2) mg/dL Glucose 210 H (65-100) mg/dL Calcium 9.0 (8.4-10.2) mg/dL
[2019-05-18] MEDS ORDERED: AMIODARONE 150 MG in DEXTROSE 5% IN WATER 97 ML IV ONE (12:00)
[2019-05-18 13:18] LABS: Hematocrit 31.2 % (30.3-42.9); Mean Corpuscular HGB Conc 32 % (30-34); Mean Corpuscular Volume 89 fl (79-97); Red Blood Count 3.49 M/mm3 (3.65-5.03); Red Cell Distribution Width 16.4 % (13.2-15.2)
[2019-05-18 13:21] LABS: Platelet Count 77 K/mm3 (140-440)
[2019-05-18 13:34] LABS: Calcium 9.2 mg/dL (8.4-10.2)
[2019-05-18 16:35] VITALS: BP 194/93
--- NOTE | 2019-05-18 16:42 | Discharge Summary ---
Providers - Providers Date of Admission: 04/30/19 13:20 Date of discharge: 05/18/19 Attending physician: KIMBERLY WITT 04/30/19 13:06 Consult to Physician [CONS] Urgent Comment: Consulting Provider: ROBINSON REYEZ Physician Instructions: Reason For Exam: esrd dialysis mwf 04/30/19 17:44 Consult to Physician [CONS] Routine Comment: Consulting Provider: JOHN DUDLEY Physician Instructions: Reason For Exam: resp failure 05/01/19 16:36 Speech Therapy Evaluation and Treat [CONS] Routine Reason For Exam: evaluate abiltity to swallow without aspirating 05/04/19 09:42 Consult to Dietitian/Nutrition [CONS] Routine Physician Instructions: Reason For Exam: Reason for Consult: Evaluate nutritional intake 05/04/19 12:13 Midline [Consult to PICC Line RN] [CONS] Stat Reason For Exam: No IV access Type Line:: Midline 05/04/19 14:47 Consult to Dietitian/Nutrition [CONS] Stat Physician Instructions: Reason For Exam: Reason for Consult: Write/Manage Tube Feeding 05/08/19 12:19 Consult to Physician [CONS] Routine Comment: Consulting Provider: JANELLE REYNOSO Physician Instructions: Reason For Exam: TRACH AND PEG 05/10/19 12:48 Consult to Physician [CONS] Routine Comment: Consulting Provider: KARTHIKEYAN RAMOS Physician Instructions: Reason For Exam: new onset afib, preop trach/peg 05/13/19 11:14 Consult to Interventional Radiology [CONS] Routine Consulting Provider: ODALIS RAMOS Reason For Exam: G tube placement Notified:: Deyvi Ramos Primary care physician: AMY NGUYEN Hospitalization Condition: Stable Hospital course: Patient is a 78 yo AA woman with a history of NE, Diastolic CHF, CAD S/P CABG, DM, Asthma, OA, Anxiety disorder, Chronic Respiratory Failure on 2-3 L Home oxygen due to end stage COPD and ESRD on HD(M,W,F) who presented to [facility] ED on 04/30/2019 with SOB and wheezing for 2 days. Patient was initially placed on BiPAP, nephrology was consulted for hemodialysis, and managed for COPD exacerbation. But her symptoms continue to get worse, and eventually required intubation on 05/04/2019. 05/06: Discussed with cement mason maintenance plan is for extubation. Continue management. 05/07: Discussed with family and cement mason maintenance, will proceed with re-intubation and possible plan for Trach and PEG. Daughter informs that the patient is very anxious and believes that this hampers extubation. Stated that she had discussed with cement mason maintenance to reintubate the patient if she failed extubation. She does understand the process of weaning from ventilation. 05/08: Hyperkalemia, Nephrology managing 05/09: Afib, will optimize, and plan for trach and PEG. Cardiology consult. Pulmonary adjusting vent. No changes clinically. Discussed with Surgery, will plan for Trach and Peg 05/11/19: Still trying to wean vent and vasopressor. Awaiting PEG and trach. Restraints renewed, CCT 32 minutes, 05/12/19: Hemodialysis today, trach and PEG tomorrow. 05/13/19: s/p Trach and PEG, restraints renewed. 05/14/19: Daily MV weaning attempts, Awaiting on LTACH, her insurance requiring 20 day ICU stay, she is 14 days in ICU. Restraint renewed 05/15/19: Still intubated, PEEP 8 FiO2 40%, Restraints renewed. Hyperglycemia should improve with weaning of steroids, currently on Lantus 10u/Humalog SSI 05/16/19: Still Intubated, day ICU stay needed for LTACH. 05/17/19: still intubated, HD today, patient needs 20 day stay for her Insurance to pay for LTACH, renewed restraints, reviewed labs. 05/18/19: DC to LTAC Discharge diagnosis: Acute on chronic hypoxic respiratory failure >96 hours: Atrial Fibrillation with RVR: Acute COPD exacerbation: Anxiety disorder: Hyperglycemia: induced by steroid use. End-stage renal disease: On hemodialysis Friday and Friday, Acute metabolic acidosis: Chronic diastolic heart failure, Hypertension, Anemia of chronic kidney disease: DVT ppx: sq heparin Hospitalist Physical Gen: critically ill, grimacing during HD HEENT: NCAT, ETT in place Neck: supple, no adenopathy, no thyromegaly, no JVD CVS/Heart: irregular irregular, normal S1S2, pulses present bilaterally Chest/Lungs: diminished Symmetrical chest expansion, good air entry bilaterally GI/Abdomen: soft, NTND, good bowel sounds, no guarding or rebound /Bladder: no suprapubic tenderness, no CVA or paraspinal tenderness Extermity/Skin: no c/c/e, no obvious rash MSK: intubated Neuro: intubated Psych: intubated Disposition: DC-30 STILL A PATIENT Time spent for discharge: 34 minutes Core Measure Documentation - Palliative Care Palliative Care/ Comfort Measures: Not Applicable - Core Measures Any of the following diagnoses?: none Exam - Constitutional Vitals: Temp Pulse Resp BP Pulse Ox 98.2 F 92 H 24 194/93 99 05/18/19 12:00 05/18/19 15:40 05/18/19 15:40 05/18/19 15:00 05/18/19 16:00 Plan Activity: other (bedrest) Diet: other (tube feed) Follow up with: AMY NGUYEN MD [Primary Care Provider] - 3-5 Days
[2019-05-18] MEDS ORDERED: INSULIN GLARGINE 100 UNITS/ML SUB-Q SCH (22:00)
[2019-05-18] MEDS ORDERED: AMIODARONE 200 MG TAB PO SCH (22:00)
== END 2019-05-18 16:00 | DRG 4 ==
LOC: ED 09:45 → 2B-ACE 13:20 → CC1 18:01 → IMCU 05-01 22:41 → CC1 05-04 09:46
PROVIDERS: ADMIT Internal Medicine; ATTEND Internal Medicine
PROC: 4A033R1 Measurement of Arterial Saturation, Peripheral, Percutaneous Approach (ICD-10-PCS; 2019-04-30)
PROC: 5A1D70Z Performance of Urinary Filtration, Intermittent, Less than 6 Hours Per Day (ICD-10-PCS; 2019-04-30)
PROC: 5A09357 Assistance with Respiratory Ventilation, Less than 24 Consecutive Hours, Continuous Positive Airway Pressure (ICD-10-PCS; 2019-04-30)
PROC: 5A09357 Assistance with Respiratory Ventilation, Less than 24 Consecutive Hours, Continuous Positive Airway Pressure (ICD-10-PCS; 2019-05-01)
PROC: 5A09357 Assistance with Respiratory Ventilation, Less than 24 Consecutive Hours, Continuous Positive Airway Pressure (ICD-10-PCS; 2019-05-02)
PROC: 5A1D70Z Performance of Urinary Filtration, Intermittent, Less than 6 Hours Per Day (ICD-10-PCS; 2019-05-03)
PROC: 5A09357 Assistance with Respiratory Ventilation, Less than 24 Consecutive Hours, Continuous Positive Airway Pressure (ICD-10-PCS; 2019-05-03)
PROC: 5A1955Z Respiratory Ventilation, Greater than 96 Consecutive Hours (ICD-10-PCS; principal; 2019-05-04)
PROC: 0BH17EZ Insertion of Endotracheal Airway into Trachea, Via Natural or Artificial Opening (ICD-10-PCS; 2019-05-04)
PROC: 05HY33Z Insertion of Infusion Device into Upper Vein, Percutaneous Approach (ICD-10-PCS; 2019-05-04)
PROC: 5A09357 Assistance with Respiratory Ventilation, Less than 24 Consecutive Hours, Continuous Positive Airway Pressure (ICD-10-PCS; 2019-05-04)
PROC: 5A1D70Z Performance of Urinary Filtration, Intermittent, Less than 6 Hours Per Day (ICD-10-PCS; 2019-05-05)
PROC: 5A1D70Z Performance of Urinary Filtration, Intermittent, Less than 6 Hours Per Day (ICD-10-PCS; 2019-05-07)
PROC: 5A09357 Assistance with Respiratory Ventilation, Less than 24 Consecutive Hours, Continuous Positive Airway Pressure (ICD-10-PCS; 2019-05-07)
PROC: 5A09357 Assistance with Respiratory Ventilation, Less than 24 Consecutive Hours, Continuous Positive Airway Pressure (ICD-10-PCS; 2019-05-08)
PROC: 5A1D70Z Performance of Urinary Filtration, Intermittent, Less than 6 Hours Per Day (ICD-10-PCS; 2019-05-10)
PROC: 5A1D70Z Performance of Urinary Filtration, Intermittent, Less than 6 Hours Per Day (ICD-10-PCS; 2019-05-12)
PROC: 0B113F4 Bypass Trachea to Cutaneous with Tracheostomy Device, Percutaneous Approach (ICD-10-PCS; 2019-05-13)
PROC: 0DH63UZ Insertion of Feeding Device into Stomach, Percutaneous Approach (ICD-10-PCS; 2019-05-13)
PROC: 0BJ08ZZ Inspection of Tracheobronchial Tree, Via Natural or Artificial Opening Endoscopic (ICD-10-PCS; 2019-05-13)
PROC: 0DJ08ZZ Inspection of Upper Intestinal Tract, Via Natural or Artificial Opening Endoscopic (ICD-10-PCS; 2019-05-13)
PROC: 5A1D70Z Performance of Urinary Filtration, Intermittent, Less than 6 Hours Per Day (ICD-10-PCS; 2019-05-14)
PROC: 5A1D70Z Performance of Urinary Filtration, Intermittent, Less than 6 Hours Per Day (ICD-10-PCS; 2019-05-17)
DX: J44.1 Chronic obstructive pulmonary disease with (acute) exacerbation (principal); I21.A1 Myocardial infarction type 2; N18.6 End stage renal disease; J96.21 Acute and chronic respiratory failure with hypoxia; J96.22 Acute and chronic respiratory failure with hypercapnia; I50.32 Chronic diastolic (congestive) heart failure; I13.2 Hypertensive heart and chronic kidney disease with heart failure and with stage 5 chronic kidney disease, or end stage renal disease; N25.81 Secondary hyperparathyroidism of renal origin; E87.2 Acidosis; J84.9 Interstitial pulmonary disease, unspecified; I48.20 Chronic atrial fibrillation, unspecified; I42.9 Cardiomyopathy, unspecified; Z99.81 Dependence on supplemental oxygen; E87.6 Hypokalemia; M19.90 Unspecified osteoarthritis, unspecified site; F41.8 Other specified anxiety disorders; E11.22 Type 2 diabetes mellitus with diabetic chronic kidney disease; I25.10 Atherosclerotic heart disease of native coronary artery without angina pectoris; E78.2 Mixed hyperlipidemia; E83.111 Hemochromatosis due to repeated red blood cell transfusions; D63.1 Anemia in chronic kidney disease; E11.65 Type 2 diabetes mellitus with hyperglycemia; I95.9 Hypotension, unspecified; D72.829 Elevated white blood cell count, unspecified; I73.9 Peripheral vascular disease, unspecified; K21.9 Gastro-esophageal reflux disease without esophagitis; I48.0 Paroxysmal atrial fibrillation; Z86.718 Personal history of other venous thrombosis and embolism; I25.2 Old myocardial infarction; Z95.1 Presence of aortocoronary bypass graft; Z99.2 Dependence on renal dialysis; Z79.4 Long term (current) use of insulin; Z91.040 Latex allergy status; Z91.018 Allergy to other foods; Z79.899 Other long term (current) drug therapy; Z87.442 Personal history of urinary calculi; Z87.891 Personal history of nicotine dependence; Z82.49 Family history of ischemic heart disease and other diseases of the circulatory system; Z86.73 Personal history of transient ischemic attack (TIA), and cerebral infarction without residual deficits
CPT/HCPCS: 31500; 36415; 36600; 49465; 71045; 74018; 74022; 74176; 80048; 80053; 80061; 80074; 82803; 82962; 83036; 83735; 83880; 84100; 84439; 84443; 84478; 84484; 85007; 85025; 85027; 85610; 85730; 87070; 87205; 93005; 93010; 94002; 94003; 94640; 94644; 94660; 94770; 96365; G0378; A9270-GY; J0282; J0360; J1170; J1630; J1644; J1815; J1940; J1956; J2060; J2250; J2370; J2704; J2765; J2930; J3010; J3475; J7030; J7050; P9047; Q9967